=== PATIENT | female | born 1960 | race Caucasian/White ===

== ENCOUNTER 2020-09-04 05:53 | Outpatient (CLI) | payer BC ==
[~2020-09-04] VITALS: Ht 165.1 cm; Wt 72.7 kg
[~2020-09-04 05:53] MED LIST: ACET-461 PO; ALPR0.25 PO; CHOL100011 PO; ESTR2TAB PO; HYDR-700 PO; Hydrocodone Bit/Acetaminophen PO; LEVO500T69 PO; LORA10TA76 PO; PRD20T PO; PREDNISONE PO; RABE20TA PO; SERT50TA PO; SIMV40TA4 PO; ZOLP10TA5 PO; [UNRECOGNIZED DRUG - CODE] PO
[2020-09-04] MEDS ORDERED: GUAI-370 PO (13:44)
[2020-09-04] MEDS ORDERED: MULT-1029 PO (13:44)
[2020-09-04] MEDS ORDERED: OMEG-82 PO (13:44)
[2020-09-04] MEDS ORDERED: PHEN37.53 PO (13:44)
[2020-09-04] MEDS ORDERED: MULT-985 PO (13:44)
[2020-09-04] MEDS ORDERED: L.AC1CAP6 PO (13:44)
[2020-09-04] MEDS ORDERED: MAGN1TAB31 PO (13:44)
[2020-09-04] MEDS ORDERED: OMEP20TA7 PO (13:44)
[2020-09-04] MEDS ORDERED: ACET325T38 PO (13:44)
[2020-09-04] MEDS ORDERED: DIPH25CA79 PO (13:44)
[2020-09-04] MEDS ORDERED: MELO15TA14 PO (13:44)
== END 2020-09-04 13:51 | disposition home or self-care (01) ==
LOC: PREOP 05:53
PROVIDERS: ATTEND Podiatrist Foot & Ankle Surgery
DX: Z01.818 Encounter for other preprocedural examination (principal)

== ENCOUNTER 2020-09-11 05:56 | Day surgery (SDC) | payer BC ==
[~2020-09-11] VITALS: Ht 165 cm; Wt 72.7 kg
[2020-09-11] VITALS (10 sets, daily range): BP systolic 111–128; BP diastolic 68–94
[~2020-09-11 05:56] MED LIST changes: +ACET325T38 PO; +DIPH25CA79 PO; +GUAI-370 PO; +L.AC1CAP6 PO; +MAGN1TAB31 PO; +MELO15TA14 PO; +MULT-1029 PO; +MULT-985 PO; +OMEG-82 PO; +OMEP20TA7 PO; +PHEN37.58 PO
[2020-09-11] MEDS ORDERED: ceFAZolin INJECTION 1,000 MG in WATER (STERILE) FOR INJECTION 10 ML IV ONE (06:15)
[2020-09-11] MEDS: LACTATED RINGERS 1,000 ML IV PRN ×2 (06:23→08:43)
[2020-09-11] MEDS ORDERED: LIDOCAINE 1% INJ 20 ML 20 ML VIAL ONE (07:16)
[2020-09-11] MEDS ORDERED: BUPIVACAINE 0.5% 30 ML (SENSORCAINE) VIAL ONE (07:16)
[2020-09-11] MEDS ORDERED: fentaNYL INJ 100 MCG/2 ML AMP ONE (07:23)
[2020-09-11] MEDS ORDERED: proPOfol 200 MG/20 ML (DIPRIVAN) VIAL IV ONE (07:23)
[2020-09-11] MEDS ORDERED: MIDAZOLAM 2 MG/2 ML (VERSED) VIAL ONE (07:23)
[2020-09-11] MEDS ORDERED: ONDANSETRON 4 MG/2 ML (SDV) Z0FRAN ONE (07:23)
--- NOTE | 2020-09-11 07:47 | Progress Note-Pre Operative ---
Pre-Operative Progress Note H&P Reviewed The H&P was reviewed, patient examined and no changes noted. Date Seen by Provider: Sep 11, 2020 Time Seen by Provider: 07:46 Date H&P Reviewed: Sep 11, 2020 Time H&P Reviewed: 07:46 Pre-Operative Diagnosis: Plantar Fasciitis, right REYMUNDO LAND DPM Sep 11, 2020 07:47
[2020-09-11] MEDS ORDERED: SEVOFLURANE (ULTANE) 15 ML INHAL SOLN ONE (08:27)
--- NOTE | 2020-09-11 08:32 | Progress Note-Post Operative ---
Post-Operative Progess Note Surgeon (s)/Rug Dyer (s) Surgeon REYMUNDO LAND DPM Rug Dyer: none Pre-Operative Diagnosis Plantar Fasciitis, right Post-Operative Diagnosis same Procedure & Operative Findings Date of Procedure 09/11/20 Procedure Performed/Findings Endoscopic Plantar Fascial release, right Anesthesia Type General Estimated Blood Loss Estimated blood loss (mL): minimal Specimens/Packing Specimens Removed none REYMUNDO LAND DPM Sep 11, 2020 08:32
[2020-09-11] MEDS ORDERED: ACHD5005 PO (08:34)
[2020-09-11] MEDS ORDERED: HYDROcodone/APAP 5 MG/325 MG (LORTAB) TAB PO PRN (08:45)
[2020-09-11] MEDS ORDERED: LACTATED RINGERS 1,000 ML IV SCH (08:45)
--- NOTE | 2020-09-11 10:11 | OPERATIVE REPORT ---
DATE OF SERVICE: 09/11/2020 SURGEON: Sabrina Land DPM. PREOPERATIVE DIAGNOSIS: Plantar fasciitis, right. POSTOPERATIVE DIAGNOSIS: Plantar fasciitis, right. PROCEDURE: Endoscopic plantar fascial release, right. WOUND CLASS: Clean. ANESTHESIA: General. HEMOSTASIS: Pneumatic thigh tourniquet at 250 mmHg. INDICATIONS: This 60-year-old female presents complaining of chronic pain to her right heel. Conservative therapy is met with unsatisfactory results and the patient is agreeable to surgical intervention after risks and complications were discussed at length. No guarantees were extended to the patient and she is willing to proceed. DESCRIPTION OF PROCEDURE: The patient was brought back to the operating table, placed in secure supine position. Appropriate timeout was performed. A pneumatic thigh tourniquet was placed on the right lower extremity over several layers of padding. The right foot was then prepped and draped in normal sterile manner. The right foot was then elevated, allowed to exsanguinate after which the tourniquet was inflated to 250 mmHg. Attention was then directed to the medial aspect of the right heel where a 0.5 cm vertical incision was created. The location was preoperatively determined from measurements from the x-ray. The incision was deepened in the same plane with blunt dissection. Utilizing a probe an inferior aspect of the plantar fascia was from the overlying adipose tissue. Next, an obturator and cannula were introduced into the medial incision along the inferior aspect of the plantar fascia tenting the lateral skin where a second incision was created 0.5 cm vertical incision, allowing the obturator and cannula to pass through the lateral aspect of the foot. The cannula was held in place and the obturator was withdrawn after which a 3 mm camera was introduced into the lateral portal visualizing the inferior aspect of the plantar fascia. A hook blade was utilized through the medial portal to release the medial third of the plantar fascia. During this procedure, palpation of the mid arch plantar fascia noted significant reduction of tension to the medial band. Next, a triangular blade was introduced through the medial portal releasing any additional fibers necessary to complete the procedure. This was done under direct visualization. As I said before, there was excellent tension release to the plantar fascia throughout this procedure. The instrumentation was withdrawn from the cannula after which the wound was flushed with copious amounts of normal saline. The cannula was then withdrawn from the foot. The incisions were recoapted utilizing 4-0 Prolene in a horizontal mattress type stitch. Postoperative injection consisted of 10 mL of 0.5% Marcaine infused in a local administration to and surgical sites. Postoperative injection also included 10 mg of dexamethasone to the medial portion of the plantar fascia at the surgical site. Postoperative dressing consisted of Betadine soaked Adaptic, sterile 4 x 4, sterile Kerlix all secured with a Coban wrap. Once the tourniquet was released, appropriate cap refill time was noted to all digits of the right foot. The patient tolerated the procedure well and was transported to the recovery room with vital signs stable. Postoperative instructions were given to the patient. She is to be nonweightbearing for the next 24 hours, then partial weightbearing to tolerance with crutches. She was given a prescription for hydrocodone postoperatively. We will see her back in the office in 10 days' period of time or sooner if necessary. Job ID: [id number] DocumentID: [id number] Dictated Date: 09/11/2020 08:44:16 Video Poker [place] Date: 09/11/2020 10:11:03 Dictated By: SABRINA LAND DPM
--- NOTE | 2020-09-11 10:59 | Physical Therapy Ortho Eval ---
PT Orthopedic Evaluation Type of Surgery Plantar Fasciitis, right Prior Level of Function Current Living Status: Significant Other Locomotion (Upon Admit): Independent Established Durable Medical Eq: Crutches Subjective Entry Into Home: Level Entry Motor Control Motor Control: Motor Control WNL ROM ROM: WFL, except focal deficit Strength Strength: WFL Transfer SCALE: Activities may be completed with or without assistive devices. 9-Rdgncbplhc-pbdvnlp completes the activity by him/herself with no assistance from a helper. 5-Set-up or Clean-up Assistance-helper sets up or cleans up; patient completes activity. [place] assists only prior to or following the activity. 4-Supervision or Touching Assistance-helper provides verbal cues and/or touching/steadying and/or contact guard assistance as patient completes activity. Assistance may be provided throughout the activity or intermittently. 3-Partial/Moderate Assistance-helper does LESS THAN HALF the effort. [place] lifts, holds or supports trunk or limbs, but provides less than half the effort. 2-Substantial/Maximal Assistance-helper does MORE THAN HALF the effort. [place] lifts or holds trunk or limbs and provides more than half the effort. 8-Drqzhuulv-fwdkmz does ALL the effort. Patient does none of the effort to complete the activity. Or, the assistance of 2 or more helpers is required for the patient to complete the activity. If activity was not attempted, code reason: 7-Patient Refused. 9-Not Applicable-not attempted and the patient did not perform the activity before the current illness, exacerbation or injury. 10-Not Attempted due to Environmental Limitations-(lack of equipment, weather restraints, etc.). 88-Not Attempted due to Medical Conditions or Safety Concerns. Transfers (B, C, W/C) (QC): 6 Gait Gait Assistive Device: Crutches Right Lower Extremity: Right Weight Bearing Status RLE: Non Weight Bearing Left Lower Extremity: Left Weight Bearing Status LLE: Full Weight Bearing Other Weight Bearing Inst.: No weight to the right foot for the first 24 hours, then partial weight Gait (QC): 4 (CGA) Distance (QC): 3=150 ft Distance: 150' Gait Level of Assist: 4 (CGA) Treatment Rendered Treatment: Gait Train Assessment/Goals Goal Time Frame: 1 Visit Safe Ambulation: Yes Plan Treatment Plan: Discharge PT/Family Agrees to Plan: Yes Time Time In: 1040 Time Out: 1049 Total Billed Treatment Time: 9 Billed Treatment Time 1 visit EVLowC 9 min SUPRIYA PEREZ PT Sep 11, 2020 10:59
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
--- OUTSIDE RECORDS SUMMARY | 2020-09-15 14:31 | XMS REPORT | Clinical Summary ---
Author Author [facility] Address Unknown Phone Unavailable Care Team Providers Care Interlocker Name Role Phone PCP Unavailable Allergies Comments Active Allergy Reactions Severity Noted Date unknown TORADOL Ketorolac Tromethamine unknown KETEK Telithromycin Medications End Date Status Medication Sig Dispensed Refills Start Date Active omeprazole (PRILOSEC OTC) One orally 0 0 20 MG tablet daily 3 Active zolpidem (AMBIEN) 5 MG One orally at 0 0 0 tablet bedtime as 3 needed for insomnia Active loratadine (CLARITIN) 10 One orally 0 0 0 MG tablet daily as 3 needed for allergies Active Cholecalciferol (D 1000) take 2 by 0 06/13 1000 UNITS CAPS Oral route 1 every day Active DULoxetine (CYMBALTA) 30 One orally 0 0 0 MG capsule daily (pt. is 3 actually taking 90MG) Active .reconcile (MEDICATION No Sig 1 0 LIST IMPORTED) 3 Active Problems Not on file Family History Medical History Relation Name Comments Other Other Father - Cause of D eath:ID Relation Name Status Comments Father (Age 84) Other Social History Date Tobacco Use Types Packs/Day Years Used Never Smoker Sex Assigned at Date Recorded Not on file Last Filed Vital Signs Reading Time Taken Comments Vital Sign - - Blood Pressure - - Pulse - - Temperature - - Respiratory Rate - - Oxygen Saturation - - Inhaled Oxygen Concentration 67.1 kg (148 lb) 12/14/2009 11:51 AM CDT Weight 156 cm (5' 1.42") 03/19/2009 10:16 AM PEDIATRICIAN/MEDICAL DOCTOR Height 27.58 03/19/2009 10:16 AM PEDIATRICIAN/MEDICAL DOCTOR Body Mass Index Plan of Treatment Health Maintenance Due Date Last Done Comments COVID-19 Vaccine (1) 1972 Hepatitis C Screening 1978 DTaP,Tdap,and Td Vaccines 05/20/1979 (1 - Tdap) MMR Vaccines-Adult 05/20/1979 Cervical Cancer Screening 1981 Breast Cancer 2010 Screening-Mammogram Colon Cancer Screening 2010 Zoster Vaccine (1 of 2) 2010 Influenza Vaccine (#1) 2020 Pneumo-Vaccine: 65+Yrs (1 2025 of 1 - PPSV23) HIB Vaccines Aged Out No longer eligible based on patient's age to complete this topic IPV Vaccines Aged Out No longer eligible based on patient's age to complete this topic Meningococcal Vaccine Aged Out No longer eligib le based on patient's age to complete this topic Pneumo-Vaccine: Peds (0-5 Aged Out No longer el igible based on patient's age to Yrs) & At-Risk Patients complete this topic (6-64 Yrs) Rotavirus Vaccines Aged Out No longer eligible based on patient's age to complete this topic Results Not on filefrom Last 3 Months
--- OUTSIDE RECORDS SUMMARY | 2020-09-15 14:32 | XMS REPORT | Clinical Summary ---
Author Author Admin, Supriya Zuniga Organization [facility] Address Unknown Phone Unavailable Allergies, Adverse Reactions, Alerts Allergy Name Reaction Description Start Date Severity Status Pr ovider TORADOL Critical Active Nereyda Lucke KETEK 01/19/2004 Critical Active Nereyda Lucke Conditions or Problems Problem Name Problem Code Onset Date Status Entry Date Provider Comment Standard Description Annotate HYPERLIPIDEMIA 272.4 Refinement Misty Yoo LP N Other and unspecified hyperlipidemia Other hyperlipidemia 272.4 Inactive Ashley Yang APRN Other and unspecified hyperlipidemia Hyperlipidemia 272.4 Active Ashley Yang APRN Other and unspecified hyperlipidemia ABNORMAL WEIGHT GAIN 783.1 Resolved Wayne Hernandez A Abnormal weight gain ALLERGIC RHINITIS 477.9 Resolved Lois Leos APRN Allergic rhinitis, cause unspecified OSTEOARTHRITIS 715.90 Active Wayne YANG Osteoarthrosis, unspecified whether generalized or localized, involving unspecified site FH DIABETES V18.0 Active Wayne YANG Fam javon history of diabetes mellitus FAMILY HISTORY OF ALCOHOLISM V61.41 Active Wayne YANG Alcoholism in family SINUSITIS 473.9 Resolved Lois Leos APRN Unspecified sinusitis (chronic) WHEEZING 786.07 Resolved Lois Leos APRN Wheezing UPPER RESPIRATORY INFECTION, ACUTE 465.9 Resolved 2 Lois Leos APRN Acute upper respiratory infections of un specified site NEED FOR DESENSITIZATION TO ALLERGENS V07.1 Resolved Wayne YANG Need for desensitization to allergens NEED FOR DESENSITIZATION TO ALLERGENS V07.1 Resolved Ashley Yang APRN Need for desensitization to allergens ANXIETY DEPRESSION 300.4 Refinement Wayne Hernandez A Dysthymic disorder OTHER MIXED ANXIETY DISORDERS 300.4 Active 11/10 Ashley Yang APRN Dysthymic disorder OBESITY 278.00 Resolved Wayne YANG Obe sity, unspecified MENOPAUSE, SURGICAL 627.4 Active Wayne YANG Symptomatic states associated with artificial menopause CONTACT DERMATITIS DUE TO POISON ARANZA 692.6 Resolved Lois Leos APRN Contact dermatitis and other eczema due to plants [except food] NEED PROPHYLACTIC VACCINATION&INOCULATION FLU V04.81 Resolved Wayne YANG Need for prophylacti c vaccination and inoculation against influenza GERD 530.81 Resolved Lois Leos APRN E sophageal reflux LONG-TERM (CURRENT) USE OF OTHER MEDICATIONS V58.69 6 Resolved Wayne YANG Long-term (current) use of other medications KNEE PAIN, RIGHT 719.46 Resolved Wayne YANG Pain in joint involving lower leg KNEE PAIN, RIGHT 719.46 Active Supriya Huston RM A Pain in joint involving lower leg NECK PAIN 723.1 Resolved Wayne YANG C ervicalgia NECK PAIN, CHRONIC 723.1 Active Wayne YANG Cervicalgia DEGENERATIVE DISC DISEASE, CERVICAL SPINE 722.4 Resol burak Wayne YANG Degeneration of cervical intervertebral disc SKIN TAG 701.9 Resolved Wayne YANG Un specified hypertrophic and atrophic conditions of skin G E R D 530.81 Resolved Lois Leos APRN Esop hageal reflux CANDIDIASIS OF SKIN AND NAILS 112.3 Resolved 05/03 Wayne YANG Candidiasis of skin and nails AFTERCARE FOLLOW SURGERY MUSCULOSKEL SYSTEM NEC V58.78 03/22 Resolved Wayne Harms PA Aftercare following surgery of the musculoskeletal system, NEC PHARYNGITIS 462 Resolved Wayne Moon PA Acute pharyngitis OTHER SCREENING MAMMOGRAM V76.12 Resolved Wayne conley PA Other screening mammogram DYSPAREUNIA, MILD 625.0 Resolved Wayne Harms PA Dyspareunia NEED FOR DESENSITIZATION TO ALLERGENS V07.1 Resolved Wayne Moon PA Need for desensitization to allergens NEED FOR DESENSITIZATION TO ALLERGENS V07.1 Active Lavinia Matute MA Need for desensitization to allergens CONTACT DERMATITIS DUE TO POISON ARANZA 692.6 Resolved Wayne Moon PA Contact dermatitis and other eczema due to plants [except food] Sinusitis, chronic 473.9 Resolved Ashley MONZON RN Unspecified sinusitis (chronic) Myalgia 729.1 Resolved Wayne Moon PA Ange lgia and myositis, unspecified Rheumatoid arthritis 714.0 Resolved Wayne Moon P A Rheumatoid arthritis Diarrhea 787.91 Resolved Wayne Harms PA Di arrhea Seasonal allergies 477.9 Active Wayne Harms PA Allergic rhinitis, cause unspecified Finger pain 729.5 Resolved Wayne Harms PA Pain in limb Tenosynovitis, hand/wrist NEC 727.05 Resolved 06/15 Wayen Harms PA Other tenosynovitis or hand and wrist NEED FOR PROPHYLACTIC VACCINATION AND INOCULATION, INFLUENZA V04 .81 Resolved Wayne Harms PA Need for prophyl actic vaccination and inoculation against influenza NEED FOR PROPHYLACTIC VACCINATION AGAINS T STREPTOCOCCUS PNEUMONIAE (PNEUMOCOCCUS) V03.82 Resolved Wayne Harms PA Need for prophylactic vaccination against Streptococcus pneumoniae [pneumococcus] Knee pain, left 719.46 Resolved Wayne Harms PA Pain in joint involving lower leg Chondromalacia patella, 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 Inactive 06/13 Pushpa Vaughn Chondromalacia of patella Chondromalacia patella, left 717.7 Resolved Wayne Red PA Chondromalacia of patella Allergic rhinitis, chronic 477.9 Resolved Wayne H arms PA Allergic rhinitis, cause unspecified High risk meds V58.69 Resolved Wayne Red PA Long-term (current) use of other medications Need for prophylactic vaccination and inoculation against in fluenza V04.81 Resolved Wayne Red PA Need for proph ylactic vaccination and inoculation against influenza 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 Wayne H arms PA Postsurgical arthrodesis status Onychomycosis -dermatophytosis, nail 110.1 Resolved Wayne Red PA Dermatophytosis of nail Skin tags; irritated/inflammed 701.9 Resolved 06/15 Wayne Red PA Unspecified hypertrophic and atrophic co nditions of skin Cough 786.2 Resolved Wayne Red PA Cou gh Runny nose 472.0 Resolved Wayne Red PA Chronic rhinitis Runny nose 472.0 Resolved Ashley Yang APRN Chronic rhinitis Influenza like illness 487.1 Resolved Wayne Red PA Influenza with other respiratory manifestations Seasonal allergies 477.9 Active Wayne Red PA Allergic rhinitis, cause unspecified Acute maxillary sinusitis 461.0 Resolved Jenny Yang APRN Acute maxillary sinusitis Preventive health care V70.0 Resolved Ashley serrano APRN Routine general medical examination at a health care facility Well women exam V72.3 Resolved Ashley Yang APRN Special investigations and examinations - Gynecological examination Pruritus vulvae Resolved Ashley Yang APRN Pruritus vulvae Active Ashley Yokum DIRECTOR OF ACQUISITIONS Screening mammogram V76.12 Resolved Ashley Yokum A PRN Other screening mammogram Sinusitis, acute maxillary 461.0 Inactive 7 Ashley Yokum DIRECTOR OF ACQUISITIONS Acute maxillary sinusitis Diarrhea, acute 787.91 Resolved Ashley Yokum DIRECTOR OF ACQUISITIONS Diarrhea Vaginal candidiasis 112.1 Resolved Ashley Yokum A PRN Candidiasis of vulva and vagina Accidental fall E888.9 Resolved Ashley Yokum DIRECTOR OF ACQUISITIONS Unspecified fall Contusion of left hand, initial encounter 923.20 Resol burak Ashley Yokum DIRECTOR OF ACQUISITIONS Contusion of hand(s) Contusion of right upper arm, subsequent encounter V58.89 201 09/14/21 Resolved Ashley Yokum DIRECTOR OF ACQUISITIONS Encounter for other specified a ftercare Ganglion cyst of left wrist 727.41 Active Derrick Younger MD Ganglion of joint Body Mass Index 31.0-31.9 Adult Resolved 2017 Ashley Yokum DIRECTOR OF ACQUISITIONS Body Mass Index 31.0-31.9, adult Plantar fasciitis 728.71 Active Ashley Yokum DIRECTOR OF ACQUISITIONS Plantar fascial fibromatosis Bronchitis, acute 466.0 Inactive Ashley Yokum APR N Acute bronchitis Body Mass Index 30.0-30.9 Adult Resolved 2017 Ashley Yokum DIRECTOR OF ACQUISITIONS Body Mass Index 30.0-30.9, adult Allergic conjunctivitis, bilateral 372.14 Resolved 2 Ashley Yokum DIRECTOR OF ACQUISITIONS Other chronic allergic conjunctivitis Skin tags; irritated/inflammed 701.9 Resolved 11/10 Ashley Yokum DIRECTOR OF ACQUISITIONS Unspecified hypertrophic and atrophic co nditions of skin Body Mass Index 31.0-31.9 Adult Refinement 2017 Ashley Yokum DIRECTOR OF ACQUISITIONS Body Mass Index 31.0-31.9, adult BMI 30-30.9 Refinement Ashley Yokum DIRECTOR OF ACQUISITIONS Body Mass Index 31.0-31.9, adult BMI 31-31.9 Refinement Ashley Yokum DIRECTOR OF ACQUISITIONS Body Mass Index 31.0-31.9, adult BMI 32-32.9 Refinement Lois Faith RN Body Mass Index 31.0-31.9, adult BMI 31-31.9 Active Viviana Rubio APRN-Julieta Body Mass Index 31.0-31.9, adult Major depression, recurrent, moderate 296.32 Active Ashley Yokum DIRECTOR OF ACQUISITIONS Major depressive disorder, recurrent epi sode, moderate degree Obesity Class I (BMI 30-34.9) Active Ashley Y okum DIRECTOR OF ACQUISITIONS Obesity, unspecified Nausea and vomiting 787.01 Resolved Ashley Yokum A PRN Nausea with vomiting Gastroenteritis acute 558.9 Resolved Ashley Yokum DIRECTOR OF ACQUISITIONS Other and unspecified noninfectious gastroenteritis and colitis GERD 530.81 Active Ashley Yokum DIRECTOR OF ACQUISITIONS E sophageal reflux Joint pain 719.40 Resolved Ashley Yokum DIRECTOR OF ACQUISITIONS Pain in joint, site unspecified Preventive health care, adult V70.0 Inactive / Ashley Yokum DIRECTOR OF ACQUISITIONS Routine general medical examination at a health care facility Blood in urine 599.70 Resolved Ashley Yokum DIRECTOR OF ACQUISITIONS Hematuria, unspecified Other abnormal findings in urine Resolved Ashley Yokum DIRECTOR OF ACQUISITIONS Urinary tract infection 599.0 Inactive Ashley Yok um DIRECTOR OF ACQUISITIONS Urinary tract infection, site not specified Chafing of skin 709.8 Resolved Ashley Yokum DIRECTOR OF ACQUISITIONS Other specified disorders of skin Preventive care V70.0 Active Supriya Betzaida A Routine general medical examination at a health care facility Gynecological examination, routine V72.3 Inactive 2 Ashley Yokum DIRECTOR OF ACQUISITIONS Special investigations and e xaminations - Gynecological examination Near syncope 780.2 Resolved Ashley Yokum DIRECTOR OF ACQUISITIONS Syncope and collapse Lightheadedness 780.4 Resolved Ashley Yokum DIRECTOR OF ACQUISITIONS Dizziness and giddiness Headache 784.0 Resolved Ashley Yokum DIRECTOR OF ACQUISITIONS Headache Sore throat 462 Resolved Ashley Yokum DIRECTOR OF ACQUISITIONS Acute pharyngitis Sinusitis - acute 461.9 Resolved Ashley Yokum APR N Acute sinusitis, unspecified Tired all the time 780.79 Resolved Ashley Yokum AP RN Other malaise and fatigue Fatigue 780.79 Inactive Ashley Yokum DIRECTOR OF ACQUISITIONS Other malaise and fatigue Preoperative examination V72.84 Inactive Conchis hi Yokum DIRECTOR OF ACQUISITIONS Preoperative examination, unspecified Skin lesion 709.9 Inactive Ashley Yokum DIRECTOR OF ACQUISITIONS Unspecified disorder of skin and subcutaneous tissue ALLERGIC RHINITIS ICD-477.9 Inactive Lois Angelo mendieta DIRECTOR OF ACQUISITIONS SINUSITIS ICD-473.9 Inactive Lois Loes DIRECTOR OF ACQUISITIONS 2012 WHEEZING ICD-786.07 Inactive Lois Leos DIRECTOR OF ACQUISITIONS 2012 UPPER RESPIRATORY INFECTION, ACUTE ICD-465.9 I nactive Lois Leos DIRECTOR OF ACQUISITIONS NEED FOR DESENSITIZATION TO ALLERGENS ICD-V07.1 8 Inactive Ashley Yokum DIRECTOR OF ACQUISITIONS OBESITY ICD-278.00 Inactive Wayne Harms PA CONTACT DERMATITIS DUE TO POISON ARANZA ICD-692.6 Inactive Lois Leos DIRECTOR OF ACQUISITIONS NEED PROPHYLACTIC VACCINATION&INOCULATION FLU ICD-V04.81 Inactive Wayne Harms PA GERD ICD-530.81 Inactive Lois Leos DIRECTOR OF ACQUISITIONS 03/22 LONG-TERM (CURRENT) USE OF OTHER MEDICATIONS ICD-V58.69 Inactive Wayne Harms PA ABNORMAL WEIGHT GAIN ICD-783.1 Inactive Wayne H arms PA DEGENERATIVE DISC DISEASE, CERVICAL SPINE ICD-722.4 Inactive Wayne Harms PA SKIN TAG ICD-701.9 Inactive Wayne Harms PA G E R D ICD-530.81 Inactive Lois Leos DIRECTOR OF ACQUISITIONS CANDIDIASIS OF SKIN AND NAILS ICD-112.3 Inacti ve Wayne Harms PA AFTERCARE FOLLOW SURGERY MUSCULOSKEL SYSTEM NEC ICD-V58.78 Inactive Wayne Harms PA PHARYNGITIS ICD-462 Inactive Wayne Harms PA 05/03 OTHER SCREENING MAMMOGRAM ICD-V76.12 Inactive Wayne Harms PA DYSPAREUNIA, MILD ICD-625.0 Inactive Wayne Harm s PA CONTACT DERMATITIS DUE TO POISON ARANZA ICD-692.6 Inactive Wayne Harms PA NECK PAIN ICD-723.1 Inactive Wayne Harms PA 06/15 Myalgia ICD-729.1 Inactive Wayne Harms PA Rheumatoid arthritis ICD-714.0 Inactive Wayne H arms PA Diarrhea ICD-787.91 Inactive Wayne Harms PA 06/15 Finger pain ICD-729.5 Inactive Wayne Harms PA 2015 Tenosynovitis, hand/wrist NEC ICD-727.05 Inacti ve Wayne Harms PA NEED FOR PROPHYLACTIC VACCINATION AND INOCULATION, INFLUENZA ICD-V04.81 Inactive Wayne Harms PA NEED FOR PROPHYLACTIC VACCINATION AGAINS T STREPTOCOCCUS PNEUMONIAE (PNEUMOCOCCUS) ICD-V03.82 Inactive Wayne Harms PA Knee pain, left ICD-719.46 Inactive Wayne Harms PA Chondromalacia patella, 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 Inactiv e Wayne Harms PA Allergic rhinitis, chronic ICD-477.9 Inactive Wayne Harms PA High risk meds ICD-V58.69 Inactive Wayne Harms PA Need for prophylactic vaccination and inoculation against in fluenza ICD-V04.81 Inactive Wayne Harms PA Onychomycosis -dermatophytosis, nail ICD-110.1 Inactive Wayne Harms PA Skin tags; irritated/inflammed ICD-701.9 Inact rancho Wayne Harms PA Cough ICD-786.2 Inactive Wayne Harms PA Chondromalacia patella, 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 Inacti ve Beatriz Bobbi Runny nose ICD-472.0 Inactive Ashley Yokum DIRECTOR OF ACQUISITIONS Influenza like illness ICD-487.1 Inactive Wayne Moon PA Acute maxillary sinusitis ICD-461.0 Inactive Ashley Yokum DIRECTOR OF ACQUISITIONS Preventive health care ICD-V70.0 Inactive Jenny mo Yokum DIRECTOR OF ACQUISITIONS Well women exam ICD-V72.3 Inactive Ashley Yokum DIRECTOR OF ACQUISITIONS Sinusitis, chronic ICD-473.9 Inactive Ashley Yo yoni DIRECTOR OF ACQUISITIONS Screening mammogram ICD-V76.12 Inactive Ashley Yokum DIRECTOR OF ACQUISITIONS Sinusitis, acute maxillary ICD-461.0 Inactive Ashley Yokum DIRECTOR OF ACQUISITIONS Diarrhea, acute ICD-787.91 Inactive Ashley Yoеленаu m DIRECTOR OF ACQUISITIONS Vaginal candidiasis ICD-112.1 Inactive Ashley coppolaum DIRECTOR OF ACQUISITIONS Accidental fall ICD-E888.9 Inactive Ashley Yoku m DIRECTOR OF ACQUISITIONS Contusion of left hand, initial encounter ICD-923.20 Inactive Ashley Yokum DIRECTOR OF ACQUISITIONS Contusion of right upper arm, subsequent encounter ICD-V58.89 Inactive Ashley Yokum DIRECTOR OF ACQUISITIONS Body Mass Index 31.0-31.9 Adult Inac tive Ashley Yokum DIRECTOR OF ACQUISITIONS Bronchitis, acute ICD-466.0 Inactive Ashley Yok um DIRECTOR OF ACQUISITIONS Body Mass Index 30.0-30.9 Adult Inac tive Ashley Yokum DIRECTOR OF ACQUISITIONS Allergic conjunctivitis, bilateral ICD-372.14 I nactive Ashley Yokum DIRECTOR OF ACQUISITIONS Skin tags; irritated/inflammed ICD-701.9 Inact rancho Ashley Yokum DIRECTOR OF ACQUISITIONS Nausea and vomiting ICD-787.01 Inactive Ashley Yokum DIRECTOR OF ACQUISITIONS Gastroenteritis acute ICD-558.9 Inactive Conchis hi Yokum DIRECTOR OF ACQUISITIONS Joint pain ICD-719.40 Inactive Ashley Yokum APR N Preventive health care, adult ICD-V70.0 Inacti ve Ashley Yokum DIRECTOR OF ACQUISITIONS Blood in urine ICD-599.70 Inactive Ashley Yokum DIRECTOR OF ACQUISITIONS Other abnormal findings in urine Mara ctive Ashley Yokum DIRECTOR OF ACQUISITIONS Urinary tract infection ICD-599.0 Inactive K athi Yokum DIRECTOR OF ACQUISITIONS Chafing of skin ICD-709.8 Inactive Ashley Yokum DIRECTOR OF ACQUISITIONS Gynecological examination, routine ICD-V72.3 I nactive Ashley Yokum DIRECTOR OF ACQUISITIONS Near syncope ICD-780.2 Inactive Ashley Yokum AP RN Lightheadedness ICD-780.4 Inactive Ashley Yokum DIRECTOR OF ACQUISITIONS Headache ICD-784.0 Inactive Ashley Yokum DIRECTOR OF ACQUISITIONS 2020 Sore throat ICD-462 Inactive Ashley Yang DIRECTOR OF ACQUISITIONS 02/17/17 Sinusitis - acute ICD-461.9 Inactive Ashley peacock DIRECTOR OF ACQUISITIONS Tired all the time ICD-780.79 Inactive Ashley gutierrez DIRECTOR OF ACQUISITIONS Fatigue ICD-780.79 Inactive Ashley Yang DIRECTOR OF ACQUISITIONS 2020 Preoperative examination ICD-V72.84 Inactive Ashley Yang DIRECTOR OF ACQUISITIONS Skin lesion ICD-709.9 Inactive Ashley Yang APR N Medication List Medication Instructions Start Date Stop Date Generic Name NDC Status Provider Patient Instruction ALPRAZOLAM 0.25 MG TABS TAKE 1 TO 2 TABLETS BY MOUTH THREE TIMES DAILY NEEDED ALPRAZOLAM 76260428267 Active Shanelleroyce Rivera RN Active PHENTERMINE HCL 37.5 MG TABS 1 TAB IN MORING. TAKE 30 MIN BEFORE BREAKFAST OR 2 HRS AFTER BREAKFAST PHENTERMINE HCL 54127718132 Active Ashley Yang ELAINA Active ADK [id number] UNIT-MCG ORAL CAPSULE 1 daily 2 VITAMINS A D K 27029179367 No Longer Active Ashley Yang ELAINA Active EQ LORATADINE 10 MG ORAL TABLET TAKE 1 TABLET BY MOUTH ONCE DAILY NEEDED FOR ALLERGIES LORATADINE 36210596658 Active Shanelle Rivera RN Active MUCINEX D 60-600 MG ORAL TABLET EXTENDED RELEASE 12 HO UR 1 po BID PRN Congestion PSEUDOEPHEDRINE-GUAIFENESIN 77699816530 Active Ashley Yang ELAINA Active ZYRTEC ALLERGY 10 MG ORAL CAPSULE 1qd CETIR IZINE HCL 89419230351 No Longer Active Ashley Yang ELAINA Active HAIR, SKIN, NAILS VITAMINS take 1 tab by mouth 2x a day HAIR, SKIN, NAILS VITAMINS Active Ashley Yang ELAINA Active CENTRUM SILVER FOR WOMEN OVER 50 1 tab by mouth by day. CENTRUM SILVER FOR WOMEN OVER 50 Active Ashley Yang DIRECTOR OF ACQUISITIONS Active VITAMIN D3 1000 UNIT ORAL CAPSULE 1 po qd CH OLECALCIFEROL 47158512919 Active Ashley Yang DIRECTOR OF ACQUISITIONS Active PREDNISONE 20 MG ORAL TABLET Take 2 tablets by mouth d aily for 2 days then 1 tablet daily for 2 days. PREDNISONE 82140112999 No Longer Active Ashley Yang ELAINA Active MELOXICAM 15 MG ORAL TABLET TAKE 1 TABLET BY MOUTH IN THE MORNING 2 MELOXICAM 99986330709 Active Shanelle Rivera RN Active SIMVASTATIN 40 MG ORAL TABLET TAKE 1 TABLET BY MOUTH ONCE DA JAVON AT BEDTIME SIMVASTATIN 07801220980 Active Shanelle Rivera RN A ctive [id number]-WHEU ORAL TABLET MULT IPLE MINERALS 97590420022 Active Lois Faith RN Active SERTRALINE HCL 100 MG ORAL TABLET Take 1 tablet by mouth once da javon SERTRALINE HCL 03660727348 Active LARRY Murillo A ctive REGLAN 10 MG ORAL TABLET 1 po qid for bowels 3 METOCLOPRAMIDE HCL 66553368594 No Longer Active Ashley Yang ELAINA A ctive B-12 2500 MCG ORAL TABLET 1 daily CYANOCOBAL HUNT 80916517267 No Longer Active Ashley Merazmadonna DELANEY Active ESTRADIOL 2 MG TABS Take 1 tablet by mouth once daily ESTRADIOL 19540267377 Active Shanelle Rivera RN Active MACROBID 100 MG ORAL CAPSULE 1 cap by mouth twice daily NITROFURANTOIN MONOHYD MACRO 37598878386 No Longer Active Ashley Yang ELAINA Active FISH OIL + D3 9521-7084 MG-UNIT ORAL CAPSULE 1 dailly 4 FISH OIL-CHOLECALCIFEROL 29508426118 Active Ashley Yang ELAINA Acti ve PROAIR HFA 108 (90 BASE) MCG/ACT INHALATION AEROSOL SO LUTION 2 puffs four times a day as needed ALBUTEROL SULFATE 40631451503 No Long er Active Ashley Yokum DIRECTOR OF ACQUISITIONS Active ZITHROMAX Z-SANJANA 250 MG ORAL TABLET Take 2 tablets toda y and 1 each day till gone AZITHROMYCIN 80046899365 No Longer Active Ashley Yokum DIRECTOR OF ACQUISITIONS Active POLYTRIM 97063-9.1 UNIT/ML-% OPHTHALMIC SOLUTION 1 gtt to affected eye q3h x 7 days POLYMYXIN B-TRIMETHOPRIM 23635421410 No Longer Active Ashley Yokum DIRECTOR OF ACQUISITIONS Active IBUPROFEN 200 MG ORAL TABLET Take 3 tablets every 6hrs 201 09/17/15 IBUPROFEN 68556410861 No Longer Active Ashley Yokum DIRECTOR OF ACQUISITIONS Active DIFLUCAN 150 MG ORAL TABLET Take one tablet today and repeat in 72 hours FLUCONAZOLE 37639722564 No Longer Active Derrick cardenas MD Active DIFLUCAN 150 MG ORAL TABLET 1 by mouth for yeast 03/03 FLUCONAZOLE 19219267368 No Longer Active Ashley Yokum DIRECTOR OF ACQUISITIONS Active AUGMENTIN 875-125 MG ORAL TABLET Take one tablet twice a day with food AMOXICILLIN-POT CLAVULANATE 24034151115 No Longer Act rancho Ashley Yokum DIRECTOR OF ACQUISITIONS Active CALCIUM 600 + D 600-200 MG-UNIT ORAL TABLET Take one daily CALCIUM CARB-CHOLECALCIFEROL 82057988297 No Longer Active Ashley Yokum DIRECTOR OF ACQUISITIONS Active FLONASE 50 MCG/ACT NASAL SUSPENSION 1 spray each nostr il twice daily for allergies and runny nose FLUTICASONE PROPIONATE 31483822855 No Longer Active Ashley Yokum DIRECTOR OF ACQUISITIONS Active CLARITIN-D 12 HOUR 5-120 MG ORAL TABLET EXTENDED RELEA SE 12 HOUR Take one tablet BID as needed for allergies LORATADINE-PSEUDOEP HEDRINE 24219831784 No Longer Active Beth Nafgeeta FIELD RECORDER Active AMOXICILLIN-POT CLAVULANATE 875-125 MG ORAL TABLET 1 pill by mouth twice daily AMOXICILLIN-POT CLAVULANATE 41731902535 No Longer Act rancho Ashley Yang DIRECTOR OF ACQUISITIONS Active AMOXICILLIN 500 MG ORAL CAPSULE Take 1 capsule by mout h three times a day X 10 days AMOXICILLIN 64869282117 No Longer Active Wayne H arms PA Active PROBIOTIC DAILY ORAL CAPSULE Take one daily PROBIO TIC PRODUCT 18622525319 Active Wayne Harms PA Active TYLENOL 325 MG ORAL TABLET Take 2 every 6hrs prn A CETAMINOPHEN 35853069298 Active Wayne Harms PA Active ACETAMINOPHEN 500 MG ORAL TABLET prn RICH TAMINOPHEN 56689795023 No Longer Active Wayne Harms PA Active CLARITIN-D 12 HOUR 5-120 MG ORAL TABLET EXTENDED RELEA SE 12 HOUR Take one tablet bid LORATADINE-PSEUDOEPHEDRINE 09308461839 No Longe r Active Wayne Harms PA Active MOBIC 15 MG ORAL TABLET 1 tablet by mouth daily in am with PPI 2 MELOXICAM 42655021561 No Longer Active Wayne Harms PA Acti ve HYDROCORTISONE 2.5 % EXTERNAL CREAM Apply three times a day to affected area HYDROCORTISONE 33786826097 No Longer Active Wayne Harms PA Active VITAMIN D3 1000 UNIT ORAL TABLET Take two daily CHOLECALCIFEROL 62472120138 No Longer Active Wayne Harms PA Active PROBIOTIC ORAL CAPSULE Take one daily PROBIOTIC PRODUCT 20661934800 No Longer Active Wayne Harms PA Active GREEN TEA SLIM ORAL TABLET Take one daily [facility] PRODUCTS 75553983782 No Longer Active Wayne Harms PA Active BENZONATATE 200 MG ORAL CAPSULE Take one capsule three times a d ay BENZONATATE 13814444159 No Longer Active Wayne Harms PA Act rancho ZITHROMAX Z-SANJANA 250 MG ORAL TABLET 2 today, then 1 daily for 4 d ays AZITHROMYCIN 93900143269 No Longer Active Wayne Harms PA Ac tive ZITHROMAX 250 MG ORAL TABLET 2 po today, then 1 po q days 2-5 20 31/03/18 AZITHROMYCIN 11234422415 No Longer Active Beth Turner FIELD RECORDER Active OMEPRAZOLE 20 MG ORAL CAPSULE DELAYED RELEASE 1 tablet by mo [facility] daily OMEPRAZOLE 62911272314 Active Supriya Huston RMA Active ZITHROMAX Z-SANJANA 250 MG ORAL TABLET 2x1day,6a5cgab 2014 AZITHROMYCIN 39204843705 No Longer Active Wayne Harms PA Active FISH OIL 1200 MG ORAL CAPSULE One daily prn OME GA-3 FATTY ACIDS 65622941016 No Longer Active Wayne Harms PA Active CEPHALEXIN 250 MG ORAL CAPSULE Take one tablet qid 201 05/25/29 CEPHALEXIN 75346763281 No Longer Active Wayne Harms PA Active VITAMIN D3 1000 UNIT ORAL TABLET 1qd CHOLEC ALCIFEROL 56803783300 No Longer Active Wayne Harms PA Active B-12 2000 MCG ORAL TABLET 1qd CYANOCOBALAMI N 85485020248 No Longer Active Wayne Harms PA Active ACIPHEX 20 MG ORAL TABLET DELAYED RELEASE 1qd 10/28 RABEPRAZOLE SODIUM 38839376169 No Longer Active Wayne Harms PA Active HYDROCORTISONE 2.5 % EXTERNAL CREAM apply 3-4 times a day to affected area HYDROCORTISONE 20968351211 No Longer Active Wayne Harms PA Active MUCINEX 600 MG ORAL TABLET EXTENDED RELEASE 12 HOUR 2qd GUAIFENESIN 24461694218 No Longer Active Wayne Harms PA Active TUSSIONEX PENNKINETIC ER 10-8 MG/5ML ORAL SUSPENSION E XTENDED RELEASE 5ml po q12hr PRN Cough HYDROCOD POLST-CHLORPHEN POLST 5 2550453391 No Longer Active Wayne Harms PA Active ZITHROMAX 250 MG ORAL TABLET 2 po today, then 1 po q days 2-5 20 26/06/21 AZITHROMYCIN 42976629925 No Longer Active Wayne Harms PA Ac tive CLARITIN 10 MG ORAL TABLET one tablet daily THEO ATADINE 25459139789 No Longer Active Wayne Harms PA Active FLAGYL 500 MG ORAL TABLET 1 tablet by mouth three times daily 20 28/05/03 METRONIDAZOLE 00394087986 No Longer Active Wayne Harms PA A ctive CHERATUSSIN AC 100-10 MG/5ML ORAL SYRUP one teaspoon qid. 9 GUAIFENESIN-CODEINE 50920647089 No Longer Active Wayne Harms PA Act rancho VITAMIN D 1000 UNIT ORAL TABLET 1qd CHOLECA LCIFEROL 54220788925 No Longer Active Wayne Harms PA Active CYMBALTA 60 MG ORAL CAPSULE DELAYED RELEASE PARTICLES 1 cap by mouth daily DULOXETINE HCL 36883265446 No Longer Active Wayne Harms PA Active AMOXICILLIN 500 MG ORAL CAPSULE 2 caps tid for 10days AMOXICILLIN [id number] No Longer Active Wyane Harms PA Active CALCIUM + D 600-200 MG-UNIT TABS Take one by mouth daily CALCIUM CARBONATE-VITAMIN D 94966047665 No Longer Active Wayne Harms PA Active CENTRUM SILVER ADULT 50+ ORAL TABLET 1qd 2013 MULTIPLE VITAMINS-MINERALS [id number] No Longer Active Wayne Harms PA Active VENLAFAXINE HCL 75 MG ORAL TABLET 1tid VE NLAFAXINE HCL 21546981358 No Longer Active Wayne Harms PA Active CLARITIN 10 MG ORAL TABLET 1 tablet by mouth daily as needed for allergies LORATADINE 70286468483 No Longer Active Wayne Harms PA Acti ve HYDROCORTISONE 2.5 % EXTERNAL CREAM Apply four times a day to af fected area HYDROCORTISONE 14324602324 No Longer Active Wayne Harms PA Active ZITHROMAX 250 MG ORAL TABLET 2 po today, then 1 po q days 2-5 20 26/02/30 AZITHROMYCIN 73552280023 No Longer Active Wayne Harms PA Ac tive ZITHROMAX 250 MG ORAL TABLET 2 po today, then 1 po q days 2-5 20 27/02/16 AZITHROMYCIN 53961405787 No Longer Active Wayne Harms PA Ac tive CYMBALTA 30 MG ORAL CAPSULE DELAYED RELEASE PARTICLES 3 caps daily DULOXETINE HCL 98801087912 No Longer Active Wayne Harms PA Active CYMBALTA 60 MG ORAL CAPSULE DELAYED RELEASE PARTICLES one tablet daily, takes 30mg. with 60mg. to make 90 mg. DULOXETINE HCL 76580349417 No Longer Active Wayne Harms PA Active CYMBALTA 30 MG ORAL CAPSULE DELAYED RELEASE PARTICLES 1 daily wi th 60mg DULOXETINE HCL 12884770896 No Longer Active Wayne Harms PA Active ZITHROMAX 250 MG ORAL TABLET 2 po today, then 1 po q days 2-5 20 26/12/21 AZITHROMYCIN 00453271459 No Longer Active Ismael YANG Active PREDNISONE 20 MG ORAL TABLET 3tab x 2days,2tab x 2days ,1tab x 2days,1/2tab x 2days PREDNISONE 37434408009 No Longer Active Wayne Vera jarvis PA Active PREMARIN 0.625 MG ORAL TABLET Take one by mouth daily ESTROGENS CONJUGATED 00917264769 No Longer Active Wayne Harms PA Active ZITHROMAX 250 MG ORAL TABLET 2 po today, then 1 po q days 2-5 20 26/06/19 AZITHROMYCIN 27006890236 No Longer Active Nereyda Lucke Activ e OMEGA-3 1000 MG ORAL CAPSULE 2qd OMEGA-3 FA TTY ACIDS 76367240836 No Longer Active Wayne Harms PA Active BENADRYL ITCH STOPPING 1-0.1 % EXTERNAL CREAM prn DIPHENHYDRAMINE- ZINC ACETATE 25909388918 No Longer Active Wayne Harms PA Active LOTRISONE 1-0.05 % EXTERNAL CREAM Apply bid CLOTRIMAZOLE-BETAMETHASONE 86399925254 No Longer Active Wayne Harms PA Active ZITHROMAX Z-SANJANA 250 MG ORAL TABLET take as directed 20 26/04/19 AZITHROMYCIN 82551530336 No Longer Active Wayne Harms PA Active NYSTATIN 799344 UNIT/GM EXTERNAL POWDER Apply to affected areas BID NYSTATIN 79370639353 No Longer Active Wayne Harms PA Acti ve BENADRYL 25 MG ORAL CAPSULE prn DIPHENHYDRAMINE HCL 59816289384 Active Wayne Harms PA Active LOTRISONE 1-0.05 % EXTERNAL CREAM apply twice a day 20 25/02/17 CLOTRIMAZOLE-BETAMETHASONE 06100574665 No Longer Active Wayne Harms PA Active HYDROCODONE-ACETAMINOPHEN 5-325 MG ORAL TABLET 1-2 every 4hr s prn pain HYDROCODONE-ACETAMINOPHEN 81763950175 No Longer Activ e Wayne Red PA Active VICODIN 5-300 MG ORAL TABLET 1-2 tabs every 6hrs as needed for p ain HYDROCODONE-ACETAMINOPHEN 56431130701 No Longer Active Wayne Red PA Active BENADRYL 25 MG ORAL CAPSULE 1prn DIPHENHYDRA MINE HCL 37459154488 No Longer Active Jillina Frazell DIRECTOR OF ACQUISITIONS Active ROBITUSSIN DM 100-10 MG/5ML ORAL SYRUP 2 teaspoons four times a day DEXTROMETHORPHAN-GUAIFENESIN 25778347403 No Longer Active Jillina Frazell DIRECTOR OF ACQUISITIONS Active ACIPHEX 20 MG ORAL TABLET DELAYED RELEASE Take one by mouth daily RABEPRAZOLE SODIUM 88680435593 No Longer Active Jillina Frazell DIRECTOR OF ACQUISITIONS Active TUMS 500 MG ORAL TABLET CHEWABLE prn SADIQ CIUM CARBONATE ANTACID 16810369744 No Longer Active Jillina Frazell DIRECTOR OF ACQUISITIONS Active PEPTO-BISMOL 524 MG/30ML ORAL SUSPENSION prn 02/26 BISMUTH SUBSALICYLATE 95896765773 No Longer Active Jillina Frazell DIRECTOR OF ACQUISITIONS Active BACTRIM DS 800-160 MG ORAL TABLET 1bid SULFAMETHOXAZOLE-TRIMETHOPRIM 32240555379 No Longer Active Beth Naff FIELD RECORDER Active GAVISCON EXTRA RELIEF FORMULA CHEW prn A LUM HYDROXIDE-MAG CARBONATE CHEW 79618528611 Active Wayne Red PA Active DIFLUCAN 150 MG ORAL TABLET 1stat FLUCONAZOL E 99943019215 No Longer Active Wayne Red PA Active AUGMENTIN 875-125 MG ORAL TABLET 1 tab by mouth twice daily with food AMOXICILLIN-POT CLAVULANATE 83031061991 No Longer Act rancho Wayne Red PA Active FLUTICASONE PROPIONATE 50 MCG/ACT NASAL SUSPENSION 1 t o 2 sprays each nostril twice a day FLUTICASONE PROPIONATE 65190478124 No Lo nger Active Wayne Harms PA Active HYDROCORTISONE 2.5 % EXTERNAL CREAM apply 2-4 times a day, a s directed, prn HYDROCORTISONE 53621260998 No Longer Active Wayne Harms PA Active ZITHROMAX Z-SANJANA 250 MG ORAL TABLET A ZITHROMYCIN 42131649438 No Longer Active Wayne Harms PA Active SIMVASTATIN 40 MG ORAL TABLET one tablet daily SIMVASTATIN 43425310566 No Longer Active Misty Yoo FIELD RECORDER Active LOVASTATIN 40 MG ORAL TABLET Take one by mouth daily 12/11 LOVASTATIN 13893999599 No Longer Active Misty Yoo FIELD RECORDER Active PREDNISONE 20 MG ORAL TABLET 2 PO qd x 2d, 1 PO qd x 2d, 1/2 PO qd x 2d PREDNISONE 54211117263 No Longer Active Ismael silva PA Active ZITHROMAX 250 MG ORAL TABLET two tablets now and one daily x 4 d ays AZITHROMYCIN 88679087969 No Longer Active Misty Yoo LPN Active ZOLPIDEM TARTRATE 10MG TABS (ZOLPIDEM TARTRATE) 1 at bedtime as needed Active Supriya Huston RMA Active CLOBETASOL PROPIONATE 0.05 % EXTERNAL CREAM apply as directed CLOBETASOL PROPIONATE 29331357668 No Longer Active Wayne Harms PA A ctive CYMBALTA 30 MG ORAL CAPSULE DELAYED RELEASE PARTICLES takes 90mg qod alt with 60mg DULOXETINE HCL 78818577616 No Longer Active Wayne Harm s PA Active ZITHROMAX 250 MG ORAL TABLET 2 po today, then 1 po q days 2-5 20 12/24/14 AZITHROMYCIN 29025429344 No Longer Active Wayne Harms PA Ac tive TRIAMCINOLONE ACETONIDE 0.1 % EXTERNAL CREAM apply qid TRIAMCINOLONE ACETONIDE 33037034725 No Longer Active Wayne Harms PA Active ALPRAZOLAM 0.25 MG ORAL TABLET 1 tab three times a day 201 02/23/14 ALPRAZOLAM 12273251993 No Longer Active Wayne Harms PA Active ZOLPIDEM TARTRATE 5 MG ORAL TABLET 1 at bedtime as needed ZOLPIDEM TARTRATE 49891737989 No Longer Active Beth Turner FIELD RECORDER Active ALPRAZOLAM 0.25 MG ORAL TABLET 1 tab three times a day ALPRAZOLAM 0.25 MG ORAL TABLET 650566 ALPRAZOLAM Inactive TRIAMCINOLONE ACETONIDE 0.1 % EXTERNAL CREAM apply qid TRIAMCINOLONE ACETONIDE 0.1 % EXTERNAL CREAM 2218864 TRIAMCINOLONE A CETONIDE Inactive CYMBALTA 30 MG ORAL CAPSULE DELAYED RELEASE PARTICLES takes 90mg qod alt with 60mg CYMBALTA 30 MG ORAL CAPSULE DELAYED RELEA SE PARTICLES 649517 DULOXETINE HCL Inactive CLOBETASOL PROPIONATE 0.05 % EXTERNAL CREAM apply as directed CLOBETASOL PROPIONATE 0.05 % EXTERNAL CREAM 049231 CLOBETASOL PROPI KELVIN Inactive LOVASTATIN 40 MG ORAL TABLET Take one by mouth daily 2 LOVASTATIN 40 MG ORAL TABLET 342605 LOVASTATIN Inactive ZITHROMAX Z-SANJANA 250 MG ORAL TABLET 03/03 ZITHROMAX Z-SANJANA 250 MG ORAL TABLET 051001 AZITHROMYCIN Inactive HYDROCORTISONE 2.5 % EXTERNAL CREAM apply 2-4 times a day, a s directed, prn HYDROCORTISONE 2.5 % EXTERNAL CREAM 294367 HYDRO CORTISONE Inactive FLUTICASONE PROPIONATE 50 MCG/ACT NASAL SUSPENSION 1 t o 2 sprays each nostril twice a day FLUTICASONE PROPIONA TE 50 MCG/ACT NASAL SUSPENSION 5200115 FLUTICASONE PROPIONATE Inactive AUGMENTIN 875-125 MG ORAL TABLET 1 tab by mouth twice daily with food AUGMENTIN 875-125 MG ORAL TABLET AMOXICIL BLOSSOM-POT CLAVULANATE Inactive DIFLUCAN 150 MG ORAL TABLET 1stat DIFLUCAN 150 MG ORAL TABLET 392162 FLUCONAZOLE Inactive PEPTO-BISMOL 524 MG/30ML ORAL SUSPENSION prn PEPTO-BISMOL 524 MG/30ML ORAL SUSPENSION BISMUTH SUBSALICYLATE Inactive TUMS 500 MG ORAL TABLET CHEWABLE prn TUMS 500 MG ORAL TABLET CHEWABLE 224771 CALCIUM CARBONATE ANTACID Inactive ACIPHEX 20 MG ORAL TABLET DELAYED RELEASE Take one by mouth daily ACIPHEX 20 MG ORAL TABLET DELAYED RELEASE 204339 RABEPRAZOLE SODIUM Inactive ROBITUSSIN DM 100-10 MG/5ML ORAL SYRUP 2 teaspoons four times a day ROBITUSSIN DM 100-10 MG/5ML ORAL SYRUP DEXTROMET HORPHAN-GUAIFENESIN Inactive BENADRYL 25 MG ORAL CAPSULE 1prn BENADRYL 25 MG ORAL CAPSULE DIPHENHYDRAMINE HCL Inactive VICODIN 5-300 MG ORAL TABLET 1-2 tabs every 6hrs as needed for p ain VICODIN 5-300 MG ORAL TABLET HYDROCODONE-ACETAMI NOPHEN Inactive HYDROCODONE-ACETAMINOPHEN 5-325 MG ORAL TABLET 1-2 every 4hr s prn pain HYDROCODONE-ACETAMINOPHEN 5-325 MG ORAL TABLET 8 61672 HYDROCODONE-ACETAMINOPHEN Inactive LOTRISONE 1-0.05 % EXTERNAL CREAM apply twice a day 20 25/02/17 LOTRISONE 1- 0.05 % EXTERNAL CREAM CLOTRIMAZOLE-BETAMETHASONE Inactive NYSTATIN 433879 UNIT/GM EXTERNAL POWDER Apply to affected areas BID NYSTATIN 471670 UNIT/GM EXTERNAL POWDER 723128 NYSTATIN Inactive ZITHROMAX Z-SANJANA 250 MG ORAL TABLET take as directed 20 26/04/19 ZITHROMAX Z-SANJANA 250 MG ORAL TABLET 271496 AZITHROMYCIN Inact rancho LOTRISONE 1-0.05 % EXTERNAL CREAM Apply bid LOTRISONE 1- 0.05 % EXTERNAL CREAM CLOTRIMAZOLE-BETAMETHASONE Inactive BENADRYL ITCH STOPPING 1-0.1 % EXTERNAL CREAM prn BENADRYL ITCH STOPPING 1-0.1 % EXTERNAL CREAM DIPHENHYDRAMINE-ZINC ACETATE Inactive OMEGA-3 1000 MG ORAL CAPSULE 2qd OMEGA-3 1000 MG ORAL CAPSULE 429872 OMEGA-3 FATTY ACIDS Inactive ZITHROMAX 250 MG ORAL TABLET 2 po today, then 1 po q days 2-5 20 26/06/19 ZITHROMAX 250 MG ORAL TABLET 665574 AZITHROMYCIN Mara ctive PREMARIN 0.625 MG ORAL TABLET Take one by mouth daily PREMARIN 0.625 MG ORAL TABLET ESTROGENS CONJUGATED Inactive PREDNISONE 20 MG ORAL TABLET 3tab x 2days,2tab x 2days ,1tab x 2days,1/2tab x 2days PREDNISONE 20 MG ORAL TABLET 301511 PREDNIS ONE Inactive CYMBALTA 30 MG ORAL CAPSULE DELAYED RELEASE PARTICLES 1 daily wi th 60mg CYMBALTA 30 MG ORAL CAPSULE DELAYED RELEASE PARTICLES 746476 DULOXETINE HCL Inactive CYMBALTA 60 MG ORAL CAPSULE DELAYED RELEASE PARTICLES one tablet daily, takes 30mg. with 60mg. to make 90 mg. CYMBALTA 60 MG ORAL CAPSULE DELAYED RELEASE PARTICLES 564493 DULOXETINE HCL Inacti ve CYMBALTA 30 MG ORAL CAPSULE DELAYED RELEASE PARTICLES 3 caps daily CYMBALTA 30 MG ORAL CAPSULE DELAYED RELEASE PARTICLES 694815 DULOXE ROSANNE HCL Inactive HYDROCORTISONE 2.5 % EXTERNAL CREAM Apply four times a day to af fected area HYDROCORTISONE 2.5 % EXTERNAL CREAM 861482 HYDROCORTISO NE Inactive CLARITIN 10 MG ORAL TABLET 1 tablet by mouth daily as needed for allergies CLARITIN 10 MG ORAL TABLET 466377 LORATADINE Inact rancho VENLAFAXINE HCL 75 MG ORAL TABLET 1tid VENLAFAXINE HCL 75 MG ORAL TABLET 054947 VENLAFAXINE HCL Inactive CENTRUM SILVER ADULT 50+ ORAL TABLET 1qd 2013 CENTRUM SILVER ADULT 50+ ORAL TABLET MULTIPLE VITAMINS-MINERALS Inactive CALCIUM + D 600-200 MG-UNIT TABS Take one by mouth daily CALCIUM + D 600-200 MG-UNIT TABS CALCIUM CARBONATE-VITAMIN D Inactive AMOXICILLIN 500 MG ORAL CAPSULE 2 caps tid for 10days AMOXICILLIN 500 MG ORAL CAPSULE 947635 AMOXICILLIN Inactive CYMBALTA 60 MG ORAL CAPSULE DELAYED RELEASE PARTICLES 1 cap by mouth daily CYMBALTA 60 MG ORAL CAPSULE DELAYED RELE ASE PARTICLES 419086 DULOXETINE HCL Inactive VITAMIN D 1000 UNIT ORAL TABLET 1qd 4 VITAMIN D 1000 UNIT ORAL TABLET CHOLECALCIFEROL Inactive CHERATUSSIN AC 100-10 MG/5ML ORAL SYRUP one teaspoon qid. 9 CHERATUSSIN AC 100-10 MG/5ML ORAL SYRUP GUAIFENESIN-CODEINE Inactive FLAGYL 500 MG ORAL TABLET 1 tablet by mouth three times daily 20 28/05/03 FLAGYL 500 MG ORAL TABLET 540066 METRONIDAZOLE Inacti ve CLARITIN 10 MG ORAL TABLET one tablet daily CLARITIN 10 MG ORAL TABLET 158076 LORATADINE Inactive TUSSIONEX PENNKINETIC ER 10-8 MG/5ML ORAL SUSPENSION E XTENDED RELEASE 5ml po q12hr PRN Cough TUSSIONEX PENNKINETI C ER 10-8 MG/5ML ORAL SUSPENSION EXTENDED RELEASE HYDROCOD POLST-CHLORPHEN POLST I nactive MUCINEX 600 MG ORAL TABLET EXTENDED RELEASE 12 HOUR 2qd MUCINEX 600 MG ORAL TABLET EXTENDED RELEASE 12 HOUR GUAIFENESIN Inactive HYDROCORTISONE 2.5 % EXTERNAL CREAM apply 3-4 times a day to affected area HYDROCORTISONE 2.5 % EXTERNAL CREAM 078794 HYDRO CORTISONE Inactive ACIPHEX 20 MG ORAL TABLET DELAYED RELEASE 1qd ACIPHEX 20 MG ORAL TABLET DELAYED RELEASE 060736 RABEPRAZOLE SODIUM Inactive B-12 2000 MCG ORAL TABLET 1qd B-12 2000 MCG ORAL TABLET CYANOCOBALAMIN Inactive VITAMIN D3 1000 UNIT ORAL TABLET 1qd VITAMIN D3 1000 UNIT ORAL TABLET CHOLECALCIFEROL Inactive CEPHALEXIN 250 MG ORAL CAPSULE Take one tablet qid 201 05/25/29 CEPHALEXIN 250 MG ORAL CAPSULE 505768 CEPHALEXIN Inactive FISH OIL 1200 MG ORAL CAPSULE One daily prn FISH OIL 1200 MG ORAL CAPSULE OMEGA-3 FATTY ACIDS Inactive ZITHROMAX Z-SANJANA 250 MG ORAL TABLET 2x1day,[id number] 2014 ZITHROMAX Z-SANJANA 250 MG ORAL TABLET 082392 AZITHROMYCIN Inact rancho BENZONATATE 200 MG ORAL CAPSULE Take one capsule three times a d ay BENZONATATE 200 MG ORAL CAPSULE 600616 BENZONATATE Inactive GREEN TEA SLIM ORAL TABLET Take one daily GREEN TEA SLIM ORAL TABLET MISC NATURAL PRODUCTS Inactive PROBIOTIC ORAL CAPSULE Take one daily PROBIOTIC ORAL CAPSULE 9559030 PROBIOTIC PRODUCT Inactive VITAMIN D3 1000 UNIT ORAL TABLET Take two daily 05/05 VITAMIN D3 1000 UNIT ORAL TABLET CHOLECALCIFEROL Inactive HYDROCORTISONE 2.5 % EXTERNAL CREAM Apply three times a day to affected area HYDROCORTISONE 2.5 % EXTERNAL CREAM 979460 HYDRO CORTISONE Inactive MOBIC 15 MG ORAL TABLET 1 tablet by mouth daily in am with PPI 2 MOBIC 15 MG ORAL TABLET 595328 MELOXICAM Inactive CLARITIN-D 12 HOUR 5-120 MG ORAL TABLET EXTENDED RELEA SE 12 HOUR Take one tablet bid CLARITIN-D 12 HOUR 5 -120 MG ORAL TABLET EXTENDED RELEASE 12 HOUR LORATADINE-PSEUDOEPHEDRINE Inactive ACETAMINOPHEN 500 MG ORAL TABLET prn ACETAMINOPHEN 500 MG ORAL TABLET 654822 ACETAMINOPHEN Inactive CLARITIN-D 12 HOUR 5-120 MG ORAL TABLET EXTENDED RELEA SE 12 HOUR Take one tablet BID as needed for allergies CLARITIN-D 12 HOUR 5-120 MG ORAL TABLET EXTENDED RELEASE 12 HOUR LORATADINE-PSEUDOEPHEDR INE Inactive FLONASE 50 MCG/ACT NASAL SUSPENSION 1 spray each nostr il twice daily for allergies and runny nose FLONASE 50 MCG/ ACT NASAL SUSPENSION FLUTICASONE PROPIONATE Inactive CALCIUM 600 + D 600-200 MG-UNIT ORAL TABLET Take one daily CALCIUM 600 + D 600-200 MG-UNIT ORAL TABLET CALCIUM CARB-CHOLECALCIF MERY Inactive DIFLUCAN 150 MG ORAL TABLET 1 by mouth for yeast 03/03 DIFLUCAN 150 MG ORAL TABLET 448310 FLUCONAZOLE Inactive DIFLUCAN 150 MG ORAL TABLET Take one tablet today and repeat in 72 hours DIFLUCAN 150 MG ORAL TABLET 319084 FLUCONAZOLE Inactive IBUPROFEN 200 MG ORAL TABLET Take 3 tablets every 6hrs IBUPROFEN 200 MG ORAL TABLET 700941 IBUPROFEN Inactive ZITHROMAX Z-SANJANA 250 MG ORAL TABLET Take 2 tablets toda y and 1 each day till gone ZITHROMAX Z-SANJANA 250 MG ORAL TABLET 445528 A ZITHROMYCIN Inactive PROAIR HFA 108 (90 BASE) MCG/ACT INHALATION AEROSOL SO LUTION 2 puffs four times a day as needed PROAIR HFA 108 (90 B ASE) MCG/ACT INHALATION AEROSOL SOLUTION ALBUTEROL SULFATE Inactive B-12 2500 MCG ORAL TABLET 1 daily B- 12 2500 MCG ORAL TABLET CYANOCOBALAMIN Inactive REGLAN 10 MG ORAL TABLET 1 po qid for bowels 3 REGLAN 10 MG ORAL TABLET 896854 METOCLOPRAMIDE HCL Inactive PREDNISONE 20 MG ORAL TABLET Take 2 tablets by mouth d aily for 2 days then 1 tablet daily for 2 days. PREDNISONE 20 MG ORAL T ABLET 304419 PREDNISONE Inactive ZYRTEC ALLERGY 10 MG ORAL CAPSULE 1qd ZYRTEC ALLERGY 10 MG ORAL CAPSULE CETIRIZINE HCL Inactive ADK 2337-1766-102 UNIT-MCG ORAL CAPSULE 1 daily 2 ADK 0644-0608-576 UNIT-MCG ORAL CAPSULE VITAMINS A D K Inac tive ZITHROMAX 250 MG ORAL TABLET 2 po today, then 1 po q days 2-5 20 12/24/14 ZITHROMAX 250 MG ORAL TABLET 563132 AZITHROMYCIN [place] ctive ZITHROMAX 250 MG ORAL TABLET two tablets now and one daily x 4 d ays ZITHROMAX 250 MG ORAL TABLET 979253 AZITHROMYCIN [place] ctive PREDNISONE 20 MG ORAL TABLET 2 PO qd x 2d, 1 PO qd x 2d, 1/2 PO qd x 2d PREDNISONE 20 MG ORAL TABLET 484589 PREDNISONE Inactive SIMVASTATIN 40 MG ORAL TABLET one tablet daily SIMVASTATIN 40 MG ORAL TABLET 19810213 SIMVASTATIN Inactive BACTRIM DS 800-160 MG ORAL TABLET 1bid BACTRIM DS 800-160 MG ORAL TABLET 216755 SULFAMETHOXAZOLE-TRIMETHOPRIM Inactive ZITHROMAX 250 MG ORAL TABLET 2 po today, then 1 po q days 2-5 20 26/12/21 ZITHROMAX 250 MG ORAL TABLET 978909 AZITHROMYCIN Mara ctive ZITHROMAX 250 MG ORAL TABLET 2 po today, then 1 po q days 2-5 20 27/02/16 ZITHROMAX 250 MG ORAL TABLET 538033 AZITHROMYCIN Mara ctive ZITHROMAX 250 MG ORAL TABLET 2 po today, then 1 po q days 2-5 20 26/02/30 ZITHROMAX 250 MG ORAL TABLET 071046 AZITHROMYCIN Mara ctive ZITHROMAX 250 MG ORAL TABLET 2 po today, then 1 po q days 2-5 20 26/06/21 ZITHROMAX 250 MG ORAL TABLET 322724 AZITHROMYCIN Mara ctive ZITHROMAX 250 MG ORAL TABLET 2 po today, then 1 po q days 2-5 20 31/03/18 ZITHROMAX 250 MG ORAL TABLET 005259 AZITHROMYCIN Mara ctive ZITHROMAX Z-SANJANA 250 MG ORAL TABLET 2 today, then 1 daily for 4 d ays ZITHROMAX Z-SANJANA 250 MG ORAL TABLET 349540 AZITHROMYCIN Inactive AMOXICILLIN 500 MG ORAL CAPSULE Take 1 capsule by mout h three times a day X 10 days AMOXICILLIN 500 MG ORAL CAPSULE 123786 AMOX ICILLIN Inactive AMOXICILLIN-POT CLAVULANATE 875-125 MG ORAL TABLET 1 pill by mouth twice daily AMOXICILLIN-POT CLAVULANATE 875-125 MG ORAL TABL ET 416573 AMOXICILLIN-POT CLAVULANATE Inactive AUGMENTIN 875-125 MG ORAL TABLET Take one tablet twice a day with food AUGMENTIN 875-125 MG ORAL TABLET AMOXICILLIN-POT CLAVULANATE Inactive POLYTRIM 65374-7.1 UNIT/ML-% OPHTHALMIC SOLUTION 1 gtt to affected eye q3h x 7 days POLYTRIM 61497-7.1 UNIT/ML-% OPH THALMIC SOLUTION 069001 POLYMYXIN B-TRIMETHOPRIM Inactive MACROBID 100 MG ORAL CAPSULE 1 cap by mouth twice daily MACROBID 100 MG ORAL CAPSULE 8215054 NITROFURANTOIN MONOHYD MACRO In active Advance Directives Directive Description Start Date PERMISSION TO SHARE Immunizations Vaccine Administration Date Value Standard Servando cription influenza immunization (Flu Vax) has been administered 12/12 Done according to patient influenza immunization (Flu Vax) has been administered 04/16 Done according to patient Seasonal influenza vaccine, injectable, containing preservative, for > 3 years old (Afluria, FluLaval, Fluzone, Fluvirin, Fluarix, Agriflu(>= 18 yo)) Fluzone (>=3 yrs.) [[id number]] Seasonal influenza vaccine, injectable, containing preservative, for > 3 years old (Afluria, FluLaval, Fluzone, Fluvirin, Fluarix, Agriflu(>= 18 yo)) Fluzone (>3 yrs.) [[id number]] Seasonal influenza vaccine, injectable, containing preservative, for > 3 years old (Afluria, FluLaval, Fluzone, Fluvirin, Fluarix, Agriflu(>= 18 yo)) Fluarix (>3 yrs.) [[id number]] Diagnostic Results Date Name Value Unit Range Description Lab Report: CBC, Comp. Metabolic Panel, Lipid Panel, Magnesium - Chemistry sodium, serum 138 mmol/L 984-654 8711/09/02 carbon dioxide, venous blood 28.0 mmol/L 21.0-32 .0 potassium, serum 4.4 mmol/L 3.5-5.2 chloride, serum 98 mmol/L 98-107 blood glucose 103 mg/dL 65-95 urea nitrogen, blood 19 mg/dL 7-18 creatinine, serum 0.59 mg/dL 0.60-1.30 Estimated Glomerular Filtration Rate (calc) 111 (?) mL/min/1.73m2 = OR > 60 mL/min alanine aminotransferase (SGPT), serum 47 U/L 12-78 aspartate aminotransferase (SGOT), serum 40 U/L 19-43 calcium, serum 9.3 mg/dL 8.5-10.1 bilirubin, serum, total 0.20 mg/dL 0.00-1.00 cholesterol, serum 228 mg/dL 301-158 5259/09/02 triglyceride, serum, fasting 236 mg/dL 30-200 HDL cholesterol, serum 70 mg/dL 32-60 LDL cholesterol, serum 110 mg/dL 0-130 Lab Report: CBC, Comp. Metabolic Panel, Lipid Panel, Magnesium - Hematology leukocyte count, blood 6.8 10^3/MM^3 10*3/mm3 4.6-10.2 erythrocyte (RBC) count 4.49 10^6/MM^3 10*6/mm3 3.80-5.8 0 hemoglobin, blood 14.0 g/dL 12.0-16.0 hematocrit, blood 42.7 % 37.0-47.0 mean corpuscular volume, RBC 95 fL 80-97 mean corpuscular hemoglobin, RBC 31.2 pg 27. 0-31.2 mean corpuscular hemoglobin concentration, RBC 32.8 G/DL % 31.8-35.4 red blood cell distribution width 11.4 % 11 .6-14.8 platelet count 283 10^3/MM^3 10*3/mm3 142-424 Lab Report: CBC, Comp. Metabolic Panel, Lipid Panel, Magnesium - Lab Alkaline phosphatase 116 50-136 Lab Report: Thyroid Stimulating Hormone (L) - Chemistry TSH 1.37 m[iU]/mL 0.36-3.74 Encounters Code Encounter Date Provider Facility CPT-26697 70153: Ofc Vst-Est Level IV-Moderate MDM or 30-39 minutes 17:48:09 CDT Ashley [address] [facility] [place] CPT-15258 [id number] Vst-Est Level III 17:07:11 CDT Jenny Yang [facility] [place] CPT-89932 [id number] Vst-Est Level III 17:51:44 [employer] [place] [facility] CPT-87167 Level 3 Est. Patient 11:09:39 CDT Viviana Rubio [facility] CPT-18432 30856-Piw Vst-Est Level IV 09:14:31 CDT Conchis Yang [facility] [place] CPT-34777 [id number] Vst-Est Level III 22:05:50 CDT Jenny Yang [facility] [place] CPT-41943 Level 3 Est. Patient 15:00:02 [employer] Will Cárdenas milka [facility] CPT-37896 Level 2 Est. Patient 13:46:20 CDT Ashley Meraz [facility] [place] CPT-47113 Level 2 Est. Patient 13:45:36 CDT Ashley Meraz [facility] [place] CPT-19563 Level 3 Est. Patient 15:52:07 CDT Ashley Kt [facility] [place] CPT-87461 Level 3 Est. Patient 08:20:37 CDT Ashley Mirелена [facility] [place] CPT-45932 Level 3 Est. Patient 15:06:41 CDT Derrick donaldson MD [facility] CPT-56678 Level 3 Est. Patient 11:13:21 [employer] Derrick donaldson MD [facility] CPT-21080 Level 3 Est. Patient 12:54:25 [employer] Ashley Meraz [facility] [place] CPT-74605 Level 3 Est. Patient 23:34:49 [employer] Ashley Meraz [facility] [place] CPT-55287 Level 3 Est. Patient 16:37:09 [employer] Ashley peacock [facility] [place] CPT-07949 Level 3 Est. Patient 11:59:30 [employer] Ashley peacock [facility] [place] CPT-35347 Level 4 Est. Patient 07:40:[address] [facility] CPT-11116 Level 4 Est. Patient 08:06:18 CDT Wayne delatorre [facility] [place] CPT-02777 Level 3 Est. Patient 11:14:45 CDT Wayne delatorre [facility] [place] CPT-48340 Level 3 Est. Patient 10:14:55 CDT Wayne delatorre [facility] [place] CPT-61865 Level 4 Est. Patient 15:23:47 [facility] Level 3 Est. Patient 07:50:51 [employer] Wayne delatorre [facility] CPT-62682 Level 3 Est. Patient 14:47:52 CDT [facility]-35984 Level 3 Est. Patient 11:28:46 CDT Wayne delatorre PA [facility] [place] CPT-64196 Level 4 Est. Patient 14:48:43 CDT Wayne delatorre [facility] CPT-75398 Level 3 Est. Patient 14:10:18 [employer] Wayne delatorre [facility] CPT-54102 Level 3 Est. Patient 16:44:33 [employer]MER [employer] [facility] CPT-99577 Level 4 Est. Patient 08:22:34 [employer]MER [employer] [facility]00489 Level 4 Est. Patient 07:10:30 CDT Wayne delatorre [facility] CPT-36977 Level 3 Est. Patient 14:50:20 [employer] Wayne delatorre [facility] CPT-63677 Level 3 Est. Patient 09:46:08 [employer]MER [employer] Zuleika cha APRN [facility] CPT-55865 Level 4 Est. Patient 07:56:24 [employer]MER [employer] Wayne delatorre [facility] CPT-78177 Level 3 Est. Patient 12:13:53 CDT Ismael D[facility] CPT-85715 Level 4 Est. Patient 12:28:51 [employer] [facility] CPT-23701 Level 3 Est. Patient 15:23:42 [employer] [facility] CPT-21143 Level 3 Est. Patient 06:34:33 [employer] [facility] Procedures Code Procedure Name Date Entry Date Standard Desc ription CPT-76902 Allergy Admin 2 16:06:08 CDT CPT-67360 Allergy Admin 2 16:51:42 CDT CPT-30682 Allergy Admin 2 16:26:50 CDT CPT-43111 Allergy Admin 2 17:02:53 CDT CPT-91209 Allergy Admin 2 16:32:35 CDT CPT-18416 Allergy Admin 2 16:26:27 CDT CPT-J3420 Vitamin B12 1000mcg (Cyanocobalamin) 16:32:13 CDT CPT-27746 Abx/Therapy Injection 16:32:13 CDT CPT-30947 Allergy Admin 2 16:32:12 CDT CPT-23092 Allergy Admin 2 16:05:03 CDT CPT-70545 Allergy Admin 2 16:35:15 CDT CPT-54497 Allergy Admin 2 16:20:41 CDT CPT-03812 Allergy Admin 2 11:25:21 CDT CPT-72056 Allergy Admin 2 15:46:12 CDT CPT-DS7765R (4274F) Influenza immunization administe red or previously received 17:51:44 [employer] CPT-72799 Spec Collection and Handling Fee 10:45:[address] CPT-[id number] (4274F) Influenza immunization administe red or previously received 10:20:17 CDT CPT-73930 Prv Med Est Pt 40-64yrs 16:26:57 CDT CPT-16898 Venipuncture Draw Fee 11:08:31 CDT CPT-93085 Magnesium - LAB USE ONLY 11:08:31 CDT 10/15 CPT-43573 TSH - LAB USE ONLY 11:08:31 CDT CPT-56322 Lipid - LAB USE ONLY 11:08:30 CDT 2 CPT-50373 CMP - LAB USE ONLY 11:08:30 CDT CPT-43140 CBC - LAB USE ONLY 11:08:30 CDT CPT-30823 Spec Collection and Handling Fee 16:14:51 C DT CPT-33023 UA w micro - LAB USE ONLY 16:14:51 CDT 2018 CPT-15179 Prv Med Est Pt 40-64yrs 08:34:49 CDT 10/01 CPT-45155 Sed Rate - LAB USE ONLY 10:50:49 CDT 10/02 CPT-53773 TSH - LAB USE ONLY 10:50:49 CDT CPT-24796 Lipid - LAB USE ONLY 10:50:49 CDT 0 CPT-81293 Magnesium - LAB USE ONLY 10:50:49 CDT 10/02 CPT-10969 CMP - LAB USE ONLY 10:50:49 CDT CPT-70363 CBC - LAB USE ONLY 10:50:49 CDT CPT-57377 Venipuncture Draw Fee 10:50:49 CDT CPT-21235 IV Hydration < or = 1 hr 22:05:50 CDT 04/16 CPT-J7030 Normal Saline 1000 mL 22:05:50 CDT CPT-47878 Abx/Therapy Injection 16:31:51 [employer] CPT-J2950 Phenergan 25 mg 16:31:51 [employer] CPT-74955 Abx/Therapy Injection 16:39:40 CDT CPT-73082 First Vx - Ix admin via ID I M or jet injects without counseling by physician 16:39:39 CDT CPT-85108 Prv Med Est Pt 40-64yrs 16:33:10 CDT 11/10 CPT-JTINJ Asp/Joint Injection 16:13:36 CDT CPT-00169 Allergy Admin 2 16:54:52 CDT CPT-82448 Allergy Admin 2 16:46:15 CDT CPT-69619 Allergy Admin 2 11:29:09 CDT CPT-24658 Allergy Admin 2 17:05:15 CDT CPT-35058 Allergy Admin 2 12:31:51 CDT CPT-09394 Allergy Admin 2 15:40:56 CDT CPT-27470 CBC - LAB USE ONLY 09:49:24 CDT CPT-87282 CMP - LAB USE ONLY 09:49:24 CDT CPT-12169 Lipid - LAB USE ONLY 09:49:24 CDT 8 CPT-99349 Venipuncture Draw Fee 09:49:24 CDT CPT-24309 Allergy Admin 2 10:46:11 CDT CPT-JTINJ Asp/Joint Injection 09:52:58 CDT CPT-30406 Skin tag rem 1-15 13:46:20 CDT CPT-01436 Knee, right, 3V - XRAY USE ONLY 13:07:09 CD T CPT-32029 Allergy Admin 2 11:56:38 CDT CPT-71946 Allergy Admin 2 12:00:55 CDT CPT-00405 Allergy Admin 2 16:42:13 CDT CPT-84008 Allergy Admin 2 16:27:55 CDT CPT-24723 Allergy Admin 2 13:24:26 CDT CPT-24580 Allergy Admin 2 17:17:57 [employer] CPT-26128 Allergy Admin 2 16:23:22 [employer] CPT-94823 Allergy Admin 2 16:26:55 [facility] CPT-20012 Allergy Admin 2 16:32:33 [facility] CPT-31166 Allergy Admin 2 17:43:40 [facility] CPT-37783 Allergy Admin 2 16:26:07 [facility] CPT-69427 Allergy Admin 2 12:31:50 [facility] CPT-89316 Allergy Admin 2 16:40:38 [facility] CPT-06601 Allergy Admin 2 17:07:36 CDT CPT-G0008 Administration of Influenza Virus Vaccine 17:01:01 CDT CPT-48913 First Vx - Ix admin via ID I M or jet injects without counseling by physician 17:01:01 CDT CPT-08622 Allergy Admin 2 12:06:54 CDT CPT-97373 Allergy Admin 2 17:04:46 CDT CPT-55768 Allergy Admin 2 16:34:48 CDT CPT-54221 Allergy Admin 2 17:04:51 CDT CPT-70813 Allergy Admin 2 16:25:14 CDT CPT-70593 Allergy Admin 2 10:52:02 CDT CPT-79557 Allergy Admin 2 11:45:31 CDT CPT-53921 Allergy Admin 2 12:02:20 CDT CPT-41139 Allergy Admin 2 15:47:29 CDT CPT-43907 Allergy Admin 2 13:25:44 CDT CPT-51870 Allergy Admin 2 10:51:13 CDT CPT-02495 CBC - LAB USE ONLY 10:44:39 CDT CPT-21669 CMP - LAB USE ONLY 10:44:39 CDT CPT-69931 Lipid - LAB USE ONLY 10:44:39 CDT 9 CPT-42092 Venipuncture Draw Fee 10:44:38 CDT CPT-05595 Allergy Admin 2 12:25:22 CDT CPT-99060 Allergy Admin 2 12:41:34 CDT CPT-02804 Allergy Admin 2 15:29:46 CDT CPT-62612 Allergy Admin 2 14:46:53 CDT CPT-80704 Allergy Admin 2 14:16:16 CDT CPT-13268 Allergy Admin 2 16:55:26 CDT CPT-39241 Allergy Admin 2 10:12:02 CDT CPT-66424 Allergy Admin 2 14:53:56 CDT CPT-02508 Allergy Admin 2 17:01:54 T CPT-98133 Allergy Admin 2 09:36:02 CDT CPT-96180 Allergy Admin 2 16:53:26 [facility] CPT-59399 Allergy Admin 2 16:59:41 [facility] CPT-88010 Allergy Admin 2 16:36:44 [facility] CPT-15412 Allergy Admin 2 16:17:16 [facility] CPT-71906 Allergy Admin 2 17:08:10 [facility] CPT-21573 Allergy Admin 2 12:16:08 [employer] CPT-76330 Allergy Admin 2 16:47:30 [employer] CPT-79379 Allergy Admin 2 16:59:44 [employer] CPT-23959 Allergy Admin 2 12:48:53 [employer] CPT-41951 Allergy Admin 2 10:19:48 [employer] CPT-09925 Allergy Admin 2 12:40:17 [employer] CPT-33175 Abx/Therapy Injection 17:21:59 [employer] CPT-51467 First Vx - Ix admin via ID I M or jet injects without counseling by physician 17:21:57 [employer] CPT-78490 Allergy Admin 2 17:20:12 [employer] CPT-70095 Allergy Admin 2 11:12:50 [employer] CPT-26793 Allergy Admin 2 17:02:39 CDT CPT-86778 BMP - LAB USE ONLY 10:33:02 CDT CPT-41260 CBC - LAB USE ONLY 10:33:02 CDT CPT-93039 Venipuncture Draw Fee 10:33:02 CDT CPT-74442 Abx/Therapy Injection 12:29:08 CDT CPT-32919 Allergy Admin 2 10:39:48 CDT CPT-81039 Allergy Admin 2 10:55:47 CDT CPT-PV Prev. Care Visit 10:10:00 CDT CPT-04185 Allergy Admin 2 11:31:20 CDT CPT-00505 Allergy Admin 2 16:53:45 CDT CPT-23408 Allergy Admin 2 16:36:42 CDT CPT-91752 Allergy Admin 2 16:30:19 CDT CPT-59343 Allergy Admin 2 15:39:35 CDT CPT-29589 Allergy Admin 2 17:51:32 CDT CPT-57070 Allergy Admin 2 11:50:50 CDT CPT-PV Prev. Care Visit 14:09:05 CDT CPT-24878 Allergy Admin 2 13:37:39 CDT CPT-63847 Abx/Therapy Injection 12:17:43 CDT CPT-96817 Venipuncture Draw Fee 10:39:55 CDT CPT-36934 Allergy Admin 2 12:04:53 CDT CPT-88954 Allergy Admin 2 10:04:39 CDT CPT-37849 Allergy Admin 2 12:15:35 CDT CPT-07602 Allergy Admin 2 17:04:36 CDT CPT-50807 Allergy Admin 2 16:25:49 CDT CPT-59789 Allergy Admin 2 17:30:06 CDT CPT-35875 Allergy Admin 2 10:11:48 CDT CPT-74185 Allergy Admin 2 17:06:13 CDT CPT-43414 Abx/Therapy Injection 12:23:07 CDT CPT-J0702 Celestone 12 mg (Betamethasone) 12:23:07 CD T CPT-82121 Venipuncture Draw Fee 10:26:42 CDT CPT-79190 Allergy Admin 2 12:10:01 CDT CPT-20952 Allergy Admin 2 15:13:57 [employer] CPT-25562 Allergy Admin 2 16:55:22 [facility] CPT-61813 Allergy Admin 2 10:13:46 [employer] CPT-58437 Venipuncture Draw Fee 10:06:08 [employer] CPT-17693 Allergy Admin 2 16:15:41 [employer] CPT-82838 Allergy Admin 2 16:40:21 [employer] CPT-36331 Allergy Admin 2 16:31:48 [employer] CPT-09174 Allergy Admin 2 16:38:26 [employer] CPT-18151 Allergy Admin 2 16:40:08 [employer] CPT-43837 Allergy Admin 2 08:34:27 [employer] CPT-71577 Allergy Admin 2 14:27:45 [employer] CPT-60312 Destruction bgn lsn up to 14 09:41:27 [facility] 2 CPT-74113 Allergy Admin 2 17:45:17 [facility] CPT-81793 Allergy Admin 2 14:59:03 [facility] CPT-38016 Allergy Admin 2 12:49:42 CDT CPT-74384 Administration single or combination vac cine inc oral 15:01:57 CDT CPT-18068 Fluzone Quadrivalent Intramuscular Suspe nsion 0.5 ML 15:01:57 CDT CPT-16742 Allergy Admin 2 15:07:08 CDT CPT-16724 Allergy Admin 2 15:39:01 CDT CPT-17959 Allergy Admin 2 17:40:11 CDT CPT-80206 Allergy Admin 2 16:07:08 CDT CPT-19929 Allergy Admin 2 16:08:07 CDT CPT-04686 Venipuncture Draw Fee 09:34:29 CDT CPT-21853 Allergy Admin 2 16:27:43 CDT CPT-79408 Allergy Admin 2 15:53:10 CDT CPT-09595 Allergy Admin 2 15:42:29 CDT CPT-26938 Allergy Admin 2 11:26:14 CDT CPT-86146 Allergy Admin 2 10:36:24 CDT CPT-81477 Allergy Admin 2 16:53:37 CDT CPT-18168 Allergy Admin 2 11:21:44 CDT CPT-31074 Allergy Admin 2 10:50:40 CDT CPT-93367 Allergy Admin 2 11:19:11 CDT CPT-67735 Venipuncture Draw Fee 11:12:25 CDT CPT-53401 Allergy Admin 2 11:14:51 CDT CPT-43543 Allergy Admin 2 16:53:11 CDT CPT-37913 Allergy Admin 2 11:45:56 CDT CPT-42019 Allergy Admin 2 12:51:39 CDT CPT-74611 Allergy Admin 2 12:08:56 CDT CPT-24204 Allergy Admin 2 15:29:45 CDT CPT-77547 Allergy Admin 2 16:34:01 CDT CPT-48985 Allergy Admin 2 16:36:46 CDT CPT-87334 Allergy Admin 2 15:19:16 CDT CPT-49628 Allergy Admin 2 16:13:25 CDT CPT-10178 Allergy Admin 2 17:06:17 CDT CPT-44759 Allergy Admin 2 10:42:10 [employer] CPT-52063 Allergy Admin 2 17:33:16 [employer] CPT-50083 Allergy Admin 2 10:53:30 [employer] CPT-32097 Allergy Admin 2 14:18:24 [employer] CPT-11338 Allergy Admin 2 10:18:29 [employer] CPT-81597 Allergy Admin 2 12:57:40 [employer] CPT-97174 Allergy Admin 2 16:53:33 [employer] CPT-69100 Allergy Admin 2 12:43:00 [employer] CPT-93364 Allergy Admin 2 13:14:09 [employer] CPT-01025 Pneumovax 23 Injection Injectable 25 MCG /0.5ML 09:51:29 [employer] CPT-G0009 Administration of Pneumococcal Vaccine 09:51:29 [employer] CPT-70746 Influenza split virus > age 3 09:51:29 [employer] CPT-G0008 Administration of Influenza Virus Vaccine 02/23 09:51:29 [employer] CPT-68399 Venipuncture Draw Fee 10:31:06 CDT CPT-J0702 Celestone 12 mg (Betamethasone) 11:34:17 CD T CPT-16133 Abx/Therapy Injection 11:34:17 CDT CPT-57283 Chest 2V Frontal and Lat 11:31:47 CDT 07/04 CPT-12087 Venipuncture Draw Fee 11:31:47 CDT CPT-61022 Allergy Admin 2 14:31:05 CDT CPT-08111 EKG Trac and Interp 08:42:32 CDT CPT-65777 Chest 2V Frontal and Lat 08:42:32 CDT 05/28 CPT-82535 Venipuncture Draw Fee 08:39:02 CDT CPT-87291 Allergy Admin 2 16:59:09 CDT CPT-18471 Allergy Admin 2 17:06:11 CDT CPT-12403 Allergy Admin 2 16:04:36 CDT CPT-60105 Venipuncture Draw Fee 16:32:44 [employer] CPT-27356 Venipuncture Draw Fee 10:54:37 [employer] CPT-26319 Allergy Admin 2 14:53:55 [employer] CPT-36433 Allergy Admin 2 10:23:58 [employer] CPT-35166 First Vx Component - Ix admi n via ID IM or jet inj without physician counseling 15:34:26 [employer] CPT-40386 Fluzone (>=3 yrs.) 15:34:26 [employer] CPT-65153 Allergy Admin 2 15:56:02 [employer] CPT-60797 Allergy Admin 2 11:08:58 [employer] CPT-87010 Allergy Admin 2 10:51:36 [employer] CPT-12992 Allergy Admin 2 15:38:19 [employer] CPT-50806 Allergy Admin 2 15:12:46 CDT CPT-28918 Allergy Admin 2 10:28:50 CDT CPT-96205 Allergy Admin 2 16:35:33 CDT CPT-56914 Allergy Admin 2 10:14:18 CDT CPT-20364 Abx/Therapy Injection 09:06:45 CDT CPT-J0702 Celestone 6 mg (Betamethasone) 09:06:45 CDT CPT-07464 Allergy Admin 2 15:51:15 CDT CPT-29876 Allergy Admin 2 10:40:16 CDT CPT-81705 Allergy Admin 2 16:35:55 CDT CPT-44008 Allergy Admin 2 13:12:52 CDT CPT-14693 Allergy Admin 2 16:06:50 CDT CPT-82523 Allergy Admin 2 11:04:24 CDT CPT-45534 Allergy Admin 2 10:44:50 CDT CPT-03240 Allergy Admin 2 15:13:40 CDT CPT-31745 Allergy Admin 2 15:00:03 CDT CPT-94248 Allergy Admin 2 10:37:38 CDT CPT-69219 Venipuncture Draw Fee 09:16:43 [employer] CPT-43637 Allergy Admin 2 11:15:59 [employer] CPT-65208 Postop F/U Visit 10:10:52 [employer] CPT-31639 Allergy Admin 2 13:05:05 [employer] CPT-90451 Postop F/U Visit 19:45:16 [employer] CPT-77162 Allergy Admin 2 11:52:35 [employer] CPT-65880 Allergy Admin 2 10:49:22 [employer] CPT-OV Office Visit 13:55:55 [employer] CPT-53391 Allergy Admin 2 12:54:28 [employer] CPT-OV Office Visit 14:04:48 [employer] CPT-38216 Venipuncture Draw Fee 10:29:14 [employer] CPT-16631 Allergy Admin 2 11:24:43 [employer] CPT-51604 Knee 3V 11:00:12 [employer] CPT-93831 C-Spine Min 4V 11:00:12 [employer] CPT-71303 Allergy Admin 2 13:38:40 [employer] CPT-02251 Venipuncture Draw Fee 11:33:37 CDT CPT-69950 Allergy Admin 2 15:34:37 CDT CPT-64537 Allergy Admin 2 14:11:42 CDT CPT-53189 Administration single or combination vac cine inc oral 12:51:42 CDT CPT-62148 Influenza split virus > age 3 12:51:42 CDT CPT-53264 Allergy Admin 2 11:58:43 CDT CPT-07488 Allergy Admin 2 11:29:32 CDT CPT-04251 Allergy Admin 2 10:55:19 CDT CPT-14914 Allergy Admin 2 12:38:54 CDT CPT-86789 Allergy Admin 2 13:01:47 CDT CPT-21648 Abx/Therapy Injection 12:41:18 CDT CPT-J0702 Celestone 12 mg (Betamethasone) 12:41:18 CD T CPT-73755 Abx/Therapy Injection 16:33:09 CDT CPT-J0702 Celestone 12 mg (Betamethasone) 16:33:09 CD T CPT-88392 Allergy Admin 2 15:49:09 CDT CPT-32407 Allergy Admin 2 12:08:56 CDT CPT-93298 Allergy Admin 2 12:19:10 CDT CPT-07561 Allergy Admin 2 12:46:56 CDT CPT-64791 Allergy Admin 2 15:05:13 CDT CPT-00885 Allergy Admin 2 15:36:20 CDT CPT-18737 Allergy Admin 2 09:58:47 [employer] CPT-47817 Allergy Admin 2 12:18:06 [employer] CPT-54112 Allergy Admin 2 10:01:48 [employer] CPT-42938 Allergy Admin 2 12:17:53 [employer] CPT-53598 Allergy Admin 2 10:06:44 [employer] CPT-32125 Allergy Admin 2 10:13:04 [employer] CPT-02266 Venipuncture Draw Fee 10:09:07 [employer] CPT-33143 Bone Density 12:24:51 [employer] CPT-07592 Allergy Admin 2 11:29:41 [employer] CPT-68605 Allergy Admin 2 16:07:15 [employer] CPT-37239 Breathing Treatment 06:34:33 [employer] CPT-J0702 Celestone 12 mg (Betamethasone) 06:34:33 CS T CPT-98257 Abx/Therapy Injection 06:34:33 [employer] CPT-70564 Breathing Tx 11:07:33 [employer] CPT-31838 Allergy Admin 2 10:02:33 CDT CPT-13627 Allergy Admin 2 10:02:33 CDT CPT-59618 Allergy Admin 2 15:26:19 CDT CPT-51271 Administration single or combination vac cine inc oral 15:41:12 CDT CPT-23111 Influenza split virus > age 3 15:41:12 CDT
--- OUTSIDE RECORDS SUMMARY | 2020-09-15 14:33 | XMS REPORT | Clinical Summary ---
Author Author Admin, Supriya Zuniga Organization [facility] Address Unknown Phone Unavailable Allergies, Adverse [...] limb Tenosynovitis, hand/wrist NEC 727.05 Resolved 06/15 Wayne Harms PA Other tenosynovitis or hand and [...] Yang APRN Pruritus vulvae Active Ashley Yokum [employer] Screening mammogram V76.12 Resolved Ashley Yokum A PRN Other screening mammogram Sinusitis, acute maxillary 461.0 Inactive 7 Ashley Yokum [employer] Acute maxillary sinusitis Diarrhea, acute 787.91 Resolved Ashley Yokum [employer]ER Diarrhea Vaginal candidiasis 112.1 Resolved Ashley Yokum A PRN Candidiasis of vulva and vagina Accidental fall E888.9 Resolved Ashley Yokum [employer] Unspecified fall Contusion of left hand, initial encounter 923.20 Resol burak Ashley Yokum [employer] Contusion of hand(s) Contusion of right upper arm, subsequent encounter V58.89 201 09/14/21 Resolved Ashley Yokum [employer] Encounter for other specified a ftercare Ganglion cyst of left wrist 727.41 Active Derrick Younger MD Ganglion of joint Body Mass Index 31.0-31.9 Adult Resolved 2017 Ashley Yokum [employer] Body Mass Index 31.0-31.9, adult Plantar fasciitis 728.71 Active Ashley Yokum [employer] Plantar fascial fibromatosis Bronchitis, acute 466.0 Inactive Ashley Yokum APR N Acute bronchitis Body Mass Index 30.0-30.9 Adult Resolved 2017 Ashley Yokum [employer] Body Mass Index 30.0-30.9, adult Allergic conjunctivitis, bilateral 372.14 Resolved 2 Ashley Yokum [employer] Other chronic allergic conjunctivitis Skin tags; irritated/inflammed 701.9 Resolved 11/10 Ashley Yokum [employer]ER Unspecified hypertrophic and atrophic co nditions of skin Body Mass Index 31.0-31.9 Adult Refinement 2017 Ashley Yokum [employer] Body Mass Index 31.0-31.9, adult BMI 30-30.9 Refinement Ashley Yokum [employer]ER Body Mass Index 31.0-31.9, adult BMI 31-31.9 Refinement Ashley Yokum [employer]ER Body Mass Index 31.0-31.9, adult BMI 32-32.9 Refinement Lois Faith RN Body Mass Index 31.0-31.9, adult BMI 31-31.9 Active Viviana Rubio APRN-Julieta Body Mass Index 31.0-31.9, adult Major depression, recurrent, moderate 296.32 Active Ashley Yokum [employer] Major depressive disorder, recurrent epi sode, moderate degree Obesity Class I (BMI 30-34.9) Active Ashley Y okum [employer] Obesity, unspecified Nausea and vomiting 787.01 Resolved Ashley Yokum A PRN Nausea with vomiting Gastroenteritis acute 558.9 Resolved Ashley Yokum [employer] Other and unspecified noninfectious gastroenteritis and colitis GERD 530.81 Active Ashley Yokum [employer] E sophageal reflux Joint pain 719.40 Resolved Ashley Yokum [employer] Pain in joint, site unspecified Preventive health care, adult V70.0 Inactive / Ashley Yokum [employer] Routine general medical examination at a health care facility Blood in urine 599.70 Resolved Ashley Yokum [employer] Hematuria, unspecified Other abnormal findings in urine Resolved Ashley Yokum [employer]ER Urinary tract infection 599.0 Inactive Ashley Yok um [employer]ER Urinary tract infection, site not specified Chafing of skin 709.8 Resolved Ashley Yokum [employer] Other specified disorders of skin Preventive care V70.0 Active Supriya Betzaida A Routine general medical examination at a health care facility Gynecological examination, routine V72.3 Inactive 2 Ashley Yokum [employer] Special investigations and e xaminations - Gynecological examination Near syncope 780.2 Resolved Ashley Yokum [employer] Syncope and collapse Lightheadedness 780.4 Resolved Ashley Yokum [employer]ER Dizziness and giddiness Headache 784.0 Resolved Ashley Yokum [employer]ER Headache Sore throat 462 Resolved Ashley Yokum [employer] Acute pharyngitis Sinusitis - acute 461.9 Resolved Ashley Yokum APR N Acute sinusitis, unspecified Tired all the time 780.79 Resolved Ashley Yokum AP RN Other malaise and fatigue Fatigue 780.79 Inactive Ashley Yokum [employer] Other malaise and fatigue Preoperative examination V72.84 Inactive Conchis hi Yokum [employer]BLER Preoperative examination, unspecified Skin lesion 709.9 Inactive Ashley Yokum [employer]ER Unspecified disorder of skin and subcutaneous tissue ABNORMAL WEIGHT GAIN ICD-783.1 Inactive Wayne paul PA ALLERGIC RHINITIS ICD-477.9 Inactive Lois mendieta [employer] SINUSITIS ICD-473.9 Inactive Lois Leos [employer]ER 2012 WHEEZING ICD-786.07 Inactive Lois Leos [employer]ER 2012 UPPER RESPIRATORY INFECTION, ACUTE ICD-465.9 I nactive Lois Leos [employer] NEED FOR DESENSITIZATION TO ALLERGENS ICD-V07.1 8 Inactive Ashley Yang [employer] OBESITY ICD-278.00 Inactive Wayne Harms PA CONTACT DERMATITIS DUE TO POISON ARANZA ICD-692.6 Inactive Lois Leos [employer] NEED PROPHYLACTIC VACCINATION&INOCULATION FLU ICD-V04.81 Inactive Wayne Harms PA GERD ICD-530.81 Inactive Lois Leos [employer]ER 03/22 LONG-TERM (CURRENT) USE OF OTHER MEDICATIONS ICD-V58.69 6 Inactive Wayne Harms PA NECK PAIN ICD-723.1 Inactive Wayne Harms PA 06/15 DEGENERATIVE DISC DISEASE, CERVICAL SPINE ICD-722.4 Inactive Wayne Harms PA SKIN TAG ICD-701.9 Inactive Wayne Harms PA G E R D ICD-530.81 Inactive Lois Leos [employer]ER CANDIDIASIS OF SKIN AND NAILS ICD-112.3 Inacti ve Wayne Harms PA AFTERCARE FOLLOW SURGERY MUSCULOSKEL SYSTEM NEC ICD-V58.78 Inactive Wayne Harms PA PHARYNGITIS ICD-462 Inactive Wayne Harms PA 05/03 OTHER SCREENING MAMMOGRAM ICD-V76.12 Inactive Wayne Harms PA DYSPAREUNIA, MILD ICD-625.0 Inactive Wayne Harm s PA CONTACT DERMATITIS DUE TO POISON ARANZA ICD-692.6 Inactive Wayne Harms PA Sinusitis, chronic ICD-473.9 Inactive Ashley Yo yoni [employer] Myalgia ICD-729.1 Inactive Wayne Harms PA Rheumatoid [...] ICD-719.46 Inactive Wayne Harms PA Chondromalacia patella, 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 Inacti ve Beatriz Martines Chondromalacia patella, 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 Inactiv e Wayne Harms PA Allergic rhinitis, chronic ICD-477.9 Inactive Wayne Harms PA High risk meds ICD-V58.69 Inactive Wayne Harms PA Need for prophylactic vaccination and inoculation against in fluenza ICD-V04.81 Inactive Wayne Harms PA Onychomycosis -dermatophytosis, nail ICD-110.1 Inactive Wayne Harms PA Skin tags; irritated/inflammed ICD-701.9 Inact rancho Wayne Harms PA Cough ICD-786.2 Inactive Wayne Moon PA Runny nose ICD-472.0 Inactive Ashley Yokum [employer] Influenza like illness ICD-487.1 Inactive Wayne Moon PA Acute maxillary sinusitis ICD-461.0 Inactive Ashley Yokum [employer] Preventive health care ICD-V70.0 Inactive Ka thi Yokum [employer]ER Well women exam ICD-V72.3 Inactive Ashley Yokum [employer] Screening mammogram ICD-V76.12 Inactive Ashley Yokum [employer] Sinusitis, acute maxillary ICD-461.0 Inactive Ashley Yokum [employer] Diarrhea, acute ICD-787.91 Inactive Ashley Yoku m [employer] Vaginal candidiasis ICD-112.1 Inactive Ashley Y okum [employer]ER Accidental fall ICD-E888.9 Inactive Ahsley Yoku m [employer] Contusion of left hand, initial encounter ICD-923.20 Inactive Ashley Yokum [employer] Contusion of right upper arm, subsequent encounter ICD-V58.89 Inactive Ashley Yokum [employer] Body Mass Index 31.0-31.9 Adult Inac tive Ashley Yokum [employer] Bronchitis, acute ICD-466.0 Inactive Ashley Yok um [employer]ER Body Mass Index 30.0-30.9 Adult Inac tive Ashley Yokum [employer]ER Allergic conjunctivitis, bilateral ICD-372.14 I nactive Ashley Yokum [employer] Skin tags; irritated/inflammed ICD-701.9 Inact rancho Ashley Yokum [employer]ER Nausea and vomiting ICD-787.01 Inactive Ashley Yokum [employer] Gastroenteritis acute ICD-558.9 Inactive Conchis hi Yokum [employer]ER Joint pain ICD-719.40 Inactive Ashley Yokum APR N Preventive health care, adult ICD-V70.0 Inacti ve Ashley Yokum [employer] Blood in urine ICD-599.70 Inactive Ashley Yokum [employer] Other abnormal findings in urine Mara ctive Ashley Yokum [employer]ER Urinary tract infection ICD-599.0 Inactive K athi Yokum [employer]ER Chafing of skin ICD-709.8 Inactive Ashley Yokum [employer] Gynecological examination, routine ICD-V72.3 I nactive Ashley Yokum [employer] Near syncope ICD-780.2 Inactive Ashley Yokum AP RN Lightheadedness ICD-780.4 Inactive Ashley Yokum [employer] Headache ICD-784.0 Inactive Ashley Yokum [employer] 2020 Sore throat ICD-462 Inactive Ashley Yang [employer]ER 02/17/17 Sinusitis - acute ICD-461.9 Inactive Ashley peacock [employer] Tired all the time ICD-780.79 Inactive Ashley gutierrez [employer] Fatigue ICD-780.79 Inactive Ashley Yang [employer] 2020 Preoperative examination ICD-V72.84 Inactive Ashley Yang [employer] Skin lesion ICD-709.9 Inactive Ashley Yang APR N Medication List Medication Instructions Start Date Stop Date Generic Name NDC Status Provider Patient Instruction ALPRAZOLAM 0.25 MG TABS TAKE 1 TO 2 TABLETS BY MOUTH THREE TIMES DAILY NEEDED ALPRAZOLAM 12612167402 Active Shanelleroyce Rivera RN Active PHENTERMINE HCL 37.5 MG TABS 1 TAB IN MORING. TAKE 30 MIN BEFORE BREAKFAST OR 2 HRS AFTER BREAKFAST PHENTERMINE HCL 61759224409 Active Ashley Yang ELAINA Active ADK [id number] UNIT-MCG ORAL CAPSULE 1 daily 2 VITAMINS A D K 29697830809 No Longer Active Ashley Yang ELAINA Active EQ LORATADINE 10 MG ORAL TABLET TAKE 1 TABLET BY MOUTH ONCE DAILY NEEDED FOR ALLERGIES LORATADINE 26156806776 Active Shanelle Rivera RN Active MUCINEX D 60-600 MG ORAL TABLET EXTENDED RELEASE 12 HO UR 1 po BID PRN Congestion PSEUDOEPHEDRINE-GUAIFENESIN 99585272921 Active Ashley Yang ELAINA Active ZYRTEC ALLERGY 10 MG ORAL CAPSULE 1qd CETIR IZINE HCL 17022683212 No Longer Active Ashley Yang ELAINA Active HAIR, SKIN, NAILS VITAMINS take 1 tab by mouth 2x a day HAIR, SKIN, NAILS VITAMINS Active Ashley Yang ELAINA Active CENTRUM SILVER FOR WOMEN OVER 50 1 tab by mouth by day. CENTRUM SILVER FOR WOMEN OVER 50 Active Ashley Yang [employer]ER Active VITAMIN D3 1000 UNIT ORAL CAPSULE 1 po qd CH OLECALCIFEROL 86307288166 Active Ashley Yang [employer]ER Active PREDNISONE 20 MG ORAL TABLET Take 2 tablets by mouth d aily for 2 days then 1 tablet daily for 2 days. PREDNISONE 69065763168 No Longer Active Ashley Yang ELAINA Active MELOXICAM 15 MG ORAL TABLET TAKE 1 TABLET BY MOUTH IN THE MORNING 2 MELOXICAM 77406207957 Active Shanelle Rievra RN Active SIMVASTATIN 40 MG ORAL TABLET TAKE 1 TABLET BY MOUTH ONCE DA JAVON AT BEDTIME SIMVASTATIN 83139888460 Active Shanelle Rivera RN A ctive [id number] ORAL TABLET MULT IPLE MINERALS 17685060997 Active Lois Faith RN Active SERTRALINE HCL 100 MG ORAL TABLET Take 1 tablet by mouth once da javon SERTRALINE HCL 90799273171 Active LARRY Murillo A ctive REGLAN 10 MG ORAL TABLET 1 po qid for bowels 3 METOCLOPRAMIDE HCL 28221728988 No Longer Active Ashley Yang ELAINA A ctive B-12 2500 MCG ORAL TABLET 1 daily CYANOCOBAL HUNT 40637461326 No Longer Active Ashley Merazmadonna DELANEY Active ESTRADIOL 2 MG TABS Take 1 tablet by mouth once daily ESTRADIOL 44016674549 Active Shanelle Rivera RN Active MACROBID 100 MG ORAL CAPSULE 1 cap by mouth twice daily NITROFURANTOIN MONOHYD MACRO 48686091010 No Longer Active Ashley Yang ELAINA Active FISH OIL + D3 9870-2814 MG-UNIT ORAL CAPSULE 1 dailly 4 FISH OIL-CHOLECALCIFEROL 40139657070 Active Ashley Yang ELAINA Acti ve PROAIR HFA 108 (90 BASE) MCG/ACT INHALATION AEROSOL SO LUTION 2 puffs four times a day as needed ALBUTEROL SULFATE 95068139112 No Long er Active Ashley Yokum [employer] Active ZITHROMAX Z-SANJANA 250 MG ORAL TABLET Take 2 tablets toda y and 1 each day till gone AZITHROMYCIN 02473022552 No Longer Active Ashley Yokum [employer] Active POLYTRIM 34576-7.1 UNIT/ML-% OPHTHALMIC SOLUTION 1 gtt to affected eye q3h x 7 days POLYMYXIN B-TRIMETHOPRIM 21852605276 No Longer Active Ashley Yokum [employer] Active IBUPROFEN 200 MG ORAL TABLET Take 3 tablets every 6hrs 201 09/17/15 IBUPROFEN 99976063060 No Longer Active Ashley Yokum [employer] Active DIFLUCAN 150 MG ORAL TABLET Take one tablet today and repeat in 72 hours FLUCONAZOLE 07480247689 No Longer Active Derrick cardenas MD Active DIFLUCAN 150 MG ORAL TABLET 1 by mouth for yeast 03/03 FLUCONAZOLE 16742436359 No Longer Active Ashley Yokum [employer] Active AUGMENTIN 875-125 MG ORAL TABLET Take one tablet twice a day with food AMOXICILLIN-POT CLAVULANATE 35090594878 No Longer Act rancho Ashley Yokum [employer]ER Active CALCIUM 600 + D 600-200 MG-UNIT ORAL TABLET Take one daily CALCIUM CARB-CHOLECALCIFEROL 34130773641 No Longer Active Ashley Yokum [employer]ER Active FLONASE 50 MCG/ACT NASAL SUSPENSION 1 spray each nostr il twice daily for allergies and runny nose FLUTICASONE PROPIONATE 60449231013 No Longer Active Ashley Yokum [employer] Active CLARITIN-D 12 HOUR 5-120 MG ORAL TABLET EXTENDED RELEA SE 12 HOUR Take one tablet BID as needed for allergies LORATADINE-PSEUDOEP HEDRINE 05127059897 No Longer Active Beth Nafgeeta PRODUCTION MAINTENANCE TECHNICIAN Active AMOXICILLIN-POT CLAVULANATE 875-125 MG ORAL TABLET 1 pill by mouth twice daily AMOXICILLIN-POT CLAVULANATE 62769474842 No Longer Act rancho Ashley Yang [employer]ER Active AMOXICILLIN 500 MG ORAL CAPSULE Take 1 capsule by mout h three times a day X 10 days AMOXICILLIN 36106018263 No Longer Active Wayne H arms PA Active PROBIOTIC DAILY ORAL CAPSULE Take one daily PROBIO TIC PRODUCT 05642074587 Active Wayne Harms PA Active TYLENOL 325 MG ORAL TABLET Take 2 every 6hrs prn A CETAMINOPHEN 04316447212 Active Wayne Harms PA Active ACETAMINOPHEN 500 MG ORAL TABLET prn RICH TAMINOPHEN 44288667570 No Longer Active Wayne Harms PA Active CLARITIN-D 12 HOUR 5-120 MG ORAL TABLET EXTENDED RELEA SE 12 HOUR Take one tablet bid LORATADINE-PSEUDOEPHEDRINE 47368853828 No Longe r Active Wayne Harms PA Active MOBIC 15 MG ORAL TABLET 1 tablet by mouth daily in am with PPI 2 MELOXICAM 59784335209 No Longer Active Wayne Harms PA Acti ve HYDROCORTISONE 2.5 % EXTERNAL CREAM Apply three times a day to affected area HYDROCORTISONE 75010418761 No Longer Active Wayne Harms PA Active VITAMIN D3 1000 UNIT ORAL TABLET Take two daily CHOLECALCIFEROL 01374247311 No Longer Active Wayne Harms PA Active PROBIOTIC ORAL CAPSULE Take one daily PROBIOTIC PRODUCT 05633183901 No Longer Active Wayne Harms PA Active GREEN TEA SLIM ORAL TABLET Take one daily [facility] NATURAL PRODUCTS 18711991594 No Longer Active Wayne Harms PA Active BENZONATATE 200 MG ORAL CAPSULE Take one capsule three times a d ay BENZONATATE 43670547101 No Longer Active Wayne Harms PA Act rancho ZITHROMAX Z-SANJANA 250 MG ORAL TABLET 2 today, then 1 daily for 4 d ays AZITHROMYCIN 99144008941 No Longer Active Wayne Harms PA Ac tive ZITHROMAX 250 MG ORAL TABLET 2 po today, then 1 po q days 2-5 20 31/03/18 AZITHROMYCIN 91871978650 No Longer Active Beth Turner PRODUCTION MAINTENANCE TECHNICIAN Active OMEPRAZOLE 20 MG ORAL CAPSULE DELAYED RELEASE 1 tablet by mo [facility] daily OMEPRAZOLE 70948598736 Active Supriya Huston RMA Active ZITHROMAX Z-SANJANA 250 MG ORAL TABLET 2x1day,[id number] 2014 AZITHROMYCIN 19433989831 No Longer Active Wayne Harms PA Active FISH OIL 1200 MG ORAL CAPSULE One daily prn OME GA-3 FATTY ACIDS 67823405075 No Longer Active Wayne Harms PA Active CEPHALEXIN 250 MG ORAL CAPSULE Take one tablet qid 201 05/25/29 CEPHALEXIN 48007559499 No Longer Active Wayne Harms PA Active VITAMIN D3 1000 UNIT ORAL TABLET 1qd CHOLEC ALCIFEROL 59343335892 No Longer Active Wayne Harms PA Active B-12 2000 MCG ORAL TABLET 1qd CYANOCOBALAMI N 04930370382 No Longer Active Wayne Harms PA Active ACIPHEX 20 MG ORAL TABLET DELAYED RELEASE 1qd 10/28 RABEPRAZOLE SODIUM 80361445357 No Longer Active Wayen Harms PA Active HYDROCORTISONE 2.5 % EXTERNAL CREAM apply 3-4 times a day to affected area HYDROCORTISONE 15232365731 No Longer Active Wayne Harms PA Active MUCINEX 600 MG ORAL TABLET EXTENDED RELEASE 12 HOUR 2qd GUAIFENESIN 48955070490 No Longer Active Wayne Harms PA Active TUSSIONEX PENNKINETIC ER 10-8 MG/5ML ORAL SUSPENSION E XTENDED RELEASE 5ml po q12hr PRN Cough HYDROCOD POLST-CHLORPHEN POLST 5 9112243849 No Longer Active Wayne Harms PA Active ZITHROMAX 250 MG ORAL TABLET 2 po today, then 1 po q days 2-5 20 26/06/21 AZITHROMYCIN 24409158556 No Longer Active Wayne Harms PA Ac tive CLARITIN 10 MG ORAL TABLET one tablet daily THEO ATADINE 65873513770 No Longer Active Wayne Harms PA Active FLAGYL 500 MG ORAL TABLET 1 tablet by mouth three times daily 20 28/05/03 METRONIDAZOLE 60177703977 No Longer Active Wayne Harms PA A ctive CHERATUSSIN AC 100-10 MG/5ML ORAL SYRUP one teaspoon qid. 9 GUAIFENESIN-CODEINE 15439605759 No Longer Active Wayne Harms PA Act rancho VITAMIN D 1000 UNIT ORAL TABLET 1qd CHOLECA LCIFEROL 47561605081 No Longer Active Wayne Harms PA Active CYMBALTA 60 MG ORAL CAPSULE DELAYED RELEASE PARTICLES 1 cap by mouth daily DULOXETINE HCL 80213347238 No Longer Active Wayne Harms PA Active AMOXICILLIN 500 MG ORAL CAPSULE 2 caps tid for 10days AMOXICILLIN 43234947208 No Longer Active Wayne Harms PA Active CALCIUM + D 600-200 MG-UNIT TABS Take one by mouth daily CALCIUM CARBONATE-VITAMIN D 70056895724 No Longer Active Wayne Harms PA Active CENTRUM SILVER ADULT 50+ ORAL TABLET 1qd 2013 MULTIPLE VITAMINS-MINERALS 03382643768 No Longer Active Wayne Harms PA Active VENLAFAXINE HCL 75 MG ORAL TABLET 1tid VE NLAFAXINE HCL 94807757101 No Longer Active Wayne Harms PA Active CLARITIN 10 MG ORAL TABLET 1 tablet by mouth daily as needed for allergies LORATADINE 25099465526 No Longer Active Wayne Harms PA Acti ve HYDROCORTISONE 2.5 % EXTERNAL CREAM Apply four times a day to af fected area HYDROCORTISONE 49161735013 No Longer Active Wayne Harms PA Active ZITHROMAX 250 MG ORAL TABLET 2 po today, then 1 po q days 2-5 20 26/02/30 AZITHROMYCIN 96683724996 No Longer Active Wayne Harms PA Ac tive ZITHROMAX 250 MG ORAL TABLET 2 po today, then 1 po q days 2-5 20 27/02/16 AZITHROMYCIN 71358980068 No Longer Active Wayne Harms PA Ac tive CYMBALTA 30 MG ORAL CAPSULE DELAYED RELEASE PARTICLES 3 caps daily DULOXETINE HCL 35884192766 No Longer Active Wayne Harms PA Active CYMBALTA 60 MG ORAL CAPSULE DELAYED RELEASE PARTICLES one tablet daily, takes 30mg. with 60mg. to make 90 mg. DULOXETINE HCL 33277443224 No Longer Active Wayne Harms PA Active CYMBALTA 30 MG ORAL CAPSULE DELAYED RELEASE PARTICLES 1 daily wi th 60mg DULOXETINE HCL 70857798179 No Longer Active Wayne Harms PA Active ZITHROMAX 250 MG ORAL TABLET 2 po today, then 1 po q days 2-5 20 26/12/21 AZITHROMYCIN 35818013154 No Longer Active Ismael YANG Active PREDNISONE 20 MG ORAL TABLET 3tab x 2days,2tab x 2days ,1tab x 2days,1/2tab x 2days PREDNISONE 15338147910 No Longer Active Wayne Evra jarvis PA Active PREMARIN 0.625 MG ORAL TABLET Take one by mouth daily ESTROGENS CONJUGATED 29705550164 No Longer Active Wayne Harms PA Active ZITHROMAX 250 MG ORAL TABLET 2 po today, then 1 po q days 2-5 20 26/06/19 AZITHROMYCIN 46339417581 No Longer Active Nereyda Lucke Activ e OMEGA-3 1000 MG ORAL CAPSULE 2qd OMEGA-3 FA TTY ACIDS 37538944309 No Longer Active Wayne Harms PA Active BENADRYL ITCH STOPPING 1-0.1 % EXTERNAL CREAM prn DIPHENHYDRAMINE- ZINC ACETATE 76797716776 No Longer Active Wayne Harms PA Active LOTRISONE 1-0.05 % EXTERNAL CREAM Apply bid CLOTRIMAZOLE-BETAMETHASONE 60797039329 No Longer Active Wayne Harms PA Active ZITHROMAX Z-SANJANA 250 MG ORAL TABLET take as directed 20 26/04/19 AZITHROMYCIN 03669264396 No Longer Active Wayne Harms PA Active NYSTATIN 153161 UNIT/GM EXTERNAL POWDER Apply to affected areas BID NYSTATIN 30050898818 No Longer Active Wayne Harms PA Acti ve BENADRYL 25 MG ORAL CAPSULE prn DIPHENHYDRAMINE HCL 58643822559 Active Wayne Harms PA Active LOTRISONE 1-0.05 % EXTERNAL CREAM apply twice a day 20 25/02/17 CLOTRIMAZOLE-BETAMETHASONE 32243377074 No Longer Active Wayne Harms PA Active HYDROCODONE-ACETAMINOPHEN 5-325 MG ORAL TABLET 1-2 every 4hr s prn pain HYDROCODONE-ACETAMINOPHEN 33282954870 No Longer Activ e Wayne Red PA Active VICODIN 5-300 MG ORAL TABLET 1-2 tabs every 6hrs as needed for p ain HYDROCODONE-ACETAMINOPHEN 21275680638 No Longer Active Wayne Red PA Active BENADRYL 25 MG ORAL CAPSULE 1prn DIPHENHYDRA MINE HCL 63086378753 No Longer Active Jillina Frazell [employer] ASSEMBLER Active ROBITUSSIN DM 100-10 MG/5ML ORAL SYRUP 2 teaspoons four times a day DEXTROMETHORPHAN-GUAIFENESIN 97411768121 No Longer Active Jillina Frazell [employer] ASSEMBLER Active ACIPHEX 20 MG ORAL TABLET DELAYED RELEASE Take one by mouth daily RABEPRAZOLE SODIUM 76804094542 No Longer Active Jillina Frazell [employer] BRUSH ASSEMBLER Active TUMS 500 MG ORAL TABLET CHEWABLE prn SADIQ CIUM CARBONATE ANTACID 08032130794 No Longer Active Jillina Frazell [employer] ASSEMBLER Active PEPTO-BISMOL 524 MG/30ML ORAL SUSPENSION prn 02/26 BISMUTH SUBSALICYLATE 07861755110 No Longer Active Jillina Frazell [employer]SEMBLER Active BACTRIM DS 800-160 MG ORAL TABLET 1bid SULFAMETHOXAZOLE-TRIMETHOPRIM 67122814891 No Longer Active Beth Naff PRODUCTION MAINTENANCE TECHNICIAN Active GAVISCON EXTRA RELIEF FORMULA CHEW prn A LUM HYDROXIDE-MAG CARBONATE CHEW 90436313049 Active Wayne Red PA Active DIFLUCAN 150 MG ORAL TABLET 1stat FLUCONAZOL E 81936075284 No Longer Active Wayne Red PA Active AUGMENTIN 875-125 MG ORAL TABLET 1 tab by mouth twice daily with food AMOXICILLIN-POT CLAVULANATE 25247625861 No Longer Act rancho Wayne Red PA Active FLUTICASONE PROPIONATE 50 MCG/ACT NASAL SUSPENSION 1 t o 2 sprays each nostril twice a day FLUTICASONE PROPIONATE 37705048975 No Lo nger Active Wayne Harms PA Active HYDROCORTISONE 2.5 % EXTERNAL CREAM apply 2-4 times a day, a s directed, prn HYDROCORTISONE 75666311769 No Longer Active Wayne Harms PA Active ZITHROMAX Z-SANJAAN 250 MG ORAL TABLET A ZITHROMYCIN 95931323118 No Longer Active Wayne Harms PA Active SIMVASTATIN 40 MG ORAL TABLET one tablet daily SIMVASTATIN 06024256028 No Longer Active Misty Yoo PRODUCTION MAINTENANCE TECHNICIAN Active LOVASTATIN 40 MG ORAL TABLET Take one by mouth daily 12/11 LOVASTATIN 95691046584 No Longer Active Misty Yoo PRODUCTION MAINTENANCE TECHNICIAN Active PREDNISONE 20 MG ORAL TABLET 2 PO qd x 2d, 1 PO qd x 2d, 1/2 PO qd x 2d PREDNISONE 75201713768 No Longer Active Ismael silva PA Active ZITHROMAX 250 MG ORAL TABLET two tablets now and one daily x 4 d ays AZITHROMYCIN 85154969409 No Longer Active Misty Yoo LPN Active ZOLPIDEM TARTRATE 10MG TABS (ZOLPIDEM TARTRATE) 1 at bedtime as needed Active Supriya Huston RMA Active CLOBETASOL PROPIONATE 0.05 % EXTERNAL CREAM apply as directed CLOBETASOL PROPIONATE 82441506498 No Longer Active Wayne Harms PA A ctive CYMBALTA 30 MG ORAL CAPSULE DELAYED RELEASE PARTICLES takes 90mg qod alt with 60mg DULOXETINE HCL 10291835777 No Longer Active Wayne Harm s PA Active ZITHROMAX 250 MG ORAL TABLET 2 po today, then 1 po q days 2-5 20 12/24/14 AZITHROMYCIN 53688333011 No Longer Active Wayne Harms PA Ac tive TRIAMCINOLONE ACETONIDE 0.1 % EXTERNAL CREAM apply qid TRIAMCINOLONE ACETONIDE 62325218350 No Longer Active Wayne Harms PA Active ALPRAZOLAM 0.25 MG ORAL TABLET 1 tab three times a day 201 02/23/14 ALPRAZOLAM 90720605207 No Longer Active Wayne Harms PA Active ZOLPIDEM TARTRATE 5 MG ORAL TABLET 1 at bedtime as needed ZOLPIDEM TARTRATE 86807687698 No Longer Active Beth Turner PRODUCTION MAINTENANCE TECHNICIAN Active ALPRAZOLAM 0.25 MG ORAL TABLET 1 tab three times a day ALPRAZOLAM 0.25 MG ORAL TABLET 837725 ALPRAZOLAM Inactive TRIAMCINOLONE ACETONIDE 0.1 % EXTERNAL CREAM apply qid TRIAMCINOLONE ACETONIDE 0.1 % EXTERNAL CREAM 1499336 TRIAMCINOLONE A CETONIDE Inactive CYMBALTA 30 MG ORAL CAPSULE DELAYED RELEASE PARTICLES takes 90mg qod alt with 60mg CYMBALTA 30 MG ORAL CAPSULE DELAYED RELEA SE PARTICLES 198925 DULOXETINE HCL Inactive CLOBETASOL PROPIONATE 0.05 % EXTERNAL CREAM apply as directed CLOBETASOL PROPIONATE 0.05 % EXTERNAL CREAM 535041 CLOBETASOL PROPI KELVIN Inactive LOVASTATIN 40 MG ORAL TABLET Take one by mouth daily 2 LOVASTATIN 40 MG ORAL TABLET 476179 LOVASTATIN Inactive ZITHROMAX Z-SANJANA 250 MG ORAL TABLET 03/03 ZITHROMAX Z-SANJANA 250 MG ORAL TABLET 644311 AZITHROMYCIN Inactive HYDROCORTISONE 2.5 % EXTERNAL CREAM apply 2-4 times a day, a s directed, prn HYDROCORTISONE 2.5 % EXTERNAL CREAM 715208 HYDRO CORTISONE Inactive FLUTICASONE PROPIONATE 50 MCG/ACT NASAL SUSPENSION 1 t o 2 sprays each nostril twice a day FLUTICASONE PROPIONA TE 50 MCG/ACT NASAL SUSPENSION 6802895 FLUTICASONE PROPIONATE Inactive AUGMENTIN 875-125 MG ORAL TABLET 1 tab by mouth twice daily with food AUGMENTIN 875-125 MG ORAL TABLET AMOXICIL BLOSSOM-POT CLAVULANATE Inactive DIFLUCAN 150 MG ORAL TABLET 1stat DIFLUCAN 150 MG ORAL TABLET 569967 FLUCONAZOLE Inactive PEPTO-BISMOL 524 MG/30ML ORAL SUSPENSION prn PEPTO-BISMOL 524 MG/30ML ORAL SUSPENSION BISMUTH SUBSALICYLATE Inactive TUMS 500 MG ORAL TABLET CHEWABLE prn TUMS 500 MG ORAL TABLET CHEWABLE 866866 CALCIUM CARBONATE ANTACID Inactive ACIPHEX 20 MG ORAL TABLET DELAYED RELEASE Take one by mouth daily ACIPHEX 20 MG ORAL TABLET DELAYED RELEASE 295694 RABEPRAZOLE SODIUM Inactive ROBITUSSIN DM 100-10 MG/5ML [...] pain HYDROCODONE-ACETAMINOPHEN 5-325 MG ORAL TABLET 8 04393 HYDROCODONE-ACETAMINOPHEN Inactive LOTRISONE 1-0.05 % EXTERNAL CREAM apply twice a day 20 25/02/17 LOTRISONE 1- 0.05 % EXTERNAL CREAM CLOTRIMAZOLE-BETAMETHASONE Inactive NYSTATIN 473728 UNIT/GM EXTERNAL POWDER Apply to affected areas BID NYSTATIN 897685 UNIT/GM EXTERNAL POWDER 035850 NYSTATIN Inactive ZITHROMAX Z-SANJANA 250 MG ORAL TABLET take as directed 20 26/04/19 ZITHROMAX Z-SANJANA 250 MG ORAL TABLET 697968 AZITHROMYCIN Inact ranch[place] LOTRISONE 1-0.05 % EXTERNAL CREAM Apply bid LOTRISONE 1- 0.05 % EXTERNAL CREAM CLOTRIMAZOLE-BETAMETHASONE Inactive BENADRYL ITCH STOPPING 1-0.1 % EXTERNAL CREAM prn BENADRYL ITCH STOPPING 1-0.1 % EXTERNAL CREAM DIPHENHYDRAMINE-ZINC ACETATE Inactive OMEGA-3 1000 MG ORAL CAPSULE 2qd OMEGA-3 1000 MG ORAL CAPSULE 608428 OMEGA-3 FATTY ACIDS Inactive ZITHROMAX 250 MG ORAL TABLET 2 po today, then 1 po q days 2-5 20 26/06/19 ZITHROMAX 250 MG ORAL TABLET 886717 AZITHROMYCIN Mara ctive PREMARIN 0.625 MG ORAL TABLET Take one by mouth daily PREMARIN 0.625 MG ORAL TABLET ESTROGENS CONJUGATED Inactive PREDNISONE 20 MG ORAL TABLET 3tab x 2days,2tab x 2days ,1tab x 2days,1/2tab x 2days PREDNISONE 20 MG ORAL TABLET 664753 PREDNIS ONE Inactive CYMBALTA 30 MG ORAL CAPSULE DELAYED RELEASE PARTICLES 1 daily wi th 60mg CYMBALTA 30 MG ORAL CAPSULE DELAYED RELEASE PARTICLES 950515 DULOXETINE HCL Inactive CYMBALTA 60 MG ORAL CAPSULE DELAYED RELEASE PARTICLES one tablet daily, takes 30mg. with 60mg. to make 90 mg. CYMBALTA 60 MG ORAL CAPSULE DELAYED RELEASE PARTICLES 130961 DULOXETINE HCL Inacti ve CYMBALTA 30 MG ORAL CAPSULE DELAYED RELEASE PARTICLES 3 caps daily CYMBALTA 30 MG ORAL CAPSULE DELAYED RELEASE PARTICLES 100180 DULOXE ROSANNE HCL Inactive HYDROCORTISONE 2.5 % EXTERNAL CREAM Apply four times a day to af fected area HYDROCORTISONE 2.5 % EXTERNAL CREAM 048692 HYDROCORTISO NE Inactive CLARITIN 10 MG ORAL TABLET 1 tablet by mouth daily as needed for allergies CLARITIN 10 MG ORAL TABLET 863187 LORATADINE Inact rancho VENLAFAXINE HCL 75 MG ORAL TABLET 1tid VENLAFAXINE HCL 75 MG ORAL TABLET 890123 VENLAFAXINE HCL Inactive CENTRUM SILVER ADULT 50+ ORAL TABLET 1qd 2013 CENTRUM SILVER ADULT 50+ ORAL TABLET MULTIPLE VITAMINS-MINERALS Inactive CALCIUM + D 600-200 MG-UNIT TABS Take one by mouth daily CALCIUM + D 600-200 MG-UNIT TABS CALCIUM CARBONATE-VITAMIN D Inactive AMOXICILLIN 500 MG ORAL CAPSULE 2 caps tid for 10days AMOXICILLIN 500 MG ORAL CAPSULE 504136 AMOXICILLIN Inactive CYMBALTA 60 MG ORAL CAPSULE DELAYED RELEASE PARTICLES 1 cap by mouth daily CYMBALTA 60 MG ORAL CAPSULE DELAYED RELE ASE PARTICLES 953954 DULOXETINE HCL Inactive VITAMIN D 1000 UNIT ORAL TABLET 1qd 4 VITAMIN D 1000 UNIT ORAL TABLET CHOLECALCIFEROL Inactive CHERATUSSIN AC 100-10 MG/5ML ORAL SYRUP one teaspoon qid. 9 CHERATUSSIN AC 100-10 MG/5ML ORAL SYRUP GUAIFENESIN-CODEINE Inactive FLAGYL 500 MG ORAL TABLET 1 tablet by mouth three times daily 20 28/05/03 FLAGYL 500 MG ORAL TABLET 335494 METRONIDAZOLE Inacti ve CLARITIN 10 MG ORAL TABLET one tablet daily CLARITIN 10 MG ORAL TABLET 371079 LORATADINE Inactive TUSSIONEX PENNKINETIC ER 10-8 MG/5ML [...] affected area HYDROCORTISONE 2.5 % EXTERNAL CREAM 795944 HYDRO CORTISONE Inactive ACIPHEX 20 MG ORAL TABLET DELAYED RELEASE 1qd ACIPHEX 20 MG ORAL TABLET DELAYED RELEASE 219223 RABEPRAZOLE SODIUM Inactive B-12 2000 MCG ORAL TABLET 1qd B-12 2000 MCG ORAL TABLET CYANOCOBALAMIN Inactive VITAMIN D3 1000 UNIT ORAL TABLET 1qd VITAMIN D3 1000 UNIT ORAL TABLET CHOLECALCIFEROL Inactive CEPHALEXIN 250 MG ORAL CAPSULE Take one tablet qid 201 05/25/29 CEPHALEXIN 250 MG ORAL CAPSULE 370843 CEPHALEXIN Inactive FISH OIL 1200 MG ORAL CAPSULE One daily prn FISH OIL 1200 MG ORAL CAPSULE OMEGA-3 FATTY ACIDS Inactive ZITHROMAX Z-SANJANA 250 MG ORAL TABLET 2x1day,4m8veup 2014 ZITHROMAX Z-SANJANA 250 MG ORAL TABLET 077051 AZITHROMYCIN Inact ranch[place] BENZONATATE 200 MG ORAL CAPSULE Take one capsule three times a d ay BENZONATATE 200 MG ORAL CAPSULE 816415 BENZONATATE Inactive GREEN TEA SLIM ORAL TABLET Take one daily GREEN TEA SLIM ORAL TABLET MISC NATURAL PRODUCTS Inactive PROBIOTIC ORAL CAPSULE Take one daily PROBIOTIC ORAL CAPSULE 6780022 PROBIOTIC PRODUCT Inactive VITAMIN D3 1000 UNIT ORAL TABLET Take two daily 05/05 VITAMIN D3 1000 UNIT ORAL TABLET CHOLECALCIFEROL Inactive HYDROCORTISONE 2.5 % EXTERNAL CREAM Apply three times a day to affected area HYDROCORTISONE 2.5 % EXTERNAL CREAM 047713 HYDRO CORTISONE Inactive MOBIC 15 MG ORAL TABLET 1 tablet by mouth daily in am with PPI 2 MOBIC 15 MG ORAL TABLET 215926 MELOXICAM Inactive CLARITIN-D 12 HOUR 5-120 MG ORAL TABLET EXTENDED RELEA SE 12 HOUR Take one tablet bid CLARITIN-D 12 HOUR 5 -120 MG ORAL TABLET EXTENDED RELEASE 12 HOUR LORATADINE-PSEUDOEPHEDRINE Inactive ACETAMINOPHEN 500 MG ORAL TABLET prn ACETAMINOPHEN 500 MG ORAL TABLET 599237 ACETAMINOPHEN Inactive CLARITIN-D 12 HOUR 5-120 MG [...] yeast 03/03 DIFLUCAN 150 MG ORAL TABLET 262434 FLUCONAZOLE Inactive DIFLUCAN 150 MG ORAL TABLET Take one tablet today and repeat in 72 hours DIFLUCAN 150 MG ORAL TABLET 353647 FLUCONAZOLE Inactive IBUPROFEN 200 MG ORAL TABLET Take 3 tablets every 6hrs IBUPROFEN 200 MG ORAL TABLET 424155 IBUPROFEN Inactive ZITHROMAX Z-SANJANA 250 MG ORAL TABLET Take 2 tablets toda y and 1 each day till gone ZITHROMAX Z-SANJANA 250 MG ORAL TABLET 930417 A ZITHROMYCIN Inactive PROAIR HFA 108 (90 [...] bowels 3 REGLAN 10 MG ORAL TABLET 096704 METOCLOPRAMIDE HCL Inactive PREDNISONE 20 MG ORAL TABLET Take 2 tablets by mouth d aily for 2 days then 1 tablet daily for 2 days. PREDNISONE 20 MG ORAL T ABLET 646073 PREDNISONE Inactive ZYRTEC ALLERGY 10 MG ORAL CAPSULE 1qd ZYRTEC ALLERGY 10 MG ORAL CAPSULE CETIRIZINE HCL Inactive ADK [id number] UNIT-MCG ORAL CAPSULE 1 daily 2 ADK 3809-7189-889 UNIT-MCG ORAL CAPSULE VITAMINS A D K Inac tive ZITHROMAX 250 MG ORAL TABLET 2 po today, then 1 po q days 2-5 20 12/24/14 ZITHROMAX 250 MG ORAL TABLET 064533 AZITHROMYCIN [place] ctive ZITHROMAX 250 MG ORAL TABLET two tablets now and one daily x 4 d ays ZITHROMAX 250 MG ORAL TABLET 616131 AZITHROMYCIN [place] ct[place] PREDNISONE 20 MG ORAL TABLET 2 PO qd x 2d, 1 PO qd x 2d, 1/2 PO qd x 2d PREDNISONE 20 MG ORAL TABLET 894982 PREDNISONE Inactive SIMVASTATIN 40 MG ORAL TABLET one tablet daily SIMVASTATIN 40 MG ORAL TABLET 19810213 SIMVASTATIN Inactive BACTRIM DS 800-160 MG ORAL TABLET 1bid BACTRIM DS 800-160 MG ORAL TABLET 058192 SULFAMETHOXAZOLE-TRIMETHOPRIM Inactive ZITHROMAX 250 MG ORAL TABLET 2 po today, then 1 po q days 2-5 20 26/12/21 ZITHROMAX 250 MG ORAL TABLET 691150 AZITHROMYCIN Mara ctive ZITHROMAX 250 MG ORAL TABLET 2 po today, then 1 po q days 2-5 20 27/02/16 ZITHROMAX 250 MG ORAL TABLET 279660 AZITHROMYCIN [place] ctive ZITHROMAX 250 MG ORAL TABLET 2 po today, then 1 po q days 2-5 20 26/02/30 ZITHROMAX 250 MG ORAL TABLET 591231 AZITHROMYCIN [place] ctive ZITHROMAX 250 MG ORAL TABLET 2 po today, then 1 po q days 2-5 20 26/06/21 ZITHROMAX 250 MG ORAL TABLET 784352 AZITHROMYCIN [place] ctive ZITHROMAX 250 MG ORAL TABLET 2 po today, then 1 po q days 2-5 20 31/03/18 ZITHROMAX 250 MG ORAL TABLET 697316 AZITHROMYCIN Mara ctive ZITHROMAX Z-SANJANA 250 MG ORAL TABLET 2 today, then 1 daily for 4 d ays ZITHROMAX Z-SANJANA 250 MG ORAL TABLET 426153 AZITHROMYCIN Inactive AMOXICILLIN 500 MG ORAL CAPSULE Take 1 capsule by mout h three times a day X 10 days AMOXICILLIN 500 MG ORAL CAPSULE 448034 AMOX ICILLIN Inactive AMOXICILLIN-POT CLAVULANATE 875-125 MG ORAL TABLET 1 pill by mouth twice daily AMOXICILLIN-POT CLAVULANATE 875-125 MG ORAL TABL ET 255394 AMOXICILLIN-POT CLAVULANATE Inactive AUGMENTIN 875-125 MG ORAL TABLET Take one tablet twice a day with food AUGMENTIN 875-125 MG ORAL TABLET AMOXICILLIN-POT CLAVULANATE Inactive POLYTRIM 98162-9.1 UNIT/ML-% OPHTHALMIC SOLUTION 1 gtt to affected eye q3h x 7 days POLYTRIM 31258-9.1 UNIT/ML-% OPH THALMIC SOLUTION 891265 POLYMYXIN B-TRIMETHOPRIM Inactive MACROBID 100 MG ORAL CAPSULE 1 cap by mouth twice daily MACROBID 100 MG ORAL CAPSULE 0846378 NITROFURANTOIN MONOHYD MACRO In active Advance Directives [...] Fluarix, Agriflu(>= 18 yo)) Fluzone (>=3 yrs.) [[id number]] Seasonal influenza vaccine, injectable, containing preservative, for > 3 years old (Afluria, FluLaval, Fluzone, Fluvirin, Fluarix, Agriflu(>= 18 yo)) Fluzone (>3 yrs.) [[id number]] Seasonal influenza vaccine, injectable, containing preservative, for > 3 years old (Afluria, FluLaval, Fluzone, Fluvirin, Fluarix, Agriflu(>= 18 yo)) Fluarix (>3 yrs.) [[id number]] Diagnostic Results Date Name Value Unit Range Description Lab Report: CBC, Comp. Metabolic Panel, Lipid Panel, Magnesium - Chemistry sodium, serum 138 mmol/L 911-718 6876/09/02 carbon dioxide, venous blood 28.0 mmol/L 21.0-32 [...] 0.20 mg/dL 0.00-1.00 cholesterol, serum 228 mg/dL 079-604 6733/09/02 triglyceride, serum, fasting 236 mg/dL 30-200 HDL [...] 0.36-3.74 Encounters Code Encounter Date Provider Facility CPT-78412 94692: Ofc Vst-Est Level IV-Moderate MDM or 30-39 minutes 17:48:09 CDT Ashley Yang [facility] CPT-82961 77308-Inb Vst-Est Level III 17:07:11 CDT Jenny Yang [facility] CPT-04796 34710-Seo Vst-Est Level III 17:51:44 DANCE MASTER [place] [facility] CPT-66382 Level 3 Est. Patient 11:09:39 CDT Viviana Rubio [facility] CPT-69220 76326-Pqi Vst-Est Level IV 09:14:31 CDT Conchis Yang [facility] [place] [facility] [place] CPT-05331 52473-Gxu Vst-Est Level III 22:05:50 CDT Jenny Yang [facility] [place] [facility] [place] CPT-90496 Level 3 Est. Patient 15:00:02 DANCE MASTER Will Cárdenas milka [facility] [place] CPT-87896 Level 2 Est. Patient 13:46:20 CDT Ashley Meraz [facility] [place] CPT-61409 Level 2 Est. Patient 13:45:36 CDT Ashley Meraz [facility] [place] CPT-92227 Level 3 Est. Patient 15:52:07 CDT Ashley Kt [facility] [place] CPT-64792 Level 3 Est. Patient 08:20:37 CDT Ashley Mirелена [facility] [place] CPT-78967 Level 3 Est. Patient 15:06:41 CDT Derrick donaldson MD [facility] CPT-54412 Level 3 Est. Patient 11:13:21 DANCE MASTER Derrick donaldson MD [facility] CPT-73061 Level 3 Est. Patient 12:54:25 DANCE MASTER Ashley Meraz [facility] [place] CPT-63168 Level 3 Est. Patient 23:34:49 DANCE MASTER Ashley Meraz [facility] [place] CPT-80686 Level 3 Est. Patient 16:37:09 DANCE MASTER Ashley peacock [facility] [place] [facility] [place] CPT-64681 Level 3 Est. Patient 11:59:30 DANCE MASTER Ashley peacock [facility] [place] [facility] [place] CPT-16004 Level 4 Est. Patient 07:40:13 CDT Wayne delatorre [facility] CPT-41649 Level 4 Est. Patient 08:06:18 CDT Wayne delatorre [facility] [place] [facility] CPT-22560 Level 3 Est. Patient 11:14:45 CDT Wayne delatorre [facility] [place] CPT-66263 Level 3 Est. Patient 10:14:55 CDT Wayne delatorre [facility] [place] CPT-45264 Level 4 Est. Patient 15:23:47 CDT [facility]PT-33705 Level 3 Est. Patient 07:50:51 DANCE MASTER Wayne delatorre [facility] [place] [facility] CPT-45845 Level 3 Est. Patient 14:47:52 CDT [facility] CPT-20541 Level 3 Est. Patient 11:28:46 CDT Wayne delatorre PA [facility] [place] [facility] CPT-49359 Level 4 Est. Patient 14:48:43 CDT Wayne delatorre [facility] [place] [facility] CPT-37452 Level 3 Est. Patient 14:10:18 DANCE MASTER Wayne delatorre [facility] [place] [facility] CPT-11226 Level 3 Est. Patient 16:44:33 DANCE MASTER [facility] CPT-25424 Level 4 Est. Patient 08:22:34 DANCE MASTER [facility] CPT-99253 Level 4 Est. Patient 07:10:30 CDT Wayne delatorre [facility] CPT-49456 Level 3 Est. Patient 14:50:20 DANCE MASTER Wayne delatorre [facility] CPT-75020 Level 3 Est. Patient 09:46:08 DANCE MASTER Zuleika cha APRN [facility] [place] CPT-65546 Level 4 Est. Patient 07:56:24 DANCE MASTER Wayne delatorre [facility] CPT-47069 Level 3 Est. Patient 12:13:53 CDT Ismael Denton [facility] CPT-81848 Level 4 Est. Patient 12:28:51 DANCE MASTER Wayne delatorre [facility] CPT-76590 Level 3 Est. Patient 15:23:42 DANCE MASTER Wayne delatorre [facility] CPT-29945 Level 3 Est. Patient 06:34:33 DANCE MASTER Wayne delatorre [facility] Procedures Code Procedure Name Date Entry Date Standard Desc ription CPT-50329 Allergy Admin 2 16:06:08 CDT CPT-85636 Allergy Admin 2 16:51:42 CDT CPT-65931 Allergy Admin 2 16:26:50 CDT CPT-16659 Allergy Admin 2 17:02:53 CDT CPT-67716 Allergy Admin 2 16:32:35 CDT CPT-19727 Allergy Admin 2 16:26:27 CDT CPT-J3420 Vitamin B12 1000mcg (Cyanocobalamin) 16:32:13 CDT CPT-68478 Abx/Therapy Injection 16:32:13 CDT CPT-30701 Allergy Admin 2 16:32:12 CDT CPT-68981 Allergy Admin 2 16:05:03 CDT CPT-79170 Allergy Admin 2 16:35:15 CDT CPT-82059 Allergy Admin 2 16:20:41 CDT CPT-89276 Allergy Admin 2 11:25:21 CDT CPT-72202 Allergy Admin 2 15:46:12 CDT CPT-[id number] (4274F) Influenza immunization administe red or previously received 17:51:44 DANCE MASTER CPT-44290 Spec Collection and Handling Fee 10:45:[address] CPT-[id number] (4274F) Influenza immunization administe red or previously received 10:20:17 CDT CPT-43266 Prv Med Est Pt 40-64yrs 16:26:57 CDT CPT-73505 Venipuncture Draw Fee 11:08:31 CDT CPT-48700 Magnesium - LAB USE ONLY 11:08:31 CDT 10/15 CPT-03833 TSH - LAB USE ONLY 11:08:31 CDT CPT-86303 Lipid - LAB USE ONLY 11:08:30 CDT 2 CPT-40971 CMP - LAB USE ONLY 11:08:30 CDT CPT-21906 CBC - LAB USE ONLY 11:08:30 CDT CPT-28670 Spec Collection and Handling Fee 16:14:51 C DT CPT-54898 UA w micro - LAB USE ONLY 16:14:51 CDT 2018 CPT-55171 Prv Med Est Pt 40-64yrs 08:34:49 CDT 10/01 CPT-07716 Sed Rate - LAB USE ONLY 10:50:49 CDT 10/02 CPT-78449 TSH - LAB USE ONLY 10:50:49 CDT CPT-22706 Lipid - LAB USE ONLY 10:50:49 CDT 0 CPT-93847 Magnesium - LAB USE ONLY 10:50:49 CDT 10/02 CPT-78678 CMP - LAB USE ONLY 10:50:49 CDT CPT-76374 CBC - LAB USE ONLY 10:50:49 CDT CPT-20096 Venipuncture Draw Fee 10:50:49 CDT CPT-83847 IV Hydration < or = 1 hr 22:05:50 CDT 04/16 CPT-J7030 Normal Saline 1000 mL 22:05:50 CDT CPT-47065 Abx/Therapy Injection 16:31:51 DANCE MASTER CPT-J2950 Phenergan 25 mg 16:31:51 DANCE MASTER CPT-84689 Abx/Therapy Injection 16:39:40 CDT CPT-91967 First Vx - Ix admin via ID I M or jet injects without counseling by physician 16:39:39 CDT CPT-22669 Prv Med Est Pt 40-64yrs 16:33:10 CDT 11/10 CPT-JTINJ Asp/Joint Injection 16:13:36 CDT CPT-88349 Allergy Admin 2 16:54:52 CDT CPT-83711 Allergy Admin 2 16:46:15 CDT CPT-08700 Allergy Admin 2 11:29:09 CDT CPT-56577 Allergy Admin 2 17:05:15 CDT CPT-02011 Allergy Admin 2 12:31:51 CDT CPT-40074 Allergy Admin 2 15:40:56 CDT CPT-43488 CBC - LAB USE ONLY 09:49:24 CDT CPT-06195 CMP - LAB USE ONLY 09:49:24 CDT CPT-24281 Lipid - LAB USE ONLY 09:49:24 CDT 8 CPT-94519 Venipuncture Draw Fee 09:49:24 CDT CPT-26254 Allergy Admin 2 10:46:11 CDT CPT-JTINJ Asp/Joint Injection 09:52:58 CDT CPT-49604 Skin tag rem 1-15 13:46:20 CDT CPT-11884 Knee, right, 3V - XRAY USE ONLY 13:07:09 CD T CPT-18493 Allergy Admin 2 11:56:38 CDT CPT-36721 Allergy Admin 2 12:00:55 CDT CPT-80093 Allergy Admin 2 16:42:13 CDT CPT-07213 Allergy Admin 2 16:27:55 CDT CPT-47448 Allergy Admin 2 13:24:26 CDT CPT-06972 Allergy Admin 2 17:17:57 DANCE MASTER CPT-06124 Allergy Admin 2 16:23:22 DANCE MASTER CPT-82518 Allergy Admin 2 16:26:55 [facility] CPT-92989 Allergy Admin 2 16:32:33 [facility] CPT-80554 Allergy Admin 2 17:43:40 [facility] CPT-62482 Allergy Admin 2 16:26:07 [facility] CPT-67647 Allergy Admin 2 12:31:50 [facility] CPT-45756 Allergy Admin 2 16:40:38 [facility] CPT-36027 Allergy Admin 2 17:07:36 CDT CPT-G0008 Administration of Influenza Virus Vaccine 17:01:01 CDT CPT-69630 First Vx - Ix admin via ID I M or jet injects without counseling by physician 17:01:01 CDT CPT-71426 Allergy Admin 2 12:06:54 CDT CPT-25865 Allergy Admin 2 17:04:46 CDT CPT-14854 Allergy Admin 2 16:34:48 CDT CPT-06671 Allergy Admin 2 17:04:51 CDT CPT-97388 Allergy Admin 2 16:25:14 CDT CPT-73988 Allergy Admin 2 10:52:02 CDT CPT-80743 Allergy Admin 2 11:45:31 CDT CPT-09326 Allergy Admin 2 12:02:20 CDT CPT-43104 Allergy Admin 2 15:47:29 CDT CPT-88683 Allergy Admin 2 13:25:44 CDT CPT-75493 Allergy Admin 2 10:51:13 CDT CPT-00782 CBC - LAB USE ONLY 10:44:39 CDT CPT-54754 CMP - LAB USE ONLY 10:44:39 CDT CPT-74221 Lipid - LAB USE ONLY 10:44:39 CDT 9 CPT-63027 Venipuncture Draw Fee 10:44:38 CDT CPT-05016 Allergy Admin 2 12:25:22 CDT CPT-54505 Allergy Admin 2 12:41:34 CDT CPT-16605 Allergy Admin 2 15:29:46 CDT CPT-95370 Allergy Admin 2 14:46:53 CDT CPT-49681 Allergy Admin 2 14:16:16 CDT CPT-16337 Allergy Admin 2 16:55:26 CDT CPT-80073 Allergy Admin 2 10:12:02 CDT CPT-37413 Allergy Admin 2 14:53:56 CDT CPT-26276 Allergy Admin 2 17:01:54 T CPT-94518 Allergy Admin 2 09:36:02 CDT CPT-28983 Allergy Admin 2 16:53:26 [facility] CPT-26706 Allergy Admin 2 16:59:41 [facility] CPT-10598 Allergy Admin 2 16:36:44 [facility] CPT-90277 Allergy Admin 2 16:17:16 [facility] CPT-06057 Allergy Admin 2 17:08:10 [facility] CPT-86026 Allergy Admin 2 12:16:08 DANCE MASTER CPT-57367 Allergy Admin 2 16:47:30 DANCE MASTER CPT-23444 Allergy Admin 2 16:59:44 DANCE MASTER CPT-76474 Allergy Admin 2 12:48:53 DANCE MASTER CPT-69455 Allergy Admin 2 10:19:48 DANCE MASTER CPT-35355 Allergy Admin 2 12:40:17 DANCE MASTER CPT-56898 Abx/Therapy Injection 17:21:59 DANCE MASTER CPT-41868 First Vx - Ix admin via ID I M or jet injects without counseling by physician 17:21:57 DANCE MASTER CPT-11034 Allergy Admin 2 17:20:12 DANCE MASTER CPT-22712 Allergy Admin 2 11:12:50 DANCE MASTER CPT-83763 Allergy Admin 2 17:02:39 CDT CPT-63778 BMP - LAB USE ONLY 10:33:02 CDT CPT-46865 CBC - LAB USE ONLY 10:33:02 CDT CPT-78640 Venipuncture Draw Fee 10:33:02 CDT CPT-45943 Abx/Therapy Injection 12:29:08 CDT CPT-37046 Allergy Admin 2 10:39:48 CDT CPT-69500 Allergy Admin 2 10:55:47 CDT CPT-PV Prev. Care Visit 10:10:00 CDT CPT-86012 Allergy Admin 2 11:31:20 CDT CPT-50989 Allergy Admin 2 16:53:45 CDT CPT-10885 Allergy Admin 2 16:36:42 CDT CPT-71017 Allergy Admin 2 16:30:19 CDT CPT-14976 Allergy Admin 2 15:39:35 CDT CPT-58507 Allergy Admin 2 17:51:32 CDT CPT-51511 Allergy Admin 2 11:50:50 CDT CPT-PV Prev. Care Visit 14:09:05 CDT CPT-48158 Allergy Admin 2 13:37:39 CDT CPT-28842 Abx/Therapy Injection 12:17:43 CDT CPT-71743 Venipuncture Draw Fee 10:39:55 CDT CPT-93221 Allergy Admin 2 12:04:53 CDT CPT-58910 Allergy Admin 2 10:04:39 CDT CPT-53642 Allergy Admin 2 12:15:35 CDT CPT-31306 Allergy Admin 2 17:04:36 CDT CPT-88582 Allergy Admin 2 16:25:49 CDT CPT-30138 Allergy Admin 2 17:30:06 CDT CPT-82879 Allergy Admin 2 10:11:48 CDT CPT-63350 Allergy Admin 2 17:06:13 CDT CPT-63051 Abx/Therapy Injection 12:23:07 CDT CPT-J0702 Celestone 12 mg (Betamethasone) 12:23:07 CD T CPT-24067 Venipuncture Draw Fee 10:26:42 CDT CPT-90924 Allergy Admin 2 12:10:01 CDT CPT-31996 Allergy Admin 2 15:13:57 DANCE MASTER CPT-42934 Allergy Admin 2 16:55:22 [facility] CPT-91182 Allergy Admin 2 10:13:46 DANCE MASTER CPT-90862 Venipuncture Draw Fee 10:06:08 DANCE MASTER CPT-77229 Allergy Admin 2 16:15:41 DANCE MASTER CPT-37560 Allergy Admin 2 16:40:21 DANCE MASTER CPT-14520 Allergy Admin 2 16:31:48 DANCE MASTER CPT-30076 Allergy Admin 2 16:38:26 DANCE MASTER CPT-89552 Allergy Admin 2 16:40:08 DANCE MASTER CPT-73318 Allergy Admin 2 08:34:27 DANCE MASTER CPT-65078 Allergy Admin 2 14:27:45 DANCE MASTER CPT-89427 Destruction bgn lsn up to 14 09:41:27 [facility] 2 CPT-04364 Allergy Admin 2 17:45:17 [facility] CPT-78192 Allergy Admin 2 14:59:03 [facility] CPT-84805 Allergy Admin 2 12:49:42 CDT CPT-71363 Administration single or combination vac cine inc oral 15:01:57 CDT CPT-89355 Fluzone Quadrivalent Intramuscular Suspe nsion 0.5 ML 15:01:57 CDT CPT-62336 Allergy Admin 2 15:07:08 CDT CPT-35871 Allergy Admin 2 15:39:01 CDT CPT-86544 Allergy Admin 2 17:40:11 CDT CPT-03461 Allergy Admin 2 16:07:08 CDT CPT-99090 Allergy Admin 2 16:08:07 CDT CPT-67705 Venipuncture Draw Fee 09:34:29 CDT CPT-31113 Allergy Admin 2 16:27:43 CDT CPT-86889 Allergy Admin 2 15:53:10 CDT CPT-42878 Allergy Admin 2 15:42:29 CDT CPT-77324 Allergy Admin 2 11:26:14 CDT CPT-01750 Allergy Admin 2 10:36:24 CDT CPT-24685 Allergy Admin 2 16:53:37 CDT CPT-99470 Allergy Admin 2 11:21:44 CDT CPT-73973 Allergy Admin 2 10:50:40 CDT CPT-27103 Allergy Admin 2 11:19:11 CDT CPT-28922 Venipuncture Draw Fee 11:12:25 CDT CPT-37133 Allergy Admin 2 11:14:51 CDT CPT-86547 Allergy Admin 2 16:53:11 CDT CPT-81060 Allergy Admin 2 11:45:56 CDT CPT-95494 Allergy Admin 2 12:51:39 CDT CPT-42911 Allergy Admin 2 12:08:56 CDT CPT-15999 Allergy Admin 2 15:29:45 CDT CPT-53952 Allergy Admin 2 16:34:01 CDT CPT-91037 Allergy Admin 2 16:36:46 CDT CPT-00806 Allergy Admin 2 15:19:16 CDT CPT-19411 Allergy Admin 2 16:13:25 CDT CPT-44503 Allergy Admin 2 17:06:17 CDT CPT-37117 Allergy Admin 2 10:42:10 [employer] CPT-01063 Allergy Admin 2 17:33:16 [employer]ANCE MA[employer] CPT-67580 Allergy Admin 2 10:53:30 [employer] CPT-56638 Allergy Admin 2 14:18:24 [employer]ANCE [employer] CPT-48978 Allergy Admin 2 10:18:29 [employer] CPT-21693 Allergy Admin 2 12:57:40 [employer]ANCE [employer] CPT-99864 Allergy Admin 2 16:53:33 [employer] CPT-35413 Allergy Admin 2 12:43:00 [employer] CPT-23492 Allergy Admin 2 13:14:09 [employer]ANCE [employer] CPT-48431 Pneumovax 23 Injection Injectable 25 MCG /0.5ML 09:51:29 DANCE MASTER CPT-G0009 Administration of Pneumococcal Vaccine 09:51:29 DANCE MASTER CPT-55014 Influenza split virus > age 3 09:51:29 DANCE MA[employer] CPT-G0008 Administration of Influenza Virus Vaccine 02/23 09:51:29 DANCE MASTER CPT-68653 Venipuncture Draw Fee 10:31:06 CDT CPT-J0702 Celestone 12 mg (Betamethasone) 11:34:17 CD T CPT-65440 Abx/Therapy Injection 11:34:17 CDT CPT-07812 Chest 2V Frontal and Lat 11:31:47 CDT 07/04 CPT-67271 Venipuncture Draw Fee 11:31:47 CDT CPT-56925 Allergy Admin 2 14:31:05 CDT CPT-61116 EKG Trac and Interp 08:42:32 CDT CPT-82746 Chest 2V Frontal and Lat 08:42:32 CDT 05/28 CPT-49558 Venipuncture Draw Fee 08:39:02 CDT CPT-91706 Allergy Admin 2 16:59:09 CDT CPT-21367 Allergy Admin 2 17:06:11 CDT CPT-38812 Allergy Admin 2 16:04:36 CDT CPT-19115 Venipuncture Draw Fee 16:32:44 DANCE MASTER CPT-62120 Venipuncture Draw Fee 10:54:37 DANCE MASTER CPT-17491 Allergy Admin 2 14:53:55 DANCE MASTER CPT-21264 Allergy Admin 2 10:23:58 DANCE MASTER CPT-26258 First Vx Component - Ix admi n via ID IM or jet inj without physician counseling 15:34:26 DANCE MASTER CPT-12173 Fluzone (>=3 yrs.) 15:34:26 DANCE MASTER CPT-35392 Allergy Admin 2 15:56:02 DANCE MASTER CPT-08880 Allergy Admin 2 11:08:58 DANCE MASTER CPT-92685 Allergy Admin 2 10:51:36 DANCE MASTER CPT-39860 Allergy Admin 2 15:38:19 DANCE MASTER CPT-92464 Allergy Admin 2 15:12:46 CDT CPT-77760 Allergy Admin 2 10:28:50 CDT CPT-13488 Allergy Admin 2 16:35:33 CDT CPT-44180 Allergy Admin 2 10:14:18 CDT CPT-15169 Abx/Therapy Injection 09:06:45 CDT CPT-J0702 Celestone 6 mg (Betamethasone) 09:06:45 CDT CPT-53182 Allergy Admin 2 15:51:15 CDT CPT-02935 Allergy Admin 2 10:40:16 CDT CPT-52787 Allergy Admin 2 16:35:55 CDT CPT-28024 Allergy Admin 2 13:12:52 CDT CPT-45332 Allergy Admin 2 16:06:50 CDT CPT-80066 Allergy Admin 2 11:04:24 CDT CPT-53294 Allergy Admin 2 10:44:50 CDT CPT-99723 Allergy Admin 2 15:13:40 CDT CPT-13353 Allergy Admin 2 15:00:03 CDT CPT-50685 Allergy Admin 2 10:37:38 CDT CPT-96424 Venipuncture Draw Fee 09:16:43 DANCE MASTER CPT-39751 Allergy Admin 2 11:15:59 DANCE MASTER CPT-29977 Postop F/U Visit 10:10:52 DANCE MASTER CPT-15326 Allergy Admin 2 13:05:05 DANCE MASTER CPT-07548 Postop F/U Visit 19:45:16 DANCE MASTER CPT-53179 Allergy Admin 2 11:52:35 DANCE MASTER CPT-44245 Allergy Admin 2 10:49:22 DANCE MASTER CPT-OV Office Visit 13:55:55 DANCE MASTER CPT-73991 Allergy Admin 2 12:54:28 DANCE MASTER CPT-OV Office Visit 14:04:48 DANCE MASTER CPT-20999 Venipuncture Draw Fee 10:29:14 DANCE MASTER CPT-05952 Allergy Admin 2 11:24:43 DANCE MASTER CPT-23478 Knee 3V 11:00:12 DANCE MASTER CPT-52557 C-Spine Min 4V 11:00:12 DANCE MASTER CPT-40424 Allergy Admin 2 13:38:40 DANCE MASTER CPT-94215 Venipuncture Draw Fee 11:33:37 CDT CPT-21609 Allergy Admin 2 15:34:37 CDT CPT-36754 Allergy Admin 2 14:11:42 CDT CPT-78866 Administration single or combination vac cine inc oral 12:51:42 CDT CPT-00901 Influenza split virus > age 3 12:51:42 CDT CPT-09415 Allergy Admin 2 11:58:43 CDT CPT-01679 Allergy Admin 2 11:29:32 CDT CPT-95538 Allergy Admin 2 10:55:19 CDT CPT-47272 Allergy Admin 2 12:38:54 CDT CPT-70624 Allergy Admin 2 13:01:47 CDT CPT-11283 Abx/Therapy Injection 12:41:18 CDT CPT-J0702 Celestone 12 mg (Betamethasone) 12:41:18 CD T CPT-55138 Abx/Therapy Injection 16:33:09 CDT CPT-J0702 Celestone 12 mg (Betamethasone) 16:33:09 CD T CPT-62073 Allergy Admin 2 15:49:09 CDT CPT-13471 Allergy Admin 2 12:08:56 CDT CPT-12001 Allergy Admin 2 12:19:10 CDT CPT-63359 Allergy Admin 2 12:46:56 CDT CPT-16767 Allergy Admin 2 15:05:13 CDT CPT-01964 Allergy Admin 2 15:36:20 CDT CPT-48838 Allergy Admin 2 09:58:47 DANCE MASTER CPT-75367 Allergy Admin 2 12:18:06 DANCE MASTER CPT-95831 Allergy Admin 2 10:01:48 DANCE MASTER CPT-22919 Allergy Admin 2 12:17:53 DANCE MASTER CPT-83518 Allergy Admin 2 10:06:44 DANCE MASTER CPT-78229 Allergy Admin 2 10:13:04 DANCE MASTER CPT-82251 Venipuncture Draw Fee 10:09:07 DANCE MASTER CPT-82642 Bone Density 12:24:51 DANCE MASTER CPT-64507 Allergy Admin 2 11:29:41 DANCE MASTER CPT-65663 Allergy Admin 2 16:07:15 DANCE MASTER CPT-48681 Breathing Treatment 06:34:33 DANCE MASTER CPT-J0702 Celestone 12 mg (Betamethasone) 06:34:33 CS T CPT-95554 Abx/Therapy Injection 06:34:33 DANCE MASTER CPT-66220 Breathing Tx 11:07:33 DANCE MASTER CPT-33900 Allergy Admin 2 10:02:33 CDT CPT-27574 Allergy Admin 2 10:02:33 CDT CPT-84295 Allergy Admin 2 15:26:19 CDT CPT-73818 Administration single or combination vac cine inc oral 15:41:12 CDT CPT-30126 Influenza split virus > age 3 15:41:12 CDT
--- OUTSIDE RECORDS SUMMARY | 2020-09-15 14:33 | XMS REPORT | Clinical Summary ---
Author Author Admin, Supriya Zuniga Organization [facility] Address Unknown Phone Unavailable Allergies, Adverse Reactions, [...] medications KNEE PAIN, RIGHT 719.46 Resolved Wayne Moon PA Pain in joint involving lower leg KNEE PAIN, RIGHT 719.46 Active Supryia Huston RM A Pain in joint involving [...] SKIN AND NAILS 112.3 Resolved 05/03 Wayne Moon PA Candidiasis of skin and nails AFTERCARE FOLLOW SURGERY MUSCULOSKEL SYSTEM NEC V58.78 03/22 Resolved Wayne Harms PA Aftercare following surgery of the musculoskeletal system, NEC PHARYNGITIS 462 Resolved Wayne Harms PA Acute pharyngitis OTHER SCREENING MAMMOGRAM V76.12 Resolved Wayne Vera jarvis PA Other screening mammogram DYSPAREUNIA, MILD 625.0 Resolved Wayne Harms PA Dyspareunia NEED FOR DESENSITIZATION TO ALLERGENS V07.1 Resolved Wayne Harms PA Need for desensitization to allergens NEED FOR DESENSITIZATION TO ALLERGENS V07.1 Active Lavinia Matute MA Need for desensitization to allergens CONTACT DERMATITIS DUE TO POISON ARANZA 692.6 Resolved Wayne Harms PA Contact dermatitis and other eczema due to plants [except food] Sinusitis, chronic 473.9 Resolved Ashley MONZON RN Unspecified sinusitis (chronic) Myalgia 729.1 Resolved Wayne Harms PA Ange lgia and myositis, unspecified Rheumatoid arthritis 714.0 Resolved Wayne Harms P A Rheumatoid arthritis Diarrhea 787.91 Resolved [...] inoculation against in fluenza V04.81 Resolved Wayne Moon PA Need for proph ylactic vaccination and inoculation against influenza 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 Wayne Mcfarlane arms PA Postsurgical arthrodesis status Onychomycosis -dermatophytosis, [...] Yang APRN Pruritus vulvae Active Ashley Yokum HEADER DOCK Screening mammogram V76.12 Resolved Ashley Yokum A PRN Other screening mammogram Sinusitis, acute maxillary 461.0 Inactive 7 Ashley Yokum HEADER DOCK Acute maxillary sinusitis Diarrhea, acute 787.91 Resolved Ashley Yokum HEADER DOCK Diarrhea Vaginal candidiasis 112.1 Resolved Ashley Yokum A PRN Candidiasis of vulva and vagina Accidental fall E888.9 Resolved Ashley Yokum HEADER DOCK Unspecified fall Contusion of left hand, initial encounter 923.20 Resol burak Ashley Yokum HEADER DOCK Contusion of hand(s) Contusion of right upper arm, subsequent encounter V58.89 201 09/14/21 Resolved Ashley Yokum HEADER DOCK Encounter for other specified a ftercare Ganglion cyst of left wrist 727.41 Active Derrick Younger MD Ganglion of joint Body Mass Index 31.0-31.9 Adult Resolved 2017 Ashley Yokum HEADER DOCK Body Mass Index 31.0-31.9, adult Plantar fasciitis 728.71 Active Ashley Yokum HEADER DOCK Plantar fascial fibromatosis Bronchitis, acute 466.0 Inactive Ashley Yokum APR N Acute bronchitis Body Mass Index 30.0-30.9 Adult Resolved 2017 Ashley Yokum HEADER DOCK Body Mass Index 30.0-30.9, adult Allergic conjunctivitis, bilateral 372.14 Resolved 2 Ashley Yokum HEADER DOCK Other chronic allergic conjunctivitis Skin tags; irritated/inflammed 701.9 Resolved 11/10 Ashley Yokum HEADER DOCK Unspecified hypertrophic and atrophic co nditions of skin Body Mass Index 31.0-31.9 Adult Refinement 2017 Ashley Yokum HEADER DOCK Body Mass Index 31.0-31.9, adult BMI 30-30.9 Refinement Ashley Yokum HEADER DOCK Body Mass Index 31.0-31.9, adult BMI 31-31.9 Refinement Ashley Yokum HEADER DOCK Body Mass Index 31.0-31.9, adult BMI 32-32.9 Refinement Lois Faith RN Body Mass Index 31.0-31.9, adult BMI 31-31.9 Active Viviana Rubio APRN-Julieta Body Mass Index 31.0-31.9, adult Major depression, recurrent, moderate 296.32 Active Ashley Yokum HEADER DOCK Major depressive disorder, recurrent epi sode, moderate degree Obesity Class I (BMI 30-34.9) Active Ashley Y okum HEADER DOCK Obesity, unspecified Nausea and vomiting 787.01 Resolved Ashley Yokum A PRN Nausea with vomiting Gastroenteritis acute 558.9 Resolved Ashley Yokum HEADER DOCK Other and unspecified noninfectious gastroenteritis and colitis GERD 530.81 Active Ashley Yokum HEADER DOCK E sophageal reflux Joint pain 719.40 Resolved Ashley Yokum HEADER DOCK Pain in joint, site unspecified Preventive health care, adult V70.0 Inactive / Ashley Yokum HEADER DOCK Routine general medical examination at a health care facility Blood in urine 599.70 Resolved Ashley Yokum HEADER DOCK Hematuria, unspecified Other abnormal findings in urine Resolved Ashley Yokum HEADER DOCK Urinary tract infection 599.0 Inactive Ashley Yok um HEADER DOCK Urinary tract infection, site not specified Chafing of skin 709.8 Resolved Ashley Yokum HEADER DOCK Other specified disorders of skin Preventive care V70.0 Active Supriya Betzaida A Routine general medical examination at a health care facility Gynecological examination, routine V72.3 Inactive 2 Ashley Yokum HEADER DOCK Special investigations and e xaminations - Gynecological examination Near syncope 780.2 Resolved Ashley Yokum HEADER DOCK Syncope and collapse Lightheadedness 780.4 Resolved Ashley Yokum HEADER DOCK Dizziness and giddiness Headache 784.0 Resolved Ashley Yokum HEADER DOCK Headache Sore throat 462 Resolved Ashley Yokum HEADER DOCK Acute pharyngitis Sinusitis - acute 461.9 Resolved Ashley Yokum APR N Acute sinusitis, unspecified Tired all the time 780.79 Resolved Ashley Yokum AP RN Other malaise and fatigue Fatigue 780.79 Inactive Ashley Yokum HEADER DOCK Other malaise and fatigue Preoperative examination V72.84 Inactive Conchis hi Yokum HEADER DOCK Preoperative examination, unspecified Skin lesion 709.9 Inactive Ashley Yokum HEADER DOCK Unspecified disorder of skin and subcutaneous tissue ABNORMAL WEIGHT GAIN ICD-783.1 Inactive Wayne paul PA ALLERGIC RHINITIS ICD-477.9 Inactive Lois mendieta HEADER DOCK SINUSITIS ICD-473.9 Inactive Lois Leos HEADER DOCK 2012 WHEEZING ICD-786.07 Inactive Lois Leos HEADER DOCK 2012 UPPER RESPIRATORY INFECTION, ACUTE ICD-465.9 I nactive Lois Leos HEADER DOCK NEED FOR DESENSITIZATION TO ALLERGENS ICD-V07.1 8 Inactive Ashley Yang HEADER DOCK OBESITY ICD-278.00 Inactive Wayne Harms PA CONTACT DERMATITIS DUE TO POISON ARANZA ICD-692.6 Inactive Lois Leos HEADER DOCK NEED PROPHYLACTIC VACCINATION&INOCULATION FLU ICD-V04.81 Inactive Wayne Harms PA GERD ICD-530.81 Inactive Lois Leos HEADER DOCK 03/22 LONG-TERM (CURRENT) USE OF OTHER MEDICATIONS ICD-V58.69 6 Inactive Wayne Harms PA NECK PAIN ICD-723.1 Inactive Wayne Harms PA 06/15 DEGENERATIVE DISC DISEASE, CERVICAL SPINE ICD-722.4 Inactive Wayne Harms PA SKIN TAG ICD-701.9 Inactive Wayne Harms PA G E R D ICD-530.81 Inactive Lois Leos HEADER DOCK CANDIDIASIS OF SKIN AND NAILS ICD-112.3 Inacti ve Wayne Harms PA AFTERCARE FOLLOW SURGERY MUSCULOSKEL SYSTEM NEC ICD-V58.78 Inactive Wayne Harms PA PHARYNGITIS ICD-462 Inactive Wayne Harms PA 05/03 OTHER SCREENING MAMMOGRAM ICD-V76.12 Inactive Wayen Harms PA DYSPAREUNIA, MILD ICD-625.0 Inactive Wayne Harm s PA CONTACT DERMATITIS DUE TO POISON ARANZA ICD-692.6 Inactive Wayne Harms PA Sinusitis, chronic ICD-473.9 Inactive Ashley Yo yoni HEADER DOCK Myalgia ICD-729.1 Inactive Wayne Harms PA Rheumatoid [...] PA Runny nose ICD-472.0 Inactive Ashley Yokum HEADER DOCK Influenza like illness ICD-487.1 Inactive Wayne Moon PA Acute maxillary sinusitis ICD-461.0 Inactive Ashley Yokum HEADER DOCK Preventive health care ICD-V70.0 Inactive Ka thi Yokum HEADER DOCK Well women exam ICD-V72.3 Inactive Ashley Yokum HEADER DOCK Screening mammogram ICD-V76.12 Inactive Ashley Yokum HEADER DOCK Sinusitis, acute maxillary ICD-461.0 Inactive Ashley Yokum HEADER DOCK Diarrhea, acute ICD-787.91 Inactive Ashley Yoku m HEADER DOCK Vaginal candidiasis ICD-112.1 Inactive Ashley Y abdonum HEADER DOCK Accidental fall ICD-E888.9 Inactive Ashley Yoku m HEADER DOCK Contusion of left hand, initial encounter ICD-923.20 Inactive Ashley Yokum HEADER DOCK Contusion of right upper arm, subsequent encounter ICD-V58.89 Inactive Ashley Yokum HEADER DOCK Body Mass Index 31.0-31.9 Adult Inac tive Ashley Yokum HEADER DOCK Bronchitis, acute ICD-466.0 Inactive Ashley Yok um HEADER DOCK Body Mass Index 30.0-30.9 Adult Inac tive Ashley Yokum HEADER DOCK Allergic conjunctivitis, bilateral ICD-372.14 I nactive Ashley Yokum HEADER DOCK Skin tags; irritated/inflammed ICD-701.9 Inact rancho Ashley Yokum HEADER DOCK Nausea and vomiting ICD-787.01 Inactive Ashley Yokum HEADER DOCK Gastroenteritis acute ICD-558.9 Inactive Conchis hi Yokum HEADER DOCK Joint pain ICD-719.40 Inactive Ashley Yokum APR N Preventive health care, adult ICD-V70.0 Inacti ve Ashley Yokum HEADER DOCK Blood in urine ICD-599.70 Inactive Ashley Yokum HEADER DOCK Other abnormal findings in urine Mara ctive Ashley Yokum HEADER DOCK Urinary tract infection ICD-599.0 Inactive K athi Yokum HEADER DOCK Chafing of skin ICD-709.8 Inactive Ashley Yokum HEADER DOCK Gynecological examination, routine ICD-V72.3 I nactive Ashley Yokum HEADER DOCK Near syncope ICD-780.2 Inactive Ashley Yokum AP RN Lightheadedness ICD-780.4 Inactive Ashley Yokum HEADER DOCK Headache ICD-784.0 Inactive Ashley Yokum HEADER DOCK 2020 Sore throat ICD-462 Inactive Ashley Yang HEADER DOCK 02/17/17 Sinusitis - acute ICD-461.9 Inactive Ashley peacock HEADER DOCK Tired all the time ICD-780.79 Inactive Ashley gutierrez HEADER DOCK Fatigue ICD-780.79 Inactive Ashley Yang HEADER DOCK 2020 Preoperative examination ICD-V72.84 Inactive Ashley Yang HEADER DOCK Skin lesion ICD-709.9 Inactive Ashley Yang APR N Medication List Medication Instructions Start Date Stop Date Generic Name NDC Status Provider Patient Instruction ALPRAZOLAM 0.25 MG TABS TAKE 1 TO 2 TABLETS BY MOUTH THREE TIMES DAILY NEEDED ALPRAZOLAM 12535558699 Active Shanelle Rivera RN Active PHENTERMINE HCL 37.5 MG TABS 1 TAB IN MORING. TAKE 30 MIN BEFORE BREAKFAST OR 2 HRS AFTER BREAKFAST PHENTERMINE HCL 60490817107 Active Ashley Yang ELAINA Active ADK [id number] UNIT-MCG ORAL CAPSULE 1 daily 2 VITAMINS A D K 47043104566 No Longer Active Ashley Yang ELAINA Active EQ LORATADINE 10 MG ORAL TABLET TAKE 1 TABLET BY MOUTH ONCE DAILY NEEDED FOR ALLERGIES LORATADINE 77122783647 Active Shanelle Rivera RN Active MUCINEX D 60-600 MG ORAL TABLET EXTENDED RELEASE 12 HO UR 1 po BID PRN Congestion PSEUDOEPHEDRINE-GUAIFENESIN 78531002410 Active Ashley Yang ELAINA Active ZYRTEC ALLERGY 10 MG ORAL CAPSULE 1qd CETIR IZINE HCL 09134825084 No Longer Active Ashley Yang ELAINA Active HAIR, SKIN, NAILS VITAMINS take 1 tab by mouth 2x a day HAIR, SKIN, NAILS VITAMINS Active Ashley Yang APRN Active CENTRUM SILVER FOR WOMEN OVER 50 1 tab by mouth by day. CENTRUM SILVER FOR WOMEN OVER 50 Active Ashley Yang APRN Active VITAMIN D3 1000 UNIT ORAL CAPSULE 1 po qd CH OLECALCIFEROL 88300526330 Active Ashley Yang APRN Active PREDNISONE 20 MG ORAL TABLET Take 2 tablets by mouth d aily for 2 days then 1 tablet daily for 2 days. PREDNISONE 60207518530 No Longer Active Ashley Yang ELAINA Active MELOXICAM 15 MG ORAL TABLET TAKE 1 TABLET BY MOUTH IN THE MORNING 2 MELOXICAM 09064368095 Active Shanelle Rivera RN Active SIMVASTATIN 40 MG ORAL TABLET TAKE 1 TABLET BY MOUTH ONCE DA JAVON AT BEDTIME SIMVASTATIN 69752417373 Active Shanelle Rivera RN A ctive [id number] ORAL TABLET MULT IPLE MINERALS 55914096873 Active Lois Faith RN Active SERTRALINE HCL 100 MG ORAL TABLET Take 1 tablet by mouth once da javon SERTRALINE HCL 57932547875 Active LARRY Murillo A ctive REGLAN 10 MG ORAL TABLET 1 po qid for bowels 3 METOCLOPRAMIDE HCL 81785361236 No Longer Active Ashley Yang ELAINA A ctive B-12 2500 MCG ORAL TABLET 1 daily CYANOCOBAL HUNT 63973778872 No Longer Active Ashley Yang ELAINA Active ESTRADIOL 2 MG TABS Take 1 tablet by mouth once daily ESTRADIOL 49678263453 Active Shanelle Rivera RN Active MACROBID 100 MG ORAL CAPSULE 1 cap by mouth twice daily NITROFURANTOIN MONOHYD MACRO 61268032614 No Longer Active Ashley Yang ELAINA Active FISH OIL + D3 8590-0122 MG-UNIT ORAL CAPSULE 1 dailly 4 FISH OIL-CHOLECALCIFEROL 43394202151 Active Ashley Yang ELAINA Acti ve PROAIR HFA 108 (90 BASE) MCG/ACT INHALATION AEROSOL SO LUTION 2 puffs four times a day as needed ALBUTEROL SULFATE 19855028285 No Long er Active Ashley Yokum HEADER DOCK Active ZITHROMAX Z-SANJANA 250 MG ORAL TABLET Take 2 tablets toda y and 1 each day till gone AZITHROMYCIN 47231394366 No Longer Active Ashley Yokum HEADER DOCK Active POLYTRIM 77499-7.1 UNIT/ML-% OPHTHALMIC SOLUTION 1 gtt to affected eye q3h x 7 days POLYMYXIN B-TRIMETHOPRIM 01108407231 No Longer Active Ashley Yokum HEADER DOCK Active IBUPROFEN 200 MG ORAL TABLET Take 3 tablets every 6hrs 201 09/17/15 IBUPROFEN 87082288870 No Longer Active Ashley Yokum HEADER DOCK Active DIFLUCAN 150 MG ORAL TABLET Take one tablet today and repeat in 72 hours FLUCONAZOLE 35557454242 No Longer Active Derrick cardenas MD Active DIFLUCAN 150 MG ORAL TABLET 1 by mouth for yeast 03/03 FLUCONAZOLE 52529836642 No Longer Active Ashley Yokum HEADER DOCK Active AUGMENTIN 875-125 MG ORAL TABLET Take one tablet twice a day with food AMOXICILLIN-POT CLAVULANATE 08279752379 No Longer Act rancho Ashley Yokum HEADER DOCK Active CALCIUM 600 + D 600-200 MG-UNIT ORAL TABLET Take one daily CALCIUM CARB-CHOLECALCIFEROL 45116966048 No Longer Active Ashley Yokum HEADER DOCK Active FLONASE 50 MCG/ACT NASAL SUSPENSION 1 spray each nostr il twice daily for allergies and runny nose FLUTICASONE PROPIONATE 57639528197 No Longer Active Ashley Yokum HEADER DOCK Active CLARITIN-D 12 HOUR 5-120 MG ORAL TABLET EXTENDED RELEA SE 12 HOUR Take one tablet BID as needed for allergies LORATADINE-PSEUDOEP HEDRINE 13491053364 No Longer Active Beth Nafgeeta SPOT SPRAYER Active AMOXICILLIN-POT CLAVULANATE 875-125 MG ORAL TABLET 1 pill by mouth twice daily AMOXICILLIN-POT CLAVULANATE 18699530035 No Longer Act rancho Ashley Yang HEADER DOCK Active AMOXICILLIN 500 MG ORAL CAPSULE Take 1 capsule by tk h three times a day X 10 days AMOXICILLIN 39562423019 No Longer Active Wayne H arms PA Active PROBIOTIC DAILY ORAL CAPSULE Take one daily PROBIO TIC PRODUCT 94161321710 Active Wayne Harms PA Active TYLENOL 325 MG ORAL TABLET Take 2 every 6hrs prn A CETAMINOPHEN 37430784979 Active Wayne Harms PA Active ACETAMINOPHEN 500 MG ORAL TABLET prn RICH TAMINOPHEN 83794474204 No Longer Active Wayne Harms PA Active CLARITIN-D 12 HOUR 5-120 MG ORAL TABLET EXTENDED RELEA SE 12 HOUR Take one tablet bid LORATADINE-PSEUDOEPHEDRINE 97186910900 No Longe r Active Wayne Harms PA Active MOBIC 15 MG ORAL TABLET 1 tablet by mouth daily in am with PPI 2 MELOXICAM 11996563446 No Longer Active Wayne Harms PA Acti ve HYDROCORTISONE 2.5 % EXTERNAL CREAM Apply three times a day to affected area HYDROCORTISONE 94978404598 No Longer Active Wayne Harms PA Active VITAMIN D3 1000 UNIT ORAL TABLET Take two daily CHOLECALCIFEROL 79293532493 No Longer Active Wayne Harms PA Active PROBIOTIC ORAL CAPSULE Take one daily PROBIOTIC PRODUCT 47753001361 No Longer Active Wayne Harms PA Active GREEN TEA SLIM ORAL TABLET Take one daily [facility] 14361990315 No Longer Active Wayne Harms PA Active BENZONATATE 200 MG ORAL CAPSULE Take one capsule three times a d ay BENZONATATE 16912890658 No Longer Active Wayne Harms PA Act rancho ZITHROMAX Z-SANJANA 250 MG ORAL TABLET 2 today, then 1 daily for 4 d ays AZITHROMYCIN 74979197582 No Longer Active Wayne Harms PA Ac tive ZITHROMAX 250 MG ORAL TABLET 2 po today, then 1 po q days 2-5 20 31/03/18 AZITHROMYCIN 95965479241 No Longer Active Beth Turner SPOT SPRAYER Active OMEPRAZOLE 20 MG ORAL CAPSULE DELAYED RELEASE 1 tablet by mo [facility] daily OMEPRAZOLE 83590844138 Active Supriya Huston RMA Active ZITHROMAX Z-SANJANA 250 MG ORAL TABLET 2x1day,[id number] 2014 AZITHROMYCIN 72989222349 No Longer Active Wayne Harms PA Active FISH OIL 1200 MG ORAL CAPSULE One daily prn OME GA-3 FATTY ACIDS 77009216425 No Longer Active Wayne Harms PA Active CEPHALEXIN 250 MG ORAL CAPSULE Take one tablet qid 201 05/25/29 CEPHALEXIN 17690073011 No Longer Active Wayne Harms PA Active VITAMIN D3 1000 UNIT ORAL TABLET 1qd CHOLEC ALCIFEROL 84535186280 No Longer Active Wayne Harms PA Active B-12 2000 MCG ORAL TABLET 1qd CYANOCOBALAMI N 99190751109 No Longer Active Wayne Harms PA Active ACIPHEX 20 MG ORAL TABLET DELAYED RELEASE 1qd 10/28 RABEPRAZOLE SODIUM 28518694227 No Longer Active Wayne Harms PA Active HYDROCORTISONE 2.5 % EXTERNAL CREAM apply 3-4 times a day to affected area HYDROCORTISONE 47903292100 No Longer Active Wayne Harms PA Active MUCINEX 600 MG ORAL TABLET EXTENDED RELEASE 12 HOUR 2qd GUAIFENESIN 15025291378 No Longer Active Wayne Harms PA Active TUSSIONEX PENNKINETIC ER 10-8 MG/5ML ORAL SUSPENSION E XTENDED RELEASE 5ml po q12hr PRN Cough HYDROCOD POLST-CHLORPHEN POLST 5 8251031234 No Longer Active Wayne Harms PA Active ZITHROMAX 250 MG ORAL TABLET 2 po today, then 1 po q days 2-5 20 26/06/21 AZITHROMYCIN 00950409347 No Longer Active Wayne Harms PA Ac tive CLARITIN 10 MG ORAL TABLET one tablet daily THEO ATADINE 59560782337 No Longer Active Wayne Harms PA Active FLAGYL 500 MG ORAL TABLET 1 tablet by mouth three times daily 20 28/05/03 METRONIDAZOLE 74024615643 No Longer Active Wayne Harms PA A ctive CHERATUSSIN AC 100-10 MG/5ML ORAL SYRUP one teaspoon qid. 9 GUAIFENESIN-CODEINE 08267929575 No Longer Active Wayne Harms PA Act rancho VITAMIN D 1000 UNIT ORAL TABLET 1qd CHOLECA LCIFEROL 85208829285 No Longer Active Wayne Harms PA Active CYMBALTA 60 MG ORAL CAPSULE DELAYED RELEASE PARTICLES 1 cap by mouth daily DULOXETINE HCL 59652188929 No Longer Active Wayne Harms PA Active AMOXICILLIN 500 MG ORAL CAPSULE 2 caps tid for 10days AMOXICILLIN 48834640109 No Longer Active Wayne Harms PA Active CALCIUM + D 600-200 MG-UNIT TABS Take one by mouth daily CALCIUM CARBONATE-VITAMIN D 44975929104 No Longer Active Wayne Harms PA Active CENTRUM SILVER ADULT 50+ ORAL TABLET 1qd 2013 MULTIPLE VITAMINS-MINERALS 16950655022 No Longer Active Wayne Harms PA Active VENLAFAXINE HCL 75 MG ORAL TABLET 1tid VE NLAFAXINE HCL 76172043528 No Longer Active Wayne Harms PA Active CLARITIN 10 MG ORAL TABLET 1 tablet by mouth daily as needed for allergies LORATADINE 39314867622 No Longer Active Wayne Harms PA Acti ve HYDROCORTISONE 2.5 % EXTERNAL CREAM Apply four times a day to af fected area HYDROCORTISONE 27901836643 No Longer Active Wayne Harms PA Active ZITHROMAX 250 MG ORAL TABLET 2 po today, then 1 po q days 2-5 20 26/02/30 AZITHROMYCIN 80347674212 No Longer Active Wayne Harms PA Ac tive ZITHROMAX 250 MG ORAL TABLET 2 po today, then 1 po q days 2-5 20 27/02/16 AZITHROMYCIN 35131094045 No Longer Active Wayne Harms PA Ac tive CYMBALTA 30 MG ORAL CAPSULE DELAYED RELEASE PARTICLES 3 caps daily DULOXETINE HCL 11613895505 No Longer Active Wayne Harms PA Active CYMBALTA 60 MG ORAL CAPSULE DELAYED RELEASE PARTICLES one tablet daily, takes 30mg. with 60mg. to make 90 mg. DULOXETINE HCL 17617764361 No Longer Active Wayne Harms PA Active CYMBALTA 30 MG ORAL CAPSULE DELAYED RELEASE PARTICLES 1 daily wi th 60mg DULOXETINE HCL 16002483320 No Longer Active Wayne Harms PA Active ZITHROMAX 250 MG ORAL TABLET 2 po today, then 1 po q days 2-5 20 26/12/21 AZITHROMYCIN 91608219023 No Longer Active Ismael YANG Active PREDNISONE 20 MG ORAL TABLET 3tab x 2days,2tab x 2days ,1tab x 2days,1/2tab x 2days PREDNISONE 69837249286 No Longer Active Wayne Vera jarvis PA Active PREMARIN 0.625 MG ORAL TABLET Take one by mouth daily ESTROGENS CONJUGATED 35959759024 No Longer Active Wayne Harms PA Active ZITHROMAX 250 MG ORAL TABLET 2 po today, then 1 po q days 2-5 20 26/06/19 AZITHROMYCIN 29145864276 No Longer Active Nereydasatnam Isaacs Activ e OMEGA-3 1000 MG ORAL CAPSULE 2qd OMEGA-3 FA TTY ACIDS 18356520086 No Longer Active Wayne Harms PA Active BENADRYL ITCH STOPPING 1-0.1 % EXTERNAL CREAM prn DIPHENHYDRAMINE- ZINC ACETATE 39774272207 No Longer Active Wayne Harms PA Active LOTRISONE 1-0.05 % EXTERNAL CREAM Apply bid CLOTRIMAZOLE-BETAMETHASONE 17674930776 No Longer Active Wayne Harms PA Active ZITHROMAX Z-SANJANA 250 MG ORAL TABLET take as directed 20 26/04/19 AZITHROMYCIN 91663452697 No Longer Active Wayne Harms PA Active NYSTATIN 466635 UNIT/GM EXTERNAL POWDER Apply to affected areas BID NYSTATIN 35435953219 No Longer Active Wayne Harms PA Acti ve BENADRYL 25 MG ORAL CAPSULE prn DIPHENHYDRAMINE HCL 17515478636 Active Wayne Harms PA Active LOTRISONE 1-0.05 % EXTERNAL CREAM apply twice a day 20 25/02/17 CLOTRIMAZOLE-BETAMETHASONE 91073381951 No Longer Active Wayne Harms PA Active HYDROCODONE-ACETAMINOPHEN 5-325 MG ORAL TABLET 1-2 every 4hr s prn pain HYDROCODONE-ACETAMINOPHEN 99526589535 No Longer Activ e Wayne Harms PA Active VICODIN 5-300 MG ORAL TABLET 1-2 tabs every 6hrs as needed for p ain HYDROCODONE-ACETAMINOPHEN 45553508533 No Longer Active Wayne Harms PA Active BENADRYL 25 MG ORAL CAPSULE 1prn DIPHENHYDRA MINE HCL 07533627789 No Longer Active Jillina Frazell HEADER DOCK Active ROBITUSSIN DM 100-10 MG/5ML ORAL SYRUP 2 teaspoons four times a day DEXTROMETHORPHAN-GUAIFENESIN 95860670898 No Longer Active Jillina Frazell HEADER DOCK Active ACIPHEX 20 MG ORAL TABLET DELAYED RELEASE Take one by mouth daily RABEPRAZOLE SODIUM 85879911864 No Longer Active Jillina Frazell HEADER DOCK Active TUMS 500 MG ORAL TABLET CHEWABLE prn SADIQ CIUM CARBONATE ANTACID 33779215147 No Longer Active Jillina Frazell HEADER DOCK Active PEPTO-BISMOL 524 MG/30ML ORAL SUSPENSION prn 02/26 BISMUTH SUBSALICYLATE 35784106804 No Longer Active Jillina Frazell HEADER DOCK Active BACTRIM DS 800-160 MG ORAL TABLET 1bid SULFAMETHOXAZOLE-TRIMETHOPRIM 22409231839 No Longer Active Beth Naff SPOT SPRAYER Active GAVISCON EXTRA RELIEF FORMULA CHEW prn A LUM HYDROXIDE-MAG CARBONATE CHEW 95546712159 Active Wayne Harms PA Active DIFLUCAN 150 MG ORAL TABLET 1stat FLUCONAZOL E 11185868466 No Longer Active Wayne Harms PA Active AUGMENTIN 875-125 MG ORAL TABLET 1 tab by mouth twice daily with food AMOXICILLIN-POT CLAVULANATE 28312707389 No Longer Act rancho Wayne Harms PA Active FLUTICASONE PROPIONATE 50 MCG/ACT NASAL SUSPENSION 1 t o 2 sprays each nostril twice a day FLUTICASONE PROPIONATE 76384206324 No Lo nger Active Wayne Harms PA Active HYDROCORTISONE 2.5 % EXTERNAL CREAM apply 2-4 times a day, a s directed, prn HYDROCORTISONE 82848426590 No Longer Active Wayne Harms PA Active ZITHROMAX Z-SANJANA 250 MG ORAL TABLET A ZITHROMYCIN 48565096122 No Longer Active Wayne Harms PA Active SIMVASTATIN 40 MG ORAL TABLET one tablet daily SIMVASTATIN 38097968639 No Longer Active Misty Yoo LPN Active LOVASTATIN 40 MG ORAL TABLET Take one by mouth daily 12/11 LOVASTATIN 93049790714 No Longer Active Misty Yoo LPN Active PREDNISONE 20 MG ORAL TABLET 2 PO qd x 2d, 1 PO qd x 2d, 1/2 PO qd x 2d PREDNISONE 52855684536 No Longer Active Ismael silva PA Active ZITHROMAX 250 MG ORAL TABLET two tablets now and one daily x 4 d ays AZITHROMYCIN 79703805393 No Longer Active Misty Yoo LPN Active ZOLPIDEM TARTRATE 10MG TABS (ZOLPIDEM TARTRATE) 1 at bedtime as needed Active Supriya Huston RMA Active CLOBETASOL PROPIONATE 0.05 % EXTERNAL CREAM apply as directed CLOBETASOL PROPIONATE 59564312755 No Longer Active Wayne Harms PA A ctive CYMBALTA 30 MG ORAL CAPSULE DELAYED RELEASE PARTICLES takes 90mg qod alt with 60mg DULOXETINE HCL 41051136882 No Longer Active Wayne Harm s PA Active ZITHROMAX 250 MG ORAL TABLET 2 po today, then 1 po q days 2-5 20 12/24/14 AZITHROMYCIN 07577619470 No Longer Active Wayne Harms PA Ac tive TRIAMCINOLONE ACETONIDE 0.1 % EXTERNAL CREAM apply qid TRIAMCINOLONE ACETONIDE 74378266684 No Longer Active Wayne Harms PA Active ALPRAZOLAM 0.25 MG ORAL TABLET 1 tab three times a day 201 02/23/14 ALPRAZOLAM 48250995296 No Longer Active Wayne Harms PA Active ZOLPIDEM TARTRATE 5 MG ORAL TABLET 1 at bedtime as needed ZOLPIDEM TARTRATE 97127838900 No Longer Active Beth Turner SPOT SPRAYER Active ALPRAZOLAM 0.25 MG ORAL TABLET 1 tab three times a day ALPRAZOLAM 0.25 MG ORAL TABLET 653092 ALPRAZOLAM Inactive TRIAMCINOLONE ACETONIDE 0.1 % EXTERNAL CREAM apply qid TRIAMCINOLONE ACETONIDE 0.1 % EXTERNAL CREAM 6192795 TRIAMCINOLONE A CETONIDE Inactive CYMBALTA 30 MG ORAL CAPSULE DELAYED RELEASE PARTICLES takes 90mg qod alt with 60mg CYMBALTA 30 MG ORAL CAPSULE DELAYED RELEA SE PARTICLES 720238 DULOXETINE HCL Inactive CLOBETASOL PROPIONATE 0.05 % EXTERNAL CREAM apply as directed CLOBETASOL PROPIONATE 0.05 % EXTERNAL CREAM 471341 CLOBETASOL PROPI KELVIN Inactive LOVASTATIN 40 MG ORAL TABLET Take one by mouth daily 2 LOVASTATIN 40 MG ORAL TABLET 513631 LOVASTATIN Inactive ZITHROMAX Z-SANJANA 250 MG ORAL TABLET 03/03 ZITHROMAX Z-SANJANA 250 MG ORAL TABLET 574539 AZITHROMYCIN Inactive HYDROCORTISONE 2.5 % EXTERNAL CREAM apply 2-4 times a day, a s directed, prn HYDROCORTISONE 2.5 % EXTERNAL CREAM 480816 HYDRO CORTISONE Inactive FLUTICASONE PROPIONATE 50 MCG/ACT NASAL SUSPENSION 1 t o 2 sprays each nostril twice a day FLUTICASONE PROPIONA TE 50 MCG/ACT NASAL SUSPENSION 2703899 FLUTICASONE PROPIONATE Inactive AUGMENTIN 875-125 MG ORAL TABLET 1 tab by mouth twice daily with food AUGMENTIN 875-125 MG ORAL TABLET AMOXICIL BLOSSOM-POT CLAVULANATE Inactive DIFLUCAN 150 MG ORAL TABLET 1stat DIFLUCAN 150 MG ORAL TABLET 418631 FLUCONAZOLE Inactive PEPTO-BISMOL 524 MG/30ML ORAL SUSPENSION prn PEPTO-BISMOL 524 MG/30ML ORAL SUSPENSION BISMUTH SUBSALICYLATE Inactive TUMS 500 MG ORAL TABLET CHEWABLE prn TUMS 500 MG ORAL TABLET CHEWABLE 590417 CALCIUM CARBONATE ANTACID Inactive ACIPHEX 20 MG ORAL TABLET DELAYED RELEASE Take one by mouth daily ACIPHEX 20 MG ORAL TABLET DELAYED RELEASE 373938 RABEPRAZOLE SODIUM Inactive ROBITUSSIN DM 100-10 MG/5ML [...] pain HYDROCODONE-ACETAMINOPHEN 5-325 MG ORAL TABLET 8 74242 HYDROCODONE-ACETAMINOPHEN Inactive LOTRISONE 1-0.05 % EXTERNAL CREAM apply twice a day 20 25/02/17 LOTRISONE 1- 0.05 % EXTERNAL CREAM CLOTRIMAZOLE-BETAMETHASONE Inactive NYSTATIN 458717 UNIT/GM EXTERNAL POWDER Apply to affected areas BID NYSTATIN 752974 UNIT/GM EXTERNAL POWDER 371308 NYSTATIN Inactive ZITHROMAX Z-SANJANA 250 MG ORAL TABLET take as directed 20 26/04/19 ZITHROMAX Z-SANJANA 250 MG ORAL TABLET 510214 AZITHROMYCIN Inact ranch[place] LOTRISONE 1-0.05 % EXTERNAL CREAM Apply bid LOTRISONE 1- 0.05 % EXTERNAL CREAM CLOTRIMAZOLE-BETAMETHASONE Inactive BENADRYL ITCH STOPPING 1-0.1 % EXTERNAL CREAM prn BENADRYL ITCH STOPPING 1-0.1 % EXTERNAL CREAM DIPHENHYDRAMINE-ZINC ACETATE Inactive OMEGA-3 1000 MG ORAL CAPSULE 2qd OMEGA-3 1000 MG ORAL CAPSULE 459869 OMEGA-3 FATTY ACIDS Inactive ZITHROMAX 250 MG ORAL TABLET 2 po today, then 1 po q days 2-5 20 26/06/19 ZITHROMAX 250 MG ORAL TABLET 843983 AZITHROMYCIN [facility] PREMARIN 0.625 MG ORAL TABLET Take one by mouth daily PREMARIN 0.625 MG ORAL TABLET ESTROGENS CONJUGATED Inactive PREDNISONE 20 MG ORAL TABLET 3tab x 2days,2tab x 2days ,1tab x 2days,1/2tab x 2days PREDNISONE 20 MG ORAL TABLET 102077 PREDNIS ONE Inactive CYMBALTA 30 MG ORAL CAPSULE DELAYED RELEASE PARTICLES 1 daily wi th 60mg CYMBALTA 30 MG ORAL CAPSULE DELAYED RELEASE PARTICLES 702487 DULOXETINE HCL Inactive CYMBALTA 60 MG ORAL CAPSULE DELAYED RELEASE PARTICLES one tablet daily, takes 30mg. with 60mg. to make 90 mg. CYMBALTA 60 MG ORAL CAPSULE DELAYED RELEASE PARTICLES 578154 DULOXETINE HCL Inacti ve CYMBALTA 30 MG ORAL CAPSULE DELAYED RELEASE PARTICLES 3 caps daily CYMBALTA 30 MG ORAL CAPSULE DELAYED RELEASE PARTICLES 768689 DULOXE ROSANNE HCL Inactive HYDROCORTISONE 2.5 % EXTERNAL CREAM Apply four times a day to af fected area HYDROCORTISONE 2.5 % EXTERNAL CREAM 032574 HYDROCORTISO NE Inactive CLARITIN 10 MG ORAL TABLET 1 tablet by mouth daily as needed for allergies CLARITIN 10 MG ORAL TABLET 403398 LORATADINE Inact rancho VENLAFAXINE HCL 75 MG ORAL TABLET 1tid VENLAFAXINE HCL 75 MG ORAL TABLET 665888 VENLAFAXINE HCL Inactive CENTRUM SILVER ADULT 50+ ORAL TABLET 1qd 2013 CENTRUM SILVER ADULT 50+ ORAL TABLET MULTIPLE VITAMINS-MINERALS Inactive CALCIUM + D 600-200 MG-UNIT TABS Take one by mouth daily CALCIUM + D 600-200 MG-UNIT TABS CALCIUM CARBONATE-VITAMIN D Inactive AMOXICILLIN 500 MG ORAL CAPSULE 2 caps tid for 10days AMOXICILLIN 500 MG ORAL CAPSULE 488496 AMOXICILLIN Inactive CYMBALTA 60 MG ORAL CAPSULE DELAYED RELEASE PARTICLES 1 cap by mouth daily CYMBALTA 60 MG ORAL CAPSULE DELAYED RELE ASE PARTICLES 127658 DULOXETINE HCL Inactive VITAMIN D 1000 UNIT ORAL TABLET 1qd 2014/04/0 4 VITAMIN D 1000 UNIT ORAL TABLET CHOLECALCIFEROL Inactive CHERATUSSIN AC 100-10 MG/5ML ORAL SYRUP one teaspoon qid. 9 CHERATUSSIN AC 100-10 MG/5ML ORAL SYRUP GUAIFENESIN-CODEINE Inactive FLAGYL 500 MG ORAL TABLET 1 tablet by mouth three times daily 20 28/05/03 FLAGYL 500 MG ORAL TABLET 870002 METRONIDAZOLE Inacti ve CLARITIN 10 MG ORAL TABLET one tablet daily CLARITIN 10 MG ORAL TABLET 989814 LORATADINE Inactive TUSSIONEX PENNKINETIC ER 10-8 MG/5ML [...] affected area HYDROCORTISONE 2.5 % EXTERNAL CREAM 108222 HYDRO CORTISONE Inactive ACIPHEX 20 MG ORAL TABLET DELAYED RELEASE 1qd ACIPHEX 20 MG ORAL TABLET DELAYED RELEASE 762100 RABEPRAZOLE SODIUM Inactive B-12 2000 MCG ORAL TABLET 1qd B-12 2000 MCG ORAL TABLET CYANOCOBALAMIN Inactive VITAMIN D3 1000 UNIT ORAL TABLET 1qd VITAMIN D3 1000 UNIT ORAL TABLET CHOLECALCIFEROL Inactive CEPHALEXIN 250 MG ORAL CAPSULE Take one tablet qid 201 05/25/29 CEPHALEXIN 250 MG ORAL CAPSULE 715837 CEPHALEXIN Inactive FISH OIL 1200 MG ORAL CAPSULE One daily prn FISH OIL 1200 MG ORAL CAPSULE OMEGA-3 FATTY ACIDS Inactive ZITHROMAX Z-SANJANA 250 MG ORAL TABLET 2x1day,4k2scef 2014 ZITHROMAX Z-SANJANA 250 MG ORAL TABLET 142306 AZITHROMYCIN Inact ranch[place] BENZONATATE 200 MG ORAL CAPSULE Take one capsule three times a d ay BENZONATATE 200 MG ORAL CAPSULE 912610 BENZONATATE Inactive GREEN TEA SLIM ORAL TABLET Take one daily GREEN TEA SLIM ORAL TABLET MISC NATURAL PRODUCTS Inactive PROBIOTIC ORAL CAPSULE Take one daily PROBIOTIC ORAL CAPSULE 4414493 PROBIOTIC PRODUCT Inactive VITAMIN D3 1000 UNIT ORAL TABLET Take two daily 05/05 VITAMIN D3 1000 UNIT ORAL TABLET CHOLECALCIFEROL Inactive HYDROCORTISONE 2.5 % EXTERNAL CREAM Apply three times a day to affected area HYDROCORTISONE 2.5 % EXTERNAL CREAM 332085 HYDRO CORTISONE Inactive MOBIC 15 MG ORAL TABLET 1 tablet by mouth daily in am with PPI 2 MOBIC 15 MG ORAL TABLET 207366 MELOXICAM Inactive CLARITIN-D 12 HOUR 5-120 MG ORAL TABLET EXTENDED RELEA SE 12 HOUR Take one tablet bid CLARITIN-D 12 HOUR 5 -120 MG ORAL TABLET EXTENDED RELEASE 12 HOUR LORATADINE-PSEUDOEPHEDRINE Inactive ACETAMINOPHEN 500 MG ORAL TABLET prn ACETAMINOPHEN 500 MG ORAL TABLET 202579 ACETAMINOPHEN Inactive CLARITIN-D 12 HOUR 5-120 MG [...] yeast 03/03 DIFLUCAN 150 MG ORAL TABLET 447208 FLUCONAZOLE Inactive DIFLUCAN 150 MG ORAL TABLET Take one tablet today and repeat in 72 hours DIFLUCAN 150 MG ORAL TABLET 579429 FLUCONAZOLE Inactive IBUPROFEN 200 MG ORAL TABLET Take 3 tablets every 6hrs IBUPROFEN 200 MG ORAL TABLET 901582 IBUPROFEN Inactive ZITHROMAX Z-SANJANA 250 MG ORAL TABLET Take 2 tablets toda y and 1 each day till gone ZITHROMAX Z-SANJANA 250 MG ORAL TABLET 973419 A ZITHROMYCIN Inactive PROAIR HFA 108 (90 [...] bowels 3 REGLAN 10 MG ORAL TABLET 910948 METOCLOPRAMIDE HCL Inactive PREDNISONE 20 MG ORAL TABLET Take 2 tablets by mouth d aily for 2 days then 1 tablet daily for 2 days. PREDNISONE 20 MG ORAL T ABLET 549368 PREDNISONE Inactive ZYRTEC ALLERGY 10 MG ORAL CAPSULE 1qd ZYRTEC ALLERGY 10 MG ORAL CAPSULE CETIRIZINE HCL Inactive ADK 5794-9521-312 UNIT-MCG ORAL CAPSULE 1 daily 2 ADK 2092-5535-362 UNIT-MCG ORAL CAPSULE VITAMINS A D K Inac tive ZITHROMAX 250 MG ORAL TABLET 2 po today, then 1 po q days 2-5 20 12/24/14 ZITHROMAX 250 MG ORAL TABLET 503500 AZITHROMYCIN [place] [facility] ZITHROMAX 250 MG ORAL TABLET two tablets now and one daily x 4 d ays ZITHROMAX 250 MG ORAL TABLET 832859 AZITHROMYCIN [place] [facility] PREDNISONE 20 MG ORAL TABLET 2 PO qd x 2d, 1 PO qd x 2d, 1/2 PO qd x 2d PREDNISONE 20 MG ORAL TABLET 266219 PREDNISONE Inactive SIMVASTATIN 40 MG ORAL TABLET one tablet daily SIMVASTATIN 40 MG ORAL TABLET 19810213 SIMVASTATIN Inactive BACTRIM DS 800-160 MG ORAL TABLET 1bid BACTRIM DS 800-160 MG ORAL TABLET 067349 SULFAMETHOXAZOLE-TRIMETHOPRIM Inactive ZITHROMAX 250 MG ORAL TABLET 2 po today, then 1 po q days 2-5 20 26/12/21 ZITHROMAX 250 MG ORAL TABLET 056936 AZITHROMYCIN [place] ZITHROMAX 250 MG ORAL TABLET 2 po today, then 1 po q days 2-5 20 27/02/16 ZITHROMAX 250 MG ORAL TABLET 783854 AZITHROMYCIN [place] ZITHROMAX 250 MG ORAL TABLET 2 po today, then 1 po q days 2-5 20 26/02/30 ZITHROMAX 250 MG ORAL TABLET 482108 AZITHROMYCIN [place] ZITHROMAX 250 MG ORAL TABLET 2 po today, then 1 po q days 2-5 20 26/06/21 ZITHROMAX 250 MG ORAL TABLET 103705 AZITHROMYCIN [place] ZITHROMAX 250 MG ORAL TABLET 2 po today, then 1 po q days 2-5 20 31/03/18 ZITHROMAX 250 MG ORAL TABLET 351678 AZITHROMYCIN [place] ZITHROMAX Z-SANJANA 250 MG ORAL TABLET 2 today, then 1 daily for 4 d ays ZITHROMAX Z-SANJANA 250 MG ORAL TABLET 047287 AZITHROMYCIN Inactive AMOXICILLIN 500 MG ORAL CAPSULE Take 1 capsule by mout h three times a day X 10 days AMOXICILLIN 500 MG ORAL CAPSULE 212963 AMOX ICILLIN Inactive AMOXICILLIN-POT CLAVULANATE 875-125 MG ORAL TABLET 1 pill by mouth twice daily AMOXICILLIN-POT CLAVULANATE 875-125 MG ORAL TABL ET 283742 AMOXICILLIN-POT CLAVULANATE Inactive AUGMENTIN 875-125 MG ORAL TABLET Take one tablet twice a day with food AUGMENTIN 875-125 MG ORAL TABLET AMOXICILLIN-POT CLAVULANATE Inactive POLYTRIM 96919-3.1 UNIT/ML-% OPHTHALMIC SOLUTION 1 gtt to affected eye q3h x 7 days POLYTRIM 97306-7.1 UNIT/ML-% OPH THALMIC SOLUTION 904689 POLYMYXIN B-TRIMETHOPRIM Inactive MACROBID 100 MG ORAL CAPSULE 1 cap by mouth twice daily MACROBID 100 MG ORAL CAPSULE 1030454 NITROFURANTOIN MONOHYD MACRO In active Advance Directives [...] Fluarix, Agriflu(>= 18 yo)) Fluzone (>=3 yrs.) [[id number]] Seasonal influenza vaccine, injectable, containing preservative, for > 3 years old (Afluria, FluLaval, Fluzone, Fluvirin, Fluarix, Agriflu(>= 18 yo)) Fluzone (>3 yrs.) [[id number]] Seasonal influenza vaccine, injectable, containing preservative, for > 3 years old (Afluria, FluLaval, Fluzone, Fluvirin, Fluarix, Agriflu(>= 18 yo)) Fluarix (>3 yrs.) [[id number]] Diagnostic Results Date Name Value Unit Range Description Lab Report: CBC, Comp. Metabolic Panel, Lipid Panel, Magnesium - Chemistry sodium, serum 138 mmol/L [phone]/09/02 carbon dioxide, venous blood 28.0 mmol/L 21.0-32 [...] 0.20 mg/dL 0.00-1.00 cholesterol, serum 228 mg/dL [phone]/09/02 triglyceride, serum, fasting 236 mg/dL 30-200 HDL [...] 0.36-3.74 Encounters Code Encounter Date Provider Facility CPT-49848 52338: Ofc Vst-Est Level IV-Moderate MDM or 30-39 minutes 17:48:09 CDT Ashley Yang [facility] CPT-66704 23235-Pfq Vst-Est Level III 17:07:11 CDT Jenny Yang [facility] CPT-13953 42500-Ypd Vst-Est Level III 17:51:44 MEETING MANAGER [place] [facility] [place] CPT-03503 Level 3 Est. Patient 11:09:39 CDT Viviana Rubio [facility] [place] CPT-25170 [id number] Vst-Est Level IV 09:14:31 CDT Conchis Yang [facility] CPT-67932 63023-Xen Vst-Est Level III 22:05:50 CDT Jenny Yang [facility] CPT-60366 Level 3 Est. Patient 15:00:02 MEETING MANAGER Will Cárdenas milka [facility] CPT-57522 Level 2 Est. Patient 13:46:20 CDT Ashley Kt [facility] [place] [facility] CPT-04430 Level 2 Est. Patient 13:45:36 CDT Ashley Kt [facility] [place] [facility] CPT-31712 Level 3 Est. Patient 15:52:07 CDT Ashley Yoелена [facility] [place] [facility] CPT-69796 Level 3 Est. Patient 08:20:37 CDT Ashley Mirелена [facility] [place] [facility] CPT-45085 Level 3 Est. Patient 15:06:41 CDT Derrick donaldson MD [facility] CPT-49165 Level 3 Est. Patient 11:13:21 MEETING MANAGER Derrick donaldson MD [facility] CPT-12054 Level 3 Est. Patient 12:54:25 MEETING MANAGER Ashley peacock [facility] CPT-47955 Level 3 Est. Patient 23:34:49 MEETING MANAGER Ashley Meraz [facility] [place] [facility] CPT-57958 Level 3 Est. Patient 16:37:09 MEETING MANAGER Ashley peacock [facility] CPT-70648 Level 3 Est. Patient 11:59:30 MEETING MANAGER Ashley Meraz [facility] [place] [facility] CPT-28490 Level 4 Est. Patient 07:40:13 CDT Wayne delatorre [facility] CPT-55879 Level 4 Est. Patient 08:06:18 CDT Wayne delatorre [facility] CPT-19613 Level 3 Est. Patient 11:14:45 CDT Wayne delatorre [facility] CPT-15941 Level 3 Est. Patient 10:14:55 CDT Wayne delatorre [facility] CPT-19702 Level 4 Est. Patient 15:23:47 CDT Wayne delatorre [facility] CPT-88669 Level 3 Est. Patient 07:50:51 MEETING MANAGER [facility] CPT-32397 Level 3 Est. Patient 14:47:52 CDT [facility] CPT-74732 Level 3 Est. Patient 11:28:46 CDT Wayne delatorre [facility] CPT-91546 Level 4 Est. Patient 14:48:43 CDT Wayne delatorre [facility] CPT-32416 Level 3 Est. Patient 14:10:18 MEETING MANAGER Wayne delatorre [facility] CPT-26081 Level 3 Est. Patient 16:44:33 MEETING MANAGER [facility] CPT-95590 Level 4 Est. Patient 08:22:34 MEETING MANAGER Wayne delatorre [facility] CPT-90430 Level 4 Est. Patient 07:10:30 CDT [facility] CPT-84027 Level 3 Est. Patient 14:50:20 MEETING MANAGER [facility] CPT-27373 Level 3 Est. Patient 09:46:08 MEETING MANAGER Zuleika [facility] CPT-29001 Level 4 Est. Patient 07:56:24 MEETING MANAGER Wayne delatorre [facility] CPT-34097 Level 3 Est. Patient 12:13:53 CDT Ismael Denton [facility] CPT-72878 Level 4 Est. Patient 12:28:51 MEETING MANAGER Wayne [facility]re [facility] CPT-04599 Level 3 Est. Patient 15:23:42 MEETING MANAGER Wayne [facility]re [facility] CPT-22608 Level 3 Est. Patient 06:34:33 MEETING MANAGER [facility] Procedures Code Procedure Name Date Entry Date Standard Desc ription CPT-30001 Allergy Admin 2 16:06:08 CDT CPT-90007 Allergy Admin 2 16:51:42 CDT CPT-29111 Allergy Admin 2 16:26:50 CDT CPT-84237 Allergy Admin 2 17:02:53 CDT CPT-23529 Allergy Admin 2 16:32:35 CDT CPT-15126 Allergy Admin 2 16:26:27 CDT CPT-J3420 Vitamin B12 1000mcg (Cyanocobalamin) 16:32:13 CDT CPT-27609 Abx/Therapy Injection 16:32:13 CDT CPT-93553 Allergy Admin 2 16:32:12 CDT CPT-58733 Allergy Admin 2 16:05:03 CDT CPT-83090 Allergy Admin 2 16:35:15 CDT CPT-79590 Allergy Admin 2 16:20:41 CDT CPT-00671 Allergy Admin 2 11:25:21 CDT CPT-64896 Allergy Admin 2 15:46:12 CDT CPT-[id number] (4274F) Influenza immunization administe red or previously received 17:51:44 MEETING MANAGER CPT-23509 Spec Collection and Handling Fee 10:45:[address] [id number]-[id number] (4274F) Influenza immunization administe red or previously received 10:20:17 CDT CPT-07058 Prv Med Est Pt 40-64yrs 16:26:57 CDT CPT-35546 Venipuncture Draw Fee 11:08:31 CDT CPT-54347 Magnesium - LAB USE ONLY 11:08:31 CDT 10/15 CPT-17617 TSH - LAB USE ONLY 11:08:31 CDT CPT-65906 Lipid - LAB USE ONLY 11:08:30 CDT 2 CPT-46023 CMP - LAB USE ONLY 11:08:30 CDT CPT-13249 CBC - LAB USE ONLY 11:08:30 CDT CPT-85939 Spec Collection and Handling Fee 16:14:51 C DT CPT-35282 UA w micro - LAB USE ONLY 16:14:51 CDT 2018 CPT-86672 Prv Med Est Pt 40-64yrs 08:34:49 CDT 10/01 CPT-41995 Sed Rate - LAB USE ONLY 10:50:49 CDT 10/02 CPT-69526 TSH - LAB USE ONLY 10:50:49 CDT CPT-83085 Lipid - LAB USE ONLY 10:50:49 CDT 0 CPT-31856 Magnesium - LAB USE ONLY 10:50:49 CDT 10/02 CPT-95339 CMP - LAB USE ONLY 10:50:49 CDT CPT-56835 CBC - LAB USE ONLY 10:50:49 CDT CPT-32412 Venipuncture Draw Fee 10:50:49 CDT CPT-15857 IV Hydration < or = 1 hr 22:05:50 CDT 04/16 CPT-J7030 Normal Saline 1000 mL 22:05:50 CDT CPT-57715 Abx/Therapy Injection 16:31:51 MEETING MANAGER CPT-J2950 Phenergan 25 mg 16:31:51 MEETING MANAGER CPT-94238 Abx/Therapy Injection 16:39:40 CDT CPT-67650 First Vx - Ix admin via ID I M or jet injects without counseling by physician 16:39:39 CDT CPT-35871 Prv Med Est Pt 40-64yrs 16:33:10 CDT 11/10 CPT-JTINJ Asp/Joint Injection 16:13:36 CDT CPT-03458 Allergy Admin 2 16:54:52 CDT CPT-51147 Allergy Admin 2 16:46:15 CDT CPT-37638 Allergy Admin 2 11:29:09 CDT CPT-88877 Allergy Admin 2 17:05:15 CDT CPT-58599 Allergy Admin 2 12:31:51 CDT CPT-32160 Allergy Admin 2 15:40:56 CDT CPT-58265 CBC - LAB USE ONLY 09:49:24 CDT CPT-17415 CMP - LAB USE ONLY 09:49:24 CDT CPT-67279 Lipid - LAB USE ONLY 09:49:24 CDT 8 CPT-13506 Venipuncture Draw Fee 09:49:24 CDT CPT-43717 Allergy Admin 2 10:46:11 CDT CPT-JTINJ Asp/Joint Injection 09:52:58 CDT CPT-60760 Skin tag rem 1-15 13:46:20 CDT CPT-36380 Knee, right, 3V - XRAY USE ONLY 13:07:09 CD T CPT-32559 Allergy Admin 2 11:56:38 CDT CPT-15598 Allergy Admin 2 12:00:55 CDT CPT-57875 Allergy Admin 2 16:42:13 CDT CPT-68825 Allergy Admin 2 16:27:55 CDT CPT-10564 Allergy Admin 2 13:24:26 CDT CPT-50390 Allergy Admin 2 17:17:57 MEETING MANAGER CPT-45260 Allergy Admin 2 16:23:22 MEETING MANAGER CPT-98808 Allergy Admin 2 16:26:55 [facility] CPT-88403 Allergy Admin 2 16:32:33 [facility] CPT-56755 Allergy Admin 2 17:43:40 [facility] CPT-58464 Allergy Admin 2 16:26:07 MEETING MANAGER CPT-74910 Allergy Admin 2 12:31:50 [facility] CPT-49696 Allergy Admin 2 16:40:38 [facility] CPT-71476 Allergy Admin 2 17:07:36 CDT CPT-G0008 Administration of Influenza Virus Vaccine 17:01:01 CDT CPT-44606 First Vx - Ix admin via ID I M or jet injects without counseling by physician 17:01:01 CDT CPT-42165 Allergy Admin 2 12:06:54 CDT CPT-95149 Allergy Admin 2 17:04:46 CDT CPT-35231 Allergy Admin 2 16:34:48 CDT CPT-07299 Allergy Admin 2 17:04:51 CDT CPT-15331 Allergy Admin 2 16:25:14 CDT CPT-08137 Allergy Admin 2 10:52:02 CDT CPT-72400 Allergy Admin 2 11:45:31 CDT CPT-96374 Allergy Admin 2 12:02:20 CDT CPT-22131 Allergy Admin 2 15:47:29 CDT CPT-82097 Allergy Admin 2 13:25:44 CDT CPT-67248 Allergy Admin 2 10:51:13 CDT CPT-32554 CBC - LAB USE ONLY 10:44:39 CDT CPT-92179 CMP - LAB USE ONLY 10:44:39 CDT CPT-91396 Lipid - LAB USE ONLY 10:44:39 CDT 9 CPT-82774 Venipuncture Draw Fee 10:44:38 CDT CPT-28880 Allergy Admin 2 12:25:22 CDT CPT-49032 Allergy Admin 2 12:41:34 CDT CPT-47961 Allergy Admin 2 15:29:46 CDT CPT-31045 Allergy Admin 2 14:46:53 CDT CPT-63559 Allergy Admin 2 14:16:16 CDT CPT-34559 Allergy Admin 2 16:55:26 CDT CPT-97729 Allergy Admin 2 10:12:02 CDT CPT-09056 Allergy Admin 2 14:53:56 CDT CPT-87176 Allergy Admin 2 17:01:54 CDT CPT-92693 Allergy Admin 2 09:36:02 CDT CPT-35351 Allergy Admin 2 16:53:26 MEETING MANAGER CPT-98055 Allergy Admin 2 16:59:41 MEETING MANAGER CPT-38550 Allergy Admin 2 16:36:44 MEETING MANAGER CPT-93165 Allergy Admin 2 16:17:16 MEETING MANAGER CPT-92118 Allergy Admin 2 17:08:10 [facility] CPT-53597 Allergy Admin 2 12:16:08 MEETING MANAGER CPT-63569 Allergy Admin 2 16:47:30 MEETING MANAGER CPT-41322 Allergy Admin 2 16:59:44 MEETING MANAGER CPT-84188 Allergy Admin 2 12:48:53 MEETING MANAGER CPT-54001 Allergy Admin 2 10:19:48 MEETING MANAGER CPT-70984 Allergy Admin 2 12:40:17 MEETING MANAGER CPT-85869 Abx/Therapy Injection 17:21:59 MEETING MANAGER CPT-98063 First Vx - Ix admin via ID I M or jet injects without counseling by physician 17:21:57 MEETING MANAGER CPT-41494 Allergy Admin 2 17:20:12 MEETING MANAGER CPT-05808 Allergy Admin 2 11:12:50 MEETING MANAGER CPT-68530 Allergy Admin 2 17:02:39 CDT CPT-72779 BMP - LAB USE ONLY 10:33:02 CDT CPT-16753 CBC - LAB USE ONLY 10:33:02 CDT CPT-41699 Venipuncture Draw Fee 10:33:02 CDT CPT-66046 Abx/Therapy Injection 12:29:08 CDT CPT-54586 Allergy Admin 2 10:39:48 CDT CPT-47515 Allergy Admin 2 10:55:47 CDT CPT-PV Prev. Care Visit 10:10:00 CDT CPT-97216 Allergy Admin 2 11:31:20 CDT CPT-20438 Allergy Admin 2 16:53:45 CDT CPT-90665 Allergy Admin 2 16:36:42 CDT CPT-11801 Allergy Admin 2 16:30:19 CDT CPT-68529 Allergy Admin 2 15:39:35 CDT CPT-35268 Allergy Admin 2 17:51:32 CDT CPT-86427 Allergy Admin 2 11:50:50 CDT CPT-PV Prev. Care Visit 14:09:05 CDT CPT-60289 Allergy Admin 2 13:37:39 CDT CPT-67193 Abx/Therapy Injection 12:17:43 CDT CPT-77201 Venipuncture Draw Fee 10:39:55 CDT CPT-32175 Allergy Admin 2 12:04:53 CDT CPT-96825 Allergy Admin 2 10:04:39 CDT CPT-71164 Allergy Admin 2 12:15:35 CDT CPT-38125 Allergy Admin 2 17:04:36 CDT CPT-76533 Allergy Admin 2 16:25:49 CDT CPT-81255 Allergy Admin 2 17:30:06 CDT CPT-67120 Allergy Admin 2 10:11:48 CDT CPT-00787 Allergy Admin 2 17:06:13 CDT CPT-41911 Abx/Therapy Injection 12:23:07 CDT CPT-J0702 Celestone 12 mg (Betamethasone) 12:23:07 CD T CPT-48933 Venipuncture Draw Fee 10:26:42 CDT CPT-03964 Allergy Admin 2 12:10:01 CDT CPT-83587 Allergy Admin 2 15:13:57 MEETING MANAGER CPT-19589 Allergy Admin 2 16:55:22 MEETING MANAGER CPT-49226 Allergy Admin 2 10:13:46 MEETING MANAGER CPT-42764 Venipuncture Draw Fee 10:06:08 MEETING MANAGER CPT-76995 Allergy Admin 2 16:15:41 MEETING MANAGER CPT-89666 Allergy Admin 2 16:40:21 MEETING MANAGER CPT-23158 Allergy Admin 2 16:31:48 MEETING MANAGER CPT-77621 Allergy Admin 2 16:38:26 MEETING MANAGER CPT-71599 Allergy Admin 2 16:40:08 [facility] CPT-73851 Allergy Admin 2 08:34:27 [facility] CPT-81987 Allergy Admin 2 14:27:45 MEETING MANAGER CPT-08617 Destruction bgn lsn up to 14 09:41:27 [facility] 2 CPT-53655 Allergy Admin 2 17:45:17 [facility] CPT-38268 Allergy Admin 2 14:59:03 [facility] CPT-89147 Allergy Admin 2 12:49:42 CDT CPT-67564 Administration single or combination vac cine inc oral 15:01:57 CDT CPT-83516 Fluzone Quadrivalent Intramuscular Suspe nsion 0.5 ML 15:01:57 CDT CPT-50878 Allergy Admin 2 15:07:08 CDT CPT-64656 Allergy Admin 2 15:39:01 CDT CPT-26143 Allergy Admin 2 17:40:11 CDT CPT-29022 Allergy Admin 2 16:07:08 CDT CPT-88271 Allergy Admin 2 16:08:07 CDT CPT-30370 Venipuncture Draw Fee 09:34:29 CDT CPT-77554 Allergy Admin 2 16:27:43 CDT CPT-44836 Allergy Admin 2 15:53:10 CDT CPT-44040 Allergy Admin 2 15:42:29 CDT CPT-04864 Allergy Admin 2 11:26:14 CDT CPT-28335 Allergy Admin 2 10:36:24 CDT CPT-86401 Allergy Admin 2 16:53:37 CDT CPT-37025 Allergy Admin 2 11:21:44 CDT CPT-87273 Allergy Admin 2 10:50:40 CDT CPT-13063 Allergy Admin 2 11:19:11 CDT CPT-66705 Venipuncture Draw Fee 11:12:25 CDT CPT-95205 Allergy Admin 2 11:14:51 CDT CPT-58798 Allergy Admin 2 16:53:11 CDT CPT-30123 Allergy Admin 2 11:45:56 CDT CPT-52247 Allergy Admin 2 12:51:39 CDT CPT-52720 Allergy Admin 2 12:08:56 CDT CPT-88033 Allergy Admin 2 15:29:45 CDT CPT-31231 Allergy Admin 2 16:34:01 CDT CPT-52490 Allergy Admin 2 16:36:46 CDT CPT-45608 Allergy Admin 2 15:19:16 CDT CPT-97543 Allergy Admin 2 16:13:25 CDT CPT-23176 Allergy Admin 2 17:06:17 CDT CPT-78661 Allergy Admin 2 10:42:10 MEETING MANAGER CPT-93196 Allergy Admin 2 17:33:16 MEETING MANAGER CPT-61637 Allergy Admin 2 10:53:30 MEETING MANAGER CPT-86750 Allergy Admin 2 14:18:24 MEETING MANAGER CPT-21262 Allergy Admin 2 10:18:29 MEETING MANAGER CPT-78425 Allergy Admin 2 12:57:40 MEETING MANAGER CPT-55813 Allergy Admin 2 16:53:33 MEETING MANAGER CPT-62813 Allergy Admin 2 12:43:00 MEETING MANAGER CPT-89993 Allergy Admin 2 13:14:09 MEETING MANAGER CPT-81004 Pneumovax 23 Injection Injectable 25 MCG /0.5ML 09:51:29 MEETING MANAGER CPT-G0009 Administration of Pneumococcal Vaccine 09:51:29 MEETING MANAGER CPT-12215 Influenza split virus > age 3 09:51:29 MEETING MANAGER CPT-G0008 Administration of Influenza Virus Vaccine 02/23 09:51:29 MEETING MANAGER CPT-67510 Venipuncture Draw Fee 10:31:06 CDT CPT-J0702 Celestone 12 mg (Betamethasone) 11:34:17 CD T CPT-01824 Abx/Therapy Injection 11:34:17 CDT CPT-34867 Chest 2V Frontal and Lat 11:31:47 CDT 07/04 CPT-02588 Venipuncture Draw Fee 11:31:47 CDT CPT-02171 Allergy Admin 2 14:31:05 CDT CPT-84836 EKG Trac and Interp 08:42:32 CDT CPT-99102 Chest 2V Frontal and Lat 08:42:32 CDT 05/28 CPT-22123 Venipuncture Draw Fee 08:39:02 CDT CPT-04381 Allergy Admin 2 16:59:09 CDT CPT-34371 Allergy Admin 2 17:06:11 CDT CPT-82575 Allergy Admin 2 16:04:36 CDT CPT-67714 Venipuncture Draw Fee 16:32:44 MEETING MANAGER CPT-22747 Venipuncture Draw Fee 10:54:37 MEETING MANAGER CPT-97749 Allergy Admin 2 14:53:55 MEETING MANAGER CPT-66973 Allergy Admin 2 10:23:58 MEETING MANAGER CPT-81982 First Vx Component - Ix admi n via ID IM or jet inj without physician counseling 15:34:26 MEETING MANAGER CPT-39115 Fluzone (>=3 yrs.) 15:34:26 MEETING MANAGER CPT-86522 Allergy Admin 2 15:56:02 MEETING MANAGER CPT-78593 Allergy Admin 2 11:08:58 MEETING MANAGER CPT-46884 Allergy Admin 2 10:51:36 MEETING MANAGER CPT-97301 Allergy Admin 2 15:38:19 MEETING MANAGER CPT-36989 Allergy Admin 2 15:12:46 CDT CPT-94584 Allergy Admin 2 10:28:50 CDT CPT-01441 Allergy Admin 2 16:35:33 CDT CPT-38381 Allergy Admin 2 10:14:18 CDT CPT-91332 Abx/Therapy Injection 09:06:45 CDT CPT-J0702 Celestone 6 mg (Betamethasone) 09:06:45 CDT CPT-55513 Allergy Admin 2 15:51:15 CDT CPT-72930 Allergy Admin 2 10:40:16 CDT CPT-94493 Allergy Admin 2 16:35:55 CDT CPT-10225 Allergy Admin 2 13:12:52 CDT CPT-87524 Allergy Admin 2 16:06:50 CDT CPT-64815 Allergy Admin 2 11:04:24 CDT CPT-20554 Allergy Admin 2 10:44:50 CDT CPT-13774 Allergy Admin 2 15:13:40 CDT CPT-38532 Allergy Admin 2 15:00:03 CDT CPT-78646 Allergy Admin 2 10:37:38 CDT CPT-33525 Venipuncture Draw Fee 09:16:43 MEETING MANAGER CPT-60846 Allergy Admin 2 11:15:59 MEETING MANAGER CPT-06586 Postop F/U Visit 10:10:52 MEETING MANAGER CPT-68004 Allergy Admin 2 13:05:05 MEETING MANAGER CPT-75724 Postop F/U Visit 19:45:16 MEETING MANAGER CPT-09461 Allergy Admin 2 11:52:35 MEETING MANAGER CPT-29019 Allergy Admin 2 10:49:22 MEETING MANAGER CPT-OV Office Visit 13:55:55 MEETING MANAGER CPT-12254 Allergy Admin 2 12:54:28 MEETING MANAGER CPT-OV Office Visit 14:04:48 MEETING MANAGER CPT-29090 Venipuncture Draw Fee 10:29:14 MEETING MANAGER CPT-97440 Allergy Admin 2 11:24:43 MEETING MANAGER CPT-57682 Knee 3V 11:00:12 MEETING MANAGER CPT-46475 C-Spine Min 4V 11:00:12 MEETING MANAGER CPT-98147 Allergy Admin 2 13:38:40 MEETING MANAGER CPT-81914 Venipuncture Draw Fee 11:33:37 CDT CPT-01200 Allergy Admin 2 15:34:37 CDT CPT-18625 Allergy Admin 2 14:11:42 CDT CPT-24360 Administration single or combination vac cine inc oral 12:51:42 CDT CPT-00622 Influenza split virus > age 3 12:51:42 CDT CPT-11697 Allergy Admin 2 11:58:43 CDT CPT-07201 Allergy Admin 2 11:29:32 CDT CPT-88481 Allergy Admin 2 10:55:19 CDT CPT-31707 Allergy Admin 2 12:38:54 CDT CPT-37406 Allergy Admin 2 13:01:47 CDT CPT-90870 Abx/Therapy Injection 12:41:18 CDT CPT-J0702 Celestone 12 mg (Betamethasone) 12:41:18 CD T CPT-13076 Abx/Therapy Injection 16:33:09 CDT CPT-J0702 Celestone 12 mg (Betamethasone) 16:33:09 CD T CPT-67117 Allergy Admin 2 15:49:09 CDT CPT-48492 Allergy Admin 2 12:08:56 CDT CPT-77432 Allergy Admin 2 12:19:10 CDT CPT-55616 Allergy Admin 2 12:46:56 CDT CPT-06840 Allergy Admin 2 15:05:13 CDT CPT-60660 Allergy Admin 2 15:36:20 CDT CPT-25945 Allergy Admin 2 09:58:47 MEETING MANAGER CPT-36133 Allergy Admin 2 12:18:06 MEETING MANAGER CPT-93356 Allergy Admin 2 10:01:48 MEETING MANAGER CPT-81183 Allergy Admin 2 12:17:53 MEETING MANAGER CPT-36406 Allergy Admin 2 10:06:44 MEETING MANAGER CPT-94640 Allergy Admin 2 10:13:04 MEETING MANAGER CPT-48337 Venipuncture Draw Fee 10:09:07 MEETING MANAGER CPT-58333 Bone Density 12:24:51 MEETING MANAGER CPT-61847 Allergy Admin 2 11:29:41 MEETING MANAGER CPT-41619 Allergy Admin 2 16:07:15 MEETING MANAGER CPT-29598 Breathing Treatment 06:34:33 MEETING MANAGER CPT-J0702 Celestone 12 mg (Betamethasone) 06:34:33 CS T CPT-05066 Abx/Therapy Injection 06:34:33 MEETING MANAGER CPT-26041 Breathing Tx 11:07:33 MEETING MANAGER CPT-93630 Allergy Admin 2 10:02:33 CDT CPT-69439 Allergy Admin 2 10:02:33 CDT CPT-87567 Allergy Admin 2 15:26:19 CDT CPT-70359 Administration single or combination vac cine inc oral 15:41:12 CDT CPT-42555 Influenza split virus > age 3 15:41:12 CDT
--- OUTSIDE RECORDS SUMMARY | 2020-09-15 14:33 | XMS REPORT | Clinical Summary ---
Author Author Admin, Supriya Zuniga Organization [facility] [place] Address Unknown Phone Unavailable Allergies, Adverse Reactions, Alerts Allergy Name Reaction Description Start Date Severity Status Pr ovider TORADOL Critical Active Nereyda Lucke KETEK 01/19/2004 Critical Active Nereyda Lucke Conditions or Problems Problem Name Problem Code Onset Date Status Entry Date Provider Comment Standard Description Annotate HYPERLIPIDEMIA 272.4 Refinement Msity Yoo LP N Other and unspecified hyperlipidemia [...] Yang APRN Pruritus vulvae Active Ashley Yokum SEED TESTER Screening mammogram V76.12 Resolved Ashley Yokum A PRN Other screening mammogram Sinusitis, acute maxillary 461.0 Inactive 7 Ashley Yokum SEED TESTER Acute maxillary sinusitis Diarrhea, acute 787.91 Resolved Ashley Yokum SEED TESTER Diarrhea Vaginal candidiasis 112.1 Resolved Ashley Yokum A PRN Candidiasis of vulva and vagina Accidental fall E888.9 Resolved Ashley Yokum SEED TESTER Unspecified fall Contusion of left hand, initial encounter 923.20 Resol burak Ashley Yokum SEED TESTER Contusion of hand(s) Contusion of right upper arm, subsequent encounter V58.89 201 09/14/21 Resolved Ashley Yokum SEED TESTER Encounter for other specified a ftercare Ganglion cyst of left wrist 727.41 Active Derrick Younger MD Ganglion of joint Body Mass Index 31.0-31.9 Adult Resolved 2017 Ashley Yokum SEED TESTER Body Mass Index 31.0-31.9, adult Plantar fasciitis 728.71 Active Ashley Yokum SEED TESTER Plantar fascial fibromatosis Bronchitis, acute 466.0 Inactive Ashley Yokum APR N Acute bronchitis Body Mass Index 30.0-30.9 Adult Resolved 2017 Ashley Yokum SEED TESTER Body Mass Index 30.0-30.9, adult Allergic conjunctivitis, bilateral 372.14 Resolved 2 Ashley Yokum SEED TESTER Other chronic allergic conjunctivitis Skin tags; irritated/inflammed 701.9 Resolved 11/10 Ashley Yokum SEED TESTER Unspecified hypertrophic and atrophic co nditions of skin Body Mass Index 31.0-31.9 Adult Refinement 2017 Ashley Yokum SEED TESTER Body Mass Index 31.0-31.9, adult BMI 30-30.9 Refinement Ashley Yokum SEED TESTER Body Mass Index 31.0-31.9, adult BMI 31-31.9 Refinement Ashley Yokum SEED TESTER Body Mass Index 31.0-31.9, adult BMI 32-32.9 Refinement Lois Faith RN Body Mass Index 31.0-31.9, adult BMI 31-31.9 Active Viviana Rubio APRN-Julieta Body Mass Index 31.0-31.9, adult Major depression, recurrent, moderate 296.32 Active Ashley Yokum SEED TESTER Major depressive disorder, recurrent epi sode, moderate degree Obesity Class I (BMI 30-34.9) Active Ashley Y okum SEED TESTER Obesity, unspecified Nausea and vomiting 787.01 Resolved Ashley Yokum A PRN Nausea with vomiting Gastroenteritis acute 558.9 Resolved Ashley Yokum SEED TESTER Other and unspecified noninfectious gastroenteritis and colitis GERD 530.81 Active Ashley Yokum SEED TESTER E sophageal reflux Joint pain 719.40 Resolved Ashley Yokum SEED TESTER Pain in joint, site unspecified Preventive health care, adult V70.0 Inactive / Ashley Yokum SEED TESTER Routine general medical examination at a health care facility Blood in urine 599.70 Resolved Ashley Yokum SEED TESTER Hematuria, unspecified Other abnormal findings in urine Resolved Ashley Yokum SEED TESTER Urinary tract infection 599.0 Inactive Ashley Yok um SEED TESTER Urinary tract infection, site not specified Chafing of skin 709.8 Resolved Ashley Yokum SEED TESTER Other specified disorders of skin Preventive care V70.0 Active Supriya Betzaida A Routine general medical examination at a health care facility Gynecological examination, routine V72.3 Inactive 2 Ashley Yokum SEED TESTER Special investigations and e xaminations - Gynecological examination Near syncope 780.2 Resolved Ashley Yokum SEED TESTER Syncope and collapse Lightheadedness 780.4 Resolved Ashley Yokum SEED TESTER Dizziness and giddiness Headache 784.0 Resolved Ashley Yokum SEED TESTER Headache Sore throat 462 Resolved Ashley Yokum SEED TESTER Acute pharyngitis Sinusitis - acute 461.9 Resolved Ashley Yokum APR N Acute sinusitis, unspecified Tired all the time 780.79 Resolved Ashley Yokum AP RN Other malaise and fatigue Fatigue 780.79 Inactive Ashley Yokum SEED TESTER Other malaise and fatigue Preoperative examination V72.84 Inactive Conchis hi Yokum SEED TESTER Preoperative examination, unspecified Skin lesion 709.9 Inactive Ashley Yokum SEED TESTER Unspecified disorder of skin and subcutaneous tissue ABNORMAL WEIGHT GAIN ICD-783.1 Inactive Wayne paul PA ALLERGIC RHINITIS ICD-477.9 Inactive Lois mendieta SEED TESTER SINUSITIS ICD-473.9 Inactive Lois Leos SEED TESTER 2012 WHEEZING ICD-786.07 Inactive Lois Leos SEED TESTER 2012 UPPER RESPIRATORY INFECTION, ACUTE ICD-465.9 I nactive Lois Leos SEED TESTER NEED FOR DESENSITIZATION TO ALLERGENS ICD-V07.1 8 Inactive Ashley Yang SEED TESTER OBESITY ICD-278.00 Inactive Wayne Harms PA CONTACT DERMATITIS DUE TO POISON ARANZA ICD-692.6 Inactive Lois Leos SEED TESTER NEED PROPHYLACTIC VACCINATION&INOCULATION FLU ICD-V04.81 Inactive Wayne Harms PA GERD ICD-530.81 Inactive Lios Leos SEED TESTER 03/22 LONG-TERM (CURRENT) USE OF OTHER MEDICATIONS ICD-V58.69 6 Inactive Wayne Harms PA NECK PAIN ICD-723.1 Inactive Wayne Harms PA 06/15 DEGENERATIVE DISC DISEASE, CERVICAL SPINE ICD-722.4 Inactive Wayne Harms PA SKIN TAG ICD-701.9 Inactive Wayne Harms PA G E R D ICD-530.81 Inactive Lois Leos SEED TESTER CANDIDIASIS OF SKIN AND NAILS ICD-112.3 Inacti ve Wayne Harms PA AFTERCARE FOLLOW SURGERY MUSCULOSKEL SYSTEM NEC ICD-V58.78 Inactive Wayne Harms PA PHARYNGITIS ICD-462 Inactive Wayne Harms PA 05/03 OTHER SCREENING MAMMOGRAM ICD-V76.12 Inactive Wayne Harms PA DYSPAREUNIA, MILD ICD-625.0 Inactive Wayne Harm s PA CONTACT DERMATITIS DUE TO POISON ARANZA ICD-692.6 Inactive Wayne Harms PA Sinusitis, chronic ICD-473.9 Inactive Ashley Yo yoni SEED TESTER Myalgia ICD-729.1 Inactive Wayne Harms PA Rheumatoid [...] Harms PA Onychomycosis -dermatophytosis, nail ICD-110.1 Inactive Wanye Harms PA Skin tags; irritated/inflammed ICD-701.9 Inact rancho Wayne Harms PA Cough ICD-786.2 Inactive Wayne Moon PA Runny nose ICD-472.0 Inactive Ashley Yokum SEED TESTER Influenza like illness ICD-487.1 Inactive Wayne Moon PA Acute maxillary sinusitis ICD-461.0 Inactive Ashley Yokum SEED TESTER Preventive health care ICD-V70.0 Inactive Ka thi Yokum SEED TESTER Well women exam ICD-V72.3 Inactive Ashley Yokum SEED TESTER Screening mammogram ICD-V76.12 Inactive Ashley Yokum SEED TESTER Sinusitis, acute maxillary ICD-461.0 Inactive Ashley Yokum SEED TESTER Diarrhea, acute ICD-787.91 Inactive Ashley Yoku m SEED TESTER Vaginal candidiasis ICD-112.1 Inactive Ashley Y abdonum SEED TESTER Accidental fall ICD-E888.9 Inactive Ashley Yoku m SEED TESTER Contusion of left hand, initial encounter ICD-923.20 Inactive Ashley Yokum SEED TESTER Contusion of right upper arm, subsequent encounter ICD-V58.89 Inactive Ashley Yokum SEED TESTER Body Mass Index 31.0-31.9 Adult Inac tive Ashley Yokum SEED TESTER Bronchitis, acute ICD-466.0 Inactive Ashley Yok um SEED TESTER Body Mass Index 30.0-30.9 Adult Inac tive Ashley Yokum SEED TESTER Allergic conjunctivitis, bilateral ICD-372.14 I nactive Ashley Yokum SEED TESTER Skin tags; irritated/inflammed ICD-701.9 Inact rancho Ashley Yokum SEED TESTER Nausea and vomiting ICD-787.01 Inactive Ashley Yokum SEED TESTER Gastroenteritis acute ICD-558.9 Inactive Conchis hi Yokum SEED TESTER Joint pain ICD-719.40 Inactive Ashley Yokum APR N Preventive health care, adult ICD-V70.0 Inacti ve Ashley Yokum SEED TESTER Blood in urine ICD-599.70 Inactive Ashley Yokum SEED TESTER Other abnormal findings in urine Mara ctive Ashley Yokum SEED TESTER Urinary tract infection ICD-599.0 Inactive K athi Yokum SEED TESTER Chafing of skin ICD-709.8 Inactive Ashley Yokum SEED TESTER Gynecological examination, routine ICD-V72.3 I nactive Ashley Yokum SEED TESTER Near syncope ICD-780.2 Inactive Ashley Yokum AP RN Lightheadedness ICD-780.4 Inactive Ashley Yokum SEED TESTER Headache ICD-784.0 Inactive Ashley Yokum SEED TESTER 2020 Sore throat ICD-462 Inactive Ashley Yang SEED TESTER 02/17/17 Sinusitis - acute ICD-461.9 Inactive Ashley peacock SEED TESTER Tired all the time ICD-780.79 Inactive Ashley gutierrez SEED TESTER Fatigue ICD-780.79 Inactive Ashley Yang SEED TESTER 2020 Preoperative examination ICD-V72.84 Inactive Ashley Yang SEED TESTER Skin lesion ICD-709.9 Inactive Ashley Yang APR N Medication List Medication Instructions Start Date Stop Date Generic Name NDC Status Provider Patient Instruction ALPRAZOLAM 0.25 MG TABS TAKE 1 TO 2 TABLETS BY MOUTH THREE TIMES DAILY NEEDED ALPRAZOLAM [id number] Active Shanelle Rivera RN Active PHENTERMINE HCL 37.5 MG TABS 1 TAB IN MORING. TAKE 30 MIN BEFORE BREAKFAST OR 2 HRS AFTER BREAKFAST PHENTERMINE HCL 73795149196 Active Ashley Yang ELAINA Active ADK [id number] UNIT-MCG ORAL CAPSULE 1 daily 2 VITAMINS A D K 81737167882 No Longer Active Ashley Yang ELAINA Active EQ LORATADINE 10 MG ORAL TABLET TAKE 1 TABLET BY MOUTH ONCE DAILY NEEDED FOR ALLERGIES LORATADINE 18823455599 Active Shanelle Rivera RN Active MUCINEX D 60-600 MG ORAL TABLET EXTENDED RELEASE 12 HO UR 1 po BID PRN Congestion PSEUDOEPHEDRINE-GUAIFENESIN 76009308539 Active Ashley Yang ELAINA Active ZYRTEC ALLERGY 10 MG ORAL CAPSULE 1qd CETIR IZINE HCL 22283450753 No Longer Active Ashley Yang ELAINA Active HAIR, SKIN, NAILS VITAMINS take 1 tab by mouth 2x a day HAIR, SKIN, NAILS VITAMINS Active Ashley Yang APRN Active CENTRUM SILVER FOR WOMEN OVER 50 1 tab by mouth by day. CENTRUM SILVER FOR WOMEN OVER 50 Active Ashley Yang APRN Active VITAMIN D3 1000 UNIT ORAL CAPSULE 1 po qd CH OLECALCIFEROL 84824988138 Active Ashley Yang APRN Active PREDNISONE 20 MG ORAL TABLET Take 2 tablets by mouth d aily for 2 days then 1 tablet daily for 2 days. PREDNISONE 23138851811 No Longer Active Ashley Yang ELAINA Active MELOXICAM 15 MG ORAL TABLET TAKE 1 TABLET BY MOUTH IN THE MORNING 2 MELOXICAM 72734912639 Active Shanelle Rivera RN Active SIMVASTATIN 40 MG ORAL TABLET TAKE 1 TABLET BY MOUTH ONCE DA JAVON AT BEDTIME SIMVASTATIN 11915446409 Active Shanelle Rivera RN A ctive [id number] ORAL TABLET MULT IPLE MINERALS 84341809769 Active Lois Faith RN Active SERTRALINE HCL 100 MG ORAL TABLET Take 1 tablet by mouth once da javon SERTRALINE HCL 04538369416 Active LARRY Murillo A ctive REGLAN 10 MG ORAL TABLET 1 po qid for bowels 3 METOCLOPRAMIDE HCL 83944511064 No Longer Active Ashley Yang ELAINA A ctive B-12 2500 MCG ORAL TABLET 1 daily CYANOCOBAL HUNT 48554849343 No Longer Active Ashley Yang ELAINA Active ESTRADIOL 2 MG TABS Take 1 tablet by mouth once daily ESTRADIOL 45997331253 Active Shanelle Rivera RN Active MACROBID 100 MG ORAL CAPSULE 1 cap by mouth twice daily NITROFURANTOIN MONOHYD MACRO 50316698528 No Longer Active Ashley Yang ELAINA Active FISH OIL + D3 9767-3202 MG-UNIT ORAL CAPSULE 1 dailly 4 FISH OIL-CHOLECALCIFEROL 53185758604 Active Ashley Yang ELAINA Acti ve PROAIR HFA 108 (90 BASE) MCG/ACT INHALATION AEROSOL SO LUTION 2 puffs four times a day as needed ALBUTEROL SULFATE 76895959116 No Long er Active Ashley Yokum SEED TESTER Active ZITHROMAX Z-SANJANA 250 MG ORAL TABLET Take 2 tablets toda y and 1 each day till gone AZITHROMYCIN 95295488569 No Longer Active Ashley Yokum SEED TESTER Active POLYTRIM 56438-6.1 UNIT/ML-% OPHTHALMIC SOLUTION 1 gtt to affected eye q3h x 7 days POLYMYXIN B-TRIMETHOPRIM 50936039560 No Longer Active Ashley Yokum SEED TESTER Active IBUPROFEN 200 MG ORAL TABLET Take 3 tablets every 6hrs 201 09/17/15 IBUPROFEN 27332269710 No Longer Active Ashley Yokum SEED TESTER Active DIFLUCAN 150 MG ORAL TABLET Take one tablet today and repeat in 72 hours FLUCONAZOLE 24527282325 No Longer Active Derrick cardenas MD Active DIFLUCAN 150 MG ORAL TABLET 1 by mouth for yeast 03/03 FLUCONAZOLE 31884130781 No Longer Active Ashley Yokum SEED TESTER Active AUGMENTIN 875-125 MG ORAL TABLET Take one tablet twice a day with food AMOXICILLIN-POT CLAVULANATE 29612623640 No Longer Act rancho Ashley Yokum SEED TESTER Active CALCIUM 600 + D 600-200 MG-UNIT ORAL TABLET Take one daily CALCIUM CARB-CHOLECALCIFEROL 02614357208 No Longer Active Ashley Yokum SEED TESTER Active FLONASE 50 MCG/ACT NASAL SUSPENSION 1 spray each nostr il twice daily for allergies and runny nose FLUTICASONE PROPIONATE 17299654527 No Longer Active Ashley Yokum SEED TESTER Active CLARITIN-D 12 HOUR 5-120 MG ORAL TABLET EXTENDED RELEA SE 12 HOUR Take one tablet BID as needed for allergies LORATADINE-PSEUDOEP HEDRINE 39474123004 No Longer Active Beth Nafgeeta CAFE LEAD Active AMOXICILLIN-POT CLAVULANATE 875-125 MG ORAL TABLET 1 pill by mouth twice daily AMOXICILLIN-POT CLAVULANATE 81550179511 No Longer Act rancho Ashley Yang SEED TESTER Active AMOXICILLIN 500 MG ORAL CAPSULE Take 1 capsule by tk h three times a day X 10 days AMOXICILLIN 76864678107 No Longer Active Wayne H arms PA Active PROBIOTIC DAILY ORAL CAPSULE Take one daily PROBIO TIC PRODUCT 75787101136 Active Wayne Harms PA Active TYLENOL 325 MG ORAL TABLET Take 2 every 6hrs prn A CETAMINOPHEN 21999760131 Active Wayne Harms PA Active ACETAMINOPHEN 500 MG ORAL TABLET prn RICH TAMINOPHEN 09004853130 No Longer Active Wayne Harms PA Active CLARITIN-D 12 HOUR 5-120 MG ORAL TABLET EXTENDED RELEA SE 12 HOUR Take one tablet bid LORATADINE-PSEUDOEPHEDRINE 96799129341 No Longe r Active Wayne Harms PA Active MOBIC 15 MG ORAL TABLET 1 tablet by mouth daily in am with PPI 2 MELOXICAM 68335816540 No Longer Active Wayne Harms PA Acti ve HYDROCORTISONE 2.5 % EXTERNAL CREAM Apply three times a day to affected area HYDROCORTISONE 38264175559 No Longer Active Wayne Harms PA Active VITAMIN D3 1000 UNIT ORAL TABLET Take two daily CHOLECALCIFEROL 93265970370 No Longer Active Wayne Harms PA Active PROBIOTIC ORAL CAPSULE Take one daily PROBIOTIC PRODUCT 32616637685 No Longer Active Wayne Harms PA Active GREEN TEA SLIM ORAL TABLET Take one daily [facility] 32556423839 No Longer Active Wayne Harms PA Active BENZONATATE 200 MG ORAL CAPSULE Take one capsule three times a d ay BENZONATATE 91720112646 No Longer Active Wayne Harms PA Act rancho ZITHROMAX Z-SANJANA 250 MG ORAL TABLET 2 today, then 1 daily for 4 d ays AZITHROMYCIN 66697661592 No Longer Active Wayne Harms PA Ac tive ZITHROMAX 250 MG ORAL TABLET 2 po today, then 1 po q days 2-5 20 31/03/18 AZITHROMYCIN 52839788385 No Longer Active Beth Turner CAFE LEAD Active OMEPRAZOLE 20 MG ORAL CAPSULE DELAYED RELEASE 1 tablet by mo [facility] daily OMEPRAZOLE 75042871787 Active Supriya Huston RMA Active ZITHROMAX Z-SANJANA 250 MG ORAL TABLET 2x1day,[id number] 2014 AZITHROMYCIN 11368952973 No Longer Active Wayne Harms PA Active FISH OIL 1200 MG ORAL CAPSULE One daily prn OME GA-3 FATTY ACIDS 11283213761 No Longer Active Wayne Harms PA Active CEPHALEXIN 250 MG ORAL CAPSULE Take one tablet qid 201 05/25/29 CEPHALEXIN 73563959684 No Longer Active Wayne Harms PA Active VITAMIN D3 1000 UNIT ORAL TABLET 1qd CHOLEC ALCIFEROL 17057917994 No Longer Active Wayne Harms PA Active B-12 2000 MCG ORAL TABLET 1qd CYANOCOBALAMI N 32626119653 No Longer Active Wayne Harms PA Active ACIPHEX 20 MG ORAL TABLET DELAYED RELEASE 1qd 10/28 RABEPRAZOLE SODIUM 35708966864 No Longer Active Wayne Harms PA Active HYDROCORTISONE 2.5 % EXTERNAL CREAM apply 3-4 times a day to affected area HYDROCORTISONE 97621140360 No Longer Active Wayne Harms PA Active MUCINEX 600 MG ORAL TABLET EXTENDED RELEASE 12 HOUR 2qd GUAIFENESIN 19179144569 No Longer Active Wayne Harms PA Active TUSSIONEX PENNKINETIC ER 10-8 MG/5ML ORAL SUSPENSION E XTENDED RELEASE 5ml po q12hr PRN Cough HYDROCOD POLST-CHLORPHEN POLST 5 2890248157 No Longer Active Wayne Harms PA Active ZITHROMAX 250 MG ORAL TABLET 2 po today, then 1 po q days 2-5 20 26/06/21 AZITHROMYCIN 07262204819 No Longer Active Wayne Harms PA Ac tive CLARITIN 10 MG ORAL TABLET one tablet daily THEO ATADINE 73939010681 No Longer Active Awyne Harms PA Active FLAGYL 500 MG ORAL TABLET 1 tablet by mouth three times daily 20 28/05/03 METRONIDAZOLE 54986261416 No Longer Active Wayne Harms PA A ctive CHERATUSSIN AC 100-10 MG/5ML ORAL SYRUP one teaspoon qid. 9 GUAIFENESIN-CODEINE 36605795889 No Longer Active Wayne Harms PA Act rancho VITAMIN D 1000 UNIT ORAL TABLET 1qd CHOLECA LCIFEROL 71039218198 No Longer Active Wayne Harms PA Active CYMBALTA 60 MG ORAL CAPSULE DELAYED RELEASE PARTICLES 1 cap by mouth daily DULOXETINE HCL 72482961354 No Longer Active Wayne Harms PA Active AMOXICILLIN 500 MG ORAL CAPSULE 2 caps tid for 10days AMOXICILLIN 53376704650 No Longer Active Wayne Harms PA Active CALCIUM + D 600-200 MG-UNIT TABS Take one by mouth daily CALCIUM CARBONATE-VITAMIN D 81662014070 No Longer Active Wayne Harms PA Active CENTRUM SILVER ADULT 50+ ORAL TABLET 1qd 2013 MULTIPLE VITAMINS-MINERALS 09681018791 No Longer Active Wayne Harms PA Active VENLAFAXINE HCL 75 MG ORAL TABLET 1tid VE NLAFAXINE HCL 72908369541 No Longer Active Wayne Harms PA Active CLARITIN 10 MG ORAL TABLET 1 tablet by mouth daily as needed for allergies LORATADINE 76741453698 No Longer Active Wayne Harms PA Acti ve HYDROCORTISONE 2.5 % EXTERNAL CREAM Apply four times a day to af fected area HYDROCORTISONE 21304691392 No Longer Active Wayne Harms PA Active ZITHROMAX 250 MG ORAL TABLET 2 po today, then 1 po q days 2-5 20 26/02/30 AZITHROMYCIN 22422719882 No Longer Active Wayne Harms PA Ac tive ZITHROMAX 250 MG ORAL TABLET 2 po today, then 1 po q days 2-5 20 27/02/16 AZITHROMYCIN 44221929667 No Longer Active Wayne Harms PA Ac tive CYMBALTA 30 MG ORAL CAPSULE DELAYED RELEASE PARTICLES 3 caps daily DULOXETINE HCL 10762321921 No Longer Active Wayne Harms PA Active CYMBALTA 60 MG ORAL CAPSULE DELAYED RELEASE PARTICLES one tablet daily, takes 30mg. with 60mg. to make 90 mg. DULOXETINE HCL 16805677532 No Longer Active Wayne Harms PA Active CYMBALTA 30 MG ORAL CAPSULE DELAYED RELEASE PARTICLES 1 daily wi th 60mg DULOXETINE HCL 84872125567 No Longer Active Wayne Harms PA Active ZITHROMAX 250 MG ORAL TABLET 2 po today, then 1 po q days 2-5 20 26/12/21 AZITHROMYCIN 88261457694 No Longer Active Ismael YANG Active PREDNISONE 20 MG ORAL TABLET 3tab x 2days,2tab x 2days ,1tab x 2days,1/2tab x 2days PREDNISONE 57315261178 No Longer Active Wanye Vera jarvis PA Active PREMARIN 0.625 MG ORAL TABLET Take one by mouth daily ESTROGENS CONJUGATED 72687777466 No Longer Active Wayne Harms PA Active ZITHROMAX 250 MG ORAL TABLET 2 po today, then 1 po q days 2-5 20 26/06/19 AZITHROMYCIN 49194784015 No Longer Active Nereydasatnam Isaacs Activ e OMEGA-3 1000 MG ORAL CAPSULE 2qd OMEGA-3 FA TTY ACIDS 72820209440 No Longer Active Wayne Harms PA Active BENADRYL ITCH STOPPING 1-0.1 % EXTERNAL CREAM prn DIPHENHYDRAMINE- ZINC ACETATE 92653992279 No Longer Active Wayne Harms PA Active LOTRISONE 1-0.05 % EXTERNAL CREAM Apply bid CLOTRIMAZOLE-BETAMETHASONE 40591520847 No Longer Active Wayne Harms PA Active ZITHROMAX Z-SANJANA 250 MG ORAL TABLET take as directed 20 26/04/19 AZITHROMYCIN 63630875751 No Longer Active Wayne Harms PA Active NYSTATIN 095873 UNIT/GM EXTERNAL POWDER Apply to affected areas BID NYSTATIN 06309921979 No Longer Active Wayne Harms PA Acti ve BENADRYL 25 MG ORAL CAPSULE prn DIPHENHYDRAMINE HCL 43989865643 Active Wayne Harms PA Active LOTRISONE 1-0.05 % EXTERNAL CREAM apply twice a day 20 25/02/17 CLOTRIMAZOLE-BETAMETHASONE 77242215540 No Longer Active Wayne Harms PA Active HYDROCODONE-ACETAMINOPHEN 5-325 MG ORAL TABLET 1-2 every 4hr s prn pain HYDROCODONE-ACETAMINOPHEN 27833547033 No Longer Activ e Wayne Harms PA Active VICODIN 5-300 MG ORAL TABLET 1-2 tabs every 6hrs as needed for p ain HYDROCODONE-ACETAMINOPHEN 83615513669 No Longer Active Wayne Harms PA Active BENADRYL 25 MG ORAL CAPSULE 1prn DIPHENHYDRA MINE HCL 74107050885 No Longer Active Jillina Frazell SEED TESTER Active ROBITUSSIN DM 100-10 MG/5ML ORAL SYRUP 2 teaspoons four times a day DEXTROMETHORPHAN-GUAIFENESIN 34487246963 No Longer Active Jillina Frazell SEED TESTER Active ACIPHEX 20 MG ORAL TABLET DELAYED RELEASE Take one by mouth daily RABEPRAZOLE SODIUM 40742535689 No Longer Active Jillina Frazell SEED TESTER Active TUMS 500 MG ORAL TABLET CHEWABLE prn SADIQ CIUM CARBONATE ANTACID 00967925712 No Longer Active Jillina Frazell SEED TESTER Active PEPTO-BISMOL 524 MG/30ML ORAL SUSPENSION prn 02/26 BISMUTH SUBSALICYLATE 55882663179 No Longer Active Jillina Frazell SEED TESTER Active BACTRIM DS 800-160 MG ORAL TABLET 1bid SULFAMETHOXAZOLE-TRIMETHOPRIM 90568680822 No Longer Active Beth Naff CAFE LEAD Active GAVISCON EXTRA RELIEF FORMULA CHEW prn A LUM HYDROXIDE-MAG CARBONATE CHEW 73703689771 Active Wayne Harms PA Active DIFLUCAN 150 MG ORAL TABLET 1stat FLUCONAZOL E 88241399114 No Longer Active Wayne Harms PA Active AUGMENTIN 875-125 MG ORAL TABLET 1 tab by mouth twice daily with food AMOXICILLIN-POT CLAVULANATE 02307117568 No Longer Act rancho Wayne Harms PA Active FLUTICASONE PROPIONATE 50 MCG/ACT NASAL SUSPENSION 1 t o 2 sprays each nostril twice a day FLUTICASONE PROPIONATE 21151931058 No Lo nger Active Wayne Harms PA Active HYDROCORTISONE 2.5 % EXTERNAL CREAM apply 2-4 times a day, a s directed, prn HYDROCORTISONE 37527469739 No Longer Active Wayne Harms PA Active ZITHROMAX Z-SANJANA 250 MG ORAL TABLET A ZITHROMYCIN 17911675851 No Longer Active Wayne Harms PA Active SIMVASTATIN 40 MG ORAL TABLET one tablet daily SIMVASTATIN 47731176920 No Longer Active Misty Yoo LPN Active LOVASTATIN 40 MG ORAL TABLET Take one by mouth daily 12/11 LOVASTATIN 44285106334 No Longer Active Misty Yoo LPN Active PREDNISONE 20 MG ORAL TABLET 2 PO qd x 2d, 1 PO qd x 2d, 1/2 PO qd x 2d PREDNISONE 89181430195 No Longer Active Ismael silva PA Active ZITHROMAX 250 MG ORAL TABLET two tablets now and one daily x 4 d ays AZITHROMYCIN 36971123618 No Longer Active Misty Yoo LPN Active ZOLPIDEM TARTRATE 10MG TABS (ZOLPIDEM TARTRATE) 1 at bedtime as needed Active Supriya Huston RMA Active CLOBETASOL PROPIONATE 0.05 % EXTERNAL CREAM apply as directed CLOBETASOL PROPIONATE 40672406231 No Longer Active Wayne Harms PA A ctive CYMBALTA 30 MG ORAL CAPSULE DELAYED RELEASE PARTICLES takes 90mg qod alt with 60mg DULOXETINE HCL 57502970015 No Longer Active Wayne Harm s PA Active ZITHROMAX 250 MG ORAL TABLET 2 po today, then 1 po q days 2-5 20 12/24/14 AZITHROMYCIN 95797000114 No Longer Active Wayne Harms PA Ac tive TRIAMCINOLONE ACETONIDE 0.1 % EXTERNAL CREAM apply qid TRIAMCINOLONE ACETONIDE 34074962455 No Longer Active Wayne Harms PA Active ALPRAZOLAM 0.25 MG ORAL TABLET 1 tab three times a day 201 02/23/14 ALPRAZOLAM 48488783708 No Longer Active Wayne Harms PA Active ZOLPIDEM TARTRATE 5 MG ORAL TABLET 1 at bedtime as needed ZOLPIDEM TARTRATE 76656779813 No Longer Active Beth Turner CAFE LEAD Active ALPRAZOLAM 0.25 MG ORAL TABLET 1 tab three times a day ALPRAZOLAM 0.25 MG ORAL TABLET 823886 ALPRAZOLAM Inactive TRIAMCINOLONE ACETONIDE 0.1 % EXTERNAL CREAM apply qid TRIAMCINOLONE ACETONIDE 0.1 % EXTERNAL CREAM 6660829 TRIAMCINOLONE A CETONIDE Inactive CYMBALTA 30 MG ORAL CAPSULE DELAYED RELEASE PARTICLES takes 90mg qod alt with 60mg CYMBALTA 30 MG ORAL CAPSULE DELAYED RELEA SE PARTICLES 891191 DULOXETINE HCL Inactive CLOBETASOL PROPIONATE 0.05 % EXTERNAL CREAM apply as directed CLOBETASOL PROPIONATE 0.05 % EXTERNAL CREAM 304086 CLOBETASOL PROPI KELVIN Inactive LOVASTATIN 40 MG ORAL TABLET Take one by mouth daily 2 LOVASTATIN 40 MG ORAL TABLET 254534 LOVASTATIN Inactive ZITHROMAX Z-SANJANA 250 MG ORAL TABLET 03/03 ZITHROMAX Z-SANJANA 250 MG ORAL TABLET 780265 AZITHROMYCIN Inactive HYDROCORTISONE 2.5 % EXTERNAL CREAM apply 2-4 times a day, a s directed, prn HYDROCORTISONE 2.5 % EXTERNAL CREAM 087875 HYDRO CORTISONE Inactive FLUTICASONE PROPIONATE 50 MCG/ACT NASAL SUSPENSION 1 t o 2 sprays each nostril twice a day FLUTICASONE PROPIONA TE 50 MCG/ACT NASAL SUSPENSION 5728089 FLUTICASONE PROPIONATE Inactive AUGMENTIN 875-125 MG ORAL TABLET 1 tab by mouth twice daily with food AUGMENTIN 875-125 MG ORAL TABLET AMOXICIL BLOSSOM-POT CLAVULANATE Inactive DIFLUCAN 150 MG ORAL TABLET 1stat DIFLUCAN 150 MG ORAL TABLET 760126 FLUCONAZOLE Inactive PEPTO-BISMOL 524 MG/30ML ORAL SUSPENSION prn PEPTO-BISMOL 524 MG/30ML ORAL SUSPENSION BISMUTH SUBSALICYLATE Inactive TUMS 500 MG ORAL TABLET CHEWABLE prn TUMS 500 MG ORAL TABLET CHEWABLE 984332 CALCIUM CARBONATE ANTACID Inactive ACIPHEX 20 MG ORAL TABLET DELAYED RELEASE Take one by mouth daily ACIPHEX 20 MG ORAL TABLET DELAYED RELEASE 805945 RABEPRAZOLE SODIUM Inactive ROBITUSSIN DM 100-10 MG/5ML [...] pain HYDROCODONE-ACETAMINOPHEN 5-325 MG ORAL TABLET 8 78126 HYDROCODONE-ACETAMINOPHEN Inactive LOTRISONE 1-0.05 % EXTERNAL CREAM apply twice a day 20 25/02/17 LOTRISONE 1- 0.05 % EXTERNAL CREAM CLOTRIMAZOLE-BETAMETHASONE Inactive NYSTATIN 809486 UNIT/GM EXTERNAL POWDER Apply to affected areas BID NYSTATIN 019071 UNIT/GM EXTERNAL POWDER 450982 NYSTATIN Inactive ZITHROMAX Z-SANJANA 250 MG ORAL TABLET take as directed 20 26/04/19 ZITHROMAX Z-SANJANA 250 MG ORAL TABLET 646777 AZITHROMYCIN [place] LOTRISONE 1-0.05 % EXTERNAL CREAM Apply bid LOTRISONE 1- 0.05 % EXTERNAL CREAM CLOTRIMAZOLE-BETAMETHASONE Inactive BENADRYL ITCH STOPPING 1-0.1 % EXTERNAL CREAM prn BENADRYL ITCH STOPPING 1-0.1 % EXTERNAL CREAM DIPHENHYDRAMINE-ZINC ACETATE Inactive OMEGA-3 1000 MG ORAL CAPSULE 2qd OMEGA-3 1000 MG ORAL CAPSULE 860495 OMEGA-3 FATTY ACIDS Inactive ZITHROMAX 250 MG ORAL TABLET 2 po today, then 1 po q days 2-5 20 26/06/19 ZITHROMAX 250 MG ORAL TABLET 018030 AZITHROMYCIN [place] PREMARIN 0.625 MG ORAL TABLET Take one by mouth daily PREMARIN 0.625 MG ORAL TABLET ESTROGENS CONJUGATED Inactive PREDNISONE 20 MG ORAL TABLET 3tab x 2days,2tab x 2days ,1tab x 2days,1/2tab x 2days PREDNISONE 20 MG ORAL TABLET 123231 PREDNIS ONE Inactive CYMBALTA 30 MG ORAL CAPSULE DELAYED RELEASE PARTICLES 1 daily wi th 60mg CYMBALTA 30 MG ORAL CAPSULE DELAYED RELEASE PARTICLES 865183 DULOXETINE HCL Inactive CYMBALTA 60 MG ORAL CAPSULE DELAYED RELEASE PARTICLES one tablet daily, takes 30mg. with 60mg. to make 90 mg. CYMBALTA 60 MG ORAL CAPSULE DELAYED RELEASE PARTICLES 932311 DULOXETINE HCL Inacti ve CYMBALTA 30 MG ORAL CAPSULE DELAYED RELEASE PARTICLES 3 caps daily CYMBALTA 30 MG ORAL CAPSULE DELAYED RELEASE PARTICLES 158510 DULOXE ROSANNE HCL Inactive HYDROCORTISONE 2.5 % EXTERNAL CREAM Apply four times a day to af fected area HYDROCORTISONE 2.5 % EXTERNAL CREAM 887967 HYDROCORTISO NE Inactive CLARITIN 10 MG ORAL TABLET 1 tablet by mouth daily as needed for allergies CLARITIN 10 MG ORAL TABLET 452533 LORATADINE Inact [place] VENLAFAXINE HCL 75 MG ORAL TABLET 1tid VENLAFAXINE HCL 75 MG ORAL TABLET 575774 VENLAFAXINE HCL Inactive CENTRUM SILVER ADULT 50+ ORAL TABLET 1qd 2013 CENTRUM SILVER ADULT 50+ ORAL TABLET MULTIPLE VITAMINS-MINERALS Inactive CALCIUM + D 600-200 MG-UNIT TABS Take one by mouth daily CALCIUM + D 600-200 MG-UNIT TABS CALCIUM CARBONATE-VITAMIN D Inactive AMOXICILLIN 500 MG ORAL CAPSULE 2 caps tid for 10days AMOXICILLIN 500 MG ORAL CAPSULE 021605 AMOXICILLIN Inactive CYMBALTA 60 MG ORAL CAPSULE DELAYED RELEASE PARTICLES 1 cap by mouth daily CYMBALTA 60 MG ORAL CAPSULE DELAYED RELE ASE PARTICLES 297437 DULOXETINE HCL Inactive VITAMIN D 1000 UNIT ORAL TABLET 1qd 2014/04/0 4 VITAMIN D 1000 UNIT ORAL TABLET CHOLECALCIFEROL Inactive CHERATUSSIN AC 100-10 MG/5ML ORAL SYRUP one teaspoon qid. 9 CHERATUSSIN AC 100-10 MG/5ML ORAL SYRUP GUAIFENESIN-CODEINE Inactive FLAGYL 500 MG ORAL TABLET 1 tablet by mouth three times daily 20 28/05/03 FLAGYL 500 MG ORAL TABLET 113113 METRONIDAZOLE Inacti ve CLARITIN 10 MG ORAL TABLET one tablet daily CLARITIN 10 MG ORAL TABLET 876171 LORATADINE Inactive TUSSIONEX PENNKINETIC ER 10-8 MG/5ML [...] affected area HYDROCORTISONE 2.5 % EXTERNAL CREAM 046315 HYDRO CORTISONE Inactive ACIPHEX 20 MG ORAL TABLET DELAYED RELEASE 1qd ACIPHEX 20 MG ORAL TABLET DELAYED RELEASE 467711 RABEPRAZOLE SODIUM Inactive B-12 2000 MCG ORAL TABLET 1qd B-12 2000 MCG ORAL TABLET CYANOCOBALAMIN Inactive VITAMIN D3 1000 UNIT ORAL TABLET 1qd VITAMIN D3 1000 UNIT ORAL TABLET CHOLECALCIFEROL Inactive CEPHALEXIN 250 MG ORAL CAPSULE Take one tablet qid 201 05/25/29 CEPHALEXIN 250 MG ORAL CAPSULE 914560 CEPHALEXIN Inactive FISH OIL 1200 MG ORAL CAPSULE One daily prn FISH OIL 1200 MG ORAL CAPSULE OMEGA-3 FATTY ACIDS Inactive ZITHROMAX Z-SANJANA 250 MG ORAL TABLET 2x1day,8f5jlis 2014 ZITHROMAX Z-SANJANA 250 MG ORAL TABLET 538864 AZITHROMYCIN [place] BENZONATATE 200 MG ORAL CAPSULE Take one capsule three times a d ay BENZONATATE 200 MG ORAL CAPSULE 450683 BENZONATATE Inactive GREEN TEA SLIM ORAL TABLET Take one daily GREEN TEA SLIM ORAL TABLET MISC NATURAL PRODUCTS Inactive PROBIOTIC ORAL CAPSULE Take one daily PROBIOTIC ORAL CAPSULE 3873145 PROBIOTIC PRODUCT Inactive VITAMIN D3 1000 UNIT ORAL TABLET Take two daily 05/05 VITAMIN D3 1000 UNIT ORAL TABLET CHOLECALCIFEROL Inactive HYDROCORTISONE 2.5 % EXTERNAL CREAM Apply three times a day to affected area HYDROCORTISONE 2.5 % EXTERNAL CREAM 125399 HYDRO CORTISONE Inactive MOBIC 15 MG ORAL TABLET 1 tablet by mouth daily in am with PPI 2 MOBIC 15 MG ORAL TABLET 047759 MELOXICAM Inactive CLARITIN-D 12 HOUR 5-120 MG ORAL TABLET EXTENDED RELEA SE 12 HOUR Take one tablet bid CLARITIN-D 12 HOUR 5 -120 MG ORAL TABLET EXTENDED RELEASE 12 HOUR LORATADINE-PSEUDOEPHEDRINE Inactive ACETAMINOPHEN 500 MG ORAL TABLET prn ACETAMINOPHEN 500 MG ORAL TABLET 730395 ACETAMINOPHEN Inactive CLARITIN-D 12 HOUR 5-120 MG [...] yeast 03/03 DIFLUCAN 150 MG ORAL TABLET 634965 FLUCONAZOLE Inactive DIFLUCAN 150 MG ORAL TABLET Take one tablet today and repeat in 72 hours DIFLUCAN 150 MG ORAL TABLET 164222 FLUCONAZOLE Inactive IBUPROFEN 200 MG ORAL TABLET Take 3 tablets every 6hrs IBUPROFEN 200 MG ORAL TABLET 436579 IBUPROFEN Inactive ZITHROMAX Z-SANJANA 250 MG ORAL TABLET Take 2 tablets toda y and 1 each day till gone ZITHROMAX Z-SANJANA 250 MG ORAL TABLET 196181 A ZITHROMYCIN Inactive PROAIR HFA 108 (90 [...] bowels 3 REGLAN 10 MG ORAL TABLET 749562 METOCLOPRAMIDE HCL Inactive PREDNISONE 20 MG ORAL TABLET Take 2 tablets by mouth d aily for 2 days then 1 tablet daily for 2 days. PREDNISONE 20 MG ORAL T ABLET 148153 PREDNISONE Inactive ZYRTEC ALLERGY 10 MG ORAL CAPSULE 1qd ZYRTEC ALLERGY 10 MG ORAL CAPSULE CETIRIZINE HCL Inactive ADK 4955-4722-819 UNIT-MCG ORAL CAPSULE 1 daily 2 ADK 7712-7999-027 UNIT-MCG ORAL CAPSULE VITAMINS A D K Inac tive ZITHROMAX 250 MG ORAL TABLET 2 po today, then 1 po q days 2-5 20 12/24/14 ZITHROMAX 250 MG ORAL TABLET 462094 AZITHROMYCIN [place] ZITHROMAX 250 MG ORAL TABLET two tablets now and one daily x 4 d ays ZITHROMAX 250 MG ORAL TABLET 945882 AZITHROMYCIN [place] PREDNISONE 20 MG ORAL TABLET 2 PO qd x 2d, 1 PO qd x 2d, 1/2 PO qd x 2d PREDNISONE 20 MG ORAL TABLET 480460 PREDNISONE Inactive SIMVASTATIN 40 MG ORAL TABLET one tablet daily SIMVASTATIN 40 MG ORAL TABLET 19810213 SIMVASTATIN Inactive BACTRIM DS 800-160 MG ORAL TABLET 1bid BACTRIM DS 800-160 MG ORAL TABLET 710239 SULFAMETHOXAZOLE-TRIMETHOPRIM Inactive ZITHROMAX 250 MG ORAL TABLET 2 po today, then 1 po q days 2-5 20 26/12/21 ZITHROMAX 250 MG ORAL TABLET 247300 AZITHROMYCIN [place] ZITHROMAX 250 MG ORAL TABLET 2 po today, then 1 po q days 2-5 20 27/02/16 ZITHROMAX 250 MG ORAL TABLET 603573 AZITHROMYCIN [place] ZITHROMAX 250 MG ORAL TABLET 2 po today, then 1 po q days 2-5 20 26/02/30 ZITHROMAX 250 MG ORAL TABLET 456563 AZITHROMYCIN [place] ZITHROMAX 250 MG ORAL TABLET 2 po today, then 1 po q days 2-5 20 26/06/21 ZITHROMAX 250 MG ORAL TABLET 547516 AZITHROMYCIN [place] ZITHROMAX 250 MG ORAL TABLET 2 po today, then 1 po q days 2-5 20 31/03/18 ZITHROMAX 250 MG ORAL TABLET 452236 AZITHROMYCIN [place] ZITHROMAX Z-SANJANA 250 MG ORAL TABLET 2 today, then 1 daily for 4 d ays ZITHROMAX Z-SANJANA 250 MG ORAL TABLET 444246 AZITHROMYCIN Inactive AMOXICILLIN 500 MG ORAL CAPSULE Take 1 capsule by mout h three times a day X 10 days AMOXICILLIN 500 MG ORAL CAPSULE 665194 AMOX ICILLIN Inactive AMOXICILLIN-POT CLAVULANATE 875-125 MG ORAL TABLET 1 pill by mouth twice daily AMOXICILLIN-POT CLAVULANATE 875-125 MG ORAL TABL ET 384929 AMOXICILLIN-POT CLAVULANATE Inactive AUGMENTIN 875-125 MG ORAL TABLET Take one tablet twice a day with food AUGMENTIN 875-125 MG ORAL TABLET AMOXICILLIN-POT CLAVULANATE Inactive POLYTRIM 29777-3.1 UNIT/ML-% OPHTHALMIC SOLUTION 1 gtt to affected eye q3h x 7 days POLYTRIM 67859-2.1 UNIT/ML-% OPH THALMIC SOLUTION 385001 POLYMYXIN B-TRIMETHOPRIM Inactive MACROBID 100 MG ORAL CAPSULE 1 cap by mouth twice daily MACROBID 100 MG ORAL CAPSULE 9437094 NITROFURANTOIN MONOHYD MACRO In active Advance Directives [...] Fluarix, Agriflu(>= 18 yo)) Fluzone (>=3 yrs.) [[id number]] Seasonal influenza vaccine, injectable, containing preservative, for > 3 years old (Afluria, FluLaval, Fluzone, Fluvirin, Fluarix, Agriflu(>= 18 yo)) Fluzone (>3 yrs.) [[id number]] Seasonal influenza vaccine, injectable, containing preservative, for > 3 years old (Afluria, FluLaval, Fluzone, Fluvirin, Fluarix, Agriflu(>= 18 yo)) Fluarix (>3 yrs.) [[id number]] Diagnostic Results Date Name Value Unit Range Description Lab Report: CBC, Comp. Metabolic Panel, Lipid Panel, Magnesium - Chemistry sodium, serum 138 mmol/L 668-215 9969/09/02 carbon dioxide, venous blood 28.0 mmol/L 21.0-32 [...] 0.20 mg/dL 0.00-1.00 cholesterol, serum 228 mg/dL 930-562 1298/09/02 triglyceride, serum, fasting 236 mg/dL 30-200 HDL [...] 0.36-3.74 Encounters Code Encounter Date Provider Facility CPT-95861 23916: Ofc Vst-Est Level IV-Moderate MDM or 30-39 minutes 17:48:09 CDT Ashley Yang [facility] CPT-33034 [id number] Vst-Est Level III 17:07:11 CDT Jenny Yang [facility] CPT-95421 [id number] Vst-Est Level III 17:51:44 [employer] [place] [facility] CPT-45397 Level 3 Est. Patient 11:09:39 CDT Viviana Rubio [facility] CPT-45480 [id number] Vst-Est Level IV 09:14:31 CDT Conchis Yang [facility] CPT-14632 [id number] Vst-Est Level III 22:05:50 CDT Jenny Yang [facility] CPT-27672 Level 3 Est. Patient 15:00:02 [employer] Will Cárdenas milka [facility] CPT-19179 Level 2 Est. Patient 13:46:20 CDT Ashley Kt [facility] CPT-77191 Level 2 Est. Patient 13:45:36 CDT Ashley Kt [facility] CPT-31449 Level 3 Est. Patient 15:52:07 CDT Ashley Yoелена [facility] CPT-95577 Level 3 Est. Patient 08:20:37 CDT Ashley Mirелена [facility] CPT-18725 Level 3 Est. Patient 15:06:41 CDT Derrick donaldson MD [facility] CPT-87335 Level 3 Est. Patient 11:13:21 [employer] Derrick donaldson MD [facility] CPT-38205 Level 3 Est. Patient 12:54:25 [employer] Ashley peacock [facility] CPT-10846 Level 3 Est. Patient 23:34:49 [employer] Ashley Meraz [facility] CPT-01847 Level 3 Est. Patient 16:37:09 [employer] Ashley peacock [facility] CPT-85087 Level 3 Est. Patient 11:59:30 [employer] Ashley Meraz [facility] CPT-69072 Level 4 Est. Patient 07:40:13 CDT Wayne delatorre [facility] CPT-76869 Level 4 Est. Patient 08:06:18 CDT Wayne delatorre [facility] CPT-87453 Level 3 Est. Patient 11:14:45 CDT Wayne delatorre [facility] CPT-96341 Level 3 Est. Patient 10:14:55 CDT Wayne delatorre [facility] CPT-22103 Level 4 Est. Patient 15:23:47 CDT Wayne delatorre [facility] CPT-11864 Level 3 Est. Patient 07:50:51 [employer] [facility] CPT-87678 Level 3 Est. Patient 14:47:52 CDT [place] [facility]atorre [facility] CPT-06753 Level 3 Est. Patient 11:28:46 CDT Wayne delatorre PA [facility] CPT-44016 Level 4 Est. Patient 14:48:43 CDT Wayne delatorre [facility] CPT-90380 Level 3 Est. Patient 14:10:18 [employer] Wayne delatorre [facility] CPT-18225 Level 3 Est. Patient 16:44:33 [employer] [facility] CPT-64710 Level 4 Est. Patient 08:22:34 [employer] Wayne delatorre [facility] CPT-31175 Level 4 Est. Patient 07:10:30 CDT [facility] CPT-11512 Level 3 Est. Patient 14:50:20 [employer] Wayne [facility]re [facility] CPT-04112 Level 3 Est. Patient 09:46:08 [employer] Zuleika cha APRN [facility] CPT-76340 Level 4 Est. Patient 07:56:24 [employer] Wayne delatorre [facility] CPT-98528 Level 3 Est. Patient 12:13:53 CDT Ismael Denton [facility] CPT-42241 Level 4 Est. Patient 12:28:51 [employer] Wayne [facility]re [facility] CPT-80774 Level 3 Est. Patient 15:23:42 [employer] Wayne [facility]re [facility] CPT-78050 Level 3 Est. Patient 06:34:33 [employer] [facility] Procedures Code Procedure Name Date Entry Date Standard Desc ription CPT-35426 Allergy Admin 2 16:06:08 CDT CPT-50624 Allergy Admin 2 16:51:42 CDT CPT-55421 Allergy Admin 2 16:26:50 CDT CPT-23905 Allergy Admin 2 17:02:53 CDT CPT-40304 Allergy Admin 2 16:32:35 CDT CPT-53718 Allergy Admin 2 16:26:27 CDT CPT-J3420 Vitamin B12 1000mcg (Cyanocobalamin) 16:32:13 CDT CPT-72804 Abx/Therapy Injection 16:32:13 CDT CPT-89316 Allergy Admin 2 16:32:12 CDT CPT-58196 Allergy Admin 2 16:05:03 CDT CPT-09193 Allergy Admin 2 16:35:15 CDT CPT-01146 Allergy Admin 2 16:20:41 CDT CPT-49687 Allergy Admin 2 11:25:21 CDT CPT-13471 Allergy Admin 2 15:46:12 CDT CPT-WV9205I (4274F) Influenza immunization administe red or previously received 17:51:44 [employer] CPT-18104 Spec Collection and Handling Fee 10:45:[address] CPT-SS8744C (4274F) Influenza immunization administe red or previously received 10:20:17 CDT CPT-49121 Prv Med Est Pt 40-64yrs 16:26:57 CDT CPT-16758 Venipuncture Draw Fee 11:08:31 CDT CPT-07486 Magnesium - LAB USE ONLY 11:08:31 CDT 10/15 CPT-31720 TSH - LAB USE ONLY 11:08:31 CDT CPT-42320 Lipid - LAB USE ONLY 11:08:30 CDT 2 CPT-93319 CMP - LAB USE ONLY 11:08:30 CDT CPT-86768 CBC - LAB USE ONLY 11:08:30 CDT CPT-08274 Spec Collection and Handling Fee 16:14:51 C DT CPT-84921 UA w micro - LAB USE ONLY 16:14:51 CDT 2018 CPT-04381 Prv Med Est Pt 40-64yrs 08:34:49 CDT 10/01 CPT-63697 Sed Rate - LAB USE ONLY 10:50:49 CDT 10/02 CPT-60151 TSH - LAB USE ONLY 10:50:49 CDT CPT-57140 Lipid - LAB USE ONLY 10:50:49 CDT 0 CPT-71731 Magnesium - LAB USE ONLY 10:50:49 CDT 10/02 CPT-84008 CMP - LAB USE ONLY 10:50:49 CDT CPT-53722 CBC - LAB USE ONLY 10:50:49 CDT CPT-29640 Venipuncture Draw Fee 10:50:49 CDT CPT-34340 IV Hydration < or = 1 hr 22:05:50 CDT 04/16 CPT-J7030 Normal Saline 1000 mL 22:05:50 CDT CPT-72786 Abx/Therapy Injection 16:31:51 [employer] CPT-J2950 Phenergan 25 mg 16:31:51 [employer] CPT-29253 Abx/Therapy Injection 16:39:40 CDT CPT-33025 First Vx - Ix admin via ID I M or jet injects without counseling by physician 16:39:39 CDT CPT-35333 Prv Med Est Pt 40-64yrs 16:33:10 CDT 11/10 CPT-JTINJ Asp/Joint Injection 16:13:36 CDT CPT-42226 Allergy Admin 2 16:54:52 CDT CPT-25154 Allergy Admin 2 16:46:15 CDT CPT-53085 Allergy Admin 2 11:29:09 CDT CPT-19240 Allergy Admin 2 17:05:15 CDT CPT-53652 Allergy Admin 2 12:31:51 CDT CPT-18063 Allergy Admin 2 15:40:56 CDT CPT-43132 CBC - LAB USE ONLY 09:49:24 CDT CPT-40843 CMP - LAB USE ONLY 09:49:24 CDT CPT-19192 Lipid - LAB USE ONLY 09:49:24 CDT 8 CPT-74067 Venipuncture Draw Fee 09:49:24 CDT CPT-33954 Allergy Admin 2 10:46:11 CDT CPT-JTINJ Asp/Joint Injection 09:52:58 CDT CPT-68786 Skin tag rem 1-15 13:46:20 CDT CPT-34160 Knee, right, 3V - XRAY USE ONLY 13:07:09 CD T CPT-02412 Allergy Admin 2 11:56:38 CDT CPT-45915 Allergy Admin 2 12:00:55 CDT CPT-54194 Allergy Admin 2 16:42:13 CDT CPT-91081 Allergy Admin 2 16:27:55 CDT CPT-84763 Allergy Admin 2 13:24:26 CDT CPT-20740 Allergy Admin 2 17:17:57 [employer] CPT-75380 Allergy Admin 2 16:23:22 [employer] CPT-34490 Allergy Admin 2 16:26:55 [facility] CPT-79802 Allergy Admin 2 16:32:33 [facility] CPT-71975 Allergy Admin 2 17:43:40 [facility] CPT-27542 Allergy Admin 2 16:26:07 [employer] CPT-14901 Allergy Admin 2 12:31:50 [facility] CPT-70660 Allergy Admin 2 16:40:38 [facility] CPT-56336 Allergy Admin 2 17:07:36 CDT CPT-G0008 Administration of Influenza Virus Vaccine 17:01:01 CDT CPT-23562 First Vx - Ix admin via ID I M or jet injects without counseling by physician 17:01:01 CDT CPT-13476 Allergy Admin 2 12:06:54 CDT CPT-83387 Allergy Admin 2 17:04:46 CDT CPT-95752 Allergy Admin 2 16:34:48 CDT CPT-22727 Allergy Admin 2 17:04:51 CDT CPT-57176 Allergy Admin 2 16:25:14 CDT CPT-49150 Allergy Admin 2 10:52:02 CDT CPT-25909 Allergy Admin 2 11:45:31 CDT CPT-55111 Allergy Admin 2 12:02:20 CDT CPT-21997 Allergy Admin 2 15:47:29 CDT CPT-21705 Allergy Admin 2 13:25:44 CDT CPT-69314 Allergy Admin 2 10:51:13 CDT CPT-75874 CBC - LAB USE ONLY 10:44:39 CDT CPT-56295 CMP - LAB USE ONLY 10:44:39 CDT CPT-24496 Lipid - LAB USE ONLY 10:44:39 CDT 9 CPT-05587 Venipuncture Draw Fee 10:44:38 CDT CPT-26576 Allergy Admin 2 12:25:22 CDT CPT-98251 Allergy Admin 2 12:41:34 CDT CPT-65862 Allergy Admin 2 15:29:46 CDT CPT-18942 Allergy Admin 2 14:46:53 CDT CPT-01543 Allergy Admin 2 14:16:16 CDT CPT-74445 Allergy Admin 2 16:55:26 CDT CPT-59305 Allergy Admin 2 10:12:02 CDT CPT-95019 Allergy Admin 2 14:53:56 CDT CPT-48239 Allergy Admin 2 17:01:54 CDT CPT-13943 Allergy Admin 2 09:36:02 CDT CPT-98809 Allergy Admin 2 16:53:26 [employer] CPT-94326 Allergy Admin 2 16:59:41 [employer] CPT-11044 Allergy Admin 2 16:36:44 [employer] CPT-68124 Allergy Admin 2 16:17:16 [employer] CPT-52524 Allergy Admin 2 17:08:10 [facility] CPT-06168 Allergy Admin 2 12:16:08 [employer] CPT-93140 Allergy Admin 2 16:47:30 [employer] CPT-79204 Allergy Admin 2 16:59:44 [employer] CPT-53793 Allergy Admin 2 12:48:53 [employer] CPT-94092 Allergy Admin 2 10:19:48 [employer] CPT-35592 Allergy Admin 2 12:40:17 [employer] CPT-43001 Abx/Therapy Injection 17:21:59 [employer] CPT-66034 First Vx - Ix admin via ID I M or jet injects without counseling by physician 17:21:57 [employer] CPT-52362 Allergy Admin 2 17:20:12 [employer] CPT-14353 Allergy Admin 2 11:12:50 [employer] CPT-34828 Allergy Admin 2 17:02:39 CDT CPT-80634 BMP - LAB USE ONLY 10:33:02 CDT CPT-50849 CBC - LAB USE ONLY 10:33:02 CDT CPT-75553 Venipuncture Draw Fee 10:33:02 CDT CPT-62003 Abx/Therapy Injection 12:29:08 CDT CPT-96291 Allergy Admin 2 10:39:48 CDT CPT-16796 Allergy Admin 2 10:55:47 CDT CPT-PV Prev. Care Visit 10:10:00 CDT CPT-47743 Allergy Admin 2 11:31:20 CDT CPT-24991 Allergy Admin 2 16:53:45 CDT CPT-68755 Allergy Admin 2 16:36:42 CDT CPT-67425 Allergy Admin 2 16:30:19 CDT CPT-90985 Allergy Admin 2 15:39:35 CDT CPT-82460 Allergy Admin 2 17:51:32 CDT CPT-94380 Allergy Admin 2 11:50:50 CDT CPT-PV Prev. Care Visit 14:09:05 CDT CPT-79786 Allergy Admin 2 13:37:39 CDT CPT-51628 Abx/Therapy Injection 12:17:43 CDT CPT-46989 Venipuncture Draw Fee 10:39:55 CDT CPT-85497 Allergy Admin 2 12:04:53 CDT CPT-34847 Allergy Admin 2 10:04:39 CDT CPT-34247 Allergy Admin 2 12:15:35 CDT CPT-55334 Allergy Admin 2 17:04:36 CDT CPT-11132 Allergy Admin 2 16:25:49 CDT CPT-85637 Allergy Admin 2 17:30:06 CDT CPT-65074 Allergy Admin 2 10:11:48 CDT CPT-97971 Allergy Admin 2 17:06:13 CDT CPT-48412 Abx/Therapy Injection 12:23:07 CDT CPT-J0702 Celestone 12 mg (Betamethasone) 12:23:07 CD T CPT-31831 Venipuncture Draw Fee 10:26:42 CDT CPT-50372 Allergy Admin 2 12:10:01 CDT CPT-35969 Allergy Admin 2 15:13:57 [employer] CPT-87457 Allergy Admin 2 16:55:22 [employer] CPT-97012 Allergy Admin 2 10:13:46 [employer] CPT-20190 Venipuncture Draw Fee 10:06:08 [employer] CPT-97983 Allergy Admin 2 16:15:41 [employer] CPT-88793 Allergy Admin 2 16:40:21 [employer] CPT-82990 Allergy Admin 2 16:31:48 [employer] CPT-82901 Allergy Admin 2 16:38:26 [employer] CPT-97612 Allergy Admin 2 16:40:08 [facility] CPT-35996 Allergy Admin 2 08:34:27 [facility] CPT-98938 Allergy Admin 2 14:27:45 [employer] CPT-88642 Destruction bgn lsn up to 14 09:41:27 [facility] 2 CPT-29244 Allergy Admin 2 17:45:17 [facility] CPT-91459 Allergy Admin 2 14:59:03 [facility] CPT-60538 Allergy Admin 2 12:49:42 CDT CPT-03191 Administration single or combination vac cine inc oral 15:01:57 CDT CPT-12141 Fluzone Quadrivalent Intramuscular Suspe nsion 0.5 ML 15:01:57 CDT CPT-82779 Allergy Admin 2 15:07:08 CDT CPT-59668 Allergy Admin 2 15:39:01 CDT CPT-50347 Allergy Admin 2 17:40:11 CDT CPT-99342 Allergy Admin 2 16:07:08 CDT CPT-25734 Allergy Admin 2 16:08:07 CDT CPT-35021 Venipuncture Draw Fee 09:34:29 CDT CPT-86687 Allergy Admin 2 16:27:43 CDT CPT-18343 Allergy Admin 2 15:53:10 CDT CPT-75963 Allergy Admin 2 15:42:29 CDT CPT-68576 Allergy Admin 2 11:26:14 CDT CPT-02256 Allergy Admin 2 10:36:24 CDT CPT-43407 Allergy Admin 2 16:53:37 CDT CPT-21501 Allergy Admin 2 11:21:44 CDT CPT-67420 Allergy Admin 2 10:50:40 CDT CPT-03655 Allergy Admin 2 11:19:11 CDT CPT-46508 Venipuncture Draw Fee 11:12:25 CDT CPT-40232 Allergy Admin 2 11:14:51 CDT CPT-62408 Allergy Admin 2 16:53:11 CDT CPT-84438 Allergy Admin 2 11:45:56 CDT CPT-74550 Allergy Admin 2 12:51:39 CDT CPT-73779 Allergy Admin 2 12:08:56 CDT CPT-33531 Allergy Admin 2 15:29:45 CDT CPT-41558 Allergy Admin 2 16:34:01 CDT CPT-78373 Allergy Admin 2 16:36:46 CDT CPT-54967 Allergy Admin 2 15:19:16 CDT CPT-54251 Allergy Admin 2 16:13:25 CDT CPT-34934 Allergy Admin 2 17:06:17 CDT CPT-59985 Allergy Admin 2 10:42:10 [employer] CPT-67362 Allergy Admin 2 17:33:16 [employer] CPT-44055 Allergy Admin 2 10:53:30 [employer] CPT-53200 Allergy Admin 2 14:18:24 [employer] CPT-71726 Allergy Admin 2 10:18:29 [employer] CPT-05584 Allergy Admin 2 12:57:40 [employer] CPT-40216 Allergy Admin 2 16:53:33 [employer] CPT-60890 Allergy Admin 2 12:43:00 [employer] CPT-42165 Allergy Admin 2 13:14:09 [employer] CPT-37168 Pneumovax 23 Injection Injectable 25 MCG /0.5ML 09:51:29 [employer] CPT-G0009 Administration of Pneumococcal Vaccine 09:51:29 [employer] CPT-56761 Influenza split virus > age 3 09:51:29 [employer] CPT-G0008 Administration of Influenza Virus Vaccine 02/23 09:51:29 [employer] CPT-00892 Venipuncture Draw Fee 10:31:06 CDT CPT-J0702 Celestone 12 mg (Betamethasone) 11:34:17 CD T CPT-33909 Abx/Therapy Injection 11:34:17 CDT CPT-84100 Chest 2V Frontal and Lat 11:31:47 CDT 07/04 CPT-77103 Venipuncture Draw Fee 11:31:47 CDT CPT-22886 Allergy Admin 2 14:31:05 CDT CPT-26657 EKG Trac and Interp 08:42:32 CDT CPT-35151 Chest 2V Frontal and Lat 08:42:32 CDT 05/28 CPT-66547 Venipuncture Draw Fee 08:39:02 CDT CPT-34584 Allergy Admin 2 16:59:09 CDT CPT-33266 Allergy Admin 2 17:06:11 CDT CPT-51783 Allergy Admin 2 16:04:36 CDT CPT-94746 Venipuncture Draw Fee 16:32:44 [employer] CPT-82020 Venipuncture Draw Fee 10:54:37 [employer] CPT-50623 Allergy Admin 2 14:53:55 [employer] CPT-09430 Allergy Admin 2 10:23:58 [employer] CPT-87318 First Vx Component - Ix admi n via ID IM or jet inj without physician counseling 15:34:26 [employer] CPT-50133 Fluzone (>=3 yrs.) 15:34:26 [employer] CPT-69988 Allergy Admin 2 15:56:02 [employer] CPT-72754 Allergy Admin 2 11:08:58 [employer] CPT-00629 Allergy Admin 2 10:51:36 [employer] CPT-43672 Allergy Admin 2 15:38:19 [employer] CPT-24094 Allergy Admin 2 15:12:46 CDT CPT-30625 Allergy Admin 2 10:28:50 CDT CPT-35206 Allergy Admin 2 16:35:33 CDT CPT-32949 Allergy Admin 2 10:14:18 CDT CPT-00161 Abx/Therapy Injection 09:06:45 CDT CPT-J0702 Celestone 6 mg (Betamethasone) 09:06:45 CDT CPT-33890 Allergy Admin 2 15:51:15 CDT CPT-32556 Allergy Admin 2 10:40:16 CDT CPT-84868 Allergy Admin 2 16:35:55 CDT CPT-55210 Allergy Admin 2 13:12:52 CDT CPT-47051 Allergy Admin 2 16:06:50 CDT CPT-39380 Allergy Admin 2 11:04:24 CDT CPT-18023 Allergy Admin 2 10:44:50 CDT CPT-93745 Allergy Admin 2 15:13:40 CDT CPT-76120 Allergy Admin 2 15:00:03 CDT CPT-67328 Allergy Admin 2 10:37:38 CDT CPT-34313 Venipuncture Draw Fee 09:16:43 [employer] CPT-90839 Allergy Admin 2 11:15:59 [employer] CPT-40742 Postop F/U Visit 10:10:52 [employer] CPT-29058 Allergy Admin 2 13:05:05 [employer] CPT-49622 Postop F/U Visit 19:45:16 [employer] CPT-08630 Allergy Admin 2 11:52:35 [employer] CPT-63988 Allergy Admin 2 10:49:22 [employer] CPT-OV Office Visit 13:55:55 [employer] CPT-55370 Allergy Admin 2 12:54:28 [employer] CPT-OV Office Visit 14:04:48 [employer] CPT-54061 Venipuncture Draw Fee 10:29:14 [employer] CPT-18133 Allergy Admin 2 11:24:43 [employer] CPT-05767 Knee 3V 11:00:12 [employer] CPT-14806 C-Spine Min 4V 11:00:12 [employer] CPT-45398 Allergy Admin 2 13:38:40 [employer] CPT-12048 Venipuncture Draw Fee 11:33:37 CDT CPT-43715 Allergy Admin 2 15:34:37 CDT CPT-22393 Allergy Admin 2 14:11:42 CDT CPT-01793 Administration single or combination vac cine inc oral 12:51:42 CDT CPT-11092 Influenza split virus > age 3 12:51:42 CDT CPT-44795 Allergy Admin 2 11:58:43 CDT CPT-99539 Allergy Admin 2 11:29:32 CDT CPT-70950 Allergy Admin 2 10:55:19 CDT CPT-41806 Allergy Admin 2 12:38:54 CDT CPT-37418 Allergy Admin 2 13:01:47 CDT CPT-10428 Abx/Therapy Injection 12:41:18 CDT CPT-J0702 Celestone 12 mg (Betamethasone) 12:41:18 CD T CPT-44707 Abx/Therapy Injection 16:33:09 CDT CPT-J0702 Celestone 12 mg (Betamethasone) 16:33:09 CD T CPT-40840 Allergy Admin 2 15:49:09 CDT CPT-01114 Allergy Admin 2 12:08:56 CDT CPT-42241 Allergy Admin 2 12:19:10 CDT CPT-86022 Allergy Admin 2 12:46:56 CDT CPT-25175 Allergy Admin 2 15:05:13 CDT CPT-13725 Allergy Admin 2 15:36:20 CDT CPT-86494 Allergy Admin 2 09:58:47 [employer] CPT-01765 Allergy Admin 2 12:18:06 [employer] CPT-51204 Allergy Admin 2 10:01:48 [employer] CPT-10428 Allergy Admin 2 12:17:53 [employer] CPT-60616 Allergy Admin 2 10:06:44 [employer] CPT-42629 Allergy Admin 2 10:13:04 [employer] CPT-36327 Venipuncture Draw Fee 10:09:07 [employer] CPT-50266 Bone Density 12:24:51 [employer] CPT-61790 Allergy Admin 2 11:29:41 [employer] CPT-97655 Allergy Admin 2 16:07:15 [employer] CPT-68216 Breathing Treatment 06:34:33 [employer] CPT-J0702 Celestone 12 mg (Betamethasone) 06:34:33 CS T CPT-19805 Abx/Therapy Injection 06:34:33 [employer] CPT-10967 Breathing Tx 11:07:33 [employer] CPT-72035 Allergy Admin 2 10:02:33 CDT CPT-16421 Allergy Admin 2 10:02:33 CDT CPT-05623 Allergy Admin 2 15:26:19 CDT CPT-06612 Administration single or combination vac cine inc oral 15:41:12 CDT CPT-87737 Influenza split virus > age 3 15:41:12 CDT
--- OUTSIDE RECORDS SUMMARY | 2020-09-15 14:34 | XMS REPORT | Clinical Summary ---
Author Author Admin, Supriya Zuniga Organization [facility] Address Unknown Phone Unavailable Allergies, Adverse Reactions, [...] KNEE PAIN, RIGHT 719.46 Active Supriya Huston A Pain in joint involving lower leg [...] AFTERCARE FOLLOW SURGERY MUSCULOSKEL SYSTEM NEC V58.78 2013/0 2/07 Resolved Wayne Harms PA Aftercare following surgery of the musculoskeletal system, NEC PHARYNGITIS 462 Resolved Wayne Harms PA Acute pharyngitis OTHER SCREENING MAMMOGRAM V76.12 Resolved Wayne Chuy conley PA Other screening mammogram DYSPAREUNIA, MILD [...] pneumoniae [pneumococcus] Knee pain, left 719.46 Resolved Wanye Harms PA Pain in joint involving lower [...] of cervical spine fusion V45.4 Active Wayne Denys arms PA Postsurgical arthrodesis status Onychomycosis -dermatophytosis, [...] Yang APRN Pruritus vulvae Active Ashley Yokum SOCIAL WORK ASSISTANT Screening mammogram V76.12 Resolved Ashley Yokum A PRN Other screening mammogram Sinusitis, acute maxillary 461.0 Inactive 7 Ashley Yokum SOCIAL WORK ASSISTANT Acute maxillary sinusitis Diarrhea, acute 787.91 Resolved Ashley Yokum SOCIAL WORK ASSISTANT Diarrhea Vaginal candidiasis 112.1 Resolved Ashley Yokum A PRN Candidiasis of vulva and vagina Accidental fall E888.9 Resolved Ashley Yokum SOCIAL WORK ASSISTANT Unspecified fall Contusion of left hand, initial encounter 923.20 Resol burak Ashley Yokum SOCIAL WORK ASSISTANT Contusion of hand(s) Contusion of right upper arm, subsequent encounter V58.89 201 09/14/21 Resolved Ashley Yokum SOCIAL WORK ASSISTANT Encounter for other specified a ftercare Ganglion cyst of left wrist 727.41 Active Derrick Younger MD Ganglion of joint Body Mass Index 31.0-31.9 Adult Resolved 2017 Ashley Yokum SOCIAL WORK ASSISTANT Body Mass Index 31.0-31.9, adult Plantar fasciitis 728.71 Active Ashley Yokum SOCIAL WORK ASSISTANT Plantar fascial fibromatosis Bronchitis, acute 466.0 Inactive Ashley Yokum APR N Acute bronchitis Body Mass Index 30.0-30.9 Adult Resolved 2017 Ashley Yokum SOCIAL WORK ASSISTANT Body Mass Index 30.0-30.9, adult Allergic conjunctivitis, bilateral 372.14 Resolved 2 Ashley Yokum SOCIAL WORK ASSISTANT Other chronic allergic conjunctivitis Skin tags; irritated/inflammed 701.9 Resolved 11/10 Ashley Yokum SOCIAL WORK ASSISTANT Unspecified hypertrophic and atrophic co nditions of skin Body Mass Index 31.0-31.9 Adult Refinement 2017 Ashley Yokum SOCIAL WORK ASSISTANT Body Mass Index 31.0-31.9, adult BMI 30-30.9 Refinement Ashley Yokum SOCIAL WORK ASSISTANT Body Mass Index 31.0-31.9, adult BMI 31-31.9 Refinement Ashley Yokum SOCIAL WORK ASSISTANT Body Mass Index 31.0-31.9, adult BMI 32-32.9 Refinement Lois Faith RN Body Mass Index 31.0-31.9, adult BMI 31-31.9 Active Viviana Rubio APRN-Julieta Body Mass Index 31.0-31.9, adult Major depression, recurrent, moderate 296.32 Active Ashley Yokum SOCIAL WORK ASSISTANT Major depressive disorder, recurrent epi sode, moderate degree Obesity Class I (BMI 30-34.9) Active Ashley Y okum SOCIAL WORK ASSISTANT Obesity, unspecified Nausea and vomiting 787.01 Resolved Ashley Yokum A PRN Nausea with vomiting Gastroenteritis acute 558.9 Resolved Ashley Yokum SOCIAL WORK ASSISTANT Other and unspecified noninfectious gastroenteritis and colitis GERD 530.81 Active Ashley Yokum SOCIAL WORK ASSISTANT E sophageal reflux Joint pain 719.40 Resolved Ashley Yokum SOCIAL WORK ASSISTANT Pain in joint, site unspecified Preventive health care, adult V70.0 Inactive /06 Ashley Yokum SOCIAL WORK ASSISTANT Routine general medical examination at a health care facility Blood in urine 599.70 Resolved Ashley Yokum SOCIAL WORK ASSISTANT Hematuria, unspecified Other abnormal findings in urine Resolved Ashley Yokum SOCIAL WORK ASSISTANT Urinary tract infection 599.0 Inactive Ashley Yok um SOCIAL WORK ASSISTANT Urinary tract infection, site not specified Chafing of skin 709.8 Resolved Ashley Yokum SOCIAL WORK ASSISTANT Other specified disorders of skin Preventive care V70.0 Active Supriya Betzaida A Routine general medical examination at a health care facility Gynecological examination, routine V72.3 Inactive 2 Ashley Yokum SOCIAL WORK ASSISTANT Special investigations and e xaminations - Gynecological examination Near syncope 780.2 Resolved Ashley Yokum SOCIAL WORK ASSISTANT Syncope and collapse Lightheadedness 780.4 Resolved Ashley Yokum SOCIAL WORK ASSISTANT Dizziness and giddiness Headache 784.0 Resolved Ashley Yokum SOCIAL WORK ASSISTANT Headache Sore throat 462 Resolved Ashley Yokum SOCIAL WORK ASSISTANT Acute pharyngitis Sinusitis - acute 461.9 Resolved Ashley Yokum APR N Acute sinusitis, unspecified Tired all the time 780.79 Resolved Ashley Yokum AP RN Other malaise and fatigue Fatigue 780.79 Inactive Ashley Yokum SOCIAL WORK ASSISTANT Other malaise and fatigue Preoperative examination V72.84 Active Ashley Yok um SOCIAL WORK ASSISTANT Preoperative examination, unspecified Skin lesion 709.9 Active Ashley Yokum SOCIAL WORK ASSISTANT Unspecified disorder of skin and subcutaneous tissue ABNORMAL WEIGHT GAIN ICD-783.1 Inactive Wayne YANG WHEEZING ICD-786.07 Inactive Lois Deric SOCIAL WORK ASSISTANT 2012 UPPER RESPIRATORY INFECTION, ACUTE ICD-465.9 I nactive Lois Deric SOCIAL WORK ASSISTANT NEED FOR DESENSITIZATION TO ALLERGENS ICD-V07.1 8 Inactive Ashley Yokum SOCIAL WORK ASSISTANT OBESITY ICD-278.00 Inactive Wayne YANG CONTACT DERMATITIS DUE TO POISON ARANZA ICD-692.6 Inactive Lois Leos SOCIAL WORK ASSISTANT NEED PROPHYLACTIC VACCINATION&INOCULATION FLU ICD-V04.81 Inactive Wayne Harms PA GERD ICD-530.81 Inactive Lois Leos SOCIAL WORK ASSISTANT 03/22 LONG-TERM (CURRENT) USE OF OTHER MEDICATIONS ICD-V58.69 Inactive Wayne Harms PA ALLERGIC RHINITIS ICD-477.9 Inactive Lois mendieta SOCIAL WORK ASSISTANT SINUSITIS ICD-473.9 Inactive Lois Leos SOCIAL WORK ASSISTANT 2012 DEGENERATIVE DISC DISEASE, CERVICAL SPINE ICD-722.4 Inactive Wayne Red PA SKIN TAG ICD-701.9 Inactive Wayne Harms PA G E R D ICD-530.81 Inactive Lois Leos SOCIAL WORK ASSISTANT CANDIDIASIS OF SKIN AND NAILS ICD-112.3 Inacti ve Wayne Moon PA AFTERCARE FOLLOW SURGERY MUSCULOSKEL SYSTEM NEC [...] PA Cough ICD-786.2 Inactive Wayne Harms PA Runny nose ICD-472.0 Inactive Ashley Yang SOCIAL WORK ASSISTANT Influenza like illness ICD-487.1 Inactive Wayne Moon PA Acute maxillary sinusitis ICD-461.0 Inactive Ashley Yokum SOCIAL WORK ASSISTANT Preventive health care ICD-V70.0 Inactive Jenny mo Yoеленаum SOCIAL WORK ASSISTANT Well women exam ICD-V72.3 Inactive Ashley Yokum SOCIAL WORK ASSISTANT Sinusitis, chronic ICD-473.9 Inactive Ashley Yo yoni SOCIAL WORK ASSISTANT Screening mammogram ICD-V76.12 Inactive Ashley Yokum SOCIAL WORK ASSISTANT Sinusitis, acute maxillary ICD-461.0 Inactive Ashley Yokum SOCIAL WORK ASSISTANT Diarrhea, acute ICD-787.91 Inactive Ashley Merazu m SOCIAL WORK ASSISTANT Vaginal candidiasis ICD-112.1 Inactive Ashley coppolaum SOCIAL WORK ASSISTANT Accidental fall ICD-E888.9 Inactive Ashley Yoеленаu m SOCIAL WORK ASSISTANT Contusion of left hand, initial encounter ICD-923.20 Inactive Ashley Yokum SOCIAL WORK ASSISTANT Contusion of right upper arm, subsequent encounter ICD-V58.89 Inactive Ashley Yokum SOCIAL WORK ASSISTANT Body Mass Index 31.0-31.9 Adult Inac tive Ashley Yokum SOCIAL WORK ASSISTANT Bronchitis, acute ICD-466.0 Inactive Ashley Yok um SOCIAL WORK ASSISTANT Body Mass Index 30.0-30.9 Adult Inac tive Ashley Yokum SOCIAL WORK ASSISTANT Allergic conjunctivitis, bilateral ICD-372.14 I nactive Ashley Yokum SOCIAL WORK ASSISTANT Skin tags; irritated/inflammed ICD-701.9 Inact rancho Ashley Yokum SOCIAL WORK ASSISTANT Chondromalacia patella, 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 Inacti ve Beatriz Velazquezbarger Nausea and vomiting ICD-787.01 Inactive Ashley Yokum SOCIAL WORK ASSISTANT Gastroenteritis acute ICD-558.9 Inactive Conchis hi Yokum SOCIAL WORK ASSISTANT Joint pain ICD-719.40 Inactive Ashley Yokum APR N Preventive health care, adult ICD-V70.0 Inacti ve Ashley Yokum SOCIAL WORK ASSISTANT Blood in urine ICD-599.70 Inactive Ashley Yokum SOCIAL WORK ASSISTANT Other abnormal findings in urine [place] ctive Ashley Yokum SOCIAL WORK ASSISTANT Urinary tract infection ICD-599.0 Inactive K athi Yokum SOCIAL WORK ASSISTANT Chafing of skin ICD-709.8 Inactive Ashley Yokum SOCIAL WORK ASSISTANT Gynecological examination, routine ICD-V72.3 I nactive Ashley Yokum SOCIAL WORK ASSISTANT Near syncope ICD-780.2 Inactive Ashley Yokum AP RN Lightheadedness ICD-780.4 Inactive Ashley Yokum SOCIAL WORK ASSISTANT Headache ICD-784.0 Inactive Ashley Yokum SOCIAL WORK ASSISTANT 2020 Sore throat ICD-462 Inactive Ashley Yang SOCIAL WORK ASSISTANT 202 02/17/17 Sinusitis - acute ICD-461.9 Inactive Ashley peacock SOCIAL WORK ASSISTANT Tired all the time ICD-780.79 Inactive Ashley gutierrez SOCIAL WORK ASSISTANT Fatigue ICD-780.79 Inactive Ashley Yang SOCIAL WORK ASSISTANT 2020 Medication List Medication Instructions Start Date Stop Date Generic Name NDC Status Provider Patient Instruction ALPRAZOLAM 0.25 MG TABS TAKE 1 TO 2 TABLETS BY MOUTH THREE TIMES DAILY NEEDED ALPRAZOLAM [id number] Active Shanelle Rivera RN Active PHENTERMINE HCL 37.5 MG TABS 1 TAB IN MORING. TAKE 30 MIN BEFORE BREAKFAST OR 2 HRS AFTER BREAKFAST PHENTERMINE HCL 66537177080 Active Ashley Yang APRN Active ADK [id number] UNIT-MCG ORAL CAPSULE 1 daily 2 VITAMINS A D K 80608426395 No Longer Active Ashley Yang APRN Active EQ LORATADINE 10 MG ORAL TABLET TAKE 1 TABLET BY MOUTH ONCE DAILY NEEDED FOR ALLERGIES LORATADINE 15693856914 Active Shanelle Nicole RN Active MUCINEX D 60-600 MG ORAL TABLET EXTENDED RELEASE 12 HO UR 1 po BID PRN Congestion PSEUDOEPHEDRINE-GUAIFENESIN 58140985074 Active Ashley Yang APRN Active ZYRTEC ALLERGY 10 MG ORAL CAPSULE 1qd CETIR IZINE HCL 75671355813 No Longer Active Ashley Yang APRN Active HAIR, SKIN, NAILS VITAMINS take 1 tab by mouth 2x a day HAIR, SKIN, NAILS VITAMINS Active Ashley Merazum SOCIAL WORK ASSISTANT Active CENTRUM SILVER FOR WOMEN OVER 50 1 tab by mouth by day. CENTRUM SILVER FOR WOMEN OVER 50 Active Ashley Merazum SOCIAL WORK ASSISTANT Active VITAMIN D3 1000 UNIT ORAL CAPSULE 1 po qd CH OLECALCIFEROL 64629175792 Active Ashley Yang SOCIAL WORK ASSISTANT Active PREDNISONE 20 MG ORAL TABLET Take 2 tablets by mouth d aily for 2 days then 1 tablet daily for 2 days. PREDNISONE 61677525903 No Longer Active Ashleykaleigh Yang SOCIAL WORK ASSISTANT Active MELOXICAM 15 MG ORAL TABLET TAKE 1 TABLET BY MOUTH IN THE MORNING 2 MELOXICAM 54416234132 Active Shanelle Rivera RN Active SIMVASTATIN 40 MG ORAL TABLET TAKE 1 TABLET BY MOUTH ONCE DA JAVON AT BEDTIME SIMVASTATIN 86976593657 Active LARRY Murillo Active [id number] ORAL TABLET MULT IPLE MINERALS 18354174954 Active Lois Faith RN Active SERTRALINE HCL 100 MG ORAL TABLET Take 1 tablet by mouth once da javon SERTRALINE HCL 12108631107 Active LARRY Murillo A ctive REGLAN 10 MG ORAL TABLET 1 po qid for bowels 3 METOCLOPRAMIDE HCL 58801359476 No Longer Active Ashley Yang ELAINA A ctive B-12 2500 MCG ORAL TABLET 1 daily CYANOCOBAL HUNT 52550874004 No Longer Active Ashley Yang ELAINA Active ESTRADIOL 2 MG TABS Take 1 tablet by mouth once daily ESTRADIOL 59710194932 Active Shanelle Rivera RN Active MACROBID 100 MG ORAL CAPSULE 1 cap by mouth twice daily NITROFURANTOIN MONOHYD MACRO 68283655060 No Longer Active Ashley Yang SOCIAL WORK ASSISTANT Active FISH OIL + D3 1565-2694 MG-UNIT ORAL CAPSULE 1 dailly 4 FISH OIL-CHOLECALCIFEROL 69059083786 Active Ashley Ktum SOCIAL WORK ASSISTANT Acti ve PROAIR HFA 108 (90 BASE) MCG/ACT INHALATION AEROSOL SO LUTION 2 puffs four times a day as needed ALBUTEROL SULFATE 22170488786 No Long er Active Ashleykaleigh Merazum SOCIAL WORK ASSISTANT Active ZITHROMAX Z-SANJANA 250 MG ORAL TABLET Take 2 tablets toda y and 1 each day till gone AZITHROMYCIN 89491575340 No Longer Active Ashley Yokum SOCIAL WORK ASSISTANT Active POLYTRIM 67087-2.1 UNIT/ML-% OPHTHALMIC SOLUTION 1 gtt to affected eye q3h x 7 days POLYMYXIN B-TRIMETHOPRIM 09678970447 No Longer Active Ashley Yokum SOCIAL WORK ASSISTANT Active IBUPROFEN 200 MG ORAL TABLET Take 3 tablets every 6hrs 201 09/17/15 IBUPROFEN 57078912328 No Longer Active Ashley Yokum SOCIAL WORK ASSISTANT Active DIFLUCAN 150 MG ORAL TABLET Take one tablet today and repeat in 72 hours FLUCONAZOLE 09349039514 No Longer Active Derrick cardenas MD Active DIFLUCAN 150 MG ORAL TABLET 1 by mouth for yeast 03/03 FLUCONAZOLE 84553500229 No Longer Active Ashley Yokum SOCIAL WORK ASSISTANT Active AUGMENTIN 875-125 MG ORAL TABLET Take one tablet twice a day with food AMOXICILLIN-POT CLAVULANATE 94553323057 No Longer Act rancho Ashley Yokum SOCIAL WORK ASSISTANT Active CALCIUM 600 + D 600-200 MG-UNIT ORAL TABLET Take one daily CALCIUM CARB-CHOLECALCIFEROL 15914670045 No Longer Active Ashley Yokum SOCIAL WORK ASSISTANT Active FLONASE 50 MCG/ACT NASAL SUSPENSION 1 spray each nostr il twice daily for allergies and runny nose FLUTICASONE PROPIONATE 87650503353 No Longer Active Ashley Yokum SOCIAL WORK ASSISTANT Active CLARITIN-D 12 HOUR 5-120 MG ORAL TABLET EXTENDED RELEA SE 12 HOUR Take one tablet BID as needed for allergies LORATADINE-PSEUDOEP HEDRINE 79536215615 No Longer Active Beth Naff PLANT CLERK Active AMOXICILLIN-POT CLAVULANATE 875-125 MG ORAL TABLET 1 pill by mouth twice daily AMOXICILLIN-POT CLAVULANATE 08831812495 No Longer Act rancho Ashley Yokum SOCIAL WORK ASSISTANT Active AMOXICILLIN 500 MG ORAL CAPSULE Take 1 capsule by mout h three times a day X 10 days AMOXICILLIN 95803875482 No Longer Active Wayne H arms PA Active PROBIOTIC DAILY ORAL CAPSULE Take one daily PROBIO TIC PRODUCT 88176846037 Active Wayne Harms PA Active TYLENOL 325 MG ORAL TABLET Take 2 every 6hrs prn A CETAMINOPHEN 39638105088 Active Wayne Harms PA Active ACETAMINOPHEN 500 MG ORAL TABLET prn RICH TAMINOPHEN 37886148332 No Longer Active Wayne Harms PA Active CLARITIN-D 12 HOUR 5-120 MG ORAL TABLET EXTENDED RELEA SE 12 HOUR Take one tablet bid LORATADINE-PSEUDOEPHEDRINE 88342992858 No Longe r Active Wayne Harms PA Active MOBIC 15 MG ORAL TABLET 1 tablet by mouth daily in am with PPI 2 MELOXICAM 11775484227 No Longer Active Wayne Harms PA Acti ve HYDROCORTISONE 2.5 % EXTERNAL CREAM Apply three times a day to affected area HYDROCORTISONE 99847659328 No Longer Active Wayne Harms PA Active VITAMIN D3 1000 UNIT ORAL TABLET Take two daily CHOLECALCIFEROL 86900679969 No Longer Active Wayne Harms PA Active PROBIOTIC ORAL CAPSULE Take one daily PROBIOTIC PRODUCT 80706315509 No Longer Active Wayne Harms PA Active GREEN TEA SLIM ORAL TABLET Take one daily MISC NATURAL PRODUCTS 06126769752 No Longer Active Wayne Harms PA Active BENZONATATE 200 MG ORAL CAPSULE Take one capsule three times a d ay BENZONATATE 47244270321 No Longer Active Wayne Harms PA Act rancho ZITHROMAX Z-SANJANA 250 MG ORAL TABLET 2 today, then 1 daily for 4 d ays AZITHROMYCIN 55228016400 No Longer Active Wayne Harms PA Ac tive ZITHROMAX 250 MG ORAL TABLET 2 po today, then 1 po q days 2-5 20 31/03/18 AZITHROMYCIN 05516357669 No Longer Active Beth Turner PLANT CLERK Active OMEPRAZOLE 20 MG ORAL CAPSULE DELAYED RELEASE 1 tablet by mo uth daily OMEPRAZOLE 51769743362 Active Supriya Huston RMA Active ZITHROMAX Z-SANJANA 250 MG ORAL TABLET 2x1day,5h6afet 2014 AZITHROMYCIN 98606584840 No Longer Active Wayne Harms PA Active FISH OIL 1200 MG ORAL CAPSULE One daily prn OME GA-3 FATTY ACIDS 92051167907 No Longer Active Wayne Harms PA Active CEPHALEXIN 250 MG ORAL CAPSULE Take one tablet qid 201 05/25/29 CEPHALEXIN 38106661343 No Longer Active Wayne Harms PA Active VITAMIN D3 1000 UNIT ORAL TABLET 1qd CHOLEC ALCIFEROL 51685791692 No Longer Active Wayne Harms PA Active B-12 2000 MCG ORAL TABLET 1qd CYANOCOBALAMI N 13778453066 No Longer Active Wayne Harms PA Active ACIPHEX 20 MG ORAL TABLET DELAYED RELEASE 1qd 10/28 RABEPRAZOLE SODIUM 11314762085 No Longer Active Wayne Harms PA Active HYDROCORTISONE 2.5 % EXTERNAL CREAM apply 3-4 times a day to affected area HYDROCORTISONE 12540785724 No Longer Active Wayne Harms PA Active MUCINEX 600 MG ORAL TABLET EXTENDED RELEASE 12 HOUR 2qd GUAIFENESIN 61010287268 No Longer Active Wayne Harms PA Active TUSSIONEX PENNKINETIC ER 10-8 MG/5ML ORAL SUSPENSION E XTENDED RELEASE 5ml po q12hr PRN Cough HYDROCOD POLST-CHLORPHEN POLST 5 0150435185 No Longer Active Wayne Harms PA Active ZITHROMAX 250 MG ORAL TABLET 2 po today, then 1 po q days 2-5 20 26/06/21 AZITHROMYCIN 43936560663 No Longer Active Wayne Harms PA Ac tive CLARITIN 10 MG ORAL TABLET one tablet daily THEO ATADINE 51576865601 No Longer Active Wayne Harms PA Active FLAGYL 500 MG ORAL TABLET 1 tablet by mouth three times daily 20 28/05/03 METRONIDAZOLE 45193691773 No Longer Active Wayne Harms PA A ctive CHERATUSSIN AC 100-10 MG/5ML ORAL SYRUP one teaspoon qid. 9 GUAIFENESIN-CODEINE 40183159354 No Longer Active Wayne Harms PA Act rancho VITAMIN D 1000 UNIT ORAL TABLET 1qd CHOLECA LCIFEROL 44014728836 No Longer Active Wayne Harms PA Active CYMBALTA 60 MG ORAL CAPSULE DELAYED RELEASE PARTICLES 1 cap by mouth daily DULOXETINE HCL 06929783844 No Longer Active Wayne Harms PA Active AMOXICILLIN 500 MG ORAL CAPSULE 2 caps tid for 10days AMOXICILLIN 57492963699 No Longer Active Wayne Harms PA Active CALCIUM + D 600-200 MG-UNIT TABS Take one by mouth daily CALCIUM CARBONATE-VITAMIN D 94419608251 No Longer Active Wayne Harms PA Active CENTRUM SILVER ADULT 50+ ORAL TABLET 1qd 2013 MULTIPLE VITAMINS-MINERALS 36360720817 No Longer Active Wayne Harms PA Active VENLAFAXINE HCL 75 MG ORAL TABLET 1tid VE NLAFAXINE HCL 93303770832 No Longer Active Wayne Harms PA Active CLARITIN 10 MG ORAL TABLET 1 tablet by mouth daily as needed for allergies LORATADINE 89583003564 No Longer Active Wayne Harms PA Acti ve HYDROCORTISONE 2.5 % EXTERNAL CREAM Apply four times a day to af fected area HYDROCORTISONE 95430388703 No Longer Active Wayne Harms PA Active ZITHROMAX 250 MG ORAL TABLET 2 po today, then 1 po q days 2-5 20 26/02/30 AZITHROMYCIN 46311982806 No Longer Active Wayne Harms PA Ac tive ZITHROMAX 250 MG ORAL TABLET 2 po today, then 1 po q days 2-5 20 27/02/16 AZITHROMYCIN 18576786523 No Longer Active Wayne Harms PA Ac tive CYMBALTA 30 MG ORAL CAPSULE DELAYED RELEASE PARTICLES 3 caps daily DULOXETINE HCL 67949305238 No Longer Active Wayne Harms PA Active CYMBALTA 60 MG ORAL CAPSULE DELAYED RELEASE PARTICLES one tablet daily, takes 30mg. with 60mg. to make 90 mg. DULOXETINE HCL 10607993640 No Longer Active Wayne Harms PA Active CYMBALTA 30 MG ORAL CAPSULE DELAYED RELEASE PARTICLES 1 daily wi th 60mg DULOXETINE HCL 46121699838 No Longer Active Wayne Harms PA Active ZITHROMAX 250 MG ORAL TABLET 2 po today, then 1 po q days 2-5 20 26/12/21 AZITHROMYCIN 17915847828 No Longer Active Ismael YANG Active PREDNISONE 20 MG ORAL TABLET 3tab x 2days,2tab x 2days ,1tab x 2days,1/2tab x 2days PREDNISONE 67959381100 No Longer Active Wayne Vera jarvis YANG Active PREMARIN 0.625 MG ORAL TABLET Take one by mouth daily ESTROGENS CONJUGATED 17135324287 No Longer Active Wayne Harms PA Active ZITHROMAX 250 MG ORAL TABLET 2 po today, then 1 po q days 2-5 20 26/06/19 AZITHROMYCIN 78217433119 No Longer Active Nereyda Isaacs Activ e OMEGA-3 1000 MG ORAL CAPSULE 2qd OMEGA-3 FA TTY ACIDS 90779231311 No Longer Active Wayne Harms PA Active BENADRYL ITCH STOPPING 1-0.1 % EXTERNAL CREAM prn DIPHENHYDRAMINE- ZINC ACETATE 83152975752 No Longer Active Wayne Harms PA Active LOTRISONE 1-0.05 % EXTERNAL CREAM Apply bid CLOTRIMAZOLE-BETAMETHASONE 43898053265 No Longer Active Wayne Harms PA Active ZITHROMAX Z-SANJANA 250 MG ORAL TABLET take as directed 20 26/04/19 AZITHROMYCIN 72620332355 No Longer Active Wayne Harms PA Active NYSTATIN 343548 UNIT/GM EXTERNAL POWDER Apply to affected areas BID NYSTATIN 92851032671 No Longer Active Wayne Harms PA Acti ve BENADRYL 25 MG ORAL CAPSULE prn DIPHENHYDRAMINE HCL 00522523841 Active Wayne Harms PA Active LOTRISONE 1-0.05 % EXTERNAL CREAM apply twice a day 20 25/02/17 CLOTRIMAZOLE-BETAMETHASONE 43623819712 No Longer Active Wayne Harms PA Active HYDROCODONE-ACETAMINOPHEN 5-325 MG ORAL TABLET 1-2 every 4hr s prn pain HYDROCODONE-ACETAMINOPHEN 38839854434 No Longer Activ e Wayne Harms PA Active VICODIN 5-300 MG ORAL TABLET 1-2 tabs every 6hrs as needed for p ain HYDROCODONE-ACETAMINOPHEN 11656732225 No Longer Active Wayne Harms PA Active BENADRYL 25 MG ORAL CAPSULE 1prn DIPHENHYDRA MINE HCL 17583341478 No Longer Active Jillina Frazell SOCIAL WORK ASSISTANT Active ROBITUSSIN DM 100-10 MG/5ML ORAL SYRUP 2 teaspoons four times a day DEXTROMETHORPHAN-GUAIFENESIN 99125815702 No Longer Active Jillina Frazell SOCIAL WORK ASSISTANT Active ACIPHEX 20 MG ORAL TABLET DELAYED RELEASE Take one by mouth daily RABEPRAZOLE SODIUM 89786709502 No Longer Active Jillina Frazell SOCIAL WORK ASSISTANT Active TUMS 500 MG ORAL TABLET CHEWABLE prn SADIQ CIUM CARBONATE ANTACID 81871235183 No Longer Active Jillina Frazell SOCIAL WORK ASSISTANT Active PEPTO-BISMOL 524 MG/30ML ORAL SUSPENSION prn 02/26 BISMUTH SUBSALICYLATE 37755359327 No Longer Active Jillina Frazell SOCIAL WORK ASSISTANT Active BACTRIM DS 800-160 MG ORAL TABLET 1bid SULFAMETHOXAZOLE-TRIMETHOPRIM 52722423188 No Longer Active Beth Naff PLANT CLERK Active GAVISCON EXTRA RELIEF FORMULA CHEW prn A LUM HYDROXIDE-MAG CARBONATE CHEW 71198224001 Active Wayne Harms PA Active DIFLUCAN 150 MG ORAL TABLET 1stat FLUCONAZOL E 41411343962 No Longer Active Wayne Harms PA Active AUGMENTIN 875-125 MG ORAL TABLET 1 tab by mouth twice daily with food AMOXICILLIN-POT CLAVULANATE 25791975990 No Longer Act rancho Wayne Harms PA Active FLUTICASONE PROPIONATE 50 MCG/ACT NASAL SUSPENSION 1 t o 2 sprays each nostril twice a day FLUTICASONE PROPIONATE 81201508935 No Lo nger Active Wayne Harms PA Active HYDROCORTISONE 2.5 % EXTERNAL CREAM apply 2-4 times a day, a s directed, prn HYDROCORTISONE 21008126357 No Longer Active Wayne Harms PA Active ZITHROMAX Z-SANJANA 250 MG ORAL TABLET A ZITHROMYCIN 22757852518 No Longer Active Wayne Harms PA Active SIMVASTATIN 40 MG ORAL TABLET one tablet daily SIMVASTATIN 38944877686 No Longer Active Misty Yoo PLANT CLERK Active LOVASTATIN 40 MG ORAL TABLET Take one by mouth daily 12/11 LOVASTATIN 50538403882 No Longer Active Misty Yoo PLANT CLERK Active PREDNISONE 20 MG ORAL TABLET 2 PO qd x 2d, 1 PO qd x 2d, 1/2 PO qd x 2d PREDNISONE 18606591470 No Longer Active Ismael silva PA Active ZITHROMAX 250 MG ORAL TABLET two tablets now and one daily x 4 d ays AZITHROMYCIN 16219887255 No Longer Active Misty Yoo LPN Active ZOLPIDEM TARTRATE 10MG TABS (ZOLPIDEM TARTRATE) 1 at bedtime as needed Active Supriya Huston RMA Active CLOBETASOL PROPIONATE 0.05 % EXTERNAL CREAM apply as directed CLOBETASOL PROPIONATE 49472201685 No Longer Active Wayne Harms PA A ctive CYMBALTA 30 MG ORAL CAPSULE DELAYED RELEASE PARTICLES takes 90mg qod alt with 60mg DULOXETINE HCL 58908494474 No Longer Active Wayne Harm s PA Active ZITHROMAX 250 MG ORAL TABLET 2 po today, then 1 po q days 2-5 20 12/24/14 AZITHROMYCIN 65283173700 No Longer Active Wayne Harms PA Ac tive TRIAMCINOLONE ACETONIDE 0.1 % EXTERNAL CREAM apply qid TRIAMCINOLONE ACETONIDE 39642219438 No Longer Active Wayne Harms PA Active ALPRAZOLAM 0.25 MG ORAL TABLET 1 tab three times a day 201 02/23/14 ALPRAZOLAM 02769882385 No Longer Active Wayne Harms PA Active ZOLPIDEM TARTRATE 5 MG ORAL TABLET 1 at bedtime as needed ZOLPIDEM TARTRATE 41224580691 No Longer Active Beth Turner PLANT CLERK Active ALPRAZOLAM 0.25 MG ORAL TABLET 1 tab three times a day ALPRAZOLAM 0.25 MG ORAL TABLET 429002 ALPRAZOLAM Inactive TRIAMCINOLONE ACETONIDE 0.1 % EXTERNAL CREAM apply qid TRIAMCINOLONE ACETONIDE 0.1 % EXTERNAL CREAM 2705712 TRIAMCINOLONE A CETONIDE Inactive CYMBALTA 30 MG ORAL CAPSULE DELAYED RELEASE PARTICLES takes 90mg qod alt with 60mg CYMBALTA 30 MG ORAL CAPSULE DELAYED RELEA SE PARTICLES 043158 DULOXETINE HCL Inactive CLOBETASOL PROPIONATE 0.05 % EXTERNAL CREAM apply as directed CLOBETASOL PROPIONATE 0.05 % EXTERNAL CREAM 726956 CLOBETASOL PROPI KELVIN Inactive LOVASTATIN 40 MG ORAL TABLET Take one by mouth daily 2 LOVASTATIN 40 MG ORAL TABLET 708241 LOVASTATIN Inactive ZITHROMAX Z-SANJANA 250 MG ORAL TABLET 03/03 ZITHROMAX Z-SANJANA 250 MG ORAL TABLET 450246 AZITHROMYCIN Inactive HYDROCORTISONE 2.5 % EXTERNAL CREAM apply 2-4 times a day, a s directed, prn HYDROCORTISONE 2.5 % EXTERNAL CREAM 804758 HYDRO CORTISONE Inactive FLUTICASONE PROPIONATE 50 MCG/ACT NASAL SUSPENSION 1 t o 2 sprays each nostril twice a day FLUTICASONE PROPIONA TE 50 MCG/ACT NASAL SUSPENSION 4415472 FLUTICASONE PROPIONATE Inactive AUGMENTIN 875-125 MG ORAL TABLET 1 tab by mouth twice daily with food AUGMENTIN 875-125 MG ORAL TABLET AMOXICIL BLOSSOM-POT CLAVULANATE Inactive DIFLUCAN 150 MG ORAL TABLET 1stat DIFLUCAN 150 MG ORAL TABLET 687443 FLUCONAZOLE Inactive PEPTO-BISMOL 524 MG/30ML ORAL SUSPENSION prn PEPTO-BISMOL 524 MG/30ML ORAL SUSPENSION BISMUTH SUBSALICYLATE Inactive TUMS 500 MG ORAL TABLET CHEWABLE prn TUMS 500 MG ORAL TABLET CHEWABLE 759792 CALCIUM CARBONATE ANTACID Inactive ACIPHEX 20 MG ORAL TABLET DELAYED RELEASE Take one by mouth daily ACIPHEX 20 MG ORAL TABLET DELAYED RELEASE 548399 RABEPRAZOLE SODIUM Inactive ROBITUSSIN DM 100-10 MG/5ML [...] pain HYDROCODONE-ACETAMINOPHEN 5-325 MG ORAL TABLET 8 60358 HYDROCODONE-ACETAMINOPHEN Inactive LOTRISONE 1-0.05 % EXTERNAL CREAM apply twice a day 20 25/02/17 LOTRISONE 1- 0.05 % EXTERNAL CREAM CLOTRIMAZOLE-BETAMETHASONE Inactive NYSTATIN 477293 UNIT/GM EXTERNAL POWDER Apply to affected areas BID NYSTATIN 490274 UNIT/GM EXTERNAL POWDER 555698 NYSTATIN Inactive ZITHROMAX Z-SANJANA 250 MG ORAL TABLET take as directed 20 26/04/19 ZITHROMAX Z-SANJANA 250 MG ORAL TABLET 230833 AZITHROMYCIN Inact [place] LOTRISONE 1-0.05 % EXTERNAL CREAM Apply bid LOTRISONE 1- 0.05 % EXTERNAL CREAM CLOTRIMAZOLE-BETAMETHASONE Inactive BENADRYL ITCH STOPPING 1-0.1 % EXTERNAL CREAM prn BENADRYL ITCH STOPPING 1-0.1 % EXTERNAL CREAM DIPHENHYDRAMINE-ZINC ACETATE Inactive OMEGA-3 1000 MG ORAL CAPSULE 2qd OMEGA-3 1000 MG ORAL CAPSULE 529988 OMEGA-3 FATTY ACIDS Inactive ZITHROMAX 250 MG ORAL TABLET 2 po today, then 1 po q days 2-5 20 26/06/19 ZITHROMAX 250 MG ORAL TABLET 968811 AZITHROMYCIN [place] ctive PREMARIN 0.625 MG ORAL TABLET Take one by mouth daily PREMARIN 0.625 MG ORAL TABLET ESTROGENS CONJUGATED Inactive PREDNISONE 20 MG ORAL TABLET 3tab x 2days,2tab x 2days ,1tab x 2days,1/2tab x 2days PREDNISONE 20 MG ORAL TABLET 713029 PREDNIS ONE Inactive CYMBALTA 30 MG ORAL CAPSULE DELAYED RELEASE PARTICLES 1 daily wi th 60mg CYMBALTA 30 MG ORAL CAPSULE DELAYED RELEASE PARTICLES 220281 DULOXETINE HCL Inactive CYMBALTA 60 MG ORAL CAPSULE DELAYED RELEASE PARTICLES one tablet daily, takes 30mg. with 60mg. to make 90 mg. CYMBALTA 60 MG ORAL CAPSULE DELAYED RELEASE PARTICLES 537871 DULOXETINE HCL Inacti ve CYMBALTA 30 MG ORAL CAPSULE DELAYED RELEASE PARTICLES 3 caps daily CYMBALTA 30 MG ORAL CAPSULE DELAYED RELEASE PARTICLES 181221 DULOXE ROSANNE HCL Inactive HYDROCORTISONE 2.5 % EXTERNAL CREAM Apply four times a day to af fected area HYDROCORTISONE 2.5 % EXTERNAL CREAM 561999 HYDROCORTISO NE Inactive CLARITIN 10 MG ORAL TABLET 1 tablet by mouth daily as needed for allergies CLARITIN 10 MG ORAL TABLET 615763 LORATADINE Inact [place] VENLAFAXINE HCL 75 MG ORAL TABLET 1tid VENLAFAXINE HCL 75 MG ORAL TABLET 101333 VENLAFAXINE HCL Inactive CENTRUM SILVER ADULT 50+ ORAL TABLET 1qd 2013 CENTRUM SILVER ADULT 50+ ORAL TABLET MULTIPLE VITAMINS-MINERALS Inactive CALCIUM + D 600-200 MG-UNIT TABS Take one by mouth daily CALCIUM + D 600-200 MG-UNIT TABS CALCIUM CARBONATE-VITAMIN D Inactive AMOXICILLIN 500 MG ORAL CAPSULE 2 caps tid for 10days AMOXICILLIN 500 MG ORAL CAPSULE 681363 AMOXICILLIN Inactive CYMBALTA 60 MG ORAL CAPSULE DELAYED RELEASE PARTICLES 1 cap by mouth daily CYMBALTA 60 MG ORAL CAPSULE DELAYED RELE ASE PARTICLES 783350 DULOXETINE HCL Inactive VITAMIN D 1000 UNIT ORAL TABLET 1qd 4 VITAMIN D 1000 UNIT ORAL TABLET CHOLECALCIFEROL Inactive CHERATUSSIN AC 100-10 MG/5ML ORAL SYRUP one teaspoon qid. 9 CHERATUSSIN AC 100-10 MG/5ML ORAL SYRUP GUAIFENESIN-CODEINE Inactive FLAGYL 500 MG ORAL TABLET 1 tablet by mouth three times daily 20 28/05/03 FLAGYL 500 MG ORAL TABLET 208298 METRONIDAZOLE Inacti ve CLARITIN 10 MG ORAL TABLET one tablet daily CLARITIN 10 MG ORAL TABLET 521838 LORATADINE Inactive TUSSIONEX PENNKINETIC ER 10-8 MG/5ML [...] affected area HYDROCORTISONE 2.5 % EXTERNAL CREAM 302002 HYDRO CORTISONE Inactive ACIPHEX 20 MG ORAL TABLET DELAYED RELEASE 1qd ACIPHEX 20 MG ORAL TABLET DELAYED RELEASE 382735 RABEPRAZOLE SODIUM Inactive B-12 2000 MCG ORAL TABLET 1qd B-12 2000 MCG ORAL TABLET CYANOCOBALAMIN Inactive VITAMIN D3 1000 UNIT ORAL TABLET 1qd VITAMIN D3 1000 UNIT ORAL TABLET CHOLECALCIFEROL Inactive CEPHALEXIN 250 MG ORAL CAPSULE Take one tablet qid 201 05/25/29 CEPHALEXIN 250 MG ORAL CAPSULE 842076 CEPHALEXIN Inactive FISH OIL 1200 MG ORAL CAPSULE One daily prn FISH OIL 1200 MG ORAL CAPSULE OMEGA-3 FATTY ACIDS Inactive ZITHROMAX Z-SANJANA 250 MG ORAL TABLET 2x1day,8t0cppd 2014 ZITHROMAX Z-SANJANA 250 MG ORAL TABLET 659796 AZITHROMYCIN Inact [place] BENZONATATE 200 MG ORAL CAPSULE Take one capsule three times a d ay BENZONATATE 200 MG ORAL CAPSULE 350855 BENZONATATE Inactive GREEN TEA SLIM ORAL TABLET Take one daily GREEN TEA SLIM ORAL TABLET MISC NATURAL PRODUCTS Inactive PROBIOTIC ORAL CAPSULE Take one daily PROBIOTIC ORAL CAPSULE 9058696 PROBIOTIC PRODUCT Inactive VITAMIN D3 1000 UNIT ORAL TABLET Take two daily 05/05 VITAMIN D3 1000 UNIT ORAL TABLET CHOLECALCIFEROL Inactive HYDROCORTISONE 2.5 % EXTERNAL CREAM Apply three times a day to affected area HYDROCORTISONE 2.5 % EXTERNAL CREAM 990919 HYDRO CORTISONE Inactive MOBIC 15 MG ORAL TABLET 1 tablet by mouth daily in am with PPI 2 MOBIC 15 MG ORAL TABLET 637677 MELOXICAM Inactive CLARITIN-D 12 HOUR 5-120 MG ORAL TABLET EXTENDED RELEA SE 12 HOUR Take one tablet bid CLARITIN-D 12 HOUR 5 -120 MG ORAL TABLET EXTENDED RELEASE 12 HOUR LORATADINE-PSEUDOEPHEDRINE Inactive ACETAMINOPHEN 500 MG ORAL TABLET prn ACETAMINOPHEN 500 MG ORAL TABLET 214479 ACETAMINOPHEN Inactive CLARITIN-D 12 HOUR 5-120 MG [...] yeast 03/03 DIFLUCAN 150 MG ORAL TABLET 432837 FLUCONAZOLE Inactive DIFLUCAN 150 MG ORAL TABLET Take one tablet today and repeat in 72 hours DIFLUCAN 150 MG ORAL TABLET 234084 FLUCONAZOLE Inactive IBUPROFEN 200 MG ORAL TABLET Take 3 tablets every 6hrs IBUPROFEN 200 MG ORAL TABLET 105292 IBUPROFEN Inactive ZITHROMAX Z-SANJANA 250 MG ORAL TABLET Take 2 tablets toda y and 1 each day till gone ZITHROMAX Z-SANJANA 250 MG ORAL TABLET 206151 A ZITHROMYCIN Inactive PROAIR HFA 108 (90 [...] bowels 3 REGLAN 10 MG ORAL TABLET 613144 METOCLOPRAMIDE HCL Inactive PREDNISONE 20 MG ORAL TABLET Take 2 tablets by mouth d aily for 2 days then 1 tablet daily for 2 days. PREDNISONE 20 MG ORAL T ABLET 534654 PREDNISONE Inactive ZYRTEC ALLERGY 10 MG ORAL CAPSULE 1qd ZYRTEC ALLERGY 10 MG ORAL CAPSULE CETIRIZINE HCL Inactive ADK 4432-1159-014 UNIT-MCG ORAL CAPSULE 1 daily 2 ADK 6931-1748-305 UNIT-MCG ORAL CAPSULE VITAMINS A D K Inac tive ZITHROMAX 250 MG ORAL TABLET 2 po today, then 1 po q days 2-5 20 12/24/14 ZITHROMAX 250 MG ORAL TABLET 139529 AZITHROMYCIN [place] ctive ZITHROMAX 250 MG ORAL TABLET two tablets now and one daily x 4 d ays ZITHROMAX 250 MG ORAL TABLET 069807 AZITHROMYCIN [place] ctive PREDNISONE 20 MG ORAL TABLET 2 PO qd x 2d, 1 PO qd x 2d, 1/2 PO qd x 2d PREDNISONE 20 MG ORAL TABLET 467388 PREDNISONE Inactive SIMVASTATIN 40 MG ORAL TABLET one tablet daily SIMVASTATIN 40 MG ORAL TABLET 441718 SIMVASTATIN Inactive BACTRIM DS 800-160 MG ORAL TABLET 1bid BACTRIM DS 800-160 MG ORAL TABLET 225983 SULFAMETHOXAZOLE-TRIMETHOPRIM Inactive ZITHROMAX 250 MG ORAL TABLET 2 po today, then 1 po q days 2-5 20 26/12/21 ZITHROMAX 250 MG ORAL TABLET 371720 AZITHROMYCIN [place] ctive ZITHROMAX 250 MG ORAL TABLET 2 po today, then 1 po q days 2-5 20 27/02/16 ZITHROMAX 250 MG ORAL TABLET 896213 AZITHROMYCIN [place] ct[place] ZITHROMAX 250 MG ORAL TABLET 2 po today, then 1 po q days 2-5 20 26/02/30 ZITHROMAX 250 MG ORAL TABLET 013344 AZITHROMYCIN [place] ctive ZITHROMAX 250 MG ORAL TABLET 2 po today, then 1 po q days 2-5 20 26/06/21 ZITHROMAX 250 MG ORAL TABLET 818898 AZITHROMYCIN [place] ct[place] ZITHROMAX 250 MG ORAL TABLET 2 po today, then 1 po q days 2-5 20 31/03/18 ZITHROMAX 250 MG ORAL TABLET 640455 AZITHROMYCIN [place] ctive ZITHROMAX Z-SANJANA 250 MG ORAL TABLET 2 today, then 1 daily for 4 d ays ZITHROMAX Z-SANJANA 250 MG ORAL TABLET 247952 AZITHROMYCIN Inactive AMOXICILLIN 500 MG ORAL CAPSULE Take 1 capsule by mout h three times a day X 10 days AMOXICILLIN 500 MG ORAL CAPSULE 383657 AMOX ICILLIN Inactive AMOXICILLIN-POT CLAVULANATE 875-125 MG ORAL TABLET 1 pill by mouth twice daily AMOXICILLIN-POT CLAVULANATE 875-125 MG ORAL TABL ET 274872 AMOXICILLIN-POT CLAVULANATE Inactive AUGMENTIN 875-125 MG ORAL TABLET Take one tablet twice a day with food AUGMENTIN 875-125 MG ORAL TABLET AMOXICILLIN-POT CLAVULANATE Inactive POLYTRIM 18398-7.1 UNIT/ML-% OPHTHALMIC SOLUTION 1 gtt to affected eye q3h x 7 days POLYTRIM 23544-5.1 UNIT/ML-% OPH THALMIC SOLUTION 015659 POLYMYXIN B-TRIMETHOPRIM Inactive MACROBID 100 MG ORAL CAPSULE 1 cap by mouth twice daily MACROBID 100 MG ORAL CAPSULE 6017612 NITROFURANTOIN MONOHYD MACRO In active Advance Directives [...] Fluarix, Agriflu(>= 18 yo)) Fluzone (>=3 yrs.) [[id number]] Seasonal influenza vaccine, injectable, containing preservative, for > 3 years old (Afluria, FluLaval, Fluzone, Fluvirin, Fluarix, Agriflu(>= 18 yo)) Fluzone (>3 yrs.) [[id number]] Seasonal influenza vaccine, injectable, containing preservative, for > 3 years old (Afluria, FluLaval, Fluzone, Fluvirin, Fluarix, Agriflu(>= 18 yo)) Fluarix (>3 yrs.) [[id number]] Diagnostic Results Date Name Value Unit Range Description Lab Report: CBC, Comp. Metabolic Panel, Lipid Panel, Magnesium - Chemistry sodium, serum 138 mmol/L 335-892 1110/09/02 carbon dioxide, venous blood 28.0 mmol/L 21.0-32 [...] 0.20 mg/dL 0.00-1.00 cholesterol, serum 228 mg/dL [phone]/09/02 triglyceride, serum, fasting 236 mg/dL 30-200 HDL [...] 0.36-3.74 Encounters Code Encounter Date Provider Facility CPT-35856 07562: Ofc Vst-Est Level IV-Moderate MDM or 30-39 minutes 17:48:09 CDT Ashley Yang [facility] CPT-89050 14126-Raf Vst-Est Level III 17:07:11 CDT Jenny Yang [facility] CPT-48220 94258-Cos Vst-Est Level III 17:51:44 FISH PROTECTOR [facility] CPT-50353 Level 3 Est. Patient 11:09:39 CDT Viviana Rubio [facility] CPT-53743 56115-Qdz Vst-Est Level IV 09:14:31 CDT Conchis Yang [facility] CPT-96380 50474-Xnm Vst-Est Level III 22:05:50 CDT Jenny Yang [facility] CPT-94704 Level 3 Est. Patient 15:00:02 FISH PROTECTOR Will Avi jarquin [facility] CPT-68286 Level 2 Est. Patient 13:46:20 CDT Ashley Meraz [facility] CPT-03920 Level 2 Est. Patient 13:45:36 CDT Ashley Meraz [facility] CPT-28558 Level 3 Est. Patient 15:52:07 CDT Ashley Meraz [facility] CPT-22424 Level 3 Est. Patient 08:20:37 CDT Ashley Meraz [facility] CPT-39004 Level 3 Est. Patient 15:06:41 CDT Derrick donaldson MD [facility] CPT-29267 Level 3 Est. Patient 11:13:21 FISH PROTECTOR Derrick donaldson MD [facility] CPT-62454 Level 3 Est. Patient 12:54:25 FISH PROTECTOR Ashley Meraz [facility] CPT-03032 Level 3 Est. Patient 23:34:49 FISH PROTECTOR Ashley Meraz [facility] CPT-26468 Level 3 Est. Patient 16:37:09 FISH PROTECTOR Ashley Meraz [facility] CPT-69179 Level 3 Est. Patient 11:59:30 FISH PROTECTOR Ashley Meraz [facility] CPT-31311 Level 4 Est. Patient 07:40:13 CDT Wayne delatorre [facility] CPT-55573 Level 4 Est. Patient 08:06:18 CDT [facility]PT-27768 Level 3 Est. Patient 11:14:45 CDT Wayne delatorre PA [facility] CPT-51560 Level 3 Est. Patient 10:14:55 CDT Wayne delatorre [facility] CPT-59151 Level 4 Est. Patient 15:23:47 CDT Wayne delatorre [facility] CPT-72203 Level 3 Est. Patient 07:50:51 FISH PROTECTOR [facility] CPT-30846 Level 3 Est. Patient 14:47:52 CDT Wayne delatorre [facility] CPT-67914 Level 3 Est. Patient 11:28:46 CDT Wayne delatorre [facility] CPT-27704 Level 4 Est. Patient 14:48:43 CDT [facility]PT-53884 Level 3 Est. Patient 14:10:18 FISH PROTECTOR Wayne delatorre [facility] CPT-29925 Level 3 Est. Patient 16:44:33 FISH PROTECTOR [facility] CPT-88974 Level 4 Est. Patient 08:22:34 FISH PROTECTOR Wayne delatorre [facility] CPT-62238 Level 4 Est. Patient 07:10:30 CDT [facility] CPT-30635 Level 3 Est. Patient 14:50:20 FISH PROTECTOR Wayne delatorre [facility] CPT-28128 Level 3 Est. Patient 09:46:08 FISH PROTECTOR Zuleika cha APRN [facility] CPT-94974 Level 4 Est. Patient 07:56:24 FISH PROTECTOR Wayne delatorre [facility] CPT-38898 Level 3 Est. Patient 12:13:53 CDT Ismael Denton [facility] CPT-26795 Level 4 Est. Patient 12:28:51 FISH PROTECTOR Wayne delatorre [facility] CPT-85127 Level 3 Est. Patient 15:23:42 FISH PROTECTOR Wayne delatorre [facility] CPT-50351 Level 3 Est. Patient 06:34:33 FISH PROTECTOR Wayne delatorre [facility] Procedures Code Procedure Name Date Entry Date Standard Desc ription CPT-42236 Allergy Admin 2 16:06:08 CDT CPT-47353 Allergy Admin 2 16:51:42 CDT CPT-10131 Allergy Admin 2 16:26:50 CDT CPT-94627 Allergy Admin 2 17:02:53 CDT CPT-45845 Allergy Admin 2 16:32:35 CDT CPT-15847 Allergy Admin 2 16:26:27 CDT CPT-J3420 Vitamin B12 1000mcg (Cyanocobalamin) 16:32:13 CDT CPT-59945 Abx/Therapy Injection 16:32:13 CDT CPT-21635 Allergy Admin 2 16:32:12 CDT CPT-71796 Allergy Admin 2 16:05:03 CDT CPT-01216 Allergy Admin 2 16:35:15 CDT CPT-73580 Allergy Admin 2 16:20:41 CDT CPT-23508 Allergy Admin 2 11:25:21 CDT CPT-18236 Allergy Admin 2 15:46:12 CDT CPT-MB4946B (4274F) Influenza immunization administe red or previously received 17:51:44 FISH PROTECTOR CPT-64504 Spec Collection and Handling Fee 10:45:[address] CPT-QI9351B (4274F) Influenza immunization administe red or previously received 10:20:17 CDT CPT-43369 Prv Med Est Pt 40-64yrs 16:26:57 CDT CPT-60380 Venipuncture Draw Fee 11:08:31 CDT CPT-58554 Magnesium - LAB USE ONLY 11:08:31 CDT 10/15 CPT-54812 TSH - LAB USE ONLY 11:08:31 CDT CPT-75799 Lipid - LAB USE ONLY 11:08:30 CDT 2 CPT-06578 CMP - LAB USE ONLY 11:08:30 CDT CPT-05194 CBC - LAB USE ONLY 11:08:30 CDT CPT-13502 Spec Collection and Handling Fee 16:14:51 C DT CPT-37865 UA w micro - LAB USE ONLY 16:14:51 CDT 2018 CPT-06446 Prv Med Est Pt 40-64yrs 08:34:49 CDT 10/01 CPT-04730 Sed Rate - LAB USE ONLY 10:50:49 CDT 10/02 CPT-31080 TSH - LAB USE ONLY 10:50:49 CDT CPT-13427 Lipid - LAB USE ONLY 10:50:49 CDT 0 CPT-51964 Magnesium - LAB USE ONLY 10:50:49 CDT 10/02 CPT-58184 CMP - LAB USE ONLY 10:50:49 CDT CPT-41393 CBC - LAB USE ONLY 10:50:49 CDT CPT-20751 Venipuncture Draw Fee 10:50:49 CDT CPT-65244 IV Hydration < or = 1 hr 22:05:50 CDT 04/16 CPT-J7030 Normal Saline 1000 mL 22:05:50 CDT CPT-79902 Abx/Therapy Injection 16:31:51 FISH PROTECTOR CPT-J2950 Phenergan 25 mg 16:31:51 FISH PROTECTOR CPT-30271 Abx/Therapy Injection 16:39:40 CDT CPT-87249 First Vx - Ix admin via ID I M or jet injects without counseling by physician 16:39:39 CDT CPT-51706 Prv Med Est Pt 40-64yrs 16:33:10 CDT 11/10 CPT-JTINJ Asp/Joint Injection 16:13:36 CDT CPT-78751 Allergy Admin 2 16:54:52 CDT CPT-90559 Allergy Admin 2 16:46:15 CDT CPT-84165 Allergy Admin 2 11:29:09 CDT CPT-70403 Allergy Admin 2 17:05:15 CDT CPT-24258 Allergy Admin 2 12:31:51 CDT CPT-15173 Allergy Admin 2 15:40:56 CDT CPT-28945 CBC - LAB USE ONLY 09:49:24 CDT CPT-09628 CMP - LAB USE ONLY 09:49:24 CDT CPT-26976 Lipid - LAB USE ONLY 09:49:24 CDT 8 CPT-78811 Venipuncture Draw Fee 09:49:24 CDT CPT-05866 Allergy Admin 2 10:46:11 CDT CPT-JTINJ Asp/Joint Injection 09:52:58 CDT CPT-65566 Skin tag rem 1-15 13:46:20 CDT CPT-26070 Knee, right, 3V - XRAY USE ONLY 13:07:09 CD T CPT-65063 Allergy Admin 2 11:56:38 CDT CPT-03797 Allergy Admin 2 12:00:55 CDT CPT-92471 Allergy Admin 2 16:42:13 CDT CPT-15391 Allergy Admin 2 16:27:55 CDT CPT-95462 Allergy Admin 2 13:24:26 CDT CPT-52818 Allergy Admin 2 17:17:57 FISH PROTECTOR CPT-12298 Allergy Admin 2 16:23:22 FISH PROTECTOR CPT-16813 Allergy Admin 2 16:26:55 FISH PROTECTOR CPT-56452 Allergy Admin 2 16:32:33 FISH PROTECTOR CPT-70225 Allergy Admin 2 17:43:40 FISH PROTECTOR CPT-21572 Allergy Admin 2 16:26:07 FISH PROTECTOR CPT-55055 Allergy Admin 2 12:31:50 FISH PROTECTOR CPT-62815 Allergy Admin 2 16:40:38 FISH PROTECTOR CPT-34047 Allergy Admin 2 17:07:36 CDT CPT-G0008 Administration of Influenza Virus Vaccine 17:01:01 CDT CPT-52970 First Vx - Ix admin via ID I M or jet injects without counseling by physician 17:01:01 CDT CPT-15010 Allergy Admin 2 12:06:54 CDT CPT-21939 Allergy Admin 2 17:04:46 CDT CPT-77167 Allergy Admin 2 16:34:48 CDT CPT-75442 Allergy Admin 2 17:04:51 CDT CPT-19356 Allergy Admin 2 16:25:14 CDT CPT-79564 Allergy Admin 2 10:52:02 CDT CPT-56703 Allergy Admin 2 11:45:31 CDT CPT-71238 Allergy Admin 2 12:02:20 CDT CPT-73145 Allergy Admin 2 15:47:29 CDT CPT-90248 Allergy Admin 2 13:25:44 CDT CPT-73587 Allergy Admin 2 10:51:13 CDT CPT-68624 CBC - LAB USE ONLY 10:44:39 CDT CPT-85556 CMP - LAB USE ONLY 10:44:39 CDT CPT-31068 Lipid - LAB USE ONLY 10:44:39 CDT 9 CPT-25115 Venipuncture Draw Fee 10:44:38 CDT CPT-72416 Allergy Admin 2 12:25:22 CDT CPT-43494 Allergy Admin 2 12:41:34 CDT CPT-89612 Allergy Admin 2 15:29:46 CDT CPT-58844 Allergy Admin 2 14:46:53 CDT CPT-87645 Allergy Admin 2 14:16:16 CDT CPT-75530 Allergy Admin 2 16:55:26 CDT CPT-38438 Allergy Admin 2 10:12:02 CDT CPT-50801 Allergy Admin 2 14:53:56 CDT CPT-24935 Allergy Admin 2 17:01:54 CDT CPT-60682 Allergy Admin 2 09:36:02 CDT CPT-10448 Allergy Admin 2 16:53:26 FISH PROTECTOR CPT-97743 Allergy Admin 2 16:59:41 [facility] CPT-97543 Allergy Admin 2 16:36:44 [facility] CPT-54578 Allergy Admin 2 16:17:16 [facility] CPT-68512 Allergy Admin 2 17:08:10 [facility] CPT-37464 Allergy Admin 2 12:16:08 FISH PROTECTOR CPT-92223 Allergy Admin 2 16:47:30 FISH PROTECTOR CPT-52842 Allergy Admin 2 16:59:44 FISH PROTECTOR CPT-13871 Allergy Admin 2 12:48:53 FISH PROTECTOR CPT-59184 Allergy Admin 2 10:19:48 FISH PROTECTOR CPT-67761 Allergy Admin 2 12:40:17 FISH PROTECTOR CPT-90504 Abx/Therapy Injection 17:21:59 FISH PROTECTOR CPT-33630 First Vx - Ix admin via ID I M or jet injects without counseling by physician 17:21:57 FISH PROTECTOR CPT-79944 Allergy Admin 2 17:20:12 FISH PROTECTOR CPT-60880 Allergy Admin 2 11:12:50 FISH PROTECTOR CPT-27987 Allergy Admin 2 17:02:39 CDT CPT-04561 BMP - LAB USE ONLY 10:33:02 CDT CPT-40283 CBC - LAB USE ONLY 10:33:02 CDT CPT-30373 Venipuncture Draw Fee 10:33:02 CDT CPT-38140 Abx/Therapy Injection 12:29:08 CDT CPT-77391 Allergy Admin 2 10:39:48 CDT CPT-88381 Allergy Admin 2 10:55:47 CDT CPT-PV Prev. Care Visit 10:10:00 CDT CPT-67301 Allergy Admin 2 11:31:20 CDT CPT-28467 Allergy Admin 2 16:53:45 CDT CPT-64594 Allergy Admin 2 16:36:42 CDT CPT-63977 Allergy Admin 2 16:30:19 CDT CPT-91451 Allergy Admin 2 15:39:35 CDT CPT-50332 Allergy Admin 2 17:51:32 CDT CPT-90272 Allergy Admin 2 11:50:50 CDT CPT-PV Prev. Care Visit 14:09:05 CDT CPT-18396 Allergy Admin 2 13:37:39 CDT CPT-30031 Abx/Therapy Injection 12:17:43 CDT CPT-42168 Venipuncture Draw Fee 10:39:55 CDT CPT-39863 Allergy Admin 2 12:04:53 CDT CPT-84899 Allergy Admin 2 10:04:39 CDT CPT-51206 Allergy Admin 2 12:15:35 CDT CPT-77333 Allergy Admin 2 17:04:36 CDT CPT-97596 Allergy Admin 2 16:25:49 CDT CPT-00952 Allergy Admin 2 17:30:06 CDT CPT-22139 Allergy Admin 2 10:11:48 CDT CPT-78413 Allergy Admin 2 17:06:13 CDT CPT-54230 Abx/Therapy Injection 12:23:07 CDT CPT-J0702 Celestone 12 mg (Betamethasone) 12:23:07 CD T CPT-03858 Venipuncture Draw Fee 10:26:42 CDT CPT-49943 Allergy Admin 2 12:10:01 CDT CPT-72937 Allergy Admin 2 15:13:57 FISH PROTECTOR CPT-20838 Allergy Admin 2 16:55:22 FISH PROTECTOR CPT-35281 Allergy Admin 2 10:13:46 FISH PROTECTOR CPT-72965 Venipuncture Draw Fee 10:06:08 FISH PROTECTOR CPT-49365 Allergy Admin 2 16:15:41 FISH PROTECTOR CPT-92282 Allergy Admin 2 16:40:21 FISH PROTECTOR CPT-69001 Allergy Admin 2 16:31:48 FISH PROTECTOR CPT-63904 Allergy Admin 2 16:38:26 FISH PROTECTOR CPT-37597 Allergy Admin 2 16:40:08 FISH PROTECTOR CPT-29568 Allergy Admin 2 08:34:27 FISH PROTECTOR CPT-34702 Allergy Admin 2 14:27:45 FISH PROTECTOR CPT-75116 Destruction bgn lsn up to 14 09:41:27 FISH PROTECTOR 2 CPT-62970 Allergy Admin 2 17:45:17 FISH PROTECTOR CPT-35740 Allergy Admin 2 14:59:03 FISH PROTECTOR CPT-58260 Allergy Admin 2 12:49:42 CDT CPT-21262 Administration single or combination vac cine inc oral 15:01:57 CDT CPT-55416 Fluzone Quadrivalent Intramuscular Suspe nsion 0.5 ML 15:01:57 CDT CPT-77475 Allergy Admin 2 15:07:08 CDT CPT-12094 Allergy Admin 2 15:39:01 CDT CPT-49562 Allergy Admin 2 17:40:11 CDT CPT-84396 Allergy Admin 2 16:07:08 CDT CPT-77223 Allergy Admin 2 16:08:07 CDT CPT-44555 Venipuncture Draw Fee 09:34:29 CDT CPT-83929 Allergy Admin 2 16:27:43 CDT CPT-25837 Allergy Admin 2 15:53:10 CDT CPT-83372 Allergy Admin 2 15:42:29 CDT CPT-39189 Allergy Admin 2 11:26:14 CDT CPT-09604 Allergy Admin 2 10:36:24 CDT CPT-79584 Allergy Admin 2 16:53:37 CDT CPT-78258 Allergy Admin 2 11:21:44 CDT CPT-67048 Allergy Admin 2 10:50:40 CDT CPT-72673 Allergy Admin 2 11:19:11 CDT CPT-22353 Venipuncture Draw Fee 11:12:25 CDT CPT-75148 Allergy Admin 2 11:14:51 CDT CPT-31092 Allergy Admin 2 16:53:11 CDT CPT-34292 Allergy Admin 2 11:45:56 CDT CPT-62519 Allergy Admin 2 12:51:39 CDT CPT-95923 Allergy Admin 2 12:08:56 CDT CPT-55235 Allergy Admin 2 15:29:45 CDT CPT-38263 Allergy Admin 2 16:34:01 CDT CPT-45590 Allergy Admin 2 16:36:46 CDT CPT-78832 Allergy Admin 2 15:19:16 CDT CPT-48627 Allergy Admin 2 16:13:25 CDT CPT-12019 Allergy Admin 2 17:06:17 CDT CPT-72212 Allergy Admin 2 10:42:10 FISH PROTECTOR CPT-16390 Allergy Admin 2 17:33:16 FISH PROTECTOR CPT-49187 Allergy Admin 2 10:53:30 FISH PROTECTOR CPT-18457 Allergy Admin 2 14:18:24 FISH PROTECTOR CPT-99576 Allergy Admin 2 10:18:29 FISH PROTECTOR CPT-49403 Allergy Admin 2 12:57:40 FISH PROTECTOR CPT-91144 Allergy Admin 2 16:53:33 FISH PROTECTOR CPT-55503 Allergy Admin 2 12:43:00 FISH PROTECTOR CPT-71451 Allergy Admin 2 13:14:09 FISH PROTECTOR CPT-10876 Pneumovax 23 Injection Injectable 25 MCG /0.5ML 09:51:29 FISH PROTECTOR CPT-G0009 Administration of Pneumococcal Vaccine 09:51:29 FISH PROTECTOR CPT-83446 Influenza split virus > age 3 09:51:29 FISH PROTECTOR CPT-G0008 Administration of Influenza Virus Vaccine 02/23 09:51:29 FISH PROTECTOR CPT-14173 Venipuncture Draw Fee 10:31:06 CDT CPT-J0702 Celestone 12 mg (Betamethasone) 11:34:17 CD T CPT-89081 Abx/Therapy Injection 11:34:17 CDT CPT-85252 Chest 2V Frontal and Lat 11:31:47 CDT 07/04 CPT-81510 Venipuncture Draw Fee 11:31:47 CDT CPT-93319 Allergy Admin 2 14:31:05 CDT CPT-41051 EKG Trac and Interp 08:42:32 CDT CPT-46507 Chest 2V Frontal and Lat 08:42:32 CDT 05/28 CPT-02514 Venipuncture Draw Fee 08:39:02 CDT CPT-96026 Allergy Admin 2 16:59:09 CDT CPT-87528 Allergy Admin 2 17:06:11 CDT CPT-89173 Allergy Admin 2 16:04:36 CDT CPT-84788 Venipuncture Draw Fee 16:32:44 FISH PROTECTOR CPT-42134 Venipuncture Draw Fee 10:54:37 FISH PROTECTOR CPT-57634 Allergy Admin 2 14:53:55 FISH PROTECTOR CPT-36678 Allergy Admin 2 10:23:58 FISH PROTECTOR CPT-05614 First Vx Component - Ix admi n via ID IM or jet inj without physician counseling 15:34:26 FISH PROTECTOR CPT-13814 Fluzone (>=3 yrs.) 15:34:26 FISH PROTECTOR CPT-64771 Allergy Admin 2 15:56:02 FISH PROTECTOR CPT-48578 Allergy Admin 2 11:08:58 FISH PROTECTOR CPT-50304 Allergy Admin 2 10:51:36 FISH PROTECTOR CPT-25909 Allergy Admin 2 15:38:19 FISH PROTECTOR CPT-27853 Allergy Admin 2 15:12:46 CDT CPT-27424 Allergy Admin 2 10:28:50 CDT CPT-21127 Allergy Admin 2 16:35:33 CDT CPT-63601 Allergy Admin 2 10:14:18 CDT CPT-14701 Abx/Therapy Injection 09:06:45 CDT CPT-J0702 Celestone 6 mg (Betamethasone) 09:06:45 CDT CPT-00854 Allergy Admin 2 15:51:15 CDT CPT-32592 Allergy Admin 2 10:40:16 CDT CPT-66113 Allergy Admin 2 16:35:55 CDT CPT-98824 Allergy Admin 2 13:12:52 CDT CPT-27875 Allergy Admin 2 16:06:50 CDT CPT-08118 Allergy Admin 2 11:04:24 CDT CPT-59893 Allergy Admin 2 10:44:50 CDT CPT-48255 Allergy Admin 2 15:13:40 CDT CPT-13290 Allergy Admin 2 15:00:03 CDT CPT-49744 Allergy Admin 2 10:37:38 CDT CPT-33479 Venipuncture Draw Fee 09:16:43 FISH PROTECTOR CPT-70390 Allergy Admin 2 11:15:59 FISH PROTECTOR CPT-48908 Postop F/U Visit 10:10:52 FISH PROTECTOR CPT-25725 Allergy Admin 2 13:05:05 FISH PROTECTOR CPT-02179 Postop F/U Visit 19:45:16 FISH PROTECTOR CPT-97219 Allergy Admin 2 11:52:35 FISH PROTECTOR CPT-77163 Allergy Admin 2 10:49:22 FISH PROTECTOR CPT-OV Office Visit 13:55:55 FISH PROTECTOR CPT-39618 Allergy Admin 2 12:54:28 FISH PROTECTOR CPT-OV Office Visit 14:04:48 FISH PROTECTOR CPT-03761 Venipuncture Draw Fee 10:29:14 FISH PROTECTOR CPT-06881 Allergy Admin 2 11:24:43 FISH PROTECTOR CPT-09689 Knee 3V 11:00:12 FISH PROTECTOR CPT-08803 C-Spine Min 4V 11:00:12 FISH PROTECTOR CPT-24303 Allergy Admin 2 13:38:40 FISH PROTECTOR CPT-74863 Venipuncture Draw Fee 11:33:37 CDT CPT-16295 Allergy Admin 2 15:34:37 CDT CPT-97077 Allergy Admin 2 14:11:42 CDT CPT-03382 Administration single or combination vac cine inc oral 12:51:42 CDT CPT-06192 Influenza split virus > age 3 12:51:42 CDT CPT-20990 Allergy Admin 2 11:58:43 CDT CPT-00035 Allergy Admin 2 11:29:32 CDT CPT-26347 Allergy Admin 2 10:55:19 CDT CPT-64263 Allergy Admin 2 12:38:54 CDT CPT-09324 Allergy Admin 2 13:01:47 CDT CPT-52467 Abx/Therapy Injection 12:41:18 CDT CPT-J0702 Celestone 12 mg (Betamethasone) 12:41:18 CD T CPT-26719 Abx/Therapy Injection 16:33:09 CDT CPT-J0702 Celestone 12 mg (Betamethasone) 16:33:09 CD T CPT-04819 Allergy Admin 2 15:49:09 CDT CPT-87934 Allergy Admin 2 12:08:56 CDT CPT-50774 Allergy Admin 2 12:19:10 CDT CPT-07416 Allergy Admin 2 12:46:56 CDT CPT-85587 Allergy Admin 2 15:05:13 CDT CPT-81560 Allergy Admin 2 15:36:20 CDT CPT-43082 Allergy Admin 2 09:58:47 FISH PROTECTOR CPT-90443 Allergy Admin 2 12:18:06 FISH PROTECTOR CPT-07318 Allergy Admin 2 10:01:48 FISH PROTECTOR CPT-47842 Allergy Admin 2 12:17:53 FISH PROTECTOR CPT-74468 Allergy Admin 2 10:06:44 FISH PROTECTOR CPT-87377 Allergy Admin 2 10:13:04 FISH PROTECTOR CPT-05936 Venipuncture Draw Fee 10:09:07 FISH PROTECTOR CPT-54650 Bone Density 12:24:51 FISH PROTECTOR CPT-64097 Allergy Admin 2 11:29:41 FISH PROTECTOR CPT-43276 Allergy Admin 2 16:07:15 FISH PROTECTOR CPT-93510 Breathing Treatment 06:34:33 FISH PROTECTOR CPT-J0702 Celestone 12 mg (Betamethasone) 06:34:33 CS T CPT-36766 Abx/Therapy Injection 06:34:33 FISH PROTECTOR CPT-92409 Breathing Tx 11:07:33 FISH PROTECTOR CPT-85314 Allergy Admin 2 10:02:33 CDT CPT-81721 Allergy Admin 2 10:02:33 CDT CPT-70784 Allergy Admin 2 15:26:19 CDT CPT-39998 Administration single or combination vac cine inc oral 15:41:12 CDT CPT-22286 Influenza split virus > age 3 15:41:12 CDT
--- OUTSIDE RECORDS SUMMARY | 2020-09-15 14:34 | XMS REPORT | Clinical Summary ---
Author Author Admin, Supriya Zuniga Organization [facility] Address Unknown Phone Unavailable Allergies, Adverse Reactions, [...] Yang APRN Pruritus vulvae Active Ashley Yokum BUSINESS OFFICE TECHNICIAN Screening mammogram V76.12 Resolved Ashley Yokum A PRN Other screening mammogram Sinusitis, acute maxillary 461.0 Inactive 7 Ashley Yokum BUSINESS OFFICE TECHNICIAN Acute maxillary sinusitis Diarrhea, acute 787.91 Resolved Ashley Yokum BUSINESS OFFICE TECHNICIAN Diarrhea Vaginal candidiasis 112.1 Resolved Ashley Yokum A PRN Candidiasis of vulva and vagina Accidental fall E888.9 Resolved Ashley Yokum BUSINESS OFFICE TECHNICIAN Unspecified fall Contusion of left hand, initial encounter 923.20 Resol burak Ashley Yokum BUSINESS OFFICE TECHNICIAN Contusion of hand(s) Contusion of right upper arm, subsequent encounter V58.89 201 09/14/21 Resolved Ashley Yokum BUSINESS OFFICE TECHNICIAN Encounter for other specified a ftercare Ganglion cyst of left wrist 727.41 Active Derrick Younger MD Ganglion of joint Body Mass Index 31.0-31.9 Adult Resolved 2017 Ashley Yokum BUSINESS OFFICE TECHNICIAN Body Mass Index 31.0-31.9, adult Plantar fasciitis 728.71 Active Ashley Yokum BUSINESS OFFICE TECHNICIAN Plantar fascial fibromatosis Bronchitis, acute 466.0 Inactive Ashley Yokum APR N Acute bronchitis Body Mass Index 30.0-30.9 Adult Resolved 2017 Ashley Yokum BUSINESS OFFICE TECHNICIAN Body Mass Index 30.0-30.9, adult Allergic conjunctivitis, bilateral 372.14 Resolved 2 Ashley Yokum BUSINESS OFFICE TECHNICIAN Other chronic allergic conjunctivitis Skin tags; irritated/inflammed 701.9 Resolved 11/10 Ashley Yokum BUSINESS OFFICE TECHNICIAN Unspecified hypertrophic and atrophic co nditions of skin Body Mass Index 31.0-31.9 Adult Refinement 2017 Ashley Yokum BUSINESS OFFICE TECHNICIAN Body Mass Index 31.0-31.9, adult BMI 30-30.9 Refinement Ashley Yokum BUSINESS OFFICE TECHNICIAN Body Mass Index 31.0-31.9, adult BMI 31-31.9 Refinement Ashley Yokum BUSINESS OFFICE TECHNICIAN Body Mass Index 31.0-31.9, adult BMI 32-32.9 Refinement Lois Faith RN Body Mass Index 31.0-31.9, adult BMI 31-31.9 Active Viviana Rubio APRN-Julieta Body Mass Index 31.0-31.9, adult Major depression, recurrent, moderate 296.32 Active Ashley Yokum BUSINESS OFFICE TECHNICIAN Major depressive disorder, recurrent epi sode, moderate degree Obesity Class I (BMI 30-34.9) Active Ashley Y okum BUSINESS OFFICE TECHNICIAN Obesity, unspecified Nausea and vomiting 787.01 Resolved Ashley Yokum A PRN Nausea with vomiting Gastroenteritis acute 558.9 Resolved Ashley Yokum BUSINESS OFFICE TECHNICIAN Other and unspecified noninfectious gastroenteritis and colitis GERD 530.81 Active Ashley Yokum BUSINESS OFFICE TECHNICIAN E sophageal reflux Joint pain 719.40 Resolved Ashley Yokum BUSINESS OFFICE TECHNICIAN Pain in joint, site unspecified Preventive health care, adult V70.0 Inactive /06 Ashlye Yokum BUSINESS OFFICE TECHNICIAN Routine general medical examination at a health care facility Blood in urine 599.70 Resolved Ashley Yokum BUSINESS OFFICE TECHNICIAN Hematuria, unspecified Other abnormal findings in urine Resolved Ashley Yokum BUSINESS OFFICE TECHNICIAN Urinary tract infection 599.0 Inactive Ashley Yok um BUSINESS OFFICE TECHNICIAN Urinary tract infection, site not specified Chafing of skin 709.8 Resolved Ashley Yokum BUSINESS OFFICE TECHNICIAN Other specified disorders of skin Preventive care V70.0 Active Supriya Betzaida A Routine general medical examination at a health care facility Gynecological examination, routine V72.3 Inactive 2 Ashley Yokum BUSINESS OFFICE TECHNICIAN Special investigations and e xaminations - Gynecological examination Near syncope 780.2 Resolved Ashley Yokum BUSINESS OFFICE TECHNICIAN Syncope and collapse Lightheadedness 780.4 Resolved Ashley Yokum BUSINESS OFFICE TECHNICIAN Dizziness and giddiness Headache 784.0 Resolved Ashley Yokum BUSINESS OFFICE TECHNICIAN Headache Sore throat 462 Resolved Ashley Yokum BUSINESS OFFICE TECHNICIAN Acute pharyngitis Sinusitis - acute 461.9 Resolved Ashley Yokum APR N Acute sinusitis, unspecified Tired all the time 780.79 Resolved Ashley Yokum AP RN Other malaise and fatigue Fatigue 780.79 Inactive Ashley Yokum BUSINESS OFFICE TECHNICIAN Other malaise and fatigue Preoperative examination V72.84 Active Ashley Yok um BUSINESS OFFICE TECHNICIAN Preoperative examination, unspecified Skin lesion 709.9 Active Ashley Yokum BUSINESS OFFICE TECHNICIAN Unspecified disorder of skin and subcutaneous tissue ABNORMAL WEIGHT GAIN ICD-783.1 Inactive Wayne paul PA ALLERGIC RHINITIS ICD-477.9 Inactive Lois mendieta BUSINESS OFFICE TECHNICIAN SINUSITIS ICD-473.9 Inactive Lois Leos BUSINESS OFFICE TECHNICIAN 2012 WHEEZING ICD-786.07 Inactive Lois Leos BUSINESS OFFICE TECHNICIAN 2012 UPPER RESPIRATORY INFECTION, ACUTE ICD-465.9 I nactive Lois Leos BUSINESS OFFICE TECHNICIAN NEED FOR DESENSITIZATION TO ALLERGENS ICD-V07.1 8 Inactive Ashley Yang BUSINESS OFFICE TECHNICIAN OBESITY ICD-278.00 Inactive Wayne Harms PA CONTACT DERMATITIS DUE TO POISON ARANZA ICD-692.6 Inactive Lois Leos BUSINESS OFFICE TECHNICIAN NEED PROPHYLACTIC VACCINATION&INOCULATION FLU ICD-V04.81 Inactive Wayne Harms PA GERD ICD-530.81 Inactive Lois Leos BUSINESS OFFICE TECHNICIAN 03/22 LONG-TERM (CURRENT) USE OF OTHER MEDICATIONS ICD-V58.69 6 Inactive Wayne Harms PA NECK PAIN ICD-723.1 Inactive Wayne Harms PA 06/15 DEGENERATIVE DISC DISEASE, CERVICAL SPINE ICD-722.4 Inactive Wayne Harms PA SKIN TAG ICD-701.9 Inactive Wayne Harms PA G E R D ICD-530.81 Inactive Lois Leos BUSINESS OFFICE TECHNICIAN CANDIDIASIS OF SKIN AND NAILS ICD-112.3 Inacti ve Wayne Harms PA AFTERCARE FOLLOW SURGERY MUSCULOSKEL SYSTEM NEC ICD-V58.78 Inactive Wayne Harms PA PHARYNGITIS ICD-462 Inactive Wayne Harms PA 05/03 OTHER SCREENING MAMMOGRAM ICD-V76.12 Inactive Wayne Harms PA DYSPAREUNIA, MILD ICD-625.0 Inactive Wayne Harm s PA CONTACT DERMATITIS DUE TO POISON ARANZA ICD-692.6 Inactive Wayne Harms PA Sinusitis, chronic ICD-473.9 Inactive Ashley Yo yoni BUSINESS OFFICE TECHNICIAN Myalgia ICD-729.1 Inactive Wayne Harms PA Rheumatoid [...] PA Runny nose ICD-472.0 Inactive Ashley Yokum BUSINESS OFFICE TECHNICIAN Influenza like illness ICD-487.1 Inactive Wayne Moon PA Acute maxillary sinusitis ICD-461.0 Inactive Ashley Yokum BUSINESS OFFICE TECHNICIAN Preventive health care ICD-V70.0 Inactive Ka thi Yokum BUSINESS OFFICE TECHNICIAN Well women exam ICD-V72.3 Inactive Ashley Yokum BUSINESS OFFICE TECHNICIAN Screening mammogram ICD-V76.12 Inactive Ashley Yokum BUSINESS OFFICE TECHNICIAN Sinusitis, acute maxillary ICD-461.0 Inactive Ashley Yokum BUSINESS OFFICE TECHNICIAN Diarrhea, acute ICD-787.91 Inactive Ashley Yoku m BUSINESS OFFICE TECHNICIAN Vaginal candidiasis ICD-112.1 Inactive Ashley Y okum BUSINESS OFFICE TECHNICIAN Accidental fall ICD-E888.9 Inactive Ashley Yoku m BUSINESS OFFICE TECHNICIAN Contusion of left hand, initial encounter ICD-923.20 Inactive Ashley Yokum BUSINESS OFFICE TECHNICIAN Contusion of right upper arm, subsequent encounter ICD-V58.89 Inactive Ashley Yokum BUSINESS OFFICE TECHNICIAN Body Mass Index 31.0-31.9 Adult Inac tive Ashley Yokum BUSINESS OFFICE TECHNICIAN Bronchitis, acute ICD-466.0 Inactive Ashley Yok um BUSINESS OFFICE TECHNICIAN Body Mass Index 30.0-30.9 Adult Inac tive Ashley Yokum BUSINESS OFFICE TECHNICIAN Allergic conjunctivitis, bilateral ICD-372.14 I nactive Ashley Yokum BUSINESS OFFICE TECHNICIAN Skin tags; irritated/inflammed ICD-701.9 Inact rancho Ashley Yokum BUSINESS OFFICE TECHNICIAN Nausea and vomiting ICD-787.01 Inactive Ashley Yokum BUSINESS OFFICE TECHNICIAN Gastroenteritis acute ICD-558.9 Inactive Conchis hi Yokum BUSINESS OFFICE TECHNICIAN Joint pain ICD-719.40 Inactive Ashley Yokum APR N Preventive health care, adult ICD-V70.0 Inacti ve Ashley Yokum BUSINESS OFFICE TECHNICIAN Blood in urine ICD-599.70 Inactive Ashley Yokum BUSINESS OFFICE TECHNICIAN Other abnormal findings in urine Mutual ctive Ashley Yokum BUSINESS OFFICE TECHNICIAN Urinary tract infection ICD-599.0 Inactive K athi Yokum BUSINESS OFFICE TECHNICIAN Chafing of skin ICD-709.8 Inactive Ashley Yokum BUSINESS OFFICE TECHNICIAN Gynecological examination, routine ICD-V72.3 I nactive Ashley Yokum BUSINESS OFFICE TECHNICIAN Near syncope ICD-780.2 Inactive Ashley Yokum AP RN Lightheadedness ICD-780.4 Inactive Ashley Yokum BUSINESS OFFICE TECHNICIAN Headache ICD-784.0 Inactive Ashley Yokum BUSINESS OFFICE TECHNICIAN 2020 Sore throat ICD-462 Inactive Ashley Yang BUSINESS OFFICE TECHNICIAN 202 02/17/17 Sinusitis - acute ICD-461.9 Inactive Ashley peacock BUSINESS OFFICE TECHNICIAN Tired all the time ICD-780.79 Inactive Ashley gutierrez BUSINESS OFFICE TECHNICIAN Fatigue ICD-780.79 Inactive Ashley Yang BUSINESS OFFICE TECHNICIAN 2020 Medication List Medication Instructions Start Date Stop Date Generic Name NDC Status Provider Patient Instruction PHENTERMINE HCL 37.5 MG TABS 1 TAB IN MORING. TAKE 30 MIN BEFORE BREAKFAST OR 2 HRS AFTER BREAKFAST PHENTERMINE HCL 72806073532 Active Ashley Yang APRN Active ADK [id number] UNIT-MCG ORAL CAPSULE 1 daily 2 VITAMINS A D K 21643876891 No Longer Active Ashley Yang APRN Active EQ LORATADINE 10 MG ORAL TABLET TAKE 1 TABLET BY MOUTH ONCE DAILY NEEDED FOR ALLERGIES LORATADINE 32181885861 Active Shanelle Nicole RN Active ALPRAZOLAM 0.25 MG TABS TAKE 1 TO 2 TABLETS BY MOUTH THREE TIMES DAILY NEEDED ALPRAZOLAM 69138956802 Active Shanelle Nicole RN Active MUCINEX D 60-600 MG ORAL TABLET EXTENDED RELEASE 12 HO UR 1 po BID PRN Congestion PSEUDOEPHEDRINE-GUAIFENESIN 57864327536 Active Ashley Yang APRN Active ZYRTEC ALLERGY 10 MG ORAL CAPSULE 1qd CETIR IZINE HCL 50427368315 No Longer Active Ashley Yang APRN Active HAIR, SKIN, NAILS VITAMINS take 1 tab by mouth 2x a day HAIR, SKIN, NAILS VITAMINS Active Ashley Merazum BUSINESS OFFICE TECHNICIAN Active CENTRUM SILVER FOR WOMEN OVER 50 1 tab by mouth by day. CENTRUM SILVER FOR WOMEN OVER 50 Active Ashley Yang APRN Active VITAMIN D3 1000 UNIT ORAL CAPSULE 1 po qd CH OLECALCIFEROL 27875797275 Active Ashley Yang BUSINESS OFFICE TECHNICIAN Active PREDNISONE 20 MG ORAL TABLET Take 2 tablets by mouth d aily for 2 days then 1 tablet daily for 2 days. PREDNISONE 52074879734 No Longer Active Ashleykaleigh Yang BUSINESS OFFICE TECHNICIAN Active MELOXICAM 15 MG ORAL TABLET TAKE 1 TABLET BY MOUTH IN THE MORNING 2 MELOXICAM 04180910575 Active Shanelle Rivera RN Active SIMVASTATIN 40 MG ORAL TABLET TAKE 1 TABLET BY MOUTH ONCE DA JAVON AT BEDTIME SIMVASTATIN 25297069633 Active LARRY Murillo Active [id number] ORAL TABLET MULT IPLE MINERALS 42485627328 Active Lois Faith RN Active SERTRALINE HCL 100 MG ORAL TABLET Take 1 tablet by mouth once da javon SERTRALINE HCL 02692639982 Active LARRY Murillo A ctive REGLAN 10 MG ORAL TABLET 1 po qid for bowels 3 METOCLOPRAMIDE HCL 81708158488 No Longer Active Ashley Yang ELAINA A ctive B-12 2500 MCG ORAL TABLET 1 daily CYANOCOBAL HUNT 69282142913 No Longer Active Ashley Yang ELAINA Active ESTRADIOL 2 MG TABS Take 1 tablet by mouth once daily ESTRADIOL 93387898787 Active Shanelle Rivera RN Active MACROBID 100 MG ORAL CAPSULE 1 cap by mouth twice daily NITROFURANTOIN MONOHYD MACRO 74301657014 No Longer Active Ashley Yang BUSINESS OFFICE TECHNICIAN Active FISH OIL + D3 7234-9415 MG-UNIT ORAL CAPSULE 1 dailly 4 FISH OIL-CHOLECALCIFEROL 74143913880 Active Ashley Ktum BUSINESS OFFICE TECHNICIAN Acti ve PROAIR HFA 108 (90 BASE) MCG/ACT INHALATION AEROSOL SO LUTION 2 puffs four times a day as needed ALBUTEROL SULFATE 19072284207 No Long er Active Ashleykaleigh Merazum BUSINESS OFFICE TECHNICIAN Active ZITHROMAX Z-SANJANA 250 MG ORAL TABLET Take 2 tablets toda y and 1 each day till gone AZITHROMYCIN 26758624502 No Longer Active Ashley Yokum BUSINESS OFFICE TECHNICIAN Active POLYTRIM 53167-9.1 UNIT/ML-% OPHTHALMIC SOLUTION 1 gtt to affected eye q3h x 7 days POLYMYXIN B-TRIMETHOPRIM 36916643904 No Longer Active Ashley Yokum BUSINESS OFFICE TECHNICIAN Active IBUPROFEN 200 MG ORAL TABLET Take 3 tablets every 6hrs 201 09/17/15 IBUPROFEN 42309441192 No Longer Active Ashley Yokum BUSINESS OFFICE TECHNICIAN Active DIFLUCAN 150 MG ORAL TABLET Take one tablet today and repeat in 72 hours FLUCONAZOLE 84349760099 No Longer Active Derrick cardenas MD Active DIFLUCAN 150 MG ORAL TABLET 1 by mouth for yeast 03/03 FLUCONAZOLE 88045476609 No Longer Active Ashley Yokum BUSINESS OFFICE TECHNICIAN Active AUGMENTIN 875-125 MG ORAL TABLET Take one tablet twice a day with food AMOXICILLIN-POT CLAVULANATE 46210941022 No Longer Act rancho Ashley Yokum BUSINESS OFFICE TECHNICIAN Active CALCIUM 600 + D 600-200 MG-UNIT ORAL TABLET Take one daily CALCIUM CARB-CHOLECALCIFEROL 00741157634 No Longer Active Ashley Yokum BUSINESS OFFICE TECHNICIAN Active FLONASE 50 MCG/ACT NASAL SUSPENSION 1 spray each nostr il twice daily for allergies and runny nose FLUTICASONE PROPIONATE 23283604491 No Longer Active Ashley Yokum BUSINESS OFFICE TECHNICIAN Active CLARITIN-D 12 HOUR 5-120 MG ORAL TABLET EXTENDED RELEA SE 12 HOUR Take one tablet BID as needed for allergies LORATADINE-PSEUDOEP HEDRINE 74847917230 No Longer Active Beth Naff METAL FABRICATOR APPRENTICE Active AMOXICILLIN-POT CLAVULANATE 875-125 MG ORAL TABLET 1 pill by mouth twice daily AMOXICILLIN-POT CLAVULANATE 97244851986 No Longer Act rancho Ashley Yokum BUSINESS OFFICE TECHNICIAN Active AMOXICILLIN 500 MG ORAL CAPSULE Take 1 capsule by mout h three times a day X 10 days AMOXICILLIN 59921961284 No Longer Active Wayne H arms PA Active PROBIOTIC DAILY ORAL CAPSULE Take one daily PROBIO TIC PRODUCT 11406370531 Active Wayne Harms PA Active TYLENOL 325 MG ORAL TABLET Take 2 every 6hrs prn A CETAMINOPHEN 17184300413 Active Wayne Harms PA Active ACETAMINOPHEN 500 MG ORAL TABLET prn RICH TAMINOPHEN 87812351356 No Longer Active Wayne Harms PA Active CLARITIN-D 12 HOUR 5-120 MG ORAL TABLET EXTENDED RELEA SE 12 HOUR Take one tablet bid LORATADINE-PSEUDOEPHEDRINE 43863001008 No Longe r Active Wayne Harms PA Active MOBIC 15 MG ORAL TABLET 1 tablet by mouth daily in am with PPI 2 MELOXICAM 38627093126 No Longer Active Wayne Harms PA Acti ve HYDROCORTISONE 2.5 % EXTERNAL CREAM Apply three times a day to affected area HYDROCORTISONE 06061079138 No Longer Active Wayne Harms PA Active VITAMIN D3 1000 UNIT ORAL TABLET Take two daily CHOLECALCIFEROL 35846402017 No Longer Active Wayne Harms PA Active PROBIOTIC ORAL CAPSULE Take one daily PROBIOTIC PRODUCT 39647880089 No Longer Active Wayne Harms PA Active GREEN TEA SLIM ORAL TABLET Take one daily MISC NATURAL PRODUCTS 31366860312 No Longer Active Wayne Harms PA Active BENZONATATE 200 MG ORAL CAPSULE Take one capsule three times a d ay BENZONATATE 51138335596 No Longer Active Wayne Harms PA Act rancho ZITHROMAX Z-SANJANA 250 MG ORAL TABLET 2 today, then 1 daily for 4 d ays AZITHROMYCIN 65690455254 No Longer Active Wayne Harms PA Ac tive ZITHROMAX 250 MG ORAL TABLET 2 po today, then 1 po q days 2-5 20 31/03/18 AZITHROMYCIN 04518004895 No Longer Active Beth Turner METAL FABRICATOR APPRENTICE Active OMEPRAZOLE 20 MG ORAL CAPSULE DELAYED RELEASE 1 tablet by mo uth daily OMEPRAZOLE 08519469515 Active Supriya Huston RMA Active ZITHROMAX Z-SANJANA 250 MG ORAL TABLET 2x1day,[id number] 2014 AZITHROMYCIN 70262452262 No Longer Active Wayne Harms PA Active FISH OIL 1200 MG ORAL CAPSULE One daily prn OME GA-3 FATTY ACIDS 64788496521 No Longer Active Wayne Harms PA Active CEPHALEXIN 250 MG ORAL CAPSULE Take one tablet qid 201 05/25/29 CEPHALEXIN 39356102404 No Longer Active Wayne Harms PA Active VITAMIN D3 1000 UNIT ORAL TABLET 1qd CHOLEC ALCIFEROL 93415193690 No Longer Active Wayne Harms PA Active B-12 2000 MCG ORAL TABLET 1qd CYANOCOBALAMI N 06620828852 No Longer Active Wayne Harms PA Active ACIPHEX 20 MG ORAL TABLET DELAYED RELEASE 1qd 10/28 RABEPRAZOLE SODIUM 86750067688 No Longer Active Wayne Harms PA Active HYDROCORTISONE 2.5 % EXTERNAL CREAM apply 3-4 times a day to affected area HYDROCORTISONE 37162475115 No Longer Active Wayne Harms PA Active MUCINEX 600 MG ORAL TABLET EXTENDED RELEASE 12 HOUR 2qd GUAIFENESIN 07308457200 No Longer Active Wayne Harms PA Active TUSSIONEX PENNKINETIC ER 10-8 MG/5ML ORAL SUSPENSION E XTENDED RELEASE 5ml po q12hr PRN Cough HYDROCOD POLST-CHLORPHEN POLST 5 8746505556 No Longer Active Wayne Harms PA Active ZITHROMAX 250 MG ORAL TABLET 2 po today, then 1 po q days 2-5 20 26/06/21 AZITHROMYCIN 07239508738 No Longer Active Wayne Harms PA Ac tive CLARITIN 10 MG ORAL TABLET one tablet daily THEO ATADINE 25043816009 No Longer Active Wayne Harms PA Active FLAGYL 500 MG ORAL TABLET 1 tablet by mouth three times daily 20 28/05/03 METRONIDAZOLE 46685188885 No Longer Active Wayne Harms PA A ctive CHERATUSSIN AC 100-10 MG/5ML ORAL SYRUP one teaspoon qid. 9 GUAIFENESIN-CODEINE 79547886195 No Longer Active Wayne Harms PA Act rancho VITAMIN D 1000 UNIT ORAL TABLET 1qd CHOLECA LCIFEROL 19430627825 No Longer Active Wayne Harms PA Active CYMBALTA 60 MG ORAL CAPSULE DELAYED RELEASE PARTICLES 1 cap by mouth daily DULOXETINE HCL 35082730632 No Longer Active Wayne Harms PA Active AMOXICILLIN 500 MG ORAL CAPSULE 2 caps tid for 10days AMOXICILLIN 35197158205 No Longer Active Wayne Harms PA Active CALCIUM + D 600-200 MG-UNIT TABS Take one by mouth daily CALCIUM CARBONATE-VITAMIN D 22337579105 No Longer Active Wayne Harms PA Active CENTRUM SILVER ADULT 50+ ORAL TABLET 1qd 2013 MULTIPLE VITAMINS-MINERALS 36637787225 No Longer Active Wayne Harms PA Active VENLAFAXINE HCL 75 MG ORAL TABLET 1tid VE NLAFAXINE HCL 72402572280 No Longer Active Wayne Harms PA Active CLARITIN 10 MG ORAL TABLET 1 tablet by mouth daily as needed for allergies LORATADINE 64286471827 No Longer Active Wayne Harms PA Acti ve HYDROCORTISONE 2.5 % EXTERNAL CREAM Apply four times a day to af fected area HYDROCORTISONE 75198158208 No Longer Active Wayne Harms PA Active ZITHROMAX 250 MG ORAL TABLET 2 po today, then 1 po q days 2-5 20 26/02/30 AZITHROMYCIN 28276835330 No Longer Active Wayne Harms PA Ac tive ZITHROMAX 250 MG ORAL TABLET 2 po today, then 1 po q days 2-5 20 27/02/16 AZITHROMYCIN 60164921925 No Longer Active Wayne Harms PA Ac tive CYMBALTA 30 MG ORAL CAPSULE DELAYED RELEASE PARTICLES 3 caps daily DULOXETINE HCL 92391462104 No Longer Active Wayne Harms PA Active CYMBALTA 60 MG ORAL CAPSULE DELAYED RELEASE PARTICLES one tablet daily, takes 30mg. with 60mg. to make 90 mg. DULOXETINE HCL 89344166737 No Longer Active Wayne Harms PA Active CYMBALTA 30 MG ORAL CAPSULE DELAYED RELEASE PARTICLES 1 daily wi th 60mg DULOXETINE HCL 23760531953 No Longer Active Wayne Harms PA Active ZITHROMAX 250 MG ORAL TABLET 2 po today, then 1 po q days 2-5 20 26/12/21 AZITHROMYCIN 56651732124 No Longer Active Ismael YANG Active PREDNISONE 20 MG ORAL TABLET 3tab x 2days,2tab x 2days ,1tab x 2days,1/2tab x 2days PREDNISONE 11801097959 No Longer Active Wayne Vera jarvis YANG Active PREMARIN 0.625 MG ORAL TABLET Take one by mouth daily ESTROGENS CONJUGATED 41844408599 No Longer Active Wayne Harms PA Active ZITHROMAX 250 MG ORAL TABLET 2 po today, then 1 po q days 2-5 20 26/06/19 AZITHROMYCIN 75262414785 No Longer Active Nereyda Isaacs Activ e OMEGA-3 1000 MG ORAL CAPSULE 2qd OMEGA-3 FA TTY ACIDS 61974634717 No Longer Active Wayne Harms PA Active BENADRYL ITCH STOPPING 1-0.1 % EXTERNAL CREAM prn DIPHENHYDRAMINE- ZINC ACETATE 62710618221 No Longer Active Wayne Harms PA Active LOTRISONE 1-0.05 % EXTERNAL CREAM Apply bid CLOTRIMAZOLE-BETAMETHASONE 31641316081 No Longer Active Wayne Harms PA Active ZITHROMAX Z-SANJANA 250 MG ORAL TABLET take as directed 20 26/04/19 AZITHROMYCIN 98914220387 No Longer Active Wayne Harms PA Active NYSTATIN 124650 UNIT/GM EXTERNAL POWDER Apply to affected areas BID NYSTATIN 09755563897 No Longer Active Wayne Harms PA Acti ve BENADRYL 25 MG ORAL CAPSULE prn DIPHENHYDRAMINE HCL 70728636716 Active Wayne Harms PA Active LOTRISONE 1-0.05 % EXTERNAL CREAM apply twice a day 20 25/02/17 CLOTRIMAZOLE-BETAMETHASONE 83329208245 No Longer Active Wayne Harms PA Active HYDROCODONE-ACETAMINOPHEN 5-325 MG ORAL TABLET 1-2 every 4hr s prn pain HYDROCODONE-ACETAMINOPHEN 24955605798 No Longer Activ e Wayne Harms PA Active VICODIN 5-300 MG ORAL TABLET 1-2 tabs every 6hrs as needed for p ain HYDROCODONE-ACETAMINOPHEN 02498822466 No Longer Active Wayne Harms PA Active BENADRYL 25 MG ORAL CAPSULE 1prn DIPHENHYDRA MINE HCL 92226257936 No Longer Active Jillina Frazell BUSINESS OFFICE TECHNICIAN Active ROBITUSSIN DM 100-10 MG/5ML ORAL SYRUP 2 teaspoons four times a day DEXTROMETHORPHAN-GUAIFENESIN 97959427649 No Longer Active Jillina Frazell BUSINESS OFFICE TECHNICIAN Active ACIPHEX 20 MG ORAL TABLET DELAYED RELEASE Take one by mouth daily RABEPRAZOLE SODIUM 44808328754 No Longer Active Jillina Frazell BUSINESS OFFICE TECHNICIAN Active TUMS 500 MG ORAL TABLET CHEWABLE prn SADIQ CIUM CARBONATE ANTACID 39850721945 No Longer Active Jillina Frazell BUSINESS OFFICE TECHNICIAN Active PEPTO-BISMOL 524 MG/30ML ORAL SUSPENSION prn 02/26 BISMUTH SUBSALICYLATE 30232691416 No Longer Active Jillina Frazell BUSINESS OFFICE TECHNICIAN Active BACTRIM DS 800-160 MG ORAL TABLET 1bid SULFAMETHOXAZOLE-TRIMETHOPRIM 51351437187 No Longer Active Beth Naff METAL FABRICATOR APPRENTICE Active GAVISCON EXTRA RELIEF FORMULA CHEW prn A LUM HYDROXIDE-MAG CARBONATE CHEW 45633186737 Active Wayne Harms PA Active DIFLUCAN 150 MG ORAL TABLET 1stat FLUCONAZOL E 20792022649 No Longer Active Wayne Harms PA Active AUGMENTIN 875-125 MG ORAL TABLET 1 tab by mouth twice daily with food AMOXICILLIN-POT CLAVULANATE 83428040253 No Longer Act rancho Wayne Harms PA Active FLUTICASONE PROPIONATE 50 MCG/ACT NASAL SUSPENSION 1 t o 2 sprays each nostril twice a day FLUTICASONE PROPIONATE 14513969312 No Lo nger Active Wayne Harms PA Active HYDROCORTISONE 2.5 % EXTERNAL CREAM apply 2-4 times a day, a s directed, prn HYDROCORTISONE 65486520306 No Longer Active Wayne Harms PA Active ZITHROMAX Z-SANJANA 250 MG ORAL TABLET A ZITHROMYCIN 35764183866 No Longer Active Wayne Harms PA Active SIMVASTATIN 40 MG ORAL TABLET one tablet daily SIMVASTATIN 52420235368 No Longer Active Misty Yoo METAL FABRICATOR APPRENTICE Active LOVASTATIN 40 MG ORAL TABLET Take one by mouth daily 12/11 LOVASTATIN 44955504722 No Longer Active Misty Yoo METAL FABRICATOR APPRENTICE Active PREDNISONE 20 MG ORAL TABLET 2 PO qd x 2d, 1 PO qd x 2d, 1/2 PO qd x 2d PREDNISONE 73430718228 No Longer Active Isamel silva PA Active ZITHROMAX 250 MG ORAL TABLET two tablets now and one daily x 4 d ays AZITHROMYCIN 12286784021 No Longer Active Misty Yoo LPN Active ZOLPIDEM TARTRATE 10MG TABS (ZOLPIDEM TARTRATE) 1 at bedtime as needed Active Supriya Huston RMA Active CLOBETASOL PROPIONATE 0.05 % EXTERNAL CREAM apply as directed CLOBETASOL PROPIONATE 56699910509 No Longer Active Wayne Harms PA A ctive CYMBALTA 30 MG ORAL CAPSULE DELAYED RELEASE PARTICLES takes 90mg qod alt with 60mg DULOXETINE HCL 10886083508 No Longer Active Wayne Harm s PA Active ZITHROMAX 250 MG ORAL TABLET 2 po today, then 1 po q days 2-5 20 12/24/14 AZITHROMYCIN 58675577577 No Longer Active Wayne Harms PA Ac tive TRIAMCINOLONE ACETONIDE 0.1 % EXTERNAL CREAM apply qid TRIAMCINOLONE ACETONIDE 36279003266 No Longer Active Wayne Harms PA Active ALPRAZOLAM 0.25 MG ORAL TABLET 1 tab three times a day 201 02/23/14 ALPRAZOLAM 72984383458 No Longer Active Wayne Harms PA Active ZOLPIDEM TARTRATE 5 MG ORAL TABLET 1 at bedtime as needed ZOLPIDEM TARTRATE 46551413363 No Longer Active Beth Turner METAL FABRICATOR APPRENTICE Active ACETAMINOPHEN 500 MG ORAL TABLET prn ACETAMINOPHEN 500 MG ORAL TABLET 197271 ACETAMINOPHEN Inactive ALPRAZOLAM 0.25 MG ORAL TABLET 1 tab three times a day ALPRAZOLAM 0.25 MG ORAL TABLET 886843 ALPRAZOLAM Inactive AMOXICILLIN 500 MG ORAL CAPSULE Take 1 capsule by mout h three times a day X 10 days AMOXICILLIN 500 MG ORAL CAPSULE 431218 AMOX ICILLIN Inactive AMOXICILLIN 500 MG ORAL CAPSULE 2 caps tid for 10days AMOXICILLIN 500 MG ORAL CAPSULE 576048 AMOXICILLIN Inactive BACTRIM DS 800-160 MG ORAL TABLET 1bid BACTRIM DS 800-160 MG ORAL TABLET 736174 SULFAMETHOXAZOLE-TRIMETHOPRIM Inactive BENADRYL 25 MG ORAL CAPSULE 1prn BENADRYL 25 MG ORAL CAPSULE DIPHENHYDRAMINE HCL Inactive CHERATUSSIN AC 100-10 MG/5ML ORAL SYRUP one teaspoon qid. 9 CHERATUSSIN AC 100-10 MG/5ML ORAL SYRUP GUAIFENESIN-CODEINE Inactive CLARITIN 10 MG ORAL TABLET one tablet daily CLARITIN 10 MG ORAL TABLET 170916 LORATADINE Inactive CLARITIN 10 MG ORAL TABLET 1 tablet by mouth daily as needed for allergies CLARITIN 10 MG ORAL TABLET 358812 LORATADINE Inact rancho FLAGYL 500 MG ORAL TABLET 1 tablet by mouth three times daily 20 28/05/03 FLAGYL 500 MG ORAL TABLET 046134 METRONIDAZOLE Inacti ve HYDROCORTISONE 2.5 % EXTERNAL CREAM apply 3-4 times a day to affected area HYDROCORTISONE 2.5 % EXTERNAL CREAM 614374 HYDRO CORTISONE Inactive HYDROCORTISONE 2.5 % EXTERNAL CREAM Apply three times a day to affected area HYDROCORTISONE 2.5 % EXTERNAL CREAM 987106 HYDRO CORTISONE Inactive HYDROCORTISONE 2.5 % EXTERNAL CREAM Apply four times a day to af fected area HYDROCORTISONE 2.5 % EXTERNAL CREAM 189176 HYDROCORTISO NE Inactive HYDROCORTISONE 2.5 % EXTERNAL CREAM apply 2-4 times a day, a s directed, prn HYDROCORTISONE 2.5 % EXTERNAL CREAM 386760 HYDRO CORTISONE Inactive IBUPROFEN 200 MG ORAL TABLET Take 3 tablets every 6hrs IBUPROFEN 200 MG ORAL TABLET 115462 IBUPROFEN Inactive LOTRISONE 1-0.05 % EXTERNAL CREAM apply twice a day 25/02/17 LOTRISONE 1- 0.05 % EXTERNAL CREAM CLOTRIMAZOLE-BETAMETHASONE Inactive LOTRISONE 1-0.05 % EXTERNAL CREAM Apply bid LOTRISONE 1- 0.05 % EXTERNAL CREAM CLOTRIMAZOLE-BETAMETHASONE Inactive MACROBID 100 MG ORAL CAPSULE 1 cap by mouth twice daily MACROBID 100 MG ORAL CAPSULE 7997612 NITROFURANTOIN MONOHYD MACRO In active POLYTRIM 66961-5.1 UNIT/ML-% OPHTHALMIC SOLUTION 1 gtt to affected eye q3h x 7 days POLYTRIM 73215-8.1 UNIT/ML-% OPH THALMIC SOLUTION 488687 POLYMYXIN B-TRIMETHOPRIM Inactive PREDNISONE 20 MG ORAL TABLET 2 PO qd x 2d, 1 PO qd x 2d, 1/2 PO qd x 2d PREDNISONE 20 MG ORAL TABLET 057918 PREDNISONE Inactive PREDNISONE 20 MG ORAL TABLET Take 2 tablets by mouth d aily for 2 days then 1 tablet daily for 2 days. PREDNISONE 20 MG ORAL T ABLET 476298 PREDNISONE Inactive PREDNISONE 20 MG ORAL TABLET 3tab x 2days,2tab x 2days ,1tab x 2days,1/2tab x 2days PREDNISONE 20 MG ORAL TABLET 916066 PREDNIS ONE Inactive PREMARIN 0.625 MG ORAL TABLET Take one by mouth daily PREMARIN 0.625 MG ORAL TABLET ESTROGENS CONJUGATED Inactive REGLAN 10 MG ORAL TABLET 1 po qid for bowels 3 REGLAN 10 MG ORAL TABLET 028448 METOCLOPRAMIDE HCL Inactive ROBITUSSIN DM 100-10 MG/5ML ORAL SYRUP 2 teaspoons four times a day ROBITUSSIN DM 100-10 MG/5ML ORAL SYRUP DEXTROMET HORPHAN-GUAIFENESIN Inactive TRIAMCINOLONE ACETONIDE 0.1 % EXTERNAL CREAM apply qid TRIAMCINOLONE ACETONIDE 0.1 % EXTERNAL CREAM 5194843 TRIAMCINOLONE A CETONIDE Inactive TUMS 500 MG ORAL TABLET CHEWABLE prn TUMS 500 MG ORAL TABLET CHEWABLE 282789 CALCIUM CARBONATE ANTACID Inactive CEPHALEXIN 250 MG ORAL CAPSULE Take one tablet qid 201 05/25/29 CEPHALEXIN 250 MG ORAL CAPSULE 294606 CEPHALEXIN Inactive CLOBETASOL PROPIONATE 0.05 % EXTERNAL CREAM apply as directed CLOBETASOL PROPIONATE 0.05 % EXTERNAL CREAM 537721 CLOBETASOL PROPI KELVIN Inactive LOVASTATIN 40 MG ORAL TABLET Take one by mouth daily 2 LOVASTATIN 40 MG ORAL TABLET 054618 LOVASTATIN Inactive SIMVASTATIN 40 MG ORAL TABLET one tablet daily SIMVASTATIN 40 MG ORAL TABLET 211966 SIMVASTATIN Inactive VENLAFAXINE HCL 75 MG ORAL TABLET 1tid VENLAFAXINE HCL 75 MG ORAL TABLET 047844 VENLAFAXINE HCL Inactive PEPTO-BISMOL 524 MG/30ML ORAL SUSPENSION prn PEPTO-BISMOL 524 MG/30ML ORAL SUSPENSION BISMUTH SUBSALICYLATE Inactive DIFLUCAN 150 MG ORAL TABLET 1stat DIFLUCAN 150 MG ORAL TABLET 180322 FLUCONAZOLE Inactive DIFLUCAN 150 MG ORAL TABLET 1 by mouth for yeast 03/03 DIFLUCAN 150 MG ORAL TABLET 489685 FLUCONAZOLE Inactive DIFLUCAN 150 MG ORAL TABLET Take one tablet today and repeat in 72 hours DIFLUCAN 150 MG ORAL TABLET 381711 FLUCONAZOLE Inactive VITAMIN D 1000 UNIT ORAL TABLET 1qd 4 VITAMIN D 1000 UNIT ORAL TABLET CHOLECALCIFEROL Inactive AUGMENTIN 875-125 MG ORAL TABLET 1 tab by mouth twice daily with food AUGMENTIN 875-125 MG ORAL TABLET AMOXICIL BLOSSOM-POT CLAVULANATE Inactive AUGMENTIN 875-125 MG ORAL TABLET Take one tablet twice a day with food AUGMENTIN 875-125 MG ORAL TABLET AMOXICILLIN-POT CLAVULANATE Inactive CLARITIN-D 12 HOUR 5-120 MG ORAL TABLET EXTENDED RELEA SE 12 HOUR Take one tablet BID as needed for allergies CLARITIN-D 12 HOUR 5-120 MG ORAL TABLET EXTENDED RELEASE 12 HOUR LORATADINE-PSEUDOEPHEDR INE Inactive CLARITIN-D 12 HOUR 5-120 MG ORAL TABLET EXTENDED RELEA SE 12 HOUR Take one tablet bid CLARITIN-D 12 HOUR 5 -120 MG ORAL TABLET EXTENDED RELEASE 12 HOUR LORATADINE-PSEUDOEPHEDRINE Inactive ZITHROMAX 250 MG ORAL TABLET 2 po today, then 1 po q days 2-5 20 12/24/14 ZITHROMAX 250 MG ORAL TABLET 007631 AZITHROMYCIN [employer] [facility] ZITHROMAX 250 MG ORAL TABLET two tablets now and one daily x 4 d ays ZITHROMAX 250 MG ORAL TABLET 049021 AZITHROMYCIN [employer] [facility] ZITHROMAX 250 MG ORAL TABLET 2 po today, then 1 po q days 2-5 20 26/12/21 ZITHROMAX 250 MG ORAL TABLET 288333 AZITHROMYCIN [employer] [facility] ZITHROMAX 250 MG ORAL TABLET 2 po today, then 1 po q days 2-5 20 27/02/16 ZITHROMAX 250 MG ORAL TABLET 425562 AZITHROMYCIN [employer] [facility] ZITHROMAX 250 MG ORAL TABLET 2 po today, then 1 po q days 2-5 20 26/02/30 ZITHROMAX 250 MG ORAL TABLET 357869 AZITHROMYCIN [facility] ZITHROMAX 250 MG ORAL TABLET 2 po today, then 1 po q days 2-5 20 26/06/21 ZITHROMAX 250 MG ORAL TABLET 505705 AZITHROMYCIN [facility] ZITHROMAX 250 MG ORAL TABLET 2 po today, then 1 po q days 2-5 20 31/03/18 ZITHROMAX 250 MG ORAL TABLET 532971 AZITHROMYCIN [facility] ZITHROMAX 250 MG ORAL TABLET 2 po today, then 1 po q days 2-5 20 26/06/19 ZITHROMAX 250 MG ORAL TABLET 197131 AZITHROMYCIN [facility] ACIPHEX 20 MG ORAL TABLET DELAYED RELEASE Take one by mouth daily ACIPHEX 20 MG ORAL TABLET DELAYED RELEASE 014767 RABEPRAZOLE SODIUM Inactive ACIPHEX 20 MG ORAL TABLET DELAYED RELEASE 1qd ACIPHEX 20 MG ORAL TABLET DELAYED RELEASE 133598 RABEPRAZOLE SODIUM Inactive BENZONATATE 200 MG ORAL CAPSULE Take one capsule three times a d ay BENZONATATE 200 MG ORAL CAPSULE 989765 BENZONATATE Inactive BENADRYL ITCH STOPPING 1-0.1 % EXTERNAL CREAM prn BENADRYL ITCH STOPPING 1-0.1 % EXTERNAL CREAM DIPHENHYDRAMINE-ZINC ACETATE Inactive CALCIUM + D 600-200 MG-UNIT TABS Take one by mouth daily CALCIUM + D 600-200 MG-UNIT TABS CALCIUM CARBONATE-VITAMIN D Inactive MOBIC 15 MG ORAL TABLET 1 tablet by mouth daily in am with PPI 2 MOBIC 15 MG ORAL TABLET 026728 MELOXICAM Inactive ZITHROMAX Z-SANJANA 250 MG ORAL TABLET Take 2 tablets toda y and 1 each day till gone ZITHROMAX Z-SANJANA 250 MG ORAL TABLET 780795 A ZITHROMYCIN Inactive ZITHROMAX Z-SANJANA 250 MG ORAL TABLET 2x1day,[id number] 2014 ZITHROMAX Z-SANJANA 250 MG ORAL TABLET 911023 AZITHROMYCIN Inact rancho ZITHROMAX Z-SANJANA 250 MG ORAL TABLET take as directed 26/04/19 ZITHROMAX Z-SANJANA 250 MG ORAL TABLET 261210 AZITHROMYCIN Inact rancho ZITHROMAX Z-SANJANA 250 MG ORAL TABLET 03/03 ZITHROMAX Z-SANJANA 250 MG ORAL TABLET 666704 AZITHROMYCIN Inactive ZITHROMAX Z-SANJANA 250 MG ORAL TABLET 2 today, then 1 daily for 4 d ays ZITHROMAX Z-SANJANA 250 MG ORAL TABLET 978490 AZITHROMYCIN Inactive FLONASE 50 MCG/ACT NASAL SUSPENSION 1 spray each nostr il twice daily for allergies and runny nose FLONASE 50 MCG/ ACT NASAL SUSPENSION FLUTICASONE PROPIONATE Inactive OMEGA-3 1000 MG ORAL CAPSULE 2qd OMEGA-3 1000 MG ORAL CAPSULE 555817 OMEGA-3 FATTY ACIDS Inactive AMOXICILLIN-POT CLAVULANATE 875-125 MG ORAL TABLET 1 pill by mouth twice daily AMOXICILLIN-POT CLAVULANATE 875-125 MG ORAL TABL ET 362452 AMOXICILLIN-POT CLAVULANATE Inactive HYDROCODONE-ACETAMINOPHEN 5-325 MG ORAL TABLET 1-2 every 4hr s prn pain HYDROCODONE-ACETAMINOPHEN 5-325 MG ORAL TABLET 8 87062 HYDROCODONE-ACETAMINOPHEN Inactive MUCINEX 600 MG ORAL TABLET EXTENDED RELEASE 12 HOUR 2qd MUCINEX 600 MG ORAL TABLET EXTENDED RELEASE 12 HOUR GUAIFENESIN Inactive NYSTATIN 745469 UNIT/GM EXTERNAL POWDER Apply to affected areas BID NYSTATIN 741637 UNIT/GM EXTERNAL POWDER 389433 NYSTATIN Inactive CYMBALTA 60 MG ORAL CAPSULE DELAYED RELEASE PARTICLES one tablet daily, takes 30mg. with 60mg. to make 90 mg. CYMBALTA 60 MG ORAL CAPSULE DELAYED RELEASE PARTICLES 392294 DULOXETINE HCL Inacti ve CYMBALTA 60 MG ORAL CAPSULE DELAYED RELEASE PARTICLES 1 cap by mouth daily CYMBALTA 60 MG ORAL CAPSULE DELAYED RELE ASE PARTICLES 115776 DULOXETINE HCL Inactive CYMBALTA 30 MG ORAL CAPSULE DELAYED RELEASE PARTICLES takes 90mg qod alt with 60mg CYMBALTA 30 MG ORAL CAPSULE DELAYED RELEA SE PARTICLES 774872 DULOXETINE HCL Inactive CYMBALTA 30 MG ORAL CAPSULE DELAYED RELEASE PARTICLES 3 caps daily CYMBALTA 30 MG ORAL CAPSULE DELAYED RELEASE PARTICLES 705838 DULOXE ROSANNE HCL Inactive CYMBALTA 30 MG ORAL CAPSULE DELAYED RELEASE PARTICLES 1 daily wi th 60mg CYMBALTA 30 MG ORAL CAPSULE DELAYED RELEASE PARTICLES 878570 DULOXETINE HCL Inactive FLUTICASONE PROPIONATE 50 MCG/ACT NASAL SUSPENSION 1 t o 2 sprays each nostril twice a day FLUTICASONE PROPIONA TE 50 MCG/ACT NASAL SUSPENSION 3508640 FLUTICASONE PROPIONATE Inactive VITAMIN D3 1000 UNIT ORAL TABLET Take two daily 05/05 VITAMIN D3 1000 UNIT ORAL TABLET CHOLECALCIFEROL Inactive VITAMIN D3 1000 UNIT ORAL TABLET 1qd VITAMIN D3 1000 UNIT ORAL TABLET CHOLECALCIFEROL Inactive PROAIR HFA 108 (90 BASE) MCG/ACT INHALATION AEROSOL SO LUTION 2 puffs four times a day as needed PROAIR HFA 108 (90 B ASE) MCG/ACT INHALATION AEROSOL SOLUTION ALBUTEROL SULFATE Inactive FISH OIL 1200 MG ORAL CAPSULE One daily prn FISH OIL 1200 MG ORAL CAPSULE OMEGA-3 FATTY ACIDS Inactive PROBIOTIC ORAL CAPSULE Take one daily PROBIOTIC ORAL CAPSULE 9566374 PROBIOTIC PRODUCT Inactive ZYRTEC ALLERGY 10 MG ORAL CAPSULE 1qd ZYRTEC ALLERGY 10 MG ORAL CAPSULE CETIRIZINE HCL Inactive B-12 2000 MCG ORAL TABLET 1qd B-12 2000 MCG ORAL TABLET CYANOCOBALAMIN Inactive GREEN TEA SLIM ORAL TABLET Take one daily GREEN TEA SLIM ORAL TABLET MISC NATURAL PRODUCTS Inactive B-12 2500 MCG ORAL TABLET 1 daily B- 12 2500 MCG ORAL TABLET CYANOCOBALAMIN Inactive VICODIN 5-300 MG ORAL TABLET 1-2 tabs every 6hrs as needed for p ain VICODIN 5-300 MG ORAL TABLET HYDROCODONE-ACETAMI NOPHEN Inactive CENTRUM SILVER ADULT 50+ ORAL TABLET 1qd 2013 CENTRUM SILVER ADULT 50+ ORAL TABLET MULTIPLE VITAMINS-MINERALS Inactive CALCIUM 600 + D 600-200 MG-UNIT ORAL TABLET Take one daily CALCIUM 600 + D 600-200 MG-UNIT ORAL TABLET CALCIUM CARB-CHOLECALCIF MERY Inactive TUSSIONEX PENNKINETIC ER 10-8 MG/5ML ORAL SUSPENSION E XTENDED RELEASE 5ml po q12hr PRN Cough TUSSIONEX PENNKINETI C ER 10-8 MG/5ML ORAL SUSPENSION EXTENDED RELEASE HYDROCOD POLST-CHLORPHEN POLST I nactive ADK [id number] UNIT-MCG ORAL CAPSULE 1 daily 2 ADK [id number] UNIT-MCG ORAL CAPSULE VITAMINS A D K Inac tive Advance Directives Directive Description Start Date PERMISSION TO SHARE Immunizations Vaccine Administration Date Value Standard Servando cription influenza immunization (Flu Vax) has been administered 12/12 Done according to patient influenza immunization (Flu Vax) has been administered 04/16 Done according to patient Seasonal influenza vaccine, injectable, containing preservative, for > 3 years old (Afluria, FluLaval, Fluzone, Fluvirin, Fluarix, Agriflu(>= 18 yo)) Fluzone (>=3 yrs.) [XMT466] Seasonal influenza vaccine, injectable, containing preservative, for > 3 years old (Afluria, FluLaval, Fluzone, Fluvirin, Fluarix, Agriflu(>= 18 yo)) Fluzone (>3 yrs.) [[id number]] Seasonal influenza vaccine, injectable, containing preservative, for > 3 years old (Afluria, FluLaval, Fluzone, Fluvirin, Fluarix, Agriflu(>= 18 yo)) Fluarix (>3 yrs.) [[id number]] Diagnostic Results Date Name Value Unit Range Description Lab Report: CBC, Comp. Metabolic Panel, Lipid Panel, Magnesium - Chemistry sodium, serum 138 mmol/L [phone]/09/02 carbon dioxide, venous blood 28.0 mmol/L 21.0-32 [...] 0.20 mg/dL 0.00-1.00 cholesterol, serum 228 mg/dL [phone]/09/02 triglyceride, serum, fasting 236 mg/dL 30-200 HDL [...] 0.36-3.74 Encounters Code Encounter Date Provider Facility CPT-17395 97354: Ofc Vst-Est Level IV-Moderate MDM or 30-39 minutes 17:48:09 CDT Ashley Yang [facility] [place] CPT-62324 [id number] Vst-Est Level III 17:07:11 CDT Jenny Yang [facility] [place] CPT-74731 [id number] Vst-Est Level III 17:51:44 [employer]UG[employer] 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 Patient 11:09:39 CDT Viviana Rubio [facility] CPT-64024 [id number] Vst-Est Level IV 09:14:31 CDT Conchis Yang [facility] CPT-39691 [id number] Vst-Est Level III 22:05:50 CDT Jenny Yang [facility] CPT-10027 Level 3 Est. Patient 15:00:02 [employer] MACHINE OFFBEARER Will Avi jarquin [facility] CPT-75061 Level 2 Est. Patient 13:46:20 CDT Ashley Meraz [facility] [place] CPT-33135 Level 2 Est. Patient 13:45:36 CDT Ashley Meraz [facility] CPT-27921 Level 3 Est. Patient 15:52:07 CDT Ashley Meraz [facility] [place] CPT-22757 Level 3 Est. Patient 08:20:37 CDT Ashley Meraz [facility] [place] CPT-60086 Level 3 Est. Patient 15:06:41 CDT Derrick donaldson MD [facility] CPT-26666 Level 3 Est. Patient 11:13:21 [employer]UG[employer] MACHINE OFFBEARER Derrick donaldson MD [facility] CPT-04287 Level 3 Est. Patient 12:54:25 [employer]UG[employer] MACHINE OFFBEARER Ashley Meraz [facility] [place] CPT-70892 Level 3 Est. Patient 23:34:49 [employer]UG[employer] MACHINE OFFBEARER Ashley Meraz [facility] CPT-67752 Level 3 Est. Patient 16:37:09 [employer]UG[employer] MACHINE OFFBEARER Ashley Meraz [facility] CPT-35221 Level 3 Est. Patient 11:59:30 [employer]UG[employer] MACHINE OFFBEARER Ashley Meraz [facility] CPT-15794 Level 4 Est. Patient 07:40:13 CDT Wayne delatorre [facility] CPT-51703 Level 4 Est. Patient 08:06:18 CDT [facility] CPT-60735 Level 3 Est. Patient 11:14:45 CDT Wayne delatorre PA [facility] CPT-94410 Level 3 Est. Patient 10:14:55 CDT Wayne delatorre [facility] CPT-36952 Level 4 Est. Patient 15:23:47 CDT Wayne delatorre [facility] CPT-58185 Level 3 Est. Patient 07:50:51 AUG[employer] MACHINE OFFBEARER Wayne [facility]atorre [facility] CPT-86267 Level 3 Est. Patient 14:47:52 CDT Wayne delatorre [facility] CPT-76313 Level 3 Est. Patient 11:28:46 CDT Wayne delatorre [facility] CPT-41155 Level 4 Est. Patient 14:48:43 CDT [facility]PT-60064 Level 3 Est. Patient 14:10:18 AUG[employer] MACHINE OFFBEARER Wayne delatorre [facility] CPT-19779 Level 3 Est. Patient 16:44:33 [employer]UG[employer] MACHINE OFFBEARER [facility] CPT-82837 Level 4 Est. Patient 08:22:34 AUG[employer] MACHINE OFFBEARER Wayne delatorre [facility] CPT-06080 Level 4 Est. Patient 07:10:30 CDT [facility] CPT-84836 Level 3 Est. Patient 14:50:20 [employer]UG[employer] MACHINE OFFBEARER Wayne delatorre [facility] CPT-69410 Level 3 Est. Patient 09:46:08 AUG[employer] MACHINE OFFBEARER Zuleika cha APRN [facility] CPT-23024 Level 4 Est. Patient 07:56:24 AUG[employer] MACHINE OFFBEARER Wayne delatorre [facility] [place] [facility] CPT-90810 Level 3 Est. Patient 12:13:53 CDT Ismael Denton [facility] CPT-15396 Level 4 Est. Patient 12:28:51 [employer]UG[employer] MACHINE OFFBEARER Wayne delatorre [facility] CPT-20239 Level 3 Est. Patient 15:23:42 [employer]UG[employer] MACHINE OFFBEARER Wayne delatorre [facility] CPT-00674 Level 3 Est. Patient 06:34:33 [employer] MACHINE OFFBEARER Wayne delatorre [facility] Procedures Code Procedure Name Date Entry Date Standard Desc ription CPT-70811 Allergy Admin 2 16:06:08 CDT CPT-93883 Allergy Admin 2 16:51:42 CDT CPT-99903 Allergy Admin 2 16:26:50 CDT CPT-99646 Allergy Admin 2 17:02:53 CDT CPT-38244 Allergy Admin 2 16:32:35 CDT CPT-09470 Allergy Admin 2 16:26:27 CDT CPT-J3420 Vitamin B12 1000mcg (Cyanocobalamin) 16:32:13 CDT CPT-93556 Abx/Therapy Injection 16:32:13 CDT CPT-73957 Allergy Admin 2 16:32:12 CDT CPT-51748 Allergy Admin 2 16:05:03 CDT CPT-14468 Allergy Admin 2 16:35:15 CDT CPT-08405 Allergy Admin 2 16:20:41 CDT CPT-22567 Allergy Admin 2 11:25:21 CDT CPT-97317 Allergy Admin 2 15:46:12 CDT CPT-ZX0738C (4274F) Influenza immunization administe red or previously received 17:51:44 [employer]ACH[employer] OFFBEARER CPT-94650 Spec Collection and Handling Fee 10:45:[address] [id number]-[id number] (4274F) Influenza immunization administe red or previously received 10:20:17 CDT CPT-08728 Prv Med Est Pt 40-64yrs 16:26:57 CDT CPT-51655 Venipuncture Draw Fee 11:08:31 CDT CPT-15759 Magnesium - LAB USE ONLY 11:08:31 CDT 10/15 CPT-92229 TSH - LAB USE ONLY 11:08:31 CDT CPT-38065 Lipid - LAB USE ONLY 11:08:30 CDT 2 CPT-01836 CMP - LAB USE ONLY 11:08:30 CDT CPT-65546 CBC - LAB USE ONLY 11:08:30 CDT CPT-50496 Spec Collection and Handling Fee 16:14:51 C DT CPT-19373 UA w micro - LAB USE ONLY 16:14:51 CDT 2018 CPT-64379 Prv Med Est Pt 40-64yrs 08:34:49 CDT 10/01 CPT-97197 Sed Rate - LAB USE ONLY 10:50:49 CDT 10/02 CPT-38670 TSH - LAB USE ONLY 10:50:49 CDT CPT-24134 Lipid - LAB USE ONLY 10:50:49 CDT 0 CPT-52539 Magnesium - LAB USE ONLY 10:50:49 CDT 10/02 CPT-87772 CMP - LAB USE ONLY 10:50:49 CDT CPT-25982 CBC - LAB USE ONLY 10:50:49 CDT CPT-20713 Venipuncture Draw Fee 10:50:49 CDT CPT-53795 IV Hydration < or = 1 hr 22:05:50 CDT 04/16 CPT-J7030 Normal Saline 1000 mL 22:05:50 CDT CPT-85585 Abx/Therapy Injection 16:31:51 [employer]ACHINE OFFBEARER CPT-J2950 Phenergan 25 mg 16:31:51 [employer]ACHINE OFFBEARER CPT-85258 Abx/Therapy Injection 16:39:40 CDT CPT-07461 First Vx - Ix admin via ID I M or jet injects without counseling by physician 16:39:39 CDT CPT-03367 Prv Med Est Pt 40-64yrs 16:33:10 CDT 11/10 CPT-JTINJ Asp/Joint Injection 16:13:36 CDT CPT-74181 Allergy Admin 2 16:54:52 CDT CPT-29237 Allergy Admin 2 16:46:15 CDT CPT-03589 Allergy Admin 2 11:29:09 CDT CPT-85065 Allergy Admin 2 17:05:15 CDT CPT-35084 Allergy Admin 2 12:31:51 CDT CPT-93853 Allergy Admin 2 15:40:56 CDT CPT-27641 CBC - LAB USE ONLY 09:49:24 CDT CPT-01163 CMP - LAB USE ONLY 09:49:24 CDT CPT-75583 Lipid - LAB USE ONLY 09:49:24 CDT 8 CPT-20936 Venipuncture Draw Fee 09:49:24 CDT CPT-98372 Allergy Admin 2 10:46:11 CDT CPT-JTINJ Asp/Joint Injection 09:52:58 CDT CPT-06745 Skin tag rem 1-15 13:46:20 CDT CPT-84114 Knee, right, 3V - XRAY USE ONLY 13:07:09 CD T CPT-03221 Allergy Admin 2 11:56:38 CDT CPT-51707 Allergy Admin 2 12:00:55 CDT CPT-36829 Allergy Admin 2 16:42:13 CDT CPT-71776 Allergy Admin 2 16:27:55 CDT CPT-59055 Allergy Admin 2 13:24:26 CDT CPT-56483 Allergy Admin 2 17:17:57 [employer] MACHINE OFFBEARER CPT-05815 Allergy Admin 2 16:23:22 AUG[employer] MACHINE OFFBEARER CPT-23772 Allergy Admin 2 16:26:55 [employer]UG[employer] MACHINE OFFBEARER CPT-13493 Allergy Admin 2 16:32:33 AUG[employer] MACHINE OFFBEARER CPT-90711 Allergy Admin 2 17:43:40 [employer]UG[employer] MACHINE OFFBEARER CPT-11223 Allergy Admin 2 16:26:07 AUG[employer] MACHINE OFFBEARER CPT-38976 Allergy Admin 2 12:31:50 AUG[employer] MACHINE OFFBEARER CPT-30320 Allergy Admin 2 16:40:38 AUG[employer] MACHINE OFFBEARER CPT-92951 Allergy Admin 2 17:07:36 CDT CPT-G0008 Administration of Influenza Virus Vaccine 17:01:01 CDT CPT-01537 First Vx - Ix admin via ID I M or jet injects without counseling by physician 17:01:01 CDT CPT-27853 Allergy Admin 2 12:06:54 CDT CPT-92688 Allergy Admin 2 17:04:46 CDT CPT-73926 Allergy Admin 2 16:34:48 CDT CPT-21493 Allergy Admin 2 17:04:51 CDT CPT-98252 Allergy Admin 2 16:25:14 CDT CPT-38806 Allergy Admin 2 10:52:02 CDT CPT-59040 Allergy Admin 2 11:45:31 CDT CPT-92115 Allergy Admin 2 12:02:20 CDT CPT-45357 Allergy Admin 2 15:47:29 CDT CPT-37656 Allergy Admin 2 13:25:44 CDT CPT-86457 Allergy Admin 2 10:51:13 CDT CPT-50073 CBC - LAB USE ONLY 10:44:39 CDT CPT-12519 CMP - LAB USE ONLY 10:44:39 CDT CPT-80144 Lipid - LAB USE ONLY 10:44:39 CDT 9 CPT-04035 Venipuncture Draw Fee 10:44:38 CDT CPT-68412 Allergy Admin 2 12:25:22 CDT CPT-00519 Allergy Admin 2 12:41:34 CDT CPT-09894 Allergy Admin 2 15:29:46 CDT CPT-75844 Allergy Admin 2 14:46:53 CDT CPT-52713 Allergy Admin 2 14:16:16 CDT CPT-96347 Allergy Admin 2 16:55:26 CDT CPT-70173 Allergy Admin 2 10:12:02 CDT CPT-34400 Allergy Admin 2 14:53:56 CDT CPT-30265 Allergy Admin 2 17:01:54 CDT CPT-26878 Allergy Admin 2 09:36:02 CDT CPT-26068 Allergy Admin 2 16:53:26 [employer]UG[employer] MACHINE OFFBEARER CPT-84845 Allergy Admin 2 16:59:[address] [facility] CPT-07989 Allergy Admin 2 16:36:[address] [facility] CPT-53715 Allergy Admin 2 16:17:[address] [facility] CPT-98667 Allergy Admin 2 17:08:[address] [facility] CPT-35571 Allergy Admin 2 12:16:08 [employer] MACHINE OFFBEARER CPT-21297 Allergy Admin 2 16:47:30 [employer]UG[employer] MACHINE OFFBEARER CPT-20221 Allergy Admin 2 16:59:44 [employer] MACHINE OFFBEARER CPT-04223 Allergy Admin 2 12:48:53 [employer] MACHINE OFFBEARER CPT-46423 Allergy Admin 2 10:19:48 [employer] MACHINE OFFBEARER CPT-56957 Allergy Admin 2 12:40:17 [employer]UG[employer] MACHINE OFFBEARER CPT-35740 Abx/Therapy Injection 17:21:59 [employer] MACHINE OFFBEARER CPT-66949 First Vx - Ix admin via ID I M or jet injects without counseling by physician 17:21:57 [employer]UG[employer] MACHINE OFFBEARER CPT-17490 Allergy Admin 2 17:20:12 [employer] MACHINE OFFBEARER CPT-31226 Allergy Admin 2 11:12:50 [employer] MACHINE OFFBEARER CPT-78594 Allergy Admin 2 17:02:39 CDT CPT-64497 BMP - LAB USE ONLY 10:33:02 CDT CPT-38963 CBC - LAB USE ONLY 10:33:02 CDT CPT-36458 Venipuncture Draw Fee 10:33:02 CDT CPT-34490 Abx/Therapy Injection 12:29:08 CDT CPT-71586 Allergy Admin 2 10:39:48 CDT CPT-70115 Allergy Admin 2 10:55:47 CDT CPT-PV Prev. Care Visit 10:10:00 CDT CPT-52455 Allergy Admin 2 11:31:20 CDT CPT-26695 Allergy Admin 2 16:53:45 CDT CPT-56577 Allergy Admin 2 16:36:42 CDT CPT-26346 Allergy Admin 2 16:30:19 CDT CPT-26285 Allergy Admin 2 15:39:35 CDT CPT-83735 Allergy Admin 2 17:51:32 CDT CPT-79337 Allergy Admin 2 11:50:50 CDT CPT-PV Prev. Care Visit 14:09:05 CDT CPT-65411 Allergy Admin 2 13:37:39 CDT CPT-88541 Abx/Therapy Injection 12:17:43 CDT CPT-25237 Venipuncture Draw Fee 10:39:55 CDT CPT-71481 Allergy Admin 2 12:04:53 CDT CPT-73639 Allergy Admin 2 10:04:39 CDT CPT-47410 Allergy Admin 2 12:15:35 CDT CPT-50229 Allergy Admin 2 17:04:36 CDT CPT-50219 Allergy Admin 2 16:25:49 CDT CPT-26637 Allergy Admin 2 17:30:06 CDT CPT-30521 Allergy Admin 2 10:11:48 CDT CPT-55009 Allergy Admin 2 17:06:13 CDT CPT-76250 Abx/Therapy Injection 12:23:07 CDT CPT-J0702 Celestone 12 mg (Betamethasone) 12:23:07 CD T CPT-62750 Venipuncture Draw Fee 10:26:42 CDT CPT-65983 Allergy Admin 2 12:10:01 CDT CPT-38988 Allergy Admin 2 15:13:57 [employer] OFFBEARER CPT-80234 Allergy Admin 2 16:55:22 [employer]ACH[employer] OFFBEARER CPT-83872 Allergy Admin 2 10:13:46 [employer] OFFBEARER CPT-63238 Venipuncture Draw Fee 10:06:08 [employer] OFFBEARER CPT-00908 Allergy Admin 2 16:15:41 [employer]ACH[employer] OFFBEARER CPT-42546 Allergy Admin 2 16:40:21 [employer]ACH[employer] OFFBEARER CPT-85379 Allergy Admin 2 16:31:48 [employer]ACH[employer] OFFBEARER CPT-57207 Allergy Admin 2 16:38:26 [employer]ACH[employer] OFFBEARER CPT-64814 Allergy Admin 2 16:40:08 [employer]ACH[employer] OFFBEARER CPT-98578 Allergy Admin 2 08:34:27 [employer]ACH[employer] OFFBEARER CPT-85229 Allergy Admin 2 14:27:45 [employer]ACH[employer] OFFBEARER CPT-13807 Destruction bgn lsn up to 14 09:41:27 [employer]ACHINE OFFBEARER 2 CPT-27376 Allergy Admin 2 17:45:17 [employer] CPT-99070 Allergy Admin 2 14:59:03 [employer] CPT-40022 Allergy Admin 2 12:49:42 CDT CPT-79224 Administration single or combination vac cine inc oral 15:01:57 CDT CPT-99312 Fluzone Quadrivalent Intramuscular Suspe nsion 0.5 ML 15:01:57 CDT CPT-94001 Allergy Admin 2 15:07:08 CDT CPT-33170 Allergy Admin 2 15:39:01 CDT CPT-81822 Allergy Admin 2 17:40:11 CDT CPT-13136 Allergy Admin 2 16:07:08 CDT CPT-25983 Allergy Admin 2 16:08:07 CDT CPT-98837 Venipuncture Draw Fee 09:34:29 CDT CPT-74161 Allergy Admin 2 16:27:43 CDT CPT-79996 Allergy Admin 2 15:53:10 CDT CPT-52472 Allergy Admin 2 15:42:29 CDT CPT-88050 Allergy Admin 2 11:26:14 CDT CPT-63691 Allergy Admin 2 10:36:24 CDT CPT-51766 Allergy Admin 2 16:53:37 CDT CPT-01053 Allergy Admin 2 11:21:44 CDT CPT-04706 Allergy Admin 2 10:50:40 CDT CPT-77272 Allergy Admin 2 11:19:11 CDT CPT-33407 Venipuncture Draw Fee 11:12:25 CDT CPT-45914 Allergy Admin 2 11:14:51 CDT CPT-07996 Allergy Admin 2 16:53:11 CDT CPT-65521 Allergy Admin 2 11:45:56 CDT CPT-90377 Allergy Admin 2 12:51:39 CDT CPT-38891 Allergy Admin 2 12:08:56 CDT CPT-14059 Allergy Admin 2 15:29:45 CDT CPT-89229 Allergy Admin 2 16:34:01 CDT CPT-77981 Allergy Admin 2 16:36:46 CDT CPT-15654 Allergy Admin 2 15:19:16 CDT CPT-95453 Allergy Admin 2 16:13:25 CDT CPT-27857 Allergy Admin 2 17:06:17 CDT CPT-53761 Allergy Admin 2 10:42:10 [employer] CPT-43027 Allergy Admin 2 17:33:16 [employer] CPT-61917 Allergy Admin 2 10:53:30 [employer] CPT-07230 Allergy Admin 2 14:18:24 [employer] CPT-66345 Allergy Admin 2 10:18:29 [employer] CPT-82402 Allergy Admin 2 12:57:40 [employer] CPT-44243 Allergy Admin 2 16:53:33 [employer] CPT-62043 Allergy Admin 2 12:43:00 [employer] CPT-58370 Allergy Admin 2 13:14:09 [employer] CPT-93269 Pneumovax 23 Injection Injectable 25 MCG /0.5ML 09:51:29 [employer] CPT-G0009 Administration of Pneumococcal Vaccine 09:51:29 [employer] CPT-79569 Influenza split virus > age 3 09:51:29 [employer] CPT-G0008 Administration of Influenza Virus Vaccine 02/23 09:51:29 [employer] CPT-54197 Venipuncture Draw Fee 10:31:06 CDT CPT-J0702 Celestone 12 mg (Betamethasone) 11:34:17 CD T CPT-98606 Abx/Therapy Injection 11:34:17 CDT CPT-84692 Chest 2V Frontal and Lat 11:31:47 CDT 07/04 CPT-24296 Venipuncture Draw Fee 11:31:47 CDT CPT-29724 Allergy Admin 2 14:31:05 CDT CPT-55307 EKG Trac and Interp 08:42:32 CDT CPT-17818 Chest 2V Frontal and Lat 08:42:32 CDT 05/28 CPT-92896 Venipuncture Draw Fee 08:39:02 CDT CPT-61150 Allergy Admin 2 16:59:09 CDT CPT-52815 Allergy Admin 2 17:06:11 CDT CPT-07293 Allergy Admin 2 16:04:36 CDT CPT-29854 Venipuncture Draw Fee 16:32:44 [employer] CPT-06276 Venipuncture Draw Fee 10:54:37 [employer] CPT-93047 Allergy Admin 2 14:53:55 [employer] CPT-30261 Allergy Admin 2 10:23:58 [employer] CPT-18893 First Vx Component - Ix admi n via ID IM or jet inj without physician counseling 15:34:26 [employer] CPT-28867 Fluzone (>=3 yrs.) 15:34:26 [employer] CPT-54716 Allergy Admin 2 15:56:02 [employer] CPT-40331 Allergy Admin 2 11:08:58 [employer] CPT-31971 Allergy Admin 2 10:51:36 [employer] CPT-71463 Allergy Admin 2 15:38:19 [employer] CPT-64605 Allergy Admin 2 15:12:46 CDT CPT-91060 Allergy Admin 2 10:28:50 CDT CPT-96359 Allergy Admin 2 16:35:33 CDT CPT-01041 Allergy Admin 2 10:14:18 CDT CPT-85856 Abx/Therapy Injection 09:06:45 CDT CPT-J0702 Celestone 6 mg (Betamethasone) 09:06:45 CDT CPT-99343 Allergy Admin 2 15:51:15 CDT CPT-19295 Allergy Admin 2 10:40:16 CDT CPT-51041 Allergy Admin 2 16:35:55 CDT CPT-81916 Allergy Admin 2 13:12:52 CDT CPT-27216 Allergy Admin 2 16:06:50 CDT CPT-33516 Allergy Admin 2 11:04:24 CDT CPT-47570 Allergy Admin 2 10:44:50 CDT CPT-62502 Allergy Admin 2 15:13:40 CDT CPT-06492 Allergy Admin 2 15:00:03 CDT CPT-58948 Allergy Admin 2 10:37:38 CDT CPT-84565 Venipuncture Draw Fee 09:16:43 [employer] CPT-89406 Allergy Admin 2 11:15:59 [employer] CPT-57606 Postop F/U Visit 10:10:52 [employer] CPT-32125 Allergy Admin 2 13:05:05 [employer] CPT-28647 Postop F/U Visit 19:45:16 [employer] CPT-58934 Allergy Admin 2 11:52:35 [employer] CPT-33563 Allergy Admin 2 10:49:22 [employer] CPT-OV Office Visit 13:55:55 [employer] CPT-89866 Allergy Admin 2 12:54:28 [employer] CPT-OV Office Visit 14:04:48 [employer] CPT-24048 Venipuncture Draw Fee 10:29:14 [employer] CPT-08899 Allergy Admin 2 11:24:43 [employer] CPT-50807 Knee 3V 11:00:12 [employer] CPT-15097 C-Spine Min 4V 11:00:12 [employer] CPT-87581 Allergy Admin 2 13:38:40 [employer] CPT-48545 Venipuncture Draw Fee 11:33:37 CDT CPT-41989 Allergy Admin 2 15:34:37 CDT CPT-25289 Allergy Admin 2 14:11:42 CDT CPT-76538 Administration single or combination vac cine inc oral 12:51:42 CDT CPT-55147 Influenza split virus > age 3 12:51:42 CDT CPT-75877 Allergy Admin 2 11:58:43 CDT CPT-30708 Allergy Admin 2 11:29:32 CDT CPT-60753 Allergy Admin 2 10:55:19 CDT CPT-29556 Allergy Admin 2 12:38:54 CDT CPT-83186 Allergy Admin 2 13:01:47 CDT CPT-21317 Abx/Therapy Injection 12:41:18 CDT CPT-J0702 Celestone 12 mg (Betamethasone) 12:41:18 CD T CPT-33006 Abx/Therapy Injection 16:33:09 CDT CPT-J0702 Celestone 12 mg (Betamethasone) 16:33:09 CD T CPT-09148 Allergy Admin 2 15:49:09 CDT CPT-42535 Allergy Admin 2 12:08:56 CDT CPT-95728 Allergy Admin 2 12:19:10 CDT CPT-24608 Allergy Admin 2 12:46:56 CDT CPT-83290 Allergy Admin 2 15:05:13 CDT CPT-36727 Allergy Admin 2 15:36:20 CDT CPT-55263 Allergy Admin 2 09:58:47 [employer] CPT-82946 Allergy Admin 2 12:18:06 [employer] CPT-51266 Allergy Admin 2 10:01:48 [employer] CPT-51021 Allergy Admin 2 12:17:53 [employer] CPT-08733 Allergy Admin 2 10:06:44 [employer] CPT-45181 Allergy Admin 2 10:13:04 [employer] CPT-85646 Venipuncture Draw Fee 10:09:07 [employer] CPT-62506 Bone Density 12:24:51 [employer] CPT-68946 Allergy Admin 2 11:29:41 [employer] CPT-97380 Allergy Admin 2 16:07:15 [employer] CPT-34184 Breathing Treatment 06:34:33 [employer] CPT-J0702 Celestone 12 mg (Betamethasone) 06:34:33 CS T CPT-79028 Abx/Therapy Injection 06:34:33 [employer] CPT-92049 Breathing Tx 11:07:33 [employer] CPT-43510 Allergy Admin 2 10:02:33 CDT CPT-09680 Allergy Admin 2 10:02:33 CDT CPT-76740 Allergy Admin 2 15:26:19 CDT CPT-96333 Administration single or combination vac cine inc oral 15:41:12 CDT CPT-92468 Influenza split virus > age 3 15:41:12 CDT
--- OUTSIDE RECORDS SUMMARY | 2020-09-15 14:35 | XMS REPORT | Clinical Summary ---
Author Author Admin, Supriya Zuniga Organization [facility] Address Unknown Phone Unavailable Allergies, Adverse [...] Yang APRN Pruritus vulvae Active Ashley Yokum WEB PAGE DESIGNER Screening mammogram V76.12 Resolved Ashley Yokum A PRN Other screening mammogram Sinusitis, acute maxillary 461.0 Inactive 7 Ashley Yokum WEB PAGE DESIGNER Acute maxillary sinusitis Diarrhea, acute 787.91 Resolved Ashley Yokum WEB PAGE DESIGNER Diarrhea Vaginal candidiasis 112.1 Resolved Ashley Yokum A PRN Candidiasis of vulva and vagina Accidental fall E888.9 Resolved Ashley Yokum WEB PAGE DESIGNER Unspecified fall Contusion of left hand, initial encounter 923.20 Resol burak Ashley Yokum WEB PAGE DESIGNER Contusion of hand(s) Contusion of right upper arm, subsequent encounter V58.89 201 09/14/21 Resolved Ashley Yokum WEB PAGE DESIGNER Encounter for other specified a ftercare Ganglion cyst of left wrist 727.41 Active Derrick Younger MD Ganglion of joint Body Mass Index 31.0-31.9 Adult Resolved 2017 Ashley Yokum WEB PAGE DESIGNER Body Mass Index 31.0-31.9, adult Plantar fasciitis 728.71 Active Ashley Yokum WEB PAGE DESIGNER Plantar fascial fibromatosis Bronchitis, acute 466.0 Inactive Ashley Yokum APR N Acute bronchitis Body Mass Index 30.0-30.9 Adult Resolved 2017 Ashley Yokum WEB PAGE DESIGNER Body Mass Index 30.0-30.9, adult Allergic conjunctivitis, bilateral 372.14 Resolved 2 Ashley Yokum WEB PAGE DESIGNER Other chronic allergic conjunctivitis Skin tags; irritated/inflammed 701.9 Resolved 11/10 Ashley Yokum WEB PAGE DESIGNER Unspecified hypertrophic and atrophic co nditions of skin Body Mass Index 31.0-31.9 Adult Refinement 2017 Ashley Yokum WEB PAGE DESIGNER Body Mass Index 31.0-31.9, adult BMI 30-30.9 Refinement Ashley Yokum WEB PAGE DESIGNER Body Mass Index 31.0-31.9, adult BMI 31-31.9 Refinement Ashley Yokum WEB PAGE DESIGNER Body Mass Index 31.0-31.9, adult BMI 32-32.9 Refinement Lois Faith RN Body Mass Index 31.0-31.9, adult BMI 31-31.9 Active Viviana Rubio APRN-Julieta Body Mass Index 31.0-31.9, adult Major depression, recurrent, moderate 296.32 Active Ashley Yokum WEB PAGE DESIGNER Major depressive disorder, recurrent epi sode, moderate degree Obesity Class I (BMI 30-34.9) Active Ashley Y okum WEB PAGE DESIGNER Obesity, unspecified Nausea and vomiting 787.01 Resolved Ashley Yokum A PRN Nausea with vomiting Gastroenteritis acute 558.9 Resolved Ashley Yokum WEB PAGE DESIGNER Other and unspecified noninfectious gastroenteritis and colitis GERD 530.81 Active Ashley Yokum WEB PAGE DESIGNER E sophageal reflux Joint pain 719.40 Resolved Ashley Yokum WEB PAGE DESIGNER Pain in joint, site unspecified Preventive health care, adult V70.0 Inactive / Ashley Yokum WEB PAGE DESIGNER Routine general medical examination at a health care facility Blood in urine 599.70 Resolved Ashley Yokum WEB PAGE DESIGNER Hematuria, unspecified Other abnormal findings in urine Resolved Ashley Yokum WEB PAGE DESIGNER Urinary tract infection 599.0 Inactive Ashley Yok um WEB PAGE DESIGNER Urinary tract infection, site not specified Chafing of skin 709.8 Resolved Ashley Yokum WEB PAGE DESIGNER Other specified disorders of skin Preventive care V70.0 Active Supriya Betzaida A Routine general medical examination at a health care facility Gynecological examination, routine V72.3 Inactive 2 Ashley Yokum WEB PAGE DESIGNER Special investigations and e xaminations - Gynecological examination Near syncope 780.2 Resolved Ashley Yokum WEB PAGE DESIGNER Syncope and collapse Lightheadedness 780.4 Resolved Ashley Yokum WEB PAGE DESIGNER Dizziness and giddiness Headache 784.0 Resolved Ashley Yokum WEB PAGE DESIGNER Headache Sore throat 462 Resolved Ashley Yokum WEB PAGE DESIGNER Acute pharyngitis Sinusitis - acute 461.9 Resolved Ashley Yokum APR N Acute sinusitis, unspecified Tired all the time 780.79 Resolved Ashley Yokum AP RN Other malaise and fatigue Fatigue 780.79 Inactive Ashley Yokum WEB PAGE DESIGNER Other malaise and fatigue Preoperative examination V72.84 Active Ashley Yok um WEB PAGE DESIGNER Preoperative examination, unspecified Skin lesion 709.9 Active Ashley Yokum WEB PAGE DESIGNER Unspecified disorder of skin and subcutaneous tissue ABNORMAL WEIGHT GAIN ICD-783.1 Inactive Wayne Denys arms PA SINUSITIS ICD-473.9 Inactive Lois Deric WEB PAGE DESIGNER 2012 WHEEZING ICD-786.07 Inactive Lois Deric WEB PAGE DESIGNER 2012 UPPER RESPIRATORY INFECTION, ACUTE ICD-465.9 I nactive Lois Deric WEB PAGE DESIGNER NEED FOR DESENSITIZATION TO ALLERGENS ICD-V07.1 8 Inactive Ashley Yokum WEB PAGE DESIGNER OBESITY ICD-278.00 Inactive Wayne Harms PA CONTACT DERMATITIS DUE TO POISON ARANZA ICD-692.6 Inactive Lois Leos WEB PAGE DESIGNER NEED PROPHYLACTIC VACCINATION&INOCULATION FLU ICD-V04.81 Inactive Wayne Harms PA GERD ICD-530.81 Inactive Lois Leos WEB PAGE DESIGNER 03/22 LONG-TERM (CURRENT) USE OF OTHER MEDICATIONS ICD-V58.69 Inactive Wayne Harms PA ALLERGIC RHINITIS ICD-477.9 Inactive Lois mendieta WEB PAGE DESIGNER NECK PAIN ICD-723.1 Inactive Wayne Harms PA 06/15 DEGENERATIVE DISC DISEASE, CERVICAL SPINE ICD-722.4 Inactive Wayne Harms PA SKIN TAG ICD-701.9 Inactive Wayne Harms PA G E R D ICD-530.81 Inactive Lois Leos WEB PAGE DESIGNER CANDIDIASIS OF SKIN AND NAILS ICD-112.3 Inacti ve Wayne Harms PA AFTERCARE FOLLOW SURGERY MUSCULOSKEL SYSTEM NEC ICD-V58.78 Inactive Wayne Harms PA PHARYNGITIS ICD-462 Inactive Wayne Harms PA 05/03 OTHER SCREENING MAMMOGRAM ICD-V76.12 Inactive Wayne Harms PA DYSPAREUNIA, MILD ICD-625.0 Inactive Wayne Harm s PA CONTACT DERMATITIS DUE TO POISON ARANZA ICD-692.6 Inactive Wayne Harms PA Myalgia ICD-729.1 Inactive Wayne Harms PA Rheumatoid [...] Chondromalacia patella, 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 Inacti ve Beatriz Changger Chondromalacia patella, 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 Inactiv e Wayne Harms PA Allergic rhinitis, chronic ICD-477.9 Inactive Wayne Harms PA High risk meds ICD-V58.69 Inactive Wayne Harms PA Need for prophylactic vaccination and inoculation against in fluenza ICD-V04.81 Inactive Wayne Harms PA Onychomycosis -dermatophytosis, nail ICD-110.1 Inactive Wayne Harms PA Skin tags; irritated/inflammed ICD-701.9 Inact rancho Wayne Harms PA Cough ICD-786.2 Inactive Wayne Harms PA Sinusitis, chronic ICD-473.9 Inactive Ashley Mir yoni WEB PAGE DESIGNER Influenza like illness ICD-487.1 Inactive Wayne Moon PA Acute maxillary sinusitis ICD-461.0 Inactive Ashley Yoеленаum WEB PAGE DESIGNER Preventive health care ICD-V70.0 Inactive Jenny Merazum WEB PAGE DESIGNER Well women exam ICD-V72.3 Inactive Ashley Yoеленаum WEB PAGE DESIGNER Screening mammogram ICD-V76.12 Inactive Ashley Yoеленаum WEB PAGE DESIGNER Sinusitis, acute maxillary ICD-461.0 Inactive Ashley Yoеленаum WEB PAGE DESIGNER Diarrhea, acute ICD-787.91 Inactive Ashley Alejo m WEB PAGE DESIGNER Vaginal candidiasis ICD-112.1 Inactive Ashley gutierrez WEB PAGE DESIGNER Accidental fall ICD-E888.9 Inactive Ashley Alejo m WEB PAGE DESIGNER Contusion of left hand, initial encounter ICD-923.20 Inactive Ashley Merazum WEB PAGE DESIGNER Contusion of right upper arm, subsequent encounter ICD-V58.89 Inactive Ashley Yoеленаum WEB PAGE DESIGNER Body Mass Index 31.0-31.9 Adult Inac tive Ashley Yokum WEB PAGE DESIGNER Bronchitis, acute ICD-466.0 Inactive Ashley Meraz um WEB PAGE DESIGNER Body Mass Index 30.0-30.9 Adult Inac tive Ashley Yokum WEB PAGE DESIGNER Allergic conjunctivitis, bilateral ICD-372.14 I nactive Ashley Yokum WEB PAGE DESIGNER Skin tags; irritated/inflammed ICD-701.9 Inact rancho Ashley Yokum WEB PAGE DESIGNER Nausea and vomiting ICD-787.01 Inactive Ashley Yokum WEB PAGE DESIGNER Gastroenteritis acute ICD-558.9 Inactive Conchis hi Yokum WEB PAGE DESIGNER Preventive health care, adult ICD-V70.0 Inacti ve Ashley Yokum WEB PAGE DESIGNER Blood in urine ICD-599.70 Inactive Ashley Yokum WEB PAGE DESIGNER Other abnormal findings in urine [place] ctive Ashley Yokum WEB PAGE DESIGNER Urinary tract infection ICD-599.0 Inactive K athi Yokum WEB PAGE DESIGNER Chafing of skin ICD-709.8 Inactive Ashley Yokum WEB PAGE DESIGNER Gynecological examination, routine ICD-V72.3 I nactive Ashley Yokum WEB PAGE DESIGNER Near syncope ICD-780.2 Inactive Ashley Yokum AP RN Lightheadedness ICD-780.4 Inactive Ashley Yokum WEB PAGE DESIGNER Headache ICD-784.0 Inactive Ashley Yokum WEB PAGE DESIGNER 2020 Sore throat ICD-462 Inactive Ashley Yokum WEB PAGE DESIGNER 02/17/17 Sinusitis - acute ICD-461.9 Inactive Ashley Yok um WEB PAGE DESIGNER Tired all the time ICD-780.79 Inactive Ashley gutierrez WEB PAGE DESIGNER Fatigue ICD-780.79 Inactive Ashley Merazum WEB PAGE DESIGNER 2020 Runny nose ICD-472.0 Inactive Ashley Merazum WEB PAGE DESIGNER Joint pain ICD-719.40 Inactive Ashley Yang APR N Medication List Medication Instructions Start Date Stop Date Generic Name NDC Status Provider Patient Instruction PHENTERMINE HCL 37.5 MG TABS 1 TAB IN MORING. TAKE 30 MIN BEFORE BREAKFAST OR 2 HRS AFTER BREAKFAST PHENTERMINE HCL 41382135850 Active Ashley Yang APRN Active ADK [id number] UNIT-MCG ORAL CAPSULE 1 daily 2 VITAMINS A D K 62732102638 No Longer Active Ashley Yang WEB PAGE DESIGNER Active EQ LORATADINE 10 MG ORAL TABLET TAKE 1 TABLET BY MOUTH ONCE DAILY NEEDED FOR ALLERGIES LORATADINE 21177482550 Active Shanelle Nicole RN Active ALPRAZOLAM 0.25 MG TABS TAKE 1 TO 2 TABLETS BY MOUTH THREE TIMES DAILY NEEDED ALPRAZOLAM 81942079262 Active Shanelle Nicole RN Active MUCINEX D 60-600 MG ORAL TABLET EXTENDED RELEASE 12 HO UR 1 po BID PRN Congestion PSEUDOEPHEDRINE-GUAIFENESIN 70540112465 Active Ashley Yang WEB PAGE DESIGNER Active ZYRTEC ALLERGY 10 MG ORAL CAPSULE 1qd CETIR IZINE HCL 24007655597 No Longer Active Ashley Yang WEB PAGE DESIGNER Active HAIR, SKIN, NAILS VITAMINS take 1 tab by mouth 2x a day HAIR, SKIN, NAILS VITAMINS Active Ashley Merazum WEB PAGE DESIGNER Active CENTRUM SILVER FOR WOMEN OVER 50 1 tab by mouth by day. CENTRUM SILVER FOR WOMEN OVER 50 Active Ashley Yang WEB PAGE DESIGNER Active VITAMIN D3 1000 UNIT ORAL CAPSULE 1 po qd CH OLECALCIFEROL 03632999844 Active Ashley Yang WEB PAGE DESIGNER Active PREDNISONE 20 MG ORAL TABLET Take 2 tablets by mouth d aily for 2 days then 1 tablet daily for 2 days. PREDNISONE 08859689115 No Longer Active Ashley Yang WEB PAGE DESIGNER Active MELOXICAM 15 MG ORAL TABLET TAKE 1 TABLET BY MOUTH IN THE MORNING 2 MELOXICAM 53025871796 Active Shanelle Rivera RN Active SIMVASTATIN 40 MG ORAL TABLET TAKE 1 TABLET BY MOUTH ONCE DA JAVON AT BEDTIME SIMVASTATIN 96198250342 Active LARRY Murillo Active [id number] ORAL TABLET MULT IPLE MINERALS 78126354186 Active Lois Faith RN Active SERTRALINE HCL 100 MG ORAL TABLET Take 1 tablet by mouth once da javon SERTRALINE HCL 45543722948 Active LARRY Murillo A ctive REGLAN 10 MG ORAL TABLET 1 po qid for bowels 3 METOCLOPRAMIDE HCL 65088872725 No Longer Active Ashley Yang ELAINA A ctive B-12 2500 MCG ORAL TABLET 1 daily CYANOCOBAL HUNT 50446150894 No Longer Active Ashley Yang ELAINA Active ESTRADIOL 2 MG TABS Take 1 tablet by mouth once daily ESTRADIOL 16842064288 Active hSanelle Rivera RN Active MACROBID 100 MG ORAL CAPSULE 1 cap by mouth twice daily NITROFURANTOIN MONOHYD MACRO 55119544835 No Longer Active Ashley Yang ELAINA Active FISH OIL + D3 4461-1501 MG-UNIT ORAL CAPSULE 1 dailly 4 FISH OIL-CHOLECALCIFEROL 36793373951 Active Ashleykaleigh Merazum WEB PAGE DESIGNER Acti ve PROAIR HFA 108 (90 BASE) MCG/ACT INHALATION AEROSOL SO LUTION 2 puffs four times a day as needed ALBUTEROL SULFATE 88374350728 No Long er Active Ashley Yang WEB PAGE DESIGNER Active ZITHROMAX Z-SANJANA 250 MG ORAL TABLET Take 2 tablets toda y and 1 each day till gone AZITHROMYCIN 56747757412 No Longer Active Ashley Yokum WEB PAGE DESIGNER Active POLYTRIM 83771-3.1 UNIT/ML-% OPHTHALMIC SOLUTION 1 gtt to affected eye q3h x 7 days POLYMYXIN B-TRIMETHOPRIM 51170748201 No Longer Active Ashley Yokum WEB PAGE DESIGNER Active IBUPROFEN 200 MG ORAL TABLET Take 3 tablets every 6hrs 201 09/17/15 IBUPROFEN 23519395149 No Longer Active Ashley Yokum WEB PAGE DESIGNER Active DIFLUCAN 150 MG ORAL TABLET Take one tablet today and repeat in 72 hours FLUCONAZOLE 38230032554 No Longer Active Derrick cardenas MD Active DIFLUCAN 150 MG ORAL TABLET 1 by mouth for yeast 03/03 FLUCONAZOLE 44219634331 No Longer Active Ashley Yokum WEB PAGE DESIGNER Active AUGMENTIN 875-125 MG ORAL TABLET Take one tablet twice a day with food AMOXICILLIN-POT CLAVULANATE 45478270019 No Longer Act rancho Ashley Yokum WEB PAGE DESIGNER Active CALCIUM 600 + D 600-200 MG-UNIT ORAL TABLET Take one daily CALCIUM CARB-CHOLECALCIFEROL 41189255721 No Longer Active Ashley Yokum WEB PAGE DESIGNER Active FLONASE 50 MCG/ACT NASAL SUSPENSION 1 spray each nostr il twice daily for allergies and runny nose FLUTICASONE PROPIONATE 44285080287 No Longer Active Ashley Yokum WEB PAGE DESIGNER Active CLARITIN-D 12 HOUR 5-120 MG ORAL TABLET EXTENDED RELEA SE 12 HOUR Take one tablet BID as needed for allergies LORATADINE-PSEUDOEP HEDRINE 63686378365 No Longer Active Beth Naff ELECTRICAL INSPECTOR Active AMOXICILLIN-POT CLAVULANATE 875-125 MG ORAL TABLET 1 pill by mouth twice daily AMOXICILLIN-POT CLAVULANATE 01456273363 No Longer Act rancho Ashley Yokum WEB PAGE DESIGNER Active AMOXICILLIN 500 MG ORAL CAPSULE Take 1 capsule by mout h three times a day X 10 days AMOXICILLIN 38810354404 No Longer Active Wayne H arms PA Active PROBIOTIC DAILY ORAL CAPSULE Take one daily PROBIO TIC PRODUCT 69993157268 Active Wayne Harms PA Active TYLENOL 325 MG ORAL TABLET Take 2 every 6hrs prn A CETAMINOPHEN 82146912249 Active Wayne Harms PA Active ACETAMINOPHEN 500 MG ORAL TABLET prn RICH TAMINOPHEN 44671575390 No Longer Active Wayne Harms PA Active CLARITIN-D 12 HOUR 5-120 MG ORAL TABLET EXTENDED RELEA SE 12 HOUR Take one tablet bid LORATADINE-PSEUDOEPHEDRINE 97819195604 No Longe r Active Wayne Harms PA Active MOBIC 15 MG ORAL TABLET 1 tablet by mouth daily in am with PPI 2 MELOXICAM 12773471646 No Longer Active Wayne Harms PA Acti ve HYDROCORTISONE 2.5 % EXTERNAL CREAM Apply three times a day to affected area HYDROCORTISONE 23247384276 No Longer Active Wayne Harms PA Active VITAMIN D3 1000 UNIT ORAL TABLET Take two daily CHOLECALCIFEROL 91886872983 No Longer Active Wayne Harms PA Active PROBIOTIC ORAL CAPSULE Take one daily PROBIOTIC PRODUCT 87229529492 No Longer Active Wayne Harms PA Active GREEN TEA SLIM ORAL TABLET Take one daily MISC NATURAL PRODUCTS 82941380593 No Longer Active Wayne Harms PA Active BENZONATATE 200 MG ORAL CAPSULE Take one capsule three times a d ay BENZONATATE 13087367687 No Longer Active Wayne Harms PA Act rancho ZITHROMAX Z-SANJANA 250 MG ORAL TABLET 2 today, then 1 daily for 4 d ays AZITHROMYCIN 66326429402 No Longer Active Wayne Harms PA Ac tive ZITHROMAX 250 MG ORAL TABLET 2 po today, then 1 po q days 2-5 20 31/03/18 AZITHROMYCIN 93179765702 No Longer Active Bteh Turner ELECTRICAL INSPECTOR Active OMEPRAZOLE 20 MG ORAL CAPSULE DELAYED RELEASE 1 tablet by mo uth daily OMEPRAZOLE 96412883250 Active Supriya Huston RMA Active ZITHROMAX Z-SANJANA 250 MG ORAL TABLET 2x1day,[id number] 2014 AZITHROMYCIN 80267236698 No Longer Active Wayne Harms PA Active FISH OIL 1200 MG ORAL CAPSULE One daily prn OME GA-3 FATTY ACIDS 10636622938 No Longer Active Wayne Harms PA Active CEPHALEXIN 250 MG ORAL CAPSULE Take one tablet qid 201 05/25/29 CEPHALEXIN 21534230882 No Longer Active Wayne Harms PA Active VITAMIN D3 1000 UNIT ORAL TABLET 1qd CHOLEC ALCIFEROL 32296843579 No Longer Active Wayne Harms PA Active B-12 2000 MCG ORAL TABLET 1qd CYANOCOBALAMI N 24833016998 No Longer Active Wayne Harms PA Active ACIPHEX 20 MG ORAL TABLET DELAYED RELEASE 1qd 10/28 RABEPRAZOLE SODIUM 50354000514 No Longer Active Wayne Harms PA Active HYDROCORTISONE 2.5 % EXTERNAL CREAM apply 3-4 times a day to affected area HYDROCORTISONE 43309116752 No Longer Active Wayne Harms PA Active MUCINEX 600 MG ORAL TABLET EXTENDED RELEASE 12 HOUR 2qd GUAIFENESIN 47306520547 No Longer Active Wayne Harms PA Active TUSSIONEX PENNKINETIC ER 10-8 MG/5ML ORAL SUSPENSION E XTENDED RELEASE 5ml po q12hr PRN Cough HYDROCOD POLST-CHLORPHEN POLST 5 2861946378 No Longer Active Wayne Harms PA Active ZITHROMAX 250 MG ORAL TABLET 2 po today, then 1 po q days 2-5 20 26/06/21 AZITHROMYCIN 78735612982 No Longer Active Wayne Harms PA Ac tive CLARITIN 10 MG ORAL TABLET one tablet daily THEO ATADINE 97998171377 No Longer Active Wayne Harms PA Active FLAGYL 500 MG ORAL TABLET 1 tablet by mouth three times daily 20 28/05/03 METRONIDAZOLE 83128146034 No Longer Active Wayne Harms PA A ctive CHERATUSSIN AC 100-10 MG/5ML ORAL SYRUP one teaspoon qid. 9 GUAIFENESIN-CODEINE 58489353292 No Longer Active Wayne Harms PA Act rancho VITAMIN D 1000 UNIT ORAL TABLET 1qd CHOLECA LCIFEROL 96282951086 No Longer Active Wayne Harms PA Active CYMBALTA 60 MG ORAL CAPSULE DELAYED RELEASE PARTICLES 1 cap by mouth daily DULOXETINE HCL 13681088829 No Longer Active Wayne Harms PA Active AMOXICILLIN 500 MG ORAL CAPSULE 2 caps tid for 10days AMOXICILLIN 14678928165 No Longer Active Wayne Harms PA Active CALCIUM + D 600-200 MG-UNIT TABS Take one by mouth daily CALCIUM CARBONATE-VITAMIN D 55252393551 No Longer Active Wayne Harms PA Active CENTRUM SILVER ADULT 50+ ORAL TABLET 1qd 2013 MULTIPLE VITAMINS-MINERALS 92905416189 No Longer Active Wayne Harms PA Active VENLAFAXINE HCL 75 MG ORAL TABLET 1tid VE NLAFAXINE HCL 83456564243 No Longer Active Wayne Harms PA Active CLARITIN 10 MG ORAL TABLET 1 tablet by mouth daily as needed for allergies LORATADINE 50734352814 No Longer Active Wayne Harms PA Acti ve HYDROCORTISONE 2.5 % EXTERNAL CREAM Apply four times a day to af fected area HYDROCORTISONE 08885089182 No Longer Active Wayne Harms PA Active ZITHROMAX 250 MG ORAL TABLET 2 po today, then 1 po q days 2-5 20 26/02/30 AZITHROMYCIN 56602450165 No Longer Active Wayne Harms PA Ac tive ZITHROMAX 250 MG ORAL TABLET 2 po today, then 1 po q days 2-5 20 27/02/16 AZITHROMYCIN 20442035599 No Longer Active Wayne Harms PA Ac tive CYMBALTA 30 MG ORAL CAPSULE DELAYED RELEASE PARTICLES 3 caps daily DULOXETINE HCL 61597485350 No Longer Active Wayne Harms PA Active CYMBALTA 60 MG ORAL CAPSULE DELAYED RELEASE PARTICLES one tablet daily, takes 30mg. with 60mg. to make 90 mg. DULOXETINE HCL 79669663087 No Longer Active Wayne Harms PA Active CYMBALTA 30 MG ORAL CAPSULE DELAYED RELEASE PARTICLES 1 daily wi th 60mg DULOXETINE HCL 83978856825 No Longer Active Wayne Harms PA Active ZITHROMAX 250 MG ORAL TABLET 2 po today, then 1 po q days 2-5 20 26/12/21 AZITHROMYCIN 01193740613 No Longer Active Ismael YANG Active PREDNISONE 20 MG ORAL TABLET 3tab x 2days,2tab x 2days ,1tab x 2days,1/2tab x 2days PREDNISONE 32036433313 No Longer Active Wayne Chuy YANG Active PREMARIN 0.625 MG ORAL TABLET Take one by mouth daily ESTROGENS CONJUGATED 78217075477 No Longer Active Wayne Harms PA Active ZITHROMAX 250 MG ORAL TABLET 2 po today, then 1 po q days 2-5 20 26/06/19 AZITHROMYCIN 00429196216 No Longer Active Nereyda Isaacs Activ e OMEGA-3 1000 MG ORAL CAPSULE 2qd OMEGA-3 FA TTY ACIDS 33849500519 No Longer Active Wayne Harms PA Active BENADRYL ITCH STOPPING 1-0.1 % EXTERNAL CREAM prn DIPHENHYDRAMINE- ZINC ACETATE 70734603719 No Longer Active Wayne Harms PA Active LOTRISONE 1-0.05 % EXTERNAL CREAM Apply bid CLOTRIMAZOLE-BETAMETHASONE 92078416958 No Longer Active Wayne Harms PA Active ZITHROMAX Z-SANJANA 250 MG ORAL TABLET take as directed 20 26/04/19 AZITHROMYCIN 51856881908 No Longer Active Wayne Harms PA Active NYSTATIN 251249 UNIT/GM EXTERNAL POWDER Apply to affected areas BID NYSTATIN 71931571898 No Longer Active Wayne Harms PA Acti ve BENADRYL 25 MG ORAL CAPSULE prn DIPHENHYDRAMINE HCL 74051181299 Active Wayne Harms PA Active LOTRISONE 1-0.05 % EXTERNAL CREAM apply twice a day 20 25/02/17 CLOTRIMAZOLE-BETAMETHASONE 04231612572 No Longer Active Wayne Harms PA Active HYDROCODONE-ACETAMINOPHEN 5-325 MG ORAL TABLET 1-2 every 4hr s prn pain HYDROCODONE-ACETAMINOPHEN 64088920105 No Longer Activ e Wayne Harms PA Active VICODIN 5-300 MG ORAL TABLET 1-2 tabs every 6hrs as needed for p ain HYDROCODONE-ACETAMINOPHEN 07342176901 No Longer Active Wayne Harms PA Active BENADRYL 25 MG ORAL CAPSULE 1prn DIPHENHYDRA MINE HCL 71427610221 No Longer Active Jillina Frazell WEB PAGE DESIGNER Active ROBITUSSIN DM 100-10 MG/5ML ORAL SYRUP 2 teaspoons four times a day DEXTROMETHORPHAN-GUAIFENESIN 69834591021 No Longer Active Jillina Frazell WEB PAGE DESIGNER Active ACIPHEX 20 MG ORAL TABLET DELAYED RELEASE Take one by mouth daily RABEPRAZOLE SODIUM 13557202615 No Longer Active Jillina Frazell WEB PAGE DESIGNER Active TUMS 500 MG ORAL TABLET CHEWABLE prn SADIQ CIUM CARBONATE ANTACID 04966756546 No Longer Active Jillina Frazell WEB PAGE DESIGNER Active PEPTO-BISMOL 524 MG/30ML ORAL SUSPENSION prn 02/26 BISMUTH SUBSALICYLATE 04003559007 No Longer Active Jillina Frazell WEB PAGE DESIGNER Active BACTRIM DS 800-160 MG ORAL TABLET 1bid SULFAMETHOXAZOLE-TRIMETHOPRIM 76375922341 No Longer Active Beth Naff ELECTRICAL INSPECTOR Active GAVISCON EXTRA RELIEF FORMULA CHEW prn A LUM HYDROXIDE-MAG CARBONATE CHEW 55052945532 Active Wayne Harms PA Active DIFLUCAN 150 MG ORAL TABLET 1stat FLUCONAZOL E 78865667406 No Longer Active Wayne Harms PA Active AUGMENTIN 875-125 MG ORAL TABLET 1 tab by mouth twice daily with food AMOXICILLIN-POT CLAVULANATE 44184215210 No Longer Act rancho Wayne Harms PA Active FLUTICASONE PROPIONATE 50 MCG/ACT NASAL SUSPENSION 1 t o 2 sprays each nostril twice a day FLUTICASONE PROPIONATE 77402341418 No Lo nger Active Wayne Harms PA Active HYDROCORTISONE 2.5 % EXTERNAL CREAM apply 2-4 times a day, a s directed, prn HYDROCORTISONE 69916831061 No Longer Active Wayne Harms PA Active ZITHROMAX Z-SANJANA 250 MG ORAL TABLET A ZITHROMYCIN 85373628770 No Longer Active Wayne Harms PA Active SIMVASTATIN 40 MG ORAL TABLET one tablet daily SIMVASTATIN 28473683663 No Longer Active Misty Yoo ELECTRICAL INSPECTOR Active LOVASTATIN 40 MG ORAL TABLET Take one by mouth daily 12/11 LOVASTATIN 93598031378 No Longer Active Misty Yoo ELECTRICAL INSPECTOR Active PREDNISONE 20 MG ORAL TABLET 2 PO qd x 2d, 1 PO qd x 2d, 1/2 PO qd x 2d PREDNISONE 75585476082 No Longer Active Ismael silva PA Active ZITHROMAX 250 MG ORAL TABLET two tablets now and one daily x 4 d ays AZITHROMYCIN 19425371730 No Longer Active Misty Yoo LPN Active ZOLPIDEM TARTRATE 10MG TABS (ZOLPIDEM TARTRATE) 1 at bedtime as needed Active Supriya Huston RMA Active CLOBETASOL PROPIONATE 0.05 % EXTERNAL CREAM apply as directed CLOBETASOL PROPIONATE 39662573764 No Longer Active Wayne Harms PA A ctive CYMBALTA 30 MG ORAL CAPSULE DELAYED RELEASE PARTICLES takes 90mg qod alt with 60mg DULOXETINE HCL 25585947322 No Longer Active Wayne Harm s PA Active ZITHROMAX 250 MG ORAL TABLET 2 po today, then 1 po q days 2-5 20 12/24/14 AZITHROMYCIN 07571113622 No Longer Active Wayne Harms PA Ac tive TRIAMCINOLONE ACETONIDE 0.1 % EXTERNAL CREAM apply qid TRIAMCINOLONE ACETONIDE 56636204157 No Longer Active Wayne Harms PA Active ALPRAZOLAM 0.25 MG ORAL TABLET 1 tab three times a day 201 02/23/14 ALPRAZOLAM 10576537486 No Longer Active Wayne Harms PA Active ZOLPIDEM TARTRATE 5 MG ORAL TABLET 1 at bedtime as needed ZOLPIDEM TARTRATE 39541344555 No Longer Active Beth Turner ELECTRICAL INSPECTOR Active ACETAMINOPHEN 500 MG ORAL TABLET prn ACETAMINOPHEN 500 MG ORAL TABLET 844768 ACETAMINOPHEN Inactive ALPRAZOLAM 0.25 MG ORAL TABLET 1 tab three times a day ALPRAZOLAM 0.25 MG ORAL TABLET 031880 ALPRAZOLAM Inactive AMOXICILLIN 500 MG ORAL CAPSULE Take 1 capsule by mout h three times a day X 10 days AMOXICILLIN 500 MG ORAL CAPSULE 553298 AMOX ICILLIN Inactive AMOXICILLIN 500 MG ORAL CAPSULE 2 caps tid for 10days AMOXICILLIN 500 MG ORAL CAPSULE 065759 AMOXICILLIN Inactive BACTRIM DS 800-160 MG ORAL TABLET 1bid BACTRIM DS 800-160 MG ORAL TABLET 151320 SULFAMETHOXAZOLE-TRIMETHOPRIM Inactive BENADRYL 25 MG ORAL CAPSULE 1prn BENADRYL 25 MG ORAL CAPSULE DIPHENHYDRAMINE HCL Inactive CHERATUSSIN AC 100-10 MG/5ML ORAL SYRUP one teaspoon qid. 9 CHERATUSSIN AC 100-10 MG/5ML ORAL SYRUP GUAIFENESIN-CODEINE Inactive CLARITIN 10 MG ORAL TABLET one tablet daily CLARITIN 10 MG ORAL TABLET 983068 LORATADINE Inactive CLARITIN 10 MG ORAL TABLET 1 tablet by mouth daily as needed for allergies CLARITIN 10 MG ORAL TABLET 388298 LORATADINE Inact [place] FLAGYL 500 MG ORAL TABLET 1 tablet by mouth three times daily 20 28/05/03 FLAGYL 500 MG ORAL TABLET 098097 METRONIDAZOLE Inacti ve HYDROCORTISONE 2.5 % EXTERNAL CREAM apply 3-4 times a day to affected area HYDROCORTISONE 2.5 % EXTERNAL CREAM 370495 HYDRO CORTISONE Inactive HYDROCORTISONE 2.5 % EXTERNAL CREAM Apply three times a day to affected area HYDROCORTISONE 2.5 % EXTERNAL CREAM 751724 HYDRO CORTISONE Inactive HYDROCORTISONE 2.5 % EXTERNAL CREAM Apply four times a day to af fected area HYDROCORTISONE 2.5 % EXTERNAL CREAM 710191 HYDROCORTISO NE Inactive HYDROCORTISONE 2.5 % EXTERNAL CREAM apply 2-4 times a day, a s directed, prn HYDROCORTISONE 2.5 % EXTERNAL CREAM 923596 HYDRO CORTISONE Inactive IBUPROFEN 200 MG ORAL TABLET Take 3 tablets every 6hrs IBUPROFEN 200 MG ORAL TABLET 227355 IBUPROFEN Inactive LOTRISONE 1-0.05 % EXTERNAL CREAM apply twice a day 25/02/17 LOTRISONE 1- 0.05 % EXTERNAL CREAM CLOTRIMAZOLE-BETAMETHASONE Inactive LOTRISONE 1-0.05 % EXTERNAL CREAM Apply bid LOTRISONE 1- 0.05 % EXTERNAL CREAM CLOTRIMAZOLE-BETAMETHASONE Inactive MACROBID 100 MG ORAL CAPSULE 1 cap by mouth twice daily MACROBID 100 MG ORAL CAPSULE 0966461 NITROFURANTOIN MONOHYD MACRO In active POLYTRIM 16808-8.1 UNIT/ML-% OPHTHALMIC SOLUTION 1 gtt to affected eye q3h x 7 days POLYTRIM 37357-9.1 UNIT/ML-% OPH THALMIC SOLUTION 955621 POLYMYXIN B-TRIMETHOPRIM Inactive PREDNISONE 20 MG ORAL TABLET 2 PO qd x 2d, 1 PO qd x 2d, 1/2 PO qd x 2d PREDNISONE 20 MG ORAL TABLET 126705 PREDNISONE Inactive PREDNISONE 20 MG ORAL TABLET Take 2 tablets by mouth d aily for 2 days then 1 tablet daily for 2 days. PREDNISONE 20 MG ORAL T ABLET 335937 PREDNISONE Inactive PREDNISONE 20 MG ORAL TABLET 3tab x 2days,2tab x 2days ,1tab x 2days,1/2tab x 2days PREDNISONE 20 MG ORAL TABLET 219258 PREDNIS ONE Inactive PREMARIN 0.625 MG ORAL TABLET Take one by mouth daily PREMARIN 0.625 MG ORAL TABLET ESTROGENS CONJUGATED Inactive REGLAN 10 MG ORAL TABLET 1 po qid for bowels 3 REGLAN 10 MG ORAL TABLET 075298 METOCLOPRAMIDE HCL Inactive ROBITUSSIN DM 100-10 MG/5ML ORAL SYRUP 2 teaspoons four times a day ROBITUSSIN DM 100-10 MG/5ML ORAL SYRUP DEXTROMET HORPHAN-GUAIFENESIN Inactive TRIAMCINOLONE ACETONIDE 0.1 % EXTERNAL CREAM apply qid TRIAMCINOLONE ACETONIDE 0.1 % EXTERNAL CREAM 2190501 TRIAMCINOLONE A CETONIDE Inactive TUMS 500 MG ORAL TABLET CHEWABLE prn TUMS 500 MG ORAL TABLET CHEWABLE 996854 CALCIUM CARBONATE ANTACID Inactive CEPHALEXIN 250 MG ORAL CAPSULE Take one tablet qid 201 05/25/29 CEPHALEXIN 250 MG ORAL CAPSULE 742754 CEPHALEXIN Inactive CLOBETASOL PROPIONATE 0.05 % EXTERNAL CREAM apply as directed CLOBETASOL PROPIONATE 0.05 % EXTERNAL CREAM 018314 CLOBETASOL PROPI KELVIN Inactive LOVASTATIN 40 MG ORAL TABLET Take one by mouth daily 2 LOVASTATIN 40 MG ORAL TABLET 574648 LOVASTATIN Inactive SIMVASTATIN 40 MG ORAL TABLET one tablet daily SIMVASTATIN 40 MG ORAL TABLET 814186 SIMVASTATIN Inactive VENLAFAXINE HCL 75 MG ORAL TABLET 1tid VENLAFAXINE HCL 75 MG ORAL TABLET 755780 VENLAFAXINE HCL Inactive PEPTO-BISMOL 524 MG/30ML ORAL SUSPENSION prn PEPTO-BISMOL 524 MG/30ML ORAL SUSPENSION BISMUTH SUBSALICYLATE Inactive DIFLUCAN 150 MG ORAL TABLET 1stat DIFLUCAN 150 MG ORAL TABLET 501392 FLUCONAZOLE Inactive DIFLUCAN 150 MG ORAL TABLET 1 by mouth for yeast 03/03 DIFLUCAN 150 MG ORAL TABLET 072133 FLUCONAZOLE Inactive DIFLUCAN 150 MG ORAL TABLET Take one tablet today and repeat in 72 hours DIFLUCAN 150 MG ORAL TABLET 443568 FLUCONAZOLE Inactive VITAMIN D 1000 UNIT ORAL [...] 20 12/24/14 ZITHROMAX 250 MG ORAL TABLET 738353 AZITHROMYCIN [facility] ZITHROMAX 250 MG ORAL TABLET two tablets now and one daily x 4 d ays ZITHROMAX 250 MG ORAL TABLET 518811 AZITHROMYCIN [facility] ZITHROMAX 250 MG ORAL TABLET 2 po today, then 1 po q days 2-5 20 26/12/21 ZITHROMAX 250 MG ORAL TABLET 854176 AZITHROMYCIN [facility] ZITHROMAX 250 MG ORAL TABLET 2 po today, then 1 po q days 2-5 20 27/02/16 ZITHROMAX 250 MG ORAL TABLET 077385 AZITHROMYCIN [place] [facility] ZITHROMAX 250 MG ORAL TABLET 2 po today, then 1 po q days 2-5 20 26/02/30 ZITHROMAX 250 MG ORAL TABLET 929092 AZITHROMYCIN [place] [facility] ZITHROMAX 250 MG ORAL TABLET 2 po today, then 1 po q days 2-5 20 26/06/21 ZITHROMAX 250 MG ORAL TABLET 456605 AZITHROMYCIN [facility] ZITHROMAX 250 MG ORAL TABLET 2 po today, then 1 po q days 2-5 20 31/03/18 ZITHROMAX 250 MG ORAL TABLET 393004 AZITHROMYCIN [facility] ZITHROMAX 250 MG ORAL TABLET 2 po today, then 1 po q days 2-5 20 26/06/19 ZITHROMAX 250 MG ORAL TABLET 095208 AZITHROMYCIN [facility] ACIPHEX 20 MG ORAL TABLET DELAYED RELEASE Take one by mouth daily ACIPHEX 20 MG ORAL TABLET DELAYED RELEASE 433549 RABEPRAZOLE SODIUM Inactive ACIPHEX 20 MG ORAL TABLET DELAYED RELEASE 1qd ACIPHEX 20 MG ORAL TABLET DELAYED RELEASE 192679 RABEPRAZOLE SODIUM Inactive BENZONATATE 200 MG ORAL CAPSULE Take one capsule three times a d ay BENZONATATE 200 MG ORAL CAPSULE 206955 BENZONATATE Inactive BENADRYL ITCH STOPPING 1-0.1 % EXTERNAL CREAM prn BENADRYL ITCH STOPPING 1-0.1 % EXTERNAL CREAM DIPHENHYDRAMINE-ZINC ACETATE Inactive CALCIUM + D 600-200 MG-UNIT TABS Take one by mouth daily CALCIUM + D 600-200 MG-UNIT TABS CALCIUM CARBONATE-VITAMIN D Inactive MOBIC 15 MG ORAL TABLET 1 tablet by mouth daily in am with PPI 2 MOBIC 15 MG ORAL TABLET 308879 MELOXICAM Inactive ZITHROMAX Z-SANJANA 250 MG ORAL TABLET Take 2 tablets toda y and 1 each day till gone ZITHROMAX Z-SANJANA 250 MG ORAL TABLET 368888 A ZITHROMYCIN Inactive ZITHROMAX Z-SANJANA 250 MG ORAL TABLET 2x1day,5z7uege 2014 ZITHROMAX Z-SANJANA 250 MG ORAL TABLET 065395 AZITHROMYCIN [place] ZITHROMAX Z-SANJANA 250 MG ORAL TABLET take as directed 26/04/19 ZITHROMAX Z-SANJANA 250 MG ORAL TABLET 948254 AZITHROMYCIN [place]act [place] ZITHROMAX Z-SANJANA 250 MG ORAL TABLET 03/03 ZITHROMAX Z-SANJANA 250 MG ORAL TABLET 065270 AZITHROMYCIN Inactive ZITHROMAX Z-SANJANA 250 MG ORAL TABLET 2 today, then 1 daily for 4 d ays ZITHROMAX Z-SANJANA 250 MG ORAL TABLET 445690 AZITHROMYCIN Inactive FLONASE 50 MCG/ACT NASAL SUSPENSION 1 spray each nostr il twice daily for allergies and runny nose FLONASE 50 MCG/ ACT NASAL SUSPENSION FLUTICASONE PROPIONATE Inactive OMEGA-3 1000 MG ORAL CAPSULE 2qd OMEGA-3 1000 MG ORAL CAPSULE 204600 OMEGA-3 FATTY ACIDS Inactive AMOXICILLIN-POT CLAVULANATE 875-125 MG ORAL TABLET 1 pill by mouth twice daily AMOXICILLIN-POT CLAVULANATE 875-125 MG ORAL TABL ET 987643 AMOXICILLIN-POT CLAVULANATE Inactive HYDROCODONE-ACETAMINOPHEN 5-325 MG ORAL TABLET 1-2 every 4hr s prn pain HYDROCODONE-ACETAMINOPHEN 5-325 MG ORAL TABLET 8 20380 HYDROCODONE-ACETAMINOPHEN Inactive MUCINEX 600 MG ORAL TABLET EXTENDED RELEASE 12 HOUR 2qd MUCINEX 600 MG ORAL TABLET EXTENDED RELEASE 12 HOUR GUAIFENESIN Inactive NYSTATIN 678991 UNIT/GM EXTERNAL POWDER Apply to affected areas BID NYSTATIN 938123 UNIT/GM EXTERNAL POWDER 798179 NYSTATIN Inactive CYMBALTA 60 MG ORAL CAPSULE DELAYED RELEASE PARTICLES one tablet daily, takes 30mg. with 60mg. to make 90 mg. CYMBALTA 60 MG ORAL CAPSULE DELAYED RELEASE PARTICLES 047318 DULOXETINE HCL Inacti ve CYMBALTA 60 MG ORAL CAPSULE DELAYED RELEASE PARTICLES 1 cap by mouth daily CYMBALTA 60 MG ORAL CAPSULE DELAYED RELE ASE PARTICLES 833196 DULOXETINE HCL Inactive CYMBALTA 30 MG ORAL CAPSULE DELAYED RELEASE PARTICLES takes 90mg qod alt with 60mg CYMBALTA 30 MG ORAL CAPSULE DELAYED RELEA SE PARTICLES 507749 DULOXETINE HCL Inactive CYMBALTA 30 MG ORAL CAPSULE DELAYED RELEASE PARTICLES 3 caps daily CYMBALTA 30 MG ORAL CAPSULE DELAYED RELEASE PARTICLES 641569 DULOXE ROSANNE HCL Inactive CYMBALTA 30 MG ORAL CAPSULE DELAYED RELEASE PARTICLES 1 daily wi th 60mg CYMBALTA 30 MG ORAL CAPSULE DELAYED RELEASE PARTICLES 618947 DULOXETINE HCL Inactive FLUTICASONE PROPIONATE 50 MCG/ACT NASAL SUSPENSION 1 t o 2 sprays each nostril twice a day FLUTICASONE PROPIONA TE 50 MCG/ACT NASAL SUSPENSION 3935034 FLUTICASONE PROPIONATE Inactive VITAMIN D3 1000 UNIT [...] CAPSULE Take one daily PROBIOTIC ORAL CAPSULE 8076221 PROBIOTIC PRODUCT Inactive ZYRTEC ALLERGY 10 MG [...] RELEASE HYDROCOD POLST-CHLORPHEN POLST I nactive ADK [id number] UNIT-MCG ORAL CAPSULE 1 daily 2 ADK [id number] UNIT-MCG ORAL CAPSULE VITAMINS A D K [...] Fluarix, Agriflu(>= 18 yo)) Fluzone (>=3 yrs.) [[id number]] Seasonal influenza vaccine, injectable, containing preservative, for > 3 years old (Afluria, FluLaval, Fluzone, Fluvirin, Fluarix, Agriflu(>= 18 yo)) Fluzone (>3 yrs.) [[id number]] Seasonal influenza vaccine, injectable, containing preservative, for > 3 years old (Afluria, FluLaval, Fluzone, Fluvirin, Fluarix, Agriflu(>= 18 yo)) Fluarix (>3 yrs.) [[id number]] Diagnostic Results Date Name Value Unit Range Description Lab Report: CBC, Comp. Metabolic Panel, Lipid Panel, Magnesium - Chemistry sodium, serum 138 mmol/L 693-100 2326/09/02 carbon dioxide, venous blood 28.0 mmol/L 21.0-32 [...] 0.20 mg/dL 0.00-1.00 cholesterol, serum 228 mg/dL 520-749 1347/09/02 triglyceride, serum, fasting 236 mg/dL 30-200 HDL [...] 0.36-3.74 Encounters Code Encounter Date Provider Facility CPT-26177 32748: Ofc Vst-Est Level IV-Moderate MDM or 30-39 minutes 17:48:09 CDT Ashley Yang [facility] [place] CPT-26827 15177-Qxc Vst-Est Level III 17:07:11 CDT Jenny Yang [facility] [place] CPT-94208 85807-Xsp Vst-Est Level III 17:51:44 [employer] [place] [facility] CPT-10269 Level 3 Est. Patient 11:09:39 CDT Viviana Rubio [facility] CPT-27841 28450-Hlz Vst-Est Level IV 09:14:31 CDT Conchis Yang [facility] [place] CPT-23886 93207-Cqs Vst-Est Level III 22:05:50 CDT Jenny Ynag [facility] [place] CPT-35387 Level 3 Est. Patient 15:00:02 [employer] Will jarquin [facility] CPT-95197 Level 2 Est. Patient 13:46:20 CDT Ashley Meraz [facility] [place] CPT-00113 Level 2 Est. Patient 13:45:36 CDT Ashley Meraz [facility] [place] CPT-52345 Level 3 Est. Patient 15:52:07 CDT Ashley Meraz [facility] [place] CPT-40578 Level 3 Est. Patient 08:20:37 CDT Ashley Meraz [facility] [place] CPT-50991 Level 3 Est. Patient 15:06:41 CDT Derrick donaldson MD [facility] CPT-14970 Level 3 Est. Patient 11:13:21 [employer] Derrick donaldson MD [facility] CPT-75349 Level 3 Est. Patient 12:54:25 [employer] Ashley Meraz [facility] [place] CPT-30149 Level 3 Est. Patient 23:34:49 [employer] Ashley Meraz madonna [facility] [place] CPT-75818 Level 3 Est. Patient 16:37:09 [employer] Ashley Meraz [facility] [place] CPT-80123 Level 3 Est. Patient 11:59:30 [employer] Ashley Meraz [facility] [place] CPT-25758 Level 4 Est. Patient 07:40:13 CDT Wayne delatorre [facility] [place] CPT-89705 Level 4 Est. Patient 08:06:18 CDT Wayne delatorre [facility] CPT-37838 Level 3 Est. Patient 11:14:45 CDT Wayne delatorre PA [facility] [place] CPT-27472 Level 3 Est. Patient 10:14:55 CDT Wayne delatorre [facility] CPT-44514 Level 4 Est. Patient 15:23:47 CDT Wayne delatorre PA [facility] CPT-53467 Level 3 Est. Patient 07:50:51 [employer]TA[employer] Wayne delatorre [facility] CPT-03480 Level 3 Est. Patient 14:47:52 CDT Wayne delatorre [facility] CPT-68828 Level 3 Est. Patient 11:28:46 CDT Wayne delatorre [facility] CPT-90249 Level 4 Est. Patient 14:48:43 CDT [facility] CPT-54585 Level 3 Est. Patient 14:10:18 [employer] Wayne delatorre PA [facility] CPT-20026 Level 3 Est. Patient 16:44:33 [employer]TACTS Wayne delatorre [facility] CPT-64023 Level 4 Est. Patient 08:22:34 [employer] Wayne delatorre [facility] CPT-53415 Level 4 Est. Patient 07:10:30 CDT Wayne delatorre PA [facility] [place] [facility] CPT-41782 Level 3 Est. Patient 14:50:20 [employer] Wayne delatorre PA [facility] CPT-98543 Level 3 Est. Patient 09:46:08 [employer] Zuleika cha APRN [facility] [place] [facility] CPT-07041 Level 4 Est. Patient 07:56:24 [employer] Wayne delatorre [facility] [place] [facility] CPT-54931 Level 3 Est. Patient 12:13:53 CDT Ismael Denton [facility] [place] [facility] CPT-55960 Level 4 Est. Patient 12:28:51 [employer] Wayne delatorre [facility] [place] [facility] CPT-09056 Level 3 Est. Patient 15:23:42 [employer] Wayne delatorre [facility] [place] [facility] CPT-18895 Level 3 Est. Patient 06:34:33 [employer] Wayne delatorre [facility] [place] [facility] Procedures Code Procedure Name Date Entry Date Standard Desc ription CPT-87054 Allergy Admin 2 16:06:08 CDT CPT-26910 Allergy Admin 2 16:51:42 CDT CPT-70307 Allergy Admin 2 16:26:50 CDT CPT-47873 Allergy Admin 2 17:02:53 CDT CPT-44659 Allergy Admin 2 16:32:35 CDT CPT-93817 Allergy Admin 2 16:26:27 CDT CPT-J3420 Vitamin B12 1000mcg (Cyanocobalamin) 16:32:13 CDT CPT-68919 Abx/Therapy Injection 16:32:13 CDT CPT-02948 Allergy Admin 2 16:32:12 CDT CPT-56274 Allergy Admin 2 16:05:03 CDT CPT-25812 Allergy Admin 2 16:35:15 CDT CPT-97033 Allergy Admin 2 16:20:41 CDT CPT-50069 Allergy Admin 2 11:25:21 CDT CPT-78711 Allergy Admin 2 15:46:12 CDT CPT-HD0593T (4274F) Influenza immunization administe red or previously received 17:51:44 [employer] CPT-42691 Spec Collection and Handling Fee 10:45:[address] CPT-[id number] (4274F) Influenza immunization administe red or previously received 10:20:17 CDT CPT-34179 Prv Med Est Pt 40-64yrs 16:26:57 CDT CPT-77936 Venipuncture Draw Fee 11:08:31 CDT CPT-14802 Magnesium - LAB USE ONLY 11:08:31 CDT 10/15 CPT-67678 TSH - LAB USE ONLY 11:08:31 CDT CPT-98827 Lipid - LAB USE ONLY 11:08:30 CDT 2 CPT-97846 CMP - LAB USE ONLY 11:08:30 CDT CPT-43708 CBC - LAB USE ONLY 11:08:30 CDT CPT-27865 Spec Collection and Handling Fee 16:14:51 C DT CPT-31694 UA w micro - LAB USE ONLY 16:14:51 CDT 2018 CPT-60580 Prv Med Est Pt 40-64yrs 08:34:49 CDT 10/01 CPT-47424 Sed Rate - LAB USE ONLY 10:50:49 CDT 10/02 CPT-58613 TSH - LAB USE ONLY 10:50:49 CDT CPT-87557 Lipid - LAB USE ONLY 10:50:49 CDT 0 CPT-61233 Magnesium - LAB USE ONLY 10:50:49 CDT 10/02 CPT-09682 CMP - LAB USE ONLY 10:50:49 CDT CPT-57730 CBC - LAB USE ONLY 10:50:49 CDT CPT-13190 Venipuncture Draw Fee 10:50:49 CDT CPT-13356 IV Hydration < or = 1 hr 22:05:50 CDT 04/16 CPT-J7030 Normal Saline 1000 mL 22:05:50 CDT CPT-05202 Abx/Therapy Injection 16:31:51 [employer] CPT-J2950 Phenergan 25 mg 16:31:51 [employer] CPT-35042 Abx/Therapy Injection 16:39:40 CDT CPT-97205 First Vx - Ix admin via ID I M or jet injects without counseling by physician 16:39:39 CDT CPT-48408 Prv Med Est Pt 40-64yrs 16:33:10 CDT 11/10 CPT-JTINJ Asp/Joint Injection 16:13:36 CDT CPT-88980 Allergy Admin 2 16:54:52 CDT CPT-80822 Allergy Admin 2 16:46:15 CDT CPT-18845 Allergy Admin 2 11:29:09 CDT CPT-71068 Allergy Admin 2 17:05:15 CDT CPT-88533 Allergy Admin 2 12:31:51 CDT CPT-30404 Allergy Admin 2 15:40:56 CDT CPT-61280 CBC - LAB USE ONLY 09:49:24 CDT CPT-91979 CMP - LAB USE ONLY 09:49:24 CDT CPT-10708 Lipid - LAB USE ONLY 09:49:24 CDT 8 CPT-16890 Venipuncture Draw Fee 09:49:24 CDT CPT-74327 Allergy Admin 2 10:46:11 CDT CPT-JTINJ Asp/Joint Injection 09:52:58 CDT CPT-55516 Skin tag rem 1-15 13:46:20 CDT CPT-35725 Knee, right, 3V - XRAY USE ONLY 13:07:09 CD T CPT-38471 Allergy Admin 2 11:56:38 CDT CPT-04185 Allergy Admin 2 12:00:55 CDT CPT-13340 Allergy Admin 2 16:42:13 CDT CPT-42085 Allergy Admin 2 16:27:55 CDT CPT-75687 Allergy Admin 2 13:24:26 CDT CPT-31399 Allergy Admin 2 17:17:57 [employer] CPT-90948 Allergy Admin 2 16:23:22 [employer] CPT-64567 Allergy Admin 2 16:26:55 [employer] CPT-80697 Allergy Admin 2 16:32:33 [employer] CPT-91037 Allergy Admin 2 17:43:40 [employer] CPT-42758 Allergy Admin 2 16:26:07 [employer] CPT-66080 Allergy Admin 2 12:31:50 [employer] CPT-85619 Allergy Admin 2 16:40:38 [employer] CPT-87236 Allergy Admin 2 17:07:36 CDT CPT-G0008 Administration of Influenza Virus Vaccine 17:01:01 CDT CPT-85392 First Vx - Ix admin via ID I M or jet injects without counseling by physician 17:01:01 CDT CPT-17484 Allergy Admin 2 12:06:54 CDT CPT-06913 Allergy Admin 2 17:04:46 CDT CPT-62836 Allergy Admin 2 16:34:48 CDT CPT-38714 Allergy Admin 2 17:04:51 CDT CPT-09494 Allergy Admin 2 16:25:14 CDT CPT-49119 Allergy Admin 2 10:52:02 CDT CPT-98269 Allergy Admin 2 11:45:31 CDT CPT-96918 Allergy Admin 2 12:02:20 CDT CPT-50311 Allergy Admin 2 15:47:29 CDT CPT-46093 Allergy Admin 2 13:25:44 CDT CPT-79514 Allergy Admin 2 10:51:13 CDT CPT-36598 CBC - LAB USE ONLY 10:44:39 CDT CPT-44366 CMP - LAB USE ONLY 10:44:39 CDT CPT-60263 Lipid - LAB USE ONLY 10:44:39 CDT 9 CPT-20166 Venipuncture Draw Fee 10:44:38 CDT CPT-38201 Allergy Admin 2 12:25:22 CDT CPT-03664 Allergy Admin 2 12:41:34 CDT CPT-07422 Allergy Admin 2 15:29:46 CDT CPT-85652 Allergy Admin 2 14:46:53 CDT CPT-14409 Allergy Admin 2 14:16:16 CDT CPT-14132 Allergy Admin 2 16:55:26 CDT CPT-82833 Allergy Admin 2 10:12:02 CDT CPT-42324 Allergy Admin 2 14:53:56 CDT CPT-72147 Allergy Admin 2 17:01:54 CDT CPT-98097 Allergy Admin 2 09:36:02 CDT CPT-76611 Allergy Admin 2 16:53:26 [employer] CPT-28294 Allergy Admin 2 16:59:41 [facility] CPT-90507 Allergy Admin 2 16:36:44 [facility] CPT-68516 Allergy Admin 2 16:17:16 [facility] CPT-39304 Allergy Admin 2 17:08:10 [facility] CPT-42922 Allergy Admin 2 12:16:08 [facility] CPT-42506 Allergy Admin 2 16:47:30 [employer] CPT-57436 Allergy Admin 2 16:59:44 [employer] CPT-48687 Allergy Admin 2 12:48:53 [employer] CPT-20108 Allergy Admin 2 10:19:48 [employer] CPT-30138 Allergy Admin 2 12:40:17 [employer] CPT-34421 Abx/Therapy Injection 17:21:59 [employer] CPT-40630 First Vx - Ix admin via ID I M or jet injects without counseling by physician 17:21:57 [employer] CPT-04004 Allergy Admin 2 17:20:12 [employer] CPT-24532 Allergy Admin 2 11:12:50 [employer] CPT-48209 Allergy Admin 2 17:02:39 CDT CPT-34860 BMP - LAB USE ONLY 10:33:02 CDT CPT-51717 CBC - LAB USE ONLY 10:33:02 CDT CPT-06380 Venipuncture Draw Fee 10:33:02 CDT CPT-95442 Abx/Therapy Injection 12:29:08 CDT CPT-21416 Allergy Admin 2 10:39:48 CDT CPT-76234 Allergy Admin 2 10:55:47 CDT CPT-PV Prev. Care Visit 10:10:00 CDT CPT-04785 Allergy Admin 2 11:31:20 CDT CPT-48994 Allergy Admin 2 16:53:45 CDT CPT-72534 Allergy Admin 2 16:36:42 CDT CPT-59590 Allergy Admin 2 16:30:19 CDT CPT-04096 Allergy Admin 2 15:39:35 CDT CPT-91897 Allergy Admin 2 17:51:32 CDT CPT-86508 Allergy Admin 2 11:50:50 CDT CPT-PV Prev. Care Visit 14:09:05 CDT CPT-65525 Allergy Admin 2 13:37:39 CDT CPT-00400 Abx/Therapy Injection 12:17:43 CDT CPT-04095 Venipuncture Draw Fee 10:39:55 CDT CPT-54209 Allergy Admin 2 12:04:53 CDT CPT-37351 Allergy Admin 2 10:04:39 CDT CPT-67419 Allergy Admin 2 12:15:35 CDT CPT-52995 Allergy Admin 2 17:04:36 CDT CPT-52722 Allergy Admin 2 16:25:49 CDT CPT-57103 Allergy Admin 2 17:30:06 CDT CPT-33985 Allergy Admin 2 10:11:48 CDT CPT-54601 Allergy Admin 2 17:06:13 CDT CPT-51837 Abx/Therapy Injection 12:23:07 CDT CPT-J0702 Celestone 12 mg (Betamethasone) 12:23:07 CD T CPT-62492 Venipuncture Draw Fee 10:26:42 CDT CPT-86347 Allergy Admin 2 12:10:01 CDT CPT-78868 Allergy Admin 2 15:13:57 [employer] CPT-00039 Allergy Admin 2 16:55:22 [employer] CPT-42813 Allergy Admin 2 10:13:46 [employer] CPT-69663 Venipuncture Draw Fee 10:06:08 [employer] CPT-25017 Allergy Admin 2 16:15:41 [employer] CPT-02756 Allergy Admin 2 16:40:21 [employer] CPT-33180 Allergy Admin 2 16:31:48 [employer] CPT-45925 Allergy Admin 2 16:38:26 [employer] CPT-60651 Allergy Admin 2 16:40:08 [employer] CPT-14987 Allergy Admin 2 08:34:27 [employer] CPT-94981 Allergy Admin 2 14:27:45 [employer] CPT-89930 Destruction bgn lsn up to 14 09:41:27 [employer] 2 CPT-57740 Allergy Admin 2 17:45:17 [employer] CPT-43540 Allergy Admin 2 14:59:03 [employer] CPT-44412 Allergy Admin 2 12:49:42 CDT CPT-88291 Administration single or combination vac cine inc oral 15:01:57 CDT CPT-64752 Fluzone Quadrivalent Intramuscular Suspe nsion 0.5 ML 15:01:57 CDT CPT-64005 Allergy Admin 2 15:07:08 CDT CPT-68564 Allergy Admin 2 15:39:01 CDT CPT-18358 Allergy Admin 2 17:40:11 CDT CPT-87243 Allergy Admin 2 16:07:08 CDT CPT-76346 Allergy Admin 2 16:08:07 CDT CPT-99519 Venipuncture Draw Fee 09:34:29 CDT CPT-16495 Allergy Admin 2 16:27:43 CDT CPT-65379 Allergy Admin 2 15:53:10 CDT CPT-73204 Allergy Admin 2 15:42:29 CDT CPT-58901 Allergy Admin 2 11:26:14 CDT CPT-91880 Allergy Admin 2 10:36:24 CDT CPT-75293 Allergy Admin 2 16:53:37 CDT CPT-45137 Allergy Admin 2 11:21:44 CDT CPT-95114 Allergy Admin 2 10:50:40 CDT CPT-49271 Allergy Admin 2 11:19:11 CDT CPT-92238 Venipuncture Draw Fee 11:12:25 CDT CPT-59338 Allergy Admin 2 11:14:51 CDT CPT-97287 Allergy Admin 2 16:53:11 CDT CPT-97843 Allergy Admin 2 11:45:56 CDT CPT-15711 Allergy Admin 2 12:51:39 CDT CPT-07314 Allergy Admin 2 12:08:56 CDT CPT-39391 Allergy Admin 2 15:29:45 CDT CPT-48497 Allergy Admin 2 16:34:01 CDT CPT-34007 Allergy Admin 2 16:36:46 CDT CPT-58324 Allergy Admin 2 15:19:16 CDT CPT-04579 Allergy Admin 2 16:13:25 CDT CPT-21386 Allergy Admin 2 17:06:17 CDT CPT-01374 Allergy Admin 2 10:42:10 [employer] CPT-47560 Allergy Admin 2 17:33:16 [employer] CPT-58241 Allergy Admin 2 10:53:30 [employer] CPT-36516 Allergy Admin 2 14:18:24 [employer] CPT-79948 Allergy Admin 2 10:18:29 [employer] CPT-28745 Allergy Admin 2 12:57:40 [employer] CPT-19463 Allergy Admin 2 16:53:33 [employer] CPT-37184 Allergy Admin 2 12:43:00 [employer] CPT-52864 Allergy Admin 2 13:14:09 [employer] CPT-15866 Pneumovax 23 Injection Injectable 25 MCG /0.5ML 09:51:29 [employer] CPT-G0009 Administration of Pneumococcal Vaccine 09:51:29 [employer] CPT-24231 Influenza split virus > age 3 09:51:29 [employer] CPT-G0008 Administration of Influenza Virus Vaccine 02/23 09:51:29 [employer] CPT-90997 Venipuncture Draw Fee 10:31:06 CDT CPT-J0702 Celestone 12 mg (Betamethasone) 11:34:17 CD T CPT-04966 Abx/Therapy Injection 11:34:17 CDT CPT-18557 Chest 2V Frontal and Lat 11:31:47 CDT 07/04 CPT-78695 Venipuncture Draw Fee 11:31:47 CDT CPT-29909 Allergy Admin 2 14:31:05 CDT CPT-28124 EKG Trac and Interp 08:42:32 CDT CPT-70842 Chest 2V Frontal and Lat 08:42:32 CDT 05/28 CPT-63629 Venipuncture Draw Fee 08:39:02 CDT CPT-10127 Allergy Admin 2 16:59:09 CDT CPT-19366 Allergy Admin 2 17:06:11 CDT CPT-87495 Allergy Admin 2 16:04:36 CDT CPT-32756 Venipuncture Draw Fee 16:32:44 [employer] CPT-94223 Venipuncture Draw Fee 10:54:37 [employer] CPT-87865 Allergy Admin 2 14:53:55 [employer] CPT-55450 Allergy Admin 2 10:23:58 [employer] CPT-34875 First Vx Component - Ix admi n via ID IM or jet inj without physician counseling 15:34:26 [employer] CPT-02620 Fluzone (>=3 yrs.) 15:34:26 [employer] CPT-34274 Allergy Admin 2 15:56:02 [employer] CPT-79292 Allergy Admin 2 11:08:58 [employer] CPT-15460 Allergy Admin 2 10:51:36 [employer] CPT-86778 Allergy Admin 2 15:38:19 [employer] CPT-96500 Allergy Admin 2 15:12:46 CDT CPT-03813 Allergy Admin 2 10:28:50 CDT CPT-44753 Allergy Admin 2 16:35:33 CDT CPT-71526 Allergy Admin 2 10:14:18 CDT CPT-70050 Abx/Therapy Injection 09:06:45 CDT CPT-J0702 Celestone 6 mg (Betamethasone) 09:06:45 CDT CPT-95286 Allergy Admin 2 15:51:15 CDT CPT-03336 Allergy Admin 2 10:40:16 CDT CPT-09257 Allergy Admin 2 16:35:55 CDT CPT-61629 Allergy Admin 2 13:12:52 CDT CPT-17955 Allergy Admin 2 16:06:50 CDT CPT-85294 Allergy Admin 2 11:04:24 CDT CPT-90643 Allergy Admin 2 10:44:50 CDT CPT-40123 Allergy Admin 2 15:13:40 CDT CPT-28017 Allergy Admin 2 15:00:03 CDT CPT-77445 Allergy Admin 2 10:37:38 CDT CPT-49178 Venipuncture Draw Fee 09:16:43 [employer] CPT-73988 Allergy Admin 2 11:15:59 [employer] CPT-23579 Postop F/U Visit 10:10:52 [employer] CPT-13664 Allergy Admin 2 13:05:05 [employer] CPT-59821 Postop F/U Visit 19:45:16 [employer] CPT-41362 Allergy Admin 2 11:52:35 [employer] CPT-37112 Allergy Admin 2 10:49:22 [employer] CPT-OV Office Visit 13:55:55 [employer] CPT-79958 Allergy Admin 2 12:54:28 [employer] CPT-OV Office Visit 14:04:48 [employer] CPT-37695 Venipuncture Draw Fee 10:29:14 [employer] CPT-86110 Allergy Admin 2 11:24:43 [employer] CPT-41735 Knee 3V 11:00:12 [employer] CPT-69211 C-Spine Min 4V 11:00:12 [employer] CPT-81858 Allergy Admin 2 13:38:40 [employer] CPT-95259 Venipuncture Draw Fee 11:33:37 CDT CPT-62946 Allergy Admin 2 15:34:37 CDT CPT-09761 Allergy Admin 2 14:11:42 CDT CPT-65463 Administration single or combination vac cine inc oral 12:51:42 CDT CPT-81057 Influenza split virus > age 3 12:51:42 CDT CPT-26092 Allergy Admin 2 11:58:43 CDT CPT-61643 Allergy Admin 2 11:29:32 CDT CPT-02077 Allergy Admin 2 10:55:19 CDT CPT-71903 Allergy Admin 2 12:38:54 CDT CPT-46402 Allergy Admin 2 13:01:47 CDT CPT-85157 Abx/Therapy Injection 12:41:18 CDT CPT-J0702 Celestone 12 mg (Betamethasone) 12:41:18 CD T CPT-53584 Abx/Therapy Injection 16:33:09 CDT CPT-J0702 Celestone 12 mg (Betamethasone) 16:33:09 CD T CPT-10542 Allergy Admin 2 15:49:09 CDT CPT-93323 Allergy Admin 2 12:08:56 CDT CPT-30953 Allergy Admin 2 12:19:10 CDT CPT-74545 Allergy Admin 2 12:46:56 CDT CPT-88599 Allergy Admin 2 15:05:13 CDT CPT-88722 Allergy Admin 2 15:36:20 CDT CPT-40038 Allergy Admin 2 09:58:47 [employer] CPT-50104 Allergy Admin 2 12:18:06 [employer] CPT-09565 Allergy Admin 2 10:01:48 [employer] CPT-88019 Allergy Admin 2 12:17:53 [employer] CPT-95704 Allergy Admin 2 10:06:44 [employer] CPT-13698 Allergy Admin 2 10:13:04 [employer] CPT-24948 Venipuncture Draw Fee 10:09:07 [employer] CPT-57321 Bone Density 12:24:51 [employer] CPT-68801 Allergy Admin 2 11:29:41 [employer] CPT-64962 Allergy Admin 2 16:07:15 [employer] CPT-75354 Breathing Treatment 06:34:33 [employer] CPT-J0702 Celestone 12 mg (Betamethasone) 06:34:33 CS T CPT-35182 Abx/Therapy Injection 06:34:33 [employer] CPT-37843 Breathing Tx 11:07:33 [employer] CPT-97140 Allergy Admin 2 10:02:33 CDT CPT-20727 Allergy Admin 2 10:02:33 CDT CPT-21360 Allergy Admin 2 15:26:19 CDT CPT-99622 Administration single or combination vac cine inc oral 15:41:12 CDT CPT-88481 Influenza split virus > age 3 15:41:12 CDT
--- OUTSIDE RECORDS SUMMARY | 2020-09-15 14:35 | XMS REPORT | Clinical Summary ---
Author Author Admin, Supriya Zuniga Organization [facility] Address Unknown Phone Unavailable Allergies, Adverse [...] Yang APRN Pruritus vulvae Active Ashley Yokum FACE BURLER Screening mammogram V76.12 Resolved Ashley Yokum A PRN Other screening mammogram Sinusitis, acute maxillary 461.0 Inactive 7 Ashley Yokum FACE BURLER Acute maxillary sinusitis Diarrhea, acute 787.91 Resolved Ashley Yokum FACE BURLER Diarrhea Vaginal candidiasis 112.1 Resolved Ashley Yokum A PRN Candidiasis of vulva and vagina Accidental fall E888.9 Resolved Ashley Yokum FACE BURLER Unspecified fall Contusion of left hand, initial encounter 923.20 Resol burak Ashley Yokum FACE BURLER Contusion of hand(s) Contusion of right upper arm, subsequent encounter V58.89 201 09/14/21 Resolved Ashley Yokum FACE BURLER Encounter for other specified a ftercare Ganglion cyst of left wrist 727.41 Active Derrick Younger MD Ganglion of joint Body Mass Index 31.0-31.9 Adult Resolved 2017 Ashley Yokum FACE BURLER Body Mass Index 31.0-31.9, adult Plantar fasciitis 728.71 Active Ashley Yokum FACE BURLER Plantar fascial fibromatosis Bronchitis, acute 466.0 Inactive Ashley Yokum APR N Acute bronchitis Body Mass Index 30.0-30.9 Adult Resolved 2017 Ashley Yokum FACE BURLER Body Mass Index 30.0-30.9, adult Allergic conjunctivitis, bilateral 372.14 Resolved 2 Ashley Yokum FACE BURLER Other chronic allergic conjunctivitis Skin tags; irritated/inflammed 701.9 Resolved 11/10 Ashley Yokum FACE BURLER Unspecified hypertrophic and atrophic co nditions of skin Body Mass Index 31.0-31.9 Adult Refinement 2017 Ashley Yokum FACE BURLER Body Mass Index 31.0-31.9, adult BMI 30-30.9 Refinement Ashley Yokum FACE BURLER Body Mass Index 31.0-31.9, adult BMI 31-31.9 Refinement Ashley Yokum FACE BURLER Body Mass Index 31.0-31.9, adult BMI 32-32.9 Refinement Lois Faith RN Body Mass Index 31.0-31.9, adult BMI 31-31.9 Active Viviana Rubio APRN-Julieta Body Mass Index 31.0-31.9, adult Major depression, recurrent, moderate 296.32 Active Ashley Yokum FACE BURLER Major depressive disorder, recurrent epi sode, moderate degree Obesity Class I (BMI 30-34.9) Active Ashley Y okum FACE BURLER Obesity, unspecified Nausea and vomiting 787.01 Resolved Ashley Yokum A PRN Nausea with vomiting Gastroenteritis acute 558.9 Resolved Ashley Yokum FACE BURLER Other and unspecified noninfectious gastroenteritis and colitis GERD 530.81 Active Ashley Yokum FACE BURLER E sophageal reflux Joint pain 719.40 Resolved Ashley Yokum FACE BURLER Pain in joint, site unspecified Preventive health care, adult V70.0 Inactive / Ashley Yokum FACE BURLER Routine general medical examination at a health care facility Blood in urine 599.70 Resolved Ashley Yokum FACE BURLER Hematuria, unspecified Other abnormal findings in urine Resolved Ashley Yokum FACE BURLER Urinary tract infection 599.0 Inactive Ashley Yok um FACE BURLER Urinary tract infection, site not specified Chafing of skin 709.8 Resolved Ashley Yokum FACE BURLER Other specified disorders of skin Preventive care V70.0 Active Supriya Betzaida A Routine general medical examination at a health care facility Gynecological examination, routine V72.3 Inactive 2 Ashley Yokum FACE BURLER Special investigations and e xaminations - Gynecological examination Near syncope 780.2 Resolved Ashley Yokum FACE BURLER Syncope and collapse Lightheadedness 780.4 Resolved Ashley Yokum FACE BURLER Dizziness and giddiness Headache 784.0 Resolved Ashley Yokum FACE BURLER Headache Sore throat 462 Resolved Ashley Yokum FACE BURLER Acute pharyngitis Sinusitis - acute 461.9 Resolved Ashley Yokum APR N Acute sinusitis, unspecified Tired all the time 780.79 Resolved Ashley Yokum AP RN Other malaise and fatigue Fatigue 780.79 Inactive Ashley Yokum FACE BURLER Other malaise and fatigue Preoperative examination V72.84 Active Ashley Yok um FACE BURLER Preoperative examination, unspecified Skin lesion 709.9 Active Ashley Yokum FACE BURLER Unspecified disorder of skin and subcutaneous tissue ABNORMAL WEIGHT GAIN ICD-783.1 Inactive Wayne paul PA ALLERGIC RHINITIS ICD-477.9 Inactive Lois mendieta FACE BURLER SINUSITIS ICD-473.9 Inactive Lois Leos FACE BURLER 2012 WHEEZING ICD-786.07 Inactive Lois Leos FACE BURLER 2012 UPPER RESPIRATORY INFECTION, ACUTE ICD-465.9 I nactive Lois Leos FACE BURLER NEED FOR DESENSITIZATION TO ALLERGENS ICD-V07.1 8 Inactive Ashley Yang FACE BURLER OBESITY ICD-278.00 Inactive Wayne Harms PA CONTACT DERMATITIS DUE TO POISON ARANZA ICD-692.6 Inactive Lois Leos FACE BURLER NEED PROPHYLACTIC VACCINATION&INOCULATION FLU ICD-V04.81 Inactive Wayne Harms PA GERD ICD-530.81 Inactive Lois Leos FACE BURLER 03/22 LONG-TERM (CURRENT) USE OF OTHER MEDICATIONS ICD-V58.69 6 Inactive Wayne Harms PA NECK PAIN ICD-723.1 Inactive Wayne Harms PA 06/15 DEGENERATIVE DISC DISEASE, CERVICAL SPINE ICD-722.4 Inactive Wayne Harms PA SKIN TAG ICD-701.9 Inactive Wayne Harms PA G E R D ICD-530.81 Inactive Lois Leos FACE BURLER CANDIDIASIS OF SKIN AND NAILS ICD-112.3 Inacti ve Wayne Harms PA AFTERCARE FOLLOW SURGERY MUSCULOSKEL SYSTEM NEC ICD-V58.78 Inactive Wayne Harms PA PHARYNGITIS ICD-462 Inactive Wayne Harms PA 05/03 OTHER SCREENING MAMMOGRAM ICD-V76.12 Inactive Wayne Harms PA DYSPAREUNIA, MILD ICD-625.0 Inactive Wayne Harm s PA CONTACT DERMATITIS DUE TO POISON ARANZA ICD-692.6 Inactive Wayne Harms PA Sinusitis, chronic ICD-473.9 Inactive Ashley Yo yoni FACE BURLER Myalgia ICD-729.1 Inactive Wayne Harms PA Rheumatoid [...] PA Runny nose ICD-472.0 Inactive Ashley Yokum FACE BURLER Influenza like illness ICD-487.1 Inactive Wayne Moon PA Acute maxillary sinusitis ICD-461.0 Inactive Ashley Yokum FACE BURLER Preventive health care ICD-V70.0 Inactive Ka thi Yokum FACE BURLER Well women exam ICD-V72.3 Inactive Ashley Yokum FACE BURLER Screening mammogram ICD-V76.12 Inactive Ashley Yokum FACE BURLER Sinusitis, acute maxillary ICD-461.0 Inactive Ashley Yokum FACE BURLER Diarrhea, acute ICD-787.91 Inactive Ashley Yoku m FACE BURLER Vaginal candidiasis ICD-112.1 Inactive Ashley Y okum FACE BURLER Accidental fall ICD-E888.9 Inactive Ashley Yoku m FACE BURLER Contusion of left hand, initial encounter ICD-923.20 Inactive Ashley Yokum FACE BURLER Contusion of right upper arm, subsequent encounter ICD-V58.89 Inactive Ashley Yokum FACE BURLER Body Mass Index 31.0-31.9 Adult Inac tive Ashley Yokum FACE BURLER Bronchitis, acute ICD-466.0 Inactive Ashley Yok um FACE BURLER Body Mass Index 30.0-30.9 Adult Inac tive Ashley Yokum FACE BURLER Allergic conjunctivitis, bilateral ICD-372.14 I nactive Ashley Yokum FACE BURLER Skin tags; irritated/inflammed ICD-701.9 Inact rancho Ashley Yokum FACE BURLER Nausea and vomiting ICD-787.01 Inactive Ashley Yokum FACE BURLER Gastroenteritis acute ICD-558.9 Inactive Conchis hi Yokum FACE BURLER Joint pain ICD-719.40 Inactive Ashley Yokum APR N Preventive health care, adult ICD-V70.0 Inacti ve Ashley Yokum FACE BURLER Blood in urine ICD-599.70 Inactive Ashley Yokum FACE BURLER Other abnormal findings in urine Mara ctive Ashley Yokum FACE BURLER Urinary tract infection ICD-599.0 Inactive K athi Yokum FACE BURLER Chafing of skin ICD-709.8 Inactive Ashley Yokum FACE BURLER Gynecological examination, routine ICD-V72.3 I nactive Ashley Yokum FACE BURLER Near syncope ICD-780.2 Inactive Ashley Yokum AP RN Lightheadedness ICD-780.4 Inactive Ashley Yokum FACE BURLER Headache ICD-784.0 Inactive Ashley Yokum FACE BURLER 2020 Sore throat ICD-462 Inactive Ashley Yang FACE BURLER 202 02/17/17 Sinusitis - acute ICD-461.9 Inactive Ashley peacock FACE BURLER Tired all the time ICD-780.79 Inactive Ashley gutierrez FACE BURLER Fatigue ICD-780.79 Inactive Ashley Yang FACE BURLER 2020 Medication List Medication Instructions Start Date Stop Date Generic Name NDC Status Provider Patient Instruction PHENTERMINE HCL 37.5 MG TABS 1 TAB IN MORING. TAKE 30 MIN BEFORE BREAKFAST OR 2 HRS AFTER BREAKFAST PHENTERMINE HCL 95542764537 Active Ashley Yang APRN Active ADK [id number] UNIT-MCG ORAL CAPSULE 1 daily 2 VITAMINS A D K 00271570924 No Longer Active Ashley Yang APRN Active EQ LORATADINE 10 MG ORAL TABLET TAKE 1 TABLET BY MOUTH ONCE DAILY NEEDED FOR ALLERGIES LORATADINE 82061148531 Active Shanelle Nicole RN Active ALPRAZOLAM 0.25 MG TABS TAKE 1 TO 2 TABLETS BY MOUTH THREE TIMES DAILY NEEDED ALPRAZOLAM 79029818476 Active Shanelle Nicole RN Active MUCINEX D 60-600 MG ORAL TABLET EXTENDED RELEASE 12 HO UR 1 po BID PRN Congestion PSEUDOEPHEDRINE-GUAIFENESIN 95600353041 Active Ashley Yang APRN Active ZYRTEC ALLERGY 10 MG ORAL CAPSULE 1qd CETIR IZINE HCL 69965022046 No Longer Active Ashley Yang APRN Active HAIR, SKIN, NAILS VITAMINS take 1 tab by mouth 2x a day HAIR, SKIN, NAILS VITAMINS Active Ashley Merazum FACE BURLER Active CENTRUM SILVER FOR WOMEN OVER 50 1 tab by mouth by day. CENTRUM SILVER FOR WOMEN OVER 50 Active Ashley Yang APRN Active VITAMIN D3 1000 UNIT ORAL CAPSULE 1 po qd CH OLECALCIFEROL 99737012503 Active Ashley Yang FACE BURLER Active PREDNISONE 20 MG ORAL TABLET Take 2 tablets by mouth d aily for 2 days then 1 tablet daily for 2 days. PREDNISONE 86068009329 No Longer Active Ashley Yang FACE BURLER Active MELOXICAM 15 MG ORAL TABLET TAKE 1 TABLET BY MOUTH IN THE MORNING 2 MELOXICAM 58219649480 Active Shanelle Rivera RN Active SIMVASTATIN 40 MG ORAL TABLET TAKE 1 TABLET BY MOUTH ONCE DA JAVON AT BEDTIME SIMVASTATIN 69190193293 Active LARRY Murillo Active [id number] ORAL TABLET MULT IPLE MINERALS 68636305699 Active Lois Faith RN Active SERTRALINE HCL 100 MG ORAL TABLET Take 1 tablet by mouth once da javon SERTRALINE HCL 13692216676 Active LARRY Murillo A ctive REGLAN 10 MG ORAL TABLET 1 po qid for bowels 3 METOCLOPRAMIDE HCL 17066061841 No Longer Active Ashley Yang ELAINA A ctive B-12 2500 MCG ORAL TABLET 1 daily CYANOCOBAL HUNT 22452137361 No Longer Active Ashley Yang ELAINA Active ESTRADIOL 2 MG TABS Take 1 tablet by mouth once daily ESTRADIOL 26289356261 Active Shanelle Rivera RN Active MACROBID 100 MG ORAL CAPSULE 1 cap by mouth twice daily NITROFURANTOIN MONOHYD MACRO 84608309301 No Longer Active Ashley Yang ELAINA Active FISH OIL + D3 1306-2152 MG-UNIT ORAL CAPSULE 1 dailly 4 FISH OIL-CHOLECALCIFEROL 96164496516 Active Ashleykaleigh Merazum FACE BURLER Acti ve PROAIR HFA 108 (90 BASE) MCG/ACT INHALATION AEROSOL SO LUTION 2 puffs four times a day as needed ALBUTEROL SULFATE 70514831622 No Long er Active Ashley Yang FACE BURLER Active ZITHROMAX Z-SANJANA 250 MG ORAL TABLET Take 2 tablets toda y and 1 each day till gone AZITHROMYCIN 46230837956 No Longer Active Ashley Yokum FACE BURLER Active POLYTRIM 99689-3.1 UNIT/ML-% OPHTHALMIC SOLUTION 1 gtt to affected eye q3h x 7 days POLYMYXIN B-TRIMETHOPRIM 87997429637 No Longer Active Ashley Yokum FACE BURLER Active IBUPROFEN 200 MG ORAL TABLET Take 3 tablets every 6hrs 201 09/17/15 IBUPROFEN 09234244237 No Longer Active Ashley Yokum FACE BURLER Active DIFLUCAN 150 MG ORAL TABLET Take one tablet today and repeat in 72 hours FLUCONAZOLE 42300861748 No Longer Active Derrick cardenas MD Active DIFLUCAN 150 MG ORAL TABLET 1 by mouth for yeast 03/03 FLUCONAZOLE 63301778911 No Longer Active Ashley Yokum FACE BURLER Active AUGMENTIN 875-125 MG ORAL TABLET Take one tablet twice a day with food AMOXICILLIN-POT CLAVULANATE 58027969152 No Longer Act rancho Ashley Yokum FACE BURLER Active CALCIUM 600 + D 600-200 MG-UNIT ORAL TABLET Take one daily CALCIUM CARB-CHOLECALCIFEROL 80213281032 No Longer Active Ashley Yokum FACE BURLER Active FLONASE 50 MCG/ACT NASAL SUSPENSION 1 spray each nostr il twice daily for allergies and runny nose FLUTICASONE PROPIONATE 48858442956 No Longer Active Ashley Yokum FACE BURLER Active CLARITIN-D 12 HOUR 5-120 MG ORAL TABLET EXTENDED RELEA SE 12 HOUR Take one tablet BID as needed for allergies LORATADINE-PSEUDOEP HEDRINE 72218276688 No Longer Active Beth Naff RECRUITMENT SPECIALIST Active AMOXICILLIN-POT CLAVULANATE 875-125 MG ORAL TABLET 1 pill by mouth twice daily AMOXICILLIN-POT CLAVULANATE 84120307967 No Longer Act rancho Ashley Yokum FACE BURLER Active AMOXICILLIN 500 MG ORAL CAPSULE Take 1 capsule by mout h three times a day X 10 days AMOXICILLIN 98150996340 No Longer Active Wayne H arms PA Active PROBIOTIC DAILY ORAL CAPSULE Take one daily PROBIO TIC PRODUCT 89004948829 Active Wayne Harms PA Active TYLENOL 325 MG ORAL TABLET Take 2 every 6hrs prn A CETAMINOPHEN 35863640447 Active Wayne Harms PA Active ACETAMINOPHEN 500 MG ORAL TABLET prn RICH TAMINOPHEN 70127357488 No Longer Active Wayne Harms PA Active CLARITIN-D 12 HOUR 5-120 MG ORAL TABLET EXTENDED RELEA SE 12 HOUR Take one tablet bid LORATADINE-PSEUDOEPHEDRINE 23610797096 No Longe r Active Wayne Harms PA Active MOBIC 15 MG ORAL TABLET 1 tablet by mouth daily in am with PPI 2 MELOXICAM 71753114100 No Longer Active Wayne Harms PA Acti ve HYDROCORTISONE 2.5 % EXTERNAL CREAM Apply three times a day to affected area HYDROCORTISONE 33605279237 No Longer Active Wayne Harms PA Active VITAMIN D3 1000 UNIT ORAL TABLET Take two daily CHOLECALCIFEROL 25893687977 No Longer Active Wayne Harms PA Active PROBIOTIC ORAL CAPSULE Take one daily PROBIOTIC PRODUCT 61500370928 No Longer Active Wayne Harms PA Active GREEN TEA SLIM ORAL TABLET Take one daily MISC NATURAL PRODUCTS 62557359039 No Longer Active Wayne Harms PA Active BENZONATATE 200 MG ORAL CAPSULE Take one capsule three times a d ay BENZONATATE 57253996674 No Longer Active Wayne Harms PA Act rancho ZITHROMAX Z-SANJANA 250 MG ORAL TABLET 2 today, then 1 daily for 4 d ays AZITHROMYCIN 28241101050 No Longer Active Wayne Harms PA Ac tive ZITHROMAX 250 MG ORAL TABLET 2 po today, then 1 po q days 2-5 20 31/03/18 AZITHROMYCIN 34308698453 No Longer Active Beth Turner RECRUITMENT SPECIALIST Active OMEPRAZOLE 20 MG ORAL CAPSULE DELAYED RELEASE 1 tablet by mo uth daily OMEPRAZOLE 69921846179 Active Supriya Huston RMA Active ZITHROMAX Z-SANJANA 250 MG ORAL TABLET 2x1day,[id number] 2014 AZITHROMYCIN 99510978859 No Longer Active Wayne Harms PA Active FISH OIL 1200 MG ORAL CAPSULE One daily prn OME GA-3 FATTY ACIDS 94819063310 No Longer Active Wayne Harms PA Active CEPHALEXIN 250 MG ORAL CAPSULE Take one tablet qid 201 05/25/29 CEPHALEXIN 89799825517 No Longer Active Wayne Harms PA Active VITAMIN D3 1000 UNIT ORAL TABLET 1qd CHOLEC ALCIFEROL 97996393918 No Longer Active Wayne Harms PA Active B-12 2000 MCG ORAL TABLET 1qd CYANOCOBALAMI N 70057202275 No Longer Active Wayne Harms PA Active ACIPHEX 20 MG ORAL TABLET DELAYED RELEASE 1qd 10/28 RABEPRAZOLE SODIUM 27538932542 No Longer Active Wayne Harms PA Active HYDROCORTISONE 2.5 % EXTERNAL CREAM apply 3-4 times a day to affected area HYDROCORTISONE 25367162990 No Longer Active Wayne Harms PA Active MUCINEX 600 MG ORAL TABLET EXTENDED RELEASE 12 HOUR 2qd GUAIFENESIN 58908316472 No Longer Active Wayne Harms PA Active TUSSIONEX PENNKINETIC ER 10-8 MG/5ML ORAL SUSPENSION E XTENDED RELEASE 5ml po q12hr PRN Cough HYDROCOD POLST-CHLORPHEN POLST 5 9760216586 No Longer Active Wayne Harms PA Active ZITHROMAX 250 MG ORAL TABLET 2 po today, then 1 po q days 2-5 20 26/06/21 AZITHROMYCIN 38373983476 No Longer Active Wayne Harms PA Ac tive CLARITIN 10 MG ORAL TABLET one tablet daily THEO ATADINE 74607284097 No Longer Active Wayne Harms PA Active FLAGYL 500 MG ORAL TABLET 1 tablet by mouth three times daily 20 28/05/03 METRONIDAZOLE 24811396478 No Longer Active Wayne Harms PA A ctive CHERATUSSIN AC 100-10 MG/5ML ORAL SYRUP one teaspoon qid. 9 GUAIFENESIN-CODEINE 96566549558 No Longer Active Wayne Harms PA Act rancho VITAMIN D 1000 UNIT ORAL TABLET 1qd CHOLECA LCIFEROL 66505581129 No Longer Active Wayne Harms PA Active CYMBALTA 60 MG ORAL CAPSULE DELAYED RELEASE PARTICLES 1 cap by mouth daily DULOXETINE HCL 77430121892 No Longer Active Wayne Harms PA Active AMOXICILLIN 500 MG ORAL CAPSULE 2 caps tid for 10days AMOXICILLIN 82393206946 No Longer Active Wayne Harms PA Active CALCIUM + D 600-200 MG-UNIT TABS Take one by mouth daily CALCIUM CARBONATE-VITAMIN D 22407724845 No Longer Active Wayne Harms PA Active CENTRUM SILVER ADULT 50+ ORAL TABLET 1qd 2013 MULTIPLE VITAMINS-MINERALS 26076792957 No Longer Active Wayne Harms PA Active VENLAFAXINE HCL 75 MG ORAL TABLET 1tid VE NLAFAXINE HCL 58765296338 No Longer Active Wayne Harms PA Active CLARITIN 10 MG ORAL TABLET 1 tablet by mouth daily as needed for allergies LORATADINE 83594228853 No Longer Active Wayne Harms PA Acti ve HYDROCORTISONE 2.5 % EXTERNAL CREAM Apply four times a day to af fected area HYDROCORTISONE 40409778995 No Longer Active Wayne Harms PA Active ZITHROMAX 250 MG ORAL TABLET 2 po today, then 1 po q days 2-5 20 26/02/30 AZITHROMYCIN 11197932294 No Longer Active Wayne Harms PA Ac tive ZITHROMAX 250 MG ORAL TABLET 2 po today, then 1 po q days 2-5 20 27/02/16 AZITHROMYCIN 37729438842 No Longer Active Wayne Harms PA Ac tive CYMBALTA 30 MG ORAL CAPSULE DELAYED RELEASE PARTICLES 3 caps daily DULOXETINE HCL 97834389786 No Longer Active Wayne Harms PA Active CYMBALTA 60 MG ORAL CAPSULE DELAYED RELEASE PARTICLES one tablet daily, takes 30mg. with 60mg. to make 90 mg. DULOXETINE HCL 27441362313 No Longer Active Wayne Harms PA Active CYMBALTA 30 MG ORAL CAPSULE DELAYED RELEASE PARTICLES 1 daily wi th 60mg DULOXETINE HCL 25457766906 No Longer Active Wayne Harms PA Active ZITHROMAX 250 MG ORAL TABLET 2 po today, then 1 po q days 2-5 20 26/12/21 AZITHROMYCIN 68040613273 No Longer Active Ismael YANG Active PREDNISONE 20 MG ORAL TABLET 3tab x 2days,2tab x 2days ,1tab x 2days,1/2tab x 2days PREDNISONE 40211572351 No Longer Active Wayne Chuy YANG Active PREMARIN 0.625 MG ORAL TABLET Take one by mouth daily ESTROGENS CONJUGATED 49677121477 No Longer Active Wayne Harms PA Active ZITHROMAX 250 MG ORAL TABLET 2 po today, then 1 po q days 2-5 20 26/06/19 AZITHROMYCIN 95279446112 No Longer Active Nereyda Isaacs Activ e OMEGA-3 1000 MG ORAL CAPSULE 2qd OMEGA-3 FA TTY ACIDS 22631373604 No Longer Active Wayne Harms PA Active BENADRYL ITCH STOPPING 1-0.1 % EXTERNAL CREAM prn DIPHENHYDRAMINE- ZINC ACETATE 61978347339 No Longer Active Wayne Harms PA Active LOTRISONE 1-0.05 % EXTERNAL CREAM Apply bid CLOTRIMAZOLE-BETAMETHASONE 23826719536 No Longer Active Wayne Harms PA Active ZITHROMAX Z-SANJANA 250 MG ORAL TABLET take as directed 20 26/04/19 AZITHROMYCIN 74960689803 No Longer Active Wayne Harms PA Active NYSTATIN 935422 UNIT/GM EXTERNAL POWDER Apply to affected areas BID NYSTATIN 02539042946 No Longer Active Wayne Harms PA Acti ve BENADRYL 25 MG ORAL CAPSULE prn DIPHENHYDRAMINE HCL 77223368151 Active Wayne Harms PA Active LOTRISONE 1-0.05 % EXTERNAL CREAM apply twice a day 20 25/02/17 CLOTRIMAZOLE-BETAMETHASONE 54367433443 No Longer Active Wayne Harms PA Active HYDROCODONE-ACETAMINOPHEN 5-325 MG ORAL TABLET 1-2 every 4hr s prn pain HYDROCODONE-ACETAMINOPHEN 05676371846 No Longer Activ e Wanye Harms PA Active VICODIN 5-300 MG ORAL TABLET 1-2 tabs every 6hrs as needed for p ain HYDROCODONE-ACETAMINOPHEN 13919116020 No Longer Active Wayne Harms PA Active BENADRYL 25 MG ORAL CAPSULE 1prn DIPHENHYDRA MINE HCL 50451623535 No Longer Active Jillina Frazell FACE BURLER Active ROBITUSSIN DM 100-10 MG/5ML ORAL SYRUP 2 teaspoons four times a day DEXTROMETHORPHAN-GUAIFENESIN 95017239621 No Longer Active Jillina Frazell FACE BURLER Active ACIPHEX 20 MG ORAL TABLET DELAYED RELEASE Take one by mouth daily RABEPRAZOLE SODIUM 66810336308 No Longer Active Jillina Frazell FACE BURLER Active TUMS 500 MG ORAL TABLET CHEWABLE prn SADIQ CIUM CARBONATE ANTACID 32954120924 No Longer Active Jillina Frazell FACE BURLER Active PEPTO-BISMOL 524 MG/30ML ORAL SUSPENSION prn 02/26 BISMUTH SUBSALICYLATE 30805034229 No Longer Active Jillina Frazell FACE BURLER Active BACTRIM DS 800-160 MG ORAL TABLET 1bid SULFAMETHOXAZOLE-TRIMETHOPRIM 99870197754 No Longer Active Beth Naff RECRUITMENT SPECIALIST Active GAVISCON EXTRA RELIEF FORMULA CHEW prn A LUM HYDROXIDE-MAG CARBONATE CHEW 74357601627 Active Wayne Harms PA Active DIFLUCAN 150 MG ORAL TABLET 1stat FLUCONAZOL E 35919665339 No Longer Active Wayne Harms PA Active AUGMENTIN 875-125 MG ORAL TABLET 1 tab by mouth twice daily with food AMOXICILLIN-POT CLAVULANATE 46309753741 No Longer Act rancho Wayne Harms PA Active FLUTICASONE PROPIONATE 50 MCG/ACT NASAL SUSPENSION 1 t o 2 sprays each nostril twice a day FLUTICASONE PROPIONATE 36571731092 No Lo nger Active Wayne Harms PA Active HYDROCORTISONE 2.5 % EXTERNAL CREAM apply 2-4 times a day, a s directed, prn HYDROCORTISONE 28825073408 No Longer Active Wayne Harms PA Active ZITHROMAX Z-SANJANA 250 MG ORAL TABLET A ZITHROMYCIN 96754114797 No Longer Active Wayne Harms PA Active SIMVASTATIN 40 MG ORAL TABLET one tablet daily SIMVASTATIN 88519604070 No Longer Active Misty Yoo RECRUITMENT SPECIALIST Active LOVASTATIN 40 MG ORAL TABLET Take one by mouth daily 12/11 LOVASTATIN 00906251157 No Longer Active Misty Yoo RECRUITMENT SPECIALIST Active PREDNISONE 20 MG ORAL TABLET 2 PO qd x 2d, 1 PO qd x 2d, 1/2 PO qd x 2d PREDNISONE 23589265712 No Longer Active Ismael silva PA Active ZITHROMAX 250 MG ORAL TABLET two tablets now and one daily x 4 d ays AZITHROMYCIN 16100703552 No Longer Active Misty Yoo LPN Active ZOLPIDEM TARTRATE 10MG TABS (ZOLPIDEM TARTRATE) 1 at bedtime as needed Active Supriya Huston RMA Active CLOBETASOL PROPIONATE 0.05 % EXTERNAL CREAM apply as directed CLOBETASOL PROPIONATE 31563194552 No Longer Active Wayne Harms PA A ctive CYMBALTA 30 MG ORAL CAPSULE DELAYED RELEASE PARTICLES takes 90mg qod alt with 60mg DULOXETINE HCL 11278139995 No Longer Active Wayne Harm s PA Active ZITHROMAX 250 MG ORAL TABLET 2 po today, then 1 po q days 2-5 20 12/24/14 AZITHROMYCIN 17605564156 No Longer Active Wayne Harms PA Ac tive TRIAMCINOLONE ACETONIDE 0.1 % EXTERNAL CREAM apply qid TRIAMCINOLONE ACETONIDE 47930345161 No Longer Active Wayne Harms PA Active ALPRAZOLAM 0.25 MG ORAL TABLET 1 tab three times a day 201 02/23/14 ALPRAZOLAM 76556218583 No Longer Active Wayne Harms PA Active ZOLPIDEM TARTRATE 5 MG ORAL TABLET 1 at bedtime as needed ZOLPIDEM TARTRATE 12239523440 No Longer Active Beth Turner RECRUITMENT SPECIALIST Active ACETAMINOPHEN 500 MG ORAL TABLET prn ACETAMINOPHEN 500 MG ORAL TABLET 293144 ACETAMINOPHEN Inactive ALPRAZOLAM 0.25 MG ORAL TABLET 1 tab three times a day ALPRAZOLAM 0.25 MG ORAL TABLET 913367 ALPRAZOLAM Inactive AMOXICILLIN 500 MG ORAL CAPSULE Take 1 capsule by mout h three times a day X 10 days AMOXICILLIN 500 MG ORAL CAPSULE 083993 AMOX ICILLIN Inactive AMOXICILLIN 500 MG ORAL CAPSULE 2 caps tid for 10days AMOXICILLIN 500 MG ORAL CAPSULE 866903 AMOXICILLIN Inactive BACTRIM DS 800-160 MG ORAL TABLET 1bid BACTRIM DS 800-160 MG ORAL TABLET 547105 SULFAMETHOXAZOLE-TRIMETHOPRIM Inactive BENADRYL 25 MG ORAL CAPSULE 1prn BENADRYL 25 MG ORAL CAPSULE DIPHENHYDRAMINE HCL Inactive CHERATUSSIN AC 100-10 MG/5ML ORAL SYRUP one teaspoon qid. 9 CHERATUSSIN AC 100-10 MG/5ML ORAL SYRUP GUAIFENESIN-CODEINE Inactive CLARITIN 10 MG ORAL TABLET one tablet daily CLARITIN 10 MG ORAL TABLET 096918 LORATADINE Inactive CLARITIN 10 MG ORAL TABLET 1 tablet by mouth daily as needed for allergies CLARITIN 10 MG ORAL TABLET 940896 LORATADINE Inact rancho FLAGYL 500 MG ORAL TABLET 1 tablet by mouth three times daily 20 28/05/03 FLAGYL 500 MG ORAL TABLET 815258 METRONIDAZOLE Inacti ve HYDROCORTISONE 2.5 % EXTERNAL CREAM apply 3-4 times a day to affected area HYDROCORTISONE 2.5 % EXTERNAL CREAM 012838 HYDRO CORTISONE Inactive HYDROCORTISONE 2.5 % EXTERNAL CREAM Apply three times a day to affected area HYDROCORTISONE 2.5 % EXTERNAL CREAM 370320 HYDRO CORTISONE Inactive HYDROCORTISONE 2.5 % EXTERNAL CREAM Apply four times a day to af fected area HYDROCORTISONE 2.5 % EXTERNAL CREAM 526227 HYDROCORTISO NE Inactive HYDROCORTISONE 2.5 % EXTERNAL CREAM apply 2-4 times a day, a s directed, prn HYDROCORTISONE 2.5 % EXTERNAL CREAM 613704 HYDRO CORTISONE Inactive IBUPROFEN 200 MG ORAL TABLET Take 3 tablets every 6hrs IBUPROFEN 200 MG ORAL TABLET 889927 IBUPROFEN Inactive LOTRISONE 1-0.05 % EXTERNAL CREAM apply twice a day 25/02/17 LOTRISONE 1- 0.05 % EXTERNAL CREAM CLOTRIMAZOLE-BETAMETHASONE Inactive LOTRISONE 1-0.05 % EXTERNAL CREAM Apply bid LOTRISONE 1- 0.05 % EXTERNAL CREAM CLOTRIMAZOLE-BETAMETHASONE Inactive MACROBID 100 MG ORAL CAPSULE 1 cap by mouth twice daily MACROBID 100 MG ORAL CAPSULE 1037699 NITROFURANTOIN MONOHYD MACRO In active POLYTRIM 98731-5.1 UNIT/ML-% OPHTHALMIC SOLUTION 1 gtt to affected eye q3h x 7 days POLYTRIM 34654-5.1 UNIT/ML-% OPH THALMIC SOLUTION 130326 POLYMYXIN B-TRIMETHOPRIM Inactive PREDNISONE 20 MG ORAL TABLET 2 PO qd x 2d, 1 PO qd x 2d, 1/2 PO qd x 2d PREDNISONE 20 MG ORAL TABLET 797965 PREDNISONE Inactive PREDNISONE 20 MG ORAL TABLET Take 2 tablets by mouth d aily for 2 days then 1 tablet daily for 2 days. PREDNISONE 20 MG ORAL T ABLET 022571 PREDNISONE Inactive PREDNISONE 20 MG ORAL TABLET 3tab x 2days,2tab x 2days ,1tab x 2days,1/2tab x 2days PREDNISONE 20 MG ORAL TABLET 829838 PREDNIS ONE Inactive PREMARIN 0.625 MG ORAL TABLET Take one by mouth daily PREMARIN 0.625 MG ORAL TABLET ESTROGENS CONJUGATED Inactive REGLAN 10 MG ORAL TABLET 1 po qid for bowels 3 REGLAN 10 MG ORAL TABLET 138313 METOCLOPRAMIDE HCL Inactive ROBITUSSIN DM 100-10 MG/5ML ORAL SYRUP 2 teaspoons four times a day ROBITUSSIN DM 100-10 MG/5ML ORAL SYRUP DEXTROMET HORPHAN-GUAIFENESIN Inactive TRIAMCINOLONE ACETONIDE 0.1 % EXTERNAL CREAM apply qid TRIAMCINOLONE ACETONIDE 0.1 % EXTERNAL CREAM 0009806 TRIAMCINOLONE A CETONIDE Inactive TUMS 500 MG ORAL TABLET CHEWABLE prn TUMS 500 MG ORAL TABLET CHEWABLE 055018 CALCIUM CARBONATE ANTACID Inactive CEPHALEXIN 250 MG ORAL CAPSULE Take one tablet qid 201 05/25/29 CEPHALEXIN 250 MG ORAL CAPSULE 416917 CEPHALEXIN Inactive CLOBETASOL PROPIONATE 0.05 % EXTERNAL CREAM apply as directed CLOBETASOL PROPIONATE 0.05 % EXTERNAL CREAM 257960 CLOBETASOL PROPI KELVIN Inactive LOVASTATIN 40 MG ORAL TABLET Take one by mouth daily 2 LOVASTATIN 40 MG ORAL TABLET 433811 LOVASTATIN Inactive SIMVASTATIN 40 MG ORAL TABLET one tablet daily SIMVASTATIN 40 MG ORAL TABLET 466439 SIMVASTATIN Inactive VENLAFAXINE HCL 75 MG ORAL TABLET 1tid VENLAFAXINE HCL 75 MG ORAL TABLET 497460 VENLAFAXINE HCL Inactive PEPTO-BISMOL 524 MG/30ML ORAL SUSPENSION prn PEPTO-BISMOL 524 MG/30ML ORAL SUSPENSION BISMUTH SUBSALICYLATE Inactive DIFLUCAN 150 MG ORAL TABLET 1stat DIFLUCAN 150 MG ORAL TABLET 708820 FLUCONAZOLE Inactive DIFLUCAN 150 MG ORAL TABLET 1 by mouth for yeast 03/03 DIFLUCAN 150 MG ORAL TABLET 057784 FLUCONAZOLE Inactive DIFLUCAN 150 MG ORAL TABLET Take one tablet today and repeat in 72 hours DIFLUCAN 150 MG ORAL TABLET 486831 FLUCONAZOLE Inactive VITAMIN D 1000 UNIT ORAL [...] 20 12/24/14 ZITHROMAX 250 MG ORAL TABLET 410570 AZITHROMYCIN Mara ctive ZITHROMAX 250 MG ORAL TABLET two tablets now and one daily x 4 d ays ZITHROMAX 250 MG ORAL TABLET 390866 AZITHROMYCIN Mara ctive ZITHROMAX 250 MG ORAL TABLET 2 po today, then 1 po q days 2-5 20 26/12/21 ZITHROMAX 250 MG ORAL TABLET 705971 AZITHROMYCIN Mara ctive ZITHROMAX 250 MG ORAL TABLET 2 po today, then 1 po q days 2-5 20 27/02/16 ZITHROMAX 250 MG ORAL TABLET 101172 AZITHROMYCIN Pearson ctive ZITHROMAX 250 MG ORAL TABLET 2 po today, then 1 po q days 2-5 20 26/02/30 ZITHROMAX 250 MG ORAL TABLET 221218 AZITHROMYCIN Pearson ctive ZITHROMAX 250 MG ORAL TABLET 2 po today, then 1 po q days 2-5 20 26/06/21 ZITHROMAX 250 MG ORAL TABLET 609198 AZITHROMYCIN Mara ctive ZITHROMAX 250 MG ORAL TABLET 2 po today, then 1 po q days 2-5 20 31/03/18 ZITHROMAX 250 MG ORAL TABLET 582036 AZITHROMYCIN Mara ctive ZITHROMAX 250 MG ORAL TABLET 2 po today, then 1 po q days 2-5 20 26/06/19 ZITHROMAX 250 MG ORAL TABLET 931517 AZITHROMYCIN Mara ctive ACIPHEX 20 MG ORAL TABLET DELAYED RELEASE Take one by mouth daily ACIPHEX 20 MG ORAL TABLET DELAYED RELEASE 265699 RABEPRAZOLE SODIUM Inactive ACIPHEX 20 MG ORAL TABLET DELAYED RELEASE 1qd ACIPHEX 20 MG ORAL TABLET DELAYED RELEASE 071140 RABEPRAZOLE SODIUM Inactive BENZONATATE 200 MG ORAL CAPSULE Take one capsule three times a d ay BENZONATATE 200 MG ORAL CAPSULE 250846 BENZONATATE Inactive BENADRYL ITCH STOPPING 1-0.1 % EXTERNAL CREAM prn BENADRYL ITCH STOPPING 1-0.1 % EXTERNAL CREAM DIPHENHYDRAMINE-ZINC ACETATE Inactive CALCIUM + D 600-200 MG-UNIT TABS Take one by mouth daily CALCIUM + D 600-200 MG-UNIT TABS CALCIUM CARBONATE-VITAMIN D Inactive MOBIC 15 MG ORAL TABLET 1 tablet by mouth daily in am with PPI 2 MOBIC 15 MG ORAL TABLET 299438 MELOXICAM Inactive ZITHROMAX Z-SANJANA 250 MG ORAL TABLET Take 2 tablets toda y and 1 each day till gone ZITHROMAX Z-SANJANA 250 MG ORAL TABLET 876553 A ZITHROMYCIN Inactive ZITHROMAX Z-SANJANA 250 MG ORAL TABLET 2x1day,0m7kuhl 2014 ZITHROMAX Z-SANJANA 250 MG ORAL TABLET 288309 AZITHROMYCIN Inact rancho ZITHROMAX Z-SANJANA 250 MG ORAL TABLET take as directed 26/04/19 ZITHROMAX Z-SANJANA 250 MG ORAL TABLET 340873 AZITHROMYCIN Inact rancho ZITHROMAX Z-SANJANA 250 MG ORAL TABLET 03/03 ZITHROMAX Z-SANJANA 250 MG ORAL TABLET 426645 AZITHROMYCIN Inactive ZITHROMAX Z-SANJANA 250 MG ORAL TABLET 2 today, then 1 daily for 4 d ays ZITHROMAX Z-SANJANA 250 MG ORAL TABLET 731458 AZITHROMYCIN Inactive FLONASE 50 MCG/ACT NASAL SUSPENSION 1 spray each nostr il twice daily for allergies and runny nose FLONASE 50 MCG/ ACT NASAL SUSPENSION FLUTICASONE PROPIONATE Inactive OMEGA-3 1000 MG ORAL CAPSULE 2qd OMEGA-3 1000 MG ORAL CAPSULE 821974 OMEGA-3 FATTY ACIDS Inactive AMOXICILLIN-POT CLAVULANATE 875-125 MG ORAL TABLET 1 pill by mouth twice daily AMOXICILLIN-POT CLAVULANATE 875-125 MG ORAL TABL ET 685961 AMOXICILLIN-POT CLAVULANATE Inactive HYDROCODONE-ACETAMINOPHEN 5-325 MG ORAL TABLET 1-2 every 4hr s prn pain HYDROCODONE-ACETAMINOPHEN 5-325 MG ORAL TABLET 8 13373 HYDROCODONE-ACETAMINOPHEN Inactive MUCINEX 600 MG ORAL TABLET EXTENDED RELEASE 12 HOUR 2qd MUCINEX 600 MG ORAL TABLET EXTENDED RELEASE 12 HOUR GUAIFENESIN Inactive NYSTATIN 254274 UNIT/GM EXTERNAL POWDER Apply to affected areas BID NYSTATIN 803323 UNIT/GM EXTERNAL POWDER 976085 NYSTATIN Inactive CYMBALTA 60 MG ORAL CAPSULE DELAYED RELEASE PARTICLES one tablet daily, takes 30mg. with 60mg. to make 90 mg. CYMBALTA 60 MG ORAL CAPSULE DELAYED RELEASE PARTICLES 080696 DULOXETINE HCL Inacti ve CYMBALTA 60 MG ORAL CAPSULE DELAYED RELEASE PARTICLES 1 cap by mouth daily CYMBALTA 60 MG ORAL CAPSULE DELAYED RELE ASE PARTICLES 561943 DULOXETINE HCL Inactive CYMBALTA 30 MG ORAL CAPSULE DELAYED RELEASE PARTICLES takes 90mg qod alt with 60mg CYMBALTA 30 MG ORAL CAPSULE DELAYED RELEA SE PARTICLES 623946 DULOXETINE HCL Inactive CYMBALTA 30 MG ORAL CAPSULE DELAYED RELEASE PARTICLES 3 caps daily CYMBALTA 30 MG ORAL CAPSULE DELAYED RELEASE PARTICLES 545165 DULOXE ROSANNE HCL Inactive CYMBALTA 30 MG ORAL CAPSULE DELAYED RELEASE PARTICLES 1 daily wi th 60mg CYMBALTA 30 MG ORAL CAPSULE DELAYED RELEASE PARTICLES 420015 DULOXETINE HCL Inactive FLUTICASONE PROPIONATE 50 MCG/ACT NASAL SUSPENSION 1 t o 2 sprays each nostril twice a day FLUTICASONE PROPIONA TE 50 MCG/ACT NASAL SUSPENSION 8836764 FLUTICASONE PROPIONATE Inactive VITAMIN D3 1000 UNIT [...] CAPSULE Take one daily PROBIOTIC ORAL CAPSULE 8678512 PROBIOTIC PRODUCT Inactive ZYRTEC ALLERGY 10 MG [...] RELEASE HYDROCOD POLST-CHLORPHEN POLST I nactive ADK 5856-3588-122 UNIT-MCG ORAL CAPSULE 1 daily 2 ADK 1556-7571-018 UNIT-MCG ORAL CAPSULE VITAMINS A D K [...] Fluarix, Agriflu(>= 18 yo)) Fluzone (>=3 yrs.) [[id number]] Seasonal influenza vaccine, injectable, containing preservative, for > 3 years old (Afluria, FluLaval, Fluzone, Fluvirin, Fluarix, Agriflu(>= 18 yo)) Fluzone (>3 yrs.) [[id number]] Seasonal influenza vaccine, injectable, containing preservative, for > 3 years old (Afluria, FluLaval, Fluzone, Fluvirin, Fluarix, Agriflu(>= 18 yo)) Fluarix (>3 yrs.) [[id number]] Diagnostic Results Date Name Value Unit Range Description Lab Report: CBC, Comp. Metabolic Panel, Lipid Panel, Magnesium - Chemistry sodium, serum 138 mmol/L [phone]/09/02 carbon dioxide, venous blood 28.0 mmol/L 21.0-32 [...] 0.20 mg/dL 0.00-1.00 cholesterol, serum 228 mg/dL [phone]/09/02 triglyceride, serum, fasting 236 mg/dL 30-200 HDL [...] 0.36-3.74 Encounters Code Encounter Date Provider Facility CPT-61463 43100: Ofc Vst-Est Level IV-Moderate MDM or 30-39 minutes 17:48:09 CDT Ashley Yang [facility] [place] CPT-41023 [id number] Vst-Est Level III 17:07:11 CDT Jenny Yang [facility] [place] CPT-04269 [id number] Vst-Est Level III 17:51:44 DAMPENER OPERATOR [place] [facility] [place] CPT-62442 Level 3 Est. Patient 11:09:39 CDT Viviana Rubio [facility] [place] CPT-23093 [id number] Vst-Est Level IV 09:14:31 CDT Conchis Yang [facility] [place] CPT-29651 [id number] Vst-Est Level III 22:05:50 CDT Jenny Yang [facility] [place] CPT-04996 Level 3 Est. Patient 15:00:02 DAMPENER OPERATOR Will jarquin [facility] CPT-00926 Level 2 Est. Patient 13:46:20 CDT Ashley Meraz [facility] [place] CPT-74346 Level 2 Est. Patient 13:45:36 CDT Ashley Meraz [facility] [place] CPT-98999 Level 3 Est. Patient 15:52:07 CDT Ashley Meraz [facility] [place] CPT-87077 Level 3 Est. Patient 08:20:37 CDT Ashley Meraz [facility] [place] CPT-88921 Level 3 Est. Patient 15:06:41 CDT Derrick donaldson MD [facility] CPT-71326 Level 3 Est. Patient 11:13:21 DAMPENER OPERATOR Derrick donaldson MD [facility] CPT-63840 Level 3 Est. Patient 12:54:25 DAMPENER OPERATOR Ashley Meraz [facility] [place] CPT-60849 Level 3 Est. Patient 23:34:49 DAMPENER OPERATOR Ashley Meraz madonna [facility] [place] CPT-70251 Level 3 Est. Patient 16:37:09 DAMPENER OPERATOR Ashley Meraz [facility] [place] CPT-56612 Level 3 Est. Patient 11:59:30 DAMPENER OPERATOR Ashley Meraz [facility] [place] CPT-97423 Level 4 Est. Patient 07:40:13 CDT Wayne delatorre [facility] [place] CPT-23553 Level 4 Est. Patient 08:06:18 CDT [facility] CPT-01120 Level 3 Est. Patient 11:14:45 CDT Wayne delatorre PA [facility] [place] CPT-25570 Level 3 Est. Patient 10:14:55 CDT Wayne delatorre [facility] CPT-94737 Level 4 Est. Patient 15:23:47 CDT Wayne delatorre PA [facility] CPT-94348 Level 3 Est. Patient 07:50:51 DAMPENER OPERATOR Wayne [facility]atorre [facility] CPT-99134 Level 3 Est. Patient 14:47:52 CDT Wayne delatorre [facility] CPT-31300 Level 3 Est. Patient 11:28:46 CDT Wayne delatorre [facility] CPT-91138 Level 4 Est. Patient 14:48:43 CDT [facility] CPT-95928 Level 3 Est. Patient 14:10:18 DAMPENER OPERATOR Wayne delatorre PA [facility] CPT-46324 Level 3 Est. Patient 16:44:33 DAMPENER OPERATOR Wayne delatorre [facility] CPT-73970 Level 4 Est. Patient 08:22:34 DAMPENER OPERATOR Wyane delatorre [facility] CPT-92010 Level 4 Est. Patient 07:10:30 CDT Wayne delatorre PA [facility] [place] [facility] CPT-27836 Level 3 Est. Patient 14:50:20 DAMPENER OPERATOR Wayne delatorre PA [facility] CPT-13380 Level 3 Est. Patient 09:46:08 DAMPENER OPERATOR Zuleika cha APRN [facility] [place] [facility] CPT-45936 Level 4 Est. Patient 07:56:24 DAMPENER OPERATOR Wayne delatorre [facility] [place] [facility] CPT-70694 Level 3 Est. Patient 12:13:53 CDT Ismael Denton [facility] [place] [facility] CPT-39963 Level 4 Est. Patient 12:28:51 DAMPENER OPERATOR Wayne delatorre [facility] [place] [facility] CPT-54573 Level 3 Est. Patient 15:23:42 DAMPENER OPERATOR Wayne delatorre [facility] [place] [facility] CPT-50119 Level 3 Est. Patient 06:34:33 DAMPENER OPERATOR Wayne delatorre [facility] [place] [facility] Procedures Code Procedure Name Date Entry Date Standard Desc ription CPT-34941 Allergy Admin 2 16:06:08 CDT CPT-46301 Allergy Admin 2 16:51:42 CDT CPT-49400 Allergy Admin 2 16:26:50 CDT CPT-08523 Allergy Admin 2 17:02:53 CDT CPT-48510 Allergy Admin 2 16:32:35 CDT CPT-06123 Allergy Admin 2 16:26:27 CDT CPT-J3420 Vitamin B12 1000mcg (Cyanocobalamin) 16:32:13 CDT CPT-77697 Abx/Therapy Injection 16:32:13 CDT CPT-75795 Allergy Admin 2 16:32:12 CDT CPT-81525 Allergy Admin 2 16:05:03 CDT CPT-99404 Allergy Admin 2 16:35:15 CDT CPT-93616 Allergy Admin 2 16:20:41 CDT CPT-23812 Allergy Admin 2 11:25:21 CDT CPT-69078 Allergy Admin 2 15:46:12 CDT CPT-GH6127G (4274F) Influenza immunization administe red or previously received 17:51:44 DAMPENER OPERATOR CPT-42700 Spec Collection and Handling Fee 10:45:[address] CPT-AT7356I (4274F) Influenza immunization administe red or previously received 10:20:17 CDT CPT-25544 Prv Med Est Pt 40-64yrs 16:26:57 CDT CPT-07774 Venipuncture Draw Fee 11:08:31 CDT CPT-44367 Magnesium - LAB USE ONLY 11:08:31 CDT 10/15 CPT-05777 TSH - LAB USE ONLY 11:08:31 CDT CPT-99336 Lipid - LAB USE ONLY 11:08:30 CDT 2 CPT-57527 CMP - LAB USE ONLY 11:08:30 CDT CPT-38259 CBC - LAB USE ONLY 11:08:30 CDT CPT-57533 Spec Collection and Handling Fee 16:14:51 C DT CPT-14308 UA w micro - LAB USE ONLY 16:14:51 CDT 2018 CPT-06001 Prv Med Est Pt 40-64yrs 08:34:49 CDT 10/01 CPT-89187 Sed Rate - LAB USE ONLY 10:50:49 CDT 10/02 CPT-56503 TSH - LAB USE ONLY 10:50:49 CDT CPT-64923 Lipid - LAB USE ONLY 10:50:49 CDT 0 CPT-26803 Magnesium - LAB USE ONLY 10:50:49 CDT 10/02 CPT-02581 CMP - LAB USE ONLY 10:50:49 CDT CPT-81238 CBC - LAB USE ONLY 10:50:49 CDT CPT-86273 Venipuncture Draw Fee 10:50:49 CDT CPT-78382 IV Hydration < or = 1 hr 22:05:50 CDT 04/16 CPT-J7030 Normal Saline 1000 mL 22:05:50 CDT CPT-63257 Abx/Therapy Injection 16:31:51 DAMPENER OPERATOR CPT-J2950 Phenergan 25 mg 16:31:51 DAMPENER OPERATOR CPT-46953 Abx/Therapy Injection 16:39:40 CDT CPT-70206 First Vx - Ix admin via ID I M or jet injects without counseling by physician 16:39:39 CDT CPT-85794 Prv Med Est Pt 40-64yrs 16:33:10 CDT 11/10 CPT-JTINJ Asp/Joint Injection 16:13:36 CDT CPT-00626 Allergy Admin 2 16:54:52 CDT CPT-22064 Allergy Admin 2 16:46:15 CDT CPT-44619 Allergy Admin 2 11:29:09 CDT CPT-10395 Allergy Admin 2 17:05:15 CDT CPT-84969 Allergy Admin 2 12:31:51 CDT CPT-47847 Allergy Admin 2 15:40:56 CDT CPT-71739 CBC - LAB USE ONLY 09:49:24 CDT CPT-03393 CMP - LAB USE ONLY 09:49:24 CDT CPT-12182 Lipid - LAB USE ONLY 09:49:24 CDT 8 CPT-39526 Venipuncture Draw Fee 09:49:24 CDT CPT-19685 Allergy Admin 2 10:46:11 CDT CPT-JTINJ Asp/Joint Injection 09:52:58 CDT CPT-51368 Skin tag rem 1-15 13:46:20 CDT CPT-61964 Knee, right, 3V - XRAY USE ONLY 13:07:09 CD T CPT-23750 Allergy Admin 2 11:56:38 CDT CPT-51696 Allergy Admin 2 12:00:55 CDT CPT-13829 Allergy Admin 2 16:42:13 CDT CPT-19394 Allergy Admin 2 16:27:55 CDT CPT-12285 Allergy Admin 2 13:24:26 CDT CPT-17178 Allergy Admin 2 17:17:57 DAMPENER OPERATOR CPT-50466 Allergy Admin 2 16:23:22 DAMPENER OPERATOR CPT-50628 Allergy Admin 2 16:26:55 DAMPENER OPERATOR CPT-18078 Allergy Admin 2 16:32:33 DAMPENER OPERATOR CPT-54646 Allergy Admin 2 17:43:40 DAMPENER OPERATOR CPT-48419 Allergy Admin 2 16:26:07 DAMPENER OPERATOR CPT-47751 Allergy Admin 2 12:31:50 DAMPENER OPERATOR CPT-09526 Allergy Admin 2 16:40:38 DAMPENER OPERATOR CPT-31726 Allergy Admin 2 17:07:36 CDT CPT-G0008 Administration of Influenza Virus Vaccine 17:01:01 CDT CPT-88415 First Vx - Ix admin via ID I M or jet injects without counseling by physician 17:01:01 CDT CPT-45939 Allergy Admin 2 12:06:54 CDT CPT-42068 Allergy Admin 2 17:04:46 CDT CPT-86265 Allergy Admin 2 16:34:48 CDT CPT-41725 Allergy Admin 2 17:04:51 CDT CPT-20203 Allergy Admin 2 16:25:14 CDT CPT-78702 Allergy Admin 2 10:52:02 CDT CPT-70879 Allergy Admin 2 11:45:31 CDT CPT-47534 Allergy Admin 2 12:02:20 CDT CPT-59798 Allergy Admin 2 15:47:29 CDT CPT-33887 Allergy Admin 2 13:25:44 CDT CPT-30730 Allergy Admin 2 10:51:13 CDT CPT-47213 CBC - LAB USE ONLY 10:44:39 CDT CPT-80799 CMP - LAB USE ONLY 10:44:39 CDT CPT-03320 Lipid - LAB USE ONLY 10:44:39 CDT 9 CPT-21892 Venipuncture Draw Fee 10:44:38 CDT CPT-55551 Allergy Admin 2 12:25:22 CDT CPT-37127 Allergy Admin 2 12:41:34 CDT CPT-43514 Allergy Admin 2 15:29:46 CDT CPT-61676 Allergy Admin 2 14:46:53 CDT CPT-68680 Allergy Admin 2 14:16:16 CDT CPT-49887 Allergy Admin 2 16:55:26 CDT CPT-43417 Allergy Admin 2 10:12:02 CDT CPT-73842 Allergy Admin 2 14:53:56 CDT CPT-75911 Allergy Admin 2 17:01:54 CDT CPT-16856 Allergy Admin 2 09:36:02 CDT CPT-75448 Allergy Admin 2 16:53:26 DAMPENER OPERATOR CPT-32139 Allergy Admin 2 16:59:41 [facility] CPT-82892 Allergy Admin 2 16:36:44 [facility] CPT-03802 Allergy Admin 2 16:17:16 [facility] CPT-02860 Allergy Admin 2 17:08:10 [facility] CPT-93253 Allergy Admin 2 12:16:08 [facility] CPT-24218 Allergy Admin 2 16:47:30 DAMPENER OPERATOR CPT-75022 Allergy Admin 2 16:59:44 DAMPENER OPERATOR CPT-39474 Allergy Admin 2 12:48:53 DAMPENER OPERATOR CPT-07488 Allergy Admin 2 10:19:48 DAMPENER OPERATOR CPT-13873 Allergy Admin 2 12:40:17 DAMPENER OPERATOR CPT-90708 Abx/Therapy Injection 17:21:59 DAMPENER OPERATOR CPT-02420 First Vx - Ix admin via ID I M or jet injects without counseling by physician 17:21:57 DAMPENER OPERATOR CPT-95469 Allergy Admin 2 17:20:12 DAMPENER OPERATOR CPT-52460 Allergy Admin 2 11:12:50 DAMPENER OPERATOR CPT-27113 Allergy Admin 2 17:02:39 CDT CPT-55133 BMP - LAB USE ONLY 10:33:02 CDT CPT-00421 CBC - LAB USE ONLY 10:33:02 CDT CPT-40530 Venipuncture Draw Fee 10:33:02 CDT CPT-62136 Abx/Therapy Injection 12:29:08 CDT CPT-33014 Allergy Admin 2 10:39:48 CDT CPT-36669 Allergy Admin 2 10:55:47 CDT CPT-PV Prev. Care Visit 10:10:00 CDT CPT-26476 Allergy Admin 2 11:31:20 CDT CPT-59865 Allergy Admin 2 16:53:45 CDT CPT-94464 Allergy Admin 2 16:36:42 CDT CPT-87768 Allergy Admin 2 16:30:19 CDT CPT-50389 Allergy Admin 2 15:39:35 CDT CPT-38018 Allergy Admin 2 17:51:32 CDT CPT-95728 Allergy Admin 2 11:50:50 CDT CPT-PV Prev. Care Visit 14:09:05 CDT CPT-50793 Allergy Admin 2 13:37:39 CDT CPT-89764 Abx/Therapy Injection 12:17:43 CDT CPT-52080 Venipuncture Draw Fee 10:39:55 CDT CPT-75685 Allergy Admin 2 12:04:53 CDT CPT-73587 Allergy Admin 2 10:04:39 CDT CPT-74232 Allergy Admin 2 12:15:35 CDT CPT-66095 Allergy Admin 2 17:04:36 CDT CPT-08182 Allergy Admin 2 16:25:49 CDT CPT-64533 Allergy Admin 2 17:30:06 CDT CPT-93380 Allergy Admin 2 10:11:48 CDT CPT-51776 Allergy Admin 2 17:06:13 CDT CPT-27036 Abx/Therapy Injection 12:23:07 CDT CPT-J0702 Celestone 12 mg (Betamethasone) 12:23:07 CD T CPT-40002 Venipuncture Draw Fee 10:26:42 CDT CPT-27673 Allergy Admin 2 12:10:01 CDT CPT-68242 Allergy Admin 2 15:13:57 DAMPENER OPERATOR CPT-45347 Allergy Admin 2 16:55:22 DAMPENER OPERATOR CPT-91358 Allergy Admin 2 10:13:46 DAMPENER OPERATOR CPT-06661 Venipuncture Draw Fee 10:06:08 DAMPENER OPERATOR CPT-02392 Allergy Admin 2 16:15:41 DAMPENER OPERATOR CPT-26971 Allergy Admin 2 16:40:21 DAMPENER OPERATOR CPT-84460 Allergy Admin 2 16:31:48 DAMPENER OPERATOR CPT-47824 Allergy Admin 2 16:38:26 DAMPENER OPERATOR CPT-69540 Allergy Admin 2 16:40:08 DAMPENER OPERATOR CPT-25766 Allergy Admin 2 08:34:27 DAMPENER OPERATOR CPT-25075 Allergy Admin 2 14:27:45 DAMPENER OPERATOR CPT-45521 Destruction bgn lsn up to 14 09:41:27 DAMPENER OPERATOR 2 CPT-09597 Allergy Admin 2 17:45:17 DAMPENER OPERATOR CPT-25920 Allergy Admin 2 14:59:03 DAMPENER OPERATOR CPT-42885 Allergy Admin 2 12:49:42 CDT CPT-84379 Administration single or combination vac cine inc oral 15:01:57 CDT CPT-27629 Fluzone Quadrivalent Intramuscular Suspe nsion 0.5 ML 15:01:57 CDT CPT-59348 Allergy Admin 2 15:07:08 CDT CPT-96200 Allergy Admin 2 15:39:01 CDT CPT-37536 Allergy Admin 2 17:40:11 CDT CPT-73466 Allergy Admin 2 16:07:08 CDT CPT-54026 Allergy Admin 2 16:08:07 CDT CPT-55794 Venipuncture Draw Fee 09:34:29 CDT CPT-15253 Allergy Admin 2 16:27:43 CDT CPT-41026 Allergy Admin 2 15:53:10 CDT CPT-89812 Allergy Admin 2 15:42:29 CDT CPT-25178 Allergy Admin 2 11:26:14 CDT CPT-31460 Allergy Admin 2 10:36:24 CDT CPT-80043 Allergy Admin 2 16:53:37 CDT CPT-63496 Allergy Admin 2 11:21:44 CDT CPT-85722 Allergy Admin 2 10:50:40 CDT CPT-70769 Allergy Admin 2 11:19:11 CDT CPT-02993 Venipuncture Draw Fee 11:12:25 CDT CPT-75063 Allergy Admin 2 11:14:51 CDT CPT-54525 Allergy Admin 2 16:53:11 CDT CPT-17417 Allergy Admin 2 11:45:56 CDT CPT-58080 Allergy Admin 2 12:51:39 CDT CPT-59933 Allergy Admin 2 12:08:56 CDT CPT-80114 Allergy Admin 2 15:29:45 CDT CPT-95375 Allergy Admin 2 16:34:01 CDT CPT-62513 Allergy Admin 2 16:36:46 CDT CPT-59548 Allergy Admin 2 15:19:16 CDT CPT-32295 Allergy Admin 2 16:13:25 CDT CPT-61911 Allergy Admin 2 17:06:17 CDT CPT-74476 Allergy Admin 2 10:42:10 DAMPENER OPERATOR CPT-09090 Allergy Admin 2 17:33:16 DAMPENER OPERATOR CPT-10483 Allergy Admin 2 10:53:30 DAMPENER OPERATOR CPT-77584 Allergy Admin 2 14:18:24 DAMPENER OPERATOR CPT-74054 Allergy Admin 2 10:18:29 DAMPENER OPERATOR CPT-53587 Allergy Admin 2 12:57:40 DAMPENER OPERATOR CPT-90863 Allergy Admin 2 16:53:33 DAMPENER OPERATOR CPT-06263 Allergy Admin 2 12:43:00 DAMPENER OPERATOR CPT-79561 Allergy Admin 2 13:14:09 DAMPENER OPERATOR CPT-39894 Pneumovax 23 Injection Injectable 25 MCG /0.5ML 09:51:29 DAMPENER OPERATOR CPT-G0009 Administration of Pneumococcal Vaccine 09:51:29 DAMPENER OPERATOR CPT-73626 Influenza split virus > age 3 09:51:29 DAMPENER OPERATOR CPT-G0008 Administration of Influenza Virus Vaccine 02/23 09:51:29 DAMPENER OPERATOR CPT-53408 Venipuncture Draw Fee 10:31:06 CDT CPT-J0702 Celestone 12 mg (Betamethasone) 11:34:17 CD T CPT-45701 Abx/Therapy Injection 11:34:17 CDT CPT-34643 Chest 2V Frontal and Lat 11:31:47 CDT 07/04 CPT-58510 Venipuncture Draw Fee 11:31:47 CDT CPT-40812 Allergy Admin 2 14:31:05 CDT CPT-09297 EKG Trac and Interp 08:42:32 CDT CPT-76850 Chest 2V Frontal and Lat 08:42:32 CDT 05/28 CPT-77634 Venipuncture Draw Fee 08:39:02 CDT CPT-42275 Allergy Admin 2 16:59:09 CDT CPT-10176 Allergy Admin 2 17:06:11 CDT CPT-91887 Allergy Admin 2 16:04:36 CDT CPT-09324 Venipuncture Draw Fee 16:32:44 DAMPENER OPERATOR CPT-72439 Venipuncture Draw Fee 10:54:37 DAMPENER OPERATOR CPT-44254 Allergy Admin 2 14:53:55 DAMPENER OPERATOR CPT-38964 Allergy Admin 2 10:23:58 DAMPENER OPERATOR CPT-59279 First Vx Component - Ix admi n via ID IM or jet inj without physician counseling 15:34:26 DAMPENER OPERATOR CPT-44147 Fluzone (>=3 yrs.) 15:34:26 DAMPENER OPERATOR CPT-57102 Allergy Admin 2 15:56:02 DAMPENER OPERATOR CPT-58549 Allergy Admin 2 11:08:58 DAMPENER OPERATOR CPT-19194 Allergy Admin 2 10:51:36 DAMPENER OPERATOR CPT-92637 Allergy Admin 2 15:38:19 DAMPENER OPERATOR CPT-38878 Allergy Admin 2 15:12:46 CDT CPT-49845 Allergy Admin 2 10:28:50 CDT CPT-33472 Allergy Admin 2 16:35:33 CDT CPT-60581 Allergy Admin 2 10:14:18 CDT CPT-44303 Abx/Therapy Injection 09:06:45 CDT CPT-J0702 Celestone 6 mg (Betamethasone) 09:06:45 CDT CPT-97980 Allergy Admin 2 15:51:15 CDT CPT-53192 Allergy Admin 2 10:40:16 CDT CPT-54895 Allergy Admin 2 16:35:55 CDT CPT-13292 Allergy Admin 2 13:12:52 CDT CPT-81104 Allergy Admin 2 16:06:50 CDT CPT-01216 Allergy Admin 2 11:04:24 CDT CPT-33503 Allergy Admin 2 10:44:50 CDT CPT-31718 Allergy Admin 2 15:13:40 CDT CPT-14025 Allergy Admin 2 15:00:03 CDT CPT-19094 Allergy Admin 2 10:37:38 CDT CPT-30799 Venipuncture Draw Fee 09:16:43 DAMPENER OPERATOR CPT-78609 Allergy Admin 2 11:15:59 DAMPENER OPERATOR CPT-42857 Postop F/U Visit 10:10:52 DAMPENER OPERATOR CPT-78692 Allergy Admin 2 13:05:05 DAMPENER OPERATOR CPT-06483 Postop F/U Visit 19:45:16 DAMPENER OPERATOR CPT-50376 Allergy Admin 2 11:52:35 DAMPENER OPERATOR CPT-47295 Allergy Admin 2 10:49:22 DAMPENER OPERATOR CPT-OV Office Visit 13:55:55 DAMPENER OPERATOR CPT-16912 Allergy Admin 2 12:54:28 DAMPENER OPERATOR CPT-OV Office Visit 14:04:48 DAMPENER OPERATOR CPT-86693 Venipuncture Draw Fee 10:29:14 DAMPENER OPERATOR CPT-68606 Allergy Admin 2 11:24:43 DAMPENER OPERATOR CPT-91363 Knee 3V 11:00:12 DAMPENER OPERATOR CPT-85483 C-Spine Min 4V 11:00:12 DAMPENER OPERATOR CPT-48359 Allergy Admin 2 13:38:40 DAMPENER OPERATOR CPT-69777 Venipuncture Draw Fee 11:33:37 CDT CPT-02012 Allergy Admin 2 15:34:37 CDT CPT-48764 Allergy Admin 2 14:11:42 CDT CPT-87971 Administration single or combination vac cine inc oral 12:51:42 CDT CPT-54275 Influenza split virus > age 3 12:51:42 CDT CPT-58450 Allergy Admin 2 11:58:43 CDT CPT-60816 Allergy Admin 2 11:29:32 CDT CPT-37139 Allergy Admin 2 10:55:19 CDT CPT-86441 Allergy Admin 2 12:38:54 CDT CPT-94713 Allergy Admin 2 13:01:47 CDT CPT-95725 Abx/Therapy Injection 12:41:18 CDT CPT-J0702 Celestone 12 mg (Betamethasone) 12:41:18 CD T CPT-01681 Abx/Therapy Injection 16:33:09 CDT CPT-J0702 Celestone 12 mg (Betamethasone) 16:33:09 CD T CPT-33857 Allergy Admin 2 15:49:09 CDT CPT-46818 Allergy Admin 2 12:08:56 CDT CPT-40420 Allergy Admin 2 12:19:10 CDT CPT-06932 Allergy Admin 2 12:46:56 CDT CPT-54618 Allergy Admin 2 15:05:13 CDT CPT-31309 Allergy Admin 2 15:36:20 CDT CPT-81643 Allergy Admin 2 09:58:47 DAMPENER OPERATOR CPT-45680 Allergy Admin 2 12:18:06 DAMPENER OPERATOR CPT-81066 Allergy Admin 2 10:01:48 DAMPENER OPERATOR CPT-59837 Allergy Admin 2 12:17:53 DAMPENER OPERATOR CPT-71990 Allergy Admin 2 10:06:44 DAMPENER OPERATOR CPT-27832 Allergy Admin 2 10:13:04 DAMPENER OPERATOR CPT-41548 Venipuncture Draw Fee 10:09:07 DAMPENER OPERATOR CPT-62620 Bone Density 12:24:51 DAMPENER OPERATOR CPT-52474 Allergy Admin 2 11:29:41 DAMPENER OPERATOR CPT-45382 Allergy Admin 2 16:07:15 DAMPENER OPERATOR CPT-13363 Breathing Treatment 06:34:33 DAMPENER OPERATOR CPT-J0702 Celestone 12 mg (Betamethasone) 06:34:33 CS T CPT-52990 Abx/Therapy Injection 06:34:33 DAMPENER OPERATOR CPT-06850 Breathing Tx 11:07:33 DAMPENER OPERATOR CPT-66211 Allergy Admin 2 10:02:33 CDT CPT-67337 Allergy Admin 2 10:02:33 CDT CPT-89173 Allergy Admin 2 15:26:19 CDT CPT-08569 Administration single or combination vac cine inc oral 15:41:12 CDT CPT-37338 Influenza split virus > age 3 15:41:12 CDT
--- OUTSIDE RECORDS SUMMARY | 2020-09-15 14:35 | XMS REPORT | Clinical Summary ---
Author Author Admin, Supriya Zuniga Organization [facility] Address Unknown Phone Unavailable Allergies, Adverse [...] Yang APRN Pruritus vulvae Active Ashley Yokum WIRE STEWARD Screening mammogram V76.12 Resolved Ashley Yokum A PRN Other screening mammogram Sinusitis, acute maxillary 461.0 Inactive 7 Ashley Yokum WIRE STEWARD Acute maxillary sinusitis Diarrhea, acute 787.91 Resolved Ashley Yokum WIRE STEWARD Diarrhea Vaginal candidiasis 112.1 Resolved Ashley Yokum A PRN Candidiasis of vulva and vagina Accidental fall E888.9 Resolved Ashley Yokum WIRE STEWARD Unspecified fall Contusion of left hand, initial encounter 923.20 Resol burak Ashley Yokum WIRE STEWARD Contusion of hand(s) Contusion of right upper arm, subsequent encounter V58.89 201 09/14/21 Resolved Ashley Yokum WIRE STEWARD Encounter for other specified a ftercare Ganglion cyst of left wrist 727.41 Active Derrick Younger MD Ganglion of joint Body Mass Index 31.0-31.9 Adult Resolved 2017 Ashley Yokum WIRE STEWARD Body Mass Index 31.0-31.9, adult Plantar fasciitis 728.71 Active Ashley Yokum WIRE STEWARD Plantar fascial fibromatosis Bronchitis, acute 466.0 Inactive Ashley Yokum APR N Acute bronchitis Body Mass Index 30.0-30.9 Adult Resolved 2017 Ashley Yokum WIRE STEWARD Body Mass Index 30.0-30.9, adult Allergic conjunctivitis, bilateral 372.14 Resolved 2 Ashley Yokum WIRE STEWARD Other chronic allergic conjunctivitis Skin tags; irritated/inflammed 701.9 Resolved 11/10 Ashley Yokum WIRE STEWARD Unspecified hypertrophic and atrophic co nditions of skin Body Mass Index 31.0-31.9 Adult Refinement 2017 Ashley Yokum WIRE STEWARD Body Mass Index 31.0-31.9, adult BMI 30-30.9 Refinement Ashley Yokum WIRE STEWARD Body Mass Index 31.0-31.9, adult BMI 31-31.9 Refinement Ashley Yokum WIRE STEWARD Body Mass Index 31.0-31.9, adult BMI 32-32.9 Refinement Lois Faith RN Body Mass Index 31.0-31.9, adult BMI 31-31.9 Active Viviana Rubio APRN-Julieta Body Mass Index 31.0-31.9, adult Major depression, recurrent, moderate 296.32 Active Ashley Yokum WIRE STEWARD Major depressive disorder, recurrent epi sode, moderate degree Obesity Class I (BMI 30-34.9) Active Ashley Y okum WIRE STEWARD Obesity, unspecified Nausea and vomiting 787.01 Resolved Ashley Yokum A PRN Nausea with vomiting Gastroenteritis acute 558.9 Resolved Ashley Yokum WIRE STEWARD Other and unspecified noninfectious gastroenteritis and colitis GERD 530.81 Active Ashley Yokum WIRE STEWARD E sophageal reflux Joint pain 719.40 Resolved Ashley Yokum WIRE STEWARD Pain in joint, site unspecified Preventive health care, adult V70.0 Inactive /06 Ashley Yokum WIRE STEWARD Routine general medical examination at a health care facility Blood in urine 599.70 Resolved Ashley Yokum WIRE STEWARD Hematuria, unspecified Other abnormal findings in urine Resolved Ashley Yokum WIRE STEWARD Urinary tract infection 599.0 Inactive Ashley Yok um WIRE STEWARD Urinary tract infection, site not specified Chafing of skin 709.8 Resolved Ashley Yokum WIRE STEWARD Other specified disorders of skin Preventive care V70.0 Active Supriya Betzaida A Routine general medical examination at a health care facility Gynecological examination, routine V72.3 Inactive 2 Ashley Yokum WIRE STEWARD Special investigations and e xaminations - Gynecological examination Near syncope 780.2 Resolved Sahley Yokum WIRE STEWARD Syncope and collapse Lightheadedness 780.4 Resolved Ashley Yokum WIRE STEWARD Dizziness and giddiness Headache 784.0 Resolved Ashley Yokum WIRE STEWARD Headache Sore throat 462 Resolved Ashley Yokum WIRE STEWARD Acute pharyngitis Sinusitis - acute 461.9 Resolved Ashley Yokum APR N Acute sinusitis, unspecified Tired all the time 780.79 Resolved Ashley Yokum AP RN Other malaise and fatigue Fatigue 780.79 Inactive Ashley Yokum WIRE STEWARD Other malaise and fatigue Preoperative examination V72.84 Active Ashley Yok um WIRE STEWARD Preoperative examination, unspecified Skin lesion 709.9 Active Ashley Yokum WIRE STEWARD Unspecified disorder of skin and subcutaneous tissue ABNORMAL WEIGHT GAIN ICD-783.1 Inactive Wayne paul PA ALLERGIC RHINITIS ICD-477.9 Inactive Lois mendieta WIRE STEWARD SINUSITIS ICD-473.9 Inactive Lois Leos WIRE STEWARD 2012 WHEEZING ICD-786.07 Inactive Lois Leos WIRE STEWARD 2012 UPPER RESPIRATORY INFECTION, ACUTE ICD-465.9 I nactive Lois Leos WIRE STEWARD NEED FOR DESENSITIZATION TO ALLERGENS ICD-V07.1 8 Inactive Ashley Yang WIRE STEWARD OBESITY ICD-278.00 Inactive Wayne Harms PA CONTACT DERMATITIS DUE TO POISON ARANZA ICD-692.6 Inactive Lois Leos WIRE STEWARD NEED PROPHYLACTIC VACCINATION&INOCULATION FLU ICD-V04.81 Inactive Wayne Harms PA GERD ICD-530.81 Inactive Lois Leos WIRE STEWARD 03/22 LONG-TERM (CURRENT) USE OF OTHER MEDICATIONS ICD-V58.69 6 Inactive Wayne Harms PA NECK PAIN ICD-723.1 Inactive Wayne Harms PA 06/15 DEGENERATIVE DISC DISEASE, CERVICAL SPINE ICD-722.4 Inactive Wayne Harms PA SKIN TAG ICD-701.9 Inactive Wayne Harms PA G E R D ICD-530.81 Inactive Lois Leos WIRE STEWARD CANDIDIASIS OF SKIN AND NAILS ICD-112.3 Inacti ve Wayne Harms PA AFTERCARE FOLLOW SURGERY MUSCULOSKEL SYSTEM NEC ICD-V58.78 Inactive Wayne Harms PA PHARYNGITIS ICD-462 Inactive Wayne Harms PA 05/03 OTHER SCREENING MAMMOGRAM ICD-V76.12 Inactive Wayne Harms PA DYSPAREUNIA, MILD ICD-625.0 Inactive Wayne Harm s PA CONTACT DERMATITIS DUE TO POISON ARANZA ICD-692.6 Inactive Wayne Harms PA Sinusitis, chronic ICD-473.9 Inactive Ashley Yo yoni WIRE STEWARD Myalgia ICD-729.1 Inactive Wayne Harms PA Rheumatoid [...] PA Runny nose ICD-472.0 Inactive Ashley Yokum WIRE STEWARD Influenza like illness ICD-487.1 Inactive Wayne Moon PA Acute maxillary sinusitis ICD-461.0 Inactive Ashley Yokum WIRE STEWARD Preventive health care ICD-V70.0 Inactive Ka thi Yokum WIRE STEWARD Well women exam ICD-V72.3 Inactive Ashley Yokum WIRE STEWARD Screening mammogram ICD-V76.12 Inactive Ashley Yokum WIRE STEWARD Sinusitis, acute maxillary ICD-461.0 Inactive Ashley Yokum WIRE STEWARD Diarrhea, acute ICD-787.91 Inactive Ashley Yoku m WIRE STEWARD Vaginal candidiasis ICD-112.1 Inactive Ashley Y okum WIRE STEWARD Accidental fall ICD-E888.9 Inactive Ashley Yoku m WIRE STEWARD Contusion of left hand, initial encounter ICD-923.20 Inactive Ashley Yokum WIRE STEWARD Contusion of right upper arm, subsequent encounter ICD-V58.89 Inactive Ashley Yokum WIRE STEWARD Body Mass Index 31.0-31.9 Adult Inac tive Ashley Yokum WIRE STEWARD Bronchitis, acute ICD-466.0 Inactive Ashley Yok um WIRE STEWARD Body Mass Index 30.0-30.9 Adult Inac tive Ashley Yokum WIRE STEWARD Allergic conjunctivitis, bilateral ICD-372.14 I nactive Ashley Yokum WIRE STEWARD Skin tags; irritated/inflammed ICD-701.9 Inact rancho Ashley Yokum WIRE STEWARD Nausea and vomiting ICD-787.01 Inactive Ashley Yokum WIRE STEWARD Gastroenteritis acute ICD-558.9 Inactive Conchis hi Yokum WIRE STEWARD Joint pain ICD-719.40 Inactive Ashley Yokum APR N Preventive health care, adult ICD-V70.0 Inacti ve Ashley Yokum WIRE STEWARD Blood in urine ICD-599.70 Inactive Ashley Yokum WIRE STEWARD Other abnormal findings in urine Carbon ctive Ashley Yokum WIRE STEWARD Urinary tract infection ICD-599.0 Inactive K athi Yokum WIRE STEWARD Chafing of skin ICD-709.8 Inactive Ashley Yokum WIRE STEWARD Gynecological examination, routine ICD-V72.3 I nactive Ashley Yokum WIRE STEWARD Near syncope ICD-780.2 Inactive Ashley Yokum AP RN Lightheadedness ICD-780.4 Inactive Ashley Yokum WIRE STEWARD Headache ICD-784.0 Inactive Ashley Yokum WIRE STEWARD 2020 Sore throat ICD-462 Inactive Ashley Yang WIRE STEWARD 202 02/17/17 Sinusitis - acute ICD-461.9 Inactive Ashley peacock WIRE STEWARD Tired all the time ICD-780.79 Inactive Ashley gutierrez WIRE STEWARD Fatigue ICD-780.79 Inactive Ashley Yang WIRE STEWARD 2020 Medication List Medication Instructions Start Date Stop Date Generic Name NDC Status Provider Patient Instruction PHENTERMINE HCL 37.5 MG TABS 1 TAB IN MORING. TAKE 30 MIN BEFORE BREAKFAST OR 2 HRS AFTER BREAKFAST PHENTERMINE HCL 29537574296 Active Ashley Yang APRN Active ADK [id number] UNIT-MCG ORAL CAPSULE 1 daily 2 VITAMINS A D K 14440950338 No Longer Active Ashley Yang APRN Active EQ LORATADINE 10 MG ORAL TABLET TAKE 1 TABLET BY MOUTH ONCE DAILY NEEDED FOR ALLERGIES LORATADINE 48001184008 Active Shanelle Nicole RN Active ALPRAZOLAM 0.25 MG TABS TAKE 1 TO 2 TABLETS BY MOUTH THREE TIMES DAILY NEEDED ALPRAZOLAM 51275292054 Active Shanelle Nicole RN Active MUCINEX D 60-600 MG ORAL TABLET EXTENDED RELEASE 12 HO UR 1 po BID PRN Congestion PSEUDOEPHEDRINE-GUAIFENESIN 67104811705 Active Ashley Yang APRN Active ZYRTEC ALLERGY 10 MG ORAL CAPSULE 1qd CETIR IZINE HCL 34378071023 No Longer Active Ashley Yang APRN Active HAIR, SKIN, NAILS VITAMINS take 1 tab by mouth 2x a day HAIR, SKIN, NAILS VITAMINS Active Ashley Merazum WIRE STEWARD Active CENTRUM SILVER FOR WOMEN OVER 50 1 tab by mouth by day. CENTRUM SILVER FOR WOMEN OVER 50 Active Ashley Yang APRN Active VITAMIN D3 1000 UNIT ORAL CAPSULE 1 po qd CH OLECALCIFEROL 11115919889 Active Ashley Yang WIRE STEWARD Active PREDNISONE 20 MG ORAL TABLET Take 2 tablets by mouth d aily for 2 days then 1 tablet daily for 2 days. PREDNISONE 40041317123 No Longer Active Ashleykaleigh Yang WIRE STEWARD Active MELOXICAM 15 MG ORAL TABLET TAKE 1 TABLET BY MOUTH IN THE MORNING 2 MELOXICAM 37103686644 Active Shanelle Rivera RN Active SIMVASTATIN 40 MG ORAL TABLET TAKE 1 TABLET BY MOUTH ONCE DA JAVON AT BEDTIME SIMVASTATIN 34612471230 Active LARRY Murillo Active [id number] ORAL TABLET MULT IPLE MINERALS 78001200610 Active Lois Faith RN Active SERTRALINE HCL 100 MG ORAL TABLET Take 1 tablet by mouth once da javon SERTRALINE HCL 49458253865 Active LARRY Murillo A ctive REGLAN 10 MG ORAL TABLET 1 po qid for bowels 3 METOCLOPRAMIDE HCL 65130513574 No Longer Active Ashley Yang ELAINA A ctive B-12 2500 MCG ORAL TABLET 1 daily CYANOCOBAL HUNT 83524958473 No Longer Active Ashley Yang ELAINA Active ESTRADIOL 2 MG TABS Take 1 tablet by mouth once daily ESTRADIOL 36714822873 Active Shanelle Rivera RN Active MACROBID 100 MG ORAL CAPSULE 1 cap by mouth twice daily NITROFURANTOIN MONOHYD MACRO 01887790072 No Longer Active Ashley Yang WIRE STEWARD Active FISH OIL + D3 9972-5788 MG-UNIT ORAL CAPSULE 1 dailly 4 FISH OIL-CHOLECALCIFEROL 44871753538 Active Ashley Ktum WIRE STEWARD Acti ve PROAIR HFA 108 (90 BASE) MCG/ACT INHALATION AEROSOL SO LUTION 2 puffs four times a day as needed ALBUTEROL SULFATE 74546838205 No Long er Active Ashleykaleigh Merazum WIRE STEWARD Active ZITHROMAX Z-SANJANA 250 MG ORAL TABLET Take 2 tablets toda y and 1 each day till gone AZITHROMYCIN 47756995128 No Longer Active Ashley Yokum WIRE STEWARD Active POLYTRIM 65933-0.1 UNIT/ML-% OPHTHALMIC SOLUTION 1 gtt to affected eye q3h x 7 days POLYMYXIN B-TRIMETHOPRIM 49913552469 No Longer Active Ashley Yokum WIRE STEWARD Active IBUPROFEN 200 MG ORAL TABLET Take 3 tablets every 6hrs 201 09/17/15 IBUPROFEN 71993356642 No Longer Active Ashley Yokum WIRE STEWARD Active DIFLUCAN 150 MG ORAL TABLET Take one tablet today and repeat in 72 hours FLUCONAZOLE 33104281046 No Longer Active Derrick cardenas MD Active DIFLUCAN 150 MG ORAL TABLET 1 by mouth for yeast 03/03 FLUCONAZOLE 68061234194 No Longer Active Ashley Yokum WIRE STEWARD Active AUGMENTIN 875-125 MG ORAL TABLET Take one tablet twice a day with food AMOXICILLIN-POT CLAVULANATE 14554409906 No Longer Act rancho Ashley Yokum WIRE STEWARD Active CALCIUM 600 + D 600-200 MG-UNIT ORAL TABLET Take one daily CALCIUM CARB-CHOLECALCIFEROL 52705227038 No Longer Active Ashley Yokum WIRE STEWARD Active FLONASE 50 MCG/ACT NASAL SUSPENSION 1 spray each nostr il twice daily for allergies and runny nose FLUTICASONE PROPIONATE 53270774517 No Longer Active Ashley Yokum WIRE STEWARD Active CLARITIN-D 12 HOUR 5-120 MG ORAL TABLET EXTENDED RELEA SE 12 HOUR Take one tablet BID as needed for allergies LORATADINE-PSEUDOEP HEDRINE 23838926693 No Longer Active Beth Naff GEOCHEMICAL MANAGER Active AMOXICILLIN-POT CLAVULANATE 875-125 MG ORAL TABLET 1 pill by mouth twice daily AMOXICILLIN-POT CLAVULANATE 63723824317 No Longer Act rancho Ashley Yokum WIRE STEWARD Active AMOXICILLIN 500 MG ORAL CAPSULE Take 1 capsule by mout h three times a day X 10 days AMOXICILLIN 95882408403 No Longer Active Wayne H arms PA Active PROBIOTIC DAILY ORAL CAPSULE Take one daily PROBIO TIC PRODUCT 98638717323 Active Wayne Harms PA Active TYLENOL 325 MG ORAL TABLET Take 2 every 6hrs prn A CETAMINOPHEN 07148547529 Active Wayne Harms PA Active ACETAMINOPHEN 500 MG ORAL TABLET prn RICH TAMINOPHEN 34407076853 No Longer Active Wayne Harms PA Active CLARITIN-D 12 HOUR 5-120 MG ORAL TABLET EXTENDED RELEA SE 12 HOUR Take one tablet bid LORATADINE-PSEUDOEPHEDRINE 85248393150 No Longe r Active Wayne Harms PA Active MOBIC 15 MG ORAL TABLET 1 tablet by mouth daily in am with PPI 2 MELOXICAM 12275148973 No Longer Active Wayne Harms PA Acti ve HYDROCORTISONE 2.5 % EXTERNAL CREAM Apply three times a day to affected area HYDROCORTISONE 44577004992 No Longer Active Wayne Harms PA Active VITAMIN D3 1000 UNIT ORAL TABLET Take two daily CHOLECALCIFEROL 17763480516 No Longer Active Wayne Harms PA Active PROBIOTIC ORAL CAPSULE Take one daily PROBIOTIC PRODUCT 25467631860 No Longer Active Wayne Harms PA Active GREEN TEA SLIM ORAL TABLET Take one daily MISC NATURAL PRODUCTS 79461708785 No Longer Active Wayne Harms PA Active BENZONATATE 200 MG ORAL CAPSULE Take one capsule three times a d ay BENZONATATE 25909973554 No Longer Active Wayne Harms PA Act rancho ZITHROMAX Z-SANJANA 250 MG ORAL TABLET 2 today, then 1 daily for 4 d ays AZITHROMYCIN 09510919146 No Longer Active Wayne Harms PA Ac tive ZITHROMAX 250 MG ORAL TABLET 2 po today, then 1 po q days 2-5 20 31/03/18 AZITHROMYCIN 36737181457 No Longer Active Beth Turner GEOCHEMICAL MANAGER Active OMEPRAZOLE 20 MG ORAL CAPSULE DELAYED RELEASE 1 tablet by mo uth daily OMEPRAZOLE 80048931758 Active Supriya Huston RMA Active ZITHROMAX Z-SANJANA 250 MG ORAL TABLET 2x1day,4i8deuh 2014 AZITHROMYCIN 59228547615 No Longer Active Wayne Harms PA Active FISH OIL 1200 MG ORAL CAPSULE One daily prn OME GA-3 FATTY ACIDS 00085948502 No Longer Active Wayne Harms PA Active CEPHALEXIN 250 MG ORAL CAPSULE Take one tablet qid 201 05/25/29 CEPHALEXIN 69024775149 No Longer Active Wayne Harms PA Active VITAMIN D3 1000 UNIT ORAL TABLET 1qd CHOLEC ALCIFEROL 92434024276 No Longer Active Wayne Harms PA Active B-12 2000 MCG ORAL TABLET 1qd CYANOCOBALAMI N 63218508336 No Longer Active Wayne Harms PA Active ACIPHEX 20 MG ORAL TABLET DELAYED RELEASE 1qd 10/28 RABEPRAZOLE SODIUM 58040545682 No Longer Active Wayne Harms PA Active HYDROCORTISONE 2.5 % EXTERNAL CREAM apply 3-4 times a day to affected area HYDROCORTISONE 33402013618 No Longer Active Wayne Harms PA Active MUCINEX 600 MG ORAL TABLET EXTENDED RELEASE 12 HOUR 2qd GUAIFENESIN 48173970670 No Longer Active Wayne Harms PA Active TUSSIONEX PENNKINETIC ER 10-8 MG/5ML ORAL SUSPENSION E XTENDED RELEASE 5ml po q12hr PRN Cough HYDROCOD POLST-CHLORPHEN POLST 5 2288296033 No Longer Active Wayne Harms PA Active ZITHROMAX 250 MG ORAL TABLET 2 po today, then 1 po q days 2-5 20 26/06/21 AZITHROMYCIN 40190859586 No Longer Active Wayne Harms PA Ac tive CLARITIN 10 MG ORAL TABLET one tablet daily THEO ATADINE 00813546899 No Longer Active Wayne Harms PA Active FLAGYL 500 MG ORAL TABLET 1 tablet by mouth three times daily 20 28/05/03 METRONIDAZOLE 60458533309 No Longer Active Wayne Harms PA A ctive CHERATUSSIN AC 100-10 MG/5ML ORAL SYRUP one teaspoon qid. 9 GUAIFENESIN-CODEINE 84131520453 No Longer Active Wayne Harms PA Act rancho VITAMIN D 1000 UNIT ORAL TABLET 1qd CHOLECA LCIFEROL 24882637600 No Longer Active Wayne Harms PA Active CYMBALTA 60 MG ORAL CAPSULE DELAYED RELEASE PARTICLES 1 cap by mouth daily DULOXETINE HCL 47864166243 No Longer Active Wayne Harms PA Active AMOXICILLIN 500 MG ORAL CAPSULE 2 caps tid for 10days AMOXICILLIN 22151290926 No Longer Active Wayne Harms PA Active CALCIUM + D 600-200 MG-UNIT TABS Take one by mouth daily CALCIUM CARBONATE-VITAMIN D 41559099870 No Longer Active Wayne Harms PA Active CENTRUM SILVER ADULT 50+ ORAL TABLET 1qd 2013 MULTIPLE VITAMINS-MINERALS 99054501515 No Longer Active Wayne Harms PA Active VENLAFAXINE HCL 75 MG ORAL TABLET 1tid VE NLAFAXINE HCL 50016226585 No Longer Active Wayne Harms PA Active CLARITIN 10 MG ORAL TABLET 1 tablet by mouth daily as needed for allergies LORATADINE 22077569682 No Longer Active Wayne Harms PA Acti ve HYDROCORTISONE 2.5 % EXTERNAL CREAM Apply four times a day to af fected area HYDROCORTISONE 82387037918 No Longer Active Wayne Harms PA Active ZITHROMAX 250 MG ORAL TABLET 2 po today, then 1 po q days 2-5 20 26/02/30 AZITHROMYCIN 65201284974 No Longer Active Wayne Harms PA Ac tive ZITHROMAX 250 MG ORAL TABLET 2 po today, then 1 po q days 2-5 20 27/02/16 AZITHROMYCIN 26099291306 No Longer Active Wayne Harms PA Ac tive CYMBALTA 30 MG ORAL CAPSULE DELAYED RELEASE PARTICLES 3 caps daily DULOXETINE HCL 18232713978 No Longer Active Wayne Harms PA Active CYMBALTA 60 MG ORAL CAPSULE DELAYED RELEASE PARTICLES one tablet daily, takes 30mg. with 60mg. to make 90 mg. DULOXETINE HCL 30937370014 No Longer Active Wayne Harms PA Active CYMBALTA 30 MG ORAL CAPSULE DELAYED RELEASE PARTICLES 1 daily wi th 60mg DULOXETINE HCL 01128205900 No Longer Active Wayne Harms PA Active ZITHROMAX 250 MG ORAL TABLET 2 po today, then 1 po q days 2-5 20 26/12/21 AZITHROMYCIN 64371812257 No Longer Active Ismael YANG Active PREDNISONE 20 MG ORAL TABLET 3tab x 2days,2tab x 2days ,1tab x 2days,1/2tab x 2days PREDNISONE 83088509178 No Longer Active Wayne Vera jarvis YANG Active PREMARIN 0.625 MG ORAL TABLET Take one by mouth daily ESTROGENS CONJUGATED 90609121665 No Longer Active Wayne Harms PA Active ZITHROMAX 250 MG ORAL TABLET 2 po today, then 1 po q days 2-5 20 26/06/19 AZITHROMYCIN 98321412601 No Longer Active Nereyda Isaacs Activ e OMEGA-3 1000 MG ORAL CAPSULE 2qd OMEGA-3 FA TTY ACIDS 45891839068 No Longer Active Wayne Harms PA Active BENADRYL ITCH STOPPING 1-0.1 % EXTERNAL CREAM prn DIPHENHYDRAMINE- ZINC ACETATE 85320155122 No Longer Active Wayne Harms PA Active LOTRISONE 1-0.05 % EXTERNAL CREAM Apply bid CLOTRIMAZOLE-BETAMETHASONE 99149454891 No Longer Active Wayne Harms PA Active ZITHROMAX Z-SANJANA 250 MG ORAL TABLET take as directed 20 26/04/19 AZITHROMYCIN 66773403263 No Longer Active Wayne Harms PA Active NYSTATIN 659679 UNIT/GM EXTERNAL POWDER Apply to affected areas BID NYSTATIN 21978435197 No Longer Active Wayne Harms PA Acti ve BENADRYL 25 MG ORAL CAPSULE prn DIPHENHYDRAMINE HCL 39343513249 Active Wayne Harms PA Active LOTRISONE 1-0.05 % EXTERNAL CREAM apply twice a day 20 25/02/17 CLOTRIMAZOLE-BETAMETHASONE 98056489607 No Longer Active Wayne Harms PA Active HYDROCODONE-ACETAMINOPHEN 5-325 MG ORAL TABLET 1-2 every 4hr s prn pain HYDROCODONE-ACETAMINOPHEN 21214732765 No Longer Activ e Wayne Harms PA Active VICODIN 5-300 MG ORAL TABLET 1-2 tabs every 6hrs as needed for p ain HYDROCODONE-ACETAMINOPHEN 22656185858 No Longer Active Wayne Harms PA Active BENADRYL 25 MG ORAL CAPSULE 1prn DIPHENHYDRA MINE HCL 76129992440 No Longer Active Jillina Frazell WIRE STEWARD Active ROBITUSSIN DM 100-10 MG/5ML ORAL SYRUP 2 teaspoons four times a day DEXTROMETHORPHAN-GUAIFENESIN 11427322567 No Longer Active Jillina Frazell WIRE STEWARD Active ACIPHEX 20 MG ORAL TABLET DELAYED RELEASE Take one by mouth daily RABEPRAZOLE SODIUM 15381638336 No Longer Active Jillina Frazell WIRE STEWARD Active TUMS 500 MG ORAL TABLET CHEWABLE prn SADIQ CIUM CARBONATE ANTACID 84068502851 No Longer Active Jillina Frazell WIRE STEWARD Active PEPTO-BISMOL 524 MG/30ML ORAL SUSPENSION prn 02/26 BISMUTH SUBSALICYLATE 15617821182 No Longer Active Jillina Frazell WIRE STEWARD Active BACTRIM DS 800-160 MG ORAL TABLET 1bid SULFAMETHOXAZOLE-TRIMETHOPRIM 80266622778 No Longer Active Beth Naff GEOCHEMICAL MANAGER Active GAVISCON EXTRA RELIEF FORMULA CHEW prn A LUM HYDROXIDE-MAG CARBONATE CHEW 62953154820 Active Wayne Harms PA Active DIFLUCAN 150 MG ORAL TABLET 1stat FLUCONAZOL E 33595997286 No Longer Active Wayne Harms PA Active AUGMENTIN 875-125 MG ORAL TABLET 1 tab by mouth twice daily with food AMOXICILLIN-POT CLAVULANATE 73221113951 No Longer Act rancho Wayne Harms PA Active FLUTICASONE PROPIONATE 50 MCG/ACT NASAL SUSPENSION 1 t o 2 sprays each nostril twice a day FLUTICASONE PROPIONATE 90487917984 No Lo nger Active Wayne Harms PA Active HYDROCORTISONE 2.5 % EXTERNAL CREAM apply 2-4 times a day, a s directed, prn HYDROCORTISONE 33646845515 No Longer Active Wayne Harms PA Active ZITHROMAX Z-SANJANA 250 MG ORAL TABLET A ZITHROMYCIN 72026858939 No Longer Active Wayne Harms PA Active SIMVASTATIN 40 MG ORAL TABLET one tablet daily SIMVASTATIN 19449747956 No Longer Active Misty Yoo GEOCHEMICAL MANAGER Active LOVASTATIN 40 MG ORAL TABLET Take one by mouth daily 12/11 LOVASTATIN 50211942586 No Longer Active Misty Yoo GEOCHEMICAL MANAGER Active PREDNISONE 20 MG ORAL TABLET 2 PO qd x 2d, 1 PO qd x 2d, 1/2 PO qd x 2d PREDNISONE 71823602618 No Longer Active Ismael silva PA Active ZITHROMAX 250 MG ORAL TABLET two tablets now and one daily x 4 d ays AZITHROMYCIN 67952650297 No Longer Active Misty Yoo LPN Active ZOLPIDEM TARTRATE 10MG TABS (ZOLPIDEM TARTRATE) 1 at bedtime as needed Active Supriya Huston RMA Active CLOBETASOL PROPIONATE 0.05 % EXTERNAL CREAM apply as directed CLOBETASOL PROPIONATE 48153089045 No Longer Active Wayne Harms PA A ctive CYMBALTA 30 MG ORAL CAPSULE DELAYED RELEASE PARTICLES takes 90mg qod alt with 60mg DULOXETINE HCL 48844511951 No Longer Active Wayne Harm s PA Active ZITHROMAX 250 MG ORAL TABLET 2 po today, then 1 po q days 2-5 20 12/24/14 AZITHROMYCIN 35899789408 No Longer Active Wayne Harms PA Ac tive TRIAMCINOLONE ACETONIDE 0.1 % EXTERNAL CREAM apply qid TRIAMCINOLONE ACETONIDE 04362525073 No Longer Active Wayne Harms PA Active ALPRAZOLAM 0.25 MG ORAL TABLET 1 tab three times a day 201 02/23/14 ALPRAZOLAM 68849595158 No Longer Active Wayne Harms PA Active ZOLPIDEM TARTRATE 5 MG ORAL TABLET 1 at bedtime as needed ZOLPIDEM TARTRATE 02747067550 No Longer Active Beth Turner GEOCHEMICAL MANAGER Active ACETAMINOPHEN 500 MG ORAL TABLET prn ACETAMINOPHEN 500 MG ORAL TABLET 151555 ACETAMINOPHEN Inactive ALPRAZOLAM 0.25 MG ORAL TABLET 1 tab three times a day ALPRAZOLAM 0.25 MG ORAL TABLET 582063 ALPRAZOLAM Inactive AMOXICILLIN 500 MG ORAL CAPSULE Take 1 capsule by mout h three times a day X 10 days AMOXICILLIN 500 MG ORAL CAPSULE 017406 AMOX ICILLIN Inactive AMOXICILLIN 500 MG ORAL CAPSULE 2 caps tid for 10days AMOXICILLIN 500 MG ORAL CAPSULE 918731 AMOXICILLIN Inactive BACTRIM DS 800-160 MG ORAL TABLET 1bid BACTRIM DS 800-160 MG ORAL TABLET 458319 SULFAMETHOXAZOLE-TRIMETHOPRIM Inactive BENADRYL 25 MG ORAL CAPSULE 1prn BENADRYL 25 MG ORAL CAPSULE DIPHENHYDRAMINE HCL Inactive CHERATUSSIN AC 100-10 MG/5ML ORAL SYRUP one teaspoon qid. 9 CHERATUSSIN AC 100-10 MG/5ML ORAL SYRUP GUAIFENESIN-CODEINE Inactive CLARITIN 10 MG ORAL TABLET one tablet daily CLARITIN 10 MG ORAL TABLET 029813 LORATADINE Inactive CLARITIN 10 MG ORAL TABLET 1 tablet by mouth daily as needed for allergies CLARITIN 10 MG ORAL TABLET 854277 LORATADINE Inact rancho FLAGYL 500 MG ORAL TABLET 1 tablet by mouth three times daily 20 28/05/03 FLAGYL 500 MG ORAL TABLET 822779 METRONIDAZOLE Inacti ve HYDROCORTISONE 2.5 % EXTERNAL CREAM apply 3-4 times a day to affected area HYDROCORTISONE 2.5 % EXTERNAL CREAM 414229 HYDRO CORTISONE Inactive HYDROCORTISONE 2.5 % EXTERNAL CREAM Apply three times a day to affected area HYDROCORTISONE 2.5 % EXTERNAL CREAM 255767 HYDRO CORTISONE Inactive HYDROCORTISONE 2.5 % EXTERNAL CREAM Apply four times a day to af fected area HYDROCORTISONE 2.5 % EXTERNAL CREAM 461539 HYDROCORTISO NE Inactive HYDROCORTISONE 2.5 % EXTERNAL CREAM apply 2-4 times a day, a s directed, prn HYDROCORTISONE 2.5 % EXTERNAL CREAM 164393 HYDRO CORTISONE Inactive IBUPROFEN 200 MG ORAL TABLET Take 3 tablets every 6hrs IBUPROFEN 200 MG ORAL TABLET 378098 IBUPROFEN Inactive LOTRISONE 1-0.05 % EXTERNAL CREAM apply twice a day 25/02/17 LOTRISONE 1- 0.05 % EXTERNAL CREAM CLOTRIMAZOLE-BETAMETHASONE Inactive LOTRISONE 1-0.05 % EXTERNAL CREAM Apply bid LOTRISONE 1- 0.05 % EXTERNAL CREAM CLOTRIMAZOLE-BETAMETHASONE Inactive MACROBID 100 MG ORAL CAPSULE 1 cap by mouth twice daily MACROBID 100 MG ORAL CAPSULE 5506070 NITROFURANTOIN MONOHYD MACRO In active POLYTRIM 92150-7.1 UNIT/ML-% OPHTHALMIC SOLUTION 1 gtt to affected eye q3h x 7 days POLYTRIM 77199-0.1 UNIT/ML-% OPH THALMIC SOLUTION 600685 POLYMYXIN B-TRIMETHOPRIM Inactive PREDNISONE 20 MG ORAL TABLET 2 PO qd x 2d, 1 PO qd x 2d, 1/2 PO qd x 2d PREDNISONE 20 MG ORAL TABLET 091803 PREDNISONE Inactive PREDNISONE 20 MG ORAL TABLET Take 2 tablets by mouth d aily for 2 days then 1 tablet daily for 2 days. PREDNISONE 20 MG ORAL T ABLET 865281 PREDNISONE Inactive PREDNISONE 20 MG ORAL TABLET 3tab x 2days,2tab x 2days ,1tab x 2days,1/2tab x 2days PREDNISONE 20 MG ORAL TABLET 079543 PREDNIS ONE Inactive PREMARIN 0.625 MG ORAL TABLET Take one by mouth daily PREMARIN 0.625 MG ORAL TABLET ESTROGENS CONJUGATED Inactive REGLAN 10 MG ORAL TABLET 1 po qid for bowels 3 REGLAN 10 MG ORAL TABLET 104012 METOCLOPRAMIDE HCL Inactive ROBITUSSIN DM 100-10 MG/5ML ORAL SYRUP 2 teaspoons four times a day ROBITUSSIN DM 100-10 MG/5ML ORAL SYRUP DEXTROMET HORPHAN-GUAIFENESIN Inactive TRIAMCINOLONE ACETONIDE 0.1 % EXTERNAL CREAM apply qid TRIAMCINOLONE ACETONIDE 0.1 % EXTERNAL CREAM 7569187 TRIAMCINOLONE A CETONIDE Inactive TUMS 500 MG ORAL TABLET CHEWABLE prn TUMS 500 MG ORAL TABLET CHEWABLE 030291 CALCIUM CARBONATE ANTACID Inactive CEPHALEXIN 250 MG ORAL CAPSULE Take one tablet qid 201 05/25/29 CEPHALEXIN 250 MG ORAL CAPSULE 543227 CEPHALEXIN Inactive CLOBETASOL PROPIONATE 0.05 % EXTERNAL CREAM apply as directed CLOBETASOL PROPIONATE 0.05 % EXTERNAL CREAM 396032 CLOBETASOL PROPI KELVIN Inactive LOVASTATIN 40 MG ORAL TABLET Take one by mouth daily 2 LOVASTATIN 40 MG ORAL TABLET 045447 LOVASTATIN Inactive SIMVASTATIN 40 MG ORAL TABLET one tablet daily SIMVASTATIN 40 MG ORAL TABLET 090830 SIMVASTATIN Inactive VENLAFAXINE HCL 75 MG ORAL TABLET 1tid VENLAFAXINE HCL 75 MG ORAL TABLET 753348 VENLAFAXINE HCL Inactive PEPTO-BISMOL 524 MG/30ML ORAL SUSPENSION prn PEPTO-BISMOL 524 MG/30ML ORAL SUSPENSION BISMUTH SUBSALICYLATE Inactive DIFLUCAN 150 MG ORAL TABLET 1stat DIFLUCAN 150 MG ORAL TABLET 125760 FLUCONAZOLE Inactive DIFLUCAN 150 MG ORAL TABLET 1 by mouth for yeast 03/03 DIFLUCAN 150 MG ORAL TABLET 545270 FLUCONAZOLE Inactive DIFLUCAN 150 MG ORAL TABLET Take one tablet today and repeat in 72 hours DIFLUCAN 150 MG ORAL TABLET 504439 FLUCONAZOLE Inactive VITAMIN D 1000 UNIT ORAL [...] 20 12/24/14 ZITHROMAX 250 MG ORAL TABLET 818858 AZITHROMYCIN Carbon ctive ZITHROMAX 250 MG ORAL TABLET two tablets now and one daily x 4 d ays ZITHROMAX 250 MG ORAL TABLET 504021 AZITHROMYCIN Carbon ctive ZITHROMAX 250 MG ORAL TABLET 2 po today, then 1 po q days 2-5 20 26/12/21 ZITHROMAX 250 MG ORAL TABLET 362567 AZITHROMYCIN Carbon ctive ZITHROMAX 250 MG ORAL TABLET 2 po today, then 1 po q days 2-5 20 27/02/16 ZITHROMAX 250 MG ORAL TABLET 480599 AZITHROMYCIN Carbon ctive ZITHROMAX 250 MG ORAL TABLET 2 po today, then 1 po q days 2-5 20 26/02/30 ZITHROMAX 250 MG ORAL TABLET 667319 AZITHROMYCIN Mara ctive ZITHROMAX 250 MG ORAL TABLET 2 po today, then 1 po q days 2-5 20 26/06/21 ZITHROMAX 250 MG ORAL TABLET 035909 AZITHROMYCIN Mara ctive ZITHROMAX 250 MG ORAL TABLET 2 po today, then 1 po q days 2-5 20 31/03/18 ZITHROMAX 250 MG ORAL TABLET 403293 AZITHROMYCIN Mara ctive ZITHROMAX 250 MG ORAL TABLET 2 po today, then 1 po q days 2-5 20 26/06/19 ZITHROMAX 250 MG ORAL TABLET 705823 AZITHROMYCIN Carbon ctive ACIPHEX 20 MG ORAL TABLET DELAYED RELEASE Take one by mouth daily ACIPHEX 20 MG ORAL TABLET DELAYED RELEASE 748302 RABEPRAZOLE SODIUM Inactive ACIPHEX 20 MG ORAL TABLET DELAYED RELEASE 1qd ACIPHEX 20 MG ORAL TABLET DELAYED RELEASE 600109 RABEPRAZOLE SODIUM Inactive BENZONATATE 200 MG ORAL CAPSULE Take one capsule three times a d ay BENZONATATE 200 MG ORAL CAPSULE 496974 BENZONATATE Inactive BENADRYL ITCH STOPPING 1-0.1 % EXTERNAL CREAM prn BENADRYL ITCH STOPPING 1-0.1 % EXTERNAL CREAM DIPHENHYDRAMINE-ZINC ACETATE Inactive CALCIUM + D 600-200 MG-UNIT TABS Take one by mouth daily CALCIUM + D 600-200 MG-UNIT TABS CALCIUM CARBONATE-VITAMIN D Inactive MOBIC 15 MG ORAL TABLET 1 tablet by mouth daily in am with PPI 2 MOBIC 15 MG ORAL TABLET 856435 MELOXICAM Inactive ZITHROMAX Z-SANJANA 250 MG ORAL TABLET Take 2 tablets toda y and 1 each day till gone ZITHROMAX Z-SANJANA 250 MG ORAL TABLET 661291 A ZITHROMYCIN Inactive ZITHROMAX Z-SANJANA 250 MG ORAL TABLET 2x1day,0c0gtib 2014 ZITHROMAX Z-SANJANA 250 MG ORAL TABLET 068097 AZITHROMYCIN Inact rancho ZITHROMAX Z-SANJANA 250 MG ORAL TABLET take as directed 26/04/19 ZITHROMAX Z-SANJANA 250 MG ORAL TABLET 416644 AZITHROMYCIN Inact rancho ZITHROMAX Z-SANJANA 250 MG ORAL TABLET 03/03 ZITHROMAX Z-SANJANA 250 MG ORAL TABLET 485666 AZITHROMYCIN Inactive ZITHROMAX Z-SANJANA 250 MG ORAL TABLET 2 today, then 1 daily for 4 d ays ZITHROMAX Z-SANJANA 250 MG ORAL TABLET 999486 AZITHROMYCIN Inactive FLONASE 50 MCG/ACT NASAL SUSPENSION 1 spray each nostr il twice daily for allergies and runny nose FLONASE 50 MCG/ ACT NASAL SUSPENSION FLUTICASONE PROPIONATE Inactive OMEGA-3 1000 MG ORAL CAPSULE 2qd OMEGA-3 1000 MG ORAL CAPSULE 284511 OMEGA-3 FATTY ACIDS Inactive AMOXICILLIN-POT CLAVULANATE 875-125 MG ORAL TABLET 1 pill by mouth twice daily AMOXICILLIN-POT CLAVULANATE 875-125 MG ORAL TABL ET 010606 AMOXICILLIN-POT CLAVULANATE Inactive HYDROCODONE-ACETAMINOPHEN 5-325 MG ORAL TABLET 1-2 every 4hr s prn pain HYDROCODONE-ACETAMINOPHEN 5-325 MG ORAL TABLET 8 69207 HYDROCODONE-ACETAMINOPHEN Inactive MUCINEX 600 MG ORAL TABLET EXTENDED RELEASE 12 HOUR 2qd MUCINEX 600 MG ORAL TABLET EXTENDED RELEASE 12 HOUR GUAIFENESIN Inactive NYSTATIN 033864 UNIT/GM EXTERNAL POWDER Apply to affected areas BID NYSTATIN 565514 UNIT/GM EXTERNAL POWDER 412497 NYSTATIN Inactive CYMBALTA 60 MG ORAL CAPSULE DELAYED RELEASE PARTICLES one tablet daily, takes 30mg. with 60mg. to make 90 mg. CYMBALTA 60 MG ORAL CAPSULE DELAYED RELEASE PARTICLES 928541 DULOXETINE HCL Inacti ve CYMBALTA 60 MG ORAL CAPSULE DELAYED RELEASE PARTICLES 1 cap by mouth daily CYMBALTA 60 MG ORAL CAPSULE DELAYED RELE ASE PARTICLES 939021 DULOXETINE HCL Inactive CYMBALTA 30 MG ORAL CAPSULE DELAYED RELEASE PARTICLES takes 90mg qod alt with 60mg CYMBALTA 30 MG ORAL CAPSULE DELAYED RELEA SE PARTICLES 847300 DULOXETINE HCL Inactive CYMBALTA 30 MG ORAL CAPSULE DELAYED RELEASE PARTICLES 3 caps daily CYMBALTA 30 MG ORAL CAPSULE DELAYED RELEASE PARTICLES 695577 DULOXE ROSANNE HCL Inactive CYMBALTA 30 MG ORAL CAPSULE DELAYED RELEASE PARTICLES 1 daily wi th 60mg CYMBALTA 30 MG ORAL CAPSULE DELAYED RELEASE PARTICLES 330273 DULOXETINE HCL Inactive FLUTICASONE PROPIONATE 50 MCG/ACT NASAL SUSPENSION 1 t o 2 sprays each nostril twice a day FLUTICASONE PROPIONA TE 50 MCG/ACT NASAL SUSPENSION 7807026 FLUTICASONE PROPIONATE Inactive VITAMIN D3 1000 UNIT [...] CAPSULE Take one daily PROBIOTIC ORAL CAPSULE 5198150 PROBIOTIC PRODUCT Inactive ZYRTEC ALLERGY 10 MG [...] RELEASE HYDROCOD POLST-CHLORPHEN POLST I nactive ADK [id number] UNIT-MCG ORAL CAPSULE 1 daily 2 ADK [id number] UNIT-MCG ORAL CAPSULE VITAMINS A D K [...] Fluarix, Agriflu(>= 18 yo)) Fluzone (>=3 yrs.) [[id number]] Seasonal influenza vaccine, injectable, containing preservative, for > 3 years old (Afluria, FluLaval, Fluzone, Fluvirin, Fluarix, Agriflu(>= 18 yo)) Fluzone (>3 yrs.) [[id number]] Seasonal influenza vaccine, injectable, containing preservative, for > 3 years old (Afluria, FluLaval, Fluzone, Fluvirin, Fluarix, Agriflu(>= 18 yo)) Fluarix (>3 yrs.) [[id number]] Diagnostic Results Date Name Value Unit Range Description Lab Report: CBC, Comp. Metabolic Panel, Lipid Panel, Magnesium - Chemistry sodium, serum 138 mmol/L [phone]/09/02 carbon dioxide, venous blood 28.0 mmol/L 21.0-32 [...] 0.20 mg/dL 0.00-1.00 cholesterol, serum 228 mg/dL [phone]/09/02 triglyceride, serum, fasting 236 mg/dL 30-200 HDL [...] 0.36-3.74 Encounters Code Encounter Date Provider Facility CPT-87718 72602: Ofc Vst-Est Level IV-Moderate MDM or 30-39 minutes 17:48:09 CDT Ashley Yang [facility] [place] CPT-20860 [id number] Vst-Est Level III 17:07:11 CDT Jenny Yang [facility] [place] CPT-59431 [id number] Vst-Est Level III 17:51:44 [employer]IA REFRIGERATION WORKER [place] [facility] [place] CPT-36779 Level 3 Est. Patient 11:09:39 CDT Viviana Rubio [facility] [place] CPT-49958 [id number] Vst-Est Level IV 09:14:31 CDT Conchis Yang [facility] [place] CPT-59520 [id number] Vst-Est Level III 22:05:50 CDT Jenny Yang [facility] [place] CPT-13760 Level 3 Est. Patient 15:00:02 [employer]IA REFRIGERATION WORKER Will Avi jarquin [facility] CPT-69242 Level 2 Est. Patient 13:46:20 CDT Ashley Meraz [facility] [place] CPT-65036 Level 2 Est. Patient 13:45:36 CDT Ashley Meraz [facility] [place] CPT-97022 Level 3 Est. Patient 15:52:07 CDT Ashley Meraz [facility] [place] CPT-80804 Level 3 Est. Patient 08:20:37 CDT Ashley Meraz [facility] [place] CPT-22149 Level 3 Est. Patient 15:06:41 CDT Derrick donaldson MD [facility] CPT-64257 Level 3 Est. Patient 11:13:21 [employer] RE[employer]IGERATION WORKER Derrick donaldson MD [facility] CPT-83869 Level 3 Est. Patient 12:54:25 [employer] RE[employer]IGERATION WORKER Ashley Meraz [facility] [place] CPT-24429 Level 3 Est. Patient 23:34:49 [employer] RE[employer]IGERATION WORKER Ashley Meraz [facility] [place] CPT-40421 Level 3 Est. Patient 16:37:09 [employer] REFRIGERATION WORKER Ashley Meraz [facility] [place] CPT-50311 Level 3 Est. Patient 11:59:30 [employer] RE[employer]IGERATION WORKER Ashley Meraz [facility] [place] CPT-97519 Level 4 Est. Patient 07:40:13 CDT Wayne delatorre [facility] [place] CPT-62426 Level 4 Est. Patient 08:06:18 CDT [facility] CPT-59181 Level 3 Est. Patient 11:14:45 CDT Wayne delatorre PA [facility] CPT-26065 Level 3 Est. Patient 10:14:55 CDT Wayne delatorre [facility] [place] CPT-53432 Level 4 Est. Patient 15:23:47 CDT Wayne delatorre [facility] CPT-67533 Level 3 Est. Patient 07:50:51 [employer]IA REFRIGERATION WORKER Wayne [facility]atorre [facility] CPT-66876 Level 3 Est. Patient 14:47:52 CDT Wayne delatorre [facility] CPT-65927 Level 3 Est. Patient 11:28:46 CDT Wayne delatorre [facility] CPT-34736 Level 4 Est. Patient 14:48:43 CDT [facility] CPT-41883 Level 3 Est. Patient 14:10:18 [employer]IA REFRIGERATION WORKER Wayne delatorre [facility] CPT-17272 Level 3 Est. Patient 16:44:33 [employer]IA REFRIGERATION WORKER [facility] CPT-68461 Level 4 Est. Patient 08:22:34 [employer]IA REFRIGERATION WORKER Wayne delatorre [facility] CPT-27111 Level 4 Est. Patient 07:10:30 CDT Wayne [facility]atorre [facility] CPT-94320 Level 3 Est. Patient 14:50:20 [employer]IA REFRIGERATION WORKER Wayne delatorre [facility] CPT-21046 Level 3 Est. Patient 09:46:08 [employer]IA REFRIGERATION WORKER Zuleika cha APRN [facility] [place] [facility] CPT-74539 Level 4 Est. Patient 07:56:24 [employer]IA REFRIGERATION WORKER Wayne delatorre [facility] [place] [facility] CPT-88850 Level 3 Est. Patient 12:13:53 CDT Ismael Denton [facility] [place] [facility] CPT-77526 Level 4 Est. Patient 12:28:51 [employer] REFRIGERATION WORKER Wayne delatorre [facility] [place] [facility] CPT-29774 Level 3 Est. Patient 15:23:42 [employer]IA REFRIGERATION WORKER Wayne delatorre [facility] [place] [facility] CPT-07106 Level 3 Est. Patient 06:34:33 [employer] REFRIGERATION WORKER Wayne delatorre [facility] [place] [facility] Procedures Code Procedure Name Date Entry Date Standard Desc ription CPT-26664 Allergy Admin 2 16:06:08 CDT CPT-21112 Allergy Admin 2 16:51:42 CDT CPT-80378 Allergy Admin 2 16:26:50 CDT CPT-96815 Allergy Admin 2 17:02:53 CDT CPT-22233 Allergy Admin 2 16:32:35 CDT CPT-89720 Allergy Admin 2 16:26:27 CDT CPT-J3420 Vitamin B12 1000mcg (Cyanocobalamin) 16:32:13 CDT CPT-51198 Abx/Therapy Injection 16:32:13 CDT CPT-97402 Allergy Admin 2 16:32:12 CDT CPT-42058 Allergy Admin 2 16:05:03 CDT CPT-51477 Allergy Admin 2 16:35:15 CDT CPT-02907 Allergy Admin 2 16:20:41 CDT CPT-26974 Allergy Admin 2 11:25:21 CDT CPT-44677 Allergy Admin 2 15:46:12 CDT CPT-[id number] (4274F) Influenza immunization administe red or previously received 17:51:44 [employer]IA REFRIGERATION WORKER CPT-54933 Spec Collection and Handling Fee 10:45:[address] CPT-[id number] (4274F) Influenza immunization administe red or previously received 10:20:17 CDT CPT-33323 Prv Med Est Pt 40-64yrs 16:26:57 CDT CPT-30024 Venipuncture Draw Fee 11:08:31 CDT CPT-94974 Magnesium - LAB USE ONLY 11:08:31 CDT 10/15 CPT-32465 TSH - LAB USE ONLY 11:08:31 CDT CPT-95500 Lipid - LAB USE ONLY 11:08:30 CDT 2 CPT-93424 CMP - LAB USE ONLY 11:08:30 CDT CPT-99263 CBC - LAB USE ONLY 11:08:30 CDT CPT-04203 Spec Collection and Handling Fee 16:14:51 C DT CPT-98024 UA w micro - LAB USE ONLY 16:14:51 CDT 2018 CPT-22113 Prv Med Est Pt 40-64yrs 08:34:49 CDT 10/01 CPT-85790 Sed Rate - LAB USE ONLY 10:50:49 CDT 10/02 CPT-28990 TSH - LAB USE ONLY 10:50:49 CDT CPT-71662 Lipid - LAB USE ONLY 10:50:49 CDT 0 CPT-35381 Magnesium - LAB USE ONLY 10:50:49 CDT 10/02 CPT-08546 CMP - LAB USE ONLY 10:50:49 CDT CPT-31627 CBC - LAB USE ONLY 10:50:49 CDT CPT-93944 Venipuncture Draw Fee 10:50:49 CDT CPT-62908 IV Hydration < or = 1 hr 22:05:50 CDT 04/16 CPT-J7030 Normal Saline 1000 mL 22:05:50 CDT CPT-37925 Abx/Therapy Injection 16:31:51 [employer] RE[employer]IGERATION WORKER CPT-J2950 Phenergan 25 mg 16:31:51 [employer] REFRIGERATION WORKER CPT-89743 Abx/Therapy Injection 16:39:40 CDT CPT-75585 First Vx - Ix admin via ID I M or jet injects without counseling by physician 16:39:39 CDT CPT-01520 Prv Med Est Pt 40-64yrs 16:33:10 CDT 11/10 CPT-JTINJ Asp/Joint Injection 16:13:36 CDT CPT-24326 Allergy Admin 2 16:54:52 CDT CPT-63866 Allergy Admin 2 16:46:15 CDT CPT-22019 Allergy Admin 2 11:29:09 CDT CPT-63761 Allergy Admin 2 17:05:15 CDT CPT-81719 Allergy Admin 2 12:31:51 CDT CPT-63485 Allergy Admin 2 15:40:56 CDT CPT-46873 CBC - LAB USE ONLY 09:49:24 CDT CPT-14662 CMP - LAB USE ONLY 09:49:24 CDT CPT-82996 Lipid - LAB USE ONLY 09:49:24 CDT 8 CPT-70751 Venipuncture Draw Fee 09:49:24 CDT CPT-15018 Allergy Admin 2 10:46:11 CDT CPT-JTINJ Asp/Joint Injection 09:52:58 CDT CPT-10836 Skin tag rem 1-15 13:46:20 CDT CPT-97245 Knee, right, 3V - XRAY USE ONLY 13:07:09 CD T CPT-51939 Allergy Admin 2 11:56:38 CDT CPT-39496 Allergy Admin 2 12:00:55 CDT CPT-82950 Allergy Admin 2 16:42:13 CDT CPT-27627 Allergy Admin 2 16:27:55 CDT CPT-02828 Allergy Admin 2 13:24:26 CDT CPT-91772 Allergy Admin 2 17:17:57 [employer] REFRIGERATION WORKER CPT-41337 Allergy Admin 2 16:23:22 [employer]MONIA REFRIGERATION WORKER CPT-34118 Allergy Admin 2 16:26:55 [employer]IA REFRIGERATION WORKER CPT-83784 Allergy Admin 2 16:32:33 [employer]IA REFRIGERATION WORKER CPT-73511 Allergy Admin 2 17:43:40 [employer]IA REFRIGERATION WORKER CPT-69018 Allergy Admin 2 16:26:07 [employer]IA REFRIGERATION WORKER CPT-11831 Allergy Admin 2 12:31:50 [employer]IA REFRIGERATION WORKER CPT-89322 Allergy Admin 2 16:40:38 [employer]IA REFRIGERATION WORKER CPT-76479 Allergy Admin 2 17:07:36 CDT CPT-G0008 Administration of Influenza Virus Vaccine 17:01:01 CDT CPT-64208 First Vx - Ix admin via ID I M or jet injects without counseling by physician 17:01:01 CDT CPT-51668 Allergy Admin 2 12:06:54 CDT CPT-51785 Allergy Admin 2 17:04:46 CDT CPT-76897 Allergy Admin 2 16:34:48 CDT CPT-01263 Allergy Admin 2 17:04:51 CDT CPT-22286 Allergy Admin 2 16:25:14 CDT CPT-71503 Allergy Admin 2 10:52:02 CDT CPT-89396 Allergy Admin 2 11:45:31 CDT CPT-87446 Allergy Admin 2 12:02:20 CDT CPT-72735 Allergy Admin 2 15:47:29 CDT CPT-75086 Allergy Admin 2 13:25:44 CDT CPT-61861 Allergy Admin 2 10:51:13 CDT CPT-25449 CBC - LAB USE ONLY 10:44:39 CDT CPT-78750 CMP - LAB USE ONLY 10:44:39 CDT CPT-07402 Lipid - LAB USE ONLY 10:44:39 CDT 9 CPT-53303 Venipuncture Draw Fee 10:44:38 CDT CPT-64499 Allergy Admin 2 12:25:22 CDT CPT-14738 Allergy Admin 2 12:41:34 CDT CPT-30059 Allergy Admin 2 15:29:46 CDT CPT-47137 Allergy Admin 2 14:46:53 CDT CPT-27226 Allergy Admin 2 14:16:16 CDT CPT-31615 Allergy Admin 2 16:55:26 CDT CPT-11467 Allergy Admin 2 10:12:02 CDT CPT-40315 Allergy Admin 2 14:53:56 CDT CPT-97825 Allergy Admin 2 17:01:54 CDT CPT-74783 Allergy Admin 2 09:36:02 CDT CPT-26651 Allergy Admin 2 16:53:26 AMMONIA REFRIGERATION WORKER CPT-81641 Allergy Admin 2 16:59:41 [facility] CPT-75758 Allergy Admin 2 16:36:44 [facility] CPT-30448 Allergy Admin 2 16:17:16 [facility] CPT-56224 Allergy Admin 2 17:08:10 [facility] CPT-78236 Allergy Admin 2 12:16:08 [employer]IA REFRIGERATION WORKER CPT-88881 Allergy Admin 2 16:47:30 [employer]IA REFRIGERATION WORKER CPT-96171 Allergy Admin 2 16:59:44 [employer]IA REFRIGERATION WORKER CPT-89188 Allergy Admin 2 12:48:53 [employer]IA REFRIGERATION WORKER CPT-03560 Allergy Admin 2 10:19:48 [employer]IA REFRIGERATION WORKER CPT-13614 Allergy Admin 2 12:40:17 [employer] REFRIGERATION WORKER CPT-32656 Abx/Therapy Injection 17:21:59 [employer]IA REFRIGERATION WORKER CPT-97554 First Vx - Ix admin via ID I M or jet injects without counseling by physician 17:21:57 [employer] REFRIGERATION WORKER CPT-45367 Allergy Admin 2 17:20:12 [employer]IA REFRIGERATION WORKER CPT-00626 Allergy Admin 2 11:12:50 [employer]IA REFRIGERATION WORKER CPT-76128 Allergy Admin 2 17:02:39 CDT CPT-09113 BMP - LAB USE ONLY 10:33:02 CDT CPT-05562 CBC - LAB USE ONLY 10:33:02 CDT CPT-27053 Venipuncture Draw Fee 10:33:02 CDT CPT-94230 Abx/Therapy Injection 12:29:08 CDT CPT-27344 Allergy Admin 2 10:39:48 CDT CPT-50434 Allergy Admin 2 10:55:47 CDT CPT-PV Prev. Care Visit 10:10:00 CDT CPT-38986 Allergy Admin 2 11:31:20 CDT CPT-66998 Allergy Admin 2 16:53:45 CDT CPT-57685 Allergy Admin 2 16:36:42 CDT CPT-56356 Allergy Admin 2 16:30:19 CDT CPT-20747 Allergy Admin 2 15:39:35 CDT CPT-41565 Allergy Admin 2 17:51:32 CDT CPT-87379 Allergy Admin 2 11:50:50 CDT CPT-PV Prev. Care Visit 14:09:05 CDT CPT-56372 Allergy Admin 2 13:37:39 CDT CPT-64458 Abx/Therapy Injection 12:17:43 CDT CPT-39344 Venipuncture Draw Fee 10:39:55 CDT CPT-99387 Allergy Admin 2 12:04:53 CDT CPT-49604 Allergy Admin 2 10:04:39 CDT CPT-65324 Allergy Admin 2 12:15:35 CDT CPT-92153 Allergy Admin 2 17:04:36 CDT CPT-30299 Allergy Admin 2 16:25:49 CDT CPT-84228 Allergy Admin 2 17:30:06 CDT CPT-25225 Allergy Admin 2 10:11:48 CDT CPT-68512 Allergy Admin 2 17:06:13 CDT CPT-90304 Abx/Therapy Injection 12:23:07 CDT CPT-J0702 Celestone 12 mg (Betamethasone) 12:23:07 CD T CPT-92720 Venipuncture Draw Fee 10:26:42 CDT CPT-17437 Allergy Admin 2 12:10:01 CDT CPT-95502 Allergy Admin 2 15:13:57 [employer] REFRIGERATION WORKER CPT-95734 Allergy Admin 2 16:55:22 [employer]IA REFRIGERATION WORKER CPT-90648 Allergy Admin 2 10:13:46 [employer]IA REFRIGERATION WORKER CPT-87915 Venipuncture Draw Fee 10:06:08 [employer]IA REFRIGERATION WORKER CPT-92925 Allergy Admin 2 16:15:41 [employer]IA REFRIGERATION WORKER CPT-55210 Allergy Admin 2 16:40:21 [employer]MONIA REFRIGERATION WORKER CPT-65156 Allergy Admin 2 16:31:48 [employer]IA REFRIGERATION WORKER CPT-39888 Allergy Admin 2 16:38:26 [employer]IA REFRIGERATION WORKER CPT-88711 Allergy Admin 2 16:40:08 [employer]IA REFRIGERATION WORKER CPT-18129 Allergy Admin 2 08:34:27 [employer]IA REFRIGERATION WORKER CPT-30918 Allergy Admin 2 14:27:45 [employer]IA REFRIGERATION WORKER CPT-18772 Destruction bgn lsn up to 14 09:41:27 AMMONIA REFRIGERATION WORKER 2 CPT-43472 Allergy Admin 2 17:45:17 [employer]MONIA REFRIGERATION WORKER CPT-62679 Allergy Admin 2 14:59:03 AMMONIA REFRIGERATION WORKER CPT-57090 Allergy Admin 2 12:49:42 CDT CPT-50170 Administration single or combination vac cine inc oral 15:01:57 CDT CPT-89130 Fluzone Quadrivalent Intramuscular Suspe nsion 0.5 ML 15:01:57 CDT CPT-30227 Allergy Admin 2 15:07:08 CDT CPT-87379 Allergy Admin 2 15:39:01 CDT CPT-47421 Allergy Admin 2 17:40:11 CDT CPT-49096 Allergy Admin 2 16:07:08 CDT CPT-43037 Allergy Admin 2 16:08:07 CDT CPT-23944 Venipuncture Draw Fee 09:34:29 CDT CPT-06715 Allergy Admin 2 16:27:43 CDT CPT-47425 Allergy Admin 2 15:53:10 CDT CPT-36101 Allergy Admin 2 15:42:29 CDT CPT-75291 Allergy Admin 2 11:26:14 CDT CPT-83762 Allergy Admin 2 10:36:24 CDT CPT-83088 Allergy Admin 2 16:53:37 CDT CPT-16380 Allergy Admin 2 11:21:44 CDT CPT-68343 Allergy Admin 2 10:50:40 CDT CPT-94351 Allergy Admin 2 11:19:11 CDT CPT-71512 Venipuncture Draw Fee 11:12:25 CDT CPT-46549 Allergy Admin 2 11:14:51 CDT CPT-06231 Allergy Admin 2 16:53:11 CDT CPT-09732 Allergy Admin 2 11:45:56 CDT CPT-93632 Allergy Admin 2 12:51:39 CDT CPT-23992 Allergy Admin 2 12:08:56 CDT CPT-44901 Allergy Admin 2 15:29:45 CDT CPT-81965 Allergy Admin 2 16:34:01 CDT CPT-81580 Allergy Admin 2 16:36:46 CDT CPT-41664 Allergy Admin 2 15:19:16 CDT CPT-97582 Allergy Admin 2 16:13:25 CDT CPT-11425 Allergy Admin 2 17:06:17 CDT CPT-30243 Allergy Admin 2 10:42:10 [employer]IA REFRIGERATION WORKER CPT-99610 Allergy Admin 2 17:33:16 [employer]MONIA REFRIGERATION WORKER CPT-89884 Allergy Admin 2 10:53:30 [employer]MONIA REFRIGERATION WORKER CPT-72374 Allergy Admin 2 14:18:24 AMMONIA REFRIGERATION WORKER CPT-14474 Allergy Admin 2 10:18:29 AMMONIA REFRIGERATION WORKER CPT-66582 Allergy Admin 2 12:57:40 [employer] WORK[employer] CPT-96751 Allergy Admin 2 16:53:33 [employer] WORK[employer] CPT-99587 Allergy Admin 2 12:43:00 [employer] CPT-59255 Allergy Admin 2 13:14:09 [employer] CPT-39912 Pneumovax 23 Injection Injectable 25 MCG /0.5ML 09:51:29 [employer] CPT-G0009 Administration of Pneumococcal Vaccine 09:51:29 [employer] CPT-79995 Influenza split virus > age 3 09:51:29 [employer] CPT-G0008 Administration of Influenza Virus Vaccine 02/23 09:51:29 [employer] CPT-45740 Venipuncture Draw Fee 10:31:06 CDT CPT-J0702 Celestone 12 mg (Betamethasone) 11:34:17 CD T CPT-89822 Abx/Therapy Injection 11:34:17 CDT CPT-64739 Chest 2V Frontal and Lat 11:31:47 CDT 07/04 CPT-87031 Venipuncture Draw Fee 11:31:47 CDT CPT-62573 Allergy Admin 2 14:31:05 CDT CPT-29197 EKG Trac and Interp 08:42:32 CDT CPT-05228 Chest 2V Frontal and Lat 08:42:32 CDT 05/28 CPT-86730 Venipuncture Draw Fee 08:39:02 CDT CPT-24623 Allergy Admin 2 16:59:09 CDT CPT-54632 Allergy Admin 2 17:06:11 CDT CPT-11219 Allergy Admin 2 16:04:36 CDT CPT-97628 Venipuncture Draw Fee 16:32:44 [employer] CPT-14311 Venipuncture Draw Fee 10:54:37 [employer] CPT-60904 Allergy Admin 2 14:53:55 [employer] CPT-75742 Allergy Admin 2 10:23:58 [employer] WORK[employer] CPT-21286 First Vx Component - Ix admi n via ID IM or jet inj without physician counseling 15:34:26 [employer] WORK[employer] CPT-60391 Fluzone (>=3 yrs.) 15:34:26 [employer] WORK[employer] CPT-19544 Allergy Admin 2 15:56:02 [employer] WORK[employer] CPT-86756 Allergy Admin 2 11:08:58 [employer] WORK[employer] CPT-27897 Allergy Admin 2 10:51:36 [employer] WORK[employer] CPT-56320 Allergy Admin 2 15:38:19 [employer] WORK[employer] CPT-24883 Allergy Admin 2 15:12:46 CDT CPT-61712 Allergy Admin 2 10:28:50 CDT CPT-65890 Allergy Admin 2 16:35:33 CDT CPT-13485 Allergy Admin 2 10:14:18 CDT CPT-37182 Abx/Therapy Injection 09:06:45 CDT CPT-J0702 Celestone 6 mg (Betamethasone) 09:06:45 CDT CPT-02610 Allergy Admin 2 15:51:15 CDT CPT-46120 Allergy Admin 2 10:40:16 CDT CPT-05884 Allergy Admin 2 16:35:55 CDT CPT-83736 Allergy Admin 2 13:12:52 CDT CPT-03581 Allergy Admin 2 16:06:50 CDT CPT-45653 Allergy Admin 2 11:04:24 CDT CPT-28358 Allergy Admin 2 10:44:50 CDT CPT-14688 Allergy Admin 2 15:13:40 CDT CPT-93918 Allergy Admin 2 15:00:03 CDT CPT-64200 Allergy Admin 2 10:37:38 CDT CPT-47823 Venipuncture Draw Fee 09:16:43 [employer] CPT-41894 Allergy Admin 2 11:15:59 [employer] CPT-24560 Postop F/U Visit 10:10:52 [employer] CPT-56685 Allergy Admin 2 13:05:05 [employer] CPT-63958 Postop F/U Visit 19:45:16 [employer] CPT-18524 Allergy Admin 2 11:52:35 [employer] CPT-95355 Allergy Admin 2 10:49:22 [employer] CPT-OV Office Visit 13:55:55 [employer] CPT-26858 Allergy Admin 2 12:54:28 [employer] CPT-OV Office Visit 14:04:48 [employer] CPT-60980 Venipuncture Draw Fee 10:29:14 [employer] CPT-19222 Allergy Admin 2 11:24:43 [employer] CPT-93153 Knee 3V 11:00:12 [employer] CPT-38085 C-Spine Min 4V 11:00:12 [employer] CPT-64689 Allergy Admin 2 13:38:40 [employer] CPT-69387 Venipuncture Draw Fee 11:33:37 CDT CPT-29316 Allergy Admin 2 15:34:37 CDT CPT-54378 Allergy Admin 2 14:11:42 CDT CPT-51686 Administration single or combination vac cine inc oral 12:51:42 CDT CPT-06965 Influenza split virus > age 3 12:51:42 CDT CPT-36077 Allergy Admin 2 11:58:43 CDT CPT-84308 Allergy Admin 2 11:29:32 CDT CPT-75874 Allergy Admin 2 10:55:19 CDT CPT-05242 Allergy Admin 2 12:38:54 CDT CPT-63240 Allergy Admin 2 13:01:47 CDT CPT-38049 Abx/Therapy Injection 12:41:18 CDT CPT-J0702 Celestone 12 mg (Betamethasone) 12:41:18 CD T CPT-44678 Abx/Therapy Injection 16:33:09 CDT CPT-J0702 Celestone 12 mg (Betamethasone) 16:33:09 CD T CPT-70918 Allergy Admin 2 15:49:09 CDT CPT-38118 Allergy Admin 2 12:08:56 CDT CPT-32524 Allergy Admin 2 12:19:10 CDT CPT-22812 Allergy Admin 2 12:46:56 CDT CPT-29874 Allergy Admin 2 15:05:13 CDT CPT-48412 Allergy Admin 2 15:36:20 CDT CPT-53719 Allergy Admin 2 09:58:47 [employer] CPT-09933 Allergy Admin 2 12:18:06 [employer] CPT-78301 Allergy Admin 2 10:01:48 [employer] CPT-23230 Allergy Admin 2 12:17:53 [employer] CPT-40230 Allergy Admin 2 10:06:44 [employer] CPT-43621 Allergy Admin 2 10:13:04 [employer] CPT-38858 Venipuncture Draw Fee 10:09:07 [employer] CPT-17727 Bone Density 12:24:51 [employer] CPT-22745 Allergy Admin 2 11:29:41 [employer] CPT-24950 Allergy Admin 2 16:07:15 [employer] CPT-90038 Breathing Treatment 06:34:33 [employer] CPT-J0702 Celestone 12 mg (Betamethasone) 06:34:33 CS T CPT-66586 Abx/Therapy Injection 06:34:33 [employer] CPT-30789 Breathing Tx 11:07:33 [employer] CPT-00393 Allergy Admin 2 10:02:33 CDT CPT-13381 Allergy Admin 2 10:02:33 CDT CPT-79231 Allergy Admin 2 15:26:19 CDT CPT-36936 Administration single or combination vac cine inc oral 15:41:12 CDT CPT-85638 Influenza split virus > age 3 15:41:12 CDT
--- OUTSIDE RECORDS SUMMARY | 2020-09-15 14:36 | XMS REPORT | Clinical Summary ---
[...] Yang APRN Pruritus vulvae Active Ashley Yokum FRONT END DEVELOPER JAV[employer] HTML CSS Screening mammogram V76.12 Resolved Ashley Yokum A PRN Other screening mammogram Sinusitis, acute maxillary 461.0 Inactive 7 Ashley Yokum FR[employer] END DEVELOPER JAV[employer] HTML CSS Acute maxillary sinusitis Diarrhea, acute 787.91 Resolved Ashley Yokum FR[employer] END DEVELOPER JAV[employer] HTML CSS Diarrhea Vaginal candidiasis 112.1 Resolved Ashley Yokum A PRN Candidiasis of vulva and vagina Accidental fall E888.9 Resolved Ashley Yokum FR[employer] END DEVELOPER JAV[employer] HTML CSS Unspecified fall Contusion of left hand, initial encounter 923.20 Resol burak Ashley Yokum [employer] END DEVELOPER [employer] HTML CSS Contusion of hand(s) Contusion of right upper arm, subsequent encounter V58.89 201 09/14/21 Resolved Ashley Yokum FR[employer] END DEVELOPER JAV[employer] HTML CSS Encounter for other specified a ftercare Ganglion cyst of left wrist 727.41 Active Derrick Younger MD Ganglion of joint Body Mass Index 31.0-31.9 Adult Resolved 2017 Ashley Yokum [employer] END DEVELOPER JAV[employer] HTML CSS Body Mass Index 31.0-31.9, adult Plantar fasciitis 728.71 Active Ashley Yokum FR[employer] END DEVELOPER JAV[employer] HTML CSS Plantar fascial fibromatosis Bronchitis, acute 466.0 Inactive Ashley Yokum APR N Acute bronchitis Body Mass Index 30.0-30.9 Adult Resolved 2017 Ashley Yokum [employer] END DEVELOPER JAV[employer] HTML CSS Body Mass Index 30.0-30.9, adult Allergic conjunctivitis, bilateral 372.14 Resolved 2 Ashley Yokum [employer] END DEVELOPER JAV[employer] HTML CSS Other chronic allergic conjunctivitis Skin tags; irritated/inflammed 701.9 Resolved 11/10 Ashley Yokum FR[employer] END DEVELOPER JAV[employer] HTML CSS Unspecified hypertrophic and atrophic co nditions of skin Body Mass Index 31.0-31.9 Adult Refinement 2017 Ashley Yokum FR[employer] END DEVELOPER JAV[employer] HTML CSS Body Mass Index 31.0-31.9, adult BMI 30-30.9 Refinement Ashley Yokum FR[employer] END DEVELOPER JAV[employer] HTML CSS Body Mass Index 31.0-31.9, adult BMI 31-31.9 Refinement Ashley Yokum FR[employer] END DEVELOPER JAV[employer] HTML CSS Body Mass Index 31.0-31.9, adult BMI 32-32.9 Refinement Lois Faith RN Body Mass Index 31.0-31.9, adult BMI 31-31.9 Active Viviana Rubio APRN-Julieta Body Mass Index 31.0-31.9, adult Major depression, recurrent, moderate 296.32 Active Ashley Yokum [employer] END DEVELOPER J[employer] HTML CSS Major depressive disorder, recurrent epi sode, moderate degree Obesity Class I (BMI 30-34.9) Active Ashley Y okum FR[employer] END DEVELOPER JAV[employer] HTML CSS Obesity, unspecified Nausea and vomiting 787.01 Resolved Ashley Yokum A PRN Nausea with vomiting Gastroenteritis acute 558.9 Resolved Ashley Yokum FR[employer] END DEVELOPER JAV[employer]CRIPT HTML CSS Other and unspecified noninfectious gastroenteritis and colitis GERD 530.81 Active Ashley Yokum [employer] END DEVELOPER JAV[employer] HTML CSS E sophageal reflux Joint pain 719.40 Resolved Ashley Yokum FR[employer] END DEVELOPER JAV[employer]CRIPT HTML CSS Pain in joint, site unspecified Preventive health care, adult V70.0 Inactive /06 Ashley Yokum FR[employer] END DEVELOPER JAV[employer] HTML CSS Routine general medical examination at a health care facility Blood in urine 599.70 Resolved Ashley Yokum FR[employer] END DEVELOPER JAV[employer]CRIPT HTML CSS Hematuria, unspecified Other abnormal findings in urine Resolved Ashley Yokum FR[employer] END DEVELOPER JAV[employer]CRIPT HTML CSS Urinary tract infection 599.0 Inactive Ashley Yok um FRONT END DEVELOPER JAVASCRIPT HTML CSS Urinary tract infection, site not specified Chafing of skin 709.8 Resolved Ashley Yokum FR[employer] END DEVELOPER JAV[employer]CRIPT HTML CSS Other specified disorders of skin Preventive care V70.0 Active Supriya Huston A Routine general medical examination at a health care facility Gynecological examination, routine V72.3 Inactive 2 Ashley Yokum FR[employer] END DEVELOPER JAV[employer] HTML CSS Special investigations and e xaminations - Gynecological examination Near syncope 780.2 Resolved Ashley Yokum FR[employer] END DEVELOPER JAV[employer]CRIPT HTML CSS Syncope and collapse Lightheadedness 780.4 Resolved Ashley Yokum FR[employer] END DEVELOPER JAVASCRIPT HTML CSS Dizziness and giddiness Headache 784.0 Resolved Ashley Yokum FR[employer] END DEVELOPER JAVASCRIPT HTML CSS Headache Sore throat 462 Resolved Ashley Yokum FRONT END DEVELOPER JAV[employer]CRIPT HTML CSS Acute pharyngitis Sinusitis - acute 461.9 Resolved Ashley Yokum APR N Acute sinusitis, unspecified Tired all the time 780.79 Resolved Ashley Yokum AP RN Other malaise and fatigue Fatigue 780.79 Inactive Ashley Yokum FR[employer] END DEVELOPER J[employer] HTML CSS Other malaise and fatigue ABNORMAL WEIGHT GAIN ICD-783.1 Inactive Wayne YANG ALLERGIC RHINITIS ICD-477.9 Inactive Lois Angelo mendieta FR[employer] END DEVELOPER JAV[employer] HTML CSS SINUSITIS ICD-473.9 Inactive Lois Deric FRONT END DEVELOPER JAV[employer]CRIPT HTML CSS 2012 WHEEZING ICD-786.07 Inactive Lois Deric FRONT END DEVELOPER JAVASCRIPT HTML CSS 2012 UPPER RESPIRATORY INFECTION, ACUTE ICD-465.9 I nactive Lois Deric FRONT END DEVELOPER JAVASCRIPT HTML CSS NEED FOR DESENSITIZATION TO ALLERGENS ICD-V07.1 8 Inactive Ashley Yokum FRONT END DEVELOPER JAVASCRIPT HTML CSS OBESITY ICD-278.00 Inactive Wayne YANG CONTACT DERMATITIS DUE TO POISON ARANZA ICD-692.6 Inactive Lois Leos FRONT END DEVELOPER JAVASCRIPT HTML CSS NEED PROPHYLACTIC VACCINATION&INOCULATION FLU ICD-V04.81 Inactive Wayne Harms PA GERD ICD-530.81 Inactive Lois Leos FRONT END DEVELOPER JAV[employer]CRIPT HTML CSS 03/22 LONG-TERM (CURRENT) USE OF OTHER MEDICATIONS ICD-V58.69 6 Inactive Wayne Harms PA NECK PAIN ICD-723.1 Inactive Wayne Harms PA 06/15 DEGENERATIVE DISC DISEASE, CERVICAL SPINE ICD-722.4 Inactive Wayne Harms PA SKIN TAG ICD-701.9 Inactive Wayne Harms PA G E R D ICD-530.81 Inactive Lois Leos FRONT END DEVELOPER JAVASCRIPT HTML CSS CANDIDIASIS OF SKIN AND NAILS ICD-112.3 Inacti ve Wayne Harms PA AFTERCARE FOLLOW SURGERY MUSCULOSKEL SYSTEM NEC ICD-V58.78 Inactive Wayne Harms PA PHARYNGITIS ICD-462 Inactive Wayne Harms PA 05/03 OTHER SCREENING MAMMOGRAM ICD-V76.12 Inactive Wayne Harms PA DYSPAREUNIA, MILD ICD-625.0 Inactive Wayne Harm s PA CONTACT DERMATITIS DUE TO POISON ARANZA ICD-692.6 Inactive Wayne Harms PA Sinusitis, chronic ICD-473.9 Inactive Ashley vallejo FRONT END DEVELOPER JAV[employer] HTML CSS Myalgia ICD-729.1 Inactive Wayne Harms PA Rheumatoid [...] patella, 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 Inacti ve Beatriz Velazquezbarger Chondromalacia patella, 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 Inactiv e Wayne [...] PA Runny nose ICD-472.0 Inactive Ashley Yang [employer] END DEVELOPER JAV[employer] HTML CSS Influenza like illness ICD-487.1 Inactive Wayne Moon PA Acute maxillary sinusitis ICD-461.0 Inactive Ashley Yokum FRONT END DEVELOPER JAVASCRIPT HTML CSS Preventive health care ICD-V70.0 Inactive Jenny mo Yokum FRONT END DEVELOPER JAVASCRIPT HTML CSS Well women exam ICD-V72.3 Inactive Ashley Yokum FRONT END DEVELOPER JAVASCRIPT HTML CSS Screening mammogram ICD-V76.12 Inactive Ashley Yokum FRONT END DEVELOPER JAVASCRIPT HTML CSS Sinusitis, acute maxillary ICD-461.0 Inactive Ashley Yokum FRONT END DEVELOPER JAVASCRIPT HTML CSS Diarrhea, acute ICD-787.91 Inactive Ashley Merazu m FR[employer] END DEVELOPER JAV[employer]CRIPT HTML CSS Vaginal candidiasis ICD-112.1 Inactive Ashley Y abdonum FRONT END DEVELOPER JAVASCRIPT HTML CSS Accidental fall ICD-E888.9 Inactive Ashley Yoku m FR[employer] END DEVELOPER JAV[employer]CRIPT HTML CSS Contusion of left hand, initial encounter ICD-923.20 Inactive Ashley Yokum FR[employer] END DEVELOPER JAVASCRIPT HTML CSS Contusion of right upper arm, subsequent encounter ICD-V58.89 Inactive Ashley Yokum FRONT END DEVELOPER JAVASCRIPT HTML CSS Body Mass Index 31.0-31.9 Adult Inac tive Ashley Yokum FR[employer] END DEVELOPER JAV[employer]CRIPT HTML CSS Bronchitis, acute ICD-466.0 Inactive Ashley Yok um FRONT END DEVELOPER JAVASCRIPT HTML CSS Body Mass Index 30.0-30.9 Adult Inac tive Ashley Yokum FRONT END DEVELOPER JAVASCRIPT HTML CSS Allergic conjunctivitis, bilateral ICD-372.14 I nactive Ashley Yokum FRONT END DEVELOPER JAVASCRIPT HTML CSS Skin tags; irritated/inflammed ICD-701.9 Inact ranch[place] Ashley Yokum FRONT END DEVELOPER JAVASCRIPT HTML CSS Nausea and vomiting ICD-787.01 Inactive Ashley Yokum FRONT END DEVELOPER JAVASCRIPT HTML CSS Gastroenteritis acute ICD-558.9 Inactive Conchis hi Yokum FRONT END DEVELOPER JAVASCRIPT HTML CSS Joint pain ICD-719.40 Inactive Ashley Yokum APR N Preventive health care, adult ICD-V70.0 Inacti ve Ashley Yokum FRONT END DEVELOPER JAVASCRIPT HTML CSS Blood in urine ICD-599.70 Inactive Ashley Yokum FRONT END DEVELOPER JAVASCRIPT HTML CSS Other abnormal findings in urine [place] ctive Ashley Yokum FRONT END DEVELOPER JAVASCRIPT HTML CSS Urinary tract infection ICD-599.0 Inactive K athi Yokum FRONT END DEVELOPER JAVASCRIPT HTML CSS Chafing of skin ICD-709.8 Inactive Ashley Yokum FRONT END DEVELOPER JAVASCRIPT HTML CSS Gynecological examination, routine ICD-V72.3 I nactive Ashley Yokum FR[employer] END DEVELOPER JAVASCRIPT HTML CSS Near syncope ICD-780.2 Inactive Ashley Yokum AP RN Lightheadedness ICD-780.4 Inactive Ashley Yokum FR[employer] END DEVELOPER JAVASCRIPT HTML CSS Headache ICD-784.0 Inactive Ashley Yokum FR[employer] END DEVELOPER JAVASCRIPT HTML CSS 2020 Sore throat ICD-462 Inactive Ashley Yokum FR[employer] END DEVELOPER JAVASCRIPT HTML CSS 02/17/17 Sinusitis - acute ICD-461.9 Inactive Ashley Yok um FR[employer] END DEVELOPER JAVASCRIPT HTML CSS Tired all the time ICD-780.79 Inactive Ashley coppolaum FRONT END DEVELOPER JAVASCRIPT HTML CSS Fatigue ICD-780.79 Inactive Ashley Mirеленаum FRONT END DEVELOPER JAVASCRIPT HTML CSS 2020 Medication List Medication Instructions Start Date Stop Date Generic Name ND Status Provider Patient Instruction PHENTERMINE HCL 37.5 MG TABS 1/2 TAB IN MORING, CAN IN CREASE TO 1 TAB IN MORING. TAKE 30 MIN BEFORE BREAKFAST OR 2 HRS AFTER BREAKFAST PHENTERMINE HCL 04472308414 Active Shanelle Rivera RN Active EQ LORATADINE 10 MG ORAL TABLET TAKE 1 TABLET BY MOUTH ONCE DAILY NEEDED FOR ALLERGIES LORATADINE 57862195405 Active Shanelle Rivera RN Active ALPRAZOLAM 0.25 MG TABS TAKE 1 TO 2 TABLETS BY MOUTH THREE TIMES DAILY NEEDED ALPRAZOLAM 34642744120 Active Shanelle Rivera RN Active MUCINEX D 60-600 MG ORAL TABLET EXTENDED RELEASE 12 HO UR 1 po BID PRN Congestion PSEUDOEPHEDRINE-GUAIFENESIN 64935658426 Active Ashleykaleigh Merazum ELAINA Active ZYRTEC ALLERGY 10 MG ORAL CAPSULE 1qd CETIR IZINE HCL 28073145016 No Longer Active Ashley Yoеленаum FRONT END DEVELOPER JAVASCRIPT HTML CSS Active HAIR, SKIN, NAILS VITAMINS take 1 tab by mouth 2x a day HAIR, SKIN, NAILS VITAMINS Active Ashley Yokum FR[employer] END DEVELOPER JAVASCRIPT HTML CSS Active CENTRUM SILVER FOR WOMEN OVER 50 1 tab by mouth by day. CENTRUM SILVER FOR WOMEN OVER 50 Active Ashley Yokum FRONT END DEVELOPER JAVASCRIPT HTML CSS Active VITAMIN D3 1000 UNIT ORAL CAPSULE 1 po qd CH OLECALCIFEROL 20294692048 Active Ashley Yoеленаum ELAINA Active PREDNISONE 20 MG ORAL TABLET Take 2 tablets by mouth d aily for 2 days then 1 tablet daily for 2 days. PREDNISONE 43465519725 No Longer Active Ashley Merazum ELAINA Active MELOXICAM 15 MG ORAL TABLET TAKE 1 TABLET BY MOUTH IN THE MORNING 2 MELOXICAM 65784268939 Active Shanelle Rivera RN Active SIMVASTATIN 40 MG ORAL TABLET TAKE 1 TABLET BY MOUTH ONCE DA JAVON AT BEDTIME SIMVASTATIN 06265691311 Active RENATA MurilloA Active [id number] ORAL TABLET MULT IPLE MINERALS 93379479849 Active Lios Faith RN Active SERTRALINE HCL 100 MG ORAL TABLET Take 1 tablet by mouth once da javon SERTRALINE HCL 31003845600 Active RENATA MurilloA A ctive REGLAN 10 MG ORAL TABLET 1 po qid for bowels 3 METOCLOPRAMIDE HCL 89271168873 No Longer Active Ashley Clarkeyoni DELANEY A ctive ADK [id number] UNIT-MCG ORAL CAPSULE 1 daily VITAMINS A D K 12332501889 Active Ashley Clarkekum ELAINA Active B-12 2500 MCG ORAL TABLET 1 daily CYANOCOBAL HUNT 07556133011 No Longer Active Ashley Ktum ELAINA Active ESTRADIOL 2 MG TABS Take 1 tablet by mouth once daily ESTRADIOL 62565768145 Active Shanelle Rivera RN Active MACROBID 100 MG ORAL CAPSULE 1 cap by mouth twice daily NITROFURANTOIN MONOHYD MACRO 80011643436 No Longer Active Ashley Clarkekum FRONT END DEVELOPER JAVASCRIPT HTML CSS Active FISH OIL + D3 6378-9639 MG-UNIT ORAL CAPSULE 1 dailly 4 FISH OIL-CHOLECALCIFEROL 96474795676 Active Ashley Yokum FRONT END DEVELOPER JAVASCRIPT HTML CSS Acti ve PROAIR HFA 108 (90 BASE) MCG/ACT INHALATION AEROSOL SO LUTION 2 puffs four times a day as needed ALBUTEROL SULFATE 23397676564 No Long er Active Ashley Yokum FR[employer] END DEVELOPER JAVASCRIPT HTML CSS Active ZITHROMAX Z-SANJANA 250 MG ORAL TABLET Take 2 tablets toda y and 1 each day till gone AZITHROMYCIN 21390829379 No Longer Active Ashley Yokum FRONT END DEVELOPER JAVASCRIPT HTML CSS Active POLYTRIM 07617-2.1 UNIT/ML-% OPHTHALMIC SOLUTION 1 gtt to affected eye q3h x 7 days POLYMYXIN B-TRIMETHOPRIM 61542114023 No Longer Active Ashley Yokum FRONT END DEVELOPER JAVASCRIPT HTML CSS Active IBUPROFEN 200 MG ORAL TABLET Take 3 tablets every 6hrs 201 09/17/15 IBUPROFEN 56420954582 No Longer Active Ashley Yokum FR[employer] END DEVELOPER JAVASCRIPT HTML CSS Active DIFLUCAN 150 MG ORAL TABLET Take one tablet today and repeat in 72 hours FLUCONAZOLE 72362291779 No Longer Active Derrick cardenas MD Active DIFLUCAN 150 MG ORAL TABLET 1 by mouth for yeast 03/03 FLUCONAZOLE 74279879485 No Longer Active Ashley Yokum FRONT END DEVELOPER JAVASCRIPT HTML CSS Active AUGMENTIN 875-125 MG ORAL TABLET Take one tablet twice a day with food AMOXICILLIN-POT CLAVULANATE 75709403088 No Longer Act rancho Ashley Yokum FRONT END DEVELOPER JAVASCRIPT HTML CSS Active CALCIUM 600 + D 600-200 MG-UNIT ORAL TABLET Take one daily CALCIUM CARB-CHOLECALCIFEROL 34654505713 No Longer Active Ashley Yokum FRONT END DEVELOPER JAVASCRIPT HTML CSS Active FLONASE 50 MCG/ACT NASAL SUSPENSION 1 spray each nostr il twice daily for allergies and runny nose FLUTICASONE PROPIONATE 06012636227 No Longer Active Ashley Yokum FRONT END DEVELOPER JAVASCRIPT HTML CSS Active CLARITIN-D 12 HOUR 5-120 MG ORAL TABLET EXTENDED RELEA SE 12 HOUR Take one tablet BID as needed for allergies LORATADINE-PSEUDOEP HEDRINE 23761137603 No Longer Active Beth Turner [employer]Y WORKER Active AMOXICILLIN-POT CLAVULANATE 875-125 MG ORAL TABLET 1 pill by mouth twice daily AMOXICILLIN-POT CLAVULANATE 43097084730 No Longer Act rancho Ashley Yokum FRONT END DEVELOPER JAVASCRIPT HTML CSS Active AMOXICILLIN 500 MG ORAL CAPSULE Take 1 capsule by mout h three times a day X 10 days AMOXICILLIN 24709656914 No Longer Active Wayne Denys paul PA Active PROBIOTIC DAILY ORAL CAPSULE Take one daily PROBIO TIC PRODUCT 12135102380 Active Wayne Red PA Active TYLENOL 325 MG ORAL TABLET Take 2 every 6hrs prn A CETAMINOPHEN 87840104930 Active Wayne Red PA Active ACETAMINOPHEN 500 MG ORAL TABLET prn RICH TAMINOPHEN 55369113053 No Longer Active Wayne Harms PA Active CLARITIN-D 12 HOUR 5-120 MG ORAL TABLET EXTENDED RELEA SE 12 HOUR Take one tablet bid LORATADINE-PSEUDOEPHEDRINE 30859093097 No Longe r Active Wayne Harms PA Active MOBIC 15 MG ORAL TABLET 1 tablet by mouth daily in am with PPI 2 MELOXICAM 39714728208 No Longer Active Wayne Harms PA Acti ve HYDROCORTISONE 2.5 % EXTERNAL CREAM Apply three times a day to affected area HYDROCORTISONE 64969046439 No Longer Active Wayne Harms PA Active VITAMIN D3 1000 UNIT ORAL TABLET Take two daily CHOLECALCIFEROL 40609491160 No Longer Active Wayne Harms PA Active PROBIOTIC ORAL CAPSULE Take one daily PROBIOTIC PRODUCT 58568012359 No Longer Active Wayne Harms PA Active GREEN TEA SLIM ORAL TABLET Take one daily [facility] NATURAL PRODUCTS 10933006043 No Longer Active Wayne Harms PA Active BENZONATATE 200 MG ORAL CAPSULE Take one capsule three times a d ay BENZONATATE 27639725618 No Longer Active Wayne Harms PA Act rancho ZITHROMAX Z-SANJANA 250 MG ORAL TABLET 2 today, then 1 daily for 4 d ays AZITHROMYCIN 91994369583 No Longer Active Wayne Harms PA Ac tive ZITHROMAX 250 MG ORAL TABLET 2 po today, then 1 po q days 2-5 20 31/03/18 AZITHROMYCIN 20331470797 No Longer Active Beth Turner [employer]Y WORKER Active OMEPRAZOLE 20 MG ORAL CAPSULE DELAYED RELEASE 1 tablet by mo [facility] daily OMEPRAZOLE 85317630789 Active Supriya Huston RMA Active ZITHROMAX Z-SANJANA 250 MG ORAL TABLET 2x1day,9a1yoje 2014 AZITHROMYCIN 93145492561 No Longer Active Wayne Harms PA Active FISH OIL 1200 MG ORAL CAPSULE One daily prn OME GA-3 FATTY ACIDS 62823620263 No Longer Active Wayne Harms PA Active CEPHALEXIN 250 MG ORAL CAPSULE Take one tablet qid 201 05/25/29 CEPHALEXIN 73033763079 No Longer Active Wayne Harms PA Active VITAMIN D3 1000 UNIT ORAL TABLET 1qd CHOLEC ALCIFEROL 64528425100 No Longer Active Wayne Harms PA Active B-12 2000 MCG ORAL TABLET 1qd CYANOCOBALAMI N 00879182890 No Longer Active Wayne Harms PA Active ACIPHEX 20 MG ORAL TABLET DELAYED RELEASE 1qd 10/28 RABEPRAZOLE SODIUM 86820544162 No Longer Active Wayne Harms PA Active HYDROCORTISONE 2.5 % EXTERNAL CREAM apply 3-4 times a day to affected area HYDROCORTISONE 41557116806 No Longer Active Wayne Harms PA Active MUCINEX 600 MG ORAL TABLET EXTENDED RELEASE 12 HOUR 2qd GUAIFENESIN 82022014793 No Longer Active Wayne Harms PA Active TUSSIONEX PENNKINETIC ER 10-8 MG/5ML ORAL SUSPENSION E XTENDED RELEASE 5ml po q12hr PRN Cough HYDROCOD POLST-CHLORPHEN POLST 5 0890451514 No Longer Active Wayne Harms PA Active ZITHROMAX 250 MG ORAL TABLET 2 po today, then 1 po q days 2-5 20 26/06/21 AZITHROMYCIN 12617666836 No Longer Active Wayne Harms PA Ac tive CLARITIN 10 MG ORAL TABLET one tablet daily THEO ATADINE 25426246368 No Longer Active Wayne Harms PA Active FLAGYL 500 MG ORAL TABLET 1 tablet by mouth three times daily 20 28/05/03 METRONIDAZOLE 76599026626 No Longer Active Wayne Harms PA A ctive CHERATUSSIN AC 100-10 MG/5ML ORAL SYRUP one teaspoon qid. 9 GUAIFENESIN-CODEINE 12641249005 No Longer Active Wayne Harms PA Act rancho VITAMIN D 1000 UNIT ORAL TABLET 1qd CHOLECA LCIFEROL 07520975231 No Longer Active Wayne Harms PA Active CYMBALTA 60 MG ORAL CAPSULE DELAYED RELEASE PARTICLES 1 cap by mouth daily DULOXETINE HCL 83505544324 No Longer Active Wayne Harms PA Active AMOXICILLIN 500 MG ORAL CAPSULE 2 caps tid for 10days AMOXICILLIN 04122870543 No Longer Active Wayne Harms PA Active CALCIUM + D 600-200 MG-UNIT TABS Take one by mouth daily CALCIUM CARBONATE-VITAMIN D 98738698235 No Longer Active Wayne Harms PA Active CENTRUM SILVER ADULT 50+ ORAL TABLET 1qd 2013 MULTIPLE VITAMINS-MINERALS 91220408774 No Longer Active Wayne Harms PA Active VENLAFAXINE HCL 75 MG ORAL TABLET 1tid VE NLAFAXINE HCL 84386842389 No Longer Active Wayne Harms PA Active CLARITIN 10 MG ORAL TABLET 1 tablet by mouth daily as needed for allergies LORATADINE 17132199389 No Longer Active Wayne Harms PA Acti ve HYDROCORTISONE 2.5 % EXTERNAL CREAM Apply four times a day to af fected area HYDROCORTISONE 75987597786 No Longer Active Wayne Harms PA Active ZITHROMAX 250 MG ORAL TABLET 2 po today, then 1 po q days 2-5 20 26/02/30 AZITHROMYCIN 79888354582 No Longer Active Wayne Harms PA Ac tive ZITHROMAX 250 MG ORAL TABLET 2 po today, then 1 po q days 2-5 20 27/02/16 AZITHROMYCIN 14690351120 No Longer Active Wayne Harms PA Ac tive CYMBALTA 30 MG ORAL CAPSULE DELAYED RELEASE PARTICLES 3 caps daily DULOXETINE HCL 71014319208 No Longer Active Wayne Harms PA Active CYMBALTA 60 MG ORAL CAPSULE DELAYED RELEASE PARTICLES one tablet daily, takes 30mg. with 60mg. to make 90 mg. DULOXETINE HCL 95024466460 No Longer Active Wayne Harms PA Active CYMBALTA 30 MG ORAL CAPSULE DELAYED RELEASE PARTICLES 1 daily wi th 60mg DULOXETINE HCL 46146626525 No Longer Active Wayne Harms PA Active ZITHROMAX 250 MG ORAL TABLET 2 po today, then 1 po q days 2-5 20 26/12/21 AZITHROMYCIN 93917783841 No Longer Active Ismael YANG Active PREDNISONE 20 MG ORAL TABLET 3tab x 2days,2tab x 2days ,1tab x 2days,1/2tab x 2days PREDNISONE 07730913176 No Longer Active Wayne Vera jarvis PA Active PREMARIN 0.625 MG ORAL TABLET Take one by mouth daily ESTROGENS CONJUGATED 85393201385 No Longer Active Wayne Harms PA Active ZITHROMAX 250 MG ORAL TABLET 2 po today, then 1 po q days 2-5 20 26/06/19 AZITHROMYCIN 07095439420 No Longer Active Nereyda Lucke Activ e OMEGA-3 1000 MG ORAL CAPSULE 2qd OMEGA-3 FA TTY ACIDS 31416242866 No Longer Active Wayne Harms PA Active BENADRYL ITCH STOPPING 1-0.1 % EXTERNAL CREAM prn DIPHENHYDRAMINE- ZINC ACETATE 56015891919 No Longer Active Wayne Harms PA Active LOTRISONE 1-0.05 % EXTERNAL CREAM Apply bid CLOTRIMAZOLE-BETAMETHASONE 43146457938 No Longer Active Wayne Harms PA Active ZITHROMAX Z-SANJANA 250 MG ORAL TABLET take as directed 26/04/19 AZITHROMYCIN 09112582543 No Longer Active Wayne Harms PA Active NYSTATIN 036054 UNIT/GM EXTERNAL POWDER Apply to affected areas BID NYSTATIN 51459854668 No Longer Active Wayne Harms PA Acti ve BENADRYL 25 MG ORAL CAPSULE prn DIPHENHYDRAMINE HCL 82384152508 Active Wayne Harms PA Active LOTRISONE 1-0.05 % EXTERNAL CREAM apply twice a day 20 25/02/17 CLOTRIMAZOLE-BETAMETHASONE 17856388347 No Longer Active Wayne Harms PA Active HYDROCODONE-ACETAMINOPHEN 5-325 MG ORAL TABLET 1-2 every 4hr s prn pain HYDROCODONE-ACETAMINOPHEN 40360082107 No Longer Activ e Wayne Harms PA Active VICODIN 5-300 MG ORAL TABLET 1-2 tabs every 6hrs as needed for p ain HYDROCODONE-ACETAMINOPHEN 75556252360 No Longer Active Wayne Harms PA Active BENADRYL 25 MG ORAL CAPSULE 1prn DIPHENHYDRA MINE HCL 98581264701 No Longer Active Jillina Frazell FRONT END DEVELOPER JAVASCRIPT HTML CSS Active ROBITUSSIN DM 100-10 MG/5ML ORAL SYRUP 2 teaspoons four times a day DEXTROMETHORPHAN-GUAIFENESIN 09171000923 No Longer Active Jillina Frazell FRONT END DEVELOPER JAVASCRIPT HTML CSS Active ACIPHEX 20 MG ORAL TABLET DELAYED RELEASE Take one by mouth daily RABEPRAZOLE SODIUM 28285793371 No Longer Active Jillina Frazell FRONT END DEVELOPER JAVASCRIPT HTML CSS Active TUMS 500 MG ORAL TABLET CHEWABLE prn SADIQ CIUM CARBONATE ANTACID 97623285796 No Longer Active Jillina Frazell FRONT END DEVELOPER JAVASCRIPT HTML CSS Active PEPTO-BISMOL 524 MG/30ML ORAL SUSPENSION prn 02/26 BISMUTH SUBSALICYLATE 25513765588 No Longer Active Jillina Frazell FRONT END DEVELOPER JAVASCRIPT HTML CSS Active BACTRIM DS 800-160 MG ORAL TABLET 1bid SULFAMETHOXAZOLE-TRIMETHOPRIM 61771721717 No Longer Active Beth Naff [employer]Y WORKER Active GAVISCON EXTRA RELIEF FORMULA CHEW prn A LUM HYDROXIDE-MAG CARBONATE CHEW 50831932692 Active Wayne Harms PA Active DIFLUCAN 150 MG ORAL TABLET 1stat FLUCONAZOL E 39793630684 No Longer Active Wayne Harms PA Active AUGMENTIN 875-125 MG ORAL TABLET 1 tab by mouth twice daily with food AMOXICILLIN-POT CLAVULANATE 65983542505 No Longer Act rancho Wayne Harms PA Active FLUTICASONE PROPIONATE 50 MCG/ACT NASAL SUSPENSION 1 t o 2 sprays each nostril twice a day FLUTICASONE PROPIONATE 65653602811 No Lo nger Active Wayne Harms PA Active HYDROCORTISONE 2.5 % EXTERNAL CREAM apply 2-4 times a day, a s directed, prn HYDROCORTISONE 31788882454 No Longer Active Wayne Harms PA Active ZITHROMAX Z-SANJANA 250 MG ORAL TABLET A ZITHROMYCIN 83619206237 No Longer Active Wayne Harms PA Active SIMVASTATIN 40 MG ORAL TABLET one tablet daily SIMVASTATIN 78094838995 No Longer Active Misty Yoo [employer]AL [employer]Y WORKER Active LOVASTATIN 40 MG ORAL TABLET Take one by mouth daily 12/11 LOVASTATIN 51959787427 No Longer Active Misty Yoo [employer]AL [employer]Y WORKER Active PREDNISONE 20 MG ORAL TABLET 2 PO qd x 2d, 1 PO qd x 2d, 1/2 PO qd x 2d PREDNISONE 99896220346 No Longer Active Ismael silva PA Active ZITHROMAX 250 MG ORAL TABLET two tablets now and one daily x 4 d ays AZITHROMYCIN 92815981386 No Longer Active Misty Yoo [employer] SUP[employer]Y WORKER Active ZOLPIDEM TARTRATE 10MG TABS (ZOLPIDEM TARTRATE) 1 at bedtime as needed Active Supriya Betzaida RMA Active CLOBETASOL PROPIONATE 0.05 % EXTERNAL CREAM apply as directed CLOBETASOL PROPIONATE 72917739207 No Longer Active Wayne Harms PA A ctive CYMBALTA 30 MG ORAL CAPSULE DELAYED RELEASE PARTICLES takes 90mg qod alt with 60mg DULOXETINE HCL 23424453402 No Longer Active Wayne Harm s PA Active ZITHROMAX 250 MG ORAL TABLET 2 po today, then 1 po q days 2-5 20 12/24/14 AZITHROMYCIN [id number] No Longer Active Wayne Harms PA Ac tive TRIAMCINOLONE ACETONIDE 0.1 % EXTERNAL CREAM apply qid TRIAMCINOLONE ACETONIDE [id number] No Longer Active Wayne Harms PA Active ALPRAZOLAM 0.25 MG ORAL TABLET 1 tab three times a day 201 02/23/14 ALPRAZOLAM [id number] No Longer Active Wayne Harms PA Active ZOLPIDEM TARTRATE 5 MG ORAL TABLET 1 at bedtime as needed ZOLPIDEM TARTRATE [id number] No Longer Active Beth Turner [employer] Active ALPRAZOLAM 0.25 MG ORAL TABLET 1 tab three times a day ALPRAZOLAM 0.25 MG ORAL TABLET 304821 ALPRAZOLAM Inactive TRIAMCINOLONE ACETONIDE 0.1 % EXTERNAL CREAM apply qid TRIAMCINOLONE ACETONIDE 0.1 % EXTERNAL CREAM 3122232 TRIAMCINOLONE A CETONIDE Inactive CYMBALTA 30 MG ORAL CAPSULE DELAYED RELEASE PARTICLES takes 90mg qod alt with 60mg CYMBALTA 30 MG ORAL CAPSULE DELAYED RELEA SE PARTICLES 137692 DULOXETINE HCL Inactive CLOBETASOL PROPIONATE 0.05 % EXTERNAL CREAM apply as directed CLOBETASOL PROPIONATE 0.05 % EXTERNAL CREAM 739227 CLOBETASOL PROPI KELVIN Inactive LOVASTATIN 40 MG ORAL TABLET Take one by mouth daily 2 LOVASTATIN 40 MG ORAL TABLET 675983 LOVASTATIN Inactive ZITHROMAX Z-SANJANA 250 MG ORAL TABLET 03/03 ZITHROMAX Z-SANJANA 250 MG ORAL TABLET 566068 AZITHROMYCIN Inactive HYDROCORTISONE 2.5 % EXTERNAL CREAM apply 2-4 times a day, a s directed, prn HYDROCORTISONE 2.5 % EXTERNAL CREAM 336828 HYDRO CORTISONE Inactive FLUTICASONE PROPIONATE 50 MCG/ACT NASAL SUSPENSION 1 t o 2 sprays each nostril twice a day FLUTICASONE PROPIONA TE 50 MCG/ACT NASAL SUSPENSION 5247186 FLUTICASONE PROPIONATE Inactive AUGMENTIN 875-125 MG ORAL TABLET 1 tab by mouth twice daily with food AUGMENTIN 875-125 MG ORAL TABLET AMOXICIL BLOSSOM-POT CLAVULANATE Inactive DIFLUCAN 150 MG ORAL TABLET 1stat DIFLUCAN 150 MG ORAL TABLET 025519 FLUCONAZOLE Inactive PEPTO-BISMOL 524 MG/30ML ORAL SUSPENSION prn PEPTO-BISMOL 524 MG/30ML ORAL SUSPENSION BISMUTH SUBSALICYLATE Inactive TUMS 500 MG ORAL TABLET CHEWABLE prn TUMS 500 MG ORAL TABLET CHEWABLE 333698 CALCIUM CARBONATE ANTACID Inactive ACIPHEX 20 MG ORAL TABLET DELAYED RELEASE Take one by mouth daily ACIPHEX 20 MG ORAL TABLET DELAYED RELEASE 701970 RABEPRAZOLE SODIUM Inactive ROBITUSSIN DM 100-10 MG/5ML [...] pain HYDROCODONE-ACETAMINOPHEN 5-325 MG ORAL TABLET 8 22381 HYDROCODONE-ACETAMINOPHEN Inactive LOTRISONE 1-0.05 % EXTERNAL CREAM apply twice a day 20 25/02/17 LOTRISONE 1- 0.05 % EXTERNAL CREAM CLOTRIMAZOLE-BETAMETHASONE Inactive NYSTATIN 624934 UNIT/GM EXTERNAL POWDER Apply to affected areas BID NYSTATIN 881454 UNIT/GM EXTERNAL POWDER 897907 NYSTATIN Inactive ZITHROMAX Z-SANJANA 250 MG ORAL TABLET take as directed 20 26/04/19 ZITHROMAX Z-SANJANA 250 MG ORAL TABLET 675915 AZITHROMYCIN Inact [place] LOTRISONE 1-0.05 % EXTERNAL CREAM Apply bid LOTRISONE 1- 0.05 % EXTERNAL CREAM CLOTRIMAZOLE-BETAMETHASONE Inactive BENADRYL ITCH STOPPING 1-0.1 % EXTERNAL CREAM prn BENADRYL ITCH STOPPING 1-0.1 % EXTERNAL CREAM DIPHENHYDRAMINE-ZINC ACETATE Inactive OMEGA-3 1000 MG ORAL CAPSULE 2qd OMEGA-3 1000 MG ORAL CAPSULE 538516 OMEGA-3 FATTY ACIDS Inactive ZITHROMAX 250 MG ORAL TABLET 2 po today, then 1 po q days 2-5 20 26/06/19 ZITHROMAX 250 MG ORAL TABLET 496360 AZITHROMYCIN Mara ctive PREMARIN 0.625 MG ORAL TABLET Take one by mouth daily PREMARIN 0.625 MG ORAL TABLET ESTROGENS CONJUGATED Inactive PREDNISONE 20 MG ORAL TABLET 3tab x 2days,2tab x 2days ,1tab x 2days,1/2tab x 2days PREDNISONE 20 MG ORAL TABLET 288374 PREDNIS ONE Inactive CYMBALTA 30 MG ORAL CAPSULE DELAYED RELEASE PARTICLES 1 daily wi th 60mg CYMBALTA 30 MG ORAL CAPSULE DELAYED RELEASE PARTICLES 060795 DULOXETINE HCL Inactive CYMBALTA 60 MG ORAL CAPSULE DELAYED RELEASE PARTICLES one tablet daily, takes 30mg. with 60mg. to make 90 mg. CYMBALTA 60 MG ORAL CAPSULE DELAYED RELEASE PARTICLES 973655 DULOXETINE HCL Inacti ve CYMBALTA 30 MG ORAL CAPSULE DELAYED RELEASE PARTICLES 3 caps daily CYMBALTA 30 MG ORAL CAPSULE DELAYED RELEASE PARTICLES 650951 DULOXE ROSANNE HCL Inactive HYDROCORTISONE 2.5 % EXTERNAL CREAM Apply four times a day to af fected area HYDROCORTISONE 2.5 % EXTERNAL CREAM 617570 HYDROCORTISO NE Inactive CLARITIN 10 MG ORAL TABLET 1 tablet by mouth daily as needed for allergies CLARITIN 10 MG ORAL TABLET 562796 LORATADINE Inact [place] VENLAFAXINE HCL 75 MG ORAL TABLET 1tid VENLAFAXINE HCL 75 MG ORAL TABLET 609645 VENLAFAXINE HCL Inactive CENTRUM SILVER ADULT 50+ ORAL TABLET 1qd 2013 CENTRUM SILVER ADULT 50+ ORAL TABLET MULTIPLE VITAMINS-MINERALS Inactive CALCIUM + D 600-200 MG-UNIT TABS Take one by mouth daily CALCIUM + D 600-200 MG-UNIT TABS CALCIUM CARBONATE-VITAMIN D Inactive AMOXICILLIN 500 MG ORAL CAPSULE 2 caps tid for 10days AMOXICILLIN 500 MG ORAL CAPSULE 577750 AMOXICILLIN Inactive CYMBALTA 60 MG ORAL CAPSULE DELAYED RELEASE PARTICLES 1 cap by mouth daily CYMBALTA 60 MG ORAL CAPSULE DELAYED RELE ASE PARTICLES 734292 DULOXETINE HCL Inactive VITAMIN D 1000 UNIT ORAL TABLET 1qd 4 VITAMIN D 1000 UNIT ORAL TABLET CHOLECALCIFEROL Inactive CHERATUSSIN AC 100-10 MG/5ML ORAL SYRUP one teaspoon qid. 9 CHERATUSSIN AC 100-10 MG/5ML ORAL SYRUP GUAIFENESIN-CODEINE Inactive FLAGYL 500 MG ORAL TABLET 1 tablet by mouth three times daily 20 28/05/03 FLAGYL 500 MG ORAL TABLET 570774 METRONIDAZOLE Inacti ve CLARITIN 10 MG ORAL TABLET one tablet daily CLARITIN 10 MG ORAL TABLET 418828 LORATADINE Inactive TUSSIONEX PENNKINETIC ER 10-8 MG/5ML [...] affected area HYDROCORTISONE 2.5 % EXTERNAL CREAM 446085 HYDRO CORTISONE Inactive ACIPHEX 20 MG ORAL TABLET DELAYED RELEASE 1qd ACIPHEX 20 MG ORAL TABLET DELAYED RELEASE 162168 RABEPRAZOLE SODIUM Inactive B-12 2000 MCG ORAL TABLET 1qd B-12 2000 MCG ORAL TABLET CYANOCOBALAMIN Inactive VITAMIN D3 1000 UNIT ORAL TABLET 1qd VITAMIN D3 1000 UNIT ORAL TABLET CHOLECALCIFEROL Inactive CEPHALEXIN 250 MG ORAL CAPSULE Take one tablet qid 201 05/25/29 CEPHALEXIN 250 MG ORAL CAPSULE 542157 CEPHALEXIN Inactive FISH OIL 1200 MG ORAL CAPSULE One daily prn FISH OIL 1200 MG ORAL CAPSULE OMEGA-3 FATTY ACIDS Inactive ZITHROMAX Z-SANJANA 250 MG ORAL TABLET 2x1day,[id number] 2014 ZITHROMAX Z-SANJANA 250 MG ORAL TABLET 049312 AZITHROMYCIN [place]act [place] BENZONATATE 200 MG ORAL CAPSULE Take one capsule three times a d ay BENZONATATE 200 MG ORAL CAPSULE 077326 BENZONATATE Inactive GREEN TEA SLIM ORAL TABLET Take one daily GREEN TEA SLIM ORAL TABLET MISC NATURAL PRODUCTS Inactive PROBIOTIC ORAL CAPSULE Take one daily PROBIOTIC ORAL CAPSULE 6186331 PROBIOTIC PRODUCT Inactive VITAMIN D3 1000 UNIT ORAL TABLET Take two daily 05/05 VITAMIN D3 1000 UNIT ORAL TABLET CHOLECALCIFEROL Inactive HYDROCORTISONE 2.5 % EXTERNAL CREAM Apply three times a day to affected area HYDROCORTISONE 2.5 % EXTERNAL CREAM 950999 HYDRO CORTISONE Inactive MOBIC 15 MG ORAL TABLET 1 tablet by mouth daily in am with PPI 2 MOBIC 15 MG ORAL TABLET 485446 MELOXICAM Inactive CLARITIN-D 12 HOUR 5-120 MG ORAL TABLET EXTENDED RELEA SE 12 HOUR Take one tablet bid CLARITIN-D 12 HOUR 5 -120 MG ORAL TABLET EXTENDED RELEASE 12 HOUR LORATADINE-PSEUDOEPHEDRINE Inactive ACETAMINOPHEN 500 MG ORAL TABLET prn ACETAMINOPHEN 500 MG ORAL TABLET 705975 ACETAMINOPHEN Inactive CLARITIN-D 12 HOUR 5-120 MG [...] yeast 03/03 DIFLUCAN 150 MG ORAL TABLET 214475 FLUCONAZOLE Inactive DIFLUCAN 150 MG ORAL TABLET Take one tablet today and repeat in 72 hours DIFLUCAN 150 MG ORAL TABLET 492712 FLUCONAZOLE Inactive IBUPROFEN 200 MG ORAL TABLET Take 3 tablets every 6hrs IBUPROFEN 200 MG ORAL TABLET 060325 IBUPROFEN Inactive ZITHROMAX Z-SANJANA 250 MG ORAL TABLET Take 2 tablets toda y and 1 each day till gone ZITHROMAX Z-SANJANA 250 MG ORAL TABLET 326327 A ZITHROMYCIN Inactive PROAIR HFA 108 (90 [...] bowels 3 REGLAN 10 MG ORAL TABLET 838267 METOCLOPRAMIDE HCL Inactive PREDNISONE 20 MG ORAL TABLET Take 2 tablets by mouth d aily for 2 days then 1 tablet daily for 2 days. PREDNISONE 20 MG ORAL T ABLET 024155 PREDNISONE Inactive ZYRTEC ALLERGY 10 MG ORAL CAPSULE 1qd ZYRTEC ALLERGY 10 MG ORAL CAPSULE CETIRIZINE HCL Inactive ZITHROMAX 250 MG ORAL TABLET 2 po today, then 1 po q days 2-5 20 12/24/14 ZITHROMAX 250 MG ORAL TABLET 753124 AZITHROMYCIN Mara ctive ZITHROMAX 250 MG ORAL TABLET two tablets now and one daily x 4 d ays ZITHROMAX 250 MG ORAL TABLET 429183 AZITHROMYCIN Mara ctive PREDNISONE 20 MG ORAL TABLET 2 PO qd x 2d, 1 PO qd x 2d, 1/2 PO qd x 2d PREDNISONE 20 MG ORAL TABLET 256703 PREDNISONE Inactive SIMVASTATIN 40 MG ORAL TABLET one tablet daily SIMVASTATIN 40 MG ORAL TABLET 402755 SIMVASTATIN Inactive BACTRIM DS 800-160 MG ORAL TABLET 1bid BACTRIM DS 800-160 MG ORAL TABLET 850094 SULFAMETHOXAZOLE-TRIMETHOPRIM Inactive ZITHROMAX 250 MG ORAL TABLET 2 po today, then 1 po q days 2-5 20 26/12/21 ZITHROMAX 250 MG ORAL TABLET 788628 AZITHROMYCIN Mara ctive ZITHROMAX 250 MG ORAL TABLET 2 po today, then 1 po q days 2-5 20 27/02/16 ZITHROMAX 250 MG ORAL TABLET 429286 AZITHROMYCIN [place] ctive ZITHROMAX 250 MG ORAL TABLET 2 po today, then 1 po q days 2-5 20 26/02/30 ZITHROMAX 250 MG ORAL TABLET 385378 AZITHROMYCIN [place] ctive ZITHROMAX 250 MG ORAL TABLET 2 po today, then 1 po q days 2-5 20 26/06/21 ZITHROMAX 250 MG ORAL TABLET 648623 AZITHROMYCIN [place] ctive ZITHROMAX 250 MG ORAL TABLET 2 po today, then 1 po q days 2-5 20 31/03/18 ZITHROMAX 250 MG ORAL TABLET 832383 AZITHROMYCIN [place] ctive ZITHROMAX Z-SANJANA 250 MG ORAL TABLET 2 today, then 1 daily for 4 d ays ZITHROMAX Z-SANJANA 250 MG ORAL TABLET 551211 AZITHROMYCIN Inactive AMOXICILLIN 500 MG ORAL CAPSULE Take 1 capsule by mout h three times a day X 10 days AMOXICILLIN 500 MG ORAL CAPSULE 244590 AMOX ICILLIN Inactive AMOXICILLIN-POT CLAVULANATE 875-125 MG ORAL TABLET 1 pill by mouth twice daily AMOXICILLIN-POT CLAVULANATE 875-125 MG ORAL TABL ET 323459 AMOXICILLIN-POT CLAVULANATE Inactive AUGMENTIN 875-125 MG ORAL TABLET Take one tablet twice a day with food AUGMENTIN 875-125 MG ORAL TABLET AMOXICILLIN-POT CLAVULANATE Inactive POLYTRIM 48053-5.1 UNIT/ML-% OPHTHALMIC SOLUTION 1 gtt to affected eye q3h x 7 days POLYTRIM 72488-9.1 UNIT/ML-% OPH THALMIC SOLUTION 224408 POLYMYXIN B-TRIMETHOPRIM Inactive MACROBID 100 MG ORAL CAPSULE 1 cap by mouth twice daily MACROBID 100 MG ORAL CAPSULE 0775215 NITROFURANTOIN MONOHYD MACRO In active Advance Directives [...] Fluarix, Agriflu(>= 18 yo)) Fluzone (>=3 yrs.) [[id number]] Seasonal influenza vaccine, injectable, containing preservative, for > 3 years old (Afluria, FluLaval, Fluzone, Fluvirin, Fluarix, Agriflu(>= 18 yo)) Fluzone (>3 yrs.) [[id number]] Seasonal influenza vaccine, injectable, containing preservative, for > 3 years old (Afluria, FluLaval, Fluzone, Fluvirin, Fluarix, Agriflu(>= 18 yo)) Fluarix (>3 yrs.) [[id number]] Diagnostic Results Date Name Value Unit Range Description Lab Report: CBC, Comp. Metabolic Panel, Lipid Panel, Magnesium - Chemistry sodium, serum 138 mmol/L [phone]/09/02 carbon dioxide, venous blood 28.0 mmol/L 21.0-32 [...] 0.20 mg/dL 0.00-1.00 cholesterol, serum 228 mg/dL [phone]/09/02 triglyceride, serum, fasting 236 mg/dL 30-200 HDL [...] 0.36-3.74 Encounters Code Encounter Date Provider Facility CPT-38027 [id number] Vst-Est Level III 17:07:11 CDT Jenyn Yang [facility] CPT-58457 [id number] Vst-Est Level III 17:51:44 WELDING MACHINE OPERATOR THERMIT [place] [facility] CPT-52710 Level 3 Est. Patient 11:09:39 CDT Viviana Rubio [facility] CPT-35052 [id number] Vst-Est Level IV 09:14:31 CDT Conchis Yang [facility] CPT-92669 72737-Hsh Vst-Est Level III 22:05:50 CDT Jenny Yang [facility] CPT-19347 Level 3 Est. Patient 15:00:02 WELDING MACHINE OPERATOR THERMIT Will jarquin [facility] CPT-95562 Level 2 Est. Patient 13:46:20 CDT Ashley peacock [facility] CPT-07989 Level 2 Est. Patient 13:45:36 CDT Ashley Meraz [facility] CPT-47606 Level 3 Est. Patient 15:52:07 CDT Ashley Meraz [facility] CPT-03449 Level 3 Est. Patient 08:20:37 CDT Ashley Meraz [facility] CPT-73525 Level 3 Est. Patient 15:06:41 CDT Derrick donaldson MD [facility] CPT-28206 Level 3 Est. Patient 11:13:21 WELDING MACHINE OPERATOR THERMIT Derrick donaldson MD [facility] CPT-51210 Level 3 Est. Patient 12:54:25 WELDING MACHINE OPERATOR THERMIT Ashley Meraz [facility] CPT-63553 Level 3 Est. Patient 23:34:49 WELDING MACHINE OPERATOR THERMIT Ashley Meraz [facility] CPT-14365 Level 3 Est. Patient 16:37:09 WELDING MACHINE OPERATOR THERMIT Ashley Meraz [facility] CPT-96524 Level 3 Est. Patient 11:59:30 WELDING MACHINE OPERATOR THERMIT Ashley Meraz [facility] CPT-57441 Level 4 Est. Patient 07:40:13 CDT Wayne delatorre [facility] CPT-46027 Level 4 Est. Patient 08:06:18 CDT Wayne delatorre [facility] CPT-35105 Level 3 Est. Patient 11:14:45 CDT Wayne delatorre [facility] CPT-00664 Level 3 Est. Patient 10:14:55 CDT Wayne delatorre [facility] CPT-54608 Level 4 Est. Patient 15:23:47 CDT Wayne delatorre [facility] CPT-35642 Level 3 Est. Patient 07:50:51 WELDING MACHINE OPERATOR THERMIT Wayne delatorre PA [facility] CPT-47203 Level 3 Est. Patient 14:47:52 CDT Wayne YANG [facility] CPT-26646 Level 3 Est. Patient 11:28:46 CDT Wayne delatorre [facility] CPT-22212 Level 4 Est. Patient 14:48:43 CDT Wayne delatorre [facility] CPT-33696 Level 3 Est. Patient 14:10:18 WELDING MACHINE OPERATOR THERMIT Wayne delatorre PA [facility] CPT-14382 Level 3 Est. Patient 16:44:33 WELDING MACHINE OPERATOR THERMIT Wayne delatorre [facility] CPT-32838 Level 4 Est. Patient 08:22:34 WELDING MACHINE OPERATOR THERMIT Wayne delatorre [facility] CPT-45274 Level 4 Est. Patient 07:10:30 CDT Wayne delatorre [facility] CPT-92195 Level 3 Est. Patient 14:50:20 WELDING MACHINE OPERATOR THERMIT Wayne delatorre [facility] CPT-21846 Level 3 Est. Patient 09:46:08 WELDING MACHINE OPERATOR THERMIT Zuleika cha APRN [facility] CPT-39457 Level 4 Est. Patient 07:56:24 WELDING MACHINE OPERATOR THERMIT Wayne delatorre [facility] CPT-79592 Level 3 Est. Patient 12:13:53 CDT Ismael Denton [facility] CPT-95467 Level 4 Est. Patient 12:28:51 WELDING MACHINE OPERATOR THERMIT Wayne delatorre [facility] CPT-40864 Level 3 Est. Patient 15:23:42 WELDING MACHINE OPERATOR THERMIT Wayne delatorre TREY [facility] CPT-86946 Level 3 Est. Patient 06:34:33 WELDING MACHINE OPERATOR THERMIT Wayne delatorre TREY [facility] Procedures Code Procedure Name Date Entry Date Standard Desc ription CPT-11235 Allergy Admin 2 16:06:08 CDT CPT-21377 Allergy Admin 2 16:51:42 CDT CPT-41498 Allergy Admin 2 16:26:50 CDT CPT-06645 Allergy Admin 2 17:02:53 CDT CPT-31592 Allergy Admin 2 16:32:35 CDT CPT-87866 Allergy Admin 2 16:26:27 CDT CPT-J3420 Vitamin B12 1000mcg (Cyanocobalamin) 16:32:13 CDT CPT-09306 Abx/Therapy Injection 16:32:13 CDT CPT-30458 Allergy Admin 2 16:32:12 CDT CPT-27191 Allergy Admin 2 16:05:03 CDT CPT-54032 Allergy Admin 2 16:35:15 CDT CPT-34811 Allergy Admin 2 16:20:41 CDT CPT-74766 Allergy Admin 2 11:25:21 CDT CPT-51754 Allergy Admin 2 15:46:12 CDT CPT-OZ3501K (4274F) Influenza immunization administe red or previously received 17:51:44 WELDING MACHINE OPERATOR THERMIT CPT-75299 Spec Collection and Handling Fee 10:45:[address] [id number]-[id number] (4274F) Influenza immunization administe red or previously received 10:20:17 CDT CPT-17663 Prv Med Est Pt 40-64yrs 16:26:57 CDT CPT-70030 Venipuncture Draw Fee 11:08:31 CDT CPT-67939 Magnesium - LAB USE ONLY 11:08:31 CDT 10/15 CPT-21033 TSH - LAB USE ONLY 11:08:31 CDT CPT-67330 Lipid - LAB USE ONLY 11:08:30 CDT 2 CPT-29123 CMP - LAB USE ONLY 11:08:30 CDT CPT-75499 CBC - LAB USE ONLY 11:08:30 CDT CPT-44936 Spec Collection and Handling Fee 16:14:51 C DT CPT-48585 UA w micro - LAB USE ONLY 16:14:51 CDT 2018 CPT-26969 Prv Med Est Pt 40-64yrs 08:34:49 CDT 10/01 CPT-56220 Sed Rate - LAB USE ONLY 10:50:49 CDT 10/02 CPT-49143 TSH - LAB USE ONLY 10:50:49 CDT CPT-76162 Lipid - LAB USE ONLY 10:50:49 CDT 0 CPT-02119 Magnesium - LAB USE ONLY 10:50:49 CDT 10/02 CPT-49458 CMP - LAB USE ONLY 10:50:49 CDT CPT-01845 CBC - LAB USE ONLY 10:50:49 CDT CPT-68964 Venipuncture Draw Fee 10:50:49 CDT CPT-44466 IV Hydration < or = 1 hr 22:05:50 CDT 04/16 CPT-J7030 Normal Saline 1000 mL 22:05:50 CDT CPT-58111 Abx/Therapy Injection 16:31:51 WELDING MACHINE OPERATOR THERMIT CPT-J2950 Phenergan 25 mg 16:31:51 WELDING MACHINE OPERATOR THERMIT CPT-41601 Abx/Therapy Injection 16:39:40 CDT CPT-11522 First Vx - Ix admin via ID I M or jet injects without counseling by physician 16:39:39 CDT CPT-62180 Prv Med Est Pt 40-64yrs 16:33:10 CDT 11/10 CPT-JTINJ Asp/Joint Injection 16:13:36 CDT CPT-17815 Allergy Admin 2 16:54:52 CDT CPT-02021 Allergy Admin 2 16:46:15 CDT CPT-16683 Allergy Admin 2 11:29:09 CDT CPT-50486 Allergy Admin 2 17:05:15 CDT CPT-08605 Allergy Admin 2 12:31:51 CDT CPT-41664 Allergy Admin 2 15:40:56 CDT CPT-86380 CBC - LAB USE ONLY 09:49:24 CDT CPT-18407 CMP - LAB USE ONLY 09:49:24 CDT CPT-25107 Lipid - LAB USE ONLY 09:49:24 CDT 8 CPT-46321 Venipuncture Draw Fee 09:49:24 CDT CPT-50153 Allergy Admin 2 10:46:11 CDT CPT-JTINJ Asp/Joint Injection 09:52:58 CDT CPT-89313 Skin tag rem 1-15 13:46:20 CDT CPT-05532 Knee, right, 3V - XRAY USE ONLY 13:07:09 CD T CPT-55895 Allergy Admin 2 11:56:38 CDT CPT-31120 Allergy Admin 2 12:00:55 CDT CPT-13844 Allergy Admin 2 16:42:13 CDT CPT-60089 Allergy Admin 2 16:27:55 T CPT-79493 Allergy Admin 2 13:24:26 T CPT-25234 Allergy Admin 2 17:17:57 [facility] CPT-21426 Allergy Admin 2 16:23:22 [facility] CPT-78652 Allergy Admin 2 16:26:55 [facility] CPT-44883 Allergy Admin 2 16:32:33 [facility] CPT-74218 Allergy Admin 2 17:43:40 [facility] CPT-59653 Allergy Admin 2 16:26:07 [facility] CPT-95223 Allergy Admin 2 12:31:50 [facility] CPT-06875 Allergy Admin 2 16:40:38 [facility] CPT-73610 Allergy Admin 2 17:07:36 T CPT-G0008 Administration of Influenza Virus Vaccine 17:01:01 CDT CPT-35169 First Vx - Ix admin via ID I M or jet injects without counseling by physician 17:01:01 CDT CPT-68070 Allergy Admin 2 12:06:54 CDT CPT-20221 Allergy Admin 2 17:04:46 CDT CPT-88500 Allergy Admin 2 16:34:48 CDT CPT-13120 Allergy Admin 2 17:04:51 CDT CPT-53703 Allergy Admin 2 16:25:14 CDT CPT-31685 Allergy Admin 2 10:52:02 CDT CPT-49564 Allergy Admin 2 11:45:31 CDT CPT-86481 Allergy Admin 2 12:02:20 CDT CPT-25475 Allergy Admin 2 15:47:29 CDT CPT-66466 Allergy Admin 2 13:25:44 CDT CPT-09068 Allergy Admin 2 10:51:13 CDT CPT-06183 CBC - LAB USE ONLY 10:44:39 CDT CPT-31383 CMP - LAB USE ONLY 10:44:39 CDT CPT-35266 Lipid - LAB USE ONLY 10:44:39 CDT 9 CPT-83610 Venipuncture Draw Fee 10:44:38 CDT CPT-81185 Allergy Admin 2 12:25:22 CDT CPT-64245 Allergy Admin 2 12:41:34 CDT CPT-02898 Allergy Admin 2 15:29:46 CDT CPT-67913 Allergy Admin 2 14:46:53 CDT CPT-09334 Allergy Admin 2 14:16:16 CDT CPT-75990 Allergy Admin 2 16:55:26 CDT CPT-33144 Allergy Admin 2 10:12:02 CDT CPT-80255 Allergy Admin 2 14:53:56 CDT CPT-86138 Allergy Admin 2 17:01:54 T CPT-65402 Allergy Admin 2 09:36:02 T CPT-18787 Allergy Admin 2 16:53:26 [facility] CPT-69451 Allergy Admin 2 16:59:41 [facility] CPT-60256 Allergy Admin 2 16:36:44 [facility] CPT-40683 Allergy Admin 2 16:17:16 [facility] CPT-31550 Allergy Admin 2 17:08:10 [facility] CPT-01268 Allergy Admin 2 12:16:08 [facility] CPT-58491 Allergy Admin 2 16:47:30 [facility] CPT-96637 Allergy Admin 2 16:59:44 [facility] CPT-36355 Allergy Admin 2 12:48:53 [facility] CPT-81055 Allergy Admin 2 10:19:48 [facility] CPT-95208 Allergy Admin 2 12:40:17 [facility] CPT-62568 Abx/Therapy Injection 17:21:59 [facility] CPT-89555 First Vx - Ix admin via ID I M or jet injects without counseling by physician 17:21:57 [facility] CPT-64493 Allergy Admin 2 17:20:12 [facility] CPT-00358 Allergy Admin 2 11:12:50 [facility] CPT-38209 Allergy Admin 2 17:02:39 CDT CPT-93566 BMP - LAB USE ONLY 10:33:02 CDT CPT-21650 CBC - LAB USE ONLY 10:33:02 CDT CPT-42889 Venipuncture Draw Fee 10:33:02 CDT CPT-25054 Abx/Therapy Injection 12:29:08 CDT CPT-70279 Allergy Admin 2 10:39:48 CDT CPT-57719 Allergy Admin 2 10:55:47 CDT CPT-PV Prev. Care Visit 10:10:00 CDT CPT-54734 Allergy Admin 2 11:31:20 CDT CPT-13696 Allergy Admin 2 16:53:45 CDT CPT-43328 Allergy Admin 2 16:36:42 CDT CPT-46987 Allergy Admin 2 16:30:19 CDT CPT-93539 Allergy Admin 2 15:39:35 CDT CPT-23692 Allergy Admin 2 17:51:32 CDT CPT-53543 Allergy Admin 2 11:50:50 CDT CPT-PV Prev. Care Visit 14:09:05 CDT CPT-34082 Allergy Admin 2 13:37:39 CDT CPT-97184 Abx/Therapy Injection 12:17:43 CDT CPT-80522 Venipuncture Draw Fee 10:39:55 CDT CPT-00409 Allergy Admin 2 12:04:53 CDT CPT-76761 Allergy Admin 2 10:04:39 CDT CPT-82949 Allergy Admin 2 12:15:35 CDT CPT-86953 Allergy Admin 2 17:04:36 CDT CPT-62067 Allergy Admin 2 16:25:49 CDT CPT-79656 Allergy Admin 2 17:30:06 CDT CPT-53464 Allergy Admin 2 10:11:48 CDT CPT-25922 Allergy Admin 2 17:06:13 CDT CPT-91749 Abx/Therapy Injection 12:23:07 CDT CPT-J0702 Celestone 12 mg (Betamethasone) 12:23:07 CD T CPT-49692 Venipuncture Draw Fee 10:26:42 CDT CPT-93408 Allergy Admin 2 12:10:01 CDT CPT-40211 Allergy Admin 2 15:13:57 WELDING MACHINE OPERATOR THERMIT CPT-37503 Allergy Admin 2 16:55:22 WELDING MACHINE OPERATOR THERMIT CPT-75112 Allergy Admin 2 10:13:46 WELDING MACHINE OPERATOR THERMIT CPT-88236 Venipuncture Draw Fee 10:06:08 WELDING MACHINE OPERATOR THERMIT CPT-21207 Allergy Admin 2 16:15:41 WELDING MACHINE OPERATOR THERMIT CPT-51674 Allergy Admin 2 16:40:21 WELDING MACHINE OPERATOR THERMIT CPT-52935 Allergy Admin 2 16:31:48 WELDING MACHINE OPERATOR THERMIT CPT-99576 Allergy Admin 2 16:38:26 WELDING MACHINE OPERATOR THERMIT CPT-89001 Allergy Admin 2 16:40:08 WELDING MACHINE OPERATOR THERMIT CPT-18971 Allergy Admin 2 08:34:27 WELDING MACHINE OPERATOR THERMIT CPT-12900 Allergy Admin 2 14:27:45 WELDING MACHINE OPERATOR THERMIT CPT-75309 Destruction bgn lsn up to 14 09:41:27 WELDING MACHINE OPERATOR THERMIT 2 CPT-89684 Allergy Admin 2 17:45:17 WELDING MACHINE OPERATOR THERMIT CPT-06821 Allergy Admin 2 14:59:03 WELDING MACHINE OPERATOR THERMIT CPT-78444 Allergy Admin 2 12:49:42 CDT CPT-41682 Administration single or combination vac cine inc oral 15:01:57 CDT CPT-04042 Fluzone Quadrivalent Intramuscular Suspe nsion 0.5 ML 15:01:57 CDT CPT-00806 Allergy Admin 2 15:07:08 CDT CPT-97802 Allergy Admin 2 15:39:01 CDT CPT-80606 Allergy Admin 2 17:40:11 CDT CPT-93502 Allergy Admin 2 16:07:08 CDT CPT-63672 Allergy Admin 2 16:08:07 CDT CPT-58489 Venipuncture Draw Fee 09:34:29 CDT CPT-92619 Allergy Admin 2 16:27:43 CDT CPT-22504 Allergy Admin 2 15:53:10 CDT CPT-86028 Allergy Admin 2 15:42:29 CDT CPT-25746 Allergy Admin 2 11:26:14 CDT CPT-37077 Allergy Admin 2 10:36:24 CDT CPT-40000 Allergy Admin 2 16:53:37 CDT CPT-72813 Allergy Admin 2 11:21:44 CDT CPT-57399 Allergy Admin 2 10:50:40 CDT CPT-30292 Allergy Admin 2 11:19:11 CDT CPT-44752 Venipuncture Draw Fee 11:12:25 CDT CPT-03133 Allergy Admin 2 11:14:51 CDT CPT-83005 Allergy Admin 2 16:53:11 CDT CPT-05410 Allergy Admin 2 11:45:56 CDT CPT-87133 Allergy Admin 2 12:51:39 CDT CPT-34374 Allergy Admin 2 12:08:56 CDT CPT-66036 Allergy Admin 2 15:29:45 CDT CPT-27491 Allergy Admin 2 16:34:01 CDT CPT-03325 Allergy Admin 2 16:36:46 CDT CPT-37108 Allergy Admin 2 15:19:16 CDT CPT-35416 Allergy Admin 2 16:13:25 CDT CPT-86744 Allergy Admin 2 17:06:17 CDT CPT-58822 Allergy Admin 2 10:42:10 WELDING MACHINE OPERATOR THERMIT CPT-87656 Allergy Admin 2 17:33:16 WELDING MACHINE OPERATOR THERMIT CPT-00585 Allergy Admin 2 10:53:30 WELDING MACHINE OPERATOR THERMIT CPT-38949 Allergy Admin 2 14:18:24 WELDING MACHINE OPERATOR THERMIT CPT-96813 Allergy Admin 2 10:18:29 WELDING MACHINE OPERATOR THERMIT CPT-63967 Allergy Admin 2 12:57:40 WELDING MACHINE OPERATOR THERMIT CPT-42657 Allergy Admin 2 16:53:33 WELDING MACHINE OPERATOR THERMIT CPT-49099 Allergy Admin 2 12:43:00 WELDING MACHINE OPERATOR THERMIT CPT-15866 Allergy Admin 2 13:14:09 WELDING MACHINE OPERATOR THERMIT CPT-93953 Pneumovax 23 Injection Injectable 25 MCG /0.5ML 09:51:29 WELDING MACHINE OPERATOR THERMIT CPT-G0009 Administration of Pneumococcal Vaccine 09:51:29 WELDING MACHINE OPERATOR THERMIT CPT-85800 Influenza split virus > age 3 09:51:29 WELDING MACHINE OPERATOR THERMIT CPT-G0008 Administration of Influenza Virus Vaccine 02/23 09:51:29 WELDING MACHINE OPERATOR THERMIT CPT-66183 Venipuncture Draw Fee 10:31:06 CDT CPT-J0702 Celestone 12 mg (Betamethasone) 11:34:17 CD T CPT-62376 Abx/Therapy Injection 11:34:17 CDT CPT-72174 Chest 2V Frontal and Lat 11:31:47 CDT 07/04 CPT-15875 Venipuncture Draw Fee 11:31:47 CDT CPT-41177 Allergy Admin 2 14:31:05 CDT CPT-72495 EKG Trac and Interp 08:42:32 CDT CPT-77702 Chest 2V Frontal and Lat 08:42:32 CDT 05/28 CPT-73439 Venipuncture Draw Fee 08:39:02 CDT CPT-08984 Allergy Admin 2 16:59:09 CDT CPT-10040 Allergy Admin 2 17:06:11 CDT CPT-74543 Allergy Admin 2 16:04:36 CDT CPT-47348 Venipuncture Draw Fee 16:32:44 WELDING MACHINE OPERATOR THERMIT CPT-31878 Venipuncture Draw Fee 10:54:37 WELDING MACHINE OPERATOR THERMIT CPT-83719 Allergy Admin 2 14:53:55 WELDING MACHINE OPERATOR THERMIT CPT-55550 Allergy Admin 2 10:23:58 WELDING MACHINE OPERATOR THERMIT CPT-72906 First Vx Component - Ix admi n via ID IM or jet inj without physician counseling 15:34:26 WELDING MACHINE OPERATOR THERMIT CPT-45887 Fluzone (>=3 yrs.) 15:34:26 WELDING MACHINE OPERATOR THERMIT CPT-38288 Allergy Admin 2 15:56:02 WELDING MACHINE OPERATOR THERMIT CPT-26059 Allergy Admin 2 11:08:58 WELDING MACHINE OPERATOR THERMIT CPT-08152 Allergy Admin 2 10:51:36 WELDING MACHINE OPERATOR THERMIT CPT-04467 Allergy Admin 2 15:38:19 WELDING MACHINE OPERATOR THERMIT CPT-75217 Allergy Admin 2 15:12:46 CDT CPT-07875 Allergy Admin 2 10:28:50 CDT CPT-80753 Allergy Admin 2 16:35:33 CDT CPT-60566 Allergy Admin 2 10:14:18 CDT CPT-85920 Abx/Therapy Injection 09:06:45 CDT CPT-J0702 Celestone 6 mg (Betamethasone) 09:06:45 CDT CPT-67680 Allergy Admin 2 15:51:15 CDT CPT-31383 Allergy Admin 2 10:40:16 CDT CPT-81097 Allergy Admin 2 16:35:55 CDT CPT-90814 Allergy Admin 2 13:12:52 CDT CPT-66114 Allergy Admin 2 16:06:50 CDT CPT-51819 Allergy Admin 2 11:04:24 CDT CPT-34477 Allergy Admin 2 10:44:50 CDT CPT-55139 Allergy Admin 2 15:13:40 CDT CPT-70506 Allergy Admin 2 15:00:03 CDT CPT-57542 Allergy Admin 2 10:37:38 CDT CPT-73989 Venipuncture Draw Fee 09:16:43 WELDING MACHINE OPERATOR THERMIT CPT-39424 Allergy Admin 2 11:15:59 WELDING MACHINE OPERATOR THERMIT CPT-80773 Postop F/U Visit 10:10:52 WELDING MACHINE OPERATOR THERMIT CPT-00275 Allergy Admin 2 13:05:05 WELDING MACHINE OPERATOR THERMIT CPT-71856 Postop F/U Visit 19:45:16 WELDING MACHINE OPERATOR THERMIT CPT-64326 Allergy Admin 2 11:52:35 WELDING MACHINE OPERATOR THERMIT CPT-81231 Allergy Admin 2 10:49:22 WELDING MACHINE OPERATOR THERMIT CPT-OV Office Visit 13:55:55 WELDING MACHINE OPERATOR THERMIT CPT-72563 Allergy Admin 2 12:54:28 WELDING MACHINE OPERATOR THERMIT CPT-OV Office Visit 14:04:48 WELDING MACHINE OPERATOR THERMIT CPT-81917 Venipuncture Draw Fee 10:29:14 WELDING MACHINE OPERATOR THERMIT CPT-90356 Allergy Admin 2 11:24:43 WELDING MACHINE OPERATOR THERMIT CPT-04478 Knee 3V 11:00:12 WELDING MACHINE OPERATOR THERMIT CPT-84292 C-Spine Min 4V 11:00:12 WELDING MACHINE OPERATOR THERMIT CPT-84823 Allergy Admin 2 13:38:40 WELDING MACHINE OPERATOR THERMIT CPT-41253 Venipuncture Draw Fee 11:33:37 CDT CPT-95789 Allergy Admin 2 15:34:37 CDT CPT-20320 Allergy Admin 2 14:11:42 CDT CPT-92683 Administration single or combination vac cine inc oral 12:51:42 CDT CPT-79453 Influenza split virus > age 3 12:51:42 CDT CPT-24427 Allergy Admin 2 11:58:43 CDT CPT-52240 Allergy Admin 2 11:29:32 CDT CPT-61009 Allergy Admin 2 10:55:19 CDT CPT-40380 Allergy Admin 2 12:38:54 CDT CPT-68835 Allergy Admin 2 13:01:47 CDT CPT-06917 Abx/Therapy Injection 12:41:18 CDT CPT-J0702 Celestone 12 mg (Betamethasone) 12:41:18 CD T CPT-36715 Abx/Therapy Injection 16:33:09 CDT CPT-J0702 Celestone 12 mg (Betamethasone) 16:33:09 CD T CPT-84024 Allergy Admin 2 15:49:09 CDT CPT-21993 Allergy Admin 2 12:08:56 CDT CPT-52936 Allergy Admin 2 12:19:10 CDT CPT-98156 Allergy Admin 2 12:46:56 CDT CPT-02147 Allergy Admin 2 15:05:13 CDT CPT-47215 Allergy Admin 2 15:36:20 CDT CPT-18916 Allergy Admin 2 09:58:47 WELDING MACHINE OPERATOR THERMIT CPT-52454 Allergy Admin 2 12:18:06 WELDING MACHINE OPERATOR THERMIT CPT-55715 Allergy Admin 2 10:01:48 WELDING MACHINE OPERATOR THERMIT CPT-89180 Allergy Admin 2 12:17:53 WELDING MACHINE OPERATOR THERMIT CPT-88881 Allergy Admin 2 10:06:44 WELDING MACHINE OPERATOR THERMIT CPT-09635 Allergy Admin 2 10:13:04 WELDING MACHINE OPERATOR THERMIT CPT-45174 Venipuncture Draw Fee 10:09:07 WELDING MACHINE OPERATOR THERMIT CPT-57654 Bone Density 12:24:51 WELDING MACHINE OPERATOR THERMIT CPT-21887 Allergy Admin 2 11:29:41 WELDING MACHINE OPERATOR THERMIT CPT-59061 Allergy Admin 2 16:07:15 WELDING MACHINE OPERATOR THERMIT CPT-36105 Breathing Treatment 06:34:33 WELDING MACHINE OPERATOR THERMIT CPT-J0702 Celestone 12 mg (Betamethasone) 06:34:33 CS T CPT-10011 Abx/Therapy Injection 06:34:33 WELDING MACHINE OPERATOR THERMIT CPT-89566 Breathing Tx 11:07:33 WELDING MACHINE OPERATOR THERMIT CPT-27894 Allergy Admin 2 10:02:33 CDT CPT-03141 Allergy Admin 2 10:02:33 CDT CPT-55365 Allergy Admin 2 15:26:19 CDT CPT-62773 Administration single or combination vac cine inc oral 15:41:12 CDT CPT-08820 Influenza split virus > age 3 15:41:12 CDT
--- OUTSIDE RECORDS SUMMARY | 2020-09-15 14:36 | XMS REPORT | Clinical Summary ---
[...] Yang APRN Pruritus vulvae Active Ashley Yokum MANAGER CONSUMER Screening mammogram V76.12 Resolved Ashley Yokum A PRN Other screening mammogram Sinusitis, acute maxillary 461.0 Inactive 7 Ashley Yokum MANAGER CONSUMER Acute maxillary sinusitis Diarrhea, acute 787.91 Resolved Ashley Yokum MANAGER CONSUMER Diarrhea Vaginal candidiasis 112.1 Resolved Ashley Yokum A PRN Candidiasis of vulva and vagina Accidental fall E888.9 Resolved Ashley Yokum MANAGER CONSUMER Unspecified fall Contusion of left hand, initial encounter 923.20 Resol burak Ashley Yokum MANAGER CONSUMER Contusion of hand(s) Contusion of right upper arm, subsequent encounter V58.89 201 09/14/21 Resolved Ashley Yokum MANAGER CONSUMER Encounter for other specified a ftercare Ganglion cyst of left wrist 727.41 Active Derrick Younger MD Ganglion of joint Body Mass Index 31.0-31.9 Adult Resolved 2017 Ashley Yokum MANAGER CONSUMER Body Mass Index 31.0-31.9, adult Plantar fasciitis 728.71 Active Ashley Yokum MANAGER CONSUMER Plantar fascial fibromatosis Bronchitis, acute 466.0 Inactive Ashley Yokum APR N Acute bronchitis Body Mass Index 30.0-30.9 Adult Resolved 2017 Ashley Yokum MANAGER CONSUMER Body Mass Index 30.0-30.9, adult Allergic conjunctivitis, bilateral 372.14 Resolved 2 Ashley Yokum MANAGER CONSUMER Other chronic allergic conjunctivitis Skin tags; irritated/inflammed 701.9 Resolved 11/10 Ashley Yokum MANAGER CONSUMER Unspecified hypertrophic and atrophic co nditions of skin Body Mass Index 31.0-31.9 Adult Refinement 2017 Ashley Yokum MANAGER CONSUMER Body Mass Index 31.0-31.9, adult BMI 30-30.9 Refinement Ashley Yokum MANAGER CONSUMER Body Mass Index 31.0-31.9, adult BMI 31-31.9 Refinement Ashley Yokum MANAGER CONSUMER Body Mass Index 31.0-31.9, adult BMI 32-32.9 Refinement Lois Faith RN Body Mass Index 31.0-31.9, adult BMI 31-31.9 Active Viviana Rubio APRN-Julieta Body Mass Index 31.0-31.9, adult Major depression, recurrent, moderate 296.32 Active Ashley Yokum MANAGER CONSUMER Major depressive disorder, recurrent epi sode, moderate degree Obesity Class I (BMI 30-34.9) Active Ashley Y okum MANAGER CONSUMER Obesity, unspecified Nausea and vomiting 787.01 Resolved Ashley Yokum A PRN Nausea with vomiting Gastroenteritis acute 558.9 Resolved Ashley Yokum MANAGER CONSUMER Other and unspecified noninfectious gastroenteritis and colitis GERD 530.81 Active Ashley Yokum MANAGER CONSUMER E sophageal reflux Joint pain 719.40 Resolved Ashley Yokum MANAGER CONSUMER Pain in joint, site unspecified Preventive health care, adult V70.0 Inactive / Ashley Yokum MANAGER CONSUMER Routine general medical examination at a health care facility Blood in urine 599.70 Resolved Ashley Yokum MANAGER CONSUMER Hematuria, unspecified Other abnormal findings in urine Resolved Ashley Yokum MANAGER CONSUMER Urinary tract infection 599.0 Inactive Ashley Yok um MANAGER CONSUMER Urinary tract infection, site not specified Chafing of skin 709.8 Resolved Ashely Yokum MANAGER CONSUMER Other specified disorders of skin Preventive care V70.0 Active Supriya Betzaida A Routine general medical examination at a health care facility Gynecological examination, routine V72.3 Inactive 2 Ashley Yokum MANAGER CONSUMER Special investigations and e xaminations - Gynecological examination Near syncope 780.2 Resolved Ashley Yokum MANAGER CONSUMER Syncope and collapse Lightheadedness 780.4 Resolved Ashley Yokum MANAGER CONSUMER Dizziness and giddiness Headache 784.0 Resolved Ashley Yokum MANAGER CONSUMER Headache Sore throat 462 Resolved Ashley Yokum MANAGER CONSUMER Acute pharyngitis Sinusitis - acute 461.9 Resolved Ashley Yokum APR N Acute sinusitis, unspecified Tired all the time 780.79 Resolved Ashley Yokum AP RN Other malaise and fatigue Fatigue 780.79 Inactive Ashley Yokum MANAGER CONSUMER Other malaise and fatigue Preoperative examination V72.84 Active Ashley Yoелена um MANAGER CONSUMER Preoperative examination, unspecified Skin lesion 709.9 Active Ashley Yokum MANAGER CONSUMER Unspecified disorder of skin and subcutaneous tissue ABNORMAL WEIGHT GAIN ICD-783.1 Inactive Wayne paul PA ALLERGIC RHINITIS ICD-477.9 Inactive Lois mendieta MANAGER CONSUMER SINUSITIS ICD-473.9 Inactive Lois Leos MANAGER CONSUMER 2012 WHEEZING ICD-786.07 Inactive Lois Leos MANAGER CONSUMER 2012 UPPER RESPIRATORY INFECTION, ACUTE ICD-465.9 I nactive Lois Leos MANAGER CONSUMER NEED FOR DESENSITIZATION TO ALLERGENS ICD-V07.1 8 Inactive Ashley Yang MANAGER CONSUMER OBESITY ICD-278.00 Inactive Wayne Harms PA CONTACT DERMATITIS DUE TO POISON ARANZA ICD-692.6 Inactive Lois Leos MANAGER CONSUMER NEED PROPHYLACTIC VACCINATION&INOCULATION FLU ICD-V04.81 Inactive Awyne Harms PA GERD ICD-530.81 Inactive Lois Leos MANAGER CONSUMER 03/22 LONG-TERM (CURRENT) USE OF OTHER MEDICATIONS ICD-V58.69 6 Inactive Wayne Harms PA NECK PAIN ICD-723.1 Inactive Wayne Harms PA 06/15 DEGENERATIVE DISC DISEASE, CERVICAL SPINE ICD-722.4 Inactive Wayne Harms PA SKIN TAG ICD-701.9 Inactive Wayne Harms PA G E R D ICD-530.81 Inactive Lois Leos MANAGER CONSUMER CANDIDIASIS OF SKIN AND NAILS ICD-112.3 Inacti ve Wayne Harms PA AFTERCARE FOLLOW SURGERY MUSCULOSKEL SYSTEM NEC ICD-V58.78 Inactive Wayne Harms PA PHARYNGITIS ICD-462 Inactive Wayne Harms PA 05/03 OTHER SCREENING MAMMOGRAM ICD-V76.12 Inactive Wayne Harms PA DYSPAREUNIA, MILD ICD-625.0 Inactive Wayne Harm s PA CONTACT DERMATITIS DUE TO POISON ARANZA ICD-692.6 Inactive Wayne Harms PA Sinusitis, chronic ICD-473.9 Inactive Ashley Yo yoni MANAGER CONSUMER Myalgia ICD-729.1 Inactive Wayne Harms PA Rheumatoid [...] PA Runny nose ICD-472.0 Inactive Ashley Yokum MANAGER CONSUMER Influenza like illness ICD-487.1 Inactive Wayne Moon PA Acute maxillary sinusitis ICD-461.0 Inactive Ashley Yokum MANAGER CONSUMER Preventive health care ICD-V70.0 Inactive Ka thi Yokum MANAGER CONSUMER Well women exam ICD-V72.3 Inactive Ashley Yokum MANAGER CONSUMER Screening mammogram ICD-V76.12 Inactive Ashley Yokum MANAGER CONSUMER Sinusitis, acute maxillary ICD-461.0 Inactive Ashley Yokum MANAGER CONSUMER Diarrhea, acute ICD-787.91 Inactive Ashley Yoku m MANAGER CONSUMER Vaginal candidiasis ICD-112.1 Inactive Ashley Y abdonum MANAGER CONSUMER Accidental fall ICD-E888.9 Inactive Ashley Yoku m MANAGER CONSUMER Contusion of left hand, initial encounter ICD-923.20 Inactive Ashley Yokum MANAGER CONSUMER Contusion of right upper arm, subsequent encounter ICD-V58.89 Inactive Ashley Yokum MANAGER CONSUMER Body Mass Index 31.0-31.9 Adult Inac tive Ashley Yokum MANAGER CONSUMER Bronchitis, acute ICD-466.0 Inactive Ashley Yok um MANAGER CONSUMER Body Mass Index 30.0-30.9 Adult Inac tive Ashley Yokum MANAGER CONSUMER Allergic conjunctivitis, bilateral ICD-372.14 I nactive Ashley Yokum MANAGER CONSUMER Skin tags; irritated/inflammed ICD-701.9 Inact rancho Ashley Yokum MANAGER CONSUMER Nausea and vomiting ICD-787.01 Inactive Ashley Yokum MANAGER CONSUMER Gastroenteritis acute ICD-558.9 Inactive Conchis hi Yokum MANAGER CONSUMER Joint pain ICD-719.40 Inactive Ashley Yokum APR N Preventive health care, adult ICD-V70.0 Inacti ve Ashley Yokum MANAGER CONSUMER Blood in urine ICD-599.70 Inactive Aslhey Yokum MANAGER CONSUMER Other abnormal findings in urine [place] ctive Ashley Yokum MANAGER CONSUMER Urinary tract infection ICD-599.0 Inactive K athi Yokum MANAGER CONSUMER Chafing of skin ICD-709.8 Inactive Ashley Yokum MANAGER CONSUMER Gynecological examination, routine ICD-V72.3 I nactive Ashley Yokum MANAGER CONSUMER Near syncope ICD-780.2 Inactive Ashley Yokum AP RN Lightheadedness ICD-780.4 Inactive Ashley Yokum MANAGER CONSUMER Headache ICD-784.0 Inactive Ashley Yokum MANAGER CONSUMER 2020 Sore throat ICD-462 Inactive Ashley Yang MANAGER CONSUMER 202 02/17/17 Sinusitis - acute ICD-461.9 Inactive Ashley peacock MANAGER CONSUMER Tired all the time ICD-780.79 Inactive Ashley gutierrez MANAGER CONSUMER Fatigue ICD-780.79 Inactive Ashley Yang MANAGER CONSUMER 2020 Medication List Medication Instructions Start Date Stop Date Generic Name NDC Status Provider Patient Instruction PHENTERMINE HCL 37.5 MG TABS 1 TAB IN MORING. TAKE 30 MIN BEFORE BREAKFAST OR 2 HRS AFTER BREAKFAST PHENTERMINE HCL 06246055163 Active Ashley Yang APRN Active ADK [id number] UNIT-MCG ORAL CAPSULE 1 daily 2 VITAMINS A D K 04375222228 No Longer Active Ashley Yang APRN Active EQ LORATADINE 10 MG ORAL TABLET TAKE 1 TABLET BY MOUTH ONCE DAILY NEEDED FOR ALLERGIES LORATADINE 81293917903 Active Shanelle Nicole RN Active ALPRAZOLAM 0.25 MG TABS TAKE 1 TO 2 TABLETS BY MOUTH THREE TIMES DAILY NEEDED ALPRAZOLAM 55877504954 Active Shanelle Nicole RN Active MUCINEX D 60-600 MG ORAL TABLET EXTENDED RELEASE 12 HO UR 1 po BID PRN Congestion PSEUDOEPHEDRINE-GUAIFENESIN 26355175521 Active Ashley Yang APRN Active ZYRTEC ALLERGY 10 MG ORAL CAPSULE 1qd CETIR IZINE HCL 27788806252 No Longer Active Ashley Yang APRN Active HAIR, SKIN, NAILS VITAMINS take 1 tab by mouth 2x a day HAIR, SKIN, NAILS VITAMINS Active Ashley Merazum MANAGER CONSUMER Active CENTRUM SILVER FOR WOMEN OVER 50 1 tab by mouth by day. CENTRUM SILVER FOR WOMEN OVER 50 Active Ashley Yang APRN Active VITAMIN D3 1000 UNIT ORAL CAPSULE 1 po qd CH OLECALCIFEROL 23777707919 Active Ashley Yang MANAGER CONSUMER Active PREDNISONE 20 MG ORAL TABLET Take 2 tablets by mouth d aily for 2 days then 1 tablet daily for 2 days. PREDNISONE 00082280217 No Longer Active Ashleykaleigh Yang MANAGER CONSUMER Active MELOXICAM 15 MG ORAL TABLET TAKE 1 TABLET BY MOUTH IN THE MORNING 2 MELOXICAM 98112691566 Active Shanelle Rivera RN Active SIMVASTATIN 40 MG ORAL TABLET TAKE 1 TABLET BY MOUTH ONCE DA JAVON AT BEDTIME SIMVASTATIN 23696281069 Active LARRY Murillo Active [id number] ORAL TABLET MULT IPLE MINERALS 93451364289 Active Lois Faith RN Active SERTRALINE HCL 100 MG ORAL TABLET Take 1 tablet by mouth once da javon SERTRALINE HCL 47742743314 Active LARRY Murillo A ctive REGLAN 10 MG ORAL TABLET 1 po qid for bowels 3 METOCLOPRAMIDE HCL 66458616015 No Longer Active Ashley Yang ELAINA A ctive B-12 2500 MCG ORAL TABLET 1 daily CYANOCOBAL HUNT 18655670227 No Longer Active Ashley Yang ELAINA Active ESTRADIOL 2 MG TABS Take 1 tablet by mouth once daily ESTRADIOL 70934169531 Active hSanelle Rivera RN Active MACROBID 100 MG ORAL CAPSULE 1 cap by mouth twice daily NITROFURANTOIN MONOHYD MACRO 36581565679 No Longer Active Ashley Yang MANAGER CONSUMER Active FISH OIL + D3 9361-9161 MG-UNIT ORAL CAPSULE 1 dailly 4 FISH OIL-CHOLECALCIFEROL 58844969894 Active Ashleykaleigh Merazum MANAGER CONSUMER Acti ve PROAIR HFA 108 (90 BASE) MCG/ACT INHALATION AEROSOL SO LUTION 2 puffs four times a day as needed ALBUTEROL SULFATE 69274943040 No Long er Active Ashleykaleigh Merazum MANAGER CONSUMER Active ZITHROMAX Z-SANJANA 250 MG ORAL TABLET Take 2 tablets toda y and 1 each day till gone AZITHROMYCIN 99252132873 No Longer Active Ashley Yokum MANAGER CONSUMER Active POLYTRIM 94107-3.1 UNIT/ML-% OPHTHALMIC SOLUTION 1 gtt to affected eye q3h x 7 days POLYMYXIN B-TRIMETHOPRIM 90357476088 No Longer Active Ashley Yokum MANAGER CONSUMER Active IBUPROFEN 200 MG ORAL TABLET Take 3 tablets every 6hrs 201 09/17/15 IBUPROFEN 58896097786 No Longer Active Ashley Yokum MANAGER CONSUMER Active DIFLUCAN 150 MG ORAL TABLET Take one tablet today and repeat in 72 hours FLUCONAZOLE 49865722075 No Longer Active Derrick cardenas MD Active DIFLUCAN 150 MG ORAL TABLET 1 by mouth for yeast 03/03 FLUCONAZOLE 16256289576 No Longer Active Ashley Yokum MANAGER CONSUMER Active AUGMENTIN 875-125 MG ORAL TABLET Take one tablet twice a day with food AMOXICILLIN-POT CLAVULANATE 68991617085 No Longer Act rancho Ashley Yokum MANAGER CONSUMER Active CALCIUM 600 + D 600-200 MG-UNIT ORAL TABLET Take one daily CALCIUM CARB-CHOLECALCIFEROL 52754821530 No Longer Active Ashley Yokum MANAGER CONSUMER Active FLONASE 50 MCG/ACT NASAL SUSPENSION 1 spray each nostr il twice daily for allergies and runny nose FLUTICASONE PROPIONATE 61590682118 No Longer Active Ashley Yokum MANAGER CONSUMER Active CLARITIN-D 12 HOUR 5-120 MG ORAL TABLET EXTENDED RELEA SE 12 HOUR Take one tablet BID as needed for allergies LORATADINE-PSEUDOEP HEDRINE 78759376126 No Longer Active Beth Naff PIANO REGULATOR Active AMOXICILLIN-POT CLAVULANATE 875-125 MG ORAL TABLET 1 pill by mouth twice daily AMOXICILLIN-POT CLAVULANATE 80492760698 No Longer Act rancho Ashley Yokum MANAGER CONSUMER Active AMOXICILLIN 500 MG ORAL CAPSULE Take 1 capsule by mout h three times a day X 10 days AMOXICILLIN 45243731354 No Longer Active Wayne H arms PA Active PROBIOTIC DAILY ORAL CAPSULE Take one daily PROBIO TIC PRODUCT 27472936788 Active Wayne Harms PA Active TYLENOL 325 MG ORAL TABLET Take 2 every 6hrs prn A CETAMINOPHEN 75834067326 Active Wayne Harms PA Active ACETAMINOPHEN 500 MG ORAL TABLET prn RICH TAMINOPHEN 89037621690 No Longer Active Wayne Harms PA Active CLARITIN-D 12 HOUR 5-120 MG ORAL TABLET EXTENDED RELEA SE 12 HOUR Take one tablet bid LORATADINE-PSEUDOEPHEDRINE 06678199950 No Longe r Active Wayne Harms PA Active MOBIC 15 MG ORAL TABLET 1 tablet by mouth daily in am with PPI 2 MELOXICAM 41525204790 No Longer Active Wayne Harms PA Acti ve HYDROCORTISONE 2.5 % EXTERNAL CREAM Apply three times a day to affected area HYDROCORTISONE 33949145872 No Longer Active Wyane Harms PA Active VITAMIN D3 1000 UNIT ORAL TABLET Take two daily CHOLECALCIFEROL 70755172677 No Longer Active Wayne Harms PA Active PROBIOTIC ORAL CAPSULE Take one daily PROBIOTIC PRODUCT 24304352267 No Longer Active Wayne Harms PA Active GREEN TEA SLIM ORAL TABLET Take one daily MISC NATURAL PRODUCTS 83644172419 No Longer Active Wayne Harms PA Active BENZONATATE 200 MG ORAL CAPSULE Take one capsule three times a d ay BENZONATATE 89849143164 No Longer Active Wayne Harms PA Act rancho ZITHROMAX Z-SANJANA 250 MG ORAL TABLET 2 today, then 1 daily for 4 d ays AZITHROMYCIN 09529554162 No Longer Active Wayne Harms PA Ac tive ZITHROMAX 250 MG ORAL TABLET 2 po today, then 1 po q days 2-5 20 31/03/18 AZITHROMYCIN 61564659409 No Longer Active Beth Turner PIANO REGULATOR Active OMEPRAZOLE 20 MG ORAL CAPSULE DELAYED RELEASE 1 tablet by mo njh daily OMEPRAZOLE 90391509547 Active Supriya Huston RMA Active ZITHROMAX Z-SANJANA 250 MG ORAL TABLET 2x1day,0e9cvug 2014 AZITHROMYCIN 89276075554 No Longer Active Wayne Harms PA Active FISH OIL 1200 MG ORAL CAPSULE One daily prn OME GA-3 FATTY ACIDS 62149093206 No Longer Active Wayne Harms PA Active CEPHALEXIN 250 MG ORAL CAPSULE Take one tablet qid 201 05/25/29 CEPHALEXIN 40150456844 No Longer Active Wayne Harms PA Active VITAMIN D3 1000 UNIT ORAL TABLET 1qd CHOLEC ALCIFEROL 89560812774 No Longer Active Wayne Harms PA Active B-12 2000 MCG ORAL TABLET 1qd CYANOCOBALAMI N 06151289828 No Longer Active Wayne Harms PA Active ACIPHEX 20 MG ORAL TABLET DELAYED RELEASE 1qd 10/28 RABEPRAZOLE SODIUM 05677430329 No Longer Active Wayne Harms PA Active HYDROCORTISONE 2.5 % EXTERNAL CREAM apply 3-4 times a day to affected area HYDROCORTISONE 81912197493 No Longer Active Wayne Harms PA Active MUCINEX 600 MG ORAL TABLET EXTENDED RELEASE 12 HOUR 2qd GUAIFENESIN 32960932554 No Longer Active Wayne Harms PA Active TUSSIONEX PENNKINETIC ER 10-8 MG/5ML ORAL SUSPENSION E XTENDED RELEASE 5ml po q12hr PRN Cough HYDROCOD POLST-CHLORPHEN POLST 5 0194514861 No Longer Active Wayne Harms PA Active ZITHROMAX 250 MG ORAL TABLET 2 po today, then 1 po q days 2-5 20 26/06/21 AZITHROMYCIN 35738774863 No Longer Active Wayne Harms PA Ac tive CLARITIN 10 MG ORAL TABLET one tablet daily THEO ATADINE 41186198903 No Longer Active Wayne Harms PA Active FLAGYL 500 MG ORAL TABLET 1 tablet by mouth three times daily 20 28/05/03 METRONIDAZOLE 69567573898 No Longer Active Wayne Harms PA A ctive CHERATUSSIN AC 100-10 MG/5ML ORAL SYRUP one teaspoon qid. 9 GUAIFENESIN-CODEINE 99659856695 No Longer Active Wayne Harms PA Act rancho VITAMIN D 1000 UNIT ORAL TABLET 1qd CHOLECA LCIFEROL 24512418967 No Longer Active Wayne Harms PA Active CYMBALTA 60 MG ORAL CAPSULE DELAYED RELEASE PARTICLES 1 cap by mouth daily DULOXETINE HCL 38727748327 No Longer Active Wayne Harms PA Active AMOXICILLIN 500 MG ORAL CAPSULE 2 caps tid for 10days AMOXICILLIN 18684572745 No Longer Active Wayne Harms PA Active CALCIUM + D 600-200 MG-UNIT TABS Take one by mouth daily CALCIUM CARBONATE-VITAMIN D 00947857742 No Longer Active Wayne Harms PA Active CENTRUM SILVER ADULT 50+ ORAL TABLET 1qd 2013 MULTIPLE VITAMINS-MINERALS 40387531063 No Longer Active Wayne Harms PA Active VENLAFAXINE HCL 75 MG ORAL TABLET 1tid VE NLAFAXINE HCL 89502385975 No Longer Active Wayne Harms PA Active CLARITIN 10 MG ORAL TABLET 1 tablet by mouth daily as needed for allergies LORATADINE 49174721443 No Longer Active Wayne Harms PA Acti ve HYDROCORTISONE 2.5 % EXTERNAL CREAM Apply four times a day to af fected area HYDROCORTISONE 83307392054 No Longer Active Wayne Harms PA Active ZITHROMAX 250 MG ORAL TABLET 2 po today, then 1 po q days 2-5 20 26/02/30 AZITHROMYCIN 94190688343 No Longer Active Wayne Harms PA Ac tive ZITHROMAX 250 MG ORAL TABLET 2 po today, then 1 po q days 2-5 20 27/02/16 AZITHROMYCIN 45099743404 No Longer Active Wayne Harms PA Ac tive CYMBALTA 30 MG ORAL CAPSULE DELAYED RELEASE PARTICLES 3 caps daily DULOXETINE HCL 36112157960 No Longer Active Wayne Harms PA Active CYMBALTA 60 MG ORAL CAPSULE DELAYED RELEASE PARTICLES one tablet daily, takes 30mg. with 60mg. to make 90 mg. DULOXETINE HCL 53497582402 No Longer Active Wayne Harms PA Active CYMBALTA 30 MG ORAL CAPSULE DELAYED RELEASE PARTICLES 1 daily wi th 60mg DULOXETINE HCL 20202608573 No Longer Active Wayne Harms PA Active ZITHROMAX 250 MG ORAL TABLET 2 po today, then 1 po q days 2-5 20 26/12/21 AZITHROMYCIN 42382826321 No Longer Active Ismael YANG Active PREDNISONE 20 MG ORAL TABLET 3tab x 2days,2tab x 2days ,1tab x 2days,1/2tab x 2days PREDNISONE 03662935364 No Longer Active Wayne Vera jarvis YNAG Active PREMARIN 0.625 MG ORAL TABLET Take one by mouth daily ESTROGENS CONJUGATED 77452196685 No Longer Active Wayne Harms PA Active ZITHROMAX 250 MG ORAL TABLET 2 po today, then 1 po q days 2-5 20 26/06/19 AZITHROMYCIN 99669926628 No Longer Active Nereyda Isaacs Activ e OMEGA-3 1000 MG ORAL CAPSULE 2qd OMEGA-3 FA TTY ACIDS 07793500963 No Longer Active Wayne Harms PA Active BENADRYL ITCH STOPPING 1-0.1 % EXTERNAL CREAM prn DIPHENHYDRAMINE- ZINC ACETATE 30764210993 No Longer Active Wayne Harms PA Active LOTRISONE 1-0.05 % EXTERNAL CREAM Apply bid CLOTRIMAZOLE-BETAMETHASONE 07173840858 No Longer Active Wayne Harms PA Active ZITHROMAX Z-SANJANA 250 MG ORAL TABLET take as directed 20 26/04/19 AZITHROMYCIN 76316590291 No Longer Active Wayne Harms PA Active NYSTATIN 166106 UNIT/GM EXTERNAL POWDER Apply to affected areas BID NYSTATIN 04267637301 No Longer Active Wayne Harms PA Acti ve BENADRYL 25 MG ORAL CAPSULE prn DIPHENHYDRAMINE HCL 53899196058 Active Wayne Harms PA Active LOTRISONE 1-0.05 % EXTERNAL CREAM apply twice a day 20 25/02/17 CLOTRIMAZOLE-BETAMETHASONE 15084161519 No Longer Active Wayne Harms PA Active HYDROCODONE-ACETAMINOPHEN 5-325 MG ORAL TABLET 1-2 every 4hr s prn pain HYDROCODONE-ACETAMINOPHEN 86988970824 No Longer Activ e Wayne Harms PA Active VICODIN 5-300 MG ORAL TABLET 1-2 tabs every 6hrs as needed for p ain HYDROCODONE-ACETAMINOPHEN 04414886390 No Longer Active Wayne Harms PA Active BENADRYL 25 MG ORAL CAPSULE 1prn DIPHENHYDRA MINE HCL 58370326859 No Longer Active Jillina Frazell MANAGER CONSUMER Active ROBITUSSIN DM 100-10 MG/5ML ORAL SYRUP 2 teaspoons four times a day DEXTROMETHORPHAN-GUAIFENESIN 19629743621 No Longer Active Jillina Frazell MANAGER CONSUMER Active ACIPHEX 20 MG ORAL TABLET DELAYED RELEASE Take one by mouth daily RABEPRAZOLE SODIUM 18516168579 No Longer Active Jillina Frazell MANAGER CONSUMER Active TUMS 500 MG ORAL TABLET CHEWABLE prn SADIQ CIUM CARBONATE ANTACID 49083236225 No Longer Active Jillina Frazell MANAGER CONSUMER Active PEPTO-BISMOL 524 MG/30ML ORAL SUSPENSION prn 02/26 BISMUTH SUBSALICYLATE 42002842282 No Longer Active Jillina Frazell MANAGER CONSUMER Active BACTRIM DS 800-160 MG ORAL TABLET 1bid SULFAMETHOXAZOLE-TRIMETHOPRIM 69507179309 No Longer Active Beth Naff PIANO REGULATOR Active GAVISCON EXTRA RELIEF FORMULA CHEW prn A LUM HYDROXIDE-MAG CARBONATE CHEW 86045359097 Active Wayne Harms PA Active DIFLUCAN 150 MG ORAL TABLET 1stat FLUCONAZOL E 32383197166 No Longer Active Wayne Harms PA Active AUGMENTIN 875-125 MG ORAL TABLET 1 tab by mouth twice daily with food AMOXICILLIN-POT CLAVULANATE 61768228453 No Longer Act rancho Wayne Harms PA Active FLUTICASONE PROPIONATE 50 MCG/ACT NASAL SUSPENSION 1 t o 2 sprays each nostril twice a day FLUTICASONE PROPIONATE 08230782963 No Lo nger Active Wyane Harms PA Active HYDROCORTISONE 2.5 % EXTERNAL CREAM apply 2-4 times a day, a s directed, prn HYDROCORTISONE 70186791519 No Longer Active Wayne Harms PA Active ZITHROMAX Z-SANJANA 250 MG ORAL TABLET A ZITHROMYCIN 70328200613 No Longer Active Wayne Harms PA Active SIMVASTATIN 40 MG ORAL TABLET one tablet daily SIMVASTATIN 66583940449 No Longer Active Misty Yoo PIANO REGULATOR Active LOVASTATIN 40 MG ORAL TABLET Take one by mouth daily 12/11 LOVASTATIN 67350689952 No Longer Active Misty Yoo PIANO REGULATOR Active PREDNISONE 20 MG ORAL TABLET 2 PO qd x 2d, 1 PO qd x 2d, 1/2 PO qd x 2d PREDNISONE 75396580850 No Longer Active Ismael silva PA Active ZITHROMAX 250 MG ORAL TABLET two tablets now and one daily x 4 d ays AZITHROMYCIN 40816240423 No Longer Active Misty Yoo LPN Active ZOLPIDEM TARTRATE 10MG TABS (ZOLPIDEM TARTRATE) 1 at bedtime as needed Active Supriya Huston RMA Active CLOBETASOL PROPIONATE 0.05 % EXTERNAL CREAM apply as directed CLOBETASOL PROPIONATE 29463861829 No Longer Active Wayne Harms PA A ctive CYMBALTA 30 MG ORAL CAPSULE DELAYED RELEASE PARTICLES takes 90mg qod alt with 60mg DULOXETINE HCL 88586206531 No Longer Active Wayne Harm s PA Active ZITHROMAX 250 MG ORAL TABLET 2 po today, then 1 po q days 2-5 20 12/24/14 AZITHROMYCIN 23618597017 No Longer Active Wayne Harms PA Ac tive TRIAMCINOLONE ACETONIDE 0.1 % EXTERNAL CREAM apply qid TRIAMCINOLONE ACETONIDE 43381850415 No Longer Active Wayne Harms PA Active ALPRAZOLAM 0.25 MG ORAL TABLET 1 tab three times a day 201 02/23/14 ALPRAZOLAM 61721287135 No Longer Active Wayne Harms PA Active ZOLPIDEM TARTRATE 5 MG ORAL TABLET 1 at bedtime as needed ZOLPIDEM TARTRATE 92257165781 No Longer Active Beth Turner PIANO REGULATOR Active ALPRAZOLAM 0.25 MG ORAL TABLET 1 tab three times a day ALPRAZOLAM 0.25 MG ORAL TABLET 519849 ALPRAZOLAM Inactive TRIAMCINOLONE ACETONIDE 0.1 % EXTERNAL CREAM apply qid TRIAMCINOLONE ACETONIDE 0.1 % EXTERNAL CREAM 3249729 TRIAMCINOLONE A CETONIDE Inactive CYMBALTA 30 MG ORAL CAPSULE DELAYED RELEASE PARTICLES takes 90mg qod alt with 60mg CYMBALTA 30 MG ORAL CAPSULE DELAYED RELEA SE PARTICLES 798248 DULOXETINE HCL Inactive CLOBETASOL PROPIONATE 0.05 % EXTERNAL CREAM apply as directed CLOBETASOL PROPIONATE 0.05 % EXTERNAL CREAM 341172 CLOBETASOL PROPI KELVIN Inactive LOVASTATIN 40 MG ORAL TABLET Take one by mouth daily 2 LOVASTATIN 40 MG ORAL TABLET 931701 LOVASTATIN Inactive ZITHROMAX Z-SANJANA 250 MG ORAL TABLET 03/03 ZITHROMAX Z-SANJANA 250 MG ORAL TABLET 576154 AZITHROMYCIN Inactive HYDROCORTISONE 2.5 % EXTERNAL CREAM apply 2-4 times a day, a s directed, prn HYDROCORTISONE 2.5 % EXTERNAL CREAM 087735 HYDRO CORTISONE Inactive FLUTICASONE PROPIONATE 50 MCG/ACT NASAL SUSPENSION 1 t o 2 sprays each nostril twice a day FLUTICASONE PROPIONA TE 50 MCG/ACT NASAL SUSPENSION 5981569 FLUTICASONE PROPIONATE Inactive AUGMENTIN 875-125 MG ORAL TABLET 1 tab by mouth twice daily with food AUGMENTIN 875-125 MG ORAL TABLET AMOXICIL BLOSSOM-POT CLAVULANATE Inactive DIFLUCAN 150 MG ORAL TABLET 1stat DIFLUCAN 150 MG ORAL TABLET 638116 FLUCONAZOLE Inactive PEPTO-BISMOL 524 MG/30ML ORAL SUSPENSION prn PEPTO-BISMOL 524 MG/30ML ORAL SUSPENSION BISMUTH SUBSALICYLATE Inactive TUMS 500 MG ORAL TABLET CHEWABLE prn TUMS 500 MG ORAL TABLET CHEWABLE 506637 CALCIUM CARBONATE ANTACID Inactive ACIPHEX 20 MG ORAL TABLET DELAYED RELEASE Take one by mouth daily ACIPHEX 20 MG ORAL TABLET DELAYED RELEASE 055533 RABEPRAZOLE SODIUM Inactive ROBITUSSIN DM 100-10 MG/5ML [...] pain HYDROCODONE-ACETAMINOPHEN 5-325 MG ORAL TABLET 8 34548 HYDROCODONE-ACETAMINOPHEN Inactive LOTRISONE 1-0.05 % EXTERNAL CREAM apply twice a day 20 25/02/17 LOTRISONE 1- 0.05 % EXTERNAL CREAM CLOTRIMAZOLE-BETAMETHASONE Inactive NYSTATIN 849033 UNIT/GM EXTERNAL POWDER Apply to affected areas BID NYSTATIN 242335 UNIT/GM EXTERNAL POWDER 823987 NYSTATIN Inactive ZITHROMAX Z-SANJANA 250 MG ORAL TABLET take as directed 20 26/04/19 ZITHROMAX Z-SANJANA 250 MG ORAL TABLET 151811 AZITHROMYCIN Inact [place] LOTRISONE 1-0.05 % EXTERNAL CREAM Apply bid LOTRISONE 1- 0.05 % EXTERNAL CREAM CLOTRIMAZOLE-BETAMETHASONE Inactive BENADRYL ITCH STOPPING 1-0.1 % EXTERNAL CREAM prn BENADRYL ITCH STOPPING 1-0.1 % EXTERNAL CREAM DIPHENHYDRAMINE-ZINC ACETATE Inactive OMEGA-3 1000 MG ORAL CAPSULE 2qd OMEGA-3 1000 MG ORAL CAPSULE 297479 OMEGA-3 FATTY ACIDS Inactive ZITHROMAX 250 MG ORAL TABLET 2 po today, then 1 po q days 2-5 20 26/06/19 ZITHROMAX 250 MG ORAL TABLET 447982 AZITHROMYCIN Mara ctive PREMARIN 0.625 MG ORAL TABLET Take one by mouth daily PREMARIN 0.625 MG ORAL TABLET ESTROGENS CONJUGATED Inactive PREDNISONE 20 MG ORAL TABLET 3tab x 2days,2tab x 2days ,1tab x 2days,1/2tab x 2days PREDNISONE 20 MG ORAL TABLET 961482 PREDNIS ONE Inactive CYMBALTA 30 MG ORAL CAPSULE DELAYED RELEASE PARTICLES 1 daily wi th 60mg CYMBALTA 30 MG ORAL CAPSULE DELAYED RELEASE PARTICLES 550201 DULOXETINE HCL Inactive CYMBALTA 60 MG ORAL CAPSULE DELAYED RELEASE PARTICLES one tablet daily, takes 30mg. with 60mg. to make 90 mg. CYMBALTA 60 MG ORAL CAPSULE DELAYED RELEASE PARTICLES 161744 DULOXETINE HCL Inacti ve CYMBALTA 30 MG ORAL CAPSULE DELAYED RELEASE PARTICLES 3 caps daily CYMBALTA 30 MG ORAL CAPSULE DELAYED RELEASE PARTICLES 828250 DULOXE ROSANNE HCL Inactive HYDROCORTISONE 2.5 % EXTERNAL CREAM Apply four times a day to af fected area HYDROCORTISONE 2.5 % EXTERNAL CREAM 491463 HYDROCORTISO NE Inactive CLARITIN 10 MG ORAL TABLET 1 tablet by mouth daily as needed for allergies CLARITIN 10 MG ORAL TABLET 387909 LORATADINE Inact ranch[place] VENLAFAXINE HCL 75 MG ORAL TABLET 1tid VENLAFAXINE HCL 75 MG ORAL TABLET 090163 VENLAFAXINE HCL Inactive CENTRUM SILVER ADULT 50+ ORAL TABLET 1qd 2013 CENTRUM SILVER ADULT 50+ ORAL TABLET MULTIPLE VITAMINS-MINERALS Inactive CALCIUM + D 600-200 MG-UNIT TABS Take one by mouth daily CALCIUM + D 600-200 MG-UNIT TABS CALCIUM CARBONATE-VITAMIN D Inactive AMOXICILLIN 500 MG ORAL CAPSULE 2 caps tid for 10days AMOXICILLIN 500 MG ORAL CAPSULE 277676 AMOXICILLIN Inactive CYMBALTA 60 MG ORAL CAPSULE DELAYED RELEASE PARTICLES 1 cap by mouth daily CYMBALTA 60 MG ORAL CAPSULE DELAYED RELE ASE PARTICLES 409930 DULOXETINE HCL Inactive VITAMIN D 1000 UNIT ORAL TABLET 1qd 4 VITAMIN D 1000 UNIT ORAL TABLET CHOLECALCIFEROL Inactive CHERATUSSIN AC 100-10 MG/5ML ORAL SYRUP one teaspoon qid. 9 CHERATUSSIN AC 100-10 MG/5ML ORAL SYRUP GUAIFENESIN-CODEINE Inactive FLAGYL 500 MG ORAL TABLET 1 tablet by mouth three times daily 20 28/05/03 FLAGYL 500 MG ORAL TABLET 749575 METRONIDAZOLE Inacti ve CLARITIN 10 MG ORAL TABLET one tablet daily CLARITIN 10 MG ORAL TABLET 023977 LORATADINE Inactive TUSSIONEX PENNKINETIC ER 10-8 MG/5ML [...] affected area HYDROCORTISONE 2.5 % EXTERNAL CREAM 763671 HYDRO CORTISONE Inactive ACIPHEX 20 MG ORAL TABLET DELAYED RELEASE 1qd ACIPHEX 20 MG ORAL TABLET DELAYED RELEASE 354092 RABEPRAZOLE SODIUM Inactive B-12 2000 MCG ORAL TABLET 1qd B-12 2000 MCG ORAL TABLET CYANOCOBALAMIN Inactive VITAMIN D3 1000 UNIT ORAL TABLET 1qd VITAMIN D3 1000 UNIT ORAL TABLET CHOLECALCIFEROL Inactive CEPHALEXIN 250 MG ORAL CAPSULE Take one tablet qid 201 05/25/29 CEPHALEXIN 250 MG ORAL CAPSULE 510602 CEPHALEXIN Inactive FISH OIL 1200 MG ORAL CAPSULE One daily prn FISH OIL 1200 MG ORAL CAPSULE OMEGA-3 FATTY ACIDS Inactive ZITHROMAX Z-SANJANA 250 MG ORAL TABLET 2x1day,2f2tseb 2014 ZITHROMAX Z-SANJANA 250 MG ORAL TABLET 708277 AZITHROMYCIN Inact [place] BENZONATATE 200 MG ORAL CAPSULE Take one capsule three times a d ay BENZONATATE 200 MG ORAL CAPSULE 620380 BENZONATATE Inactive GREEN TEA SLIM ORAL TABLET Take one daily GREEN TEA SLIM ORAL TABLET MISC NATURAL PRODUCTS Inactive PROBIOTIC ORAL CAPSULE Take one daily PROBIOTIC ORAL CAPSULE 4135885 PROBIOTIC PRODUCT Inactive VITAMIN D3 1000 UNIT ORAL TABLET Take two daily 05/05 VITAMIN D3 1000 UNIT ORAL TABLET CHOLECALCIFEROL Inactive HYDROCORTISONE 2.5 % EXTERNAL CREAM Apply three times a day to affected area HYDROCORTISONE 2.5 % EXTERNAL CREAM 366776 HYDRO CORTISONE Inactive MOBIC 15 MG ORAL TABLET 1 tablet by mouth daily in am with PPI 2 MOBIC 15 MG ORAL TABLET 278615 MELOXICAM Inactive CLARITIN-D 12 HOUR 5-120 MG ORAL TABLET EXTENDED RELEA SE 12 HOUR Take one tablet bid CLARITIN-D 12 HOUR 5 -120 MG ORAL TABLET EXTENDED RELEASE 12 HOUR LORATADINE-PSEUDOEPHEDRINE Inactive ACETAMINOPHEN 500 MG ORAL TABLET prn ACETAMINOPHEN 500 MG ORAL TABLET 578944 ACETAMINOPHEN Inactive CLARITIN-D 12 HOUR 5-120 MG [...] yeast 03/03 DIFLUCAN 150 MG ORAL TABLET 771349 FLUCONAZOLE Inactive DIFLUCAN 150 MG ORAL TABLET Take one tablet today and repeat in 72 hours DIFLUCAN 150 MG ORAL TABLET 149423 FLUCONAZOLE Inactive IBUPROFEN 200 MG ORAL TABLET Take 3 tablets every 6hrs IBUPROFEN 200 MG ORAL TABLET 694415 IBUPROFEN Inactive ZITHROMAX Z-SANJANA 250 MG ORAL TABLET Take 2 tablets toda y and 1 each day till gone ZITHROMAX Z-SANJANA 250 MG ORAL TABLET 701745 A ZITHROMYCIN Inactive PROAIR HFA 108 (90 [...] bowels 3 REGLAN 10 MG ORAL TABLET 251178 METOCLOPRAMIDE HCL Inactive PREDNISONE 20 MG ORAL TABLET Take 2 tablets by mouth d aily for 2 days then 1 tablet daily for 2 days. PREDNISONE 20 MG ORAL T ABLET 643447 PREDNISONE Inactive ZYRTEC ALLERGY 10 MG ORAL CAPSULE 1qd ZYRTEC ALLERGY 10 MG ORAL CAPSULE CETIRIZINE HCL Inactive ADK 6751-4921-145 UNIT-MCG ORAL CAPSULE 1 daily 2 ADK 2637-2843-148 UNIT-MCG ORAL CAPSULE VITAMINS A D K Inac tive ZITHROMAX 250 MG ORAL TABLET 2 po today, then 1 po q days 2-5 20 12/24/14 ZITHROMAX 250 MG ORAL TABLET 647889 AZITHROMYCIN Mara ctive ZITHROMAX 250 MG ORAL TABLET two tablets now and one daily x 4 d ays ZITHROMAX 250 MG ORAL TABLET 891190 AZITHROMYCIN Mara ctive PREDNISONE 20 MG ORAL TABLET 2 PO qd x 2d, 1 PO qd x 2d, 1/2 PO qd x 2d PREDNISONE 20 MG ORAL TABLET 809208 PREDNISONE Inactive SIMVASTATIN 40 MG ORAL TABLET one tablet daily SIMVASTATIN 40 MG ORAL TABLET 436921 SIMVASTATIN Inactive BACTRIM DS 800-160 MG ORAL TABLET 1bid BACTRIM DS 800-160 MG ORAL TABLET 939542 SULFAMETHOXAZOLE-TRIMETHOPRIM Inactive ZITHROMAX 250 MG ORAL TABLET 2 po today, then 1 po q days 2-5 20 26/12/21 ZITHROMAX 250 MG ORAL TABLET 859056 AZITHROMYCIN [place] ctive ZITHROMAX 250 MG ORAL TABLET 2 po today, then 1 po q days 2-5 20 27/02/16 ZITHROMAX 250 MG ORAL TABLET 269208 AZITHROMYCIN Mar[place] ctive ZITHROMAX 250 MG ORAL TABLET 2 po today, then 1 po q days 2-5 20 26/02/30 ZITHROMAX 250 MG ORAL TABLET 960124 AZITHROMYCIN [place] ctive ZITHROMAX 250 MG ORAL TABLET 2 po today, then 1 po q days 2-5 20 26/06/21 ZITHROMAX 250 MG ORAL TABLET 075365 AZITHROMYCIN Mara ctive ZITHROMAX 250 MG ORAL TABLET 2 po today, then 1 po q days 2-5 20 31/03/18 ZITHROMAX 250 MG ORAL TABLET 953801 AZITHROMYCIN [place] ctive ZITHROMAX Z-SANJANA 250 MG ORAL TABLET 2 today, then 1 daily for 4 d ays ZITHROMAX Z-SANJANA 250 MG ORAL TABLET 564617 AZITHROMYCIN Inactive AMOXICILLIN 500 MG ORAL CAPSULE Take 1 capsule by mout h three times a day X 10 days AMOXICILLIN 500 MG ORAL CAPSULE 372141 AMOX ICILLIN Inactive AMOXICILLIN-POT CLAVULANATE 875-125 MG ORAL TABLET 1 pill by mouth twice daily AMOXICILLIN-POT CLAVULANATE 875-125 MG ORAL TABL ET 639814 AMOXICILLIN-POT CLAVULANATE Inactive AUGMENTIN 875-125 MG ORAL TABLET Take one tablet twice a day with food AUGMENTIN 875-125 MG ORAL TABLET AMOXICILLIN-POT CLAVULANATE Inactive POLYTRIM 12760-6.1 UNIT/ML-% OPHTHALMIC SOLUTION 1 gtt to affected eye q3h x 7 days POLYTRIM 25588-6.1 UNIT/ML-% OPH THALMIC SOLUTION 163374 POLYMYXIN B-TRIMETHOPRIM Inactive MACROBID 100 MG ORAL CAPSULE 1 cap by mouth twice daily MACROBID 100 MG ORAL CAPSULE 3816710 NITROFURANTOIN MONOHYD MACRO In active Advance Directives [...] Fluarix, Agriflu(>= 18 yo)) Fluzone (>=3 yrs.) [SCZ134] Seasonal influenza vaccine, injectable, containing preservative, for > 3 years old (Afluria, FluLaval, Fluzone, Fluvirin, Fluarix, Agriflu(>= 18 yo)) Fluzone (>3 yrs.) [[id number]] Seasonal influenza vaccine, injectable, containing preservative, for > 3 years old (Afluria, FluLaval, Fluzone, Fluvirin, Fluarix, Agriflu(>= 18 yo)) Fluarix (>3 yrs.) [[id number]] Diagnostic Results Date Name Value Unit Range Description Lab Report: CBC, Comp. Metabolic Panel, Lipid Panel, Magnesium - Chemistry sodium, serum 138 mmol/L 211-843 0420/09/02 carbon dioxide, venous blood 28.0 mmol/L 21.0-32 [...] 0.20 mg/dL 0.00-1.00 cholesterol, serum 228 mg/dL [id number] 3225/09/02 triglyceride, serum, fasting 236 mg/dL 30-200 HDL [...] 0.36-3.74 Encounters Code Encounter Date Provider Facility CPT-82772 58022: Ofc Vst-Est Level IV-Moderate MDM or 30-39 minutes 17:48:09 CDT Ashley Yang [facility] [place] CPT-80765 [id number] Vst-Est Level III 17:07:11 CDT Jenny Yang [facility] [place] CPT-25876 [id number] Vst-Est Level III 17:51:44 ORNAMENTAL PAINTER [place] [facility] CPT-75857 Level 3 Est. Patient 11:09:39 CDT Viviana Rubio [facility] CPT-02914 [id number] Vst-Est Level IV 09:14:31 CDT Conchis Yang [facility] [place] CPT-58387 [id number] Vst-Est Level III 22:05:50 CDT Jenny Yang [facility] [place] CPT-28457 Level 3 Est. Patient 15:00:02 ORNAMENTAL PAINTER Will Avi jarquin [facility] CPT-52972 Level 2 Est. Patient 13:46:20 CDT Ashley Meraz [facility] [place] CPT-79139 Level 2 Est. Patient 13:45:36 CDT Ashley Meraz [facility] [place] CPT-83498 Level 3 Est. Patient 15:52:07 CDT Ashley Meraz [facility] [place] CPT-44550 Level 3 Est. Patient 08:20:37 CDT Ashley Meraz [facility] [place] CPT-08323 Level 3 Est. Patient 15:06:41 CDT Derrick donaldson MD [facility] CPT-93163 Level 3 Est. Patient 11:13:21 ORNAMENTAL PAINTER Derrick donaldson MD [facility] CPT-44167 Level 3 Est. Patient 12:54:25 ORNAMENTAL PAINTER Ashley Kt [facility] [place] CPT-04402 Level 3 Est. Patient 23:34:49 ORNAMENTAL PAINTER Ashley Yoелена [facility] [place] CPT-16631 Level 3 Est. Patient 16:37:09 ORNAMENTAL PAINTER Ashley Meraz [facility] [place] CPT-65540 Level 3 Est. Patient 11:59:30 ORNAMENTAL PAINTER Ashley Meraz [facility] [place] CPT-09541 Level 4 Est. Patient 07:40:13 CDT Wayne delatorre [facility] [place] CPT-65371 Level 4 Est. Patient 08:06:18 CDT [facility]-52790 Level 3 Est. Patient 11:14:45 CDT [facility]15 Level 3 Est. Patient 10:14:55 CDT Wayne delatorre [facility] CPT-53139 Level 4 Est. Patient 15:23:47 CDT Wayne delatorre [facility] [place] CPT-32419 Level 3 Est. Patient 07:50:51 ORNAMENTAL PAINTER [facility] CPT-10844 Level 3 Est. Patient 14:47:52 CDT [facility] CPT-75938 Level 3 Est. Patient 11:28:46 CDT Wayne delatorre [facility] [place] CPT-54900 Level 4 Est. Patient 14:48:43 CDT [facility] CPT-96844 Level 3 Est. Patient 14:10:18 ORNAMENTAL PAINTER Wayne delatorre [facility] [place] CPT-06050 Level 3 Est. Patient 16:44:33 ORNAMENTAL PAINTER [facility] CPT-83837 Level 4 Est. Patient 08:22:34 ORNAMENTAL PAINTER Wayne delatorre [facility] [place] CPT-17590 Level 4 Est. Patient 07:10:[address] [facility] [place] [facility] CPT-14129 Level 3 Est. Patient 14:50:20 ORNAMENTAL PAINTER [facility] CPT-48191 Level 3 Est. Patient 09:46:08 ORNAMENTAL PAINTER Zuleika cha APRN [facility] [place] [facility] [place] [facility] CPT-13185 Level 4 Est. Patient 07:56:24 ORNAMENTAL PAINTER Wayne delatorre [facility] [place] [facility] CPT-07833 Level 3 Est. Patient 12:13:53 CDT Ismael Denton [facility] [place] [facility] CPT-84125 Level 4 Est. Patient 12:28:51 ORNAMENTAL PAINTER Wayne delatorre [facility] [place] [facility] CPT-15817 Level 3 Est. Patient 15:23:42 ORNAMENTAL PAINTER Wayne delatorre [facility] [place] [facility] CPT-40703 Level 3 Est. Patient 06:34:33 ORNAMENTAL PAINTER Wayne delatorre [facility] [place] [facility] Procedures Code Procedure Name Date Entry Date Standard Desc ription CPT-72151 Allergy Admin 2 16:06:08 CDT CPT-64049 Allergy Admin 2 16:51:42 CDT CPT-66579 Allergy Admin 2 16:26:50 CDT CPT-51941 Allergy Admin 2 17:02:53 CDT CPT-28356 Allergy Admin 2 16:32:35 CDT CPT-46823 Allergy Admin 2 16:26:27 CDT CPT-J3420 Vitamin B12 1000mcg (Cyanocobalamin) 16:32:13 CDT CPT-52600 Abx/Therapy Injection 16:32:13 CDT CPT-60237 Allergy Admin 2 16:32:12 CDT CPT-67421 Allergy Admin 2 16:05:03 CDT CPT-63264 Allergy Admin 2 16:35:15 CDT CPT-08090 Allergy Admin 2 16:20:41 CDT CPT-95582 Allergy Admin 2 11:25:21 CDT CPT-44183 Allergy Admin 2 15:46:12 CDT CPT-[id number] (4274F) Influenza immunization administe red or previously received 17:51:44 ORNAMENTAL PAINTER CPT-20393 Spec Collection and Handling Fee 10:45:[address] CPT-[id number] (4274F) Influenza immunization administe red or previously received 10:20:17 CDT CPT-13394 Prv Med Est Pt 40-64yrs 16:26:57 CDT CPT-80249 Venipuncture Draw Fee 11:08:31 CDT CPT-82210 Magnesium - LAB USE ONLY 11:08:31 CDT 10/15 CPT-11787 TSH - LAB USE ONLY 11:08:31 CDT CPT-07692 Lipid - LAB USE ONLY 11:08:30 CDT 2 CPT-95864 CMP - LAB USE ONLY 11:08:30 CDT CPT-54700 CBC - LAB USE ONLY 11:08:30 CDT CPT-05731 Spec Collection and Handling Fee 16:14:51 C DT CPT-50114 UA w micro - LAB USE ONLY 16:14:51 CDT 2018 CPT-39017 Prv Med Est Pt 40-64yrs 08:34:49 CDT 10/01 CPT-93563 Sed Rate - LAB USE ONLY 10:50:49 CDT 10/02 CPT-28468 TSH - LAB USE ONLY 10:50:49 CDT CPT-37761 Lipid - LAB USE ONLY 10:50:49 CDT 0 CPT-12056 Magnesium - LAB USE ONLY 10:50:49 CDT 10/02 CPT-79141 CMP - LAB USE ONLY 10:50:49 CDT CPT-14738 CBC - LAB USE ONLY 10:50:49 CDT CPT-00067 Venipuncture Draw Fee 10:50:49 CDT CPT-15614 IV Hydration < or = 1 hr 22:05:50 CDT 04/16 CPT-J7030 Normal Saline 1000 mL 22:05:50 CDT CPT-06586 Abx/Therapy Injection 16:31:51 ORNAMENTAL PAINTER CPT-J2950 Phenergan 25 mg 16:31:51 ORNAMENTAL PAINTER CPT-94714 Abx/Therapy Injection 16:39:40 CDT CPT-45196 First Vx - Ix admin via ID I M or jet injects without counseling by physician 16:39:39 CDT CPT-65352 Prv Med Est Pt 40-64yrs 16:33:10 CDT 11/10 CPT-JTINJ Asp/Joint Injection 16:13:36 CDT CPT-06377 Allergy Admin 2 16:54:52 CDT CPT-07233 Allergy Admin 2 16:46:15 CDT CPT-57057 Allergy Admin 2 11:29:09 CDT CPT-20710 Allergy Admin 2 17:05:15 CDT CPT-79690 Allergy Admin 2 12:31:51 CDT CPT-00623 Allergy Admin 2 15:40:56 CDT CPT-50524 CBC - LAB USE ONLY 09:49:24 CDT CPT-67239 CMP - LAB USE ONLY 09:49:24 CDT CPT-90493 Lipid - LAB USE ONLY 09:49:24 CDT 8 CPT-63160 Venipuncture Draw Fee 09:49:24 CDT CPT-11019 Allergy Admin 2 10:46:11 CDT CPT-JTINJ Asp/Joint Injection 09:52:58 CDT CPT-55694 Skin tag rem 1-15 13:46:20 CDT CPT-66737 Knee, right, 3V - XRAY USE ONLY 13:07:09 CD T CPT-68793 Allergy Admin 2 11:56:38 CDT CPT-98879 Allergy Admin 2 12:00:55 CDT CPT-87664 Allergy Admin 2 16:42:13 CDT CPT-84514 Allergy Admin 2 16:27:55 CDT CPT-05909 Allergy Admin 2 13:24:26 CDT CPT-85844 Allergy Admin 2 17:17:57 ORNAMENTAL PAINTER CPT-70020 Allergy Admin 2 16:23:22 ORNAMENTAL PAINTER CPT-92480 Allergy Admin 2 16:26:55 ORNAMENTAL PAINTER CPT-31342 Allergy Admin 2 16:32:33 ORNAMENTAL PAINTER CPT-73183 Allergy Admin 2 17:43:40 ORNAMENTAL PAINTER CPT-60688 Allergy Admin 2 16:26:07 ORNAMENTAL PAINTER CPT-18963 Allergy Admin 2 12:31:50 ORNAMENTAL PAINTER CPT-48772 Allergy Admin 2 16:40:38 ORNAMENTAL PAINTER CPT-33073 Allergy Admin 2 17:07:36 CDT CPT-G0008 Administration of Influenza Virus Vaccine 17:01:01 CDT CPT-09806 First Vx - Ix admin via ID I M or jet injects without counseling by physician 17:01:01 CDT CPT-68634 Allergy Admin 2 12:06:54 CDT CPT-62389 Allergy Admin 2 17:04:46 CDT CPT-07128 Allergy Admin 2 16:34:48 CDT CPT-59698 Allergy Admin 2 17:04:51 CDT CPT-97352 Allergy Admin 2 16:25:14 CDT CPT-70282 Allergy Admin 2 10:52:02 CDT CPT-85472 Allergy Admin 2 11:45:31 CDT CPT-64526 Allergy Admin 2 12:02:20 CDT CPT-71027 Allergy Admin 2 15:47:29 CDT CPT-35225 Allergy Admin 2 13:25:44 CDT CPT-68251 Allergy Admin 2 10:51:13 CDT CPT-64691 CBC - LAB USE ONLY 10:44:39 CDT CPT-46429 CMP - LAB USE ONLY 10:44:39 CDT CPT-27472 Lipid - LAB USE ONLY 10:44:39 CDT 9 CPT-40598 Venipuncture Draw Fee 10:44:38 CDT CPT-25200 Allergy Admin 2 12:25:22 CDT CPT-61445 Allergy Admin 2 12:41:34 CDT CPT-14809 Allergy Admin 2 15:29:46 CDT CPT-73436 Allergy Admin 2 14:46:53 CDT CPT-37383 Allergy Admin 2 14:16:16 CDT CPT-45198 Allergy Admin 2 16:55:26 CDT CPT-88108 Allergy Admin 2 10:12:02 CDT CPT-30264 Allergy Admin 2 14:53:56 CDT CPT-69959 Allergy Admin 2 17:01:54 CDT CPT-06694 Allergy Admin 2 09:36:02 CDT CPT-66549 Allergy Admin 2 16:53:26 ORNAMENTAL PAINTER CPT-75933 Allergy Admin 2 16:59:41 [facility] CPT-98905 Allergy Admin 2 16:36:44 [facility] CPT-21335 Allergy Admin 2 16:17:16 ORNAMENTAL PAINTER CPT-88715 Allergy Admin 2 17:08:10 [facility] CPT-91359 Allergy Admin 2 12:16:08 ORNAMENTAL PAINTER CPT-89847 Allergy Admin 2 16:47:30 ORNAMENTAL PAINTER CPT-11070 Allergy Admin 2 16:59:44 ORNAMENTAL PAINTER CPT-11994 Allergy Admin 2 12:48:53 ORNAMENTAL PAINTER CPT-47393 Allergy Admin 2 10:19:48 ORNAMENTAL PAINTER CPT-06223 Allergy Admin 2 12:40:17 ORNAMENTAL PAINTER CPT-67215 Abx/Therapy Injection 17:21:59 ORNAMENTAL PAINTER CPT-65228 First Vx - Ix admin via ID I M or jet injects without counseling by physician 17:21:57 ORNAMENTAL PAINTER CPT-59539 Allergy Admin 2 17:20:12 ORNAMENTAL PAINTER CPT-68573 Allergy Admin 2 11:12:50 ORNAMENTAL PAINTER CPT-92596 Allergy Admin 2 17:02:39 CDT CPT-39838 BMP - LAB USE ONLY 10:33:02 CDT CPT-34669 CBC - LAB USE ONLY 10:33:02 CDT CPT-96087 Venipuncture Draw Fee 10:33:02 CDT CPT-05384 Abx/Therapy Injection 12:29:08 CDT CPT-40774 Allergy Admin 2 10:39:48 CDT CPT-92731 Allergy Admin 2 10:55:47 CDT CPT-PV Prev. Care Visit 10:10:00 CDT CPT-12610 Allergy Admin 2 11:31:20 CDT CPT-20502 Allergy Admin 2 16:53:45 CDT CPT-99191 Allergy Admin 2 16:36:42 CDT CPT-47076 Allergy Admin 2 16:30:19 CDT CPT-54107 Allergy Admin 2 15:39:35 CDT CPT-99947 Allergy Admin 2 17:51:32 CDT CPT-84304 Allergy Admin 2 11:50:50 CDT CPT-PV Prev. Care Visit 14:09:05 CDT CPT-93552 Allergy Admin 2 13:37:39 CDT CPT-76720 Abx/Therapy Injection 12:17:43 CDT CPT-74499 Venipuncture Draw Fee 10:39:55 CDT CPT-54935 Allergy Admin 2 12:04:53 CDT CPT-24706 Allergy Admin 2 10:04:39 CDT CPT-70746 Allergy Admin 2 12:15:35 CDT CPT-48301 Allergy Admin 2 17:04:36 CDT CPT-74907 Allergy Admin 2 16:25:49 CDT CPT-35188 Allergy Admin 2 17:30:06 CDT CPT-66148 Allergy Admin 2 10:11:48 CDT CPT-92862 Allergy Admin 2 17:06:13 CDT CPT-40637 Abx/Therapy Injection 12:23:07 CDT CPT-J0702 Celestone 12 mg (Betamethasone) 12:23:07 CD T CPT-50948 Venipuncture Draw Fee 10:26:42 CDT CPT-19624 Allergy Admin 2 12:10:01 CDT CPT-65748 Allergy Admin 2 15:13:57 ORNAMENTAL PAINTER CPT-98779 Allergy Admin 2 16:55:22 ORNAMENTAL PAINTER CPT-79223 Allergy Admin 2 10:13:46 ORNAMENTAL PAINTER CPT-97875 Venipuncture Draw Fee 10:06:08 ORNAMENTAL PAINTER CPT-49100 Allergy Admin 2 16:15:41 ORNAMENTAL PAINTER CPT-27173 Allergy Admin 2 16:40:21 ORNAMENTAL PAINTER CPT-72652 Allergy Admin 2 16:31:48 ORNAMENTAL PAINTER CPT-54013 Allergy Admin 2 16:38:26 ORNAMENTAL PAINTER CPT-32948 Allergy Admin 2 16:40:08 ORNAMENTAL PAINTER CPT-28343 Allergy Admin 2 08:34:27 ORNAMENTAL PAINTER CPT-21669 Allergy Admin 2 14:27:45 ORNAMENTAL PAINTER CPT-44271 Destruction bgn lsn up to 14 09:41:27 ORNAMENTAL PAINTER 2 CPT-80915 Allergy Admin 2 17:45:17 ORNAMENTAL PAINTER CPT-81319 Allergy Admin 2 14:59:03 ORNAMENTAL PAINTER CPT-23831 Allergy Admin 2 12:49:42 CDT CPT-83828 Administration single or combination vac cine inc oral 15:01:57 CDT CPT-72062 Fluzone Quadrivalent Intramuscular Suspe nsion 0.5 ML 15:01:57 CDT CPT-69506 Allergy Admin 2 15:07:08 CDT CPT-48267 Allergy Admin 2 15:39:01 CDT CPT-33658 Allergy Admin 2 17:40:11 CDT CPT-84922 Allergy Admin 2 16:07:08 CDT CPT-99511 Allergy Admin 2 16:08:07 CDT CPT-84100 Venipuncture Draw Fee 09:34:29 CDT CPT-80288 Allergy Admin 2 16:27:43 CDT CPT-56103 Allergy Admin 2 15:53:10 CDT CPT-28407 Allergy Admin 2 15:42:29 CDT CPT-73760 Allergy Admin 2 11:26:14 CDT CPT-00862 Allergy Admin 2 10:36:24 CDT CPT-09955 Allergy Admin 2 16:53:37 CDT CPT-94191 Allergy Admin 2 11:21:44 CDT CPT-86050 Allergy Admin 2 10:50:40 CDT CPT-85064 Allergy Admin 2 11:19:11 CDT CPT-72342 Venipuncture Draw Fee 11:12:25 CDT CPT-48034 Allergy Admin 2 11:14:51 CDT CPT-20117 Allergy Admin 2 16:53:11 CDT CPT-20630 Allergy Admin 2 11:45:56 CDT CPT-33802 Allergy Admin 2 12:51:39 CDT CPT-68210 Allergy Admin 2 12:08:56 CDT CPT-53800 Allergy Admin 2 15:29:45 CDT CPT-14546 Allergy Admin 2 16:34:01 CDT CPT-30147 Allergy Admin 2 16:36:46 CDT CPT-26715 Allergy Admin 2 15:19:16 CDT CPT-19668 Allergy Admin 2 16:13:25 CDT CPT-58599 Allergy Admin 2 17:06:17 CDT CPT-03703 Allergy Admin 2 10:42:10 ORNAMENTAL PAINTER CPT-48507 Allergy Admin 2 17:33:16 ORNAMENTAL PAINTER CPT-45482 Allergy Admin 2 10:53:30 ORNAMENTAL PAINTER CPT-37249 Allergy Admin 2 14:18:24 ORNAMENTAL PAINTER CPT-79542 Allergy Admin 2 10:18:29 ORNAMENTAL PAINTER CPT-71432 Allergy Admin 2 12:57:40 ORNAMENTAL PAINTER CPT-50703 Allergy Admin 2 16:53:33 ORNAMENTAL PAINTER CPT-96087 Allergy Admin 2 12:43:00 ORNAMENTAL PAINTER CPT-21451 Allergy Admin 2 13:14:09 ORNAMENTAL PAINTER CPT-27741 Pneumovax 23 Injection Injectable 25 MCG /0.5ML 09:51:29 ORNAMENTAL PAINTER CPT-G0009 Administration of Pneumococcal Vaccine 09:51:29 ORNAMENTAL PAINTER CPT-07907 Influenza split virus > age 3 09:51:29 ORNAMENTAL PAINTER CPT-G0008 Administration of Influenza Virus Vaccine 02/23 09:51:29 ORNAMENTAL PAINTER CPT-99980 Venipuncture Draw Fee 10:31:06 CDT CPT-J0702 Celestone 12 mg (Betamethasone) 11:34:17 CD T CPT-45396 Abx/Therapy Injection 11:34:17 CDT CPT-90457 Chest 2V Frontal and Lat 11:31:47 CDT 07/04 CPT-98654 Venipuncture Draw Fee 11:31:47 CDT CPT-33021 Allergy Admin 2 14:31:05 CDT CPT-10371 EKG Trac and Interp 08:42:32 CDT CPT-70587 Chest 2V Frontal and Lat 08:42:32 CDT 05/28 CPT-37427 Venipuncture Draw Fee 08:39:02 CDT CPT-70546 Allergy Admin 2 16:59:09 CDT CPT-97108 Allergy Admin 2 17:06:11 CDT CPT-59134 Allergy Admin 2 16:04:36 CDT CPT-27346 Venipuncture Draw Fee 16:32:44 ORNAMENTAL PAINTER CPT-90102 Venipuncture Draw Fee 10:54:37 ORNAMENTAL PAINTER CPT-39365 Allergy Admin 2 14:53:55 ORNAMENTAL PAINTER CPT-40275 Allergy Admin 2 10:23:58 ORNAMENTAL PAINTER CPT-80323 First Vx Component - Ix admi n via ID IM or jet inj without physician counseling 15:34:26 ORNAMENTAL PAINTER CPT-03354 Fluzone (>=3 yrs.) 15:34:26 ORNAMENTAL PAINTER CPT-16397 Allergy Admin 2 15:56:02 ORNAMENTAL PAINTER CPT-87801 Allergy Admin 2 11:08:58 ORNAMENTAL PAINTER CPT-62928 Allergy Admin 2 10:51:36 ORNAMENTAL PAINTER CPT-50039 Allergy Admin 2 15:38:19 ORNAMENTAL PAINTER CPT-49275 Allergy Admin 2 15:12:46 CDT CPT-90146 Allergy Admin 2 10:28:50 CDT CPT-26925 Allergy Admin 2 16:35:33 CDT CPT-23349 Allergy Admin 2 10:14:18 CDT CPT-09469 Abx/Therapy Injection 09:06:45 CDT CPT-J0702 Celestone 6 mg (Betamethasone) 09:06:45 CDT CPT-13082 Allergy Admin 2 15:51:15 CDT CPT-37201 Allergy Admin 2 10:40:16 CDT CPT-76169 Allergy Admin 2 16:35:55 CDT CPT-87702 Allergy Admin 2 13:12:52 CDT CPT-43730 Allergy Admin 2 16:06:50 CDT CPT-82648 Allergy Admin 2 11:04:24 CDT CPT-17087 Allergy Admin 2 10:44:50 CDT CPT-01387 Allergy Admin 2 15:13:40 CDT CPT-13994 Allergy Admin 2 15:00:03 CDT CPT-56636 Allergy Admin 2 10:37:38 CDT CPT-46806 Venipuncture Draw Fee 09:16:43 ORNAMENTAL PAINTER CPT-65768 Allergy Admin 2 11:15:59 ORNAMENTAL PAINTER CPT-53672 Postop F/U Visit 10:10:52 ORNAMENTAL PAINTER CPT-39348 Allergy Admin 2 13:05:05 ORNAMENTAL PAINTER CPT-14528 Postop F/U Visit 19:45:16 ORNAMENTAL PAINTER CPT-47518 Allergy Admin 2 11:52:35 ORNAMENTAL PAINTER CPT-95901 Allergy Admin 2 10:49:22 ORNAMENTAL PAINTER CPT-OV Office Visit 13:55:55 ORNAMENTAL PAINTER CPT-79482 Allergy Admin 2 12:54:28 ORNAMENTAL PAINTER CPT-OV Office Visit 14:04:48 ORNAMENTAL PAINTER CPT-35401 Venipuncture Draw Fee 10:29:14 ORNAMENTAL PAINTER CPT-14701 Allergy Admin 2 11:24:43 ORNAMENTAL PAINTER CPT-03456 Knee 3V 11:00:12 ORNAMENTAL PAINTER CPT-38276 C-Spine Min 4V 11:00:12 ORNAMENTAL PAINTER CPT-73557 Allergy Admin 2 13:38:40 ORNAMENTAL PAINTER CPT-41082 Venipuncture Draw Fee 11:33:37 CDT CPT-17519 Allergy Admin 2 15:34:37 CDT CPT-69396 Allergy Admin 2 14:11:42 CDT CPT-40624 Administration single or combination vac cine inc oral 12:51:42 CDT CPT-23715 Influenza split virus > age 3 12:51:42 CDT CPT-45134 Allergy Admin 2 11:58:43 CDT CPT-46271 Allergy Admin 2 11:29:32 CDT CPT-37115 Allergy Admin 2 10:55:19 CDT CPT-50335 Allergy Admin 2 12:38:54 CDT CPT-31844 Allergy Admin 2 13:01:47 CDT CPT-46233 Abx/Therapy Injection 12:41:18 CDT CPT-J0702 Celestone 12 mg (Betamethasone) 12:41:18 CD T CPT-91230 Abx/Therapy Injection 16:33:09 CDT CPT-J0702 Celestone 12 mg (Betamethasone) 16:33:09 CD T CPT-25352 Allergy Admin 2 15:49:09 CDT CPT-31405 Allergy Admin 2 12:08:56 CDT CPT-87957 Allergy Admin 2 12:19:10 CDT CPT-14363 Allergy Admin 2 12:46:56 CDT CPT-43183 Allergy Admin 2 15:05:13 CDT CPT-38629 Allergy Admin 2 15:36:20 CDT CPT-25425 Allergy Admin 2 09:58:47 ORNAMENTAL PAINTER CPT-44380 Allergy Admin 2 12:18:06 ORNAMENTAL PAINTER CPT-94629 Allergy Admin 2 10:01:48 ORNAMENTAL PAINTER CPT-49104 Allergy Admin 2 12:17:53 ORNAMENTAL PAINTER CPT-98344 Allergy Admin 2 10:06:44 ORNAMENTAL PAINTER CPT-57581 Allergy Admin 2 10:13:04 ORNAMENTAL PAINTER CPT-34705 Venipuncture Draw Fee 10:09:07 ORNAMENTAL PAINTER CPT-01280 Bone Density 12:24:51 ORNAMENTAL PAINTER CPT-51786 Allergy Admin 2 11:29:41 ORNAMENTAL PAINTER CPT-24020 Allergy Admin 2 16:07:15 ORNAMENTAL PAINTER CPT-85697 Breathing Treatment 06:34:33 ORNAMENTAL PAINTER CPT-J0702 Celestone 12 mg (Betamethasone) 06:34:33 CS T CPT-87441 Abx/Therapy Injection 06:34:33 ORNAMENTAL PAINTER CPT-03586 Breathing Tx 11:07:33 ORNAMENTAL PAINTER CPT-82688 Allergy Admin 2 10:02:33 CDT CPT-89251 Allergy Admin 2 10:02:33 CDT CPT-74608 Allergy Admin 2 15:26:19 CDT CPT-26145 Administration single or combination vac cine inc oral 15:41:12 CDT CPT-64314 Influenza split virus > age 3 15:41:12 CDT
--- OUTSIDE RECORDS SUMMARY | 2020-09-15 14:37 | XMS REPORT | Clinical Summary ---
Author Author Admin, Supriya Zuniga Organization [facility] Address Unknown Phone Unavailable Allergies, Adverse [...] Yang APRN Pruritus vulvae Active Ashley Yokum ELECTRICAL WORKER Screening mammogram V76.12 Resolved Ashley Yokum A PRN Other screening mammogram Sinusitis, acute maxillary 461.0 Inactive 7 Ashley Yokum ELECTRICAL WORKER Acute maxillary sinusitis Diarrhea, acute 787.91 Resolved Ashley Yokum ELECTRICAL WORKER Diarrhea Vaginal candidiasis 112.1 Resolved Ashley Yokum A PRN Candidiasis of vulva and vagina Accidental fall E888.9 Resolved Ashley Yokum ELECTRICAL WORKER Unspecified fall Contusion of left hand, initial encounter 923.20 Resol burak Ashley Yokum ELECTRICAL WORKER Contusion of hand(s) Contusion of right upper arm, subsequent encounter V58.89 201 09/14/21 Resolved Ashley Yokum ELECTRICAL WORKER Encounter for other specified a ftercare Ganglion cyst of left wrist 727.41 Active Derrick Younger MD Ganglion of joint Body Mass Index 31.0-31.9 Adult Resolved 2017 Ashley Yokum ELECTRICAL WORKER Body Mass Index 31.0-31.9, adult Plantar fasciitis 728.71 Active Ashley Yokum ELECTRICAL WORKER Plantar fascial fibromatosis Bronchitis, acute 466.0 Inactive Ashley Yokum APR N Acute bronchitis Body Mass Index 30.0-30.9 Adult Resolved 2017 Ashley Yokum ELECTRICAL WORKER Body Mass Index 30.0-30.9, adult Allergic conjunctivitis, bilateral 372.14 Resolved 2 Ashley Yokum ELECTRICAL WORKER Other chronic allergic conjunctivitis Skin tags; irritated/inflammed 701.9 Resolved 11/10 Ashley Yokum ELECTRICAL WORKER Unspecified hypertrophic and atrophic co nditions of skin Body Mass Index 31.0-31.9 Adult Refinement 2017 Ashley Yokum ELECTRICAL WORKER Body Mass Index 31.0-31.9, adult BMI 30-30.9 Refinement Ashley Yokum ELECTRICAL WORKER Body Mass Index 31.0-31.9, adult BMI 31-31.9 Refinement Ashley Yokum ELECTRICAL WORKER Body Mass Index 31.0-31.9, adult BMI 32-32.9 Refinement Lois Faith RN Body Mass Index 31.0-31.9, adult BMI 31-31.9 Active Viviana Rubio APRN-Julieta Body Mass Index 31.0-31.9, adult Major depression, recurrent, moderate 296.32 Active Ashley Yokum ELECTRICAL WORKER Major depressive disorder, recurrent epi sode, moderate degree Obesity Class I (BMI 30-34.9) Active Ashley Y okum ELECTRICAL WORKER Obesity, unspecified Nausea and vomiting 787.01 Resolved Ashley Yokum A PRN Nausea with vomiting Gastroenteritis acute 558.9 Resolved Ashley Yokum ELECTRICAL WORKER Other and unspecified noninfectious gastroenteritis and colitis GERD 530.81 Active Ashley Yokum ELECTRICAL WORKER E sophageal reflux Joint pain 719.40 Resolved Ashley Yokum ELECTRICAL WORKER Pain in joint, site unspecified Preventive health care, adult V70.0 Inactive / Ashley Yokum ELECTRICAL WORKER Routine general medical examination at a health care facility Blood in urine 599.70 Resolved Ashley Yokum ELECTRICAL WORKER Hematuria, unspecified Other abnormal findings in urine Resolved Ashley Yokum ELECTRICAL WORKER Urinary tract infection 599.0 Inactive Ashley Yok um ELECTRICAL WORKER Urinary tract infection, site not specified Chafing of skin 709.8 Resolved Ashley Yokum ELECTRICAL WORKER Other specified disorders of skin Preventive care V70.0 Active Supriya Betzaida A Routine general medical examination at a health care facility Gynecological examination, routine V72.3 Inactive 2 Ashley Yokum ELECTRICAL WORKER Special investigations and e xaminations - Gynecological examination Near syncope 780.2 Resolved Ashley Yokum ELECTRICAL WORKER Syncope and collapse Lightheadedness 780.4 Resolved Ashley Yokum ELECTRICAL WORKER Dizziness and giddiness Headache 784.0 Resolved Ashley Yokum ELECTRICAL WORKER Headache Sore throat 462 Resolved Ashley Yokum ELECTRICAL WORKER Acute pharyngitis Sinusitis - acute 461.9 Resolved Ashley Yokum APR N Acute sinusitis, unspecified Tired all the time 780.79 Resolved Ashley Yokum AP RN Other malaise and fatigue Fatigue 780.79 Inactive Ashley Yokum ELECTRICAL WORKER Other malaise and fatigue ABNORMAL WEIGHT GAIN ICD-783.1 Inactive Wayne YANG ALLERGIC RHINITIS ICD-477.9 Inactive Lois Stephens gayatri ELECTRICAL WORKER SINUSITIS ICD-473.9 Inactive Lois Deric ELECTRICAL WORKER 2012 WHEEZING ICD-786.07 Inactive Lois Deric ELECTRICAL WORKER 2012 UPPER RESPIRATORY INFECTION, ACUTE ICD-465.9 I nactive Lois Deric ELECTRICAL WORKER NEED FOR DESENSITIZATION TO ALLERGENS ICD-V07.1 8 Inactive Ashley Yokum ELECTRICAL WORKER OBESITY ICD-278.00 Inactive Wayne YANG CONTACT DERMATITIS DUE TO POISON ARANZA ICD-692.6 Inactive Lois Leos ELECTRICAL WORKER NEED PROPHYLACTIC VACCINATION&INOCULATION FLU ICD-V04.81 Inactive Wayne Harms PA GERD ICD-530.81 Inactive Lois Leos ELECTRICAL WORKER 03/22 LONG-TERM (CURRENT) USE OF OTHER MEDICATIONS ICD-V58.69 6 Inactive Wayne Harms PA NECK PAIN ICD-723.1 Inactive Wayne Harms PA 06/15 DEGENERATIVE DISC DISEASE, CERVICAL SPINE ICD-722.4 Inactive Wayne Harms PA SKIN TAG ICD-701.9 Inactive Wayne Harms PA G E R D ICD-530.81 Inactive Lois Leos ELECTRICAL WORKER CANDIDIASIS OF SKIN AND NAILS ICD-112.3 Inacti ve Wayne Harms PA AFTERCARE FOLLOW SURGERY MUSCULOSKEL SYSTEM NEC ICD-V58.78 Inactive Wayne Harms PA PHARYNGITIS ICD-462 Inactive Wayne Harms PA 05/03 OTHER SCREENING MAMMOGRAM ICD-V76.12 Inactive Wayne Harms PA DYSPAREUNIA, MILD ICD-625.0 Inactive Wayne Harm s PA CONTACT DERMATITIS DUE TO POISON ARANZA ICD-692.6 Inactive Wayne Harms PA Sinusitis, chronic ICD-473.9 Inactive Ashley vallejo ELECTRICAL WORKER Myalgia ICD-729.1 Inactive Wayne Harms PA Rheumatoid [...] PA Runny nose ICD-472.0 Inactive Ashley Yang ELECTRICAL WORKER Influenza like illness ICD-487.1 Inactive Wayne Moon PA Acute maxillary sinusitis ICD-461.0 Inactive Ashley Yokum ELECTRICAL WORKER Preventive health care ICD-V70.0 Inactive Jenny mo Yokum ELECTRICAL WORKER Well women exam ICD-V72.3 Inactive Ashley Yokum ELECTRICAL WORKER Screening mammogram ICD-V76.12 Inactive Ashley Yokum ELECTRICAL WORKER Sinusitis, acute maxillary ICD-461.0 Inactive Ashley Yokum ELECTRICAL WORKER Diarrhea, acute ICD-787.91 Inactive Ashley Merazu m ELECTRICAL WORKER Vaginal candidiasis ICD-112.1 Inactive Ashley Y abdonum ELECTRICAL WORKER Accidental fall ICD-E888.9 Inactive Ashley Yoku m ELECTRICAL WORKER Contusion of left hand, initial encounter ICD-923.20 Inactive Ashley Yokum ELECTRICAL WORKER Contusion of right upper arm, subsequent encounter ICD-V58.89 Inactive Ashley Yokum ELECTRICAL WORKER Body Mass Index 31.0-31.9 Adult Inac tive Ashley Yokum ELECTRICAL WORKER Bronchitis, acute ICD-466.0 Inactive Ashley Yok um ELECTRICAL WORKER Body Mass Index 30.0-30.9 Adult Inac tive Ashley Yokum ELECTRICAL WORKER Allergic conjunctivitis, bilateral ICD-372.14 I nactive Ashley Yokum ELECTRICAL WORKER Skin tags; irritated/inflammed ICD-701.9 Inact rancho Ashley Yokum ELECTRICAL WORKER Nausea and vomiting ICD-787.01 Inactive Ashley Yokum ELECTRICAL WORKER Gastroenteritis acute ICD-558.9 Inactive Conchis hi Yokum ELECTRICAL WORKER Joint pain ICD-719.40 Inactive Ashley Yokum APR N Preventive health care, adult ICD-V70.0 Inacti ve Ashley Yokum ELECTRICAL WORKER Blood in urine ICD-599.70 Inactive Ashley Yokum ELECTRICAL WORKER Other abnormal findings in urine Sterling ctive Ashley Yokum ELECTRICAL WORKER Urinary tract infection ICD-599.0 Inactive K athi Yokum ELECTRICAL WORKER Chafing of skin ICD-709.8 Inactive Ashley Yokum ELECTRICAL WORKER Gynecological examination, routine ICD-V72.3 I nactive Ashley Yokum ELECTRICAL WORKER Near syncope ICD-780.2 Inactive Ashley Yokum AP RN Lightheadedness ICD-780.4 Inactive Ashley Yokum ELECTRICAL WORKER Headache ICD-784.0 Inactive Ashley Yokum ELECTRICAL WORKER 2020 Sore throat ICD-462 Inactive Ashley Yokum ELECTRICAL WORKER 02/17/17 Sinusitis - acute ICD-461.9 Inactive Ashley Yok um ELECTRICAL WORKER Tired all the time ICD-780.79 Inactive Ashley Y abdonum ELECTRICAL WORKER Fatigue ICD-780.79 Inactive Ashley Yoеленаum ELECTRICAL WORKER 2020 Medication List Medication Instructions Start Date Stop Date Generic Name NDC Status Provider Patient Instruction PHENTERMINE HCL 37.5 MG TABS 1/2 TAB IN MORING, CAN IN CREASE TO 1 TAB IN MORING. TAKE 30 MIN BEFORE BREAKFAST OR 2 HRS AFTER BREAKFAST PHENTERMINE HCL 37756426262 Active Shanelle Rivera RN Active EQ LORATADINE 10 MG ORAL TABLET TAKE 1 TABLET BY MOUTH ONCE DAILY NEEDED FOR ALLERGIES LORATADINE 28633579754 Active Shanelle Rivera RN Active ALPRAZOLAM 0.25 MG TABS TAKE 1 TO 2 TABLETS BY MOUTH THREE TIMES DAILY NEEDED ALPRAZOLAM 91989433201 Active Shanelle Rivera RN Active MUCINEX D 60-600 MG ORAL TABLET EXTENDED RELEASE 12 HO UR 1 po BID PRN Congestion PSEUDOEPHEDRINE-GUAIFENESIN 11330765362 Active Ashley Yokum ELAINA Active ZYRTEC ALLERGY 10 MG ORAL CAPSULE 1qd CETIR IZINE HCL 30615069182 No Longer Active Ashley Yokum ELECTRICAL WORKER Active HAIR, SKIN, NAILS VITAMINS take 1 tab by mouth 2x a day HAIR, SKIN, NAILS VITAMINS Active Ashley Yokum ELECTRICAL WORKER Active CENTRUM SILVER FOR WOMEN OVER 50 1 tab by mouth by day. CENTRUM SILVER FOR WOMEN OVER 50 Active Ashley Yokum ELECTRICAL WORKER Active VITAMIN D3 1000 UNIT ORAL CAPSULE 1 po qd CH OLECALCIFEROL 97751079331 Active Ashley Yokum ELECTRICAL WORKER Active PREDNISONE 20 MG ORAL TABLET Take 2 tablets by mouth d aily for 2 days then 1 tablet daily for 2 days. PREDNISONE 00556035626 No Longer Active Ashley Merazum ELAINA Active MELOXICAM 15 MG ORAL TABLET TAKE 1 TABLET BY MOUTH IN THE MORNING 2 MELOXICAM 51923008402 Active Shanelle Rivera RN Active SIMVASTATIN 40 MG ORAL TABLET TAKE 1 TABLET BY MOUTH ONCE DA JAVON AT BEDTIME SIMVASTATIN 68466137422 Active RENATA MurilloA Active [id number] ORAL TABLET MULT IPLE MINERALS 63382402538 Active Lois Faith RN Active SERTRALINE HCL 100 MG ORAL TABLET Take 1 tablet by mouth once da javon SERTRALINE HCL 20179216429 Active RENATA MurilloA A ctive REGLAN 10 MG ORAL TABLET 1 po qid for bowels 3 METOCLOPRAMIDE HCL 37145436420 No Longer Active Ashleykaleigh Yang APRN A ctive ADK [id number] UNIT-MCG ORAL CAPSULE 1 daily VITAMINS A D K 24249170594 Active Ashley Ktum ELAINA Active B-12 2500 MCG ORAL TABLET 1 daily CYANOCOBAL HUNT 34529962351 No Longer Active Ashley Celia DELANEY Active ESTRADIOL 2 MG TABS Take 1 tablet by mouth once daily ESTRADIOL 69680855442 Active Shanelle Rivera RN Active MACROBID 100 MG ORAL CAPSULE 1 cap by mouth twice daily NITROFURANTOIN MONOHYD MACRO 11651229864 No Longer Active Ashley Ktum ELAINA Active FISH OIL + D3 3071-1074 MG-UNIT ORAL CAPSULE 1 dailly 4 FISH OIL-CHOLECALCIFEROL 73236391660 Active Ashley Clarkekum ELECTRICAL WORKER Acti ve PROAIR HFA 108 (90 BASE) MCG/ACT INHALATION AEROSOL SO LUTION 2 puffs four times a day as needed ALBUTEROL SULFATE 34943242170 No Long er Active Ashley Yokum ELAINA Active ZITHROMAX Z-SANJANA 250 MG ORAL TABLET Take 2 tablets toda y and 1 each day till gone AZITHROMYCIN 56725123775 No Longer Active Ashley Yokum ELECTRICAL WORKER Active POLYTRIM 92488-8.1 UNIT/ML-% OPHTHALMIC SOLUTION 1 gtt to affected eye q3h x 7 days POLYMYXIN B-TRIMETHOPRIM 18107575272 No Longer Active Ashley Yokum ELECTRICAL WORKER Active IBUPROFEN 200 MG ORAL TABLET Take 3 tablets every 6hrs 201 09/17/15 IBUPROFEN 10964505554 No Longer Active Ashley Yokum ELECTRICAL WORKER Active DIFLUCAN 150 MG ORAL TABLET Take one tablet today and repeat in 72 hours FLUCONAZOLE 89216820341 No Longer Active Derrick cardenas MD Active DIFLUCAN 150 MG ORAL TABLET 1 by mouth for yeast 03/03 FLUCONAZOLE 63935162785 No Longer Active Ashley Yokum ELECTRICAL WORKER Active AUGMENTIN 875-125 MG ORAL TABLET Take one tablet twice a day with food AMOXICILLIN-POT CLAVULANATE 45319027490 No Longer Act rancho Ashley Yokum ELECTRICAL WORKER Active CALCIUM 600 + D 600-200 MG-UNIT ORAL TABLET Take one daily CALCIUM CARB-CHOLECALCIFEROL 17352434562 No Longer Active Ashley Yokum ELECTRICAL WORKER Active FLONASE 50 MCG/ACT NASAL SUSPENSION 1 spray each nostr il twice daily for allergies and runny nose FLUTICASONE PROPIONATE 29620115951 No Longer Active Ashley Yokum ELECTRICAL WORKER Active CLARITIN-D 12 HOUR 5-120 MG ORAL TABLET EXTENDED RELEA SE 12 HOUR Take one tablet BID as needed for allergies LORATADINE-PSEUDOEP HEDRINE 58657192009 No Longer Active Beth Nafgeeta UI DEVELOPER WITH ANGULAR JS Active AMOXICILLIN-POT CLAVULANATE 875-125 MG ORAL TABLET 1 pill by mouth twice daily AMOXICILLIN-POT CLAVULANATE 74098236133 No Longer Act rancho Ashley Yokum ELECTRICAL WORKER Active AMOXICILLIN 500 MG ORAL CAPSULE Take 1 capsule by mout h three times a day X 10 days AMOXICILLIN 72566562792 No Longer Active Wayne Denys paul PA Active PROBIOTIC DAILY ORAL CAPSULE Take one daily PROBIO TIC PRODUCT 81984243016 Active Wayne Red PA Active TYLENOL 325 MG ORAL TABLET Take 2 every 6hrs prn A CETAMINOPHEN 64395094977 Active Wayne Red PA Active ACETAMINOPHEN 500 MG ORAL TABLET prn RICH TAMINOPHEN 28793862346 No Longer Active Wayne Harms PA Active CLARITIN-D 12 HOUR 5-120 MG ORAL TABLET EXTENDED RELEA SE 12 HOUR Take one tablet bid LORATADINE-PSEUDOEPHEDRINE 67510609913 No Longe r Active Wayne Harms PA Active MOBIC 15 MG ORAL TABLET 1 tablet by mouth daily in am with PPI 2 MELOXICAM 16539517401 No Longer Active Wayne Harms PA Acti ve HYDROCORTISONE 2.5 % EXTERNAL CREAM Apply three times a day to affected area HYDROCORTISONE 84915646565 No Longer Active Wayne Harms PA Active VITAMIN D3 1000 UNIT ORAL TABLET Take two daily CHOLECALCIFEROL 56828009787 No Longer Active Wayne Harms PA Active PROBIOTIC ORAL CAPSULE Take one daily PROBIOTIC PRODUCT 00117128698 No Longer Active Wayne Harms PA Active GREEN TEA SLIM ORAL TABLET Take one daily [facility] NATURAL PRODUCTS 38860463432 No Longer Active Wayne Harms PA Active BENZONATATE 200 MG ORAL CAPSULE Take one capsule three times a d ay BENZONATATE 42920287626 No Longer Active Wayne Harms PA Act rancho ZITHROMAX Z-SANJANA 250 MG ORAL TABLET 2 today, then 1 daily for 4 d ays AZITHROMYCIN 97752371040 No Longer Active Wayne Harms PA Ac tive ZITHROMAX 250 MG ORAL TABLET 2 po today, then 1 po q days 2-5 20 31/03/18 AZITHROMYCIN 89491586736 No Longer Active Beth Turner UI DEVELOPER WITH ANGULAR JS Active OMEPRAZOLE 20 MG ORAL CAPSULE DELAYED RELEASE 1 tablet by mo [facility] daily OMEPRAZOLE 41750376393 Active Supriya Huston RMA Active ZITHROMAX Z-SANJANA 250 MG ORAL TABLET 2x1day,[id number] 2014 AZITHROMYCIN 14120845152 No Longer Active Wayne Harms PA Active FISH OIL 1200 MG ORAL CAPSULE One daily prn OME GA-3 FATTY ACIDS 20515687887 No Longer Active Wayne Harms PA Active CEPHALEXIN 250 MG ORAL CAPSULE Take one tablet qid 201 05/25/29 CEPHALEXIN 83158834243 No Longer Active Wayne Harms PA Active VITAMIN D3 1000 UNIT ORAL TABLET 1qd CHOLEC ALCIFEROL 43761683753 No Longer Active Wayne Harms PA Active B-12 2000 MCG ORAL TABLET 1qd CYANOCOBALAMI N 77217102106 No Longer Active Wayne Harms PA Active ACIPHEX 20 MG ORAL TABLET DELAYED RELEASE 1qd 10/28 RABEPRAZOLE SODIUM 61928903610 No Longer Active Wayne Harms PA Active HYDROCORTISONE 2.5 % EXTERNAL CREAM apply 3-4 times a day to affected area HYDROCORTISONE 03262140844 No Longer Active Wayne Harms PA Active MUCINEX 600 MG ORAL TABLET EXTENDED RELEASE 12 HOUR 2qd GUAIFENESIN 61774535255 No Longer Active Wayne Harms PA Active TUSSIONEX PENNKINETIC ER 10-8 MG/5ML ORAL SUSPENSION E XTENDED RELEASE 5ml po q12hr PRN Cough HYDROCOD POLST-CHLORPHEN POLST 5 4307592154 No Longer Active Wayne Harms PA Active ZITHROMAX 250 MG ORAL TABLET 2 po today, then 1 po q days 2-5 20 26/06/21 AZITHROMYCIN 43241804493 No Longer Active Wayne Harms PA Ac tive CLARITIN 10 MG ORAL TABLET one tablet daily THEO ATADINE 47675682775 No Longer Active Wayne Harms PA Active FLAGYL 500 MG ORAL TABLET 1 tablet by mouth three times daily 20 28/05/03 METRONIDAZOLE 41807551522 No Longer Active Awyne Harms PA A ctive CHERATUSSIN AC 100-10 MG/5ML ORAL SYRUP one teaspoon qid. 9 GUAIFENESIN-CODEINE 21838107012 No Longer Active Wayne Harms PA Act rancho VITAMIN D 1000 UNIT ORAL TABLET 1qd CHOLECA LCIFEROL 10328227894 No Longer Active Wayne Harms PA Active CYMBALTA 60 MG ORAL CAPSULE DELAYED RELEASE PARTICLES 1 cap by mouth daily DULOXETINE HCL 78163956003 No Longer Active Wayne Harms PA Active AMOXICILLIN 500 MG ORAL CAPSULE 2 caps tid for 10days AMOXICILLIN 03495196716 No Longer Active Wayne Harms PA Active CALCIUM + D 600-200 MG-UNIT TABS Take one by mouth daily CALCIUM CARBONATE-VITAMIN D 28516728107 No Longer Active Wayne Harms PA Active CENTRUM SILVER ADULT 50+ ORAL TABLET 1qd 2013 MULTIPLE VITAMINS-MINERALS 42790893386 No Longer Active Wayne Harms PA Active VENLAFAXINE HCL 75 MG ORAL TABLET 1tid VE NLAFAXINE HCL 36198495305 No Longer Active Wayne Harms PA Active CLARITIN 10 MG ORAL TABLET 1 tablet by mouth daily as needed for allergies LORATADINE 20399179171 No Longer Active Wayne Harms PA Acti ve HYDROCORTISONE 2.5 % EXTERNAL CREAM Apply four times a day to af fected area HYDROCORTISONE 91208108452 No Longer Active Wayne Harms PA Active ZITHROMAX 250 MG ORAL TABLET 2 po today, then 1 po q days 2-5 20 26/02/30 AZITHROMYCIN 87287875424 No Longer Active Wayne Harms PA Ac tive ZITHROMAX 250 MG ORAL TABLET 2 po today, then 1 po q days 2-5 20 27/02/16 AZITHROMYCIN 41814392268 No Longer Active Wayne Harms PA Ac tive CYMBALTA 30 MG ORAL CAPSULE DELAYED RELEASE PARTICLES 3 caps daily DULOXETINE HCL 96928080537 No Longer Active Wayne Harms PA Active CYMBALTA 60 MG ORAL CAPSULE DELAYED RELEASE PARTICLES one tablet daily, takes 30mg. with 60mg. to make 90 mg. DULOXETINE HCL 25556287828 No Longer Active Wayne Harms PA Active CYMBALTA 30 MG ORAL CAPSULE DELAYED RELEASE PARTICLES 1 daily wi th 60mg DULOXETINE HCL 89648150265 No Longer Active Wayne Harms PA Active ZITHROMAX 250 MG ORAL TABLET 2 po today, then 1 po q days 2-5 20 26/12/21 AZITHROMYCIN 30053275138 No Longer Active Ismael YANG Active PREDNISONE 20 MG ORAL TABLET 3tab x 2days,2tab x 2days ,1tab x 2days,1/2tab x 2days PREDNISONE 83027275376 No Longer Active Wayne Vera jarvis PA Active PREMARIN 0.625 MG ORAL TABLET Take one by mouth daily ESTROGENS CONJUGATED 62419798181 No Longer Active Wayne Harms PA Active ZITHROMAX 250 MG ORAL TABLET 2 po today, then 1 po q days 2-5 20 26/06/19 AZITHROMYCIN 77484517077 No Longer Active Nereyda Lucke Activ e OMEGA-3 1000 MG ORAL CAPSULE 2qd OMEGA-3 FA TTY ACIDS 65997364829 No Longer Active Wayne Harms PA Active BENADRYL ITCH STOPPING 1-0.1 % EXTERNAL CREAM prn DIPHENHYDRAMINE- ZINC ACETATE 67614843115 No Longer Active Wayne Harms PA Active LOTRISONE 1-0.05 % EXTERNAL CREAM Apply bid CLOTRIMAZOLE-BETAMETHASONE 49154886825 No Longer Active Wayne Harms PA Active ZITHROMAX Z-SANJANA 250 MG ORAL TABLET take as directed 20 26/04/19 AZITHROMYCIN 87717611346 No Longer Active Wayne Harms PA Active NYSTATIN 813617 UNIT/GM EXTERNAL POWDER Apply to affected areas BID NYSTATIN 06606094026 No Longer Active Wayne Harms PA Acti ve BENADRYL 25 MG ORAL CAPSULE prn DIPHENHYDRAMINE HCL 50667748516 Active Wayne Harms PA Active LOTRISONE 1-0.05 % EXTERNAL CREAM apply twice a day 20 25/02/17 CLOTRIMAZOLE-BETAMETHASONE 93191495258 No Longer Active Wayne Harms PA Active HYDROCODONE-ACETAMINOPHEN 5-325 MG ORAL TABLET 1-2 every 4hr s prn pain HYDROCODONE-ACETAMINOPHEN 14233229949 No Longer Activ e Wayne Harms PA Active VICODIN 5-300 MG ORAL TABLET 1-2 tabs every 6hrs as needed for p ain HYDROCODONE-ACETAMINOPHEN 76184936635 No Longer Active Wayne Harms PA Active BENADRYL 25 MG ORAL CAPSULE 1prn DIPHENHYDRA MINE HCL 81138429451 No Longer Active Jillina Frazell ELECTRICAL WORKER Active ROBITUSSIN DM 100-10 MG/5ML ORAL SYRUP 2 teaspoons four times a day DEXTROMETHORPHAN-GUAIFENESIN 50004408889 No Longer Active Jillina Frazell ELECTRICAL WORKER Active ACIPHEX 20 MG ORAL TABLET DELAYED RELEASE Take one by mouth daily RABEPRAZOLE SODIUM 59994929142 No Longer Active Jillina Frazell ELECTRICAL WORKER Active TUMS 500 MG ORAL TABLET CHEWABLE prn SADIQ CIUM CARBONATE ANTACID 84004185673 No Longer Active Jillina Frazell ELECTRICAL WORKER Active PEPTO-BISMOL 524 MG/30ML ORAL SUSPENSION prn 02/26 BISMUTH SUBSALICYLATE 46010244958 No Longer Active Jillina Frazell ELECTRICAL WORKER Active BACTRIM DS 800-160 MG ORAL TABLET 1bid SULFAMETHOXAZOLE-TRIMETHOPRIM 75678836209 No Longer Active Beth Naff UI DEVELOPER WITH ANGULAR JS Active GAVISCON EXTRA RELIEF FORMULA CHEW prn A LUM HYDROXIDE-MAG CARBONATE CHEW 54207609045 Active Wayne Harms PA Active DIFLUCAN 150 MG ORAL TABLET 1stat FLUCONAZOL E 29667778399 No Longer Active Wayne Harms PA Active AUGMENTIN 875-125 MG ORAL TABLET 1 tab by mouth twice daily with food AMOXICILLIN-POT CLAVULANATE 82806713404 No Longer Act rancho Wayne Harms PA Active FLUTICASONE PROPIONATE 50 MCG/ACT NASAL SUSPENSION 1 t o 2 sprays each nostril twice a day FLUTICASONE PROPIONATE 89241161255 No Lo nger Active Wayne Harms PA Active HYDROCORTISONE 2.5 % EXTERNAL CREAM apply 2-4 times a day, a s directed, prn HYDROCORTISONE 74990047470 No Longer Active Wayne Harms PA Active ZITHROMAX Z-SANJANA 250 MG ORAL TABLET A ZITHROMYCIN 06774833473 No Longer Active Wayne Harms PA Active SIMVASTATIN 40 MG ORAL TABLET one tablet daily SIMVASTATIN 57270472008 No Longer Active Misty Yoo UI DEVELOPER WITH ANGULAR JS Active LOVASTATIN 40 MG ORAL TABLET Take one by mouth daily 12/11 LOVASTATIN 68702505827 No Longer Active Misty Yoo UI DEVELOPER WITH ANGULAR JS Active PREDNISONE 20 MG ORAL TABLET 2 PO qd x 2d, 1 PO qd x 2d, 1/2 PO qd x 2d PREDNISONE 99276459144 No Longer Active Ismael silva PA Active ZITHROMAX 250 MG ORAL TABLET two tablets now and one daily x 4 d ays AZITHROMYCIN 00782704729 No Longer Active Misty Yoo UI DEVELOPER WITH ANGULAR JS Active ZOLPIDEM TARTRATE 10MG TABS (ZOLPIDEM TARTRATE) 1 at bedtime as needed Active Supriya Betzaida RMA Active CLOBETASOL PROPIONATE 0.05 % EXTERNAL CREAM apply as directed CLOBETASOL PROPIONATE 53784502314 No Longer Active Wayne Harms PA A ctive CYMBALTA 30 MG ORAL CAPSULE DELAYED RELEASE PARTICLES takes 90mg qod alt with 60mg DULOXETINE HCL 94756147011 No Longer Active Wayne Harm s PA Active ZITHROMAX 250 MG ORAL TABLET 2 po today, then 1 po q days 2-5 20 12/24/14 AZITHROMYCIN 61848998598 No Longer Active Wayne Harms PA Ac tive TRIAMCINOLONE ACETONIDE 0.1 % EXTERNAL CREAM apply qid TRIAMCINOLONE ACETONIDE 27482378815 No Longer Active Wayne Harms PA Active ALPRAZOLAM 0.25 MG ORAL TABLET 1 tab three times a day 201 02/23/14 ALPRAZOLAM 14569675657 No Longer Active Wayne Harms PA Active ZOLPIDEM TARTRATE 5 MG ORAL TABLET 1 at bedtime as needed ZOLPIDEM TARTRATE 73886780657 No Longer Active Beth Turner UI DEVELOPER WITH ANGULAR JS Active ALPRAZOLAM 0.25 MG ORAL TABLET 1 tab three times a day ALPRAZOLAM 0.25 MG ORAL TABLET 377324 ALPRAZOLAM Inactive TRIAMCINOLONE ACETONIDE 0.1 % EXTERNAL CREAM apply qid TRIAMCINOLONE ACETONIDE 0.1 % EXTERNAL CREAM 8153782 TRIAMCINOLONE A CETONIDE Inactive CYMBALTA 30 MG ORAL CAPSULE DELAYED RELEASE PARTICLES takes 90mg qod alt with 60mg CYMBALTA 30 MG ORAL CAPSULE DELAYED RELEA SE PARTICLES 379527 DULOXETINE HCL Inactive CLOBETASOL PROPIONATE 0.05 % EXTERNAL CREAM apply as directed CLOBETASOL PROPIONATE 0.05 % EXTERNAL CREAM 108945 CLOBETASOL PROPI KELVIN Inactive LOVASTATIN 40 MG ORAL TABLET Take one by mouth daily 2 LOVASTATIN 40 MG ORAL TABLET 110966 LOVASTATIN Inactive ZITHROMAX Z-SANJANA 250 MG ORAL TABLET 03/03 ZITHROMAX Z-SANJANA 250 MG ORAL TABLET 463233 AZITHROMYCIN Inactive HYDROCORTISONE 2.5 % EXTERNAL CREAM apply 2-4 times a day, a s directed, prn HYDROCORTISONE 2.5 % EXTERNAL CREAM 115916 HYDRO CORTISONE Inactive FLUTICASONE PROPIONATE 50 MCG/ACT NASAL SUSPENSION 1 t o 2 sprays each nostril twice a day FLUTICASONE PROPIONA TE 50 MCG/ACT NASAL SUSPENSION 8929462 FLUTICASONE PROPIONATE Inactive AUGMENTIN 875-125 MG ORAL TABLET 1 tab by mouth twice daily with food AUGMENTIN 875-125 MG ORAL TABLET AMOXICIL BLOSSOM-POT CLAVULANATE Inactive DIFLUCAN 150 MG ORAL TABLET 1stat DIFLUCAN 150 MG ORAL TABLET 549493 FLUCONAZOLE Inactive PEPTO-BISMOL 524 MG/30ML ORAL SUSPENSION prn PEPTO-BISMOL 524 MG/30ML ORAL SUSPENSION BISMUTH SUBSALICYLATE Inactive TUMS 500 MG ORAL TABLET CHEWABLE prn TUMS 500 MG ORAL TABLET CHEWABLE 026671 CALCIUM CARBONATE ANTACID Inactive ACIPHEX 20 MG ORAL TABLET DELAYED RELEASE Take one by mouth daily ACIPHEX 20 MG ORAL TABLET DELAYED RELEASE 315075 RABEPRAZOLE SODIUM Inactive ROBITUSSIN DM 100-10 MG/5ML [...] pain HYDROCODONE-ACETAMINOPHEN 5-325 MG ORAL TABLET 8 25579 HYDROCODONE-ACETAMINOPHEN Inactive LOTRISONE 1-0.05 % EXTERNAL CREAM apply twice a day 20 25/02/17 LOTRISONE 1- 0.05 % EXTERNAL CREAM CLOTRIMAZOLE-BETAMETHASONE Inactive NYSTATIN 535482 UNIT/GM EXTERNAL POWDER Apply to affected areas BID NYSTATIN 425493 UNIT/GM EXTERNAL POWDER 443316 NYSTATIN Inactive ZITHROMAX Z-SANJANA 250 MG ORAL TABLET take as directed 20 26/04/19 ZITHROMAX Z-SANJANA 250 MG ORAL TABLET 309765 AZITHROMYCIN Inact ranch[place] LOTRISONE 1-0.05 % EXTERNAL CREAM Apply bid LOTRISONE 1- 0.05 % EXTERNAL CREAM CLOTRIMAZOLE-BETAMETHASONE Inactive BENADRYL ITCH STOPPING 1-0.1 % EXTERNAL CREAM prn BENADRYL ITCH STOPPING 1-0.1 % EXTERNAL CREAM DIPHENHYDRAMINE-ZINC ACETATE Inactive OMEGA-3 1000 MG ORAL CAPSULE 2qd OMEGA-3 1000 MG ORAL CAPSULE 695488 OMEGA-3 FATTY ACIDS Inactive ZITHROMAX 250 MG ORAL TABLET 2 po today, then 1 po q days 2-5 20 26/06/19 ZITHROMAX 250 MG ORAL TABLET 929271 AZITHROMYCIN Mara ctive PREMARIN 0.625 MG ORAL TABLET Take one by mouth daily PREMARIN 0.625 MG ORAL TABLET ESTROGENS CONJUGATED Inactive PREDNISONE 20 MG ORAL TABLET 3tab x 2days,2tab x 2days ,1tab x 2days,1/2tab x 2days PREDNISONE 20 MG ORAL TABLET 086923 PREDNIS ONE Inactive CYMBALTA 30 MG ORAL CAPSULE DELAYED RELEASE PARTICLES 1 daily wi th 60mg CYMBALTA 30 MG ORAL CAPSULE DELAYED RELEASE PARTICLES 979123 DULOXETINE HCL Inactive CYMBALTA 60 MG ORAL CAPSULE DELAYED RELEASE PARTICLES one tablet daily, takes 30mg. with 60mg. to make 90 mg. CYMBALTA 60 MG ORAL CAPSULE DELAYED RELEASE PARTICLES 031401 DULOXETINE HCL Inacti ve CYMBALTA 30 MG ORAL CAPSULE DELAYED RELEASE PARTICLES 3 caps daily CYMBALTA 30 MG ORAL CAPSULE DELAYED RELEASE PARTICLES 664130 DULOXE ROSANNE HCL Inactive HYDROCORTISONE 2.5 % EXTERNAL CREAM Apply four times a day to af fected area HYDROCORTISONE 2.5 % EXTERNAL CREAM 751017 HYDROCORTISO NE Inactive CLARITIN 10 MG ORAL TABLET 1 tablet by mouth daily as needed for allergies CLARITIN 10 MG ORAL TABLET 079448 LORATADINE Inact rancho VENLAFAXINE HCL 75 MG ORAL TABLET 1tid VENLAFAXINE HCL 75 MG ORAL TABLET 226573 VENLAFAXINE HCL Inactive CENTRUM SILVER ADULT 50+ ORAL TABLET 1qd 2013 CENTRUM SILVER ADULT 50+ ORAL TABLET MULTIPLE VITAMINS-MINERALS Inactive CALCIUM + D 600-200 MG-UNIT TABS Take one by mouth daily CALCIUM + D 600-200 MG-UNIT TABS CALCIUM CARBONATE-VITAMIN D Inactive AMOXICILLIN 500 MG ORAL CAPSULE 2 caps tid for 10days AMOXICILLIN 500 MG ORAL CAPSULE 718790 AMOXICILLIN Inactive CYMBALTA 60 MG ORAL CAPSULE DELAYED RELEASE PARTICLES 1 cap by mouth daily CYMBALTA 60 MG ORAL CAPSULE DELAYED RELE ASE PARTICLES 410457 DULOXETINE HCL Inactive VITAMIN D 1000 UNIT ORAL TABLET 1qd 4 VITAMIN D 1000 UNIT ORAL TABLET CHOLECALCIFEROL Inactive CHERATUSSIN AC 100-10 MG/5ML ORAL SYRUP one teaspoon qid. 9 CHERATUSSIN AC 100-10 MG/5ML ORAL SYRUP GUAIFENESIN-CODEINE Inactive FLAGYL 500 MG ORAL TABLET 1 tablet by mouth three times daily 20 28/05/03 FLAGYL 500 MG ORAL TABLET 377812 METRONIDAZOLE Inacti ve CLARITIN 10 MG ORAL TABLET one tablet daily CLARITIN 10 MG ORAL TABLET 732010 LORATADINE Inactive TUSSIONEX PENNKINETIC ER 10-8 MG/5ML [...] affected area HYDROCORTISONE 2.5 % EXTERNAL CREAM 352926 HYDRO CORTISONE Inactive ACIPHEX 20 MG ORAL TABLET DELAYED RELEASE 1qd ACIPHEX 20 MG ORAL TABLET DELAYED RELEASE 624801 RABEPRAZOLE SODIUM Inactive B-12 2000 MCG ORAL TABLET 1qd B-12 2000 MCG ORAL TABLET CYANOCOBALAMIN Inactive VITAMIN D3 1000 UNIT ORAL TABLET 1qd VITAMIN D3 1000 UNIT ORAL TABLET CHOLECALCIFEROL Inactive CEPHALEXIN 250 MG ORAL CAPSULE Take one tablet qid 201 05/25/29 CEPHALEXIN 250 MG ORAL CAPSULE 311474 CEPHALEXIN Inactive FISH OIL 1200 MG ORAL CAPSULE One daily prn FISH OIL 1200 MG ORAL CAPSULE OMEGA-3 FATTY ACIDS Inactive ZITHROMAX Z-SANJANA 250 MG ORAL TABLET 2x1day,6q0emxn 2014 ZITHROMAX Z-SANJANA 250 MG ORAL TABLET 814955 AZITHROMYCIN Inact ranch[place] BENZONATATE 200 MG ORAL CAPSULE Take one capsule three times a d ay BENZONATATE 200 MG ORAL CAPSULE 144164 BENZONATATE Inactive GREEN TEA SLIM ORAL TABLET Take one daily GREEN TEA SLIM ORAL TABLET MISC NATURAL PRODUCTS Inactive PROBIOTIC ORAL CAPSULE Take one daily PROBIOTIC ORAL CAPSULE 5586344 PROBIOTIC PRODUCT Inactive VITAMIN D3 1000 UNIT ORAL TABLET Take two daily 05/05 VITAMIN D3 1000 UNIT ORAL TABLET CHOLECALCIFEROL Inactive HYDROCORTISONE 2.5 % EXTERNAL CREAM Apply three times a day to affected area HYDROCORTISONE 2.5 % EXTERNAL CREAM 405628 HYDRO CORTISONE Inactive MOBIC 15 MG ORAL TABLET 1 tablet by mouth daily in am with PPI 2 MOBIC 15 MG ORAL TABLET 013169 MELOXICAM Inactive CLARITIN-D 12 HOUR 5-120 MG ORAL TABLET EXTENDED RELEA SE 12 HOUR Take one tablet bid CLARITIN-D 12 HOUR 5 -120 MG ORAL TABLET EXTENDED RELEASE 12 HOUR LORATADINE-PSEUDOEPHEDRINE Inactive ACETAMINOPHEN 500 MG ORAL TABLET prn ACETAMINOPHEN 500 MG ORAL TABLET 057102 ACETAMINOPHEN Inactive CLARITIN-D 12 HOUR 5-120 MG [...] yeast 03/03 DIFLUCAN 150 MG ORAL TABLET 565140 FLUCONAZOLE Inactive DIFLUCAN 150 MG ORAL TABLET Take one tablet today and repeat in 72 hours DIFLUCAN 150 MG ORAL TABLET 682301 FLUCONAZOLE Inactive IBUPROFEN 200 MG ORAL TABLET Take 3 tablets every 6hrs IBUPROFEN 200 MG ORAL TABLET 259900 IBUPROFEN Inactive ZITHROMAX Z-SANJANA 250 MG ORAL TABLET Take 2 tablets toda y and 1 each day till gone ZITHROMAX Z-SANJANA 250 MG ORAL TABLET 771186 A ZITHROMYCIN Inactive PROAIR HFA 108 (90 [...] bowels 3 REGLAN 10 MG ORAL TABLET 581908 METOCLOPRAMIDE HCL Inactive PREDNISONE 20 MG ORAL TABLET Take 2 tablets by mouth d aily for 2 days then 1 tablet daily for 2 days. PREDNISONE 20 MG ORAL T ABLET 574985 PREDNISONE Inactive ZYRTEC ALLERGY 10 MG ORAL CAPSULE 1qd ZYRTEC ALLERGY 10 MG ORAL CAPSULE CETIRIZINE HCL Inactive ZITHROMAX 250 MG ORAL TABLET 2 po today, then 1 po q days 2-5 20 12/24/14 ZITHROMAX 250 MG ORAL TABLET 694765 AZITHROMYCIN Mara ctive ZITHROMAX 250 MG ORAL TABLET two tablets now and one daily x 4 d ays ZITHROMAX 250 MG ORAL TABLET 411626 AZITHROMYCIN Mara ctive PREDNISONE 20 MG ORAL TABLET 2 PO qd x 2d, 1 PO qd x 2d, 1/2 PO qd x 2d PREDNISONE 20 MG ORAL TABLET 323400 PREDNISONE Inactive SIMVASTATIN 40 MG ORAL TABLET one tablet daily SIMVASTATIN 40 MG ORAL TABLET 703010 SIMVASTATIN Inactive BACTRIM DS 800-160 MG ORAL TABLET 1bid BACTRIM DS 800-160 MG ORAL TABLET 342037 SULFAMETHOXAZOLE-TRIMETHOPRIM Inactive ZITHROMAX 250 MG ORAL TABLET 2 po today, then 1 po q days 2-5 20 26/12/21 ZITHROMAX 250 MG ORAL TABLET 331144 AZITHROMYCIN Mara ctive ZITHROMAX 250 MG ORAL TABLET 2 po today, then 1 po q days 2-5 20 27/02/16 ZITHROMAX 250 MG ORAL TABLET 091053 AZITHROMYCIN [place] ctive ZITHROMAX 250 MG ORAL TABLET 2 po today, then 1 po q days 2-5 20 26/02/30 ZITHROMAX 250 MG ORAL TABLET 941702 AZITHROMYCIN [place] ctive ZITHROMAX 250 MG ORAL TABLET 2 po today, then 1 po q days 2-5 20 26/06/21 ZITHROMAX 250 MG ORAL TABLET 840643 AZITHROMYCIN [place] ctive ZITHROMAX 250 MG ORAL TABLET 2 po today, then 1 po q days 2-5 20 31/03/18 ZITHROMAX 250 MG ORAL TABLET 230949 AZITHROMYCIN [place] ctive ZITHROMAX Z-SANJANA 250 MG ORAL TABLET 2 today, then 1 daily for 4 d ays ZITHROMAX Z-SANJANA 250 MG ORAL TABLET 766120 AZITHROMYCIN Inactive AMOXICILLIN 500 MG ORAL CAPSULE Take 1 capsule by mout h three times a day X 10 days AMOXICILLIN 500 MG ORAL CAPSULE 944922 AMOX ICILLIN Inactive AMOXICILLIN-POT CLAVULANATE 875-125 MG ORAL TABLET 1 pill by mouth twice daily AMOXICILLIN-POT CLAVULANATE 875-125 MG ORAL TABL ET 188077 AMOXICILLIN-POT CLAVULANATE Inactive AUGMENTIN 875-125 MG ORAL TABLET Take one tablet twice a day with food AUGMENTIN 875-125 MG ORAL TABLET AMOXICILLIN-POT CLAVULANATE Inactive POLYTRIM 85440-2.1 UNIT/ML-% OPHTHALMIC SOLUTION 1 gtt to affected eye q3h x 7 days POLYTRIM 26690-9.1 UNIT/ML-% OPH THALMIC SOLUTION 508734 POLYMYXIN B-TRIMETHOPRIM Inactive MACROBID 100 MG ORAL CAPSULE 1 cap by mouth twice daily MACROBID 100 MG ORAL CAPSULE 4926689 NITROFURANTOIN MONOHYD MACRO In active Advance Directives [...] Fluarix, Agriflu(>= 18 yo)) Fluzone (>=3 yrs.) [[id number]] Seasonal influenza vaccine, injectable, containing preservative, for > 3 years old (Afluria, FluLaval, Fluzone, Fluvirin, Fluarix, Agriflu(>= 18 yo)) Fluzone (>3 yrs.) [[id number]] Seasonal influenza vaccine, injectable, containing preservative, for > 3 years old (Afluria, FluLaval, Fluzone, Fluvirin, Fluarix, Agriflu(>= 18 yo)) Fluarix (>3 yrs.) [[id number]] Diagnostic Results Date Name Value Unit Range Description Lab Report: CBC, Comp. Metabolic Panel, Lipid Panel, Magnesium - Chemistry sodium, serum 138 mmol/L 124-782 4471/09/02 carbon dioxide, venous blood 28.0 mmol/L 21.0-32 [...] 0.20 mg/dL 0.00-1.00 cholesterol, serum 228 mg/dL 797-094 0739/09/02 triglyceride, serum, fasting 236 mg/dL 30-200 HDL [...] 0.36-3.74 Encounters Code Encounter Date Provider Facility CPT-28623 [id number] Vst-Est Level III 17:07:11 CDT Jenny Yang [facility] [place] CPT-02451 [id number] Vst-Est Level III 17:51:44 INDUSTRIAL ECOLOGIST [place] [facility] CPT-46516 Level 3 Est. Patient 11:09:39 CDT Viviana Rubio [facility] CPT-95446 [id number] Vst-Est Level IV 09:14:31 CDT Conchis Yang [facility] [place] CPT-67130 [id number] Vst-Est Level III 22:05:50 CDT Jenny Yang [facility] [place] CPT-33786 Level 3 Est. Patient 15:00:02 INDUSTRIAL ECOLOGIST Will jarquin [facility] CPT-94300 Level 2 Est. Patient 13:46:20 CDT Ashley peacock [facility] [place] CPT-36602 Level 2 Est. Patient 13:45:36 CDT Ashley Meraz [facility] [place] CPT-00489 Level 3 Est. Patient 15:52:07 CDT Ashley Meraz [facility] [place] CPT-24627 Level 3 Est. Patient 08:20:37 CDT Ashley Meraz [facility] [place] CPT-34126 Level 3 Est. Patient 15:06:41 CDT [facility] CPT-79765 Level 3 Est. Patient 11:13:21 INDUSTRIAL ECOLOGIST Derrick donaldson [facility] CPT-12269 Level 3 Est. Patient 12:54:25 INDUSTRIAL ECOLOGIST Ashley Meraz [facility] [place] CPT-26089 Level 3 Est. Patient 23:34:49 INDUSTRIAL ECOLOGIST Ashley Meraz [facility] [place] CPT-44025 Level 3 Est. Patient 16:37:09 INDUSTRIAL ECOLOGIST Ashley Meraz [facility] [place] CPT-19571 Level 3 Est. Patient 11:59:30 INDUSTRIAL ECOLOGIST Ashley Meraz [facility] [place] CPT-29214 Level 4 Est. Patient 07:40:13 CDT Wayne delatorre [facility] [place] CPT-99259 Level 4 Est. Patient 08:06:18 CDT Wayne delatorre [facility] [place] [facility] CPT-23126 Level 3 Est. Patient 11:14:45 CDT Wayne delatorre [facility] [place] CPT-95172 Level 3 Est. Patient 10:14:55 CDT Wayne delatorre [facility] [place] CPT-72411 Level 4 Est. Patient 15:23:47 CDT Wayne delatorre [facility] [place] CPT-04172 Level 3 Est. Patient 07:50:51 INDUSTRIAL ECOLOGIST Wayne delatorre PA [facility] CPT-60805 Level 3 Est. Patient 14:47:52 CDT Wayne YANG [facility] CPT-48553 Level 3 Est. Patient 11:28:46 CDT Wayne delatorre PA [facility] CPT-76227 Level 4 Est. Patient 14:48:43 CDT Wayne delatorre PA [facility] CPT-02939 Level 3 Est. Patient 14:10:18 INDUSTRIAL ECOLOGIST Wayne delatorre PA [facility] CPT-11697 Level 3 Est. Patient 16:44:33 INDUSTRIAL ECOLOGIST Wayne delatorre [facility] [place] CPT-28943 Level 4 Est. Patient 08:22:34 INDUSTRIAL ECOLOGIST Wayne delatorre [facility] [place] CPT-07320 Level 4 Est. Patient 07:10:30 CDT Wayne delatorer [facility] [place] CPT-80994 Level 3 Est. Patient 14:50:20 INDUSTRIAL ECOLOGIST Wayne delatorre PA [facility] CPT-34095 Level 3 Est. Patient 09:46:08 INDUSTRIAL ECOLOGIST Zuleika cha APRN [facility] CPT-50500 Level 4 Est. Patient 07:56:24 INDUSTRIAL ECOLOGIST Wayne delatorre [facility] [place] CPT-54747 Level 3 Est. Patient 12:13:53 CDT Ismael Denton [facility] [place] CPT-72498 Level 4 Est. Patient 12:28:51 INDUSTRIAL ECOLOGIST Wayne delatorre [facility] [place] CPT-95250 Level 3 Est. Patient 15:23:42 INDUSTRIAL ECOLOGIST Wayne YANG [facility] CPT-62322 Level 3 Est. Patient 06:34:33 INDUSTRIAL ECOLOGIST Wayne YANG [facility] Procedures Code Procedure Name Date Entry Date Standard Desc ription CPT-59581 Allergy Admin 2 16:06:08 CDT CPT-56155 Allergy Admin 2 16:51:42 CDT CPT-88210 Allergy Admin 2 16:26:50 CDT CPT-28659 Allergy Admin 2 17:02:53 CDT CPT-80059 Allergy Admin 2 16:32:35 CDT CPT-14572 Allergy Admin 2 16:26:27 CDT CPT-J3420 Vitamin B12 1000mcg (Cyanocobalamin) 16:32:13 CDT CPT-43953 Abx/Therapy Injection 16:32:13 CDT CPT-26092 Allergy Admin 2 16:32:12 CDT CPT-12387 Allergy Admin 2 16:05:03 CDT CPT-74606 Allergy Admin 2 16:35:15 CDT CPT-88115 Allergy Admin 2 16:20:41 CDT CPT-62311 Allergy Admin 2 11:25:21 CDT CPT-29024 Allergy Admin 2 15:46:12 CDT CPT-BQ3111L (4274F) Influenza immunization administe red or previously received 17:51:44 INDUSTRIAL ECOLOGIST CPT-84896 Spec Collection and Handling Fee 10:45:[address] CPT-[id number] (4274F) Influenza immunization administe red or previously received 10:20:17 CDT CPT-37710 Prv Med Est Pt 40-64yrs 16:26:57 CDT CPT-76358 Venipuncture Draw Fee 11:08:31 CDT CPT-95077 Magnesium - LAB USE ONLY 11:08:31 CDT 10/15 CPT-78861 TSH - LAB USE ONLY 11:08:31 CDT CPT-03583 Lipid - LAB USE ONLY 11:08:30 CDT 2 CPT-10184 CMP - LAB USE ONLY 11:08:30 CDT CPT-17371 CBC - LAB USE ONLY 11:08:30 CDT CPT-90337 Spec Collection and Handling Fee 16:14:51 C DT CPT-76891 UA w micro - LAB USE ONLY 16:14:51 CDT 2018 CPT-85908 Prv Med Est Pt 40-64yrs 08:34:49 CDT 10/01 CPT-86870 Sed Rate - LAB USE ONLY 10:50:49 CDT 10/02 CPT-85590 TSH - LAB USE ONLY 10:50:49 CDT CPT-38295 Lipid - LAB USE ONLY 10:50:49 CDT 0 CPT-44875 Magnesium - LAB USE ONLY 10:50:49 CDT 10/02 CPT-05056 CMP - LAB USE ONLY 10:50:49 CDT CPT-18225 CBC - LAB USE ONLY 10:50:49 CDT CPT-59541 Venipuncture Draw Fee 10:50:49 CDT CPT-34348 IV Hydration < or = 1 hr 22:05:50 CDT 04/16 CPT-J7030 Normal Saline 1000 mL 22:05:50 CDT CPT-15052 Abx/Therapy Injection 16:31:51 INDUSTRIAL ECOLOGIST CPT-J2950 Phenergan 25 mg 16:31:51 INDUSTRIAL ECOLOGIST CPT-25822 Abx/Therapy Injection 16:39:40 CDT CPT-67282 First Vx - Ix admin via ID I M or jet injects without counseling by physician 16:39:39 CDT CPT-36650 Prv Med Est Pt 40-64yrs 16:33:10 CDT 11/10 CPT-JTINJ Asp/Joint Injection 16:13:36 CDT CPT-47963 Allergy Admin 2 16:54:52 CDT CPT-45376 Allergy Admin 2 16:46:15 CDT CPT-05089 Allergy Admin 2 11:29:09 CDT CPT-64537 Allergy Admin 2 17:05:15 CDT CPT-28624 Allergy Admin 2 12:31:51 CDT CPT-38485 Allergy Admin 2 15:40:56 CDT CPT-31462 CBC - LAB USE ONLY 09:49:24 CDT CPT-40940 CMP - LAB USE ONLY 09:49:24 CDT CPT-44292 Lipid - LAB USE ONLY 09:49:24 CDT 8 CPT-31737 Venipuncture Draw Fee 09:49:24 CDT CPT-17084 Allergy Admin 2 10:46:11 CDT CPT-JTINJ Asp/Joint Injection 09:52:58 CDT CPT-04821 Skin tag rem 1-15 13:46:20 CDT CPT-99835 Knee, right, 3V - XRAY USE ONLY 13:07:09 CD T CPT-99351 Allergy Admin 2 11:56:38 CDT CPT-32652 Allergy Admin 2 12:00:55 CDT CPT-61816 Allergy Admin 2 16:42:13 CDT CPT-52498 Allergy Admin 2 16:27:55 T CPT-89888 Allergy Admin 2 13:24:26 T CPT-56214 Allergy Admin 2 17:17:57 [facility] CPT-92980 Allergy Admin 2 16:23:22 [facility] CPT-92690 Allergy Admin 2 16:26:55 [facility] CPT-94462 Allergy Admin 2 16:32:33 [facility] CPT-97649 Allergy Admin 2 17:43:40 [facility] CPT-53746 Allergy Admin 2 16:26:07 [facility] CPT-89624 Allergy Admin 2 12:31:50 [facility] CPT-53978 Allergy Admin 2 16:40:38 [facility] CPT-96122 Allergy Admin 2 17:07:36 T CPT-G0008 Administration of Influenza Virus Vaccine 17:01:01 CDT CPT-13213 First Vx - Ix admin via ID I M or jet injects without counseling by physician 17:01:01 CDT CPT-95094 Allergy Admin 2 12:06:54 CDT CPT-06579 Allergy Admin 2 17:04:46 CDT CPT-96695 Allergy Admin 2 16:34:48 CDT CPT-47829 Allergy Admin 2 17:04:51 CDT CPT-45758 Allergy Admin 2 16:25:14 CDT CPT-27555 Allergy Admin 2 10:52:02 CDT CPT-95602 Allergy Admin 2 11:45:31 CDT CPT-39583 Allergy Admin 2 12:02:20 CDT CPT-78898 Allergy Admin 2 15:47:29 CDT CPT-56519 Allergy Admin 2 13:25:44 CDT CPT-31402 Allergy Admin 2 10:51:13 CDT CPT-78025 CBC - LAB USE ONLY 10:44:39 CDT CPT-33929 CMP - LAB USE ONLY 10:44:39 CDT CPT-22543 Lipid - LAB USE ONLY 10:44:39 CDT 9 CPT-87433 Venipuncture Draw Fee 10:44:38 CDT CPT-40278 Allergy Admin 2 12:25:22 CDT CPT-58907 Allergy Admin 2 12:41:34 CDT CPT-08910 Allergy Admin 2 15:29:46 CDT CPT-18769 Allergy Admin 2 14:46:53 CDT CPT-05997 Allergy Admin 2 14:16:16 CDT CPT-62750 Allergy Admin 2 16:55:26 CDT CPT-62463 Allergy Admin 2 10:12:02 CDT CPT-49809 Allergy Admin 2 14:53:56 CDT CPT-20118 Allergy Admin 2 17:01:54 CDT CPT-53972 Allergy Admin 2 09:36:02 CDT CPT-67150 Allergy Admin 2 16:53:26 [facility] CPT-24422 Allergy Admin 2 16:59:41 INDUSTRIAL ECOLOGIST CPT-70542 Allergy Admin 2 16:36:44 [facility] CPT-03079 Allergy Admin 2 16:17:16 [facility] CPT-96958 Allergy Admin 2 17:08:10 [facility] CPT-82347 Allergy Admin 2 12:16:08 [facility] CPT-78757 Allergy Admin 2 16:47:30 [facility] CPT-84024 Allergy Admin 2 16:59:44 [facility] CPT-07062 Allergy Admin 2 12:48:53 [facility] CPT-65370 Allergy Admin 2 10:19:48 [facility] CPT-41180 Allergy Admin 2 12:40:17 [facility] CPT-37494 Abx/Therapy Injection 17:21:59 [facility] CPT-56391 First Vx - Ix admin via ID I M or jet injects without counseling by physician 17:21:57 INDUSTRIAL ECOLOGIST CPT-29721 Allergy Admin 2 17:20:12 [facility] CPT-17645 Allergy Admin 2 11:12:50 [facility] CPT-06798 Allergy Admin 2 17:02:39 CDT CPT-67207 BMP - LAB USE ONLY 10:33:02 CDT CPT-67176 CBC - LAB USE ONLY 10:33:02 CDT CPT-88509 Venipuncture Draw Fee 10:33:02 CDT CPT-36923 Abx/Therapy Injection 12:29:08 CDT CPT-94449 Allergy Admin 2 10:39:48 CDT CPT-55148 Allergy Admin 2 10:55:47 CDT CPT-PV Prev. Care Visit 10:10:00 CDT CPT-37738 Allergy Admin 2 11:31:20 CDT CPT-60365 Allergy Admin 2 16:53:45 CDT CPT-47401 Allergy Admin 2 16:36:42 CDT CPT-47007 Allergy Admin 2 16:30:19 CDT CPT-17125 Allergy Admin 2 15:39:35 CDT CPT-57644 Allergy Admin 2 17:51:32 CDT CPT-96336 Allergy Admin 2 11:50:50 CDT CPT-PV Prev. Care Visit 14:09:05 CDT CPT-92109 Allergy Admin 2 13:37:39 CDT CPT-02338 Abx/Therapy Injection 12:17:43 CDT CPT-43236 Venipuncture Draw Fee 10:39:55 CDT CPT-15398 Allergy Admin 2 12:04:53 CDT CPT-37413 Allergy Admin 2 10:04:39 CDT CPT-14423 Allergy Admin 2 12:15:35 CDT CPT-31806 Allergy Admin 2 17:04:36 CDT CPT-49546 Allergy Admin 2 16:25:49 CDT CPT-59744 Allergy Admin 2 17:30:06 CDT CPT-70250 Allergy Admin 2 10:11:48 CDT CPT-29348 Allergy Admin 2 17:06:13 CDT CPT-64354 Abx/Therapy Injection 12:23:07 CDT CPT-J0702 Celestone 12 mg (Betamethasone) 12:23:07 CD T CPT-56120 Venipuncture Draw Fee 10:26:42 CDT CPT-95285 Allergy Admin 2 12:10:01 CDT CPT-04742 Allergy Admin 2 15:13:57 INDUSTRIAL ECOLOGIST CPT-07250 Allergy Admin 2 16:55:22 INDUSTRIAL ECOLOGIST CPT-13893 Allergy Admin 2 10:13:46 INDUSTRIAL ECOLOGIST CPT-98160 Venipuncture Draw Fee 10:06:08 INDUSTRIAL ECOLOGIST CPT-21046 Allergy Admin 2 16:15:41 INDUSTRIAL ECOLOGIST CPT-11198 Allergy Admin 2 16:40:21 INDUSTRIAL ECOLOGIST CPT-48834 Allergy Admin 2 16:31:48 INDUSTRIAL ECOLOGIST CPT-55227 Allergy Admin 2 16:38:26 INDUSTRIAL ECOLOGIST CPT-67159 Allergy Admin 2 16:40:08 INDUSTRIAL ECOLOGIST CPT-53051 Allergy Admin 2 08:34:27 INDUSTRIAL ECOLOGIST CPT-66377 Allergy Admin 2 14:27:45 INDUSTRIAL ECOLOGIST CPT-67365 Destruction bgn lsn up to 14 09:41:27 INDUSTRIAL ECOLOGIST 2 CPT-34078 Allergy Admin 2 17:45:17 INDUSTRIAL ECOLOGIST CPT-19163 Allergy Admin 2 14:59:03 INDUSTRIAL ECOLOGIST CPT-06649 Allergy Admin 2 12:49:42 CDT CPT-20514 Administration single or combination vac cine inc oral 15:01:57 CDT CPT-43724 Fluzone Quadrivalent Intramuscular Suspe nsion 0.5 ML 15:01:57 CDT CPT-42811 Allergy Admin 2 15:07:08 CDT CPT-81610 Allergy Admin 2 15:39:01 CDT CPT-04025 Allergy Admin 2 17:40:11 CDT CPT-96723 Allergy Admin 2 16:07:08 CDT CPT-46736 Allergy Admin 2 16:08:07 CDT CPT-46323 Venipuncture Draw Fee 09:34:29 CDT CPT-97616 Allergy Admin 2 16:27:43 CDT CPT-99305 Allergy Admin 2 15:53:10 CDT CPT-26967 Allergy Admin 2 15:42:29 CDT CPT-94464 Allergy Admin 2 11:26:14 CDT CPT-09758 Allergy Admin 2 10:36:24 CDT CPT-95475 Allergy Admin 2 16:53:37 CDT CPT-08699 Allergy Admin 2 11:21:44 CDT CPT-58895 Allergy Admin 2 10:50:40 CDT CPT-66078 Allergy Admin 2 11:19:11 CDT CPT-08144 Venipuncture Draw Fee 11:12:25 CDT CPT-73225 Allergy Admin 2 11:14:51 CDT CPT-54137 Allergy Admin 2 16:53:11 CDT CPT-35226 Allergy Admin 2 11:45:56 CDT CPT-58080 Allergy Admin 2 12:51:39 CDT CPT-13944 Allergy Admin 2 12:08:56 CDT CPT-14634 Allergy Admin 2 15:29:45 CDT CPT-08155 Allergy Admin 2 16:34:01 CDT CPT-82680 Allergy Admin 2 16:36:46 CDT CPT-59159 Allergy Admin 2 15:19:16 CDT CPT-08545 Allergy Admin 2 16:13:25 CDT CPT-22302 Allergy Admin 2 17:06:17 CDT CPT-30689 Allergy Admin 2 10:42:10 INDUSTRIAL ECOLOGIST CPT-19562 Allergy Admin 2 17:33:16 INDUSTRIAL ECOLOGIST CPT-01073 Allergy Admin 2 10:53:30 INDUSTRIAL ECOLOGIST CPT-74018 Allergy Admin 2 14:18:24 INDUSTRIAL ECOLOGIST CPT-10366 Allergy Admin 2 10:18:29 INDUSTRIAL ECOLOGIST CPT-01604 Allergy Admin 2 12:57:40 INDUSTRIAL ECOLOGIST CPT-63337 Allergy Admin 2 16:53:33 INDUSTRIAL ECOLOGIST CPT-23029 Allergy Admin 2 12:43:00 INDUSTRIAL ECOLOGIST CPT-40820 Allergy Admin 2 13:14:09 INDUSTRIAL ECOLOGIST CPT-34442 Pneumovax 23 Injection Injectable 25 MCG /0.5ML 09:51:29 INDUSTRIAL ECOLOGIST CPT-G0009 Administration of Pneumococcal Vaccine 09:51:29 INDUSTRIAL ECOLOGIST CPT-21353 Influenza split virus > age 3 09:51:29 INDUSTRIAL ECOLOGIST CPT-G0008 Administration of Influenza Virus Vaccine 02/23 09:51:29 INDUSTRIAL ECOLOGIST CPT-79653 Venipuncture Draw Fee 10:31:06 CDT CPT-J0702 Celestone 12 mg (Betamethasone) 11:34:17 CD T CPT-22349 Abx/Therapy Injection 11:34:17 CDT CPT-37483 Chest 2V Frontal and Lat 11:31:47 CDT 07/04 CPT-16273 Venipuncture Draw Fee 11:31:47 CDT CPT-84294 Allergy Admin 2 14:31:05 CDT CPT-93538 EKG Trac and Interp 08:42:32 CDT CPT-71421 Chest 2V Frontal and Lat 08:42:32 CDT 05/28 CPT-29159 Venipuncture Draw Fee 08:39:02 CDT CPT-83640 Allergy Admin 2 16:59:09 CDT CPT-53578 Allergy Admin 2 17:06:11 CDT CPT-06359 Allergy Admin 2 16:04:36 CDT CPT-91450 Venipuncture Draw Fee 16:32:44 INDUSTRIAL ECOLOGIST CPT-18026 Venipuncture Draw Fee 10:54:37 INDUSTRIAL ECOLOGIST CPT-61807 Allergy Admin 2 14:53:55 INDUSTRIAL ECOLOGIST CPT-20241 Allergy Admin 2 10:23:58 INDUSTRIAL ECOLOGIST CPT-43529 First Vx Component - Ix admi n via ID IM or jet inj without physician counseling 15:34:26 INDUSTRIAL ECOLOGIST CPT-09988 Fluzone (>=3 yrs.) 15:34:26 INDUSTRIAL ECOLOGIST CPT-60093 Allergy Admin 2 15:56:02 INDUSTRIAL ECOLOGIST CPT-13881 Allergy Admin 2 11:08:58 INDUSTRIAL ECOLOGIST CPT-07264 Allergy Admin 2 10:51:36 INDUSTRIAL ECOLOGIST CPT-96964 Allergy Admin 2 15:38:19 INDUSTRIAL ECOLOGIST CPT-85578 Allergy Admin 2 15:12:46 CDT CPT-65118 Allergy Admin 2 10:28:50 CDT CPT-03366 Allergy Admin 2 16:35:33 CDT CPT-34419 Allergy Admin 2 10:14:18 CDT CPT-35859 Abx/Therapy Injection 09:06:45 CDT CPT-J0702 Celestone 6 mg (Betamethasone) 09:06:45 CDT CPT-64780 Allergy Admin 2 15:51:15 CDT CPT-09283 Allergy Admin 2 10:40:16 CDT CPT-92116 Allergy Admin 2 16:35:55 CDT CPT-00653 Allergy Admin 2 13:12:52 CDT CPT-02546 Allergy Admin 2 16:06:50 CDT CPT-47541 Allergy Admin 2 11:04:24 CDT CPT-66375 Allergy Admin 2 10:44:50 CDT CPT-90101 Allergy Admin 2 15:13:40 CDT CPT-54586 Allergy Admin 2 15:00:03 CDT CPT-71050 Allergy Admin 2 10:37:38 CDT CPT-41130 Venipuncture Draw Fee 09:16:43 INDUSTRIAL ECOLOGIST CPT-28083 Allergy Admin 2 11:15:59 INDUSTRIAL ECOLOGIST CPT-75552 Postop F/U Visit 10:10:52 INDUSTRIAL ECOLOGIST CPT-70717 Allergy Admin 2 13:05:05 INDUSTRIAL ECOLOGIST CPT-87000 Postop F/U Visit 19:45:16 INDUSTRIAL ECOLOGIST CPT-44163 Allergy Admin 2 11:52:35 INDUSTRIAL ECOLOGIST CPT-48945 Allergy Admin 2 10:49:22 INDUSTRIAL ECOLOGIST CPT-OV Office Visit 13:55:55 INDUSTRIAL ECOLOGIST CPT-99734 Allergy Admin 2 12:54:28 INDUSTRIAL ECOLOGIST CPT-OV Office Visit 14:04:48 INDUSTRIAL ECOLOGIST CPT-04858 Venipuncture Draw Fee 10:29:14 INDUSTRIAL ECOLOGIST CPT-42858 Allergy Admin 2 11:24:43 INDUSTRIAL ECOLOGIST CPT-74636 Knee 3V 11:00:12 INDUSTRIAL ECOLOGIST CPT-73177 C-Spine Min 4V 11:00:12 INDUSTRIAL ECOLOGIST CPT-15596 Allergy Admin 2 13:38:40 INDUSTRIAL ECOLOGIST CPT-92195 Venipuncture Draw Fee 11:33:37 CDT CPT-08877 Allergy Admin 2 15:34:37 CDT CPT-47195 Allergy Admin 2 14:11:42 CDT CPT-48681 Administration single or combination vac cine inc oral 12:51:42 CDT CPT-50103 Influenza split virus > age 3 12:51:42 CDT CPT-75388 Allergy Admin 2 11:58:43 CDT CPT-15484 Allergy Admin 2 11:29:32 CDT CPT-13653 Allergy Admin 2 10:55:19 CDT CPT-54536 Allergy Admin 2 12:38:54 CDT CPT-27334 Allergy Admin 2 13:01:47 CDT CPT-71022 Abx/Therapy Injection 12:41:18 CDT CPT-J0702 Celestone 12 mg (Betamethasone) 12:41:18 CD T CPT-99616 Abx/Therapy Injection 16:33:09 CDT CPT-J0702 Celestone 12 mg (Betamethasone) 16:33:09 CD T CPT-46557 Allergy Admin 2 15:49:09 CDT CPT-87371 Allergy Admin 2 12:08:56 CDT CPT-87273 Allergy Admin 2 12:19:10 CDT CPT-28648 Allergy Admin 2 12:46:56 CDT CPT-31313 Allergy Admin 2 15:05:13 CDT CPT-25156 Allergy Admin 2 15:36:20 CDT CPT-29362 Allergy Admin 2 09:58:47 INDUSTRIAL ECOLOGIST CPT-11816 Allergy Admin 2 12:18:06 INDUSTRIAL ECOLOGIST CPT-44451 Allergy Admin 2 10:01:48 INDUSTRIAL ECOLOGIST CPT-15870 Allergy Admin 2 12:17:53 INDUSTRIAL ECOLOGIST CPT-28791 Allergy Admin 2 10:06:44 INDUSTRIAL ECOLOGIST CPT-91729 Allergy Admin 2 10:13:04 INDUSTRIAL ECOLOGIST CPT-66573 Venipuncture Draw Fee 10:09:07 INDUSTRIAL ECOLOGIST CPT-73583 Bone Density 12:24:51 INDUSTRIAL ECOLOGIST CPT-08807 Allergy Admin 2 11:29:41 INDUSTRIAL ECOLOGIST CPT-46493 Allergy Admin 2 16:07:15 INDUSTRIAL ECOLOGIST CPT-66697 Breathing Treatment 06:34:33 INDUSTRIAL ECOLOGIST CPT-J0702 Celestone 12 mg (Betamethasone) 06:34:33 CS T CPT-58674 Abx/Therapy Injection 06:34:33 INDUSTRIAL ECOLOGIST CPT-39113 Breathing Tx 11:07:33 INDUSTRIAL ECOLOGIST CPT-02404 Allergy Admin 2 10:02:33 CDT CPT-41628 Allergy Admin 2 10:02:33 CDT CPT-76065 Allergy Admin 2 15:26:19 CDT CPT-83069 Administration single or combination vac cine inc oral 15:41:12 CDT CPT-53439 Influenza split virus > age 3 15:41:12 CDT
--- OUTSIDE RECORDS SUMMARY | 2020-09-15 14:37 | XMS REPORT | Clinical Summary ---
Author Author Admin, Supriya Zuniga Organization [facility] Address Unknown Phone Unavailable Allergies, [...] medications KNEE PAIN, RIGHT 719.46 Resolved Wayne YAGN Pain in joint involving lower leg KNEE [...] Yang APRN Pruritus vulvae Active Ashley Yokum PROGRAM PROPOSALS COORDINATOR Screening mammogram V76.12 Resolved Ashley Yokum A PRN Other screening mammogram Sinusitis, acute maxillary 461.0 Inactive 7 Ashley Yokum PROGRAM PROPOSALS COORDINATOR Acute maxillary sinusitis Diarrhea, acute 787.91 Resolved Ashley Yokum PROGRAM PROPOSALS COORDINATOR Diarrhea Vaginal candidiasis 112.1 Resolved Ashley Yokum A PRN Candidiasis of vulva and vagina Accidental fall E888.9 Resolved Ashley Yokum PROGRAM PROPOSALS COORDINATOR Unspecified fall Contusion of left hand, initial encounter 923.20 Resol burak Ashley Yokum PROGRAM PROPOSALS COORDINATOR Contusion of hand(s) Contusion of right upper arm, subsequent encounter V58.89 201 09/14/21 Resolved Ashley Yokum PROGRAM PROPOSALS COORDINATOR Encounter for other specified a ftercare Ganglion cyst of left wrist 727.41 Active Derrick Younger MD Ganglion of joint Body Mass Index 31.0-31.9 Adult Resolved 2017 Ashley Yokum PROGRAM PROPOSALS COORDINATOR Body Mass Index 31.0-31.9, adult Plantar fasciitis 728.71 Active Ashley Yokum PROGRAM PROPOSALS COORDINATOR Plantar fascial fibromatosis Bronchitis, acute 466.0 Inactive Ashley Yokum APR N Acute bronchitis Body Mass Index 30.0-30.9 Adult Resolved 2017 Ashley Yokum PROGRAM PROPOSALS COORDINATOR Body Mass Index 30.0-30.9, adult Allergic conjunctivitis, bilateral 372.14 Resolved 2 Ashley Yokum PROGRAM PROPOSALS COORDINATOR Other chronic allergic conjunctivitis Skin tags; irritated/inflammed 701.9 Resolved 11/10 Ashley Yokum PROGRAM PROPOSALS COORDINATOR Unspecified hypertrophic and atrophic co nditions of skin Body Mass Index 31.0-31.9 Adult Refinement 2017 Ashley Yokum PROGRAM PROPOSALS COORDINATOR Body Mass Index 31.0-31.9, adult BMI 30-30.9 Refinement Ashley Yokum PROGRAM PROPOSALS COORDINATOR Body Mass Index 31.0-31.9, adult BMI 31-31.9 Refinement Ashley Yokum PROGRAM PROPOSALS COORDINATOR Body Mass Index 31.0-31.9, adult BMI 32-32.9 Refinement Lois Faith RN Body Mass Index 31.0-31.9, adult BMI 31-31.9 Active Viviana Rubio APRN-Julieta Body Mass Index 31.0-31.9, adult Major depression, recurrent, moderate 296.32 Active Ashley Yokum PROGRAM PROPOSALS COORDINATOR Major depressive disorder, recurrent epi sode, moderate degree Obesity Class I (BMI 30-34.9) Active Ashley Y okum PROGRAM PROPOSALS COORDINATOR Obesity, unspecified Nausea and vomiting 787.01 Resolved Ashley Yokum A PRN Nausea with vomiting Gastroenteritis acute 558.9 Resolved Ashley Yokum PROGRAM PROPOSALS COORDINATOR Other and unspecified noninfectious gastroenteritis and colitis GERD 530.81 Active Ashley Yokum PROGRAM PROPOSALS COORDINATOR E sophageal reflux Joint pain 719.40 Resolved Ashley Yokum PROGRAM PROPOSALS COORDINATOR Pain in joint, site unspecified Preventive health care, adult V70.0 Inactive / Ashley Yokum PROGRAM PROPOSALS COORDINATOR Routine general medical examination at a health care facility Blood in urine 599.70 Resolved Ashley Yokum PROGRAM PROPOSALS COORDINATOR Hematuria, unspecified Other abnormal findings in urine Resolved Ashley Yokum PROGRAM PROPOSALS COORDINATOR Urinary tract infection 599.0 Inactive Ashley Yok um PROGRAM PROPOSALS COORDINATOR Urinary tract infection, site not specified Chafing of skin 709.8 Resolved Ashley Yokum PROGRAM PROPOSALS COORDINATOR Other specified disorders of skin Preventive care V70.0 Active Supriya Huston A Routine general medical examination at a health care facility Gynecological examination, routine V72.3 Inactive 2 Ashley Yokum PROGRAM PROPOSALS COORDINATOR Special investigations and e xaminations - Gynecological examination Near syncope 780.2 Resolved Ashley Yokum PROGRAM PROPOSALS COORDINATOR Syncope and collapse Lightheadedness 780.4 Resolved Ashley Yokum PROGRAM PROPOSALS COORDINATOR Dizziness and giddiness Headache 784.0 Resolved Ashley Yokum PROGRAM PROPOSALS COORDINATOR Headache Sore throat 462 Resolved Ashley Yokum PROGRAM PROPOSALS COORDINATOR Acute pharyngitis Sinusitis - acute 461.9 Resolved Ashley Yokum APR N Acute sinusitis, unspecified Tired all the time 780.79 Resolved Ashley Yokum AP RN Other malaise and fatigue Fatigue 780.79 Inactive Ashley Yokum PROGRAM PROPOSALS COORDINATOR Other malaise and fatigue ABNORMAL WEIGHT GAIN ICD-783.1 Inactive Wayne YANG ALLERGIC RHINITIS ICD-477.9 Inactive Lois Angelo mendieta PROGRAM PROPOSALS COORDINATOR SINUSITIS ICD-473.9 Inactive Lois Deric PROGRAM PROPOSALS COORDINATOR 2012 WHEEZING ICD-786.07 Inactive Lois Deric PROGRAM PROPOSALS COORDINATOR 2012 UPPER RESPIRATORY INFECTION, ACUTE ICD-465.9 I nactive Lois Deric PROGRAM PROPOSALS COORDINATOR NEED FOR DESENSITIZATION TO ALLERGENS ICD-V07.1 8 Inactive Ashley Yokum PROGRAM PROPOSALS COORDINATOR OBESITY ICD-278.00 Inactive Wayne YANG CONTACT DERMATITIS DUE TO POISON ARANZA ICD-692.6 Inactive Lois Leos PROGRAM PROPOSALS COORDINATOR NEED PROPHYLACTIC VACCINATION&INOCULATION FLU ICD-V04.81 Inactive Wayne Harms PA GERD ICD-530.81 Inactive Lois Leos PROGRAM PROPOSALS COORDINATOR 03/22 LONG-TERM (CURRENT) USE OF OTHER MEDICATIONS ICD-V58.69 6 Inactive Wayne Harms PA NECK PAIN ICD-723.1 Inactive Wayne Harms PA 06/15 DEGENERATIVE DISC DISEASE, CERVICAL SPINE ICD-722.4 Inactive Wayne Harms PA SKIN TAG ICD-701.9 Inactive Wayne Harms PA G E R D ICD-530.81 Inactive Lois Leos PROGRAM PROPOSALS COORDINATOR CANDIDIASIS OF SKIN AND NAILS ICD-112.3 Inacti ve Wayne Harms PA AFTERCARE FOLLOW SURGERY MUSCULOSKEL SYSTEM NEC ICD-V58.78 Inactive Wayne Harms PA PHARYNGITIS ICD-462 Inactive Wayne Harms PA 05/03 OTHER SCREENING MAMMOGRAM ICD-V76.12 Inactive Wayne Harms PA DYSPAREUNIA, MILD ICD-625.0 Inactive Wayne Harm s PA CONTACT DERMATITIS DUE TO POISON ARANZA ICD-692.6 Inactive Wayne Harms PA Sinusitis, chronic ICD-473.9 Inactive Ashley Mir yoni PROGRAM PROPOSALS COORDINATOR Myalgia ICD-729.1 Inactive Wayne Harms PA Rheumatoid [...] PA Runny nose ICD-472.0 Inactive Ashley Yang PROGRAM PROPOSALS COORDINATOR Influenza like illness ICD-487.1 Inactive Wayne Moon PA Acute maxillary sinusitis ICD-461.0 Inactive Ashley Yokum PROGRAM PROPOSALS COORDINATOR Preventive health care ICD-V70.0 Inactive Jenny mo Yokum PROGRAM PROPOSALS COORDINATOR Well women exam ICD-V72.3 Inactive Ashley Yokum PROGRAM PROPOSALS COORDINATOR Screening mammogram ICD-V76.12 Inactive Ashley Yokum PROGRAM PROPOSALS COORDINATOR Sinusitis, acute maxillary ICD-461.0 Inactive Ashley Yokum PROGRAM PROPOSALS COORDINATOR Diarrhea, acute ICD-787.91 Inactive Ashley Merazu m PROGRAM PROPOSALS COORDINATOR Vaginal candidiasis ICD-112.1 Inactive Ashley coppolaum PROGRAM PROPOSALS COORDINATOR Accidental fall ICD-E888.9 Inactive Ashley Yoku m PROGRAM PROPOSALS COORDINATOR Contusion of left hand, initial encounter ICD-923.20 Inactive Ashley Yokum PROGRAM PROPOSALS COORDINATOR Contusion of right upper arm, subsequent encounter ICD-V58.89 Inactive Ashley Yokum PROGRAM PROPOSALS COORDINATOR Body Mass Index 31.0-31.9 Adult Inac tive Ashley Yokum PROGRAM PROPOSALS COORDINATOR Bronchitis, acute ICD-466.0 Inactive Ashley Yok um PROGRAM PROPOSALS COORDINATOR Body Mass Index 30.0-30.9 Adult Inac tive Ashley Yokum PROGRAM PROPOSALS COORDINATOR Allergic conjunctivitis, bilateral ICD-372.14 I nactive Ashley Yokum PROGRAM PROPOSALS COORDINATOR Skin tags; irritated/inflammed ICD-701.9 Inact rancho Ashley Yokum PROGRAM PROPOSALS COORDINATOR Nausea and vomiting ICD-787.01 Inactive Ashley Yokum PROGRAM PROPOSALS COORDINATOR Gastroenteritis acute ICD-558.9 Inactive Conchis hi Yokum PROGRAM PROPOSALS COORDINATOR Joint pain ICD-719.40 Inactive Ashley Yokum APR N Preventive health care, adult ICD-V70.0 Inacti ve Ashley Yokum PROGRAM PROPOSALS COORDINATOR Blood in urine ICD-599.70 Inactive Ashley Yokum PROGRAM PROPOSALS COORDINATOR Other abnormal findings in urine [place] ctive Ashley Yokum PROGRAM PROPOSALS COORDINATOR Urinary tract infection ICD-599.0 Inactive K athi Yokum PROGRAM PROPOSALS COORDINATOR Chafing of skin ICD-709.8 Inactive Ashley Yokum PROGRAM PROPOSALS COORDINATOR Gynecological examination, routine ICD-V72.3 I nactive Ashley Yokum PROGRAM PROPOSALS COORDINATOR Near syncope ICD-780.2 Inactive Ashley Yokum AP RN Lightheadedness ICD-780.4 Inactive Ashley Yokum PROGRAM PROPOSALS COORDINATOR Headache ICD-784.0 Inactive Ashley Yokum PROGRAM PROPOSALS COORDINATOR 2020 Sore throat ICD-462 Inactive Ashley Yokum PROGRAM PROPOSALS COORDINATOR 02/17/17 Sinusitis - acute ICD-461.9 Inactive Ashley Yok um PROGRAM PROPOSALS COORDINATOR Tired all the time ICD-780.79 Inactive Ashley coppolaum PROGRAM PROPOSALS COORDINATOR Fatigue ICD-780.79 Inactive Ashley Merazum PROGRAM PROPOSALS COORDINATOR 2020 Medication List Medication Instructions Start Date Stop Date Generic Name NDC Status Provider Patient Instruction PHENTERMINE HCL 37.5 MG TABS 1/2 TAB IN MORING, CAN IN CREASE TO 1 TAB IN MORING. TAKE 30 MIN BEFORE BREAKFAST OR 2 HRS AFTER BREAKFAST PHENTERMINE HCL 82732603566 Active Shanelle Rivera RN Active EQ LORATADINE 10 MG ORAL TABLET TAKE 1 TABLET BY MOUTH ONCE DAILY NEEDED FOR ALLERGIES LORATADINE 39760764008 Active Shanelle Rivera RN Active ALPRAZOLAM 0.25 MG TABS TAKE 1 TO 2 TABLETS BY MOUTH THREE TIMES DAILY NEEDED ALPRAZOLAM 93724445055 Active Shanelle Rivera RN Active MUCINEX D 60-600 MG ORAL TABLET EXTENDED RELEASE 12 HO UR 1 po BID PRN Congestion PSEUDOEPHEDRINE-GUAIFENESIN 11075044606 Active Ashleykaleigh Merazum ELAINA Active ZYRTEC ALLERGY 10 MG ORAL CAPSULE 1qd CETIR IZINE HCL 33299478671 No Longer Active Ashley Yoеленаum PROGRAM PROPOSALS COORDINATOR Active HAIR, SKIN, NAILS VITAMINS take 1 tab by mouth 2x a day HAIR, SKIN, NAILS VITAMINS Active Ashley Yokum PROGRAM PROPOSALS COORDINATOR Active CENTRUM SILVER FOR WOMEN OVER 50 1 tab by mouth by day. CENTRUM SILVER FOR WOMEN OVER 50 Active Ashley Yokum PROGRAM PROPOSALS COORDINATOR Active VITAMIN D3 1000 UNIT ORAL CAPSULE 1 po qd CH OLECALCIFEROL 83569889324 Active Ashley Yokum ELAINA Active PREDNISONE 20 MG ORAL TABLET Take 2 tablets by mouth d aily for 2 days then 1 tablet daily for 2 days. PREDNISONE 39048193042 No Longer Active Ashley Yoеленаum ELAINA Active MELOXICAM 15 MG ORAL TABLET TAKE 1 TABLET BY MOUTH IN THE MORNING 2 MELOXICAM 86747556783 Active Shanelle Rivera RN Active SIMVASTATIN 40 MG ORAL TABLET TAKE 1 TABLET BY MOUTH ONCE DA JAVON AT BEDTIME SIMVASTATIN 34314951651 Active RENATA MurilloA Active [id number] ORAL TABLET MULT IPLE MINERALS 26107214845 Active Lois Faith RN Active SERTRALINE HCL 100 MG ORAL TABLET Take 1 tablet by mouth once da javon SERTRALINE HCL 74842825389 Active RENATA MurilloA A ctive REGLAN 10 MG ORAL TABLET 1 po qid for bowels 3 METOCLOPRAMIDE HCL 52609731823 No Longer Active Ashley Clarkeyoni DELANEY A ctive ADK 3377-1973-387 UNIT-MCG ORAL CAPSULE 1 daily VITAMINS A D K 34085375063 Active Ashley Yokum ELAINA Active B-12 2500 MCG ORAL TABLET 1 daily CYANOCOBAL HUNT 36105098107 No Longer Active Ashley Ktum ELAINA Active ESTRADIOL 2 MG TABS Take 1 tablet by mouth once daily ESTRADIOL 23798195995 Active Shanelle Rivera RN Active MACROBID 100 MG ORAL CAPSULE 1 cap by mouth twice daily NITROFURANTOIN MONOHYD MACRO 38996696813 No Longer Active Ashley Ktum PROGRAM PROPOSALS COORDINATOR Active FISH OIL + D3 3118-1300 MG-UNIT ORAL CAPSULE 1 dailly 4 FISH OIL-CHOLECALCIFEROL 46566202945 Active Ashley Clarkekum PROGRAM PROPOSALS COORDINATOR Acti ve PROAIR HFA 108 (90 BASE) MCG/ACT INHALATION AEROSOL SO LUTION 2 puffs four times a day as needed ALBUTEROL SULFATE 46624630498 No Long er Active Ashley Yokum PROGRAM PROPOSALS COORDINATOR Active ZITHROMAX Z-SANJANA 250 MG ORAL TABLET Take 2 tablets toda y and 1 each day till gone AZITHROMYCIN 69927620207 No Longer Active Ashley Yokum PROGRAM PROPOSALS COORDINATOR Active POLYTRIM 14627-2.1 UNIT/ML-% OPHTHALMIC SOLUTION 1 gtt to affected eye q3h x 7 days POLYMYXIN B-TRIMETHOPRIM 38365306193 No Longer Active Ashley Yokum PROGRAM PROPOSALS COORDINATOR Active IBUPROFEN 200 MG ORAL TABLET Take 3 tablets every 6hrs 201 09/17/15 IBUPROFEN 55248184560 No Longer Active Ashley Yokum PROGRAM PROPOSALS COORDINATOR Active DIFLUCAN 150 MG ORAL TABLET Take one tablet today and repeat in 72 hours FLUCONAZOLE 96205381372 No Longer Active Derrick cardenas MD Active DIFLUCAN 150 MG ORAL TABLET 1 by mouth for yeast 03/03 FLUCONAZOLE 85396730076 No Longer Active Ashley Yokum PROGRAM PROPOSALS COORDINATOR Active AUGMENTIN 875-125 MG ORAL TABLET Take one tablet twice a day with food AMOXICILLIN-POT CLAVULANATE 32394952479 No Longer Act rancho Ashley Yokum PROGRAM PROPOSALS COORDINATOR Active CALCIUM 600 + D 600-200 MG-UNIT ORAL TABLET Take one daily CALCIUM CARB-CHOLECALCIFEROL 65317105977 No Longer Active Ashley Yokum PROGRAM PROPOSALS COORDINATOR Active FLONASE 50 MCG/ACT NASAL SUSPENSION 1 spray each nostr il twice daily for allergies and runny nose FLUTICASONE PROPIONATE 90703804060 No Longer Active Ashley Yokum PROGRAM PROPOSALS COORDINATOR Active CLARITIN-D 12 HOUR 5-120 MG ORAL TABLET EXTENDED RELEA SE 12 HOUR Take one tablet BID as needed for allergies LORATADINE-PSEUDOEP HEDRINE 44406337606 No Longer Active Beth Naff MIXER OPERATOR TABLETS Active AMOXICILLIN-POT CLAVULANATE 875-125 MG ORAL TABLET 1 pill by mouth twice daily AMOXICILLIN-POT CLAVULANATE 46535082400 No Longer Act rancho Ashley Yokum PROGRAM PROPOSALS COORDINATOR Active AMOXICILLIN 500 MG ORAL CAPSULE Take 1 capsule by mout h three times a day X 10 days AMOXICILLIN 76487943023 No Longer Active Wayne YANG Active PROBIOTIC DAILY ORAL CAPSULE Take one daily PROBIO TIC PRODUCT 94413251115 Active Wayne Red PA Active TYLENOL 325 MG ORAL TABLET Take 2 every 6hrs prn A CETAMINOPHEN 41104597007 Active Wayne Red PA Active ACETAMINOPHEN 500 MG ORAL TABLET prn RICH TAMINOPHEN 41211993895 No Longer Active Wayne Harms PA Active CLARITIN-D 12 HOUR 5-120 MG ORAL TABLET EXTENDED RELEA SE 12 HOUR Take one tablet bid LORATADINE-PSEUDOEPHEDRINE 58456227973 No Longe r Active Wayne Harms PA Active MOBIC 15 MG ORAL TABLET 1 tablet by mouth daily in am with PPI 2 MELOXICAM 08075405504 No Longer Active Wayne Harms PA Acti ve HYDROCORTISONE 2.5 % EXTERNAL CREAM Apply three times a day to affected area HYDROCORTISONE 50236246806 No Longer Active Wayne Harms PA Active VITAMIN D3 1000 UNIT ORAL TABLET Take two daily CHOLECALCIFEROL 44624436001 No Longer Active Wayne Harms PA Active PROBIOTIC ORAL CAPSULE Take one daily PROBIOTIC PRODUCT 95082606588 No Longer Active Wayne Harms PA Active GREEN TEA SLIM ORAL TABLET Take one daily [facility] [employer] 76567646832 No Longer Active Wayne Harms PA Active BENZONATATE 200 MG ORAL CAPSULE Take one capsule three times a d ay BENZONATATE 92453345568 No Longer Active Wayne Harms PA Act rancho ZITHROMAX Z-SANJANA 250 MG ORAL TABLET 2 today, then 1 daily for 4 d ays AZITHROMYCIN 22504415834 No Longer Active Wayne Harms PA Ac tive ZITHROMAX 250 MG ORAL TABLET 2 po today, then 1 po q days 2-5 20 31/03/18 AZITHROMYCIN 14536838635 No Longer Active Beth Turner MIXER OPERATOR TABLETS Active OMEPRAZOLE 20 MG ORAL CAPSULE DELAYED RELEASE 1 tablet by mo [facility] daily OMEPRAZOLE 60047656969 Active Supriya Huston RMA Active ZITHROMAX Z-SANJANA 250 MG ORAL TABLET 2x1day,8f8hcgm 2014 AZITHROMYCIN 20513056820 No Longer Active Wayne Harms PA Active FISH OIL 1200 MG ORAL CAPSULE One daily prn OME GA-3 FATTY ACIDS 43272012735 No Longer Active Wayne Harms PA Active CEPHALEXIN 250 MG ORAL CAPSULE Take one tablet qid 201 05/25/29 CEPHALEXIN 28976172574 No Longer Active Wayne Harms PA Active VITAMIN D3 1000 UNIT ORAL TABLET 1qd CHOLEC ALCIFEROL 53018209286 No Longer Active Wayne Harms PA Active B-12 2000 MCG ORAL TABLET 1qd CYANOCOBALAMI N 47795133324 No Longer Active Wayne Harms PA Active ACIPHEX 20 MG ORAL TABLET DELAYED RELEASE 1qd 10/28 RABEPRAZOLE SODIUM 45638772820 No Longer Active Wayne Harms PA Active HYDROCORTISONE 2.5 % EXTERNAL CREAM apply 3-4 times a day to affected area HYDROCORTISONE 99165184863 No Longer Active Wayne Harms PA Active MUCINEX 600 MG ORAL TABLET EXTENDED RELEASE 12 HOUR 2qd GUAIFENESIN 91815255701 No Longer Active Wayne Harms PA Active TUSSIONEX PENNKINETIC ER 10-8 MG/5ML ORAL SUSPENSION E XTENDED RELEASE 5ml po q12hr PRN Cough HYDROCOD POLST-CHLORPHEN POLST 5 6446598249 No Longer Active Wayne Harms PA Active ZITHROMAX 250 MG ORAL TABLET 2 po today, then 1 po q days 2-5 20 26/06/21 AZITHROMYCIN 14808557706 No Longer Active Wayne Harms PA Ac tive CLARITIN 10 MG ORAL TABLET one tablet daily THEO ATADINE 66841322633 No Longer Active Wayne Harms PA Active FLAGYL 500 MG ORAL TABLET 1 tablet by mouth three times daily 20 28/05/03 METRONIDAZOLE 37960553741 No Longer Active Wayne Harms PA A ctive CHERATUSSIN AC 100-10 MG/5ML ORAL SYRUP one teaspoon qid. 9 GUAIFENESIN-CODEINE 63915840421 No Longer Active Wayne Harms PA Act rancho VITAMIN D 1000 UNIT ORAL TABLET 1qd CHOLECA LCIFEROL 60091427546 No Longer Active Wayne Harms PA Active CYMBALTA 60 MG ORAL CAPSULE DELAYED RELEASE PARTICLES 1 cap by mouth daily DULOXETINE HCL 64023024200 No Longer Active Wayne Harms PA Active AMOXICILLIN 500 MG ORAL CAPSULE 2 caps tid for 10days AMOXICILLIN 39024525642 No Longer Active Wayne Harms PA Active CALCIUM + D 600-200 MG-UNIT TABS Take one by mouth daily CALCIUM CARBONATE-VITAMIN D 25228364339 No Longer Active Wayne Harms PA Active CENTRUM SILVER ADULT 50+ ORAL TABLET 1qd 2013 MULTIPLE VITAMINS-MINERALS 08446357871 No Longer Active Wayne Harms PA Active VENLAFAXINE HCL 75 MG ORAL TABLET 1tid VE NLAFAXINE HCL 21334258808 No Longer Active Wayne Harms PA Active CLARITIN 10 MG ORAL TABLET 1 tablet by mouth daily as needed for allergies LORATADINE 33301897523 No Longer Active Wayne Harms PA Acti ve HYDROCORTISONE 2.5 % EXTERNAL CREAM Apply four times a day to af fected area HYDROCORTISONE 38242443132 No Longer Active Wayne Harms PA Active ZITHROMAX 250 MG ORAL TABLET 2 po today, then 1 po q days 2-5 20 26/02/30 AZITHROMYCIN 26335933433 No Longer Active Wayne Harms PA Ac tive ZITHROMAX 250 MG ORAL TABLET 2 po today, then 1 po q days 2-5 20 27/02/16 AZITHROMYCIN 24681345209 No Longer Active Wayne Harms PA Ac tive CYMBALTA 30 MG ORAL CAPSULE DELAYED RELEASE PARTICLES 3 caps daily DULOXETINE HCL 18168574832 No Longer Active Wayne Harms PA Active CYMBALTA 60 MG ORAL CAPSULE DELAYED RELEASE PARTICLES one tablet daily, takes 30mg. with 60mg. to make 90 mg. DULOXETINE HCL 26251846782 No Longer Active Wayne Harms PA Active CYMBALTA 30 MG ORAL CAPSULE DELAYED RELEASE PARTICLES 1 daily wi th 60mg DULOXETINE HCL 01491922994 No Longer Active Wayne Harms PA Active ZITHROMAX 250 MG ORAL TABLET 2 po today, then 1 po q days 2-5 20 26/12/21 AZITHROMYCIN 78341641720 No Longer Active Ismael YAGN Active PREDNISONE 20 MG ORAL TABLET 3tab x 2days,2tab x 2days ,1tab x 2days,1/2tab x 2days PREDNISONE 86405341778 No Longer Active Wayne Vera jarvis PA Active PREMARIN 0.625 MG ORAL TABLET Take one by mouth daily ESTROGENS CONJUGATED 60526864533 No Longer Active Wayne Harms PA Active ZITHROMAX 250 MG ORAL TABLET 2 po today, then 1 po q days 2-5 20 26/06/19 AZITHROMYCIN 92618381810 No Longer Active Nereyda Lucke Activ e OMEGA-3 1000 MG ORAL CAPSULE 2qd OMEGA-3 FA TTY ACIDS 53670622460 No Longer Active Wayne Harms PA Active BENADRYL ITCH STOPPING 1-0.1 % EXTERNAL CREAM prn DIPHENHYDRAMINE- ZINC ACETATE 72760362614 No Longer Active Wayne Harms PA Active LOTRISONE 1-0.05 % EXTERNAL CREAM Apply bid CLOTRIMAZOLE-BETAMETHASONE 81627879155 No Longer Active Wayne Harms PA Active ZITHROMAX Z-SANJANA 250 MG ORAL TABLET take as directed 26/04/19 AZITHROMYCIN 69824728756 No Longer Active Wayne Harms PA Active NYSTATIN 421279 UNIT/GM EXTERNAL POWDER Apply to affected areas BID NYSTATIN 80855042270 No Longer Active Wayne Harms PA Acti ve BENADRYL 25 MG ORAL CAPSULE prn DIPHENHYDRAMINE HCL 55604824536 Active Wayne Harms PA Active LOTRISONE 1-0.05 % EXTERNAL CREAM apply twice a day 20 25/02/17 CLOTRIMAZOLE-BETAMETHASONE 48505196928 No Longer Active Wayne Harms PA Active HYDROCODONE-ACETAMINOPHEN 5-325 MG ORAL TABLET 1-2 every 4hr s prn pain HYDROCODONE-ACETAMINOPHEN 14704767666 No Longer Activ e Wayne Harms PA Active VICODIN 5-300 MG ORAL TABLET 1-2 tabs every 6hrs as needed for p ain HYDROCODONE-ACETAMINOPHEN 83526142152 No Longer Active Wayne Harms PA Active BENADRYL 25 MG ORAL CAPSULE 1prn DIPHENHYDRA MINE HCL 50510641557 No Longer Active Jillina Frazell PROGRAM PROPOSALS COORDINATOR Active ROBITUSSIN DM 100-10 MG/5ML ORAL SYRUP 2 teaspoons four times a day DEXTROMETHORPHAN-GUAIFENESIN 59505860604 No Longer Active Jillina Frazell PROGRAM PROPOSALS COORDINATOR Active ACIPHEX 20 MG ORAL TABLET DELAYED RELEASE Take one by mouth daily RABEPRAZOLE SODIUM 60863727881 No Longer Active Jillina Frazell PROGRAM PROPOSALS COORDINATOR Active TUMS 500 MG ORAL TABLET CHEWABLE prn SADIQ CIUM CARBONATE ANTACID 60442852746 No Longer Active Jillina Frazell PROGRAM PROPOSALS COORDINATOR Active PEPTO-BISMOL 524 MG/30ML ORAL SUSPENSION prn 02/26 BISMUTH SUBSALICYLATE 87191566015 No Longer Active Jillina Frazell PROGRAM PROPOSALS COORDINATOR Active BACTRIM DS 800-160 MG ORAL TABLET 1bid SULFAMETHOXAZOLE-TRIMETHOPRIM 93118560733 No Longer Active Beth Naff MIXER OPERATOR TABLETS Active GAVISCON EXTRA RELIEF FORMULA CHEW prn A LUM HYDROXIDE-MAG CARBONATE CHEW 67011088308 Active Wayne Harms PA Active DIFLUCAN 150 MG ORAL TABLET 1stat FLUCONAZOL E 60547282247 No Longer Active Wayne Harms PA Active AUGMENTIN 875-125 MG ORAL TABLET 1 tab by mouth twice daily with food AMOXICILLIN-POT CLAVULANATE 82651610076 No Longer Act rancho Wayne Harms PA Active FLUTICASONE PROPIONATE 50 MCG/ACT NASAL SUSPENSION 1 t o 2 sprays each nostril twice a day FLUTICASONE PROPIONATE 57720468359 No Lo nger Active Wayne Harms PA Active HYDROCORTISONE 2.5 % EXTERNAL CREAM apply 2-4 times a day, a s directed, prn HYDROCORTISONE 31241704383 No Longer Active Wayne Harms PA Active ZITHROMAX Z-SANJANA 250 MG ORAL TABLET A ZITHROMYCIN 24134750704 No Longer Active Wayne Harms PA Active SIMVASTATIN 40 MG ORAL TABLET one tablet daily SIMVASTATIN 41540436203 No Longer Active Misty Yoo MIXER OPERATOR TABLETS Active LOVASTATIN 40 MG ORAL TABLET Take one by mouth daily 12/11 LOVASTATIN 47856672354 No Longer Active Misty Yoo MIXER OPERATOR TABLETS Active PREDNISONE 20 MG ORAL TABLET 2 PO qd x 2d, 1 PO qd x 2d, 1/2 PO qd x 2d PREDNISONE 58405520121 No Longer Active Ismael silva PA Active ZITHROMAX 250 MG ORAL TABLET two tablets now and one daily x 4 d ays AZITHROMYCIN 44752245544 No Longer Active Misty Yoo MIXER OPERATOR TABLETS Active ZOLPIDEM TARTRATE 10MG TABS (ZOLPIDEM TARTRATE) 1 at bedtime as needed Active Supriya Betzaida RMA Active CLOBETASOL PROPIONATE 0.05 % EXTERNAL CREAM apply as directed CLOBETASOL PROPIONATE 16381838496 No Longer Active Wayne Harms PA A ctive CYMBALTA 30 MG ORAL CAPSULE DELAYED RELEASE PARTICLES takes 90mg qod alt with 60mg DULOXETINE HCL 89557459504 No Longer Active Wayne Harm s PA Active ZITHROMAX 250 MG ORAL TABLET 2 po today, then 1 po q days 2-5 20 12/24/14 AZITHROMYCIN 88641658897 No Longer Active Wayne Harms PA Ac tive TRIAMCINOLONE ACETONIDE 0.1 % EXTERNAL CREAM apply qid TRIAMCINOLONE ACETONIDE 39175551572 No Longer Active Wayne Harms PA Active ALPRAZOLAM 0.25 MG ORAL TABLET 1 tab three times a day 201 02/23/14 ALPRAZOLAM 79066091281 No Longer Active Wayne Harms PA Active ZOLPIDEM TARTRATE 5 MG ORAL TABLET 1 at bedtime as needed ZOLPIDEM TARTRATE 19070899700 No Longer Active Beth Turner MIXER OPERATOR TABLETS Active ALPRAZOLAM 0.25 MG ORAL TABLET 1 tab three times a day ALPRAZOLAM 0.25 MG ORAL TABLET 058970 ALPRAZOLAM Inactive TRIAMCINOLONE ACETONIDE 0.1 % EXTERNAL CREAM apply qid TRIAMCINOLONE ACETONIDE 0.1 % EXTERNAL CREAM 4485393 TRIAMCINOLONE A CETONIDE Inactive CYMBALTA 30 MG ORAL CAPSULE DELAYED RELEASE PARTICLES takes 90mg qod alt with 60mg CYMBALTA 30 MG ORAL CAPSULE DELAYED RELEA SE PARTICLES 675709 DULOXETINE HCL Inactive CLOBETASOL PROPIONATE 0.05 % EXTERNAL CREAM apply as directed CLOBETASOL PROPIONATE 0.05 % EXTERNAL CREAM 298244 CLOBETASOL PROPI KELVIN Inactive LOVASTATIN 40 MG ORAL TABLET Take one by mouth daily 2 LOVASTATIN 40 MG ORAL TABLET 538657 LOVASTATIN Inactive ZITHROMAX Z-SANJANA 250 MG ORAL TABLET 03/03 ZITHROMAX Z-SANJANA 250 MG ORAL TABLET 999413 AZITHROMYCIN Inactive HYDROCORTISONE 2.5 % EXTERNAL CREAM apply 2-4 times a day, a s directed, prn HYDROCORTISONE 2.5 % EXTERNAL CREAM 147300 HYDRO CORTISONE Inactive FLUTICASONE PROPIONATE 50 MCG/ACT NASAL SUSPENSION 1 t o 2 sprays each nostril twice a day FLUTICASONE PROPIONA TE 50 MCG/ACT NASAL SUSPENSION 2597573 FLUTICASONE PROPIONATE Inactive AUGMENTIN 875-125 MG ORAL TABLET 1 tab by mouth twice daily with food AUGMENTIN 875-125 MG ORAL TABLET AMOXICIL BLOSSOM-POT CLAVULANATE Inactive DIFLUCAN 150 MG ORAL TABLET 1stat DIFLUCAN 150 MG ORAL TABLET 686027 FLUCONAZOLE Inactive PEPTO-BISMOL 524 MG/30ML ORAL SUSPENSION prn PEPTO-BISMOL 524 MG/30ML ORAL SUSPENSION BISMUTH SUBSALICYLATE Inactive TUMS 500 MG ORAL TABLET CHEWABLE prn TUMS 500 MG ORAL TABLET CHEWABLE 365630 CALCIUM CARBONATE ANTACID Inactive ACIPHEX 20 MG ORAL TABLET DELAYED RELEASE Take one by mouth daily ACIPHEX 20 MG ORAL TABLET DELAYED RELEASE 653264 RABEPRAZOLE SODIUM Inactive ROBITUSSIN DM 100-10 MG/5ML [...] pain HYDROCODONE-ACETAMINOPHEN 5-325 MG ORAL TABLET 8 58311 HYDROCODONE-ACETAMINOPHEN Inactive LOTRISONE 1-0.05 % EXTERNAL CREAM apply twice a day 20 25/02/17 LOTRISONE 1- 0.05 % EXTERNAL CREAM CLOTRIMAZOLE-BETAMETHASONE Inactive NYSTATIN 366044 UNIT/GM EXTERNAL POWDER Apply to affected areas BID NYSTATIN 358877 UNIT/GM EXTERNAL POWDER 767711 NYSTATIN Inactive ZITHROMAX Z-SANJANA 250 MG ORAL TABLET take as directed 20 26/04/19 ZITHROMAX Z-SANJANA 250 MG ORAL TABLET 074767 AZITHROMYCIN Inact [place] LOTRISONE 1-0.05 % EXTERNAL CREAM Apply bid LOTRISONE 1- 0.05 % EXTERNAL CREAM CLOTRIMAZOLE-BETAMETHASONE Inactive BENADRYL ITCH STOPPING 1-0.1 % EXTERNAL CREAM prn BENADRYL ITCH STOPPING 1-0.1 % EXTERNAL CREAM DIPHENHYDRAMINE-ZINC ACETATE Inactive OMEGA-3 1000 MG ORAL CAPSULE 2qd OMEGA-3 1000 MG ORAL CAPSULE 432417 OMEGA-3 FATTY ACIDS Inactive ZITHROMAX 250 MG ORAL TABLET 2 po today, then 1 po q days 2-5 20 26/06/19 ZITHROMAX 250 MG ORAL TABLET 995851 AZITHROMYCIN Mara ctive PREMARIN 0.625 MG ORAL TABLET Take one by mouth daily PREMARIN 0.625 MG ORAL TABLET ESTROGENS CONJUGATED Inactive PREDNISONE 20 MG ORAL TABLET 3tab x 2days,2tab x 2days ,1tab x 2days,1/2tab x 2days PREDNISONE 20 MG ORAL TABLET 048969 PREDNIS ONE Inactive CYMBALTA 30 MG ORAL CAPSULE DELAYED RELEASE PARTICLES 1 daily wi th 60mg CYMBALTA 30 MG ORAL CAPSULE DELAYED RELEASE PARTICLES 096910 DULOXETINE HCL Inactive CYMBALTA 60 MG ORAL CAPSULE DELAYED RELEASE PARTICLES one tablet daily, takes 30mg. with 60mg. to make 90 mg. CYMBALTA 60 MG ORAL CAPSULE DELAYED RELEASE PARTICLES 777302 DULOXETINE HCL Inacti ve CYMBALTA 30 MG ORAL CAPSULE DELAYED RELEASE PARTICLES 3 caps daily CYMBALTA 30 MG ORAL CAPSULE DELAYED RELEASE PARTICLES 464748 DULOXE ROSANNE HCL Inactive HYDROCORTISONE 2.5 % EXTERNAL CREAM Apply four times a day to af fected area HYDROCORTISONE 2.5 % EXTERNAL CREAM 639166 HYDROCORTISO NE Inactive CLARITIN 10 MG ORAL TABLET 1 tablet by mouth daily as needed for allergies CLARITIN 10 MG ORAL TABLET 379623 LORATADINE Inact ranch[place] VENLAFAXINE HCL 75 MG ORAL TABLET 1tid VENLAFAXINE HCL 75 MG ORAL TABLET 539753 VENLAFAXINE HCL Inactive CENTRUM SILVER ADULT 50+ ORAL TABLET 1qd 2013 CENTRUM SILVER ADULT 50+ ORAL TABLET MULTIPLE VITAMINS-MINERALS Inactive CALCIUM + D 600-200 MG-UNIT TABS Take one by mouth daily CALCIUM + D 600-200 MG-UNIT TABS CALCIUM CARBONATE-VITAMIN D Inactive AMOXICILLIN 500 MG ORAL CAPSULE 2 caps tid for 10days AMOXICILLIN 500 MG ORAL CAPSULE 220167 AMOXICILLIN Inactive CYMBALTA 60 MG ORAL CAPSULE DELAYED RELEASE PARTICLES 1 cap by mouth daily CYMBALTA 60 MG ORAL CAPSULE DELAYED RELE ASE PARTICLES 278898 DULOXETINE HCL Inactive VITAMIN D 1000 UNIT ORAL TABLET 1qd 4 VITAMIN D 1000 UNIT ORAL TABLET CHOLECALCIFEROL Inactive CHERATUSSIN AC 100-10 MG/5ML ORAL SYRUP one teaspoon qid. 9 CHERATUSSIN AC 100-10 MG/5ML ORAL SYRUP GUAIFENESIN-CODEINE Inactive FLAGYL 500 MG ORAL TABLET 1 tablet by mouth three times daily 20 28/05/03 FLAGYL 500 MG ORAL TABLET 239702 METRONIDAZOLE Inacti ve CLARITIN 10 MG ORAL TABLET one tablet daily CLARITIN 10 MG ORAL TABLET 588783 LORATADINE Inactive TUSSIONEX PENNKINETIC ER 10-8 MG/5ML [...] affected area HYDROCORTISONE 2.5 % EXTERNAL CREAM 110416 HYDRO CORTISONE Inactive ACIPHEX 20 MG ORAL TABLET DELAYED RELEASE 1qd ACIPHEX 20 MG ORAL TABLET DELAYED RELEASE 312150 RABEPRAZOLE SODIUM Inactive B-12 2000 MCG ORAL TABLET 1qd B-12 2000 MCG ORAL TABLET CYANOCOBALAMIN Inactive VITAMIN D3 1000 UNIT ORAL TABLET 1qd VITAMIN D3 1000 UNIT ORAL TABLET CHOLECALCIFEROL Inactive CEPHALEXIN 250 MG ORAL CAPSULE Take one tablet qid 201 05/25/29 CEPHALEXIN 250 MG ORAL CAPSULE 820182 CEPHALEXIN Inactive FISH OIL 1200 MG ORAL CAPSULE One daily prn FISH OIL 1200 MG ORAL CAPSULE OMEGA-3 FATTY ACIDS Inactive ZITHROMAX Z-SANJANA 250 MG ORAL TABLET 2x1day,[id number] 2014 ZITHROMAX Z-SANJANA 250 MG ORAL TABLET 972228 AZITHROMYCIN Inact [place] BENZONATATE 200 MG ORAL CAPSULE Take one capsule three times a d ay BENZONATATE 200 MG ORAL CAPSULE 717416 BENZONATATE Inactive GREEN TEA SLIM ORAL TABLET Take one daily GREEN TEA SLIM ORAL TABLET MISC NATURAL PRODUCTS Inactive PROBIOTIC ORAL CAPSULE Take one daily PROBIOTIC ORAL CAPSULE 1403118 PROBIOTIC PRODUCT Inactive VITAMIN D3 1000 UNIT ORAL TABLET Take two daily 05/05 VITAMIN D3 1000 UNIT ORAL TABLET CHOLECALCIFEROL Inactive HYDROCORTISONE 2.5 % EXTERNAL CREAM Apply three times a day to affected area HYDROCORTISONE 2.5 % EXTERNAL CREAM 317818 HYDRO CORTISONE Inactive MOBIC 15 MG ORAL TABLET 1 tablet by mouth daily in am with PPI 2 MOBIC 15 MG ORAL TABLET 793896 MELOXICAM Inactive CLARITIN-D 12 HOUR 5-120 MG ORAL TABLET EXTENDED RELEA SE 12 HOUR Take one tablet bid CLARITIN-D 12 HOUR 5 -120 MG ORAL TABLET EXTENDED RELEASE 12 HOUR LORATADINE-PSEUDOEPHEDRINE Inactive ACETAMINOPHEN 500 MG ORAL TABLET prn ACETAMINOPHEN 500 MG ORAL TABLET 468384 ACETAMINOPHEN Inactive CLARITIN-D 12 HOUR 5-120 MG [...] yeast 03/03 DIFLUCAN 150 MG ORAL TABLET 161849 FLUCONAZOLE Inactive DIFLUCAN 150 MG ORAL TABLET Take one tablet today and repeat in 72 hours DIFLUCAN 150 MG ORAL TABLET 721235 FLUCONAZOLE Inactive IBUPROFEN 200 MG ORAL TABLET Take 3 tablets every 6hrs IBUPROFEN 200 MG ORAL TABLET 996539 IBUPROFEN Inactive ZITHROMAX Z-SANJANA 250 MG ORAL TABLET Take 2 tablets toda y and 1 each day till gone ZITHROMAX Z-SANJANA 250 MG ORAL TABLET 648975 A ZITHROMYCIN Inactive PROAIR HFA 108 (90 [...] bowels 3 REGLAN 10 MG ORAL TABLET 837116 METOCLOPRAMIDE HCL Inactive PREDNISONE 20 MG ORAL TABLET Take 2 tablets by mouth d aily for 2 days then 1 tablet daily for 2 days. PREDNISONE 20 MG ORAL T ABLET 743662 PREDNISONE Inactive ZYRTEC ALLERGY 10 MG ORAL CAPSULE 1qd ZYRTEC ALLERGY 10 MG ORAL CAPSULE CETIRIZINE HCL Inactive ZITHROMAX 250 MG ORAL TABLET 2 po today, then 1 po q days 2-5 20 12/24/14 ZITHROMAX 250 MG ORAL TABLET 738238 AZITHROMYCIN [place] ctive ZITHROMAX 250 MG ORAL TABLET two tablets now and one daily x 4 d ays ZITHROMAX 250 MG ORAL TABLET 440684 AZITHROMYCIN Mara ctive PREDNISONE 20 MG ORAL TABLET 2 PO qd x 2d, 1 PO qd x 2d, 1/2 PO qd x 2d PREDNISONE 20 MG ORAL TABLET 756956 PREDNISONE Inactive SIMVASTATIN 40 MG ORAL TABLET one tablet daily SIMVASTATIN 40 MG ORAL TABLET 858061 SIMVASTATIN Inactive BACTRIM DS 800-160 MG ORAL TABLET 1bid BACTRIM DS 800-160 MG ORAL TABLET 843819 SULFAMETHOXAZOLE-TRIMETHOPRIM Inactive ZITHROMAX 250 MG ORAL TABLET 2 po today, then 1 po q days 2-5 20 26/12/21 ZITHROMAX 250 MG ORAL TABLET 118565 AZITHROMYCIN [place] ctive ZITHROMAX 250 MG ORAL TABLET 2 po today, then 1 po q days 2-5 20 27/02/16 ZITHROMAX 250 MG ORAL TABLET 600464 AZITHROMYCIN [place] ctive ZITHROMAX 250 MG ORAL TABLET 2 po today, then 1 po q days 2-5 20 26/02/30 ZITHROMAX 250 MG ORAL TABLET 778666 AZITHROMYCIN Mara ctive ZITHROMAX 250 MG ORAL TABLET 2 po today, then 1 po q days 2-5 20 26/06/21 ZITHROMAX 250 MG ORAL TABLET 735987 AZITHROMYCIN [place] ctive ZITHROMAX 250 MG ORAL TABLET 2 po today, then 1 po q days 2-5 20 31/03/18 ZITHROMAX 250 MG ORAL TABLET 378406 AZITHROMYCIN [place] ctive ZITHROMAX Z-SANJANA 250 MG ORAL TABLET 2 today, then 1 daily for 4 d ays ZITHROMAX Z-SANJANA 250 MG ORAL TABLET 295950 AZITHROMYCIN Inactive AMOXICILLIN 500 MG ORAL CAPSULE Take 1 capsule by mout h three times a day X 10 days AMOXICILLIN 500 MG ORAL CAPSULE 915635 AMOX ICILLIN Inactive AMOXICILLIN-POT CLAVULANATE 875-125 MG ORAL TABLET 1 pill by mouth twice daily AMOXICILLIN-POT CLAVULANATE 875-125 MG ORAL TABL ET 319934 AMOXICILLIN-POT CLAVULANATE Inactive AUGMENTIN 875-125 MG ORAL TABLET Take one tablet twice a day with food AUGMENTIN 875-125 MG ORAL TABLET AMOXICILLIN-POT CLAVULANATE Inactive POLYTRIM 88337-4.1 UNIT/ML-% OPHTHALMIC SOLUTION 1 gtt to affected eye q3h x 7 days POLYTRIM 48790-6.1 UNIT/ML-% OPH THALMIC SOLUTION 586444 POLYMYXIN B-TRIMETHOPRIM Inactive MACROBID 100 MG ORAL CAPSULE 1 cap by mouth twice daily MACROBID 100 MG ORAL CAPSULE 7420691 NITROFURANTOIN MONOHYD MACRO In active Advance Directives [...] Fluarix, Agriflu(>= 18 yo)) Fluzone (>=3 yrs.) [DDT467] Seasonal influenza vaccine, injectable, containing preservative, for > 3 years old (Afluria, FluLaval, Fluzone, Fluvirin, Fluarix, Agriflu(>= 18 yo)) Fluzone (>3 yrs.) [WXC111] Seasonal influenza vaccine, injectable, containing preservative, for > 3 years old (Afluria, FluLaval, Fluzone, Fluvirin, Fluarix, Agriflu(>= 18 yo)) Fluarix (>3 yrs.) [OLC185] Diagnostic Results Date Name Value Unit Range Description Lab Report: CBC, Comp. Metabolic Panel, Lipid Panel, Magnesium - Chemistry sodium, serum 138 mmol/L 991-129 2099/09/02 carbon dioxide, venous blood 28.0 mmol/L 21.0-32 [...] 0.20 mg/dL 0.00-1.00 cholesterol, serum 228 mg/dL 184-158 2252/09/02 triglyceride, serum, fasting 236 mg/dL 30-200 HDL [...] 0.36-3.74 Encounters Code Encounter Date Provider Facility CPT-44986 [id number] Vst-Est Level III 17:07:11 CDT Jenny Yang [facility] [place] CPT-73878 [id number] Vst-Est Level III 17:51:44 HIDE DYER [place] [facility] CPT-93629 Level 3 Est. Patient 11:09:39 CDT Viviana Rubio [facility] CPT-82702 [id number] Vst-Est Level IV 09:14:31 CDT Conchis Yang [facility] [place] CPT-25392 [id number] Vst-Est Level III 22:05:50 CDT Jenny Yang [facility] [place] CPT-63171 Level 3 Est. Patient 15:00:02 HIDE DYER Will jarquin [facility] CPT-94726 Level 2 Est. Patient 13:46:20 CDT Ashley peacock [facility] [place] CPT-10141 Level 2 Est. Patient 13:45:36 CDT Ashley Meraz [facility] [place] CPT-97171 Level 3 Est. Patient 15:52:07 CDT Ashley Meraz [facility] [place] CPT-44483 Level 3 Est. Patient 08:20:37 CDT Ashley Meraz [facility] [place] CPT-40610 Level 3 Est. Patient 15:06:41 CDT Derrick donaldson MD [facility] CPT-05025 Level 3 Est. Patient 11:13:21 HIDE DYER Derrick donaldson MD [facility] CPT-06711 Level 3 Est. Patient 12:54:25 HIDE DYER Ashley Meraz [facility] [place] CPT-89414 Level 3 Est. Patient 23:34:49 HIDE DYER Ashley Meraz [facility] [place] CPT-91859 Level 3 Est. Patient 16:37:09 HIDE DYER Ashley Meraz [facility] [place] CPT-40262 Level 3 Est. Patient 11:59:30 HIDE DYER Ashley Meraz [facility] [place] CPT-49420 Level 4 Est. Patient 07:40:13 CDT Wayne delatorre [facility] [place] CPT-49974 Level 4 Est. Patient 08:06:18 CDT Wayne delatorre [facility] [place] [facility] CPT-33969 Level 3 Est. Patient 11:14:45 CDT Wayne delatorre [facility] [place] CPT-12369 Level 3 Est. Patient 10:14:55 CDT Wayne delatorre [facility] [place] CPT-57319 Level 4 Est. Patient 15:23:47 CDT Wayne delatorre [facility] CPT-81984 Level 3 Est. Patient 07:50:51 HIDE DYER Wayne delatorre PA [facility] CPT-21389 Level 3 Est. Patient 14:47:52 CDT [facility] CPT-23656 Level 3 Est. Patient 11:28:46 CDT Wyane delatorre [facility] CPT-54200 Level 4 Est. Patient 14:48:43 CDT Wayne delatorre [facility] CPT-83548 Level 3 Est. Patient 14:10:18 HIDE DYER Wayne delatorre PA [facility] CPT-95053 Level 3 Est. Patient 16:44:33 HIDE DYER Wayne delatorre [facility] CPT-74594 Level 4 Est. Patient 08:22:34 HIDE DYER Wayne delatorre [facility] CPT-55114 Level 4 Est. Patient 07:10:30 CDT Wayne delatorre [facility] CPT-10842 Level 3 Est. Patient 14:50:20 HIDE DYER Wayne delatorre [facility] CPT-35594 Level 3 Est. Patient 09:46:08 HIDE DYER Zulekia cha APRN [facility] CPT-37390 Level 4 Est. Patient 07:56:24 HIDE DYER Wayne delatorre [facility] CPT-78472 Level 3 Est. Patient 12:13:53 CDT Ismael Denton [facility] CPT-12852 Level 4 Est. Patient 12:28:51 HIDE DYER Wayne delatorre [facility] CPT-07374 Level 3 Est. Patient 15:23:42 HIDE DYER Wayne delatorre TREY [facility] CPT-91760 Level 3 Est. Patient 06:34:33 HIDE DYER Wayne delatorre TREY [facility] Procedures Code Procedure Name Date Entry Date Standard Desc ription CPT-06542 Allergy Admin 2 16:06:08 CDT CPT-31833 Allergy Admin 2 16:51:42 CDT CPT-97271 Allergy Admin 2 16:26:50 CDT CPT-46240 Allergy Admin 2 17:02:53 CDT CPT-32601 Allergy Admin 2 16:32:35 CDT CPT-25252 Allergy Admin 2 16:26:27 CDT CPT-J3420 Vitamin B12 1000mcg (Cyanocobalamin) 16:32:13 CDT CPT-87332 Abx/Therapy Injection 16:32:13 CDT CPT-04492 Allergy Admin 2 16:32:12 CDT CPT-87116 Allergy Admin 2 16:05:03 CDT CPT-35935 Allergy Admin 2 16:35:15 CDT CPT-63952 Allergy Admin 2 16:20:41 CDT CPT-50412 Allergy Admin 2 11:25:21 CDT CPT-25955 Allergy Admin 2 15:46:12 CDT CPT-OW8710N (4274F) Influenza immunization administe red or previously received 17:51:44 HIDE DYER CPT-24297 Spec Collection and Handling Fee 10:45:[address] CPT-HU6200C (4274F) Influenza immunization administe red or previously received 10:20:17 CDT CPT-22605 Prv Med Est Pt 40-64yrs 16:26:57 CDT CPT-14762 Venipuncture Draw Fee 11:08:31 CDT CPT-25700 Magnesium - LAB USE ONLY 11:08:31 CDT 10/15 CPT-21227 TSH - LAB USE ONLY 11:08:31 CDT CPT-88127 Lipid - LAB USE ONLY 11:08:30 CDT 2 CPT-59686 CMP - LAB USE ONLY 11:08:30 CDT CPT-37444 CBC - LAB USE ONLY 11:08:30 CDT CPT-42642 Spec Collection and Handling Fee 16:14:51 C DT CPT-18082 UA w micro - LAB USE ONLY 16:14:51 CDT 2018 CPT-81470 Prv Med Est Pt 40-64yrs 08:34:49 CDT 10/01 CPT-63177 Sed Rate - LAB USE ONLY 10:50:49 CDT 10/02 CPT-27180 TSH - LAB USE ONLY 10:50:49 CDT CPT-24716 Lipid - LAB USE ONLY 10:50:49 CDT 0 CPT-24390 Magnesium - LAB USE ONLY 10:50:49 CDT 10/02 CPT-45267 CMP - LAB USE ONLY 10:50:49 CDT CPT-53111 CBC - LAB USE ONLY 10:50:49 CDT CPT-39094 Venipuncture Draw Fee 10:50:49 CDT CPT-89759 IV Hydration < or = 1 hr 22:05:50 CDT 04/16 CPT-J7030 Normal Saline 1000 mL 22:05:50 CDT CPT-05120 Abx/Therapy Injection 16:31:51 HIDE DYER CPT-J2950 Phenergan 25 mg 16:31:51 HIDE DYER CPT-26726 Abx/Therapy Injection 16:39:40 CDT CPT-36290 First Vx - Ix admin via ID I M or jet injects without counseling by physician 16:39:39 CDT CPT-16920 Prv Med Est Pt 40-64yrs 16:33:10 CDT 11/10 CPT-JTINJ Asp/Joint Injection 16:13:36 CDT CPT-73647 Allergy Admin 2 16:54:52 CDT CPT-20720 Allergy Admin 2 16:46:15 CDT CPT-32721 Allergy Admin 2 11:29:09 CDT CPT-69164 Allergy Admin 2 17:05:15 CDT CPT-34243 Allergy Admin 2 12:31:51 CDT CPT-72640 Allergy Admin 2 15:40:56 CDT CPT-16460 CBC - LAB USE ONLY 09:49:24 CDT CPT-88169 CMP - LAB USE ONLY 09:49:24 CDT CPT-84815 Lipid - LAB USE ONLY 09:49:24 CDT 8 CPT-75562 Venipuncture Draw Fee 09:49:24 CDT CPT-39707 Allergy Admin 2 10:46:11 CDT CPT-JTINJ Asp/Joint Injection 09:52:58 CDT CPT-92152 Skin tag rem 1-15 13:46:20 CDT CPT-19294 Knee, right, 3V - XRAY USE ONLY 13:07:09 CD T CPT-76717 Allergy Admin 2 11:56:38 CDT CPT-72023 Allergy Admin 2 12:00:55 CDT CPT-02242 Allergy Admin 2 16:42:13 T CPT-22610 Allergy Admin 2 16:27:55 T CPT-87275 Allergy Admin 2 13:24:26 T CPT-60658 Allergy Admin 2 17:17:57 [facility] CPT-71668 Allergy Admin 2 16:23:22 [facility] CPT-84317 Allergy Admin 2 16:26:55 [facility] CPT-13738 Allergy Admin 2 16:32:33 [facility] CPT-50159 Allergy Admin 2 17:43:40 [facility] CPT-25943 Allergy Admin 2 16:26:07 [facility] CPT-10937 Allergy Admin 2 12:31:50 [facility] CPT-20344 Allergy Admin 2 16:40:38 [facility] CPT-17577 Allergy Admin 2 17:07:36 T CPT-G0008 Administration of Influenza Virus Vaccine 17:01:01 CDT CPT-11797 First Vx - Ix admin via ID I M or jet injects without counseling by physician 17:01:01 CDT CPT-33667 Allergy Admin 2 12:06:54 CDT CPT-13299 Allergy Admin 2 17:04:46 CDT CPT-84190 Allergy Admin 2 16:34:48 CDT CPT-92558 Allergy Admin 2 17:04:51 CDT CPT-29401 Allergy Admin 2 16:25:14 CDT CPT-22339 Allergy Admin 2 10:52:02 CDT CPT-36042 Allergy Admin 2 11:45:31 CDT CPT-47646 Allergy Admin 2 12:02:20 CDT CPT-27208 Allergy Admin 2 15:47:29 CDT CPT-43022 Allergy Admin 2 13:25:44 CDT CPT-21122 Allergy Admin 2 10:51:13 CDT CPT-05029 CBC - LAB USE ONLY 10:44:39 CDT CPT-46762 CMP - LAB USE ONLY 10:44:39 CDT CPT-87702 Lipid - LAB USE ONLY 10:44:39 CDT 9 CPT-93993 Venipuncture Draw Fee 10:44:38 CDT CPT-94191 Allergy Admin 2 12:25:22 CDT CPT-50347 Allergy Admin 2 12:41:34 CDT CPT-73205 Allergy Admin 2 15:29:46 CDT CPT-09055 Allergy Admin 2 14:46:53 CDT CPT-98829 Allergy Admin 2 14:16:16 CDT CPT-69303 Allergy Admin 2 16:55:26 CDT CPT-74662 Allergy Admin 2 10:12:02 CDT CPT-97943 Allergy Admin 2 14:53:56 CDT CPT-18476 Allergy Admin 2 17:01:54 CDT CPT-61544 Allergy Admin 2 09:36:02 T CPT-38425 Allergy Admin 2 16:53:26 [facility] CPT-29464 Allergy Admin 2 16:59:41 [facility] CPT-12606 Allergy Admin 2 16:36:44 [facility] CPT-51463 Allergy Admin 2 16:17:16 [facility] CPT-37360 Allergy Admin 2 17:08:10 [facility] CPT-15303 Allergy Admin 2 12:16:08 [facility] CPT-98307 Allergy Admin 2 16:47:30 [facility] CPT-96133 Allergy Admin 2 16:59:44 [facility] CPT-57983 Allergy Admin 2 12:48:53 [facility] CPT-14287 Allergy Admin 2 10:19:48 [facility] CPT-97216 Allergy Admin 2 12:40:17 [facility] CPT-33299 Abx/Therapy Injection 17:21:59 [facility] CPT-78209 First Vx - Ix admin via ID I M or jet injects without counseling by physician 17:21:57 HIDE DYER CPT-52214 Allergy Admin 2 17:20:12 [facility] CPT-35053 Allergy Admin 2 11:12:50 [facility] CPT-36537 Allergy Admin 2 17:02:39 CDT CPT-70408 BMP - LAB USE ONLY 10:33:02 CDT CPT-11398 CBC - LAB USE ONLY 10:33:02 CDT CPT-23207 Venipuncture Draw Fee 10:33:02 CDT CPT-92799 Abx/Therapy Injection 12:29:08 CDT CPT-28495 Allergy Admin 2 10:39:48 CDT CPT-82982 Allergy Admin 2 10:55:47 CDT CPT-PV Prev. Care Visit 10:10:00 CDT CPT-54608 Allergy Admin 2 11:31:20 CDT CPT-76591 Allergy Admin 2 16:53:45 CDT CPT-47464 Allergy Admin 2 16:36:42 CDT CPT-65399 Allergy Admin 2 16:30:19 CDT CPT-50924 Allergy Admin 2 15:39:35 CDT CPT-65227 Allergy Admin 2 17:51:32 CDT CPT-28401 Allergy Admin 2 11:50:50 CDT CPT-PV Prev. Care Visit 14:09:05 CDT CPT-91920 Allergy Admin 2 13:37:39 CDT CPT-26566 Abx/Therapy Injection 12:17:43 CDT CPT-75630 Venipuncture Draw Fee 10:39:55 CDT CPT-20912 Allergy Admin 2 12:04:53 CDT CPT-93034 Allergy Admin 2 10:04:39 CDT CPT-82126 Allergy Admin 2 12:15:35 CDT CPT-04553 Allergy Admin 2 17:04:36 CDT CPT-00815 Allergy Admin 2 16:25:49 CDT CPT-52738 Allergy Admin 2 17:30:06 CDT CPT-21184 Allergy Admin 2 10:11:48 CDT CPT-18218 Allergy Admin 2 17:06:13 CDT CPT-38003 Abx/Therapy Injection 12:23:07 CDT CPT-J0702 Celestone 12 mg (Betamethasone) 12:23:07 CD T CPT-75410 Venipuncture Draw Fee 10:26:42 CDT CPT-92429 Allergy Admin 2 12:10:01 CDT CPT-46164 Allergy Admin 2 15:13:57 HIDE DYER CPT-60545 Allergy Admin 2 16:55:22 HIDE DYER CPT-95480 Allergy Admin 2 10:13:46 HIDE DYER CPT-15430 Venipuncture Draw Fee 10:06:08 HIDE DYER CPT-67235 Allergy Admin 2 16:15:41 HIDE DYER CPT-14945 Allergy Admin 2 16:40:21 HIDE DYER CPT-58723 Allergy Admin 2 16:31:48 HIDE DYER CPT-43298 Allergy Admin 2 16:38:26 HIDE DYER CPT-36269 Allergy Admin 2 16:40:08 HIDE DYER CPT-93490 Allergy Admin 2 08:34:27 HIDE DYER CPT-46282 Allergy Admin 2 14:27:45 HIDE DYER CPT-26526 Destruction bgn lsn up to 14 09:41:27 HIDE DYER 2 CPT-56895 Allergy Admin 2 17:45:17 HIDE DYER CPT-44383 Allergy Admin 2 14:59:03 HIDE DYER CPT-21542 Allergy Admin 2 12:49:42 CDT CPT-65186 Administration single or combination vac cine inc oral 15:01:57 CDT CPT-75738 Fluzone Quadrivalent Intramuscular Suspe nsion 0.5 ML 15:01:57 CDT CPT-78389 Allergy Admin 2 15:07:08 CDT CPT-84814 Allergy Admin 2 15:39:01 CDT CPT-06942 Allergy Admin 2 17:40:11 CDT CPT-72003 Allergy Admin 2 16:07:08 CDT CPT-18098 Allergy Admin 2 16:08:07 CDT CPT-65182 Venipuncture Draw Fee 09:34:29 CDT CPT-24421 Allergy Admin 2 16:27:43 CDT CPT-56604 Allergy Admin 2 15:53:10 CDT CPT-92086 Allergy Admin 2 15:42:29 CDT CPT-36309 Allergy Admin 2 11:26:14 CDT CPT-70159 Allergy Admin 2 10:36:24 CDT CPT-38653 Allergy Admin 2 16:53:37 CDT CPT-00807 Allergy Admin 2 11:21:44 CDT CPT-43230 Allergy Admin 2 10:50:40 CDT CPT-64225 Allergy Admin 2 11:19:11 CDT CPT-85949 Venipuncture Draw Fee 11:12:25 CDT CPT-19752 Allergy Admin 2 11:14:51 CDT CPT-76762 Allergy Admin 2 16:53:11 CDT CPT-90108 Allergy Admin 2 11:45:56 CDT CPT-79360 Allergy Admin 2 12:51:39 CDT CPT-61683 Allergy Admin 2 12:08:56 CDT CPT-18502 Allergy Admin 2 15:29:45 CDT CPT-12446 Allergy Admin 2 16:34:01 CDT CPT-57299 Allergy Admin 2 16:36:46 CDT CPT-29524 Allergy Admin 2 15:19:16 CDT CPT-00014 Allergy Admin 2 16:13:25 CDT CPT-20647 Allergy Admin 2 17:06:17 CDT CPT-92395 Allergy Admin 2 10:42:10 [facility] CPT-63070 Allergy Admin 2 17:33:16 [facility] CPT-71160 Allergy Admin 2 10:53:30 [facility] CPT-35471 Allergy Admin 2 14:18:24 [facility] CPT-23382 Allergy Admin 2 10:18:29 [facility] CPT-53093 Allergy Admin 2 12:57:40 [facility] CPT-68593 Allergy Admin 2 16:53:33 [facility] CPT-90902 Allergy Admin 2 12:43:00 [facility] CPT-19282 Allergy Admin 2 13:14:09 [facility] CPT-43505 Pneumovax 23 Injection Injectable 25 MCG /0.5ML 09:51:29 [facility] CPT-G0009 Administration of Pneumococcal Vaccine 09:51:29 [facility] CPT-33735 Influenza split virus > age 3 09:51:29 [facility] CPT-G0008 Administration of Influenza Virus Vaccine 02/23 09:51:29 [facility] CPT-62687 Venipuncture Draw Fee 10:31:06 CDT CPT-J0702 Celestone 12 mg (Betamethasone) 11:34:17 CD T CPT-73554 Abx/Therapy Injection 11:34:17 CDT CPT-48615 Chest 2V Frontal and Lat 11:31:47 CDT 07/04 CPT-31372 Venipuncture Draw Fee 11:31:47 CDT CPT-47837 Allergy Admin 2 14:31:05 CDT CPT-00752 EKG Trac and Interp 08:42:32 CDT CPT-47063 Chest 2V Frontal and Lat 08:42:32 CDT 05/28 CPT-96341 Venipuncture Draw Fee 08:39:02 CDT CPT-71728 Allergy Admin 2 16:59:09 CDT CPT-71108 Allergy Admin 2 17:06:11 CDT CPT-10321 Allergy Admin 2 16:04:36 CDT CPT-38136 Venipuncture Draw Fee 16:32:44 [facility] CPT-44642 Venipuncture Draw Fee 10:54:37 [facility] CPT-25548 Allergy Admin 2 14:53:55 [facility] CPT-08326 Allergy Admin 2 10:23:58 [facility] CPT-01443 First Vx Component - Ix admi n via ID IM or jet inj without physician counseling 15:34:26 [facility] CPT-44473 Fluzone (>=3 yrs.) 15:34:26 [facility] CPT-26339 Allergy Admin 2 15:56:02 [facility] CPT-34070 Allergy Admin 2 11:08:58 HIDE DYER CPT-65524 Allergy Admin 2 10:51:36 HIDE [facility] CPT-21548 Allergy Admin 2 15:38:19 [facility]IDE [facility] CPT-62575 Allergy Admin 2 15:12:46 CDT CPT-27288 Allergy Admin 2 10:28:50 CDT CPT-75127 Allergy Admin 2 16:35:33 CDT CPT-53118 Allergy Admin 2 10:14:18 CDT CPT-16909 Abx/Therapy Injection 09:06:45 CDT CPT-J0702 Celestone 6 mg (Betamethasone) 09:06:45 CDT CPT-68770 Allergy Admin 2 15:51:15 CDT CPT-53478 Allergy Admin 2 10:40:16 CDT CPT-53166 Allergy Admin 2 16:35:55 CDT CPT-28337 Allergy Admin 2 13:12:52 CDT CPT-92539 Allergy Admin 2 16:06:50 CDT CPT-00899 Allergy Admin 2 11:04:24 CDT CPT-77586 Allergy Admin 2 10:44:50 CDT CPT-61317 Allergy Admin 2 15:13:40 CDT CPT-50819 Allergy Admin 2 15:00:03 CDT CPT-12394 Allergy Admin 2 10:37:38 CDT CPT-71379 Venipuncture Draw Fee 09:16:43 HIDE D[facility]ER CPT-33700 Allergy Admin 2 11:15:59 HIDE [facility] CPT-92511 Postop F/U Visit 10:10:52 [facility]IDE [facility] CPT-75495 Allergy Admin 2 13:05:05 HIDE D[facility] CPT-08827 Postop F/U Visit 19:45:16 HIDE [facility] CPT-71745 Allergy Admin 2 11:52:35 HIDE [facility] CPT-04836 Allergy Admin 2 10:49:22 HIDE D[facility]ER CPT-OV Office Visit 13:55:55 HIDE [facility] CPT-50956 Allergy Admin 2 12:54:28 HIDE D[facility]ER CPT-OV Office Visit 14:04:48 HIDE [facility] CPT-52946 Venipuncture Draw Fee 10:29:14 [facility]IDE [facility] CPT-19330 Allergy Admin 2 11:24:43 HIDE D[facility] CPT-25988 Knee 3V 11:00:12 HIDE [facility] CPT-01475 C-Spine Min 4V 11:00:12 HIDE D[facility] CPT-19998 Allergy Admin 2 13:38:40 HIDE [facility] CPT-98718 Venipuncture Draw Fee 11:33:37 CDT CPT-85298 Allergy Admin 2 15:34:37 CDT CPT-38083 Allergy Admin 2 14:11:42 CDT CPT-79759 Administration single or combination vac cine inc oral 12:51:42 CDT CPT-09198 Influenza split virus > age 3 12:51:42 CDT CPT-91682 Allergy Admin 2 11:58:43 CDT CPT-64991 Allergy Admin 2 11:29:32 CDT CPT-26980 Allergy Admin 2 10:55:19 CDT CPT-74021 Allergy Admin 2 12:38:54 CDT CPT-46577 Allergy Admin 2 13:01:47 CDT CPT-11456 Abx/Therapy Injection 12:41:18 CDT CPT-J0702 Celestone 12 mg (Betamethasone) 12:41:18 CD T CPT-07721 Abx/Therapy Injection 16:33:09 CDT CPT-J0702 Celestone 12 mg (Betamethasone) 16:33:09 CD T CPT-21990 Allergy Admin 2 15:49:09 CDT CPT-49115 Allergy Admin 2 12:08:56 CDT CPT-74195 Allergy Admin 2 12:19:10 CDT CPT-40475 Allergy Admin 2 12:46:56 CDT CPT-47817 Allergy Admin 2 15:05:13 CDT CPT-09727 Allergy Admin 2 15:36:20 CDT CPT-61132 Allergy Admin 2 09:58:47 [facility]IDE [facility] CPT-56150 Allergy Admin 2 12:18:06 HIDE [facility]ER CPT-53105 Allergy Admin 2 10:01:48 HIDE D[facility]ER CPT-36665 Allergy Admin 2 12:17:53 HIDE D[facility]ER CPT-66237 Allergy Admin 2 10:06:44 HIDE [facility] CPT-61121 Allergy Admin 2 10:13:04 HIDE DYER CPT-83514 Venipuncture Draw Fee 10:09:07 HIDE D[facility]ER CPT-94791 Bone Density 12:24:51 HIDE D[facility]ER CPT-94552 Allergy Admin 2 11:29:41 HIDE D[facility]ER CPT-35995 Allergy Admin 2 16:07:15 HIDE D[facility]ER CPT-57975 Breathing Treatment 06:34:33 HIDE D[facility]ER CPT-J0702 Celestone 12 mg (Betamethasone) 06:34:33 CS T CPT-72511 Abx/Therapy Injection 06:34:33 HIDE [facility]ER CPT-59929 Breathing Tx 11:07:33 HIDE D[facility] CPT-33864 Allergy Admin 2 10:02:33 CDT CPT-14715 Allergy Admin 2 10:02:33 CDT CPT-10531 Allergy Admin 2 15:26:19 CDT CPT-66830 Administration single or combination vac cine inc oral 15:41:12 CDT CPT-73052 Influenza split virus > age 3 15:41:12 CDT
--- OUTSIDE RECORDS SUMMARY | 2020-09-15 14:38 | XMS REPORT | Clinical Summary ---
Author Author Admin, Supriya Zuniga Organization [facility] Address Unknown Phone Unavailable Allergies, Adverse Reactions, [...] Yang APRN Pruritus vulvae Active Ashley Yokum PROFESSOR [employer] LANGUAGES Screening mammogram V76.12 Resolved Ashley Yokum A PRN Other screening mammogram Sinusitis, acute maxillary 461.0 Inactive 7 Ashley Yokum PROF[employer]ANG[employer]AGES Acute maxillary sinusitis Diarrhea, acute 787.91 Resolved Ashley Yokum PROF[employer]ANG[employer]AGES Diarrhea Vaginal candidiasis 112.1 Resolved Ashley Yokum A PRN Candidiasis of vulva and vagina Accidental fall E888.9 Resolved Ashley Yokum PROF[employer] LANGUAGES Unspecified fall Contusion of left hand, initial encounter 923.20 Resol burak Ashley Yokum PROF[employer]ANG[employer]AGES Contusion of hand(s) Contusion of right upper arm, subsequent encounter V58.89 201 09/14/21 Resolved Ashley Yokum PROFESS[employer]ANGUAGES Encounter for other specified a ftercare Ganglion cyst of left wrist 727.41 Active Derrick Younger MD Ganglion of joint Body Mass Index 31.0-31.9 Adult Resolved 2017 Ashley Yokum PROF[employer]ANGUAGES Body Mass Index 31.0-31.9, adult Plantar fasciitis 728.71 Active Ashley Yokum PROF[employer]ANG[employer] Plantar fascial fibromatosis Bronchitis, acute 466.0 Inactive Ashley Yokum APR N Acute bronchitis Body Mass Index 30.0-30.9 Adult Resolved 2017 Ashely Yokum PROF[employer]ANGUAGES Body Mass Index 30.0-30.9, adult Allergic conjunctivitis, bilateral 372.14 Resolved 2 Ashley Yokum PROF[employer]ANG[employer]AGES Other chronic allergic conjunctivitis Skin tags; irritated/inflammed 701.9 Resolved 11/10 Ashley Yokum PROF[employer] LANGUAGES Unspecified hypertrophic and atrophic co nditions of skin Body Mass Index 31.0-31.9 Adult Refinement 2017 Ashley Yokum PROF[employer]ANG[employer]AGES Body Mass Index 31.0-31.9, adult BMI 30-30.9 Refinement Ashley Yokum PROF[employer]ANGUAGES Body Mass Index 31.0-31.9, adult BMI 31-31.9 Refinement Ashley Yokum PROF[employer] LANGUAGES Body Mass Index 31.0-31.9, adult BMI 32-32.9 Refinement Lois Faith RN Body Mass Index 31.0-31.9, adult BMI 31-31.9 Active Viviana Rubio APRN-Julieta Body Mass Index 31.0-31.9, adult Major depression, recurrent, moderate 296.32 Active Ashley Yokum PROF[employer]ANG[employer]AGES Major depressive disorder, recurrent epi sode, moderate degree Obesity Class I (BMI 30-34.9) Active Ashley Y okum PROFESSOR [employer]ANGUAGES Obesity, unspecified Nausea and vomiting 787.01 Resolved Ashley Yokum A PRN Nausea with vomiting Gastroenteritis acute 558.9 Resolved Ashley Yokum PROF[employer]ANG[employer]AGES Other and unspecified noninfectious gastroenteritis and colitis GERD 530.81 Active Ashley Yokum PROF[employer]OR [employer] LANGUAGES E sophageal reflux Joint pain 719.40 Resolved Ashley Yokum PROF[employer] LANGUAGES Pain in joint, site unspecified Preventive health care, adult V70.0 Inactive /06 Ashley Yokum PROFESSOR [employer] LANGUAGES Routine general medical examination at a health care facility Blood in urine 599.70 Resolved Ashley Yokum PROF[employer]ANGUAGES Hematuria, unspecified Other abnormal findings in urine Resolved Ashley Yokum PROF[employer] LANGUAGES Urinary tract infection 599.0 Inactive Ashley Yok um PROFESSOR [employer] LANGUAGES Urinary tract infection, site not specified Chafing of skin 709.8 Resolved Ashley Yokum PROFESSOR [employer] LANGUAGES Other specified disorders of skin Preventive care V70.0 Active Supriya Huston A Routine general medical examination at a health care facility Gynecological examination, routine V72.3 Inactive 2 Ashley Yokum PROF[employer]ANG[employer]AGES Special investigations and e xaminations - Gynecological examination Near syncope 780.2 Resolved Ashley Yokum PROF[employer]OR [employer] LANGUAGES Syncope and collapse Lightheadedness 780.4 Resolved Ashley Yokum PROF[employer]ANGUAGES Dizziness and giddiness Headache 784.0 Resolved Ashley Yokum PROF[employer]ANGUAGES Headache Sore throat 462 Resolved Ashley Yokum PROF[employer] LANGUAGES Acute pharyngitis Sinusitis - acute 461.9 Resolved Ashley Yokum APR N Acute sinusitis, unspecified Tired all the time 780.79 Resolved Ashley Yokum AP RN Other malaise and fatigue Fatigue 780.79 Inactive Ashley Yokum PROF[employer] LANG[employer]AGES Other malaise and fatigue ABNORMAL WEIGHT GAIN ICD-783.1 Inactive Wayne YANG ALLERGIC RHINITIS ICD-477.9 Inactive Lois Angelo mendieta [employer]ANG[employer]AGES SINUSITIS ICD-473.9 Inactive Lois Deric PROF[employer]OR [employer] LANGUAGES 2012 WHEEZING ICD-786.07 Inactive Lois Deric PROF[employer] LANGUAGES 2012 UPPER RESPIRATORY INFECTION, ACUTE ICD-465.9 I nactive Lois Deric [employer]ANGUAGES NEED FOR DESENSITIZATION TO ALLERGENS ICD-V07.1 8 Inactive Ashley Yokum PROF[employer] LANGUAGES OBESITY ICD-278.00 Inactive Wayne YANG CONTACT DERMATITIS DUE TO POISON ARANZA ICD-692.6 Inactive Lois Leos PROF[employer]ANGUAGES NEED PROPHYLACTIC VACCINATION&INOCULATION FLU ICD-V04.81 Inactive Wayne Harms PA GERD ICD-530.81 Inactive Lois Leos [employer]ANGUAGES 03/22 LONG-TERM (CURRENT) USE OF OTHER MEDICATIONS ICD-V58.69 6 Inactive Wayne Harms PA NECK PAIN ICD-723.1 Inactive Wayne Harms PA 06/15 DEGENERATIVE DISC DISEASE, CERVICAL SPINE ICD-722.4 Inactive Wayne Harms PA SKIN TAG ICD-701.9 Inactive Wayne Harms PA G E R D ICD-530.81 Inactive Lois Leos PROF[employer] LANGUAGES CANDIDIASIS OF SKIN AND NAILS ICD-112.3 Inacti ve Wayne Harms PA AFTERCARE FOLLOW SURGERY MUSCULOSKEL SYSTEM NEC ICD-V58.78 Inactive Wayne Harms PA PHARYNGITIS ICD-462 Inactive Wayne Harms PA 05/03 OTHER SCREENING MAMMOGRAM ICD-V76.12 Inactive Wayne Harms PA DYSPAREUNIA, MILD ICD-625.0 Inactive Wayne Harm s PA CONTACT DERMATITIS DUE TO POISON ARANZA ICD-692.6 Inactive Wayne Harms PA Sinusitis, chronic ICD-473.9 Inactive Ashley vallejo PROF[employer] LANGUAGES Myalgia ICD-729.1 Inactive Wayne Harms PA Rheumatoid [...] PA Runny nose ICD-472.0 Inactive Ashley Yang [employer]ANG[employer]AGES Influenza like illness ICD-487.1 Inactive Wayne Moon PA Acute maxillary sinusitis ICD-461.0 Inactive Ashley Yokum PROF[employer]ANGUAGES Preventive health care ICD-V70.0 Inactive Jenny mo Yokum PROFESSOR [employer] LANGUAGES Well women exam ICD-V72.3 Inactive Ashley Yokum PROF[employer]ANGUAGES Screening mammogram ICD-V76.12 Inactive Ashley Yokum PROF[employer]ANGUAGES Sinusitis, acute maxillary ICD-461.0 Inactive Ashley Yokum PROF[employer] LANGUAGES Diarrhea, acute ICD-787.91 Inactive Ashley Merazu m PROF[employer] LANGUAGES Vaginal candidiasis ICD-112.1 Inactive Ashley Y abdonum PROFESS[employer] LANGUAGES Accidental fall ICD-E888.9 Inactive Ashley Yoku m PROFESS[employer]ANGUAGES Contusion of left hand, initial encounter ICD-923.20 Inactive Ashley Yokum PROF[employer]ANGUAGES Contusion of right upper arm, subsequent encounter ICD-V58.89 Inactive Ashley Yokum PROF[employer] LANGUAGES Body Mass Index 31.0-31.9 Adult Inac tive Ashley Yokum PROF[employer]ANGUAGES Bronchitis, acute ICD-466.0 Inactive Ashley Yok um PROF[employer]OR [employer]ANGUAGES Body Mass Index 30.0-30.9 Adult Inac tive Ashley Yokum PROF[employer]ANGUAGES Allergic conjunctivitis, bilateral ICD-372.14 I nactive Ashley Yokum PROF[employer]ANGUAGES Skin tags; irritated/inflammed ICD-701.9 Inact rancho Ashley Yokum PROF[employer]ANGUAGES Nausea and vomiting ICD-787.01 Inactive Ashley Yokum PROF[employer]ANG[employer] Gastroenteritis acute ICD-558.9 Inactive Conchis hi Yokum PROF[employer] LANGUAGES Joint pain ICD-719.40 Inactive Ashley Yokum APR N Preventive health care, adult ICD-V70.0 Inacti ve Ashley Yokum PROF[employer]ANGUAGES Blood in urine ICD-599.70 Inactive Ashley Yokum PROF[employer]ANGUAGES Other abnormal findings in urine [place] ctive Ashley Yokum PROF[employer]ANGUAGES Urinary tract infection ICD-599.0 Inactive K athi Yokum PROF[employer]OR [employer] LANGUAGES Chafing of skin ICD-709.8 Inactive Ashley Yokum PROF[employer]ANGUAGES Gynecological examination, routine ICD-V72.3 I nactive Ashley Yokum PROF[employer]ANGUAGES Near syncope ICD-780.2 Inactive Ashley Yokum AP RN Lightheadedness ICD-780.4 Inactive Ashley Yokum PROF[employer]ANG[employer]AGES Headache ICD-784.0 Inactive Ashley Yokum PROF[employer] LANGUAGES 2020 Sore throat ICD-462 Inactive Ashley Yokum PROF[employer] LANGUAGES 02/17/17 Sinusitis - acute ICD-461.9 Inactive Ashley Yok um PROF[employer]ANGUAGES Tired all the time ICD-780.79 Inactive Ashley coppolaum PROFESSOR [employer] LANGUAGES Fatigue ICD-780.79 Inactive Ashley Mirеленаum PROFESSOR [employer] LANGUAGES 2020 Medication List Medication Instructions Start Date Stop Date Generic Name ND Status Provider Patient Instruction PHENTERMINE HCL 37.5 MG TABS 1/2 TAB IN MORING, CAN IN CREASE TO 1 TAB IN MORING. TAKE 30 MIN BEFORE BREAKFAST OR 2 HRS AFTER BREAKFAST PHENTERMINE HCL 86107394877 Active Shanelle Rivera RN Active EQ LORATADINE 10 MG ORAL TABLET TAKE 1 TABLET BY MOUTH ONCE DAILY NEEDED FOR ALLERGIES LORATADINE 44934880109 Active Shanelle Rivera RN Active ALPRAZOLAM 0.25 MG TABS TAKE 1 TO 2 TABLETS BY MOUTH THREE TIMES DAILY NEEDED ALPRAZOLAM 72840450550 Active Shanelle Rivera RN Active MUCINEX D 60-600 MG ORAL TABLET EXTENDED RELEASE 12 HO UR 1 po BID PRN Congestion PSEUDOEPHEDRINE-GUAIFENESIN 33029132616 Active Ashleykaleigh Merazum ELAINA Active ZYRTEC ALLERGY 10 MG ORAL CAPSULE 1qd CETIR IZINE HCL 71895684479 No Longer Active Ashley Yoеленаum PROFESSOR [employer] LANGUAGES Active HAIR, SKIN, NAILS VITAMINS take 1 tab by mouth 2x a day HAIR, SKIN, NAILS VITAMINS Active Ashley Yokum PROFESSOR [employer] LANGUAGES Active CENTRUM SILVER FOR WOMEN OVER 50 1 tab by mouth by day. CENTRUM SILVER FOR WOMEN OVER 50 Active Ashley Yokum PROFESSOR [employer] LANGUAGES Active VITAMIN D3 1000 UNIT ORAL CAPSULE 1 po qd CH OLECALCIFEROL 70252588187 Active Ashley Yoеленаum ELAINA Active PREDNISONE 20 MG ORAL TABLET Take 2 tablets by mouth d aily for 2 days then 1 tablet daily for 2 days. PREDNISONE 77197032668 No Longer Active Ashley Merazum ELAINA Active MELOXICAM 15 MG ORAL TABLET TAKE 1 TABLET BY MOUTH IN THE MORNING 2 MELOXICAM 40401860567 Active Shanelle Rivera RN Active SIMVASTATIN 40 MG ORAL TABLET TAKE 1 TABLET BY MOUTH ONCE DA JAVON AT BEDTIME SIMVASTATIN 82269779287 Active RENATA MurilloA Active [id number] ORAL TABLET MULT IPLE MINERALS 53166861855 Active Lois Faith RN Active SERTRALINE HCL 100 MG ORAL TABLET Take 1 tablet by mouth once da javon SERTRALINE HCL 35985447544 Active RENATA MurilloA A ctive REGLAN 10 MG ORAL TABLET 1 po qid for bowels 3 METOCLOPRAMIDE HCL 46850718656 No Longer Active Ashley Clarkeyoni DELANEY A ctive ADK 1039-1892-213 UNIT-MCG ORAL CAPSULE 1 daily VITAMINS A D K 77639934392 Active Ashley Clarkekum ELAINA Active B-12 2500 MCG ORAL TABLET 1 daily CYANOCOBAL HUNT 57097873154 No Longer Active Ashley Ktum ELAINA Active ESTRADIOL 2 MG TABS Take 1 tablet by mouth once daily ESTRADIOL 57173259970 Active Shanelle Rivera RN Active MACROBID 100 MG ORAL CAPSULE 1 cap by mouth twice daily NITROFURANTOIN MONOHYD MACRO 37599156502 No Longer Active Ashley Clarkekum PROFESSOR [employer] LANGUAGES Active FISH OIL + D3 2734-8137 MG-UNIT ORAL CAPSULE 1 dailly 4 FISH OIL-CHOLECALCIFEROL 90487457826 Active Ashley Yokum PROF[employer] LANGUAGES Acti ve PROAIR HFA 108 (90 BASE) MCG/ACT INHALATION AEROSOL SO LUTION 2 puffs four times a day as needed ALBUTEROL SULFATE 22869636049 No Long er Active Ashley Yokum PROFESSOR [employer] LANGUAGES Active ZITHROMAX Z-SANJANA 250 MG ORAL TABLET Take 2 tablets toda y and 1 each day till gone AZITHROMYCIN 27877623556 No Longer Active Ashley Yokum PROF[employer] LANGUAGES Active POLYTRIM 32127-0.1 UNIT/ML-% OPHTHALMIC SOLUTION 1 gtt to affected eye q3h x 7 days POLYMYXIN B-TRIMETHOPRIM 72493726339 No Longer Active Ashley Yokum PROF[employer] LANGUAGES Active IBUPROFEN 200 MG ORAL TABLET Take 3 tablets every 6hrs 201 09/17/15 IBUPROFEN 06082317659 No Longer Active Ashley Yokum [employer]ANGUAGES Active DIFLUCAN 150 MG ORAL TABLET Take one tablet today and repeat in 72 hours FLUCONAZOLE 40510139429 No Longer Active Derrick cardenas MD Active DIFLUCAN 150 MG ORAL TABLET 1 by mouth for yeast 03/03 FLUCONAZOLE 70161986601 No Longer Active Ashley Yokum PROF[employer] LANGUAGES Active AUGMENTIN 875-125 MG ORAL TABLET Take one tablet twice a day with food AMOXICILLIN-POT CLAVULANATE 86442919568 No Longer Act rancho Ashley Yokum PROF[employer] LANGUAGES Active CALCIUM 600 + D 600-200 MG-UNIT ORAL TABLET Take one daily CALCIUM CARB-CHOLECALCIFEROL 58391921814 No Longer Active Ashley Yokum [employer]ANGUAGES Active FLONASE 50 MCG/ACT NASAL SUSPENSION 1 spray each nostr il twice daily for allergies and runny nose FLUTICASONE PROPIONATE 92074052382 No Longer Active Ashley Yokum [employer] LANGUAGES Active CLARITIN-D 12 HOUR 5-120 MG ORAL TABLET EXTENDED RELEA SE 12 HOUR Take one tablet BID as needed for allergies LORATADINE-PSEUDOEP HEDRINE 23107319353 No Longer Active Beth Turner HEAD GRINDER Active AMOXICILLIN-POT CLAVULANATE 875-125 MG ORAL TABLET 1 pill by mouth twice daily AMOXICILLIN-POT CLAVULANATE 81675680149 No Longer Act rancho Ashley Yokum PROF[employer] LANGUAGES Active AMOXICILLIN 500 MG ORAL CAPSULE Take 1 capsule by mout h three times a day X 10 days AMOXICILLIN 20923866985 No Longer Active Wayne Denys paul PA Active PROBIOTIC DAILY ORAL CAPSULE Take one daily PROBIO TIC PRODUCT 84271573571 Active Wayne Red PA Active TYLENOL 325 MG ORAL TABLET Take 2 every 6hrs prn A CETAMINOPHEN 06289012218 Active Wayne Red PA Active ACETAMINOPHEN 500 MG ORAL TABLET prn RICH TAMINOPHEN 18434082110 No Longer Active Wayne Harms PA Active CLARITIN-D 12 HOUR 5-120 MG ORAL TABLET EXTENDED RELEA SE 12 HOUR Take one tablet bid LORATADINE-PSEUDOEPHEDRINE 90850950341 No Longe r Active Wayne Harms PA Active MOBIC 15 MG ORAL TABLET 1 tablet by mouth daily in am with PPI 2 MELOXICAM 18555573988 No Longer Active Wayne Harms PA Acti ve HYDROCORTISONE 2.5 % EXTERNAL CREAM Apply three times a day to affected area HYDROCORTISONE 49898268708 No Longer Active Wayne Harms PA Active VITAMIN D3 1000 UNIT ORAL TABLET Take two daily CHOLECALCIFEROL 14692560514 No Longer Active Wayne Harms PA Active PROBIOTIC ORAL CAPSULE Take one daily PROBIOTIC PRODUCT 81348833149 No Longer Active Wayne Harms PA Active GREEN TEA SLIM ORAL TABLET Take one daily [facility] NATURAL PRODUCTS 65022982159 No Longer Active Wayne Harms PA Active BENZONATATE 200 MG ORAL CAPSULE Take one capsule three times a d ay BENZONATATE 09209527726 No Longer Active Wayne Harms PA Act rancho ZITHROMAX Z-SANJANA 250 MG ORAL TABLET 2 today, then 1 daily for 4 d ays AZITHROMYCIN 93873596387 No Longer Active Wayne Harms PA Ac tive ZITHROMAX 250 MG ORAL TABLET 2 po today, then 1 po q days 2-5 20 31/03/18 AZITHROMYCIN 31503145560 No Longer Active Beth Turner HEAD GRINDER Active OMEPRAZOLE 20 MG ORAL CAPSULE DELAYED RELEASE 1 tablet by mo [facility] daily OMEPRAZOLE 18057467687 Active Supriya Huston RMA Active ZITHROMAX Z-SANJANA 250 MG ORAL TABLET 2x1day,7h5gcrq 2014 AZITHROMYCIN 75830579072 No Longer Active Wayne Harms PA Active FISH OIL 1200 MG ORAL CAPSULE One daily prn OME GA-3 FATTY ACIDS 61756767828 No Longer Active Wayne Harms PA Active CEPHALEXIN 250 MG ORAL CAPSULE Take one tablet qid 201 05/25/29 CEPHALEXIN 71127459377 No Longer Active Wayne Harms PA Active VITAMIN D3 1000 UNIT ORAL TABLET 1qd CHOLEC ALCIFEROL 60502137654 No Longer Active Wayne Harms PA Active B-12 2000 MCG ORAL TABLET 1qd CYANOCOBALAMI N 20509328512 No Longer Active Wayne Harms PA Active ACIPHEX 20 MG ORAL TABLET DELAYED RELEASE 1qd 10/28 RABEPRAZOLE SODIUM 47830419328 No Longer Active Wayne Harms PA Active HYDROCORTISONE 2.5 % EXTERNAL CREAM apply 3-4 times a day to affected area HYDROCORTISONE 12208182114 No Longer Active Wayne Harms PA Active MUCINEX 600 MG ORAL TABLET EXTENDED RELEASE 12 HOUR 2qd GUAIFENESIN 80223884525 No Longer Active Wayne Harms PA Active TUSSIONEX PENNKINETIC ER 10-8 MG/5ML ORAL SUSPENSION E XTENDED RELEASE 5ml po q12hr PRN Cough HYDROCOD POLST-CHLORPHEN POLST 5 2981197470 No Longer Active Wayne Harms PA Active ZITHROMAX 250 MG ORAL TABLET 2 po today, then 1 po q days 2-5 20 26/06/21 AZITHROMYCIN 92177944291 No Longer Active Wayne Harms PA Ac tive CLARITIN 10 MG ORAL TABLET one tablet daily THEO ATADINE 72258936925 No Longer Active Wayne Harms PA Active FLAGYL 500 MG ORAL TABLET 1 tablet by mouth three times daily 20 28/05/03 METRONIDAZOLE 19005838293 No Longer Active Wayne Harms PA A ctive CHERATUSSIN AC 100-10 MG/5ML ORAL SYRUP one teaspoon qid. 9 GUAIFENESIN-CODEINE 91718356104 No Longer Active Wayne Harms PA Act rancho VITAMIN D 1000 UNIT ORAL TABLET 1qd CHOLECA LCIFEROL 42440897867 No Longer Active Wayne Harms PA Active CYMBALTA 60 MG ORAL CAPSULE DELAYED RELEASE PARTICLES 1 cap by mouth daily DULOXETINE HCL 08796700855 No Longer Active Wayne Harms PA Active AMOXICILLIN 500 MG ORAL CAPSULE 2 caps tid for 10days AMOXICILLIN 35995905921 No Longer Active Wayne Harms PA Active CALCIUM + D 600-200 MG-UNIT TABS Take one by mouth daily CALCIUM CARBONATE-VITAMIN D 32395984841 No Longer Active Wayne Harms PA Active CENTRUM SILVER ADULT 50+ ORAL TABLET 1qd 2013 MULTIPLE VITAMINS-MINERALS 00345379212 No Longer Active Wayne Harms PA Active VENLAFAXINE HCL 75 MG ORAL TABLET 1tid VE NLAFAXINE HCL 86140790456 No Longer Active Wayne Harms PA Active CLARITIN 10 MG ORAL TABLET 1 tablet by mouth daily as needed for allergies LORATADINE 83849950761 No Longer Active Wayne Harms PA Acti ve HYDROCORTISONE 2.5 % EXTERNAL CREAM Apply four times a day to af fected area HYDROCORTISONE 49327238156 No Longer Active Wayne Harms PA Active ZITHROMAX 250 MG ORAL TABLET 2 po today, then 1 po q days 2-5 20 26/02/30 AZITHROMYCIN 23599200722 No Longer Active Wayne Harms PA Ac tive ZITHROMAX 250 MG ORAL TABLET 2 po today, then 1 po q days 2-5 20 27/02/16 AZITHROMYCIN 39643593178 No Longer Active Wayne Harms PA Ac tive CYMBALTA 30 MG ORAL CAPSULE DELAYED RELEASE PARTICLES 3 caps daily DULOXETINE HCL 04653413044 No Longer Active Wayne Harms PA Active CYMBALTA 60 MG ORAL CAPSULE DELAYED RELEASE PARTICLES one tablet daily, takes 30mg. with 60mg. to make 90 mg. DULOXETINE HCL 82212592655 No Longer Active Wayne Harms PA Active CYMBALTA 30 MG ORAL CAPSULE DELAYED RELEASE PARTICLES 1 daily wi th 60mg DULOXETINE HCL 26218634440 No Longer Active Wayne Harms PA Active ZITHROMAX 250 MG ORAL TABLET 2 po today, then 1 po q days 2-5 20 26/12/21 AZITHROMYCIN 19907946825 No Longer Active Ismael YANG Active PREDNISONE 20 MG ORAL TABLET 3tab x 2days,2tab x 2days ,1tab x 2days,1/2tab x 2days PREDNISONE 10146064717 No Longer Active Wayne Vera jarvis PA Active PREMARIN 0.625 MG ORAL TABLET Take one by mouth daily ESTROGENS CONJUGATED 17292281899 No Longer Active Wayne Harms PA Active ZITHROMAX 250 MG ORAL TABLET 2 po today, then 1 po q days 2-5 20 26/06/19 AZITHROMYCIN 09671853100 No Longer Active Nereyda Lucke Activ e OMEGA-3 1000 MG ORAL CAPSULE 2qd OMEGA-3 FA TTY ACIDS 24707857060 No Longer Active Wayne Harms PA Active BENADRYL ITCH STOPPING 1-0.1 % EXTERNAL CREAM prn DIPHENHYDRAMINE- ZINC ACETATE 38112463957 No Longer Active Wayne Harms PA Active LOTRISONE 1-0.05 % EXTERNAL CREAM Apply bid CLOTRIMAZOLE-BETAMETHASONE 83978119702 No Longer Active Wayne Harms PA Active ZITHROMAX Z-SANJANA 250 MG ORAL TABLET take as directed 26/04/19 AZITHROMYCIN 60849695545 No Longer Active Wayne Harms PA Active NYSTATIN 237828 UNIT/GM EXTERNAL POWDER Apply to affected areas BID NYSTATIN 62847903319 No Longer Active Wayne Harms PA Acti ve BENADRYL 25 MG ORAL CAPSULE prn DIPHENHYDRAMINE HCL 09781986109 Active Wayne Harms PA Active LOTRISONE 1-0.05 % EXTERNAL CREAM apply twice a day 20 25/02/17 CLOTRIMAZOLE-BETAMETHASONE 08363624741 No Longer Active Wayne Harms PA Active HYDROCODONE-ACETAMINOPHEN 5-325 MG ORAL TABLET 1-2 every 4hr s prn pain HYDROCODONE-ACETAMINOPHEN 17859859429 No Longer Activ e Wayne Harms PA Active VICODIN 5-300 MG ORAL TABLET 1-2 tabs every 6hrs as needed for p ain HYDROCODONE-ACETAMINOPHEN 02669483791 No Longer Active Wayne Harms PA Active BENADRYL 25 MG ORAL CAPSULE 1prn DIPHENHYDRA MINE HCL 26574750152 No Longer Active Jillina Frazell PROFESSOR [employer] LANGUAGES Active ROBITUSSIN DM 100-10 MG/5ML ORAL SYRUP 2 teaspoons four times a day DEXTROMETHORPHAN-GUAIFENESIN 69754763550 No Longer Active Jillina Frazell PROF[employer]OR [employer] LANGUAGES Active ACIPHEX 20 MG ORAL TABLET DELAYED RELEASE Take one by mouth daily RABEPRAZOLE SODIUM 65544640973 No Longer Active Jillina Frazell PROF[employer]OR [employer] LANGUAGES Active TUMS 500 MG ORAL TABLET CHEWABLE prn SADIQ CIUM CARBONATE ANTACID 58097731375 No Longer Active Jillina Frazell PROFESSOR [employer] LANGUAGES Active PEPTO-BISMOL 524 MG/30ML ORAL SUSPENSION prn 02/26 BISMUTH SUBSALICYLATE 00662690560 No Longer Active Jillina Frazell PROFESSOR OF LANGUAGES Active BACTRIM DS 800-160 MG ORAL TABLET 1bid SULFAMETHOXAZOLE-TRIMETHOPRIM 16465246678 No Longer Active Beth Naff HEAD GRINDER Active GAVISCON EXTRA RELIEF FORMULA CHEW prn A LUM HYDROXIDE-MAG CARBONATE CHEW 09147786046 Active Wayne Harms PA Active DIFLUCAN 150 MG ORAL TABLET 1stat FLUCONAZOL E 18970944418 No Longer Active Wayne Harms PA Active AUGMENTIN 875-125 MG ORAL TABLET 1 tab by mouth twice daily with food AMOXICILLIN-POT CLAVULANATE 28727861013 No Longer Act rancho Wayne Harms PA Active FLUTICASONE PROPIONATE 50 MCG/ACT NASAL SUSPENSION 1 t o 2 sprays each nostril twice a day FLUTICASONE PROPIONATE 50885366842 No Lo nger Active Wayne Harms PA Active HYDROCORTISONE 2.5 % EXTERNAL CREAM apply 2-4 times a day, a s directed, prn HYDROCORTISONE 73920969289 No Longer Active Wayne Harms PA Active ZITHROMAX Z-SANJANA 250 MG ORAL TABLET A ZITHROMYCIN 35312147100 No Longer Active Wayne Harms PA Active SIMVASTATIN 40 MG ORAL TABLET one tablet daily SIMVASTATIN 38124042282 No Longer Active Misty Yoo HEAD GRINDER Active LOVASTATIN 40 MG ORAL TABLET Take one by mouth daily 12/11 LOVASTATIN 08244442148 No Longer Active Misty Yoo HEAD GRINDER Active PREDNISONE 20 MG ORAL TABLET 2 PO qd x 2d, 1 PO qd x 2d, 1/2 PO qd x 2d PREDNISONE 75357427585 No Longer Active Ismael silva PA Active ZITHROMAX 250 MG ORAL TABLET two tablets now and one daily x 4 d ays AZITHROMYCIN 88574041784 No Longer Active Misty Yoo HEAD GRINDER Active ZOLPIDEM TARTRATE 10MG TABS (ZOLPIDEM TARTRATE) 1 at bedtime as needed Active Supriya Betzaida RMA Active CLOBETASOL PROPIONATE 0.05 % EXTERNAL CREAM apply as directed CLOBETASOL PROPIONATE 31455970191 No Longer Active Wayne Harms PA A ctive CYMBALTA 30 MG ORAL CAPSULE DELAYED RELEASE PARTICLES takes 90mg qod alt with 60mg DULOXETINE HCL 30164912199 No Longer Active Wayne Harm s PA Active ZITHROMAX 250 MG ORAL TABLET 2 po today, then 1 po q days 2-5 20 12/24/14 AZITHROMYCIN 51557160681 No Longer Active Wayne Harms PA Ac tive TRIAMCINOLONE ACETONIDE 0.1 % EXTERNAL CREAM apply qid TRIAMCINOLONE ACETONIDE 26638082080 No Longer Active Wayne Harms PA Active ALPRAZOLAM 0.25 MG ORAL TABLET 1 tab three times a day 201 02/23/14 ALPRAZOLAM 47034935054 No Longer Active Wayne Harms PA Active ZOLPIDEM TARTRATE 5 MG ORAL TABLET 1 at bedtime as needed ZOLPIDEM TARTRATE 04211436705 No Longer Active Beth Turner HEAD GRINDER Active ALPRAZOLAM 0.25 MG ORAL TABLET 1 tab three times a day ALPRAZOLAM 0.25 MG ORAL TABLET 181469 ALPRAZOLAM Inactive TRIAMCINOLONE ACETONIDE 0.1 % EXTERNAL CREAM apply qid TRIAMCINOLONE ACETONIDE 0.1 % EXTERNAL CREAM 4875592 TRIAMCINOLONE A CETONIDE Inactive CYMBALTA 30 MG ORAL CAPSULE DELAYED RELEASE PARTICLES takes 90mg qod alt with 60mg CYMBALTA 30 MG ORAL CAPSULE DELAYED RELEA SE PARTICLES 130389 DULOXETINE HCL Inactive CLOBETASOL PROPIONATE 0.05 % EXTERNAL CREAM apply as directed CLOBETASOL PROPIONATE 0.05 % EXTERNAL CREAM 214769 CLOBETASOL PROPI KELVIN Inactive LOVASTATIN 40 MG ORAL TABLET Take one by mouth daily 2 LOVASTATIN 40 MG ORAL TABLET 256834 LOVASTATIN Inactive ZITHROMAX Z-SANJANA 250 MG ORAL TABLET 03/03 ZITHROMAX Z-SANJANA 250 MG ORAL TABLET 881688 AZITHROMYCIN Inactive HYDROCORTISONE 2.5 % EXTERNAL CREAM apply 2-4 times a day, a s directed, prn HYDROCORTISONE 2.5 % EXTERNAL CREAM 077121 HYDRO CORTISONE Inactive FLUTICASONE PROPIONATE 50 MCG/ACT NASAL SUSPENSION 1 t o 2 sprays each nostril twice a day FLUTICASONE PROPIONA TE 50 MCG/ACT NASAL SUSPENSION 2240150 FLUTICASONE PROPIONATE Inactive AUGMENTIN 875-125 MG ORAL TABLET 1 tab by mouth twice daily with food AUGMENTIN 875-125 MG ORAL TABLET AMOXICIL BLOSSOM-POT CLAVULANATE Inactive DIFLUCAN 150 MG ORAL TABLET 1stat DIFLUCAN 150 MG ORAL TABLET 643757 FLUCONAZOLE Inactive PEPTO-BISMOL 524 MG/30ML ORAL SUSPENSION prn PEPTO-BISMOL 524 MG/30ML ORAL SUSPENSION BISMUTH SUBSALICYLATE Inactive TUMS 500 MG ORAL TABLET CHEWABLE prn TUMS 500 MG ORAL TABLET CHEWABLE 693953 CALCIUM CARBONATE ANTACID Inactive ACIPHEX 20 MG ORAL TABLET DELAYED RELEASE Take one by mouth daily ACIPHEX 20 MG ORAL TABLET DELAYED RELEASE 603132 RABEPRAZOLE SODIUM Inactive ROBITUSSIN DM 100-10 MG/5ML [...] pain HYDROCODONE-ACETAMINOPHEN 5-325 MG ORAL TABLET 8 72475 HYDROCODONE-ACETAMINOPHEN Inactive LOTRISONE 1-0.05 % EXTERNAL CREAM apply twice a day 20 25/02/17 LOTRISONE 1- 0.05 % EXTERNAL CREAM CLOTRIMAZOLE-BETAMETHASONE Inactive NYSTATIN 938638 UNIT/GM EXTERNAL POWDER Apply to affected areas BID NYSTATIN 188944 UNIT/GM EXTERNAL POWDER 853006 NYSTATIN Inactive ZITHROMAX Z-SANJANA 250 MG ORAL TABLET take as directed 20 26/04/19 ZITHROMAX Z-SANJANA 250 MG ORAL TABLET 036749 AZITHROMYCIN Inact [place] LOTRISONE 1-0.05 % EXTERNAL CREAM Apply bid LOTRISONE 1- 0.05 % EXTERNAL CREAM CLOTRIMAZOLE-BETAMETHASONE Inactive BENADRYL ITCH STOPPING 1-0.1 % EXTERNAL CREAM prn BENADRYL ITCH STOPPING 1-0.1 % EXTERNAL CREAM DIPHENHYDRAMINE-ZINC ACETATE Inactive OMEGA-3 1000 MG ORAL CAPSULE 2qd OMEGA-3 1000 MG ORAL CAPSULE 600516 OMEGA-3 FATTY ACIDS Inactive ZITHROMAX 250 MG ORAL TABLET 2 po today, then 1 po q days 2-5 20 26/06/19 ZITHROMAX 250 MG ORAL TABLET 317174 AZITHROMYCIN [place] ctive PREMARIN 0.625 MG ORAL TABLET Take one by mouth daily PREMARIN 0.625 MG ORAL TABLET ESTROGENS CONJUGATED Inactive PREDNISONE 20 MG ORAL TABLET 3tab x 2days,2tab x 2days ,1tab x 2days,1/2tab x 2days PREDNISONE 20 MG ORAL TABLET 939814 PREDNIS ONE Inactive CYMBALTA 30 MG ORAL CAPSULE DELAYED RELEASE PARTICLES 1 daily wi th 60mg CYMBALTA 30 MG ORAL CAPSULE DELAYED RELEASE PARTICLES 845088 DULOXETINE HCL Inactive CYMBALTA 60 MG ORAL CAPSULE DELAYED RELEASE PARTICLES one tablet daily, takes 30mg. with 60mg. to make 90 mg. CYMBALTA 60 MG ORAL CAPSULE DELAYED RELEASE PARTICLES 566752 DULOXETINE HCL Inacti ve CYMBALTA 30 MG ORAL CAPSULE DELAYED RELEASE PARTICLES 3 caps daily CYMBALTA 30 MG ORAL CAPSULE DELAYED RELEASE PARTICLES 958966 DULOXE ROSANNE HCL Inactive HYDROCORTISONE 2.5 % EXTERNAL CREAM Apply four times a day to af fected area HYDROCORTISONE 2.5 % EXTERNAL CREAM 970255 HYDROCORTISO NE Inactive CLARITIN 10 MG ORAL TABLET 1 tablet by mouth daily as needed for allergies CLARITIN 10 MG ORAL TABLET 633110 LORATADINE Inact [place] VENLAFAXINE HCL 75 MG ORAL TABLET 1tid VENLAFAXINE HCL 75 MG ORAL TABLET 927944 VENLAFAXINE HCL Inactive CENTRUM SILVER ADULT 50+ ORAL TABLET 1qd 2013 CENTRUM SILVER ADULT 50+ ORAL TABLET MULTIPLE VITAMINS-MINERALS Inactive CALCIUM + D 600-200 MG-UNIT TABS Take one by mouth daily CALCIUM + D 600-200 MG-UNIT TABS CALCIUM CARBONATE-VITAMIN D Inactive AMOXICILLIN 500 MG ORAL CAPSULE 2 caps tid for 10days AMOXICILLIN 500 MG ORAL CAPSULE 002601 AMOXICILLIN Inactive CYMBALTA 60 MG ORAL CAPSULE DELAYED RELEASE PARTICLES 1 cap by mouth daily CYMBALTA 60 MG ORAL CAPSULE DELAYED RELE ASE PARTICLES 422909 DULOXETINE HCL Inactive VITAMIN D 1000 UNIT ORAL TABLET 1qd 4 VITAMIN D 1000 UNIT ORAL TABLET CHOLECALCIFEROL Inactive CHERATUSSIN AC 100-10 MG/5ML ORAL SYRUP one teaspoon qid. 9 CHERATUSSIN AC 100-10 MG/5ML ORAL SYRUP GUAIFENESIN-CODEINE Inactive FLAGYL 500 MG ORAL TABLET 1 tablet by mouth three times daily 20 28/05/03 FLAGYL 500 MG ORAL TABLET 492908 METRONIDAZOLE Inacti ve CLARITIN 10 MG ORAL TABLET one tablet daily CLARITIN 10 MG ORAL TABLET 345546 LORATADINE Inactive TUSSIONEX PENNKINETIC ER 10-8 MG/5ML [...] affected area HYDROCORTISONE 2.5 % EXTERNAL CREAM 997662 HYDRO CORTISONE Inactive ACIPHEX 20 MG ORAL TABLET DELAYED RELEASE 1qd ACIPHEX 20 MG ORAL TABLET DELAYED RELEASE 912270 RABEPRAZOLE SODIUM Inactive B-12 2000 MCG ORAL TABLET 1qd B-12 2000 MCG ORAL TABLET CYANOCOBALAMIN Inactive VITAMIN D3 1000 UNIT ORAL TABLET 1qd VITAMIN D3 1000 UNIT ORAL TABLET CHOLECALCIFEROL Inactive CEPHALEXIN 250 MG ORAL CAPSULE Take one tablet qid 201 05/25/29 CEPHALEXIN 250 MG ORAL CAPSULE 162868 CEPHALEXIN Inactive FISH OIL 1200 MG ORAL CAPSULE One daily prn FISH OIL 1200 MG ORAL CAPSULE OMEGA-3 FATTY ACIDS Inactive ZITHROMAX Z-SANJANA 250 MG ORAL TABLET 2x1day,4q1rbir 2014 ZITHROMAX Z-SANJANA 250 MG ORAL TABLET 048687 AZITHROMYCIN Inact [place] BENZONATATE 200 MG ORAL CAPSULE Take one capsule three times a d ay BENZONATATE 200 MG ORAL CAPSULE 122757 BENZONATATE Inactive GREEN TEA SLIM ORAL TABLET Take one daily GREEN TEA SLIM ORAL TABLET MISC NATURAL PRODUCTS Inactive PROBIOTIC ORAL CAPSULE Take one daily PROBIOTIC ORAL CAPSULE 0845297 PROBIOTIC PRODUCT Inactive VITAMIN D3 1000 UNIT ORAL TABLET Take two daily 05/05 VITAMIN D3 1000 UNIT ORAL TABLET CHOLECALCIFEROL Inactive HYDROCORTISONE 2.5 % EXTERNAL CREAM Apply three times a day to affected area HYDROCORTISONE 2.5 % EXTERNAL CREAM 672134 HYDRO CORTISONE Inactive MOBIC 15 MG ORAL TABLET 1 tablet by mouth daily in am with PPI 2 MOBIC 15 MG ORAL TABLET 218591 MELOXICAM Inactive CLARITIN-D 12 HOUR 5-120 MG ORAL TABLET EXTENDED RELEA SE 12 HOUR Take one tablet bid CLARITIN-D 12 HOUR 5 -120 MG ORAL TABLET EXTENDED RELEASE 12 HOUR LORATADINE-PSEUDOEPHEDRINE Inactive ACETAMINOPHEN 500 MG ORAL TABLET prn ACETAMINOPHEN 500 MG ORAL TABLET 429715 ACETAMINOPHEN Inactive CLARITIN-D 12 HOUR 5-120 MG [...] yeast 03/03 DIFLUCAN 150 MG ORAL TABLET 282784 FLUCONAZOLE Inactive DIFLUCAN 150 MG ORAL TABLET Take one tablet today and repeat in 72 hours DIFLUCAN 150 MG ORAL TABLET 155036 FLUCONAZOLE Inactive IBUPROFEN 200 MG ORAL TABLET Take 3 tablets every 6hrs IBUPROFEN 200 MG ORAL TABLET 805671 IBUPROFEN Inactive ZITHROMAX Z-SANJANA 250 MG ORAL TABLET Take 2 tablets toda y and 1 each day till gone ZITHROMAX Z-SANJANA 250 MG ORAL TABLET 441265 A ZITHROMYCIN Inactive PROAIR HFA 108 (90 [...] bowels 3 REGLAN 10 MG ORAL TABLET 945559 METOCLOPRAMIDE HCL Inactive PREDNISONE 20 MG ORAL TABLET Take 2 tablets by mouth d aily for 2 days then 1 tablet daily for 2 days. PREDNISONE 20 MG ORAL T ABLET 240169 PREDNISONE Inactive ZYRTEC ALLERGY 10 MG ORAL CAPSULE 1qd ZYRTEC ALLERGY 10 MG ORAL CAPSULE CETIRIZINE HCL Inactive ZITHROMAX 250 MG ORAL TABLET 2 po today, then 1 po q days 2-5 20 12/24/14 ZITHROMAX 250 MG ORAL TABLET 624480 AZITHROMYCIN [place]a ctive ZITHROMAX 250 MG ORAL TABLET two tablets now and one daily x 4 d ays ZITHROMAX 250 MG ORAL TABLET 188764 AZITHROMYCIN [place] ctive PREDNISONE 20 MG ORAL TABLET 2 PO qd x 2d, 1 PO qd x 2d, 1/2 PO qd x 2d PREDNISONE 20 MG ORAL TABLET 960440 PREDNISONE Inactive SIMVASTATIN 40 MG ORAL TABLET one tablet daily SIMVASTATIN 40 MG ORAL TABLET 618941 SIMVASTATIN Inactive BACTRIM DS 800-160 MG ORAL TABLET 1bid BACTRIM DS 800-160 MG ORAL TABLET 733100 SULFAMETHOXAZOLE-TRIMETHOPRIM Inactive ZITHROMAX 250 MG ORAL TABLET 2 po today, then 1 po q days 2-5 20 26/12/21 ZITHROMAX 250 MG ORAL TABLET 534345 AZITHROMYCIN [place] ctive ZITHROMAX 250 MG ORAL TABLET 2 po today, then 1 po q days 2-5 20 27/02/16 ZITHROMAX 250 MG ORAL TABLET 175813 AZITHROMYCIN [place] ctive ZITHROMAX 250 MG ORAL TABLET 2 po today, then 1 po q days 2-5 20 26/02/30 ZITHROMAX 250 MG ORAL TABLET 795815 AZITHROMYCIN [place] ctive ZITHROMAX 250 MG ORAL TABLET 2 po today, then 1 po q days 2-5 20 26/06/21 ZITHROMAX 250 MG ORAL TABLET 767931 AZITHROMYCIN [place] ctive ZITHROMAX 250 MG ORAL TABLET 2 po today, then 1 po q days 2-5 20 31/03/18 ZITHROMAX 250 MG ORAL TABLET 125483 AZITHROMYCIN [place] ctive ZITHROMAX Z-SANJANA 250 MG ORAL TABLET 2 today, then 1 daily for 4 d ays ZITHROMAX Z-SANJANA 250 MG ORAL TABLET 797870 AZITHROMYCIN Inactive AMOXICILLIN 500 MG ORAL CAPSULE Take 1 capsule by mout h three times a day X 10 days AMOXICILLIN 500 MG ORAL CAPSULE 106436 AMOX ICILLIN Inactive AMOXICILLIN-POT CLAVULANATE 875-125 MG ORAL TABLET 1 pill by mouth twice daily AMOXICILLIN-POT CLAVULANATE 875-125 MG ORAL TABL ET 049171 AMOXICILLIN-POT CLAVULANATE Inactive AUGMENTIN 875-125 MG ORAL TABLET Take one tablet twice a day with food AUGMENTIN 875-125 MG ORAL TABLET AMOXICILLIN-POT CLAVULANATE Inactive POLYTRIM 66556-0.1 UNIT/ML-% OPHTHALMIC SOLUTION 1 gtt to affected eye q3h x 7 days POLYTRIM 28802-0.1 UNIT/ML-% OPH THALMIC SOLUTION 705937 POLYMYXIN B-TRIMETHOPRIM Inactive MACROBID 100 MG ORAL CAPSULE 1 cap by mouth twice daily MACROBID 100 MG ORAL CAPSULE 0490984 NITROFURANTOIN MONOHYD MACRO In active Advance Directives [...] Fluarix, Agriflu(>= 18 yo)) Fluzone (>=3 yrs.) [ASA104] Seasonal influenza vaccine, injectable, containing preservative, for > 3 years old (Afluria, FluLaval, Fluzone, Fluvirin, Fluarix, Agriflu(>= 18 yo)) Fluzone (>3 yrs.) [OFF991] Seasonal influenza vaccine, injectable, containing preservative, for > 3 years old (Afluria, FluLaval, Fluzone, Fluvirin, Fluarix, Agriflu(>= 18 yo)) Fluarix (>3 yrs.) [HUI175] Diagnostic Results Date Name Value Unit Range Description Lab Report: CBC, Comp. Metabolic Panel, Lipid Panel, Magnesium - Chemistry sodium, serum 138 mmol/L 647-246 7363/09/02 carbon dioxide, venous blood 28.0 mmol/L 21.0-32 [...] 0.20 mg/dL 0.00-1.00 cholesterol, serum 228 mg/dL 279-838 9001/09/02 triglyceride, serum, fasting 236 mg/dL 30-200 HDL [...] 0.36-3.74 Encounters Code Encounter Date Provider Facility CPT-67994 [id number]-Cin Vst-Est Level III 17:07:11 CDT Jenny Yang [facility] [place] CPT-71402 31253-Hky Vst-Est Level III 17:51:44 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 [place] [facility] CPT-98960 Level 3 Est. Patient 11:09:39 CDT Viviana Rubio [facility] CPT-48513 56371-Vyv Vst-Est Level IV 09:14:31 CDT Conchis Yang [facility] [place] CPT-54113 93902-Mne Vst-Est Level III 22:05:50 CDT Jenny Yang [facility] [place] CPT-84976 Level 3 Est. Patient 15:00:02 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 Will jarquin [facility] CPT-07297 Level 2 Est. Patient 13:46:20 CDT Ashley peacock [facility] [place] CPT-32736 Level 2 Est. Patient 13:45:36 CDT Ashley Meraz [facility] [place] CPT-26570 Level 3 Est. Patient 15:52:07 CDT Ashley Meraz [facility] [place] CPT-63153 Level 3 Est. Patient 08:20:37 CDT Ashley Meraz [facility] [place] CPT-88019 Level 3 Est. Patient 15:06:41 CDT Derrick donaldson MD [facility] CPT-64584 Level 3 Est. Patient 11:13:21 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 Derrick donaldson MD [facility] CPT-99422 Level 3 Est. Patient 12:54:25 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 Ashley Meraz [facility] [place] CPT-14414 Level 3 Est. Patient 23:34:49 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 Ashley Meraz [facility] [place] CPT-31885 Level 3 Est. Patient 16:37:09 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 Ashley Meraz [facility] [place] CPT-87075 Level 3 Est. Patient 11:59:30 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 Ashley Meraz [facility] [place] CPT-51668 Level 4 Est. Patient 07:40:13 CDT Wayne delatorre [facility] [place] CPT-63833 Level 4 Est. Patient 08:06:18 CDT Wayne delatorre [facility] CPT-78807 Level 3 Est. Patient 11:14:45 CDT Wayne delatorre [facility] [place] CPT-18352 Level 3 Est. Patient 10:14:55 CDT Wayne delatorre [facility] [place] CPT-41835 Level 4 Est. Patient 15:23:47 CDT Wayne delatorre [facility] CPT-87941 Level 3 Est. Patient 07:50:51 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 Wayne delatorre [facility] CPT-59555 Level 3 Est. Patient 14:47:52 CDT Wayne YANG [facility] CPT-15692 Level 3 Est. Patient 11:28:46 CDT Wayne delatorre [facility] CPT-34218 Level 4 Est. Patient 14:48:43 CDT Wayne delatorre [facility] CPT-90403 Level 3 Est. Patient 14:10:18 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 Wayne delatorre PA [facility] CPT-65883 Level 3 Est. Patient 16:44:33 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 Wayne delatorre [facility] CPT-73393 Level 4 Est. Patient 08:22:34 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 Wayne delatorre [facility] CPT-16300 Level 4 Est. Patient 07:10:30 CDT Wayne delatorre [facility] CPT-59327 Level 3 Est. Patient 14:50:20 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 Wayne edlatorre [facility] CPT-65016 Level 3 Est. Patient 09:46:08 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 Zuleika cha APRN [facility] CPT-77446 Level 4 Est. Patient 07:56:24 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 Wayne delatorre [facility] CPT-11264 Level 3 Est. Patient 12:13:53 CDT Ismael Denton [facility] CPT-57103 Level 4 Est. Patient 12:28:51 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 Wayne delatorre [facility] CPT-61961 Level 3 Est. Patient 15:23:42 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 Wayne Marielle nandini TREY [facility] CPT-18539 Level 3 Est. Patient 06:34:33 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 Wayne delatorre TRE[facility] Procedures Code Procedure Name Date Entry Date Standard Desc ription CPT-97869 Allergy Admin 2 16:51:42 CDT CPT-38514 Allergy Admin 2 16:26:50 CDT CPT-12808 Allergy Admin 2 17:02:53 CDT CPT-42120 Allergy Admin 2 16:32:35 CDT CPT-61800 Allergy Admin 2 16:26:27 CDT CPT-J3420 Vitamin B12 1000mcg (Cyanocobalamin) 16:32:13 CDT CPT-26539 Abx/Therapy Injection 16:32:13 CDT CPT-64111 Allergy Admin 2 16:32:12 CDT CPT-13516 Allergy Admin 2 16:05:03 CDT CPT-28511 Allergy Admin 2 16:35:15 CDT CPT-74836 Allergy Admin 2 16:20:41 CDT CPT-84239 Allergy Admin 2 11:25:21 CDT CPT-41659 Allergy Admin 2 15:46:12 CDT CPT-[id number] (4274F) Influenza immunization administe red or previously received 17:51:44 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 CPT-36264 Spec Collection and Handling Fee 10:45:[address] CPT-[id number] (4274F) Influenza immunization administe red or previously received 10:20:17 CDT CPT-13265 Prv Med Est Pt 40-64yrs 16:26:57 CDT CPT-76245 Venipuncture Draw Fee 11:08:31 CDT CPT-87676 Magnesium - LAB USE ONLY 11:08:31 CDT 10/15 CPT-95961 TSH - LAB USE ONLY 11:08:31 CDT CPT-26058 Lipid - LAB USE ONLY 11:08:30 CDT 2 CPT-97285 CMP - LAB USE ONLY 11:08:30 CDT CPT-44192 CBC - LAB USE ONLY 11:08:30 CDT CPT-34989 Spec Collection and Handling Fee 16:14:51 C DT CPT-81242 UA w micro - LAB USE ONLY 16:14:51 CDT 2018 CPT-96288 Prv Med Est Pt 40-64yrs 08:34:49 CDT 10/01 CPT-13353 Sed Rate - LAB USE ONLY 10:50:49 CDT 10/02 CPT-52518 TSH - LAB USE ONLY 10:50:49 CDT CPT-63114 Lipid - LAB USE ONLY 10:50:49 CDT 0 CPT-76188 Magnesium - LAB USE ONLY 10:50:49 CDT 10/02 CPT-46491 CMP - LAB USE ONLY 10:50:49 CDT CPT-79823 CBC - LAB USE ONLY 10:50:49 CDT CPT-40069 Venipuncture Draw Fee 10:50:49 CDT CPT-48606 IV Hydration < or = 1 hr 22:05:50 CDT 04/16 CPT-J7030 Normal Saline 1000 mL 22:05:50 CDT CPT-89857 Abx/Therapy Injection 16:31:51 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 CPT-J2950 Phenergan 25 mg 16:31:51 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 CPT-04189 Abx/Therapy Injection 16:39:40 CDT CPT-93932 First Vx - Ix admin via ID I M or jet injects without counseling by physician 16:39:39 CDT CPT-83912 Prv Med Est Pt 40-64yrs 16:33:10 CDT 11/10 CPT-JTINJ Asp/Joint Injection 16:13:36 CDT CPT-51459 Allergy Admin 2 16:54:52 CDT CPT-55369 Allergy Admin 2 16:46:15 CDT CPT-46991 Allergy Admin 2 11:29:09 CDT CPT-82310 Allergy Admin 2 17:05:15 CDT CPT-49228 Allergy Admin 2 12:31:51 CDT CPT-57092 Allergy Admin 2 15:40:56 CDT CPT-36175 CBC - LAB USE ONLY 09:49:24 CDT CPT-42600 CMP - LAB USE ONLY 09:49:24 CDT CPT-32556 Lipid - LAB USE ONLY 09:49:24 CDT 8 CPT-60563 Venipuncture Draw Fee 09:49:24 CDT CPT-14939 Allergy Admin 2 10:46:11 CDT CPT-JTINJ Asp/Joint Injection 09:52:58 CDT CPT-88798 Skin tag rem 1-15 13:46:20 CDT CPT-56695 Knee, right, 3V - XRAY USE ONLY 13:07:09 CD T CPT-04414 Allergy Admin 2 11:56:38 CDT CPT-37497 Allergy Admin 2 12:00:55 CDT CPT-96365 Allergy Admin 2 16:42:13 CDT CPT-16019 Allergy Admin 2 16:27:55 CDT CPT-53503 Allergy Admin 2 13:24:26 CDT CPT-99753 Allergy Admin 2 17:17:57 [facility] CPT-74271 Allergy Admin 2 16:23:22 [facility] CPT-54429 Allergy Admin 2 16:26:55 [facility] CPT-63897 Allergy Admin 2 16:32:33 [facility] CPT-13171 Allergy Admin 2 17:43:40 [facility] CPT-63249 Allergy Admin 2 16:26:07 [facility] CPT-40574 Allergy Admin 2 12:31:50 [facility] CPT-34760 Allergy Admin 2 16:40:38 [facility] CPT-31470 Allergy Admin 2 17:07:36 CDT CPT-G0008 Administration of Influenza Virus Vaccine 17:01:01 CDT CPT-47323 First Vx - Ix admin via ID I M or jet injects without counseling by physician 17:01:01 CDT CPT-93653 Allergy Admin 2 12:06:54 CDT CPT-42603 Allergy Admin 2 17:04:46 CDT CPT-36205 Allergy Admin 2 16:34:48 CDT CPT-27641 Allergy Admin 2 17:04:51 CDT CPT-18537 Allergy Admin 2 16:25:14 CDT CPT-87208 Allergy Admin 2 10:52:02 CDT CPT-08813 Allergy Admin 2 11:45:31 CDT CPT-75356 Allergy Admin 2 12:02:20 CDT CPT-66938 Allergy Admin 2 15:47:29 CDT CPT-71073 Allergy Admin 2 13:25:44 CDT CPT-40439 Allergy Admin 2 10:51:13 CDT CPT-66829 CBC - LAB USE ONLY 10:44:39 CDT CPT-14965 CMP - LAB USE ONLY 10:44:39 CDT CPT-81391 Lipid - LAB USE ONLY 10:44:39 CDT 9 CPT-09649 Venipuncture Draw Fee 10:44:38 CDT CPT-70528 Allergy Admin 2 12:25:22 CDT CPT-19226 Allergy Admin 2 12:41:34 CDT CPT-61782 Allergy Admin 2 15:29:46 CDT CPT-84825 Allergy Admin 2 14:46:53 CDT CPT-04493 Allergy Admin 2 14:16:16 CDT CPT-21245 Allergy Admin 2 16:55:26 CDT CPT-82781 Allergy Admin 2 10:12:02 CDT CPT-85665 Allergy Admin 2 14:53:56 CDT CPT-18679 Allergy Admin 2 17:01:54 T CPT-48387 Allergy Admin 2 09:36:02 CDT CPT-74515 Allergy Admin 2 16:53:26 [facility] CPT-91847 Allergy Admin 2 16:59:41 [facility] CPT-34685 Allergy Admin 2 16:36:44 [facility] CPT-12967 Allergy Admin 2 16:17:16 [facility] CPT-76869 Allergy Admin 2 17:08:10 [facility] CPT-68400 Allergy Admin 2 12:16:08 [facility] CPT-15254 Allergy Admin 2 16:47:30 [facility] CPT-12764 Allergy Admin 2 16:59:44 [facility] CPT-63389 Allergy Admin 2 12:48:53 [facility] CPT-44883 Allergy Admin 2 10:19:48 [facility] CPT-24345 Allergy Admin 2 12:40:17 [facility] CPT-46514 Abx/Therapy Injection 17:21:59 [facility] CPT-16700 First Vx - Ix admin via ID I M or jet injects without counseling by physician 17:21:57 [facility] CPT-49608 Allergy Admin 2 17:20:12 [facility] CPT-55274 Allergy Admin 2 11:12:50 [facility] CPT-59541 Allergy Admin 2 17:02:39 CDT CPT-52337 BMP - LAB USE ONLY 10:33:02 CDT CPT-78608 CBC - LAB USE ONLY 10:33:02 CDT CPT-01228 Venipuncture Draw Fee 10:33:02 CDT CPT-13970 Abx/Therapy Injection 12:29:08 CDT CPT-14958 Allergy Admin 2 10:39:48 CDT CPT-82462 Allergy Admin 2 10:55:47 CDT CPT-PV Prev. Care Visit 10:10:00 CDT CPT-06258 Allergy Admin 2 11:31:20 CDT CPT-41403 Allergy Admin 2 16:53:45 CDT CPT-14719 Allergy Admin 2 16:36:42 CDT CPT-14397 Allergy Admin 2 16:30:19 CDT CPT-05894 Allergy Admin 2 15:39:35 CDT CPT-24425 Allergy Admin 2 17:51:32 CDT CPT-19842 Allergy Admin 2 11:50:50 CDT CPT-PV Prev. Care Visit 14:09:05 CDT CPT-83861 Allergy Admin 2 13:37:39 CDT CPT-92858 Abx/Therapy Injection 12:17:43 CDT CPT-80341 Venipuncture Draw Fee 10:39:55 CDT CPT-71486 Allergy Admin 2 12:04:53 CDT CPT-32100 Allergy Admin 2 10:04:39 CDT CPT-02937 Allergy Admin 2 12:15:35 CDT CPT-68384 Allergy Admin 2 17:04:36 CDT CPT-33726 Allergy Admin 2 16:25:49 CDT CPT-75721 Allergy Admin 2 17:30:06 CDT CPT-84024 Allergy Admin 2 10:11:48 CDT CPT-68335 Allergy Admin 2 17:06:13 CDT CPT-25814 Abx/Therapy Injection 12:23:07 CDT CPT-J0702 Celestone 12 mg (Betamethasone) 12:23:07 CD T CPT-42191 Venipuncture Draw Fee 10:26:42 CDT CPT-92428 Allergy Admin 2 12:10:01 CDT CPT-94963 Allergy Admin 2 15:13:57 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 CPT-49133 Allergy Admin 2 16:55:22 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 CPT-09073 Allergy Admin 2 10:13:46 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 CPT-51917 Venipuncture Draw Fee 10:06:08 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 CPT-59647 Allergy Admin 2 16:15:41 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 CPT-88294 Allergy Admin 2 16:40:21 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 CPT-23067 Allergy Admin 2 16:31:48 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 CPT-06333 Allergy Admin 2 16:38:26 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 CPT-35940 Allergy Admin 2 16:40:08 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 CPT-67943 Allergy Admin 2 08:34:27 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 CPT-32834 Allergy Admin 2 14:27:45 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 CPT-57298 Destruction bgn lsn up to 14 09:41:27 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 2 CPT-25829 Allergy Admin 2 17:45:17 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 CPT-56349 Allergy Admin 2 14:59:03 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 CPT-13369 Allergy Admin 2 12:49:42 CDT CPT-71915 Administration single or combination vac cine inc oral 15:01:57 CDT CPT-60257 Fluzone Quadrivalent Intramuscular Suspe nsion 0.5 ML 15:01:57 CDT CPT-76209 Allergy Admin 2 15:07:08 CDT CPT-34512 Allergy Admin 2 15:39:01 CDT CPT-18697 Allergy Admin 2 17:40:11 CDT CPT-02979 Allergy Admin 2 16:07:08 CDT CPT-55581 Allergy Admin 2 16:08:07 CDT CPT-62249 Venipuncture Draw Fee 09:34:29 CDT CPT-37101 Allergy Admin 2 16:27:43 CDT CPT-65173 Allergy Admin 2 15:53:10 CDT CPT-39520 Allergy Admin 2 15:42:29 CDT CPT-45452 Allergy Admin 2 11:26:14 CDT CPT-14395 Allergy Admin 2 10:36:24 CDT CPT-04947 Allergy Admin 2 16:53:37 CDT CPT-14978 Allergy Admin 2 11:21:44 CDT CPT-42002 Allergy Admin 2 10:50:40 CDT CPT-48263 Allergy Admin 2 11:19:11 CDT CPT-11918 Venipuncture Draw Fee 11:12:25 CDT CPT-06736 Allergy Admin 2 11:14:51 CDT CPT-43136 Allergy Admin 2 16:53:11 CDT CPT-42739 Allergy Admin 2 11:45:56 CDT CPT-75945 Allergy Admin 2 12:51:39 CDT CPT-70720 Allergy Admin 2 12:08:56 CDT CPT-56296 Allergy Admin 2 15:29:45 CDT CPT-00592 Allergy Admin 2 16:34:01 CDT CPT-25381 Allergy Admin 2 16:36:46 CDT CPT-05655 Allergy Admin 2 15:19:16 CDT CPT-65861 Allergy Admin 2 16:13:25 CDT CPT-87390 Allergy Admin 2 17:06:17 CDT CPT-13474 Allergy Admin 2 10:42:10 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 CPT-81417 Allergy Admin 2 17:33:16 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 CPT-04989 Allergy Admin 2 10:53:30 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 CPT-20470 Allergy Admin 2 14:18:24 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 CPT-40261 Allergy Admin 2 10:18:29 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 CPT-86632 Allergy Admin 2 12:57:40 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 CPT-59017 Allergy Admin 2 16:53:33 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 CPT-70952 Allergy Admin 2 12:43:00 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 CPT-09591 Allergy Admin 2 13:14:09 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 CPT-03150 Pneumovax 23 Injection Injectable 25 MCG /0.5ML 09:51:29 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 CPT-G0009 Administration of Pneumococcal Vaccine 09:51:29 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 CPT-73548 Influenza split virus > age 3 09:51:29 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 CPT-G0008 Administration of Influenza Virus Vaccine 02/23 09:51:29 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 CPT-99293 Venipuncture Draw Fee 10:31:06 CDT CPT-J0702 Celestone 12 mg (Betamethasone) 11:34:17 CD T CPT-53863 Abx/Therapy Injection 11:34:17 CDT CPT-55469 Chest 2V Frontal and Lat 11:31:47 CDT 07/04 CPT-00721 Venipuncture Draw Fee 11:31:47 CDT CPT-18775 Allergy Admin 2 14:31:05 CDT CPT-83987 EKG Trac and Interp 08:42:32 CDT CPT-70631 Chest 2V Frontal and Lat 08:42:32 CDT 05/28 CPT-32933 Venipuncture Draw Fee 08:39:02 CDT CPT-03062 Allergy Admin 2 16:59:09 CDT CPT-08004 Allergy Admin 2 17:06:11 CDT CPT-93442 Allergy Admin 2 16:04:36 CDT CPT-02104 Venipuncture Draw Fee 16:32:44 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 CPT-77087 Venipuncture Draw Fee 10:54:37 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 CPT-76231 Allergy Admin 2 14:53:55 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 CPT-79902 Allergy Admin 2 10:23:58 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 CPT-79612 First Vx Component - Ix admi n via ID IM or jet inj without physician counseling 15:34:26 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 CPT-38302 Fluzone (>=3 yrs.) 15:34:26 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 CPT-74120 Allergy Admin 2 15:56:02 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 CPT-00790 Allergy Admin 2 11:08:58 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 CPT-95025 Allergy Admin 2 10:51:36 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 CPT-85935 Allergy Admin 2 15:38:19 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 CPT-52769 Allergy Admin 2 15:12:46 CDT CPT-09827 Allergy Admin 2 10:28:50 CDT CPT-77055 Allergy Admin 2 16:35:33 CDT CPT-70794 Allergy Admin 2 10:14:18 CDT CPT-32040 Abx/Therapy Injection 09:06:45 CDT CPT-J0702 Celestone 6 mg (Betamethasone) 09:06:45 CDT CPT-16172 Allergy Admin 2 15:51:15 CDT CPT-82246 Allergy Admin 2 10:40:16 CDT CPT-91466 Allergy Admin 2 16:35:55 CDT CPT-50165 Allergy Admin 2 13:12:52 CDT CPT-60639 Allergy Admin 2 16:06:50 CDT CPT-80710 Allergy Admin 2 11:04:24 CDT CPT-57957 Allergy Admin 2 10:44:50 CDT CPT-51740 Allergy Admin 2 15:13:40 CDT CPT-70034 Allergy Admin 2 15:00:03 CDT CPT-30044 Allergy Admin 2 10:37:38 CDT CPT-85263 Venipuncture Draw Fee 09:16:43 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 CPT-02603 Allergy Admin 2 11:15:59 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 CPT-42905 Postop F/U Visit 10:10:52 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 CPT-13667 Allergy Admin 2 13:05:05 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 CPT-30149 Postop F/U Visit 19:45:16 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 CPT-91668 Allergy Admin 2 11:52:35 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 CPT-32198 Allergy Admin 2 10:49:22 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 CPT-OV Office Visit 13:55:55 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 CPT-45491 Allergy Admin 2 12:54:28 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 CPT-OV Office Visit 14:04:48 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 CPT-39455 Venipuncture Draw Fee 10:29:14 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 CPT-74288 Allergy Admin 2 11:24:43 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 CPT-67821 Knee 3V 11:00:12 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 CPT-15234 C-Spine Min 4V 11:00:12 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 CPT-02920 Allergy Admin 2 13:38:40 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 CPT-85744 Venipuncture Draw Fee 11:33:37 CDT CPT-39036 Allergy Admin 2 15:34:37 CDT CPT-40127 Allergy Admin 2 14:11:42 CDT CPT-30968 Administration single or combination vac cine inc oral 12:51:42 CDT CPT-06012 Influenza split virus > age 3 12:51:42 CDT CPT-27979 Allergy Admin 2 11:58:43 CDT CPT-94828 Allergy Admin 2 11:29:32 CDT CPT-98344 Allergy Admin 2 10:55:19 CDT CPT-43327 Allergy Admin 2 12:38:54 CDT CPT-36408 Allergy Admin 2 13:01:47 CDT CPT-32347 Abx/Therapy Injection 12:41:18 CDT CPT-J0702 Celestone 12 mg (Betamethasone) 12:41:18 CD T CPT-30457 Abx/Therapy Injection 16:33:09 CDT CPT-J0702 Celestone 12 mg (Betamethasone) 16:33:09 CD T CPT-54103 Allergy Admin 2 15:49:09 CDT CPT-64762 Allergy Admin 2 12:08:56 CDT CPT-61156 Allergy Admin 2 12:19:10 CDT CPT-13596 Allergy Admin 2 12:46:56 CDT CPT-35357 Allergy Admin 2 15:05:13 CDT CPT-21234 Allergy Admin 2 15:36:20 CDT CPT-17148 Allergy Admin 2 09:58:47 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 CPT-65595 Allergy Admin 2 12:18:06 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 CPT-33654 Allergy Admin 2 10:01:48 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 CPT-08807 Allergy Admin 2 12:17:53 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 CPT-74960 Allergy Admin 2 10:06:44 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 CPT-55124 Allergy Admin 2 10:13:04 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 CPT-09396 Venipuncture Draw Fee 10:09:07 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 CPT-32356 Bone Density 12:24:51 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 CPT-40728 Allergy Admin 2 11:29:41 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 CPT-76698 Allergy Admin 2 16:07:15 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 CPT-22622 Breathing Treatment 06:34:33 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 CPT-J0702 Celestone 12 mg (Betamethasone) 06:34:33 CS T CPT-85905 Abx/Therapy Injection 06:34:33 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 CPT-35271 Breathing Tx 11:07:33 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 CPT-82993 Allergy Admin 2 10:02:33 CDT CPT-92796 Allergy Admin 2 10:02:33 CDT CPT-46437 Allergy Admin 2 15:26:19 CDT CPT-94636 Administration single or combination vac cine inc oral 15:41:12 CDT CPT-40966 Influenza split virus > age 3 15:41:12 CDT
--- OUTSIDE RECORDS SUMMARY | 2020-09-15 14:38 | XMS REPORT | Clinical Summary ---
Author Author Admin, Supriya Zuniga Organization [facility] Address Unknown Phone Unavailable Allergies, Adverse [...] Yang APRN Pruritus vulvae Active Ashley Yokum TRAINING AND DEVELOPMENT REP Screening mammogram V76.12 Resolved Ashley Yokum A PRN Other screening mammogram Sinusitis, acute maxillary 461.0 Inactive 7 Ashley Yokum TRAINING AND DEVELOPMENT REP Acute maxillary sinusitis Diarrhea, acute 787.91 Resolved Ashley Yokum TRAINING AND DEVELOPMENT REP Diarrhea Vaginal candidiasis 112.1 Resolved Ashley Yokum A PRN Candidiasis of vulva and vagina Accidental fall E888.9 Resolved Ashley Yokum TRAINING AND DEVELOPMENT REP Unspecified fall Contusion of left hand, initial encounter 923.20 Resol burak Ashley Yokum TRAINING AND DEVELOPMENT REP Contusion of hand(s) Contusion of right upper arm, subsequent encounter V58.89 201 09/14/21 Resolved Ashley Yokum TRAINING AND DEVELOPMENT REP Encounter for other specified a ftercare Ganglion cyst of left wrist 727.41 Active Derrick Younger MD Ganglion of joint Body Mass Index 31.0-31.9 Adult Resolved 2017 Ashley Yokum TRAINING AND DEVELOPMENT REP Body Mass Index 31.0-31.9, adult Plantar fasciitis 728.71 Active Ashley Yokum TRAINING AND DEVELOPMENT REP Plantar fascial fibromatosis Bronchitis, acute 466.0 Inactive Ashley Yokum APR N Acute bronchitis Body Mass Index 30.0-30.9 Adult Resolved 2017 Ashley Yokum TRAINING AND DEVELOPMENT REP Body Mass Index 30.0-30.9, adult Allergic conjunctivitis, bilateral 372.14 Resolved 2 Ashley Yokum TRAINING AND DEVELOPMENT REP Other chronic allergic conjunctivitis Skin tags; irritated/inflammed 701.9 Resolved 11/10 Ashley Yokum TRAINING AND DEVELOPMENT REP Unspecified hypertrophic and atrophic co nditions of skin Body Mass Index 31.0-31.9 Adult Refinement 2017 Ashley Yokum TRAINING AND DEVELOPMENT REP Body Mass Index 31.0-31.9, adult BMI 30-30.9 Refinement Ashley Yokum TRAINING AND DEVELOPMENT REP Body Mass Index 31.0-31.9, adult BMI 31-31.9 Refinement Ashley Yokum TRAINING AND DEVELOPMENT REP Body Mass Index 31.0-31.9, adult BMI 32-32.9 Refinement Lois Faith RN Body Mass Index 31.0-31.9, adult BMI 31-31.9 Active Viviana Rubio APRN-Julieta Body Mass Index 31.0-31.9, adult Major depression, recurrent, moderate 296.32 Active Ashley Yokum TRAINING AND DEVELOPMENT REP Major depressive disorder, recurrent epi sode, moderate degree Obesity Class I (BMI 30-34.9) Active Ashley Y okum TRAINING AND DEVELOPMENT REP Obesity, unspecified Nausea and vomiting 787.01 Resolved Ashley Yokum A PRN Nausea with vomiting Gastroenteritis acute 558.9 Resolved Ashley Yokum TRAINING AND DEVELOPMENT REP Other and unspecified noninfectious gastroenteritis and colitis GERD 530.81 Active Ashley Yokum TRAINING AND DEVELOPMENT REP E sophageal reflux Joint pain 719.40 Resolved Ashley Yokum TRAINING AND DEVELOPMENT REP Pain in joint, site unspecified Preventive health care, adult V70.0 Inactive / Ashley Yokum TRAINING AND DEVELOPMENT REP Routine general medical examination at a health care facility Blood in urine 599.70 Resolved Ashley Yokum TRAINING AND DEVELOPMENT REP Hematuria, unspecified Other abnormal findings in urine Resolved Ashley Yokum TRAINING AND DEVELOPMENT REP Urinary tract infection 599.0 Inactive Ashley Yok um TRAINING AND DEVELOPMENT REP Urinary tract infection, site not specified Chafing of skin 709.8 Resolved Ashley Yokum TRAINING AND DEVELOPMENT REP Other specified disorders of skin Preventive care V70.0 Active Supriya Huston A Routine general medical examination at a health care facility Gynecological examination, routine V72.3 Inactive 2 Ashley Yokum TRAINING AND DEVELOPMENT REP Special investigations and e xaminations - Gynecological examination Near syncope 780.2 Resolved Ashley Yokum TRAINING AND DEVELOPMENT REP Syncope and collapse Lightheadedness 780.4 Resolved Ashley Yokum TRAINING AND DEVELOPMENT REP Dizziness and giddiness Headache 784.0 Resolved Ashley Yokum TRAINING AND DEVELOPMENT REP Headache Sore throat 462 Resolved Ashley Yokum TRAINING AND DEVELOPMENT REP Acute pharyngitis Sinusitis - acute 461.9 Resolved Ashley Yokum APR N Acute sinusitis, unspecified Tired all the time 780.79 Resolved Ashley Yokum AP RN Other malaise and fatigue Fatigue 780.79 Inactive Ashley Yokum TRAINING AND DEVELOPMENT REP Other malaise and fatigue ABNORMAL WEIGHT GAIN ICD-783.1 Inactive Wayne YANG ALLERGIC RHINITIS ICD-477.9 Inactive Lois Angelo mendieta TRAINING AND DEVELOPMENT REP SINUSITIS ICD-473.9 Inactive Lois Deric TRAINING AND DEVELOPMENT REP 2012 WHEEZING ICD-786.07 Inactive Lois Deric TRAINING AND DEVELOPMENT REP 2012 UPPER RESPIRATORY INFECTION, ACUTE ICD-465.9 I nactive Lois Deric TRAINING AND DEVELOPMENT REP NEED FOR DESENSITIZATION TO ALLERGENS ICD-V07.1 8 Inactive Ashley Yokum TRAINING AND DEVELOPMENT REP OBESITY ICD-278.00 Inactive Wayne YANG CONTACT DERMATITIS DUE TO POISON ARANZA ICD-692.6 Inactive Lois Leos TRAINING AND DEVELOPMENT REP NEED PROPHYLACTIC VACCINATION&INOCULATION FLU ICD-V04.81 Inactive Wayne Harms PA GERD ICD-530.81 Inactive Lois Leos TRAINING AND DEVELOPMENT REP 03/22 LONG-TERM (CURRENT) USE OF OTHER MEDICATIONS ICD-V58.69 6 Inactive Wayne Harms PA NECK PAIN ICD-723.1 Inactive Wayne Harms PA 06/15 DEGENERATIVE DISC DISEASE, CERVICAL SPINE ICD-722.4 Inactive Wayne Harms PA SKIN TAG ICD-701.9 Inactive Wayne Harms PA G E R D ICD-530.81 Inactive Lois Leos TRAINING AND DEVELOPMENT REP CANDIDIASIS OF SKIN AND NAILS ICD-112.3 Inacti ve Wayne Harms PA AFTERCARE FOLLOW SURGERY MUSCULOSKEL SYSTEM NEC ICD-V58.78 Inactive Wayne Harms PA PHARYNGITIS ICD-462 Inactive Wayne Harms PA 05/03 OTHER SCREENING MAMMOGRAM ICD-V76.12 Inactive Wayne Harms PA DYSPAREUNIA, MILD ICD-625.0 Inactive Wayne Harm s PA CONTACT DERMATITIS DUE TO POISON ARANZA ICD-692.6 Inactive Wayne Harms PA Sinusitis, chronic ICD-473.9 Inactive Ashley Mir yoni TRAINING AND DEVELOPMENT REP Myalgia ICD-729.1 Inactive Wayne Harms PA Rheumatoid [...] PA Runny nose ICD-472.0 Inactive Ashley Yang TRAINING AND DEVELOPMENT REP Influenza like illness ICD-487.1 Inactive Wayne Moon PA Acute maxillary sinusitis ICD-461.0 Inactive Ashley Yokum TRAINING AND DEVELOPMENT REP Preventive health care ICD-V70.0 Inactive Jenny mo Yokum TRAINING AND DEVELOPMENT REP Well women exam ICD-V72.3 Inactive Ashley Yokum TRAINING AND DEVELOPMENT REP Screening mammogram ICD-V76.12 Inactive Ashley Yokum TRAINING AND DEVELOPMENT REP Sinusitis, acute maxillary ICD-461.0 Inactive Ashley Yokum TRAINING AND DEVELOPMENT REP Diarrhea, acute ICD-787.91 Inactive Ashley Merazu m TRAINING AND DEVELOPMENT REP Vaginal candidiasis ICD-112.1 Inactive Ashley coppolaum TRAINING AND DEVELOPMENT REP Accidental fall ICD-E888.9 Inactive Ashley Yoku m TRAINING AND DEVELOPMENT REP Contusion of left hand, initial encounter ICD-923.20 Inactive Ashley Yokum TRAINING AND DEVELOPMENT REP Contusion of right upper arm, subsequent encounter ICD-V58.89 Inactive Ashley Yokum TRAINING AND DEVELOPMENT REP Body Mass Index 31.0-31.9 Adult Inac tive Ashley Yokum TRAINING AND DEVELOPMENT REP Bronchitis, acute ICD-466.0 Inactive Ashley Yok um TRAINING AND DEVELOPMENT REP Body Mass Index 30.0-30.9 Adult Inac tive Ashley Yokum TRAINING AND DEVELOPMENT REP Allergic conjunctivitis, bilateral ICD-372.14 I nactive Ashley Yokum TRAINING AND DEVELOPMENT REP Skin tags; irritated/inflammed ICD-701.9 Inact rancho Ashley Yokum TRAINING AND DEVELOPMENT REP Nausea and vomiting ICD-787.01 Inactive Ashley Yokum TRAINING AND DEVELOPMENT REP Gastroenteritis acute ICD-558.9 Inactive Conchis hi Yokum TRAINING AND DEVELOPMENT REP Joint pain ICD-719.40 Inactive Ashley Yokum APR N Preventive health care, adult ICD-V70.0 Inacti ve Ashley Yokum TRAINING AND DEVELOPMENT REP Blood in urine ICD-599.70 Inactive Ashley Yokum TRAINING AND DEVELOPMENT REP Other abnormal findings in urine [place] ctive Ashley Yokum TRAINING AND DEVELOPMENT REP Urinary tract infection ICD-599.0 Inactive K athi Yokum TRAINING AND DEVELOPMENT REP Chafing of skin ICD-709.8 Inactive Ashley Yokum TRAINING AND DEVELOPMENT REP Gynecological examination, routine ICD-V72.3 I nactive Ashley Yokum TRAINING AND DEVELOPMENT REP Near syncope ICD-780.2 Inactive Ashley Yokum AP RN Lightheadedness ICD-780.4 Inactive Ashley Yokum TRAINING AND DEVELOPMENT REP Headache ICD-784.0 Inactive Ashley Yokum TRAINING AND DEVELOPMENT REP 2020 Sore throat ICD-462 Inactive Ashley Yokum TRAINING AND DEVELOPMENT REP 02/17/17 Sinusitis - acute ICD-461.9 Inactive Ashley Yok um TRAINING AND DEVELOPMENT REP Tired all the time ICD-780.79 Inactive Ashley coppolaum TRAINING AND DEVELOPMENT REP Fatigue ICD-780.79 Inactive Ashley Merazum TRAINING AND DEVELOPMENT REP 2020 Medication List Medication Instructions Start Date Stop Date Generic Name NDC Status Provider Patient Instruction PHENTERMINE HCL 37.5 MG TABS 1/2 TAB IN MORING, CAN IN CREASE TO 1 TAB IN MORING. TAKE 30 MIN BEFORE BREAKFAST OR 2 HRS AFTER BREAKFAST PHENTERMINE HCL 43023097000 Active Shanelle Rivera RN Active EQ LORATADINE 10 MG ORAL TABLET TAKE 1 TABLET BY MOUTH ONCE DAILY NEEDED FOR ALLERGIES LORATADINE 60857098854 Active Shanelle Rivera RN Active ALPRAZOLAM 0.25 MG TABS TAKE 1 TO 2 TABLETS BY MOUTH THREE TIMES DAILY NEEDED ALPRAZOLAM 45377384817 Active Shanelle Rivera RN Active MUCINEX D 60-600 MG ORAL TABLET EXTENDED RELEASE 12 HO UR 1 po BID PRN Congestion PSEUDOEPHEDRINE-GUAIFENESIN 95909106898 Active Ashleykaleigh Merazum ELAINA Active ZYRTEC ALLERGY 10 MG ORAL CAPSULE 1qd CETIR IZINE HCL 32973813448 No Longer Active Ashley Yoеленаum TRAINING AND DEVELOPMENT REP Active HAIR, SKIN, NAILS VITAMINS take 1 tab by mouth 2x a day HAIR, SKIN, NAILS VITAMINS Active Ashley Yokum TRAINING AND DEVELOPMENT REP Active CENTRUM SILVER FOR WOMEN OVER 50 1 tab by mouth by day. CENTRUM SILVER FOR WOMEN OVER 50 Active Ashley Yokum TRAINING AND DEVELOPMENT REP Active VITAMIN D3 1000 UNIT ORAL CAPSULE 1 po qd CH OLECALCIFEROL 14882546467 Active Ashley Yokum ELAINA Active PREDNISONE 20 MG ORAL TABLET Take 2 tablets by mouth d aily for 2 days then 1 tablet daily for 2 days. PREDNISONE 32308886601 No Longer Active Ashley Yoеленаum ELAINA Active MELOXICAM 15 MG ORAL TABLET TAKE 1 TABLET BY MOUTH IN THE MORNING 2 MELOXICAM 06824330068 Active Shanelle Rivera RN Active SIMVASTATIN 40 MG ORAL TABLET TAKE 1 TABLET BY MOUTH ONCE DA JAVON AT BEDTIME SIMVASTATIN 07929224783 Active RENATA MurilloA Active [id number] ORAL TABLET MULT IPLE MINERALS 41076578759 Active Lois Faith RN Active SERTRALINE HCL 100 MG ORAL TABLET Take 1 tablet by mouth once da javon SERTRALINE HCL 27626249255 Active RENATA MurilloA A ctive REGLAN 10 MG ORAL TABLET 1 po qid for bowels 3 METOCLOPRAMIDE HCL 42402423092 No Longer Active Ashley Clarkeyoni DELANEY A ctive ADK 7668-5792-376 UNIT-MCG ORAL CAPSULE 1 daily VITAMINS A D K 05981534284 Active Ashley Yokum ELAINA Active B-12 2500 MCG ORAL TABLET 1 daily CYANOCOBAL HUNT 77283012951 No Longer Active Ashley Ktum ELAINA Active ESTRADIOL 2 MG TABS Take 1 tablet by mouth once daily ESTRADIOL 83811627357 Active Shanelle Rivera RN Active MACROBID 100 MG ORAL CAPSULE 1 cap by mouth twice daily NITROFURANTOIN MONOHYD MACRO 25247325222 No Longer Active Ashley Ktum TRAINING AND DEVELOPMENT REP Active FISH OIL + D3 0746-0193 MG-UNIT ORAL CAPSULE 1 dailly 4 FISH OIL-CHOLECALCIFEROL 52270955816 Active Ashley Clarkekum TRAINING AND DEVELOPMENT REP Acti ve PROAIR HFA 108 (90 BASE) MCG/ACT INHALATION AEROSOL SO LUTION 2 puffs four times a day as needed ALBUTEROL SULFATE 26403476668 No Long er Active Ashley Yokum TRAINING AND DEVELOPMENT REP Active ZITHROMAX Z-SANJANA 250 MG ORAL TABLET Take 2 tablets toda y and 1 each day till gone AZITHROMYCIN 01823680541 No Longer Active Ashley Yokum TRAINING AND DEVELOPMENT REP Active POLYTRIM 35958-4.1 UNIT/ML-% OPHTHALMIC SOLUTION 1 gtt to affected eye q3h x 7 days POLYMYXIN B-TRIMETHOPRIM 84106330663 No Longer Active Ashley Yokum TRAINING AND DEVELOPMENT REP Active IBUPROFEN 200 MG ORAL TABLET Take 3 tablets every 6hrs 201 09/17/15 IBUPROFEN 25774286529 No Longer Active Ashley Yokum TRAINING AND DEVELOPMENT REP Active DIFLUCAN 150 MG ORAL TABLET Take one tablet today and repeat in 72 hours FLUCONAZOLE 30528444987 No Longer Active Derrick cardenas MD Active DIFLUCAN 150 MG ORAL TABLET 1 by mouth for yeast 03/03 FLUCONAZOLE 63253366096 No Longer Active Ashley Yokum TRAINING AND DEVELOPMENT REP Active AUGMENTIN 875-125 MG ORAL TABLET Take one tablet twice a day with food AMOXICILLIN-POT CLAVULANATE 56715393864 No Longer Act rancho Ashley Yokum TRAINING AND DEVELOPMENT REP Active CALCIUM 600 + D 600-200 MG-UNIT ORAL TABLET Take one daily CALCIUM CARB-CHOLECALCIFEROL 47720109870 No Longer Active Ashley Yokum TRAINING AND DEVELOPMENT REP Active FLONASE 50 MCG/ACT NASAL SUSPENSION 1 spray each nostr il twice daily for allergies and runny nose FLUTICASONE PROPIONATE 20186601039 No Longer Active Ashley Yokum TRAINING AND DEVELOPMENT REP Active CLARITIN-D 12 HOUR 5-120 MG ORAL TABLET EXTENDED RELEA SE 12 HOUR Take one tablet BID as needed for allergies LORATADINE-PSEUDOEP HEDRINE 22770000200 No Longer Active Beth Naff PRODUCT BUILDER Active AMOXICILLIN-POT CLAVULANATE 875-125 MG ORAL TABLET 1 pill by mouth twice daily AMOXICILLIN-POT CLAVULANATE 24272318781 No Longer Act rancho Ashley Yokum TRAINING AND DEVELOPMENT REP Active AMOXICILLIN 500 MG ORAL CAPSULE Take 1 capsule by mout h three times a day X 10 days AMOXICILLIN 20923112083 No Longer Active Wayne YANG Active PROBIOTIC DAILY ORAL CAPSULE Take one daily PROBIO TIC PRODUCT 00866411181 Active Wayne Red PA Active TYLENOL 325 MG ORAL TABLET Take 2 every 6hrs prn A CETAMINOPHEN 32156761555 Active Wayne Red PA Active ACETAMINOPHEN 500 MG ORAL TABLET prn RICH TAMINOPHEN 70284989274 No Longer Active Wayne Harms PA Active CLARITIN-D 12 HOUR 5-120 MG ORAL TABLET EXTENDED RELEA SE 12 HOUR Take one tablet bid LORATADINE-PSEUDOEPHEDRINE 64513655862 No Longe r Active Wayne Harms PA Active MOBIC 15 MG ORAL TABLET 1 tablet by mouth daily in am with PPI 2 MELOXICAM 23941936526 No Longer Active Wayne Harms PA Acti ve HYDROCORTISONE 2.5 % EXTERNAL CREAM Apply three times a day to affected area HYDROCORTISONE 52301567888 No Longer Active Wayne Harms PA Active VITAMIN D3 1000 UNIT ORAL TABLET Take two daily CHOLECALCIFEROL 96186499544 No Longer Active Wayne Harms PA Active PROBIOTIC ORAL CAPSULE Take one daily PROBIOTIC PRODUCT 63125328600 No Longer Active Wayne Harms PA Active GREEN TEA SLIM ORAL TABLET Take one daily [facility] NATURAL PRODUCTS 44290244704 No Longer Active Wayne Harms PA Active BENZONATATE 200 MG ORAL CAPSULE Take one capsule three times a d ay BENZONATATE 95300304705 No Longer Active Wayne Harms PA Act rancho ZITHROMAX Z-SANJANA 250 MG ORAL TABLET 2 today, then 1 daily for 4 d ays AZITHROMYCIN 84722503356 No Longer Active Wayne Harms PA Ac tive ZITHROMAX 250 MG ORAL TABLET 2 po today, then 1 po q days 2-5 20 31/03/18 AZITHROMYCIN 09906845966 No Longer Active Beth Turner PRODUCT BUILDER Active OMEPRAZOLE 20 MG ORAL CAPSULE DELAYED RELEASE 1 tablet by mo [facility] daily OMEPRAZOLE 85565774852 Active Supriya Huston RMA Active ZITHROMAX Z-SANJANA 250 MG ORAL TABLET 2x1day,3o5bupj 2014 AZITHROMYCIN 60661339939 No Longer Active Wayne Harms PA Active FISH OIL 1200 MG ORAL CAPSULE One daily prn OME GA-3 FATTY ACIDS 28913961480 No Longer Active Wayne Harms PA Active CEPHALEXIN 250 MG ORAL CAPSULE Take one tablet qid 201 05/25/29 CEPHALEXIN 59933868958 No Longer Active Wayne Harms PA Active VITAMIN D3 1000 UNIT ORAL TABLET 1qd CHOLEC ALCIFEROL 97086939105 No Longer Active Wayne Harms PA Active B-12 2000 MCG ORAL TABLET 1qd CYANOCOBALAMI N 94910080240 No Longer Active Wayne Harms PA Active ACIPHEX 20 MG ORAL TABLET DELAYED RELEASE 1qd 10/28 RABEPRAZOLE SODIUM 50808618476 No Longer Active Wayne Harms PA Active HYDROCORTISONE 2.5 % EXTERNAL CREAM apply 3-4 times a day to affected area HYDROCORTISONE 74504969271 No Longer Active Wayne Harms PA Active MUCINEX 600 MG ORAL TABLET EXTENDED RELEASE 12 HOUR 2qd GUAIFENESIN 71910760873 No Longer Active Wayne Harms PA Active TUSSIONEX PENNKINETIC ER 10-8 MG/5ML ORAL SUSPENSION E XTENDED RELEASE 5ml po q12hr PRN Cough HYDROCOD POLST-CHLORPHEN POLST 5 1928099025 No Longer Active Wayne Harms PA Active ZITHROMAX 250 MG ORAL TABLET 2 po today, then 1 po q days 2-5 20 26/06/21 AZITHROMYCIN 05243052174 No Longer Active Wayne Harms PA Ac tive CLARITIN 10 MG ORAL TABLET one tablet daily THEO ATADINE 72218179418 No Longer Active Wayne Harms PA Active FLAGYL 500 MG ORAL TABLET 1 tablet by mouth three times daily 20 28/05/03 METRONIDAZOLE 18609179441 No Longer Active Wayne Harms PA A ctive CHERATUSSIN AC 100-10 MG/5ML ORAL SYRUP one teaspoon qid. 9 GUAIFENESIN-CODEINE 28676606608 No Longer Active Wayne Harms PA Act rancho VITAMIN D 1000 UNIT ORAL TABLET 1qd CHOLECA LCIFEROL 38750224915 No Longer Active Wayne Harms PA Active CYMBALTA 60 MG ORAL CAPSULE DELAYED RELEASE PARTICLES 1 cap by mouth daily DULOXETINE HCL 67630545461 No Longer Active Wayne Harms PA Active AMOXICILLIN 500 MG ORAL CAPSULE 2 caps tid for 10days AMOXICILLIN 45808150040 No Longer Active Wayne Harms PA Active CALCIUM + D 600-200 MG-UNIT TABS Take one by mouth daily CALCIUM CARBONATE-VITAMIN D 24733355533 No Longer Active Wayne Harms PA Active CENTRUM SILVER ADULT 50+ ORAL TABLET 1qd 2013 MULTIPLE VITAMINS-MINERALS 52060775175 No Longer Active Wayne Harms PA Active VENLAFAXINE HCL 75 MG ORAL TABLET 1tid VE NLAFAXINE HCL 26293911330 No Longer Active Wayne Harms PA Active CLARITIN 10 MG ORAL TABLET 1 tablet by mouth daily as needed for allergies LORATADINE 28887739006 No Longer Active Wayne Harms PA Acti ve HYDROCORTISONE 2.5 % EXTERNAL CREAM Apply four times a day to af fected area HYDROCORTISONE 09219082750 No Longer Active Wayne Harms PA Active ZITHROMAX 250 MG ORAL TABLET 2 po today, then 1 po q days 2-5 20 26/02/30 AZITHROMYCIN 80933456686 No Longer Active Wayne Harms PA Ac tive ZITHROMAX 250 MG ORAL TABLET 2 po today, then 1 po q days 2-5 20 27/02/16 AZITHROMYCIN 77202666501 No Longer Active Wayne Harms PA Ac tive CYMBALTA 30 MG ORAL CAPSULE DELAYED RELEASE PARTICLES 3 caps daily DULOXETINE HCL 53899211347 No Longer Active Wayne Harms PA Active CYMBALTA 60 MG ORAL CAPSULE DELAYED RELEASE PARTICLES one tablet daily, takes 30mg. with 60mg. to make 90 mg. DULOXETINE HCL 50038243950 No Longer Active Wayne Harms PA Active CYMBALTA 30 MG ORAL CAPSULE DELAYED RELEASE PARTICLES 1 daily wi th 60mg DULOXETINE HCL 99666219571 No Longer Active Wayne Harms PA Active ZITHROMAX 250 MG ORAL TABLET 2 po today, then 1 po q days 2-5 20 26/12/21 AZITHROMYCIN 84357496848 No Longer Active Ismael YANG Active PREDNISONE 20 MG ORAL TABLET 3tab x 2days,2tab x 2days ,1tab x 2days,1/2tab x 2days PREDNISONE 54192381310 No Longer Active Wayne Vera jarvis PA Active PREMARIN 0.625 MG ORAL TABLET Take one by mouth daily ESTROGENS CONJUGATED 42439225387 No Longer Active Wayne Harms PA Active ZITHROMAX 250 MG ORAL TABLET 2 po today, then 1 po q days 2-5 20 26/06/19 AZITHROMYCIN 60137862765 No Longer Active Nereyda Lucke Activ e OMEGA-3 1000 MG ORAL CAPSULE 2qd OMEGA-3 FA TTY ACIDS 98550017050 No Longer Active Wayne Harms PA Active BENADRYL ITCH STOPPING 1-0.1 % EXTERNAL CREAM prn DIPHENHYDRAMINE- ZINC ACETATE 12814273435 No Longer Active Wayne Harms PA Active LOTRISONE 1-0.05 % EXTERNAL CREAM Apply bid CLOTRIMAZOLE-BETAMETHASONE 02988878012 No Longer Active Wayne Harms PA Active ZITHROMAX Z-SANJANA 250 MG ORAL TABLET take as directed 26/04/19 AZITHROMYCIN 65115040272 No Longer Active Wayne Harms PA Active NYSTATIN 117806 UNIT/GM EXTERNAL POWDER Apply to affected areas BID NYSTATIN 07625412345 No Longer Active Wayne Harms PA Acti ve BENADRYL 25 MG ORAL CAPSULE prn DIPHENHYDRAMINE HCL 50289477184 Active Wayne Harms PA Active LOTRISONE 1-0.05 % EXTERNAL CREAM apply twice a day 20 25/02/17 CLOTRIMAZOLE-BETAMETHASONE 00965486597 No Longer Active Wayne Harms PA Active HYDROCODONE-ACETAMINOPHEN 5-325 MG ORAL TABLET 1-2 every 4hr s prn pain HYDROCODONE-ACETAMINOPHEN 87733595827 No Longer Activ e Wayne Harms PA Active VICODIN 5-300 MG ORAL TABLET 1-2 tabs every 6hrs as needed for p ain HYDROCODONE-ACETAMINOPHEN 60414489163 No Longer Active Wayne Harms PA Active BENADRYL 25 MG ORAL CAPSULE 1prn DIPHENHYDRA MINE HCL 29786583259 No Longer Active Jillina Frazell TRAINING AND DEVELOPMENT REP Active ROBITUSSIN DM 100-10 MG/5ML ORAL SYRUP 2 teaspoons four times a day DEXTROMETHORPHAN-GUAIFENESIN 63474618503 No Longer Active Jillina Frazell TRAINING AND DEVELOPMENT REP Active ACIPHEX 20 MG ORAL TABLET DELAYED RELEASE Take one by mouth daily RABEPRAZOLE SODIUM 06755783792 No Longer Active Jillina Frazell TRAINING AND DEVELOPMENT REP Active TUMS 500 MG ORAL TABLET CHEWABLE prn SADIQ CIUM CARBONATE ANTACID 27196023380 No Longer Active Jillina Frazell TRAINING AND DEVELOPMENT REP Active PEPTO-BISMOL 524 MG/30ML ORAL SUSPENSION prn 02/26 BISMUTH SUBSALICYLATE 47020007107 No Longer Active Jillina Frazell TRAINING AND DEVELOPMENT REP Active BACTRIM DS 800-160 MG ORAL TABLET 1bid SULFAMETHOXAZOLE-TRIMETHOPRIM 18700497894 No Longer Active Beth Naff PRODUCT BUILDER Active GAVISCON EXTRA RELIEF FORMULA CHEW prn A LUM HYDROXIDE-MAG CARBONATE CHEW 44665727483 Active Wayne Harms PA Active DIFLUCAN 150 MG ORAL TABLET 1stat FLUCONAZOL E 51273254736 No Longer Active Wayne Harms PA Active AUGMENTIN 875-125 MG ORAL TABLET 1 tab by mouth twice daily with food AMOXICILLIN-POT CLAVULANATE 42318815643 No Longer Act rancho Wayne Harms PA Active FLUTICASONE PROPIONATE 50 MCG/ACT NASAL SUSPENSION 1 t o 2 sprays each nostril twice a day FLUTICASONE PROPIONATE 40540733479 No Lo nger Active Wayne Harms PA Active HYDROCORTISONE 2.5 % EXTERNAL CREAM apply 2-4 times a day, a s directed, prn HYDROCORTISONE 24155614004 No Longer Active Wayne Harms PA Active ZITHROMAX Z-SANJANA 250 MG ORAL TABLET A ZITHROMYCIN 88037664070 No Longer Active Wayne Harms PA Active SIMVASTATIN 40 MG ORAL TABLET one tablet daily SIMVASTATIN 32841455192 No Longer Active Misty Yoo PRODUCT BUILDER Active LOVASTATIN 40 MG ORAL TABLET Take one by mouth daily 12/11 LOVASTATIN 01117667127 No Longer Active Misty Yoo PRODUCT BUILDER Active PREDNISONE 20 MG ORAL TABLET 2 PO qd x 2d, 1 PO qd x 2d, 1/2 PO qd x 2d PREDNISONE 95640917703 No Longer Active Ismael silva PA Active ZITHROMAX 250 MG ORAL TABLET two tablets now and one daily x 4 d ays AZITHROMYCIN 13962013453 No Longer Active Misty Yoo PRODUCT BUILDER Active ZOLPIDEM TARTRATE 10MG TABS (ZOLPIDEM TARTRATE) 1 at bedtime as needed Active Supriya Betzaida RMA Active CLOBETASOL PROPIONATE 0.05 % EXTERNAL CREAM apply as directed CLOBETASOL PROPIONATE 50227028782 No Longer Active Wayne Harms PA A ctive CYMBALTA 30 MG ORAL CAPSULE DELAYED RELEASE PARTICLES takes 90mg qod alt with 60mg DULOXETINE HCL 76084067944 No Longer Active Wayne Harm s PA Active ZITHROMAX 250 MG ORAL TABLET 2 po today, then 1 po q days 2-5 20 12/24/14 AZITHROMYCIN 80091519017 No Longer Active Wayne Harms PA Ac tive TRIAMCINOLONE ACETONIDE 0.1 % EXTERNAL CREAM apply qid TRIAMCINOLONE ACETONIDE 24601774269 No Longer Active Wayne Harms PA Active ALPRAZOLAM 0.25 MG ORAL TABLET 1 tab three times a day 201 02/23/14 ALPRAZOLAM 01710364982 No Longer Active Wayne Harms PA Active ZOLPIDEM TARTRATE 5 MG ORAL TABLET 1 at bedtime as needed ZOLPIDEM TARTRATE 29567685669 No Longer Active Beth Turner PRODUCT BUILDER Active ALPRAZOLAM 0.25 MG ORAL TABLET 1 tab three times a day ALPRAZOLAM 0.25 MG ORAL TABLET 227217 ALPRAZOLAM Inactive TRIAMCINOLONE ACETONIDE 0.1 % EXTERNAL CREAM apply qid TRIAMCINOLONE ACETONIDE 0.1 % EXTERNAL CREAM 7839888 TRIAMCINOLONE A CETONIDE Inactive CYMBALTA 30 MG ORAL CAPSULE DELAYED RELEASE PARTICLES takes 90mg qod alt with 60mg CYMBALTA 30 MG ORAL CAPSULE DELAYED RELEA SE PARTICLES 445957 DULOXETINE HCL Inactive CLOBETASOL PROPIONATE 0.05 % EXTERNAL CREAM apply as directed CLOBETASOL PROPIONATE 0.05 % EXTERNAL CREAM 911606 CLOBETASOL PROPI KELVIN Inactive LOVASTATIN 40 MG ORAL TABLET Take one by mouth daily 2 LOVASTATIN 40 MG ORAL TABLET 150370 LOVASTATIN Inactive ZITHROMAX Z-SANJANA 250 MG ORAL TABLET 03/03 ZITHROMAX Z-SANJANA 250 MG ORAL TABLET 777917 AZITHROMYCIN Inactive HYDROCORTISONE 2.5 % EXTERNAL CREAM apply 2-4 times a day, a s directed, prn HYDROCORTISONE 2.5 % EXTERNAL CREAM 204750 HYDRO CORTISONE Inactive FLUTICASONE PROPIONATE 50 MCG/ACT NASAL SUSPENSION 1 t o 2 sprays each nostril twice a day FLUTICASONE PROPIONA TE 50 MCG/ACT NASAL SUSPENSION 5695378 FLUTICASONE PROPIONATE Inactive AUGMENTIN 875-125 MG ORAL TABLET 1 tab by mouth twice daily with food AUGMENTIN 875-125 MG ORAL TABLET AMOXICIL BLOSSOM-POT CLAVULANATE Inactive DIFLUCAN 150 MG ORAL TABLET 1stat DIFLUCAN 150 MG ORAL TABLET 701065 FLUCONAZOLE Inactive PEPTO-BISMOL 524 MG/30ML ORAL SUSPENSION prn PEPTO-BISMOL 524 MG/30ML ORAL SUSPENSION BISMUTH SUBSALICYLATE Inactive TUMS 500 MG ORAL TABLET CHEWABLE prn TUMS 500 MG ORAL TABLET CHEWABLE 395151 CALCIUM CARBONATE ANTACID Inactive ACIPHEX 20 MG ORAL TABLET DELAYED RELEASE Take one by mouth daily ACIPHEX 20 MG ORAL TABLET DELAYED RELEASE 977481 RABEPRAZOLE SODIUM Inactive ROBITUSSIN DM 100-10 MG/5ML [...] pain HYDROCODONE-ACETAMINOPHEN 5-325 MG ORAL TABLET 8 40711 HYDROCODONE-ACETAMINOPHEN Inactive LOTRISONE 1-0.05 % EXTERNAL CREAM apply twice a day 20 25/02/17 LOTRISONE 1- 0.05 % EXTERNAL CREAM CLOTRIMAZOLE-BETAMETHASONE Inactive NYSTATIN 662018 UNIT/GM EXTERNAL POWDER Apply to affected areas BID NYSTATIN 570851 UNIT/GM EXTERNAL POWDER 051314 NYSTATIN Inactive ZITHROMAX Z-SANJANA 250 MG ORAL TABLET take as directed 20 26/04/19 ZITHROMAX Z-SANJANA 250 MG ORAL TABLET 581250 AZITHROMYCIN [place] LOTRISONE 1-0.05 % EXTERNAL CREAM Apply bid LOTRISONE 1- 0.05 % EXTERNAL CREAM CLOTRIMAZOLE-BETAMETHASONE Inactive BENADRYL ITCH STOPPING 1-0.1 % EXTERNAL CREAM prn BENADRYL ITCH STOPPING 1-0.1 % EXTERNAL CREAM DIPHENHYDRAMINE-ZINC ACETATE Inactive OMEGA-3 1000 MG ORAL CAPSULE 2qd OMEGA-3 1000 MG ORAL CAPSULE 933214 OMEGA-3 FATTY ACIDS Inactive ZITHROMAX 250 MG ORAL TABLET 2 po today, then 1 po q days 2-5 20 26/06/19 ZITHROMAX 250 MG ORAL TABLET 851058 AZITHROMYCIN [place] PREMARIN 0.625 MG ORAL TABLET Take one by mouth daily PREMARIN 0.625 MG ORAL TABLET ESTROGENS CONJUGATED Inactive PREDNISONE 20 MG ORAL TABLET 3tab x 2days,2tab x 2days ,1tab x 2days,1/2tab x 2days PREDNISONE 20 MG ORAL TABLET 101046 PREDNIS ONE Inactive CYMBALTA 30 MG ORAL CAPSULE DELAYED RELEASE PARTICLES 1 daily wi th 60mg CYMBALTA 30 MG ORAL CAPSULE DELAYED RELEASE PARTICLES 094336 DULOXETINE HCL Inactive CYMBALTA 60 MG ORAL CAPSULE DELAYED RELEASE PARTICLES one tablet daily, takes 30mg. with 60mg. to make 90 mg. CYMBALTA 60 MG ORAL CAPSULE DELAYED RELEASE PARTICLES 977317 DULOXETINE HCL Inacti ve CYMBALTA 30 MG ORAL CAPSULE DELAYED RELEASE PARTICLES 3 caps daily CYMBALTA 30 MG ORAL CAPSULE DELAYED RELEASE PARTICLES 310184 DULOXE ROSANNE HCL Inactive HYDROCORTISONE 2.5 % EXTERNAL CREAM Apply four times a day to af fected area HYDROCORTISONE 2.5 % EXTERNAL CREAM 038718 HYDROCORTISO NE Inactive CLARITIN 10 MG ORAL TABLET 1 tablet by mouth daily as needed for allergies CLARITIN 10 MG ORAL TABLET 115873 LORATADINE Inact [place] VENLAFAXINE HCL 75 MG ORAL TABLET 1tid VENLAFAXINE HCL 75 MG ORAL TABLET 597590 VENLAFAXINE HCL Inactive CENTRUM SILVER ADULT 50+ ORAL TABLET 1qd 2013 CENTRUM SILVER ADULT 50+ ORAL TABLET MULTIPLE VITAMINS-MINERALS Inactive CALCIUM + D 600-200 MG-UNIT TABS Take one by mouth daily CALCIUM + D 600-200 MG-UNIT TABS CALCIUM CARBONATE-VITAMIN D Inactive AMOXICILLIN 500 MG ORAL CAPSULE 2 caps tid for 10days AMOXICILLIN 500 MG ORAL CAPSULE 609566 AMOXICILLIN Inactive CYMBALTA 60 MG ORAL CAPSULE DELAYED RELEASE PARTICLES 1 cap by mouth daily CYMBALTA 60 MG ORAL CAPSULE DELAYED RELE ASE PARTICLES 707842 DULOXETINE HCL Inactive VITAMIN D 1000 UNIT ORAL TABLET 1qd 4 VITAMIN D 1000 UNIT ORAL TABLET CHOLECALCIFEROL Inactive CHERATUSSIN AC 100-10 MG/5ML ORAL SYRUP one teaspoon qid. 9 CHERATUSSIN AC 100-10 MG/5ML ORAL SYRUP GUAIFENESIN-CODEINE Inactive FLAGYL 500 MG ORAL TABLET 1 tablet by mouth three times daily 20 28/05/03 FLAGYL 500 MG ORAL TABLET 380533 METRONIDAZOLE Inacti ve CLARITIN 10 MG ORAL TABLET one tablet daily CLARITIN 10 MG ORAL TABLET 992212 LORATADINE Inactive TUSSIONEX PENNKINETIC ER 10-8 MG/5ML [...] affected area HYDROCORTISONE 2.5 % EXTERNAL CREAM 646101 HYDRO CORTISONE Inactive ACIPHEX 20 MG ORAL TABLET DELAYED RELEASE 1qd ACIPHEX 20 MG ORAL TABLET DELAYED RELEASE 354852 RABEPRAZOLE SODIUM Inactive B-12 2000 MCG ORAL TABLET 1qd B-12 2000 MCG ORAL TABLET CYANOCOBALAMIN Inactive VITAMIN D3 1000 UNIT ORAL TABLET 1qd VITAMIN D3 1000 UNIT ORAL TABLET CHOLECALCIFEROL Inactive CEPHALEXIN 250 MG ORAL CAPSULE Take one tablet qid 201 05/25/29 CEPHALEXIN 250 MG ORAL CAPSULE 479890 CEPHALEXIN Inactive FISH OIL 1200 MG ORAL CAPSULE One daily prn FISH OIL 1200 MG ORAL CAPSULE OMEGA-3 FATTY ACIDS Inactive ZITHROMAX Z-SANJANA 250 MG ORAL TABLET 2x1day,3w8dxqy 2014 ZITHROMAX Z-SANJANA 250 MG ORAL TABLET 772099 AZITHROMYCIN [place] BENZONATATE 200 MG ORAL CAPSULE Take one capsule three times a d ay BENZONATATE 200 MG ORAL CAPSULE 320109 BENZONATATE Inactive GREEN TEA SLIM ORAL TABLET Take one daily GREEN TEA SLIM ORAL TABLET MISC NATURAL PRODUCTS Inactive PROBIOTIC ORAL CAPSULE Take one daily PROBIOTIC ORAL CAPSULE 5463925 PROBIOTIC PRODUCT Inactive VITAMIN D3 1000 UNIT ORAL TABLET Take two daily 05/05 VITAMIN D3 1000 UNIT ORAL TABLET CHOLECALCIFEROL Inactive HYDROCORTISONE 2.5 % EXTERNAL CREAM Apply three times a day to affected area HYDROCORTISONE 2.5 % EXTERNAL CREAM 032074 HYDRO CORTISONE Inactive MOBIC 15 MG ORAL TABLET 1 tablet by mouth daily in am with PPI 2 MOBIC 15 MG ORAL TABLET 840311 MELOXICAM Inactive CLARITIN-D 12 HOUR 5-120 MG ORAL TABLET EXTENDED RELEA SE 12 HOUR Take one tablet bid CLARITIN-D 12 HOUR 5 -120 MG ORAL TABLET EXTENDED RELEASE 12 HOUR LORATADINE-PSEUDOEPHEDRINE Inactive ACETAMINOPHEN 500 MG ORAL TABLET prn ACETAMINOPHEN 500 MG ORAL TABLET 047343 ACETAMINOPHEN Inactive CLARITIN-D 12 HOUR 5-120 MG [...] yeast 03/03 DIFLUCAN 150 MG ORAL TABLET 907683 FLUCONAZOLE Inactive DIFLUCAN 150 MG ORAL TABLET Take one tablet today and repeat in 72 hours DIFLUCAN 150 MG ORAL TABLET 401975 FLUCONAZOLE Inactive IBUPROFEN 200 MG ORAL TABLET Take 3 tablets every 6hrs IBUPROFEN 200 MG ORAL TABLET 667383 IBUPROFEN Inactive ZITHROMAX Z-SANJANA 250 MG ORAL TABLET Take 2 tablets toda y and 1 each day till gone ZITHROMAX Z-SANJANA 250 MG ORAL TABLET 855926 A ZITHROMYCIN Inactive PROAIR HFA 108 (90 [...] bowels 3 REGLAN 10 MG ORAL TABLET 873092 METOCLOPRAMIDE HCL Inactive PREDNISONE 20 MG ORAL TABLET Take 2 tablets by mouth d aily for 2 days then 1 tablet daily for 2 days. PREDNISONE 20 MG ORAL T ABLET 351316 PREDNISONE Inactive ZYRTEC ALLERGY 10 MG ORAL CAPSULE 1qd ZYRTEC ALLERGY 10 MG ORAL CAPSULE CETIRIZINE HCL Inactive ZITHROMAX 250 MG ORAL TABLET 2 po today, then 1 po q days 2-5 20 12/24/14 ZITHROMAX 250 MG ORAL TABLET 041345 AZITHROMYCIN [place] ctive ZITHROMAX 250 MG ORAL TABLET two tablets now and one daily x 4 d ays ZITHROMAX 250 MG ORAL TABLET 615705 AZITHROMYCIN [place] PREDNISONE 20 MG ORAL TABLET 2 PO qd x 2d, 1 PO qd x 2d, 1/2 PO qd x 2d PREDNISONE 20 MG ORAL TABLET 786028 PREDNISONE Inactive SIMVASTATIN 40 MG ORAL TABLET one tablet daily SIMVASTATIN 40 MG ORAL TABLET 835885 SIMVASTATIN Inactive BACTRIM DS 800-160 MG ORAL TABLET 1bid BACTRIM DS 800-160 MG ORAL TABLET 620239 SULFAMETHOXAZOLE-TRIMETHOPRIM Inactive ZITHROMAX 250 MG ORAL TABLET 2 po today, then 1 po q days 2-5 20 26/12/21 ZITHROMAX 250 MG ORAL TABLET 583911 AZITHROMYCIN [place] ctive ZITHROMAX 250 MG ORAL TABLET 2 po today, then 1 po q days 2-5 20 27/02/16 ZITHROMAX 250 MG ORAL TABLET 928291 AZITHROMYCIN [place] ctive ZITHROMAX 250 MG ORAL TABLET 2 po today, then 1 po q days 2-5 20 26/02/30 ZITHROMAX 250 MG ORAL TABLET 168855 AZITHROMYCIN [place] [facility] ZITHROMAX 250 MG ORAL TABLET 2 po today, then 1 po q days 2-5 20 26/06/21 ZITHROMAX 250 MG ORAL TABLET 079291 AZITHROMYCIN [place] ctive ZITHROMAX 250 MG ORAL TABLET 2 po today, then 1 po q days 2-5 20 31/03/18 ZITHROMAX 250 MG ORAL TABLET 134437 AZITHROMYCIN [place] ctive ZITHROMAX Z-SANJANA 250 MG ORAL TABLET 2 today, then 1 daily for 4 d ays ZITHROMAX Z-SANJANA 250 MG ORAL TABLET 824098 AZITHROMYCIN Inactive AMOXICILLIN 500 MG ORAL CAPSULE Take 1 capsule by mout h three times a day X 10 days AMOXICILLIN 500 MG ORAL CAPSULE 952580 AMOX ICILLIN Inactive AMOXICILLIN-POT CLAVULANATE 875-125 MG ORAL TABLET 1 pill by mouth twice daily AMOXICILLIN-POT CLAVULANATE 875-125 MG ORAL TABL ET 233422 AMOXICILLIN-POT CLAVULANATE Inactive AUGMENTIN 875-125 MG ORAL TABLET Take one tablet twice a day with food AUGMENTIN 875-125 MG ORAL TABLET AMOXICILLIN-POT CLAVULANATE Inactive POLYTRIM 63577-8.1 UNIT/ML-% OPHTHALMIC SOLUTION 1 gtt to affected eye q3h x 7 days POLYTRIM 81965-9.1 UNIT/ML-% OPH THALMIC SOLUTION 987015 POLYMYXIN B-TRIMETHOPRIM Inactive MACROBID 100 MG ORAL CAPSULE 1 cap by mouth twice daily MACROBID 100 MG ORAL CAPSULE 6626854 NITROFURANTOIN MONOHYD MACRO In active Advance Directives [...] Fluarix, Agriflu(>= 18 yo)) Fluzone (>=3 yrs.) [[id number]] Seasonal influenza vaccine, injectable, containing preservative, for > 3 years old (Afluria, FluLaval, Fluzone, Fluvirin, Fluarix, Agriflu(>= 18 yo)) Fluzone (>3 yrs.) [[id number]] Seasonal influenza vaccine, injectable, containing preservative, for > 3 years old (Afluria, FluLaval, Fluzone, Fluvirin, Fluarix, Agriflu(>= 18 yo)) Fluarix (>3 yrs.) [[id number]] Diagnostic Results Date Name Value Unit Range Description Lab Report: CBC, Comp. Metabolic Panel, Lipid Panel, Magnesium - Chemistry sodium, serum 138 mmol/L 261-046 1908/09/02 carbon dioxide, venous blood 28.0 mmol/L 21.0-32 [...] 0.20 mg/dL 0.00-1.00 cholesterol, serum 228 mg/dL 629-973 1037/09/02 triglyceride, serum, fasting 236 mg/dL 30-200 HDL [...] 0.36-3.74 Encounters Code Encounter Date Provider Facility CPT-49293 [id number] Vst-Est Level III 17:07:11 CDT Jenny Yang [facility] [place] CPT-68005 [id number] Vst-Est Level III 17:51:44 HEALTH PROGRAM ANALYST [place] [facility] CPT-06259 Level 3 Est. Patient 11:09:39 CDT Viviana Rubio [facility] CPT-81268 [id number] Vst-Est Level IV 09:14:31 CDT Conchis Yang [facility] [place] CPT-61480 [id number] Vst-Est Level III 22:05:50 CDT Jenny Yang [facility] [place] CPT-68418 Level 3 Est. Patient 15:00:02 HEALTH PROGRAM ANALYST Will jarquin [facility] CPT-55325 Level 2 Est. Patient 13:46:20 CDT Ashley peacock [facility] [place] CPT-89038 Level 2 Est. Patient 13:45:36 CDT Ashley Meraz [facility] [place] CPT-15162 Level 3 Est. Patient 15:52:07 CDT Ashley Meraz [facility] [place] CPT-53542 Level 3 Est. Patient 08:20:37 CDT Ashley Meraz [facility] [place] CPT-25630 Level 3 Est. Patient 15:06:41 CDT Derrick donaldson MD [facility] CPT-50671 Level 3 Est. Patient 11:13:21 HEALTH PROGRAM ANALYST Derrick donaldson MD [facility] CPT-26413 Level 3 Est. Patient 12:54:25 HEALTH PROGRAM ANALYST Ashley Meraz [facility] [place] CPT-61859 Level 3 Est. Patient 23:34:49 HEALTH PROGRAM ANALYST Ashley Meraz [facility] [place] CPT-77818 Level 3 Est. Patient 16:37:09 HEALTH PROGRAM ANALYST Ashley Meraz [facility] [place] CPT-21887 Level 3 Est. Patient 11:59:30 HEALTH PROGRAM ANALYST Ashley Meraz [facility] [place] CPT-46313 Level 4 Est. Patient 07:40:13 CDT Wayne delatorre [facility] [place] CPT-70440 Level 4 Est. Patient 08:06:18 CDT Wayne delatorre [facility] [place] [facility] CPT-53660 Level 3 Est. Patient 11:14:45 CDT Wayne delatorre [facility] [place] CPT-95227 Level 3 Est. Patient 10:14:55 CDT Wayne delatorre [facility] [place] CPT-25440 Level 4 Est. Patient 15:23:47 CDT Wayne delatorre [facility] CPT-14255 Level 3 Est. Patient 07:50:51 HEALTH PROGRAM ANALYST Wayne delatorre PA [facility] [place] CPT-21382 Level 3 Est. Patient 14:47:52 CDT [facility]-81302 Level 3 Est. Patient 11:28:46 CDT Wayne delatorre [facility] CPT-91238 Level 4 Est. Patient 14:48:43 CDT Wayne delatorre [facility] CPT-97774 Level 3 Est. Patient 14:10:18 HEALTH PROGRAM ANALYST Wayne delatorre PA [facility] [place] CPT-26157 Level 3 Est. Patient 16:44:33 HEALTH PROGRAM ANALYST Wayne delatorre [facility] CPT-37415 Level 4 Est. Patient 08:22:34 HEALTH PROGRAM ANALYST Wayne delatorre [facility] CPT-28496 Level 4 Est. Patient 07:10:30 CDT Wayne delatorre [facility] CPT-78192 Level 3 Est. Patient 14:50:20 HEALTH PROGRAM ANALYST Wayne delatorre [facility] CPT-29977 Level 3 Est. Patient 09:46:08 HEALTH PROGRAM ANALYST Zuleika cha APRN [facility] [place] CPT-54318 Level 4 Est. Patient 07:56:24 HEALTH PROGRAM ANALYST Wayne delatorre [facility] CPT-92438 Level 3 Est. Patient 12:13:53 CDT Ismael Denton [facility] CPT-60469 Level 4 Est. Patient 12:28:51 HEALTH PROGRAM ANALYST Wayne delatorre [facility] CPT-00841 Level 3 Est. Patient 15:23:42 HEALTH PROGRAM ANALYST Wayne delatorre TREY [facility] [place] CPT-03494 Level 3 Est. Patient 06:34:33 HEALTH PROGRAM ANALYST Wayne delatorre TREY [facility] [place] Procedures Code Procedure Name Date Entry Date Standard Desc ription CPT-26754 Allergy Admin 2 16:51:42 CDT CPT-30109 Allergy Admin 2 16:26:50 CDT CPT-12762 Allergy Admin 2 17:02:53 CDT CPT-62301 Allergy Admin 2 16:32:35 CDT CPT-19693 Allergy Admin 2 16:26:27 CDT CPT-J3420 Vitamin B12 1000mcg (Cyanocobalamin) 16:32:13 CDT CPT-49778 Abx/Therapy Injection 16:32:13 CDT CPT-12259 Allergy Admin 2 16:32:12 CDT CPT-57147 Allergy Admin 2 16:05:03 CDT CPT-32600 Allergy Admin 2 16:35:15 CDT CPT-88965 Allergy Admin 2 16:20:41 CDT CPT-21938 Allergy Admin 2 11:25:21 CDT CPT-69838 Allergy Admin 2 15:46:12 CDT CPT-NS6800U (4274F) Influenza immunization administe red or previously received 17:51:44 HEALTH PROGRAM ANALYST CPT-03607 Spec Collection and Handling Fee 10:45:[address] CPT-[id number] (4274F) Influenza immunization administe red or previously received 10:20:17 CDT CPT-18032 Prv Med Est Pt 40-64yrs 16:26:57 CDT CPT-06849 Venipuncture Draw Fee 11:08:31 CDT CPT-78480 Magnesium - LAB USE ONLY 11:08:31 CDT 10/15 CPT-90577 TSH - LAB USE ONLY 11:08:31 CDT CPT-42494 Lipid - LAB USE ONLY 11:08:30 CDT 2 CPT-99312 CMP - LAB USE ONLY 11:08:30 CDT CPT-77244 CBC - LAB USE ONLY 11:08:30 CDT CPT-73711 Spec Collection and Handling Fee 16:14:51 C DT CPT-52926 UA w micro - LAB USE ONLY 16:14:51 CDT 2018 CPT-63099 Prv Med Est Pt 40-64yrs 08:34:49 CDT 10/01 CPT-16888 Sed Rate - LAB USE ONLY 10:50:49 CDT 10/02 CPT-25188 TSH - LAB USE ONLY 10:50:49 CDT CPT-32060 Lipid - LAB USE ONLY 10:50:49 CDT 0 CPT-73989 Magnesium - LAB USE ONLY 10:50:49 CDT 10/02 CPT-24314 CMP - LAB USE ONLY 10:50:49 CDT CPT-23369 CBC - LAB USE ONLY 10:50:49 CDT CPT-32942 Venipuncture Draw Fee 10:50:49 CDT CPT-41105 IV Hydration < or = 1 hr 22:05:50 CDT 04/16 CPT-J7030 Normal Saline 1000 mL 22:05:50 CDT CPT-68253 Abx/Therapy Injection 16:31:51 HEALTH PROGRAM ANALYST CPT-J2950 Phenergan 25 mg 16:31:51 HEALTH PROGRAM ANALYST CPT-94730 Abx/Therapy Injection 16:39:40 CDT CPT-92230 First Vx - Ix admin via ID I M or jet injects without counseling by physician 16:39:39 CDT CPT-12461 Prv Med Est Pt 40-64yrs 16:33:10 CDT 11/10 CPT-JTINJ Asp/Joint Injection 16:13:36 CDT CPT-97065 Allergy Admin 2 16:54:52 CDT CPT-40096 Allergy Admin 2 16:46:15 CDT CPT-19126 Allergy Admin 2 11:29:09 CDT CPT-36820 Allergy Admin 2 17:05:15 CDT CPT-60594 Allergy Admin 2 12:31:51 CDT CPT-71051 Allergy Admin 2 15:40:56 CDT CPT-55541 CBC - LAB USE ONLY 09:49:24 CDT CPT-03237 CMP - LAB USE ONLY 09:49:24 CDT CPT-19390 Lipid - LAB USE ONLY 09:49:24 CDT 8 CPT-52634 Venipuncture Draw Fee 09:49:24 CDT CPT-45313 Allergy Admin 2 10:46:11 CDT CPT-JTINJ Asp/Joint Injection 09:52:58 CDT CPT-13759 Skin tag rem 1-15 13:46:20 CDT CPT-29782 Knee, right, 3V - XRAY USE ONLY 13:07:09 CD T CPT-19754 Allergy Admin 2 11:56:38 CDT CPT-98234 Allergy Admin 2 12:00:55 CDT CPT-33324 Allergy Admin 2 16:42:13 CDT CPT-94612 Allergy Admin 2 16:27:55 CDT CPT-89269 Allergy Admin 2 13:24:26 CDT CPT-71174 Allergy Admin 2 17:17:57 [facility] CPT-01086 Allergy Admin 2 16:23:22 [facility] CPT-01354 Allergy Admin 2 16:26:55 [facility] CPT-30676 Allergy Admin 2 16:32:33 [facility] CPT-36175 Allergy Admin 2 17:43:40 [facility] CPT-44148 Allergy Admin 2 16:26:07 [facility] CPT-30442 Allergy Admin 2 12:31:50 [facility] CPT-54198 Allergy Admin 2 16:40:38 [facility] CPT-12421 Allergy Admin 2 17:07:36 T CPT-G0008 Administration of Influenza Virus Vaccine 17:01:01 CDT CPT-78964 First Vx - Ix admin via ID I M or jet injects without counseling by physician 17:01:01 CDT CPT-30535 Allergy Admin 2 12:06:54 CDT CPT-94659 Allergy Admin 2 17:04:46 CDT CPT-25842 Allergy Admin 2 16:34:48 CDT CPT-99097 Allergy Admin 2 17:04:51 CDT CPT-46194 Allergy Admin 2 16:25:14 CDT CPT-30568 Allergy Admin 2 10:52:02 CDT CPT-41357 Allergy Admin 2 11:45:31 CDT CPT-36821 Allergy Admin 2 12:02:20 CDT CPT-96833 Allergy Admin 2 15:47:29 CDT CPT-96170 Allergy Admin 2 13:25:44 CDT CPT-35329 Allergy Admin 2 10:51:13 CDT CPT-54070 CBC - LAB USE ONLY 10:44:39 CDT CPT-37572 CMP - LAB USE ONLY 10:44:39 CDT CPT-35056 Lipid - LAB USE ONLY 10:44:39 CDT 9 CPT-23252 Venipuncture Draw Fee 10:44:38 CDT CPT-29594 Allergy Admin 2 12:25:22 CDT CPT-01195 Allergy Admin 2 12:41:34 CDT CPT-47649 Allergy Admin 2 15:29:46 CDT CPT-54461 Allergy Admin 2 14:46:53 CDT CPT-21593 Allergy Admin 2 14:16:16 CDT CPT-13354 Allergy Admin 2 16:55:26 CDT CPT-66937 Allergy Admin 2 10:12:02 CDT CPT-60664 Allergy Admin 2 14:53:56 CDT CPT-20450 Allergy Admin 2 17:01:54 CDT CPT-43377 Allergy Admin 2 09:36:02 CDT CPT-86369 Allergy Admin 2 16:53:26 [facility] CPT-73314 Allergy Admin 2 16:59:41 [facility] CPT-02132 Allergy Admin 2 16:36:44 [facility] CPT-56906 Allergy Admin 2 16:17:16 [facility] CPT-05510 Allergy Admin 2 17:08:10 [facility] CPT-72942 Allergy Admin 2 12:16:08 [facility] CPT-63456 Allergy Admin 2 16:47:30 [facility] CPT-39503 Allergy Admin 2 16:59:44 [facility] CPT-86001 Allergy Admin 2 12:48:53 [facility] CPT-06885 Allergy Admin 2 10:19:48 [facility] CPT-49977 Allergy Admin 2 12:40:17 [facility] CPT-56339 Abx/Therapy Injection 17:21:59 [facility] CPT-04164 First Vx - Ix admin via ID I M or jet injects without counseling by physician 17:21:57 [facility] CPT-51977 Allergy Admin 2 17:20:12 [facility] CPT-74759 Allergy Admin 2 11:12:50 [facility] CPT-15051 Allergy Admin 2 17:02:39 CDT CPT-02922 BMP - LAB USE ONLY 10:33:02 CDT CPT-80342 CBC - LAB USE ONLY 10:33:02 CDT CPT-84747 Venipuncture Draw Fee 10:33:02 CDT CPT-25764 Abx/Therapy Injection 12:29:08 CDT CPT-90445 Allergy Admin 2 10:39:48 CDT CPT-46994 Allergy Admin 2 10:55:47 CDT CPT-PV Prev. Care Visit 10:10:00 CDT CPT-40244 Allergy Admin 2 11:31:20 CDT CPT-76552 Allergy Admin 2 16:53:45 CDT CPT-80502 Allergy Admin 2 16:36:42 CDT CPT-91021 Allergy Admin 2 16:30:19 CDT CPT-44887 Allergy Admin 2 15:39:35 CDT CPT-46674 Allergy Admin 2 17:51:32 CDT CPT-81368 Allergy Admin 2 11:50:50 CDT CPT-PV Prev. Care Visit 14:09:05 CDT CPT-70481 Allergy Admin 2 13:37:39 CDT CPT-95211 Abx/Therapy Injection 12:17:43 CDT CPT-27326 Venipuncture Draw Fee 10:39:55 CDT CPT-19573 Allergy Admin 2 12:04:53 CDT CPT-50194 Allergy Admin 2 10:04:39 CDT CPT-11342 Allergy Admin 2 12:15:35 CDT CPT-58398 Allergy Admin 2 17:04:36 CDT CPT-22117 Allergy Admin 2 16:25:49 CDT CPT-19992 Allergy Admin 2 17:30:06 CDT CPT-75375 Allergy Admin 2 10:11:48 CDT CPT-63512 Allergy Admin 2 17:06:13 CDT CPT-83413 Abx/Therapy Injection 12:23:07 CDT CPT-J0702 Celestone 12 mg (Betamethasone) 12:23:07 CD T CPT-66043 Venipuncture Draw Fee 10:26:42 CDT CPT-41025 Allergy Admin 2 12:10:01 CDT CPT-91982 Allergy Admin 2 15:13:57 HEALTH PROGRAM ANALYST CPT-51074 Allergy Admin 2 16:55:22 HEALTH PROGRAM ANALYST CPT-01206 Allergy Admin 2 10:13:46 HEALTH PROGRAM ANALYST CPT-10351 Venipuncture Draw Fee 10:06:08 HEALTH PROGRAM ANALYST CPT-58070 Allergy Admin 2 16:15:41 HEALTH PROGRAM ANALYST CPT-65428 Allergy Admin 2 16:40:21 HEALTH PROGRAM ANALYST CPT-69816 Allergy Admin 2 16:31:48 HEALTH PROGRAM ANALYST CPT-04558 Allergy Admin 2 16:38:26 HEALTH PROGRAM ANALYST CPT-40589 Allergy Admin 2 16:40:08 HEALTH PROGRAM ANALYST CPT-40478 Allergy Admin 2 08:34:27 HEALTH PROGRAM ANALYST CPT-05677 Allergy Admin 2 14:27:45 HEALTH PROGRAM ANALYST CPT-62338 Destruction bgn lsn up to 14 09:41:27 HEALTH PROGRAM ANALYST 2 CPT-69210 Allergy Admin 2 17:45:17 HEALTH PROGRAM ANALYST CPT-53585 Allergy Admin 2 14:59:03 HEALTH PROGRAM ANALYST CPT-22907 Allergy Admin 2 12:49:42 CDT CPT-02277 Administration single or combination vac cine inc oral 15:01:57 CDT CPT-79982 Fluzone Quadrivalent Intramuscular Suspe nsion 0.5 ML 15:01:57 CDT CPT-77603 Allergy Admin 2 15:07:08 CDT CPT-51672 Allergy Admin 2 15:39:01 CDT CPT-16183 Allergy Admin 2 17:40:11 CDT CPT-18942 Allergy Admin 2 16:07:08 CDT CPT-26332 Allergy Admin 2 16:08:07 CDT CPT-85609 Venipuncture Draw Fee 09:34:29 CDT CPT-36266 Allergy Admin 2 16:27:43 CDT CPT-85402 Allergy Admin 2 15:53:10 CDT CPT-42266 Allergy Admin 2 15:42:29 CDT CPT-62037 Allergy Admin 2 11:26:14 CDT CPT-00802 Allergy Admin 2 10:36:24 CDT CPT-92309 Allergy Admin 2 16:53:37 CDT CPT-14989 Allergy Admin 2 11:21:44 CDT CPT-38363 Allergy Admin 2 10:50:40 CDT CPT-49234 Allergy Admin 2 11:19:11 CDT CPT-21263 Venipuncture Draw Fee 11:12:25 CDT CPT-65911 Allergy Admin 2 11:14:51 CDT CPT-18153 Allergy Admin 2 16:53:11 CDT CPT-83342 Allergy Admin 2 11:45:56 CDT CPT-93681 Allergy Admin 2 12:51:39 CDT CPT-42706 Allergy Admin 2 12:08:56 CDT CPT-74331 Allergy Admin 2 15:29:45 CDT CPT-29327 Allergy Admin 2 16:34:01 CDT CPT-58826 Allergy Admin 2 16:36:46 CDT CPT-93481 Allergy Admin 2 15:19:16 CDT CPT-50076 Allergy Admin 2 16:13:25 CDT CPT-20222 Allergy Admin 2 17:06:17 CDT CPT-41664 Allergy Admin 2 10:42:10 HEALTH PROGRAM ANALYST CPT-12479 Allergy Admin 2 17:33:16 HEALTH PROGRAM ANALYST CPT-67630 Allergy Admin 2 10:53:30 HEALTH PROGRAM ANALYST CPT-48131 Allergy Admin 2 14:18:24 HEALTH PROGRAM ANALYST CPT-64774 Allergy Admin 2 10:18:29 HEALTH PROGRAM ANALYST CPT-13666 Allergy Admin 2 12:57:40 HEALTH PROGRAM ANALYST CPT-56020 Allergy Admin 2 16:53:33 HEALTH PROGRAM ANALYST CPT-21789 Allergy Admin 2 12:43:00 HEALTH PROGRAM ANALYST CPT-48687 Allergy Admin 2 13:14:09 HEALTH PROGRAM ANALYST CPT-82932 Pneumovax 23 Injection Injectable 25 MCG /0.5ML 09:51:29 HEALTH PROGRAM ANALYST CPT-G0009 Administration of Pneumococcal Vaccine 09:51:29 HEALTH PROGRAM ANALYST CPT-37017 Influenza split virus > age 3 09:51:29 HEALTH PROGRAM ANALYST CPT-G0008 Administration of Influenza Virus Vaccine 02/23 09:51:29 HEALTH PROGRAM ANALYST CPT-57936 Venipuncture Draw Fee 10:31:06 CDT CPT-J0702 Celestone 12 mg (Betamethasone) 11:34:17 CD T CPT-51597 Abx/Therapy Injection 11:34:17 CDT CPT-08587 Chest 2V Frontal and Lat 11:31:47 CDT 07/04 CPT-76030 Venipuncture Draw Fee 11:31:47 CDT CPT-82020 Allergy Admin 2 14:31:05 CDT CPT-38501 EKG Trac and Interp 08:42:32 CDT CPT-28272 Chest 2V Frontal and Lat 08:42:32 CDT 05/28 CPT-20747 Venipuncture Draw Fee 08:39:02 CDT CPT-00733 Allergy Admin 2 16:59:09 CDT CPT-82149 Allergy Admin 2 17:06:11 CDT CPT-65833 Allergy Admin 2 16:04:36 CDT CPT-36331 Venipuncture Draw Fee 16:32:44 HEALTH PROGRAM ANALYST CPT-38286 Venipuncture Draw Fee 10:54:37 HEALTH PROGRAM ANALYST CPT-32838 Allergy Admin 2 14:53:55 HEALTH PROGRAM ANALYST CPT-00606 Allergy Admin 2 10:23:58 HEALTH PROGRAM ANALYST CPT-22984 First Vx Component - Ix admi n via ID IM or jet inj without physician counseling 15:34:26 HEALTH PROGRAM ANALYST CPT-88938 Fluzone (>=3 yrs.) 15:34:26 HEALTH PROGRAM ANALYST CPT-39222 Allergy Admin 2 15:56:02 HEALTH PROGRAM ANALYST CPT-03244 Allergy Admin 2 11:08:58 HEALTH PROGRAM ANALYST CPT-59992 Allergy Admin 2 10:51:36 HEALTH PROGRAM ANALYST CPT-82827 Allergy Admin 2 15:38:19 HEALTH PROGRAM ANALYST CPT-69045 Allergy Admin 2 15:12:46 CDT CPT-97748 Allergy Admin 2 10:28:50 CDT CPT-68717 Allergy Admin 2 16:35:33 CDT CPT-26124 Allergy Admin 2 10:14:18 CDT CPT-04204 Abx/Therapy Injection 09:06:45 CDT CPT-J0702 Celestone 6 mg (Betamethasone) 09:06:45 CDT CPT-47988 Allergy Admin 2 15:51:15 CDT CPT-50992 Allergy Admin 2 10:40:16 CDT CPT-22894 Allergy Admin 2 16:35:55 CDT CPT-15262 Allergy Admin 2 13:12:52 CDT CPT-03716 Allergy Admin 2 16:06:50 CDT CPT-85191 Allergy Admin 2 11:04:24 CDT CPT-84121 Allergy Admin 2 10:44:50 CDT CPT-21573 Allergy Admin 2 15:13:40 CDT CPT-33645 Allergy Admin 2 15:00:03 CDT CPT-72569 Allergy Admin 2 10:37:38 CDT CPT-32425 Venipuncture Draw Fee 09:16:43 HEALTH PROGRAM ANALYST CPT-89682 Allergy Admin 2 11:15:59 HEALTH PROGRAM ANALYST CPT-08595 Postop F/U Visit 10:10:52 HEALTH PROGRAM ANALYST CPT-21170 Allergy Admin 2 13:05:05 HEALTH PROGRAM ANALYST CPT-68806 Postop F/U Visit 19:45:16 HEALTH PROGRAM ANALYST CPT-99969 Allergy Admin 2 11:52:35 HEALTH PROGRAM ANALYST CPT-78588 Allergy Admin 2 10:49:22 HEALTH PROGRAM ANALYST CPT-OV Office Visit 13:55:55 HEALTH PROGRAM ANALYST CPT-03097 Allergy Admin 2 12:54:28 HEALTH PROGRAM ANALYST CPT-OV Office Visit 14:04:48 HEALTH PROGRAM ANALYST CPT-13654 Venipuncture Draw Fee 10:29:14 HEALTH PROGRAM ANALYST CPT-42941 Allergy Admin 2 11:24:43 HEALTH PROGRAM ANALYST CPT-90492 Knee 3V 11:00:12 HEALTH PROGRAM ANALYST CPT-83652 C-Spine Min 4V 11:00:12 HEALTH PROGRAM ANALYST CPT-08716 Allergy Admin 2 13:38:40 HEALTH PROGRAM ANALYST CPT-34315 Venipuncture Draw Fee 11:33:37 CDT CPT-56841 Allergy Admin 2 15:34:37 CDT CPT-71630 Allergy Admin 2 14:11:42 CDT CPT-35347 Administration single or combination vac cine inc oral 12:51:42 CDT CPT-92763 Influenza split virus > age 3 12:51:42 CDT CPT-80910 Allergy Admin 2 11:58:43 CDT CPT-27773 Allergy Admin 2 11:29:32 CDT CPT-35577 Allergy Admin 2 10:55:19 CDT CPT-37753 Allergy Admin 2 12:38:54 CDT CPT-46054 Allergy Admin 2 13:01:47 CDT CPT-00546 Abx/Therapy Injection 12:41:18 CDT CPT-J0702 Celestone 12 mg (Betamethasone) 12:41:18 CD T CPT-52954 Abx/Therapy Injection 16:33:09 CDT CPT-J0702 Celestone 12 mg (Betamethasone) 16:33:09 CD T CPT-88471 Allergy Admin 2 15:49:09 CDT CPT-34951 Allergy Admin 2 12:08:56 CDT CPT-46196 Allergy Admin 2 12:19:10 CDT CPT-46994 Allergy Admin 2 12:46:56 CDT CPT-15415 Allergy Admin 2 15:05:13 CDT CPT-27801 Allergy Admin 2 15:36:20 CDT CPT-54851 Allergy Admin 2 09:58:47 HEALTH PROGRAM ANALYST CPT-35816 Allergy Admin 2 12:18:06 HEALTH PROGRAM ANALYST CPT-90962 Allergy Admin 2 10:01:48 HEALTH PROGRAM ANALYST CPT-73082 Allergy Admin 2 12:17:53 HEALTH PROGRAM ANALYST CPT-39587 Allergy Admin 2 10:06:44 HEALTH PROGRAM ANALYST CPT-00144 Allergy Admin 2 10:13:04 HEALTH PROGRAM ANALYST CPT-01407 Venipuncture Draw Fee 10:09:07 HEALTH PROGRAM ANALYST CPT-95392 Bone Density 12:24:51 HEALTH PROGRAM ANALYST CPT-51261 Allergy Admin 2 11:29:41 HEALTH PROGRAM ANALYST CPT-35552 Allergy Admin 2 16:07:15 HEALTH PROGRAM ANALYST CPT-85169 Breathing Treatment 06:34:33 HEALTH PROGRAM ANALYST CPT-J0702 Celestone 12 mg (Betamethasone) 06:34:33 CS T CPT-74441 Abx/Therapy Injection 06:34:33 HEALTH PROGRAM ANALYST CPT-01904 Breathing Tx 11:07:33 HEALTH PROGRAM ANALYST CPT-48557 Allergy Admin 2 10:02:33 CDT CPT-21923 Allergy Admin 2 10:02:33 CDT CPT-57020 Allergy Admin 2 15:26:19 CDT CPT-75157 Administration single or combination vac cine inc oral 15:41:12 CDT CPT-16887 Influenza split virus > age 3 15:41:12 CDT
--- OUTSIDE RECORDS SUMMARY | 2020-09-15 14:39 | XMS REPORT | Clinical Summary ---
Author Author Admin, Supriya Zuniga Organization [facility] Address Unknown Phone Unavailable Allergies, [...] FAMILY HISTORY OF ALCOHOLISM V61.41 Active Wayne AYNG Alcoholism in family SINUSITIS 473.9 Resolved Lois [...] DISC DISEASE, CERVICAL SPINE 722.4 Resol burak Wayen YANG Degeneration of cervical intervertebral disc SKIN [...] Yang APRN Pruritus vulvae Active Ashley Yokum DRILLING AND PRODUCTION SUPERINTENDENT Screening mammogram V76.12 Resolved Ashley Yokum A PRN Other screening mammogram Sinusitis, acute maxillary 461.0 Inactive 7 Ashley Yokum DRILLING AND PRODUCTION SUPERINTENDENT Acute maxillary sinusitis Diarrhea, acute 787.91 Resolved Ashley Yokum DRILLING AND PRODUCTION SUPERINTENDENT Diarrhea Vaginal candidiasis 112.1 Resolved Ashley Yokum A PRN Candidiasis of vulva and vagina Accidental fall E888.9 Resolved Ashley Yokum DRILLING AND PRODUCTION SUPERINTENDENT Unspecified fall Contusion of left hand, initial encounter 923.20 Resol burak Ashley Yokum DRILLING AND PRODUCTION SUPERINTENDENT Contusion of hand(s) Contusion of right upper arm, subsequent encounter V58.89 201 09/14/21 Resolved Ashley Yokum DRILLING AND PRODUCTION SUPERINTENDENT Encounter for other specified a ftercare Ganglion cyst of left wrist 727.41 Active Derrick Younger MD Ganglion of joint Body Mass Index 31.0-31.9 Adult Resolved 2017 Ashley Yokum DRILLING AND PRODUCTION SUPERINTENDENT Body Mass Index 31.0-31.9, adult Plantar fasciitis 728.71 Active Ashley Yokum DRILLING AND PRODUCTION SUPERINTENDENT Plantar fascial fibromatosis Bronchitis, acute 466.0 Inactive Ashley Yokum APR N Acute bronchitis Body Mass Index 30.0-30.9 Adult Resolved 2017 Ashley Yokum DRILLING AND PRODUCTION SUPERINTENDENT Body Mass Index 30.0-30.9, adult Allergic conjunctivitis, bilateral 372.14 Resolved 2 Ashley Yokum DRILLING AND PRODUCTION SUPERINTENDENT Other chronic allergic conjunctivitis Skin tags; irritated/inflammed 701.9 Resolved 11/10 Ashley Yokum DRILLING AND PRODUCTION SUPERINTENDENT Unspecified hypertrophic and atrophic co nditions of skin Body Mass Index 31.0-31.9 Adult Refinement 2017 Ashley Yokum DRILLING AND PRODUCTION SUPERINTENDENT Body Mass Index 31.0-31.9, adult BMI 30-30.9 Refinement Ashley Yokum DRILLING AND PRODUCTION SUPERINTENDENT Body Mass Index 31.0-31.9, adult BMI 31-31.9 Refinement Ashley Yokum DRILLING AND PRODUCTION SUPERINTENDENT Body Mass Index 31.0-31.9, adult BMI 32-32.9 Refinement Lois Faith RN Body Mass Index 31.0-31.9, adult BMI 31-31.9 Active Viviana Rubio APRN-Julieta Body Mass Index 31.0-31.9, adult Major depression, recurrent, moderate 296.32 Active Ashley Yokum DRILLING AND PRODUCTION SUPERINTENDENT Major depressive disorder, recurrent epi sode, moderate degree Obesity Class I (BMI 30-34.9) Active Ashley Y okum DRILLING AND PRODUCTION SUPERINTENDENT Obesity, unspecified Nausea and vomiting 787.01 Resolved Ashley Yokum A PRN Nausea with vomiting Gastroenteritis acute 558.9 Resolved Ashley Yokum DRILLING AND PRODUCTION SUPERINTENDENT Other and unspecified noninfectious gastroenteritis and colitis GERD 530.81 Active Ashley Yokum DRILLING AND PRODUCTION SUPERINTENDENT E sophageal reflux Joint pain 719.40 Resolved Ashley Yokum DRILLING AND PRODUCTION SUPERINTENDENT Pain in joint, site unspecified Preventive health care, adult V70.0 Inactive / Ashley Yokum DRILLING AND PRODUCTION SUPERINTENDENT Routine general medical examination at a health care facility Blood in urine 599.70 Resolved Ashley Yokum DRILLING AND PRODUCTION SUPERINTENDENT Hematuria, unspecified Other abnormal findings in urine Resolved Ashley Yokum DRILLING AND PRODUCTION SUPERINTENDENT Urinary tract infection 599.0 Inactive Ashley Yok um DRILLING AND PRODUCTION SUPERINTENDENT Urinary tract infection, site not specified Chafing of skin 709.8 Resolved Ashley Yokum DRILLING AND PRODUCTION SUPERINTENDENT Other specified disorders of skin Preventive care V70.0 Active Supriya Betzaida A Routine general medical examination at a health care facility Gynecological examination, routine V72.3 Inactive 2 Ashley Yokum DRILLING AND PRODUCTION SUPERINTENDENT Special investigations and e xaminations - Gynecological examination Near syncope 780.2 Resolved Ashley Yokum DRILLING AND PRODUCTION SUPERINTENDENT Syncope and collapse Lightheadedness 780.4 Resolved Ashley Yokum DRILLING AND PRODUCTION SUPERINTENDENT Dizziness and giddiness Headache 784.0 Resolved Ashley Yokum DRILLING AND PRODUCTION SUPERINTENDENT Headache Sore throat 462 Resolved Ashley Yokum DRILLING AND PRODUCTION SUPERINTENDENT Acute pharyngitis Sinusitis - acute 461.9 Resolved Ashley Yokum APR N Acute sinusitis, unspecified Tired all the time 780.79 Resolved Ashley Yokum AP RN Other malaise and fatigue Fatigue 780.79 Inactive Ashley Yokum DRILLING AND PRODUCTION SUPERINTENDENT Other malaise and fatigue ABNORMAL WEIGHT GAIN ICD-783.1 Inactive Wayne YANG ALLERGIC RHINITIS ICD-477.9 Inactive Lois Stephens gayatri DRILLING AND PRODUCTION SUPERINTENDENT SINUSITIS ICD-473.9 Inactive Lois Deric DRILLING AND PRODUCTION SUPERINTENDENT 2012 WHEEZING ICD-786.07 Inactive Olis Deric DRILLING AND PRODUCTION SUPERINTENDENT 2012 UPPER RESPIRATORY INFECTION, ACUTE ICD-465.9 I nactive Lois Deric DRILLING AND PRODUCTION SUPERINTENDENT NEED FOR DESENSITIZATION TO ALLERGENS ICD-V07.1 8 Inactive Ashley Yokum DRILLING AND PRODUCTION SUPERINTENDENT OBESITY ICD-278.00 Inactive Wayne YANG CONTACT DERMATITIS DUE TO POISON ARANZA ICD-692.6 Inactive Lois Leos DRILLING AND PRODUCTION SUPERINTENDENT NEED PROPHYLACTIC VACCINATION&INOCULATION FLU ICD-V04.81 Inactive Wayne Harms PA GERD ICD-530.81 Inactive Lois Leos DRILLING AND PRODUCTION SUPERINTENDENT 03/22 LONG-TERM (CURRENT) USE OF OTHER MEDICATIONS ICD-V58.69 6 Inactive Wayne Harms PA NECK PAIN ICD-723.1 Inactive Wayne Harms PA 06/15 DEGENERATIVE DISC DISEASE, CERVICAL SPINE ICD-722.4 Inactive Wayne Harms PA SKIN TAG ICD-701.9 Inactive Wayne Harms PA G E R D ICD-530.81 Inactive Lois Leos DRILLING AND PRODUCTION SUPERINTENDENT CANDIDIASIS OF SKIN AND NAILS ICD-112.3 Inacti ve Wayne Harms PA AFTERCARE FOLLOW SURGERY MUSCULOSKEL SYSTEM NEC ICD-V58.78 Inactive Wayne Harms PA PHARYNGITIS ICD-462 Inactive Wayne Harms PA 05/03 OTHER SCREENING MAMMOGRAM ICD-V76.12 Inactive Wayne Harms PA DYSPAREUNIA, MILD ICD-625.0 Inactive Wayne Harm s PA CONTACT DERMATITIS DUE TO POISON ARANZA ICD-692.6 Inactive Wayne Harms PA Sinusitis, chronic ICD-473.9 Inactive Ashley vallejo DRILLING AND PRODUCTION SUPERINTENDENT Myalgia ICD-729.1 Inactive Wayne Harms PA Rheumatoid [...] PA Runny nose ICD-472.0 Inactive Ashley Yang DRILLING AND PRODUCTION SUPERINTENDENT Influenza like illness ICD-487.1 Inactive Wayne Moon PA Acute maxillary sinusitis ICD-461.0 Inactive Ashley Yokum DRILLING AND PRODUCTION SUPERINTENDENT Preventive health care ICD-V70.0 Inactive Jenny mo Yokum DRILLING AND PRODUCTION SUPERINTENDENT Well women exam ICD-V72.3 Inactive Ashley Yokum DRILLING AND PRODUCTION SUPERINTENDENT Screening mammogram ICD-V76.12 Inactive Ashley Yokum DRILLING AND PRODUCTION SUPERINTENDENT Sinusitis, acute maxillary ICD-461.0 Inactive Ashley Yokum DRILLING AND PRODUCTION SUPERINTENDENT Diarrhea, acute ICD-787.91 Inactive Ashley Merazu m DRILLING AND PRODUCTION SUPERINTENDENT Vaginal candidiasis ICD-112.1 Inactive Ashley Y abdonum DRILLING AND PRODUCTION SUPERINTENDENT Accidental fall ICD-E888.9 Inactive Ashley Yoku m DRILLING AND PRODUCTION SUPERINTENDENT Contusion of left hand, initial encounter ICD-923.20 Inactive Ashley Yokum DRILLING AND PRODUCTION SUPERINTENDENT Contusion of right upper arm, subsequent encounter ICD-V58.89 Inactive Ashley Yokum DRILLING AND PRODUCTION SUPERINTENDENT Body Mass Index 31.0-31.9 Adult Inac tive Ashley Yokum DRILLING AND PRODUCTION SUPERINTENDENT Bronchitis, acute ICD-466.0 Inactive Ashley Yok um DRILLING AND PRODUCTION SUPERINTENDENT Body Mass Index 30.0-30.9 Adult Inac tive Ashley Yokum DRILLING AND PRODUCTION SUPERINTENDENT Allergic conjunctivitis, bilateral ICD-372.14 I nactive Ashley Yokum DRILLING AND PRODUCTION SUPERINTENDENT Skin tags; irritated/inflammed ICD-701.9 Inact rancho Ashley Yokum DRILLING AND PRODUCTION SUPERINTENDENT Nausea and vomiting ICD-787.01 Inactive Ashley Yokum DRILLING AND PRODUCTION SUPERINTENDENT Gastroenteritis acute ICD-558.9 Inactive Conchis hi Yokum DRILLING AND PRODUCTION SUPERINTENDENT Joint pain ICD-719.40 Inactive Ashley Yokum APR N Preventive health care, adult ICD-V70.0 Inacti ve Ashley Yokum DRILLING AND PRODUCTION SUPERINTENDENT Blood in urine ICD-599.70 Inactive Ashley Yokum DRILLING AND PRODUCTION SUPERINTENDENT Other abnormal findings in urine [place] ctive Ashley Yokum DRILLING AND PRODUCTION SUPERINTENDENT Urinary tract infection ICD-599.0 Inactive K athi Yokum DRILLING AND PRODUCTION SUPERINTENDENT Chafing of skin ICD-709.8 Inactive Ashley Yokum DRILLING AND PRODUCTION SUPERINTENDENT Gynecological examination, routine ICD-V72.3 I nactive Ashley Yokum DRILLING AND PRODUCTION SUPERINTENDENT Near syncope ICD-780.2 Inactive Ashley Yokum AP RN Lightheadedness ICD-780.4 Inactive Ashley Yokum DRILLING AND PRODUCTION SUPERINTENDENT Headache ICD-784.0 Inactive Ashley Yokum DRILLING AND PRODUCTION SUPERINTENDENT 2020 Sore throat ICD-462 Inactive Ashley Yokum DRILLING AND PRODUCTION SUPERINTENDENT 02/17/17 Sinusitis - acute ICD-461.9 Inactive Ashley Yok um DRILLING AND PRODUCTION SUPERINTENDENT Tired all the time ICD-780.79 Inactive Ashley gutierrez DRILLING AND PRODUCTION SUPERINTENDENT Fatigue ICD-780.79 Inactive Ashley Merazum DRILLING AND PRODUCTION SUPERINTENDENT 2020 Medication List Medication Instructions Start Date Stop Date Generic Name NDC Status Provider Patient Instruction ALPRAZOLAM 0.25 MG TABS TAKE 1 TO 2 TABLETS BY MOUTH THREE TIMES DAILY NEEDED ALPRAZOLAM 95823600270 Active Shanelle Rivera RN Active PHENTERMINE HCL 37.5 MG ORAL TABLET 1/2 qAM, can incre ase to 1 qAM - take 30 min before or 2 hrs after breakfast PHENTERMINE HCL 01158 661000 Active Ashley Merazum DRILLING AND PRODUCTION SUPERINTENDENT Active MUCINEX D 60-600 MG ORAL TABLET EXTENDED RELEASE 12 HO UR 1 po BID PRN Congestion PSEUDOEPHEDRINE-GUAIFENESIN 88963784065 Active Ashley Yang DRILLING AND PRODUCTION SUPERINTENDENT Active ZYRTEC ALLERGY 10 MG ORAL CAPSULE 1qd CETIR IZINE HCL 23680291019 No Longer Active Ashley Yang DRILLING AND PRODUCTION SUPERINTENDENT Active HAIR, SKIN, NAILS VITAMINS take 1 tab by mouth 2x a day HAIR, SKIN, NAILS VITAMINS Active Ashley Merazum DRILLING AND PRODUCTION SUPERINTENDENT Active CENTRUM SILVER FOR WOMEN OVER 50 1 tab by mouth by day. CENTRUM SILVER FOR WOMEN OVER 50 Active Ashley Yang DRILLING AND PRODUCTION SUPERINTENDENT Active VITAMIN D3 1000 UNIT ORAL CAPSULE 1 po qd CH OLECALCIFEROL 34676905668 Active Ashley Merazum DRILLING AND PRODUCTION SUPERINTENDENT Active PREDNISONE 20 MG ORAL TABLET Take 2 tablets by mouth d aily for 2 days then 1 tablet daily for 2 days. PREDNISONE 27864079957 No Longer Active Ashley Merazum DRILLING AND PRODUCTION SUPERINTENDENT Active MELOXICAM 15 MG ORAL TABLET TAKE 1 TABLET BY MOUTH IN THE MORNING 2 MELOXICAM 20517365190 Active LARRY Murillo Active CLARITIN 10 MG ORAL TABLET 1 tablet by mouth daily as needed for allergies LORATADINE 47775452516 Active Supriya JUAREZ Active SIMVASTATIN 40 MG ORAL TABLET TAKE 1 TABLET BY MOUTH ONCE DA JAVON AT BEDTIME SIMVASTATIN 61601184140 Active Marcy Medina RMA Active ZBBDGMI-WTYCHMLJV-RHAN ORAL TABLET MULT IPLE MINERALS 28560324232 Active Lois Faith, RN Active SERTRALINE HCL 100 MG ORAL TABLET Take 1 tablet by mouth once da javon SERTRALINE HCL 42682910597 Active Marcy Medina RMA A ctive REGLAN 10 MG ORAL TABLET 1 po qid for bowels 3 METOCLOPRAMIDE HCL 28988751466 No Longer Active Ashley Yokum DRILLING AND PRODUCTION SUPERINTENDENT A ctive ADK [id number] UNIT-MCG ORAL CAPSULE 1 daily VITAMINS A D K 23851778410 Active Ashley Yokum DRILLING AND PRODUCTION SUPERINTENDENT Active B-12 2500 MCG ORAL TABLET 1 daily CYANOCOBAL HUNT 18580052968 No Longer Active Ashley Yokum DRILLING AND PRODUCTION SUPERINTENDENT Active ESTRADIOL 2 MG TABS Take 1 tablet by mouth once daily ESTRADIOL 51419881807 Active Shanelleroyce Rivera RN Active MACROBID 100 MG ORAL CAPSULE 1 cap by mouth twice daily NITROFURANTOIN MONOHYD MACRO 65673355511 No Longer Active Ashley Yokum DRILLING AND PRODUCTION SUPERINTENDENT Active FISH OIL + D3 6958-2714 MG-UNIT ORAL CAPSULE 1 dailly 4 FISH OIL-CHOLECALCIFEROL 39951510916 Active Ashley Yokum DRILLING AND PRODUCTION SUPERINTENDENT Acti ve PROAIR HFA 108 (90 BASE) MCG/ACT INHALATION AEROSOL SO LUTION 2 puffs four times a day as needed ALBUTEROL SULFATE 88695569362 No Long er Active Ashley Yokum DRILLING AND PRODUCTION SUPERINTENDENT Active ZITHROMAX Z-SANJANA 250 MG ORAL TABLET Take 2 tablets toda y and 1 each day till gone AZITHROMYCIN 35760380193 No Longer Active Ashley Yokum DRILLING AND PRODUCTION SUPERINTENDENT Active POLYTRIM 69335-0.1 UNIT/ML-% OPHTHALMIC SOLUTION 1 gtt to affected eye q3h x 7 days POLYMYXIN B-TRIMETHOPRIM 89895021244 No Longer Active Ashley Yokum DRILLING AND PRODUCTION SUPERINTENDENT Active IBUPROFEN 200 MG ORAL TABLET Take 3 tablets every 6hrs 201 09/17/15 IBUPROFEN 29253768798 No Longer Active Ashley Yokum DRILLING AND PRODUCTION SUPERINTENDENT Active DIFLUCAN 150 MG ORAL TABLET Take one tablet today and repeat in 72 hours FLUCONAZOLE 01486092764 No Longer Active Derrick cardenas MD Active DIFLUCAN 150 MG ORAL TABLET 1 by mouth for yeast 03/03 FLUCONAZOLE 13625089621 No Longer Active Ashley Yokum DRILLING AND PRODUCTION SUPERINTENDENT Active AUGMENTIN 875-125 MG ORAL TABLET Take one tablet twice a day with food AMOXICILLIN-POT CLAVULANATE 00957231861 No Longer Act rancho Ashley Yokum DRILLING AND PRODUCTION SUPERINTENDENT Active CALCIUM 600 + D 600-200 MG-UNIT ORAL TABLET Take one daily CALCIUM CARB-CHOLECALCIFEROL 29244573068 No Longer Active Ashley Yokum DRILLING AND PRODUCTION SUPERINTENDENT Active FLONASE 50 MCG/ACT NASAL SUSPENSION 1 spray each nostr il twice daily for allergies and runny nose FLUTICASONE PROPIONATE 42752117272 No Longer Active Ashley Yokum DRILLING AND PRODUCTION SUPERINTENDENT Active CLARITIN-D 12 HOUR 5-120 MG ORAL TABLET EXTENDED RELEA SE 12 HOUR Take one tablet BID as needed for allergies LORATADINE-PSEUDOEP HEDRINE 85693585173 No Longer Active Beth Naff POLICE 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 AMOXICILLIN-POT CLAVULANATE 875-125 MG ORAL TABLET 1 pill by mouth twice daily AMOXICILLIN-POT CLAVULANATE 63409703183 No Longer Act rancho Ashley Yokum DRILLING AND PRODUCTION SUPERINTENDENT Active AMOXICILLIN 500 MG ORAL CAPSULE Take 1 capsule by mout h three times a day X 10 days AMOXICILLIN 49418373269 No Longer Active Wayne Denys paul PA Active PROBIOTIC DAILY ORAL CAPSULE Take one daily PROBIO TIC PRODUCT 24771309886 Active Wayne Red PA Active TYLENOL 325 MG ORAL TABLET Take 2 every 6hrs prn A CETAMINOPHEN 89398362648 Active Wayne Red PA Active ACETAMINOPHEN 500 MG ORAL TABLET prn RICH TAMINOPHEN 20596965871 No Longer Active Wayne Harms PA Active CLARITIN-D 12 HOUR 5-120 MG ORAL TABLET EXTENDED RELEA SE 12 HOUR Take one tablet bid LORATADINE-PSEUDOEPHEDRINE 83637139878 No Longe r Active Wayne Harms PA Active MOBIC 15 MG ORAL TABLET 1 tablet by mouth daily in am with PPI 2 MELOXICAM 92296566022 No Longer Active Wayne Harms PA Acti ve HYDROCORTISONE 2.5 % EXTERNAL CREAM Apply three times a day to affected area HYDROCORTISONE 30267234519 No Longer Active Wayne Harms PA Active VITAMIN D3 1000 UNIT ORAL TABLET Take two daily CHOLECALCIFEROL 84122020880 No Longer Active Wayne Harms PA Active PROBIOTIC ORAL CAPSULE Take one daily PROBIOTIC PRODUCT 68898411794 No Longer Active Wayne Harms PA Active GREEN TEA SLIM ORAL TABLET Take one daily [facility] NATURAL PRODUCTS 34808480031 No Longer Active Wayne Harms PA Active BENZONATATE 200 MG ORAL CAPSULE Take one capsule three times a d ay BENZONATATE 84133665872 No Longer Active Wayne Harms PA Act rancho ZITHROMAX Z-SANJANA 250 MG ORAL TABLET 2 today, then 1 daily for 4 d ays AZITHROMYCIN 33322073726 No Longer Active Wayne Harms PA Ac tive ZITHROMAX 250 MG ORAL TABLET 2 po today, then 1 po q days 2-5 20 31/03/18 AZITHROMYCIN 62643164600 No Longer Active Beth Turner POLICE 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 OMEPRAZOLE 20 MG ORAL CAPSULE DELAYED RELEASE [address] [facility] daily OMEPRAZOLE 42482017471 Active Supriya Huston RMA Active ZITHROMAX Z-SANJANA 250 MG ORAL TABLET 2x1day,5n3rrjn 2014 AZITHROMYCIN 39063671004 No Longer Active Wayne Harms PA Active FISH OIL 1200 MG ORAL CAPSULE One daily prn OME GA-3 FATTY ACIDS 73336103390 No Longer Active Wayne Harms PA Active CEPHALEXIN 250 MG ORAL CAPSULE Take one tablet qid 201 05/25/29 CEPHALEXIN 62748137431 No Longer Active Wayne Harms PA Active VITAMIN D3 1000 UNIT ORAL TABLET 1qd CHOLEC ALCIFEROL 45847324168 No Longer Active Wayne Harms PA Active B-12 2000 MCG ORAL TABLET 1qd CYANOCOBALAMI N 04600976164 No Longer Active Wayne Harms PA Active ACIPHEX 20 MG ORAL TABLET DELAYED RELEASE 1qd 10/28 RABEPRAZOLE SODIUM 01396866436 No Longer Active Wayne Harms PA Active HYDROCORTISONE 2.5 % EXTERNAL CREAM apply 3-4 times a day to affected area HYDROCORTISONE 59792076071 No Longer Active Wayne Harms PA Active MUCINEX 600 MG ORAL TABLET EXTENDED RELEASE 12 HOUR 2qd GUAIFENESIN 35467771997 No Longer Active Wayne Harms PA Active TUSSIONEX PENNKINETIC ER 10-8 MG/5ML ORAL SUSPENSION E XTENDED RELEASE 5ml po q12hr PRN Cough HYDROCOD POLST-CHLORPHEN POLST 5 2120765355 No Longer Active Wayne Harms PA Active ZITHROMAX 250 MG ORAL TABLET 2 po today, then 1 po q days 2-5 20 26/06/21 AZITHROMYCIN 22657192286 No Longer Active Wayne Harms PA Ac tive CLARITIN 10 MG ORAL TABLET one tablet daily THEO ATADINE 02548227309 No Longer Active Wayne Harms PA Active FLAGYL 500 MG ORAL TABLET 1 tablet by mouth three times daily 20 28/05/03 METRONIDAZOLE 15463636736 No Longer Active Wayne Harms PA A ctive CHERATUSSIN AC 100-10 MG/5ML ORAL SYRUP one teaspoon qid. 9 GUAIFENESIN-CODEINE 19314627182 No Longer Active Wayne Harms PA Act rancho VITAMIN D 1000 UNIT ORAL TABLET 1qd CHOLECA LCIFEROL 83856585357 No Longer Active Wayne Harms PA Active CYMBALTA 60 MG ORAL CAPSULE DELAYED RELEASE PARTICLES 1 cap by mouth daily DULOXETINE HCL 43928766400 No Longer Active Wayne Harms PA Active AMOXICILLIN 500 MG ORAL CAPSULE 2 caps tid for 10days AMOXICILLIN 66558323707 No Longer Active Wayne Harms PA Active CALCIUM + D 600-200 MG-UNIT TABS Take one by mouth daily CALCIUM CARBONATE-VITAMIN D 85277802117 No Longer Active Wayne Harms PA Active CENTRUM SILVER ADULT 50+ ORAL TABLET 1qd 2013 MULTIPLE VITAMINS-MINERALS 74163763798 No Longer Active Wayne Harms PA Active VENLAFAXINE HCL 75 MG ORAL TABLET 1tid VE NLAFAXINE HCL 89488060795 No Longer Active Wayne Harms PA Active CLARITIN 10 MG ORAL TABLET 1 tablet by mouth daily as needed for allergies LORATADINE 36616429855 No Longer Active Wayne Harms PA Acti ve HYDROCORTISONE 2.5 % EXTERNAL CREAM Apply four times a day to af fected area HYDROCORTISONE 65497982056 No Longer Active Wayne Harms PA Active ZITHROMAX 250 MG ORAL TABLET 2 po today, then 1 po q days 2-5 20 26/02/30 AZITHROMYCIN 06604089187 No Longer Active Wayne Harms PA Ac tive ZITHROMAX 250 MG ORAL TABLET 2 po today, then 1 po q days 2-5 20 27/02/16 AZITHROMYCIN 40646217938 No Longer Active Wayne Harms PA Ac tive CYMBALTA 30 MG ORAL CAPSULE DELAYED RELEASE PARTICLES 3 caps daily DULOXETINE HCL 66214810076 No Longer Active Wayne Harms PA Active CYMBALTA 60 MG ORAL CAPSULE DELAYED RELEASE PARTICLES one tablet daily, takes 30mg. with 60mg. to make 90 mg. DULOXETINE HCL 88395047317 No Longer Active Wayne Harms PA Active CYMBALTA 30 MG ORAL CAPSULE DELAYED RELEASE PARTICLES 1 daily wi th 60mg DULOXETINE HCL 31177231744 No Longer Active Wayne Harms PA Active ZITHROMAX 250 MG ORAL TABLET 2 po today, then 1 po q days 2-5 20 26/12/21 AZITHROMYCIN 41718525848 No Longer Active Ismael YANG Active PREDNISONE 20 MG ORAL TABLET 3tab x 2days,2tab x 2days ,1tab x 2days,1/2tab x 2days PREDNISONE 29244702267 No Longer Active Wayne Vera jarvis PA Active PREMARIN 0.625 MG ORAL TABLET Take one by mouth daily ESTROGENS CONJUGATED 73426475845 No Longer Active Wayne Harms PA Active ZITHROMAX 250 MG ORAL TABLET 2 po today, then 1 po q days 2-5 20 26/06/19 AZITHROMYCIN 10346143504 No Longer Active Nereyda Lucke Activ e OMEGA-3 1000 MG ORAL CAPSULE 2qd OMEGA-3 FA TTY ACIDS 01499475325 No Longer Active Wayne Harms PA Active BENADRYL ITCH STOPPING 1-0.1 % EXTERNAL CREAM prn DIPHENHYDRAMINE- ZINC ACETATE 37101133921 No Longer Active Wayne Harms PA Active LOTRISONE 1-0.05 % EXTERNAL CREAM Apply bid CLOTRIMAZOLE-BETAMETHASONE 61021092148 No Longer Active Wayne Harms PA Active ZITHROMAX Z-SANJANA 250 MG ORAL TABLET take as directed 26/04/19 AZITHROMYCIN 73453771386 No Longer Active Wayne Harms PA Active NYSTATIN 314220 UNIT/GM EXTERNAL POWDER Apply to affected areas BID NYSTATIN 98928342127 No Longer Active Wayne Harms PA Acti ve BENADRYL 25 MG ORAL CAPSULE prn DIPHENHYDRAMINE HCL 06010097947 Active Wayne Harms PA Active LOTRISONE 1-0.05 % EXTERNAL CREAM apply twice a day 20 25/02/17 CLOTRIMAZOLE-BETAMETHASONE 11933438011 No Longer Active Wayne Harms PA Active HYDROCODONE-ACETAMINOPHEN 5-325 MG ORAL TABLET 1-2 every 4hr s prn pain HYDROCODONE-ACETAMINOPHEN 61211077235 No Longer Activ e Wayne Harms PA Active VICODIN 5-300 MG ORAL TABLET 1-2 tabs every 6hrs as needed for p ain HYDROCODONE-ACETAMINOPHEN 99752961563 No Longer Active Wayne Harms PA Active BENADRYL 25 MG ORAL CAPSULE 1prn DIPHENHYDRA MINE HCL 81762392415 No Longer Active Jillina Frazell DRILLING AND PRODUCTION SUPERINTENDENT Active ROBITUSSIN DM 100-10 MG/5ML ORAL SYRUP 2 teaspoons four times a day DEXTROMETHORPHAN-GUAIFENESIN 10247843800 No Longer Active Jillina Frazell DRILLING AND PRODUCTION SUPERINTENDENT Active ACIPHEX 20 MG ORAL TABLET DELAYED RELEASE Take one by mouth daily RABEPRAZOLE SODIUM 30816696401 No Longer Active Jillina Frazell DRILLING AND PRODUCTION SUPERINTENDENT Active TUMS 500 MG ORAL TABLET CHEWABLE prn SADIQ CIUM CARBONATE ANTACID 92040687895 No Longer Active Jillina Frazell DRILLING AND PRODUCTION SUPERINTENDENT Active PEPTO-BISMOL 524 MG/30ML ORAL SUSPENSION prn 02/26 BISMUTH SUBSALICYLATE 00566762639 No Longer Active Jillina Frazell DRILLING AND PRODUCTION SUPERINTENDENT Active BACTRIM DS 800-160 MG ORAL TABLET 1bid SULFAMETHOXAZOLE-TRIMETHOPRIM 84692007289 No Longer Active Beth Naff POLICE 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 GAVISCON EXTRA RELIEF FORMULA CHEW prn A LUM HYDROXIDE-MAG CARBONATE CHEW 83671369594 Active Wayne Harms PA Active DIFLUCAN 150 MG ORAL TABLET 1stat FLUCONAZOL E 99186421612 No Longer Active Wayne Harms PA Active AUGMENTIN 875-125 MG ORAL TABLET 1 tab by mouth twice daily with food AMOXICILLIN-POT CLAVULANATE 56058751040 No Longer Act rancho Wayne Harms PA Active FLUTICASONE PROPIONATE 50 MCG/ACT NASAL SUSPENSION 1 t o 2 sprays each nostril twice a day FLUTICASONE PROPIONATE 96381436735 No Lo nger Active Wayne Harms PA Active HYDROCORTISONE 2.5 % EXTERNAL CREAM apply 2-4 times a day, a s directed, prn HYDROCORTISONE 43493977660 No Longer Active Wayne Harms PA Active ZITHROMAX Z-SANJANA 250 MG ORAL TABLET A ZITHROMYCIN 16844714110 No Longer Active Wayne Harms PA Active SIMVASTATIN 40 MG ORAL TABLET one tablet daily SIMVASTATIN 16759155896 No Longer Active Misty Yoo LPN Active LOVASTATIN 40 MG ORAL TABLET Take one by mouth daily 12/11 LOVASTATIN 35424453356 No Longer Active Misty Yoo POLICE 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 PREDNISONE 20 MG ORAL TABLET 2 PO qd x 2d, 1 PO qd x 2d, 1/2 PO qd x 2d PREDNISONE 62590311134 No Longer Active Ismael silva PA Active ZITHROMAX 250 MG ORAL TABLET two tablets now and one daily x 4 d ays AZITHROMYCIN 85191992283 No Longer Active Misty Yoo POLICE 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 ZOLPIDEM TARTRATE 10MG TABS (ZOLPIDEM TARTRATE) 1 at bedtime as needed Active Supriya Betzaida RMA Active CLOBETASOL PROPIONATE 0.05 % EXTERNAL CREAM apply as directed CLOBETASOL PROPIONATE [id number] No Longer Active Wayne Harms PA A ctive CYMBALTA 30 MG ORAL CAPSULE DELAYED RELEASE PARTICLES takes 90mg qod alt with 60mg DULOXETINE HCL [id number] No Longer Active Wayne Harm s PA Active ZITHROMAX 250 MG ORAL TABLET 2 po today, then 1 po q days 2-5 20 12/24/14 AZITHROMYCIN [id number] No Longer Active Wayne Harms PA Ac tive TRIAMCINOLONE ACETONIDE 0.1 % EXTERNAL CREAM apply qid TRIAMCINOLONE ACETONIDE 26262130493 No Longer Active Wayne Harms PA Active ALPRAZOLAM 0.25 MG ORAL TABLET 1 tab three times a day 201 02/23/14 ALPRAZOLAM 50695739417 No Longer Active Wayne Harms PA Active ZOLPIDEM TARTRATE 5 MG ORAL TABLET 1 at bedtime as needed ZOLPIDEM TARTRATE 63012451119 No Longer Active Beth Turner [employer] 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 ALPRAZOLAM 0.25 MG ORAL TABLET 1 tab three times a day ALPRAZOLAM 0.25 MG ORAL TABLET 940986 ALPRAZOLAM Inactive TRIAMCINOLONE ACETONIDE 0.1 % EXTERNAL CREAM apply qid TRIAMCINOLONE ACETONIDE 0.1 % EXTERNAL CREAM 8245786 TRIAMCINOLONE A CETONIDE Inactive CYMBALTA 30 MG ORAL CAPSULE DELAYED RELEASE PARTICLES takes 90mg qod alt with 60mg CYMBALTA 30 MG ORAL CAPSULE DELAYED RELEA SE PARTICLES 065028 DULOXETINE HCL Inactive CLOBETASOL PROPIONATE 0.05 % EXTERNAL CREAM apply as directed CLOBETASOL PROPIONATE 0.05 % EXTERNAL CREAM 850412 CLOBETASOL PROPI KELVIN Inactive LOVASTATIN 40 MG ORAL TABLET Take one by mouth daily 2 LOVASTATIN 40 MG ORAL TABLET 391151 LOVASTATIN Inactive ZITHROMAX Z-SANJANA 250 MG ORAL TABLET 03/03 ZITHROMAX Z-SANJANA 250 MG ORAL TABLET 419533 AZITHROMYCIN Inactive HYDROCORTISONE 2.5 % EXTERNAL CREAM apply 2-4 times a day, a s directed, prn HYDROCORTISONE 2.5 % EXTERNAL CREAM 454431 HYDRO CORTISONE Inactive FLUTICASONE PROPIONATE 50 MCG/ACT NASAL SUSPENSION 1 t o 2 sprays each nostril twice a day FLUTICASONE PROPIONA TE 50 MCG/ACT NASAL SUSPENSION 9778317 FLUTICASONE PROPIONATE Inactive AUGMENTIN 875-125 MG ORAL TABLET 1 tab by mouth twice daily with food AUGMENTIN 875-125 MG ORAL TABLET AMOXICIL BLOSSOM-POT CLAVULANATE Inactive DIFLUCAN 150 MG ORAL TABLET 1stat DIFLUCAN 150 MG ORAL TABLET 218617 FLUCONAZOLE Inactive PEPTO-BISMOL 524 MG/30ML ORAL SUSPENSION prn PEPTO-BISMOL 524 MG/30ML ORAL SUSPENSION BISMUTH SUBSALICYLATE Inactive TUMS 500 MG ORAL TABLET CHEWABLE prn TUMS 500 MG ORAL TABLET CHEWABLE 254755 CALCIUM CARBONATE ANTACID Inactive ACIPHEX 20 MG ORAL TABLET DELAYED RELEASE Take one by mouth daily ACIPHEX 20 MG ORAL TABLET DELAYED RELEASE 887156 RABEPRAZOLE SODIUM Inactive ROBITUSSIN DM 100-10 MG/5ML [...] pain HYDROCODONE-ACETAMINOPHEN 5-325 MG ORAL TABLET 8 84861 HYDROCODONE-ACETAMINOPHEN Inactive LOTRISONE 1-0.05 % EXTERNAL CREAM apply twice a day 20 25/02/17 LOTRISONE 1- 0.05 % EXTERNAL CREAM CLOTRIMAZOLE-BETAMETHASONE Inactive NYSTATIN 125333 UNIT/GM EXTERNAL POWDER Apply to affected areas BID NYSTATIN 596567 UNIT/GM EXTERNAL POWDER 164813 NYSTATIN Inactive ZITHROMAX Z-SANJANA 250 MG ORAL TABLET take as directed 20 26/04/19 ZITHROMAX Z-SANJANA 250 MG ORAL TABLET 824186 AZITHROMYCIN Inact [place] LOTRISONE 1-0.05 % EXTERNAL CREAM Apply bid LOTRISONE 1- 0.05 % EXTERNAL CREAM CLOTRIMAZOLE-BETAMETHASONE Inactive BENADRYL ITCH STOPPING 1-0.1 % EXTERNAL CREAM prn BENADRYL ITCH STOPPING 1-0.1 % EXTERNAL CREAM DIPHENHYDRAMINE-ZINC ACETATE Inactive OMEGA-3 1000 MG ORAL CAPSULE 2qd OMEGA-3 1000 MG ORAL CAPSULE 908783 OMEGA-3 FATTY ACIDS Inactive ZITHROMAX 250 MG ORAL TABLET 2 po today, then 1 po q days 2-5 20 26/06/19 ZITHROMAX 250 MG ORAL TABLET 214108 AZITHROMYCIN [place] ctive PREMARIN 0.625 MG ORAL TABLET Take one by mouth daily PREMARIN 0.625 MG ORAL TABLET ESTROGENS CONJUGATED Inactive PREDNISONE 20 MG ORAL TABLET 3tab x 2days,2tab x 2days ,1tab x 2days,1/2tab x 2days PREDNISONE 20 MG ORAL TABLET 082350 PREDNIS ONE Inactive CYMBALTA 30 MG ORAL CAPSULE DELAYED RELEASE PARTICLES 1 daily wi th 60mg CYMBALTA 30 MG ORAL CAPSULE DELAYED RELEASE PARTICLES 976013 DULOXETINE HCL Inactive CYMBALTA 60 MG ORAL CAPSULE DELAYED RELEASE PARTICLES one tablet daily, takes 30mg. with 60mg. to make 90 mg. CYMBALTA 60 MG ORAL CAPSULE DELAYED RELEASE PARTICLES 046674 DULOXETINE HCL Inacti ve CYMBALTA 30 MG ORAL CAPSULE DELAYED RELEASE PARTICLES 3 caps daily CYMBALTA 30 MG ORAL CAPSULE DELAYED RELEASE PARTICLES 246084 DULOXE ROSANNE HCL Inactive HYDROCORTISONE 2.5 % EXTERNAL CREAM Apply four times a day to af fected area HYDROCORTISONE 2.5 % EXTERNAL CREAM 294639 HYDROCORTISO NE Inactive CLARITIN 10 MG ORAL TABLET 1 tablet by mouth daily as needed for allergies CLARITIN 10 MG ORAL TABLET 099788 LORATADINE Inact [place] VENLAFAXINE HCL 75 MG ORAL TABLET 1tid VENLAFAXINE HCL 75 MG ORAL TABLET 627294 VENLAFAXINE HCL Inactive CENTRUM SILVER ADULT 50+ ORAL TABLET 1qd 2013 CENTRUM SILVER ADULT 50+ ORAL TABLET MULTIPLE VITAMINS-MINERALS Inactive CALCIUM + D 600-200 MG-UNIT TABS Take one by mouth daily CALCIUM + D 600-200 MG-UNIT TABS CALCIUM CARBONATE-VITAMIN D Inactive AMOXICILLIN 500 MG ORAL CAPSULE 2 caps tid for 10days AMOXICILLIN 500 MG ORAL CAPSULE 523802 AMOXICILLIN Inactive CYMBALTA 60 MG ORAL CAPSULE DELAYED RELEASE PARTICLES 1 cap by mouth daily CYMBALTA 60 MG ORAL CAPSULE DELAYED RELE ASE PARTICLES 732174 DULOXETINE HCL Inactive VITAMIN D 1000 UNIT ORAL TABLET 1qd 4 VITAMIN D 1000 UNIT ORAL TABLET CHOLECALCIFEROL Inactive CHERATUSSIN AC 100-10 MG/5ML ORAL SYRUP one teaspoon qid. 9 CHERATUSSIN AC 100-10 MG/5ML ORAL SYRUP GUAIFENESIN-CODEINE Inactive FLAGYL 500 MG ORAL TABLET 1 tablet by mouth three times daily 20 28/05/03 FLAGYL 500 MG ORAL TABLET 416666 METRONIDAZOLE Inacti ve CLARITIN 10 MG ORAL TABLET one tablet daily CLARITIN 10 MG ORAL TABLET 336211 LORATADINE Inactive TUSSIONEX PENNKINETIC ER 10-8 MG/5ML [...] affected area HYDROCORTISONE 2.5 % EXTERNAL CREAM 979362 HYDRO CORTISONE Inactive ACIPHEX 20 MG ORAL TABLET DELAYED RELEASE 1qd ACIPHEX 20 MG ORAL TABLET DELAYED RELEASE 025654 RABEPRAZOLE SODIUM Inactive B-12 2000 MCG ORAL TABLET 1qd B-12 2000 MCG ORAL TABLET CYANOCOBALAMIN Inactive VITAMIN D3 1000 UNIT ORAL TABLET 1qd VITAMIN D3 1000 UNIT ORAL TABLET CHOLECALCIFEROL Inactive CEPHALEXIN 250 MG ORAL CAPSULE Take one tablet qid 201 05/25/29 CEPHALEXIN 250 MG ORAL CAPSULE 134156 CEPHALEXIN Inactive FISH OIL 1200 MG ORAL CAPSULE One daily prn FISH OIL 1200 MG ORAL CAPSULE OMEGA-3 FATTY ACIDS Inactive ZITHROMAX Z-SANJANA 250 MG ORAL TABLET 2x1day,1q4jcdu 2014 ZITHROMAX Z-SANJANA 250 MG ORAL TABLET 384105 AZITHROMYCIN [place]act [place] BENZONATATE 200 MG ORAL CAPSULE Take one capsule three times a d ay BENZONATATE 200 MG ORAL CAPSULE 291239 BENZONATATE Inactive GREEN TEA SLIM ORAL TABLET Take one daily GREEN TEA SLIM ORAL TABLET MISC NATURAL PRODUCTS Inactive PROBIOTIC ORAL CAPSULE Take one daily PROBIOTIC ORAL CAPSULE 1235375 PROBIOTIC PRODUCT Inactive VITAMIN D3 1000 UNIT ORAL TABLET Take two daily 05/05 VITAMIN D3 1000 UNIT ORAL TABLET CHOLECALCIFEROL Inactive HYDROCORTISONE 2.5 % EXTERNAL CREAM Apply three times a day to affected area HYDROCORTISONE 2.5 % EXTERNAL CREAM 721447 HYDRO CORTISONE Inactive MOBIC 15 MG ORAL TABLET 1 tablet by mouth daily in am with PPI 2 015/04/10 MOBIC 15 MG ORAL TABLET 000966 MELOXICAM Inactive CLARITIN-D 12 HOUR 5-120 MG ORAL TABLET EXTENDED RELEA SE 12 HOUR Take one tablet bid CLARITIN-D 12 HOUR 5 -120 MG ORAL TABLET EXTENDED RELEASE 12 HOUR LORATADINE-PSEUDOEPHEDRINE Inactive ACETAMINOPHEN 500 MG ORAL TABLET prn ACETAMINOPHEN 500 MG ORAL TABLET 156863 ACETAMINOPHEN Inactive CLARITIN-D 12 HOUR 5-120 MG [...] yeast 03/03 DIFLUCAN 150 MG ORAL TABLET 345195 FLUCONAZOLE Inactive DIFLUCAN 150 MG ORAL TABLET Take one tablet today and repeat in 72 hours DIFLUCAN 150 MG ORAL TABLET 221429 FLUCONAZOLE Inactive IBUPROFEN 200 MG ORAL TABLET Take 3 tablets every 6hrs IBUPROFEN 200 MG ORAL TABLET 371729 IBUPROFEN Inactive ZITHROMAX Z-SANJANA 250 MG ORAL TABLET Take 2 tablets toda y and 1 each day till gone ZITHROMAX Z-SANJANA 250 MG ORAL TABLET 812694 A ZITHROMYCIN Inactive PROAIR HFA 108 (90 [...] bowels 3 REGLAN 10 MG ORAL TABLET 802397 METOCLOPRAMIDE HCL Inactive PREDNISONE 20 MG ORAL TABLET Take 2 tablets by mouth d aily for 2 days then 1 tablet daily for 2 days. PREDNISONE 20 MG ORAL T ABLET 214067 PREDNISONE Inactive ZYRTEC ALLERGY 10 MG ORAL CAPSULE 1qd ZYRTEC ALLERGY 10 MG ORAL CAPSULE CETIRIZINE HCL Inactive ZITHROMAX 250 MG ORAL TABLET 2 po today, then 1 po q days 2-5 20 12/24/14 ZITHROMAX 250 MG ORAL TABLET 374697 AZITHROMYCIN [place] ctive ZITHROMAX 250 MG ORAL TABLET two tablets now and one daily x 4 d ays ZITHROMAX 250 MG ORAL TABLET 334048 AZITHROMYCIN [place] ctive PREDNISONE 20 MG ORAL TABLET 2 PO qd x 2d, 1 PO qd x 2d, 1/2 PO qd x 2d PREDNISONE 20 MG ORAL TABLET 733116 PREDNISONE Inactive SIMVASTATIN 40 MG ORAL TABLET one tablet daily SIMVASTATIN 40 MG ORAL TABLET 020951 SIMVASTATIN Inactive BACTRIM DS 800-160 MG ORAL TABLET 1bid BACTRIM DS 800-160 MG ORAL TABLET 052009 SULFAMETHOXAZOLE-TRIMETHOPRIM Inactive ZITHROMAX 250 MG ORAL TABLET 2 po today, then 1 po q days 2-5 20 26/12/21 ZITHROMAX 250 MG ORAL TABLET 854150 AZITHROMYCIN [place] ctive ZITHROMAX 250 MG ORAL TABLET 2 po today, then 1 po q days 2-5 20 27/02/16 ZITHROMAX 250 MG ORAL TABLET 379446 AZITHROMYCIN [place] ctive ZITHROMAX 250 MG ORAL TABLET 2 po today, then 1 po q days 2-5 20 26/02/30 ZITHROMAX 250 MG ORAL TABLET 065928 AZITHROMYCIN [place] ctive ZITHROMAX 250 MG ORAL TABLET 2 po today, then 1 po q days 2-5 20 26/06/21 ZITHROMAX 250 MG ORAL TABLET 546995 AZITHROMYCIN [place] ctive ZITHROMAX 250 MG ORAL TABLET 2 po today, then 1 po q days 2-5 20 31/03/18 ZITHROMAX 250 MG ORAL TABLET 648816 AZITHROMYCIN [place] ctive ZITHROMAX Z-SANJANA 250 MG ORAL TABLET 2 today, then 1 daily for 4 d ays ZITHROMAX Z-SANJANA 250 MG ORAL TABLET 039514 AZITHROMYCIN Inactive AMOXICILLIN 500 MG ORAL CAPSULE Take 1 capsule by mout h three times a day X 10 days AMOXICILLIN 500 MG ORAL CAPSULE 966117 AMOX ICILLIN Inactive AMOXICILLIN-POT CLAVULANATE 875-125 MG ORAL TABLET 1 pill by mouth twice daily AMOXICILLIN-POT CLAVULANATE 875-125 MG ORAL TABL ET 313228 AMOXICILLIN-POT CLAVULANATE Inactive AUGMENTIN 875-125 MG ORAL TABLET Take one tablet twice a day with food AUGMENTIN 875-125 MG ORAL TABLET AMOXICILLIN-POT CLAVULANATE Inactive POLYTRIM 30018-0.1 UNIT/ML-% OPHTHALMIC SOLUTION 1 gtt to affected eye q3h x 7 days POLYTRIM 63396-2.1 UNIT/ML-% OPH THALMIC SOLUTION 020533 POLYMYXIN B-TRIMETHOPRIM Inactive MACROBID 100 MG ORAL CAPSULE 1 cap by mouth twice daily MACROBID 100 MG ORAL CAPSULE 1146237 NITROFURANTOIN MONOHYD MACRO In active Advance Directives [...] Fluarix, Agriflu(>= 18 yo)) Fluzone (>=3 yrs.) [[id number]] Seasonal influenza vaccine, injectable, containing preservative, for > 3 years old (Afluria, FluLaval, Fluzone, Fluvirin, Fluarix, Agriflu(>= 18 yo)) Fluzone (>3 yrs.) [[id number]] Seasonal influenza vaccine, injectable, containing preservative, for > 3 years old (Afluria, FluLaval, Fluzone, Fluvirin, Fluarix, Agriflu(>= 18 yo)) Fluarix (>3 yrs.) [[id number]] Diagnostic Results Date Name Value Unit Range Description Lab Report: CBC, Comp. Metabolic Panel, Lipid Panel, Magnesium - Chemistry sodium, serum 138 mmol/L 111-042 9868/09/02 carbon dioxide, venous blood 28.0 mmol/L 21.0-32 [...] 0.20 mg/dL 0.00-1.00 cholesterol, serum 228 mg/dL 565-210 5612/09/02 triglyceride, serum, fasting 236 mg/dL 30-200 HDL [...] 0.36-3.74 Encounters Code Encounter Date Provider Facility CPT-28095 [id number] Vst-Est Level III 17:07:11 CDT Jenny Yang [facility] [place] CPT-71168 [id number] Vst-Est Level III 17:51:44 [employer] [place] [facility] CPT-69897 Level 3 Est. Patient 11:09:39 CDT Viviana Rubio [facility] CPT-17644 [id number] Vst-Est Level IV 09:14:31 CDT Conchis Yang [facility] [place] CPT-66981 [id number] Vst-Est Level III 22:05:50 CDT Jenny Yang [facility] [place] CPT-10678 Level 3 Est. Patient 15:00:02 [employer] Will jarquin [facility] CPT-72464 Level 2 Est. Patient 13:46:20 CDT Ashley peacock [facility] [place] CPT-77250 Level 2 Est. Patient 13:45:36 CDT Ashley Meraz [facility] [place] CPT-91793 Level 3 Est. Patient 15:52:07 CDT Ashley Meraz [facility] [place] CPT-66720 Level 3 Est. Patient 08:20:37 CDT Ashley Meraz [facility] [place] CPT-57958 Level 3 Est. Patient 15:06:41 CDT Derrick donaldson MD [facility] CPT-22386 Level 3 Est. Patient 11:13:21 [employer] Derrick donaldson MD [facility] CPT-63723 Level 3 Est. Patient 12:54:25 [employer] Ashley Meraz [facility] [place] CPT-89583 Level 3 Est. Patient 23:34:49 [employer] Ashley Meraz [facility] [place] CPT-06523 Level 3 Est. Patient 16:37:09 [employer] Ashley Meraz [facility] [place] CPT-29991 Level 3 Est. Patient 11:59:30 [employer] Ashley Meraz [facility] [place] CPT-09106 Level 4 Est. Patient 07:40:13 CDT Wayne delatorre [facility] [place] CPT-70487 Level 4 Est. Patient 08:06:18 CDT Wayne delatorre [facility] [place] [facility] CPT-85072 Level 3 Est. Patient 11:14:45 CDT Wayne delatorre [facility] [place] CPT-90408 Level 3 Est. Patient 10:14:55 CDT Wayne delatorre [facility] [place] CPT-44610 Level 4 Est. Patient 15:23:47 CDT Wayne delatorre [facility] CPT-25332 Level 3 Est. Patient 07:50:51 [employer] Wayne delatorre [facility] [place] CPT-60846 Level 3 Est. Patient 14:47:52 CDT Wayne delatorre PA [facility] CPT-61251 Level 3 Est. Patient 11:28:46 CDT Wayne delatorre PA [facility] CPT-80575 Level 4 Est. Patient 14:48:43 CDT Wayne delatorre [facility] [place] CPT-82121 Level 3 Est. Patient 14:10:18 [employer] Wayne delatorre PA [facility] CPT-87262 Level 3 Est. Patient 16:44:33 [employer] Wayne delatorre [facility] [place] CPT-49810 Level 4 Est. Patient 08:22:34 [employer] Wayne delatorre [facility] [place] CPT-45818 Level 4 Est. Patient 07:10:30 CDT Wayne delatorre [facility] [place] CPT-79590 Level 3 Est. Patient 14:50:20 [employer] Wayne delatorre PA [facility] CPT-76735 Level 3 Est. Patient 09:46:08 [employer] Zuleika cha APRN [facility] CPT-31879 Level 4 Est. Patient 07:56:24 [employer] Wayne delatorre [facility] [place] CPT-15574 Level 3 Est. Patient 12:13:53 CDT Ismael Denton [facility] [place] CPT-97451 Level 4 Est. Patient 12:28:51 [employer] Wayne delatorre [facility] [place] CPT-91763 Level 3 Est. Patient 15:23:42 [employer] Wayne YANG [facility] CPT-29039 Level 3 Est. Patient 06:34:33 [employer] Wayne YANG [facility] Procedures Code Procedure Name Date Entry Date Standard Desc ription CPT-12792 Allergy Admin 2 16:51:42 CDT CPT-83313 Allergy Admin 2 16:26:50 CDT CPT-05360 Allergy Admin 2 17:02:53 CDT CPT-28796 Allergy Admin 2 16:32:35 CDT CPT-67443 Allergy Admin 2 16:26:27 CDT CPT-J3420 Vitamin B12 1000mcg (Cyanocobalamin) 16:32:13 CDT CPT-21345 Abx/Therapy Injection 16:32:13 CDT CPT-42944 Allergy Admin 2 16:32:12 CDT CPT-15357 Allergy Admin 2 16:05:03 CDT CPT-04370 Allergy Admin 2 16:35:15 CDT CPT-49856 Allergy Admin 2 16:20:41 CDT CPT-89896 Allergy Admin 2 11:25:21 CDT CPT-33031 Allergy Admin 2 15:46:12 CDT CPT-LL2016P (4274F) Influenza immunization administe red or previously received 17:51:44 [employer] CPT-35903 Spec Collection and Handling Fee 10:45:[address] [id number]-[id number] (4274F) Influenza immunization administe red or previously received 10:20:17 CDT CPT-04197 Prv Med Est Pt 40-64yrs 16:26:57 CDT CPT-73241 Venipuncture Draw Fee 11:08:31 CDT CPT-59678 Magnesium - LAB USE ONLY 11:08:31 CDT 10/15 CPT-67938 TSH - LAB USE ONLY 11:08:31 CDT CPT-84196 Lipid - LAB USE ONLY 11:08:30 CDT 2 CPT-13103 CMP - LAB USE ONLY 11:08:30 CDT CPT-41701 CBC - LAB USE ONLY 11:08:30 CDT CPT-14989 Spec Collection and Handling Fee 16:14:51 C DT CPT-86058 UA w micro - LAB USE ONLY 16:14:51 CDT 2018 CPT-51971 Prv Med Est Pt 40-64yrs 08:34:49 CDT 10/01 CPT-02243 Sed Rate - LAB USE ONLY 10:50:49 CDT 10/02 CPT-58498 TSH - LAB USE ONLY 10:50:49 CDT CPT-51093 Lipid - LAB USE ONLY 10:50:49 CDT 0 CPT-42836 Magnesium - LAB USE ONLY 10:50:49 CDT 10/02 CPT-57501 CMP - LAB USE ONLY 10:50:49 CDT CPT-62534 CBC - LAB USE ONLY 10:50:49 CDT CPT-60688 Venipuncture Draw Fee 10:50:49 CDT CPT-85658 IV Hydration < or = 1 hr 22:05:50 CDT 04/16 CPT-J7030 Normal Saline 1000 mL 22:05:50 CDT CPT-75060 Abx/Therapy Injection 16:31:51 [employer] CPT-J2950 Phenergan 25 mg 16:31:51 [employer] CPT-86408 Abx/Therapy Injection 16:39:40 CDT CPT-50875 First Vx - Ix admin via ID I M or jet injects without counseling by physician 16:39:39 CDT CPT-05562 Prv Med Est Pt 40-64yrs 16:33:10 CDT 11/10 CPT-JTINJ Asp/Joint Injection 16:13:36 CDT CPT-12894 Allergy Admin 2 16:54:52 CDT CPT-49846 Allergy Admin 2 16:46:15 CDT CPT-66111 Allergy Admin 2 11:29:09 CDT CPT-27182 Allergy Admin 2 17:05:15 CDT CPT-01577 Allergy Admin 2 12:31:51 CDT CPT-78783 Allergy Admin 2 15:40:56 CDT CPT-08224 CBC - LAB USE ONLY 09:49:24 CDT CPT-00837 CMP - LAB USE ONLY 09:49:24 CDT CPT-00622 Lipid - LAB USE ONLY 09:49:24 CDT 8 CPT-21835 Venipuncture Draw Fee 09:49:24 CDT CPT-20491 Allergy Admin 2 10:46:11 CDT CPT-JTINJ Asp/Joint Injection 09:52:58 CDT CPT-53360 Skin tag rem 1-15 13:46:20 CDT CPT-61624 Knee, right, 3V - XRAY USE ONLY 13:07:09 CD T CPT-39912 Allergy Admin 2 11:56:38 CDT CPT-75880 Allergy Admin 2 12:00:55 CDT CPT-82220 Allergy Admin 2 16:42:13 CDT CPT-79553 Allergy Admin 2 16:27:55 CDT CPT-22102 Allergy Admin 2 13:24:26 CDT CPT-18335 Allergy Admin 2 17:17:57 [facility] CPT-10115 Allergy Admin 2 16:23:22 [facility] CPT-10189 Allergy Admin 2 16:26:55 [facility] CPT-66103 Allergy Admin 2 16:32:33 [facility] CPT-36208 Allergy Admin 2 17:43:40 [facility] CPT-30193 Allergy Admin 2 16:26:07 [facility] CPT-67685 Allergy Admin 2 12:31:50 [facility] CPT-45692 Allergy Admin 2 16:40:38 [facility] CPT-25546 Allergy Admin 2 17:07:36 T CPT-G0008 Administration of Influenza Virus Vaccine 17:01:01 CDT CPT-34902 First Vx - Ix admin via ID I M or jet injects without counseling by physician 17:01:01 CDT CPT-04117 Allergy Admin 2 12:06:54 CDT CPT-14755 Allergy Admin 2 17:04:46 CDT CPT-57021 Allergy Admin 2 16:34:48 CDT CPT-64886 Allergy Admin 2 17:04:51 CDT CPT-81975 Allergy Admin 2 16:25:14 CDT CPT-76815 Allergy Admin 2 10:52:02 CDT CPT-71543 Allergy Admin 2 11:45:31 CDT CPT-26976 Allergy Admin 2 12:02:20 CDT CPT-87508 Allergy Admin 2 15:47:29 CDT CPT-07618 Allergy Admin 2 13:25:44 CDT CPT-93214 Allergy Admin 2 10:51:13 CDT CPT-99266 CBC - LAB USE ONLY 10:44:39 CDT CPT-57325 CMP - LAB USE ONLY 10:44:39 CDT CPT-01250 Lipid - LAB USE ONLY 10:44:39 CDT 9 CPT-01004 Venipuncture Draw Fee 10:44:38 CDT CPT-26894 Allergy Admin 2 12:25:22 CDT CPT-43629 Allergy Admin 2 12:41:34 CDT CPT-24965 Allergy Admin 2 15:29:46 CDT CPT-28745 Allergy Admin 2 14:46:53 CDT CPT-29054 Allergy Admin 2 14:16:16 CDT CPT-95071 Allergy Admin 2 16:55:26 CDT CPT-46729 Allergy Admin 2 10:12:02 CDT CPT-83920 Allergy Admin 2 14:53:56 CDT CPT-76440 Allergy Admin 2 17:01:54 CDT CPT-28445 Allergy Admin 2 09:36:02 CDT CPT-68345 Allergy Admin 2 16:53:26 [facility] CPT-77629 Allergy Admin 2 16:59:41 [facility] CPT-39989 Allergy Admin 2 16:36:44 [facility] CPT-00990 Allergy Admin 2 16:17:16 [facility] CPT-56356 Allergy Admin 2 17:08:10 [facility] CPT-79660 Allergy Admin 2 12:16:08 [facility] CPT-04482 Allergy Admin 2 16:47:30 [facility] CPT-01227 Allergy Admin 2 16:59:44 [facility] CPT-34558 Allergy Admin 2 12:48:53 [facility] CPT-76781 Allergy Admin 2 10:19:48 [facility] CPT-70452 Allergy Admin 2 12:40:17 [facility] CPT-77883 Abx/Therapy Injection 17:21:59 [facility] CPT-43152 First Vx - Ix admin via ID I M or jet injects without counseling by physician 17:21:57 [facility] CPT-46791 Allergy Admin 2 17:20:12 [facility] CPT-23807 Allergy Admin 2 11:12:50 [facility] CPT-29008 Allergy Admin 2 17:02:39 CDT CPT-60424 BMP - LAB USE ONLY 10:33:02 CDT CPT-04542 CBC - LAB USE ONLY 10:33:02 CDT CPT-13707 Venipuncture Draw Fee 10:33:02 CDT CPT-43124 Abx/Therapy Injection 12:29:08 CDT CPT-86206 Allergy Admin 2 10:39:48 CDT CPT-94905 Allergy Admin 2 10:55:47 CDT CPT-PV Prev. Care Visit 10:10:00 CDT CPT-90663 Allergy Admin 2 11:31:20 CDT CPT-91873 Allergy Admin 2 16:53:45 CDT CPT-05027 Allergy Admin 2 16:36:42 CDT CPT-89262 Allergy Admin 2 16:30:19 CDT CPT-98932 Allergy Admin 2 15:39:35 CDT CPT-14694 Allergy Admin 2 17:51:32 CDT CPT-66775 Allergy Admin 2 11:50:50 CDT CPT-PV Prev. Care Visit 14:09:05 CDT CPT-12471 Allergy Admin 2 13:37:39 CDT CPT-54241 Abx/Therapy Injection 12:17:43 CDT CPT-16648 Venipuncture Draw Fee 10:39:55 CDT CPT-41465 Allergy Admin 2 12:04:53 CDT CPT-31452 Allergy Admin 2 10:04:39 CDT CPT-27575 Allergy Admin 2 12:15:35 CDT CPT-72978 Allergy Admin 2 17:04:36 CDT CPT-80295 Allergy Admin 2 16:25:49 CDT CPT-96970 Allergy Admin 2 17:30:06 CDT CPT-03325 Allergy Admin 2 10:11:48 CDT CPT-70585 Allergy Admin 2 17:06:13 CDT CPT-85327 Abx/Therapy Injection 12:23:07 CDT CPT-J0702 Celestone 12 mg (Betamethasone) 12:23:07 CD T CPT-20488 Venipuncture Draw Fee 10:26:42 CDT CPT-32324 Allergy Admin 2 12:10:01 CDT CPT-31277 Allergy Admin 2 15:13:57 [employer] CPT-63384 Allergy Admin 2 16:55:22 [employer] CPT-26006 Allergy Admin 2 10:13:46 [employer] CPT-63462 Venipuncture Draw Fee 10:06:08 [employer] CPT-01718 Allergy Admin 2 16:15:41 [employer] CPT-41071 Allergy Admin 2 16:40:21 [employer] CPT-88440 Allergy Admin 2 16:31:48 [employer] CPT-78747 Allergy Admin 2 16:38:26 [employer] CPT-60193 Allergy Admin 2 16:40:08 [employer] CPT-71885 Allergy Admin 2 08:34:27 [employer] CPT-23653 Allergy Admin 2 14:27:45 [employer] CPT-33703 Destruction bgn lsn up to 14 09:41:27 [employer] 2 CPT-58059 Allergy Admin 2 17:45:17 [employer] CPT-19361 Allergy Admin 2 14:59:03 [employer] CPT-14890 Allergy Admin 2 12:49:42 CDT CPT-56311 Administration single or combination vac cine inc oral 15:01:57 CDT CPT-98376 Fluzone Quadrivalent Intramuscular Suspe nsion 0.5 ML 15:01:57 CDT CPT-80941 Allergy Admin 2 15:07:08 CDT CPT-01491 Allergy Admin 2 15:39:01 CDT CPT-00128 Allergy Admin 2 17:40:11 CDT CPT-46931 Allergy Admin 2 16:07:08 CDT CPT-60558 Allergy Admin 2 16:08:07 CDT CPT-66006 Venipuncture Draw Fee 09:34:29 CDT CPT-18076 Allergy Admin 2 16:27:43 CDT CPT-54293 Allergy Admin 2 15:53:10 CDT CPT-45499 Allergy Admin 2 15:42:29 CDT CPT-36191 Allergy Admin 2 11:26:14 CDT CPT-37041 Allergy Admin 2 10:36:24 CDT CPT-59257 Allergy Admin 2 16:53:37 CDT CPT-14027 Allergy Admin 2 11:21:44 CDT CPT-90676 Allergy Admin 2 10:50:40 CDT CPT-71248 Allergy Admin 2 11:19:11 CDT CPT-60233 Venipuncture Draw Fee 11:12:25 CDT CPT-86748 Allergy Admin 2 11:14:51 CDT CPT-45740 Allergy Admin 2 16:53:11 CDT CPT-08270 Allergy Admin 2 11:45:56 CDT CPT-57644 Allergy Admin 2 12:51:39 CDT CPT-94096 Allergy Admin 2 12:08:56 CDT CPT-85885 Allergy Admin 2 15:29:45 CDT CPT-94049 Allergy Admin 2 16:34:01 CDT CPT-40043 Allergy Admin 2 16:36:46 CDT CPT-75948 Allergy Admin 2 15:19:16 CDT CPT-14760 Allergy Admin 2 16:13:25 CDT CPT-79067 Allergy Admin 2 17:06:17 CDT CPT-13506 Allergy Admin 2 10:42:10 [employer] CPT-11109 Allergy Admin 2 17:33:16 [employer] CPT-84134 Allergy Admin 2 10:53:30 [employer] CPT-55028 Allergy Admin 2 14:18:24 [employer] CPT-20160 Allergy Admin 2 10:18:29 [employer] CPT-85823 Allergy Admin 2 12:57:40 [employer] CPT-36619 Allergy Admin 2 16:53:33 [employer] CPT-09502 Allergy Admin 2 12:43:00 [employer] CPT-52101 Allergy Admin 2 13:14:09 [employer] CPT-36623 Pneumovax 23 Injection Injectable 25 MCG /0.5ML 09:51:29 [employer] CPT-G0009 Administration of Pneumococcal Vaccine 09:51:29 [employer] CPT-03604 Influenza split virus > age 3 09:51:29 [employer] CPT-G0008 Administration of Influenza Virus Vaccine 02/23 09:51:29 [employer] CPT-32219 Venipuncture Draw Fee 10:31:06 CDT CPT-J0702 Celestone 12 mg (Betamethasone) 11:34:17 CD T CPT-33511 Abx/Therapy Injection 11:34:17 CDT CPT-38470 Chest 2V Frontal and Lat 11:31:47 CDT 07/04 CPT-29517 Venipuncture Draw Fee 11:31:47 CDT CPT-55042 Allergy Admin 2 14:31:05 CDT CPT-33352 EKG Trac and Interp 08:42:32 CDT CPT-46929 Chest 2V Frontal and Lat 08:42:32 CDT 05/28 CPT-86716 Venipuncture Draw Fee 08:39:02 CDT CPT-69542 Allergy Admin 2 16:59:09 CDT CPT-59547 Allergy Admin 2 17:06:11 CDT CPT-71111 Allergy Admin 2 16:04:36 CDT CPT-56688 Venipuncture Draw Fee 16:32:44 [employer] CPT-01839 Venipuncture Draw Fee 10:54:37 [employer] CPT-41424 Allergy Admin 2 14:53:55 [employer] CPT-10761 Allergy Admin 2 10:23:58 [employer] CPT-48805 First Vx Component - Ix admi n via ID IM or jet inj without physician counseling 15:34:26 [employer] CPT-16851 Fluzone (>=3 yrs.) 15:34:26 [employer] CPT-92013 Allergy Admin 2 15:56:02 [employer] CPT-04134 Allergy Admin 2 11:08:58 [employer] CPT-67355 Allergy Admin 2 10:51:36 [employer] CPT-87360 Allergy Admin 2 15:38:19 [employer] CPT-71915 Allergy Admin 2 15:12:46 CDT CPT-71895 Allergy Admin 2 10:28:50 CDT CPT-09395 Allergy Admin 2 16:35:33 CDT CPT-93881 Allergy Admin 2 10:14:18 CDT CPT-35261 Abx/Therapy Injection 09:06:45 CDT CPT-J0702 Celestone 6 mg (Betamethasone) 09:06:45 CDT CPT-67251 Allergy Admin 2 15:51:15 CDT CPT-09863 Allergy Admin 2 10:40:16 CDT CPT-99511 Allergy Admin 2 16:35:55 CDT CPT-48991 Allergy Admin 2 13:12:52 CDT CPT-84683 Allergy Admin 2 16:06:50 CDT CPT-65427 Allergy Admin 2 11:04:24 CDT CPT-95112 Allergy Admin 2 10:44:50 CDT CPT-33561 Allergy Admin 2 15:13:40 CDT CPT-95819 Allergy Admin 2 15:00:03 CDT CPT-08348 Allergy Admin 2 10:37:38 CDT CPT-32649 Venipuncture Draw Fee 09:16:43 [employer] CPT-13953 Allergy Admin 2 11:15:59 [employer] CPT-32189 Postop F/U Visit 10:10:52 [employer] CPT-87600 Allergy Admin 2 13:05:05 [employer] CPT-28781 Postop F/U Visit 19:45:16 [employer] CPT-71697 Allergy Admin 2 11:52:35 [employer] CPT-09967 Allergy Admin 2 10:49:22 [employer] CPT-OV Office Visit 13:55:55 [employer] CPT-14215 Allergy Admin 2 12:54:28 [employer] CPT-OV Office Visit 14:04:48 [employer] CPT-56430 Venipuncture Draw Fee 10:29:14 [employer] CPT-47598 Allergy Admin 2 11:24:43 [employer] CPT-38845 Knee 3V 11:00:12 [employer] CPT-58410 C-Spine Min 4V 11:00:12 [employer] CPT-50571 Allergy Admin 2 13:38:40 [employer] CPT-05634 Venipuncture Draw Fee 11:33:37 CDT CPT-56930 Allergy Admin 2 15:34:37 CDT CPT-44834 Allergy Admin 2 14:11:42 CDT CPT-37825 Administration single or combination vac cine inc oral 12:51:42 CDT CPT-52278 Influenza split virus > age 3 12:51:42 CDT CPT-21820 Allergy Admin 2 11:58:43 CDT CPT-50234 Allergy Admin 2 11:29:32 CDT CPT-55334 Allergy Admin 2 10:55:19 CDT CPT-40622 Allergy Admin 2 12:38:54 CDT CPT-70773 Allergy Admin 2 13:01:47 CDT CPT-00860 Abx/Therapy Injection 12:41:18 CDT CPT-J0702 Celestone 12 mg (Betamethasone) 12:41:18 CD T CPT-47476 Abx/Therapy Injection 16:33:09 CDT CPT-J0702 Celestone 12 mg (Betamethasone) 16:33:09 CD T CPT-98615 Allergy Admin 2 15:49:09 CDT CPT-12967 Allergy Admin 2 12:08:56 CDT CPT-42759 Allergy Admin 2 12:19:10 CDT CPT-27569 Allergy Admin 2 12:46:56 CDT CPT-85455 Allergy Admin 2 15:05:13 CDT CPT-99646 Allergy Admin 2 15:36:20 CDT CPT-43404 Allergy Admin 2 09:58:47 [employer] CPT-92737 Allergy Admin 2 12:18:06 [employer] CPT-26711 Allergy Admin 2 10:01:48 [employer] CPT-01190 Allergy Admin 2 12:17:53 [employer] CPT-64279 Allergy Admin 2 10:06:44 [employer] CPT-45227 Allergy Admin 2 10:13:04 [employer] CPT-44761 Venipuncture Draw Fee 10:09:07 [employer] CPT-44917 Bone Density 12:24:51 [employer] CPT-82520 Allergy Admin 2 11:29:41 [employer] CPT-83133 Allergy Admin 2 16:07:15 [employer] CPT-94530 Breathing Treatment 06:34:33 [employer] CPT-J0702 Celestone 12 mg (Betamethasone) 06:34:33 CS T CPT-21009 Abx/Therapy Injection 06:34:33 [employer] CPT-75895 Breathing Tx 11:07:33 [employer] CPT-76632 Allergy Admin 2 10:02:33 CDT CPT-96664 Allergy Admin 2 10:02:33 CDT CPT-29175 Allergy Admin 2 15:26:19 CDT CPT-38535 Administration single or combination vac cine inc oral 15:41:12 CDT CPT-00520 Influenza split virus > age 3 15:41:12 CDT
--- OUTSIDE RECORDS SUMMARY | 2020-09-15 14:39 | XMS REPORT | Clinical Summary ---
Author Author Admin, Supriya Zuniga Organization [facility] Address Unknown Phone Unavailable Allergies, [...] Yang APRN Pruritus vulvae Active Ashley Yokum DEPUTY CORONER INVESTIGATOR Screening mammogram V76.12 Resolved Ashley Yokum A PRN Other screening mammogram Sinusitis, acute maxillary 461.0 Inactive 7 Ashley Yokum DEPUTY CORONER INVESTIGATOR Acute maxillary sinusitis Diarrhea, acute 787.91 Resolved Ashley Yokum DEPUTY CORONER INVESTIGATOR Diarrhea Vaginal candidiasis 112.1 Resolved Ashley Yokum A PRN Candidiasis of vulva and vagina Accidental fall E888.9 Resolved Ashley Yokum DEPUTY CORONER INVESTIGATOR Unspecified fall Contusion of left hand, initial encounter 923.20 Resol burak Ashley Yokum DEPUTY CORONER INVESTIGATOR Contusion of hand(s) Contusion of right upper arm, subsequent encounter V58.89 201 09/14/21 Resolved Ashley Yokum DEPUTY CORONER INVESTIGATOR Encounter for other specified a [facility]care Ganglion cyst of left wrist 727.41 Active Derrick Younger MD Ganglion of joint Body Mass Index 31.0-31.9 Adult Resolved 2017 Ashley Yokum DEPUTY CORONER INVESTIGATOR Body Mass Index 31.0-31.9, adult Plantar fasciitis 728.71 Active Ashley Yokum DEPUTY CORONER INVESTIGATOR Plantar fascial fibromatosis Bronchitis, acute 466.0 Inactive Ashley Yokum APR N Acute bronchitis Body Mass Index 30.0-30.9 Adult Resolved 2017 Ashley Yokum DEPUTY CORONER INVESTIGATOR Body Mass Index 30.0-30.9, adult Allergic conjunctivitis, bilateral 372.14 Resolved 2 Ashley Yokum DEPUTY CORONER INVESTIGATOR Other chronic allergic conjunctivitis Skin tags; irritated/inflammed 701.9 Resolved 11/10 Ashley Yokum DEPUTY CORONER INVESTIGATOR Unspecified hypertrophic and atrophic co nditions of skin Body Mass Index 31.0-31.9 Adult Refinement 2017 Ashley Yokum DEPUTY CORONER INVESTIGATOR Body Mass Index 31.0-31.9, adult BMI 30-30.9 Refinement Ashley Yokum DEPUTY CORONER INVESTIGATOR Body Mass Index 31.0-31.9, adult BMI 31-31.9 Refinement Ashley Yokum DEPUTY CORONER INVESTIGATOR Body Mass Index 31.0-31.9, adult BMI 32-32.9 Refinement Lois Faith RN Body Mass Index 31.0-31.9, adult BMI 31-31.9 Active Viviana Rubio APRN-Julieta Body Mass Index 31.0-31.9, adult Major depression, recurrent, moderate 296.32 Active Ashley Yokum DEPUTY CORONER INVESTIGATOR Major depressive disorder, recurrent epi sode, moderate degree Obesity Class I (BMI 30-34.9) Active Ashley Y okum DEPUTY CORONER INVESTIGATOR Obesity, unspecified Nausea and vomiting 787.01 Resolved Ashley Yokum A PRN Nausea with vomiting Gastroenteritis acute 558.9 Resolved Ashley Yokum DEPUTY CORONER INVESTIGATOR Other and unspecified noninfectious gastroenteritis and colitis GERD 530.81 Active Ashley Yokum DEPUTY CORONER INVESTIGATOR E sophageal reflux Joint pain 719.40 Resolved Ashley Yokum DEPUTY CORONER INVESTIGATOR Pain in joint, site unspecified Preventive health care, adult V70.0 Inactive /06 Ashley Yokum DEPUTY CORONER INVESTIGATOR Routine general medical examination at a health care facility Blood in urine 599.70 Resolved Ashley Yokum DEPUTY CORONER INVESTIGATOR Hematuria, unspecified Other abnormal findings in urine Resolved Ashley Yokum DEPUTY CORONER INVESTIGATOR Urinary tract infection 599.0 Inactive Ashley Yok um DEPUTY CORONER INVESTIGATOR Urinary tract infection, site not specified Chafing of skin 709.8 Resolved Ashley Yokum DEPUTY CORONER INVESTIGATOR Other specified disorders of skin Preventive care V70.0 Active Supriya Huston A Routine general medical examination at a health care facility Gynecological examination, routine V72.3 Inactive 2 Ashley Yokum DEPUTY CORONER INVESTIGATOR Special investigations and e xaminations - Gynecological examination Near syncope 780.2 Resolved Ashley Yokum DEPUTY CORONER INVESTIGATOR Syncope and collapse Lightheadedness 780.4 Resolved Ashley Yokum DEPUTY CORONER INVESTIGATOR Dizziness and giddiness Headache 784.0 Resolved Ashley Yokum DEPUTY CORONER INVESTIGATOR Headache Sore throat 462 Resolved Ashley Yokum DEPUTY CORONER INVESTIGATOR Acute pharyngitis Sinusitis - acute 461.9 Resolved Ashley Yokum APR N Acute sinusitis, unspecified Tired all the time 780.79 Resolved Ashley Yokum AP RN Other malaise and fatigue Fatigue 780.79 Inactive Ashley Yokum DEPUTY CORONER INVESTIGATOR Other malaise and fatigue ABNORMAL WEIGHT GAIN ICD-783.1 Inactive Wayne YANG ALLERGIC RHINITIS ICD-477.9 Inactive Lois Angelo mendieta DEPUTY CORONER INVESTIGATOR SINUSITIS ICD-473.9 Inactive Lois Deric DEPUTY CORONER INVESTIGATOR 2012 WHEEZING ICD-786.07 Inactive Lois Deric DEPUTY CORONER INVESTIGATOR 2012 UPPER RESPIRATORY INFECTION, ACUTE ICD-465.9 I nactive Lois Deric DEPUTY CORONER INVESTIGATOR NEED FOR DESENSITIZATION TO ALLERGENS ICD-V07.1 8 Inactive Ashley Yokum DEPUTY CORONER INVESTIGATOR OBESITY ICD-278.00 Inactive Wayne YANG CONTACT DERMATITIS DUE TO POISON ARANZA ICD-692.6 Inactive Lois Leos DEPUTY CORONER INVESTIGATOR NEED PROPHYLACTIC VACCINATION&INOCULATION FLU ICD-V04.81 Inactive Wayne Harms PA GERD ICD-530.81 Inactive Lois Leos DEPUTY CORONER INVESTIGATOR 03/22 LONG-TERM (CURRENT) USE OF OTHER MEDICATIONS ICD-V58.69 6 Inactive Wayne Harms PA NECK PAIN ICD-723.1 Inactive Wayne Harms PA 06/15 DEGENERATIVE DISC DISEASE, CERVICAL SPINE ICD-722.4 Inactive Wayne Harms PA SKIN TAG ICD-701.9 Inactive Wayne Harms PA G E R D ICD-530.81 Inactive Lois Leos DEPUTY CORONER INVESTIGATOR CANDIDIASIS OF SKIN AND NAILS ICD-112.3 Inacti ve Wayne Harms PA AFTERCARE FOLLOW SURGERY MUSCULOSKEL SYSTEM NEC ICD-V58.78 Inactive Wayne Harms PA PHARYNGITIS ICD-462 Inactive Wayne Harms PA 05/03 OTHER SCREENING MAMMOGRAM ICD-V76.12 Inactive Wayne Harms PA DYSPAREUNIA, MILD ICD-625.0 Inactive Wayne Harm s PA CONTACT DERMATITIS DUE TO POISON ARANZA ICD-692.6 Inactive Wayne Harms PA Sinusitis, chronic ICD-473.9 Inactive Ashley vallejo DEPUTY CORONER INVESTIGATOR Myalgia ICD-729.1 Inactive Wayne Harms PA Rheumatoid [...] PA Runny nose ICD-472.0 Inactive Ashley Yang DEPUTY CORONER INVESTIGATOR Influenza like illness ICD-487.1 Inactive Wayne Moon PA Acute maxillary sinusitis ICD-461.0 Inactive Ashley Yokum DEPUTY CORONER INVESTIGATOR Preventive health care ICD-V70.0 Inactive Jenny mo Yokum DEPUTY CORONER INVESTIGATOR Well women exam ICD-V72.3 Inactive Ashley Yokum DEPUTY CORONER INVESTIGATOR Screening mammogram ICD-V76.12 Inactive Ashley Yokum DEPUTY CORONER INVESTIGATOR Sinusitis, acute maxillary ICD-461.0 Inactive Ashley Yokum DEPUTY CORONER INVESTIGATOR Diarrhea, acute ICD-787.91 Inactive Ashley Merazu m DEPUTY CORONER INVESTIGATOR Vaginal candidiasis ICD-112.1 Inactive Ashley Y abdonum DEPUTY CORONER INVESTIGATOR Accidental fall ICD-E888.9 Inactive Ashley Yoku m DEPUTY CORONER INVESTIGATOR Contusion of left hand, initial encounter ICD-923.20 Inactive Ashley Yokum DEPUTY CORONER INVESTIGATOR Contusion of right upper arm, subsequent encounter ICD-V58.89 Inactive Ashley Yokum DEPUTY CORONER INVESTIGATOR Body Mass Index 31.0-31.9 Adult Inac tive Ashley Yokum DEPUTY CORONER INVESTIGATOR Bronchitis, acute ICD-466.0 Inactive Ashley Yok um DEPUTY CORONER INVESTIGATOR Body Mass Index 30.0-30.9 Adult Inac tive Ashley Yokum DEPUTY CORONER INVESTIGATOR Allergic conjunctivitis, bilateral ICD-372.14 I nactive Ashley Yokum DEPUTY CORONER INVESTIGATOR Skin tags; irritated/inflammed ICD-701.9 Inact rancho Ashley Yokum DEPUTY CORONER INVESTIGATOR Nausea and vomiting ICD-787.01 Inactive Ashley Yokum DEPUTY CORONER INVESTIGATOR Gastroenteritis acute ICD-558.9 Inactive Conchis hi Yokum DEPUTY CORONER INVESTIGATOR Joint pain ICD-719.40 Inactive Ashley Yokum APR N Preventive health care, adult ICD-V70.0 Inacti ve Ashley Yokum DEPUTY CORONER INVESTIGATOR Blood in urine ICD-599.70 Inactive Ashley Yokum DEPUTY CORONER INVESTIGATOR Other abnormal findings in urine [place] ctive Ashley Yokum DEPUTY CORONER INVESTIGATOR Urinary tract infection ICD-599.0 Inactive K athi Yokum DEPUTY CORONER INVESTIGATOR Chafing of skin ICD-709.8 Inactive Ashley Yokum DEPUTY CORONER INVESTIGATOR Gynecological examination, routine ICD-V72.3 I nactive Ashley Yokum DEPUTY CORONER INVESTIGATOR Near syncope ICD-780.2 Inactive Ashley Yokum AP RN Lightheadedness ICD-780.4 Inactive Ashley Yokum DEPUTY CORONER INVESTIGATOR Headache ICD-784.0 Inactive Ashley Yokum DEPUTY CORONER INVESTIGATOR 2020 Sore throat ICD-462 Inactive Ashley Yokum DEPUTY CORONER INVESTIGATOR 02/17/17 Sinusitis - acute ICD-461.9 Inactive Ahsley Yok um DEPUTY CORONER INVESTIGATOR Tired all the time ICD-780.79 Inactive Ashley gutierrez DEPUTY CORONER INVESTIGATOR Fatigue ICD-780.79 Inactive Ashlye Yang DEPUTY CORONER INVESTIGATOR 2020 Medication List Medication Instructions Start Date Stop Date Generic Name NDC Status Provider Patient Instruction ALPRAZOLAM 0.25 MG TABS TAKE 1 TO 2 TABLETS BY MOUTH THREE TIMES DAILY NEEDED ALPRAZOLAM 16313690083 Active Shanelle Rivera RN Active PHENTERMINE HCL 37.5 MG ORAL TABLET 1/2 qAM, can incre ase to 1 qAM - take 30 min before or 2 hrs after breakfast PHENTERMINE HCL 38683 775911 Active Ashley Yang DEPUTY CORONER INVESTIGATOR Active MUCINEX D 60-600 MG ORAL TABLET EXTENDED RELEASE 12 HO UR 1 po BID PRN Congestion PSEUDOEPHEDRINE-GUAIFENESIN 11967706638 Active Ashley Yang DEPUTY CORONER INVESTIGATOR Active ZYRTEC ALLERGY 10 MG ORAL CAPSULE 1qd CETIR IZINE HCL 42041175128 No Longer Active Ashley Yang DEPUTY CORONER INVESTIGATOR Active HAIR, SKIN, NAILS VITAMINS take 1 tab by mouth 2x a day HAIR, SKIN, NAILS VITAMINS Active Ashley Yang APRN Active CENTRUM SILVER FOR WOMEN OVER 50 1 tab by mouth by day. CENTRUM SILVER FOR WOMEN OVER 50 Active Ashley Yang APRN Active VITAMIN D3 1000 UNIT ORAL CAPSULE 1 po qd CH OLECALCIFEROL 41417110576 Active Ashley Merazum DEPUTY CORONER INVESTIGATOR Active PREDNISONE 20 MG ORAL TABLET Take 2 tablets by mouth d aily for 2 days then 1 tablet daily for 2 days. PREDNISONE 31291080206 No Longer Active Ashley Merazum DEPUTY CORONER INVESTIGATOR Active MELOXICAM 15 MG ORAL TABLET TAKE 1 TABLET BY MOUTH IN THE MORNING 2 MELOXICAM 83489861228 Active LARRY Murillo Active CLARITIN 10 MG ORAL TABLET 1 tablet by mouth daily as needed for allergies LORATADINE 09400038993 Active Supriya Betzaida RMA Active SIMVASTATIN 40 MG ORAL TABLET TAKE 1 TABLET BY MOUTH ONCE DA JAVON AT BEDTIME SIMVASTATIN 23002508712 Active Marcy Medina, RMA Active UMEUDAJ-PWRZPZBAI-HREG ORAL TABLET MULT IPLE MINERALS 03171732484 Active Lois Faith, RN Active SERTRALINE HCL 100 MG ORAL TABLET Take 1 tablet by mouth once da javon SERTRALINE HCL 51740793342 Active Marcy Medina, RMA A ctive REGLAN 10 MG ORAL TABLET 1 po qid for bowels 3 METOCLOPRAMIDE HCL 45693671876 No Longer Active Ashley Yoеленаum ELAINA A ctive ADK [id number] UNIT-MCG ORAL CAPSULE 1 daily VITAMINS A D K 07608551567 Active Ashley Yokum DEPUTY CORONER INVESTIGATOR Active B-12 2500 MCG ORAL TABLET 1 daily CYANOCOBAL UHNT 04389487200 No Longer Active Ashley Yokum DEPUTY CORONER INVESTIGATOR Active ESTRADIOL 2 MG TABS Take 1 tablet by mouth once daily ESTRADIOL 27215740802 Active Shanelle Nicole RN Active MACROBID 100 MG ORAL CAPSULE 1 cap by mouth twice daily NITROFURANTOIN MONOHYD MACRO 22305052096 No Longer Active Ashley Clarkekum DEPUTY CORONER INVESTIGATOR Active FISH OIL + D3 3097-0745 MG-UNIT ORAL CAPSULE 1 dailly 4 FISH OIL-CHOLECALCIFEROL 15507357627 Active Ashley Yokum DEPUTY CORONER INVESTIGATOR Acti ve PROAIR HFA 108 (90 BASE) MCG/ACT INHALATION AEROSOL SO LUTION 2 puffs four times a day as needed ALBUTEROL SULFATE 32732977114 No Long er Active Ashley Yokum DEPUTY CORONER INVESTIGATOR Active ZITHROMAX Z-SANJANA 250 MG ORAL TABLET Take 2 tablets toda y and 1 each day till gone AZITHROMYCIN 88610314409 No Longer Active Ashley Yokum DEPUTY CORONER INVESTIGATOR Active POLYTRIM 19474-4.1 UNIT/ML-% OPHTHALMIC SOLUTION 1 gtt to affected eye q3h x 7 days POLYMYXIN B-TRIMETHOPRIM 11743833367 No Longer Active Ashley Yokum DEPUTY CORONER INVESTIGATOR Active IBUPROFEN 200 MG ORAL TABLET Take 3 tablets every 6hrs 201 09/17/15 IBUPROFEN 23383494784 No Longer Active Ashley Yokum DEPUTY CORONER INVESTIGATOR Active DIFLUCAN 150 MG ORAL TABLET Take one tablet today and repeat in 72 hours FLUCONAZOLE 28472242838 No Longer Active Derrick cardenas MD Active DIFLUCAN 150 MG ORAL TABLET 1 by mouth for yeast 03/03 FLUCONAZOLE 70969333080 No Longer Active Ashley Yokum DEPUTY CORONER INVESTIGATOR Active AUGMENTIN 875-125 MG ORAL TABLET Take one tablet twice a day with food AMOXICILLIN-POT CLAVULANATE 51493374474 No Longer Act rancho Ashley Yokum DEPUTY CORONER INVESTIGATOR Active CALCIUM 600 + D 600-200 MG-UNIT ORAL TABLET Take one daily CALCIUM CARB-CHOLECALCIFEROL 64570047882 No Longer Active Ashley Yokum DEPUTY CORONER INVESTIGATOR Active FLONASE 50 MCG/ACT NASAL SUSPENSION 1 spray each nostr il twice daily for allergies and runny nose FLUTICASONE PROPIONATE 06742006611 No Longer Active Ashley Yokum DEPUTY CORONER INVESTIGATOR Active CLARITIN-D 12 HOUR 5-120 MG ORAL TABLET EXTENDED RELEA SE 12 HOUR Take one tablet BID as needed for allergies LORATADINE-PSEUDOEP HEDRINE 94943914606 No Longer Active Beth Naff [employer]ER Active AMOXICILLIN-POT CLAVULANATE 875-125 MG ORAL TABLET 1 pill by mouth twice daily AMOXICILLIN-POT CLAVULANATE 27371841621 No Longer Act rancho Ashley Yokum DEPUTY CORONER INVESTIGATOR Active AMOXICILLIN 500 MG ORAL CAPSULE Take 1 capsule by mout h three times a day X 10 days AMOXICILLIN 91209537912 No Longer Active Wayne Denys arms PA Active PROBIOTIC DAILY ORAL CAPSULE Take one daily PROBIO TIC PRODUCT 02935961134 Active Wayne Red PA Active TYLENOL 325 MG ORAL TABLET Take 2 every 6hrs prn A CETAMINOPHEN 96392121987 Active Wayne Red PA Active ACETAMINOPHEN 500 MG ORAL TABLET prn RICH TAMINOPHEN 39109819968 No Longer Active Wayne Harms PA Active CLARITIN-D 12 HOUR 5-120 MG ORAL TABLET EXTENDED RELEA SE 12 HOUR Take one tablet bid LORATADINE-PSEUDOEPHEDRINE 16274402372 No Longe r Active Wayne Harms PA Active MOBIC 15 MG ORAL TABLET 1 tablet by mouth daily in am with PPI 2 MELOXICAM 99823674521 No Longer Active Wayne Harms PA Acti ve HYDROCORTISONE 2.5 % EXTERNAL CREAM Apply three times a day to affected area HYDROCORTISONE 59031777937 No Longer Active Wayne Harms PA Active VITAMIN D3 1000 UNIT ORAL TABLET Take two daily CHOLECALCIFEROL 11066012729 No Longer Active Wayne Harms PA Active PROBIOTIC ORAL CAPSULE Take one daily PROBIOTIC PRODUCT 70439580438 No Longer Active Wayne Harms PA Active GREEN TEA SLIM ORAL TABLET Take one daily [facility] [facility] 81193850492 No Longer Active Wayne Harms PA Active BENZONATATE 200 MG ORAL CAPSULE Take one capsule three times a d ay BENZONATATE 53450429883 No Longer Active Wayne Harms PA Act rancho ZITHROMAX Z-SANJANA 250 MG ORAL TABLET 2 today, then 1 daily for 4 d ays AZITHROMYCIN 92592075412 No Longer Active Wayne Harms PA Ac tive ZITHROMAX 250 MG ORAL TABLET 2 po today, then 1 po q days 2-5 20 31/03/18 AZITHROMYCIN 55110646149 No Longer Active Beth Turner [employer]ER Active OMEPRAZOLE 20 MG ORAL CAPSULE DELAYED RELEASE 1 tablet by [facility] daily OMEPRAZOLE 33945395365 Active Supriya Huston RMA Active ZITHROMAX Z-SANJANA 250 MG ORAL TABLET 2x1day,[id number] 2014 AZITHROMYCIN 91018789379 No Longer Active Wayne Harms PA Active FISH OIL 1200 MG ORAL CAPSULE One daily prn OME GA-3 FATTY ACIDS 44348081588 No Longer Active Wayne Harms PA Active CEPHALEXIN 250 MG ORAL CAPSULE Take one tablet qid 201 05/25/29 CEPHALEXIN 20239951354 No Longer Active Wayne Harms PA Active VITAMIN D3 1000 UNIT ORAL TABLET 1qd CHOLEC ALCIFEROL 69843604723 No Longer Active Wayne Harms PA Active B-12 2000 MCG ORAL TABLET 1qd CYANOCOBALAMI N 26294616712 No Longer Active Wayne Harms PA Active ACIPHEX 20 MG ORAL TABLET DELAYED RELEASE 1qd 10/28 RABEPRAZOLE SODIUM 05504793229 No Longer Active Wayne Harms PA Active HYDROCORTISONE 2.5 % EXTERNAL CREAM apply 3-4 times a day to affected area HYDROCORTISONE 55898205103 No Longer Active Wayne Harms PA Active MUCINEX 600 MG ORAL TABLET EXTENDED RELEASE 12 HOUR 2qd GUAIFENESIN 87556999026 No Longer Active Wayne Harms PA Active TUSSIONEX PENNKINETIC ER 10-8 MG/5ML ORAL SUSPENSION E XTENDED RELEASE 5ml po q12hr PRN Cough HYDROCOD POLST-CHLORPHEN POLST 5 1794375550 No Longer Active Wayne Harms PA Active ZITHROMAX 250 MG ORAL TABLET 2 po today, then 1 po q days 2-5 20 26/06/21 AZITHROMYCIN 76508222211 No Longer Active Wayne Harms PA Ac tive CLARITIN 10 MG ORAL TABLET one tablet daily THEO ATADINE 58275289397 No Longer Active Wayne Harms PA Active FLAGYL 500 MG ORAL TABLET 1 tablet by mouth three times daily 20 28/05/03 METRONIDAZOLE 21451822414 No Longer Active Wayne Harms PA A ctive CHERATUSSIN AC 100-10 MG/5ML ORAL SYRUP one teaspoon qid. 9 GUAIFENESIN-CODEINE 41012341078 No Longer Active Wayne Harms PA Act rancho VITAMIN D 1000 UNIT ORAL TABLET 1qd CHOLECA LCIFEROL 25774749743 No Longer Active Wayne Harms PA Active CYMBALTA 60 MG ORAL CAPSULE DELAYED RELEASE PARTICLES 1 cap by mouth daily DULOXETINE HCL 64125082401 No Longer Active Wayne Harms PA Active AMOXICILLIN 500 MG ORAL CAPSULE 2 caps tid for 10days AMOXICILLIN 82835563282 No Longer Active Wayne Harms PA Active CALCIUM + D 600-200 MG-UNIT TABS Take one by mouth daily CALCIUM CARBONATE-VITAMIN D 47409979775 No Longer Active Wayne Harms PA Active CENTRUM SILVER ADULT 50+ ORAL TABLET 1qd 2013 MULTIPLE VITAMINS-MINERALS 17248012443 No Longer Active Wayne Harms PA Active VENLAFAXINE HCL 75 MG ORAL TABLET 1tid VE NLAFAXINE HCL 93852573325 No Longer Active Wayne Harms PA Active CLARITIN 10 MG ORAL TABLET 1 tablet by mouth daily as needed for allergies LORATADINE 66695322929 No Longer Active Wayne Harms PA Acti ve HYDROCORTISONE 2.5 % EXTERNAL CREAM Apply four times a day to af fected area HYDROCORTISONE 83912902591 No Longer Active Wayne Harms PA Active ZITHROMAX 250 MG ORAL TABLET 2 po today, then 1 po q days 2-5 20 26/02/30 AZITHROMYCIN 75873039281 No Longer Active Wayne Harms PA Ac tive ZITHROMAX 250 MG ORAL TABLET 2 po today, then 1 po q days 2-5 20 27/02/16 AZITHROMYCIN 61595918111 No Longer Active Wayne Harms PA Ac tive CYMBALTA 30 MG ORAL CAPSULE DELAYED RELEASE PARTICLES 3 caps daily DULOXETINE HCL 71905562734 No Longer Active Wayne Harms PA Active CYMBALTA 60 MG ORAL CAPSULE DELAYED RELEASE PARTICLES one tablet daily, takes 30mg. with 60mg. to make 90 mg. DULOXETINE HCL 90102616338 No Longer Active Wayne Harms PA Active CYMBALTA 30 MG ORAL CAPSULE DELAYED RELEASE PARTICLES 1 daily wi th 60mg DULOXETINE HCL 01256973517 No Longer Active Wayne Harms PA Active ZITHROMAX 250 MG ORAL TABLET 2 po today, then 1 po q days 2-5 20 26/12/21 AZITHROMYCIN 61646772763 No Longer Active Ismael YANG Active PREDNISONE 20 MG ORAL TABLET 3tab x 2days,2tab x 2days ,1tab x 2days,1/2tab x 2days PREDNISONE 68255302244 No Longer Active Wayne Vera jarvis PA Active PREMARIN 0.625 MG ORAL TABLET Take one by mouth daily ESTROGENS CONJUGATED 09426171265 No Longer Active Wayne Harms PA Active ZITHROMAX 250 MG ORAL TABLET 2 po today, then 1 po q days 2-5 20 26/06/19 AZITHROMYCIN 26258449862 No Longer Active Nereyda Lucke Activ e OMEGA-3 1000 MG ORAL CAPSULE 2qd OMEGA-3 FA TTY ACIDS 48935396962 No Longer Active Wayne Harms PA Active BENADRYL ITCH STOPPING 1-0.1 % EXTERNAL CREAM prn DIPHENHYDRAMINE- ZINC ACETATE 97951063295 No Longer Active Wayne Harms PA Active LOTRISONE 1-0.05 % EXTERNAL CREAM Apply bid CLOTRIMAZOLE-BETAMETHASONE 62770986189 No Longer Active Wayne Harms PA Active ZITHROMAX Z-SANJANA 250 MG ORAL TABLET take as directed 20 26/04/19 AZITHROMYCIN 17596779521 No Longer Active Wayne Harms PA Active NYSTATIN 649348 UNIT/GM EXTERNAL POWDER Apply to affected areas BID NYSTATIN 43029952153 No Longer Active Wayne Harms PA Acti ve BENADRYL 25 MG ORAL CAPSULE prn DIPHENHYDRAMINE HCL 09297062549 Active Wayne Harms PA Active LOTRISONE 1-0.05 % EXTERNAL CREAM apply twice a day 20 25/02/17 CLOTRIMAZOLE-BETAMETHASONE 04102769811 No Longer Active Wayne Harms PA Active HYDROCODONE-ACETAMINOPHEN 5-325 MG ORAL TABLET 1-2 every 4hr s prn pain HYDROCODONE-ACETAMINOPHEN 27238821868 No Longer Activ e Wayne Harms PA Active VICODIN 5-300 MG ORAL TABLET 1-2 tabs every 6hrs as needed for p ain HYDROCODONE-ACETAMINOPHEN 45780835758 No Longer Active Wayne Harms PA Active BENADRYL 25 MG ORAL CAPSULE 1prn DIPHENHYDRA MINE HCL 84875364184 No Longer Active Jillina Frazell DEPUTY CORONER INVESTIGATOR Active ROBITUSSIN DM 100-10 MG/5ML ORAL SYRUP 2 teaspoons four times a day DEXTROMETHORPHAN-GUAIFENESIN 49175941181 No Longer Active Jillina Frazell DEPUTY CORONER INVESTIGATOR Active ACIPHEX 20 MG ORAL TABLET DELAYED RELEASE Take one by mouth daily RABEPRAZOLE SODIUM 81563226444 No Longer Active Jillina Frazell DEPUTY CORONER INVESTIGATOR Active TUMS 500 MG ORAL TABLET CHEWABLE prn SADQI CIUM CARBONATE ANTACID 78048810039 No Longer Active Jillina Frazell DEPUTY CORONER INVESTIGATOR Active PEPTO-BISMOL 524 MG/30ML ORAL SUSPENSION prn 02/26 BISMUTH SUBSALICYLATE 83880062738 No Longer Active Jillina Frazell DEPUTY CORONER INVESTIGATOR Active BACTRIM DS 800-160 MG ORAL TABLET 1bid SULFAMETHOXAZOLE-TRIMETHOPRIM 68983340980 No Longer Active Beth Naff [employer] Active GAVISCON EXTRA RELIEF FORMULA CHEW prn A LUM HYDROXIDE-MAG CARBONATE CHEW 09601690160 Active Wayne Harms PA Active DIFLUCAN 150 MG ORAL TABLET 1stat FLUCONAZOL E 88646340432 No Longer Active Wayne Harms PA Active AUGMENTIN 875-125 MG ORAL TABLET 1 tab by mouth twice daily with food AMOXICILLIN-POT CLAVULANATE 47308918429 No Longer Act rancho Wayne Harms PA Active FLUTICASONE PROPIONATE 50 MCG/ACT NASAL SUSPENSION 1 t o 2 sprays each nostril twice a day FLUTICASONE PROPIONATE 19533863675 No Lo nger Active Wayne Harms PA Active HYDROCORTISONE 2.5 % EXTERNAL CREAM apply 2-4 times a day, a s directed, prn HYDROCORTISONE 95229301634 No Longer Active Wayne Harms PA Active ZITHROMAX Z-SANJANA 250 MG ORAL TABLET A ZITHROMYCIN 35761164439 No Longer Active Wayne Harms PA Active SIMVASTATIN 40 MG ORAL TABLET one tablet daily SIMVASTATIN 61614512296 No Longer Active Misty Yoo LPN Active LOVASTATIN 40 MG ORAL TABLET Take one by mouth daily 12/11 LOVASTATIN 77093491186 No Longer Active Misty Yoo [employer]ICER Active PREDNISONE 20 MG ORAL TABLET 2 PO qd x 2d, 1 PO qd x 2d, 1/2 PO qd x 2d PREDNISONE 16285294499 No Longer Active Ismael silva PA Active ZITHROMAX 250 MG ORAL TABLET two tablets now and one daily x 4 d ays AZITHROMYCIN 02408896267 No Longer Active Misty Yoo [employer]ICER Active ZOLPIDEM TARTRATE 10MG TABS (ZOLPIDEM TARTRATE) 1 at bedtime as needed Active Supriya Betzaida RMA Active CLOBETASOL PROPIONATE 0.05 % EXTERNAL CREAM apply as directed CLOBETASOL PROPIONATE 03821253017 No Longer Active Wayne Harms PA A ctive CYMBALTA 30 MG ORAL CAPSULE DELAYED RELEASE PARTICLES takes 90mg qod alt with 60mg DULOXETINE HCL 05170498687 No Longer Active Wayne Harm s PA Active ZITHROMAX 250 MG ORAL TABLET 2 po today, then 1 po q days 2-5 20 12/24/14 AZITHROMYCIN 60530134922 No Longer Active Wayne Harms PA Ac tive TRIAMCINOLONE ACETONIDE 0.1 % EXTERNAL CREAM apply qid TRIAMCINOLONE ACETONIDE 25992109032 No Longer Active Wayne Harms PA Active ALPRAZOLAM 0.25 MG ORAL TABLET 1 tab three times a day 201 02/23/14 ALPRAZOLAM 87613153856 No Longer Active Wayne Harms PA Active ZOLPIDEM TARTRATE 5 MG ORAL TABLET 1 at bedtime as needed ZOLPIDEM TARTRATE 12942906724 No Longer Active Beth Turner [employer]ICER Active ALPRAZOLAM 0.25 MG ORAL TABLET 1 tab three times a day ALPRAZOLAM 0.25 MG ORAL TABLET 282056 ALPRAZOLAM Inactive TRIAMCINOLONE ACETONIDE 0.1 % EXTERNAL CREAM apply qid TRIAMCINOLONE ACETONIDE 0.1 % EXTERNAL CREAM 5963341 TRIAMCINOLONE A CETONIDE Inactive CYMBALTA 30 MG ORAL CAPSULE DELAYED RELEASE PARTICLES takes 90mg qod alt with 60mg CYMBALTA 30 MG ORAL CAPSULE DELAYED RELEA SE PARTICLES 809918 DULOXETINE HCL Inactive CLOBETASOL PROPIONATE 0.05 % EXTERNAL CREAM apply as directed CLOBETASOL PROPIONATE 0.05 % EXTERNAL CREAM 524991 CLOBETASOL PROPI KELVIN Inactive LOVASTATIN 40 MG ORAL TABLET Take one by mouth daily 2 LOVASTATIN 40 MG ORAL TABLET 987215 LOVASTATIN Inactive ZITHROMAX Z-SANJANA 250 MG ORAL TABLET 03/03 ZITHROMAX Z-SANJANA 250 MG ORAL TABLET 256170 AZITHROMYCIN Inactive HYDROCORTISONE 2.5 % EXTERNAL CREAM apply 2-4 times a day, a s directed, prn HYDROCORTISONE 2.5 % EXTERNAL CREAM 127749 HYDRO CORTISONE Inactive FLUTICASONE PROPIONATE 50 MCG/ACT NASAL SUSPENSION 1 t o 2 sprays each nostril twice a day FLUTICASONE PROPIONA TE 50 MCG/ACT NASAL SUSPENSION 0651600 FLUTICASONE PROPIONATE Inactive AUGMENTIN 875-125 MG ORAL TABLET 1 tab by mouth twice daily with food AUGMENTIN 875-125 MG ORAL TABLET AMOXICIL BLOSSOM-POT CLAVULANATE Inactive DIFLUCAN 150 MG ORAL TABLET 1stat DIFLUCAN 150 MG ORAL TABLET 521138 FLUCONAZOLE Inactive PEPTO-BISMOL 524 MG/30ML ORAL SUSPENSION prn PEPTO-BISMOL 524 MG/30ML ORAL SUSPENSION BISMUTH SUBSALICYLATE Inactive TUMS 500 MG ORAL TABLET CHEWABLE prn TUMS 500 MG ORAL TABLET CHEWABLE 272775 CALCIUM CARBONATE ANTACID Inactive ACIPHEX 20 MG ORAL TABLET DELAYED RELEASE Take one by mouth daily ACIPHEX 20 MG ORAL TABLET DELAYED RELEASE 910933 RABEPRAZOLE SODIUM Inactive ROBITUSSIN DM 100-10 MG/5ML [...] pain HYDROCODONE-ACETAMINOPHEN 5-325 MG ORAL TABLET 8 50356 HYDROCODONE-ACETAMINOPHEN Inactive LOTRISONE 1-0.05 % EXTERNAL CREAM apply twice a day 20 25/02/17 LOTRISONE 1- 0.05 % EXTERNAL CREAM CLOTRIMAZOLE-BETAMETHASONE Inactive NYSTATIN 252380 UNIT/GM EXTERNAL POWDER Apply to affected areas BID NYSTATIN 480773 UNIT/GM EXTERNAL POWDER 047694 NYSTATIN Inactive ZITHROMAX Z-SANJANA 250 MG ORAL TABLET take as directed 20 26/04/19 ZITHROMAX Z-SANJANA 250 MG ORAL TABLET 746249 AZITHROMYCIN Inact [place] LOTRISONE 1-0.05 % EXTERNAL CREAM Apply bid LOTRISONE 1- 0.05 % EXTERNAL CREAM CLOTRIMAZOLE-BETAMETHASONE Inactive BENADRYL ITCH STOPPING 1-0.1 % EXTERNAL CREAM prn BENADRYL ITCH STOPPING 1-0.1 % EXTERNAL CREAM DIPHENHYDRAMINE-ZINC ACETATE Inactive OMEGA-3 1000 MG ORAL CAPSULE 2qd OMEGA-3 1000 MG ORAL CAPSULE 077333 OMEGA-3 FATTY ACIDS Inactive ZITHROMAX 250 MG ORAL TABLET 2 po today, then 1 po q days 2-5 20 26/06/19 ZITHROMAX 250 MG ORAL TABLET 610018 AZITHROMYCIN [place] ct[facility] PREMARIN 0.625 MG ORAL TABLET Take one by mouth daily PREMARIN 0.625 MG ORAL TABLET ESTROGENS CONJUGATED Inactive PREDNISONE 20 MG ORAL TABLET 3tab x 2days,2tab x 2days ,1tab x 2days,1/2tab x 2days PREDNISONE 20 MG ORAL TABLET 234261 PREDNIS ONE Inactive CYMBALTA 30 MG ORAL CAPSULE DELAYED RELEASE PARTICLES 1 daily wi th 60mg CYMBALTA 30 MG ORAL CAPSULE DELAYED RELEASE PARTICLES 651964 DULOXETINE HCL Inactive CYMBALTA 60 MG ORAL CAPSULE DELAYED RELEASE PARTICLES one tablet daily, takes 30mg. with 60mg. to make 90 mg. CYMBALTA 60 MG ORAL CAPSULE DELAYED RELEASE PARTICLES 201059 DULOXETINE HCL Inacti ve CYMBALTA 30 MG ORAL CAPSULE DELAYED RELEASE PARTICLES 3 caps daily CYMBALTA 30 MG ORAL CAPSULE DELAYED RELEASE PARTICLES 938527 DULOXE ROSANNE HCL Inactive HYDROCORTISONE 2.5 % EXTERNAL CREAM Apply four times a day to af fected area HYDROCORTISONE 2.5 % EXTERNAL CREAM 510150 HYDROCORTISO NE Inactive CLARITIN 10 MG ORAL TABLET 1 tablet by mouth daily as needed for allergies CLARITIN 10 MG ORAL TABLET 067463 LORATADINE Inact ranch[place] VENLAFAXINE HCL 75 MG ORAL TABLET 1tid VENLAFAXINE HCL 75 MG ORAL TABLET 301778 VENLAFAXINE HCL Inactive CENTRUM SILVER ADULT 50+ ORAL TABLET 1qd 2013 CENTRUM SILVER ADULT 50+ ORAL TABLET MULTIPLE VITAMINS-MINERALS Inactive CALCIUM + D 600-200 MG-UNIT TABS Take one by mouth daily CALCIUM + D 600-200 MG-UNIT TABS CALCIUM CARBONATE-VITAMIN D Inactive AMOXICILLIN 500 MG ORAL CAPSULE 2 caps tid for 10days AMOXICILLIN 500 MG ORAL CAPSULE 872675 AMOXICILLIN Inactive CYMBALTA 60 MG ORAL CAPSULE DELAYED RELEASE PARTICLES 1 cap by mouth daily CYMBALTA 60 MG ORAL CAPSULE DELAYED RELE ASE PARTICLES 722196 DULOXETINE HCL Inactive VITAMIN D 1000 UNIT ORAL TABLET 1qd 4 VITAMIN D 1000 UNIT ORAL TABLET CHOLECALCIFEROL Inactive CHERATUSSIN AC 100-10 MG/5ML ORAL SYRUP one teaspoon qid. 9 CHERATUSSIN AC 100-10 MG/5ML ORAL SYRUP GUAIFENESIN-CODEINE Inactive FLAGYL 500 MG ORAL TABLET 1 tablet by mouth three times daily 20 28/05/03 FLAGYL 500 MG ORAL TABLET 890529 METRONIDAZOLE Inacti ve CLARITIN 10 MG ORAL TABLET one tablet daily CLARITIN 10 MG ORAL TABLET 585927 LORATADINE Inactive TUSSIONEX PENNKINETIC ER 10-8 MG/5ML [...] affected area HYDROCORTISONE 2.5 % EXTERNAL CREAM 435856 HYDRO CORTISONE Inactive ACIPHEX 20 MG ORAL TABLET DELAYED RELEASE 1qd ACIPHEX 20 MG ORAL TABLET DELAYED RELEASE 246560 RABEPRAZOLE SODIUM Inactive B-12 2000 MCG ORAL TABLET 1qd B-12 2000 MCG ORAL TABLET CYANOCOBALAMIN Inactive VITAMIN D3 1000 UNIT ORAL TABLET 1qd VITAMIN D3 1000 UNIT ORAL TABLET CHOLECALCIFEROL Inactive CEPHALEXIN 250 MG ORAL CAPSULE Take one tablet qid 201 05/25/29 CEPHALEXIN 250 MG ORAL CAPSULE 899330 CEPHALEXIN Inactive FISH OIL 1200 MG ORAL CAPSULE One daily prn FISH OIL 1200 MG ORAL CAPSULE OMEGA-3 FATTY ACIDS Inactive ZITHROMAX Z-SANJANA 250 MG ORAL TABLET 2x1day,7z3jess 2014 ZITHROMAX Z-SANJANA 250 MG ORAL TABLET 339452 AZITHROMYCIN [place] BENZONATATE 200 MG ORAL CAPSULE Take one capsule three times a d ay BENZONATATE 200 MG ORAL CAPSULE 573045 BENZONATATE Inactive GREEN TEA SLIM ORAL TABLET Take one daily GREEN TEA SLIM ORAL TABLET MISC NATURAL PRODUCTS Inactive PROBIOTIC ORAL CAPSULE Take one daily PROBIOTIC ORAL CAPSULE 4140759 PROBIOTIC PRODUCT Inactive VITAMIN D3 1000 UNIT ORAL TABLET Take two daily 05/05 VITAMIN D3 1000 UNIT ORAL TABLET CHOLECALCIFEROL Inactive HYDROCORTISONE 2.5 % EXTERNAL CREAM Apply three times a day to affected area HYDROCORTISONE 2.5 % EXTERNAL CREAM 834967 HYDRO CORTISONE Inactive MOBIC 15 MG ORAL TABLET 1 tablet by mouth daily in am with PPI 2 MOBIC 15 MG ORAL TABLET 743706 MELOXICAM Inactive CLARITIN-D 12 HOUR 5-120 MG ORAL TABLET EXTENDED RELEA SE 12 HOUR Take one tablet bid CLARITIN-D 12 HOUR 5 -120 MG ORAL TABLET EXTENDED RELEASE 12 HOUR LORATADINE-PSEUDOEPHEDRINE Inactive ACETAMINOPHEN 500 MG ORAL TABLET prn ACETAMINOPHEN 500 MG ORAL TABLET 139014 ACETAMINOPHEN Inactive CLARITIN-D 12 HOUR 5-120 MG [...] yeast 03/03 DIFLUCAN 150 MG ORAL TABLET 011608 FLUCONAZOLE Inactive DIFLUCAN 150 MG ORAL TABLET Take one tablet today and repeat in 72 hours DIFLUCAN 150 MG ORAL TABLET 047720 FLUCONAZOLE Inactive IBUPROFEN 200 MG ORAL TABLET Take 3 tablets every 6hrs IBUPROFEN 200 MG ORAL TABLET 969770 IBUPROFEN Inactive ZITHROMAX Z-SANJANA 250 MG ORAL TABLET Take 2 tablets toda y and 1 each day till gone ZITHROMAX Z-SANJANA 250 MG ORAL TABLET 269480 A ZITHROMYCIN Inactive PROAIR HFA 108 (90 [...] bowels 3 REGLAN 10 MG ORAL TABLET 804272 METOCLOPRAMIDE HCL Inactive PREDNISONE 20 MG ORAL TABLET Take 2 tablets by mouth d aily for 2 days then 1 tablet daily for 2 days. PREDNISONE 20 MG ORAL T ABLET 492204 PREDNISONE Inactive ZYRTEC ALLERGY 10 MG ORAL CAPSULE 1qd ZYRTEC ALLERGY 10 MG ORAL CAPSULE CETIRIZINE HCL Inactive ZITHROMAX 250 MG ORAL TABLET 2 po today, then 1 po q days 2-5 20 12/24/14 ZITHROMAX 250 MG ORAL TABLET 267613 AZITHROMYCIN [place] ZITHROMAX 250 MG ORAL TABLET two tablets now and one daily x 4 d ays ZITHROMAX 250 MG ORAL TABLET 661129 AZITHROMYCIN [place] [facility] PREDNISONE 20 MG ORAL TABLET 2 PO qd x 2d, 1 PO qd x 2d, 1/2 PO qd x 2d PREDNISONE 20 MG ORAL TABLET 096612 PREDNISONE Inactive SIMVASTATIN 40 MG ORAL TABLET one tablet daily SIMVASTATIN 40 MG ORAL TABLET 138277 SIMVASTATIN Inactive BACTRIM DS 800-160 MG ORAL TABLET 1bid BACTRIM DS 800-160 MG ORAL TABLET 151777 SULFAMETHOXAZOLE-TRIMETHOPRIM Inactive ZITHROMAX 250 MG ORAL TABLET 2 po today, then 1 po q days 2-5 20 26/12/21 ZITHROMAX 250 MG ORAL TABLET 454917 AZITHROMYCIN [place] [facility] ZITHROMAX 250 MG ORAL TABLET 2 po today, then 1 po q days 2-5 20 27/02/16 ZITHROMAX 250 MG ORAL TABLET 089580 AZITHROMYCIN [place] [facility] ZITHROMAX 250 MG ORAL TABLET 2 po today, then 1 po q days 2-5 20 26/02/30 ZITHROMAX 250 MG ORAL TABLET 759711 AZITHROMYCIN [place] [facility] ZITHROMAX 250 MG ORAL TABLET 2 po today, then 1 po q days 2-5 20 26/06/21 ZITHROMAX 250 MG ORAL TABLET 549097 AZITHROMYCIN [place] ZITHROMAX 250 MG ORAL TABLET 2 po today, then 1 po q days 2-5 20 31/03/18 ZITHROMAX 250 MG ORAL TABLET 377897 AZITHROMYCIN [place] ZITHROMAX Z-SANJANA 250 MG ORAL TABLET 2 today, then 1 daily for 4 d ays ZITHROMAX Z-SANJANA 250 MG ORAL TABLET 017861 AZITHROMYCIN Inactive AMOXICILLIN 500 MG ORAL CAPSULE Take 1 capsule by mout h three times a day X 10 days AMOXICILLIN 500 MG ORAL CAPSULE 947987 AMOX ICILLIN Inactive AMOXICILLIN-POT CLAVULANATE 875-125 MG ORAL TABLET 1 pill by mouth twice daily AMOXICILLIN-POT CLAVULANATE 875-125 MG ORAL TABL ET 190781 AMOXICILLIN-POT CLAVULANATE Inactive AUGMENTIN 875-125 MG ORAL TABLET Take one tablet twice a day with food AUGMENTIN 875-125 MG ORAL TABLET AMOXICILLIN-POT CLAVULANATE Inactive POLYTRIM 49177-1.1 UNIT/ML-% OPHTHALMIC SOLUTION 1 gtt to affected eye q3h x 7 days POLYTRIM 30406-9.1 UNIT/ML-% OPH THALMIC SOLUTION 619187 POLYMYXIN B-TRIMETHOPRIM Inactive MACROBID 100 MG ORAL CAPSULE 1 cap by mouth twice daily MACROBID 100 MG ORAL CAPSULE 1640351 NITROFURANTOIN MONOHYD MACRO In active Advance Directives [...] Fluarix, Agriflu(>= 18 yo)) Fluzone (>=3 yrs.) [[id number]] Seasonal influenza vaccine, injectable, containing preservative, for > 3 years old (Afluria, FluLaval, Fluzone, Fluvirin, Fluarix, Agriflu(>= 18 yo)) Fluzone (>3 yrs.) [[id number]] Seasonal influenza vaccine, injectable, containing preservative, for > 3 years old (Afluria, FluLaval, Fluzone, Fluvirin, Fluarix, Agriflu(>= 18 yo)) Fluarix (>3 yrs.) [[id number]] Diagnostic Results Date Name Value Unit Range Description Lab Report: CBC, Comp. Metabolic Panel, Lipid Panel, Magnesium - Chemistry sodium, serum 138 mmol/L [phone]/09/02 carbon dioxide, venous blood 28.0 mmol/L 21.0-32 [...] 0.20 mg/dL 0.00-1.00 cholesterol, serum 228 mg/dL [phone]/09/02 triglyceride, serum, fasting 236 mg/dL 30-200 HDL [...] 0.36-3.74 Encounters Code Encounter Date Provider Facility CPT-37016 [id number] Vst-Est Level III 17:07:11 CDT Jenny Yang [facility] [place] CPT-58548 [id number] Vst-Est Level III 17:51:44 ACTIVITY DIRECTOR [place] [facility] CPT-70547 Level 3 Est. Patient 11:09:39 CDT Viviana Rubio [facility] CPT-85670 [id number] Vst-Est Level IV 09:14:31 CDT Conchis Yang [facility] [place] CPT-14902 [id number] Vst-Est Level III 22:05:50 CDT Jenny Yang [facility] [place] CPT-81547 Level 3 Est. Patient 15:00:02 ACTIVITY DIRECTOR Will jarquin [facility] CPT-19131 Level 2 Est. Patient 13:46:20 CDT Ashley peacock [facility] [place] CPT-09210 Level 2 Est. Patient 13:45:36 CDT Ashley Meraz [facility] [place] CPT-79266 Level 3 Est. Patient 15:52:07 CDT Ashley Meraz [facility] [place] CPT-99766 Level 3 Est. Patient 08:20:37 CDT Ashley Meraz [facility] [place] CPT-30832 Level 3 Est. Patient 15:06:41 CDT Derrick donaldson MD [facility] CPT-81968 Level 3 Est. Patient 11:13:21 ACTIVITY DIRECTOR Derrick donaldson MD [facility] CPT-26763 Level 3 Est. Patient 12:54:25 ACTIVITY DIRECTOR Ashley Meraz [facility] [place] CPT-07984 Level 3 Est. Patient 23:34:49 ACTIVITY DIRECTOR Ashley Meraz [facility] [place] CPT-77475 Level 3 Est. Patient 16:37:09 ACTIVITY DIRECTOR Ashley Meraz [facility] [place] CPT-76801 Level 3 Est. Patient 11:59:30 ACTIVITY DIRECTOR Ashley Meraz [facility] [place] CPT-82340 Level 4 Est. Patient 07:40:13 CDT Wayne delatorre [facility] [place] CPT-98037 Level 4 Est. Patient 08:06:18 CDT Wayne delatorre [facility] [place] [facility] CPT-15886 Level 3 Est. Patient 11:14:45 CDT Wayne delatorre [facility] [place] CPT-79526 Level 3 Est. Patient 10:14:55 CDT Wayne delatorre [facility] [place] CPT-23347 Level 4 Est. Patient 15:23:47 CDT Wayne delatorre PA [facility] CPT-12824 Level 3 Est. Patient 07:50:51 ACTIVITY DIRECTOR Wayne delatorre [facility] CPT-54942 Level 3 Est. Patient 14:47:52 CDT Wayne delatorre PA [facility] [place] CPT-64040 Level 3 Est. Patient 11:28:46 CDT Wayne delatorre PA [facility] [place] CPT-97234 Level 4 Est. Patient 14:48:43 CDT Wayne delatorre [facility] CPT-71823 Level 3 Est. Patient 14:10:18 ACTIVITY DIRECTOR Wayne delatorre PA [facility] [place] CPT-44455 Level 3 Est. Patient 16:44:33 ACTIVITY DIRECTOR Wayne delatorre [facility] CPT-47687 Level 4 Est. Patient 08:22:34 ACTIVITY DIRECTOR Wayne delatorre [facility] CPT-72053 Level 4 Est. Patient 07:10:30 CDT Wayne delatorre [facility] CPT-70783 Level 3 Est. Patient 14:50:20 ACTIVITY DIRECTOR Wayne delatorre PA [facility] [place] CPT-98843 Level 3 Est. Patient 09:46:08 ACTIVITY DIRECTOR Zuleika cha APRN [facility] [place] CPT-32182 Level 4 Est. Patient 07:56:24 ACTIVITY DIRECTOR Wayne delatorre [facility] CPT-35278 Level 3 Est. Patient 12:13:53 CDT Ismael Denton [facility] CPT-03709 Level 4 Est. Patient 12:28:51 ACTIVITY DIRECTOR Wayne delatorre [facility] CPT-90397 Level 3 Est. Patient 15:23:42 ACTIVITY DIRECTOR Wayne YANG [facility] [place] CPT-95095 Level 3 Est. Patient 06:34:33 ACTIVITY DIRECTOR Wayne YANG [facility] [place] Procedures Code Procedure Name Date Entry Date Standard Desc ription CPT-23337 Allergy Admin 2 16:51:42 CDT CPT-04475 Allergy Admin 2 16:26:50 CDT CPT-15051 Allergy Admin 2 17:02:53 CDT CPT-93337 Allergy Admin 2 16:32:35 CDT CPT-41731 Allergy Admin 2 16:26:27 CDT CPT-J3420 Vitamin B12 1000mcg (Cyanocobalamin) 16:32:13 CDT CPT-49618 Abx/Therapy Injection 16:32:13 CDT CPT-21804 Allergy Admin 2 16:32:12 CDT CPT-63173 Allergy Admin 2 16:05:03 CDT CPT-52114 Allergy Admin 2 16:35:15 CDT CPT-79821 Allergy Admin 2 16:20:41 CDT CPT-77841 Allergy Admin 2 11:25:21 CDT CPT-80180 Allergy Admin 2 15:46:12 CDT CPT-VI2802C (4274F) Influenza immunization administe red or previously received 17:51:44 ACTIVITY DIRECTOR CPT-92396 Spec Collection and Handling Fee 10:45:[address] [id number]-[id number] (4274F) Influenza immunization administe red or previously received 10:20:17 CDT CPT-85499 Prv Med Est Pt 40-64yrs 16:26:57 CDT CPT-90701 Venipuncture Draw Fee 11:08:31 CDT CPT-37016 Magnesium - LAB USE ONLY 11:08:31 CDT 10/15 CPT-58763 TSH - LAB USE ONLY 11:08:31 CDT CPT-86665 Lipid - LAB USE ONLY 11:08:30 CDT 2 CPT-12499 CMP - LAB USE ONLY 11:08:30 CDT CPT-22530 CBC - LAB USE ONLY 11:08:30 CDT CPT-21262 Spec Collection and Handling Fee 16:14:51 C DT CPT-02681 UA w micro - LAB USE ONLY 16:14:51 CDT 2018 CPT-14011 Prv Med Est Pt 40-64yrs 08:34:49 CDT 10/01 CPT-92730 Sed Rate - LAB USE ONLY 10:50:49 CDT 10/02 CPT-47856 TSH - LAB USE ONLY 10:50:49 CDT CPT-83624 Lipid - LAB USE ONLY 10:50:49 CDT 0 CPT-29380 Magnesium - LAB USE ONLY 10:50:49 CDT 10/02 CPT-11656 CMP - LAB USE ONLY 10:50:49 CDT CPT-91917 CBC - LAB USE ONLY 10:50:49 CDT CPT-14633 Venipuncture Draw Fee 10:50:49 CDT CPT-66758 IV Hydration < or = 1 hr 22:05:50 CDT 04/16 CPT-J7030 Normal Saline 1000 mL 22:05:50 CDT CPT-17279 Abx/Therapy Injection 16:31:51 ACTIVITY DIRECTOR CPT-J2950 Phenergan 25 mg 16:31:51 ACTIVITY DIRECTOR CPT-15629 Abx/Therapy Injection 16:39:40 CDT CPT-63125 First Vx - Ix admin via ID I M or jet injects without counseling by physician 16:39:39 CDT CPT-22161 Prv Med Est Pt 40-64yrs 16:33:10 CDT 11/10 CPT-JTINJ Asp/Joint Injection 16:13:36 CDT CPT-69144 Allergy Admin 2 16:54:52 CDT CPT-88215 Allergy Admin 2 16:46:15 CDT CPT-63648 Allergy Admin 2 11:29:09 CDT CPT-18388 Allergy Admin 2 17:05:15 CDT CPT-19085 Allergy Admin 2 12:31:51 CDT CPT-91216 Allergy Admin 2 15:40:56 CDT CPT-93720 CBC - LAB USE ONLY 09:49:24 CDT CPT-25201 CMP - LAB USE ONLY 09:49:24 CDT CPT-34116 Lipid - LAB USE ONLY 09:49:24 CDT 8 CPT-93630 Venipuncture Draw Fee 09:49:24 CDT CPT-83938 Allergy Admin 2 10:46:11 CDT CPT-JTINJ Asp/Joint Injection 09:52:58 CDT CPT-32834 Skin tag rem 1-15 13:46:20 CDT CPT-71170 Knee, right, 3V - XRAY USE ONLY 13:07:09 CD T CPT-45125 Allergy Admin 2 11:56:38 CDT CPT-58391 Allergy Admin 2 12:00:55 CDT CPT-54490 Allergy Admin 2 16:42:13 CDT CPT-24533 Allergy Admin 2 16:27:55 CDT CPT-63192 Allergy Admin 2 13:24:26 CDT CPT-46036 Allergy Admin 2 17:17:57 [facility] CPT-80508 Allergy Admin 2 16:23:22 [facility] CPT-08967 Allergy Admin 2 16:26:55 [facility] CPT-57547 Allergy Admin 2 16:32:33 [facility] CPT-79580 Allergy Admin 2 17:43:40 [facility] CPT-80013 Allergy Admin 2 16:26:07 [facility] CPT-58826 Allergy Admin 2 12:31:50 [facility] CPT-64118 Allergy Admin 2 16:40:38 [facility] CPT-65958 Allergy Admin 2 17:07:36 T CPT-G0008 Administration of Influenza Virus Vaccine 17:01:01 CDT CPT-49928 First Vx - Ix admin via ID I M or jet injects without counseling by physician 17:01:01 CDT CPT-13266 Allergy Admin 2 12:06:54 CDT CPT-12939 Allergy Admin 2 17:04:46 CDT CPT-95080 Allergy Admin 2 16:34:48 CDT CPT-15364 Allergy Admin 2 17:04:51 CDT CPT-83295 Allergy Admin 2 16:25:14 CDT CPT-99073 Allergy Admin 2 10:52:02 CDT CPT-65785 Allergy Admin 2 11:45:31 CDT CPT-67726 Allergy Admin 2 12:02:20 CDT CPT-61137 Allergy Admin 2 15:47:29 CDT CPT-79330 Allergy Admin 2 13:25:44 CDT CPT-43603 Allergy Admin 2 10:51:13 CDT CPT-85142 CBC - LAB USE ONLY 10:44:39 CDT CPT-28541 CMP - LAB USE ONLY 10:44:39 CDT CPT-82078 Lipid - LAB USE ONLY 10:44:39 CDT 9 CPT-36998 Venipuncture Draw Fee 10:44:38 CDT CPT-73773 Allergy Admin 2 12:25:22 CDT CPT-90803 Allergy Admin 2 12:41:34 CDT CPT-25800 Allergy Admin 2 15:29:46 CDT CPT-34013 Allergy Admin 2 14:46:53 CDT CPT-56485 Allergy Admin 2 14:16:16 CDT CPT-88912 Allergy Admin 2 16:55:26 CDT CPT-72126 Allergy Admin 2 10:12:02 CDT CPT-04460 Allergy Admin 2 14:53:56 CDT CPT-61251 Allergy Admin 2 17:01:54 CDT CPT-78371 Allergy Admin 2 09:36:02 CDT CPT-32362 Allergy Admin 2 16:53:26 [facility] CPT-75896 Allergy Admin 2 16:59:41 ACTIVITY DIRECTOR CPT-66644 Allergy Admin 2 16:36:44 [facility] CPT-32441 Allergy Admin 2 16:17:16 [facility] CPT-43165 Allergy Admin 2 17:08:10 [facility] CPT-79134 Allergy Admin 2 12:16:08 [facility] CPT-04868 Allergy Admin 2 16:47:30 [facility] CPT-03329 Allergy Admin 2 16:59:44 [facility] CPT-26179 Allergy Admin 2 12:48:53 [facility] CPT-72230 Allergy Admin 2 10:19:48 [facility] CPT-75599 Allergy Admin 2 12:40:17 [facility] CPT-96186 Abx/Therapy Injection 17:21:59 [facility] CPT-34326 First Vx - Ix admin via ID I M or jet injects without counseling by physician 17:21:57 ACTIVITY DIRECTOR CPT-56794 Allergy Admin 2 17:20:12 ACTIVITY DIRECTOR CPT-97865 Allergy Admin 2 11:12:50 [facility] CPT-49258 Allergy Admin 2 17:02:39 CDT CPT-35352 BMP - LAB USE ONLY 10:33:02 CDT CPT-83997 CBC - LAB USE ONLY 10:33:02 CDT CPT-57587 Venipuncture Draw Fee 10:33:02 CDT CPT-37068 Abx/Therapy Injection 12:29:08 CDT CPT-46600 Allergy Admin 2 10:39:48 CDT CPT-13375 Allergy Admin 2 10:55:47 CDT CPT-PV Prev. Care Visit 10:10:00 CDT CPT-06741 Allergy Admin 2 11:31:20 CDT CPT-67237 Allergy Admin 2 16:53:45 CDT CPT-61357 Allergy Admin 2 16:36:42 CDT CPT-09660 Allergy Admin 2 16:30:19 CDT CPT-93391 Allergy Admin 2 15:39:35 CDT CPT-35446 Allergy Admin 2 17:51:32 CDT CPT-04495 Allergy Admin 2 11:50:50 CDT CPT-PV Prev. Care Visit 14:09:05 CDT CPT-70985 Allergy Admin 2 13:37:39 CDT CPT-91256 Abx/Therapy Injection 12:17:43 CDT CPT-78161 Venipuncture Draw Fee 10:39:55 CDT CPT-19721 Allergy Admin 2 12:04:53 CDT CPT-44239 Allergy Admin 2 10:04:39 CDT CPT-33888 Allergy Admin 2 12:15:35 CDT CPT-49061 Allergy Admin 2 17:04:36 CDT CPT-04714 Allergy Admin 2 16:25:49 CDT CPT-78778 Allergy Admin 2 17:30:06 CDT CPT-01945 Allergy Admin 2 10:11:48 CDT CPT-23260 Allergy Admin 2 17:06:13 CDT CPT-43399 Abx/Therapy Injection 12:23:07 CDT CPT-J0702 Celestone 12 mg (Betamethasone) 12:23:07 CD T CPT-31058 Venipuncture Draw Fee 10:26:42 CDT CPT-69137 Allergy Admin 2 12:10:01 CDT CPT-19138 Allergy Admin 2 15:13:57 ACTIVITY DIRECTOR CPT-54946 Allergy Admin 2 16:55:22 ACTIVITY DIRECTOR CPT-62806 Allergy Admin 2 10:13:46 ACTIVITY DIRECTOR CPT-45527 Venipuncture Draw Fee 10:06:08 ACTIVITY DIRECTOR CPT-87256 Allergy Admin 2 16:15:41 ACTIVITY DIRECTOR CPT-17954 Allergy Admin 2 16:40:21 ACTIVITY DIRECTOR CPT-82475 Allergy Admin 2 16:31:48 ACTIVITY DIRECTOR CPT-31997 Allergy Admin 2 16:38:26 ACTIVITY DIRECTOR CPT-43232 Allergy Admin 2 16:40:08 ACTIVITY DIRECTOR CPT-98036 Allergy Admin 2 08:34:27 ACTIVITY DIRECTOR CPT-90852 Allergy Admin 2 14:27:45 ACTIVITY DIRECTOR CPT-08902 Destruction bgn lsn up to 14 09:41:27 ACTIVITY DIRECTOR 2 CPT-79697 Allergy Admin 2 17:45:17 ACTIVITY DIRECTOR CPT-31766 Allergy Admin 2 14:59:03 ACTIVITY DIRECTOR CPT-66278 Allergy Admin 2 12:49:42 CDT CPT-60917 Administration single or combination vac cine inc oral 15:01:57 CDT CPT-40130 Fluzone Quadrivalent Intramuscular Suspe nsion 0.5 ML 15:01:57 CDT CPT-67732 Allergy Admin 2 15:07:08 CDT CPT-04340 Allergy Admin 2 15:39:01 CDT CPT-20260 Allergy Admin 2 17:40:11 CDT CPT-55226 Allergy Admin 2 16:07:08 CDT CPT-42538 Allergy Admin 2 16:08:07 CDT CPT-33726 Venipuncture Draw Fee 09:34:29 CDT CPT-05626 Allergy Admin 2 16:27:43 CDT CPT-97479 Allergy Admin 2 15:53:10 CDT CPT-34108 Allergy Admin 2 15:42:29 CDT CPT-20616 Allergy Admin 2 11:26:14 CDT CPT-14860 Allergy Admin 2 10:36:24 CDT CPT-52196 Allergy Admin 2 16:53:37 CDT CPT-53764 Allergy Admin 2 11:21:44 CDT CPT-28602 Allergy Admin 2 10:50:40 CDT CPT-03105 Allergy Admin 2 11:19:11 CDT CPT-98835 Venipuncture Draw Fee 11:12:25 CDT CPT-81128 Allergy Admin 2 11:14:51 CDT CPT-58412 Allergy Admin 2 16:53:11 CDT CPT-32659 Allergy Admin 2 11:45:56 CDT CPT-74055 Allergy Admin 2 12:51:39 CDT CPT-49697 Allergy Admin 2 12:08:56 CDT CPT-85351 Allergy Admin 2 15:29:45 CDT CPT-09972 Allergy Admin 2 16:34:01 CDT CPT-49045 Allergy Admin 2 16:36:46 CDT CPT-44560 Allergy Admin 2 15:19:16 CDT CPT-81337 Allergy Admin 2 16:13:25 CDT CPT-72772 Allergy Admin 2 17:06:17 CDT CPT-45425 Allergy Admin 2 10:42:10 ACTIVITY DIRECTOR CPT-19493 Allergy Admin 2 17:33:16 ACTIVITY DIRECTOR CPT-47563 Allergy Admin 2 10:53:30 ACTIVITY DIRECTOR CPT-83625 Allergy Admin 2 14:18:24 ACTIVITY DIRECTOR CPT-74862 Allergy Admin 2 10:18:29 ACTIVITY DIRECTOR CPT-94850 Allergy Admin 2 12:57:40 ACTIVITY DIRECTOR CPT-00224 Allergy Admin 2 16:53:33 ACTIVITY DIRECTOR CPT-44487 Allergy Admin 2 12:43:00 ACTIVITY DIRECTOR CPT-51554 Allergy Admin 2 13:14:09 ACTIVITY DIRECTOR CPT-62999 Pneumovax 23 Injection Injectable 25 MCG /0.5ML 09:51:29 ACTIVITY DIRECTOR CPT-G0009 Administration of Pneumococcal Vaccine 09:51:29 ACTIVITY DIRECTOR CPT-18454 Influenza split virus > age 3 09:51:29 ACTIVITY DIRECTOR CPT-G0008 Administration of Influenza Virus Vaccine 02/23 09:51:29 ACTIVITY DIRECTOR CPT-84499 Venipuncture Draw Fee 10:31:06 CDT CPT-J0702 Celestone 12 mg (Betamethasone) 11:34:17 CD T CPT-59149 Abx/Therapy Injection 11:34:17 CDT CPT-48445 Chest 2V Frontal and Lat 11:31:47 CDT 07/04 CPT-03552 Venipuncture Draw Fee 11:31:47 CDT CPT-44317 Allergy Admin 2 14:31:05 CDT CPT-17714 EKG Trac and Interp 08:42:32 CDT CPT-75072 Chest 2V Frontal and Lat 08:42:32 CDT 05/28 CPT-80220 Venipuncture Draw Fee 08:39:02 CDT CPT-73080 Allergy Admin 2 16:59:09 CDT CPT-88744 Allergy Admin 2 17:06:11 CDT CPT-75446 Allergy Admin 2 16:04:36 CDT CPT-62713 Venipuncture Draw Fee 16:32:44 ACTIVITY DIRECTOR CPT-22768 Venipuncture Draw Fee 10:54:37 ACTIVITY DIRECTOR CPT-52640 Allergy Admin 2 14:53:55 ACTIVITY DIRECTOR CPT-84000 Allergy Admin 2 10:23:58 ACTIVITY DIRECTOR CPT-39852 First Vx Component - Ix admi n via ID IM or jet inj without physician counseling 15:34:26 ACTIVITY DIRECTOR CPT-51477 Fluzone (>=3 yrs.) 15:34:26 ACTIVITY DIRECTOR CPT-81639 Allergy Admin 2 15:56:02 ACTIVITY DIRECTOR CPT-66346 Allergy Admin 2 11:08:58 ACTIVITY DIRECTOR CPT-96325 Allergy Admin 2 10:51:36 ACTIVITY DIRECTOR CPT-95749 Allergy Admin 2 15:38:19 ACTIVITY DIRECTOR CPT-95766 Allergy Admin 2 15:12:46 CDT CPT-30400 Allergy Admin 2 10:28:50 CDT CPT-59750 Allergy Admin 2 16:35:33 CDT CPT-29323 Allergy Admin 2 10:14:18 CDT CPT-47092 Abx/Therapy Injection 09:06:45 CDT CPT-J0702 Celestone 6 mg (Betamethasone) 09:06:45 CDT CPT-71182 Allergy Admin 2 15:51:15 CDT CPT-56943 Allergy Admin 2 10:40:16 CDT CPT-32645 Allergy Admin 2 16:35:55 CDT CPT-66327 Allergy Admin 2 13:12:52 CDT CPT-44845 Allergy Admin 2 16:06:50 CDT CPT-93262 Allergy Admin 2 11:04:24 CDT CPT-32681 Allergy Admin 2 10:44:50 CDT CPT-61913 Allergy Admin 2 15:13:40 CDT CPT-68774 Allergy Admin 2 15:00:03 CDT CPT-04473 Allergy Admin 2 10:37:38 CDT CPT-34530 Venipuncture Draw Fee 09:16:43 ACTIVITY DIRECTOR CPT-93442 Allergy Admin 2 11:15:59 ACTIVITY DIRECTOR CPT-79752 Postop F/U Visit 10:10:52 ACTIVITY DIRECTOR CPT-56548 Allergy Admin 2 13:05:05 ACTIVITY DIRECTOR CPT-62671 Postop F/U Visit 19:45:16 ACTIVITY DIRECTOR CPT-85730 Allergy Admin 2 11:52:35 ACTIVITY DIRECTOR CPT-72132 Allergy Admin 2 10:49:22 ACTIVITY DIRECTOR CPT-OV Office Visit 13:55:55 ACTIVITY DIRECTOR CPT-28784 Allergy Admin 2 12:54:28 ACTIVITY DIRECTOR CPT-OV Office Visit 14:04:48 ACTIVITY DIRECTOR CPT-51671 Venipuncture Draw Fee 10:29:14 ACTIVITY DIRECTOR CPT-68477 Allergy Admin 2 11:24:43 ACTIVITY DIRECTOR CPT-68719 Knee 3V 11:00:12 ACTIVITY DIRECTOR CPT-23314 C-Spine Min 4V 11:00:12 ACTIVITY DIRECTOR CPT-47385 Allergy Admin 2 13:38:40 ACTIVITY DIRECTOR CPT-99748 Venipuncture Draw Fee 11:33:37 CDT CPT-21000 Allergy Admin 2 15:34:37 CDT CPT-91781 Allergy Admin 2 14:11:42 CDT CPT-88597 Administration single or combination vac cine inc oral 12:51:42 CDT CPT-00856 Influenza split virus > age 3 12:51:42 CDT CPT-62574 Allergy Admin 2 11:58:43 CDT CPT-40046 Allergy Admin 2 11:29:32 CDT CPT-29551 Allergy Admin 2 10:55:19 CDT CPT-87104 Allergy Admin 2 12:38:54 CDT CPT-62752 Allergy Admin 2 13:01:47 CDT CPT-01431 Abx/Therapy Injection 12:41:18 CDT CPT-J0702 Celestone 12 mg (Betamethasone) 12:41:18 CD T CPT-66123 Abx/Therapy Injection 16:33:09 CDT CPT-J0702 Celestone 12 mg (Betamethasone) 16:33:09 CD T CPT-75637 Allergy Admin 2 15:49:09 CDT CPT-77340 Allergy Admin 2 12:08:56 CDT CPT-79798 Allergy Admin 2 12:19:10 CDT CPT-82883 Allergy Admin 2 12:46:56 CDT CPT-10940 Allergy Admin 2 15:05:13 CDT CPT-76867 Allergy Admin 2 15:36:20 CDT CPT-80682 Allergy Admin 2 09:58:47 ACTIVITY DIRECTOR CPT-54600 Allergy Admin 2 12:18:06 ACTIVITY DIRECTOR CPT-99684 Allergy Admin 2 10:01:48 ACTIVITY DIRECTOR CPT-75962 Allergy Admin 2 12:17:53 ACTIVITY DIRECTOR CPT-85844 Allergy Admin 2 10:06:44 ACTIVITY DIRECTOR CPT-16376 Allergy Admin 2 10:13:04 ACTIVITY DIRECTOR CPT-14784 Venipuncture Draw Fee 10:09:07 ACTIVITY DIRECTOR CPT-60406 Bone Density 12:24:51 ACTIVITY DIRECTOR CPT-71841 Allergy Admin 2 11:29:41 ACTIVITY DIRECTOR CPT-72302 Allergy Admin 2 16:07:15 ACTIVITY DIRECTOR CPT-67074 Breathing Treatment 06:34:33 ACTIVITY DIRECTOR CPT-J0702 Celestone 12 mg (Betamethasone) 06:34:33 CS T CPT-78578 Abx/Therapy Injection 06:34:33 ACTIVITY DIRECTOR CPT-33065 Breathing Tx 11:07:33 ACTIVITY DIRECTOR CPT-52507 Allergy Admin 2 10:02:33 CDT CPT-39420 Allergy Admin 2 10:02:33 CDT CPT-16625 Allergy Admin 2 15:26:19 CDT CPT-28489 Administration single or combination vac cine inc oral 15:41:12 CDT CPT-37988 Influenza split virus > age 3 15:41:12 CDT
--- OUTSIDE RECORDS SUMMARY | 2020-09-15 14:39 | XMS REPORT | Clinical Summary ---
Author Author Admin, Supriya Zuniga Organization [facility] Address Unknown Phone Unavailable Allergies, Adverse Reactions, [...] Yang APRN Pruritus vulvae Active Ashley Yokum ENVIRONMENTAL CONSERVATION OFFICER Screening mammogram V76.12 Resolved Ashley Yokum A PRN Other screening mammogram Sinusitis, acute maxillary 461.0 Inactive 7 Ashley Yokum ENVIRONMENTAL CONSERVATION OFFICER Acute maxillary sinusitis Diarrhea, acute 787.91 Resolved Ashley Yokum ENVIRONMENTAL CONSERVATION OFFICER Diarrhea Vaginal candidiasis 112.1 Resolved Ashley Yokum A PRN Candidiasis of vulva and vagina Accidental fall E888.9 Resolved Ashley Yokum ENVIRONMENTAL CONSERVATION OFFICER Unspecified fall Contusion of left hand, initial encounter 923.20 Resol burak Ashley Yokum ENVIRONMENTAL CONSERVATION OFFICER Contusion of hand(s) Contusion of right upper arm, subsequent encounter V58.89 201 09/14/21 Resolved Ashley Yokum ENVIRONMENTAL CONSERVATION OFFICER Encounter for other specified a ftercare Ganglion cyst of left wrist 727.41 Active Derrick Younger MD Ganglion of joint Body Mass Index 31.0-31.9 Adult Resolved 2017 Ashley Yokum ENVIRONMENTAL CONSERVATION OFFICER Body Mass Index 31.0-31.9, adult Plantar fasciitis 728.71 Active Ashley Yokum ENVIRONMENTAL CONSERVATION OFFICER Plantar fascial fibromatosis Bronchitis, acute 466.0 Inactive Ashley Yokum APR N Acute bronchitis Body Mass Index 30.0-30.9 Adult Resolved 2017 Ashley Yokum ENVIRONMENTAL CONSERVATION OFFICER Body Mass Index 30.0-30.9, adult Allergic conjunctivitis, bilateral 372.14 Resolved 2 Ashley Yokum ENVIRONMENTAL CONSERVATION OFFICER Other chronic allergic conjunctivitis Skin tags; irritated/inflammed 701.9 Resolved 11/10 Ashley Yokum ENVIRONMENTAL CONSERVATION OFFICER Unspecified hypertrophic and atrophic co nditions of skin Body Mass Index 31.0-31.9 Adult Refinement 2017 Ashley Yokum ENVIRONMENTAL CONSERVATION OFFICER Body Mass Index 31.0-31.9, adult BMI 30-30.9 Refinement Ashley Yokum ENVIRONMENTAL CONSERVATION OFFICER Body Mass Index 31.0-31.9, adult BMI 31-31.9 Refinement Ashley Yokum ENVIRONMENTAL CONSERVATION OFFICER Body Mass Index 31.0-31.9, adult BMI 32-32.9 Refinement Lois Faith RN Body Mass Index 31.0-31.9, adult BMI 31-31.9 Active Viviana Rubio APRN-Julieta Body Mass Index 31.0-31.9, adult Major depression, recurrent, moderate 296.32 Active Ashley Yokum ENVIRONMENTAL CONSERVATION OFFICER Major depressive disorder, recurrent epi sode, moderate degree Obesity Class I (BMI 30-34.9) Active Ashley Y okum ENVIRONMENTAL CONSERVATION OFFICER Obesity, unspecified Nausea and vomiting 787.01 Resolved Ashley Yokum A PRN Nausea with vomiting Gastroenteritis acute 558.9 Resolved Ashley Yokum ENVIRONMENTAL CONSERVATION OFFICER Other and unspecified noninfectious gastroenteritis and colitis GERD 530.81 Active Ashley Yokum ENVIRONMENTAL CONSERVATION OFFICER E sophageal reflux Joint pain 719.40 Resolved Ashley Yokum ENVIRONMENTAL CONSERVATION OFFICER Pain in joint, site unspecified Preventive health care, adult V70.0 Inactive / Ashley Yokum ENVIRONMENTAL CONSERVATION OFFICER Routine general medical examination at a health care facility Blood in urine 599.70 Resolved Ashley Yokum ENVIRONMENTAL CONSERVATION OFFICER Hematuria, unspecified Other abnormal findings in urine Resolved Ashley Yokum ENVIRONMENTAL CONSERVATION OFFICER Urinary tract infection 599.0 Inactive Ashley Yok um ENVIRONMENTAL CONSERVATION OFFICER Urinary tract infection, site not specified Chafing of skin 709.8 Resolved Ashley Yokum ENVIRONMENTAL CONSERVATION OFFICER Other specified disorders of skin Preventive care V70.0 Active Supriya Huston A Routine general medical examination at a health care facility Gynecological examination, routine V72.3 Inactive 2 Ashley Yokum ENVIRONMENTAL CONSERVATION OFFICER Special investigations and e xaminations - Gynecological examination Near syncope 780.2 Resolved Ashley Yokum ENVIRONMENTAL CONSERVATION OFFICER Syncope and collapse Lightheadedness 780.4 Resolved Ashley Yokum ENVIRONMENTAL CONSERVATION OFFICER Dizziness and giddiness Headache 784.0 Resolved Ashley Yokum ENVIRONMENTAL CONSERVATION OFFICER Headache Sore throat 462 Resolved Ashley Yokum ENVIRONMENTAL CONSERVATION OFFICER Acute pharyngitis Sinusitis - acute 461.9 Resolved Ashley Yokum APR N Acute sinusitis, unspecified Tired all the time 780.79 Resolved Ashley Yokum AP RN Other malaise and fatigue Fatigue 780.79 Inactive Ashley Yokum ENVIRONMENTAL CONSERVATION OFFICER Other malaise and fatigue ABNORMAL WEIGHT GAIN ICD-783.1 Inactive Wayne YANG ALLERGIC RHINITIS ICD-477.9 Inactive Lois Angelo mendieta ENVIRONMENTAL CONSERVATION OFFICER SINUSITIS ICD-473.9 Inactive Lois Deric ENVIRONMENTAL CONSERVATION OFFICER 2012 WHEEZING ICD-786.07 Inactive Lois Deric ENVIRONMENTAL CONSERVATION OFFICER 2012 UPPER RESPIRATORY INFECTION, ACUTE ICD-465.9 I nactive Lois Deric ENVIRONMENTAL CONSERVATION OFFICER NEED FOR DESENSITIZATION TO ALLERGENS ICD-V07.1 8 Inactive Ashley Yokum ENVIRONMENTAL CONSERVATION OFFICER OBESITY ICD-278.00 Inactive Wayne YANG CONTACT DERMATITIS DUE TO POISON ARANZA ICD-692.6 Inactive Lois Leos ENVIRONMENTAL CONSERVATION OFFICER NEED PROPHYLACTIC VACCINATION&INOCULATION FLU ICD-V04.81 Inactive Wanye Harms PA GERD ICD-530.81 Inactive Lois Leos ENVIRONMENTAL CONSERVATION OFFICER 03/22 LONG-TERM (CURRENT) USE OF OTHER MEDICATIONS ICD-V58.69 6 Inactive Wayne Harms PA NECK PAIN ICD-723.1 Inactive Wayne Harms PA 06/15 DEGENERATIVE DISC DISEASE, CERVICAL SPINE ICD-722.4 Inactive Wayne Harms PA SKIN TAG ICD-701.9 Inactive Wayne Harms PA G E R D ICD-530.81 Inactive Lois Leos ENVIRONMENTAL CONSERVATION OFFICER CANDIDIASIS OF SKIN AND NAILS ICD-112.3 Inacti ve Wayne Harms PA AFTERCARE FOLLOW SURGERY MUSCULOSKEL SYSTEM NEC ICD-V58.78 Inactive Wayne Harms PA PHARYNGITIS ICD-462 Inactive Wayne Harms PA 05/03 OTHER SCREENING MAMMOGRAM ICD-V76.12 Inactive Wayne Harms PA DYSPAREUNIA, MILD ICD-625.0 Inactive Wayne Harm s PA CONTACT DERMATITIS DUE TO POISON ARANZA ICD-692.6 Inactive Wayne Harms PA Sinusitis, chronic ICD-473.9 Inactive Ashley Mir yoni ENVIRONMENTAL CONSERVATION OFFICER Myalgia ICD-729.1 Inactive Wayne Harms PA Rheumatoid [...] PA Runny nose ICD-472.0 Inactive Ashley Yang ENVIRONMENTAL CONSERVATION OFFICER Influenza like illness ICD-487.1 Inactive Wayne Moon PA Acute maxillary sinusitis ICD-461.0 Inactive Ashley Yokum ENVIRONMENTAL CONSERVATION OFFICER Preventive health care ICD-V70.0 Inactive Jenny mo Yokum ENVIRONMENTAL CONSERVATION OFFICER Well women exam ICD-V72.3 Inactive Ashley Yokum ENVIRONMENTAL CONSERVATION OFFICER Screening mammogram ICD-V76.12 Inactive Ashley Yokum ENVIRONMENTAL CONSERVATION OFFICER Sinusitis, acute maxillary ICD-461.0 Inactive Ashley Yokum ENVIRONMENTAL CONSERVATION OFFICER Diarrhea, acute ICD-787.91 Inactive Ashley Merazu m ENVIRONMENTAL CONSERVATION OFFICER Vaginal candidiasis ICD-112.1 Inactive Ashley coppolaum ENVIRONMENTAL CONSERVATION OFFICER Accidental fall ICD-E888.9 Inactive Ashley Yoku m ENVIRONMENTAL CONSERVATION OFFICER Contusion of left hand, initial encounter ICD-923.20 Inactive Ashley Yokum ENVIRONMENTAL CONSERVATION OFFICER Contusion of right upper arm, subsequent encounter ICD-V58.89 Inactive Ashley Yokum ENVIRONMENTAL CONSERVATION OFFICER Body Mass Index 31.0-31.9 Adult Inac tive Ashley Yokum ENVIRONMENTAL CONSERVATION OFFICER Bronchitis, acute ICD-466.0 Inactive Ashley Yok um ENVIRONMENTAL CONSERVATION OFFICER Body Mass Index 30.0-30.9 Adult Inac tive Ashley Yokum ENVIRONMENTAL CONSERVATION OFFICER Allergic conjunctivitis, bilateral ICD-372.14 I nactive Ashley Yokum ENVIRONMENTAL CONSERVATION OFFICER Skin tags; irritated/inflammed ICD-701.9 Inact rancho Ashley Yokum ENVIRONMENTAL CONSERVATION OFFICER Nausea and vomiting ICD-787.01 Inactive Ashley Yokum ENVIRONMENTAL CONSERVATION OFFICER Gastroenteritis acute ICD-558.9 Inactive Conchis hi Yokum ENVIRONMENTAL CONSERVATION OFFICER Joint pain ICD-719.40 Inactive Ashley Yokum APR N Preventive health care, adult ICD-V70.0 Inacti ve Ashley Yokum ENVIRONMENTAL CONSERVATION OFFICER Blood in urine ICD-599.70 Inactive Ashley Yokum ENVIRONMENTAL CONSERVATION OFFICER Other abnormal findings in urine [place] ctive Ashley Yokum ENVIRONMENTAL CONSERVATION OFFICER Urinary tract infection ICD-599.0 Inactive K athi Yokum ENVIRONMENTAL CONSERVATION OFFICER Chafing of skin ICD-709.8 Inactive Ashley Yokum ENVIRONMENTAL CONSERVATION OFFICER Gynecological examination, routine ICD-V72.3 I nactive Ashley Yokum ENVIRONMENTAL CONSERVATION OFFICER Near syncope ICD-780.2 Inactive Ashley Yokum AP RN Lightheadedness ICD-780.4 Inactive Ashley Yokum ENVIRONMENTAL CONSERVATION OFFICER Headache ICD-784.0 Inactive Ashley Yokum ENVIRONMENTAL CONSERVATION OFFICER 2020 Sore throat ICD-462 Inactive Ashley Yokum ENVIRONMENTAL CONSERVATION OFFICER 02/17/17 Sinusitis - acute ICD-461.9 Inactive Ashley Yok um ENVIRONMENTAL CONSERVATION OFFICER Tired all the time ICD-780.79 Inactive Ashley gutierrez ENVIRONMENTAL CONSERVATION OFFICER Fatigue ICD-780.79 Inactive Ashley Yang ENVIRONMENTAL CONSERVATION OFFICER 2020 Medication List Medication Instructions Start Date Stop Date Generic Name NDC Status Provider Patient Instruction ALPRAZOLAM 0.25 MG TABS TAKE 1 TO 2 TABLETS BY MOUTH THREE TIMES DAILY NEEDED ALPRAZOLAM 87315350400 Active Shanelle Rivera RN Active PHENTERMINE HCL 37.5 MG ORAL TABLET 1/2 qAM, can incre ase to 1 qAM - take 30 min before or 2 hrs after breakfast PHENTERMINE HCL 21414 468774 Active Ashley Yang APRN Active MUCINEX D 60-600 MG ORAL TABLET EXTENDED RELEASE 12 HO UR 1 po BID PRN Congestion PSEUDOEPHEDRINE-GUAIFENESIN 04750216175 Active Ashley Yang ENVIRONMENTAL CONSERVATION OFFICER Active ZYRTEC ALLERGY 10 MG ORAL CAPSULE 1qd CETIR IZINE HCL 62277930891 No Longer Active Ashley Yang ENVIRONMENTAL CONSERVATION OFFICER Active HAIR, SKIN, NAILS VITAMINS take 1 tab by mouth 2x a day HAIR, SKIN, NAILS VITAMINS Active Ashley Yang APRN Active CENTRUM SILVER FOR WOMEN OVER 50 1 tab by mouth by day. CENTRUM SILVER FOR WOMEN OVER 50 Active Ashley Yang APRN Active VITAMIN D3 1000 UNIT ORAL CAPSULE 1 po qd CH OLECALCIFEROL 75175983926 Active Ashley Yang ENVIRONMENTAL CONSERVATION OFFICER Active PREDNISONE 20 MG ORAL TABLET Take 2 tablets by mouth d aily for 2 days then 1 tablet daily for 2 days. PREDNISONE 21826738401 No Longer Active Ashley Yang ENVIRONMENTAL CONSERVATION OFFICER Active MELOXICAM 15 MG ORAL TABLET TAKE 1 TABLET BY MOUTH IN THE MORNING 2 MELOXICAM 64142121955 Active LARRY Murillo Active CLARITIN 10 MG ORAL TABLET 1 tablet by mouth daily as needed for allergies LORATADINE 41254240552 Active Supriya Betzaida RMA Active SIMVASTATIN 40 MG ORAL TABLET TAKE 1 TABLET BY MOUTH ONCE DA JAVON AT BEDTIME SIMVASTATIN 93985033859 Active Marcy Medina RMA Active YPWRRFV-FQUYGFPAN-SCFI ORAL TABLET MULT IPLE MINERALS 42169825814 Active Lois Faith, RN Active SERTRALINE HCL 100 MG ORAL TABLET Take 1 tablet by mouth once da javon SERTRALINE HCL 67622710926 Active Marcy Medina, RMA A ctive REGLAN 10 MG ORAL TABLET 1 po qid for bowels 3 METOCLOPRAMIDE HCL 33111350169 No Longer Active Ashley Yokum ELAINA A ctive ADK [id number] UNIT-MCG ORAL CAPSULE 1 daily VITAMINS A D K 45654103063 Active Ashley Yokum ENVIRONMENTAL CONSERVATION OFFICER Active B-12 2500 MCG ORAL TABLET 1 daily CYANOCOBAL HUNT 96340137856 No Longer Active Ashley Yokum ENVIRONMENTAL CONSERVATION OFFICER Active ESTRADIOL 2 MG TABS Take 1 tablet by mouth once daily ESTRADIOL 03812182019 Active Shanelle Nicole RN Active MACROBID 100 MG ORAL CAPSULE 1 cap by mouth twice daily NITROFURANTOIN MONOHYD MACRO 68428778032 No Longer Active Ashley Yokum ENVIRONMENTAL CONSERVATION OFFICER Active FISH OIL + D3 8129-2774 MG-UNIT ORAL CAPSULE 1 dailly 4 FISH OIL-CHOLECALCIFEROL 96260390830 Active Ashley Yokum ENVIRONMENTAL CONSERVATION OFFICER Acti ve PROAIR HFA 108 (90 BASE) MCG/ACT INHALATION AEROSOL SO LUTION 2 puffs four times a day as needed ALBUTEROL SULFATE 90185114470 No Long er Active Ashley Yokum ENVIRONMENTAL CONSERVATION OFFICER Active ZITHROMAX Z-SANJANA 250 MG ORAL TABLET Take 2 tablets toda y and 1 each day till gone AZITHROMYCIN 39725520737 No Longer Active Ashley Yokum ENVIRONMENTAL CONSERVATION OFFICER Active POLYTRIM 32616-1.1 UNIT/ML-% OPHTHALMIC SOLUTION 1 gtt to affected eye q3h x 7 days POLYMYXIN B-TRIMETHOPRIM 80849706657 No Longer Active Ashley Yokum ENVIRONMENTAL CONSERVATION OFFICER Active IBUPROFEN 200 MG ORAL TABLET Take 3 tablets every 6hrs 201 09/17/15 IBUPROFEN 76649925019 No Longer Active Ashley Yokum ENVIRONMENTAL CONSERVATION OFFICER Active DIFLUCAN 150 MG ORAL TABLET Take one tablet today and repeat in 72 hours FLUCONAZOLE 57610853609 No Longer Active Derrick cardenas MD Active DIFLUCAN 150 MG ORAL TABLET 1 by mouth for yeast 03/03 FLUCONAZOLE 72642536935 No Longer Active Ashley Yokum ENVIRONMENTAL CONSERVATION OFFICER Active AUGMENTIN 875-125 MG ORAL TABLET Take one tablet twice a day with food AMOXICILLIN-POT CLAVULANATE 28140986889 No Longer Act rancho Ashley Yokum ENVIRONMENTAL CONSERVATION OFFICER Active CALCIUM 600 + D 600-200 MG-UNIT ORAL TABLET Take one daily CALCIUM CARB-CHOLECALCIFEROL 13999812984 No Longer Active Ashley Yokum ENVIRONMENTAL CONSERVATION OFFICER Active FLONASE 50 MCG/ACT NASAL SUSPENSION 1 spray each nostr il twice daily for allergies and runny nose FLUTICASONE PROPIONATE 75989978174 No Longer Active Ashley Yokum ENVIRONMENTAL CONSERVATION OFFICER Active CLARITIN-D 12 HOUR 5-120 MG ORAL TABLET EXTENDED RELEA SE 12 HOUR Take one tablet BID as needed for allergies LORATADINE-PSEUDOEP HEDRINE 49605850502 No Longer Active Beth Naff DRUPAL WEB DEVELOPER Active AMOXICILLIN-POT CLAVULANATE 875-125 MG ORAL TABLET 1 pill by mouth twice daily AMOXICILLIN-POT CLAVULANATE 17558016958 No Longer Act rancho Ashley Yokum ENVIRONMENTAL CONSERVATION OFFICER Active AMOXICILLIN 500 MG ORAL CAPSULE Take 1 capsule by mout h three times a day X 10 days AMOXICILLIN 88497777080 No Longer Active Wayne Denys arms PA Active PROBIOTIC DAILY ORAL CAPSULE Take one daily PROBIO TIC PRODUCT 41030012120 Active Wayne Harms PA Active TYLENOL 325 MG ORAL TABLET Take 2 every 6hrs prn A CETAMINOPHEN 37890178015 Active Wayne Red PA Active ACETAMINOPHEN 500 MG ORAL TABLET prn RICH TAMINOPHEN 75174085507 No Longer Active Wayne Harms PA Active CLARITIN-D 12 HOUR 5-120 MG ORAL TABLET EXTENDED RELEA SE 12 HOUR Take one tablet bid LORATADINE-PSEUDOEPHEDRINE 46055636582 No Longe r Active Wayne Harms PA Active MOBIC 15 MG ORAL TABLET 1 tablet by mouth daily in am with PPI 2 MELOXICAM 15587547694 No Longer Active Wayne Harms PA Acti ve HYDROCORTISONE 2.5 % EXTERNAL CREAM Apply three times a day to affected area HYDROCORTISONE 34595426127 No Longer Active Wayne Harms PA Active VITAMIN D3 1000 UNIT ORAL TABLET Take two daily CHOLECALCIFEROL 17832451836 No Longer Active Wayne Harms PA Active PROBIOTIC ORAL CAPSULE Take one daily PROBIOTIC PRODUCT 19905619156 No Longer Active Wayne Harms PA Active GREEN TEA SLIM ORAL TABLET Take one daily [facility] NATURAL PRODUCTS 06779581071 No Longer Active Wayne Harms PA Active BENZONATATE 200 MG ORAL CAPSULE Take one capsule three times a d ay BENZONATATE 51993864350 No Longer Active Wayne Harms PA Act rancho ZITHROMAX Z-SANJANA 250 MG ORAL TABLET 2 today, then 1 daily for 4 d ays AZITHROMYCIN 39211011009 No Longer Active Wayne Harms PA Ac tive ZITHROMAX 250 MG ORAL TABLET 2 po today, then 1 po q days 2-5 20 31/03/18 AZITHROMYCIN 74435755350 No Longer Active Beth Turner DRUPAL WEB DEVELOPER Active OMEPRAZOLE 20 MG ORAL CAPSULE DELAYED RELEASE [address] [facility] daily OMEPRAZOLE 02160577646 Active Supriya Huston RMA Active ZITHROMAX Z-SANJANA 250 MG ORAL TABLET 2x1day,[id number] 2014 AZITHROMYCIN 29165001711 No Longer Active Wayne Harms PA Active FISH OIL 1200 MG ORAL CAPSULE One daily prn OME GA-3 FATTY ACIDS 82300182573 No Longer Active Wayne Harms PA Active CEPHALEXIN 250 MG ORAL CAPSULE Take one tablet qid 201 05/25/29 CEPHALEXIN 07905174648 No Longer Active Wayne Harms PA Active VITAMIN D3 1000 UNIT ORAL TABLET 1qd CHOLEC ALCIFEROL 79888998984 No Longer Active Wayne Harms PA Active B-12 2000 MCG ORAL TABLET 1qd CYANOCOBALAMI N 69620075180 No Longer Active Wayne Harms PA Active ACIPHEX 20 MG ORAL TABLET DELAYED RELEASE 1qd 10/28 RABEPRAZOLE SODIUM 53369710340 No Longer Active Wayne Harms PA Active HYDROCORTISONE 2.5 % EXTERNAL CREAM apply 3-4 times a day to affected area HYDROCORTISONE 35345170589 No Longer Active Wayne Harms PA Active MUCINEX 600 MG ORAL TABLET EXTENDED RELEASE 12 HOUR 2qd GUAIFENESIN 10674909175 No Longer Active Wayne Harms PA Active TUSSIONEX PENNKINETIC ER 10-8 MG/5ML ORAL SUSPENSION E XTENDED RELEASE 5ml po q12hr PRN Cough HYDROCOD POLST-CHLORPHEN POLST 5 4115602362 No Longer Active Wayne Harms PA Active ZITHROMAX 250 MG ORAL TABLET 2 po today, then 1 po q days 2-5 20 26/06/21 AZITHROMYCIN 06820267358 No Longer Active Wayne Harms PA Ac tive CLARITIN 10 MG ORAL TABLET one tablet daily THEO ATADINE 89522665604 No Longer Active Wayne Harms PA Active FLAGYL 500 MG ORAL TABLET 1 tablet by mouth three times daily 20 28/05/03 METRONIDAZOLE 38560922925 No Longer Active Wayne Harms PA A ctive CHERATUSSIN AC 100-10 MG/5ML ORAL SYRUP one teaspoon qid. 9 GUAIFENESIN-CODEINE 06539675641 No Longer Active Wayne Harms PA Act rancho VITAMIN D 1000 UNIT ORAL TABLET 1qd CHOLECA LCIFEROL 74726518419 No Longer Active Wayne Harms PA Active CYMBALTA 60 MG ORAL CAPSULE DELAYED RELEASE PARTICLES 1 cap by mouth daily DULOXETINE HCL 09880022356 No Longer Active Wayne Harms PA Active AMOXICILLIN 500 MG ORAL CAPSULE 2 caps tid for 10days AMOXICILLIN 76586145839 No Longer Active Wayne Harms PA Active CALCIUM + D 600-200 MG-UNIT TABS Take one by mouth daily CALCIUM CARBONATE-VITAMIN D 15918385728 No Longer Active Wayne Harms PA Active CENTRUM SILVER ADULT 50+ ORAL TABLET 1qd 2013 MULTIPLE VITAMINS-MINERALS 89729820111 No Longer Active Wayne Harms PA Active VENLAFAXINE HCL 75 MG ORAL TABLET 1tid VE NLAFAXINE HCL 21668132403 No Longer Active Wayne Harms PA Active CLARITIN 10 MG ORAL TABLET 1 tablet by mouth daily as needed for allergies LORATADINE 00380823134 No Longer Active Wayne Harms PA Acti ve HYDROCORTISONE 2.5 % EXTERNAL CREAM Apply four times a day to af fected area HYDROCORTISONE 06588378536 No Longer Active Wayne Harms PA Active ZITHROMAX 250 MG ORAL TABLET 2 po today, then 1 po q days 2-5 20 26/02/30 AZITHROMYCIN 85519259212 No Longer Active Wayne Harms PA Ac tive ZITHROMAX 250 MG ORAL TABLET 2 po today, then 1 po q days 2-5 20 27/02/16 AZITHROMYCIN 08965364569 No Longer Active Wayne Harms PA Ac tive CYMBALTA 30 MG ORAL CAPSULE DELAYED RELEASE PARTICLES 3 caps daily DULOXETINE HCL 87774555573 No Longer Active Wayne Harms PA Active CYMBALTA 60 MG ORAL CAPSULE DELAYED RELEASE PARTICLES one tablet daily, takes 30mg. with 60mg. to make 90 mg. DULOXETINE HCL 14381471398 No Longer Active Wayne Harms PA Active CYMBALTA 30 MG ORAL CAPSULE DELAYED RELEASE PARTICLES 1 daily wi th 60mg DULOXETINE HCL 68367663599 No Longer Active Wayne Harms PA Active ZITHROMAX 250 MG ORAL TABLET 2 po today, then 1 po q days 2-5 20 26/12/21 AZITHROMYCIN 20775574175 No Longer Active Ismael YANG Active PREDNISONE 20 MG ORAL TABLET 3tab x 2days,2tab x 2days ,1tab x 2days,1/2tab x 2days PREDNISONE 01556676349 No Longer Active Wayne Vera jarvis PA Active PREMARIN 0.625 MG ORAL TABLET Take one by mouth daily ESTROGENS CONJUGATED 77357609638 No Longer Active Wayne Harms PA Active ZITHROMAX 250 MG ORAL TABLET 2 po today, then 1 po q days 2-5 20 26/06/19 AZITHROMYCIN 92182146865 No Longer Active Nereyda Lucke Activ e OMEGA-3 1000 MG ORAL CAPSULE 2qd OMEGA-3 FA TTY ACIDS 50683834392 No Longer Active Wayne Harms PA Active BENADRYL ITCH STOPPING 1-0.1 % EXTERNAL CREAM prn DIPHENHYDRAMINE- ZINC ACETATE 48029511682 No Longer Active Wayne Harms PA Active LOTRISONE 1-0.05 % EXTERNAL CREAM Apply bid CLOTRIMAZOLE-BETAMETHASONE 68838576689 No Longer Active Wayne Harms PA Active ZITHROMAX Z-SANJANA 250 MG ORAL TABLET take as directed 20 26/04/19 AZITHROMYCIN 02663597032 No Longer Active Wayne Harms PA Active NYSTATIN 592601 UNIT/GM EXTERNAL POWDER Apply to affected areas BID NYSTATIN 26769175927 No Longer Active Wayne Harms PA Acti ve BENADRYL 25 MG ORAL CAPSULE prn DIPHENHYDRAMINE HCL 62808829296 Active Wayne Harms PA Active LOTRISONE 1-0.05 % EXTERNAL CREAM apply twice a day 20 25/02/17 CLOTRIMAZOLE-BETAMETHASONE 51325958917 No Longer Active Wayne Harms PA Active HYDROCODONE-ACETAMINOPHEN 5-325 MG ORAL TABLET 1-2 every 4hr s prn pain HYDROCODONE-ACETAMINOPHEN 89383554218 No Longer Activ e Wayne Harms PA Active VICODIN 5-300 MG ORAL TABLET 1-2 tabs every 6hrs as needed for p ain HYDROCODONE-ACETAMINOPHEN 94687587916 No Longer Active Wayne Harms PA Active BENADRYL 25 MG ORAL CAPSULE 1prn DIPHENHYDRA MINE HCL 47206371135 No Longer Active Jillina Frazell ENVIRONMENTAL CONSERVATION OFFICER Active ROBITUSSIN DM 100-10 MG/5ML ORAL SYRUP 2 teaspoons four times a day DEXTROMETHORPHAN-GUAIFENESIN 14911529376 No Longer Active Jillina Frazell ENVIRONMENTAL CONSERVATION OFFICER Active ACIPHEX 20 MG ORAL TABLET DELAYED RELEASE Take one by mouth daily RABEPRAZOLE SODIUM 01897758285 No Longer Active Jillina Frazell ENVIRONMENTAL CONSERVATION OFFICER Active TUMS 500 MG ORAL TABLET CHEWABLE prn SADIQ CIUM CARBONATE ANTACID 20645478629 No Longer Active Jillina Frazell ENVIRONMENTAL CONSERVATION OFFICER Active PEPTO-BISMOL 524 MG/30ML ORAL SUSPENSION prn 02/26 BISMUTH SUBSALICYLATE 71363244499 No Longer Active Jillina Frazell ENVIRONMENTAL CONSERVATION OFFICER Active BACTRIM DS 800-160 MG ORAL TABLET 1bid SULFAMETHOXAZOLE-TRIMETHOPRIM 48935554144 No Longer Active Beth Naff DRUPAL WEB DEVELOPER Active GAVISCON EXTRA RELIEF FORMULA CHEW prn A LUM HYDROXIDE-MAG CARBONATE CHEW 29549975340 Active Wayne Harms PA Active DIFLUCAN 150 MG ORAL TABLET 1stat FLUCONAZOL E 59864822104 No Longer Active Wayne Harms PA Active AUGMENTIN 875-125 MG ORAL TABLET 1 tab by mouth twice daily with food AMOXICILLIN-POT CLAVULANATE 54168212096 No Longer Act rancho Wayne Harms PA Active FLUTICASONE PROPIONATE 50 MCG/ACT NASAL SUSPENSION 1 t o 2 sprays each nostril twice a day FLUTICASONE PROPIONATE 54066028465 No Lo nger Active Wayne Harms PA Active HYDROCORTISONE 2.5 % EXTERNAL CREAM apply 2-4 times a day, a s directed, prn HYDROCORTISONE 32627295182 No Longer Active Wayne Harms PA Active ZITHROMAX Z-SANJANA 250 MG ORAL TABLET A ZITHROMYCIN 96453143317 No Longer Active Wayne Harms PA Active SIMVASTATIN 40 MG ORAL TABLET one tablet daily SIMVASTATIN 18580359313 No Longer Active Misty Yoo DRUPAL WEB DEVELOPER Active LOVASTATIN 40 MG ORAL TABLET Take one by mouth daily 12/11 LOVASTATIN 24740761232 No Longer Active Misty Yoo DRUPAL WEB DEVELOPER Active PREDNISONE 20 MG ORAL TABLET 2 PO qd x 2d, 1 PO qd x 2d, 1/2 PO qd x 2d PREDNISONE 06879634423 No Longer Active Ismael silva PA Active ZITHROMAX 250 MG ORAL TABLET two tablets now and one daily x 4 d ays AZITHROMYCIN 73663907728 No Longer Active Misty Yoo DRUPAL WEB DEVELOPER Active ZOLPIDEM TARTRATE 10MG TABS (ZOLPIDEM TARTRATE) 1 at bedtime as needed Active Supriya Betzaida RMA Active CLOBETASOL PROPIONATE 0.05 % EXTERNAL CREAM apply as directed CLOBETASOL PROPIONATE 96888003618 No Longer Active Wayne Harms PA A ctive CYMBALTA 30 MG ORAL CAPSULE DELAYED RELEASE PARTICLES takes 90mg qod alt with 60mg DULOXETINE HCL 17175336194 No Longer Active Wayne Harm s PA Active ZITHROMAX 250 MG ORAL TABLET 2 po today, then 1 po q days 2-5 20 12/24/14 AZITHROMYCIN 09415696474 No Longer Active Wayne Harms PA Ac tive TRIAMCINOLONE ACETONIDE 0.1 % EXTERNAL CREAM apply qid TRIAMCINOLONE ACETONIDE 37264137154 No Longer Active Wayne Harms PA Active ALPRAZOLAM 0.25 MG ORAL TABLET 1 tab three times a day 201 02/23/14 ALPRAZOLAM 21610969993 No Longer Active Wayne Harms PA Active ZOLPIDEM TARTRATE 5 MG ORAL TABLET 1 at bedtime as needed ZOLPIDEM TARTRATE 51679775548 No Longer Active Beth Turner DRUPAL WEB DEVELOPER Active ALPRAZOLAM 0.25 MG ORAL TABLET 1 tab three times a day ALPRAZOLAM 0.25 MG ORAL TABLET 003020 ALPRAZOLAM Inactive TRIAMCINOLONE ACETONIDE 0.1 % EXTERNAL CREAM apply qid TRIAMCINOLONE ACETONIDE 0.1 % EXTERNAL CREAM 9942770 TRIAMCINOLONE A CETONIDE Inactive CYMBALTA 30 MG ORAL CAPSULE DELAYED RELEASE PARTICLES takes 90mg qod alt with 60mg CYMBALTA 30 MG ORAL CAPSULE DELAYED RELEA SE PARTICLES 336703 DULOXETINE HCL Inactive CLOBETASOL PROPIONATE 0.05 % EXTERNAL CREAM apply as directed CLOBETASOL PROPIONATE 0.05 % EXTERNAL CREAM 950941 CLOBETASOL PROPI KELVIN Inactive LOVASTATIN 40 MG ORAL TABLET Take one by mouth daily 2 LOVASTATIN 40 MG ORAL TABLET 777077 LOVASTATIN Inactive ZITHROMAX Z-SANJANA 250 MG ORAL TABLET 03/03 ZITHROMAX Z-SANJANA 250 MG ORAL TABLET 936762 AZITHROMYCIN Inactive HYDROCORTISONE 2.5 % EXTERNAL CREAM apply 2-4 times a day, a s directed, prn HYDROCORTISONE 2.5 % EXTERNAL CREAM 034112 HYDRO CORTISONE Inactive FLUTICASONE PROPIONATE 50 MCG/ACT NASAL SUSPENSION 1 t o 2 sprays each nostril twice a day FLUTICASONE PROPIONA TE 50 MCG/ACT NASAL SUSPENSION 5296592 FLUTICASONE PROPIONATE Inactive AUGMENTIN 875-125 MG ORAL TABLET 1 tab by mouth twice daily with food AUGMENTIN 875-125 MG ORAL TABLET AMOXICIL BLOSSOM-POT CLAVULANATE Inactive DIFLUCAN 150 MG ORAL TABLET 1stat DIFLUCAN 150 MG ORAL TABLET 354896 FLUCONAZOLE Inactive PEPTO-BISMOL 524 MG/30ML ORAL SUSPENSION prn PEPTO-BISMOL 524 MG/30ML ORAL SUSPENSION BISMUTH SUBSALICYLATE Inactive TUMS 500 MG ORAL TABLET CHEWABLE prn TUMS 500 MG ORAL TABLET CHEWABLE 977192 CALCIUM CARBONATE ANTACID Inactive ACIPHEX 20 MG ORAL TABLET DELAYED RELEASE Take one by mouth daily ACIPHEX 20 MG ORAL TABLET DELAYED RELEASE 958648 RABEPRAZOLE SODIUM Inactive ROBITUSSIN DM 100-10 MG/5ML [...] pain HYDROCODONE-ACETAMINOPHEN 5-325 MG ORAL TABLET 8 40978 HYDROCODONE-ACETAMINOPHEN Inactive LOTRISONE 1-0.05 % EXTERNAL CREAM apply twice a day 20 25/02/17 LOTRISONE 1- 0.05 % EXTERNAL CREAM CLOTRIMAZOLE-BETAMETHASONE Inactive NYSTATIN 308125 UNIT/GM EXTERNAL POWDER Apply to affected areas BID NYSTATIN 627168 UNIT/GM EXTERNAL POWDER 520875 NYSTATIN Inactive ZITHROMAX Z-SANJANA 250 MG ORAL TABLET take as directed 20 26/04/19 ZITHROMAX Z-SANJANA 250 MG ORAL TABLET 717606 AZITHROMYCIN Inact [place] LOTRISONE 1-0.05 % EXTERNAL CREAM Apply bid LOTRISONE 1- 0.05 % EXTERNAL CREAM CLOTRIMAZOLE-BETAMETHASONE Inactive BENADRYL ITCH STOPPING 1-0.1 % EXTERNAL CREAM prn BENADRYL ITCH STOPPING 1-0.1 % EXTERNAL CREAM DIPHENHYDRAMINE-ZINC ACETATE Inactive OMEGA-3 1000 MG ORAL CAPSULE 2qd OMEGA-3 1000 MG ORAL CAPSULE 925870 OMEGA-3 FATTY ACIDS Inactive ZITHROMAX 250 MG ORAL TABLET 2 po today, then 1 po q days 2-5 20 26/06/19 ZITHROMAX 250 MG ORAL TABLET 620309 AZITHROMYCIN [place] ctive PREMARIN 0.625 MG ORAL TABLET Take one by mouth daily PREMARIN 0.625 MG ORAL TABLET ESTROGENS CONJUGATED Inactive PREDNISONE 20 MG ORAL TABLET 3tab x 2days,2tab x 2days ,1tab x 2days,1/2tab x 2days PREDNISONE 20 MG ORAL TABLET 596849 PREDNIS ONE Inactive CYMBALTA 30 MG ORAL CAPSULE DELAYED RELEASE PARTICLES 1 daily wi th 60mg CYMBALTA 30 MG ORAL CAPSULE DELAYED RELEASE PARTICLES 813084 DULOXETINE HCL Inactive CYMBALTA 60 MG ORAL CAPSULE DELAYED RELEASE PARTICLES one tablet daily, takes 30mg. with 60mg. to make 90 mg. CYMBALTA 60 MG ORAL CAPSULE DELAYED RELEASE PARTICLES 174933 DULOXETINE HCL Inacti ve CYMBALTA 30 MG ORAL CAPSULE DELAYED RELEASE PARTICLES 3 caps daily CYMBALTA 30 MG ORAL CAPSULE DELAYED RELEASE PARTICLES 961510 DULOXE ROSANNE HCL Inactive HYDROCORTISONE 2.5 % EXTERNAL CREAM Apply four times a day to af fected area HYDROCORTISONE 2.5 % EXTERNAL CREAM 410374 HYDROCORTISO NE Inactive CLARITIN 10 MG ORAL TABLET 1 tablet by mouth daily as needed for allergies CLARITIN 10 MG ORAL TABLET 185426 LORATADINE Inact [place] VENLAFAXINE HCL 75 MG ORAL TABLET 1tid VENLAFAXINE HCL 75 MG ORAL TABLET 743950 VENLAFAXINE HCL Inactive CENTRUM SILVER ADULT 50+ ORAL TABLET 1qd 2013 CENTRUM SILVER ADULT 50+ ORAL TABLET MULTIPLE VITAMINS-MINERALS Inactive CALCIUM + D 600-200 MG-UNIT TABS Take one by mouth daily CALCIUM + D 600-200 MG-UNIT TABS CALCIUM CARBONATE-VITAMIN D Inactive AMOXICILLIN 500 MG ORAL CAPSULE 2 caps tid for 10days AMOXICILLIN 500 MG ORAL CAPSULE 877470 AMOXICILLIN Inactive CYMBALTA 60 MG ORAL CAPSULE DELAYED RELEASE PARTICLES 1 cap by mouth daily CYMBALTA 60 MG ORAL CAPSULE DELAYED RELE ASE PARTICLES 656663 DULOXETINE HCL Inactive VITAMIN D 1000 UNIT ORAL TABLET 1qd 4 VITAMIN D 1000 UNIT ORAL TABLET CHOLECALCIFEROL Inactive CHERATUSSIN AC 100-10 MG/5ML ORAL SYRUP one teaspoon qid. 9 CHERATUSSIN AC 100-10 MG/5ML ORAL SYRUP GUAIFENESIN-CODEINE Inactive FLAGYL 500 MG ORAL TABLET 1 tablet by mouth three times daily 20 28/05/03 FLAGYL 500 MG ORAL TABLET 466447 METRONIDAZOLE Inacti ve CLARITIN 10 MG ORAL TABLET one tablet daily CLARITIN 10 MG ORAL TABLET 338618 LORATADINE Inactive TUSSIONEX PENNKINETIC ER 10-8 MG/5ML [...] affected area HYDROCORTISONE 2.5 % EXTERNAL CREAM 092085 HYDRO CORTISONE Inactive ACIPHEX 20 MG ORAL TABLET DELAYED RELEASE 1qd ACIPHEX 20 MG ORAL TABLET DELAYED RELEASE 998586 RABEPRAZOLE SODIUM Inactive B-12 2000 MCG ORAL TABLET 1qd B-12 2000 MCG ORAL TABLET CYANOCOBALAMIN Inactive VITAMIN D3 1000 UNIT ORAL TABLET 1qd VITAMIN D3 1000 UNIT ORAL TABLET CHOLECALCIFEROL Inactive CEPHALEXIN 250 MG ORAL CAPSULE Take one tablet qid 201 05/25/29 CEPHALEXIN 250 MG ORAL CAPSULE 277425 CEPHALEXIN Inactive FISH OIL 1200 MG ORAL CAPSULE One daily prn FISH OIL 1200 MG ORAL CAPSULE OMEGA-3 FATTY ACIDS Inactive ZITHROMAX Z-SANJANA 250 MG ORAL TABLET 2x1day,3a5zuah 2014 ZITHROMAX Z-SANJANA 250 MG ORAL TABLET 475956 AZITHROMYCIN [place]act [place] BENZONATATE 200 MG ORAL CAPSULE Take one capsule three times a d ay BENZONATATE 200 MG ORAL CAPSULE 128683 BENZONATATE Inactive GREEN TEA SLIM ORAL TABLET Take one daily GREEN TEA SLIM ORAL TABLET MISC NATURAL PRODUCTS Inactive PROBIOTIC ORAL CAPSULE Take one daily PROBIOTIC ORAL CAPSULE 2462231 PROBIOTIC PRODUCT Inactive VITAMIN D3 1000 UNIT ORAL TABLET Take two daily 05/05 VITAMIN D3 1000 UNIT ORAL TABLET CHOLECALCIFEROL Inactive HYDROCORTISONE 2.5 % EXTERNAL CREAM Apply three times a day to affected area HYDROCORTISONE 2.5 % EXTERNAL CREAM 197462 HYDRO CORTISONE Inactive MOBIC 15 MG ORAL TABLET 1 tablet by mouth daily in am with PPI 2 MOBIC 15 MG ORAL TABLET 866892 MELOXICAM Inactive CLARITIN-D 12 HOUR 5-120 MG ORAL TABLET EXTENDED RELEA SE 12 HOUR Take one tablet bid CLARITIN-D 12 HOUR 5 -120 MG ORAL TABLET EXTENDED RELEASE 12 HOUR LORATADINE-PSEUDOEPHEDRINE Inactive ACETAMINOPHEN 500 MG ORAL TABLET prn ACETAMINOPHEN 500 MG ORAL TABLET 567304 ACETAMINOPHEN Inactive CLARITIN-D 12 HOUR 5-120 MG [...] yeast 03/03 DIFLUCAN 150 MG ORAL TABLET 550551 FLUCONAZOLE Inactive DIFLUCAN 150 MG ORAL TABLET Take one tablet today and repeat in 72 hours DIFLUCAN 150 MG ORAL TABLET 397024 FLUCONAZOLE Inactive IBUPROFEN 200 MG ORAL TABLET Take 3 tablets every 6hrs IBUPROFEN 200 MG ORAL TABLET 900326 IBUPROFEN Inactive ZITHROMAX Z-SANJANA 250 MG ORAL TABLET Take 2 tablets toda y and 1 each day till gone ZITHROMAX Z-SANJANA 250 MG ORAL TABLET 632452 A ZITHROMYCIN Inactive PROAIR HFA 108 (90 [...] bowels 3 REGLAN 10 MG ORAL TABLET 052823 METOCLOPRAMIDE HCL Inactive PREDNISONE 20 MG ORAL TABLET Take 2 tablets by mouth d aily for 2 days then 1 tablet daily for 2 days. PREDNISONE 20 MG ORAL T ABLET 695675 PREDNISONE Inactive ZYRTEC ALLERGY 10 MG ORAL CAPSULE 1qd ZYRTEC ALLERGY 10 MG ORAL CAPSULE CETIRIZINE HCL Inactive ZITHROMAX 250 MG ORAL TABLET 2 po today, then 1 po q days 2-5 20 12/24/14 ZITHROMAX 250 MG ORAL TABLET 759018 AZITHROMYCIN [place] ctive ZITHROMAX 250 MG ORAL TABLET two tablets now and one daily x 4 d ays ZITHROMAX 250 MG ORAL TABLET 976259 AZITHROMYCIN [place] ctive PREDNISONE 20 MG ORAL TABLET 2 PO qd x 2d, 1 PO qd x 2d, 1/2 PO qd x 2d PREDNISONE 20 MG ORAL TABLET 847459 PREDNISONE Inactive SIMVASTATIN 40 MG ORAL TABLET one tablet daily SIMVASTATIN 40 MG ORAL TABLET 985099 SIMVASTATIN Inactive BACTRIM DS 800-160 MG ORAL TABLET 1bid BACTRIM DS 800-160 MG ORAL TABLET 340058 SULFAMETHOXAZOLE-TRIMETHOPRIM Inactive ZITHROMAX 250 MG ORAL TABLET 2 po today, then 1 po q days 2-5 20 26/12/21 ZITHROMAX 250 MG ORAL TABLET 156534 AZITHROMYCIN [place] ZITHROMAX 250 MG ORAL TABLET 2 po today, then 1 po q days 2-5 20 27/02/16 ZITHROMAX 250 MG ORAL TABLET 884113 AZITHROMYCIN [place] ZITHROMAX 250 MG ORAL TABLET 2 po today, then 1 po q days 2-5 20 26/02/30 ZITHROMAX 250 MG ORAL TABLET 163048 AZITHROMYCIN [place] ZITHROMAX 250 MG ORAL TABLET 2 po today, then 1 po q days 2-5 20 26/06/21 ZITHROMAX 250 MG ORAL TABLET 321155 AZITHROMYCIN [place] ctive ZITHROMAX 250 MG ORAL TABLET 2 po today, then 1 po q days 2-5 20 31/03/18 ZITHROMAX 250 MG ORAL TABLET 421853 AZITHROMYCIN [place] ctive ZITHROMAX Z-SANJANA 250 MG ORAL TABLET 2 today, then 1 daily for 4 d ays ZITHROMAX Z-SANJANA 250 MG ORAL TABLET 301349 AZITHROMYCIN Inactive AMOXICILLIN 500 MG ORAL CAPSULE Take 1 capsule by mout h three times a day X 10 days AMOXICILLIN 500 MG ORAL CAPSULE 906771 AMOX ICILLIN Inactive AMOXICILLIN-POT CLAVULANATE 875-125 MG ORAL TABLET 1 pill by mouth twice daily AMOXICILLIN-POT CLAVULANATE 875-125 MG ORAL TABL ET 816790 AMOXICILLIN-POT CLAVULANATE Inactive AUGMENTIN 875-125 MG ORAL TABLET Take one tablet twice a day with food AUGMENTIN 875-125 MG ORAL TABLET AMOXICILLIN-POT CLAVULANATE Inactive POLYTRIM 60733-8.1 UNIT/ML-% OPHTHALMIC SOLUTION 1 gtt to affected eye q3h x 7 days POLYTRIM 99413-6.1 UNIT/ML-% OPH THALMIC SOLUTION 896435 POLYMYXIN B-TRIMETHOPRIM Inactive MACROBID 100 MG ORAL CAPSULE 1 cap by mouth twice daily MACROBID 100 MG ORAL CAPSULE 5301836 NITROFURANTOIN MONOHYD MACRO In active Advance Directives [...] Fluarix, Agriflu(>= 18 yo)) Fluzone (>=3 yrs.) [[id number]] Seasonal influenza vaccine, injectable, containing preservative, for > 3 years old (Afluria, FluLaval, Fluzone, Fluvirin, Fluarix, Agriflu(>= 18 yo)) Fluzone (>3 yrs.) [[id number]] Seasonal influenza vaccine, injectable, containing preservative, for > 3 years old (Afluria, FluLaval, Fluzone, Fluvirin, Fluarix, Agriflu(>= 18 yo)) Fluarix (>3 yrs.) [[id number]] Diagnostic Results Date Name Value Unit Range Description Lab Report: CBC, Comp. Metabolic Panel, Lipid Panel, Magnesium - Chemistry sodium, serum 138 mmol/L 099-753 8678/09/02 carbon dioxide, venous blood 28.0 mmol/L 21.0-32 [...] 0.20 mg/dL 0.00-1.00 cholesterol, serum 228 mg/dL 699-132 6183/09/02 triglyceride, serum, fasting 236 mg/dL 30-200 HDL [...] 0.36-3.74 Encounters Code Encounter Date Provider Facility CPT-02312 [id number] Vst-Est Level III 17:07:11 CDT Jenny Yang [facility] [place] CPT-09171 [id number] Vst-Est Level III 17:51:44 RETAIL BAKERY MANAGER [facility] CPT-61499 Level 3 Est. Patient 11:09:39 CDT Viviana [facility] CPT-42968 [id number] Vst-Est Level IV 09:14:31 CDT Conchis Yang [facility] [place] CPT-48979 [id number] Vst-Est Level III 22:05:50 CDT Jenny Yang [facility] [place] CPT-13257 Level 3 Est. Patient 15:00:02 RETAIL BAKERY MANAGER Will jarquin [facility] CPT-04030 Level 2 Est. Patient 13:46:20 CDT Ashley peacock [facility] [place] CPT-34830 Level 2 Est. Patient 13:45:36 CDT Ashley Meraz [facility] [place] CPT-99452 Level 3 Est. Patient 15:52:07 CDT Ashley Meraz [facility] [place] CPT-56012 Level 3 Est. Patient 08:20:37 CDT Ashley Meraz [facility] [place] CPT-96817 Level 3 Est. Patient 15:06:41 CDT Derrick donaldson MD [facility] [place] CPT-12413 Level 3 Est. Patient 11:13:21 RETAIL BAKERY MANAGER Derrick donaldson MD [facility] [place] CPT-30679 Level 3 Est. Patient 12:54:25 RETAIL BAKERY MANAGER Ashley Meraz [facility] [place] CPT-34378 Level 3 Est. Patient 23:34:49 RETAIL BAKERY MANAGER Ashley Meraz [facility] [place] CPT-40566 Level 3 Est. Patient 16:37:09 RETAIL BAKERY MANAGER Ashley Meraz [facility] [place] CPT-08824 Level 3 Est. Patient 11:59:30 RETAIL BAKERY MANAGER Ashley Meraz [facility] [place] CPT-98971 Level 4 Est. Patient 07:40:13 CDT Wayne delatorre [facility] [place] CPT-07115 Level 4 Est. Patient 08:06:18 CDT Wayne delatorre [facility] [place] [facility] CPT-37868 Level 3 Est. Patient 11:14:45 CDT Wayne delatorre [facility] [place] CPT-13496 Level 3 Est. Patient 10:14:55 CDT Wayne delatorre [facility] [place] CPT-38772 Level 4 Est. Patient 15:23:47 CDT [facility] CPT-31835 Level 3 Est. Patient 07:50:51 RETAIL BAKERY MANAGER Wayne delatorre [facility] [place] CPT-97842 Level 3 Est. Patient 14:47:52 CDT Wayne delatorre PA [facility] CPT-65115 Level 3 Est. Patient 11:28:46 CDT Wayne delatorre PA [facility] CPT-07263 Level 4 Est. Patient 14:48:43 CDT Wayne delatorre [facility] CPT-48434 Level 3 Est. Patient 14:10:18 RETAIL BAKERY MANAGER Wayne YANG [facility] CPT-25814 Level 3 Est. Patient 16:44:33 RETAIL BAKERY MANAGER Wayne delatorre PA [facility] CPT-36729 Level 4 Est. Patient 08:22:34 RETAIL BAKERY MANAGER Wayne delatorre [facility] CPT-14048 Level 4 Est. Patient 07:10:30 CDT Wayne delatorre [facility] [place] CPT-95814 Level 3 Est. Patient 14:50:20 RETAIL BAKERY MANAGER Wayne delatorre PA [facility] CPT-53266 Level 3 Est. Patient 09:46:08 RETAIL BAKERY MANAGER Zuleika cha APRN [facility] CPT-97422 Level 4 Est. Patient 07:56:24 RETAIL BAKERY MANAGER Wayne delatorre [facility] [place] CPT-45109 Level 3 Est. Patient 12:13:53 CDT Ismael Denton [facility] [place] CPT-17288 Level 4 Est. Patient 12:28:51 RETAIL BAKERY MANAGER Wayne delatorre [facility] [place] CPT-90007 Level 3 Est. Patient 15:23:42 RETAIL BAKERY MANAGER Wayne delatorre TREY [facility] CPT-64105 Level 3 Est. Patient 06:34:33 RETAIL BAKERY MANAGER Wayne delatorre TRE[facility] Procedures Code Procedure Name Date Entry Date Standard Desc ription CPT-59063 Allergy Admin 2 16:26:50 CDT CPT-46376 Allergy Admin 2 17:02:53 CDT CPT-44459 Allergy Admin 2 16:32:35 CDT CPT-00273 Allergy Admin 2 16:26:27 CDT CPT-J3420 Vitamin B12 1000mcg (Cyanocobalamin) 16:32:13 CDT CPT-03480 Abx/Therapy Injection 16:32:13 CDT CPT-40917 Allergy Admin 2 16:32:12 CDT CPT-38364 Allergy Admin 2 16:05:03 CDT CPT-98265 Allergy Admin 2 16:35:15 CDT CPT-89262 Allergy Admin 2 16:20:41 CDT CPT-45222 Allergy Admin 2 11:25:21 CDT CPT-66341 Allergy Admin 2 15:46:12 CDT CPT-MN3495E (4274F) Influenza immunization administe red or previously received 17:51:44 RETAIL BAKERY MANAGER CPT-72643 Spec Collection and Handling Fee 10:45:[address] CPT-[id number] (4274F) Influenza immunization administe red or previously received 10:20:17 CDT CPT-42360 Prv Med Est Pt 40-64yrs 16:26:57 CDT CPT-16493 Venipuncture Draw Fee 11:08:31 CDT CPT-78616 Magnesium - LAB USE ONLY 11:08:31 CDT 10/15 CPT-25467 TSH - LAB USE ONLY 11:08:31 CDT CPT-28525 Lipid - LAB USE ONLY 11:08:30 CDT 2 CPT-39244 CMP - LAB USE ONLY 11:08:30 CDT CPT-40097 CBC - LAB USE ONLY 11:08:30 CDT CPT-88952 Spec Collection and Handling Fee 16:14:51 C DT CPT-76674 UA w micro - LAB USE ONLY 16:14:51 CDT 2018 CPT-65877 Prv Med Est Pt 40-64yrs 08:34:49 CDT 10/01 CPT-12420 Sed Rate - LAB USE ONLY 10:50:49 CDT 10/02 CPT-92911 TSH - LAB USE ONLY 10:50:49 CDT CPT-93502 Lipid - LAB USE ONLY 10:50:49 CDT 0 CPT-85940 Magnesium - LAB USE ONLY 10:50:49 CDT 10/02 CPT-12611 CMP - LAB USE ONLY 10:50:49 CDT CPT-30334 CBC - LAB USE ONLY 10:50:49 CDT CPT-25436 Venipuncture Draw Fee 10:50:49 CDT CPT-00362 IV Hydration < or = 1 hr 22:05:50 CDT 04/16 CPT-J7030 Normal Saline 1000 mL 22:05:50 CDT CPT-19456 Abx/Therapy Injection 16:31:51 RETAIL BAKERY MANAGER CPT-J2950 Phenergan 25 mg 16:31:51 RETAIL BAKERY MANAGER CPT-85755 Abx/Therapy Injection 16:39:40 CDT CPT-56018 First Vx - Ix admin via ID I M or jet injects without counseling by physician 16:39:39 CDT CPT-02885 Prv Med Est Pt 40-64yrs 16:33:10 CDT 11/10 CPT-JTINJ Asp/Joint Injection 16:13:36 CDT CPT-94447 Allergy Admin 2 16:54:52 CDT CPT-41713 Allergy Admin 2 16:46:15 CDT CPT-58019 Allergy Admin 2 11:29:09 CDT CPT-71859 Allergy Admin 2 17:05:15 CDT CPT-82476 Allergy Admin 2 12:31:51 CDT CPT-81065 Allergy Admin 2 15:40:56 CDT CPT-54797 CBC - LAB USE ONLY 09:49:24 CDT CPT-55251 CMP - LAB USE ONLY 09:49:24 CDT CPT-91399 Lipid - LAB USE ONLY 09:49:24 CDT 8 CPT-86264 Venipuncture Draw Fee 09:49:24 CDT CPT-47821 Allergy Admin 2 10:46:11 CDT CPT-JTINJ Asp/Joint Injection 09:52:58 CDT CPT-35965 Skin tag rem 1-15 13:46:20 CDT CPT-40950 Knee, right, 3V - XRAY USE ONLY 13:07:09 CD T CPT-85538 Allergy Admin 2 11:56:38 CDT CPT-55913 Allergy Admin 2 12:00:55 CDT CPT-50548 Allergy Admin 2 16:42:13 CDT CPT-12932 Allergy Admin 2 16:27:55 CDT CPT-06969 Allergy Admin 2 13:24:26 CDT CPT-11240 Allergy Admin 2 17:17:57 [facility] CPT-06768 Allergy Admin 2 16:23:22 [facility] CPT-82541 Allergy Admin 2 16:26:55 [facility] CPT-72531 Allergy Admin 2 16:32:33 [facility] CPT-45756 Allergy Admin 2 17:43:40 [facility] CPT-86038 Allergy Admin 2 16:26:07 [facility] CPT-29973 Allergy Admin 2 12:31:50 [facility] CPT-48222 Allergy Admin 2 16:40:38 [facility] CPT-03547 Allergy Admin 2 17:07:36 CDT CPT-G0008 Administration of Influenza Virus Vaccine 17:01:01 CDT CPT-98464 First Vx - Ix admin via ID I M or jet injects without counseling by physician 17:01:01 CDT CPT-49395 Allergy Admin 2 12:06:54 CDT CPT-30838 Allergy Admin 2 17:04:46 CDT CPT-45331 Allergy Admin 2 16:34:48 CDT CPT-81527 Allergy Admin 2 17:04:51 CDT CPT-44444 Allergy Admin 2 16:25:14 CDT CPT-75560 Allergy Admin 2 10:52:02 CDT CPT-95092 Allergy Admin 2 11:45:31 CDT CPT-02434 Allergy Admin 2 12:02:20 CDT CPT-94027 Allergy Admin 2 15:47:29 CDT CPT-75045 Allergy Admin 2 13:25:44 CDT CPT-75907 Allergy Admin 2 10:51:13 CDT CPT-03212 CBC - LAB USE ONLY 10:44:39 CDT CPT-23334 CMP - LAB USE ONLY 10:44:39 CDT CPT-24107 Lipid - LAB USE ONLY 10:44:39 CDT 9 CPT-83633 Venipuncture Draw Fee 10:44:38 CDT CPT-25168 Allergy Admin 2 12:25:22 CDT CPT-77533 Allergy Admin 2 12:41:34 CDT CPT-99890 Allergy Admin 2 15:29:46 CDT CPT-10486 Allergy Admin 2 14:46:53 CDT CPT-86132 Allergy Admin 2 14:16:16 CDT CPT-10597 Allergy Admin 2 16:55:26 CDT CPT-23117 Allergy Admin 2 10:12:02 CDT CPT-30858 Allergy Admin 2 14:53:56 CDT CPT-41592 Allergy Admin 2 17:01:54 CDT CPT-79969 Allergy Admin 2 09:36:02 CDT CPT-56574 Allergy Admin 2 16:53:26 RETAIL BAKERY MANAGER CPT-75507 Allergy Admin 2 16:59:41 RETAIL BAKERY MANAGER CPT-13337 Allergy Admin 2 16:36:44 RETAIL BAKERY MANAGER CPT-07503 Allergy Admin 2 16:17:16 RETAIL BAKERY MANAGER CPT-23019 Allergy Admin 2 17:08:10 RETAIL BAKERY MANAGER CPT-58731 Allergy Admin 2 12:16:08 [facility] CPT-42454 Allergy Admin 2 16:47:30 [facility] CPT-84796 Allergy Admin 2 16:59:44 [facility] CPT-24572 Allergy Admin 2 12:48:53 [facility] CPT-66836 Allergy Admin 2 10:19:48 [facility] CPT-38912 Allergy Admin 2 12:40:17 [facility] CPT-81673 Abx/Therapy Injection 17:21:59 RETAIL BAKERY MANAGER CPT-57035 First Vx - Ix admin via ID I M or jet injects without counseling by physician 17:21:57 RETAIL BAKERY MANAGER CPT-59371 Allergy Admin 2 17:20:12 RETAIL BAKERY MANAGER CPT-45020 Allergy Admin 2 11:12:50 RETAIL BAKERY MANAGER CPT-35525 Allergy Admin 2 17:02:39 CDT CPT-75605 BMP - LAB USE ONLY 10:33:02 CDT CPT-08121 CBC - LAB USE ONLY 10:33:02 CDT CPT-71600 Venipuncture Draw Fee 10:33:02 CDT CPT-10350 Abx/Therapy Injection 12:29:08 CDT CPT-92889 Allergy Admin 2 10:39:48 CDT CPT-65789 Allergy Admin 2 10:55:47 CDT CPT-PV Prev. Care Visit 10:10:00 CDT CPT-96534 Allergy Admin 2 11:31:20 CDT CPT-78533 Allergy Admin 2 16:53:45 CDT CPT-86137 Allergy Admin 2 16:36:42 CDT CPT-89382 Allergy Admin 2 16:30:19 CDT CPT-75190 Allergy Admin 2 15:39:35 CDT CPT-36849 Allergy Admin 2 17:51:32 CDT CPT-03216 Allergy Admin 2 11:50:50 CDT CPT-PV Prev. Care Visit 14:09:05 CDT CPT-54812 Allergy Admin 2 13:37:39 CDT CPT-62337 Abx/Therapy Injection 12:17:43 CDT CPT-50403 Venipuncture Draw Fee 10:39:55 CDT CPT-74277 Allergy Admin 2 12:04:53 CDT CPT-36911 Allergy Admin 2 10:04:39 CDT CPT-46931 Allergy Admin 2 12:15:35 CDT CPT-80326 Allergy Admin 2 17:04:36 CDT CPT-71745 Allergy Admin 2 16:25:49 CDT CPT-81331 Allergy Admin 2 17:30:06 CDT CPT-24763 Allergy Admin 2 10:11:48 CDT CPT-54841 Allergy Admin 2 17:06:13 CDT CPT-47482 Abx/Therapy Injection 12:23:07 CDT CPT-J0702 Celestone 12 mg (Betamethasone) 12:23:07 CD T CPT-73720 Venipuncture Draw Fee 10:26:42 CDT CPT-26944 Allergy Admin 2 12:10:01 CDT CPT-12060 Allergy Admin 2 15:13:57 RETAIL BAKERY MANAGER CPT-28668 Allergy Admin 2 16:55:22 RETAIL BAKERY MANAGER CPT-46523 Allergy Admin 2 10:13:46 RETAIL BAKERY MANAGER CPT-47004 Venipuncture Draw Fee 10:06:08 RETAIL BAKERY MANAGER CPT-06884 Allergy Admin 2 16:15:41 RETAIL BAKERY MANAGER CPT-13148 Allergy Admin 2 16:40:21 RETAIL BAKERY MANAGER CPT-62946 Allergy Admin 2 16:31:48 RETAIL BAKERY MANAGER CPT-56498 Allergy Admin 2 16:38:26 RETAIL BAKERY MANAGER CPT-77314 Allergy Admin 2 16:40:08 RETAIL BAKERY MANAGER CPT-04318 Allergy Admin 2 08:34:27 RETAIL BAKERY MANAGER CPT-29894 Allergy Admin 2 14:27:45 RETAIL BAKERY MANAGER CPT-49922 Destruction bgn lsn up to 14 09:41:27 RETAIL BAKERY MANAGER 2 CPT-14122 Allergy Admin 2 17:45:17 RETAIL BAKERY MANAGER CPT-04633 Allergy Admin 2 14:59:03 RETAIL BAKERY MANAGER CPT-68640 Allergy Admin 2 12:49:42 CDT CPT-50459 Administration single or combination vac cine inc oral 15:01:57 CDT CPT-82327 Fluzone Quadrivalent Intramuscular Suspe nsion 0.5 ML 15:01:57 CDT CPT-19682 Allergy Admin 2 15:07:08 CDT CPT-63226 Allergy Admin 2 15:39:01 CDT CPT-93043 Allergy Admin 2 17:40:11 CDT CPT-58040 Allergy Admin 2 16:07:08 CDT CPT-20284 Allergy Admin 2 16:08:07 CDT CPT-50254 Venipuncture Draw Fee 09:34:29 CDT CPT-80150 Allergy Admin 2 16:27:43 CDT CPT-20539 Allergy Admin 2 15:53:10 CDT CPT-10856 Allergy Admin 2 15:42:29 CDT CPT-42776 Allergy Admin 2 11:26:14 CDT CPT-64836 Allergy Admin 2 10:36:24 CDT CPT-52631 Allergy Admin 2 16:53:37 CDT CPT-04588 Allergy Admin 2 11:21:44 CDT CPT-67993 Allergy Admin 2 10:50:40 CDT CPT-56802 Allergy Admin 2 11:19:11 CDT CPT-61539 Venipuncture Draw Fee 11:12:25 CDT CPT-59619 Allergy Admin 2 11:14:51 CDT CPT-82015 Allergy Admin 2 16:53:11 CDT CPT-41655 Allergy Admin 2 11:45:56 CDT CPT-52125 Allergy Admin 2 12:51:39 CDT CPT-56206 Allergy Admin 2 12:08:56 CDT CPT-12532 Allergy Admin 2 15:29:45 CDT CPT-17333 Allergy Admin 2 16:34:01 CDT CPT-09580 Allergy Admin 2 16:36:46 CDT CPT-93989 Allergy Admin 2 15:19:16 CDT CPT-32043 Allergy Admin 2 16:13:25 CDT CPT-77924 Allergy Admin 2 17:06:17 CDT CPT-54695 Allergy Admin 2 10:42:10 RETAIL BAKERY MANAGER CPT-44639 Allergy Admin 2 17:33:16 RETAIL BAKERY MANAGER CPT-07071 Allergy Admin 2 10:53:30 RETAIL BAKERY MANAGER CPT-30369 Allergy Admin 2 14:18:24 RETAIL BAKERY MANAGER CPT-24040 Allergy Admin 2 10:18:29 RETAIL BAKERY MANAGER CPT-28434 Allergy Admin 2 12:57:40 RETAIL BAKERY MANAGER CPT-69422 Allergy Admin 2 16:53:33 RETAIL BAKERY MANAGER CPT-16220 Allergy Admin 2 12:43:00 RETAIL BAKERY MANAGER CPT-66674 Allergy Admin 2 13:14:09 RETAIL BAKERY MANAGER CPT-86027 Pneumovax 23 Injection Injectable 25 MCG /0.5ML 09:51:29 RETAIL BAKERY MANAGER CPT-G0009 Administration of Pneumococcal Vaccine 09:51:29 RETAIL BAKERY MANAGER CPT-36059 Influenza split virus > age 3 09:51:29 RETAIL BAKERY MANAGER CPT-G0008 Administration of Influenza Virus Vaccine 02/23 09:51:29 RETAIL BAKERY MANAGER CPT-28867 Venipuncture Draw Fee 10:31:06 CDT CPT-J0702 Celestone 12 mg (Betamethasone) 11:34:17 CD T CPT-08332 Abx/Therapy Injection 11:34:17 CDT CPT-99762 Chest 2V Frontal and Lat 11:31:47 CDT 07/04 CPT-61437 Venipuncture Draw Fee 11:31:47 CDT CPT-02495 Allergy Admin 2 14:31:05 CDT CPT-24875 EKG Trac and Interp 08:42:32 CDT CPT-76529 Chest 2V Frontal and Lat 08:42:32 CDT 05/28 CPT-72060 Venipuncture Draw Fee 08:39:02 CDT CPT-80606 Allergy Admin 2 16:59:09 CDT CPT-57015 Allergy Admin 2 17:06:11 CDT CPT-40196 Allergy Admin 2 16:04:36 CDT CPT-41390 Venipuncture Draw Fee 16:32:44 RETAIL BAKERY MANAGER CPT-17534 Venipuncture Draw Fee 10:54:37 RETAIL BAKERY MANAGER CPT-82895 Allergy Admin 2 14:53:55 RETAIL BAKERY MANAGER CPT-85197 Allergy Admin 2 10:23:58 RETAIL BAKERY MANAGER CPT-68114 First Vx Component - Ix admi n via ID IM or jet inj without physician counseling 15:34:26 RETAIL BAKERY MANAGER CPT-36630 Fluzone (>=3 yrs.) 15:34:26 RETAIL BAKERY MANAGER CPT-14353 Allergy Admin 2 15:56:02 RETAIL BAKERY MANAGER CPT-77023 Allergy Admin 2 11:08:58 RETAIL BAKERY MANAGER CPT-42536 Allergy Admin 2 10:51:36 RETAIL BAKERY MANAGER CPT-52146 Allergy Admin 2 15:38:19 RETAIL BAKERY MANAGER CPT-23612 Allergy Admin 2 15:12:46 CDT CPT-74452 Allergy Admin 2 10:28:50 CDT CPT-49905 Allergy Admin 2 16:35:33 CDT CPT-27526 Allergy Admin 2 10:14:18 CDT CPT-25818 Abx/Therapy Injection 09:06:45 CDT CPT-J0702 Celestone 6 mg (Betamethasone) 09:06:45 CDT CPT-62267 Allergy Admin 2 15:51:15 CDT CPT-96146 Allergy Admin 2 10:40:16 CDT CPT-16821 Allergy Admin 2 16:35:55 CDT CPT-73199 Allergy Admin 2 13:12:52 CDT CPT-19994 Allergy Admin 2 16:06:50 CDT CPT-85795 Allergy Admin 2 11:04:24 CDT CPT-04448 Allergy Admin 2 10:44:50 CDT CPT-23333 Allergy Admin 2 15:13:40 CDT CPT-23145 Allergy Admin 2 15:00:03 CDT CPT-84945 Allergy Admin 2 10:37:38 CDT CPT-66100 Venipuncture Draw Fee 09:16:43 RETAIL BAKERY MANAGER CPT-11528 Allergy Admin 2 11:15:59 RETAIL BAKERY MANAGER CPT-58228 Postop F/U Visit 10:10:52 RETAIL BAKERY MANAGER CPT-43643 Allergy Admin 2 13:05:05 RETAIL BAKERY MANAGER CPT-27510 Postop F/U Visit 19:45:16 RETAIL BAKERY MANAGER CPT-07282 Allergy Admin 2 11:52:35 RETAIL BAKERY MANAGER CPT-45589 Allergy Admin 2 10:49:22 RETAIL BAKERY MANAGER CPT-OV Office Visit 13:55:55 RETAIL BAKERY MANAGER CPT-12250 Allergy Admin 2 12:54:28 RETAIL BAKERY MANAGER CPT-OV Office Visit 14:04:48 RETAIL BAKERY MANAGER CPT-72608 Venipuncture Draw Fee 10:29:14 RETAIL BAKERY MANAGER CPT-94423 Allergy Admin 2 11:24:43 RETAIL BAKERY MANAGER CPT-72484 Knee 3V 11:00:12 RETAIL BAKERY MANAGER CPT-18350 C-Spine Min 4V 11:00:12 RETAIL BAKERY MANAGER CPT-60967 Allergy Admin 2 13:38:40 RETAIL BAKERY MANAGER CPT-32016 Venipuncture Draw Fee 11:33:37 CDT CPT-37663 Allergy Admin 2 15:34:37 CDT CPT-65286 Allergy Admin 2 14:11:42 CDT CPT-51553 Administration single or combination vac cine inc oral 12:51:42 CDT CPT-26513 Influenza split virus > age 3 12:51:42 CDT CPT-23927 Allergy Admin 2 11:58:43 CDT CPT-85899 Allergy Admin 2 11:29:32 CDT CPT-05730 Allergy Admin 2 10:55:19 CDT CPT-50466 Allergy Admin 2 12:38:54 CDT CPT-47575 Allergy Admin 2 13:01:47 CDT CPT-84904 Abx/Therapy Injection 12:41:18 CDT CPT-J0702 Celestone 12 mg (Betamethasone) 12:41:18 CD T CPT-44592 Abx/Therapy Injection 16:33:09 CDT CPT-J0702 Celestone 12 mg (Betamethasone) 16:33:09 CD T CPT-03994 Allergy Admin 2 15:49:09 CDT CPT-08554 Allergy Admin 2 12:08:56 CDT CPT-51389 Allergy Admin 2 12:19:10 CDT CPT-34679 Allergy Admin 2 12:46:56 CDT CPT-35711 Allergy Admin 2 15:05:13 CDT CPT-67403 Allergy Admin 2 15:36:20 CDT CPT-23804 Allergy Admin 2 09:58:47 RETAIL BAKERY MANAGER CPT-79866 Allergy Admin 2 12:18:06 RETAIL BAKERY MANAGER CPT-08592 Allergy Admin 2 10:01:48 RETAIL BAKERY MANAGER CPT-37231 Allergy Admin 2 12:17:53 RETAIL BAKERY MANAGER CPT-03023 Allergy Admin 2 10:06:44 RETAIL BAKERY MANAGER CPT-09149 Allergy Admin 2 10:13:04 RETAIL BAKERY MANAGER CPT-99621 Venipuncture Draw Fee 10:09:07 RETAIL BAKERY MANAGER CPT-20770 Bone Density 12:24:51 RETAIL BAKERY MANAGER CPT-37721 Allergy Admin 2 11:29:41 RETAIL BAKERY MANAGER CPT-16126 Allergy Admin 2 16:07:15 RETAIL BAKERY MANAGER CPT-96364 Breathing Treatment 06:34:33 RETAIL BAKERY MANAGER CPT-J0702 Celestone 12 mg (Betamethasone) 06:34:33 CS T CPT-98110 Abx/Therapy Injection 06:34:33 RETAIL BAKERY MANAGER CPT-87542 Breathing Tx 11:07:33 RETAIL BAKERY MANAGER CPT-44365 Allergy Admin 2 10:02:33 CDT CPT-70409 Allergy Admin 2 10:02:33 CDT CPT-80776 Allergy Admin 2 15:26:19 CDT CPT-78245 Administration single or combination vac cine inc oral 15:41:12 CDT CPT-70798 Influenza split virus > age 3 15:41:12 CDT
--- OUTSIDE RECORDS SUMMARY | 2020-09-15 14:40 | XMS REPORT | Clinical Summary ---
[...] Yang APRN Pruritus vulvae Active Ashley Yokum PAINTER INTERIOR FINISH Screening mammogram V76.12 Resolved Ashley Yokum A PRN Other screening mammogram Sinusitis, acute maxillary 461.0 Inactive 7 Ashley Yokum PAINTER INTERIOR FINISH Acute maxillary sinusitis Diarrhea, acute 787.91 Resolved Ashley Yokum PAINTER INTERIOR FINISH Diarrhea Vaginal candidiasis 112.1 Resolved Ashley Yokum A PRN Candidiasis of vulva and vagina Accidental fall E888.9 Resolved Ashley Yokum PAINTER INTERIOR FINISH Unspecified fall Contusion of left hand, initial encounter 923.20 Resol burak Ashley Yokum PAINTER INTERIOR FINISH Contusion of hand(s) Contusion of right upper arm, subsequent encounter V58.89 201 09/14/21 Resolved Ashley Yokum PAINTER INTERIOR FINISH Encounter for other specified a ftercare Ganglion cyst of left wrist 727.41 Active Derrick Younger MD Ganglion of joint Body Mass Index 31.0-31.9 Adult Resolved 2017 Ashley Yokum PAINTER INTERIOR FINISH Body Mass Index 31.0-31.9, adult Plantar fasciitis 728.71 Active Ashley Yokum PAINTER INTERIOR FINISH Plantar fascial fibromatosis Bronchitis, acute 466.0 Inactive Ashley Yokum APR N Acute bronchitis Body Mass Index 30.0-30.9 Adult Resolved 2017 Ashley Yokum PAINTER INTERIOR FINISH Body Mass Index 30.0-30.9, adult Allergic conjunctivitis, bilateral 372.14 Resolved 2 Ashley Yokum PAINTER INTERIOR FINISH Other chronic allergic conjunctivitis Skin tags; irritated/inflammed 701.9 Resolved 11/10 Ashley Yokum PAINTER INTERIOR FINISH Unspecified hypertrophic and atrophic co nditions of skin Body Mass Index 31.0-31.9 Adult Refinement 2017 Ashley Yokum PAINTER INTERIOR FINISH Body Mass Index 31.0-31.9, adult BMI 30-30.9 Refinement Ashley Yokum PAINTER INTERIOR FINISH Body Mass Index 31.0-31.9, adult BMI 31-31.9 Refinement Ashley Yokum PAINTER INTERIOR FINISH Body Mass Index 31.0-31.9, adult BMI 32-32.9 Refinement Lois Faith RN Body Mass Index 31.0-31.9, adult BMI 31-31.9 Active Viviana Rubio APRN-Julieta Body Mass Index 31.0-31.9, adult Major depression, recurrent, moderate 296.32 Active Ashley Yokum PAINTER INTERIOR FINISH Major depressive disorder, recurrent epi sode, moderate degree Obesity Class I (BMI 30-34.9) Active Ashley Y okum PAINTER INTERIOR FINISH Obesity, unspecified Nausea and vomiting 787.01 Resolved Ashley Yokum A PRN Nausea with vomiting Gastroenteritis acute 558.9 Resolved Ashley Yokum PAINTER INTERIOR FINISH Other and unspecified noninfectious gastroenteritis and colitis GERD 530.81 Active Ashley Yokum PAINTER INTERIOR FINISH E sophageal reflux Joint pain 719.40 Resolved Ashley Yokum PAINTER INTERIOR FINISH Pain in joint, site unspecified Preventive health care, adult V70.0 Inactive / Ashley Yokum PAINTER INTERIOR FINISH Routine general medical examination at a health care facility Blood in urine 599.70 Resolved Ashley Yokum PAINTER INTERIOR FINISH Hematuria, unspecified Other abnormal findings in urine Resolved Ashley Yokum PAINTER INTERIOR FINISH Urinary tract infection 599.0 Inactive Ashley Yok um PAINTER INTERIOR FINISH Urinary tract infection, site not specified Chafing of skin 709.8 Resolved Ashley Yokum PAINTER INTERIOR FINISH Other specified disorders of skin Preventive care V70.0 Active Supriya Huston A Routine general medical examination at a health care facility Gynecological examination, routine V72.3 Inactive 2 Ashley Yokum PAINTER INTERIOR FINISH Special investigations and e xaminations - Gynecological examination Near syncope 780.2 Resolved Ashley Yokum PAINTER INTERIOR FINISH Syncope and collapse Lightheadedness 780.4 Resolved Ashley Yokum PAINTER INTERIOR FINISH Dizziness and giddiness Headache 784.0 Resolved Ashley Yokum PAINTER INTERIOR FINISH Headache Sore throat 462 Resolved Ashley Yokum PAINTER INTERIOR FINISH Acute pharyngitis Sinusitis - acute 461.9 Resolved Ashley Yokum APR N Acute sinusitis, unspecified Tired all the time 780.79 Resolved Ashley Yokum AP RN Other malaise and fatigue Fatigue 780.79 Inactive Ashley Yokum PAINTER INTERIOR FINISH Other malaise and fatigue ABNORMAL WEIGHT GAIN ICD-783.1 Inactive Wayne YANG ALLERGIC RHINITIS ICD-477.9 Inactive Lois Angelo mendieta PAINTER INTERIOR FINISH SINUSITIS ICD-473.9 Inactive Lois Deric PAINTER INTERIOR FINISH 2012 WHEEZING ICD-786.07 Inactive Lois Deric PAINTER INTERIOR FINISH 2012 UPPER RESPIRATORY INFECTION, ACUTE ICD-465.9 I nactive Lois Deric PAINTER INTERIOR FINISH NEED FOR DESENSITIZATION TO ALLERGENS ICD-V07.1 8 Inactive Ashley Yokum PAINTER INTERIOR FINISH OBESITY ICD-278.00 Inactive Wayne YANG CONTACT DERMATITIS DUE TO POISON ARANZA ICD-692.6 Inactive Lois Leos PAINTER INTERIOR FINISH NEED PROPHYLACTIC VACCINATION&INOCULATION FLU ICD-V04.81 Inactive Wayne Harms PA GERD ICD-530.81 Inactive Lois Leos PAINTER INTERIOR FINISH 03/22 LONG-TERM (CURRENT) USE OF OTHER MEDICATIONS ICD-V58.69 6 Inactive Wayne Harms PA NECK PAIN ICD-723.1 Inactive Wayne Harms PA 06/15 DEGENERATIVE DISC DISEASE, CERVICAL SPINE ICD-722.4 Inactive Wayne Harms PA SKIN TAG ICD-701.9 Inactive Wayne Harms PA G E R D ICD-530.81 Inactive Lois Leos PAINTER INTERIOR FINISH CANDIDIASIS OF SKIN AND NAILS ICD-112.3 Inacti ve Wayne Harms PA AFTERCARE FOLLOW SURGERY MUSCULOSKEL SYSTEM NEC ICD-V58.78 Inactive Wayne Harms PA PHARYNGITIS ICD-462 Inactive Wayne Harms PA 05/03 OTHER SCREENING MAMMOGRAM ICD-V76.12 Inactive Wayne Harms PA DYSPAREUNIA, MILD ICD-625.0 Inactive Wayne Harm s PA CONTACT DERMATITIS DUE TO POISON ARANZA ICD-692.6 Inactive Wayne Harms PA Sinusitis, chronic ICD-473.9 Inactive Ashley Mir yoni PAINTER INTERIOR FINISH Myalgia ICD-729.1 Inactive Wayne Harms PA Rheumatoid [...] Harms PA Allergic rhinitis, chronic ICD-477.9 Inactive Wanye Harms PA High risk meds ICD-V58.69 Inactive Wayne Harms PA Need for prophylactic vaccination and inoculation against in fluenza ICD-V04.81 Inactive Wayne Harms PA Onychomycosis -dermatophytosis, nail ICD-110.1 Inactive Wayne Harms PA Skin tags; irritated/inflammed ICD-701.9 Inact rancho Wayne Harms PA Cough ICD-786.2 Inactive Wayne Harms PA Runny nose ICD-472.0 Inactive Ashley Yang PAINTER INTERIOR FINISH Influenza like illness ICD-487.1 Inactive Wayne Moon PA Acute maxillary sinusitis ICD-461.0 Inactive Ashley Yokum PAINTER INTERIOR FINISH Preventive health care ICD-V70.0 Inactive Jenny mo Yokum PAINTER INTERIOR FINISH Well women exam ICD-V72.3 Inactive Ashley Yokum PAINTER INTERIOR FINISH Screening mammogram ICD-V76.12 Inactive Ashley Yokum PAINTER INTERIOR FINISH Sinusitis, acute maxillary ICD-461.0 Inactive Ashley Yokum PAINTER INTERIOR FINISH Diarrhea, acute ICD-787.91 Inactive Ashley Merazu m PAINTER INTERIOR FINISH Vaginal candidiasis ICD-112.1 Inactive Ashley coppolaum PAINTER INTERIOR FINISH Accidental fall ICD-E888.9 Inactive Ashley Yoku m PAINTER INTERIOR FINISH Contusion of left hand, initial encounter ICD-923.20 Inactive Ashley Yokum PAINTER INTERIOR FINISH Contusion of right upper arm, subsequent encounter ICD-V58.89 Inactive Ashley Yokum PAINTER INTERIOR FINISH Body Mass Index 31.0-31.9 Adult Inac tive Ashley Yokum PAINTER INTERIOR FINISH Bronchitis, acute ICD-466.0 Inactive Ashley Yok um PAINTER INTERIOR FINISH Body Mass Index 30.0-30.9 Adult Inac tive Ashley Yokum PAINTER INTERIOR FINISH Allergic conjunctivitis, bilateral ICD-372.14 I nactive Ashley Yokum PAINTER INTERIOR FINISH Skin tags; irritated/inflammed ICD-701.9 Inact rancho Ashley Yokum PAINTER INTERIOR FINISH Nausea and vomiting ICD-787.01 Inactive Ashley Yokum PAINTER INTERIOR FINISH Gastroenteritis acute ICD-558.9 Inactive Conchis hi Yokum PAINTER INTERIOR FINISH Joint pain ICD-719.40 Inactive Ashley Yokum APR N Preventive health care, adult ICD-V70.0 Inacti ve Ashley Yokum PAINTER INTERIOR FINISH Blood in urine ICD-599.70 Inactive Ashley Yokum PAINTER INTERIOR FINISH Other abnormal findings in urine [place] ctive Ashley Yokum PAINTER INTERIOR FINISH Urinary tract infection ICD-599.0 Inactive K athi Yokum PAINTER INTERIOR FINISH Chafing of skin ICD-709.8 Inactive Ashley Yokum PAINTER INTERIOR FINISH Gynecological examination, routine ICD-V72.3 I nactive Ashley Yokum PAINTER INTERIOR FINISH Near syncope ICD-780.2 Inactive Ashley Yokum AP RN Lightheadedness ICD-780.4 Inactive Ashley Yokum PAINTER INTERIOR FINISH Headache ICD-784.0 Inactive Ashley Yokum PAINTER INTERIOR FINISH 2020 Sore throat ICD-462 Inactive Ashley Yokum PAINTER INTERIOR FINISH 02/17/17 Sinusitis - acute ICD-461.9 Inactive Ashley Yok um PAINTER INTERIOR FINISH Tired all the time ICD-780.79 Inactive Ashley gutierrez PAINTER INTERIOR FINISH Fatigue ICD-780.79 Inactive Ashley Yang PAINTER INTERIOR FINISH 2020 Medication List Medication Instructions Start Date Stop Date Generic Name NDC Status Provider Patient Instruction ALPRAZOLAM 0.25 MG TABS TAKE 1 TO 2 TABLETS BY MOUTH THREE TIMES DAILY NEEDED ALPRAZOLAM 70532832363 Active Shanelle Rivera RN Active PHENTERMINE HCL 37.5 MG ORAL TABLET 1/2 qAM, can incre ase to 1 qAM - take 30 min before or 2 hrs after breakfast PHENTERMINE HCL 39772 512904 Active Ashley Yang APRN Active MUCINEX D 60-600 MG ORAL TABLET EXTENDED RELEASE 12 HO UR 1 po BID PRN Congestion PSEUDOEPHEDRINE-GUAIFENESIN 48327190890 Active Ashley Yang PAINTER INTERIOR FINISH Active ZYRTEC ALLERGY 10 MG ORAL CAPSULE 1qd CETIR IZINE HCL 49116206775 No Longer Active Ashley Yang PAINTER INTERIOR FINISH Active HAIR, SKIN, NAILS VITAMINS take 1 tab by mouth 2x a day HAIR, SKIN, NAILS VITAMINS Active Ashley Yang APRN Active CENTRUM SILVER FOR WOMEN OVER 50 1 tab by mouth by day. CENTRUM SILVER FOR WOMEN OVER 50 Active Ashley Yang APRN Active VITAMIN D3 1000 UNIT ORAL CAPSULE 1 po qd CH OLECALCIFEROL 53882013561 Active Ashley Yang PAINTER INTERIOR FINISH Active PREDNISONE 20 MG ORAL TABLET Take 2 tablets by mouth d aily for 2 days then 1 tablet daily for 2 days. PREDNISONE 36339979706 No Longer Active Ashley Yang PAINTER INTERIOR FINISH Active MELOXICAM 15 MG ORAL TABLET TAKE 1 TABLET BY MOUTH IN THE MORNING 2 MELOXICAM 04179229844 Active LARRY Murillo Active CLARITIN 10 MG ORAL TABLET 1 tablet by mouth daily as needed for allergies LORATADINE 47719469253 Active Supriya Betzaida RMA Active SIMVASTATIN 40 MG ORAL TABLET TAKE 1 TABLET BY MOUTH ONCE DA JAVON AT BEDTIME SIMVASTATIN 67204726079 Active Marcy Medina RMA Active QCNJSDM-GAJXVRLIA-KCHU ORAL TABLET MULT IPLE MINERALS 07886837001 Active Lois Faith, RN Active SERTRALINE HCL 100 MG ORAL TABLET Take 1 tablet by mouth once da javon SERTRALINE HCL 88724367640 Active Marcy Medina, RMA A ctive REGLAN 10 MG ORAL TABLET 1 po qid for bowels 3 METOCLOPRAMIDE HCL 35881515826 No Longer Active Ashley Yokum ELAINA A ctive ADK 8090-2285-374 UNIT-MCG ORAL CAPSULE 1 daily VITAMINS A D K 54985862074 Active Ashley Yokum PAINTER INTERIOR FINISH Active B-12 2500 MCG ORAL TABLET 1 daily CYANOCOBAL HUNT 03385955654 No Longer Active Ashley Yokum PAINTER INTERIOR FINISH Active ESTRADIOL 2 MG TABS Take 1 tablet by mouth once daily ESTRADIOL 78106327490 Active Shanelle Nicole RN Active MACROBID 100 MG ORAL CAPSULE 1 cap by mouth twice daily NITROFURANTOIN MONOHYD MACRO 79389805085 No Longer Active Ashley Yokum PAINTER INTERIOR FINISH Active FISH OIL + D3 3621-5185 MG-UNIT ORAL CAPSULE 1 dailly 4 FISH OIL-CHOLECALCIFEROL 31182059834 Active Ashley Yokum PAINTER INTERIOR FINISH Acti ve PROAIR HFA 108 (90 BASE) MCG/ACT INHALATION AEROSOL SO LUTION 2 puffs four times a day as needed ALBUTEROL SULFATE 01817865337 No Long er Active Ashley Yokum PAINTER INTERIOR FINISH Active ZITHROMAX Z-SANJANA 250 MG ORAL TABLET Take 2 tablets toda y and 1 each day till gone AZITHROMYCIN 48094968915 No Longer Active Ashley Yokum PAINTER INTERIOR FINISH Active POLYTRIM 36717-8.1 UNIT/ML-% OPHTHALMIC SOLUTION 1 gtt to affected eye q3h x 7 days POLYMYXIN B-TRIMETHOPRIM 66924777803 No Longer Active Ashley Yokum PAINTER INTERIOR FINISH Active IBUPROFEN 200 MG ORAL TABLET Take 3 tablets every 6hrs 201 09/17/15 IBUPROFEN 34460440492 No Longer Active Ashley Yokum PAINTER INTERIOR FINISH Active DIFLUCAN 150 MG ORAL TABLET Take one tablet today and repeat in 72 hours FLUCONAZOLE 76572530718 No Longer Active Derrick cardenas MD Active DIFLUCAN 150 MG ORAL TABLET 1 by mouth for yeast 03/03 FLUCONAZOLE 76593860497 No Longer Active Ashley Yokum PAINTER INTERIOR FINISH Active AUGMENTIN 875-125 MG ORAL TABLET Take one tablet twice a day with food AMOXICILLIN-POT CLAVULANATE 94947431027 No Longer Act rancho Ashley Yokum PAINTER INTERIOR FINISH Active CALCIUM 600 + D 600-200 MG-UNIT ORAL TABLET Take one daily CALCIUM CARB-CHOLECALCIFEROL 74308524931 No Longer Active Ashley Yokum PAINTER INTERIOR FINISH Active FLONASE 50 MCG/ACT NASAL SUSPENSION 1 spray each nostr il twice daily for allergies and runny nose FLUTICASONE PROPIONATE 65825650346 No Longer Active Ashley Yokum PAINTER INTERIOR FINISH Active CLARITIN-D 12 HOUR 5-120 MG ORAL TABLET EXTENDED RELEA SE 12 HOUR Take one tablet BID as needed for allergies LORATADINE-PSEUDOEP HEDRINE 26690713213 No Longer Active Beth Naff BEAN SNIPPER Active AMOXICILLIN-POT CLAVULANATE 875-125 MG ORAL TABLET 1 pill by mouth twice daily AMOXICILLIN-POT CLAVULANATE 53206836340 No Longer Act rancho Ashley Yokum PAINTER INTERIOR FINISH Active AMOXICILLIN 500 MG ORAL CAPSULE Take 1 capsule by mout h three times a day X 10 days AMOXICILLIN 30299839621 No Longer Active Wayne Denys arms PA Active PROBIOTIC DAILY ORAL CAPSULE Take one daily PROBIO TIC PRODUCT 68993538057 Active Wayne Harms PA Active TYLENOL 325 MG ORAL TABLET Take 2 every 6hrs prn A CETAMINOPHEN 50612024839 Active Wayne Red PA Active ACETAMINOPHEN 500 MG ORAL TABLET prn RICH TAMINOPHEN 73491004054 No Longer Active Wayne Harms PA Active CLARITIN-D 12 HOUR 5-120 MG ORAL TABLET EXTENDED RELEA SE 12 HOUR Take one tablet bid LORATADINE-PSEUDOEPHEDRINE 41435259422 No Longe r Active Wayne Harms PA Active MOBIC 15 MG ORAL TABLET 1 tablet by mouth daily in am with PPI 2 MELOXICAM 92151114117 No Longer Active Wayne Harms PA Acti ve HYDROCORTISONE 2.5 % EXTERNAL CREAM Apply three times a day to affected area HYDROCORTISONE 19380062127 No Longer Active Wayne Harms PA Active VITAMIN D3 1000 UNIT ORAL TABLET Take two daily CHOLECALCIFEROL 47314715158 No Longer Active Wayne Harms PA Active PROBIOTIC ORAL CAPSULE Take one daily PROBIOTIC PRODUCT 15628942435 No Longer Active Wayne Harms PA Active GREEN TEA SLIM ORAL TABLET Take one daily [facility] NATURAL PRODUCTS 78086981851 No Longer Active Wayne Harms PA Active BENZONATATE 200 MG ORAL CAPSULE Take one capsule three times a d ay BENZONATATE 88841795392 No Longer Active Wayne Harms PA Act rancho ZITHROMAX Z-SANJANA 250 MG ORAL TABLET 2 today, then 1 daily for 4 d ays AZITHROMYCIN 79605137723 No Longer Active Wayne Harms PA Ac tive ZITHROMAX 250 MG ORAL TABLET 2 po today, then 1 po q days 2-5 20 31/03/18 AZITHROMYCIN 01990706299 No Longer Active Beth Turner BEAN SNIPPER Active OMEPRAZOLE 20 MG ORAL CAPSULE DELAYED RELEASE 1 tablet by [facility] daily OMEPRAZOLE 30651869076 Active Supriya Huston RMA Active ZITHROMAX Z-SANJANA 250 MG ORAL TABLET 2x1day,[id number] 2014 AZITHROMYCIN 49445404230 No Longer Active Wayne Harms PA Active FISH OIL 1200 MG ORAL CAPSULE One daily prn OME GA-3 FATTY ACIDS 64418852594 No Longer Active Wayne Harms PA Active CEPHALEXIN 250 MG ORAL CAPSULE Take one tablet qid 201 05/25/29 CEPHALEXIN 66153142219 No Longer Active Wayne Harms PA Active VITAMIN D3 1000 UNIT ORAL TABLET 1qd CHOLEC ALCIFEROL 72313906147 No Longer Active Wayne Harms PA Active B-12 2000 MCG ORAL TABLET 1qd CYANOCOBALAMI N 05164945168 No Longer Active Wayne Harms PA Active ACIPHEX 20 MG ORAL TABLET DELAYED RELEASE 1qd 10/28 RABEPRAZOLE SODIUM 39672157214 No Longer Active Wayne Harms PA Active HYDROCORTISONE 2.5 % EXTERNAL CREAM apply 3-4 times a day to affected area HYDROCORTISONE 60165325983 No Longer Active Wayne Harms PA Active MUCINEX 600 MG ORAL TABLET EXTENDED RELEASE 12 HOUR 2qd GUAIFENESIN 60243706424 No Longer Active Wayne Harms PA Active TUSSIONEX PENNKINETIC ER 10-8 MG/5ML ORAL SUSPENSION E XTENDED RELEASE 5ml po q12hr PRN Cough HYDROCOD POLST-CHLORPHEN POLST 5 7276872725 No Longer Active Wayne Harms PA Active ZITHROMAX 250 MG ORAL TABLET 2 po today, then 1 po q days 2-5 20 26/06/21 AZITHROMYCIN 62040527793 No Longer Active Wayne Harms PA Ac tive CLARITIN 10 MG ORAL TABLET one tablet daily THEO ATADINE 21016424336 No Longer Active Wayne Harms PA Active FLAGYL 500 MG ORAL TABLET 1 tablet by mouth three times daily 20 28/05/03 METRONIDAZOLE 02470059687 No Longer Active Wayne Harms PA A ctive CHERATUSSIN AC 100-10 MG/5ML ORAL SYRUP one teaspoon qid. 9 GUAIFENESIN-CODEINE 01063816563 No Longer Active Wayne Harms PA Act rancho VITAMIN D 1000 UNIT ORAL TABLET 1qd CHOLECA LCIFEROL 14480116393 No Longer Active Wayne Harms PA Active CYMBALTA 60 MG ORAL CAPSULE DELAYED RELEASE PARTICLES 1 cap by mouth daily DULOXETINE HCL 85639561224 No Longer Active Wayne Harms PA Active AMOXICILLIN 500 MG ORAL CAPSULE 2 caps tid for 10days AMOXICILLIN 00096881823 No Longer Active Wayne Harms PA Active CALCIUM + D 600-200 MG-UNIT TABS Take one by mouth daily CALCIUM CARBONATE-VITAMIN D 44678492681 No Longer Active Wayne Harms PA Active CENTRUM SILVER ADULT 50+ ORAL TABLET 1qd 2013 MULTIPLE VITAMINS-MINERALS 07952859483 No Longer Active Wayne Harms PA Active VENLAFAXINE HCL 75 MG ORAL TABLET 1tid VE NLAFAXINE HCL 75805742330 No Longer Active Wayne Harms PA Active CLARITIN 10 MG ORAL TABLET 1 tablet by mouth daily as needed for allergies LORATADINE 47826941902 No Longer Active Wayne Harms PA Acti ve HYDROCORTISONE 2.5 % EXTERNAL CREAM Apply four times a day to af fected area HYDROCORTISONE 30935706592 No Longer Active Wayne Harms PA Active ZITHROMAX 250 MG ORAL TABLET 2 po today, then 1 po q days 2-5 20 26/02/30 AZITHROMYCIN 49190282253 No Longer Active Wayne Harms PA Ac tive ZITHROMAX 250 MG ORAL TABLET 2 po today, then 1 po q days 2-5 20 27/02/16 AZITHROMYCIN 68792850538 No Longer Active Wayne Harms PA Ac tive CYMBALTA 30 MG ORAL CAPSULE DELAYED RELEASE PARTICLES 3 caps daily DULOXETINE HCL 84478372197 No Longer Active Wayne Harms PA Active CYMBALTA 60 MG ORAL CAPSULE DELAYED RELEASE PARTICLES one tablet daily, takes 30mg. with 60mg. to make 90 mg. DULOXETINE HCL 38624200505 No Longer Active Wayne Harms PA Active CYMBALTA 30 MG ORAL CAPSULE DELAYED RELEASE PARTICLES 1 daily wi th 60mg DULOXETINE HCL 71580107165 No Longer Active Wayne Harms PA Active ZITHROMAX 250 MG ORAL TABLET 2 po today, then 1 po q days 2-5 20 26/12/21 AZITHROMYCIN 82623870291 No Longer Active Ismael YANG Active PREDNISONE 20 MG ORAL TABLET 3tab x 2days,2tab x 2days ,1tab x 2days,1/2tab x 2days PREDNISONE 77435677914 No Longer Active Wayne Vera jarvis PA Active PREMARIN 0.625 MG ORAL TABLET Take one by mouth daily ESTROGENS CONJUGATED 64478580567 No Longer Active Wayne Harms PA Active ZITHROMAX 250 MG ORAL TABLET 2 po today, then 1 po q days 2-5 20 26/06/19 AZITHROMYCIN 87838709831 No Longer Active Nereyda Lucke Activ e OMEGA-3 1000 MG ORAL CAPSULE 2qd OMEGA-3 FA TTY ACIDS 16903632373 No Longer Active Wayne Harms PA Active BENADRYL ITCH STOPPING 1-0.1 % EXTERNAL CREAM prn DIPHENHYDRAMINE- ZINC ACETATE 92458309797 No Longer Active Wayne Harms PA Active LOTRISONE 1-0.05 % EXTERNAL CREAM Apply bid CLOTRIMAZOLE-BETAMETHASONE 69212347663 No Longer Active Wayne Harms PA Active ZITHROMAX Z-SANJANA 250 MG ORAL TABLET take as directed 20 26/04/19 AZITHROMYCIN 32884048150 No Longer Active Wayne Harms PA Active NYSTATIN 222321 UNIT/GM EXTERNAL POWDER Apply to affected areas BID NYSTATIN 22392461458 No Longer Active Wayne Harms PA Acti ve BENADRYL 25 MG ORAL CAPSULE prn DIPHENHYDRAMINE HCL 03859891598 Active Wayne Harms PA Active LOTRISONE 1-0.05 % EXTERNAL CREAM apply twice a day 20 25/02/17 CLOTRIMAZOLE-BETAMETHASONE 67843723846 No Longer Active Wayne Harms PA Active HYDROCODONE-ACETAMINOPHEN 5-325 MG ORAL TABLET 1-2 every 4hr s prn pain HYDROCODONE-ACETAMINOPHEN 79819389309 No Longer Activ e Wayne Harms PA Active VICODIN 5-300 MG ORAL TABLET 1-2 tabs every 6hrs as needed for p ain HYDROCODONE-ACETAMINOPHEN 54034635609 No Longer Active Wayne Harms PA Active BENADRYL 25 MG ORAL CAPSULE 1prn DIPHENHYDRA MINE HCL 17557589059 No Longer Active Jillina Frazell PAINTER INTERIOR FINISH Active ROBITUSSIN DM 100-10 MG/5ML ORAL SYRUP 2 teaspoons four times a day DEXTROMETHORPHAN-GUAIFENESIN 43290225092 No Longer Active Jillina Frazell PAINTER INTERIOR FINISH Active ACIPHEX 20 MG ORAL TABLET DELAYED RELEASE Take one by mouth daily RABEPRAZOLE SODIUM 78243195558 No Longer Active Jillina Frazell PAINTER INTERIOR FINISH Active TUMS 500 MG ORAL TABLET CHEWABLE prn SADIQ CIUM CARBONATE ANTACID 19362023711 No Longer Active Jillina Frazell PAINTER INTERIOR FINISH Active PEPTO-BISMOL 524 MG/30ML ORAL SUSPENSION prn 02/26 BISMUTH SUBSALICYLATE 69458122717 No Longer Active Jillina Frazell PAINTER INTERIOR FINISH Active BACTRIM DS 800-160 MG ORAL TABLET 1bid SULFAMETHOXAZOLE-TRIMETHOPRIM 87575866861 No Longer Active Beth Naff BEAN SNIPPER Active GAVISCON EXTRA RELIEF FORMULA CHEW prn A LUM HYDROXIDE-MAG CARBONATE CHEW 69201353756 Active Wayne Harms PA Active DIFLUCAN 150 MG ORAL TABLET 1stat FLUCONAZOL E 15997528378 No Longer Active Wayne Harms PA Active AUGMENTIN 875-125 MG ORAL TABLET 1 tab by mouth twice daily with food AMOXICILLIN-POT CLAVULANATE 49394553043 No Longer Act rancho Wayne Harms PA Active FLUTICASONE PROPIONATE 50 MCG/ACT NASAL SUSPENSION 1 t o 2 sprays each nostril twice a day FLUTICASONE PROPIONATE 81536311721 No Lo nger Active Wayne Harms PA Active HYDROCORTISONE 2.5 % EXTERNAL CREAM apply 2-4 times a day, a s directed, prn HYDROCORTISONE 73606785210 No Longer Active Wayne Harms PA Active ZITHROMAX Z-SANJANA 250 MG ORAL TABLET A ZITHROMYCIN 97295573887 No Longer Active Wayne Harms PA Active SIMVASTATIN 40 MG ORAL TABLET one tablet daily SIMVASTATIN 65011657025 No Longer Active Misty Yoo BEAN SNIPPER Active LOVASTATIN 40 MG ORAL TABLET Take one by mouth daily 12/11 LOVASTATIN 19006598652 No Longer Active Misty Yoo BEAN SNIPPER Active PREDNISONE 20 MG ORAL TABLET 2 PO qd x 2d, 1 PO qd x 2d, 1/2 PO qd x 2d PREDNISONE 19488258204 No Longer Active Ismael silva PA Active ZITHROMAX 250 MG ORAL TABLET two tablets now and one daily x 4 d ays AZITHROMYCIN 98380347541 No Longer Active Misty Yoo BEAN SNIPPER Active ZOLPIDEM TARTRATE 10MG TABS (ZOLPIDEM TARTRATE) 1 at bedtime as needed Active Supriya Betzaida RMA Active CLOBETASOL PROPIONATE 0.05 % EXTERNAL CREAM apply as directed CLOBETASOL PROPIONATE 74123839547 No Longer Active Wayne Harms PA A ctive CYMBALTA 30 MG ORAL CAPSULE DELAYED RELEASE PARTICLES takes 90mg qod alt with 60mg DULOXETINE HCL 01691208392 No Longer Active Wayne Harm s PA Active ZITHROMAX 250 MG ORAL TABLET 2 po today, then 1 po q days 2-5 20 12/24/14 AZITHROMYCIN 49162133642 No Longer Active Wayne Harms PA Ac tive TRIAMCINOLONE ACETONIDE 0.1 % EXTERNAL CREAM apply qid TRIAMCINOLONE ACETONIDE 64049326550 No Longer Active Wayne Harms PA Active ALPRAZOLAM 0.25 MG ORAL TABLET 1 tab three times a day 201 02/23/14 ALPRAZOLAM 80699534914 No Longer Active Wayne Harms PA Active ZOLPIDEM TARTRATE 5 MG ORAL TABLET 1 at bedtime as needed ZOLPIDEM TARTRATE 79066200033 No Longer Active Beth Turner BEAN SNIPPER Active ALPRAZOLAM 0.25 MG ORAL TABLET 1 tab three times a day ALPRAZOLAM 0.25 MG ORAL TABLET 779286 ALPRAZOLAM Inactive TRIAMCINOLONE ACETONIDE 0.1 % EXTERNAL CREAM apply qid TRIAMCINOLONE ACETONIDE 0.1 % EXTERNAL CREAM 9653698 TRIAMCINOLONE A CETONIDE Inactive CYMBALTA 30 MG ORAL CAPSULE DELAYED RELEASE PARTICLES takes 90mg qod alt with 60mg CYMBALTA 30 MG ORAL CAPSULE DELAYED RELEA SE PARTICLES 798687 DULOXETINE HCL Inactive CLOBETASOL PROPIONATE 0.05 % EXTERNAL CREAM apply as directed CLOBETASOL PROPIONATE 0.05 % EXTERNAL CREAM 899484 CLOBETASOL PROPI KELVIN Inactive LOVASTATIN 40 MG ORAL TABLET Take one by mouth daily 2 LOVASTATIN 40 MG ORAL TABLET 977810 LOVASTATIN Inactive ZITHROMAX Z-SANJANA 250 MG ORAL TABLET 03/03 ZITHROMAX Z-SANJANA 250 MG ORAL TABLET 785564 AZITHROMYCIN Inactive HYDROCORTISONE 2.5 % EXTERNAL CREAM apply 2-4 times a day, a s directed, prn HYDROCORTISONE 2.5 % EXTERNAL CREAM 652086 HYDRO CORTISONE Inactive FLUTICASONE PROPIONATE 50 MCG/ACT NASAL SUSPENSION 1 t o 2 sprays each nostril twice a day FLUTICASONE PROPIONA TE 50 MCG/ACT NASAL SUSPENSION 3246525 FLUTICASONE PROPIONATE Inactive AUGMENTIN 875-125 MG ORAL TABLET 1 tab by mouth twice daily with food AUGMENTIN 875-125 MG ORAL TABLET AMOXICIL BLOSSOM-POT CLAVULANATE Inactive DIFLUCAN 150 MG ORAL TABLET 1stat DIFLUCAN 150 MG ORAL TABLET 669585 FLUCONAZOLE Inactive PEPTO-BISMOL 524 MG/30ML ORAL SUSPENSION prn PEPTO-BISMOL 524 MG/30ML ORAL SUSPENSION BISMUTH SUBSALICYLATE Inactive TUMS 500 MG ORAL TABLET CHEWABLE prn TUMS 500 MG ORAL TABLET CHEWABLE 367163 CALCIUM CARBONATE ANTACID Inactive ACIPHEX 20 MG ORAL TABLET DELAYED RELEASE Take one by mouth daily ACIPHEX 20 MG ORAL TABLET DELAYED RELEASE 079599 RABEPRAZOLE SODIUM Inactive ROBITUSSIN DM 100-10 MG/5ML [...] pain HYDROCODONE-ACETAMINOPHEN 5-325 MG ORAL TABLET 8 87560 HYDROCODONE-ACETAMINOPHEN Inactive LOTRISONE 1-0.05 % EXTERNAL CREAM apply twice a day 20 25/02/17 LOTRISONE 1- 0.05 % EXTERNAL CREAM CLOTRIMAZOLE-BETAMETHASONE Inactive NYSTATIN 287725 UNIT/GM EXTERNAL POWDER Apply to affected areas BID NYSTATIN 678295 UNIT/GM EXTERNAL POWDER 168195 NYSTATIN Inactive ZITHROMAX Z-SANJANA 250 MG ORAL TABLET take as directed 20 26/04/19 ZITHROMAX Z-SANJANA 250 MG ORAL TABLET 917988 AZITHROMYCIN Inact [place] LOTRISONE 1-0.05 % EXTERNAL CREAM Apply bid LOTRISONE 1- 0.05 % EXTERNAL CREAM CLOTRIMAZOLE-BETAMETHASONE Inactive BENADRYL ITCH STOPPING 1-0.1 % EXTERNAL CREAM prn BENADRYL ITCH STOPPING 1-0.1 % EXTERNAL CREAM DIPHENHYDRAMINE-ZINC ACETATE Inactive OMEGA-3 1000 MG ORAL CAPSULE 2qd OMEGA-3 1000 MG ORAL CAPSULE 302097 OMEGA-3 FATTY ACIDS Inactive ZITHROMAX 250 MG ORAL TABLET 2 po today, then 1 po q days 2-5 20 26/06/19 ZITHROMAX 250 MG ORAL TABLET 549876 AZITHROMYCIN [place] [facility] PREMARIN 0.625 MG ORAL TABLET Take one by mouth daily PREMARIN 0.625 MG ORAL TABLET ESTROGENS CONJUGATED Inactive PREDNISONE 20 MG ORAL TABLET 3tab x 2days,2tab x 2days ,1tab x 2days,1/2tab x 2days PREDNISONE 20 MG ORAL TABLET 785712 PREDNIS ONE Inactive CYMBALTA 30 MG ORAL CAPSULE DELAYED RELEASE PARTICLES 1 daily wi th 60mg CYMBALTA 30 MG ORAL CAPSULE DELAYED RELEASE PARTICLES 927560 DULOXETINE HCL Inactive CYMBALTA 60 MG ORAL CAPSULE DELAYED RELEASE PARTICLES one tablet daily, takes 30mg. with 60mg. to make 90 mg. CYMBALTA 60 MG ORAL CAPSULE DELAYED RELEASE PARTICLES 299153 DULOXETINE HCL Inacti ve CYMBALTA 30 MG ORAL CAPSULE DELAYED RELEASE PARTICLES 3 caps daily CYMBALTA 30 MG ORAL CAPSULE DELAYED RELEASE PARTICLES 895551 DULOXE ROSANNE HCL Inactive HYDROCORTISONE 2.5 % EXTERNAL CREAM Apply four times a day to af fected area HYDROCORTISONE 2.5 % EXTERNAL CREAM 569597 HYDROCORTISO NE Inactive CLARITIN 10 MG ORAL TABLET 1 tablet by mouth daily as needed for allergies CLARITIN 10 MG ORAL TABLET 816059 LORATADINE Inact ranch[place] VENLAFAXINE HCL 75 MG ORAL TABLET 1tid VENLAFAXINE HCL 75 MG ORAL TABLET 682771 VENLAFAXINE HCL Inactive CENTRUM SILVER ADULT 50+ ORAL TABLET 1qd 2013 CENTRUM SILVER ADULT 50+ ORAL TABLET MULTIPLE VITAMINS-MINERALS Inactive CALCIUM + D 600-200 MG-UNIT TABS Take one by mouth daily CALCIUM + D 600-200 MG-UNIT TABS CALCIUM CARBONATE-VITAMIN D Inactive AMOXICILLIN 500 MG ORAL CAPSULE 2 caps tid for 10days AMOXICILLIN 500 MG ORAL CAPSULE 517330 AMOXICILLIN Inactive CYMBALTA 60 MG ORAL CAPSULE DELAYED RELEASE PARTICLES 1 cap by mouth daily CYMBALTA 60 MG ORAL CAPSULE DELAYED RELE ASE PARTICLES 036620 DULOXETINE HCL Inactive VITAMIN D 1000 UNIT ORAL TABLET 1qd 4 VITAMIN D 1000 UNIT ORAL TABLET CHOLECALCIFEROL Inactive CHERATUSSIN AC 100-10 MG/5ML ORAL SYRUP one teaspoon qid. 9 CHERATUSSIN AC 100-10 MG/5ML ORAL SYRUP GUAIFENESIN-CODEINE Inactive FLAGYL 500 MG ORAL TABLET 1 tablet by mouth three times daily 20 28/05/03 FLAGYL 500 MG ORAL TABLET 798784 METRONIDAZOLE Inacti ve CLARITIN 10 MG ORAL TABLET one tablet daily CLARITIN 10 MG ORAL TABLET 067016 LORATADINE Inactive TUSSIONEX PENNKINETIC ER 10-8 MG/5ML [...] affected area HYDROCORTISONE 2.5 % EXTERNAL CREAM 507462 HYDRO CORTISONE Inactive ACIPHEX 20 MG ORAL TABLET DELAYED RELEASE 1qd ACIPHEX 20 MG ORAL TABLET DELAYED RELEASE 674203 RABEPRAZOLE SODIUM Inactive B-12 2000 MCG ORAL TABLET 1qd B-12 2000 MCG ORAL TABLET CYANOCOBALAMIN Inactive VITAMIN D3 1000 UNIT ORAL TABLET 1qd VITAMIN D3 1000 UNIT ORAL TABLET CHOLECALCIFEROL Inactive CEPHALEXIN 250 MG ORAL CAPSULE Take one tablet qid 201 05/25/29 CEPHALEXIN 250 MG ORAL CAPSULE 238341 CEPHALEXIN Inactive FISH OIL 1200 MG ORAL CAPSULE One daily prn FISH OIL 1200 MG ORAL CAPSULE OMEGA-3 FATTY ACIDS Inactive ZITHROMAX Z-SANJANA 250 MG ORAL TABLET 2x1day,[id number] 2014 ZITHROMAX Z-SANJANA 250 MG ORAL TABLET 465662 AZITHROMYCIN [place] BENZONATATE 200 MG ORAL CAPSULE Take one capsule three times a d ay BENZONATATE 200 MG ORAL CAPSULE 266859 BENZONATATE Inactive GREEN TEA SLIM ORAL TABLET Take one daily GREEN TEA SLIM ORAL TABLET MISC NATURAL PRODUCTS Inactive PROBIOTIC ORAL CAPSULE Take one daily PROBIOTIC ORAL CAPSULE 7001832 PROBIOTIC PRODUCT Inactive VITAMIN D3 1000 UNIT ORAL TABLET Take two daily 05/05 VITAMIN D3 1000 UNIT ORAL TABLET CHOLECALCIFEROL Inactive HYDROCORTISONE 2.5 % EXTERNAL CREAM Apply three times a day to affected area HYDROCORTISONE 2.5 % EXTERNAL CREAM 581394 HYDRO CORTISONE Inactive MOBIC 15 MG ORAL TABLET 1 tablet by mouth daily in am with PPI 2 MOBIC 15 MG ORAL TABLET 483416 MELOXICAM Inactive CLARITIN-D 12 HOUR 5-120 MG ORAL TABLET EXTENDED RELEA SE 12 HOUR Take one tablet bid CLARITIN-D 12 HOUR 5 -120 MG ORAL TABLET EXTENDED RELEASE 12 HOUR LORATADINE-PSEUDOEPHEDRINE Inactive ACETAMINOPHEN 500 MG ORAL TABLET prn ACETAMINOPHEN 500 MG ORAL TABLET 169450 ACETAMINOPHEN Inactive CLARITIN-D 12 HOUR 5-120 MG [...] yeast 03/03 DIFLUCAN 150 MG ORAL TABLET 783425 FLUCONAZOLE Inactive DIFLUCAN 150 MG ORAL TABLET Take one tablet today and repeat in 72 hours DIFLUCAN 150 MG ORAL TABLET 463293 FLUCONAZOLE Inactive IBUPROFEN 200 MG ORAL TABLET Take 3 tablets every 6hrs IBUPROFEN 200 MG ORAL TABLET 562420 IBUPROFEN Inactive ZITHROMAX Z-SANJANA 250 MG ORAL TABLET Take 2 tablets toda y and 1 each day till gone ZITHROMAX Z-SANJANA 250 MG ORAL TABLET 682039 A ZITHROMYCIN Inactive PROAIR HFA 108 (90 [...] bowels 3 REGLAN 10 MG ORAL TABLET 736171 METOCLOPRAMIDE HCL Inactive PREDNISONE 20 MG ORAL TABLET Take 2 tablets by mouth d aily for 2 days then 1 tablet daily for 2 days. PREDNISONE 20 MG ORAL T ABLET 501248 PREDNISONE Inactive ZYRTEC ALLERGY 10 MG ORAL CAPSULE 1qd ZYRTEC ALLERGY 10 MG ORAL CAPSULE CETIRIZINE HCL Inactive ZITHROMAX 250 MG ORAL TABLET 2 po today, then 1 po q days 2-5 20 12/24/14 ZITHROMAX 250 MG ORAL TABLET 339782 AZITHROMYCIN [place] [facility] ZITHROMAX 250 MG ORAL TABLET two tablets now and one daily x 4 d ays ZITHROMAX 250 MG ORAL TABLET 906526 AZITHROMYCIN [place] [facility] PREDNISONE 20 MG ORAL TABLET 2 PO qd x 2d, 1 PO qd x 2d, 1/2 PO qd x 2d PREDNISONE 20 MG ORAL TABLET 130196 PREDNISONE Inactive SIMVASTATIN 40 MG ORAL TABLET one tablet daily SIMVASTATIN 40 MG ORAL TABLET 110124 SIMVASTATIN Inactive BACTRIM DS 800-160 MG ORAL TABLET 1bid BACTRIM DS 800-160 MG ORAL TABLET 787143 SULFAMETHOXAZOLE-TRIMETHOPRIM Inactive ZITHROMAX 250 MG ORAL TABLET 2 po today, then 1 po q days 2-5 20 26/12/21 ZITHROMAX 250 MG ORAL TABLET 445284 AZITHROMYCIN [place] [facility] ZITHROMAX 250 MG ORAL TABLET 2 po today, then 1 po q days 2-5 20 27/02/16 ZITHROMAX 250 MG ORAL TABLET 227228 AZITHROMYCIN [place] [facility] ZITHROMAX 250 MG ORAL TABLET 2 po today, then 1 po q days 2-5 20 26/02/30 ZITHROMAX 250 MG ORAL TABLET 816550 AZITHROMYCIN [place] ZITHROMAX 250 MG ORAL TABLET 2 po today, then 1 po q days 2-5 20 26/06/21 ZITHROMAX 250 MG ORAL TABLET 245574 AZITHROMYCIN [place] [facility] ZITHROMAX 250 MG ORAL TABLET 2 po today, then 1 po q days 2-5 20 31/03/18 ZITHROMAX 250 MG ORAL TABLET 000111 AZITHROMYCIN [place] [facility] ZITHROMAX Z-SANJANA 250 MG ORAL TABLET 2 today, then 1 daily for 4 d ays ZITHROMAX Z-SANJANA 250 MG ORAL TABLET 804016 AZITHROMYCIN Inactive AMOXICILLIN 500 MG ORAL CAPSULE Take 1 capsule by mout h three times a day X 10 days AMOXICILLIN 500 MG ORAL CAPSULE 026216 AMOX ICILLIN Inactive AMOXICILLIN-POT CLAVULANATE 875-125 MG ORAL TABLET 1 pill by mouth twice daily AMOXICILLIN-POT CLAVULANATE 875-125 MG ORAL TABL ET 870087 AMOXICILLIN-POT CLAVULANATE Inactive AUGMENTIN 875-125 MG ORAL TABLET Take one tablet twice a day with food AUGMENTIN 875-125 MG ORAL TABLET AMOXICILLIN-POT CLAVULANATE Inactive POLYTRIM 79653-8.1 UNIT/ML-% OPHTHALMIC SOLUTION 1 gtt to affected eye q3h x 7 days POLYTRIM 69517-9.1 UNIT/ML-% OPH THALMIC SOLUTION 290931 POLYMYXIN B-TRIMETHOPRIM Inactive MACROBID 100 MG ORAL CAPSULE 1 cap by mouth twice daily MACROBID 100 MG ORAL CAPSULE 1124160 NITROFURANTOIN MONOHYD MACRO In active Advance Directives Directive Description Start Date PERMISSION TO SHARE Immunizations Vaccine Administration Date Value Standard Servando cription influenza immunization (Flu Vax) has been administered 12/12 Done according to patient influenza virus vaccine, unspecified for mulation influenza immunization (Flu Vax) has been administered 04/16 Done according to patient influenza virus vaccine, unspecified for mulation Seasonal influenza vaccine, injectable, containing preservative, for > 3 years old (Afluria, FluLaval, Fluzone, Fluvirin, Fluarix, Agriflu(>= 18 yo)) Fluzone (>=3 yrs.) [[id number]] Influenza, seasonal, injec table Seasonal influenza vaccine, injectable, containing preservative, for > 3 years old (Afluria, FluLaval, Fluzone, Fluvirin, Fluarix, Agriflu(>= 18 yo)) Fluzone (>3 yrs.) [[id number]] Influenza, seasonal, inject able Seasonal influenza vaccine, injectable, containing preservative, for > 3 years old (Afluria, FluLaval, Fluzone, Fluvirin, Fluarix, Agriflu(>= 18 yo)) Fluarix (>3 yrs.) [[id number]] Influenza, seasonal, inject able Vital Signs Date Name Value Unit Range Description blood pressure, diastolic, repeated by physician 72 BP arrieta blood pressure, diastolic 72 mm[Hg] BP arrieta blood pressure, systolic, repeated by physician 123 BP sys blood pressure, systolic 123 mm[Hg] BP sys height E&M 59.5 [in_us] Bdy height pulse rate 92 /min Heart rate temperature E&M 98.4 [degF] Body temp erature weight E&M 157.50 [lb_av] Weight Measure d blood pressure, diastolic, repeated by physician 80 BP arrieta blood pressure, diastolic 80 mm[Hg] BP arrieta blood pressure, systolic, repeated by physician 140 BP sys blood pressure, systolic 140 mm[Hg] BP sys height E&M 59.5 [in_us] Bdy height pulse rate 69 /min Heart rate respiratory rate E&M 18 /min Resp rate temperature E&M 97.7 [degF] Body temp erature weight E&M 158 [lb_av] Weight Measure d blood pressure, diastolic, sitting 80 mm[Hg] BP arrieta blood pressure, diastolic, standing 82 mm[Hg] BP arrieta blood pressure, diastolic, repeated by physician 80 BP arrieta blood pressure, diastolic 80 mm[Hg] BP arrieta blood pressure, systolic, repeated by physician 133 BP sys blood pressure, systolic, sitting 133 mm[Hg] BP sys blood pressure, systolic, standing 138 mm[Hg] BP sys blood pressure, systolic 133 mm[Hg] BP sys height E&M 59.5 [in_us] Bdy height pulse rate 75 /min Heart rate pulse rate, sitting 75 /min Heart rate pulse rate, standing 82 /min Hear t rate temperature E&M 97.8 [degF] Body temp erature weight E&M 158.50 [lb_av] Weight Measure d blood pressure, diastolic, repeated by physician 84 BP arrieta blood pressure, diastolic 84 mm[Hg] BP arrieta blood pressure, systolic, repeated by physician 128 BP sys blood pressure, systolic 128 mm[Hg] BP sys height E&M 59.5 [in_us] Bdy height pulse rate 81 /min Heart rate temperature E&M 97.9 [degF] Body temp erature weight E&M 161 [lb_av] Weight Measure d Diagnostic Results Date Name Value Unit Range Description Lab Report: CBC, Comp. Metabolic Panel, Lipid Panel, Magnesium - Chemistry sodium, serum 138 mmol/L 342-053 7089/09/02 carbon dioxide, venous blood 28.0 mmol/L 21.0-32 [...] 0.20 mg/dL 0.00-1.00 cholesterol, serum 228 mg/dL 352-441 9823/09/02 triglyceride, serum, fasting 236 mg/dL 30-200 HDL [...] 0.36-3.74 Encounters Code Encounter Date Provider Facility CPT-90359 [id number] Vst-Est Level III 17:07:11 CDT Jenny Yang APRN [facility] [place] CPT-63398 [id number] Vst-Est Level III 17:51:[address] [place] [facility] CPT-40108 Level 3 Est. Patient 11:09:39 CDT Viviana Rubio [facility] CPT-36201 [id number] Vst-Est Level IV 09:14:31 CDT Conchis Yang [facility] [place] CPT-45567 [id number] Vst-Est Level III 22:05:50 CDT Jenny Yang [facility] [place] CPT-39814 Level 3 Est. Patient 15:00:[address] Will Cárdenas milka [facility] CPT-59141 Level 2 Est. Patient 13:46:20 CDT Ashley Meraz [facility] [place] CPT-50926 Level 2 Est. Patient 13:45:36 CDT Ashleykaleigh Meraz [facility] [place] CPT-99493 Level 3 Est. Patient 15:52:07 CDT Ashleykaleigh Meraz [facility] [place] CPT-03507 Level 3 Est. Patient 08:20:37 CDT Ashley Kt [facility] [place] CPT-32016 Level 3 Est. Patient 15:06:41 CDT Derrick donaldson MD [facility] CPT-85056 Level 3 Est. Patient 11:13:[address] Derrick donaldson MD [facility] CPT-58203 Level 3 Est. Patient 12:54:[address] Ashley Meraz [facility] [place] CPT-09094 Level 3 Est. Patient 23:34:[address] Ashley Meraz [facility] [place] CPT-60285 Level 3 Est. Patient 16:37:[address] Ashley peacock [facility] [place] CPT-74810 Level 3 Est. Patient 11:59:[address] Ashley peacock [facility] CPT-73722 Level 4 Est. Patient 07:40:13 CDT Wayne delatorre [facility] [place] CPT-91665 Level 4 Est. Patient 08:06:18 CDT Wayne delatorre [facility] CPT-11312 Level 3 Est. Patient 11:14:45 CDT Wayne delatorre [facility] [place] CPT-39964 Level 3 Est. Patient 10:14:55 CDT Wayne delatorre PA [facility] [place] CPT-62210 Level 4 Est. Patient 15:23:47 CDT [facility] CPT-72201 Level 3 Est. Patient 07:50:[address] Wayne delatorre [facility] [place] [facility] CPT-63204 Level 3 Est. Patient 14:47:52 CDT Wayne [facility]atorre [facility] CPT-88396 Level 3 Est. Patient 11:28:46 CDT Wayne delatorre PA [facility] [place] [facility] CPT-52473 Level 4 Est. Patient 14:48:43 CDT Wayne delatorre [facility] CPT-59823 Level 3 Est. Patient 14:10:[address] Wayne delatorre [facility] CPT-94113 Level 3 Est. Patient 16:44:[address] [facility] CPT-89124 Level 4 Est. Patient 08:22:[address] [facility] CPT-28524 Level 4 Est. Patient 07:10:30 CDT Wayne [facility]atorre [facility] CPT-56079 Level 3 Est. Patient 14:50:[address] Wayne [facility]atorre [facility] CPT-64243 Level 3 Est. Patient 09:46:[address] Zuelika cha APRN [facility] [place] [facility] CPT-75272 Level 4 Est. Patient 07:56:[address] Wayne delatorre [facility] CPT-38264 Level 3 Est. Patient 12:13:53 CDT Ismael Denton [facility] CPT-06306 Level 4 Est. Patient 12:28:[address]GE Wayne delatorre [facility] CPT-92675 Level 3 Est. Patient 15:23:[address] Wayne [facility]atorre [facility] CPT-50718 Level 3 Est. Patient 06:34:[address] [facility] Procedures Code Procedure Name Date Entry Date Standard Desc ription CPT-29521 Allergy Admin 2 17:02:53 CDT CPT-98459 Allergy Admin 2 16:32:35 CDT CPT-89746 Allergy Admin 2 16:26:27 CDT CPT-J3420 Vitamin B12 1000mcg (Cyanocobalamin) 16:32:13 CDT CPT-17891 Abx/Therapy Injection 16:32:13 CDT CPT-97619 Allergy Admin 2 16:32:12 CDT CPT-47645 Allergy Admin 2 16:05:03 CDT CPT-13695 Allergy Admin 2 16:35:15 CDT CPT-38548 Allergy Admin 2 16:20:41 CDT CPT-26037 Allergy Admin 2 11:25:21 CDT CPT-73586 Allergy Admin 2 15:46:12 CDT CPT-[id number] (4274F) Influenza immunization administe red or previously received 17:51:[address]GE CPT-31922 Spec Collection and Handling Fee 10:45:[address] CPT-[id number] (4274F) Influenza immunization administe red or previously received 10:20:17 CDT CPT-53150 Prv Med Est Pt 40-64yrs 16:26:57 CDT CPT-29602 Venipuncture Draw Fee 11:08:31 CDT CPT-60495 Magnesium - LAB USE ONLY 11:08:31 CDT 10/15 CPT-35344 TSH - LAB USE ONLY 11:08:31 CDT CPT-28443 Lipid - LAB USE ONLY 11:08:30 CDT 2 CPT-48256 CMP - LAB USE ONLY 11:08:30 CDT CPT-86763 CBC - LAB USE ONLY 11:08:30 CDT CPT-81694 Spec Collection and Handling Fee 16:14:51 C DT CPT-03460 UA w micro - LAB USE ONLY 16:14:51 CDT 2018 CPT-18398 Prv Med Est Pt 40-64yrs 08:34:49 CDT 10/01 CPT-51541 Sed Rate - LAB USE ONLY 10:50:49 CDT 10/02 CPT-26580 TSH - LAB USE ONLY 10:50:49 CDT CPT-96913 Lipid - LAB USE ONLY 10:50:49 CDT 0 CPT-12522 Magnesium - LAB USE ONLY 10:50:49 CDT 10/02 CPT-45822 CMP - LAB USE ONLY 10:50:49 CDT CPT-88616 CBC - LAB USE ONLY 10:50:49 CDT CPT-24960 Venipuncture Draw Fee 10:50:49 CDT CPT-49537 IV Hydration < or = 1 hr 22:05:50 CDT 04/16 CPT-J7030 Normal Saline 1000 mL 22:05:50 CDT CPT-78934 Abx/Therapy Injection 16:31:[address] JUDGE CPT-J2950 Phenergan 25 mg 16:31:[address] JUDGE CPT-79287 Abx/Therapy Injection 16:39:40 CDT CPT-96214 First Vx - Ix admin via ID I M or jet injects without counseling by physician 16:39:39 CDT CPT-05419 Prv Med Est Pt 40-64yrs 16:33:10 CDT 11/10 CPT-JTINJ Asp/Joint Injection 16:13:36 CDT CPT-21973 Allergy Admin 2 16:54:52 CDT CPT-80195 Allergy Admin 2 16:46:15 CDT CPT-19803 Allergy Admin 2 11:29:09 CDT CPT-31998 Allergy Admin 2 17:05:15 CDT CPT-48416 Allergy Admin 2 12:31:51 CDT CPT-45295 Allergy Admin 2 15:40:56 CDT CPT-95217 CBC - LAB USE ONLY 09:49:24 CDT CPT-33086 CMP - LAB USE ONLY 09:49:24 CDT CPT-37144 Lipid - LAB USE ONLY 09:49:24 CDT 8 CPT-77170 Venipuncture Draw Fee 09:49:24 CDT CPT-19045 Allergy Admin 2 10:46:11 CDT CPT-JTINJ Asp/Joint Injection 09:52:58 CDT CPT-93006 Skin tag rem 1-15 13:46:20 CDT CPT-45199 Knee, right, 3V - XRAY USE ONLY 13:07:09 CD T CPT-97752 Allergy Admin 2 11:56:38 CDT CPT-30669 Allergy Admin 2 12:00:55 CDT CPT-08791 Allergy Admin 2 16:42:13 CDT CPT-94637 Allergy Admin 2 16:27:55 CDT CPT-33500 Allergy Admin 2 13:24:26 CDT CPT-87965 Allergy Admin 2 17:17:[address] JUDGE CPT-84872 Allergy Admin 2 16:23:[address] JUDGE CPT-06497 Allergy Admin 2 16:26:[address] JUDGE CPT-00664 Allergy Admin 2 16:32:[address] JUDGE CPT-15675 Allergy Admin 2 17:43:[address] JUDGE CPT-90847 Allergy Admin 2 16:26:[address] JUDGE CPT-24278 Allergy Admin 2 12:31:[address] JUDGE CPT-78746 Allergy Admin 2 16:40:[address] JUDGE CPT-83961 Allergy Admin 2 17:07:36 CDT CPT-G0008 Administration of Influenza Virus Vaccine 17:01:01 CDT CPT-55959 First Vx - Ix admin via ID I M or jet injects without counseling by physician 17:01:01 CDT CPT-82337 Allergy Admin 2 12:06:54 CDT CPT-62794 Allergy Admin 2 17:04:46 CDT CPT-46506 Allergy Admin 2 16:34:48 CDT CPT-67074 Allergy Admin 2 17:04:51 CDT CPT-36763 Allergy Admin 2 16:25:14 CDT CPT-17535 Allergy Admin 2 10:52:02 CDT CPT-60181 Allergy Admin 2 11:45:31 CDT CPT-50631 Allergy Admin 2 12:02:20 CDT CPT-44399 Allergy Admin 2 15:47:29 CDT CPT-97049 Allergy Admin 2 13:25:44 CDT CPT-15311 Allergy Admin 2 10:51:13 CDT CPT-03694 CBC - LAB USE ONLY 10:44:39 CDT CPT-34385 CMP - LAB USE ONLY 10:44:39 CDT CPT-42296 Lipid - LAB USE ONLY 10:44:39 CDT 9 CPT-74177 Venipuncture Draw Fee 10:44:38 CDT CPT-91698 Allergy Admin 2 12:25:22 CDT CPT-19172 Allergy Admin 2 12:41:34 CDT CPT-59578 Allergy Admin 2 15:29:46 CDT CPT-60919 Allergy Admin 2 14:46:53 CDT CPT-58500 Allergy Admin 2 14:16:16 CDT CPT-23582 Allergy Admin 2 16:55:26 CDT CPT-62777 Allergy Admin 2 10:12:02 T CPT-93320 Allergy Admin 2 14:53:56 T CPT-00548 Allergy Admin 2 17:01:54 T CPT-55221 Allergy Admin 2 09:36:02 T CPT-63813 Allergy Admin 2 16:53:26 [facility] CPT-35314 Allergy Admin 2 16:59:41 [facility] CPT-57256 Allergy Admin 2 16:36:44 [facility] CPT-76102 Allergy Admin 2 16:17:16 [facility] CPT-22783 Allergy Admin 2 17:08:10 [facility] CPT-95812 Allergy Admin 2 12:16:08 [facility] CPT-61450 Allergy Admin 2 16:47:30 [facility] CPT-77032 Allergy Admin 2 16:59:44 [facility] CPT-29933 Allergy Admin 2 12:48:53 [facility] CPT-90521 Allergy Admin 2 10:19:[address] JUDGE CPT-75820 Allergy Admin 2 12:40:[address] JUDGE CPT-60339 Abx/Therapy Injection 17:21:[address] JUDGE CPT-90409 First Vx - Ix admin via ID I M or jet injects without counseling by physician 17:21:[address] JUDGE CPT-14810 Allergy Admin 2 17:20:[address] JUDGE CPT-32472 Allergy Admin 2 11:12:[address] JUDGE CPT-44209 Allergy Admin 2 17:02:39 CDT CPT-29360 BMP - LAB USE ONLY 10:33:02 CDT CPT-81675 CBC - LAB USE ONLY 10:33:02 CDT CPT-99039 Venipuncture Draw Fee 10:33:02 CDT CPT-14270 Abx/Therapy Injection 12:29:08 CDT CPT-87400 Allergy Admin 2 10:39:48 CDT CPT-12078 Allergy Admin 2 10:55:47 CDT CPT-PV Prev. Care Visit 10:10:00 CDT CPT-29821 Allergy Admin 2 11:31:20 CDT CPT-62585 Allergy Admin 2 16:53:45 CDT CPT-43706 Allergy Admin 2 16:36:42 CDT CPT-54111 Allergy Admin 2 16:30:19 CDT CPT-18383 Allergy Admin 2 15:39:35 CDT CPT-99464 Allergy Admin 2 17:51:32 CDT CPT-09145 Allergy Admin 2 11:50:50 CDT CPT-PV Prev. Care Visit 14:09:05 CDT CPT-99166 Allergy Admin 2 13:37:39 CDT CPT-74808 Abx/Therapy Injection 12:17:43 CDT CPT-22014 Venipuncture Draw Fee 10:39:55 CDT CPT-01406 Allergy Admin 2 12:04:53 CDT CPT-89441 Allergy Admin 2 10:04:39 CDT CPT-69452 Allergy Admin 2 12:15:35 CDT CPT-85766 Allergy Admin 2 17:04:36 CDT CPT-09370 Allergy Admin 2 16:25:49 CDT CPT-13494 Allergy Admin 2 17:30:06 CDT CPT-35030 Allergy Admin 2 10:11:48 CDT CPT-51717 Allergy Admin 2 17:06:13 CDT CPT-74215 Abx/Therapy Injection 12:23:07 CDT CPT-J0702 Celestone 12 mg (Betamethasone) 12:23:07 CD T CPT-88686 Venipuncture Draw Fee 10:26:42 CDT CPT-15158 Allergy Admin 2 12:10:01 CDT CPT-69097 Allergy Admin 2 15:13:[address] JUDGE CPT-33529 Allergy Admin 2 16:55:[address] JUDGE CPT-29289 Allergy Admin 2 10:13:[address] JUDGE CPT-37729 Venipuncture Draw Fee 10:06:[address] JUDGE CPT-83547 Allergy Admin 2 16:15:[address] JUDGE CPT-70131 Allergy Admin 2 16:40:[address] JUDGE CPT-28511 Allergy Admin 2 16:31:[address] JUDGE CPT-12975 Allergy Admin 2 16:38:[address] JUDGE CPT-72862 Allergy Admin 2 16:40:[address] JUDGE CPT-03792 Allergy Admin 2 08:34:[address] JUDGE CPT-66495 Allergy Admin 2 14:27:[address] JUDGE CPT-37156 Destruction bgn lsn up to 14 09:41:[address] JUDGE 2 CPT-53127 Allergy Admin 2 17:45:[address] JUDGE CPT-26129 Allergy Admin 2 14:59:[address] JUDGE CPT-48686 Allergy Admin 2 12:49:42 CDT CPT-31886 Administration single or combination vac cine inc oral 15:01:57 CDT CPT-45772 Fluzone Quadrivalent Intramuscular Suspe nsion 0.5 ML 15:01:57 CDT CPT-23145 Allergy Admin 2 15:07:08 CDT CPT-89217 Allergy Admin 2 15:39:01 CDT CPT-00871 Allergy Admin 2 17:40:11 CDT CPT-52160 Allergy Admin 2 16:07:08 CDT CPT-56635 Allergy Admin 2 16:08:07 CDT CPT-65267 Venipuncture Draw Fee 09:34:29 CDT CPT-61676 Allergy Admin 2 16:27:43 CDT CPT-82979 Allergy Admin 2 15:53:10 CDT CPT-64740 Allergy Admin 2 15:42:29 CDT CPT-63900 Allergy Admin 2 11:26:14 CDT CPT-37985 Allergy Admin 2 10:36:24 CDT CPT-17638 Allergy Admin 2 16:53:37 CDT CPT-12390 Allergy Admin 2 11:21:44 CDT CPT-29661 Allergy Admin 2 10:50:40 CDT CPT-10300 Allergy Admin 2 11:19:11 CDT CPT-41422 Venipuncture Draw Fee 11:12:25 CDT CPT-74463 Allergy Admin 2 11:14:51 CDT CPT-33679 Allergy Admin 2 16:53:11 CDT CPT-16391 Allergy Admin 2 11:45:56 CDT CPT-96257 Allergy Admin 2 12:51:39 CDT CPT-16772 Allergy Admin 2 12:08:56 CDT CPT-51263 Allergy Admin 2 15:29:45 CDT CPT-65589 Allergy Admin 2 16:34:01 CDT CPT-11275 Allergy Admin 2 16:36:46 CDT CPT-88168 Allergy Admin 2 15:19:16 CDT CPT-29672 Allergy Admin 2 16:13:25 CDT CPT-23651 Allergy Admin 2 17:06:17 CDT CPT-64033 Allergy Admin 2 10:42:[address] JUDGE CPT-95956 Allergy Admin 2 17:33:[address] JUDGE CPT-87083 Allergy Admin 2 10:53:[address] JUDGE CPT-93273 Allergy Admin 2 14:18:[address] JUDGE CPT-65413 Allergy Admin 2 10:18:[address] JUDGE CPT-45326 Allergy Admin 2 12:57:[address] JUDGE CPT-70577 Allergy Admin 2 16:53:[address] JUDGE CPT-58835 Allergy Admin 2 12:43:[address] JUDGE CPT-19651 Allergy Admin 2 13:14:[address] JUDGE CPT-02938 Pneumovax 23 Injection Injectable 25 MCG /0.5ML 09:51:[address] JUDGE CPT-G0009 Administration of Pneumococcal Vaccine 09:51:[address] JUDGE CPT-87641 Influenza split virus > age 3 09:51:[address] JUDGE CPT-G0008 Administration of Influenza Virus Vaccine 02/23 09:51:[address] JUDGE CPT-94928 Venipuncture Draw Fee 10:31:06 CDT CPT-J0702 Celestone 12 mg (Betamethasone) 11:34:17 CD T CPT-75429 Abx/Therapy Injection 11:34:17 CDT CPT-03923 Chest 2V Frontal and Lat 11:31:47 CDT 07/04 CPT-43118 Venipuncture Draw Fee 11:31:47 CDT CPT-05718 Allergy Admin 2 14:31:05 CDT CPT-86017 EKG Trac and Interp 08:42:32 CDT CPT-05575 Chest 2V Frontal and Lat 08:42:32 CDT 05/28 CPT-15485 Venipuncture Draw Fee 08:39:02 CDT CPT-14807 Allergy Admin 2 16:59:09 CDT CPT-23312 Allergy Admin 2 17:06:11 CDT CPT-72935 Allergy Admin 2 16:04:36 CDT CPT-99406 Venipuncture Draw Fee 16:32:[address] JUDGE CPT-37495 Venipuncture Draw Fee 10:54:[address] JUDGE CPT-73846 Allergy Admin 2 14:53:[address] JUDGE CPT-83075 Allergy Admin 2 10:23:[address] JUDGE CPT-80554 First Vx Component - Ix admi n via ID IM or jet inj without physician counseling 15:34:[address] JUDGE CPT-23488 Fluzone (>=3 yrs.) 15:34:[address] JUDGE CPT-89894 Allergy Admin 2 15:56:[address] JUDGE CPT-01960 Allergy Admin 2 11:08:[address] JUDGE CPT-60133 Allergy Admin 2 10:51:[address] JUDGE CPT-92843 Allergy Admin 2 15:38:[address] JUDGE CPT-63774 Allergy Admin 2 15:12:46 CDT CPT-86087 Allergy Admin 2 10:28:50 CDT CPT-04908 Allergy Admin 2 16:35:33 CDT CPT-23996 Allergy Admin 2 10:14:18 CDT CPT-35663 Abx/Therapy Injection 09:06:45 CDT CPT-J0702 Celestone 6 mg (Betamethasone) 09:06:45 CDT CPT-03307 Allergy Admin 2 15:51:15 CDT CPT-49513 Allergy Admin 2 10:40:16 CDT CPT-21740 Allergy Admin 2 16:35:55 CDT CPT-86597 Allergy Admin 2 13:12:52 CDT CPT-73050 Allergy Admin 2 16:06:50 CDT CPT-44670 Allergy Admin 2 11:04:24 CDT CPT-95469 Allergy Admin 2 10:44:50 CDT CPT-63065 Allergy Admin 2 15:13:40 CDT CPT-98113 Allergy Admin 2 15:00:03 CDT CPT-12872 Allergy Admin 2 10:37:38 CDT CPT-76961 Venipuncture Draw Fee 09:16:[address] JUDGE CPT-59695 Allergy Admin 2 11:15:[address] JUDGE CPT-51006 Postop F/U Visit 10:10:[address] JUDGE CPT-73798 Allergy Admin 2 13:05:[address] JUDGE CPT-08484 Postop F/U Visit 19:45:[address] JUDGE CPT-25338 Allergy Admin 2 11:52:[address] JUDGE CPT-43297 Allergy Admin 2 10:49:[address] JUDGE CPT-OV Office Visit 13:55:[address] JUDGE CPT-29076 Allergy Admin 2 12:54:[address] JUDGE CPT-OV Office Visit 14:04:[address] JUDGE CPT-85866 Venipuncture Draw Fee 10:29:[address] JUDGE CPT-03677 Allergy Admin 2 11:24:[address] JUDGE CPT-35789 Knee 3V 11:00:[address] JUDGE CPT-17363 C-Spine Min 4V 11:00:[address] JUDGE CPT-03352 Allergy Admin 2 13:38:[address] JUDGE CPT-58220 Venipuncture Draw Fee 11:33:37 CDT CPT-56083 Allergy Admin 2 15:34:37 CDT CPT-40909 Allergy Admin 2 14:11:42 CDT CPT-70185 Administration single or combination vac cine inc oral 12:51:42 CDT CPT-37466 Influenza split virus > age 3 12:51:42 CDT CPT-78587 Allergy Admin 2 11:58:43 CDT CPT-09558 Allergy Admin 2 11:29:32 CDT CPT-68771 Allergy Admin 2 10:55:19 CDT CPT-06163 Allergy Admin 2 12:38:54 CDT CPT-22887 Allergy Admin 2 13:01:47 CDT CPT-99424 Abx/Therapy Injection 12:41:18 CDT CPT-J0702 Celestone 12 mg (Betamethasone) 12:41:18 CD T CPT-20247 Abx/Therapy Injection 16:33:09 CDT CPT-J0702 Celestone 12 mg (Betamethasone) 16:33:09 CD T CPT-39424 Allergy Admin 2 15:49:09 CDT CPT-08822 Allergy Admin 2 12:08:56 CDT CPT-10442 Allergy Admin 2 12:19:10 CDT CPT-49003 Allergy Admin 2 12:46:56 CDT CPT-88300 Allergy Admin 2 15:05:13 CDT CPT-44681 Allergy Admin 2 15:36:20 CDT CPT-43904 Allergy Admin 2 09:58:[address] JUDGE CPT-57477 Allergy Admin 2 12:18:[address] JUDGE CPT-30504 Allergy Admin 2 10:01:[address] JUDGE CPT-44715 Allergy Admin 2 12:17:[address] JUDGE CPT-80608 Allergy Admin 2 10:06:[address] JUDGE CPT-38880 Allergy Admin 2 10:13:[address] JUDGE CPT-84349 Venipuncture Draw Fee 10:09:[address] JUDGE CPT-90985 Bone Density 12:24:[address] JUDGE CPT-95567 Allergy Admin 2 11:29:[address] JUDGE CPT-30541 Allergy Admin 2 16:07:[address] JUDGE CPT-48003 Breathing Treatment 06:34:[address] JUDGE CPT-J0702 Celestone 12 mg (Betamethasone) 06:34:33 CS T CPT-11358 Abx/Therapy Injection 06:34:[address] JUDGE CPT-14935 Breathing Tx 11:07:[address] JUDGE CPT-89409 Allergy Admin 2 10:02:33 CDT CPT-31828 Allergy Admin 2 10:02:33 CDT CPT-86572 Allergy Admin 2 15:26:19 CDT CPT-35620 Administration single or combination vac cine inc oral 15:41:12 CDT CPT-89384 Influenza split virus > age 3 15:41:12 CDT
--- OUTSIDE RECORDS SUMMARY | 2020-09-15 14:40 | XMS REPORT | Clinical Summary ---
Author Author Admin, Supriya Zuniga Organization [facility] Address Unknown Phone Unavailable [...] rhinitis, cause unspecified OSTEOARTHRITIS 715.90 Active Wayne YNAG Osteoarthrosis, unspecified whether generalized or localized, involving [...] DISC DISEASE, CERVICAL SPINE 722.4 Resol burak Wyane YANG Degeneration of cervical intervertebral disc SKIN [...] Yang APRN Pruritus vulvae Active Ashley Yokum [employer] Screening mammogram V76.12 Resolved Ashley Yokum A PRN Other screening mammogram Sinusitis, acute maxillary 461.0 Inactive 7 Ashley Yokum [employer] Acute maxillary sinusitis Diarrhea, acute 787.91 Resolved Ashley Yokum [employer] Diarrhea Vaginal candidiasis 112.1 Resolved Ashley Yokum A PRN Candidiasis of vulva and vagina Accidental fall E888.9 Resolved Ashley Yokum [employer] Unspecified fall Contusion of left hand, initial encounter 923.20 Resol burak Ashley Yokum [employer] Contusion of hand(s) Contusion of right upper arm, subsequent encounter V58.89 201 09/14/21 Resolved Ashley Yokum [employer] Encounter for other specified a ftercare Ganglion cyst of left wrist 727.41 Active Derrick Younger MD Ganglion of joint Body Mass Index 31.0-31.9 Adult Resolved 2017 Ashley Yokum [employer] Body Mass Index 31.0-31.9, adult Plantar fasciitis 728.71 Active Ashley Yokum [employer] Plantar fascial fibromatosis Bronchitis, acute 466.0 Inactive Ashley Yokum APR N Acute bronchitis Body Mass Index 30.0-30.9 Adult Resolved 2017 Ashley Yokum [employer] Body Mass Index 30.0-30.9, adult Allergic conjunctivitis, bilateral 372.14 Resolved 2 Ashley Yokum [employer] Other chronic allergic conjunctivitis Skin tags; irritated/inflammed 701.9 Resolved 11/10 Ashlye Yokum [employer] Unspecified hypertrophic and atrophic co nditions of skin Body Mass Index 31.0-31.9 Adult Refinement 2017 Ashley Yokum [employer] Body Mass Index 31.0-31.9, adult BMI 30-30.9 Refinement Ashley Yokum [employer] Body Mass Index 31.0-31.9, adult BMI 31-31.9 Refinement Ashley Yokum [employer] Body Mass Index 31.0-31.9, adult BMI 32-32.9 Refinement Lois Faith RN Body Mass Index 31.0-31.9, adult BMI 31-31.9 Active Viviana Rubio APRN-Julieta Body Mass Index 31.0-31.9, adult Major depression, recurrent, moderate 296.32 Active Ashley Yokum [employer] Major depressive disorder, recurrent epi sode, moderate degree Obesity Class I (BMI 30-34.9) Active Ashley Y okum [employer] Obesity, unspecified Nausea and vomiting 787.01 Resolved Ashley Yokum A PRN Nausea with vomiting Gastroenteritis acute 558.9 Resolved Ashley Yokum [employer] Other and unspecified noninfectious gastroenteritis and colitis GERD 530.81 Active Ashley Yokum [employer] E sophageal reflux Joint pain 719.40 Resolved Ashley Yokum [employer] Pain in joint, site unspecified Preventive health care, adult V70.0 Inactive /06 Ashley Yokum [employer] Routine general medical examination at a health care facility Blood in urine 599.70 Resolved Ashley Yokum [employer] Hematuria, unspecified Other abnormal findings in urine Resolved Ashley Yokum [employer] Urinary tract infection 599.0 Inactive Ashley Yok um [employer] Urinary tract infection, site not specified Chafing of skin 709.8 Resolved Ashley Yokum [employer] Other specified disorders of skin Preventive care V70.0 Active Supriya Huston A Routine general medical examination at a health care facility Gynecological examination, routine V72.3 Inactive 2 Ashley Yokum [employer] Special investigations and e xaminations - Gynecological examination Near syncope 780.2 Resolved Ashley Yokum [employer] Syncope and collapse Lightheadedness 780.4 Resolved Ashley Yokum [employer] Dizziness and giddiness Headache 784.0 Resolved Ashley Yokum [employer] Headache Sore throat 462 Resolved Ashley Yokum [employer] Acute pharyngitis Sinusitis - acute 461.9 Resolved Ashley Yokum APR N Acute sinusitis, unspecified Tired all the time 780.79 Resolved Ashley Yokum AP RN Other malaise and fatigue Fatigue 780.79 Inactive Ashley Yokum [employer] Other malaise and fatigue ABNORMAL WEIGHT GAIN ICD-783.1 Inactive Wayne YANG ALLERGIC RHINITIS ICD-477.9 Inactive Lois Angelo mendieta [employer] SINUSITIS ICD-473.9 Inactive Lois Deric [employer] 2012 WHEEZING ICD-786.07 Inactive Lois Deric [employer] 2012 UPPER RESPIRATORY INFECTION, ACUTE ICD-465.9 I nactive Lois Deric [employer] NEED FOR DESENSITIZATION TO ALLERGENS ICD-V07.1 8 Inactive Ashley Yokum [employer] OBESITY ICD-278.00 Inactive Wayne YANG CONTACT DERMATITIS DUE TO POISON ARANZA ICD-692.6 Inactive Lois Leos [employer] NEED PROPHYLACTIC VACCINATION&INOCULATION FLU ICD-V04.81 Inactive Wayne Harms PA GERD ICD-530.81 Inactive Lois Leos [employer] 03/22 LONG-TERM (CURRENT) USE OF OTHER MEDICATIONS ICD-V58.69 6 Inactive Wayne Harms PA NECK PAIN ICD-723.1 Inactive Wayne Harms PA 06/15 DEGENERATIVE DISC DISEASE, CERVICAL SPINE ICD-722.4 Inactive Wayne Harms PA SKIN TAG ICD-701.9 Inactive Wayne Harms PA G E R D ICD-530.81 Inactive Lois Leos [employer] CANDIDIASIS OF SKIN AND NAILS ICD-112.3 Inacti ve Wayne Harms PA AFTERCARE FOLLOW SURGERY MUSCULOSKEL SYSTEM NEC ICD-V58.78 Inactive Wayne Harms PA PHARYNGITIS ICD-462 Inactive Wayne Harms PA 05/03 OTHER SCREENING MAMMOGRAM ICD-V76.12 Inactive Wayne Harms PA DYSPAREUNIA, MILD ICD-625.0 Inactive Wayne Harm s PA CONTACT DERMATITIS DUE TO POISON ARANZA ICD-692.6 Inactive Wayne Harms PA Sinusitis, chronic ICD-473.9 Inactive Ashley vallejo [employer] Myalgia ICD-729.1 Inactive Wayne Harms PA Rheumatoid [...] PA Runny nose ICD-472.0 Inactive Ashley Yang [employer] Influenza like illness ICD-487.1 Inactive Wayne Moon PA Acute maxillary sinusitis ICD-461.0 Inactive Ashley Yokum [employer] Preventive health care ICD-V70.0 Inactive Jenny mo Yokum [employer] Well women exam ICD-V72.3 Inactive Ashley Yokum [employer] Screening mammogram ICD-V76.12 Inactive Ashley Yokum [employer] Sinusitis, acute maxillary ICD-461.0 Inactive Ashley Yokum [employer] Diarrhea, acute ICD-787.91 Inactive Ashley Merazu m [employer] Vaginal candidiasis ICD-112.1 Inactive Ashley Y abdonum [employer] Accidental fall ICD-E888.9 Inactive Ashley Yoku m [employer] Contusion of left hand, initial encounter ICD-923.20 Inactive Ashley Yokum [employer] Contusion of right upper arm, subsequent encounter ICD-V58.89 Inactive Ashley Yokum [employer] Body Mass Index 31.0-31.9 Adult Inac tive Ashley Yokum [employer] Bronchitis, acute ICD-466.0 Inactive Ashley Yok um [employer] Body Mass Index 30.0-30.9 Adult Inac tive Ashley Yokum [employer] Allergic conjunctivitis, bilateral ICD-372.14 I nactive Ashley Yokum [employer] Skin tags; irritated/inflammed ICD-701.9 Inact rancho Ashley Yokum [employer] Nausea and vomiting ICD-787.01 Inactive Ashley Yokum [employer] Gastroenteritis acute ICD-558.9 Inactive Conchis hi Yokum [employer] Joint pain ICD-719.40 Inactive Ashley Yokum APR N Preventive health care, adult ICD-V70.0 Inacti ve Ashley Yokum [employer] Blood in urine ICD-599.70 Inactive Ashley Yokum [employer] Other abnormal findings in urine Viking ctive Ashley Yokum [employer] Urinary tract infection ICD-599.0 Inactive K athi Yokum [employer] Chafing of skin ICD-709.8 Inactive Ashley Yokum [employer] Gynecological examination, routine ICD-V72.3 I nactive Ashley Yokum [employer] Near syncope ICD-780.2 Inactive Ashley Yokum AP RN Lightheadedness ICD-780.4 Inactive Ashley Yokum [employer] Headache ICD-784.0 Inactive Ashley Yokum [employer] 2020 Sore throat ICD-462 Inactive Ashley Yokum [employer] 02/17/17 Sinusitis - acute ICD-461.9 Inactive Ashley Yok um [employer] Tired all the time ICD-780.79 Inactive Ashley gutierrez [employer] Fatigue ICD-780.79 Inactive Ashley Yang [employer] 2020 Medication List Medication Instructions Start Date Stop Date Generic Name NDC Status Provider Patient Instruction ALPRAZOLAM 0.25 MG TABS TAKE 1 TO 2 TABLETS BY MOUTH THREE TIMES DAILY NEEDED ALPRAZOLAM 15075358208 Active Shanelle Rivera RN Active PHENTERMINE HCL 37.5 MG ORAL TABLET 1/2 qAM, can incre ase to 1 qAM - take 30 min before or 2 hrs after breakfast PHENTERMINE HCL 28665 636963 Active Ashley Yang [employer] Active MUCINEX D 60-600 MG ORAL TABLET EXTENDED RELEASE 12 HO UR 1 po BID PRN Congestion PSEUDOEPHEDRINE-GUAIFENESIN 58794784103 Active Ashley Yang [employer] Active ZYRTEC ALLERGY 10 MG ORAL CAPSULE 1qd CETIR IZINE HCL 69176145274 No Longer Active Ashley Yang [employer] Active HAIR, SKIN, NAILS VITAMINS take 1 tab by mouth 2x a day HAIR, SKIN, NAILS VITAMINS Active Ashley Yang APRN Active CENTRUM SILVER FOR WOMEN OVER 50 1 tab by mouth by day. CENTRUM SILVER FOR WOMEN OVER 50 Active Ashley Yang APRN Active VITAMIN D3 1000 UNIT ORAL CAPSULE 1 po qd CH OLECALCIFEROL 51911206980 Active Ashley Merazum [employer] Active PREDNISONE 20 MG ORAL TABLET Take 2 tablets by mouth d aily for 2 days then 1 tablet daily for 2 days. PREDNISONE 65028985051 No Longer Active Ashley Merazum [employer] Active MELOXICAM 15 MG ORAL TABLET TAKE 1 TABLET BY MOUTH IN THE MORNING 2 MELOXICAM 75045100550 Active LARRY Murillo Active CLARITIN 10 MG ORAL TABLET 1 tablet by mouth daily as needed for allergies LORATADINE 68143987855 Active Supriya Betzaida RMA Active SIMVASTATIN 40 MG ORAL TABLET TAKE 1 TABLET BY MOUTH ONCE DA JAVON AT BEDTIME SIMVASTATIN 23978261192 Active Marcy Medina, RMA Active QOPFKNS-DXJHYBBLT-VUIN ORAL TABLET MULT IPLE MINERALS 73841314448 Active Lois Faith, RN Active SERTRALINE HCL 100 MG ORAL TABLET Take 1 tablet by mouth once da javon SERTRALINE HCL 17296337349 Active Marcy Medina, RMA A ctive REGLAN 10 MG ORAL TABLET 1 po qid for bowels 3 METOCLOPRAMIDE HCL 40755492756 No Longer Active Ashley Yoеленаum ELAINA A ctive ADK 7421-3137-152 UNIT-MCG ORAL CAPSULE 1 daily VITAMINS A D K 04358063543 Active Ashley Yokum [employer] Active B-12 2500 MCG ORAL TABLET 1 daily CYANOCOBAL HUNT 31367189461 No Longer Active Ashley Yokum [employer] Active ESTRADIOL 2 MG TABS Take 1 tablet by mouth once daily ESTRADIOL 39114467525 Active Shanelle Nicole RN Active MACROBID 100 MG ORAL CAPSULE 1 cap by mouth twice daily NITROFURANTOIN MONOHYD MACRO 86777839063 No Longer Active Ashley Clarkekum [employer] Active FISH OIL + D3 6390-1732 MG-UNIT ORAL CAPSULE 1 dailly 4 FISH OIL-CHOLECALCIFEROL 59068202964 Active Ashley Yokum [employer] Acti ve PROAIR HFA 108 (90 BASE) MCG/ACT INHALATION AEROSOL SO LUTION 2 puffs four times a day as needed ALBUTEROL SULFATE 47149700458 No Long er Active Ashley Yokum [employer] Active ZITHROMAX Z-SANJANA 250 MG ORAL TABLET Take 2 tablets toda y and 1 each day till gone AZITHROMYCIN 62958361776 No Longer Active Ashley Yokum [employer] Active POLYTRIM 80446-4.1 UNIT/ML-% OPHTHALMIC SOLUTION 1 gtt to affected eye q3h x 7 days POLYMYXIN B-TRIMETHOPRIM 21640712534 No Longer Active Ashley Yokum [employer] Active IBUPROFEN 200 MG ORAL TABLET Take 3 tablets every 6hrs 201 09/17/15 IBUPROFEN 48762074146 No Longer Active Ashley Yokum [employer] Active DIFLUCAN 150 MG ORAL TABLET Take one tablet today and repeat in 72 hours FLUCONAZOLE 24616289147 No Longer Active Derrick cardenas MD Active DIFLUCAN 150 MG ORAL TABLET 1 by mouth for yeast 03/03 FLUCONAZOLE 08477089912 No Longer Active Ashley Yokum [employer] Active AUGMENTIN 875-125 MG ORAL TABLET Take one tablet twice a day with food AMOXICILLIN-POT CLAVULANATE 40805724739 No Longer Act rancho Ashley Yokum [employer] Active CALCIUM 600 + D 600-200 MG-UNIT ORAL TABLET Take one daily CALCIUM CARB-CHOLECALCIFEROL 29980976480 No Longer Active Ashley Yokum [employer] Active FLONASE 50 MCG/ACT NASAL SUSPENSION 1 spray each nostr il twice daily for allergies and runny nose FLUTICASONE PROPIONATE 87262329194 No Longer Active Ahsley Yokum [employer] Active CLARITIN-D 12 HOUR 5-120 MG ORAL TABLET EXTENDED RELEA SE 12 HOUR Take one tablet BID as needed for allergies LORATADINE-PSEUDOEP HEDRINE 83199004731 No Longer Active Beth Naff [employer] OPERATOR Active AMOXICILLIN-POT CLAVULANATE 875-125 MG ORAL TABLET 1 pill by mouth twice daily AMOXICILLIN-POT CLAVULANATE 95233216745 No Longer Act rancho Ashley Yokum [employer] Active AMOXICILLIN 500 MG ORAL CAPSULE Take 1 capsule by mout h three times a day X 10 days AMOXICILLIN 80246775343 No Longer Active Wayne Denys arms PA Active PROBIOTIC DAILY ORAL CAPSULE Take one daily PROBIO TIC PRODUCT 09892082327 Active Wayne Red PA Active TYLENOL 325 MG ORAL TABLET Take 2 every 6hrs prn A CETAMINOPHEN 53799604086 Active Wayne Red PA Active ACETAMINOPHEN 500 MG ORAL TABLET prn RICH TAMINOPHEN 45833559297 No Longer Active Wayne Harms PA Active CLARITIN-D 12 HOUR 5-120 MG ORAL TABLET EXTENDED RELEA SE 12 HOUR Take one tablet bid LORATADINE-PSEUDOEPHEDRINE 54714852702 No Longe r Active Wayne Harms PA Active MOBIC 15 MG ORAL TABLET 1 tablet by mouth daily in am with PPI 2 MELOXICAM 34416659321 No Longer Active Wayne Harms PA Acti ve HYDROCORTISONE 2.5 % EXTERNAL CREAM Apply three times a day to affected area HYDROCORTISONE 43709880336 No Longer Active Wayne Harms PA Active VITAMIN D3 1000 UNIT ORAL TABLET Take two daily CHOLECALCIFEROL 20724022451 No Longer Active Wayne Harms PA Active PROBIOTIC ORAL CAPSULE Take one daily PROBIOTIC PRODUCT 97039324190 No Longer Active Wayne Harms PA Active GREEN TEA SLIM ORAL TABLET Take one daily [facility] 73188432729 No Longer Active Wayne Harms PA Active BENZONATATE 200 MG ORAL CAPSULE Take one capsule three times a d ay BENZONATATE 22729080010 No Longer Active Wayne Harms PA Act rancho ZITHROMAX Z-SANJANA 250 MG ORAL TABLET 2 today, then 1 daily for 4 d ays AZITHROMYCIN 83150986301 No Longer Active Wayne Harms PA Ac tive ZITHROMAX 250 MG ORAL TABLET 2 po today, then 1 po q days 2-5 20 31/03/18 AZITHROMYCIN 87394662799 No Longer Active Beth Turner [employer] RIDE OPERATOR Active OMEPRAZOLE 20 MG ORAL CAPSULE DELAYED RELEASE 1 tablet by cox branson daily OMEPRAZOLE 22415496732 Active Supriya Huston RMA Active ZITHROMAX Z-SANJANA 250 MG ORAL TABLET 2x1day,8b5ooco 2014 AZITHROMYCIN 39666318891 No Longer Active Wayne Harms PA Active FISH OIL 1200 MG ORAL CAPSULE One daily prn OME GA-3 FATTY ACIDS 10494903199 No Longer Active Wayne Harms PA Active CEPHALEXIN 250 MG ORAL CAPSULE Take one tablet qid 201 05/25/29 CEPHALEXIN 34196513198 No Longer Active Wayne Harms PA Active VITAMIN D3 1000 UNIT ORAL TABLET 1qd CHOLEC ALCIFEROL 92251188590 No Longer Active Wayne Harms PA Active B-12 2000 MCG ORAL TABLET 1qd CYANOCOBALAMI N 91376916892 No Longer Active Wayne Harms PA Active ACIPHEX 20 MG ORAL TABLET DELAYED RELEASE 1qd 10/28 RABEPRAZOLE SODIUM 59441793813 No Longer Active Wayne Harms PA Active HYDROCORTISONE 2.5 % EXTERNAL CREAM apply 3-4 times a day to affected area HYDROCORTISONE 44363462838 No Longer Active Wayne Harms PA Active MUCINEX 600 MG ORAL TABLET EXTENDED RELEASE 12 HOUR 2qd GUAIFENESIN 48281613076 No Longer Active Wayne Harms PA Active TUSSIONEX PENNKINETIC ER 10-8 MG/5ML ORAL SUSPENSION E XTENDED RELEASE 5ml po q12hr PRN Cough HYDROCOD POLST-CHLORPHEN POLST 5 4729728319 No Longer Active Wayne Harms PA Active ZITHROMAX 250 MG ORAL TABLET 2 po today, then 1 po q days 2-5 20 26/06/21 AZITHROMYCIN 89174272615 No Longer Active Wayne Harms PA Ac tive CLARITIN 10 MG ORAL TABLET one tablet daily THEO ATADINE 49397768639 No Longer Active Wayne Harms PA Active FLAGYL 500 MG ORAL TABLET 1 tablet by mouth three times daily 20 28/05/03 METRONIDAZOLE 53540646349 No Longer Active Wayne Harms PA A ctive CHERATUSSIN AC 100-10 MG/5ML ORAL SYRUP one teaspoon qid. 9 GUAIFENESIN-CODEINE 59811956936 No Longer Active Wayne Harms PA Act rancho VITAMIN D 1000 UNIT ORAL TABLET 1qd CHOLECA LCIFEROL 81017187200 No Longer Active Wayne Harms PA Active CYMBALTA 60 MG ORAL CAPSULE DELAYED RELEASE PARTICLES 1 cap by mouth daily DULOXETINE HCL 77459402926 No Longer Active Wayne Harms PA Active AMOXICILLIN 500 MG ORAL CAPSULE 2 caps tid for 10days AMOXICILLIN 15486014184 No Longer Active Wayne Harms PA Active CALCIUM + D 600-200 MG-UNIT TABS Take one by mouth daily CALCIUM CARBONATE-VITAMIN D 66594405178 No Longer Active Wayne Harms PA Active CENTRUM SILVER ADULT 50+ ORAL TABLET 1qd 2013 MULTIPLE VITAMINS-MINERALS 59172899169 No Longer Active Wayne Harms PA Active VENLAFAXINE HCL 75 MG ORAL TABLET 1tid VE NLAFAXINE HCL 85245451152 No Longer Active Wayne Harms PA Active CLARITIN 10 MG ORAL TABLET 1 tablet by mouth daily as needed for allergies LORATADINE 14909191438 No Longer Active Wayne Harms PA Acti ve HYDROCORTISONE 2.5 % EXTERNAL CREAM Apply four times a day to af fected area HYDROCORTISONE 49954113283 No Longer Active Wayne Harms PA Active ZITHROMAX 250 MG ORAL TABLET 2 po today, then 1 po q days 2-5 20 26/02/30 AZITHROMYCIN 22354500491 No Longer Active Wayne Harms PA Ac tive ZITHROMAX 250 MG ORAL TABLET 2 po today, then 1 po q days 2-5 20 27/02/16 AZITHROMYCIN 17390632663 No Longer Active Wayne Harms PA Ac tive CYMBALTA 30 MG ORAL CAPSULE DELAYED RELEASE PARTICLES 3 caps daily DULOXETINE HCL 46897175699 No Longer Active Wayne Harms PA Active CYMBALTA 60 MG ORAL CAPSULE DELAYED RELEASE PARTICLES one tablet daily, takes 30mg. with 60mg. to make 90 mg. DULOXETINE HCL 11513127398 No Longer Active Wayne Harms PA Active CYMBALTA 30 MG ORAL CAPSULE DELAYED RELEASE PARTICLES 1 daily wi th 60mg DULOXETINE HCL 36231980227 No Longer Active Wayne Harms PA Active ZITHROMAX 250 MG ORAL TABLET 2 po today, then 1 po q days 2-5 20 26/12/21 AZITHROMYCIN 24273957580 No Longer Active Ismael YANG Active PREDNISONE 20 MG ORAL TABLET 3tab x 2days,2tab x 2days ,1tab x 2days,1/2tab x 2days PREDNISONE 11318355946 No Longer Active Wayne Vera jarvis PA Active PREMARIN 0.625 MG ORAL TABLET Take one by mouth daily ESTROGENS CONJUGATED 78645426099 No Longer Active Wayne Harms PA Active ZITHROMAX 250 MG ORAL TABLET 2 po today, then 1 po q days 2-5 20 26/06/19 AZITHROMYCIN 10077163519 No Longer Active Nereyda Lucke Activ e OMEGA-3 1000 MG ORAL CAPSULE 2qd OMEGA-3 FA TTY ACIDS 84351487236 No Longer Active Wayne Harms PA Active BENADRYL ITCH STOPPING 1-0.1 % EXTERNAL CREAM prn DIPHENHYDRAMINE- ZINC ACETATE 91036540858 No Longer Active Wayne Harms PA Active LOTRISONE 1-0.05 % EXTERNAL CREAM Apply bid CLOTRIMAZOLE-BETAMETHASONE 56841038055 No Longer Active Wayne Harms PA Active ZITHROMAX Z-SANJANA 250 MG ORAL TABLET take as directed 20 26/04/19 AZITHROMYCIN 55955810291 No Longer Active Wayne Harms PA Active NYSTATIN 771226 UNIT/GM EXTERNAL POWDER Apply to affected areas BID NYSTATIN 49965339626 No Longer Active Wayne Harms PA Acti ve BENADRYL 25 MG ORAL CAPSULE prn DIPHENHYDRAMINE HCL 20449761228 Active Wayne Harms PA Active LOTRISONE 1-0.05 % EXTERNAL CREAM apply twice a day 20 25/02/17 CLOTRIMAZOLE-BETAMETHASONE 76032599090 No Longer Active Wayne Harms PA Active HYDROCODONE-ACETAMINOPHEN 5-325 MG ORAL TABLET 1-2 every 4hr s prn pain HYDROCODONE-ACETAMINOPHEN 99440549377 No Longer Activ e Wayne Harms PA Active VICODIN 5-300 MG ORAL TABLET 1-2 tabs every 6hrs as needed for p ain HYDROCODONE-ACETAMINOPHEN 98777683962 No Longer Active Wayne Harms PA Active BENADRYL 25 MG ORAL CAPSULE 1prn DIPHENHYDRA MINE HCL 53792922926 No Longer Active Jillina Frazell [employer] Active ROBITUSSIN DM 100-10 MG/5ML ORAL SYRUP 2 teaspoons four times a day DEXTROMETHORPHAN-GUAIFENESIN 19399680986 No Longer Active Jillina Frazell [employer] Active ACIPHEX 20 MG ORAL TABLET DELAYED RELEASE Take one by mouth daily RABEPRAZOLE SODIUM 10351884821 No Longer Active Jillina Frazell [employer] Active TUMS 500 MG ORAL TABLET CHEWABLE prn SADIQ CIUM CARBONATE ANTACID 45237919695 No Longer Active Jillina Frazell [employer] Active PEPTO-BISMOL 524 MG/30ML ORAL SUSPENSION prn 02/26 BISMUTH SUBSALICYLATE 54634901744 No Longer Active Jillina Frazell [employer] Active BACTRIM DS 800-160 MG ORAL TABLET 1bid SULFAMETHOXAZOLE-TRIMETHOPRIM 76868606857 No Longer Active Beth Naff FLUME RIDE OPERATOR Active GAVISCON EXTRA RELIEF FORMULA CHEW prn A LUM HYDROXIDE-MAG CARBONATE CHEW 82110167864 Active Wayne Harms PA Active DIFLUCAN 150 MG ORAL TABLET 1stat FLUCONAZOL E 92614462531 No Longer Active Wayne Harms PA Active AUGMENTIN 875-125 MG ORAL TABLET 1 tab by mouth twice daily with food AMOXICILLIN-POT CLAVULANATE 13682330623 No Longer Act rancho Wayne Harms PA Active FLUTICASONE PROPIONATE 50 MCG/ACT NASAL SUSPENSION 1 t o 2 sprays each nostril twice a day FLUTICASONE PROPIONATE 82018580655 No Lo nger Active Wayne Harms PA Active HYDROCORTISONE 2.5 % EXTERNAL CREAM apply 2-4 times a day, a s directed, prn HYDROCORTISONE 29040633442 No Longer Active Wayne Harms PA Active ZITHROMAX Z-SANJANA 250 MG ORAL TABLET A ZITHROMYCIN 66057312234 No Longer Active Wayne Harms PA Active SIMVASTATIN 40 MG ORAL TABLET one tablet daily SIMVASTATIN 37589755656 No Longer Active Misty Yoo LPN Active LOVASTATIN 40 MG ORAL TABLET Take one by mouth daily 12/11 LOVASTATIN 17387579304 No Longer Active Misty Yoo FLUME RIDE OPERATOR Active PREDNISONE 20 MG ORAL TABLET 2 PO qd x 2d, 1 PO qd x 2d, 1/2 PO qd x 2d PREDNISONE 97963779743 No Longer Active Ismael silva PA Active ZITHROMAX 250 MG ORAL TABLET two tablets now and one daily x 4 d ays AZITHROMYCIN 89702905326 No Longer Active Misty oYo FLUME RIDE OPERATOR Active ZOLPIDEM TARTRATE 10MG TABS (ZOLPIDEM TARTRATE) 1 at bedtime as needed Active Supriya Betzaida RMA Active CLOBETASOL PROPIONATE 0.05 % EXTERNAL CREAM apply as directed CLOBETASOL PROPIONATE 22259394956 No Longer Active Wayne Harms PA A ctive CYMBALTA 30 MG ORAL CAPSULE DELAYED RELEASE PARTICLES takes 90mg qod alt with 60mg DULOXETINE HCL 18912138442 No Longer Active Wayne Harm s PA Active ZITHROMAX 250 MG ORAL TABLET 2 po today, then 1 po q days 2-5 20 12/24/14 AZITHROMYCIN 66215892940 No Longer Active Wayne Harms PA Ac tive TRIAMCINOLONE ACETONIDE 0.1 % EXTERNAL CREAM apply qid TRIAMCINOLONE ACETONIDE 01425327029 No Longer Active Wayne Harms PA Active ALPRAZOLAM 0.25 MG ORAL TABLET 1 tab three times a day 201 02/23/14 ALPRAZOLAM 87198792828 No Longer Active Wayne Harms PA Active ZOLPIDEM TARTRATE 5 MG ORAL TABLET 1 at bedtime as needed ZOLPIDEM TARTRATE 22967122481 No Longer Active Beth Turner FLUME RIDE OPERATOR Active ALPRAZOLAM 0.25 MG ORAL TABLET 1 tab three times a day ALPRAZOLAM 0.25 MG ORAL TABLET 663179 ALPRAZOLAM Inactive TRIAMCINOLONE ACETONIDE 0.1 % EXTERNAL CREAM apply qid TRIAMCINOLONE ACETONIDE 0.1 % EXTERNAL CREAM 8706471 TRIAMCINOLONE A CETONIDE Inactive CYMBALTA 30 MG ORAL CAPSULE DELAYED RELEASE PARTICLES takes 90mg qod alt with 60mg CYMBALTA 30 MG ORAL CAPSULE DELAYED RELEA SE PARTICLES 802866 DULOXETINE HCL Inactive CLOBETASOL PROPIONATE 0.05 % EXTERNAL CREAM apply as directed CLOBETASOL PROPIONATE 0.05 % EXTERNAL CREAM 755225 CLOBETASOL PROPI KELVIN Inactive LOVASTATIN 40 MG ORAL TABLET Take one by mouth daily 2 LOVASTATIN 40 MG ORAL TABLET 345372 LOVASTATIN Inactive ZITHROMAX Z-SANJANA 250 MG ORAL TABLET 03/03 ZITHROMAX Z-SANJANA 250 MG ORAL TABLET 410550 AZITHROMYCIN Inactive HYDROCORTISONE 2.5 % EXTERNAL CREAM apply 2-4 times a day, a s directed, prn HYDROCORTISONE 2.5 % EXTERNAL CREAM 724006 HYDRO CORTISONE Inactive FLUTICASONE PROPIONATE 50 MCG/ACT NASAL SUSPENSION 1 t o 2 sprays each nostril twice a day FLUTICASONE PROPIONA TE 50 MCG/ACT NASAL SUSPENSION 8540915 FLUTICASONE PROPIONATE Inactive AUGMENTIN 875-125 MG ORAL TABLET 1 tab by mouth twice daily with food AUGMENTIN 875-125 MG ORAL TABLET AMOXICIL BLOSSOM-POT CLAVULANATE Inactive DIFLUCAN 150 MG ORAL TABLET 1stat DIFLUCAN 150 MG ORAL TABLET 516734 FLUCONAZOLE Inactive PEPTO-BISMOL 524 MG/30ML ORAL SUSPENSION prn PEPTO-BISMOL 524 MG/30ML ORAL SUSPENSION BISMUTH SUBSALICYLATE Inactive TUMS 500 MG ORAL TABLET CHEWABLE prn TUMS 500 MG ORAL TABLET CHEWABLE 799568 CALCIUM CARBONATE ANTACID Inactive ACIPHEX 20 MG ORAL TABLET DELAYED RELEASE Take one by mouth daily ACIPHEX 20 MG ORAL TABLET DELAYED RELEASE 700641 RABEPRAZOLE SODIUM Inactive ROBITUSSIN DM 100-10 MG/5ML [...] pain HYDROCODONE-ACETAMINOPHEN 5-325 MG ORAL TABLET 8 77923 HYDROCODONE-ACETAMINOPHEN Inactive LOTRISONE 1-0.05 % EXTERNAL CREAM apply twice a day 20 25/02/17 LOTRISONE 1- 0.05 % EXTERNAL CREAM CLOTRIMAZOLE-BETAMETHASONE Inactive NYSTATIN 737715 UNIT/GM EXTERNAL POWDER Apply to affected areas BID NYSTATIN 700194 UNIT/GM EXTERNAL POWDER 622879 NYSTATIN Inactive ZITHROMAX Z-SANJANA 250 MG ORAL TABLET take as directed 20 26/04/19 ZITHROMAX Z-SANJANA 250 MG ORAL TABLET 874332 AZITHROMYCIN Inact rancho LOTRISONE 1-0.05 % EXTERNAL CREAM Apply bid LOTRISONE 1- 0.05 % EXTERNAL CREAM CLOTRIMAZOLE-BETAMETHASONE Inactive BENADRYL ITCH STOPPING 1-0.1 % EXTERNAL CREAM prn BENADRYL ITCH STOPPING 1-0.1 % EXTERNAL CREAM DIPHENHYDRAMINE-ZINC ACETATE Inactive OMEGA-3 1000 MG ORAL CAPSULE 2qd OMEGA-3 1000 MG ORAL CAPSULE 491109 OMEGA-3 FATTY ACIDS Inactive ZITHROMAX 250 MG ORAL TABLET 2 po today, then 1 po q days 2-5 20 26/06/19 ZITHROMAX 250 MG ORAL TABLET 289846 AZITHROMYCIN [facility] PREMARIN 0.625 MG ORAL TABLET Take one by mouth daily PREMARIN 0.625 MG ORAL TABLET ESTROGENS CONJUGATED Inactive PREDNISONE 20 MG ORAL TABLET 3tab x 2days,2tab x 2days ,1tab x 2days,1/2tab x 2days PREDNISONE 20 MG ORAL TABLET 196698 PREDNIS ONE Inactive CYMBALTA 30 MG ORAL CAPSULE DELAYED RELEASE PARTICLES 1 daily wi th 60mg CYMBALTA 30 MG ORAL CAPSULE DELAYED RELEASE PARTICLES 575876 DULOXETINE HCL Inactive CYMBALTA 60 MG ORAL CAPSULE DELAYED RELEASE PARTICLES one tablet daily, takes 30mg. with 60mg. to make 90 mg. CYMBALTA 60 MG ORAL CAPSULE DELAYED RELEASE PARTICLES 736525 DULOXETINE HCL Inacti ve CYMBALTA 30 MG ORAL CAPSULE DELAYED RELEASE PARTICLES 3 caps daily CYMBALTA 30 MG ORAL CAPSULE DELAYED RELEASE PARTICLES 406539 DULOXE ROSANNE HCL Inactive HYDROCORTISONE 2.5 % EXTERNAL CREAM Apply four times a day to af fected area HYDROCORTISONE 2.5 % EXTERNAL CREAM 453306 HYDROCORTISO NE Inactive CLARITIN 10 MG ORAL TABLET 1 tablet by mouth daily as needed for allergies CLARITIN 10 MG ORAL TABLET 409939 LORATADINE Inact rancho VENLAFAXINE HCL 75 MG ORAL TABLET 1tid VENLAFAXINE HCL 75 MG ORAL TABLET 833373 VENLAFAXINE HCL Inactive CENTRUM SILVER ADULT 50+ ORAL TABLET 1qd 2013 CENTRUM SILVER ADULT 50+ ORAL TABLET MULTIPLE VITAMINS-MINERALS Inactive CALCIUM + D 600-200 MG-UNIT TABS Take one by mouth daily CALCIUM + D 600-200 MG-UNIT TABS CALCIUM CARBONATE-VITAMIN D Inactive AMOXICILLIN 500 MG ORAL CAPSULE 2 caps tid for 10days AMOXICILLIN 500 MG ORAL CAPSULE 744606 AMOXICILLIN Inactive CYMBALTA 60 MG ORAL CAPSULE DELAYED RELEASE PARTICLES 1 cap by mouth daily CYMBALTA 60 MG ORAL CAPSULE DELAYED RELE ASE PARTICLES 651199 DULOXETINE HCL Inactive VITAMIN D 1000 UNIT ORAL TABLET 1qd 4 VITAMIN D 1000 UNIT ORAL TABLET CHOLECALCIFEROL Inactive CHERATUSSIN AC 100-10 MG/5ML ORAL SYRUP one teaspoon qid. 9 CHERATUSSIN AC 100-10 MG/5ML ORAL SYRUP GUAIFENESIN-CODEINE Inactive FLAGYL 500 MG ORAL TABLET 1 tablet by mouth three times daily 20 28/05/03 FLAGYL 500 MG ORAL TABLET 996824 METRONIDAZOLE Inacti ve CLARITIN 10 MG ORAL TABLET one tablet daily CLARITIN 10 MG ORAL TABLET 217016 LORATADINE Inactive TUSSIONEX PENNKINETIC ER 10-8 MG/5ML [...] affected area HYDROCORTISONE 2.5 % EXTERNAL CREAM 495256 HYDRO CORTISONE Inactive ACIPHEX 20 MG ORAL TABLET DELAYED RELEASE 1qd ACIPHEX 20 MG ORAL TABLET DELAYED RELEASE 649566 RABEPRAZOLE SODIUM Inactive B-12 2000 MCG ORAL TABLET 1qd B-12 2000 MCG ORAL TABLET CYANOCOBALAMIN Inactive VITAMIN D3 1000 UNIT ORAL TABLET 1qd VITAMIN D3 1000 UNIT ORAL TABLET CHOLECALCIFEROL Inactive CEPHALEXIN 250 MG ORAL CAPSULE Take one tablet qid 201 05/25/29 CEPHALEXIN 250 MG ORAL CAPSULE 395079 CEPHALEXIN Inactive FISH OIL 1200 MG ORAL CAPSULE One daily prn FISH OIL 1200 MG ORAL CAPSULE OMEGA-3 FATTY ACIDS Inactive ZITHROMAX Z-SANJANA 250 MG ORAL TABLET 2x1day,6e0xvcg 2014 ZITHROMAX Z-SANJANA 250 MG ORAL TABLET 471907 AZITHROMYCIN Inact ranch[place] BENZONATATE 200 MG ORAL CAPSULE Take one capsule three times a d ay BENZONATATE 200 MG ORAL CAPSULE 650569 BENZONATATE Inactive GREEN TEA SLIM ORAL TABLET Take one daily GREEN TEA SLIM ORAL TABLET MISC NATURAL PRODUCTS Inactive PROBIOTIC ORAL CAPSULE Take one daily PROBIOTIC ORAL CAPSULE 9561344 PROBIOTIC PRODUCT Inactive VITAMIN D3 1000 UNIT ORAL TABLET Take two daily 05/05 VITAMIN D3 1000 UNIT ORAL TABLET CHOLECALCIFEROL Inactive HYDROCORTISONE 2.5 % EXTERNAL CREAM Apply three times a day to affected area HYDROCORTISONE 2.5 % EXTERNAL CREAM 981936 HYDRO CORTISONE Inactive MOBIC 15 MG ORAL TABLET 1 tablet by mouth daily in am with PPI 2 MOBIC 15 MG ORAL TABLET 889538 MELOXICAM Inactive CLARITIN-D 12 HOUR 5-120 MG ORAL TABLET EXTENDED RELEA SE 12 HOUR Take one tablet bid CLARITIN-D 12 HOUR 5 -120 MG ORAL TABLET EXTENDED RELEASE 12 HOUR LORATADINE-PSEUDOEPHEDRINE Inactive ACETAMINOPHEN 500 MG ORAL TABLET prn ACETAMINOPHEN 500 MG ORAL TABLET 534112 ACETAMINOPHEN Inactive CLARITIN-D 12 HOUR 5-120 MG [...] yeast 03/03 DIFLUCAN 150 MG ORAL TABLET 661916 FLUCONAZOLE Inactive DIFLUCAN 150 MG ORAL TABLET Take one tablet today and repeat in 72 hours DIFLUCAN 150 MG ORAL TABLET 128481 FLUCONAZOLE Inactive IBUPROFEN 200 MG ORAL TABLET Take 3 tablets every 6hrs IBUPROFEN 200 MG ORAL TABLET 739273 IBUPROFEN Inactive ZITHROMAX Z-SANJANA 250 MG ORAL TABLET Take 2 tablets toda y and 1 each day till gone ZITHROMAX Z-SANJANA 250 MG ORAL TABLET 600625 A ZITHROMYCIN Inactive PROAIR HFA 108 (90 [...] bowels 3 REGLAN 10 MG ORAL TABLET 703082 METOCLOPRAMIDE HCL Inactive PREDNISONE 20 MG ORAL TABLET Take 2 tablets by mouth d aily for 2 days then 1 tablet daily for 2 days. PREDNISONE 20 MG ORAL T ABLET 869819 PREDNISONE Inactive ZYRTEC ALLERGY 10 MG ORAL CAPSULE 1qd ZYRTEC ALLERGY 10 MG ORAL CAPSULE CETIRIZINE HCL Inactive ZITHROMAX 250 MG ORAL TABLET 2 po today, then 1 po q days 2-5 20 12/24/14 ZITHROMAX 250 MG ORAL TABLET 522604 AZITHROMYCIN [facility] ZITHROMAX 250 MG ORAL TABLET two tablets now and one daily x 4 d ays ZITHROMAX 250 MG ORAL TABLET 631665 AZITHROMYCIN [facility] PREDNISONE 20 MG ORAL TABLET 2 PO qd x 2d, 1 PO qd x 2d, 1/2 PO qd x 2d PREDNISONE 20 MG ORAL TABLET 099219 PREDNISONE Inactive SIMVASTATIN 40 MG ORAL TABLET one tablet daily SIMVASTATIN 40 MG ORAL TABLET 110467 SIMVASTATIN Inactive BACTRIM DS 800-160 MG ORAL TABLET 1bid BACTRIM DS 800-160 MG ORAL TABLET 610559 SULFAMETHOXAZOLE-TRIMETHOPRIM Inactive ZITHROMAX 250 MG ORAL TABLET 2 po today, then 1 po q days 2-5 20 26/12/21 ZITHROMAX 250 MG ORAL TABLET 500180 AZITHROMYCIN [facility] ZITHROMAX 250 MG ORAL TABLET 2 po today, then 1 po q days 2-5 20 27/02/16 ZITHROMAX 250 MG ORAL TABLET 509309 AZITHROMYCIN [facility] ZITHROMAX 250 MG ORAL TABLET 2 po today, then 1 po q days 2-5 20 26/02/30 ZITHROMAX 250 MG ORAL TABLET 361651 AZITHROMYCIN [facility] ZITHROMAX 250 MG ORAL TABLET 2 po today, then 1 po q days 2-5 20 26/06/21 ZITHROMAX 250 MG ORAL TABLET 609122 AZITHROMYCIN [place] ct[facility] ZITHROMAX 250 MG ORAL TABLET 2 po today, then 1 po q days 2-5 20 31/03/18 ZITHROMAX 250 MG ORAL TABLET 319928 AZITHROMYCIN [place] [facility] ZITHROMAX Z-SANJANA 250 MG ORAL TABLET 2 today, then 1 daily for 4 d ays ZITHROMAX Z-SANJANA 250 MG ORAL TABLET 765603 AZITHROMYCIN Inactive AMOXICILLIN 500 MG ORAL CAPSULE Take 1 capsule by mout h three times a day X 10 days AMOXICILLIN 500 MG ORAL CAPSULE 048816 AMOX ICILLIN Inactive AMOXICILLIN-POT CLAVULANATE 875-125 MG ORAL TABLET 1 pill by mouth twice daily AMOXICILLIN-POT CLAVULANATE 875-125 MG ORAL TABL ET 736243 AMOXICILLIN-POT CLAVULANATE Inactive AUGMENTIN 875-125 MG ORAL TABLET Take one tablet twice a day with food AUGMENTIN 875-125 MG ORAL TABLET AMOXICILLIN-POT CLAVULANATE Inactive POLYTRIM 97836-0.1 UNIT/ML-% OPHTHALMIC SOLUTION 1 gtt to affected eye q3h x 7 days POLYTRIM 36281-5.1 UNIT/ML-% OPH THALMIC SOLUTION 963377 POLYMYXIN B-TRIMETHOPRIM Inactive MACROBID 100 MG ORAL CAPSULE 1 cap by mouth twice daily MACROBID 100 MG ORAL CAPSULE 7200408 NITROFURANTOIN MONOHYD MACRO In active Advance Directives [...] Fluarix, Agriflu(>= 18 yo)) Fluzone (>=3 yrs.) [[id number]] Seasonal influenza vaccine, injectable, containing preservative, for > 3 years old (Afluria, FluLaval, Fluzone, Fluvirin, Fluarix, Agriflu(>= 18 yo)) Fluzone (>3 yrs.) [[id number]] Seasonal influenza vaccine, injectable, containing preservative, for > 3 years old (Afluria, FluLaval, Fluzone, Fluvirin, Fluarix, Agriflu(>= 18 yo)) Fluarix (>3 yrs.) [[id number]] Diagnostic Results Date Name Value Unit Range Description Lab Report: CBC, Comp. Metabolic Panel, Lipid Panel, Magnesium - Chemistry sodium, serum 138 mmol/L [phone]/09/02 carbon dioxide, venous blood 28.0 mmol/L 21.0-32 [...] 0.20 mg/dL 0.00-1.00 cholesterol, serum 228 mg/dL 156-466 3315/09/02 triglyceride, serum, fasting 236 mg/dL 30-200 HDL [...] 0.36-3.74 Encounters Code Encounter Date Provider Facility CPT-59109 [id number] Vst-Est Level III 17:07:11 CDT Jenny Yang [facility] [place] CPT-78569 [id number] Vst-Est Level III 17:51:44 PROTECTION SPECIALIST Diaomnd Pond [facility] CPT-62666 Level 3 Est. Patient 11:09:39 CDT Viviana Rubio [facility] CPT-94293 [id number] Vst-Est Level IV 09:14:31 CDT Conchis Yang [facility] CPT-62638 [id number] Vst-Est Level III 22:05:50 CDT Jenny Yang [facility] CPT-56027 Level 3 Est. Patient 15:00:02 PROTECTION SPECIALIST Will jarquin [facility] CPT-73144 Level 2 Est. Patient 13:46:20 CDT Ashley peacock [facility] [place] CPT-86128 Level 2 Est. Patient 13:45:36 CDT Ashley Meraz [facility] CPT-93821 Level 3 Est. Patient 15:52:07 CDT Ashley Meraz [facility] CPT-39895 Level 3 Est. Patient 08:20:37 CDT Ashley Meraz [facility] CPT-10040 Level 3 Est. Patient 15:06:41 CDT Derrick donaldson MD [facility] CPT-13364 Level 3 Est. Patient 11:13:21 PROTECTION SPECIALIST Derrick donaldson MD [facility] CPT-54819 Level 3 Est. Patient 12:54:25 PROTECTION SPECIALIST Ashley Meraz [facility] CPT-84276 Level 3 Est. Patient 23:34:49 PROTECTION SPECIALIST Ashley Meraz [facility] CPT-90582 Level 3 Est. Patient 16:37:09 PROTECTION SPECIALIST sAhley Meraz [facility] CPT-13481 Level 3 Est. Patient 11:59:30 PROTECTION SPECIALIST Ashley Meraz [facility] CPT-41229 Level 4 Est. Patient 07:40:13 CDT Wayne delatorre [facility] [place] CPT-61256 Level 4 Est. Patient 08:06:18 CDT Wayne delatorre [facility] CPT-18844 Level 3 Est. Patient 11:14:45 CDT Wayne delatorre [facility] CPT-32787 Level 3 Est. Patient 10:14:55 CDT Wayne delatorre [facility] CPT-32047 Level 4 Est. Patient 15:23:47 CDT Wayne delatorre PA [facility] CPT-19440 Level 3 Est. Patient 07:50:51 PROTECTION SPECIALIST Wayne delatorre [facility] CPT-99781 Level 3 Est. Patient 14:47:52 CDT Wayne delatorre PA [facility] CPT-90103 Level 3 Est. Patient 11:28:46 CDT Wayne delatorre PA [facility] CPT-10704 Level 4 Est. Patient 14:48:43 CDT Wayne delatorre [facility] CPT-42208 Level 3 Est. Patient 14:10:18 PROTECTION SPECIALIST Wayne delatorre PA [facility] CPT-12138 Level 3 Est. Patient 16:44:33 PROTECTION SPECIALIST Wayne delatorre [facility] CPT-11793 Level 4 Est. Patient 08:22:34 PROTECTION SPECIALIST Wayne delatorre [facility] CPT-37210 Level 4 Est. Patient 07:10:30 CDT Wayne delatorre [facility] CPT-27677 Level 3 Est. Patient 14:50:20 PROTECTION SPECIALIST Wayne delatorre PA [facility] CPT-87043 Level 3 Est. Patient 09:46:08 PROTECTION SPECIALIST Zuleika cha APRN [facility] CPT-44681 Level 4 Est. Patient 07:56:24 PROTECTION SPECIALIST Wayne delatorre [facility] CPT-60467 Level 3 Est. Patient 12:13:53 CDT Ismael Denton [facility] CPT-52511 Level 4 Est. Patient 12:28:51 PROTECTION SPECIALIST Wayne delatorre [facility] CPT-33037 Level 3 Est. Patient 15:23:42 PROTECTION SPECIALIST Wayne YANG [facility] CPT-02142 Level 3 Est. Patient 06:34:33 PROTECTION SPECIALIST Wayne delatorre TREY [facility] Procedures Code Procedure Name Date Entry Date Standard Desc ription CPT-98636 Allergy Admin 2 16:26:50 CDT CPT-00614 Allergy Admin 2 17:02:53 CDT CPT-63813 Allergy Admin 2 16:32:35 CDT CPT-19115 Allergy Admin 2 16:26:27 CDT CPT-J3420 Vitamin B12 1000mcg (Cyanocobalamin) 16:32:13 CDT CPT-46368 Abx/Therapy Injection 16:32:13 CDT CPT-02736 Allergy Admin 2 16:32:12 CDT CPT-02861 Allergy Admin 2 16:05:03 CDT CPT-89380 Allergy Admin 2 16:35:15 CDT CPT-26290 Allergy Admin 2 16:20:41 CDT CPT-96341 Allergy Admin 2 11:25:21 CDT CPT-85891 Allergy Admin 2 15:46:12 CDT CPT-[id number] (4274F) Influenza immunization administe red or previously received 17:51:44 PROTECTION SPECIALIST CPT-60006 Spec Collection and Handling Fee 10:45:[address] [id number]-[id number] (4274F) Influenza immunization administe red or previously received 10:20:17 CDT CPT-60096 Prv Med Est Pt 40-64yrs 16:26:57 CDT CPT-40712 Venipuncture Draw Fee 11:08:31 CDT CPT-17793 Magnesium - LAB USE ONLY 11:08:31 CDT 10/15 CPT-54990 TSH - LAB USE ONLY 11:08:31 CDT CPT-69657 Lipid - LAB USE ONLY 11:08:30 CDT 2 CPT-11732 CMP - LAB USE ONLY 11:08:30 CDT CPT-25369 CBC - LAB USE ONLY 11:08:30 CDT CPT-83837 Spec Collection and Handling Fee 16:14:51 C DT CPT-53579 UA w micro - LAB USE ONLY 16:14:51 CDT 2018 CPT-59285 Prv Med Est Pt 40-64yrs 08:34:49 CDT 10/01 CPT-28464 Sed Rate - LAB USE ONLY 10:50:49 CDT 10/02 CPT-10504 TSH - LAB USE ONLY 10:50:49 CDT CPT-90345 Lipid - LAB USE ONLY 10:50:49 CDT 0 CPT-15642 Magnesium - LAB USE ONLY 10:50:49 CDT 10/02 CPT-15537 CMP - LAB USE ONLY 10:50:49 CDT CPT-47262 CBC - LAB USE ONLY 10:50:49 CDT CPT-25870 Venipuncture Draw Fee 10:50:49 CDT CPT-21539 IV Hydration < or = 1 hr 22:05:50 CDT 04/16 CPT-J7030 Normal Saline 1000 mL 22:05:50 CDT CPT-97963 Abx/Therapy Injection 16:31:51 PROTECTION SPECIALIST CPT-J2950 Phenergan 25 mg 16:31:51 PROTECTION SPECIALIST CPT-60018 Abx/Therapy Injection 16:39:40 CDT CPT-65897 First Vx - Ix admin via ID I M or jet injects without counseling by physician 16:39:39 CDT CPT-27038 Prv Med Est Pt 40-64yrs 16:33:10 CDT 11/10 CPT-JTINJ Asp/Joint Injection 16:13:36 CDT CPT-81595 Allergy Admin 2 16:54:52 CDT CPT-38790 Allergy Admin 2 16:46:15 CDT CPT-32508 Allergy Admin 2 11:29:09 CDT CPT-02606 Allergy Admin 2 17:05:15 CDT CPT-62762 Allergy Admin 2 12:31:51 CDT CPT-67776 Allergy Admin 2 15:40:56 CDT CPT-99887 CBC - LAB USE ONLY 09:49:24 CDT CPT-67760 CMP - LAB USE ONLY 09:49:24 CDT CPT-52970 Lipid - LAB USE ONLY 09:49:24 CDT 8 CPT-36273 Venipuncture Draw Fee 09:49:24 CDT CPT-80597 Allergy Admin 2 10:46:11 CDT CPT-JTINJ Asp/Joint Injection 09:52:58 CDT CPT-42646 Skin tag rem 1-15 13:46:20 CDT CPT-91084 Knee, right, 3V - XRAY USE ONLY 13:07:09 CD T CPT-78425 Allergy Admin 2 11:56:38 CDT CPT-27034 Allergy Admin 2 12:00:55 CDT CPT-52930 Allergy Admin 2 16:42:13 CDT CPT-84279 Allergy Admin 2 16:27:55 CDT CPT-74732 Allergy Admin 2 13:24:26 CDT CPT-96761 Allergy Admin 2 17:17:57 [facility] CPT-09256 Allergy Admin 2 16:23:22 [facility] CPT-07911 Allergy Admin 2 16:26:55 [facility] CPT-90536 Allergy Admin 2 16:32:33 [facility] CPT-85748 Allergy Admin 2 17:43:40 [facility] CPT-53436 Allergy Admin 2 16:26:07 [facility] CPT-42349 Allergy Admin 2 12:31:50 [facility] CPT-28913 Allergy Admin 2 16:40:38 [facility] CPT-02490 Allergy Admin 2 17:07:36 CDT CPT-G0008 Administration of Influenza Virus Vaccine 17:01:01 CDT CPT-90705 First Vx - Ix admin via ID I M or jet injects without counseling by physician 17:01:01 CDT CPT-14301 Allergy Admin 2 12:06:54 CDT CPT-62797 Allergy Admin 2 17:04:46 CDT CPT-26395 Allergy Admin 2 16:34:48 CDT CPT-47094 Allergy Admin 2 17:04:51 CDT CPT-99684 Allergy Admin 2 16:25:14 CDT CPT-36778 Allergy Admin 2 10:52:02 CDT CPT-14372 Allergy Admin 2 11:45:31 CDT CPT-39078 Allergy Admin 2 12:02:20 CDT CPT-37235 Allergy Admin 2 15:47:29 CDT CPT-14517 Allergy Admin 2 13:25:44 CDT CPT-23989 Allergy Admin 2 10:51:13 CDT CPT-87949 CBC - LAB USE ONLY 10:44:39 CDT CPT-46400 CMP - LAB USE ONLY 10:44:39 CDT CPT-56999 Lipid - LAB USE ONLY 10:44:39 CDT 9 CPT-51340 Venipuncture Draw Fee 10:44:38 CDT CPT-94995 Allergy Admin 2 12:25:22 CDT CPT-35634 Allergy Admin 2 12:41:34 CDT CPT-31136 Allergy Admin 2 15:29:46 CDT CPT-13132 Allergy Admin 2 14:46:53 CDT CPT-53427 Allergy Admin 2 14:16:16 CDT CPT-80137 Allergy Admin 2 16:55:26 CDT CPT-61317 Allergy Admin 2 10:12:02 CDT CPT-42583 Allergy Admin 2 14:53:56 CDT CPT-81824 Allergy Admin 2 17:01:54 CDT CPT-37483 Allergy Admin 2 09:36:02 CDT CPT-61900 Allergy Admin 2 16:53:26 [facility] CPT-98947 Allergy Admin 2 16:59:41 PROTECTION SPECIALIST CPT-37170 Allergy Admin 2 16:36:44 PROTECTION SPECIALIST CPT-87868 Allergy Admin 2 16:17:16 [facility] CPT-81785 Allergy Admin 2 17:08:10 [facility] CPT-16278 Allergy Admin 2 12:16:08 [facility] CPT-23011 Allergy Admin 2 16:47:30 [facility] CPT-15630 Allergy Admin 2 16:59:44 [facility] CPT-80296 Allergy Admin 2 12:48:53 [facility] CPT-74176 Allergy Admin 2 10:19:48 [facility] CPT-40114 Allergy Admin 2 12:40:17 [facility] CPT-85353 Abx/Therapy Injection 17:21:59 [facility] CPT-74457 First Vx - Ix admin via ID I M or jet injects without counseling by physician 17:21:57 PROTECTION SPECIALIST CPT-96015 Allergy Admin 2 17:20:12 PROTECTION SPECIALIST CPT-18158 Allergy Admin 2 11:12:50 PROTECTION SPECIALIST CPT-12489 Allergy Admin 2 17:02:39 CDT CPT-14530 BMP - LAB USE ONLY 10:33:02 CDT CPT-73613 CBC - LAB USE ONLY 10:33:02 CDT CPT-37375 Venipuncture Draw Fee 10:33:02 CDT CPT-23379 Abx/Therapy Injection 12:29:08 CDT CPT-01317 Allergy Admin 2 10:39:48 CDT CPT-57438 Allergy Admin 2 10:55:47 CDT CPT-PV Prev. Care Visit 10:10:00 CDT CPT-75148 Allergy Admin 2 11:31:20 CDT CPT-50118 Allergy Admin 2 16:53:45 CDT CPT-25527 Allergy Admin 2 16:36:42 CDT CPT-27299 Allergy Admin 2 16:30:19 CDT CPT-85382 Allergy Admin 2 15:39:35 CDT CPT-48811 Allergy Admin 2 17:51:32 CDT CPT-38025 Allergy Admin 2 11:50:50 CDT CPT-PV Prev. Care Visit 14:09:05 CDT CPT-56818 Allergy Admin 2 13:37:39 CDT CPT-50495 Abx/Therapy Injection 12:17:43 CDT CPT-97731 Venipuncture Draw Fee 10:39:55 CDT CPT-41774 Allergy Admin 2 12:04:53 CDT CPT-12672 Allergy Admin 2 10:04:39 CDT CPT-77242 Allergy Admin 2 12:15:35 CDT CPT-44288 Allergy Admin 2 17:04:36 CDT CPT-41753 Allergy Admin 2 16:25:49 CDT CPT-27290 Allergy Admin 2 17:30:06 CDT CPT-07624 Allergy Admin 2 10:11:48 CDT CPT-39905 Allergy Admin 2 17:06:13 CDT CPT-99524 Abx/Therapy Injection 12:23:07 CDT CPT-J0702 Celestone 12 mg (Betamethasone) 12:23:07 CD T CPT-87429 Venipuncture Draw Fee 10:26:42 CDT CPT-89776 Allergy Admin 2 12:10:01 CDT CPT-35423 Allergy Admin 2 15:13:57 PROTECTION SPECIALIST CPT-28323 Allergy Admin 2 16:55:22 PROTECTION SPECIALIST CPT-40410 Allergy Admin 2 10:13:46 PROTECTION SPECIALIST CPT-17381 Venipuncture Draw Fee 10:06:08 PROTECTION SPECIALIST CPT-93203 Allergy Admin 2 16:15:41 PROTECTION SPECIALIST CPT-24219 Allergy Admin 2 16:40:21 PROTECTION SPECIALIST CPT-98312 Allergy Admin 2 16:31:48 PROTECTION SPECIALIST CPT-02197 Allergy Admin 2 16:38:26 PROTECTION SPECIALIST CPT-37690 Allergy Admin 2 16:40:08 PROTECTION SPECIALIST CPT-90199 Allergy Admin 2 08:34:27 PROTECTION SPECIALIST CPT-80166 Allergy Admin 2 14:27:45 PROTECTION SPECIALIST CPT-44187 Destruction bgn lsn up to 14 09:41:27 PROTECTION SPECIALIST 2 CPT-28978 Allergy Admin 2 17:45:17 PROTECTION SPECIALIST CPT-49609 Allergy Admin 2 14:59:03 PROTECTION SPECIALIST CPT-02720 Allergy Admin 2 12:49:42 CDT CPT-23671 Administration single or combination vac cine inc oral 15:01:57 CDT CPT-04900 Fluzone Quadrivalent Intramuscular Suspe nsion 0.5 ML 15:01:57 CDT CPT-40204 Allergy Admin 2 15:07:08 CDT CPT-60505 Allergy Admin 2 15:39:01 CDT CPT-29839 Allergy Admin 2 17:40:11 CDT CPT-47734 Allergy Admin 2 16:07:08 CDT CPT-18754 Allergy Admin 2 16:08:07 CDT CPT-90952 Venipuncture Draw Fee 09:34:29 CDT CPT-97228 Allergy Admin 2 16:27:43 CDT CPT-99200 Allergy Admin 2 15:53:10 CDT CPT-76818 Allergy Admin 2 15:42:29 CDT CPT-60684 Allergy Admin 2 11:26:14 CDT CPT-09040 Allergy Admin 2 10:36:24 CDT CPT-51013 Allergy Admin 2 16:53:37 CDT CPT-68733 Allergy Admin 2 11:21:44 CDT CPT-49137 Allergy Admin 2 10:50:40 CDT CPT-28207 Allergy Admin 2 11:19:11 CDT CPT-13292 Venipuncture Draw Fee 11:12:25 CDT CPT-70036 Allergy Admin 2 11:14:51 CDT CPT-35614 Allergy Admin 2 16:53:11 CDT CPT-06888 Allergy Admin 2 11:45:56 CDT CPT-54496 Allergy Admin 2 12:51:39 CDT CPT-28217 Allergy Admin 2 12:08:56 CDT CPT-67286 Allergy Admin 2 15:29:45 CDT CPT-50495 Allergy Admin 2 16:34:01 CDT CPT-01091 Allergy Admin 2 16:36:46 CDT CPT-89187 Allergy Admin 2 15:19:16 CDT CPT-01294 Allergy Admin 2 16:13:25 CDT CPT-23383 Allergy Admin 2 17:06:17 CDT CPT-70744 Allergy Admin 2 10:42:10 [employer]OTECTION SPECIALIST CPT-30055 Allergy Admin 2 17:33:16 PROTECTION SPECIALIST CPT-10885 Allergy Admin 2 10:53:30 PROTECTION SPECIALIST CPT-90976 Allergy Admin 2 14:18:24 PROTECTION SPECIALIST CPT-01539 Allergy Admin 2 10:18:29 PROTECTION SPECIALIST CPT-17038 Allergy Admin 2 12:57:40 PROTECTION SPECIALIST CPT-78373 Allergy Admin 2 16:53:33 PROTECTION SPECIALIST CPT-17567 Allergy Admin 2 12:43:00 PROTECTION SPECIALIST CPT-60568 Allergy Admin 2 13:14:09 [employer]OTECTION SPECIALIST CPT-01424 Pneumovax 23 Injection Injectable 25 MCG /0.5ML 09:51:29 [employer]OTECTION SPECIALIST CPT-G0009 Administration of Pneumococcal Vaccine 09:51:29 PROTECTION SPECIALIST CPT-12296 Influenza split virus > age 3 09:51:29 PROTECTION SPECIALIST CPT-G0008 Administration of Influenza Virus Vaccine 02/23 09:51:29 [employer]OTECTION SPECIALIST CPT-87851 Venipuncture Draw Fee 10:31:06 CDT CPT-J0702 Celestone 12 mg (Betamethasone) 11:34:17 CD T CPT-94188 Abx/Therapy Injection 11:34:17 CDT CPT-90019 Chest 2V Frontal and Lat 11:31:47 CDT 07/04 CPT-95190 Venipuncture Draw Fee 11:31:47 CDT CPT-42323 Allergy Admin 2 14:31:05 CDT CPT-90832 EKG Trac and Interp 08:42:32 CDT CPT-82350 Chest 2V Frontal and Lat 08:42:32 CDT 05/28 CPT-42619 Venipuncture Draw Fee 08:39:02 CDT CPT-99250 Allergy Admin 2 16:59:09 CDT CPT-52868 Allergy Admin 2 17:06:11 CDT CPT-96899 Allergy Admin 2 16:04:36 CDT CPT-52876 Venipuncture Draw Fee 16:32:44 [employer]OTECTION SPECIALIST CPT-46394 Venipuncture Draw Fee 10:54:37 PROTECTION SPECIALIST CPT-06449 Allergy Admin 2 14:53:55 PROTECTION SPECIALIST CPT-67067 Allergy Admin 2 10:23:58 PROTECTION SPECIALIST CPT-82155 First Vx Component - Ix admi n via ID IM or jet inj without physician counseling 15:34:26 PROTECTION SPECIALIST CPT-68963 Fluzone (>=3 yrs.) 15:34:26 PROTECTION SPECIALIST CPT-45036 Allergy Admin 2 15:56:02 PROTECTION SPECIALIST CPT-71218 Allergy Admin 2 11:08:58 PROTECTION SPECIALIST CPT-54464 Allergy Admin 2 10:51:36 PROTECTION SPECIALIST CPT-48621 Allergy Admin 2 15:38:19 PROTECTION SPECIALIST CPT-78949 Allergy Admin 2 15:12:46 CDT CPT-64420 Allergy Admin 2 10:28:50 CDT CPT-62092 Allergy Admin 2 16:35:33 CDT CPT-53351 Allergy Admin 2 10:14:18 CDT CPT-78449 Abx/Therapy Injection 09:06:45 CDT CPT-J0702 Celestone 6 mg (Betamethasone) 09:06:45 CDT CPT-61148 Allergy Admin 2 15:51:15 CDT CPT-74692 Allergy Admin 2 10:40:16 CDT CPT-22226 Allergy Admin 2 16:35:55 CDT CPT-63406 Allergy Admin 2 13:12:52 CDT CPT-46220 Allergy Admin 2 16:06:50 CDT CPT-13893 Allergy Admin 2 11:04:24 CDT CPT-73080 Allergy Admin 2 10:44:50 CDT CPT-94745 Allergy Admin 2 15:13:40 CDT CPT-66959 Allergy Admin 2 15:00:03 CDT CPT-65319 Allergy Admin 2 10:37:38 CDT CPT-45251 Venipuncture Draw Fee 09:16:43 PROTECTION SPECIALIST CPT-53431 Allergy Admin 2 11:15:59 PROTECTION SPECIALIST CPT-17466 Postop F/U Visit 10:10:52 PROTECTION SPECIALIST CPT-80820 Allergy Admin 2 13:05:05 PROTECTION SPECIALIST CPT-18961 Postop F/U Visit 19:45:16 PROTECTION SPECIALIST CPT-52110 Allergy Admin 2 11:52:35 PROTECTION SPECIALIST CPT-75616 Allergy Admin 2 10:49:22 PROTECTION SPECIALIST CPT-OV Office Visit 13:55:55 PROTECTION SPECIALIST CPT-68043 Allergy Admin 2 12:54:28 PROTECTION SPECIALIST CPT-OV Office Visit 14:04:48 PROTECTION SPECIALIST CPT-76784 Venipuncture Draw Fee 10:29:14 PROTECTION SPECIALIST CPT-77312 Allergy Admin 2 11:24:43 PROTECTION SPECIALIST CPT-54295 Knee 3V 11:00:12 PROTECTION SPECIALIST CPT-89261 C-Spine Min 4V 11:00:12 PROTECTION SPECIALIST CPT-64013 Allergy Admin 2 13:38:40 PROTECTION SPECIALIST CPT-71347 Venipuncture Draw Fee 11:33:37 CDT CPT-24774 Allergy Admin 2 15:34:37 CDT CPT-25774 Allergy Admin 2 14:11:42 CDT CPT-89374 Administration single or combination vac cine inc oral 12:51:42 CDT CPT-78424 Influenza split virus > age 3 12:51:42 CDT CPT-58034 Allergy Admin 2 11:58:43 CDT CPT-26442 Allergy Admin 2 11:29:32 CDT CPT-60113 Allergy Admin 2 10:55:19 CDT CPT-74448 Allergy Admin 2 12:38:54 CDT CPT-71523 Allergy Admin 2 13:01:47 CDT CPT-17211 Abx/Therapy Injection 12:41:18 CDT CPT-J0702 Celestone 12 mg (Betamethasone) 12:41:18 CD T CPT-24004 Abx/Therapy Injection 16:33:09 CDT CPT-J0702 Celestone 12 mg (Betamethasone) 16:33:09 CD T CPT-27889 Allergy Admin 2 15:49:09 CDT CPT-26604 Allergy Admin 2 12:08:56 CDT CPT-20247 Allergy Admin 2 12:19:10 CDT CPT-53756 Allergy Admin 2 12:46:56 CDT CPT-34163 Allergy Admin 2 15:05:13 CDT CPT-55961 Allergy Admin 2 15:36:20 CDT CPT-88364 Allergy Admin 2 09:58:47 [employer]OTECTION SPECIALIST CPT-05380 Allergy Admin 2 12:18:06 PROTECTION SPECIALIST CPT-96102 Allergy Admin 2 10:01:48 PROTECTION SPECIALIST CPT-82597 Allergy Admin 2 12:17:53 PROTECTION SPECIALIST CPT-19935 Allergy Admin 2 10:06:44 PROTECTION SPECIALIST CPT-56616 Allergy Admin 2 10:13:04 PROTECTION SPECIALIST CPT-82519 Venipuncture Draw Fee 10:09:07 PROTECTION SPECIALIST CPT-88946 Bone Density 12:24:51 PROTECTION SPECIALIST CPT-28388 Allergy Admin 2 11:29:41 PROTECTION SPECIALIST CPT-77851 Allergy Admin 2 16:07:15 PROTECTION SPECIALIST CPT-80277 Breathing Treatment 06:34:33 PROTECTION SPECIALIST CPT-J0702 Celestone 12 mg (Betamethasone) 06:34:33 CS T CPT-28436 Abx/Therapy Injection 06:34:33 PROTECTION SPECIALIST CPT-42847 Breathing Tx 11:07:33 PROTECTION SPECIALIST CPT-01785 Allergy Admin 2 10:02:33 CDT CPT-40650 Allergy Admin 2 10:02:33 CDT CPT-96016 Allergy Admin 2 15:26:19 CDT CPT-09515 Administration single or combination vac cine inc oral 15:41:12 CDT CPT-27219 Influenza split virus > age 3 15:41:12 CDT
--- OUTSIDE RECORDS SUMMARY | 2020-09-15 14:41 | XMS REPORT | Clinical Summary ---
Author Author Admin, Supriya Zuniga Organization [facility] [place] Address Unknown Phone Unavailable Allergies, Adverse Reactions, [...] and myositis, unspecified Rheumatoid arthritis 714.0 Resolved Wanye Harms P A Rheumatoid arthritis Diarrhea 787.91 [...] Yang APRN Pruritus vulvae Active Ashley Yokum [employer] Screening mammogram V76.12 Resolved Ashley Yokum A PRN Other screening mammogram Sinusitis, acute maxillary 461.0 Inactive 7 Ashley Yokum [employer] Acute maxillary sinusitis Diarrhea, acute 787.91 Resolved Ashley Yokum [employer] Diarrhea Vaginal candidiasis 112.1 Resolved Aslhey Yokum A PRN Candidiasis of vulva and vagina Accidental fall E888.9 Resolved Ashley Yokum [employer] Unspecified fall Contusion of left hand, initial encounter 923.20 Resol burak Ashley Yokum [employer] Contusion of hand(s) Contusion of right upper arm, subsequent encounter V58.89 201 09/14/21 Resolved Ashley Yokum [employer] Encounter for other specified a ftercare Ganglion cyst of left wrist 727.41 Active Derrick Younger MD Ganglion of joint Body Mass Index 31.0-31.9 Adult Resolved 2017 Ashley Yokum [employer] Body Mass Index 31.0-31.9, adult Plantar fasciitis 728.71 Active Ashley Yokum [employer] Plantar fascial fibromatosis Bronchitis, acute 466.0 Inactive Ashley Yokum APR N Acute bronchitis Body Mass Index 30.0-30.9 Adult Resolved 2017 Ashley Yokum [employer] Body Mass Index 30.0-30.9, adult Allergic conjunctivitis, bilateral 372.14 Resolved 2 Ashley Yokum [employer] Other chronic allergic conjunctivitis Skin tags; irritated/inflammed 701.9 Resolved 11/10 Ashley Yokum [employer] Unspecified hypertrophic and atrophic co nditions of skin Body Mass Index 31.0-31.9 Adult Refinement 2017 Ashley Yokum [employer] Body Mass Index 31.0-31.9, adult BMI 30-30.9 Refinement Ashley Yokum [employer] Body Mass Index 31.0-31.9, adult BMI 31-31.9 Refinement Ashley Yokum [employer] Body Mass Index 31.0-31.9, adult BMI 32-32.9 Refinement Lois Faith RN Body Mass Index 31.0-31.9, adult BMI 31-31.9 Active Viviana Rubio APRN-Julieta Body Mass Index 31.0-31.9, adult Major depression, recurrent, moderate 296.32 Active Ashley Yokum [employer] Major depressive disorder, recurrent epi sode, moderate degree Obesity Class I (BMI 30-34.9) Active Ashley Y okum [employer] Obesity, unspecified Nausea and vomiting 787.01 Resolved Ashley Yokum A PRN Nausea with vomiting Gastroenteritis acute 558.9 Resolved Ashley Yokum [employer] Other and unspecified noninfectious gastroenteritis and colitis GERD 530.81 Active Ashley Yokum [employer] E sophageal reflux Joint pain 719.40 Resolved Ashley Yokum [employer] Pain in joint, site unspecified Preventive health care, adult V70.0 Inactive / Ashley Yokum [employer] Routine general medical examination at a health care facility Blood in urine 599.70 Resolved Ashley Yokum [employer] Hematuria, unspecified Other abnormal findings in urine Resolved Ashley Yokum [employer] Urinary tract infection 599.0 Inactive Ashley Yok um [employer] Urinary tract infection, site not specified Chafing of skin 709.8 Resolved Ashley Yokum [employer] Other specified disorders of skin Preventive care V70.0 Active Supriya Betzaida A Routine general medical examination at a health care facility Gynecological examination, routine V72.3 Inactive 2 Ashley Yokum [employer] Special investigations and e xaminations - Gynecological examination Near syncope 780.2 Resolved Ashley Yokum [employer] Syncope and collapse Lightheadedness 780.4 Resolved Ashley Yokum [employer] Dizziness and giddiness Headache 784.0 Resolved Ashley Yokum [employer] Headache Sore throat 462 Resolved Ashley Yokum [employer] Acute pharyngitis Sinusitis - acute 461.9 Resolved Ashley Yokum APR N Acute sinusitis, unspecified Tired all the time 780.79 Resolved Ashley Yokum AP RN Other malaise and fatigue Fatigue 780.79 Inactive Ashley Yokum [employer] Other malaise and fatigue ABNORMAL WEIGHT GAIN ICD-783.1 Inactive Wayne YANG ALLERGIC RHINITIS ICD-477.9 Inactive Lois Stephens gayatri [employer] SINUSITIS ICD-473.9 Inactive Lois Deric [employer] 2012 WHEEZING ICD-786.07 Inactive Lois Deric [employer] 2012 UPPER RESPIRATORY INFECTION, ACUTE ICD-465.9 I nactive Lois Deric [employer] NEED FOR DESENSITIZATION TO ALLERGENS ICD-V07.1 8 Inactive Ashley Yokum [employer] OBESITY ICD-278.00 Inactive Wayne YANG CONTACT DERMATITIS DUE TO POISON ARANZA ICD-692.6 Inactive Lois Leos [employer] NEED PROPHYLACTIC VACCINATION&INOCULATION FLU ICD-V04.81 Inactive Wayne Harms PA GERD ICD-530.81 Inactive Lois Leos [employer] 03/22 LONG-TERM (CURRENT) USE OF OTHER MEDICATIONS ICD-V58.69 6 Inactive Wayne Harms PA NECK PAIN ICD-723.1 Inactive Wayne Harms PA 06/15 DEGENERATIVE DISC DISEASE, CERVICAL SPINE ICD-722.4 Inactive Wayne Harms PA SKIN TAG ICD-701.9 Inactive Wayne Harms PA G E R D ICD-530.81 Inactive Lois Leos [employer] CANDIDIASIS OF SKIN AND NAILS ICD-112.3 Inacti ve Wayne Harms PA AFTERCARE FOLLOW SURGERY MUSCULOSKEL SYSTEM NEC ICD-V58.78 Inactive Wayne Harms PA PHARYNGITIS ICD-462 Inactive Wayne Harms PA 05/03 OTHER SCREENING MAMMOGRAM ICD-V76.12 Inactive Wayne Harms PA DYSPAREUNIA, MILD ICD-625.0 Inactive Wayne Harm s PA CONTACT DERMATITIS DUE TO POISON ARANZA ICD-692.6 Inactive Wayne Harms PA Sinusitis, chronic ICD-473.9 Inactive Ashley vallejo [employer] Myalgia ICD-729.1 Inactive Wayne Harms PA Rheumatoid [...] PA Runny nose ICD-472.0 Inactive Ashley Yang [employer] Influenza like illness ICD-487.1 Inactive Wayne Moon PA Acute maxillary sinusitis ICD-461.0 Inactive Ashley Yokum [employer] Preventive health care ICD-V70.0 Inactive Jenny mo Yokum [employer] Well women exam ICD-V72.3 Inactive Ashley Yokum [employer] Screening mammogram ICD-V76.12 Inactive Ashley Yokum [employer] Sinusitis, acute maxillary ICD-461.0 Inactive Ashley Yokum [employer] Diarrhea, acute ICD-787.91 Inactive Ashley Merazu m [employer] Vaginal candidiasis ICD-112.1 Inactive Ashley Y abdonum [employer] Accidental fall ICD-E888.9 Inactive Ashley Yoku m [employer] Contusion of left hand, initial encounter ICD-923.20 Inactive Ashley Yokum [employer] Contusion of right upper arm, subsequent encounter ICD-V58.89 Inactive Ashley Yokum [employer] Body Mass Index 31.0-31.9 Adult Inac tive Ashley Yokum [employer] Bronchitis, acute ICD-466.0 Inactive Ashley Yok um [employer] Body Mass Index 30.0-30.9 Adult Inac tive Ashley Yokum [employer] Allergic conjunctivitis, bilateral ICD-372.14 I nactive Ashley Yokum [employer] Skin tags; irritated/inflammed ICD-701.9 Inact rancho Ashley Yokum [employer] Nausea and vomiting ICD-787.01 Inactive Ashley Yokum [employer] Gastroenteritis acute ICD-558.9 Inactive Conchis hi Yokum [employer] Joint pain ICD-719.40 Inactive Ashley Yokum APR N Preventive health care, adult ICD-V70.0 Inacti ve Ashley Yokum [employer] Blood in urine ICD-599.70 Inactive Ashley Yokum [employer] Other abnormal findings in urine [place] ctive Ashley Yokum [employer] Urinary tract infection ICD-599.0 Inactive K athi Yokum [employer] Chafing of skin ICD-709.8 Inactive Ashley Yokum [employer] Gynecological examination, routine ICD-V72.3 I nactive Ashley Yokum [employer] Near syncope ICD-780.2 Inactive Ashley Yokum AP RN Lightheadedness ICD-780.4 Inactive Ashley Yokum [employer] Headache ICD-784.0 Inactive Ashley Yokum [employer] 2020 Sore throat ICD-462 Inactive Ashley Yokum [employer] 02/17/17 Sinusitis - acute ICD-461.9 Inactive Ashley Yok um [employer] Tired all the time ICD-780.79 Inactive Ashley gutierrez [employer] Fatigue ICD-780.79 Inactive Ashley Yang [employer] 2020 Medication List Medication Instructions Start Date Stop Date Generic Name NDC Status Provider Patient Instruction PHENTERMINE HCL 37.5 MG ORAL TABLET 1/2 qAM, can incre ase to 1 qAM - take 30 min before or 2 hrs after breakfast PHENTERMINE HCL 62152 474824 Active Ashley Yang [employer] Active MUCINEX D 60-600 MG ORAL TABLET EXTENDED RELEASE 12 HO UR 1 po BID PRN Congestion PSEUDOEPHEDRINE-GUAIFENESIN 99070529207 Active Ashley Yang [employer] Active ZYRTEC ALLERGY 10 MG ORAL CAPSULE 1qd CETIR IZINE HCL 42217671403 No Longer Active Ashley Yang [employer] Active HAIR, SKIN, NAILS VITAMINS take 1 tab by mouth 2x a day HAIR, SKIN, NAILS VITAMINS Active Ashley aYng [employer] Active CENTRUM SILVER FOR WOMEN OVER 50 1 tab by mouth by day. CENTRUM SILVER FOR WOMEN OVER 50 Active Ashley Yang APRN Active VITAMIN D3 1000 UNIT ORAL CAPSULE 1 po qd CH OLECALCIFEROL 33543363361 Active Ashley Yang [employer] Active PREDNISONE 20 MG ORAL TABLET Take 2 tablets by mouth d aily for 2 days then 1 tablet daily for 2 days. PREDNISONE 35053481734 No Longer Active Ashley Yang [employer] Active MELOXICAM 15 MG ORAL TABLET TAKE 1 TABLET BY MOUTH IN THE MORNING 2 MELOXICAM 92335920689 Active LARRY Murillo Active CLARITIN 10 MG ORAL TABLET 1 tablet by mouth daily as needed for allergies LORATADINE 16548727553 Active Supriya JUAREZ Active SIMVASTATIN 40 MG ORAL TABLET TAKE 1 TABLET BY MOUTH ONCE DA JAVON AT BEDTIME SIMVASTATIN 56173636298 Active LARRY Murillo Active [id number] ORAL TABLET MULT IPLE MINERALS 05619752729 Active Lois Faith, RN Active SERTRALINE HCL 100 MG ORAL TABLET Take 1 tablet by mouth once da javon SERTRALINE HCL 55604063866 Active Marcytomasa Medina, RMA A ctive REGLAN 10 MG ORAL TABLET 1 po qid for bowels 3 METOCLOPRAMIDE HCL 77882759779 No Longer Active Ashley Yokum [employer] A ctive ADK 2843-1041-727 UNIT-MCG ORAL CAPSULE 1 daily VITAMINS A D K 62718665414 Active Ashley Yokum [employer] Active B-12 2500 MCG ORAL TABLET 1 daily CYANOCOBAL HUNT 84587653817 No Longer Active Ashley Yokum [employer] Active ESTRADIOL 2 MG TABS Take 1 tablet by mouth once daily ESTRADIOL 96133669610 Active Shanelle Rivera RN Active MACROBID 100 MG ORAL CAPSULE 1 cap by mouth twice daily NITROFURANTOIN MONOHYD MACRO 62325057137 No Longer Active Ashley Yokum [employer] Active FISH OIL + D3 3255-0487 MG-UNIT ORAL CAPSULE 1 dailly 4 FISH OIL-CHOLECALCIFEROL 93853257637 Active Ashley Yokum [employer] Acti ve PROAIR HFA 108 (90 BASE) MCG/ACT INHALATION AEROSOL SO LUTION 2 puffs four times a day as needed ALBUTEROL SULFATE 33363060887 No Long er Active Ashley Yokum [employer] Active ZITHROMAX Z-SANJANA 250 MG ORAL TABLET Take 2 tablets toda y and 1 each day till gone AZITHROMYCIN 28422789136 No Longer Active Ashley Yokum [employer] Active POLYTRIM 49862-0.1 UNIT/ML-% OPHTHALMIC SOLUTION 1 gtt to affected eye q3h x 7 days POLYMYXIN B-TRIMETHOPRIM 33248421445 No Longer Active Ashley Yokum [employer] Active IBUPROFEN 200 MG ORAL TABLET Take 3 tablets every 6hrs 201 09/17/15 IBUPROFEN 15867596834 No Longer Active Ashley Yokum [employer] Active DIFLUCAN 150 MG ORAL TABLET Take one tablet today and repeat in 72 hours FLUCONAZOLE 24409833535 No Longer Active Derrick cardenas MD Active DIFLUCAN 150 MG ORAL TABLET 1 by mouth for yeast 03/03 FLUCONAZOLE 67651067875 No Longer Active Ashley Yang [employer] Active AUGMENTIN 875-125 MG ORAL TABLET Take one tablet twice a day with food AMOXICILLIN-POT CLAVULANATE 33642279349 No Longer Act rancho Ashley Yang [employer] Active CALCIUM 600 + D 600-200 MG-UNIT ORAL TABLET Take one daily CALCIUM CARB-CHOLECALCIFEROL 23910253796 No Longer Active Ashley Yang APRN Active FLONASE 50 MCG/ACT NASAL SUSPENSION 1 spray each nostr il twice daily for allergies and runny nose FLUTICASONE PROPIONATE 84071717324 No Longer Active Ashley Yang APRN Active CLARITIN-D 12 HOUR 5-120 MG ORAL TABLET EXTENDED RELEA SE 12 HOUR Take one tablet BID as needed for allergies LORATADINE-PSEUDOEP HEDRINE 32895568881 No Longer Active Beth Turner MEDIA MANAGER Active AMOXICILLIN-POT CLAVULANATE 875-125 MG ORAL TABLET 1 pill by mouth twice daily AMOXICILLIN-POT CLAVULANATE 28671191196 No Longer Act rancho Ashley Yang [employer] Active AMOXICILLIN 500 MG ORAL CAPSULE Take 1 capsule by mout h three times a day X 10 days AMOXICILLIN 23464769895 No Longer Active Awyne H arms PA Active PROBIOTIC DAILY ORAL CAPSULE Take one daily PROBIO TIC PRODUCT 48269227069 Active Wayne Harms PA Active TYLENOL 325 MG ORAL TABLET Take 2 every 6hrs prn A CETAMINOPHEN 60852970258 Active Wayne Harms PA Active ACETAMINOPHEN 500 MG ORAL TABLET prn RICH TAMINOPHEN 80501915758 No Longer Active Wayne Harms PA Active CLARITIN-D 12 HOUR 5-120 MG ORAL TABLET EXTENDED RELEA SE 12 HOUR Take one tablet bid LORATADINE-PSEUDOEPHEDRINE 43131884836 No Longe r Active Wayne Harms PA Active MOBIC 15 MG ORAL TABLET 1 tablet by mouth daily in am with PPI 2 MELOXICAM 29788858701 No Longer Active Wayne Harms PA Acti ve HYDROCORTISONE 2.5 % EXTERNAL CREAM Apply three times a day to affected area HYDROCORTISONE 08418909091 No Longer Active Wayne Harms PA Active VITAMIN D3 1000 UNIT ORAL TABLET Take two daily CHOLECALCIFEROL 85371748016 No Longer Active Wayne Harms PA Active PROBIOTIC ORAL CAPSULE Take one daily PROBIOTIC PRODUCT 49381230425 No Longer Active Wayne Harms PA Active GREEN TEA SLIM ORAL TABLET Take one daily MISC NATURAL PRODUCTS 64993779170 No Longer Active Wayne Harms PA Active BENZONATATE 200 MG ORAL CAPSULE Take one capsule three times a d ay BENZONATATE 46393146693 No Longer Active Wayne Harms PA Act rancho ZITHROMAX Z-SANJANA 250 MG ORAL TABLET 2 today, then 1 daily for 4 d ays AZITHROMYCIN 86099929966 No Longer Active Wayne Harms PA Ac tive ZITHROMAX 250 MG ORAL TABLET 2 po today, then 1 po q days 2-5 20 31/03/18 AZITHROMYCIN 32572741892 No Longer Active Beth Turner MEDIA MANAGER Active OMEPRAZOLE 20 MG ORAL CAPSULE DELAYED RELEASE 1 tablet by mo [facility] daily OMEPRAZOLE 97881042168 Active Supriya Huston RMA Active ZITHROMAX Z-SANJANA 250 MG ORAL TABLET 2x1day,3k2kicu 2014 AZITHROMYCIN 10511677190 No Longer Active Wayne Harms PA Active FISH OIL 1200 MG ORAL CAPSULE One daily prn OME GA-3 FATTY ACIDS 16966898505 No Longer Active Wayne Harms PA Active CEPHALEXIN 250 MG ORAL CAPSULE Take one tablet qid 201 05/25/29 CEPHALEXIN 05939841697 No Longer Active Wayne Harms PA Active VITAMIN D3 1000 UNIT ORAL TABLET 1qd CHOLEC ALCIFEROL 22027013758 No Longer Active Wayne Harms PA Active B-12 2000 MCG ORAL TABLET 1qd CYANOCOBALAMI N 95134437482 No Longer Active Wayne Harms PA Active ACIPHEX 20 MG ORAL TABLET DELAYED RELEASE 1qd 10/28 RABEPRAZOLE SODIUM 39600511329 No Longer Active Wayne Harms PA Active HYDROCORTISONE 2.5 % EXTERNAL CREAM apply 3-4 times a day to affected area HYDROCORTISONE 37244103522 No Longer Active Wayne Harms PA Active MUCINEX 600 MG ORAL TABLET EXTENDED RELEASE 12 HOUR 2qd GUAIFENESIN 13037381243 No Longer Active Wayne Harms PA Active TUSSIONEX PENNKINETIC ER 10-8 MG/5ML ORAL SUSPENSION E XTENDED RELEASE 5ml po q12hr PRN Cough HYDROCOD POLST-CHLORPHEN POLST 5 6998775647 No Longer Active Wayne Harms PA Active ZITHROMAX 250 MG ORAL TABLET 2 po today, then 1 po q days 2-5 20 26/06/21 AZITHROMYCIN 69025943017 No Longer Active Wayne Harms PA Ac tive CLARITIN 10 MG ORAL TABLET one tablet daily THEO ATADINE 96382639228 No Longer Active Wayne Harms PA Active FLAGYL 500 MG ORAL TABLET 1 tablet by mouth three times daily 20 28/05/03 METRONIDAZOLE 76910513032 No Longer Active Wayne Harms PA A ctive CHERATUSSIN AC 100-10 MG/5ML ORAL SYRUP one teaspoon qid. 9 GUAIFENESIN-CODEINE 81432453937 No Longer Active Wayne Harms PA Act rancho VITAMIN D 1000 UNIT ORAL TABLET 1qd CHOLECA LCIFEROL 79210761002 No Longer Active Wayne Harms PA Active CYMBALTA 60 MG ORAL CAPSULE DELAYED RELEASE PARTICLES 1 cap by mouth daily DULOXETINE HCL 89628884363 No Longer Active Wayne Harms PA Active AMOXICILLIN 500 MG ORAL CAPSULE 2 caps tid for 10days AMOXICILLIN 26877978849 No Longer Active Wayne Harms PA Active CALCIUM + D 600-200 MG-UNIT TABS Take one by mouth daily CALCIUM CARBONATE-VITAMIN D 05944813960 No Longer Active Wayne Harms PA Active CENTRUM SILVER ADULT 50+ ORAL TABLET 1qd 2013 MULTIPLE VITAMINS-MINERALS 24342617920 No Longer Active Wayne Harms PA Active VENLAFAXINE HCL 75 MG ORAL TABLET 1tid VE NLAFAXINE HCL 91604288668 No Longer Active Wayne Harms PA Active CLARITIN 10 MG ORAL TABLET 1 tablet by mouth daily as needed for allergies LORATADINE 32704150879 No Longer Active Wayne Harms PA Acti ve HYDROCORTISONE 2.5 % EXTERNAL CREAM Apply four times a day to af fected area HYDROCORTISONE 77495567599 No Longer Active Wayne Harms PA Active ZITHROMAX 250 MG ORAL TABLET 2 po today, then 1 po q days 2-5 20 26/02/30 AZITHROMYCIN 82311618291 No Longer Active Wayne Harms PA Ac tive ZITHROMAX 250 MG ORAL TABLET 2 po today, then 1 po q days 2-5 20 27/02/16 AZITHROMYCIN 63449651920 No Longer Active Wayne Harms PA Ac tive CYMBALTA 30 MG ORAL CAPSULE DELAYED RELEASE PARTICLES 3 caps daily DULOXETINE HCL 97203047001 No Longer Active Wayne Harms PA Active CYMBALTA 60 MG ORAL CAPSULE DELAYED RELEASE PARTICLES one tablet daily, takes 30mg. with 60mg. to make 90 mg. DULOXETINE HCL 06120953030 No Longer Active Wayne Harms PA Active CYMBALTA 30 MG ORAL CAPSULE DELAYED RELEASE PARTICLES 1 daily wi th 60mg DULOXETINE HCL 82088893909 No Longer Active Wayne Harms PA Active ZITHROMAX 250 MG ORAL TABLET 2 po today, then 1 po q days 2-5 20 26/12/21 AZITHROMYCIN 70906931287 No Longer Active Ismael YANG Active ALPRAZOLAM 0.25 MG ORAL TABLET 1-2 tablet by mouth up to three times daily as needed ALPRAZOLAM 42477317173 Active Shanelle Rivera RN Act rancho PREDNISONE 20 MG ORAL TABLET 3tab x 2days,2tab x 2days ,1tab x 2days,1/2tab x 2days PREDNISONE 81773473170 No Longer Active Wayne Vera jarvis PA Active PREMARIN 0.625 MG ORAL TABLET Take one by mouth daily ESTROGENS CONJUGATED 87081906263 No Longer Active Wayne Harms PA Active ZITHROMAX 250 MG ORAL TABLET 2 po today, then 1 po q days 2-5 20 26/06/19 AZITHROMYCIN 18414245128 No Longer Active Nereyda Lucke Activ e OMEGA-3 1000 MG ORAL CAPSULE 2qd OMEGA-3 FA TTY ACIDS 51320929869 No Longer Active Wayne Harms PA Active BENADRYL ITCH STOPPING 1-0.1 % EXTERNAL CREAM prn DIPHENHYDRAMINE- ZINC ACETATE 69983897639 No Longer Active Wayne Harms PA Active LOTRISONE 1-0.05 % EXTERNAL CREAM Apply bid CLOTRIMAZOLE-BETAMETHASONE 63294948241 No Longer Active Wayne Harms PA Active ZITHROMAX Z-SANJANA 250 MG ORAL TABLET take as directed 20 26/04/19 AZITHROMYCIN 83871004696 No Longer Active Wayne Harms PA Active NYSTATIN 468581 UNIT/GM EXTERNAL POWDER Apply to affected areas BID NYSTATIN 68138547922 No Longer Active Wayne Harms PA Acti ve BENADRYL 25 MG ORAL CAPSULE prn DIPHENHYDRAMINE HCL 31494222716 Active Wayne Harms PA Active LOTRISONE 1-0.05 % EXTERNAL CREAM apply twice a day 20 25/02/17 CLOTRIMAZOLE-BETAMETHASONE 94208327028 No Longer Active Wayne Harms PA Active HYDROCODONE-ACETAMINOPHEN 5-325 MG ORAL TABLET 1-2 every 4hr s prn pain HYDROCODONE-ACETAMINOPHEN 16386034941 No Longer Activ e Wayne Harms PA Active VICODIN 5-300 MG ORAL TABLET 1-2 tabs every 6hrs as needed for p ain HYDROCODONE-ACETAMINOPHEN 48092728843 No Longer Active Wayne Harms PA Active BENADRYL 25 MG ORAL CAPSULE 1prn DIPHENHYDRA MINE HCL 06362182848 No Longer Active Jillina Frazell [employer] Active ROBITUSSIN DM 100-10 MG/5ML ORAL SYRUP 2 teaspoons four times a day DEXTROMETHORPHAN-GUAIFENESIN 24363734215 No Longer Active Jillina Frazell [employer] Active ACIPHEX 20 MG ORAL TABLET DELAYED RELEASE Take one by mouth daily RABEPRAZOLE SODIUM 48757509223 No Longer Active Jillina Frazell [employer] Active TUMS 500 MG ORAL TABLET CHEWABLE prn SADIQ CIUM CARBONATE ANTACID 22427100443 No Longer Active Jillina Frazell [employer] Active PEPTO-BISMOL 524 MG/30ML ORAL SUSPENSION prn 02/26 BISMUTH SUBSALICYLATE 53453042842 No Longer Active Jillina Frazell [employer] Active BACTRIM DS 800-160 MG ORAL TABLET 1bid SULFAMETHOXAZOLE-TRIMETHOPRIM 70615215445 No Longer Active Beth Naff MEDIA MANAGER Active GAVISCON EXTRA RELIEF FORMULA CHEW prn A LUM HYDROXIDE-MAG CARBONATE CHEW 02605667928 Active Wayne Harms PA Active DIFLUCAN 150 MG ORAL TABLET 1stat FLUCONAZOL E 88130503667 No Longer Active Wayne Harms PA Active AUGMENTIN 875-125 MG ORAL TABLET 1 tab by mouth twice daily with food AMOXICILLIN-POT CLAVULANATE 90834510937 No Longer Act rancho Wayne Harms PA Active FLUTICASONE PROPIONATE 50 MCG/ACT NASAL SUSPENSION 1 t o 2 sprays each nostril twice a day FLUTICASONE PROPIONATE 87667677815 No Lo nger Active Wayne Harms PA Active HYDROCORTISONE 2.5 % EXTERNAL CREAM apply 2-4 times a day, a s directed, prn HYDROCORTISONE 76873813402 No Longer Active Wayne Harms PA Active ZITHROMAX Z-SANJANA 250 MG ORAL TABLET A ZITHROMYCIN 74421785243 No Longer Active Wayne Harms PA Active SIMVASTATIN 40 MG ORAL TABLET one tablet daily SIMVASTATIN 33458381698 No Longer Active Misty Yoo LPN Active LOVASTATIN 40 MG ORAL TABLET Take one by mouth daily 12/11 LOVASTATIN 50682114849 No Longer Active Misty Yoo MEDIA MANAGER Active PREDNISONE 20 MG ORAL TABLET 2 PO qd x 2d, 1 PO qd x 2d, 1/2 PO qd x 2d PREDNISONE 19667725814 No Longer Active Ismael silva PA Active ZITHROMAX 250 MG ORAL TABLET two tablets now and one daily x 4 d ays AZITHROMYCIN 51294407942 No Longer Active Misty Yoo MEDIA MANAGER Active ZOLPIDEM TARTRATE 10MG TABS (ZOLPIDEM TARTRATE) 1 at bedtime as needed Active Supriya Betzaida RMA Active CLOBETASOL PROPIONATE 0.05 % EXTERNAL CREAM apply as directed CLOBETASOL PROPIONATE 26558264621 No Longer Active Wayne Harms PA A ctive CYMBALTA 30 MG ORAL CAPSULE DELAYED RELEASE PARTICLES takes 90mg qod alt with 60mg DULOXETINE HCL 93663577559 No Longer Active Wayne Harm s PA Active ZITHROMAX 250 MG ORAL TABLET 2 po today, then 1 po q days 2-5 20 12/24/14 AZITHROMYCIN 12587100380 No Longer Active Wayne Harms PA Ac tive TRIAMCINOLONE ACETONIDE 0.1 % EXTERNAL CREAM apply qid TRIAMCINOLONE ACETONIDE 12989412510 No Longer Active Wayne Harms PA Active ALPRAZOLAM 0.25 MG ORAL TABLET 1 tab three times a day 201 02/23/14 ALPRAZOLAM 36775053427 No Longer Active Wayne Harms PA Active ZOLPIDEM TARTRATE 5 MG ORAL TABLET 1 at bedtime as needed ZOLPIDEM TARTRATE 19672748084 No Longer Active Beth Turner MEDIA MANAGER Active ALPRAZOLAM 0.25 MG ORAL TABLET 1 tab three times a day ALPRAZOLAM 0.25 MG ORAL TABLET 198219 ALPRAZOLAM Inactive TRIAMCINOLONE ACETONIDE 0.1 % EXTERNAL CREAM apply qid TRIAMCINOLONE ACETONIDE 0.1 % EXTERNAL CREAM 6759496 TRIAMCINOLONE A CETONIDE Inactive CYMBALTA 30 MG ORAL CAPSULE DELAYED RELEASE PARTICLES takes 90mg qod alt with 60mg CYMBALTA 30 MG ORAL CAPSULE DELAYED RELEA SE PARTICLES 867429 DULOXETINE HCL Inactive CLOBETASOL PROPIONATE 0.05 % EXTERNAL CREAM apply as directed CLOBETASOL PROPIONATE 0.05 % EXTERNAL CREAM 357488 CLOBETASOL PROPI KELVIN Inactive LOVASTATIN 40 MG ORAL TABLET Take one by mouth daily 2 LOVASTATIN 40 MG ORAL TABLET 749183 LOVASTATIN Inactive ZITHROMAX Z-SANJANA 250 MG ORAL TABLET 03/03 ZITHROMAX Z-SANJANA 250 MG ORAL TABLET 887025 AZITHROMYCIN Inactive HYDROCORTISONE 2.5 % EXTERNAL CREAM apply 2-4 times a day, a s directed, prn HYDROCORTISONE 2.5 % EXTERNAL CREAM 942634 HYDRO CORTISONE Inactive FLUTICASONE PROPIONATE 50 MCG/ACT NASAL SUSPENSION 1 t o 2 sprays each nostril twice a day FLUTICASONE PROPIONA TE 50 MCG/ACT NASAL SUSPENSION 3315260 FLUTICASONE PROPIONATE Inactive AUGMENTIN 875-125 MG ORAL TABLET 1 tab by mouth twice daily with food AUGMENTIN 875-125 MG ORAL TABLET AMOXICIL BLOSSOM-POT CLAVULANATE Inactive DIFLUCAN 150 MG ORAL TABLET 1stat DIFLUCAN 150 MG ORAL TABLET 463875 FLUCONAZOLE Inactive PEPTO-BISMOL 524 MG/30ML ORAL SUSPENSION prn PEPTO-BISMOL 524 MG/30ML ORAL SUSPENSION BISMUTH SUBSALICYLATE Inactive TUMS 500 MG ORAL TABLET CHEWABLE prn TUMS 500 MG ORAL TABLET CHEWABLE 342286 CALCIUM CARBONATE ANTACID Inactive ACIPHEX 20 MG ORAL TABLET DELAYED RELEASE Take one by mouth daily ACIPHEX 20 MG ORAL TABLET DELAYED RELEASE 565389 RABEPRAZOLE SODIUM Inactive ROBITUSSIN DM 100-10 MG/5ML [...] pain HYDROCODONE-ACETAMINOPHEN 5-325 MG ORAL TABLET 8 72046 HYDROCODONE-ACETAMINOPHEN Inactive LOTRISONE 1-0.05 % EXTERNAL CREAM apply twice a day 20 25/02/17 LOTRISONE 1- 0.05 % EXTERNAL CREAM CLOTRIMAZOLE-BETAMETHASONE Inactive NYSTATIN 489254 UNIT/GM EXTERNAL POWDER Apply to affected areas BID NYSTATIN 719224 UNIT/GM EXTERNAL POWDER 460795 NYSTATIN Inactive ZITHROMAX Z-SANJANA 250 MG ORAL TABLET take as directed 20 26/04/19 ZITHROMAX Z-SANJANA 250 MG ORAL TABLET 114284 AZITHROMYCIN Inact ranch[place] LOTRISONE 1-0.05 % EXTERNAL CREAM Apply bid LOTRISONE 1- 0.05 % EXTERNAL CREAM CLOTRIMAZOLE-BETAMETHASONE Inactive BENADRYL ITCH STOPPING 1-0.1 % EXTERNAL CREAM prn BENADRYL ITCH STOPPING 1-0.1 % EXTERNAL CREAM DIPHENHYDRAMINE-ZINC ACETATE Inactive OMEGA-3 1000 MG ORAL CAPSULE 2qd OMEGA-3 1000 MG ORAL CAPSULE 161441 OMEGA-3 FATTY ACIDS Inactive ZITHROMAX 250 MG ORAL TABLET 2 po today, then 1 po q days 2-5 20 26/06/19 ZITHROMAX 250 MG ORAL TABLET 871706 AZITHROMYCIN Mara ctive PREMARIN 0.625 MG ORAL TABLET Take one by mouth daily PREMARIN 0.625 MG ORAL TABLET ESTROGENS CONJUGATED Inactive PREDNISONE 20 MG ORAL TABLET 3tab x 2days,2tab x 2days ,1tab x 2days,1/2tab x 2days PREDNISONE 20 MG ORAL TABLET 012397 PREDNIS ONE Inactive CYMBALTA 30 MG ORAL CAPSULE DELAYED RELEASE PARTICLES 1 daily wi th 60mg CYMBALTA 30 MG ORAL CAPSULE DELAYED RELEASE PARTICLES 460070 DULOXETINE HCL Inactive CYMBALTA 60 MG ORAL CAPSULE DELAYED RELEASE PARTICLES one tablet daily, takes 30mg. with 60mg. to make 90 mg. CYMBALTA 60 MG ORAL CAPSULE DELAYED RELEASE PARTICLES 983416 DULOXETINE HCL Inacti ve CYMBALTA 30 MG ORAL CAPSULE DELAYED RELEASE PARTICLES 3 caps daily CYMBALTA 30 MG ORAL CAPSULE DELAYED RELEASE PARTICLES 570665 DULOXE ROSANNE HCL Inactive HYDROCORTISONE 2.5 % EXTERNAL CREAM Apply four times a day to af fected area HYDROCORTISONE 2.5 % EXTERNAL CREAM 522591 HYDROCORTISO NE Inactive CLARITIN 10 MG ORAL TABLET 1 tablet by mouth daily as needed for allergies CLARITIN 10 MG ORAL TABLET 097955 LORATADINE Inact rancho VENLAFAXINE HCL 75 MG ORAL TABLET 1tid VENLAFAXINE HCL 75 MG ORAL TABLET 863001 VENLAFAXINE HCL Inactive CENTRUM SILVER ADULT 50+ ORAL TABLET 1qd 2013 CENTRUM SILVER ADULT 50+ ORAL TABLET MULTIPLE VITAMINS-MINERALS Inactive CALCIUM + D 600-200 MG-UNIT TABS Take one by mouth daily CALCIUM + D 600-200 MG-UNIT TABS CALCIUM CARBONATE-VITAMIN D Inactive AMOXICILLIN 500 MG ORAL CAPSULE 2 caps tid for 10days AMOXICILLIN 500 MG ORAL CAPSULE 350502 AMOXICILLIN Inactive CYMBALTA 60 MG ORAL CAPSULE DELAYED RELEASE PARTICLES 1 cap by mouth daily CYMBALTA 60 MG ORAL CAPSULE DELAYED RELE ASE PARTICLES 286839 DULOXETINE HCL Inactive VITAMIN D 1000 UNIT ORAL TABLET 1qd 4 VITAMIN D 1000 UNIT ORAL TABLET CHOLECALCIFEROL Inactive CHERATUSSIN AC 100-10 MG/5ML ORAL SYRUP one teaspoon qid. 9 CHERATUSSIN AC 100-10 MG/5ML ORAL SYRUP GUAIFENESIN-CODEINE Inactive FLAGYL 500 MG ORAL TABLET 1 tablet by mouth three times daily 20 28/05/03 FLAGYL 500 MG ORAL TABLET 450812 METRONIDAZOLE Inacti ve CLARITIN 10 MG ORAL TABLET one tablet daily CLARITIN 10 MG ORAL TABLET 619737 LORATADINE Inactive TUSSIONEX PENNKINETIC ER 10-8 MG/5ML [...] affected area HYDROCORTISONE 2.5 % EXTERNAL CREAM 054564 HYDRO CORTISONE Inactive ACIPHEX 20 MG ORAL TABLET DELAYED RELEASE 1qd ACIPHEX 20 MG ORAL TABLET DELAYED RELEASE 583689 RABEPRAZOLE SODIUM Inactive B-12 2000 MCG ORAL TABLET 1qd B-12 2000 MCG ORAL TABLET CYANOCOBALAMIN Inactive VITAMIN D3 1000 UNIT ORAL TABLET 1qd VITAMIN D3 1000 UNIT ORAL TABLET CHOLECALCIFEROL Inactive CEPHALEXIN 250 MG ORAL CAPSULE Take one tablet qid 201 05/25/29 CEPHALEXIN 250 MG ORAL CAPSULE 850175 CEPHALEXIN Inactive FISH OIL 1200 MG ORAL CAPSULE One daily prn FISH OIL 1200 MG ORAL CAPSULE OMEGA-3 FATTY ACIDS Inactive ZITHROMAX Z-SANJANA 250 MG ORAL TABLET 2x1day,[id number] 2014 ZITHROMAX Z-SANJANA 250 MG ORAL TABLET 117626 AZITHROMYCIN Inact ranch[place] BENZONATATE 200 MG ORAL CAPSULE Take one capsule three times a d ay BENZONATATE 200 MG ORAL CAPSULE 449730 BENZONATATE Inactive GREEN TEA SLIM ORAL TABLET Take one daily GREEN TEA SLIM ORAL TABLET MISC NATURAL PRODUCTS Inactive PROBIOTIC ORAL CAPSULE Take one daily PROBIOTIC ORAL CAPSULE 8005953 PROBIOTIC PRODUCT Inactive VITAMIN D3 1000 UNIT ORAL TABLET Take two daily 05/05 VITAMIN D3 1000 UNIT ORAL TABLET CHOLECALCIFEROL Inactive HYDROCORTISONE 2.5 % EXTERNAL CREAM Apply three times a day to affected area HYDROCORTISONE 2.5 % EXTERNAL CREAM 173934 HYDRO CORTISONE Inactive MOBIC 15 MG ORAL TABLET 1 tablet by mouth daily in am with PPI 2 MOBIC 15 MG ORAL TABLET 883683 MELOXICAM Inactive CLARITIN-D 12 HOUR 5-120 MG ORAL TABLET EXTENDED RELEA SE 12 HOUR Take one tablet bid CLARITIN-D 12 HOUR 5 -120 MG ORAL TABLET EXTENDED RELEASE 12 HOUR LORATADINE-PSEUDOEPHEDRINE Inactive ACETAMINOPHEN 500 MG ORAL TABLET prn ACETAMINOPHEN 500 MG ORAL TABLET 044180 ACETAMINOPHEN Inactive CLARITIN-D 12 HOUR 5-120 MG [...] yeast 03/03 DIFLUCAN 150 MG ORAL TABLET 855394 FLUCONAZOLE Inactive DIFLUCAN 150 MG ORAL TABLET Take one tablet today and repeat in 72 hours DIFLUCAN 150 MG ORAL TABLET 173145 FLUCONAZOLE Inactive IBUPROFEN 200 MG ORAL TABLET Take 3 tablets every 6hrs IBUPROFEN 200 MG ORAL TABLET 442162 IBUPROFEN Inactive ZITHROMAX Z-SANJANA 250 MG ORAL TABLET Take 2 tablets toda y and 1 each day till gone ZITHROMAX Z-SANJANA 250 MG ORAL TABLET 230201 A ZITHROMYCIN Inactive PROAIR HFA 108 (90 [...] bowels 3 REGLAN 10 MG ORAL TABLET 313683 METOCLOPRAMIDE HCL Inactive PREDNISONE 20 MG ORAL TABLET Take 2 tablets by mouth d aily for 2 days then 1 tablet daily for 2 days. PREDNISONE 20 MG ORAL T ABLET 968307 PREDNISONE Inactive ZYRTEC ALLERGY 10 MG ORAL CAPSULE 1qd ZYRTEC ALLERGY 10 MG ORAL CAPSULE CETIRIZINE HCL Inactive ZITHROMAX 250 MG ORAL TABLET 2 po today, then 1 po q days 2-5 20 12/24/14 ZITHROMAX 250 MG ORAL TABLET 155356 AZITHROMYCIN Mara ctive ZITHROMAX 250 MG ORAL TABLET two tablets now and one daily x 4 d ays ZITHROMAX 250 MG ORAL TABLET 971198 AZITHROMYCIN Mara ctive PREDNISONE 20 MG ORAL TABLET 2 PO qd x 2d, 1 PO qd x 2d, 1/2 PO qd x 2d PREDNISONE 20 MG ORAL TABLET 384823 PREDNISONE Inactive SIMVASTATIN 40 MG ORAL TABLET one tablet daily SIMVASTATIN 40 MG ORAL TABLET 400342 SIMVASTATIN Inactive BACTRIM DS 800-160 MG ORAL TABLET 1bid BACTRIM DS 800-160 MG ORAL TABLET 780783 SULFAMETHOXAZOLE-TRIMETHOPRIM Inactive ZITHROMAX 250 MG ORAL TABLET 2 po today, then 1 po q days 2-5 20 26/12/21 ZITHROMAX 250 MG ORAL TABLET 213083 AZITHROMYCIN Mara ctive ZITHROMAX 250 MG ORAL TABLET 2 po today, then 1 po q days 2-5 20 27/02/16 ZITHROMAX 250 MG ORAL TABLET 374477 AZITHROMYCIN Mara ctive ZITHROMAX 250 MG ORAL TABLET 2 po today, then 1 po q days 2-5 20 26/02/30 ZITHROMAX 250 MG ORAL TABLET 389436 AZITHROMYCIN Mara ctive ZITHROMAX 250 MG ORAL TABLET 2 po today, then 1 po q days 2-5 20 26/06/21 ZITHROMAX 250 MG ORAL TABLET 436422 AZITHROMYCIN Mara ctive ZITHROMAX 250 MG ORAL TABLET 2 po today, then 1 po q days 2-5 20 31/03/18 ZITHROMAX 250 MG ORAL TABLET 799456 AZITHROMYCIN [place] ctive ZITHROMAX Z-SANJANA 250 MG ORAL TABLET 2 today, then 1 daily for 4 d ays ZITHROMAX Z-SANJANA 250 MG ORAL TABLET 729459 AZITHROMYCIN Inactive AMOXICILLIN 500 MG ORAL CAPSULE Take 1 capsule by mout h three times a day X 10 days AMOXICILLIN 500 MG ORAL CAPSULE 579275 AMOX ICILLIN Inactive AMOXICILLIN-POT CLAVULANATE 875-125 MG ORAL TABLET 1 pill by mouth twice daily AMOXICILLIN-POT CLAVULANATE 875-125 MG ORAL TABL ET 198754 AMOXICILLIN-POT CLAVULANATE Inactive AUGMENTIN 875-125 MG ORAL TABLET Take one tablet twice a day with food AUGMENTIN 875-125 MG ORAL TABLET AMOXICILLIN-POT CLAVULANATE Inactive POLYTRIM 87692-6.1 UNIT/ML-% OPHTHALMIC SOLUTION 1 gtt to affected eye q3h x 7 days POLYTRIM 30086-5.1 UNIT/ML-% OPH THALMIC SOLUTION 302081 POLYMYXIN B-TRIMETHOPRIM Inactive MACROBID 100 MG ORAL CAPSULE 1 cap by mouth twice daily MACROBID 100 MG ORAL CAPSULE 8929330 NITROFURANTOIN MONOHYD MACRO In active Advance Directives [...] Fluarix, Agriflu(>= 18 yo)) Fluzone (>=3 yrs.) [[id number]] Influenza, seasonal, injec table Seasonal influenza vaccine, injectable, containing preservative, for > 3 years old (Afluria, FluLaval, Fluzone, Fluvirin, Fluarix, Agriflu(>= 18 yo)) Fluzone (>3 yrs.) [[id number]] Influenza, seasonal, inject able Seasonal influenza vaccine, injectable, containing preservative, for > 3 years old (Afluria, FluLaval, Fluzone, Fluvirin, Fluarix, Agriflu(>= 18 yo)) Fluarix (>3 yrs.) [[id number]] Influenza, seasonal, inject able Vital Signs Date [...] Magnesium - Chemistry sodium, serum 138 mmol/L [phone]/09/02 carbon dioxide, venous blood 28.0 mmol/L 21.0-32 [...] 0.20 mg/dL 0.00-1.00 cholesterol, serum 228 mg/dL [phone]/09/02 triglyceride, serum, fasting 236 mg/dL 30-200 HDL [...] 0.36-3.74 Encounters Code Encounter Date Provider Facility CPT-57455 [id number] Vst-Est Level III 17:07:11 CDT Jenny Yang APRN [facility] CPT-86499 80053-Hts Vst-Est Level III 17:51:44 ASSISTANT LABORATORY DIRECTOR [place] [facility] CPT-47432 Level 3 Est. Patient 11:09:39 CDT Viviana Rubio [facility]-40788 [id number] Vst-Est Level IV 09:14:31 CDT Conchis Yang [facility] [place] CPT-75855 33583-Blm Vst-Est Level III 22:05:50 CDT Jenny Yang [facility] [place] CPT-97553 Level 3 Est. Patient 15:00:02 ASSISTANT LABORATORY DIRECTOR Will Avi jarquin [facility] CPT-51865 Level 2 Est. Patient 13:46:20 CDT Ashley Meraz [facility] [place] CPT-18097 Level 2 Est. Patient 13:45:36 CDT Ashley Meraz [facility] [place] CPT-36210 Level 3 Est. Patient 15:52:07 CDT Ashley Meraz [facility] [place] CPT-69744 Level 3 Est. Patient 08:20:37 CDT Ashley Kt [facility] [place] CPT-93919 Level 3 Est. Patient 15:06:41 CDT Derrick donaldson MD [facility] CPT-04432 Level 3 Est. Patient 11:13:21 ASSISTANT LABORATORY DIRECTOR Derrick donaldson MD [facility] CPT-25336 Level 3 Est. Patient 12:54:25 ASSISTANT LABORATORY DIRECTOR Ashley peacock [facility] [place] CPT-77869 Level 3 Est. Patient 23:34:49 ASSISTANT LABORATORY DIRECTOR Ashley Meraz [facility] [place] CPT-39139 Level 3 Est. Patient 16:37:09 ASSISTANT LABORATORY DIRECTOR Ashley peacock [facility] [place] CPT-83655 Level 3 Est. Patient 11:59:30 ASSISTANT LABORATORY DIRECTOR Ashley Meraz [facility] [place] CPT-69116 Level 4 Est. Patient 07:40:13 CDT [facility] CPT-66908 Level 4 Est. Patient 08:06:18 CDT [facility] CPT-07696 Level 3 Est. Patient 11:14:45 CDT Wayne delatorre [facility] [place] CPT-23518 Level 3 Est. Patient 10:14:55 CDT Wayne delatorre [facility] CPT-51611 Level 4 Est. Patient 15:23:47 CDT [facility] CPT-94267 Level 3 Est. Patient 07:50:51 ASSISTANT LABORATORY DIRECTOR [facility] CPT-94159 Level 3 Est. Patient 14:47:52 CDT [facility] CPT-73214 Level 3 Est. Patient 11:28:46 CDT Wayne delatorre [facility] CPT-23829 Level 4 Est. Patient 14:48:43 CDT [facility] CPT-32638 Level 3 Est. Patient 14:10:18 ASSISTANT LABORATORY DIRECTOR Wayne delatorre [facility] [place] [facility] CPT-81792 Level 3 Est. Patient 16:44:33 ASSISTANT LABORATORY DIRECTOR [facility] CPT-13319 Level 4 Est. Patient 08:22:34 ASSISTANT LABORATORY DIRECTOR [facility] CPT-83564 Level 4 Est. Patient 07:10:30 CDT [facility] CPT-65915 Level 3 Est. Patient 14:50:20 ASSISTANT LABORATORY DIRECTOR [facility] CPT-02709 Level 3 Est. Patient 09:46:08 ASSISTANT LABORATORY DIRECTOR Zuleika cha APRN [facility] [place] [facility] CPT-21881 Level 4 Est. Patient 07:56:24 ASSISTANT LABORATORY DIRECTOR Wayne delatorre [facility] CPT-68233 Level 3 Est. Patient 12:13:53 CDT Ismael Denton [facility] CPT-56224 Level 4 Est. Patient 12:28:51 ASSISTANT LABORATORY DIRECTOR [facility] CPT-92507 Level 3 Est. Patient 15:23:42 ASSISTANT LABORATORY DIRECTOR [facility] CPT-05522 Level 3 Est. Patient 06:34:33 ASSISTANT LABORATORY DIRECTOR [facility] Procedures Code Procedure Name Date Entry Date Standard Desc ription CPT-14458 Allergy Admin 2 17:02:53 CDT CPT-22722 Allergy Admin 2 16:32:35 CDT CPT-78272 Allergy Admin 2 16:26:27 CDT CPT-J3420 Vitamin B12 1000mcg (Cyanocobalamin) 16:32:13 CDT CPT-34479 Abx/Therapy Injection 16:32:13 CDT CPT-39705 Allergy Admin 2 16:32:12 CDT CPT-70812 Allergy Admin 2 16:05:03 CDT CPT-33966 Allergy Admin 2 16:35:15 CDT CPT-37783 Allergy Admin 2 16:20:41 CDT CPT-38337 Allergy Admin 2 11:25:21 CDT CPT-41349 Allergy Admin 2 15:46:12 CDT CPT-DG9535I (4274F) Influenza immunization administe red or previously received 17:51:44 ASSISTANT LABORATORY DIRECTOR CPT-12276 Spec Collection and Handling Fee 10:45:[address] CPT-IO1050S (4274F) Influenza immunization administe red or previously received 10:20:17 CDT CPT-32208 Prv Med Est Pt 40-64yrs 16:26:57 CDT CPT-28160 Venipuncture Draw Fee 11:08:31 CDT CPT-02363 Magnesium - LAB USE ONLY 11:08:31 CDT 10/15 CPT-29547 TSH - LAB USE ONLY 11:08:31 CDT CPT-34380 Lipid - LAB USE ONLY 11:08:30 CDT 2 CPT-35389 CMP - LAB USE ONLY 11:08:30 CDT CPT-94615 CBC - LAB USE ONLY 11:08:30 CDT CPT-95829 Spec Collection and Handling Fee 16:14:51 C DT CPT-49741 UA w micro - LAB USE ONLY 16:14:51 CDT 2018 CPT-47127 Prv Med Est Pt 40-64yrs 08:34:49 CDT 10/01 CPT-37473 Sed Rate - LAB USE ONLY 10:50:49 CDT 10/02 CPT-59234 TSH - LAB USE ONLY 10:50:49 CDT CPT-74707 Lipid - LAB USE ONLY 10:50:49 CDT 0 CPT-33507 Magnesium - LAB USE ONLY 10:50:49 CDT 10/02 CPT-33147 CMP - LAB USE ONLY 10:50:49 CDT CPT-13687 CBC - LAB USE ONLY 10:50:49 CDT CPT-51107 Venipuncture Draw Fee 10:50:49 CDT CPT-44919 IV Hydration < or = 1 hr 22:05:50 CDT 04/16 CPT-J7030 Normal Saline 1000 mL 22:05:50 CDT CPT-45931 Abx/Therapy Injection 16:31:51 ASSISTANT LABORATORY DIRECTOR CPT-J2950 Phenergan 25 mg 16:31:51 ASSISTANT LABORATORY DIRECTOR CPT-91907 Abx/Therapy Injection 16:39:40 CDT CPT-35337 First Vx - Ix admin via ID I M or jet injects without counseling by physician 16:39:39 CDT CPT-48837 Prv Med Est Pt 40-64yrs 16:33:10 CDT 11/10 CPT-JTINJ Asp/Joint Injection 16:13:36 CDT CPT-17989 Allergy Admin 2 16:54:52 CDT CPT-92407 Allergy Admin 2 16:46:15 CDT CPT-10901 Allergy Admin 2 11:29:09 CDT CPT-12392 Allergy Admin 2 17:05:15 CDT CPT-95934 Allergy Admin 2 12:31:51 CDT CPT-04596 Allergy Admin 2 15:40:56 CDT CPT-34280 CBC - LAB USE ONLY 09:49:24 CDT CPT-68128 CMP - LAB USE ONLY 09:49:24 CDT CPT-39026 Lipid - LAB USE ONLY 09:49:24 CDT 8 CPT-43587 Venipuncture Draw Fee 09:49:24 CDT CPT-21561 Allergy Admin 2 10:46:11 CDT CPT-JTINJ Asp/Joint Injection 09:52:58 CDT CPT-51185 Skin tag rem 1-15 13:46:20 CDT CPT-86278 Knee, right, 3V - XRAY USE ONLY 13:07:09 CD T CPT-19766 Allergy Admin 2 11:56:38 CDT CPT-73516 Allergy Admin 2 12:00:55 CDT CPT-76391 Allergy Admin 2 16:42:13 CDT CPT-74557 Allergy Admin 2 16:27:55 CDT CPT-18426 Allergy Admin 2 13:24:26 CDT CPT-50643 Allergy Admin 2 17:17:57 [facility]-57187 Allergy Admin 2 16:23:22 [facility] CPT-75110 Allergy Admin 2 16:26:55 [facility] CPT-15377 Allergy Admin 2 16:32:33 [facility] CPT-87142 Allergy Admin 2 17:43:40 [facility] CPT-73996 Allergy Admin 2 16:26:07 ASSISTANT LABORATORY DIRECTOR CPT-15410 Allergy Admin 2 12:31:50 ASSISTANT LABORATORY DIRECTOR CPT-32800 Allergy Admin 2 16:40:38 ASSISTANT LABORATORY DIRECTOR CPT-15363 Allergy Admin 2 17:07:36 CDT CPT-G0008 Administration of Influenza Virus Vaccine 17:01:01 CDT CPT-21662 First Vx - Ix admin via ID I M or jet injects without counseling by physician 17:01:01 CDT CPT-71763 Allergy Admin 2 12:06:54 CDT CPT-83764 Allergy Admin 2 17:04:46 CDT CPT-52960 Allergy Admin 2 16:34:48 CDT CPT-62304 Allergy Admin 2 17:04:51 CDT CPT-48404 Allergy Admin 2 16:25:14 CDT CPT-50971 Allergy Admin 2 10:52:02 CDT CPT-36667 Allergy Admin 2 11:45:31 CDT CPT-83150 Allergy Admin 2 12:02:20 CDT CPT-25675 Allergy Admin 2 15:47:29 CDT CPT-49287 Allergy Admin 2 13:25:44 CDT CPT-22158 Allergy Admin 2 10:51:13 CDT CPT-22375 CBC - LAB USE ONLY 10:44:39 CDT CPT-96316 CMP - LAB USE ONLY 10:44:39 CDT CPT-66332 Lipid - LAB USE ONLY 10:44:39 CDT 9 CPT-06434 Venipuncture Draw Fee 10:44:38 CDT CPT-62617 Allergy Admin 2 12:25:22 CDT CPT-21117 Allergy Admin 2 12:41:34 CDT CPT-77210 Allergy Admin 2 15:29:46 CDT CPT-32563 Allergy Admin 2 14:46:53 CDT CPT-59053 Allergy Admin 2 14:16:16 CDT CPT-94547 Allergy Admin 2 16:55:26 CDT CPT-14557 Allergy Admin 2 10:12:02 T CPT-06949 Allergy Admin 2 14:53:56 CDT CPT-78144 Allergy Admin 2 17:01:54 T CPT-54067 Allergy Admin 2 09:36:02 T CPT-84658 Allergy Admin 2 16:53:26 [facility] CPT-08451 Allergy Admin 2 16:59:41 [facility] CPT-39157 Allergy Admin 2 16:36:44 [facility] CPT-49131 Allergy Admin 2 16:17:16 [facility] CPT-84654 Allergy Admin 2 17:08:10 [facility] CPT-06312 Allergy Admin 2 12:16:08 [facility] CPT-90315 Allergy Admin 2 16:47:30 [facility] CPT-85516 Allergy Admin 2 16:59:44 [facility] CPT-41218 Allergy Admin 2 12:48:53 [facility] CPT-19952 Allergy Admin 2 10:19:48 [facility] CPT-63349 Allergy Admin 2 12:40:17 [facility] CPT-88211 Abx/Therapy Injection 17:21:59 ASSISTANT LABORATORY DIRECTOR CPT-83593 First Vx - Ix admin via ID I M or jet injects without counseling by physician 17:21:57 ASSISTANT LABORATORY DIRECTOR CPT-02910 Allergy Admin 2 17:20:12 ASSISTANT LABORATORY DIRECTOR CPT-88462 Allergy Admin 2 11:12:50 ASSISTANT LABORATORY DIRECTOR CPT-08136 Allergy Admin 2 17:02:39 CDT CPT-78071 BMP - LAB USE ONLY 10:33:02 CDT CPT-70798 CBC - LAB USE ONLY 10:33:02 CDT CPT-63506 Venipuncture Draw Fee 10:33:02 CDT CPT-59711 Abx/Therapy Injection 12:29:08 CDT CPT-04112 Allergy Admin 2 10:39:48 CDT CPT-42535 Allergy Admin 2 10:55:47 CDT CPT-PV Prev. Care Visit 10:10:00 CDT CPT-00898 Allergy Admin 2 11:31:20 CDT CPT-20679 Allergy Admin 2 16:53:45 CDT CPT-56319 Allergy Admin 2 16:36:42 CDT CPT-25020 Allergy Admin 2 16:30:19 CDT CPT-45803 Allergy Admin 2 15:39:35 CDT CPT-05570 Allergy Admin 2 17:51:32 CDT CPT-68828 Allergy Admin 2 11:50:50 CDT CPT-PV Prev. Care Visit 14:09:05 CDT CPT-91343 Allergy Admin 2 13:37:39 CDT CPT-07290 Abx/Therapy Injection 12:17:43 CDT CPT-57128 Venipuncture Draw Fee 10:39:55 CDT CPT-97501 Allergy Admin 2 12:04:53 CDT CPT-17786 Allergy Admin 2 10:04:39 CDT CPT-05244 Allergy Admin 2 12:15:35 CDT CPT-62411 Allergy Admin 2 17:04:36 CDT CPT-35734 Allergy Admin 2 16:25:49 CDT CPT-80077 Allergy Admin 2 17:30:06 CDT CPT-61575 Allergy Admin 2 10:11:48 CDT CPT-72032 Allergy Admin 2 17:06:13 CDT CPT-11172 Abx/Therapy Injection 12:23:07 CDT CPT-J0702 Celestone 12 mg (Betamethasone) 12:23:07 CD T CPT-48417 Venipuncture Draw Fee 10:26:42 CDT CPT-50056 Allergy Admin 2 12:10:01 CDT CPT-04053 Allergy Admin 2 15:13:57 ASSISTANT LABORATORY DIRECTOR CPT-53744 Allergy Admin 2 16:55:22 ASSISTANT LABORATORY DIRECTOR CPT-01798 Allergy Admin 2 10:13:46 ASSISTANT LABORATORY DIRECTOR CPT-40025 Venipuncture Draw Fee 10:06:08 ASSISTANT LABORATORY DIRECTOR CPT-42445 Allergy Admin 2 16:15:41 ASSISTANT LABORATORY DIRECTOR CPT-70844 Allergy Admin 2 16:40:21 ASSISTANT LABORATORY DIRECTOR CPT-73360 Allergy Admin 2 16:31:48 ASSISTANT LABORATORY DIRECTOR CPT-17116 Allergy Admin 2 16:38:26 ASSISTANT LABORATORY DIRECTOR CPT-21543 Allergy Admin 2 16:40:08 ASSISTANT LABORATORY DIRECTOR CPT-96465 Allergy Admin 2 08:34:27 ASSISTANT LABORATORY DIRECTOR CPT-50180 Allergy Admin 2 14:27:45 ASSISTANT LABORATORY DIRECTOR CPT-37665 Destruction bgn lsn up to 14 09:41:27 ASSISTANT LABORATORY DIRECTOR 2 CPT-19640 Allergy Admin 2 17:45:17 ASSISTANT LABORATORY DIRECTOR CPT-34730 Allergy Admin 2 14:59:03 ASSISTANT LABORATORY DIRECTOR CPT-48586 Allergy Admin 2 12:49:42 CDT CPT-80809 Administration single or combination vac cine inc oral 15:01:57 CDT CPT-07250 Fluzone Quadrivalent Intramuscular Suspe nsion 0.5 ML 15:01:57 CDT CPT-18926 Allergy Admin 2 15:07:08 CDT CPT-26494 Allergy Admin 2 15:39:01 CDT CPT-18085 Allergy Admin 2 17:40:11 CDT CPT-78665 Allergy Admin 2 16:07:08 CDT CPT-19512 Allergy Admin 2 16:08:07 CDT CPT-57635 Venipuncture Draw Fee 09:34:29 CDT CPT-73840 Allergy Admin 2 16:27:43 CDT CPT-31681 Allergy Admin 2 15:53:10 CDT CPT-98633 Allergy Admin 2 15:42:29 CDT CPT-03509 Allergy Admin 2 11:26:14 CDT CPT-24804 Allergy Admin 2 10:36:24 CDT CPT-65039 Allergy Admin 2 16:53:37 CDT CPT-19179 Allergy Admin 2 11:21:44 CDT CPT-21175 Allergy Admin 2 10:50:40 CDT CPT-09296 Allergy Admin 2 11:19:11 CDT CPT-84709 Venipuncture Draw Fee 11:12:25 CDT CPT-86335 Allergy Admin 2 11:14:51 CDT CPT-16255 Allergy Admin 2 16:53:11 CDT CPT-31827 Allergy Admin 2 11:45:56 CDT CPT-78019 Allergy Admin 2 12:51:39 CDT CPT-09617 Allergy Admin 2 12:08:56 CDT CPT-30730 Allergy Admin 2 15:29:45 CDT CPT-97960 Allergy Admin 2 16:34:01 CDT CPT-75091 Allergy Admin 2 16:36:46 CDT CPT-07223 Allergy Admin 2 15:19:16 CDT CPT-01919 Allergy Admin 2 16:13:25 CDT CPT-50376 Allergy Admin 2 17:06:17 CDT CPT-40707 Allergy Admin 2 10:42:10 ASSISTANT LABORATORY DIRECTOR CPT-53585 Allergy Admin 2 17:33:16 ASSISTANT LABORATORY DIRECTOR CPT-81498 Allergy Admin 2 10:53:30 ASSISTANT LABORATORY DIRECTOR CPT-31088 Allergy Admin 2 14:18:24 ASSISTANT LABORATORY DIRECTOR CPT-45204 Allergy Admin 2 10:18:29 ASSISTANT LABORATORY DIRECTOR CPT-80957 Allergy Admin 2 12:57:40 ASSISTANT LABORATORY DIRECTOR CPT-48244 Allergy Admin 2 16:53:33 ASSISTANT LABORATORY DIRECTOR CPT-30508 Allergy Admin 2 12:43:00 ASSISTANT LABORATORY DIRECTOR CPT-05164 Allergy Admin 2 13:14:09 ASSISTANT LABORATORY DIRECTOR CPT-76069 Pneumovax 23 Injection Injectable 25 MCG /0.5ML 09:51:29 ASSISTANT LABORATORY DIRECTOR CPT-G0009 Administration of Pneumococcal Vaccine 09:51:29 ASSISTANT LABORATORY DIRECTOR CPT-10899 Influenza split virus > age 3 09:51:29 ASSISTANT LABORATORY DIRECTOR CPT-G0008 Administration of Influenza Virus Vaccine 02/23 09:51:29 ASSISTANT LABORATORY DIRECTOR CPT-45462 Venipuncture Draw Fee 10:31:06 CDT CPT-J0702 Celestone 12 mg (Betamethasone) 11:34:17 CD T CPT-81567 Abx/Therapy Injection 11:34:17 CDT CPT-03887 Chest 2V Frontal and Lat 11:31:47 CDT 07/04 CPT-42886 Venipuncture Draw Fee 11:31:47 CDT CPT-22306 Allergy Admin 2 14:31:05 CDT CPT-15856 EKG Trac and Interp 08:42:32 CDT CPT-84528 Chest 2V Frontal and Lat 08:42:32 CDT 05/28 CPT-83110 Venipuncture Draw Fee 08:39:02 CDT CPT-85344 Allergy Admin 2 16:59:09 CDT CPT-81333 Allergy Admin 2 17:06:11 CDT CPT-21221 Allergy Admin 2 16:04:36 CDT CPT-85662 Venipuncture Draw Fee 16:32:44 ASSISTANT LABORATORY DIRECTOR CPT-06118 Venipuncture Draw Fee 10:54:37 ASSISTANT LABORATORY DIRECTOR CPT-43848 Allergy Admin 2 14:53:55 ASSISTANT LABORATORY DIRECTOR CPT-09834 Allergy Admin 2 10:23:58 ASSISTANT LABORATORY DIRECTOR CPT-47321 First Vx Component - Ix admi n via ID IM or jet inj without physician counseling 15:34:26 ASSISTANT LABORATORY DIRECTOR CPT-73064 Fluzone (>=3 yrs.) 15:34:26 ASSISTANT LABORATORY DIRECTOR CPT-76947 Allergy Admin 2 15:56:02 ASSISTANT LABORATORY DIRECTOR CPT-47177 Allergy Admin 2 11:08:58 ASSISTANT LABORATORY DIRECTOR CPT-61696 Allergy Admin 2 10:51:36 ASSISTANT LABORATORY DIRECTOR CPT-34732 Allergy Admin 2 15:38:19 ASSISTANT LABORATORY DIRECTOR CPT-54055 Allergy Admin 2 15:12:46 CDT CPT-30881 Allergy Admin 2 10:28:50 CDT CPT-20998 Allergy Admin 2 16:35:33 CDT CPT-99742 Allergy Admin 2 10:14:18 CDT CPT-91497 Abx/Therapy Injection 09:06:45 CDT CPT-J0702 Celestone 6 mg (Betamethasone) 09:06:45 CDT CPT-62526 Allergy Admin 2 15:51:15 CDT CPT-02632 Allergy Admin 2 10:40:16 CDT CPT-38191 Allergy Admin 2 16:35:55 CDT CPT-86304 Allergy Admin 2 13:12:52 CDT CPT-57494 Allergy Admin 2 16:06:50 CDT CPT-19582 Allergy Admin 2 11:04:24 CDT CPT-88642 Allergy Admin 2 10:44:50 CDT CPT-70357 Allergy Admin 2 15:13:40 CDT CPT-18843 Allergy Admin 2 15:00:03 CDT CPT-30237 Allergy Admin 2 10:37:38 CDT CPT-53154 Venipuncture Draw Fee 09:16:43 ASSISTANT LABORATORY DIRECTOR CPT-87317 Allergy Admin 2 11:15:59 ASSISTANT LABORATORY DIRECTOR CPT-26734 Postop F/U Visit 10:10:52 ASSISTANT LABORATORY DIRECTOR CPT-09779 Allergy Admin 2 13:05:05 ASSISTANT LABORATORY DIRECTOR CPT-44900 Postop F/U Visit 19:45:16 ASSISTANT LABORATORY DIRECTOR CPT-64218 Allergy Admin 2 11:52:35 ASSISTANT LABORATORY DIRECTOR CPT-91445 Allergy Admin 2 10:49:22 ASSISTANT LABORATORY DIRECTOR CPT-OV Office Visit 13:55:55 ASSISTANT LABORATORY DIRECTOR CPT-67042 Allergy Admin 2 12:54:28 ASSISTANT LABORATORY DIRECTOR CPT-OV Office Visit 14:04:48 ASSISTANT LABORATORY DIRECTOR CPT-59730 Venipuncture Draw Fee 10:29:14 ASSISTANT LABORATORY DIRECTOR CPT-70727 Allergy Admin 2 11:24:43 ASSISTANT LABORATORY DIRECTOR CPT-64504 Knee 3V 11:00:12 ASSISTANT LABORATORY DIRECTOR CPT-28198 C-Spine Min 4V 11:00:12 ASSISTANT LABORATORY DIRECTOR CPT-63355 Allergy Admin 2 13:38:40 ASSISTANT LABORATORY DIRECTOR CPT-43408 Venipuncture Draw Fee 11:33:37 CDT CPT-11645 Allergy Admin 2 15:34:37 CDT CPT-77135 Allergy Admin 2 14:11:42 CDT CPT-11189 Administration single or combination vac cine inc oral 12:51:42 CDT CPT-85764 Influenza split virus > age 3 12:51:42 CDT CPT-79572 Allergy Admin 2 11:58:43 CDT CPT-71084 Allergy Admin 2 11:29:32 CDT CPT-78755 Allergy Admin 2 10:55:19 CDT CPT-17287 Allergy Admin 2 12:38:54 CDT CPT-99119 Allergy Admin 2 13:01:47 CDT CPT-87643 Abx/Therapy Injection 12:41:18 CDT CPT-J0702 Celestone 12 mg (Betamethasone) 12:41:18 CD T CPT-99336 Abx/Therapy Injection 16:33:09 CDT CPT-J0702 Celestone 12 mg (Betamethasone) 16:33:09 CD T CPT-71671 Allergy Admin 2 15:49:09 CDT CPT-47037 Allergy Admin 2 12:08:56 CDT CPT-50835 Allergy Admin 2 12:19:10 CDT CPT-25999 Allergy Admin 2 12:46:56 CDT CPT-15517 Allergy Admin 2 15:05:13 CDT CPT-20500 Allergy Admin 2 15:36:20 CDT CPT-91303 Allergy Admin 2 09:58:47 ASSISTANT LABORATORY DIRECTOR CPT-98946 Allergy Admin 2 12:18:06 ASSISTANT LABORATORY DIRECTOR CPT-90892 Allergy Admin 2 10:01:48 ASSISTANT LABORATORY DIRECTOR CPT-89611 Allergy Admin 2 12:17:53 ASSISTANT LABORATORY DIRECTOR CPT-56530 Allergy Admin 2 10:06:44 ASSISTANT LABORATORY DIRECTOR CPT-35026 Allergy Admin 2 10:13:04 ASSISTANT LABORATORY DIRECTOR CPT-87875 Venipuncture Draw Fee 10:09:07 ASSISTANT LABORATORY DIRECTOR CPT-75453 Bone Density 12:24:51 ASSISTANT LABORATORY DIRECTOR CPT-33225 Allergy Admin 2 11:29:41 ASSISTANT LABORATORY DIRECTOR CPT-96885 Allergy Admin 2 16:07:15 ASSISTANT LABORATORY DIRECTOR CPT-63026 Breathing Treatment 06:34:33 ASSISTANT LABORATORY DIRECTOR CPT-J0702 Celestone 12 mg (Betamethasone) 06:34:33 CS T CPT-88398 Abx/Therapy Injection 06:34:33 ASSISTANT LABORATORY DIRECTOR CPT-91144 Breathing Tx 11:07:33 ASSISTANT LABORATORY DIRECTOR CPT-22850 Allergy Admin 2 10:02:33 CDT CPT-21878 Allergy Admin 2 10:02:33 CDT CPT-55708 Allergy Admin 2 15:26:19 CDT CPT-92465 Administration single or combination vac cine inc oral 15:41:12 CDT CPT-29296 Influenza split virus > age 3 15:41:12 CDT
--- OUTSIDE RECORDS SUMMARY | 2020-09-15 14:41 | XMS REPORT | Clinical Summary ---
Author Author Admin, Supriya Zuniga Organization [facility] Address Unknown Phone Unavailable Allergies, Adverse [...] Yang APRN Pruritus vulvae Active Ashley Yokum INSTRUMENT LENS GRINDER Screening mammogram V76.12 Resolved Ashley Yokum A PRN Other screening mammogram Sinusitis, acute maxillary 461.0 Inactive 7 Ashley Yokum INSTRUMENT LENS GRINDER Acute maxillary sinusitis Diarrhea, acute 787.91 Resolved Ashley Yokum INSTRUMENT LENS GRINDER Diarrhea Vaginal candidiasis 112.1 Resolved Ashley Yokum A PRN Candidiasis of vulva and vagina Accidental fall E888.9 Resolved Ashley Yokum INSTRUMENT LENS GRINDER Unspecified fall Contusion of left hand, initial encounter 923.20 Resol burak Ashley Yokum INSTRUMENT LENS GRINDER Contusion of hand(s) Contusion of right upper arm, subsequent encounter V58.89 201 09/14/21 Resolved Ashley Yokum INSTRUMENT LENS GRINDER Encounter for other specified a ftercare Ganglion cyst of left wrist 727.41 Active Derrick Younger MD Ganglion of joint Body Mass Index 31.0-31.9 Adult Resolved 2017 Ashley Yokum INSTRUMENT LENS GRINDER Body Mass Index 31.0-31.9, adult Plantar fasciitis 728.71 Active Ashley Yokum INSTRUMENT LENS GRINDER Plantar fascial fibromatosis Bronchitis, acute 466.0 Inactive Ashley Yokum APR N Acute bronchitis Body Mass Index 30.0-30.9 Adult Resolved 2017 Ashley Yokum INSTRUMENT LENS GRINDER Body Mass Index 30.0-30.9, adult Allergic conjunctivitis, bilateral 372.14 Resolved 2 Ashley Yokum INSTRUMENT LENS GRINDER Other chronic allergic conjunctivitis Skin tags; irritated/inflammed 701.9 Resolved 11/10 Ashley Yokum INSTRUMENT LENS GRINDER Unspecified hypertrophic and atrophic co nditions of skin Body Mass Index 31.0-31.9 Adult Refinement 2017 Ashley Yokum INSTRUMENT LENS GRINDER Body Mass Index 31.0-31.9, adult BMI 30-30.9 Refinement Ashley Yokum INSTRUMENT LENS GRINDER Body Mass Index 31.0-31.9, adult BMI 31-31.9 Refinement Ashley Yokum INSTRUMENT LENS GRINDER Body Mass Index 31.0-31.9, adult BMI 32-32.9 Refinement Lois Faith RN Body Mass Index 31.0-31.9, adult BMI 31-31.9 Active Viviana Rubio APRN-Julieta Body Mass Index 31.0-31.9, adult Major depression, recurrent, moderate 296.32 Active Ashley Yokum INSTRUMENT LENS GRINDER Major depressive disorder, recurrent epi sode, moderate degree Obesity Class I (BMI 30-34.9) Active Ashley Y okum INSTRUMENT LENS GRINDER Obesity, unspecified Nausea and vomiting 787.01 Resolved Ashley Yokum A PRN Nausea with vomiting Gastroenteritis acute 558.9 Resolved Ashley Yokum INSTRUMENT LENS GRINDER Other and unspecified noninfectious gastroenteritis and colitis GERD 530.81 Active Ashley Yokum INSTRUMENT LENS GRINDER E sophageal reflux Joint pain 719.40 Resolved Ashley Yokum INSTRUMENT LENS GRINDER Pain in joint, site unspecified Preventive health care, adult V70.0 Inactive /06 Ashley Yokum INSTRUMENT LENS GRINDER Routine general medical examination at a health care facility Blood in urine 599.70 Resolved Ashley Yokum INSTRUMENT LENS GRINDER Hematuria, unspecified Other abnormal findings in urine Resolved Ashley Yokum INSTRUMENT LENS GRINDER Urinary tract infection 599.0 Inactive Ashley Yok um INSTRUMENT LENS GRINDER Urinary tract infection, site not specified Chafing of skin 709.8 Resolved Ashley Yokum INSTRUMENT LENS GRINDER Other specified disorders of skin Preventive care V70.0 Active Supriya Huston A Routine general medical examination at a health care facility Gynecological examination, routine V72.3 Inactive 2 Ashley Yokum INSTRUMENT LENS GRINDER Special investigations and e xaminations - Gynecological examination Near syncope 780.2 Resolved Ashley Yokum INSTRUMENT LENS GRINDER Syncope and collapse Lightheadedness 780.4 Resolved Ashley Yokum INSTRUMENT LENS GRINDER Dizziness and giddiness Headache 784.0 Resolved Ashley Yokum INSTRUMENT LENS GRINDER Headache Sore throat 462 Resolved Ashley Yokum INSTRUMENT LENS GRINDER Acute pharyngitis Sinusitis - acute 461.9 Resolved Ashley Yokum APR N Acute sinusitis, unspecified Tired all the time 780.79 Resolved Ashley Yokum AP RN Other malaise and fatigue Fatigue 780.79 Inactive Ashley Yokum INSTRUMENT LENS GRINDER Other malaise and fatigue ABNORMAL WEIGHT GAIN ICD-783.1 Inactive Wayne YANG ALLERGIC RHINITIS ICD-477.9 Inactive Lois Angelo mendieta INSTRUMENT LENS GRINDER SINUSITIS ICD-473.9 Inactive Lois Deric INSTRUMENT LENS GRINDER 2012 WHEEZING ICD-786.07 Inactive Lois Deric INSTRUMENT LENS GRINDER 2012 UPPER RESPIRATORY INFECTION, ACUTE ICD-465.9 I nactive Lois Deric INSTRUMENT LENS GRINDER NEED FOR DESENSITIZATION TO ALLERGENS ICD-V07.1 8 Inactive Ashley Yokum INSTRUMENT LENS GRINDER OBESITY ICD-278.00 Inactive Wayne YANG CONTACT DERMATITIS DUE TO POISON ARANZA ICD-692.6 Inactive oLis Leos INSTRUMENT LENS GRINDER NEED PROPHYLACTIC VACCINATION&INOCULATION FLU ICD-V04.81 Inactive Wayne Harms PA GERD ICD-530.81 Inactive Lois Leos INSTRUMENT LENS GRINDER 03/22 LONG-TERM (CURRENT) USE OF OTHER MEDICATIONS ICD-V58.69 6 Inactive Wayne Harms PA NECK PAIN ICD-723.1 Inactive Wayne Harms PA 06/15 DEGENERATIVE DISC DISEASE, CERVICAL SPINE ICD-722.4 Inactive Wayne Harms PA SKIN TAG ICD-701.9 Inactive Wayne Harms PA G E R D ICD-530.81 Inactive Lois Leos INSTRUMENT LENS GRINDER CANDIDIASIS OF SKIN AND NAILS ICD-112.3 Inacti ve Wayne Harms PA AFTERCARE FOLLOW SURGERY MUSCULOSKEL SYSTEM NEC ICD-V58.78 Inactive Wayne Harms PA PHARYNGITIS ICD-462 Inactive Wayne Harms PA 05/03 OTHER SCREENING MAMMOGRAM ICD-V76.12 Inactive Wayne Harms PA DYSPAREUNIA, MILD ICD-625.0 Inactive Wayne Harm s PA CONTACT DERMATITIS DUE TO POISON ARANZA ICD-692.6 Inactive Wayne Harms PA Sinusitis, chronic ICD-473.9 Inactive Ashley vallejo INSTRUMENT LENS GRINDER Myalgia ICD-729.1 Inactive Wayne Harms PA Rheumatoid [...] PA Runny nose ICD-472.0 Inactive Ashley Yang INSTRUMENT LENS GRINDER Influenza like illness ICD-487.1 Inactive Wayne Moon PA Acute maxillary sinusitis ICD-461.0 Inactive Ashley Yokum INSTRUMENT LENS GRINDER Preventive health care ICD-V70.0 Inactive Jenny mo Yokum INSTRUMENT LENS GRINDER Well women exam ICD-V72.3 Inactive Ashley Yokum INSTRUMENT LENS GRINDER Screening mammogram ICD-V76.12 Inactive Ashley Yokum INSTRUMENT LENS GRINDER Sinusitis, acute maxillary ICD-461.0 Inactive Ashley Yokum INSTRUMENT LENS GRINDER Diarrhea, acute ICD-787.91 Inactive Ashley Merazu m INSTRUMENT LENS GRINDER Vaginal candidiasis ICD-112.1 Inactive Ashley Y abdonum INSTRUMENT LENS GRINDER Accidental fall ICD-E888.9 Inactive Ashley Yoku m INSTRUMENT LENS GRINDER Contusion of left hand, initial encounter ICD-923.20 Inactive Ashley Yokum INSTRUMENT LENS GRINDER Contusion of right upper arm, subsequent encounter ICD-V58.89 Inactive Ashley Yokum INSTRUMENT LENS GRINDER Body Mass Index 31.0-31.9 Adult Inac tive Ashley Yokum INSTRUMENT LENS GRINDER Bronchitis, acute ICD-466.0 Inactive Ashley Yok um INSTRUMENT LENS GRINDER Body Mass Index 30.0-30.9 Adult Inac tive Ashley Yokum INSTRUMENT LENS GRINDER Allergic conjunctivitis, bilateral ICD-372.14 I nactive Ashley Yokum INSTRUMENT LENS GRINDER Skin tags; irritated/inflammed ICD-701.9 Inact rancho Ashley Yokum INSTRUMENT LENS GRINDER Nausea and vomiting ICD-787.01 Inactive Ashley Yokum INSTRUMENT LENS GRINDER Gastroenteritis acute ICD-558.9 Inactive Conchis hi Yokum INSTRUMENT LENS GRINDER Joint pain ICD-719.40 Inactive Ashley Yokum APR N Preventive health care, adult ICD-V70.0 Inacti ve Ashley Yokum INSTRUMENT LENS GRINDER Blood in urine ICD-599.70 Inactive Ashley Yokum INSTRUMENT LENS GRINDER Other abnormal findings in urine [place] ctive Ashley Yokum INSTRUMENT LENS GRINDER Urinary tract infection ICD-599.0 Inactive K athi Yokum INSTRUMENT LENS GRINDER Chafing of skin ICD-709.8 Inactive Ashley Yokum INSTRUMENT LENS GRINDER Gynecological examination, routine ICD-V72.3 I nactive Ashley Yokum INSTRUMENT LENS GRINDER Near syncope ICD-780.2 Inactive Ashley Yokum AP RN Lightheadedness ICD-780.4 Inactive Ashley Yokum INSTRUMENT LENS GRINDER Headache ICD-784.0 Inactive Ashley Yokum INSTRUMENT LENS GRINDER 2020 Sore throat ICD-462 Inactive Ashley Yokum INSTRUMENT LENS GRINDER 02/17/17 Sinusitis - acute ICD-461.9 Inactive Ashley Yok um INSTRUMENT LENS GRINDER Tired all the time ICD-780.79 Inactive Ashley gutierrez INSTRUMENT LENS GRINDER Fatigue ICD-780.79 Inactive Ashley Yang INSTRUMENT LENS GRINDER 2020 Medication List Medication Instructions Start Date Stop Date Generic Name NDC Status Provider Patient Instruction PHENTERMINE HCL 37.5 MG ORAL TABLET 1/2 qAM, can incre ase to 1 qAM - take 30 min before or 2 hrs after breakfast PHENTERMINE HCL 02430 943444 Active Ashley Yang APRN Active MUCINEX D 60-600 MG ORAL TABLET EXTENDED RELEASE 12 HO UR 1 po BID PRN Congestion PSEUDOEPHEDRINE-GUAIFENESIN 16251869576 Active Ashley Yang APRN Active ZYRTEC ALLERGY 10 MG ORAL CAPSULE 1qd CETIR IZINE HCL 14635451473 No Longer Active Ashley Yang APRN Active HAIR, SKIN, NAILS VITAMINS take 1 tab by mouth 2x a day HAIR, SKIN, NAILS VITAMINS Active Ashley Yang APRN Active CENTRUM SILVER FOR WOMEN OVER 50 1 tab by mouth by day. CENTRUM SILVER FOR WOMEN OVER 50 Active Ashley Yang APRN Active VITAMIN D3 1000 UNIT ORAL CAPSULE 1 po qd CH OLECALCIFEROL 26124511402 Active Ashley Yang APRN Active PREDNISONE 20 MG ORAL TABLET Take 2 tablets by mouth d aily for 2 days then 1 tablet daily for 2 days. PREDNISONE 09008362319 No Longer Active Ashley Yang INSTRUMENT LENS GRINDER Active MELOXICAM 15 MG ORAL TABLET TAKE 1 TABLET BY MOUTH IN THE MORNING 2 MELOXICAM 63992633911 Active LARRY Murillo Active CLARITIN 10 MG ORAL TABLET 1 tablet by mouth daily as needed for allergies LORATADINE 18640943226 Active Supriya JUAREZ Active SIMVASTATIN 40 MG ORAL TABLET TAKE 1 TABLET BY MOUTH ONCE DA JAVON AT BEDTIME SIMVASTATIN 98915777593 Active LARRY Murillo Active UBUPGTF-TKDIEHEZE-RAOY ORAL TABLET MULT IPLE MINERALS 88037651131 Active Lois Faith, RN Active SERTRALINE HCL 100 MG ORAL TABLET Take 1 tablet by mouth once da javon SERTRALINE HCL 79728403837 Active Marcy Medina, RMA A ctive REGLAN 10 MG ORAL TABLET 1 po qid for bowels 3 METOCLOPRAMIDE HCL 18410099870 No Longer Active Ashley Yokum INSTRUMENT LENS GRINDER A ctive ADK [id number] UNIT-MCG ORAL CAPSULE 1 daily VITAMINS A D K 65910612664 Active Ashley Yokum INSTRUMENT LENS GRINDER Active B-12 2500 MCG ORAL TABLET 1 daily CYANOCOBAL HUNT 65760193663 No Longer Active Ashley Yokum INSTRUMENT LENS GRINDER Active ESTRADIOL 2 MG TABS Take 1 tablet by mouth once daily ESTRADIOL 20008541155 Active Shanelle Rivera RN Active MACROBID 100 MG ORAL CAPSULE 1 cap by mouth twice daily NITROFURANTOIN MONOHYD MACRO 77750776619 No Longer Active Ashley Yokum INSTRUMENT LENS GRINDER Active FISH OIL + D3 1759-4657 MG-UNIT ORAL CAPSULE 1 dailly 4 FISH OIL-CHOLECALCIFEROL 99626808385 Active Ashley Yokum INSTRUMENT LENS GRINDER Acti ve PROAIR HFA 108 (90 BASE) MCG/ACT INHALATION AEROSOL SO LUTION 2 puffs four times a day as needed ALBUTEROL SULFATE 78248364919 No Long er Active Ashley Yokum INSTRUMENT LENS GRINDER Active ZITHROMAX Z-SANJANA 250 MG ORAL TABLET Take 2 tablets toda y and 1 each day till gone AZITHROMYCIN 18361863397 No Longer Active Ashley Yokum INSTRUMENT LENS GRINDER Active POLYTRIM 08970-9.1 UNIT/ML-% OPHTHALMIC SOLUTION 1 gtt to affected eye q3h x 7 days POLYMYXIN B-TRIMETHOPRIM 49202401947 No Longer Active Ashley Yokum INSTRUMENT LENS GRINDER Active IBUPROFEN 200 MG ORAL TABLET Take 3 tablets every 6hrs 201 09/17/15 IBUPROFEN 46665532794 No Longer Active Ashley Yokum INSTRUMENT LENS GRINDER Active DIFLUCAN 150 MG ORAL TABLET Take one tablet today and repeat in 72 hours FLUCONAZOLE 67673681564 No Longer Active Derrick cardenas MD Active DIFLUCAN 150 MG ORAL TABLET 1 by mouth for yeast 03/03 FLUCONAZOLE 91390088463 No Longer Active Ashley Yang INSTRUMENT LENS GRINDER Active AUGMENTIN 875-125 MG ORAL TABLET Take one tablet twice a day with food AMOXICILLIN-POT CLAVULANATE 22072425720 No Longer Act rancho Ashley Yang INSTRUMENT LENS GRINDER Active CALCIUM 600 + D 600-200 MG-UNIT ORAL TABLET Take one daily CALCIUM CARB-CHOLECALCIFEROL 41244663039 No Longer Active Ashley Yang APRN Active FLONASE 50 MCG/ACT NASAL SUSPENSION 1 spray each nostr il twice daily for allergies and runny nose FLUTICASONE PROPIONATE 98085319124 No Longer Active Ashley Yang APRN Active CLARITIN-D 12 HOUR 5-120 MG ORAL TABLET EXTENDED RELEA SE 12 HOUR Take one tablet BID as needed for allergies LORATADINE-PSEUDOEP HEDRINE 04967710330 No Longer Active Bethmarquez Turner THREAD SINGER Active AMOXICILLIN-POT CLAVULANATE 875-125 MG ORAL TABLET 1 pill by mouth twice daily AMOXICILLIN-POT CLAVULANATE 81905333317 No Longer Act rancho Ashley Yang INSTRUMENT LENS GRINDER Active AMOXICILLIN 500 MG ORAL CAPSULE Take 1 capsule by mout h three times a day X 10 days AMOXICILLIN 41224137858 No Longer Active Wayne H arms PA Active PROBIOTIC DAILY ORAL CAPSULE Take one daily PROBIO TIC PRODUCT 15438882471 Active Wayne Harms PA Active TYLENOL 325 MG ORAL TABLET Take 2 every 6hrs prn A CETAMINOPHEN 24620078578 Active Wayne Harms PA Active ACETAMINOPHEN 500 MG ORAL TABLET prn RICH TAMINOPHEN 02358832357 No Longer Active Wayne Harms PA Active CLARITIN-D 12 HOUR 5-120 MG ORAL TABLET EXTENDED RELEA SE 12 HOUR Take one tablet bid LORATADINE-PSEUDOEPHEDRINE 59590573895 No Longe r Active Wayne Harms PA Active MOBIC 15 MG ORAL TABLET 1 tablet by mouth daily in am with PPI 2 MELOXICAM 00011305239 No Longer Active Wayne Harms PA Acti ve HYDROCORTISONE 2.5 % EXTERNAL CREAM Apply three times a day to affected area HYDROCORTISONE 85797754122 No Longer Active Wayne Harms PA Active VITAMIN D3 1000 UNIT ORAL TABLET Take two daily CHOLECALCIFEROL 73330309548 No Longer Active Wayne Harms PA Active PROBIOTIC ORAL CAPSULE Take one daily PROBIOTIC PRODUCT 98492879648 No Longer Active Wayne Harms PA Active GREEN TEA SLIM ORAL TABLET Take one daily MIS NATURAL PRODUCTS 72939116892 No Longer Active Wayne Harms PA Active BENZONATATE 200 MG ORAL CAPSULE Take one capsule three times a d ay BENZONATATE 86112186506 No Longer Active Wayne Harms PA Act rancho ZITHROMAX Z-SANJANA 250 MG ORAL TABLET 2 today, then 1 daily for 4 d ays AZITHROMYCIN 43213889151 No Longer Active Wayne Harms PA Ac tive ZITHROMAX 250 MG ORAL TABLET 2 po today, then 1 po q days 2-5 20 31/03/18 AZITHROMYCIN 22132711335 No Longer Active Beth Turner THREAD SINGER Active OMEPRAZOLE 20 MG ORAL CAPSULE DELAYED RELEASE 1 tablet by mo [facility] daily OMEPRAZOLE 47577407272 Active Supriya Huston RMA Active ZITHROMAX Z-SANJANA 250 MG ORAL TABLET 2x1day,7n0eath 2014 AZITHROMYCIN 74628172276 No Longer Active Wayne Harms PA Active FISH OIL 1200 MG ORAL CAPSULE One daily prn OME GA-3 FATTY ACIDS 24814200379 No Longer Active Wayne Harms PA Active CEPHALEXIN 250 MG ORAL CAPSULE Take one tablet qid 201 05/25/29 CEPHALEXIN 30999173793 No Longer Active Wayne Harms PA Active VITAMIN D3 1000 UNIT ORAL TABLET 1qd CHOLEC ALCIFEROL 44176294761 No Longer Active Wayne Harms PA Active B-12 2000 MCG ORAL TABLET 1qd CYANOCOBALAMI N 67183482059 No Longer Active Wayne Harms PA Active ACIPHEX 20 MG ORAL TABLET DELAYED RELEASE 1qd 10/28 RABEPRAZOLE SODIUM 05555632023 No Longer Active Wayne Harms PA Active HYDROCORTISONE 2.5 % EXTERNAL CREAM apply 3-4 times a day to affected area HYDROCORTISONE 88541761688 No Longer Active Wayne Harms PA Active MUCINEX 600 MG ORAL TABLET EXTENDED RELEASE 12 HOUR 2qd GUAIFENESIN 20196177499 No Longer Active Wayne Harms PA Active TUSSIONEX PENNKINETIC ER 10-8 MG/5ML ORAL SUSPENSION E XTENDED RELEASE 5ml po q12hr PRN Cough HYDROCOD POLST-CHLORPHEN POLST 5 8418074694 No Longer Active Wayne Harms PA Active ZITHROMAX 250 MG ORAL TABLET 2 po today, then 1 po q days 2-5 20 26/06/21 AZITHROMYCIN 03366875346 No Longer Active Wayne Harms PA Ac tive CLARITIN 10 MG ORAL TABLET one tablet daily THEO ATADINE 96021358193 No Longer Active Wayne Harms PA Active FLAGYL 500 MG ORAL TABLET 1 tablet by mouth three times daily 20 28/05/03 METRONIDAZOLE 20131347636 No Longer Active Wayne Harms PA A ctive CHERATUSSIN AC 100-10 MG/5ML ORAL SYRUP one teaspoon qid. 9 GUAIFENESIN-CODEINE 00897242663 No Longer Active Wayne Harms PA Act rancho VITAMIN D 1000 UNIT ORAL TABLET 1qd CHOLECA LCIFEROL 07674032946 No Longer Active Wayne Harms PA Active CYMBALTA 60 MG ORAL CAPSULE DELAYED RELEASE PARTICLES 1 cap by mouth daily DULOXETINE HCL 36059086255 No Longer Active Wayne Harms PA Active AMOXICILLIN 500 MG ORAL CAPSULE 2 caps tid for 10days AMOXICILLIN 73828192513 No Longer Active Wayne Harms PA Active CALCIUM + D 600-200 MG-UNIT TABS Take one by mouth daily CALCIUM CARBONATE-VITAMIN D 47626713861 No Longer Active Wayne Harms PA Active CENTRUM SILVER ADULT 50+ ORAL TABLET 1qd 2013 MULTIPLE VITAMINS-MINERALS 38050429545 No Longer Active Wayne Harms PA Active VENLAFAXINE HCL 75 MG ORAL TABLET 1tid VE NLAFAXINE HCL 40281383185 No Longer Active Wayne Harms PA Active CLARITIN 10 MG ORAL TABLET 1 tablet by mouth daily as needed for allergies LORATADINE 09414681643 No Longer Active Wayne Harms PA Acti ve HYDROCORTISONE 2.5 % EXTERNAL CREAM Apply four times a day to af fected area HYDROCORTISONE 79391011028 No Longer Active Wayne Harms PA Active ZITHROMAX 250 MG ORAL TABLET 2 po today, then 1 po q days 2-5 20 26/02/30 AZITHROMYCIN 01464787023 No Longer Active Wayne Harms PA Ac tive ZITHROMAX 250 MG ORAL TABLET 2 po today, then 1 po q days 2-5 20 27/02/16 AZITHROMYCIN 18568637607 No Longer Active Wayne Harms PA Ac tive CYMBALTA 30 MG ORAL CAPSULE DELAYED RELEASE PARTICLES 3 caps daily DULOXETINE HCL 41162590608 No Longer Active Wayne Harms PA Active CYMBALTA 60 MG ORAL CAPSULE DELAYED RELEASE PARTICLES one tablet daily, takes 30mg. with 60mg. to make 90 mg. DULOXETINE HCL 90652852494 No Longer Active Wayne Harms PA Active CYMBALTA 30 MG ORAL CAPSULE DELAYED RELEASE PARTICLES 1 daily wi th 60mg DULOXETINE HCL 43358751038 No Longer Active Wayne Harms PA Active ZITHROMAX 250 MG ORAL TABLET 2 po today, then 1 po q days 2-5 20 26/12/21 AZITHROMYCIN 33123676502 No Longer Active Ismael YANG Active ALPRAZOLAM 0.25 MG ORAL TABLET 1-2 tablet by mouth up to three times daily as needed ALPRAZOLAM 90234455201 Active Shanelle Rivera RN Act rancho PREDNISONE 20 MG ORAL TABLET 3tab x 2days,2tab x 2days ,1tab x 2days,1/2tab x 2days PREDNISONE 96526432723 No Longer Active Wayne Vera jarvis PA Active PREMARIN 0.625 MG ORAL TABLET Take one by mouth daily ESTROGENS CONJUGATED 83594564189 No Longer Active Wayne Harms PA Active ZITHROMAX 250 MG ORAL TABLET 2 po today, then 1 po q days 2-5 20 26/06/19 AZITHROMYCIN 49236409007 No Longer Active Nereyda Lucke Activ e OMEGA-3 1000 MG ORAL CAPSULE 2qd OMEGA-3 FA TTY ACIDS 89816275081 No Longer Active Wayne Harms PA Active BENADRYL ITCH STOPPING 1-0.1 % EXTERNAL CREAM prn DIPHENHYDRAMINE- ZINC ACETATE 66555787585 No Longer Active Wayne Harms PA Active LOTRISONE 1-0.05 % EXTERNAL CREAM Apply bid CLOTRIMAZOLE-BETAMETHASONE 35044528731 No Longer Active Wayne Harms PA Active ZITHROMAX Z-SANJANA 250 MG ORAL TABLET take as directed 20 26/04/19 AZITHROMYCIN 37824575552 No Longer Active Wayne Harms PA Active NYSTATIN 484551 UNIT/GM EXTERNAL POWDER Apply to affected areas BID NYSTATIN 89172643613 No Longer Active Wayne Harms PA Acti ve BENADRYL 25 MG ORAL CAPSULE prn DIPHENHYDRAMINE HCL 58680100288 Active Wayne Harms PA Active LOTRISONE 1-0.05 % EXTERNAL CREAM apply twice a day 20 25/02/17 CLOTRIMAZOLE-BETAMETHASONE 37978543469 No Longer Active Wayne Harms PA Active HYDROCODONE-ACETAMINOPHEN 5-325 MG ORAL TABLET 1-2 every 4hr s prn pain HYDROCODONE-ACETAMINOPHEN 54989246846 No Longer Activ e Wayne Harms PA Active VICODIN 5-300 MG ORAL TABLET 1-2 tabs every 6hrs as needed for p ain HYDROCODONE-ACETAMINOPHEN 35521986100 No Longer Active Wayne Harms PA Active BENADRYL 25 MG ORAL CAPSULE 1prn DIPHENHYDRA MINE HCL 31677621369 No Longer Active Jillina Frazell INSTRUMENT LENS GRINDER Active ROBITUSSIN DM 100-10 MG/5ML ORAL SYRUP 2 teaspoons four times a day DEXTROMETHORPHAN-GUAIFENESIN 43307174825 No Longer Active Jillina Frazell INSTRUMENT LENS GRINDER Active ACIPHEX 20 MG ORAL TABLET DELAYED RELEASE Take one by mouth daily RABEPRAZOLE SODIUM 79542057864 No Longer Active Jillina Frazell INSTRUMENT LENS GRINDER Active TUMS 500 MG ORAL TABLET CHEWABLE prn SADIQ CIUM CARBONATE ANTACID 44140054931 No Longer Active Jillina Frazell INSTRUMENT LENS GRINDER Active PEPTO-BISMOL 524 MG/30ML ORAL SUSPENSION prn 02/26 BISMUTH SUBSALICYLATE 32843488237 No Longer Active Jillina Frazell INSTRUMENT LENS GRINDER Active BACTRIM DS 800-160 MG ORAL TABLET 1bid SULFAMETHOXAZOLE-TRIMETHOPRIM 06353916396 No Longer Active Beth Naff THREAD SINGER Active GAVISCON EXTRA RELIEF FORMULA CHEW prn A LUM HYDROXIDE-MAG CARBONATE CHEW 83608376834 Active Wayne Harms PA Active DIFLUCAN 150 MG ORAL TABLET 1stat FLUCONAZOL E 87125924753 No Longer Active Wayne Harms PA Active AUGMENTIN 875-125 MG ORAL TABLET 1 tab by mouth twice daily with food AMOXICILLIN-POT CLAVULANATE 13431716342 No Longer Act rancho Wayne Harms PA Active FLUTICASONE PROPIONATE 50 MCG/ACT NASAL SUSPENSION 1 t o 2 sprays each nostril twice a day FLUTICASONE PROPIONATE 55053670130 No Lo nger Active Wayne Harms PA Active HYDROCORTISONE 2.5 % EXTERNAL CREAM apply 2-4 times a day, a s directed, prn HYDROCORTISONE 21550812720 No Longer Active Wayne Harms PA Active ZITHROMAX Z-SANJANA 250 MG ORAL TABLET A ZITHROMYCIN 05221024809 No Longer Active Wayne Harms PA Active SIMVASTATIN 40 MG ORAL TABLET one tablet daily SIMVASTATIN 32622641673 No Longer Active Misty Yoo LPN Active LOVASTATIN 40 MG ORAL TABLET Take one by mouth daily 12/11 LOVASTATIN 38900702597 No Longer Active Misty Yoo THREAD SINGER Active PREDNISONE 20 MG ORAL TABLET 2 PO qd x 2d, 1 PO qd x 2d, 1/2 PO qd x 2d PREDNISONE 98557049538 No Longer Active Ismael silva PA Active ZITHROMAX 250 MG ORAL TABLET two tablets now and one daily x 4 d ays AZITHROMYCIN 33616423317 No Longer Active Misty Yoo THREAD SINGER Active ZOLPIDEM TARTRATE 10MG TABS (ZOLPIDEM TARTRATE) 1 at bedtime as needed Active Supriya Betzaida RMA Active CLOBETASOL PROPIONATE 0.05 % EXTERNAL CREAM apply as directed CLOBETASOL PROPIONATE 74597569026 No Longer Active Wayne Harms PA A ctive CYMBALTA 30 MG ORAL CAPSULE DELAYED RELEASE PARTICLES takes 90mg qod alt with 60mg DULOXETINE HCL 77810669332 No Longer Active Wayne Harm s PA Active ZITHROMAX 250 MG ORAL TABLET 2 po today, then 1 po q days 2-5 20 12/24/14 AZITHROMYCIN 44235765222 No Longer Active Wayne Harms PA Ac tive TRIAMCINOLONE ACETONIDE 0.1 % EXTERNAL CREAM apply qid TRIAMCINOLONE ACETONIDE 68644414864 No Longer Active Wayne Harms PA Active ALPRAZOLAM 0.25 MG ORAL TABLET 1 tab three times a day 201 02/23/14 ALPRAZOLAM 58618422894 No Longer Active Wayne Harms PA Active ZOLPIDEM TARTRATE 5 MG ORAL TABLET 1 at bedtime as needed ZOLPIDEM TARTRATE 28125118944 No Longer Active Beth Turner THREAD SINGER Active ALPRAZOLAM 0.25 MG ORAL TABLET 1 tab three times a day ALPRAZOLAM 0.25 MG ORAL TABLET 476992 ALPRAZOLAM Inactive TRIAMCINOLONE ACETONIDE 0.1 % EXTERNAL CREAM apply qid TRIAMCINOLONE ACETONIDE 0.1 % EXTERNAL CREAM 8211140 TRIAMCINOLONE A CETONIDE Inactive CYMBALTA 30 MG ORAL CAPSULE DELAYED RELEASE PARTICLES takes 90mg qod alt with 60mg CYMBALTA 30 MG ORAL CAPSULE DELAYED RELEA SE PARTICLES 738178 DULOXETINE HCL Inactive CLOBETASOL PROPIONATE 0.05 % EXTERNAL CREAM apply as directed CLOBETASOL PROPIONATE 0.05 % EXTERNAL CREAM 023586 CLOBETASOL PROPI KELVIN Inactive LOVASTATIN 40 MG ORAL TABLET Take one by mouth daily 2 LOVASTATIN 40 MG ORAL TABLET 931078 LOVASTATIN Inactive ZITHROMAX Z-SANJANA 250 MG ORAL TABLET 03/03 ZITHROMAX Z-SANJANA 250 MG ORAL TABLET 382618 AZITHROMYCIN Inactive HYDROCORTISONE 2.5 % EXTERNAL CREAM apply 2-4 times a day, a s directed, prn HYDROCORTISONE 2.5 % EXTERNAL CREAM 877739 HYDRO CORTISONE Inactive FLUTICASONE PROPIONATE 50 MCG/ACT NASAL SUSPENSION 1 t o 2 sprays each nostril twice a day FLUTICASONE PROPIONA TE 50 MCG/ACT NASAL SUSPENSION 8422325 FLUTICASONE PROPIONATE Inactive AUGMENTIN 875-125 MG ORAL TABLET 1 tab by mouth twice daily with food AUGMENTIN 875-125 MG ORAL TABLET AMOXICIL BLOSSOM-POT CLAVULANATE Inactive DIFLUCAN 150 MG ORAL TABLET 1stat DIFLUCAN 150 MG ORAL TABLET 748670 FLUCONAZOLE Inactive PEPTO-BISMOL 524 MG/30ML ORAL SUSPENSION prn PEPTO-BISMOL 524 MG/30ML ORAL SUSPENSION BISMUTH SUBSALICYLATE Inactive TUMS 500 MG ORAL TABLET CHEWABLE prn TUMS 500 MG ORAL TABLET CHEWABLE 703578 CALCIUM CARBONATE ANTACID Inactive ACIPHEX 20 MG ORAL TABLET DELAYED RELEASE Take one by mouth daily ACIPHEX 20 MG ORAL TABLET DELAYED RELEASE 687367 RABEPRAZOLE SODIUM Inactive ROBITUSSIN DM 100-10 MG/5ML [...] pain HYDROCODONE-ACETAMINOPHEN 5-325 MG ORAL TABLET 8 79263 HYDROCODONE-ACETAMINOPHEN Inactive LOTRISONE 1-0.05 % EXTERNAL CREAM apply twice a day 20 25/02/17 LOTRISONE 1- 0.05 % EXTERNAL CREAM CLOTRIMAZOLE-BETAMETHASONE Inactive NYSTATIN 535202 UNIT/GM EXTERNAL POWDER Apply to affected areas BID NYSTATIN 616660 UNIT/GM EXTERNAL POWDER 013542 NYSTATIN Inactive ZITHROMAX Z-SANJANA 250 MG ORAL TABLET take as directed 20 26/04/19 ZITHROMAX Z-SANJANA 250 MG ORAL TABLET 861345 AZITHROMYCIN Inact ranch[place] LOTRISONE 1-0.05 % EXTERNAL CREAM Apply bid LOTRISONE 1- 0.05 % EXTERNAL CREAM CLOTRIMAZOLE-BETAMETHASONE Inactive BENADRYL ITCH STOPPING 1-0.1 % EXTERNAL CREAM prn BENADRYL ITCH STOPPING 1-0.1 % EXTERNAL CREAM DIPHENHYDRAMINE-ZINC ACETATE Inactive OMEGA-3 1000 MG ORAL CAPSULE 2qd OMEGA-3 1000 MG ORAL CAPSULE 833652 OMEGA-3 FATTY ACIDS Inactive ZITHROMAX 250 MG ORAL TABLET 2 po today, then 1 po q days 2-5 20 26/06/19 ZITHROMAX 250 MG ORAL TABLET 927040 AZITHROMYCIN Mara ctive PREMARIN 0.625 MG ORAL TABLET Take one by mouth daily PREMARIN 0.625 MG ORAL TABLET ESTROGENS CONJUGATED Inactive PREDNISONE 20 MG ORAL TABLET 3tab x 2days,2tab x 2days ,1tab x 2days,1/2tab x 2days PREDNISONE 20 MG ORAL TABLET 485493 PREDNIS ONE Inactive CYMBALTA 30 MG ORAL CAPSULE DELAYED RELEASE PARTICLES 1 daily wi th 60mg CYMBALTA 30 MG ORAL CAPSULE DELAYED RELEASE PARTICLES 593798 DULOXETINE HCL Inactive CYMBALTA 60 MG ORAL CAPSULE DELAYED RELEASE PARTICLES one tablet daily, takes 30mg. with 60mg. to make 90 mg. CYMBALTA 60 MG ORAL CAPSULE DELAYED RELEASE PARTICLES 875267 DULOXETINE HCL Inacti ve CYMBALTA 30 MG ORAL CAPSULE DELAYED RELEASE PARTICLES 3 caps daily CYMBALTA 30 MG ORAL CAPSULE DELAYED RELEASE PARTICLES 308271 DULOXE ROSANNE HCL Inactive HYDROCORTISONE 2.5 % EXTERNAL CREAM Apply four times a day to af fected area HYDROCORTISONE 2.5 % EXTERNAL CREAM 869747 HYDROCORTISO NE Inactive CLARITIN 10 MG ORAL TABLET 1 tablet by mouth daily as needed for allergies CLARITIN 10 MG ORAL TABLET 604009 LORATADINE Inact ranch[place] VENLAFAXINE HCL 75 MG ORAL TABLET 1tid VENLAFAXINE HCL 75 MG ORAL TABLET 188430 VENLAFAXINE HCL Inactive CENTRUM SILVER ADULT 50+ ORAL TABLET 1qd 2013 CENTRUM SILVER ADULT 50+ ORAL TABLET MULTIPLE VITAMINS-MINERALS Inactive CALCIUM + D 600-200 MG-UNIT TABS Take one by mouth daily CALCIUM + D 600-200 MG-UNIT TABS CALCIUM CARBONATE-VITAMIN D Inactive AMOXICILLIN 500 MG ORAL CAPSULE 2 caps tid for 10days AMOXICILLIN 500 MG ORAL CAPSULE 544817 AMOXICILLIN Inactive CYMBALTA 60 MG ORAL CAPSULE DELAYED RELEASE PARTICLES 1 cap by mouth daily CYMBALTA 60 MG ORAL CAPSULE DELAYED RELE ASE PARTICLES 408867 DULOXETINE HCL Inactive VITAMIN D 1000 UNIT ORAL TABLET 1qd 4 VITAMIN D 1000 UNIT ORAL TABLET CHOLECALCIFEROL Inactive CHERATUSSIN AC 100-10 MG/5ML ORAL SYRUP one teaspoon qid. 9 CHERATUSSIN AC 100-10 MG/5ML ORAL SYRUP GUAIFENESIN-CODEINE Inactive FLAGYL 500 MG ORAL TABLET 1 tablet by mouth three times daily 20 28/05/03 FLAGYL 500 MG ORAL TABLET 679895 METRONIDAZOLE Inacti ve CLARITIN 10 MG ORAL TABLET one tablet daily CLARITIN 10 MG ORAL TABLET 005666 LORATADINE Inactive TUSSIONEX PENNKINETIC ER 10-8 MG/5ML [...] affected area HYDROCORTISONE 2.5 % EXTERNAL CREAM 804855 HYDRO CORTISONE Inactive ACIPHEX 20 MG ORAL TABLET DELAYED RELEASE 1qd ACIPHEX 20 MG ORAL TABLET DELAYED RELEASE 183840 RABEPRAZOLE SODIUM Inactive B-12 2000 MCG ORAL TABLET 1qd B-12 2000 MCG ORAL TABLET CYANOCOBALAMIN Inactive VITAMIN D3 1000 UNIT ORAL TABLET 1qd VITAMIN D3 1000 UNIT ORAL TABLET CHOLECALCIFEROL Inactive CEPHALEXIN 250 MG ORAL CAPSULE Take one tablet qid 201 05/25/29 CEPHALEXIN 250 MG ORAL CAPSULE 230687 CEPHALEXIN Inactive FISH OIL 1200 MG ORAL CAPSULE One daily prn FISH OIL 1200 MG ORAL CAPSULE OMEGA-3 FATTY ACIDS Inactive ZITHROMAX Z-SANJANA 250 MG ORAL TABLET 2x1day,7b0xamq 2014 ZITHROMAX Z-SANJANA 250 MG ORAL TABLET 504952 AZITHROMYCIN Inact [place] BENZONATATE 200 MG ORAL CAPSULE Take one capsule three times a d ay BENZONATATE 200 MG ORAL CAPSULE 395286 BENZONATATE Inactive GREEN TEA SLIM ORAL TABLET Take one daily GREEN TEA SLIM ORAL TABLET MISC NATURAL PRODUCTS Inactive PROBIOTIC ORAL CAPSULE Take one daily PROBIOTIC ORAL CAPSULE 9684135 PROBIOTIC PRODUCT Inactive VITAMIN D3 1000 UNIT ORAL TABLET Take two daily 05/05 VITAMIN D3 1000 UNIT ORAL TABLET CHOLECALCIFEROL Inactive HYDROCORTISONE 2.5 % EXTERNAL CREAM Apply three times a day to affected area HYDROCORTISONE 2.5 % EXTERNAL CREAM 378579 HYDRO CORTISONE Inactive MOBIC 15 MG ORAL TABLET 1 tablet by mouth daily in am with PPI 2 MOBIC 15 MG ORAL TABLET 414704 MELOXICAM Inactive CLARITIN-D 12 HOUR 5-120 MG ORAL TABLET EXTENDED RELEA SE 12 HOUR Take one tablet bid CLARITIN-D 12 HOUR 5 -120 MG ORAL TABLET EXTENDED RELEASE 12 HOUR LORATADINE-PSEUDOEPHEDRINE Inactive ACETAMINOPHEN 500 MG ORAL TABLET prn ACETAMINOPHEN 500 MG ORAL TABLET 713180 ACETAMINOPHEN Inactive CLARITIN-D 12 HOUR 5-120 MG [...] yeast 03/03 DIFLUCAN 150 MG ORAL TABLET 853839 FLUCONAZOLE Inactive DIFLUCAN 150 MG ORAL TABLET Take one tablet today and repeat in 72 hours DIFLUCAN 150 MG ORAL TABLET 540082 FLUCONAZOLE Inactive IBUPROFEN 200 MG ORAL TABLET Take 3 tablets every 6hrs IBUPROFEN 200 MG ORAL TABLET 057468 IBUPROFEN Inactive ZITHROMAX Z-SANJANA 250 MG ORAL TABLET Take 2 tablets toda y and 1 each day till gone ZITHROMAX Z-SANJANA 250 MG ORAL TABLET 691220 A ZITHROMYCIN Inactive PROAIR HFA 108 (90 [...] bowels 3 REGLAN 10 MG ORAL TABLET 242286 METOCLOPRAMIDE HCL Inactive PREDNISONE 20 MG ORAL TABLET Take 2 tablets by mouth d aily for 2 days then 1 tablet daily for 2 days. PREDNISONE 20 MG ORAL T ABLET 112709 PREDNISONE Inactive ZYRTEC ALLERGY 10 MG ORAL CAPSULE 1qd ZYRTEC ALLERGY 10 MG ORAL CAPSULE CETIRIZINE HCL Inactive ZITHROMAX 250 MG ORAL TABLET 2 po today, then 1 po q days 2-5 20 12/24/14 ZITHROMAX 250 MG ORAL TABLET 589455 AZITHROMYCIN Mara ctive ZITHROMAX 250 MG ORAL TABLET two tablets now and one daily x 4 d ays ZITHROMAX 250 MG ORAL TABLET 202893 AZITHROMYCIN Mara ctive PREDNISONE 20 MG ORAL TABLET 2 PO qd x 2d, 1 PO qd x 2d, 1/2 PO qd x 2d PREDNISONE 20 MG ORAL TABLET 268061 PREDNISONE Inactive SIMVASTATIN 40 MG ORAL TABLET one tablet daily SIMVASTATIN 40 MG ORAL TABLET 594247 SIMVASTATIN Inactive BACTRIM DS 800-160 MG ORAL TABLET 1bid BACTRIM DS 800-160 MG ORAL TABLET 660638 SULFAMETHOXAZOLE-TRIMETHOPRIM Inactive ZITHROMAX 250 MG ORAL TABLET 2 po today, then 1 po q days 2-5 20 26/12/21 ZITHROMAX 250 MG ORAL TABLET 901210 AZITHROMYCIN Mara ctive ZITHROMAX 250 MG ORAL TABLET 2 po today, then 1 po q days 2-5 20 27/02/16 ZITHROMAX 250 MG ORAL TABLET 808861 AZITHROMYCIN Mara ctive ZITHROMAX 250 MG ORAL TABLET 2 po today, then 1 po q days 2-5 20 26/02/30 ZITHROMAX 250 MG ORAL TABLET 864111 AZITHROMYCIN Mara ctive ZITHROMAX 250 MG ORAL TABLET 2 po today, then 1 po q days 2-5 20 26/06/21 ZITHROMAX 250 MG ORAL TABLET 019528 AZITHROMYCIN Mara ctive ZITHROMAX 250 MG ORAL TABLET 2 po today, then 1 po q days 2-5 20 31/03/18 ZITHROMAX 250 MG ORAL TABLET 264239 AZITHROMYCIN [place] ctive ZITHROMAX Z-SANJANA 250 MG ORAL TABLET 2 today, then 1 daily for 4 d ays ZITHROMAX Z-SANJANA 250 MG ORAL TABLET 212205 AZITHROMYCIN Inactive AMOXICILLIN 500 MG ORAL CAPSULE Take 1 capsule by mout h three times a day X 10 days AMOXICILLIN 500 MG ORAL CAPSULE 393689 AMOX ICILLIN Inactive AMOXICILLIN-POT CLAVULANATE 875-125 MG ORAL TABLET 1 pill by mouth twice daily AMOXICILLIN-POT CLAVULANATE 875-125 MG ORAL TABL ET 479817 AMOXICILLIN-POT CLAVULANATE Inactive AUGMENTIN 875-125 MG ORAL TABLET Take one tablet twice a day with food AUGMENTIN 875-125 MG ORAL TABLET AMOXICILLIN-POT CLAVULANATE Inactive POLYTRIM 73498-0.1 UNIT/ML-% OPHTHALMIC SOLUTION 1 gtt to affected eye q3h x 7 days POLYTRIM 16576-7.1 UNIT/ML-% OPH THALMIC SOLUTION 190611 POLYMYXIN B-TRIMETHOPRIM Inactive MACROBID 100 MG ORAL CAPSULE 1 cap by mouth twice daily MACROBID 100 MG ORAL CAPSULE 4608255 NITROFURANTOIN MONOHYD MACRO In active Advance Directives [...] Fluarix, Agriflu(>= 18 yo)) Fluzone (>=3 yrs.) [[id number]] Influenza, seasonal, injec table Seasonal influenza vaccine, injectable, containing preservative, for > 3 years old (Afluria, FluLaval, Fluzone, Fluvirin, Fluarix, Agriflu(>= 18 yo)) Fluzone (>3 yrs.) [[id number]] Influenza, seasonal, inject able Seasonal influenza vaccine, injectable, containing preservative, for > 3 years old (Afluria, FluLaval, Fluzone, Fluvirin, Fluarix, Agriflu(>= 18 yo)) Fluarix (>3 yrs.) [[id number]] Influenza, seasonal, inject able Vital Signs Date [...] Magnesium - Chemistry sodium, serum 138 mmol/L 365-248 7589/09/02 carbon dioxide, venous blood 28.0 mmol/L 21.0-32 [...] 0.20 mg/dL 0.00-1.00 cholesterol, serum 228 mg/dL [phone]/09/02 triglyceride, serum, fasting 236 mg/dL 30-200 HDL [...] 0.36-3.74 Encounters Code Encounter Date Provider Facility CPT-19696 [id number] Vst-Est Level III 17:07:11 CDT Jenny Yang APRN [facility] CPT-09917 [id number] Vst-Est Level III 17:51:44 DATA DELIVERABLES MANAGER [facility] CPT-75325 Level 3 Est. Patient 11:09:39 CDT Viviana Rubio [facility]-53963 [id number]-Ahs Vst-Est Level IV 09:14:31 CDT Conchis Yang [facility] [place] CPT-43700 [id number] Vst-Est Level III 22:05:50 CDT Jenny Yang [facility] [place] CPT-24895 Level 3 Est. Patient 15:00:02 DATA DELIVERABLES MANAGER Will Avi jarquin [facility] CPT-67557 Level 2 Est. Patient 13:46:20 CDT Ashley Meraz [facility] [place] CPT-56931 Level 2 Est. Patient 13:45:36 CDT Ashley Meraz [facility] [place] CPT-80191 Level 3 Est. Patient 15:52:07 CDT Ashley Kt [facility] [place] CPT-32830 Level 3 Est. Patient 08:20:37 CDT Ashley Yoелена [facility] [place] CPT-23176 Level 3 Est. Patient 15:06:41 CDT Derrick donaldson MD [facility] CPT-53984 Level 3 Est. Patient 11:13:21 DATA DELIVERABLES MANAGER Derrick donaldson MD [facility] CPT-09051 Level 3 Est. Patient 12:54:25 DATA DELIVERABLES MANAGER Ashley peacock [facility] [place] CPT-05934 Level 3 Est. Patient 23:34:49 DATA DELIVERABLES MANAGER Ashley peacock [facility] [place] CPT-88612 Level 3 Est. Patient 16:37:09 DATA DELIVERABLES MANAGER Ashley peacock [facility] [place] CPT-25437 Level 3 Est. Patient 11:59:30 DATA DELIVERABLES MANAGER Ashley Meraz [facility] [place] CPT-39486 Level 4 Est. Patient 07:40:13 CDT Wayne delatorre [facility] [place] CPT-92443 Level 4 Est. Patient 08:06:18 CDT [facility]-15780 Level 3 Est. Patient 11:14:45 CDT Wayne delatorre [facility] [place] CPT-50156 Level 3 Est. Patient 10:14:55 CDT Wayne delatorre [facility] CPT-81698 Level 4 Est. Patient 15:23:47 CDT [facility] CPT-00325 Level 3 Est. Patient 07:50:51 DATA DELIVERABLES MANAGER Wayne delatorre [facility] CPT-19376 Level 3 Est. Patient 14:47:52 CDT [facility] CPT-23477 Level 3 Est. Patient 11:28:46 CDT Wayne delatorre [facility] CPT-64167 Level 4 Est. Patient 14:48:43 CDT [facility]ator[facility] CPT-44842 Level 3 Est. Patient 14:10:18 DATA DELIVERABLES MANAGER Wayne delatorre [facility] [place] [facility] CPT-52892 Level 3 Est. Patient 16:44:33 DATA DELIVERABLES MANAGER [facility] CPT-00297 Level 4 Est. Patient 08:22:34 DATA DELIVERABLES MANAGER [facility]ator[facility] CPT-03297 Level 4 Est. Patient 07:10:30 CDT [facility] CPT-29862 Level 3 Est. Patient 14:50:20 DATA DELIVERABLES MANAGER Wayne delatorre [facility] [place] [facility] CPT-11961 Level 3 Est. Patient 09:46:08 DATA DELIVERABLES MANAGER Zuleika cha APRN [facility] [place] [facility] CPT-72687 Level 4 Est. Patient 07:56:24 DATA DELIVERABLES MANAGER Wayne delatorre [facility] CPT-44641 Level 3 Est. Patient 12:13:53 CDT Ismael Denton [facility] CPT-42189 Level 4 Est. Patient 12:28:51 DATA DELIVERABLES MANAGER [facility] CPT-12980 Level 3 Est. Patient 15:23:42 DATA DELIVERABLES MANAGER Wayne [facility]ator[facility] CPT-95858 Level 3 Est. Patient 06:34:33 DATA DELIVERABLES MANAGER [facility] Procedures Code Procedure Name Date Entry Date Standard Desc ription CPT-61080 Allergy Admin 2 17:02:53 CDT CPT-36541 Allergy Admin 2 16:32:35 CDT CPT-68022 Allergy Admin 2 16:26:27 CDT CPT-J3420 Vitamin B12 1000mcg (Cyanocobalamin) 16:32:13 CDT CPT-53156 Abx/Therapy Injection 16:32:13 CDT CPT-67711 Allergy Admin 2 16:32:12 CDT CPT-26576 Allergy Admin 2 16:05:03 CDT CPT-03617 Allergy Admin 2 16:35:15 CDT CPT-02068 Allergy Admin 2 16:20:41 CDT CPT-98770 Allergy Admin 2 11:25:21 CDT CPT-08154 Allergy Admin 2 15:46:12 CDT CPT-IO3376E (4274F) Influenza immunization administe red or previously received 17:51:44 DATA DELIVERABLES MANAGER CPT-67759 Spec Collection and Handling Fee 10:45:[address] [id number]-[id number] (4274F) Influenza immunization administe red or previously received 10:20:17 CDT CPT-82891 Prv Med Est Pt 40-64yrs 16:26:57 CDT CPT-42867 Venipuncture Draw Fee 11:08:31 CDT CPT-04223 Magnesium - LAB USE ONLY 11:08:31 CDT 10/15 CPT-77945 TSH - LAB USE ONLY 11:08:31 CDT CPT-84962 Lipid - LAB USE ONLY 11:08:30 CDT 2 CPT-07488 CMP - LAB USE ONLY 11:08:30 CDT CPT-18437 CBC - LAB USE ONLY 11:08:30 CDT CPT-97378 Spec Collection and Handling Fee 16:14:51 C DT CPT-34079 UA w micro - LAB USE ONLY 16:14:51 CDT 2018 CPT-55832 Prv Med Est Pt 40-64yrs 08:34:49 CDT 10/01 CPT-01200 Sed Rate - LAB USE ONLY 10:50:49 CDT 10/02 CPT-78104 TSH - LAB USE ONLY 10:50:49 CDT CPT-87602 Lipid - LAB USE ONLY 10:50:49 CDT 0 CPT-80341 Magnesium - LAB USE ONLY 10:50:49 CDT 10/02 CPT-90977 CMP - LAB USE ONLY 10:50:49 CDT CPT-46202 CBC - LAB USE ONLY 10:50:49 CDT CPT-01246 Venipuncture Draw Fee 10:50:49 CDT CPT-02118 IV Hydration < or = 1 hr 22:05:50 CDT 04/16 CPT-J7030 Normal Saline 1000 mL 22:05:50 CDT CPT-67607 Abx/Therapy Injection 16:31:51 DATA DELIVERABLES MANAGER CPT-J2950 Phenergan 25 mg 16:31:51 DATA DELIVERABLES MANAGER CPT-16467 Abx/Therapy Injection 16:39:40 CDT CPT-54690 First Vx - Ix admin via ID I M or jet injects without counseling by physician 16:39:39 CDT CPT-42634 Prv Med Est Pt 40-64yrs 16:33:10 CDT 11/10 CPT-JTINJ Asp/Joint Injection 16:13:36 CDT CPT-87891 Allergy Admin 2 16:54:52 CDT CPT-34293 Allergy Admin 2 16:46:15 CDT CPT-22750 Allergy Admin 2 11:29:09 CDT CPT-32625 Allergy Admin 2 17:05:15 CDT CPT-96005 Allergy Admin 2 12:31:51 CDT CPT-06626 Allergy Admin 2 15:40:56 CDT CPT-22286 CBC - LAB USE ONLY 09:49:24 CDT CPT-58787 CMP - LAB USE ONLY 09:49:24 CDT CPT-92857 Lipid - LAB USE ONLY 09:49:24 CDT 8 CPT-16493 Venipuncture Draw Fee 09:49:24 CDT CPT-20338 Allergy Admin 2 10:46:11 CDT CPT-JTINJ Asp/Joint Injection 09:52:58 CDT CPT-54227 Skin tag rem 1-15 13:46:20 CDT CPT-59911 Knee, right, 3V - XRAY USE ONLY 13:07:09 CD T CPT-84714 Allergy Admin 2 11:56:38 CDT CPT-12304 Allergy Admin 2 12:00:55 CDT CPT-87392 Allergy Admin 2 16:42:13 CDT CPT-25896 Allergy Admin 2 16:27:55 T CPT-78836 Allergy Admin 2 13:24:26 CDT CPT-37068 Allergy Admin 2 17:17:57 DATA DELIVERABLES MANAGER CPT-43079 Allergy Admin 2 16:23:22 [facility] CPT-07035 Allergy Admin 2 16:26:55 [facility] CPT-78696 Allergy Admin 2 16:32:33 [facility] CPT-56839 Allergy Admin 2 17:43:40 [facility] CPT-19896 Allergy Admin 2 16:26:07 DATA DELIVERABLES MANAGER CPT-39500 Allergy Admin 2 12:31:50 DATA DELIVERABLES MANAGER CPT-43619 Allergy Admin 2 16:40:38 DATA DELIVERABLES MANAGER CPT-48912 Allergy Admin 2 17:07:36 CDT CPT-G0008 Administration of Influenza Virus Vaccine 17:01:01 CDT CPT-10809 First Vx - Ix admin via ID I M or jet injects without counseling by physician 17:01:01 CDT CPT-43567 Allergy Admin 2 12:06:54 CDT CPT-88075 Allergy Admin 2 17:04:46 CDT CPT-81114 Allergy Admin 2 16:34:48 CDT CPT-26044 Allergy Admin 2 17:04:51 CDT CPT-71461 Allergy Admin 2 16:25:14 CDT CPT-36163 Allergy Admin 2 10:52:02 CDT CPT-66789 Allergy Admin 2 11:45:31 CDT CPT-58932 Allergy Admin 2 12:02:20 CDT CPT-75664 Allergy Admin 2 15:47:29 CDT CPT-16341 Allergy Admin 2 13:25:44 CDT CPT-05383 Allergy Admin 2 10:51:13 CDT CPT-79387 CBC - LAB USE ONLY 10:44:39 CDT CPT-20012 CMP - LAB USE ONLY 10:44:39 CDT CPT-38892 Lipid - LAB USE ONLY 10:44:39 CDT 9 CPT-30323 Venipuncture Draw Fee 10:44:38 CDT CPT-38740 Allergy Admin 2 12:25:22 CDT CPT-99550 Allergy Admin 2 12:41:34 CDT CPT-05736 Allergy Admin 2 15:29:46 CDT CPT-55191 Allergy Admin 2 14:46:53 CDT CPT-00400 Allergy Admin 2 14:16:16 CDT CPT-20795 Allergy Admin 2 16:55:26 CDT CPT-03738 Allergy Admin 2 10:12:02 T CPT-23362 Allergy Admin 2 14:53:56 T CPT-10019 Allergy Admin 2 17:01:54 T CPT-82782 Allergy Admin 2 09:36:02 T CPT-45098 Allergy Admin 2 16:53:26 [facility] CPT-51544 Allergy Admin 2 16:59:41 [facility] CPT-55767 Allergy Admin 2 16:36:44 [facility] CPT-76892 Allergy Admin 2 16:17:16 [facility] CPT-11331 Allergy Admin 2 17:08:10 [facility] CPT-43104 Allergy Admin 2 12:16:08 [facility] CPT-22100 Allergy Admin 2 16:47:30 [facility] CPT-47870 Allergy Admin 2 16:59:44 [facility] CPT-64535 Allergy Admin 2 12:48:53 [facility] CPT-21363 Allergy Admin 2 10:19:48 [facility] CPT-31828 Allergy Admin 2 12:40:17 [facility] CPT-48403 Abx/Therapy Injection 17:21:59 DATA DELIVERABLES MANAGER CPT-12648 First Vx - Ix admin via ID I M or jet injects without counseling by physician 17:21:57 DATA DELIVERABLES MANAGER CPT-33016 Allergy Admin 2 17:20:12 DATA DELIVERABLES MANAGER CPT-20425 Allergy Admin 2 11:12:50 DATA DELIVERABLES MANAGER CPT-88048 Allergy Admin 2 17:02:39 CDT CPT-29581 BMP - LAB USE ONLY 10:33:02 CDT CPT-00845 CBC - LAB USE ONLY 10:33:02 CDT CPT-46031 Venipuncture Draw Fee 10:33:02 CDT CPT-65907 Abx/Therapy Injection 12:29:08 CDT CPT-51393 Allergy Admin 2 10:39:48 CDT CPT-47415 Allergy Admin 2 10:55:47 CDT CPT-PV Prev. Care Visit 10:10:00 CDT CPT-95718 Allergy Admin 2 11:31:20 CDT CPT-14074 Allergy Admin 2 16:53:45 CDT CPT-91857 Allergy Admin 2 16:36:42 CDT CPT-28822 Allergy Admin 2 16:30:19 CDT CPT-81499 Allergy Admin 2 15:39:35 CDT CPT-48678 Allergy Admin 2 17:51:32 CDT CPT-11940 Allergy Admin 2 11:50:50 CDT CPT-PV Prev. Care Visit 14:09:05 CDT CPT-17141 Allergy Admin 2 13:37:39 CDT CPT-86511 Abx/Therapy Injection 12:17:43 CDT CPT-10384 Venipuncture Draw Fee 10:39:55 CDT CPT-17764 Allergy Admin 2 12:04:53 CDT CPT-13631 Allergy Admin 2 10:04:39 CDT CPT-50765 Allergy Admin 2 12:15:35 CDT CPT-86776 Allergy Admin 2 17:04:36 CDT CPT-86790 Allergy Admin 2 16:25:49 CDT CPT-66455 Allergy Admin 2 17:30:06 CDT CPT-51991 Allergy Admin 2 10:11:48 CDT CPT-02678 Allergy Admin 2 17:06:13 CDT CPT-02648 Abx/Therapy Injection 12:23:07 CDT CPT-J0702 Celestone 12 mg (Betamethasone) 12:23:07 CD T CPT-06461 Venipuncture Draw Fee 10:26:42 CDT CPT-57124 Allergy Admin 2 12:10:01 CDT CPT-81276 Allergy Admin 2 15:13:57 DATA DELIVERABLES MANAGER CPT-00426 Allergy Admin 2 16:55:22 DATA DELIVERABLES MANAGER CPT-00305 Allergy Admin 2 10:13:46 DATA DELIVERABLES MANAGER CPT-66701 Venipuncture Draw Fee 10:06:08 DATA DELIVERABLES MANAGER CPT-50526 Allergy Admin 2 16:15:41 DATA DELIVERABLES MANAGER CPT-33352 Allergy Admin 2 16:40:21 DATA DELIVERABLES MANAGER CPT-62463 Allergy Admin 2 16:31:48 DATA DELIVERABLES MANAGER CPT-99513 Allergy Admin 2 16:38:26 DATA DELIVERABLES MANAGER CPT-33489 Allergy Admin 2 16:40:08 DATA DELIVERABLES MANAGER CPT-51114 Allergy Admin 2 08:34:27 DATA DELIVERABLES MANAGER CPT-57481 Allergy Admin 2 14:27:45 DATA DELIVERABLES MANAGER CPT-83878 Destruction bgn lsn up to 14 09:41:27 DATA DELIVERABLES MANAGER 2 CPT-02529 Allergy Admin 2 17:45:17 DATA DELIVERABLES MANAGER CPT-35017 Allergy Admin 2 14:59:03 DATA DELIVERABLES MANAGER CPT-75004 Allergy Admin 2 12:49:42 CDT CPT-69033 Administration single or combination vac cine inc oral 15:01:57 CDT CPT-85182 Fluzone Quadrivalent Intramuscular Suspe nsion 0.5 ML 15:01:57 CDT CPT-05514 Allergy Admin 2 15:07:08 CDT CPT-42178 Allergy Admin 2 15:39:01 CDT CPT-48563 Allergy Admin 2 17:40:11 CDT CPT-00904 Allergy Admin 2 16:07:08 CDT CPT-78422 Allergy Admin 2 16:08:07 CDT CPT-30519 Venipuncture Draw Fee 09:34:29 CDT CPT-90935 Allergy Admin 2 16:27:43 CDT CPT-89692 Allergy Admin 2 15:53:10 CDT CPT-01725 Allergy Admin 2 15:42:29 CDT CPT-69420 Allergy Admin 2 11:26:14 CDT CPT-81894 Allergy Admin 2 10:36:24 CDT CPT-92475 Allergy Admin 2 16:53:37 CDT CPT-70881 Allergy Admin 2 11:21:44 CDT CPT-47725 Allergy Admin 2 10:50:40 CDT CPT-89788 Allergy Admin 2 11:19:11 CDT CPT-84030 Venipuncture Draw Fee 11:12:25 CDT CPT-17759 Allergy Admin 2 11:14:51 CDT CPT-34211 Allergy Admin 2 16:53:11 CDT CPT-41664 Allergy Admin 2 11:45:56 CDT CPT-68780 Allergy Admin 2 12:51:39 CDT CPT-89148 Allergy Admin 2 12:08:56 CDT CPT-45557 Allergy Admin 2 15:29:45 CDT CPT-48489 Allergy Admin 2 16:34:01 CDT CPT-10803 Allergy Admin 2 16:36:46 CDT CPT-56116 Allergy Admin 2 15:19:16 CDT CPT-55888 Allergy Admin 2 16:13:25 CDT CPT-06125 Allergy Admin 2 17:06:17 CDT CPT-30670 Allergy Admin 2 10:42:10 DATA DELIVERABLES MANAGER CPT-23282 Allergy Admin 2 17:33:16 DATA DELIVERABLES MANAGER CPT-12457 Allergy Admin 2 10:53:30 DATA DELIVERABLES MANAGER CPT-54472 Allergy Admin 2 14:18:24 DATA DELIVERABLES MANAGER CPT-01997 Allergy Admin 2 10:18:29 DATA DELIVERABLES MANAGER CPT-13364 Allergy Admin 2 12:57:40 DATA DELIVERABLES MANAGER CPT-27250 Allergy Admin 2 16:53:33 DATA DELIVERABLES MANAGER CPT-36369 Allergy Admin 2 12:43:00 DATA DELIVERABLES MANAGER CPT-34966 Allergy Admin 2 13:14:09 DATA DELIVERABLES MANAGER CPT-61821 Pneumovax 23 Injection Injectable 25 MCG /0.5ML 09:51:29 DATA DELIVERABLES MANAGER CPT-G0009 Administration of Pneumococcal Vaccine 09:51:29 DATA DELIVERABLES MANAGER CPT-86764 Influenza split virus > age 3 09:51:29 DATA DELIVERABLES MANAGER CPT-G0008 Administration of Influenza Virus Vaccine 02/23 09:51:29 DATA DELIVERABLES MANAGER CPT-73698 Venipuncture Draw Fee 10:31:06 CDT CPT-J0702 Celestone 12 mg (Betamethasone) 11:34:17 CD T CPT-89468 Abx/Therapy Injection 11:34:17 CDT CPT-17521 Chest 2V Frontal and Lat 11:31:47 CDT 07/04 CPT-92060 Venipuncture Draw Fee 11:31:47 CDT CPT-12530 Allergy Admin 2 14:31:05 CDT CPT-89679 EKG Trac and Interp 08:42:32 CDT CPT-81868 Chest 2V Frontal and Lat 08:42:32 CDT 05/28 CPT-77196 Venipuncture Draw Fee 08:39:02 CDT CPT-54189 Allergy Admin 2 16:59:09 CDT CPT-10875 Allergy Admin 2 17:06:11 CDT CPT-13493 Allergy Admin 2 16:04:36 CDT CPT-22492 Venipuncture Draw Fee 16:32:44 DATA DELIVERABLES MANAGER CPT-04725 Venipuncture Draw Fee 10:54:37 DATA DELIVERABLES MANAGER CPT-36231 Allergy Admin 2 14:53:55 DATA DELIVERABLES MANAGER CPT-32905 Allergy Admin 2 10:23:58 DATA DELIVERABLES MANAGER CPT-76977 First Vx Component - Ix admi n via ID IM or jet inj without physician counseling 15:34:26 DATA DELIVERABLES MANAGER CPT-36833 Fluzone (>=3 yrs.) 15:34:26 DATA DELIVERABLES MANAGER CPT-48536 Allergy Admin 2 15:56:02 DATA DELIVERABLES MANAGER CPT-88607 Allergy Admin 2 11:08:58 DATA DELIVERABLES MANAGER CPT-60897 Allergy Admin 2 10:51:36 DATA DELIVERABLES MANAGER CPT-03708 Allergy Admin 2 15:38:19 DATA DELIVERABLES MANAGER CPT-68637 Allergy Admin 2 15:12:46 CDT CPT-24230 Allergy Admin 2 10:28:50 CDT CPT-14514 Allergy Admin 2 16:35:33 CDT CPT-20439 Allergy Admin 2 10:14:18 CDT CPT-54654 Abx/Therapy Injection 09:06:45 CDT CPT-J0702 Celestone 6 mg (Betamethasone) 09:06:45 CDT CPT-40207 Allergy Admin 2 15:51:15 CDT CPT-36842 Allergy Admin 2 10:40:16 CDT CPT-40162 Allergy Admin 2 16:35:55 CDT CPT-31208 Allergy Admin 2 13:12:52 CDT CPT-04201 Allergy Admin 2 16:06:50 CDT CPT-87193 Allergy Admin 2 11:04:24 CDT CPT-31895 Allergy Admin 2 10:44:50 CDT CPT-19212 Allergy Admin 2 15:13:40 CDT CPT-71249 Allergy Admin 2 15:00:03 CDT CPT-48537 Allergy Admin 2 10:37:38 CDT CPT-84028 Venipuncture Draw Fee 09:16:43 DATA DELIVERABLES MANAGER CPT-45276 Allergy Admin 2 11:15:59 DATA DELIVERABLES MANAGER CPT-53552 Postop F/U Visit 10:10:52 DATA DELIVERABLES MANAGER CPT-89723 Allergy Admin 2 13:05:05 DATA DELIVERABLES MANAGER CPT-06501 Postop F/U Visit 19:45:16 DATA DELIVERABLES MANAGER CPT-03780 Allergy Admin 2 11:52:35 DATA DELIVERABLES MANAGER CPT-21893 Allergy Admin 2 10:49:22 DATA DELIVERABLES MANAGER CPT-OV Office Visit 13:55:55 DATA DELIVERABLES MANAGER CPT-38121 Allergy Admin 2 12:54:28 DATA DELIVERABLES MANAGER CPT-OV Office Visit 14:04:48 DATA DELIVERABLES MANAGER CPT-89384 Venipuncture Draw Fee 10:29:14 DATA DELIVERABLES MANAGER CPT-59349 Allergy Admin 2 11:24:43 DATA DELIVERABLES MANAGER CPT-44003 Knee 3V 11:00:12 DATA DELIVERABLES MANAGER CPT-47688 C-Spine Min 4V 11:00:12 DATA DELIVERABLES MANAGER CPT-66032 Allergy Admin 2 13:38:40 DATA DELIVERABLES MANAGER CPT-01664 Venipuncture Draw Fee 11:33:37 CDT CPT-68893 Allergy Admin 2 15:34:37 CDT CPT-21242 Allergy Admin 2 14:11:42 CDT CPT-53866 Administration single or combination vac cine inc oral 12:51:42 CDT CPT-36010 Influenza split virus > age 3 12:51:42 CDT CPT-95404 Allergy Admin 2 11:58:43 CDT CPT-49713 Allergy Admin 2 11:29:32 CDT CPT-96613 Allergy Admin 2 10:55:19 CDT CPT-53056 Allergy Admin 2 12:38:54 CDT CPT-86847 Allergy Admin 2 13:01:47 CDT CPT-28118 Abx/Therapy Injection 12:41:18 CDT CPT-J0702 Celestone 12 mg (Betamethasone) 12:41:18 CD T CPT-26208 Abx/Therapy Injection 16:33:09 CDT CPT-J0702 Celestone 12 mg (Betamethasone) 16:33:09 CD T CPT-26907 Allergy Admin 2 15:49:09 CDT CPT-69420 Allergy Admin 2 12:08:56 CDT CPT-13740 Allergy Admin 2 12:19:10 CDT CPT-96540 Allergy Admin 2 12:46:56 CDT CPT-91203 Allergy Admin 2 15:05:13 CDT CPT-56999 Allergy Admin 2 15:36:20 CDT CPT-53267 Allergy Admin 2 09:58:47 DATA DELIVERABLES MANAGER CPT-62414 Allergy Admin 2 12:18:06 DATA DELIVERABLES MANAGER CPT-61750 Allergy Admin 2 10:01:48 DATA DELIVERABLES MANAGER CPT-75055 Allergy Admin 2 12:17:53 DATA DELIVERABLES MANAGER CPT-70306 Allergy Admin 2 10:06:44 DATA DELIVERABLES MANAGER CPT-79881 Allergy Admin 2 10:13:04 DATA DELIVERABLES MANAGER CPT-94858 Venipuncture Draw Fee 10:09:07 DATA DELIVERABLES MANAGER CPT-69891 Bone Density 12:24:51 DATA DELIVERABLES MANAGER CPT-35771 Allergy Admin 2 11:29:41 DATA DELIVERABLES MANAGER CPT-05432 Allergy Admin 2 16:07:15 DATA DELIVERABLES MANAGER CPT-67816 Breathing Treatment 06:34:33 DATA DELIVERABLES MANAGER CPT-J0702 Celestone 12 mg (Betamethasone) 06:34:33 CS T CPT-56898 Abx/Therapy Injection 06:34:33 DATA DELIVERABLES MANAGER CPT-63744 Breathing Tx 11:07:33 DATA DELIVERABLES MANAGER CPT-38577 Allergy Admin 2 10:02:33 CDT CPT-58627 Allergy Admin 2 10:02:33 CDT CPT-37676 Allergy Admin 2 15:26:19 CDT CPT-03857 Administration single or combination vac cine inc oral 15:41:12 CDT CPT-31008 Influenza split virus > age 3 15:41:12 CDT
--- OUTSIDE RECORDS SUMMARY | 2020-09-15 14:41 | XMS REPORT | Clinical Summary ---
[...] Yang APRN Pruritus vulvae Active Ashley Yokum CIVIL ENGINEERING INTERN Screening mammogram V76.12 Resolved Ashley Yokum A PRN Other screening mammogram Sinusitis, acute maxillary 461.0 Inactive 7 Ashley Yokum CIVIL ENGINEERING INTERN Acute maxillary sinusitis Diarrhea, acute 787.91 Resolved Ashley Yokum CIVIL ENGINEERING INTERN Diarrhea Vaginal candidiasis 112.1 Resolved Ashley Yokum A PRN Candidiasis of vulva and vagina Accidental fall E888.9 Resolved Ashely Yokum CIVIL ENGINEERING INTERN Unspecified fall Contusion of left hand, initial encounter 923.20 Resol burak Ashley Yokum CIVIL ENGINEERING INTERN Contusion of hand(s) Contusion of right upper arm, subsequent encounter V58.89 201 09/14/21 Resolved Ashley Yokum CIVIL ENGINEERING INTERN Encounter for other specified a ftercare Ganglion cyst of left wrist 727.41 Active Derrick Younger MD Ganglion of joint Body Mass Index 31.0-31.9 Adult Resolved 2017 Ashley Yokum CIVIL ENGINEERING INTERN Body Mass Index 31.0-31.9, adult Plantar fasciitis 728.71 Active Ashley Yokum CIVIL ENGINEERING INTERN Plantar fascial fibromatosis Bronchitis, acute 466.0 Inactive Ashley Yokum APR N Acute bronchitis Body Mass Index 30.0-30.9 Adult Resolved 2017 Ashley Yokum CIVIL ENGINEERING INTERN Body Mass Index 30.0-30.9, adult Allergic conjunctivitis, bilateral 372.14 Resolved 2 Ashley Yokum CIVIL ENGINEERING INTERN Other chronic allergic conjunctivitis Skin tags; irritated/inflammed 701.9 Resolved 11/10 Ashley Yokum CIVIL ENGINEERING INTERN Unspecified hypertrophic and atrophic co nditions of skin Body Mass Index 31.0-31.9 Adult Refinement 2017 Ashley Yokum CIVIL ENGINEERING INTERN Body Mass Index 31.0-31.9, adult BMI 30-30.9 Refinement Ashley Yokum CIVIL ENGINEERING INTERN Body Mass Index 31.0-31.9, adult BMI 31-31.9 Refinement Ashley Yokum CIVIL ENGINEERING INTERN Body Mass Index 31.0-31.9, adult BMI 32-32.9 Refinement Lois Faith RN Body Mass Index 31.0-31.9, adult BMI 31-31.9 Active Viviana Rubio APRN-Julieta Body Mass Index 31.0-31.9, adult Major depression, recurrent, moderate 296.32 Active Ashley Yokum CIVIL ENGINEERING INTERN Major depressive disorder, recurrent epi sode, moderate degree Obesity Class I (BMI 30-34.9) Active Ashley Y okum CIVIL ENGINEERING INTERN Obesity, unspecified Nausea and vomiting 787.01 Resolved Ashley Yokum A PRN Nausea with vomiting Gastroenteritis acute 558.9 Resolved Ashley Yokum CIVIL ENGINEERING INTERN Other and unspecified noninfectious gastroenteritis and colitis GERD 530.81 Active Ashley Yokum CIVIL ENGINEERING INTERN E sophageal reflux Joint pain 719.40 Resolved Ashley Yokum CIVIL ENGINEERING INTERN Pain in joint, site unspecified Preventive health care, adult V70.0 Inactive / Ashley Yokum CIVIL ENGINEERING INTERN Routine general medical examination at a health care facility Blood in urine 599.70 Resolved Ashley Yokum CIVIL ENGINEERING INTERN Hematuria, unspecified Other abnormal findings in urine Resolved Ashley Yokum CIVIL ENGINEERING INTERN Urinary tract infection 599.0 Inactive Ashley Yok um CIVIL ENGINEERING INTERN Urinary tract infection, site not specified Chafing of skin 709.8 Resolved Ashley Yokum CIVIL ENGINEERING INTERN Other specified disorders of skin Preventive care V70.0 Active Supriya Huston A Routine general medical examination at a health care facility Gynecological examination, routine V72.3 Inactive 2 Ashley Yokum CIVIL ENGINEERING INTERN Special investigations and e xaminations - Gynecological examination Near syncope 780.2 Resolved Ashley Yokum CIVIL ENGINEERING INTERN Syncope and collapse Lightheadedness 780.4 Resolved Ashley Yokum CIVIL ENGINEERING INTERN Dizziness and giddiness Headache 784.0 Resolved Ashley Yokum CIVIL ENGINEERING INTERN Headache Sore throat 462 Resolved Ashley Yokum CIVIL ENGINEERING INTERN Acute pharyngitis Sinusitis - acute 461.9 Resolved Ashley Yokum APR N Acute sinusitis, unspecified Tired all the time 780.79 Resolved Ashley Yokum AP RN Other malaise and fatigue Fatigue 780.79 Inactive Ashley Yokum CIVIL ENGINEERING INTERN Other malaise and fatigue ABNORMAL WEIGHT GAIN ICD-783.1 Inactive Wayne paul PA OBESITY ICD-278.00 Inactive Wayne Moon PA NEED PROPHYLACTIC VACCINATION&INOCULATION FLU ICD-V04.81 Inactive Wayne Moon PA LONG-TERM (CURRENT) USE OF OTHER MEDICATIONS ICD-V58.69 6 Inactive Wayne Red PA NECK PAIN ICD-723.1 Inactive Wayne Moon PA 06/15 DEGENERATIVE DISC DISEASE, CERVICAL SPINE ICD-722.4 Inactive Wayne Moon PA SKIN TAG ICD-701.9 Inactive Wayne Moon PA CANDIDIASIS OF SKIN AND NAILS ICD-112.3 Inacti [...] PA High risk meds ICD-V58.69 Inactive Wayne Moon TREY Need for prophylactic vaccination and inoculation against in fluenza ICD-V04.81 Inactive Wayne Moon TREY Onychomycosis -dermatophytosis, nail ICD-110.1 Inactive Wayne Moon TREY Skin tags; irritated/inflammed ICD-701.9 Inact rancho Wayne Moon TREY Cough ICD-786.2 Inactive Wayne Red YANG Influenza like illness ICD-487.1 Inactive Wayne Moon TREY [facility] ICD-530.81 [facility]IVIL ENGINEERING INTERN GERD ICD-530.81 Inactive [facility] 03/22 CONTACT DERMATITIS DUE TO POISON ARANZA ICD-692.6 Inactive Lois Leos CIVIL ENGINEERING INTERN ALLERGIC RHINITIS ICD-477.9 Inactive Lois mendieta CIVIL ENGINEERING INTERN SINUSITIS ICD-473.9 [facility] CIVIL ENGINEERING INTERN 2012 WHEEZING ICD-786.07 Inactive [facility] 2012 UPPER RESPIRATORY INFECTION, ACUTE ICD-465.9 I nactive Lois Deric CIVIL ENGINEERING INTERN Chondromalacia patella, 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 Inacti deann Martines Runny nose ICD-472.0 Inactive Ashley Miryoni CIVIL ENGINEERING INTERN NEED FOR DESENSITIZATION TO ALLERGENS ICD-V07.1 8 Inactive Ashley Yang CIVIL ENGINEERING INTERN Sinusitis, chronic ICD-473.9 Inactive Ashley Yo yoni CIVIL ENGINEERING INTERN Acute maxillary sinusitis ICD-461.0 Inactive Ashley Yokum CIVIL ENGINEERING INTERN Preventive health care ICD-V70.0 Inactive Jenny mo Yokum CIVIL ENGINEERING INTERN Well women exam ICD-V72.3 Inactive Ashley Yokum CIVIL ENGINEERING INTERN Screening mammogram ICD-V76.12 Inactive Ashley Yokum CIVIL ENGINEERING INTERN Sinusitis, acute maxillary ICD-461.0 Inactive Ashley Yokum CIVIL ENGINEERING INTERN Diarrhea, acute ICD-787.91 Inactive Ashley Alejo m CIVIL ENGINEERING INTERN Vaginal candidiasis ICD-112.1 Inactive Ashley coppolaum CIVIL ENGINEERING INTERN Accidental fall ICD-E888.9 Inactive Ashley Merazu m CIVIL ENGINEERING INTERN Contusion of left hand, initial encounter ICD-923.20 Inactive Ashley Yokum CIVIL ENGINEERING INTERN Contusion of right upper arm, subsequent encounter ICD-V58.89 Inactive Ashley Yokum CIVIL ENGINEERING INTERN Body Mass Index 31.0-31.9 Adult Inac tive Ashley Yokum CIVIL ENGINEERING INTERN Bronchitis, acute ICD-466.0 Inactive Ashley Yok um CIVIL ENGINEERING INTERN Body Mass Index 30.0-30.9 Adult Inac tive Ashley Yokum CIVIL ENGINEERING INTERN Allergic conjunctivitis, bilateral ICD-372.14 I nactive Ashley Yokum CIVIL ENGINEERING INTERN Skin tags; irritated/inflammed ICD-701.9 Inact rancho Ashley Yokum CIVIL ENGINEERING INTERN Nausea and vomiting ICD-787.01 Inactive Ashley Yokum CIVIL ENGINEERING INTERN Gastroenteritis acute ICD-558.9 Inactive Conchis hi Yokum CIVIL ENGINEERING INTERN Joint pain ICD-719.40 Inactive Ashley Yokum APR N Preventive health care, adult ICD-V70.0 Inacti ve Ashley Yokum CIVIL ENGINEERING INTERN Blood in urine ICD-599.70 Inactive Ashley Yokum CIVIL ENGINEERING INTERN Other abnormal findings in urine [place] ctive Ashley Yokum CIVIL ENGINEERING INTERN Urinary tract infection ICD-599.0 Inactive K athi Yokum CIVIL ENGINEERING INTERN Chafing of skin ICD-709.8 Inactive Ashley Yokum CIVIL ENGINEERING INTERN Gynecological examination, routine ICD-V72.3 I nactive Ashley Yokum CIVIL ENGINEERING INTERN Near syncope ICD-780.2 Inactive Ashley Yokum AP RN Lightheadedness ICD-780.4 Inactive Ashley Yokum CIVIL ENGINEERING INTERN Headache ICD-784.0 Inactive Ashley Yokum CIVIL ENGINEERING INTERN 2020 Sore throat ICD-462 Inactive Ashley Yokum CIVIL ENGINEERING INTERN 02/17/17 Sinusitis - acute ICD-461.9 Inactive Ashley Yok um CIVIL ENGINEERING INTERN Tired all the time ICD-780.79 Inactive Ashley gutierrez CIVIL ENGINEERING INTERN Fatigue ICD-780.79 Inactive Ashley Yang CIVIL ENGINEERING INTERN 2020 Medication List Medication Instructions Start Date Stop Date Generic Name NDC Status Provider Patient Instruction PHENTERMINE HCL 37.5 MG ORAL TABLET 1/2 qAM, can incre ase to 1 qAM - take 30 min before or 2 hrs after breakfast PHENTERMINE HCL 07616 725686 Active Ashley Yang APRN Active MUCINEX D 60-600 MG ORAL TABLET EXTENDED RELEASE 12 HO UR 1 po BID PRN Congestion PSEUDOEPHEDRINE-GUAIFENESIN 35300537495 Active Ashley Yang APRN Active ZYRTEC ALLERGY 10 MG ORAL CAPSULE 1qd CETIR IZINE HCL 23060638634 No Longer Active Ashley Yang APRN Active HAIR, SKIN, NAILS VITAMINS take 1 tab by mouth 2x a day HAIR, SKIN, NAILS VITAMINS Active Ashley Yang CIVIL ENGINEERING INTERN Active CENTRUM SILVER FOR WOMEN OVER 50 1 tab by mouth by day. CENTRUM SILVER FOR WOMEN OVER 50 Active Ashley Yang APRN Active VITAMIN D3 1000 UNIT ORAL CAPSULE 1 po qd CH OLECALCIFEROL 88687844679 Active Ashley Yang CIVIL ENGINEERING INTERN Active PREDNISONE 20 MG ORAL TABLET Take 2 tablets by mouth d aily for 2 days then 1 tablet daily for 2 days. PREDNISONE 59675225399 No Longer Active Ashley Yang ELAINA Active MELOXICAM 15 MG ORAL TABLET TAKE 1 TABLET BY MOUTH IN THE MORNING 2 MELOXICAM 74279305664 Active ALRRY Murillo Active CLARITIN 10 MG ORAL TABLET 1 tablet by mouth daily as needed for allergies LORATADINE 83472558285 Active Supriya JUAREZ Active SIMVASTATIN 40 MG ORAL TABLET TAKE 1 TABLET BY MOUTH ONCE DA JAVON AT BEDTIME SIMVASTATIN 29624680303 Active LARRY Murillo Active QIUEAFK-YGGFAFKEO-VDJD ORAL TABLET MULT IPLE MINERALS 64184810442 Active Lois Faith, RN Active SERTRALINE HCL 100 MG ORAL TABLET Take 1 tablet by mouth once da javon SERTRALINE HCL 46689932940 Active Marcy Medina, RMA A ctive REGLAN 10 MG ORAL TABLET 1 po qid for bowels 3 METOCLOPRAMIDE HCL 54411569148 No Longer Active Ashley Yokum CIVIL ENGINEERING INTERN A ctive ADK [id number] UNIT-MCG ORAL CAPSULE 1 daily VITAMINS A D K 12924075190 Active Ashley Yokum CIVIL ENGINEERING INTERN Active B-12 2500 MCG ORAL TABLET 1 daily CYANOCOBAL HUNT 47640081789 No Longer Active Ashley Yokum CIVIL ENGINEERING INTERN Active ESTRADIOL 2 MG TABS Take 1 tablet by mouth once daily ESTRADIOL 91314396080 Active Shanelle Rivera RN Active MACROBID 100 MG ORAL CAPSULE 1 cap by mouth twice daily NITROFURANTOIN MONOHYD MACRO 58504470206 No Longer Active Ashley Yokum CIVIL ENGINEERING INTERN Active FISH OIL + D3 9478-4152 MG-UNIT ORAL CAPSULE 1 dailly 4 FISH OIL-CHOLECALCIFEROL 20732896680 Active Ashley Yokum CIVIL ENGINEERING INTERN Acti ve PROAIR HFA 108 (90 BASE) MCG/ACT INHALATION AEROSOL SO LUTION 2 puffs four times a day as needed ALBUTEROL SULFATE 52280596168 No Long er Active Ashley Yokum CIVIL ENGINEERING INTERN Active ZITHROMAX Z-SANJANA 250 MG ORAL TABLET Take 2 tablets toda y and 1 each day till gone AZITHROMYCIN 00625348952 No Longer Active Ashley Yokum CIVIL ENGINEERING INTERN Active POLYTRIM 02561-2.1 UNIT/ML-% OPHTHALMIC SOLUTION 1 gtt to affected eye q3h x 7 days POLYMYXIN B-TRIMETHOPRIM 58543222235 No Longer Active Ashley Yokum CIVIL ENGINEERING INTERN Active IBUPROFEN 200 MG ORAL TABLET Take 3 tablets every 6hrs 201 09/17/15 IBUPROFEN 11514921073 No Longer Active Ashley Yokum CIVIL ENGINEERING INTERN Active DIFLUCAN 150 MG ORAL TABLET Take one tablet today and repeat in 72 hours FLUCONAZOLE 51939642887 No Longer Active Derrick cardenas MD Active DIFLUCAN 150 MG ORAL TABLET 1 by mouth for yeast 03/03 FLUCONAZOLE 33092943859 No Longer Active Ashley Yang CIVIL ENGINEERING INTERN Active AUGMENTIN 875-125 MG ORAL TABLET Take one tablet twice a day with food AMOXICILLIN-POT CLAVULANATE 55521787044 No Longer Act rancho Ashley Yang CIVIL ENGINEERING INTERN Active CALCIUM 600 + D 600-200 MG-UNIT ORAL TABLET Take one daily CALCIUM CARB-CHOLECALCIFEROL 11457759169 No Longer Active Ashley Yang APRN Active FLONASE 50 MCG/ACT NASAL SUSPENSION 1 spray each nostr il twice daily for allergies and runny nose FLUTICASONE PROPIONATE 01659535159 No Longer Active Ashley Yang APRN Active CLARITIN-D 12 HOUR 5-120 MG ORAL TABLET EXTENDED RELEA SE 12 HOUR Take one tablet BID as needed for allergies LORATADINE-PSEUDOEP HEDRINE 17754485718 No Longer Active Beth Turner SPECIAL EDUCATION PROFESSOR Active AMOXICILLIN-POT CLAVULANATE 875-125 MG ORAL TABLET 1 pill by mouth twice daily AMOXICILLIN-POT CLAVULANATE 94940855214 No Longer Act rancho Ashley Yang CIVIL ENGINEERING INTERN Active AMOXICILLIN 500 MG ORAL CAPSULE Take 1 capsule by mout h three times a day X 10 days AMOXICILLIN 22427143566 No Longer Active Wayne H arms PA Active PROBIOTIC DAILY ORAL CAPSULE Take one daily PROBIO TIC PRODUCT 68537131679 Active Wayne Harms PA Active TYLENOL 325 MG ORAL TABLET Take 2 every 6hrs prn A CETAMINOPHEN 31630219196 Active Wayne Harms PA Active ACETAMINOPHEN 500 MG ORAL TABLET prn RICH TAMINOPHEN 02538035899 No Longer Active Wayne Harms PA Active CLARITIN-D 12 HOUR 5-120 MG ORAL TABLET EXTENDED RELEA SE 12 HOUR Take one tablet bid LORATADINE-PSEUDOEPHEDRINE 34106042970 No Longe r Active Wayne Harms PA Active MOBIC 15 MG ORAL TABLET 1 tablet by mouth daily in am with PPI 2 MELOXICAM 09578812068 No Longer Active Wayne Harms PA Acti ve HYDROCORTISONE 2.5 % EXTERNAL CREAM Apply three times a day to affected area HYDROCORTISONE 90504032471 No Longer Active Wayne Harms PA Active VITAMIN D3 1000 UNIT ORAL TABLET Take two daily CHOLECALCIFEROL 95685027013 No Longer Active Wayne Harms PA Active PROBIOTIC ORAL CAPSULE Take one daily PROBIOTIC PRODUCT 84527586716 No Longer Active Wayne Harms PA Active GREEN TEA SLIM ORAL TABLET Take one daily [facility] NATURAL PRODUCTS 56411548198 No Longer Active Wayne Harms PA Active BENZONATATE 200 MG ORAL CAPSULE Take one capsule three times a d ay BENZONATATE 81383048957 No Longer Active Wayne Harms PA Act rancho ZITHROMAX Z-SANJANA 250 MG ORAL TABLET 2 today, then 1 daily for 4 d ays AZITHROMYCIN 45993369274 No Longer Active Wayne Harms PA Ac tive ZITHROMAX 250 MG ORAL TABLET 2 po today, then 1 po q days 2-5 20 31/03/18 AZITHROMYCIN 60816633414 No Longer Active Beth Turner SPECIAL EDUCATION PROFESSOR Active OMEPRAZOLE 20 MG ORAL CAPSULE DELAYED RELEASE 1 tablet by mo [facility] daily OMEPRAZOLE 06145621191 Active Supriya Huston RMA Active ZITHROMAX Z-SANJANA 250 MG ORAL TABLET 2x1day,6f1fcth 2014 AZITHROMYCIN 43609306852 No Longer Active Wayne Harms PA Active FISH OIL 1200 MG ORAL CAPSULE One daily prn OME GA-3 FATTY ACIDS 49916492071 No Longer Active Wayne Harms PA Active CEPHALEXIN 250 MG ORAL CAPSULE Take one tablet qid 201 05/25/29 CEPHALEXIN 19133971873 No Longer Active Wayne Harms PA Active VITAMIN D3 1000 UNIT ORAL TABLET 1qd CHOLEC ALCIFEROL 62634825105 No Longer Active Wayne Harms PA Active B-12 2000 MCG ORAL TABLET 1qd CYANOCOBALAMI N 14751134884 No Longer Active Wayne Harms PA Active ACIPHEX 20 MG ORAL TABLET DELAYED RELEASE 1qd 10/28 RABEPRAZOLE SODIUM 88294460679 No Longer Active Wayne Harms PA Active HYDROCORTISONE 2.5 % EXTERNAL CREAM apply 3-4 times a day to affected area HYDROCORTISONE 82320639412 No Longer Active Wayne Harms PA Active MUCINEX 600 MG ORAL TABLET EXTENDED RELEASE 12 HOUR 2qd GUAIFENESIN 66034384644 No Longer Active Wayne Harms PA Active TUSSIONEX PENNKINETIC ER 10-8 MG/5ML ORAL SUSPENSION E XTENDED RELEASE 5ml po q12hr PRN Cough HYDROCOD POLST-CHLORPHEN POLST 5 9246126498 No Longer Active Wayne Harms PA Active ZITHROMAX 250 MG ORAL TABLET 2 po today, then 1 po q days 2-5 20 26/06/21 AZITHROMYCIN 78016930295 No Longer Active Wayne Harms PA Ac tive CLARITIN 10 MG ORAL TABLET one tablet daily THEO ATADINE 61622550130 No Longer Active Wayne Harms PA Active FLAGYL 500 MG ORAL TABLET 1 tablet by mouth three times daily 20 28/05/03 METRONIDAZOLE 16071770251 No Longer Active Wayne Harms PA A ctive CHERATUSSIN AC 100-10 MG/5ML ORAL SYRUP one teaspoon qid. 9 GUAIFENESIN-CODEINE 19319604089 No Longer Active Wayne Harms PA Act rancho VITAMIN D 1000 UNIT ORAL TABLET 1qd CHOLECA LCIFEROL 86920330937 No Longer Active Wayne Harms PA Active CYMBALTA 60 MG ORAL CAPSULE DELAYED RELEASE PARTICLES 1 cap by mouth daily DULOXETINE HCL 16515670858 No Longer Active Wayne Harms PA Active AMOXICILLIN 500 MG ORAL CAPSULE 2 caps tid for 10days AMOXICILLIN 34382793216 No Longer Active Wayne Harms PA Active CALCIUM + D 600-200 MG-UNIT TABS Take one by mouth daily CALCIUM CARBONATE-VITAMIN D 35426115764 No Longer Active Wayne Harms PA Active CENTRUM SILVER ADULT 50+ ORAL TABLET 1qd 2013 MULTIPLE VITAMINS-MINERALS 48635860605 No Longer Active Wayne Harms PA Active VENLAFAXINE HCL 75 MG ORAL TABLET 1tid VE NLAFAXINE HCL 05899217176 No Longer Active Wayne Harms PA Active CLARITIN 10 MG ORAL TABLET 1 tablet by mouth daily as needed for allergies LORATADINE 77519387503 No Longer Active Wayne Harms PA Acti ve HYDROCORTISONE 2.5 % EXTERNAL CREAM Apply four times a day to af fected area HYDROCORTISONE 49700462340 No Longer Active Wayne Harms PA Active ZITHROMAX 250 MG ORAL TABLET 2 po today, then 1 po q days 2-5 20 26/02/30 AZITHROMYCIN 48701904693 No Longer Active Wayne Harms PA Ac tive ZITHROMAX 250 MG ORAL TABLET 2 po today, then 1 po q days 2-5 20 27/02/16 AZITHROMYCIN 32633494862 No Longer Active Wayne Harms PA Ac tive CYMBALTA 30 MG ORAL CAPSULE DELAYED RELEASE PARTICLES 3 caps daily DULOXETINE HCL 55054716122 No Longer Active Wayne Harms PA Active CYMBALTA 60 MG ORAL CAPSULE DELAYED RELEASE PARTICLES one tablet daily, takes 30mg. with 60mg. to make 90 mg. DULOXETINE HCL 76861266061 No Longer Active Wayne Harms PA Active CYMBALTA 30 MG ORAL CAPSULE DELAYED RELEASE PARTICLES 1 daily wi th 60mg DULOXETINE HCL 58411345334 No Longer Active Wayne Harms PA Active ZITHROMAX 250 MG ORAL TABLET 2 po today, then 1 po q days 2-5 20 26/12/21 AZITHROMYCIN 31451670709 No Longer Active Ismael YANG Active ALPRAZOLAM 0.25 MG ORAL TABLET 1-2 tablet by mouth up to three times daily as needed ALPRAZOLAM 56812069852 Active Shanelle Rivera RN Act rancho PREDNISONE 20 MG ORAL TABLET 3tab x 2days,2tab x 2days ,1tab x 2days,1/2tab x 2days PREDNISONE 27872095536 No Longer Active Wayne Vera jarvis PA Active PREMARIN 0.625 MG ORAL TABLET Take one by mouth daily ESTROGENS CONJUGATED 52551305753 No Longer Active Wayne Harms PA Active ZITHROMAX 250 MG ORAL TABLET 2 po today, then 1 po q days 2-5 20 26/06/19 AZITHROMYCIN 21963841277 No Longer Active Nereyda Lucke Activ e OMEGA-3 1000 MG ORAL CAPSULE 2qd OMEGA-3 FA TTY ACIDS 96088093715 No Longer Active Wayne Harms PA Active BENADRYL ITCH STOPPING 1-0.1 % EXTERNAL CREAM prn DIPHENHYDRAMINE- ZINC ACETATE 50809901457 No Longer Active Wayne Harms PA Active LOTRISONE 1-0.05 % EXTERNAL CREAM Apply bid CLOTRIMAZOLE-BETAMETHASONE 14938072688 No Longer Active Wayne Harms PA Active ZITHROMAX Z-SANJANA 250 MG ORAL TABLET take as directed 26/04/19 AZITHROMYCIN 35723814472 No Longer Active Wayne Harms PA Active NYSTATIN 553337 UNIT/GM EXTERNAL POWDER Apply to affected areas BID NYSTATIN 51126901283 No Longer Active Wayne Harms PA Acti ve BENADRYL 25 MG ORAL CAPSULE prn DIPHENHYDRAMINE HCL 77013996542 Active Wayne Harms PA Active LOTRISONE 1-0.05 % EXTERNAL CREAM apply twice a day 20 25/02/17 CLOTRIMAZOLE-BETAMETHASONE 52328400596 No Longer Active Wayne Harms PA Active HYDROCODONE-ACETAMINOPHEN 5-325 MG ORAL TABLET 1-2 every 4hr s prn pain HYDROCODONE-ACETAMINOPHEN 04482787969 No Longer Activ e Wayne Harms PA Active VICODIN 5-300 MG ORAL TABLET 1-2 tabs every 6hrs as needed for p ain HYDROCODONE-ACETAMINOPHEN 84723713872 No Longer Active Wayne Harms PA Active BENADRYL 25 MG ORAL CAPSULE 1prn DIPHENHYDRA MINE HCL 59500727318 No Longer Active Jillina Frazell CIVIL ENGINEERING INTERN Active ROBITUSSIN DM 100-10 MG/5ML ORAL SYRUP 2 teaspoons four times a day DEXTROMETHORPHAN-GUAIFENESIN 61850507209 No Longer Active Jillina Frazell CIVIL ENGINEERING INTERN Active ACIPHEX 20 MG ORAL TABLET DELAYED RELEASE Take one by mouth daily RABEPRAZOLE SODIUM 60824610362 No Longer Active Jillina Frazell CIVIL ENGINEERING INTERN Active TUMS 500 MG ORAL TABLET CHEWABLE prn SADIQ CIUM CARBONATE ANTACID 06422654273 No Longer Active Jillina Frazell CIVIL ENGINEERING INTERN Active PEPTO-BISMOL 524 MG/30ML ORAL SUSPENSION prn 02/26 BISMUTH SUBSALICYLATE 96588056860 No Longer Active Jillina Frazell CIVIL ENGINEERING INTERN Active BACTRIM DS 800-160 MG ORAL TABLET 1bid SULFAMETHOXAZOLE-TRIMETHOPRIM 39790531226 No Longer Active Beth Naff SPECIAL EDUCATION PROFESSOR Active GAVISCON EXTRA RELIEF FORMULA CHEW prn A LUM HYDROXIDE-MAG CARBONATE CHEW 46157496179 Active Wayne Harms PA Active DIFLUCAN 150 MG ORAL TABLET 1stat FLUCONAZOL E 88946685266 No Longer Active Wayne Harms PA Active AUGMENTIN 875-125 MG ORAL TABLET 1 tab by mouth twice daily with food AMOXICILLIN-POT CLAVULANATE 51374806786 No Longer Act rancho Wayne Harms PA Active FLUTICASONE PROPIONATE 50 MCG/ACT NASAL SUSPENSION 1 t o 2 sprays each nostril twice a day FLUTICASONE PROPIONATE 12841545322 No Lo nger Active Wayne Harms PA Active HYDROCORTISONE 2.5 % EXTERNAL CREAM apply 2-4 times a day, a s directed, prn HYDROCORTISONE 67275164673 No Longer Active Wayne Harms PA Active ZITHROMAX Z-SANJANA 250 MG ORAL TABLET A ZITHROMYCIN 78235800809 No Longer Active Wayne Harms PA Active SIMVASTATIN 40 MG ORAL TABLET one tablet daily SIMVASTATIN 73554375747 No Longer Active Misty Yoo LPN Active LOVASTATIN 40 MG ORAL TABLET Take one by mouth daily 12/11 LOVASTATIN 48017818106 No Longer Active Misty Yoo SPECIAL EDUCATION PROFESSOR Active PREDNISONE 20 MG ORAL TABLET 2 PO qd x 2d, 1 PO qd x 2d, 1/2 PO qd x 2d PREDNISONE 56434856749 No Longer Active Ismael silva PA Active ZITHROMAX 250 MG ORAL TABLET two tablets now and one daily x 4 d ays AZITHROMYCIN 91008530068 No Longer Active Misty Yoo SPECIAL EDUCATION PROFESSOR Active ZOLPIDEM TARTRATE 10MG TABS (ZOLPIDEM TARTRATE) 1 at bedtime as needed Active Supriya Betzaida RMA Active CLOBETASOL PROPIONATE 0.05 % EXTERNAL CREAM apply as directed CLOBETASOL PROPIONATE 22151011415 No Longer Active Wayne Harms PA A ctive CYMBALTA 30 MG ORAL CAPSULE DELAYED RELEASE PARTICLES takes 90mg qod alt with 60mg DULOXETINE HCL 64097689469 No Longer Active Wayne Harm s PA Active ZITHROMAX 250 MG ORAL TABLET 2 po today, then 1 po q days 2-5 20 12/24/14 AZITHROMYCIN 35460838360 No Longer Active Wayne Harms PA Ac tive TRIAMCINOLONE ACETONIDE 0.1 % EXTERNAL CREAM apply qid TRIAMCINOLONE ACETONIDE 21620820666 No Longer Active Wayne Harms PA Active ALPRAZOLAM 0.25 MG ORAL TABLET 1 tab three times a day 201 02/23/14 ALPRAZOLAM 62614063463 No Longer Active Wayne Harms PA Active ZOLPIDEM TARTRATE 5 MG ORAL TABLET 1 at bedtime as needed ZOLPIDEM TARTRATE 60266705856 No Longer Active Beth Turner SPECIAL EDUCATION PROFESSOR Active ALPRAZOLAM 0.25 MG ORAL TABLET 1 tab three times a day ALPRAZOLAM 0.25 MG ORAL TABLET 901960 ALPRAZOLAM Inactive TRIAMCINOLONE ACETONIDE 0.1 % EXTERNAL CREAM apply qid TRIAMCINOLONE ACETONIDE 0.1 % EXTERNAL CREAM 5408674 TRIAMCINOLONE A CETONIDE Inactive CYMBALTA 30 MG ORAL CAPSULE DELAYED RELEASE PARTICLES takes 90mg qod alt with 60mg CYMBALTA 30 MG ORAL CAPSULE DELAYED RELEA SE PARTICLES 574336 DULOXETINE HCL Inactive CLOBETASOL PROPIONATE 0.05 % EXTERNAL CREAM apply as directed CLOBETASOL PROPIONATE 0.05 % EXTERNAL CREAM 777278 CLOBETASOL PROPI KELVIN Inactive LOVASTATIN 40 MG ORAL TABLET Take one by mouth daily 2 LOVASTATIN 40 MG ORAL TABLET 057403 LOVASTATIN Inactive ZITHROMAX Z-SANJANA 250 MG ORAL TABLET 03/03 ZITHROMAX Z-SANJANA 250 MG ORAL TABLET 215796 AZITHROMYCIN Inactive HYDROCORTISONE 2.5 % EXTERNAL CREAM apply 2-4 times a day, a s directed, prn HYDROCORTISONE 2.5 % EXTERNAL CREAM 105661 HYDRO CORTISONE Inactive FLUTICASONE PROPIONATE 50 MCG/ACT NASAL SUSPENSION 1 t o 2 sprays each nostril twice a day FLUTICASONE PROPIONA TE 50 MCG/ACT NASAL SUSPENSION 1898093 FLUTICASONE PROPIONATE Inactive AUGMENTIN 875-125 MG ORAL TABLET 1 tab by mouth twice daily with food AUGMENTIN 875-125 MG ORAL TABLET AMOXICIL BLOSSOM-POT CLAVULANATE Inactive DIFLUCAN 150 MG ORAL TABLET 1stat DIFLUCAN 150 MG ORAL TABLET 035395 FLUCONAZOLE Inactive PEPTO-BISMOL 524 MG/30ML ORAL SUSPENSION prn PEPTO-BISMOL 524 MG/30ML ORAL SUSPENSION BISMUTH SUBSALICYLATE Inactive TUMS 500 MG ORAL TABLET CHEWABLE prn TUMS 500 MG ORAL TABLET CHEWABLE 878360 CALCIUM CARBONATE ANTACID Inactive ACIPHEX 20 MG ORAL TABLET DELAYED RELEASE Take one by mouth daily ACIPHEX 20 MG ORAL TABLET DELAYED RELEASE 849845 RABEPRAZOLE SODIUM Inactive ROBITUSSIN DM 100-10 MG/5ML [...] pain HYDROCODONE-ACETAMINOPHEN 5-325 MG ORAL TABLET 8 86411 HYDROCODONE-ACETAMINOPHEN Inactive LOTRISONE 1-0.05 % EXTERNAL CREAM apply twice a day 20 25/02/17 LOTRISONE 1- 0.05 % EXTERNAL CREAM CLOTRIMAZOLE-BETAMETHASONE Inactive NYSTATIN 818239 UNIT/GM EXTERNAL POWDER Apply to affected areas BID NYSTATIN 319020 UNIT/GM EXTERNAL POWDER 517451 NYSTATIN Inactive ZITHROMAX Z-SANJANA 250 MG ORAL TABLET take as directed 20 26/04/19 ZITHROMAX Z-SANJANA 250 MG ORAL TABLET 875935 AZITHROMYCIN Inact ranch[place] LOTRISONE 1-0.05 % EXTERNAL CREAM Apply bid LOTRISONE 1- 0.05 % EXTERNAL CREAM CLOTRIMAZOLE-BETAMETHASONE Inactive BENADRYL ITCH STOPPING 1-0.1 % EXTERNAL CREAM prn BENADRYL ITCH STOPPING 1-0.1 % EXTERNAL CREAM DIPHENHYDRAMINE-ZINC ACETATE Inactive OMEGA-3 1000 MG ORAL CAPSULE 2qd OMEGA-3 1000 MG ORAL CAPSULE 095466 OMEGA-3 FATTY ACIDS Inactive ZITHROMAX 250 MG ORAL TABLET 2 po today, then 1 po q days 2-5 20 26/06/19 ZITHROMAX 250 MG ORAL TABLET 448103 AZITHROMYCIN [place] PREMARIN 0.625 MG ORAL TABLET Take one by mouth daily PREMARIN 0.625 MG ORAL TABLET ESTROGENS CONJUGATED Inactive PREDNISONE 20 MG ORAL TABLET 3tab x 2days,2tab x 2days ,1tab x 2days,1/2tab x 2days PREDNISONE 20 MG ORAL TABLET 836077 PREDNIS ONE Inactive CYMBALTA 30 MG ORAL CAPSULE DELAYED RELEASE PARTICLES 1 daily wi th 60mg CYMBALTA 30 MG ORAL CAPSULE DELAYED RELEASE PARTICLES 456317 DULOXETINE HCL Inactive CYMBALTA 60 MG ORAL CAPSULE DELAYED RELEASE PARTICLES one tablet daily, takes 30mg. with 60mg. to make 90 mg. CYMBALTA 60 MG ORAL CAPSULE DELAYED RELEASE PARTICLES 512876 DULOXETINE HCL Inacti ve CYMBALTA 30 MG ORAL CAPSULE DELAYED RELEASE PARTICLES 3 caps daily CYMBALTA 30 MG ORAL CAPSULE DELAYED RELEASE PARTICLES 542751 DULOXE ROSANNE HCL Inactive HYDROCORTISONE 2.5 % EXTERNAL CREAM Apply four times a day to af fected area HYDROCORTISONE 2.5 % EXTERNAL CREAM 335487 HYDROCORTISO NE Inactive CLARITIN 10 MG ORAL TABLET 1 tablet by mouth daily as needed for allergies CLARITIN 10 MG ORAL TABLET 879763 LORATADINE Inact ranch[place] VENLAFAXINE HCL 75 MG ORAL TABLET 1tid VENLAFAXINE HCL 75 MG ORAL TABLET 937136 VENLAFAXINE HCL Inactive CENTRUM SILVER ADULT 50+ ORAL TABLET 1qd 2013 CENTRUM SILVER ADULT 50+ ORAL TABLET MULTIPLE VITAMINS-MINERALS Inactive CALCIUM + D 600-200 MG-UNIT TABS Take one by mouth daily CALCIUM + D 600-200 MG-UNIT TABS CALCIUM CARBONATE-VITAMIN D Inactive AMOXICILLIN 500 MG ORAL CAPSULE 2 caps tid for 10days AMOXICILLIN 500 MG ORAL CAPSULE 323599 AMOXICILLIN Inactive CYMBALTA 60 MG ORAL CAPSULE DELAYED RELEASE PARTICLES 1 cap by mouth daily CYMBALTA 60 MG ORAL CAPSULE DELAYED RELE ASE PARTICLES 724914 DULOXETINE HCL Inactive VITAMIN D 1000 UNIT ORAL TABLET 1qd 4 VITAMIN D 1000 UNIT ORAL TABLET CHOLECALCIFEROL Inactive CHERATUSSIN AC 100-10 MG/5ML ORAL SYRUP one teaspoon qid. 9 CHERATUSSIN AC 100-10 MG/5ML ORAL SYRUP GUAIFENESIN-CODEINE Inactive FLAGYL 500 MG ORAL TABLET 1 tablet by mouth three times daily 20 28/05/03 FLAGYL 500 MG ORAL TABLET 759662 METRONIDAZOLE Inacti ve CLARITIN 10 MG ORAL TABLET one tablet daily CLARITIN 10 MG ORAL TABLET 604099 LORATADINE Inactive TUSSIONEX PENNKINETIC ER 10-8 MG/5ML [...] affected area HYDROCORTISONE 2.5 % EXTERNAL CREAM 928327 HYDRO CORTISONE Inactive ACIPHEX 20 MG ORAL TABLET DELAYED RELEASE 1qd ACIPHEX 20 MG ORAL TABLET DELAYED RELEASE 235726 RABEPRAZOLE SODIUM Inactive B-12 2000 MCG ORAL TABLET 1qd B-12 2000 MCG ORAL TABLET CYANOCOBALAMIN Inactive VITAMIN D3 1000 UNIT ORAL TABLET 1qd VITAMIN D3 1000 UNIT ORAL TABLET CHOLECALCIFEROL Inactive CEPHALEXIN 250 MG ORAL CAPSULE Take one tablet qid 201 05/25/29 CEPHALEXIN 250 MG ORAL CAPSULE 199089 CEPHALEXIN Inactive FISH OIL 1200 MG ORAL CAPSULE One daily prn FISH OIL 1200 MG ORAL CAPSULE OMEGA-3 FATTY ACIDS Inactive ZITHROMAX Z-SANJANA 250 MG ORAL TABLET 2x1day,5p2tokk 2014 ZITHROMAX Z-SANJANA 250 MG ORAL TABLET 905943 AZITHROMYCIN Inact [place] BENZONATATE 200 MG ORAL CAPSULE Take one capsule three times a d ay BENZONATATE 200 MG ORAL CAPSULE 711550 BENZONATATE Inactive GREEN TEA SLIM ORAL TABLET Take one daily GREEN TEA SLIM ORAL TABLET MISC NATURAL PRODUCTS Inactive PROBIOTIC ORAL CAPSULE Take one daily PROBIOTIC ORAL CAPSULE 3062021 PROBIOTIC PRODUCT Inactive VITAMIN D3 1000 UNIT ORAL TABLET Take two daily 05/05 VITAMIN D3 1000 UNIT ORAL TABLET CHOLECALCIFEROL Inactive HYDROCORTISONE 2.5 % EXTERNAL CREAM Apply three times a day to affected area HYDROCORTISONE 2.5 % EXTERNAL CREAM 569381 HYDRO CORTISONE Inactive MOBIC 15 MG ORAL TABLET 1 tablet by mouth daily in am with PPI 2 015/04/10 MOBIC 15 MG ORAL TABLET 311783 MELOXICAM Inactive CLARITIN-D 12 HOUR 5-120 MG ORAL TABLET EXTENDED RELEA SE 12 HOUR Take one tablet bid CLARITIN-D 12 HOUR 5 -120 MG ORAL TABLET EXTENDED RELEASE 12 HOUR LORATADINE-PSEUDOEPHEDRINE Inactive ACETAMINOPHEN 500 MG ORAL TABLET prn ACETAMINOPHEN 500 MG ORAL TABLET 498355 ACETAMINOPHEN Inactive CLARITIN-D 12 HOUR 5-120 MG [...] yeast 03/03 DIFLUCAN 150 MG ORAL TABLET 265536 FLUCONAZOLE Inactive DIFLUCAN 150 MG ORAL TABLET Take one tablet today and repeat in 72 hours DIFLUCAN 150 MG ORAL TABLET 766331 FLUCONAZOLE Inactive IBUPROFEN 200 MG ORAL TABLET Take 3 tablets every 6hrs IBUPROFEN 200 MG ORAL TABLET 053938 IBUPROFEN Inactive ZITHROMAX Z-SANJANA 250 MG ORAL TABLET Take 2 tablets toda y and 1 each day till gone ZITHROMAX Z-SANJANA 250 MG ORAL TABLET 312092 A ZITHROMYCIN Inactive PROAIR HFA 108 (90 [...] bowels 3 REGLAN 10 MG ORAL TABLET 459194 METOCLOPRAMIDE HCL Inactive PREDNISONE 20 MG ORAL TABLET Take 2 tablets by mouth d aily for 2 days then 1 tablet daily for 2 days. PREDNISONE 20 MG ORAL T ABLET 938954 PREDNISONE Inactive ZYRTEC ALLERGY 10 MG ORAL CAPSULE 1qd ZYRTEC ALLERGY 10 MG ORAL CAPSULE CETIRIZINE HCL Inactive ZITHROMAX 250 MG ORAL TABLET 2 po today, then 1 po q days 2-5 20 12/24/14 ZITHROMAX 250 MG ORAL TABLET 472444 AZITHROMYCIN [place] ZITHROMAX 250 MG ORAL TABLET two tablets now and one daily x 4 d ays ZITHROMAX 250 MG ORAL TABLET 562868 AZITHROMYCIN [place] PREDNISONE 20 MG ORAL TABLET 2 PO qd x 2d, 1 PO qd x 2d, 1/2 PO qd x 2d PREDNISONE 20 MG ORAL TABLET 432523 PREDNISONE Inactive SIMVASTATIN 40 MG ORAL TABLET one tablet daily SIMVASTATIN 40 MG ORAL TABLET 326322 SIMVASTATIN Inactive BACTRIM DS 800-160 MG ORAL TABLET 1bid BACTRIM DS 800-160 MG ORAL TABLET 499821 SULFAMETHOXAZOLE-TRIMETHOPRIM Inactive ZITHROMAX 250 MG ORAL TABLET 2 po today, then 1 po q days 2-5 20 26/12/21 ZITHROMAX 250 MG ORAL TABLET 876031 AZITHROMYCIN [place] ZITHROMAX 250 MG ORAL TABLET 2 po today, then 1 po q days 2-5 20 27/02/16 ZITHROMAX 250 MG ORAL TABLET 927285 AZITHROMYCIN [place] ZITHROMAX 250 MG ORAL TABLET 2 po today, then 1 po q days 2-5 20 26/02/30 ZITHROMAX 250 MG ORAL TABLET 141495 AZITHROMYCIN [place] ZITHROMAX 250 MG ORAL TABLET 2 po today, then 1 po q days 2-5 20 26/06/21 ZITHROMAX 250 MG ORAL TABLET 635688 AZITHROMYCIN [place] ZITHROMAX 250 MG ORAL TABLET 2 po today, then 1 po q days 2-5 20 31/03/18 ZITHROMAX 250 MG ORAL TABLET 048392 AZITHROMYCIN [place] ZITHROMAX Z-SANJANA 250 MG ORAL TABLET 2 today, then 1 daily for 4 d ays ZITHROMAX Z-SANJANA 250 MG ORAL TABLET 200410 AZITHROMYCIN Inactive AMOXICILLIN 500 MG ORAL CAPSULE Take 1 capsule by mout h three times a day X 10 days AMOXICILLIN 500 MG ORAL CAPSULE 047138 AMOX ICILLIN Inactive AMOXICILLIN-POT CLAVULANATE 875-125 MG ORAL TABLET 1 pill by mouth twice daily AMOXICILLIN-POT CLAVULANATE 875-125 MG ORAL TABL ET 911626 AMOXICILLIN-POT CLAVULANATE Inactive AUGMENTIN 875-125 MG ORAL TABLET Take one tablet twice a day with food AUGMENTIN 875-125 MG ORAL TABLET AMOXICILLIN-POT CLAVULANATE Inactive POLYTRIM 50339-1.1 UNIT/ML-% OPHTHALMIC SOLUTION 1 gtt to affected eye q3h x 7 days POLYTRIM 52099-1.1 UNIT/ML-% OPH THALMIC SOLUTION 420085 POLYMYXIN B-TRIMETHOPRIM Inactive MACROBID 100 MG ORAL CAPSULE 1 cap by mouth twice daily MACROBID 100 MG ORAL CAPSULE 8005601 NITROFURANTOIN MONOHYD MACRO In active Advance Directives [...] Fluarix, Agriflu(>= 18 yo)) Fluzone (>=3 yrs.) [[id number]] Influenza, seasonal, injec table Seasonal influenza vaccine, injectable, containing preservative, for > 3 years old (Afluria, FluLaval, Fluzone, Fluvirin, Fluarix, Agriflu(>= 18 yo)) Fluzone (>3 yrs.) [[id number]] Influenza, seasonal, inject able Seasonal influenza vaccine, injectable, containing preservative, for > 3 years old (Afluria, FluLaval, Fluzone, Fluvirin, Fluarix, Agriflu(>= 18 yo)) Fluarix (>3 yrs.) [[id number]] Influenza, seasonal, inject able Vital Signs Date [...] Magnesium - Chemistry sodium, serum 138 mmol/L 216-860 2474/09/02 carbon dioxide, venous blood 28.0 mmol/L 21.0-32 [...] 0.20 mg/dL 0.00-1.00 cholesterol, serum 228 mg/dL [phone]/09/02 triglyceride, serum, fasting 236 mg/dL 30-200 HDL [...] 0.36-3.74 Encounters Code Encounter Date Provider Facility CPT-32632 [id number] Vst-Est Level III 17:07:11 CDT Jenny Yang APRN [facility] CPT-79037 [id number] Vst-Est Level III 17:51:44 WELDER APPRENTICE ARC [facility] CPT-75575 Level 3 Est. Patient 11:09:39 CDT Viviana Rubio [facility] CPT-41452 [id number] Vst-Est Level IV 09:14:31 CDT Conchis Yang [facility] CPT-38709 84135-Ino Vst-Est Level III 22:05:50 CDT Jenny Yang [facility] CPT-32627 Level 3 Est. Patient 15:00:02 WELDER APPRENTICE ARC Will Avi jarquin [facility] CPT-68949 Level 2 Est. Patient 13:46:20 CDT Ashley Kt [facility] CPT-35249 Level 2 Est. Patient 13:45:36 CDT Ashley Kt [facility] CPT-54397 Level 3 Est. Patient 15:52:07 CDT Ashley Yok [facility] CPT-77021 Level 3 Est. Patient 08:20:37 CDT Ashley Yoелена [facility] CPT-67715 Level 3 Est. Patient 15:06:41 CDT Derrick donaldson MD [facility] CPT-75680 Level 3 Est. Patient 11:13:21 WELDER APPRENTICE ARC Derrick donaldson MD [facility] CPT-94020 Level 3 Est. Patient 12:54:25 WELDER APPRENTICE ARC Ashley peacock [facility] CPT-95365 Level 3 Est. Patient 23:34:49 WELDER APPRENTICE ARC Ashley Meraz [facility] CPT-61257 Level 3 Est. Patient 16:37:09 WELDER APPRENTICE ARC Ashley peacock [facility] CPT-93402 Level 3 Est. Patient 11:59:30 WELDER APPRENTICE ARC Ashley Meraz [facility] CPT-77622 Level 4 Est. Patient 07:40:13 CDT Wayne delatorre [facility] CPT-97674 Level 4 Est. Patient 08:06:18 CDT [facility] CPT-57517 Level 3 Est. Patient 11:14:45 CDT Wayne delatorre [facility] [place] CPT-30701 Level 3 Est. Patient 10:14:55 CDT Wayne delatorre [facility] CPT-71075 Level 4 Est. Patient 15:23:47 CDT Wayne delatorre [facility] CPT-09616 Level 3 Est. Patient 07:50:51 WELDER APPRENTICE ARC Wayne delatorre [facility] CPT-68311 Level 3 Est. Patient 14:47:52 CDT [facility] CPT-24191 Level 3 Est. Patient 11:28:46 CDT Wayne delatorre [facility] CPT-79339 Level 4 Est. Patient 14:48:43 CDT [facility]atorre [facility] CPT-83173 Level 3 Est. Patient 14:10:18 WELDER APPRENTICE ARC Wayne delatorre [facility] CPT-37686 Level 3 Est. Patient 16:44:33 WELDER APPRENTICE ARC Wayne [facility]atorre [facility] CPT-52151 Level 4 Est. Patient 08:22:34 WELDER APPRENTICE ARC Wayne [facility]atorre [facility] CPT-73929 Level 4 Est. Patient 07:10:30 CDT [facility] CPT-05712 Level 3 Est. Patient 14:50:20 WELDER APPRENTICE ARC Wayne [facility]atorre [facility] CPT-83578 Level 3 Est. Patient 09:46:08 WELDER APPRENTICE ARC Zuleika [facility] CPT-30253 Level 4 Est. Patient 07:56:24 WELDER APPRENTICE ARC Wayne YANG [facility] CPT-57764 Level 3 Est. Patient 12:13:53 CDT Ismael Denton [facility] CPT-42843 Level 4 Est. Patient 12:28:51 WELDER APPRENTICE ARC Wayne [facility]atorre [facility] CPT-29744 Level 3 Est. Patient 15:23:42 WELDER APPRENTICE ARC Wayne [facility]atorre [facility] CPT-28625 Level 3 Est. Patient 06:34:33 WELDER APPRENTICE ARC [facility] Procedures Code Procedure Name Date Entry Date Standard Desc ription CPT-87974 Allergy Admin 2 17:02:53 CDT CPT-61272 Allergy Admin 2 16:32:35 CDT CPT-54314 Allergy Admin 2 16:26:27 CDT CPT-J3420 Vitamin B12 1000mcg (Cyanocobalamin) 16:32:13 CDT CPT-35335 Abx/Therapy Injection 16:32:13 CDT CPT-55836 Allergy Admin 2 16:32:12 CDT CPT-84967 Allergy Admin 2 16:05:03 CDT CPT-77858 Allergy Admin 2 16:35:15 CDT CPT-01757 Allergy Admin 2 16:20:41 CDT CPT-65347 Allergy Admin 2 11:25:21 CDT CPT-48351 Allergy Admin 2 15:46:12 CDT CPT-XN2611M (4274F) Influenza immunization administe red or previously received 17:51:44 WELDER APPRENTICE ARC CPT-77747 Spec Collection and Handling Fee 10:45:[address] CPT-[id number] (4274F) Influenza immunization administe red or previously received 10:20:17 CDT CPT-22159 Prv Med Est Pt 40-64yrs 16:26:57 CDT CPT-04223 Venipuncture Draw Fee 11:08:31 CDT CPT-34974 Magnesium - LAB USE ONLY 11:08:31 CDT 10/15 CPT-16891 TSH - LAB USE ONLY 11:08:31 CDT CPT-88619 Lipid - LAB USE ONLY 11:08:30 CDT 2 CPT-73377 CMP - LAB USE ONLY 11:08:30 CDT CPT-87640 CBC - LAB USE ONLY 11:08:30 CDT CPT-56593 Spec Collection and Handling Fee 16:14:51 C DT CPT-07681 UA w micro - LAB USE ONLY 16:14:51 CDT 2018 CPT-87763 Prv Med Est Pt 40-64yrs 08:34:49 CDT 10/01 CPT-57553 Sed Rate - LAB USE ONLY 10:50:49 CDT 10/02 CPT-49539 TSH - LAB USE ONLY 10:50:49 CDT CPT-23627 Lipid - LAB USE ONLY 10:50:49 CDT 0 CPT-98071 Magnesium - LAB USE ONLY 10:50:49 CDT 10/02 CPT-72005 CMP - LAB USE ONLY 10:50:49 CDT CPT-81464 CBC - LAB USE ONLY 10:50:49 CDT CPT-86038 Venipuncture Draw Fee 10:50:49 CDT CPT-37577 IV Hydration < or = 1 hr 22:05:50 CDT 04/16 CPT-J7030 Normal Saline 1000 mL 22:05:50 CDT CPT-99699 Abx/Therapy Injection 16:31:51 WELDER APPRENTICE ARC CPT-J2950 Phenergan 25 mg 16:31:51 WELDER APPRENTICE ARC CPT-61529 Abx/Therapy Injection 16:39:40 CDT CPT-80682 First Vx - Ix admin via ID I M or jet injects without counseling by physician 16:39:39 CDT CPT-06017 Prv Med Est Pt 40-64yrs 16:33:10 CDT 11/10 CPT-JTINJ Asp/Joint Injection 16:13:36 CDT CPT-87609 Allergy Admin 2 16:54:52 CDT CPT-82587 Allergy Admin 2 16:46:15 CDT CPT-00329 Allergy Admin 2 11:29:09 CDT CPT-73445 Allergy Admin 2 17:05:15 CDT CPT-32851 Allergy Admin 2 12:31:51 CDT CPT-27712 Allergy Admin 2 15:40:56 CDT CPT-16390 CBC - LAB USE ONLY 09:49:24 CDT CPT-39631 CMP - LAB USE ONLY 09:49:24 CDT CPT-03906 Lipid - LAB USE ONLY 09:49:24 CDT 8 CPT-29622 Venipuncture Draw Fee 09:49:24 CDT CPT-59081 Allergy Admin 2 10:46:11 CDT CPT-JTINJ Asp/Joint Injection 09:52:58 CDT CPT-35491 Skin tag rem 1-15 13:46:20 CDT CPT-77405 Knee, right, 3V - XRAY USE ONLY 13:07:09 CD T CPT-20366 Allergy Admin 2 11:56:38 CDT CPT-11696 Allergy Admin 2 12:00:55 CDT CPT-16331 Allergy Admin 2 16:42:13 CDT CPT-14458 Allergy Admin 2 16:27:55 CDT CPT-89139 Allergy Admin 2 13:24:26 CDT CPT-60765 Allergy Admin 2 17:17:57 WELDER APPRENTICE ARC CPT-71022 Allergy Admin 2 16:23:22 WELDER APPRENTICE ARC CPT-69412 Allergy Admin 2 16:26:55 [facility] CPT-92401 Allergy Admin 2 16:32:33 [facility] CPT-72690 Allergy Admin 2 17:43:40 WELDER APPRENTICE ARC CPT-74092 Allergy Admin 2 16:26:07 WELDER APPRENTICE ARC CPT-09833 Allergy Admin 2 12:31:50 WELDER APPRENTICE ARC CPT-63880 Allergy Admin 2 16:40:38 WELDER APPRENTICE ARC CPT-63588 Allergy Admin 2 17:07:36 CDT CPT-G0008 Administration of Influenza Virus Vaccine 17:01:01 CDT CPT-51602 First Vx - Ix admin via ID I M or jet injects without counseling by physician 17:01:01 CDT CPT-31784 Allergy Admin 2 12:06:54 CDT CPT-17042 Allergy Admin 2 17:04:46 CDT CPT-60233 Allergy Admin 2 16:34:48 CDT CPT-38463 Allergy Admin 2 17:04:51 CDT CPT-66661 Allergy Admin 2 16:25:14 CDT CPT-98251 Allergy Admin 2 10:52:02 CDT CPT-80485 Allergy Admin 2 11:45:31 CDT CPT-66735 Allergy Admin 2 12:02:20 CDT CPT-93609 Allergy Admin 2 15:47:29 CDT CPT-28796 Allergy Admin 2 13:25:44 CDT CPT-76195 Allergy Admin 2 10:51:13 CDT CPT-34080 CBC - LAB USE ONLY 10:44:39 CDT CPT-90869 CMP - LAB USE ONLY 10:44:39 CDT CPT-11297 Lipid - LAB USE ONLY 10:44:39 CDT 9 CPT-04727 Venipuncture Draw Fee 10:44:38 CDT CPT-91482 Allergy Admin 2 12:25:22 CDT CPT-35856 Allergy Admin 2 12:41:34 CDT CPT-34457 Allergy Admin 2 15:29:46 CDT CPT-92948 Allergy Admin 2 14:46:53 CDT CPT-21368 Allergy Admin 2 14:16:16 CDT CPT-94048 Allergy Admin 2 16:55:26 CDT CPT-99378 Allergy Admin 2 10:12:02 T CPT-98745 Allergy Admin 2 14:53:56 CDT CPT-03766 Allergy Admin 2 17:01:54 T CPT-91671 Allergy Admin 2 09:36:02 T CPT-01975 Allergy Admin 2 16:53:26 [facility] CPT-76977 Allergy Admin 2 16:59:41 [facility] CPT-43949 Allergy Admin 2 16:36:44 [facility] CPT-94006 Allergy Admin 2 16:17:16 [facility] CPT-07853 Allergy Admin 2 17:08:10 [facility] CPT-98845 Allergy Admin 2 12:16:08 [facility] CPT-75395 Allergy Admin 2 16:47:30 [facility] CPT-54746 Allergy Admin 2 16:59:44 [facility] CPT-10580 Allergy Admin 2 12:48:53 [facility] CPT-80747 Allergy Admin 2 10:19:48 WELDER APPRENTICE ARC CPT-23311 Allergy Admin 2 12:40:17 WELDER APPRENTICE ARC CPT-27319 Abx/Therapy Injection 17:21:59 WELDER APPRENTICE ARC CPT-17825 First Vx - Ix admin via ID I M or jet injects without counseling by physician 17:21:57 WELDER APPRENTICE ARC CPT-92742 Allergy Admin 2 17:20:12 WELDER APPRENTICE ARC CPT-11169 Allergy Admin 2 11:12:50 WELDER APPRENTICE ARC CPT-86824 Allergy Admin 2 17:02:39 CDT CPT-84889 BMP - LAB USE ONLY 10:33:02 CDT CPT-36609 CBC - LAB USE ONLY 10:33:02 CDT CPT-03331 Venipuncture Draw Fee 10:33:02 CDT CPT-22212 Abx/Therapy Injection 12:29:08 CDT CPT-10328 Allergy Admin 2 10:39:48 CDT CPT-67068 Allergy Admin 2 10:55:47 CDT CPT-PV Prev. Care Visit 10:10:00 CDT CPT-00479 Allergy Admin 2 11:31:20 CDT CPT-04894 Allergy Admin 2 16:53:45 CDT CPT-62087 Allergy Admin 2 16:36:42 CDT CPT-82941 Allergy Admin 2 16:30:19 CDT CPT-16834 Allergy Admin 2 15:39:35 CDT CPT-34223 Allergy Admin 2 17:51:32 CDT CPT-66225 Allergy Admin 2 11:50:50 CDT CPT-PV Prev. Care Visit 14:09:05 CDT CPT-59857 Allergy Admin 2 13:37:39 CDT CPT-18267 Abx/Therapy Injection 12:17:43 CDT CPT-97726 Venipuncture Draw Fee 10:39:55 CDT CPT-65907 Allergy Admin 2 12:04:53 CDT CPT-17197 Allergy Admin 2 10:04:39 CDT CPT-39773 Allergy Admin 2 12:15:35 CDT CPT-68705 Allergy Admin 2 17:04:36 CDT CPT-27922 Allergy Admin 2 16:25:49 CDT CPT-70730 Allergy Admin 2 17:30:06 CDT CPT-80849 Allergy Admin 2 10:11:48 CDT CPT-85271 Allergy Admin 2 17:06:13 CDT CPT-60307 Abx/Therapy Injection 12:23:07 CDT CPT-J0702 Celestone 12 mg (Betamethasone) 12:23:07 CD T CPT-01884 Venipuncture Draw Fee 10:26:42 CDT CPT-26295 Allergy Admin 2 12:10:01 CDT CPT-67221 Allergy Admin 2 15:13:57 WELDER APPRENTICE ARC CPT-69842 Allergy Admin 2 16:55:22 WELDER APPRENTICE ARC CPT-72662 Allergy Admin 2 10:13:46 WELDER APPRENTICE ARC CPT-87915 Venipuncture Draw Fee 10:06:08 WELDER APPRENTICE ARC CPT-97409 Allergy Admin 2 16:15:41 WELDER APPRENTICE ARC CPT-71388 Allergy Admin 2 16:40:21 WELDER APPRENTICE ARC CPT-19742 Allergy Admin 2 16:31:48 WELDER APPRENTICE ARC CPT-51935 Allergy Admin 2 16:38:26 WELDER APPRENTICE ARC CPT-34719 Allergy Admin 2 16:40:08 WELDER APPRENTICE ARC CPT-52297 Allergy Admin 2 08:34:27 WELDER APPRENTICE ARC CPT-44369 Allergy Admin 2 14:27:45 WELDER APPRENTICE ARC CPT-26094 Destruction bgn lsn up to 14 09:41:27 WELDER APPRENTICE ARC 2 CPT-01558 Allergy Admin 2 17:45:17 WELDER APPRENTICE ARC CPT-80750 Allergy Admin 2 14:59:03 WELDER APPRENTICE ARC CPT-90228 Allergy Admin 2 12:49:42 CDT CPT-28953 Administration single or combination vac cine inc oral 15:01:57 CDT CPT-10931 Fluzone Quadrivalent Intramuscular Suspe nsion 0.5 ML 15:01:57 CDT CPT-55682 Allergy Admin 2 15:07:08 CDT CPT-70757 Allergy Admin 2 15:39:01 CDT CPT-72252 Allergy Admin 2 17:40:11 CDT CPT-23680 Allergy Admin 2 16:07:08 CDT CPT-79483 Allergy Admin 2 16:08:07 CDT CPT-09196 Venipuncture Draw Fee 09:34:29 CDT CPT-24813 Allergy Admin 2 16:27:43 CDT CPT-72039 Allergy Admin 2 15:53:10 CDT CPT-30805 Allergy Admin 2 15:42:29 CDT CPT-14356 Allergy Admin 2 11:26:14 CDT CPT-67490 Allergy Admin 2 10:36:24 CDT CPT-83733 Allergy Admin 2 16:53:37 CDT CPT-27326 Allergy Admin 2 11:21:44 CDT CPT-75718 Allergy Admin 2 10:50:40 CDT CPT-58036 Allergy Admin 2 11:19:11 CDT CPT-11742 Venipuncture Draw Fee 11:12:25 CDT CPT-91066 Allergy Admin 2 11:14:51 CDT CPT-31434 Allergy Admin 2 16:53:11 CDT CPT-61737 Allergy Admin 2 11:45:56 CDT CPT-88104 Allergy Admin 2 12:51:39 CDT CPT-32486 Allergy Admin 2 12:08:56 CDT CPT-02875 Allergy Admin 2 15:29:45 CDT CPT-94892 Allergy Admin 2 16:34:01 CDT CPT-10767 Allergy Admin 2 16:36:46 CDT CPT-41583 Allergy Admin 2 15:19:16 CDT CPT-97410 Allergy Admin 2 16:13:25 CDT CPT-48683 Allergy Admin 2 17:06:17 CDT CPT-61243 Allergy Admin 2 10:42:10 [employer] ARC CPT-16021 Allergy Admin 2 17:33:16 [employer] ARC CPT-14329 Allergy Admin 2 10:53:30 W[employer]C CPT-88649 Allergy Admin 2 14:18:24 WEL[employer]ICE [employer]C CPT-35480 Allergy Admin 2 10:18:29 W[employer]ICE ARC CPT-82003 Allergy Admin 2 12:57:40 W[employer]C CPT-14632 Allergy Admin 2 16:53:33 W[employer]C CPT-45516 Allergy Admin 2 12:43:00 [employer]C CPT-23662 Allergy Admin 2 13:14:09 [employer] ARC CPT-31442 Pneumovax 23 Injection Injectable 25 MCG /0.5ML 09:51:29 [employer]EL[employer] ARC CPT-G0009 Administration of Pneumococcal Vaccine 09:51:29 [employer] AP[employer]ICE ARC CPT-31582 Influenza split virus > age 3 09:51:29 W[employer] AP[employer] ARC CPT-G0008 Administration of Influenza Virus Vaccine 02/23 09:51:29 [employer] ARC CPT-95772 Venipuncture Draw Fee 10:31:06 CDT CPT-J0702 Celestone 12 mg (Betamethasone) 11:34:17 CD T CPT-69487 Abx/Therapy Injection 11:34:17 CDT CPT-69745 Chest 2V Frontal and Lat 11:31:47 CDT 07/04 CPT-62552 Venipuncture Draw Fee 11:31:47 CDT CPT-21928 Allergy Admin 2 14:31:05 CDT CPT-32493 EKG Trac and Interp 08:42:32 CDT CPT-50895 Chest 2V Frontal and Lat 08:42:32 CDT 05/28 CPT-69043 Venipuncture Draw Fee 08:39:02 CDT CPT-14612 Allergy Admin 2 16:59:09 CDT CPT-00925 Allergy Admin 2 17:06:11 CDT CPT-38590 Allergy Admin 2 16:04:36 CDT CPT-97858 Venipuncture Draw Fee 16:32:44 [employer] APPRENTICE ARC CPT-98017 Venipuncture Draw Fee 10:54:37 WELDER APPRENTICE ARC CPT-35989 Allergy Admin 2 14:53:55 WELDER APPRENTICE ARC CPT-56925 Allergy Admin 2 10:23:58 WELDER APPRENTICE ARC CPT-77410 First Vx Component - Ix admi n via ID IM or jet inj without physician counseling 15:34:26 WELDER APPRENTICE ARC CPT-48986 Fluzone (>=3 yrs.) 15:34:26 WELDER APPRENTICE ARC CPT-84632 Allergy Admin 2 15:56:02 WELDER APPRENTICE ARC CPT-78519 Allergy Admin 2 11:08:58 WELDER APPRENTICE ARC CPT-20596 Allergy Admin 2 10:51:36 WELDER APPRENTICE ARC CPT-11297 Allergy Admin 2 15:38:19 WELDER APPRENTICE ARC CPT-73716 Allergy Admin 2 15:12:46 CDT CPT-15698 Allergy Admin 2 10:28:50 CDT CPT-24272 Allergy Admin 2 16:35:33 CDT CPT-86732 Allergy Admin 2 10:14:18 CDT CPT-73460 Abx/Therapy Injection 09:06:45 CDT CPT-J0702 Celestone 6 mg (Betamethasone) 09:06:45 CDT CPT-60595 Allergy Admin 2 15:51:15 CDT CPT-53425 Allergy Admin 2 10:40:16 CDT CPT-01898 Allergy Admin 2 16:35:55 CDT CPT-70029 Allergy Admin 2 13:12:52 CDT CPT-20194 Allergy Admin 2 16:06:50 CDT CPT-39531 Allergy Admin 2 11:04:24 CDT CPT-67764 Allergy Admin 2 10:44:50 CDT CPT-20456 Allergy Admin 2 15:13:40 CDT CPT-17779 Allergy Admin 2 15:00:03 CDT CPT-02802 Allergy Admin 2 10:37:38 CDT CPT-68393 Venipuncture Draw Fee 09:16:43 WELDER APPRENTICE ARC CPT-39964 Allergy Admin 2 11:15:59 WELDER APPRENTICE ARC CPT-85616 Postop F/U Visit 10:10:52 WELDER APPRENTICE ARC CPT-68420 Allergy Admin 2 13:05:05 WELDER APPRENTICE ARC CPT-16427 Postop F/U Visit 19:45:16 WELDER APPRENTICE ARC CPT-45373 Allergy Admin 2 11:52:35 WELDER APPRENTICE ARC CPT-19104 Allergy Admin 2 10:49:22 WELDER APPRENTICE ARC CPT-OV Office Visit 13:55:55 WELDER APPRENTICE ARC CPT-50770 Allergy Admin 2 12:54:28 WELDER APPRENTICE ARC CPT-OV Office Visit 14:04:48 [employer]DER APPRENTICE ARC CPT-13710 Venipuncture Draw Fee 10:29:14 WELDER APPRENTICE ARC CPT-75124 Allergy Admin 2 11:24:43 WELDER APPRENTICE ARC CPT-86241 Knee 3V 11:00:12 WELDER APPRENTICE ARC CPT-91636 C-Spine Min 4V 11:00:12 WELDER APPRENTICE ARC CPT-60064 Allergy Admin 2 13:38:40 WELDER APPRENTICE ARC CPT-99918 Venipuncture Draw Fee 11:33:37 CDT CPT-34493 Allergy Admin 2 15:34:37 CDT CPT-53790 Allergy Admin 2 14:11:42 CDT CPT-93108 Administration single or combination vac cine inc oral 12:51:42 CDT CPT-43157 Influenza split virus > age 3 12:51:42 CDT CPT-62490 Allergy Admin 2 11:58:43 CDT CPT-37376 Allergy Admin 2 11:29:32 CDT CPT-34677 Allergy Admin 2 10:55:19 CDT CPT-78554 Allergy Admin 2 12:38:54 CDT CPT-31028 Allergy Admin 2 13:01:47 CDT CPT-63096 Abx/Therapy Injection 12:41:18 CDT CPT-J0702 Celestone 12 mg (Betamethasone) 12:41:18 CD T CPT-09964 Abx/Therapy Injection 16:33:09 CDT CPT-J0702 Celestone 12 mg (Betamethasone) 16:33:09 CD T CPT-85102 Allergy Admin 2 15:49:09 CDT CPT-73693 Allergy Admin 2 12:08:56 CDT CPT-40536 Allergy Admin 2 12:19:10 CDT CPT-82390 Allergy Admin 2 12:46:56 CDT CPT-85784 Allergy Admin 2 15:05:13 CDT CPT-68857 Allergy Admin 2 15:36:20 CDT CPT-86729 Allergy Admin 2 09:58:47 WELDER APPRENTICE ARC CPT-21399 Allergy Admin 2 12:18:06 WELDER APPRENTICE ARC CPT-76070 Allergy Admin 2 10:01:48 WELDER APPRENTICE ARC CPT-76340 Allergy Admin 2 12:17:53 WELDER APPRENTICE ARC CPT-99557 Allergy Admin 2 10:06:44 WELDER APPRENTICE ARC CPT-43607 Allergy Admin 2 10:13:04 WELDER APPRENTICE ARC CPT-27644 Venipuncture Draw Fee 10:09:07 WELDER APPRENTICE ARC CPT-31806 Bone Density 12:24:51 WELDER APPRENTICE ARC CPT-75091 Allergy Admin 2 11:29:41 WELDER APPRENTICE ARC CPT-28751 Allergy Admin 2 16:07:15 WELDER APPRENTICE ARC CPT-10269 Breathing Treatment 06:34:33 WELDER APPRENTICE ARC CPT-J0702 Celestone 12 mg (Betamethasone) 06:34:33 CS T CPT-00616 Abx/Therapy Injection 06:34:33 WELDER APPRENTICE ARC CPT-70707 Breathing Tx 11:07:33 WELDER APPRENTICE ARC CPT-82943 Allergy Admin 2 10:02:33 CDT CPT-47103 Allergy Admin 2 10:02:33 CDT CPT-98289 Allergy Admin 2 15:26:19 CDT CPT-65178 Administration single or combination vac cine inc oral 15:41:12 CDT CPT-71881 Influenza split virus > age 3 15:41:12 CDT
--- OUTSIDE RECORDS SUMMARY | 2020-09-15 14:42 | XMS REPORT | Clinical Summary ---
[...] Yang APRN Pruritus vulvae Active Ashley Yokum DATA ACQUISITION TECHNICIAN Screening mammogram V76.12 Resolved Ashley Yokum A PRN Other screening mammogram Sinusitis, acute maxillary 461.0 Inactive 7 Ashley Yokum DATA ACQUISITION TECHNICIAN Acute maxillary sinusitis Diarrhea, acute 787.91 Resolved Ashley Yokum DATA ACQUISITION TECHNICIAN Diarrhea Vaginal candidiasis 112.1 Resolved Ashley Yokum A PRN Candidiasis of vulva and vagina Accidental fall E888.9 Resolved Ashley Yokum DATA ACQUISITION TECHNICIAN Unspecified fall Contusion of left hand, initial encounter 923.20 Resol burak Ashley Yokum DATA ACQUISITION TECHNICIAN Contusion of hand(s) Contusion of right upper arm, subsequent encounter V58.89 201 09/14/21 Resolved Ashley Yokum DATA ACQUISITION TECHNICIAN Encounter for other specified a ftercare Ganglion cyst of left wrist 727.41 Active Derrick Younger MD Ganglion of joint Body Mass Index 31.0-31.9 Adult Resolved 2017 Ashley Yokum DATA ACQUISITION TECHNICIAN Body Mass Index 31.0-31.9, adult Plantar fasciitis 728.71 Active Ahsley Yokum DATA ACQUISITION TECHNICIAN Plantar fascial fibromatosis Bronchitis, acute 466.0 Inactive Ashley Yokum APR N Acute bronchitis Body Mass Index 30.0-30.9 Adult Resolved 2017 Ashley Yokum DATA ACQUISITION TECHNICIAN Body Mass Index 30.0-30.9, adult Allergic conjunctivitis, bilateral 372.14 Resolved 2 Ashley Yokum DATA ACQUISITION TECHNICIAN Other chronic allergic conjunctivitis Skin tags; irritated/inflammed 701.9 Resolved 11/10 Ashley Yokum DATA ACQUISITION TECHNICIAN Unspecified hypertrophic and atrophic co nditions of skin Body Mass Index 31.0-31.9 Adult Refinement 2017 Ashley Yokum DATA ACQUISITION TECHNICIAN Body Mass Index 31.0-31.9, adult BMI 30-30.9 Refinement Ashley Yokum DATA ACQUISITION TECHNICIAN Body Mass Index 31.0-31.9, adult BMI 31-31.9 Refinement Ashley Yokum DATA ACQUISITION TECHNICIAN Body Mass Index 31.0-31.9, adult BMI 32-32.9 Refinement Lois Faith RN Body Mass Index 31.0-31.9, adult BMI 31-31.9 Active Viviana Rubio APRN-Julieta Body Mass Index 31.0-31.9, adult Major depression, recurrent, moderate 296.32 Active Ashley Yokum DATA ACQUISITION TECHNICIAN Major depressive disorder, recurrent epi sode, moderate degree Obesity Class I (BMI 30-34.9) Active Ashley Y okum DATA ACQUISITION TECHNICIAN Obesity, unspecified Nausea and vomiting 787.01 Resolved Ashley Yokum A PRN Nausea with vomiting Gastroenteritis acute 558.9 Resolved Ashley Yokum DATA ACQUISITION TECHNICIAN Other and unspecified noninfectious gastroenteritis and colitis GERD 530.81 Active Ashley Yokum DATA ACQUISITION TECHNICIAN E sophageal reflux Joint pain 719.40 Resolved Ashley Yokum DATA ACQUISITION TECHNICIAN Pain in joint, site unspecified Preventive health care, adult V70.0 Inactive /06 Ashley Yokum DATA ACQUISITION TECHNICIAN Routine general medical examination at a health care facility Blood in urine 599.70 Resolved Ashley Yokum DATA ACQUISITION TECHNICIAN Hematuria, unspecified Other abnormal findings in urine Resolved Ashley Yokum DATA ACQUISITION TECHNICIAN Urinary tract infection 599.0 Inactive Ashley Yok um DATA ACQUISITION TECHNICIAN Urinary tract infection, site not specified Chafing of skin 709.8 Resolved Ashley Yokum DATA ACQUISITION TECHNICIAN Other specified disorders of skin Preventive care V70.0 Active Supriya Huston A Routine general medical examination at a health care facility Gynecological examination, routine V72.3 Inactive 2 Ashley Yokum DATA ACQUISITION TECHNICIAN Special investigations and e xaminations - Gynecological examination Near syncope 780.2 Resolved Ashley Yokum DATA ACQUISITION TECHNICIAN Syncope and collapse Lightheadedness 780.4 Resolved Ashley Yokum DATA ACQUISITION TECHNICIAN Dizziness and giddiness Headache 784.0 Resolved Ashley Yokum DATA ACQUISITION TECHNICIAN Headache Sore throat 462 Resolved Ashley Yokum DATA ACQUISITION TECHNICIAN Acute pharyngitis Sinusitis - acute 461.9 Resolved Ashley Yokum APR N Acute sinusitis, unspecified Tired all the time 780.79 Resolved Ashley Yokum AP RN Other malaise and fatigue Fatigue 780.79 Inactive Ashley Yokum DATA ACQUISITION TECHNICIAN Other malaise and fatigue ABNORMAL WEIGHT GAIN ICD-783.1 Inactive Wayne YANG ALLERGIC RHINITIS ICD-477.9 Inactive Lois Angelo mendieta DATA ACQUISITION TECHNICIAN SINUSITIS ICD-473.9 Inactive Lois Deric DATA ACQUISITION TECHNICIAN 2012 WHEEZING ICD-786.07 Inactive Lois Deric DATA ACQUISITION TECHNICIAN 2012 UPPER RESPIRATORY INFECTION, ACUTE ICD-465.9 I nactive Lois Deric DATA ACQUISITION TECHNICIAN NEED FOR DESENSITIZATION TO ALLERGENS ICD-V07.1 8 Inactive Ashley Yokum DATA ACQUISITION TECHNICIAN OBESITY ICD-278.00 Inactive Wayne YANG CONTACT DERMATITIS DUE TO POISON ARANZA ICD-692.6 Inactive Lois Leos DATA ACQUISITION TECHNICIAN NEED PROPHYLACTIC VACCINATION&INOCULATION FLU ICD-V04.81 Inactive Wayne Harms PA GERD ICD-530.81 Inactive Lois Leos DATA ACQUISITION TECHNICIAN 03/22 LONG-TERM (CURRENT) USE OF OTHER MEDICATIONS ICD-V58.69 6 Inactive Wayne Harms PA NECK PAIN ICD-723.1 Inactive Wayne Harms PA 06/15 DEGENERATIVE DISC DISEASE, CERVICAL SPINE ICD-722.4 Inactive Wayne Harms PA SKIN TAG ICD-701.9 Inactive Wayne Harms PA G E R D ICD-530.81 Inactive Lois Leos DATA ACQUISITION TECHNICIAN CANDIDIASIS OF SKIN AND NAILS ICD-112.3 Inacti ve Wayne Harms PA AFTERCARE FOLLOW SURGERY MUSCULOSKEL SYSTEM NEC ICD-V58.78 Inactive Wayne Harms PA PHARYNGITIS ICD-462 Inactive Wayne Harms PA 05/03 OTHER SCREENING MAMMOGRAM ICD-V76.12 Inactive Wayne Harms PA DYSPAREUNIA, MILD ICD-625.0 Inactive Wayne Harm s PA CONTACT DERMATITIS DUE TO POISON ARANZA ICD-692.6 Inactive Wayne Harms PA Sinusitis, chronic ICD-473.9 Inactive Ashley vallejo DATA ACQUISITION TECHNICIAN Myalgia ICD-729.1 Inactive Wayne Harms PA [...] PA Runny nose ICD-472.0 Inactive Ashley Yang DATA ACQUISITION TECHNICIAN Influenza like illness ICD-487.1 Inactive Wayne Moon PA Acute maxillary sinusitis ICD-461.0 Inactive Ashley Yokum DATA ACQUISITION TECHNICIAN Preventive health care ICD-V70.0 Inactive Jenny mo Yokum DATA ACQUISITION TECHNICIAN Well women exam ICD-V72.3 Inactive Ashley Yokum DATA ACQUISITION TECHNICIAN Screening mammogram ICD-V76.12 Inactive Ashley Yokum DATA ACQUISITION TECHNICIAN Sinusitis, acute maxillary ICD-461.0 Inactive Ashley Yokum DATA ACQUISITION TECHNICIAN Diarrhea, acute ICD-787.91 Inactive Ashley Merazu m DATA ACQUISITION TECHNICIAN Vaginal candidiasis ICD-112.1 Inactive Ashley Y abdonum DATA ACQUISITION TECHNICIAN Accidental fall ICD-E888.9 Inactive Ashley Yoku m DATA ACQUISITION TECHNICIAN Contusion of left hand, initial encounter ICD-923.20 Inactive Ashley Yokum DATA ACQUISITION TECHNICIAN Contusion of right upper arm, subsequent encounter ICD-V58.89 Inactive Ashley Yokum DATA ACQUISITION TECHNICIAN Body Mass Index 31.0-31.9 Adult Inac tive Ashley Yokum DATA ACQUISITION TECHNICIAN Bronchitis, acute ICD-466.0 Inactive Ashley Yok um DATA ACQUISITION TECHNICIAN Body Mass Index 30.0-30.9 Adult Inac tive Ashley Yokum DATA ACQUISITION TECHNICIAN Allergic conjunctivitis, bilateral ICD-372.14 I nactive Ashley Yokum DATA ACQUISITION TECHNICIAN Skin tags; irritated/inflammed ICD-701.9 Inact rancho Ashley Yokum DATA ACQUISITION TECHNICIAN Nausea and vomiting ICD-787.01 Inactive Ashley Yokum DATA ACQUISITION TECHNICIAN Gastroenteritis acute ICD-558.9 Inactive Conchis hi Yokum DATA ACQUISITION TECHNICIAN Joint pain ICD-719.40 Inactive Ashley Yokum APR N Preventive health care, adult ICD-V70.0 Inacti ve Ashley Yokum DATA ACQUISITION TECHNICIAN Blood in urine ICD-599.70 Inactive Ashley Yokum DATA ACQUISITION TECHNICIAN Other abnormal findings in urine [place] ctive Ashley Yokum DATA ACQUISITION TECHNICIAN Urinary tract infection ICD-599.0 Inactive K athi Yokum DATA ACQUISITION TECHNICIAN Chafing of skin ICD-709.8 Inactive Ashley Yokum DATA ACQUISITION TECHNICIAN Gynecological examination, routine ICD-V72.3 I nactive Ashley Yokum DATA ACQUISITION TECHNICIAN Near syncope ICD-780.2 Inactive Ashley Yokum AP RN Lightheadedness ICD-780.4 Inactive Ashley Yokum DATA ACQUISITION TECHNICIAN Headache ICD-784.0 Inactive Ashley Yokum DATA ACQUISITION TECHNICIAN 2020 Sore throat ICD-462 Inactive Ashley Yokum DATA ACQUISITION TECHNICIAN 02/17/17 Sinusitis - acute ICD-461.9 Inactive Ashley Yok um DATA ACQUISITION TECHNICIAN Tired all the time ICD-780.79 Inactive Ashley gutierrez DATA ACQUISITION TECHNICIAN Fatigue ICD-780.79 Inactive Ashley Yang DATA ACQUISITION TECHNICIAN 2020 Medication List Medication Instructions Start Date Stop Date Generic Name NDC Status Provider Patient Instruction PHENTERMINE HCL 37.5 MG ORAL TABLET 1/2 qAM, can incre ase to 1 qAM - take 30 min before or 2 hrs after breakfast PHENTERMINE HCL 33720 075593 Active Ashley Yang APRN Active MUCINEX D 60-600 MG ORAL TABLET EXTENDED RELEASE 12 HO UR 1 po BID PRN Congestion PSEUDOEPHEDRINE-GUAIFENESIN 55627264816 Active Ashley Yang APRN Active ZYRTEC ALLERGY 10 MG ORAL CAPSULE 1qd CETIR IZINE HCL 37267048425 No Longer Active Ashley Yang APRN Active HAIR, SKIN, NAILS VITAMINS take 1 tab by mouth 2x a day HAIR, SKIN, NAILS VITAMINS Active Ashley Yang APRN Active CENTRUM SILVER FOR WOMEN OVER 50 1 tab by mouth by day. CENTRUM SILVER FOR WOMEN OVER 50 Active Ashley Yang APRN Active VITAMIN D3 1000 UNIT ORAL CAPSULE 1 po qd CH OLECALCIFEROL 66900525608 Active Ashley Yang APRN Active PREDNISONE 20 MG ORAL TABLET Take 2 tablets by mouth d aily for 2 days then 1 tablet daily for 2 days. PREDNISONE 77122652487 No Longer Active Ashley Yang DATA ACQUISITION TECHNICIAN Active MELOXICAM 15 MG ORAL TABLET TAKE 1 TABLET BY MOUTH IN THE MORNING 2 MELOXICAM 49210877400 Active LARRY Murillo Active CLARITIN 10 MG ORAL TABLET 1 tablet by mouth daily as needed for allergies LORATADINE 46956186857 Active Supriya JUAREZ Active SIMVASTATIN 40 MG ORAL TABLET TAKE 1 TABLET BY MOUTH ONCE DA JAVON AT BEDTIME SIMVASTATIN 47149388684 Active LARRY Murillo Active [id number]-[id number]-YCIM ORAL TABLET MULT IPLE MINERALS 57807467511 Active Lois Faith, RN Active SERTRALINE HCL 100 MG ORAL TABLET Take 1 tablet by mouth once da javon SERTRALINE HCL 19365618231 Active Marcy Medina, RMA A ctive REGLAN 10 MG ORAL TABLET 1 po qid for bowels 3 METOCLOPRAMIDE HCL 96904185372 No Longer Active Ashley Yokum DATA ACQUISITION TECHNICIAN A ctive ADK 3531-3621-873 UNIT-MCG ORAL CAPSULE 1 daily VITAMINS A D K 42522265017 Active Ashley Yokum DATA ACQUISITION TECHNICIAN Active B-12 2500 MCG ORAL TABLET 1 daily CYANOCOBAL HUNT 33611702584 No Longer Active Ashley Yokum DATA ACQUISITION TECHNICIAN Active ESTRADIOL 2 MG TABS Take 1 tablet by mouth once daily ESTRADIOL 52845242780 Active Shanelle Rivera RN Active MACROBID 100 MG ORAL CAPSULE 1 cap by mouth twice daily NITROFURANTOIN MONOHYD MACRO 56149931310 No Longer Active Ashley Yokum DATA ACQUISITION TECHNICIAN Active FISH OIL + D3 8862-4541 MG-UNIT ORAL CAPSULE 1 dailly 4 FISH OIL-CHOLECALCIFEROL 90609552927 Active Ashley Yokum DATA ACQUISITION TECHNICIAN Acti ve PROAIR HFA 108 (90 BASE) MCG/ACT INHALATION AEROSOL SO LUTION 2 puffs four times a day as needed ALBUTEROL SULFATE 78513840720 No Long er Active Ashley Yokum DATA ACQUISITION TECHNICIAN Active ZITHROMAX Z-SANJANA 250 MG ORAL TABLET Take 2 tablets toda y and 1 each day till gone AZITHROMYCIN 00367998619 No Longer Active Ashley Yokum DATA ACQUISITION TECHNICIAN Active POLYTRIM 98217-6.1 UNIT/ML-% OPHTHALMIC SOLUTION 1 gtt to affected eye q3h x 7 days POLYMYXIN B-TRIMETHOPRIM 13280031027 No Longer Active Ashley Yokum DATA ACQUISITION TECHNICIAN Active IBUPROFEN 200 MG ORAL TABLET Take 3 tablets every 6hrs 201 09/17/15 IBUPROFEN 56273186053 No Longer Active Ashley Yokum DATA ACQUISITION TECHNICIAN Active DIFLUCAN 150 MG ORAL TABLET Take one tablet today and repeat in 72 hours FLUCONAZOLE 92405761155 No Longer Active Derrick cardenas MD Active DIFLUCAN 150 MG ORAL TABLET 1 by mouth for yeast 03/03 FLUCONAZOLE 80246842113 No Longer Active Ashley Yang DATA ACQUISITION TECHNICIAN Active AUGMENTIN 875-125 MG ORAL TABLET Take one tablet twice a day with food AMOXICILLIN-POT CLAVULANATE 01728287968 No Longer Act rancho Ashley Yang DATA ACQUISITION TECHNICIAN Active CALCIUM 600 + D 600-200 MG-UNIT ORAL TABLET Take one daily CALCIUM CARB-CHOLECALCIFEROL 58807359824 No Longer Active Ashley Yang APRN Active FLONASE 50 MCG/ACT NASAL SUSPENSION 1 spray each nostr il twice daily for allergies and runny nose FLUTICASONE PROPIONATE 38652196217 No Longer Active Ashley Yang APRN Active CLARITIN-D 12 HOUR 5-120 MG ORAL TABLET EXTENDED RELEA SE 12 HOUR Take one tablet BID as needed for allergies LORATADINE-PSEUDOEP HEDRINE 48463445841 No Longer Active Bethmarquez Turner ADDICTION PSYCHIATRIST Active AMOXICILLIN-POT CLAVULANATE 875-125 MG ORAL TABLET 1 pill by mouth twice daily AMOXICILLIN-POT CLAVULANATE 78902516605 No Longer Act rancho Ashley Yang DATA ACQUISITION TECHNICIAN Active AMOXICILLIN 500 MG ORAL CAPSULE Take 1 capsule by mout h three times a day X 10 days AMOXICILLIN 98763743253 No Longer Active Wayne H arms PA Active PROBIOTIC DAILY ORAL CAPSULE Take one daily PROBIO TIC PRODUCT 36539783941 Active Wayne Harms PA Active TYLENOL 325 MG ORAL TABLET Take 2 every 6hrs prn A CETAMINOPHEN 61079340839 Active Wayne Harms PA Active ACETAMINOPHEN 500 MG ORAL TABLET prn RICH TAMINOPHEN 48711000149 No Longer Active Wayne Harms PA Active CLARITIN-D 12 HOUR 5-120 MG ORAL TABLET EXTENDED RELEA SE 12 HOUR Take one tablet bid LORATADINE-PSEUDOEPHEDRINE 77155341844 No Longe r Active Wayne Harms PA Active MOBIC 15 MG ORAL TABLET 1 tablet by mouth daily in am with PPI 2 MELOXICAM 90172405026 No Longer Active Wayne Harms PA Acti ve HYDROCORTISONE 2.5 % EXTERNAL CREAM Apply three times a day to affected area HYDROCORTISONE 60820452174 No Longer Active Wayne Harms PA Active VITAMIN D3 1000 UNIT ORAL TABLET Take two daily CHOLECALCIFEROL 30672860179 No Longer Active Wayne Harms PA Active PROBIOTIC ORAL CAPSULE Take one daily PROBIOTIC PRODUCT 81766056997 No Longer Active Wayne Harms PA Active GREEN TEA SLIM ORAL TABLET Take one daily MIS NATURAL PRODUCTS 39732543711 No Longer Active Wayne Harms PA Active BENZONATATE 200 MG ORAL CAPSULE Take one capsule three times a d ay BENZONATATE 51909675986 No Longer Active Wayne Harms PA Act rancho ZITHROMAX Z-SANJANA 250 MG ORAL TABLET 2 today, then 1 daily for 4 d ays AZITHROMYCIN 51133763168 No Longer Active Wayne Harms PA Ac tive ZITHROMAX 250 MG ORAL TABLET 2 po today, then 1 po q days 2-5 20 31/03/18 AZITHROMYCIN 85676919630 No Longer Active Beth Turner ADDICTION PSYCHIATRIST Active OMEPRAZOLE 20 MG ORAL CAPSULE DELAYED RELEASE [address] [facility] daily OMEPRAZOLE 89285751767 Active Supriya Huston RMA Active ZITHROMAX Z-SANJANA 250 MG ORAL TABLET 2x1day,[id number] 2014 AZITHROMYCIN 11739620801 No Longer Active Wayne Harms PA Active FISH OIL 1200 MG ORAL CAPSULE One daily prn OME GA-3 FATTY ACIDS 87642510588 No Longer Active Wayne Harms PA Active CEPHALEXIN 250 MG ORAL CAPSULE Take one tablet qid 201 05/25/29 CEPHALEXIN 30844013245 No Longer Active Wayne Harms PA Active VITAMIN D3 1000 UNIT ORAL TABLET 1qd CHOLEC ALCIFEROL 99721736668 No Longer Active Wayne Harms PA Active B-12 2000 MCG ORAL TABLET 1qd CYANOCOBALAMI N 45743836576 No Longer Active Wayne Harms PA Active ACIPHEX 20 MG ORAL TABLET DELAYED RELEASE 1qd 10/28 RABEPRAZOLE SODIUM 17745623043 No Longer Active Wayne Harms PA Active HYDROCORTISONE 2.5 % EXTERNAL CREAM apply 3-4 times a day to affected area HYDROCORTISONE 73025494072 No Longer Active Wayne Harms PA Active MUCINEX 600 MG ORAL TABLET EXTENDED RELEASE 12 HOUR 2qd GUAIFENESIN 33638929787 No Longer Active Wayne Harms PA Active TUSSIONEX PENNKINETIC ER 10-8 MG/5ML ORAL SUSPENSION E XTENDED RELEASE 5ml po q12hr PRN Cough HYDROCOD POLST-CHLORPHEN POLST 5 5839771715 No Longer Active Wayne Harms PA Active ZITHROMAX 250 MG ORAL TABLET 2 po today, then 1 po q days 2-5 20 26/06/21 AZITHROMYCIN 17518054784 No Longer Active Wayne Harms PA Ac tive CLARITIN 10 MG ORAL TABLET one tablet daily THEO ATADINE 09362768604 No Longer Active Wayne Harms PA Active FLAGYL 500 MG ORAL TABLET 1 tablet by mouth three times daily 20 28/05/03 METRONIDAZOLE 21766388023 No Longer Active Wayne Harms PA A ctive CHERATUSSIN AC 100-10 MG/5ML ORAL SYRUP one teaspoon qid. 9 GUAIFENESIN-CODEINE 28759529951 No Longer Active Wayne Harms PA Act rancho VITAMIN D 1000 UNIT ORAL TABLET 1qd CHOLECA LCIFEROL 26770154876 No Longer Active Wayne Harms PA Active CYMBALTA 60 MG ORAL CAPSULE DELAYED RELEASE PARTICLES 1 cap by mouth daily DULOXETINE HCL 04192855419 No Longer Active Wayne Harms PA Active AMOXICILLIN 500 MG ORAL CAPSULE 2 caps tid for 10days AMOXICILLIN 85421613959 No Longer Active Wayne Harms PA Active CALCIUM + D 600-200 MG-UNIT TABS Take one by mouth daily CALCIUM CARBONATE-VITAMIN D 00565712443 No Longer Active Wayne Harms PA Active CENTRUM SILVER ADULT 50+ ORAL TABLET 1qd 2013 MULTIPLE VITAMINS-MINERALS 33426290975 No Longer Active Wayne Harms PA Active VENLAFAXINE HCL 75 MG ORAL TABLET 1tid VE NLAFAXINE HCL 28412541871 No Longer Active Wayne Harms PA Active CLARITIN 10 MG ORAL TABLET 1 tablet by mouth daily as needed for allergies LORATADINE 97851561096 No Longer Active Wayne Harms PA Acti ve HYDROCORTISONE 2.5 % EXTERNAL CREAM Apply four times a day to af fected area HYDROCORTISONE 95642200597 No Longer Active Wayne Harms PA Active ZITHROMAX 250 MG ORAL TABLET 2 po today, then 1 po q days 2-5 20 26/02/30 AZITHROMYCIN 08912842577 No Longer Active Wayne Harms PA Ac tive ZITHROMAX 250 MG ORAL TABLET 2 po today, then 1 po q days 2-5 20 27/02/16 AZITHROMYCIN 64883876265 No Longer Active Wayne Harms PA Ac tive CYMBALTA 30 MG ORAL CAPSULE DELAYED RELEASE PARTICLES 3 caps daily DULOXETINE HCL 09758275446 No Longer Active Wayne Harms PA Active CYMBALTA 60 MG ORAL CAPSULE DELAYED RELEASE PARTICLES one tablet daily, takes 30mg. with 60mg. to make 90 mg. DULOXETINE HCL 07322400679 No Longer Active Wayne Harms PA Active CYMBALTA 30 MG ORAL CAPSULE DELAYED RELEASE PARTICLES 1 daily wi th 60mg DULOXETINE HCL 67418502087 No Longer Active Wayne Harms PA Active ZITHROMAX 250 MG ORAL TABLET 2 po today, then 1 po q days 2-5 20 26/12/21 AZITHROMYCIN 43487602810 No Longer Active Ismael YANG Active ALPRAZOLAM 0.25 MG ORAL TABLET 1-2 tablet by mouth up to three times daily as needed ALPRAZOLAM 34709865131 Active Shanelle Rivera RN Act rancho PREDNISONE 20 MG ORAL TABLET 3tab x 2days,2tab x 2days ,1tab x 2days,1/2tab x 2days PREDNISONE 10079577471 No Longer Active Wayne Vera jarvis PA Active PREMARIN 0.625 MG ORAL TABLET Take one by mouth daily ESTROGENS CONJUGATED 90705920108 No Longer Active Wayne Harms PA Active ZITHROMAX 250 MG ORAL TABLET 2 po today, then 1 po q days 2-5 20 26/06/19 AZITHROMYCIN 36336531838 No Longer Active Nereyda Lucke Activ e OMEGA-3 1000 MG ORAL CAPSULE 2qd OMEGA-3 FA TTY ACIDS 18336690113 No Longer Active Wayne Harms PA Active BENADRYL ITCH STOPPING 1-0.1 % EXTERNAL CREAM prn DIPHENHYDRAMINE- ZINC ACETATE 91888543976 No Longer Active Wayne Harms PA Active LOTRISONE 1-0.05 % EXTERNAL CREAM Apply bid CLOTRIMAZOLE-BETAMETHASONE 94928291908 No Longer Active Wayne Harms PA Active ZITHROMAX Z-SANJANA 250 MG ORAL TABLET take as directed 20 26/04/19 AZITHROMYCIN 17326883653 No Longer Active Wayne Harms PA Active NYSTATIN 745962 UNIT/GM EXTERNAL POWDER Apply to affected areas BID NYSTATIN 55951918049 No Longer Active Wayne Harms PA Acti ve BENADRYL 25 MG ORAL CAPSULE prn DIPHENHYDRAMINE HCL 38143206023 Active Wayne Harms PA Active LOTRISONE 1-0.05 % EXTERNAL CREAM apply twice a day 20 25/02/17 CLOTRIMAZOLE-BETAMETHASONE 03938187028 No Longer Active Wayne Harms PA Active HYDROCODONE-ACETAMINOPHEN 5-325 MG ORAL TABLET 1-2 every 4hr s prn pain HYDROCODONE-ACETAMINOPHEN 50670465818 No Longer Activ e Wayne Harms PA Active VICODIN 5-300 MG ORAL TABLET 1-2 tabs every 6hrs as needed for p ain HYDROCODONE-ACETAMINOPHEN 30142612807 No Longer Active Wayne Harms PA Active BENADRYL 25 MG ORAL CAPSULE 1prn DIPHENHYDRA MINE HCL 18603207081 No Longer Active Jillina Frazell DATA ACQUISITION TECHNICIAN Active ROBITUSSIN DM 100-10 MG/5ML ORAL SYRUP 2 teaspoons four times a day DEXTROMETHORPHAN-GUAIFENESIN 14639398572 No Longer Active Jillina Frazell DATA ACQUISITION TECHNICIAN Active ACIPHEX 20 MG ORAL TABLET DELAYED RELEASE Take one by mouth daily RABEPRAZOLE SODIUM 27381553610 No Longer Active Jillina Frazell DATA ACQUISITION TECHNICIAN Active TUMS 500 MG ORAL TABLET CHEWABLE prn SADIQ CIUM CARBONATE ANTACID 04466400228 No Longer Active Jillina Frazell DATA ACQUISITION TECHNICIAN Active PEPTO-BISMOL 524 MG/30ML ORAL SUSPENSION prn 02/26 BISMUTH SUBSALICYLATE 61026361531 No Longer Active Jillina Frazell DATA ACQUISITION TECHNICIAN Active BACTRIM DS 800-160 MG ORAL TABLET 1bid SULFAMETHOXAZOLE-TRIMETHOPRIM 55813116458 No Longer Active Beth Naff ADDICTION PSYCHIATRIST Active GAVISCON EXTRA RELIEF FORMULA CHEW prn A LUM HYDROXIDE-MAG CARBONATE CHEW 50195948891 Active Wayne Harms PA Active DIFLUCAN 150 MG ORAL TABLET 1stat FLUCONAZOL E 75191290018 No Longer Active Wayne Harms PA Active AUGMENTIN 875-125 MG ORAL TABLET 1 tab by mouth twice daily with food AMOXICILLIN-POT CLAVULANATE 63722935936 No Longer Act rancho Wayne Harms PA Active FLUTICASONE PROPIONATE 50 MCG/ACT NASAL SUSPENSION 1 t o 2 sprays each nostril twice a day FLUTICASONE PROPIONATE 17878291020 No Lo nger Active Wayne Harms PA Active HYDROCORTISONE 2.5 % EXTERNAL CREAM apply 2-4 times a day, a s directed, prn HYDROCORTISONE 38013497265 No Longer Active Wayne Harms PA Active ZITHROMAX Z-SANJANA 250 MG ORAL TABLET A ZITHROMYCIN 71081844563 No Longer Active Wayne Harms PA Active SIMVASTATIN 40 MG ORAL TABLET one tablet daily SIMVASTATIN 75042549554 No Longer Active Misty Yoo LPN Active LOVASTATIN 40 MG ORAL TABLET Take one by mouth daily 12/11 LOVASTATIN 38022700874 No Longer Active Misty Yoo ADDICTION PSYCHIATRIST Active PREDNISONE 20 MG ORAL TABLET 2 PO qd x 2d, 1 PO qd x 2d, 1/2 PO qd x 2d PREDNISONE 24990214211 No Longer Active Ismael silva PA Active ZITHROMAX 250 MG ORAL TABLET two tablets now and one daily x 4 d ays AZITHROMYCIN 35758405977 No Longer Active Misty Yoo ADDICTION PSYCHIATRIST Active ZOLPIDEM TARTRATE 10MG TABS (ZOLPIDEM TARTRATE) 1 at bedtime as needed Active Supriya Betzaida RMA Active CLOBETASOL PROPIONATE 0.05 % EXTERNAL CREAM apply as directed CLOBETASOL PROPIONATE 07474400967 No Longer Active Wayne Harms PA A ctive CYMBALTA 30 MG ORAL CAPSULE DELAYED RELEASE PARTICLES takes 90mg qod alt with 60mg DULOXETINE HCL 31639519577 No Longer Active Wayne Harm s PA Active ZITHROMAX 250 MG ORAL TABLET 2 po today, then 1 po q days 2-5 20 12/24/14 AZITHROMYCIN 55743360461 No Longer Active Wayne Harms PA Ac tive TRIAMCINOLONE ACETONIDE 0.1 % EXTERNAL CREAM apply qid TRIAMCINOLONE ACETONIDE 65738432352 No Longer Active Wayne Harms PA Active ALPRAZOLAM 0.25 MG ORAL TABLET 1 tab three times a day 201 02/23/14 ALPRAZOLAM 36682860794 No Longer Active Wayne Harms PA Active ZOLPIDEM TARTRATE 5 MG ORAL TABLET 1 at bedtime as needed ZOLPIDEM TARTRATE 81477725779 No Longer Active Beth Turner ADDICTION PSYCHIATRIST Active ALPRAZOLAM 0.25 MG ORAL TABLET 1 tab three times a day ALPRAZOLAM 0.25 MG ORAL TABLET 016255 ALPRAZOLAM Inactive TRIAMCINOLONE ACETONIDE 0.1 % EXTERNAL CREAM apply qid TRIAMCINOLONE ACETONIDE 0.1 % EXTERNAL CREAM 9072333 TRIAMCINOLONE A CETONIDE Inactive CYMBALTA 30 MG ORAL CAPSULE DELAYED RELEASE PARTICLES takes 90mg qod alt with 60mg CYMBALTA 30 MG ORAL CAPSULE DELAYED RELEA SE PARTICLES 705579 DULOXETINE HCL Inactive CLOBETASOL PROPIONATE 0.05 % EXTERNAL CREAM apply as directed CLOBETASOL PROPIONATE 0.05 % EXTERNAL CREAM 540137 CLOBETASOL PROPI KELVIN Inactive LOVASTATIN 40 MG ORAL TABLET Take one by mouth daily 2 LOVASTATIN 40 MG ORAL TABLET 455258 LOVASTATIN Inactive ZITHROMAX Z-SANJANA 250 MG ORAL TABLET 03/03 ZITHROMAX Z-SANJANA 250 MG ORAL TABLET 751196 AZITHROMYCIN Inactive HYDROCORTISONE 2.5 % EXTERNAL CREAM apply 2-4 times a day, a s directed, prn HYDROCORTISONE 2.5 % EXTERNAL CREAM [id number] HYDRO CORTISONE Inactive FLUTICASONE PROPIONATE 50 MCG/ACT NASAL SUSPENSION 1 t o 2 sprays each nostril twice a day FLUTICASONE PROPIONA TE 50 MCG/ACT NASAL SUSPENSION [id number] FLUTICASONE PROPIONATE Inactive AUGMENTIN 875-125 MG ORAL TABLET 1 tab by mouth twice daily with food AUGMENTIN 875-125 MG ORAL TABLET AMOXICIL BLOSSOM-POT CLAVULANATE Inactive DIFLUCAN 150 MG ORAL TABLET 1stat DIFLUCAN 150 MG ORAL TABLET 597531 FLUCONAZOLE Inactive PEPTO-BISMOL 524 MG/30ML ORAL SUSPENSION prn PEPTO-BISMOL 524 MG/30ML ORAL SUSPENSION BISMUTH SUBSALICYLATE Inactive TUMS 500 MG ORAL TABLET CHEWABLE prn TUMS 500 MG ORAL TABLET CHEWABLE 937602 CALCIUM CARBONATE ANTACID Inactive ACIPHEX 20 MG ORAL TABLET DELAYED RELEASE Take one by mouth daily ACIPHEX 20 MG ORAL TABLET DELAYED RELEASE 862888 RABEPRAZOLE SODIUM Inactive ROBITUSSIN DM 100-10 MG/5ML [...] pain HYDROCODONE-ACETAMINOPHEN 5-325 MG ORAL TABLET 8 23090 HYDROCODONE-ACETAMINOPHEN Inactive LOTRISONE 1-0.05 % EXTERNAL CREAM apply twice a day 20 25/02/17 LOTRISONE 1- 0.05 % EXTERNAL CREAM CLOTRIMAZOLE-BETAMETHASONE Inactive NYSTATIN 805571 UNIT/GM EXTERNAL POWDER Apply to affected areas BID NYSTATIN 383869 UNIT/GM EXTERNAL POWDER 095057 NYSTATIN Inactive ZITHROMAX Z-SANJANA 250 MG ORAL TABLET take as directed 20 26/04/19 ZITHROMAX Z-SANJANA 250 MG ORAL TABLET 433257 AZITHROMYCIN Inact ranch[place] LOTRISONE 1-0.05 % EXTERNAL CREAM Apply bid LOTRISONE 1- 0.05 % EXTERNAL CREAM CLOTRIMAZOLE-BETAMETHASONE Inactive BENADRYL ITCH STOPPING 1-0.1 % EXTERNAL CREAM prn BENADRYL ITCH STOPPING 1-0.1 % EXTERNAL CREAM DIPHENHYDRAMINE-ZINC ACETATE Inactive OMEGA-3 1000 MG ORAL CAPSULE 2qd OMEGA-3 1000 MG ORAL CAPSULE 195322 OMEGA-3 FATTY ACIDS Inactive ZITHROMAX 250 MG ORAL TABLET 2 po today, then 1 po q days 2-5 20 26/06/19 ZITHROMAX 250 MG ORAL TABLET 153410 AZITHROMYCIN Mara ctive PREMARIN 0.625 MG ORAL TABLET Take one by mouth daily PREMARIN 0.625 MG ORAL TABLET ESTROGENS CONJUGATED Inactive PREDNISONE 20 MG ORAL TABLET 3tab x 2days,2tab x 2days ,1tab x 2days,1/2tab x 2days PREDNISONE 20 MG ORAL TABLET 016753 PREDNIS ONE Inactive CYMBALTA 30 MG ORAL CAPSULE DELAYED RELEASE PARTICLES 1 daily wi th 60mg CYMBALTA 30 MG ORAL CAPSULE DELAYED RELEASE PARTICLES 722291 DULOXETINE HCL Inactive CYMBALTA 60 MG ORAL CAPSULE DELAYED RELEASE PARTICLES one tablet daily, takes 30mg. with 60mg. to make 90 mg. CYMBALTA 60 MG ORAL CAPSULE DELAYED RELEASE PARTICLES 295246 DULOXETINE HCL Inacti ve CYMBALTA 30 MG ORAL CAPSULE DELAYED RELEASE PARTICLES 3 caps daily CYMBALTA 30 MG ORAL CAPSULE DELAYED RELEASE PARTICLES 932059 DULOXE ROSANNE HCL Inactive HYDROCORTISONE 2.5 % EXTERNAL CREAM Apply four times a day to af fected area HYDROCORTISONE 2.5 % EXTERNAL CREAM 802755 HYDROCORTISO NE Inactive CLARITIN 10 MG ORAL TABLET 1 tablet by mouth daily as needed for allergies CLARITIN 10 MG ORAL TABLET 518282 LORATADINE Inact rancho VENLAFAXINE HCL 75 MG ORAL TABLET 1tid VENLAFAXINE HCL 75 MG ORAL TABLET 116205 VENLAFAXINE HCL Inactive CENTRUM SILVER ADULT 50+ ORAL TABLET 1qd 2013 CENTRUM SILVER ADULT 50+ ORAL TABLET MULTIPLE VITAMINS-MINERALS Inactive CALCIUM + D 600-200 MG-UNIT TABS Take one by mouth daily CALCIUM + D 600-200 MG-UNIT TABS CALCIUM CARBONATE-VITAMIN D Inactive AMOXICILLIN 500 MG ORAL CAPSULE 2 caps tid for 10days AMOXICILLIN 500 MG ORAL CAPSULE 182423 AMOXICILLIN Inactive CYMBALTA 60 MG ORAL CAPSULE DELAYED RELEASE PARTICLES 1 cap by mouth daily CYMBALTA 60 MG ORAL CAPSULE DELAYED RELE ASE PARTICLES 350047 DULOXETINE HCL Inactive VITAMIN D 1000 UNIT ORAL TABLET 1qd 4 VITAMIN D 1000 UNIT ORAL TABLET CHOLECALCIFEROL Inactive CHERATUSSIN AC 100-10 MG/5ML ORAL SYRUP one teaspoon qid. 9 CHERATUSSIN AC 100-10 MG/5ML ORAL SYRUP GUAIFENESIN-CODEINE Inactive FLAGYL 500 MG ORAL TABLET 1 tablet by mouth three times daily 20 28/05/03 FLAGYL 500 MG ORAL TABLET 078662 METRONIDAZOLE Inacti ve CLARITIN 10 MG ORAL TABLET one tablet daily CLARITIN 10 MG ORAL TABLET 259739 LORATADINE Inactive TUSSIONEX PENNKINETIC ER 10-8 MG/5ML [...] affected area HYDROCORTISONE 2.5 % EXTERNAL CREAM 766427 HYDRO CORTISONE Inactive ACIPHEX 20 MG ORAL TABLET DELAYED RELEASE 1qd ACIPHEX 20 MG ORAL TABLET DELAYED RELEASE 188344 RABEPRAZOLE SODIUM Inactive B-12 2000 MCG ORAL TABLET 1qd B-12 2000 MCG ORAL TABLET CYANOCOBALAMIN Inactive VITAMIN D3 1000 UNIT ORAL TABLET 1qd VITAMIN D3 1000 UNIT ORAL TABLET CHOLECALCIFEROL Inactive CEPHALEXIN 250 MG ORAL CAPSULE Take one tablet qid 201 05/25/29 CEPHALEXIN 250 MG ORAL CAPSULE 608576 CEPHALEXIN Inactive FISH OIL 1200 MG ORAL CAPSULE One daily prn FISH OIL 1200 MG ORAL CAPSULE OMEGA-3 FATTY ACIDS Inactive ZITHROMAX Z-SANJANA 250 MG ORAL TABLET 2x1day,7p3mijt 2014 ZITHROMAX Z-SANJANA 250 MG ORAL TABLET 195670 AZITHROMYCIN Inact ranch[place] BENZONATATE 200 MG ORAL CAPSULE Take one capsule three times a d ay BENZONATATE 200 MG ORAL CAPSULE 206267 BENZONATATE Inactive GREEN TEA SLIM ORAL TABLET Take one daily GREEN TEA SLIM ORAL TABLET MISC NATURAL PRODUCTS Inactive PROBIOTIC ORAL CAPSULE Take one daily PROBIOTIC ORAL CAPSULE 5390880 PROBIOTIC PRODUCT Inactive VITAMIN D3 1000 UNIT ORAL TABLET Take two daily 05/05 VITAMIN D3 1000 UNIT ORAL TABLET CHOLECALCIFEROL Inactive HYDROCORTISONE 2.5 % EXTERNAL CREAM Apply three times a day to affected area HYDROCORTISONE 2.5 % EXTERNAL CREAM 971504 HYDRO CORTISONE Inactive MOBIC 15 MG ORAL TABLET 1 tablet by mouth daily in am with PPI 2 MOBIC 15 MG ORAL TABLET 302959 MELOXICAM Inactive CLARITIN-D 12 HOUR 5-120 MG ORAL TABLET EXTENDED RELEA SE 12 HOUR Take one tablet bid CLARITIN-D 12 HOUR 5 -120 MG ORAL TABLET EXTENDED RELEASE 12 HOUR LORATADINE-PSEUDOEPHEDRINE Inactive ACETAMINOPHEN 500 MG ORAL TABLET prn ACETAMINOPHEN 500 MG ORAL TABLET 116775 ACETAMINOPHEN Inactive CLARITIN-D 12 HOUR 5-120 MG [...] yeast 03/03 DIFLUCAN 150 MG ORAL TABLET 419960 FLUCONAZOLE Inactive DIFLUCAN 150 MG ORAL TABLET Take one tablet today and repeat in 72 hours DIFLUCAN 150 MG ORAL TABLET 659954 FLUCONAZOLE Inactive IBUPROFEN 200 MG ORAL TABLET Take 3 tablets every 6hrs IBUPROFEN 200 MG ORAL TABLET 945125 IBUPROFEN Inactive ZITHROMAX Z-SANJANA 250 MG ORAL TABLET Take 2 tablets toda y and 1 each day till gone ZITHROMAX Z-SANJANA 250 MG ORAL TABLET 085533 A ZITHROMYCIN Inactive PROAIR HFA 108 (90 [...] bowels 3 REGLAN 10 MG ORAL TABLET 311137 METOCLOPRAMIDE HCL Inactive PREDNISONE 20 MG ORAL TABLET Take 2 tablets by mouth d aily for 2 days then 1 tablet daily for 2 days. PREDNISONE 20 MG ORAL T ABLET 189666 PREDNISONE Inactive ZYRTEC ALLERGY 10 MG ORAL CAPSULE 1qd ZYRTEC ALLERGY 10 MG ORAL CAPSULE CETIRIZINE HCL Inactive ZITHROMAX 250 MG ORAL TABLET 2 po today, then 1 po q days 2-5 20 12/24/14 ZITHROMAX 250 MG ORAL TABLET 060070 AZITHROMYCIN Mara ctive ZITHROMAX 250 MG ORAL TABLET two tablets now and one daily x 4 d ays ZITHROMAX 250 MG ORAL TABLET 589704 AZITHROMYCIN Mara ctive PREDNISONE 20 MG ORAL TABLET 2 PO qd x 2d, 1 PO qd x 2d, 1/2 PO qd x 2d PREDNISONE 20 MG ORAL TABLET 655024 PREDNISONE Inactive SIMVASTATIN 40 MG ORAL TABLET one tablet daily SIMVASTATIN 40 MG ORAL TABLET 581541 SIMVASTATIN Inactive BACTRIM DS 800-160 MG ORAL TABLET 1bid BACTRIM DS 800-160 MG ORAL TABLET 920426 SULFAMETHOXAZOLE-TRIMETHOPRIM Inactive ZITHROMAX 250 MG ORAL TABLET 2 po today, then 1 po q days 2-5 20 26/12/21 ZITHROMAX 250 MG ORAL TABLET 001415 AZITHROMYCIN Mara ctive ZITHROMAX 250 MG ORAL TABLET 2 po today, then 1 po q days 2-5 20 27/02/16 ZITHROMAX 250 MG ORAL TABLET 967759 AZITHROMYCIN Mara ctive ZITHROMAX 250 MG ORAL TABLET 2 po today, then 1 po q days 2-5 20 26/02/30 ZITHROMAX 250 MG ORAL TABLET 615730 AZITHROMYCIN Mara ctive ZITHROMAX 250 MG ORAL TABLET 2 po today, then 1 po q days 2-5 20 26/06/21 ZITHROMAX 250 MG ORAL TABLET 969336 AZITHROMYCIN Mara ctive ZITHROMAX 250 MG ORAL TABLET 2 po today, then 1 po q days 2-5 20 31/03/18 ZITHROMAX 250 MG ORAL TABLET 001427 AZITHROMYCIN [place] ctive ZITHROMAX Z-SANJANA 250 MG ORAL TABLET 2 today, then 1 daily for 4 d ays ZITHROMAX Z-SANJANA 250 MG ORAL TABLET 922878 AZITHROMYCIN Inactive AMOXICILLIN 500 MG ORAL CAPSULE Take 1 capsule by mout h three times a day X 10 days AMOXICILLIN 500 MG ORAL CAPSULE 616501 AMOX ICILLIN Inactive AMOXICILLIN-POT CLAVULANATE 875-125 MG ORAL TABLET 1 pill by mouth twice daily AMOXICILLIN-POT CLAVULANATE 875-125 MG ORAL TABL ET 149812 AMOXICILLIN-POT CLAVULANATE Inactive AUGMENTIN 875-125 MG ORAL TABLET Take one tablet twice a day with food AUGMENTIN 875-125 MG ORAL TABLET AMOXICILLIN-POT CLAVULANATE Inactive POLYTRIM 58748-1.1 UNIT/ML-% OPHTHALMIC SOLUTION 1 gtt to affected eye q3h x 7 days POLYTRIM 96191-2.1 UNIT/ML-% OPH THALMIC SOLUTION 616898 POLYMYXIN B-TRIMETHOPRIM Inactive MACROBID 100 MG ORAL CAPSULE 1 cap by mouth twice daily MACROBID 100 MG ORAL CAPSULE 4965312 NITROFURANTOIN MONOHYD MACRO In active Advance Directives [...] Fluarix, Agriflu(>= 18 yo)) Fluzone (>=3 yrs.) [[id number]] Influenza, seasonal, injec table Seasonal influenza vaccine, injectable, containing preservative, for > 3 years old (Afluria, FluLaval, Fluzone, Fluvirin, Fluarix, Agriflu(>= 18 yo)) Fluzone (>3 yrs.) [[id number]] Influenza, seasonal, inject able Seasonal influenza vaccine, injectable, containing preservative, for > 3 years old (Afluria, FluLaval, Fluzone, Fluvirin, Fluarix, Agriflu(>= 18 yo)) Fluarix (>3 yrs.) [[id number]] Influenza, seasonal, inject able Vital Signs Date [...] Magnesium - Chemistry sodium, serum 138 mmol/L 622-687 0155/09/02 carbon dioxide, venous blood 28.0 mmol/L 21.0-32 [...] 0.20 mg/dL 0.00-1.00 cholesterol, serum 228 mg/dL 136-125 2441/09/02 triglyceride, serum, fasting 236 mg/dL 30-200 HDL [...] 0.36-3.74 Encounters Code Encounter Date Provider Facility CPT-19506 [id number] Vst-Est Level III 17:07:11 CDT Jenny Yang APRN [facility] CPT-22188 [id number] Vst-Est Level III 17:51:44 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 [place] [facility] CPT-64236 Level 3 Est. Patient 11:09:39 CDT Viviana Rubio [facility]-04156 [id number] Vst-Est Level IV 09:14:31 CDT Conchis Yang [facility] [place] CPT-86830 [id number] Vst-Est Level III 22:05:50 CDT Jenny Yang [facility] [place] CPT-14489 Level 3 Est. Patient 15:00:02 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 Will Avi jarquin [facility] CPT-88994 Level 2 Est. Patient 13:46:20 CDT Ashley Meraz [facility] [place] [facility] [place] CPT-84879 Level 2 Est. Patient 13:45:36 CDT Ashley Meraz [facility] [place] [facility] [place] CPT-19441 Level 3 Est. Patient 15:52:07 CDT Ashley Kt [facility] [place] [facility] [place] CPT-12887 Level 3 Est. Patient 08:20:37 CDT Ashley Yoелена [facility] [place] [facility] [place] CPT-70155 Level 3 Est. Patient 15:06:41 CDT Derrick donaldson MD [facility] CPT-21600 Level 3 Est. Patient 11:13:21 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 Derrick donaldson MD [facility] CPT-05883 Level 3 Est. Patient 12:54:25 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 Ashley peacock [facility] [place] CPT-41112 Level 3 Est. Patient 23:34:49 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 Ashley peacock [facility] [place] CPT-16195 Level 3 Est. Patient 16:37:09 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 Ashley peacock [facility] [place] CPT-98030 Level 3 Est. Patient 11:59:30 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 Ashley Meraz [facility] [place] [facility] [place] CPT-12569 Level 4 Est. Patient 07:40:13 CDT Wayne delatorre [facility] [place] CPT-25964 Level 4 Est. Patient 08:06:[address] [facility] CPT-54227 Level 3 Est. Patient 11:14:45 CDT Wayne delatorre [facility] [place] CPT-30393 Level 3 Est. Patient 10:14:55 CDT Wayne delatorre [facility] CPT-24217 Level 4 Est. Patient 15:23:[address] [facility] CPT-32009 Level 3 Est. Patient 07:50:51 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 Wayne delatorre [facility] CPT-28266 Level 3 Est. Patient 14:47:[address] [facility] CPT-35580 Level 3 Est. Patient 11:28:46 CDT Wayne delatorre [facility] CPT-19743 Level 4 Est. Patient 14:48:[address] [facility] CPT-31700 Level 3 Est. Patient 14:10:18 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 Wayne delatorre [facility] [place] [facility] CPT-27926 Level 3 Est. Patient 16:44:33 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 [facility] CPT-39105 Level 4 Est. Patient 08:22:34 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 [facility] CPT-31339 Level 4 Est. Patient 07:10:[address] [facility] CPT-84890 Level 3 Est. Patient 14:50:20 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 Wayne delatorre [facility] [place] [facility] CPT-15627 Level 3 Est. Patient 09:46:08 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 Zuleika cha APRN [facility] [place] [facility] CPT-02414 Level 4 Est. Patient 07:56:24 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 Wayne delatorre [facility] CPT-85308 Level 3 Est. Patient 12:13:53 CDT Ismael Denton [facility] CPT-14917 Level 4 Est. Patient 12:28:51 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 [facility] CPT-72692 Level 3 Est. Patient 15:23:42 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 [facility] CPT-20182 Level 3 Est. Patient 06:34:33 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 [facility] Procedures Code Procedure Name Date Entry Date Standard Desc ription CPT-78752 Allergy Admin 2 16:32:35 CDT CPT-09322 Allergy Admin 2 16:26:27 CDT CPT-J3420 Vitamin B12 1000mcg (Cyanocobalamin) 16:32:13 CDT CPT-17935 Abx/Therapy Injection 16:32:13 CDT CPT-79911 Allergy Admin 2 16:32:12 CDT CPT-54737 Allergy Admin 2 16:05:03 CDT CPT-34493 Allergy Admin 2 16:35:15 CDT CPT-90804 Allergy Admin 2 16:20:41 CDT CPT-62314 Allergy Admin 2 11:25:21 CDT CPT-06710 Allergy Admin 2 15:46:12 CDT CPT-ES9337X (4274F) Influenza immunization administe red or previously received 17:51:44 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 CPT-80998 Spec Collection and Handling Fee 10:45:[address] CPT-[id number] (4274F) Influenza immunization administe red or previously received 10:20:17 CDT CPT-62561 Prv Med Est Pt 40-64yrs 16:26:57 CDT CPT-45277 Venipuncture Draw Fee 11:08:31 CDT CPT-62028 Magnesium - LAB USE ONLY 11:08:31 CDT 10/15 CPT-92872 TSH - LAB USE ONLY 11:08:31 CDT CPT-71175 Lipid - LAB USE ONLY 11:08:30 CDT 2 CPT-94075 CMP - LAB USE ONLY 11:08:30 CDT CPT-48785 CBC - LAB USE ONLY 11:08:30 CDT CPT-80531 Spec Collection and Handling Fee 16:14:51 C DT CPT-47062 UA w micro - LAB USE ONLY 16:14:51 CDT 2018 CPT-47374 Prv Med Est Pt 40-64yrs 08:34:49 CDT 10/01 CPT-76234 Sed Rate - LAB USE ONLY 10:50:49 CDT 10/02 CPT-90849 TSH - LAB USE ONLY 10:50:49 CDT CPT-72033 Lipid - LAB USE ONLY 10:50:49 CDT 0 CPT-08320 Magnesium - LAB USE ONLY 10:50:49 CDT 10/02 CPT-14821 CMP - LAB USE ONLY 10:50:49 CDT CPT-30894 CBC - LAB USE ONLY 10:50:49 CDT CPT-99163 Venipuncture Draw Fee 10:50:49 CDT CPT-28804 IV Hydration < or = 1 hr 22:05:50 CDT 04/16 CPT-J7030 Normal Saline 1000 mL 22:05:50 CDT CPT-96152 Abx/Therapy Injection 16:31:51 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 CPT-J2950 Phenergan 25 mg 16:31:51 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 CPT-75247 Abx/Therapy Injection 16:39:40 CDT CPT-34673 First Vx - Ix admin via ID I M or jet injects without counseling by physician 16:39:39 CDT CPT-27238 Prv Med Est Pt 40-64yrs 16:33:10 CDT 11/10 CPT-JTINJ Asp/Joint Injection 16:13:36 CDT CPT-77116 Allergy Admin 2 16:54:52 CDT CPT-50474 Allergy Admin 2 16:46:15 CDT CPT-43765 Allergy Admin 2 11:29:09 CDT CPT-29303 Allergy Admin 2 17:05:15 CDT CPT-47248 Allergy Admin 2 12:31:51 CDT CPT-78933 Allergy Admin 2 15:40:56 CDT CPT-53328 CBC - LAB USE ONLY 09:49:24 CDT CPT-67051 CMP - LAB USE ONLY 09:49:24 CDT CPT-46648 Lipid - LAB USE ONLY 09:49:24 CDT 8 CPT-02581 Venipuncture Draw Fee 09:49:24 CDT CPT-82369 Allergy Admin 2 10:46:11 CDT CPT-JTINJ Asp/Joint Injection 09:52:58 CDT CPT-14071 Skin tag rem 1-15 13:46:20 CDT CPT-77067 Knee, right, 3V - XRAY USE ONLY 13:07:09 CD T CPT-07258 Allergy Admin 2 11:56:38 CDT CPT-28148 Allergy Admin 2 12:00:55 CDT CPT-67626 Allergy Admin 2 16:42:13 CDT CPT-12683 Allergy Admin 2 16:27:55 T CPT-87359 Allergy Admin 2 13:24:26 CDT CPT-99319 Allergy Admin 2 17:17:57 [facility] [place] CPT-48046 Allergy Admin 2 16:23:22 [facility] [place] CPT-72734 Allergy Admin 2 16:26:55 [facility] [place] CPT-67380 Allergy Admin 2 16:32:33 [facility] [place] CPT-91752 Allergy Admin 2 17:43:40 [facility] [place] CPT-89355 Allergy Admin 2 16:26:07 [facility] [place] CPT-22113 Allergy Admin 2 12:31:50 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 CPT-06432 Allergy Admin 2 16:40:38 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 CPT-38084 Allergy Admin 2 17:07:36 CDT CPT-G0008 Administration of Influenza Virus Vaccine 17:01:01 CDT CPT-56254 First Vx - Ix admin via ID I M or jet injects without counseling by physician 17:01:01 CDT CPT-41807 Allergy Admin 2 12:06:54 CDT CPT-07570 Allergy Admin 2 17:04:46 CDT CPT-80841 Allergy Admin 2 16:34:48 CDT CPT-48092 Allergy Admin 2 17:04:51 CDT CPT-73056 Allergy Admin 2 16:25:14 CDT CPT-80314 Allergy Admin 2 10:52:02 CDT CPT-50972 Allergy Admin 2 11:45:31 CDT CPT-35872 Allergy Admin 2 12:02:20 CDT CPT-49501 Allergy Admin 2 15:47:29 CDT CPT-80925 Allergy Admin 2 13:25:44 CDT CPT-90594 Allergy Admin 2 10:51:13 CDT CPT-33125 CBC - LAB USE ONLY 10:44:39 CDT CPT-78707 CMP - LAB USE ONLY 10:44:39 CDT CPT-14898 Lipid - LAB USE ONLY 10:44:39 CDT 9 CPT-22116 Venipuncture Draw Fee 10:44:38 CDT CPT-05529 Allergy Admin 2 12:25:22 CDT CPT-27290 Allergy Admin 2 12:41:34 CDT CPT-01340 Allergy Admin 2 15:29:46 CDT CPT-61208 Allergy Admin 2 14:46:53 CDT CPT-14771 Allergy Admin 2 14:16:16 CDT CPT-18691 Allergy Admin 2 16:55:26 CDT CPT-33607 Allergy Admin 2 10:12:02 CDT CPT-71703 Allergy Admin 2 14:53:56 CDT CPT-74472 Allergy Admin 2 17:01:54 CDT CPT-66229 Allergy Admin 2 09:36:02 T CPT-67112 Allergy Admin 2 16:53:26 [facility] [place] CPT-63643 Allergy Admin 2 16:59:41 [facility] [place] CPT-03988 Allergy Admin 2 16:36:44 [facility] [place] CPT-05859 Allergy Admin 2 16:17:16 [facility] [place] CPT-49917 Allergy Admin 2 17:08:10 [facility] [place] CPT-32665 Allergy Admin 2 12:16:08 [facility] [place] CPT-60206 Allergy Admin 2 16:47:30 [facility] [place] CPT-44033 Allergy Admin 2 16:59:44 [facility] [place] CPT-94838 Allergy Admin 2 12:48:53 [facility] [place] CPT-38503 Allergy Admin 2 10:19:48 [facility] [place] CPT-25038 Allergy Admin 2 12:40:17 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 CPT-47066 Abx/Therapy Injection 17:21:59 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 CPT-81287 First Vx - Ix admin via ID I M or jet injects without counseling by physician 17:21:57 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 CPT-24312 Allergy Admin 2 17:20:12 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 CPT-49883 Allergy Admin 2 11:12:50 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 CPT-82153 Allergy Admin 2 17:02:39 CDT CPT-88204 BMP - LAB USE ONLY 10:33:02 CDT CPT-21366 CBC - LAB USE ONLY 10:33:02 CDT CPT-06869 Venipuncture Draw Fee 10:33:02 CDT CPT-13559 Abx/Therapy Injection 12:29:08 CDT CPT-10762 Allergy Admin 2 10:39:48 CDT CPT-27035 Allergy Admin 2 10:55:47 CDT CPT-PV Prev. Care Visit 10:10:00 CDT CPT-90612 Allergy Admin 2 11:31:20 CDT CPT-87541 Allergy Admin 2 16:53:45 CDT CPT-28837 Allergy Admin 2 16:36:42 CDT CPT-22737 Allergy Admin 2 16:30:19 CDT CPT-40253 Allergy Admin 2 15:39:35 CDT CPT-74644 Allergy Admin 2 17:51:32 CDT CPT-27699 Allergy Admin 2 11:50:50 CDT CPT-PV Prev. Care Visit 14:09:05 CDT CPT-50471 Allergy Admin 2 13:37:39 CDT CPT-47360 Abx/Therapy Injection 12:17:43 CDT CPT-16041 Venipuncture Draw Fee 10:39:55 CDT CPT-11171 Allergy Admin 2 12:04:53 CDT CPT-96828 Allergy Admin 2 10:04:39 CDT CPT-45760 Allergy Admin 2 12:15:35 CDT CPT-05672 Allergy Admin 2 17:04:36 CDT CPT-82515 Allergy Admin 2 16:25:49 CDT CPT-39812 Allergy Admin 2 17:30:06 CDT CPT-76090 Allergy Admin 2 10:11:48 CDT CPT-86941 Allergy Admin 2 17:06:13 CDT CPT-65143 Abx/Therapy Injection 12:23:07 CDT CPT-J0702 Celestone 12 mg (Betamethasone) 12:23:07 CD T CPT-10850 Venipuncture Draw Fee 10:26:42 CDT CPT-03082 Allergy Admin 2 12:10:01 CDT CPT-41668 Allergy Admin 2 15:13:57 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 CPT-10906 Allergy Admin 2 16:55:22 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 CPT-70089 Allergy Admin 2 10:13:46 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 CPT-58121 Venipuncture Draw Fee 10:06:08 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 CPT-10006 Allergy Admin 2 16:15:41 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 CPT-83682 Allergy Admin 2 16:40:21 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 CPT-43989 Allergy Admin 2 16:31:48 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 CPT-06440 Allergy Admin 2 16:38:26 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 CPT-13445 Allergy Admin 2 16:40:08 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 CPT-14510 Allergy Admin 2 08:34:27 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 CPT-76759 Allergy Admin 2 14:27:45 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 CPT-43061 Destruction bgn lsn up to 14 09:41:27 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 2 CPT-87681 Allergy Admin 2 17:45:17 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 CPT-09998 Allergy Admin 2 14:59:03 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 CPT-54423 Allergy Admin 2 12:49:42 CDT CPT-95698 Administration single or combination vac cine inc oral 15:01:57 CDT CPT-93647 Fluzone Quadrivalent Intramuscular Suspe nsion 0.5 ML 15:01:57 CDT CPT-91502 Allergy Admin 2 15:07:08 CDT CPT-90295 Allergy Admin 2 15:39:01 CDT CPT-24857 Allergy Admin 2 17:40:11 CDT CPT-28541 Allergy Admin 2 16:07:08 CDT CPT-09778 Allergy Admin 2 16:08:07 CDT CPT-73056 Venipuncture Draw Fee 09:34:29 CDT CPT-32609 Allergy Admin 2 16:27:43 CDT CPT-93800 Allergy Admin 2 15:53:10 CDT CPT-46805 Allergy Admin 2 15:42:29 CDT CPT-69996 Allergy Admin 2 11:26:14 CDT CPT-86206 Allergy Admin 2 10:36:24 CDT CPT-70585 Allergy Admin 2 16:53:37 CDT CPT-34640 Allergy Admin 2 11:21:44 CDT CPT-50155 Allergy Admin 2 10:50:40 CDT CPT-44617 Allergy Admin 2 11:19:11 CDT CPT-45419 Venipuncture Draw Fee 11:12:25 CDT CPT-89169 Allergy Admin 2 11:14:51 CDT CPT-80829 Allergy Admin 2 16:53:11 CDT CPT-67896 Allergy Admin 2 11:45:56 CDT CPT-82306 Allergy Admin 2 12:51:39 CDT CPT-91825 Allergy Admin 2 12:08:56 CDT CPT-07500 Allergy Admin 2 15:29:45 CDT CPT-16237 Allergy Admin 2 16:34:01 CDT CPT-84259 Allergy Admin 2 16:36:46 CDT CPT-56357 Allergy Admin 2 15:19:16 CDT CPT-24393 Allergy Admin 2 16:13:25 CDT CPT-13910 Allergy Admin 2 17:06:17 CDT CPT-89790 Allergy Admin 2 10:42:10 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 CPT-37343 Allergy Admin 2 17:33:16 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 CPT-54283 Allergy Admin 2 10:53:30 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 CPT-32896 Allergy Admin 2 14:18:24 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 CPT-84839 Allergy Admin 2 10:18:29 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 CPT-62742 Allergy Admin 2 12:57:40 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 CPT-79529 Allergy Admin 2 16:53:33 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 CPT-08092 Allergy Admin 2 12:43:00 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 CPT-45632 Allergy Admin 2 13:14:09 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 CPT-85944 Pneumovax 23 Injection Injectable 25 MCG /0.5ML 09:51:29 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 CPT-G0009 Administration of Pneumococcal Vaccine 09:51:29 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 CPT-11497 Influenza split virus > age 3 09:51:29 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 CPT-G0008 Administration of Influenza Virus Vaccine 02/23 09:51:29 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 CPT-73263 Venipuncture Draw Fee 10:31:06 CDT CPT-J0702 Celestone 12 mg (Betamethasone) 11:34:17 CD T CPT-39438 Abx/Therapy Injection 11:34:17 CDT CPT-55945 Chest 2V Frontal and Lat 11:31:47 CDT 07/04 CPT-86328 Venipuncture Draw Fee 11:31:47 CDT CPT-43514 Allergy Admin 2 14:31:05 CDT CPT-57384 EKG Trac and Interp 08:42:32 CDT CPT-59424 Chest 2V Frontal and Lat 08:42:32 CDT 05/28 CPT-68493 Venipuncture Draw Fee 08:39:02 CDT CPT-95623 Allergy Admin 2 16:59:09 CDT CPT-63477 Allergy Admin 2 17:06:11 CDT CPT-70572 Allergy Admin 2 16:04:36 CDT CPT-34082 Venipuncture Draw Fee 16:32:44 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 CPT-59124 Venipuncture Draw Fee 10:54:37 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 CPT-46121 Allergy Admin 2 14:53:55 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 CPT-40565 Allergy Admin 2 10:23:58 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 CPT-77373 First Vx Component - Ix admi n via ID IM or jet inj without physician counseling 15:34:26 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 CPT-49880 Fluzone (>=3 yrs.) 15:34:26 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 CPT-09163 Allergy Admin 2 15:56:02 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 CPT-93430 Allergy Admin 2 11:08:58 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 CPT-56848 Allergy Admin 2 10:51:36 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 CPT-16346 Allergy Admin 2 15:38:19 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 CPT-10035 Allergy Admin 2 15:12:46 CDT CPT-43729 Allergy Admin 2 10:28:50 CDT CPT-15277 Allergy Admin 2 16:35:33 CDT CPT-74228 Allergy Admin 2 10:14:18 CDT CPT-60589 Abx/Therapy Injection 09:06:45 CDT CPT-J0702 Celestone 6 mg (Betamethasone) 09:06:45 CDT CPT-19071 Allergy Admin 2 15:51:15 CDT CPT-61055 Allergy Admin 2 10:40:16 CDT CPT-40486 Allergy Admin 2 16:35:55 CDT CPT-06338 Allergy Admin 2 13:12:52 CDT CPT-98580 Allergy Admin 2 16:06:50 CDT CPT-82148 Allergy Admin 2 11:04:24 CDT CPT-10723 Allergy Admin 2 10:44:50 CDT CPT-75637 Allergy Admin 2 15:13:40 CDT CPT-15536 Allergy Admin 2 15:00:03 CDT CPT-58921 Allergy Admin 2 10:37:38 CDT CPT-11613 Venipuncture Draw Fee 09:16:43 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 CPT-25949 Allergy Admin 2 11:15:59 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 CPT-59378 Postop F/U Visit 10:10:52 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 CPT-43440 Allergy Admin 2 13:05:05 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 CPT-33945 Postop F/U Visit 19:45:16 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 CPT-77245 Allergy Admin 2 11:52:35 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 CPT-06655 Allergy Admin 2 10:49:22 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 CPT-OV Office Visit 13:55:55 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 CPT-16002 Allergy Admin 2 12:54:28 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 CPT-OV Office Visit 14:04:48 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 CPT-52017 Venipuncture Draw Fee 10:29:14 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 CPT-80141 Allergy Admin 2 11:24:43 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 CPT-17694 Knee 3V 11:00:12 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 CPT-70977 C-Spine Min 4V 11:00:12 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 CPT-75155 Allergy Admin 2 13:38:40 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 CPT-22007 Venipuncture Draw Fee 11:33:37 CDT CPT-77718 Allergy Admin 2 15:34:37 CDT CPT-18002 Allergy Admin 2 14:11:42 CDT CPT-31233 Administration single or combination vac cine inc oral 12:51:42 CDT CPT-85280 Influenza split virus > age 3 12:51:42 CDT CPT-04555 Allergy Admin 2 11:58:43 CDT CPT-05345 Allergy Admin 2 11:29:32 CDT CPT-11205 Allergy Admin 2 10:55:19 CDT CPT-59979 Allergy Admin 2 12:38:54 CDT CPT-96030 Allergy Admin 2 13:01:47 CDT CPT-08969 Abx/Therapy Injection 12:41:18 CDT CPT-J0702 Celestone 12 mg (Betamethasone) 12:41:18 CD T CPT-81909 Abx/Therapy Injection 16:33:09 CDT CPT-J0702 Celestone 12 mg (Betamethasone) 16:33:09 CD T CPT-67765 Allergy Admin 2 15:49:09 CDT CPT-92077 Allergy Admin 2 12:08:56 CDT CPT-43732 Allergy Admin 2 12:19:10 CDT CPT-30141 Allergy Admin 2 12:46:56 CDT CPT-70647 Allergy Admin 2 15:05:13 CDT CPT-81629 Allergy Admin 2 15:36:20 CDT CPT-41179 Allergy Admin 2 09:58:47 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 CPT-20572 Allergy Admin 2 12:18:06 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 CPT-44931 Allergy Admin 2 10:01:48 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 CPT-62405 Allergy Admin 2 12:17:53 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 CPT-54888 Allergy Admin 2 10:06:44 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 CPT-09043 Allergy Admin 2 10:13:04 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 CPT-45205 Venipuncture Draw Fee 10:09:07 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 CPT-98224 Bone Density 12:24:51 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 CPT-96026 Allergy Admin 2 11:29:41 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 CPT-74531 Allergy Admin 2 16:07:15 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 CPT-89445 Breathing Treatment 06:34:33 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 CPT-J0702 Celestone 12 mg (Betamethasone) 06:34:33 CS T CPT-84457 Abx/Therapy Injection 06:34:33 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 CPT-19435 Breathing Tx 11:07:33 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 CPT-96106 Allergy Admin 2 10:02:33 CDT CPT-16735 Allergy Admin 2 10:02:33 CDT CPT-54978 Allergy Admin 2 15:26:19 CDT CPT-69586 Administration single or combination vac cine inc oral 15:41:12 CDT CPT-52577 Influenza split virus > age 3 15:41:12 CDT
== END 2020-09-11 11:00 ==
LOC: SDC 05:56
PROVIDERS: ATTEND Podiatrist Foot & Ankle Surgery
DX: M72.2 Plantar fascial fibromatosis (principal); K21.9 Gastro-esophageal reflux disease without esophagitis; F32.9 Major depressive disorder, single episode, unspecified; F41.9 Anxiety disorder, unspecified; E78.5 Hyperlipidemia, unspecified; M19.90 Unspecified osteoarthritis, unspecified site; E66.9 Obesity, unspecified; Z89.022 Acquired absence of left finger(s); Z96.651 Presence of right artificial knee joint; Z68.26 Body mass index [BMI] 26.0-26.9, adult; Z79.899 Other long term (current) drug therapy
CPT/HCPCS: 87081